=== PATIENT | female | born 1950 | race Caucasian/White ===

== ENCOUNTER 2016-04-20 20:23 | Emergency (ER) | payer MEDICARE, OTHER ==
[~2016-04-20] VITALS: Ht 167.6 cm; Wt 91.6 kg
[~2016-04-20 20:23] MED LIST: AC325T PO; AMOX500C2 PO; ASP325TEC PO; ASP81TEC PO; ATOR40TA PO; ATOR40TA70 PO; ATOR80TA PO; BSP10T PO; BUSP10TA95 PO; CLOP75TA PO; DICY20TA57 PO; EXEN2VIA SQ; FLUO20CA25; FLUO40CA PO; GABA-488 PO; GBPN300C PO; HYDR-2890 PO; INSU100V16 SQ; ISM30TCR PO; ISM60TCR PO; LEVE1U SQ; LIRA0.6P SQ; LURA60TA2 PO; METF-380 PO; METF500T4 PO; METO25TA2 PO; METO50TA2 PO; MTF500T PO; MTP50T PO; NTR.4SL SL; OMEG-12 PO; OMEG300C3 PO; ONDA-42 SL; OXYB5TAB9 PO; PANT40SU PO; PANT40TA PO; PNT40TEC PO; PROP40TA5 PO; QUIN20TA15 PO; QUIN20TA27 PO; TERB250T10 PO; TRAM50TA2 PO; VENL150C PO; VIT E PO; VIT PO
[2016-04-20] MEDS ORDERED: LACTATED RINGERS 1,000 ML IV ONE (20:55)
[2016-04-20] MEDS ORDERED: ONDANSETRON 4 MG/2 ML (SDV) Z0FRAN IVP ONE (21:00)
[2016-04-20] MEDS ORDERED: NS IV 1000 ML 1,000 ML IV ONE (21:11)
--- NOTE | 2016-04-20 21:21 | ED General ---
General Chief Complaint: Abdominal/GI Problems Stated Complaint: HEADACHE,NAUSEA,VOMITING Nursing Triage Note: PT STATES NVD SINCE LAST NIGHT. RESP ISSUES FOR OVER A WEEK. Nursing Sepsis Screen: No Definite Risk Source of Information: Patient History of Present Illness Time Seen by Provider: 20:55 Initial Comments PT ARRIVES VIA POV FROM HOME PT WITH MULTIPLE COMPLAINTS STATES SHE HAS HAD NAUSEA AND VOMITING AND HEADACHE AND ABDOMINAL PAIN SINCE LAST PM PT HAS HISTORY OF MIGRAINES AND THIS IS THE SAME HAS BEEN DX WITH DIABETIC GASTROPARESIS AND IS TO HAVE A CT OF ABDOMEN TOMORROW FOR ONGOING ABDOMINAL PAIN AND NAUSEA AND VOMITING SEEN SENIOR TECHNICAL RECRUITER [facility] EMERY YESTERDAY FOR ROUTINE EXAM AND CT WAS ORDERED AND INSULIN AND BP MEDICATION DOSES WERE INCREASED PT HAS NOT CHECKED HER BLOOD SUGAR IN A COUPLE OF DAYS--STATES "I DIDN'T FEEL LIKE IT" PT HAS NOT TAKEN ANY OF HER MEDICATIONS YESTERDAY OR TODAY FOR THE SAME REASON HAS NOT TAKEN ANYTHING FOR PAIN PT ALSO STATES SHE HAS HAD NON-PRODUCTIVE OUGH AND CONGESTION X 2 WEEKS NO FEVER NO CHEST PAIN NO SHORTNESS OF BREATH NO SWELLING IN FEET/ANKLES OR PAIN IN CALVES PT STATES SHE HAS COPD BUT DOES NOT TAKE ANY MEDICATIONS, INHALERS/NEBULIZERS, ETC. PCP: CECY-GALEN, SAE EMERY Allergies and Home Medications Allergies Coded Allergies: NSAIDS (Non-Steroidal Anti-Inflamma (Verified Allergy, Unknown, 02/12/11) codeine (Verified Allergy, Unknown, 08/01/13) Home Medications 500 MG PO BID (Reported) Atorvastatin Calcium 40 Mg Tablet 40 MG PO HS (Reported) Buspirone Hcl 10 Mg Tab #360 10 MG PO TID (Reported) Cefdinir 300 Mg Capsule #20 300 MG PO BID Prescribed by: KATHY LAST on 04/21/16 0002 Exenatide Microspheres 2 Mg Vial 2 MG SQ UD (Reported) Fluoxetine Hcl 20 Mg Capsule #270 (Reported) Gabapentin 300 Mg Capsule #810 900 MG PO TID (Reported) Insulin Aspart 100 Unit/1 Ml Susp 20 UNIT SQ PRN (Reported) Insulin Determir 100 U/Ml Insuln.pen 42 UNITS SQ BID (Reported) Lurasidone HCl 60 Mg Tablet 60 MG PO DAILY (Reported) Metformin Hcl 500 Mg Tablet #180 500 MG PO BID (Reported) Methylprednisolone 4 Mg Tab.ds.pk #1 4 MG PO UD Prescribed by: KATHY LAST on 04/21/16 0002 Metoprolol Tartrate 50 Mg Tablet #180 50 MG PO BID (Reported) [place]-3 Fatty Acids 300 Mg Capsule 300 MG PO TID (Reported) Ondansetron 4 Mg Tab.rapdis #10 4 MG PO Q4H Prescribed by: KATHY LAST on 04/21/16 0002 Oxybutynin Chloride Unknown Strength Tablet 5 MG PO BID (Reported) Pantoprazole Sodium 40 Mg Tablet.dr #270 40 MG PO BID (Reported) Quinapril Hcl 20 Mg Tablet #90 20 MG PO DAILY (Reported) Venlafaxine HCl 150 Mg Cap.er.24h 150 MG PO DAILY (Reported) Constitutional: no symptoms reportedNo chills, No diaphoresis, No dizziness, No fever EENTM: nose congestion see HPI Respiratory: see HPI coughNo dyspnea on exertion, No orthopnea, No phlegm, No short of breath, No wheezing Cardiovascular: no symptoms reportedNo chest pain, No edema, No palpitations, No syncope Gastrointestinal: see HPI abdominal pain (LUQ)No diarrhea, loss of appetite nausea vomiting Genitourinary: no symptoms reported Musculoskeletal: no symptoms reportedNo back pain, No neck pain Skin: no symptoms reported Psychiatric/Neurological: See HPI HeadacheDenies Numbness, Denies Paresthesia , Denies Seizure, Denies Tingling, Denies Tremors, Denies Weakness Hematologic/Lymphatic: No Symptoms Reported Immunological/Allergic: no symptoms reported Past Tnwnctb-Gxyitw-Oeujwn Hx Patient Social History Alcohol Use: Denies Use Recreational Drug Use: No Smoking Status: Never a Smoker Recent Foreign Travel: No Contact w/Someone Who Travel: No Recent Infectious Disease Expo: No Recent Hopitalizations: No Immunizations Up To Date Date of Pneumonia Vaccine: Jan 27, 2012 Date of Influenza Vaccine: Dec 17, 2015 Seasonal Allergies Seasonal Allergies: No Surgeries HX Surgeries: Yes (BILATERAL KNEE SCOPES, R SHOULDER; HYST/BSO; TEETH REMOVED; CARDIAC CATHS--STENTS X 4) Surgeries: Appendectomy, Cardiac, Coronary Stent, Gallbladder, Hysterectomy, Oophorectomy, Orthopedic Respiratory Hx Respiratory Disorders: Yes (SLEEP APNEA-USES CPAP) Respiratory Disorders: Sleep Apnea, COPD Cardiovascular Hx Cardiac Disorders: Yes (STENT PLACEMENT X4) Cardiac Disorders: Coronary Artery Disease, Heart Attack, High Cholesterol, Hypertension Neurological Hx Neurological Disorders: Yes Neurological Disorders: Headaches /Migraines, Neuropathy Reproductive System Hx Reproductive Disorders: No [employer] History: Hysterectomy, Menopausal Genitourinary Hx Genitourinary Disorders: No Gastrointestinal Hx Gastrointestinal Disorders: Yes Gastrointestinal Disorders: Gastroesophageal Reflux, Diverticulosis Musculoskeletal Hx Musculoskeletal Disorders: Yes ("COMPRESSED DISCS IN BACK" PER PT) Musculoskeletal Disorders: Degenerate Disk Disease, Chronic Back Pain Endocrine Hx Endocrine Disorders: Yes Endocrine Disorders: Diabetes, Insulin dep HEENT HX ENT Disorders: No Cancer Hx Cancer: No Psychosocial Hx Psychiatric Problems: Yes Behavioral Health Disorders: Anxiety, Depression Integumentary HX Skin/Integumentary Disorder: No Blood Transfusions Hx Blood Disorders: No Family Medical History Family Medial History: Cancer 19 MOTHER Cancer of colon 19 MOTHER Cataract 19 MOTHER Chest pain G8 SISTER Family history: Arthritis 19 FATHER 19 MOTHER G8 SISTER Family history: Cardiovascular disease 19 FATHER 19 MOTHER Family history: Gastrointestinal disease 19 MOTHER Family history: Hypertension 19 MOTHER Family history: Osteoporosis 19 MOTHER Family history: Thyroid disorder G8 SISTER Headache 19 FATHER 19 MOTHER G8 SISTER Hearing loss 19 MOTHER Heart disease 19 FATHER History of - respiratory disease G8 SISTER Hypercholesterolemia 19 FATHER 19 MOTHER Visual impairment 19 MOTHER No Family History of: Abdominal aortic aneurysm Dare's disease Alcoholism Aphasia Congenital heart disease Congestive heart failure Cystic fibrosis Dementia Dysphagia Family history: Allergy Family history: Alzheimer's disease Family history: Asthma Family history: Breast disease Family history: Coronary thrombosis Family history: Glaucoma Hereditary disease History of - anemia History of - disorder History of drug abuse Human immunodeficiency virus (HIV) seropositivity Infertile Kidney disease Malignant neoplasm of lung Myocardial infarction Parkinson's disease Prostate cancer Psychotic disorder Seizure disorder Stroke Tuberculosis Physical Exam Vital Signs Vital Sign - Last 12Hours 04/20/16 04/20/16 20:58 21:05 Temp 97.2 Pulse 114 Resp 22 B/P 164/89 Pulse Ox 94 O2 Delivery Room Air O2 Flow Rate 2 Capillary Refill : Less Than 3 Seconds General Appearance: Obese Other (EXTREMELY DRAMATIC--WAILING AND MOANING VERY LOUDLY CONTINUOUSLY-STOPS WHEN DISTRACTED. DOES NOT MAKE EYE CONTACT--KEEPS A STUFFED ANIMAL OVER HER EYES. BUT NOT ACTUALLY PHOTOPHOBIC WHEN THIS IS REMOVED. ) HEENT: PERRL/EOMINo Photophobia, Other (EDENTULOUS. ORAL MUCOSA MOIST) Neck: Full Range of Motion Normal Inspection Non Tender Supple Respiratory: Normal Breath Sounds No Accessory Muscle Use No Respiratory Distress Cardiovascular: No Edema No JVD No Murmur Normal Peripheral Pulses Tachycardia Gastrointestinal: Normal Bowel Sounds No Organomegaly No Pulsatile Mass Soft Tenderness (LUQ) Back: Normal Inspection No CVA Tenderness No Vertebral Tenderness Extremity: Normal Capillary Refill Normal Inspection Normal Range of Motion Non Tender No Calf Tenderness No Pedal Edema Neurologic/Psychiatric: Alert Oriented x3 No Motor/Sensory Deficits staff trainer II- XII Norm as Tested Skin: Normal ColorNo Rash Progress/Results/Core Measures Results/Orders Lab Results Laboratory Tests Test 04/20/16 21:15 04/20/16 21:25 Range/Units Activated Partial Thromboplast Time 29 24-35 SEC Alanine Aminotransferase (ALT/SGPT) 55 0-55 U/L Albumin 4.2 3.2-4.5 G/DL Alkaline Phosphatase 51 40-136 U/L Amylase Level 25 25-125 U/L Anion Gap 17 H 5-14 MMOL/L Aspartate Amino Transf (AST/SGOT) 40 H 5-34 U/L BUN/Creatinine Ratio 10 Basophils # (Auto) 0.0 0.0-0.1 10^3/uL Basophils (%) (Auto) 0 0-10 % Blood Urea Nitrogen 9 7-18 MG/DL Calcium Level 9.2 8.5-10.1 MG/DL Carbon Dioxide Level 17 L 21-32 MMOL/L Chloride Level 102 98-107 MMOL/L Creatinine 0.87 0.60-1.30 MG/DL Eosinophils # (Auto) 0.0 0.0-0.3 10^3/uL Eosinophils (%) (Auto) 0 0-10 % Estimat Glomerular Filtration Rate > 60 Glucometer 328 H 70-110 MG/DL Glucose Level 346 H 70-105 MG/DL Hematocrit 39 35-52 % Hemoglobin 12.7 11.5-16.0 G/DL INR Comment 1.0 0.8-1.4 Lactic Acid Level 1.4 0.5-2.0 MMOL/L Lipase 14 8-78 U/L Lymphocytes # (Auto) 0.5 L 1.0-4.0 X 10^3 Lymphocytes (%) (Auto) 9 L 12-44 % Magnesium Level 1.7 L 1.8-2.4 MG/DL Mean Corpuscular Hemoglobin 30 25-34 PG Mean Corpuscular Hemoglobin Concent 33 32-36 G/DL Mean Corpuscular Volume 92 80-99 FL Mean Platelet Volume 10.0 7.4-10.4 FL Monocytes # (Auto) 0.6 0.0-1.0 X 10^3 Monocytes (%) (Auto) 10 0-12 % Neutrophils # (Auto) 4.6 1.8-7.8 X 10^3 Neutrophils (%) (Auto) 80 H 42-75 % Platelet Count 196 130-400 10^3/uL Potassium Level 3.6 3.6-5.0 MMOL/L Prothrombin Time 12.7 12.2-14.7 SEC Red Blood Count 4.18 L 4.35-5.85 10^6/uL Red Cell Distribution Width 12.7 10.0-14.5 % Sodium Level 136 135-145 MMOL/L Total Bilirubin 0.5 0.1-1.0 MG/DL Total Protein 7.6 6.4-8.2 G/DL White Blood Count 5.7 4.3-11.0 10^3/uL Urine Bacteria TRACE /HPF Urine Bilirubin NEGATIVE NEGATIVE Urine Casts PRESENT /LPF Urine Clarity CLEAR Urine Color YELLOW Urine Crystals NONE /LPF Urine Culture Indicated NO Urine Glucose (UA) 4+ H NEGATIVE Urine Granular Casts RARE /LPF Urine Hyaline Casts 2-5 H /LPF Urine Ketones 4+ H NEGATIVE Urine Leukocyte Esterase NEGATIVE NEGATIVE Urine Mucus NEGATIVE /LPF Urine Nitrite NEGATIVE NEGATIVE Urine Protein 2+ H NEGATIVE Urine RBC NONE /HPF Urine RBC (Auto) 2+ H NEGATIVE Urine Specific [place] 1.020 1.016-1.022 Urine Squamous Epithelial Cells RARE /HPF Urine Urobilinogen NORMAL NORMAL MG/DL Urine WBC NONE /HPF Urine pH 5 5-9 Micro Results Microbiology 04/20/16 Influenza Types A,B Antigen (TREVER) - Final, Complete My Orders Orders-KATHY LAST DO Saline Lock/Iv-Start (04/20/16 20:55) Monitor-Rhythm Ecg Trace Only (04/20/16 20:55) Amylase (04/20/16 20:55) Cbc With Automated Diff (04/20/16 20:55) Comprehensive Metabolic Panel (04/20/16 20:55) Lactic Acid Analyzer (04/20/16 20:55) Lipase (04/20/16 20:55) Magnesium (04/20/16 20:55) Ua Culture If Indicated (04/20/16 20:55) Blood Culture (04/20/16 20:55) Influenza A And B Antigens (04/20/16 20:55) Ondansetron Injection (Zofran Injectio (04/20/16 21:00) Saline Lock/Iv-Start (04/20/16 20:55) Lactated Ringers (Lr 1000 Ml Iv Solution (04/20/16 20:55) Accucheck Stat ONCE (04/20/16 21:08) Ekg Tracing (04/20/16 21:08) O2 (04/20/16 21:08) Protime With Inr (04/20/16 21:08) Partial Thromboplastin Time (04/20/16 21:08) Saline Lock/Iv-Start (04/20/16 21:11) Ns Iv 1000 Ml (Sodium Chloride 0.9%) (04/20/16 21:11) Ct Abdomen/Pelvis W (04/20/16 21:52) Ct Head Wo (04/20/16 21:52) Chest Pa/Lat (2 View) (04/20/16 21:52) Iohexol Injection (Omnipaque 350 Mg/Ml 1 (04/20/16 22:00) Ns (Ivpb) (Sodium Chloride 0.9% Ivpb Bag (04/20/16 22:00) Insulin (Regular) Human (Humulin R (Per (04/20/16 22:45) Insulin (Regular) Human (Humulin R (Per (04/20/16 22:45) Morphine Injection (Morphine Injection (04/20/16 22:56) Ceftriaxone Injection (Rocephin Injectio (04/20/16 23:45) Methylprednisolone Sod Succ (Solu-Medrol (04/20/16 23:33) Rx-Tramadol Hcl (Rx-Ultram) (04/20/16 23:57) Rx-Ondansetron Po (Rx-Zofran Po) (04/20/16 23:57) Accucheck Stat ONCE (04/20/16 23:57) Medications Given in ED Current Medications Medications Dose Ordered Sig/Hilda Route Start Time Stop Time Status Last Admin Dose Admin Ceftriaxone Sodium/Sodium Chloride 50 ml @ 100 mls/hr ONCE ONCE IV 04/20/16 23:45 04/21/16 00:14 DC 04/20/16 23:43 100 MLS/HR Insulin Human Regular 15 unit 15 unit ONCE ONCE IV 04/20/16 22:45 04/20/16 22:46 DC 04/20/16 23:12 15 UNIT Iohexol 100 ml ONCE ONCE IV 04/20/16 22:00 04/21/16 00:54 DC 04/20/16 22:16 100 ML Ondansetron HCl 4 mg 4 mg ONCE ONCE IVP 04/20/16 21:00 04/20/16 21:01 DC 04/20/16 21:32 4 MG Sodium Chloride 100 ml ONCE ONCE IV 04/20/16 22:00 04/21/16 00:54 DC 04/20/16 22:16 100 ML Sodium Chloride 1,000 ml @ 0 mls/hr Q0M ONCE IV 04/20/16 21:11 04/20/16 21:12 DC 04/20/16 21:32 1,000 MLS/HR Vital Signs/I&O Vital Sign - Last 12Hours 04/20/16 04/20/16 04/21/16 20:58 21:05 00:20 Temp 97.2 Pulse 114 108 Resp 22 16 B/P 164/89 Pulse Ox 94 93 97 O2 Delivery Room Air Nasal Cannula O2 Flow Rate 2 Blood Pressure Mean: 114 Point of Care Testing Finger Stick Blood Glucose: 328 Blood Glucose Action Taken: INFORMED Progress Note : Progress Note ACCUCHECK 348 ON ARRIVAL 2244--WAILING AND MOANING AGAIN--C/O "MIGRAINE" AND LEFT SIDE PAIN--MIGRAINES ARE CHRONIC AND ABDOMINAL PAIN IS ONGOING ISSUE AND NEITHER ARE ACUTE PAIN EASED AT DISMISSAL NO VOMITING DURING ENTIRE ER STAY Diagnostic Imaging Comments CT HEAD--NO ACUTE PROCESS, MILD ETHMOID SINUS DISEASE--PER [facility] VIA FAX @ 9199 CT ABDOMEN/ PELVIS--NO ACUTE PROCESS, DIVERTICULAR DISEASE, FATTY LIVER, SMALL HIATAL HERNIA--PER [facility] VIA FAX @ [id number] Reviewed: Reviewed by Me Departure Impression Impression: Primary Impression: Bronchitis Additional Impressions: Nausea & vomiting H/O diabetic gastroparesis Headache Disposition: HOME, SELF-CARE (ERASED) Condition: Improved Departure-Patient Inst. Referrals: THERON CHAMPION MD (PCP/Family) Primary Care Physician Patient Instructions: Acute Bronchitis, Adult (DC), Diabetes and Infections, Gastroparesis (Delayed Gastric Emptying) (DC), Nausea and Vomiting, Adult (DC), Sick Day Management for Diabetics Add. Discharge Instructions: LOTS OF CLEAR LIQUIDS--WATER, BROTH, JELLO, GATORADE TOMORROW IF YOU ARE BETTER, ADD BRATS DIET TO CLEAR LIQUIDS TAKE YOUR MEDICATIONS PRESCRIBED--DO NOT MISS DOSES OF MEDICATIONS CHECK YOUR BLOOD SUGAR 4 TIMES A DAY--BEFORE EACH MEAL AND AT BEDTIME--KEEP DIARY TYLENOL NEEDED FOR PAIN FOLLOW UP WITH [facility] IN 2-3 DAYS FOR FURTHER CARE All discharge instructions reviewed with patient and/or family. Voiced understanding. Scripts Ondansetron (Zofran Odt)4 Mg Tab.rapdis4 Mg PO Q4H Nausea/Vomiting #10 TAB Prov:KATHY LAST DO 04/21/16 Methylprednisolone (Medrol)4 Mg Tab.ds.pk4 Mg PO UD #1 PKG Prov:KATHY LAST DO 04/21/16 Cefdinir 300 Mg [id number] Mg PO BID FOR INFECTION #20 CAP Prov:KATHY LAST DO 04/21/16 KATHY LAST DO Apr 20, 2016 21:21
[2016-04-20 21:24] LABS: BASOPHILS % (AUTO) 0 % (0-10); EOSINOPHILS % (AUTO) 0 % (0-10); LYMPHOCYTES # (AUTO) 0.5 X 10^3 (1.0-4.0); LYMPHOCYTES % (AUTO) 9 % (12-44); MEAN CORPUSCULAR HEMOGLOBIN 30 PG (25-34); MEAN CORPUSCULAR HGB CONC 33 G/DL (32-36); MEAN CORPUSCULAR VOLUME 92 FL (80-99); MONOCYTES # (AUTO) 0.6 X 10^3 (0.0-1.0); MONOCYTES % (AUTO) 10 % (0-12); NEUTROPHILS # (AUTO) 4.6 X 10^3 (1.8-7.8); NEUTROPHILS % (AUTO) 80 % (42-75); PLATELET COUNT 196 10^3/uL (130-400); RED BLOOD COUNT 4.18 10^6/uL (4.35-5.85); RED CELL DISTRIBUTION WIDTH 12.7 % (10.0-14.5); WHITE BLOOD COUNT 5.7 10^3/uL (4.3-11.0)
[2016-04-20 21:37] LABS: PROTHROMBIN TIME PATIENT 12.7 SEC (12.2-14.7)
[2016-04-20 21:45] LABS: BILIRUBIN,URINE NEGATIVE (NEGATIVE); KETONES,URINE 4+ (NEGATIVE); LEUKOCYTE ESTERASE ,URINE NEGATIVE (NEGATIVE); NITRITE,URINE NEGATIVE (NEGATIVE); PH,URINE 5 (5-9); PROTEIN,URINE 2+ (NEGATIVE); UROBILINOGEN,URINE NORMAL (NORMAL)
[2016-04-20 21:46] LABS: ALANINE AMINOTRANSFERASE 55 U/L (0-55); ALBUMIN 4.2 G/DL (3.2-4.5); AMYLASE 25 U/L (25-125); ANION GAP 17 MMOL/L (5-14); ASPARTATE AMINO TRANSFERASE 40 U/L (5-34); BILIRUBIN,TOTAL 0.5 MG/DL (0.1-1.0); BLOOD UREA NITROGEN 9 MG/DL (7-18); BUN/CREATININE RATIO 10; CALCIUM 9.2 MG/DL (8.5-10.1); CARBON DIOXIDE 17 MMOL/L (21-32); CHLORIDE 102 MMOL/L (98-107); CREATININE SERUM 0.87 MG/DL (0.60-1.30); GFR ESTIMATED > 60; GLUCOSE 346 MG/DL (70-105); LIPASE 14 U/L (8-78); MAGNESIUM 1.7 MG/DL (1.8-2.4); POTASSIUM 3.6 MMOL/L (3.6-5.0); SODIUM 136 MMOL/L (135-145); TOTAL PROTEIN 7.6 G/DL (6.4-8.2)
[2016-04-20 21:53] LABS: GRANULAR CASTS,URINE RARE /LPF; SQUAMOUS EPITHELIAL CELL,UR RARE /HPF
[2016-04-20] MEDS ORDERED: IOHEXOL 350 MG/ML 100 ML (OMNIPAQUE 350) VIAL IV ONE (22:00)
[2016-04-20] MEDS ORDERED: NS 100 ML (IVPB) BAG IV ONE (22:00)
[2016-04-20] MEDS ORDERED: inSUlin (REGULAR) HUMAN 1 UNIT/0.01 ML (CHARGE PER UNIT) IV ONE ×2 (22:45)
[2016-04-20] MEDS ORDERED: morphine INJ 10 MG/ML 1ML (SYR OR VIAL) IVP STA (22:56)
[2016-04-20] MEDS ORDERED: methylPREDNISolone 125 MG (Solu-MEDROL) VIAL IV STA (23:33)
[2016-04-20] MEDS ORDERED: cefTRIAXone INJECTION 1,000 MG in NS (IVPB) 50 ML IV ONE (23:45)
[2016-04-20] MEDS ORDERED: RX-TRAMADOL 50 MG (ULTRAM) TAB PPK#4 PO STA (23:57)
[2016-04-20] MEDS ORDERED: RX-ONDANSETRON 4 MG ODT (ZOFRAN) PPK #4 PO STA (23:57)
[2016-04-21] MEDS ORDERED: CEFD300C3 PO (00:02)
[2016-04-21] MEDS ORDERED: METH4TAB PO (00:02)
[2016-04-21] MEDS ORDERED: ONDA4TAB8 PO (00:02)
[2016-04-21 00:20] VITALS: BP 140/75
--- NOTE | 2016-04-21 07:46 | Diagnostic Imaging Report ---
PROCEDURE: CT abdomen and pelvis with contrast. TECHNIQUE: Multiple contiguous axial images were obtained through the abdomen and pelvis after administration of intravenous contrast. INDICATION: Abdominal pain with nausea and emesis There is minimal dependent atelectasis in the lung bases. Low density seen throughout the liver without focal hepatic or splenic abnormality. Gallbladder surgically absent. There is no evidence of pancreatic, adrenal or renal lesion. There is moderate aortoiliac atherosclerotic calcification. No evidence of free fluid or abscess in the abdomen or pelvis. There are occasional sigmoid diverticula. No pericolonic inflammation is seen. IMPRESSION: Fatty infiltration of the liver without CT evidence of acute abdominal or pelvic abnormality. Dictated by: Dictated on workstation # [id number]
--- NOTE | 2016-04-21 07:47 | Diagnostic Imaging Report ---
PROCEDURE: CT head without contrast. TECHNIQUE: Multiple contiguous axial images were obtained through the brain without the use of intravenous contrast. INDICATION: Headaches. FINDINGS: Ventricles and sulci are prominent. There is low-density in the white matter of both hemispheres. No hemorrhage is identified. There is no territorial infarct. Calvarium is intact. There is no paranasal sinus air-fluid level. IMPRESSION: No CT evidence of acute intracranial abnormality. Dictated by: Dictated on workstation # [id number]
--- NOTE | 2016-04-21 08:10 | Diagnostic Imaging Report ---
INDICATION: Cough and shortness of breath PA and lateral chest obtained at 1018 PM. Heart and mediastinal silhouette are normal in appearance. The lungs are clear. There is no pneumothorax or pleural fluid. IMPRESSION: Negative chest. Dictated by: Dictated on workstation # [id number]
== END 2016-04-21 00:20 | disposition home or self-care (01) ==
LOC: EDUNIT# 20:23 → ER 20:24
DX: J40 Bronchitis, not specified as acute or chronic (principal); R11.2 Nausea with vomiting, unspecified; R51 Headache; K57.30 Diverticulosis of large intestine without perforation or abscess without bleeding; K76.0 Fatty (change of) liver, not elsewhere classified; E11.9 Type 2 diabetes mellitus without complications; I10 Essential (primary) hypertension; J44.9 Chronic obstructive pulmonary disease, unspecified; K44.9 Diaphragmatic hernia without obstruction or gangrene; Z79.4 Long term (current) use of insulin; Z79.84 Long term (current) use of oral hypoglycemic drugs; Z79.899 Other long term (current) drug therapy; Z95.5 Presence of coronary angioplasty implant and graft
CPT/HCPCS: 36415; 70450; 71020; 74177; 80053; 81000; 82150; 82962; 83605; 83690; 83735; 85025; 85610; 85730; 87040; 87804; 93005; 93041; 96365; 96375

== ENCOUNTER 2016-05-07 16:49 | Emergency (ER) | payer MEDICARE, OTHER ==
[~2016-05-07] VITALS: Ht 170.2 cm; Wt 91.6 kg
[~2016-05-07 16:49] MED LIST changes: +CEFD300C3 PO; +METH4TAB PO; +ONDA4TAB8 PO
--- NOTE | 2016-05-07 17:21 | ED GU-Female ---
General Chief Complaint: Abdominal/GI Problems Stated Complaint: LOWER R QUAD PAIN Nursing Triage Note: PT CO OF CONSTIPATION FOR 1 WEEK, PT STATES HAS HAD ENEMA,MAG CITRATE W NO RELIEF, PT CO OF ABD PAIN, STATES BARELY PASSING GAS Nursing Sepsis Screen: No Definite Risk Source: patient Exam Limitations: no limitations History of Present Illness Time seen by provider: 17:21 Initial Comments 65-year-old female patient presents to the emergency department with complaints of constipation for approximately one week. Patient reports trying over-the- counter enemas and magnesium citrate without improvement in symptoms. Now complains of abdominal pain and bloating. Timing/Duration: week, getting worse Severity/Quality: aching, cramping Location: other (generalized abdomen.) Radiation: none Activities at Onset: none Prior Genitourinary Problems: similar symptoms Modifying Factors: Worsens With Movement, Worsens With Palpation Allergies and Home Medications Allergies Coded Allergies: NSAIDS (Non-Steroidal Anti-Inflamma (Verified Allergy, Unknown, 02/12/11) codeine (Verified Allergy, Unknown, 08/01/13) Home Medications 500 MG PO BID (Reported) Atorvastatin Calcium 40 Mg Tablet 40 MG PO HS (Reported) Buspirone Hcl 10 Mg Tab #360 10 MG PO TID (Reported) Exenatide Microspheres 2 Mg Vial 2 MG SQ UD (Reported) Fluoxetine Hcl 20 Mg Capsule #270 (Reported) Gabapentin 300 Mg Capsule #810 900 MG PO TID (Reported) Insulin Aspart 100 Unit/1 Ml Susp 20 UNIT SQ PRN (Reported) Insulin Determir 100 U/Ml Insuln.pen 42 UNITS SQ BID (Reported) Lidocaine 15 Gm Cream..g. #1 15 GM TP UD PRN PRN PAIN Apply to the anus every 6 hours when necessary pain Prescribed by: NAMITA ALANIZ on 05/07/162037 Lurasidone HCl 60 Mg Tablet 60 MG PO DAILY (Reported) Metformin Hcl 500 Mg Tablet #180 500 MG PO BID (Reported) Metoprolol Tartrate 50 Mg Tablet #180 50 MG PO BID (Reported) [place]-3 Fatty Acids 300 Mg Capsule 300 MG PO TID (Reported) Ondansetron 8 Mg Tab.rapdis #10 8 MG PO Q6H PRN PRN NAUSEA Prescribed by: NAMITA ALANIZ on 05/07/162037 Oxybutynin Chloride Unknown Strength Tablet 5 MG PO BID (Reported) Pantoprazole Sodium 40 Mg Tablet. #270 40 MG PO BID (Reported) Polyethylene Glycol 3350 119 Gm Powder #1 17 GM PO HS PRN PRN CONSTIPATION Prescribed by: NAMITA ALANIZ on 05/07/162037 Quinapril Hcl 20 Mg Tablet #90 20 MG PO DAILY (Reported) Venlafaxine HCl 150 Mg Cap.er.24h 150 MG PO DAILY (Reported) Constitutional: No diaphoresis, No fever, No malaise, No weakness Respiratory: No cough, No short of breath Cardiovascular: No chest pain, No palpitations, No syncope Gastrointestinal: see HPI abdominal pain constipationNo diarrhea, No hematemesis, No melena, No nausea, No vomiting Genitourinary: denies burning, denies dysuria, denies frequency, denies flank pain, denies hematuria Musculoskeletal: no symptoms reported Skin: no symptoms reported Psychiatric/Neurological: No Symptoms Reported All Other Systemes Reviewed Negative Unless Noted: Yes (Negative excepted noted.) Past Dctzqqs-Zhhvrf-Pllxfj Hx Patient Social History Alcohol Use: Denies Use Recreational Drug Use: No Smoking Status: Never a Smoker Recent Foreign Travel: No Contact w/Someone Who Travel: No Recent Infectious Disease Expo: No Recent Hopitalizations: No Immunizations Up To Date Date of Pneumonia Vaccine: Jan 27, 2012 Date of Influenza Vaccine: Dec 17, 2015 Seasonal Allergies Seasonal Allergies: No Surgeries HX Surgeries: Yes Surgeries: Appendectomy, Cardiac, Coronary Stent, Gallbladder, Hysterectomy, Oophorectomy, Orthopedic Respiratory Hx Respiratory Disorders: Yes (SLEEP APNEA-USES CPAP) Respiratory Disorders: Sleep Apnea, COPD Cardiovascular Hx Cardiac Disorders: Yes (STENT PLACEMENT X4) Cardiac Disorders: Coronary Artery Disease, Heart Attack, High Cholesterol, Hypertension Neurological Hx Neurological Disorders: Yes Neurological Disorders: Headaches /Migraines, Neuropathy Reproductive System Hx Reproductive Disorders: 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, 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 Genitourinary Hx Genitourinary Disorders: No Gastrointestinal Hx Gastrointestinal Disorders: Yes Gastrointestinal Disorders: Gastroesophageal Reflux, Diverticulosis Musculoskeletal Hx Musculoskeletal Disorders: Yes ("COMPRESSED DISCS IN BACK" PER PT) Musculoskeletal Disorders: Degenerate Disk Disease, Chronic Back Pain Endocrine Hx Endocrine Disorders: Yes Endocrine Disorders: Diabetes, Insulin dep HEENT HX ENT Disorders: No Cancer Hx Cancer: No Psychosocial Hx Psychiatric Problems: Yes Behavioral Health Disorders: Anxiety, Depression Integumentary HX Skin/Integumentary Disorder: No Blood Transfusions Hx Blood Disorders: No Reviewed Nursing Assessment Reviewed/Agree w Nursing PMH: Yes Family Medical History Significant Family History: No Pertinent Family Hx Family Medial History: Cancer 19 MOTHER Cancer of colon 19 MOTHER Cataract 19 MOTHER Chest pain G8 SISTER Family history: Arthritis 19 FATHER 19 MOTHER G8 SISTER Family history: Cardiovascular disease 19 FATHER 19 MOTHER Family history: Gastrointestinal disease 19 MOTHER Family history: Hypertension 19 MOTHER Family history: Osteoporosis 19 MOTHER Family history: Thyroid disorder G8 SISTER Headache 19 FATHER 19 MOTHER G8 SISTER Hearing loss 19 MOTHER Heart disease 19 FATHER History of - respiratory disease G8 SISTER Hypercholesterolemia 19 FATHER 19 MOTHER Visual impairment 19 MOTHER No Family History of: Abdominal aortic aneurysm Mandan's disease Alcoholism Aphasia Congenital heart disease Congestive heart failure Cystic fibrosis Dementia Dysphagia Family history: Allergy Family history: Alzheimer's disease Family history: Asthma Family history: Breast disease Family history: Coronary thrombosis Family history: Glaucoma Hereditary disease History of - anemia History of - disorder History of drug abuse Human immunodeficiency virus (HIV) seropositivity Infertile Kidney disease Malignant neoplasm of lung Myocardial infarction Parkinson's disease Prostate cancer Psychotic disorder Seizure disorder Stroke Tuberculosis Physical Exam Vital Signs Vital Sign - Last 12Hours 05/07/16 17:00 Temp 97.1 Pulse 106 Resp 20 B/P 122/72 Pulse Ox 98 Capillary Refill : Less Than 3 Seconds General Appearance: WD/WN no apparent distress HEENT: PERRL/EOMI pharynx normal Neck: supple normal inspection Cardiovascular: regular rate, rhythm no edema no murmur Respiratory: lungs clear normal breath sounds no respiratory distress Gastrointestinal: distended guarding (generalized)No rebound, tenderness ( generalized) Back: normal inspection Extremities: no pedal edema normal capillary refill Neurologic/Psychiatric: alert normal mood/affect oriented x 3 Skin: normal color warm/dry Progress/Results/Core Measures Results/Orders Lab Results Laboratory Tests Test 05/07/16 18:08 05/07/16 19:59 Range/Units Alanine Aminotransferase (ALT/SGPT) 108 H 0-55 U/L Albumin 4.0 3.2-4.5 G/DL Alkaline Phosphatase 63 40-136 U/L Anion Gap 14 5-14 MMOL/L Aspartate Amino Transf (AST/SGOT) 48 H 5-34 U/L BUN/Creatinine Ratio 11 Basophils # (Auto) 0.0 0.0-0.1 10^3/uL Basophils (%) (Auto) 0 0-10 % Blood Urea Nitrogen 10 7-18 MG/DL Calcium Level 9.7 8.5-10.1 MG/DL Carbon Dioxide Level 20 L 21-32 MMOL/L Chloride Level 102 98-107 MMOL/L Creatinine 0.87 0.60-1.30 MG/DL Eosinophils # (Auto) 0.2 0.0-0.3 10^3/uL Eosinophils (%) (Auto) 2 0-10 % Estimat Glomerular Filtration Rate > 60 Glucose Level 258 H 70-105 MG/DL Hematocrit 39 35-52 % Hemoglobin 12.9 11.5-16.0 G/DL Lipase 17 8-78 U/L Lymphocytes # (Auto) 1.8 1.0-4.0 X 10^3 Lymphocytes (%) (Auto) 15 12-44 % Mean Corpuscular Hemoglobin 31 25-34 PG Mean Corpuscular Hemoglobin Concent 33 32-36 G/DL Mean Corpuscular Volume 94 80-99 FL Mean Platelet Volume 9.9 7.4-10.4 FL Monocytes # (Auto) 0.8 0.0-1.0 X 10^3 Monocytes (%) (Auto) 7 0-12 % Neutrophils # (Auto) 9.4 H 1.8-7.8 X 10^3 Neutrophils (%) (Auto) 77 H 42-75 % Platelet Count 287 130-400 10^3/uL Potassium Level 4.6 3.6-5.0 MMOL/L Red Blood Count 4.21 L 4.35-5.85 10^6/uL Red Cell Distribution Width 12.4 10.0-14.5 % Sodium Level 136 135-145 MMOL/L Total Bilirubin 0.4 0.1-1.0 MG/DL Total Protein 7.3 6.4-8.2 G/DL White Blood Count 12.3 H 4.3-11.0 10^3/uL Urine Bacteria NONE /HPF Urine Bilirubin NEGATIVE NEGATIVE Urine Casts NONE /LPF Urine Clarity CLEAR Urine Color YELLOW Urine Crystals NONE /LPF Urine Culture Indicated NO Urine Glucose (UA) 3+ H NEGATIVE Urine Ketones NEGATIVE NEGATIVE Urine Leukocyte Esterase 1+ H NEGATIVE Urine Mucus NEGATIVE /LPF Urine Nitrite NEGATIVE NEGATIVE Urine Protein 2+ H NEGATIVE Urine RBC NONE /HPF Urine RBC (Auto) NEGATIVE NEGATIVE Urine Specific [place] 1.015 L 1.016-1.022 Urine Squamous Epithelial Cells 0-2 /HPF Urine Urobilinogen NORMAL NORMAL MG/DL Urine WBC 0-2 /HPF Urine pH 5 5-9 My Orders Orders-NAMITA ALANIZ Acute Abd Series (05/07/16 17:21) Cbc With Automated Diff (05/07/16 18:08) Comprehensive Metabolic Panel (05/07/16 18:08) Lipase (05/07/16 18:08) Saline Lock/Iv-Start (05/07/16 18:08) Ct Abdomen/Pelvis W (05/07/16 18:08) Fentanyl Injection (Sublimaze Injection (05/07/16 18:08) Saline Lock/Iv-Start (05/07/16 18:08) Iohexol Injection (Omnipaque 350 Mg/Ml 1 (05/07/16 18:45) Ns (Ivpb) (Sodium Chloride 0.9% Ivpb Bag (05/07/16 18:45) Bisacodyl Suppository (Dulcolax Supposit (05/07/16 20:30) Lactulose Oral Solution (Enulose Oral So (05/07/16 20:30) Medications Given in ED Current Medications Medications Dose Ordered Sig/Hilda Route Start Time Stop Time Status Last Admin Dose Admin Bisacodyl 20 mg ONCE ONCE RI 05/07/16 20:30 05/07/16 20:31 DC 05/07/16 20:45 20 MG Iohexol 100 ml ONCE ONCE IV 05/07/16 18:45 05/07/16 18:46 DC 05/07/16 19:10 100 ML Lactulose 10 gm ONCE ONCE PO 05/07/16 20:30 05/07/16 20:31 DC 05/07/16 20:45 10 GM Sodium Chloride 100 ml ONCE ONCE IV 05/07/16 18:45 05/07/16 18:46 DC 05/07/16 19:10 80 ML Vital Signs/I&O Vital Sign - Last 12Hours 05/07/16 17:00 Temp 97.1 Pulse 106 Resp 20 B/P 122/72 Pulse Ox 98 Blood Pressure Mean: 89 Diagnostic Imaging Diagonstic Imaging: Xray Plain Films/CT/US/NM/MRI: abdomen Comments FINDINGS: Frontal chest with upright and supine imaging of the abdomen. The chest is stable from previous imaging with no infiltrates or effusions. There is no free air beneath the diaphragm. There is evidence of previous cholecystectomy. There are multiple air-fluid levels within the right midabdomen. There is a large amount of stool throughout the colon, especially on the left in the rectosigmoid. Mild scoliotic deformity of the spine is noted. IMPRESSION: 1. Negative chest. 2. Nonspecific, nonobstructive bowel gas pattern with findings of constipation as well as nonspecific air-fluid levels in the right midabdomen, which could be due to a mild focal ileus or gastroenteritis, correlate with symptoms. Dictated by: Dictated on workstation # [id number] Reviewed: Reviewed by Me (radiology report reviewed by me.) Diagonstic Imaging: CT Plain Films/CT/US/NM/MRI: abdomen, c-spine Comments FINDINGS: Included views of the lung bases are clear. Note is made of calcified coronary and aortic atherosclerosis. CT abdomen: Large amount of air and stool is seen scattered throughout the colon. There are a few scattered colonic diverticula. There is, however, no CT evidence of acute diverticulitis. Normal appendix cannot be adequately identified, but there is no pericecal inflammation. Small bowel loops are nondistended. Liver is diffusely hypodense on this postcontrast exam. No focal hepatic mass-type lesions are seen. The kidneys, adrenal glands, spleen, and pancreas have a normal CT appearance. There is no loculated fluid collection, free fluid, or free air within the abdomen. No abnormal mesenteric or retroperitoneal adenopathy is seen. There is moderate scattered calcified aortic and arterial atherosclerosis. Bony structures show no acute abnormalities. CT pelvis: Urinary bladder is unopacified. There is no loculated fluid collection, free fluid, or free air within the pelvis. No abnormal adenopathy is seen. Note is made of large amount of stool within the rectum. Rectum measures approximately 6.7 x 7.2 cm in axial dimension. IMPRESSION: 1. Large amount of stool within the rectum and colon suspicious for underlying impaction/constipation. 2. No evidence of small bowel obstruction. 3. Hepatic steatosis. 4. Moderate calcified aortic, coronary, and arterial atherosclerosis. Correlation for underlying risk factors is recommended. 5. Colonic diverticulosis, but no CT evidence of acute diverticulitis. Dictated on workstation # [id number] Reviewed: Reviewed by Me (radiology report reviewed by me.) Departure Communication Progress Notes Laboratory and diagnostic findings discussed with the patient. Patient given two Dulcolax suppositories and 1 dose of lactulose in the emergency department. Proceed with discharge to home with follow-up as an outpatient with her primary care physician for recheck. All return precautions were discussed with the patient as described in the discharge instructions of this report. Patient voices understanding and agrees with the treatment plan. Impression Impression: Primary Impression: Fecal impaction Additional Impression: Abdominal pain Qualified Code: R10.84 - Generalized abdominal pain Disposition: HOME, SELF-CARE Condition: Improved Departure-Patient Inst. Decision time for Depature: 19:58 Referrals: THERON CHAMPION MD (PCP) Primary Care Physician JYOTSNA EMERY (Family) Primary Care Physician Patient Instructions: Acute Abdomen (Belly Pain), Adult (DC), Fecal Impaction ( DC) Add. Discharge Instructions: All discharge instructions reviewed with patient and/or family. Voiced understanding. Medications as directed. Colace 100 mg by mouth twice daily as needed for constipation. Drink plenty of fluids. Dulcolax [id number] daily as directed for severe constipation. Follow-up with your family practitioner for recheck as an outpatient and possible need for outpatient colonoscopy. Call for appointment time. Return to the emergency department for worsened pain, vomiting, fever, abdominal swelling, rectal bleeding, or any other concerns. Scripts Lidocaine (Recticare)15 Gm Cream..g.15 Gm TP UD PRN PAIN #1 TUBE Ref 0 Apply to the anus every 6 hours when necessary pain Prov:NAMITA ALANIZ 05/07/16 Ondansetron (Ondansetron Odt)8 Mg Tab.rapdis8 Mg PO Q6H PRN NAUSEA #10 TAB Ref 0 Prov:NAMITA ALANIZ 05/07/16 Polyethylene Glycol 3350 (Miralax)119 Gm Hgjeqk86 Gm PO HS PRN CONSTIPATION #1 EA Ref 0 Prov:NAMITA ALANIZ 05/07/16 NAMITA ALANIZ May 07, 2016 17:21
[2016-05-07] MEDS ORDERED: fentaNYL INJECTION 100 MCG/2 ML AMP IVP STA (18:08)
--- NOTE | 2016-05-07 18:09 | Diagnostic Imaging Report ---
INDICATION: Unable to have a bowel movement for a week. Low abdominal pain. History of appendectomy and cholecystectomy as well as hysterectomy. EXAMINATION: Abdominal series, 05/07/2016. COMPARISON: 04/20/2016. FINDINGS: Frontal chest with upright and supine imaging of the abdomen. The chest is stable from previous imaging with no infiltrates or effusions. There is no free air beneath the diaphragm. There is evidence of previous cholecystectomy. There are multiple air-fluid levels within the right midabdomen. There is a large amount of stool throughout the colon, especially on the left in the rectosigmoid. Mild scoliotic deformity of the spine is noted. IMPRESSION: 1. Negative chest. 2. Nonspecific, nonobstructive bowel gas pattern with findings of constipation as well as nonspecific air-fluid levels in the right midabdomen, which could be due to a mild focal ileus or gastroenteritis, correlate with symptoms. Dictated by: Dictated on workstation # [id number]
[2016-05-07 18:18] LABS: BASOPHILS % (AUTO) 0 % (0-10); EOSINOPHILS # (AUTO) 0.2 10^3/uL (0.0-0.3); EOSINOPHILS % (AUTO) 2 % (0-10); LYMPHOCYTES # (AUTO) 1.8 X 10^3 (1.0-4.0); LYMPHOCYTES % (AUTO) 15 % (12-44); MEAN CORPUSCULAR HEMOGLOBIN 31 PG (25-34); MEAN CORPUSCULAR HGB CONC 33 G/DL (32-36); MEAN CORPUSCULAR VOLUME 94 FL (80-99); MEAN PLATELET VOLUME 9.9 FL (7.4-10.4); MONOCYTES # (AUTO) 0.8 X 10^3 (0.0-1.0); MONOCYTES % (AUTO) 7 % (0-12); NEUTROPHILS # (AUTO) 9.4 X 10^3 (1.8-7.8); NEUTROPHILS % (AUTO) 77 % (42-75); PLATELET COUNT 287 10^3/uL (130-400); RED BLOOD COUNT 4.21 10^6/uL (4.35-5.85); RED CELL DISTRIBUTION WIDTH 12.4 % (10.0-14.5); WHITE BLOOD COUNT 12.3 10^3/uL (4.3-11.0)
[2016-05-07 18:39] LABS: ALANINE AMINOTRANSFERASE 108 U/L (0-55); ANION GAP 14 MMOL/L (5-14); ASPARTATE AMINO TRANSFERASE 48 U/L (5-34); BILIRUBIN,TOTAL 0.4 MG/DL (0.1-1.0); BLOOD UREA NITROGEN 10 MG/DL (7-18); BUN/CREATININE RATIO 11; CALCIUM 9.7 MG/DL (8.5-10.1); CARBON DIOXIDE 20 MMOL/L (21-32); CHLORIDE 102 MMOL/L (98-107); CREATININE SERUM 0.87 MG/DL (0.60-1.30); GFR ESTIMATED > 60; GLUCOSE 258 MG/DL (70-105); LIPASE 17 U/L (8-78); POTASSIUM 4.6 MMOL/L (3.6-5.0); SODIUM 136 MMOL/L (135-145); TOTAL PROTEIN 7.3 G/DL (6.4-8.2)
[2016-05-07] MEDS ORDERED: NS 100 ML (IVPB) BAG IV ONE (18:45)
[2016-05-07] MEDS ORDERED: IOHEXOL 350 MG/ML 100 ML (OMNIPAQUE 350) VIAL IV ONE (18:45)
--- NOTE | 2016-05-07 19:36 | Diagnostic Imaging Report ---
PROCEDURE: CT abdomen and pelvis with contrast. TECHNIQUE: Multiple contiguous axial images were obtained through the abdomen and pelvis after administration of intravenous contrast. INDICATION: Lower abdominal pain. Constipation. COMPARISON: 04/20/2016. FINDINGS: Included views of the lung bases are clear. Note is made of calcified coronary and aortic atherosclerosis. CT abdomen: Large amount of air and stool is seen scattered throughout the colon. There are a few scattered colonic diverticula. There is, however, no CT evidence of acute diverticulitis. Normal appendix cannot be adequately identified, but there is no pericecal inflammation. Small bowel loops are nondistended. Liver is diffusely hypodense on this postcontrast exam. No focal hepatic mass-type lesions are seen. The kidneys, adrenal glands, spleen, and pancreas have a normal CT appearance. There is no loculated fluid collection, free fluid, or free air within the abdomen. No abnormal mesenteric or retroperitoneal adenopathy is seen. There is moderate scattered calcified aortic and arterial atherosclerosis. Bony structures show no acute abnormalities. CT pelvis: Urinary bladder is unopacified. There is no loculated fluid collection, free fluid, or free air within the pelvis. No abnormal adenopathy is seen. Note is made of large amount of stool within the rectum. Rectum measures approximately 6.7 x 7.2 cm in axial dimension. IMPRESSION: 1. Large amount of stool within the rectum and colon suspicious for underlying impaction/constipation. 2. No evidence of small bowel obstruction. 3. Hepatic steatosis. 4. Moderate calcified aortic, coronary, and arterial atherosclerosis. Correlation for underlying risk factors is recommended. 5. Colonic diverticulosis, but no CT evidence of acute diverticulitis. Dictated by: Dictated on workstation # [id number]
[2016-05-07] MEDS ORDERED: POLY119P5 PO ×2 (19:59→20:38)
[2016-05-07 20:08] LABS: BILIRUBIN,URINE NEGATIVE (NEGATIVE); KETONES,URINE NEGATIVE (NEGATIVE); LEUKOCYTE ESTERASE ,URINE 1+ (NEGATIVE); NITRITE,URINE NEGATIVE (NEGATIVE); PH,URINE 5 (5-9); PROTEIN,URINE 2+ (NEGATIVE); UROBILINOGEN,URINE NORMAL (NORMAL)
[2016-05-07 20:16] LABS: SQUAMOUS EPITHELIAL CELL,UR 0-2 /HPF; WBC,URINE 0-2 /HPF
[2016-05-07] MEDS ORDERED: BISACODYL 10 MG SUPP (DULCOLAX) PR ONE (20:30)
[2016-05-07] MEDS ORDERED: LACTULOSE SYRUP 10GM/15ML (ENULOSE) 30ML UDC PO ONE (20:30)
[2016-05-07] MEDS ORDERED: ONDA8TAB13 PO (20:38)
[2016-05-07] MEDS ORDERED: LIDO15CR6 TP (20:38)
[2016-05-07 20:45] VITALS: BP 128/70
== END 2016-05-07 20:47 | disposition home or self-care (01) ==
LOC: EDUNIT# 16:49 → ER 16:50
DX: K56.41 Fecal impaction (principal); K76.0 Fatty (change of) liver, not elsewhere classified; I25.10 Atherosclerotic heart disease of native coronary artery without angina pectoris; I10 Essential (primary) hypertension; E11.9 Type 2 diabetes mellitus without complications; I70.0 Atherosclerosis of aorta; Z79.84 Long term (current) use of oral hypoglycemic drugs; Z79.4 Long term (current) use of insulin; Z79.899 Other long term (current) drug therapy; Z95.5 Presence of coronary angioplasty implant and graft
CPT/HCPCS: 36415; 74022; 74177; 80053; 81000; 83690; 85025; 96374

== ENCOUNTER 2016-05-08 13:30 | Emergency (ER) | payer MEDICARE, OTHER ==
[~2016-05-08] VITALS: Ht 170.2 cm; Wt 91.6 kg
[~2016-05-08 13:30] MED LIST changes: +LIDO15CR6 TP; +ONDA8TAB13 PO; +POLY119P5 PO
[2016-05-08] MEDS ORDERED: MINERAL OIL ENEMA 133 ML BTL PR ONE (14:45)
--- NOTE | 2016-05-08 15:42 | ED GI ---
General Chief Complaint: Rect Problems Stated Complaint: BOWEL IMPACTION Nursing Triage Note: pt reports was seen in ED LAST NIGHT FOR RECTAL/ABDOMINAL PAIN AND DIAGNOSED BY Mello ALANIZ WITH FECAL IMPACTION. PT REPORTS SHE WAS INSTRUCTED TO COME BACK IF THE SUPOSITORIES DID NOT WORK. PT REPORTS SHE IS HAS PAINFUL SPASMS NEAR HER RECTUM. Sepsis Screen: No Definite Risk Source of Information: Patient Exam Limitations: No Limitations History of Present Illness Time Seen By Provider: 15:41 Initial Comments To ER with reports of rectal pain. This is been ongoing for the past few days. She has a history of constipation and states that she's not had a bowel movement in about 2 weeks. She was seen here last night and diagnosed with fecal impaction and given suppositories. She went home and had very small bowel movement but returns today due to the rectal pain. No vomiting. Timing/Duration: 1-2 Days Severity/Quality: Severe Location: Other (rectal) Associated Symptoms: Denies Symptoms Allergies and Home Medications Allergies Coded Allergies: NSAIDS (Non-Steroidal Anti-Inflamma (Verified Allergy, Unknown, 02/12/11) codeine (Verified Allergy, Unknown, 08/01/13) Home Medications 500 MG PO BID (Reported) Atorvastatin Calcium 40 Mg Tablet 40 MG PO HS (Reported) Buspirone Hcl 10 Mg Tab #360 10 MG PO TID (Reported) Exenatide Microspheres 2 Mg Vial 2 MG SQ UD (Reported) Fluoxetine Hcl 20 Mg Capsule #270 (Reported) Gabapentin 300 Mg Capsule #810 900 MG PO TID (Reported) Insulin Aspart 100 Unit/1 Ml Susp 20 UNIT SQ PRN (Reported) Insulin Determir 100 U/Ml Insuln.pen 42 UNITS SQ BID (Reported) Lidocaine 15 Gm Cream..g. #1 15 GM TP UD PRN PRN PAIN Apply to the anus every 6 hours when necessary pain Prescribed by: NAMITA ALANIZ on 05/07/162037 Lurasidone HCl 60 Mg Tablet 60 MG PO DAILY (Reported) Metformin Hcl 500 Mg Tablet #180 500 MG PO BID (Reported) Metoprolol Tartrate 50 Mg Tablet #180 50 MG PO BID (Reported) Carmel-3 Fatty Acids 300 Mg Capsule 300 MG PO TID (Reported) Ondansetron 8 Mg Tab.rapdis #10 8 MG PO Q6H PRN PRN NAUSEA Prescribed by: NAMITA ALANIZ on 05/07/162037 Oxybutynin Chloride Unknown Strength Tablet 5 MG PO BID (Reported) Pantoprazole Sodium 40 Mg Tablet. #270 40 MG PO BID (Reported) Polyethylene Glycol 3350 119 Gm Powder #1 17 GM PO HS PRN PRN CONSTIPATION Prescribed by: NAMITA ALANIZ on 05/07/162037 Quinapril Hcl 20 Mg Tablet #90 20 MG PO DAILY (Reported) Venlafaxine HCl 150 Mg Cap.er.24h 150 MG PO DAILY (Reported) Review of Systems Constitutional: see HPI EENTM: No Symptoms Reported Respiratory: No Symptoms Reported Cardiovascular: No Symptoms Reported Gastrointestinal: See HPI Abdominal Pain ConstipatedDenies Diarrhea, Denies Nausea Genitourinary: No Symptoms Reported Musculoskeletal: no symptoms reported Skin: no symptoms reported Psychiatric/Neurological: No Symptoms Reported Endocrine: No Symptoms Reported Hematologic/Lymphatic: No Symptoms Reported Past Sgkbvql-Pgyncu-Eovqet Hx Patient Social History Alcohol Use: Denies Use Recreational Drug Use: No Smoking Status: Never a Smoker Recent Foreign Travel: No Contact w/Someone Who Travel: No Recent Infectious Disease Expo: No Recent Hopitalizations: No Immunizations Up To Date Date of Pneumonia Vaccine: Jan 27, 2012 Date of Influenza Vaccine: Dec 17, 2015 Seasonal Allergies Seasonal Allergies: No Surgeries HX Surgeries: Yes Surgeries: Appendectomy, Cardiac, Coronary Stent, Gallbladder, Hysterectomy, Oophorectomy, Orthopedic Respiratory Hx Respiratory Disorders: Yes (SLEEP APNEA-USES CPAP) Respiratory Disorders: Sleep Apnea, COPD Cardiovascular Hx Cardiac Disorders: Yes (STENT PLACEMENT X4) Cardiac Disorders: Coronary Artery Disease, Heart Attack, High Cholesterol, Hypertension Neurological Hx Neurological Disorders: Yes Neurological Disorders: Headaches /Migraines, Neuropathy Reproductive System Hx Reproductive Disorders: No 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, 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 Genitourinary Hx Genitourinary Disorders: No Gastrointestinal Hx Gastrointestinal Disorders: Yes Gastrointestinal Disorders: Gastroesophageal Reflux, Diverticulosis Musculoskeletal Hx Musculoskeletal Disorders: Yes ("COMPRESSED DISCS IN BACK" PER PT) Musculoskeletal Disorders: Degenerate Disk Disease, Chronic Back Pain Endocrine Hx Endocrine Disorders: Yes Endocrine Disorders: Diabetes, Insulin dep HEENT HX ENT Disorders: No Cancer Hx Cancer: No Psychosocial Hx Psychiatric Problems: Yes Behavioral Health Disorders: Anxiety, Depression Integumentary HX Skin/Integumentary Disorder: No Blood Transfusions Hx Blood Disorders: No Family Medical History Significant Family History: No Pertinent Family Hx Family Medial History: Cancer 19 MOTHER Cancer of colon 19 MOTHER Cataract 19 MOTHER Chest pain G8 SISTER Family history: Arthritis 19 FATHER 19 MOTHER G8 SISTER Family history: Cardiovascular disease 19 FATHER 19 MOTHER Family history: Gastrointestinal disease 19 MOTHER Family history: Hypertension 19 MOTHER Family history: Osteoporosis 19 MOTHER Family history: Thyroid disorder G8 SISTER Headache 19 FATHER 19 MOTHER G8 SISTER Hearing loss 19 MOTHER Heart disease 19 FATHER History of - respiratory disease G8 SISTER Hypercholesterolemia 19 FATHER 19 MOTHER Visual impairment 19 MOTHER No Family History of: Abdominal aortic aneurysm Brooks's disease Alcoholism Aphasia Congenital heart disease Congestive heart failure Cystic fibrosis Dementia Dysphagia Family history: Allergy Family history: Alzheimer's disease Family history: Asthma Family history: Breast disease Family history: Coronary thrombosis Family history: Glaucoma Hereditary disease History of - anemia History of - disorder History of drug abuse Human immunodeficiency virus (HIV) seropositivity Infertile Kidney disease Malignant neoplasm of lung Myocardial infarction Parkinson's disease Prostate cancer Psychotic disorder Seizure disorder Stroke Tuberculosis Physical Exam Vital Signs VS - Last 72 Hours, by Label 05/08/16 14:05 Temp 96.6 Pulse 97 Resp 20 B/P 128/53 Pulse Ox 93 Capillary Refill : Less Than 3 Seconds General Appearance: WD/WN no apparent distress HEENT: PERRL/EOMI normal ENT inspection Respiratory: no respiratory distress no accessory muscle use Gastrointestinal: normal bowel sounds non tender soft Genital/Rectal: other (I have digitally disimpacted her) Extremities: normal range of motion non-tender Neurologic/Psychiatric: alert normal mood/affect oriented x 3 Skin: normal color warm/dry Progress/Results/Core Measures Results/Orders My Orders Orders-BRIGITTE WOLF APRN Mineral Oil Enema (Fleet Oil Enema) (05/08/16 14:45) Medications Given in ED Current Medications Medications Dose Ordered Sig/Hilda Route Start Time Stop Time Status Last Admin Dose Admin Mineral Oil 1 ea ONCE ONCE MN 05/08/16 14:45 05/08/16 14:46 DC 05/08/16 15:02 1 EA Vital Signs/I&O Vital Sign - Last 12Hours 05/08/16 14:05 Temp 96.6 Pulse 97 Resp 20 B/P 128/53 Pulse Ox 93 Blood Pressure Mean: 78 Departure Communication Progress Notes 1549- patient had a large bowel movement, feels much better and is ready to go home Impression Impression: Primary Impression: Fecal impaction Additional Impression: H/O diabetic gastroparesis Disposition: HOME, SELF-CARE Condition: Stable Departure-Patient Inst. Decision time for Depature: 15:44 Referrals: THERON CHAMPION MD (PCP) Primary Care Physician JYOTSNA EMERY (Family) Primary Care Physician Patient Instructions: Fecal Impaction Add. Discharge Instructions: 1. Use the laxative as directed 2. Return to ER for any concerns 3. All discharge instructions reviewed with patient and/or family. Voiced understanding. BRIGITTE WOLF APRN May 08, 2016 15:42
[2016-05-08 15:56] VITALS: BP 123/65
== END 2016-05-08 15:56 | disposition home or self-care (01) ==
LOC: EDUNIT# 13:30 → ER 13:31
DX: K56.41 Fecal impaction (principal); E11.9 Type 2 diabetes mellitus without complications; I10 Essential (primary) hypertension; I25.10 Atherosclerotic heart disease of native coronary artery without angina pectoris; Z79.4 Long term (current) use of insulin; Z79.899 Other long term (current) drug therapy
CPT/HCPCS: 99283

== ENCOUNTER → 2016-10-15 | Outpatient (CLI) | payer MEDICARE, OTHER ==
[2016-10-15 12:42] LABS: ALANINE AMINOTRANSFERASE 32 U/L (0-55); ALBUMIN 4.2 GM/DL (3.2-4.5); ANION GAP 12 MMOL/L (5-14); ASPARTATE AMINO TRANSFERASE 26 U/L (5-34); BILIRUBIN,TOTAL 0.4 MG/DL (0.1-1.0); BLOOD UREA NITROGEN 19 MG/DL (7-18); BUN/CREATININE RATIO 25; CALCIUM 9.9 MG/DL (8.5-10.1); CARBON DIOXIDE 22 MMOL/L (21-32); CHLORIDE 104 MMOL/L (98-107); CHOLESTEROL 212 MG/DL (< 200); CREATININE SERUM 0.76 MG/DL (0.60-1.30); DIRECT LDL 116 MG/DL (1-129); GFR ESTIMATED > 60; GLUCOSE 133 MG/DL (70-105); POTASSIUM 4.7 MMOL/L (3.6-5.0); SODIUM 138 MMOL/L (135-145); TOTAL PROTEIN 7.4 GM/DL (6.4-8.2); TRIGLYCERIDES 362 MG/DL (<150); VLDL CHOLESTEROL 72 MG/DL (5-40)
== END ==
LOC: LAB 11:55
PROVIDERS: ATTEND Physician Assistant
DX: I25.10 Atherosclerotic heart disease of native coronary artery without angina pectoris (principal); E78.2 Mixed hyperlipidemia
CPT/HCPCS: 36415; 80053; 80061

== ENCOUNTER → 2016-11-12 | Outpatient (CLI) | payer MEDICARE, OTHER ==
--- NOTE | 2016-11-12 12:13 | Diagnostic Imaging Report ---
EXAMINATION: Magnetic resonance imaging of the right shoulder without contrast. DATE: 11/12/2016. COMPARISON: [<None.>] HISTORY: Chronic right shoulder pain. History of previous color bone surgery 1998. Increasing pain last six months. TECHNIQUE: Magnetic Resonance Imaging sequences were performed of the shoulder without contrast. [< >] FINDINGS: ROTATOR CUFF, LIGAMENTS, TENDONS, AND MUSCLES: There is a small tear noted in the distal supraspinatus tendon. This is at least partial and may represent a small full-thickness tear. There is no retraction of the muscle or tendon. The infraspinatus and subscapularis tendon appear intact. There is normal rotator cuff muscle bulk and signal. LONG HEAD OF BICEPS: The biceps labral attachment and long head of the biceps tendon is intact. The long head of the biceps tendon is normally positioned within the bicipital groove. There is fluid noted within the tendon sheath. GLENOHUMERAL JOINT: The humeral head is well positioned relative to the glenoid. The anterior and posterior labrum are intact. There is mild thinning of the articulating cartilage along the glenoid and the humeral head. There is moderate joint effusion in the glenohumeral synovial space. There is also some effusion in the subacromial bursa. ACROMIOCLAVICULAR JOINT: There is marked degenerative disease of the AC joint. Large osteophytes present especially along the superior surface. There is fluid in the synovial joint space as well as subcortical cystic changes along the distal clavicle. BONE: The bones all have normal configuration. The bone marrow signal is within normal limits. Specifically, negative for fracture, osteomyelitis, osteonecrosis, or marrow replacing process. There is hypertrophic bony change along the inferior aspect of the humeral head consistent with chronic degenerative changes. BURSAE AND SOFT TISSUES: There is small amount of fluid in the subacromial bursa. There is normal bulk of the deltoid. IMPRESSION: 1. Small partial versus full-thickness tear of the distal supraspinatus tendon without retraction. 2. Moderate joint effusion. 3. There is some fluid in the long head of the biceps tendon sheath, which may be secondary to chronic tenosynovitis. 4. Some thinning of the articular cartilage along the glenohumeral joint consistent with chronic osteoarthritis. 5. Marked hypertrophy of the AC joint with large osteophyte superiorly and fluid within the synovial joint space with subcortical cystic changes. Dictated by: Dictated on workstation # [id number]
== END ==
LOC: RAD 10:50
PROVIDERS: ATTEND Nurse Practitioner
DX: S46.811A Strain of other muscles, fascia and tendons at shoulder and upper arm level, right arm, initial encounter (principal); M19.011 Primary osteoarthritis, right shoulder; M25.411 Effusion, right shoulder; X58.XXXA Exposure to other specified factors, initial encounter; Y99.8 Other external cause status
CPT/HCPCS: 73221

== ENCOUNTER → 2017-05-03 | Outpatient (CLI) | payer MEDICARE ==
[2017-05-03 12:09] LABS: ALBUMIN 4.1 GM/DL (3.2-4.5); BILIRUBIN,DIRECT 0.1 MG/DL (0.0-0.3); BILIRUBIN,INDIRECT 0.2 MG/DL; BILIRUBIN,TOTAL 0.3 MG/DL (0.1-1.0); TOTAL PROTEIN 7.2 GM/DL (6.4-8.2)
== END ==
LOC: LAB 11:14
PROVIDERS: ATTEND Physician Assistant
DX: I10 Essential (primary) hypertension (principal); I25.10 Atherosclerotic heart disease of native coronary artery without angina pectoris; I65.23 Occlusion and stenosis of bilateral carotid arteries; E11.9 Type 2 diabetes mellitus without complications
CPT/HCPCS: 36415; 80061; 80076

== ENCOUNTER → 2017-06-02 | Outpatient (CLI) | payer MEDICARE, OTHER ==
[~2017-06-02] MED LIST changes: +LIDOCAINE JELLY 2% (XYLOCAINE) 5 ML TUBE ONE
--- NOTE | 2017-06-02 10:36 | Diagnostic Imaging Report ---
PROCEDURE: MR imaging cervical spine without contrast. TECHNIQUE: Multiplanar, multisequence MR imaging of the cervical spine was performed without contrast. INDICATION: Neck pain and right shoulder pain. No prior MRI cervical spine studies are available for comparison. Curvature of the cervical spine is normal. There is very minimal retrolisthesis of C5 on C6. The vertebral body marrow signal is normal. No geographic marrow lesion is seen. No fractures identified. There is mild generalized disc desiccation. Disc space narrowing C5-C6 levels also noted consistent with degenerative disc disease. The cervical cord demonstrates normal homogeneous signal intensity and normal morphology. C2-C3: Unremarkable. C3-4: Unremarkable. C4-C5: Minimal endplate osteophyte formation is seen but no central canal stenosis is identified. No significant neural foraminal stenosis is seen. C5-C6: Disc/osteophyte complex does produce slight indentation up on the ventral thecal sac. Uncovertebral joint degenerative changes result in significant bilateral neural foraminal stenosis. C6-C7: Minimal midline disc bulge is seen but no resultant central canal or neural foraminal stenosis is identified. C7-T1: Unremarkable. The paraspinous tissues are unremarkable. IMPRESSION: Cervical spondylosis, greatest at the C5-C6 level where there is significant bilateral neural foraminal stenosis. No central canal stenosis is identified. Dictated by: Dictated on workstation # [id number]
== END ==
LOC: RAD 09:18
PROVIDERS: ATTEND Orthopaedic Surgery
DX: M48.02 Spinal stenosis, cervical region (principal); M47.22 Other spondylosis with radiculopathy, cervical region; M50.10 Cervical disc disorder with radiculopathy, unspecified cervical region
CPT/HCPCS: 72141

== ENCOUNTER → 2017-06-07 | Outpatient (CLI) | payer MEDICARE, OTHER ==
[~2017-06-07] MED LIST changes: -LIDOCAINE JELLY 2% (XYLOCAINE) 5 ML TUBE ONE
== END ==
LOC: CARD 13:38
PROVIDERS: ATTEND Physician Assistant
DX: I25.10 Atherosclerotic heart disease of native coronary artery without angina pectoris (principal); I65.29 Occlusion and stenosis of unspecified carotid artery; E11.9 Type 2 diabetes mellitus without complications; I10 Essential (primary) hypertension; G47.33 Obstructive sleep apnea (adult) (pediatric); I34.0 Nonrheumatic mitral (valve) insufficiency; I31.3 Pericardial effusion (noninflammatory)
CPT/HCPCS: 93306

== ENCOUNTER → 2017-06-13 | Outpatient (CLI) | payer MEDICARE, OTHER ==
[~2017-06-13] MED LIST changes: +REGADENOSON 0.4 MG/5 ML SYR (LEXISCAN) IV ONE
[2017-06-13] MEDS: CATHETER FLUSH 10 ML SYR IV PRN ×2 (08:09→09:14)
[2017-06-13 09:12] VITALS: BP 135/79
--- NOTE | 2017-06-13 19:23 | STRESS TEST ---
DATE OF SERVICE: 06/13/2017 LEXISCAN MYOVIEW STRESS TEST REPORT REFERRING PHYSICIAN: Dr. Hoover. Baseline heart rate is 80, baseline blood pressure 152/72. Baseline EKG is sinus rhythm with occasional PVCs. SUMMARY: The patient was injected with 10.62 mCi of technetium-99 Myoview and the resting images were obtained. Then, the patient received 0.4 mg of Lexiscan followed by 29.9 mCi of technetium-99 Myoview. During the test, there was some ST depression downsloping in II, III, aVF, V4 and V5, which is nondiagnostic. The images were acquired and reviewed in the parasternal long axis, parasternal short axis, apical four chamber and apical two chamber views. Review of the images showed breast attenuation. There was mild decreased uptake at the basal to mid anterior wall and anterior septum, which is fixed. No significant reversibility was noted. SSS is 4, SDS 0. TID value 1.03. On the gated images, the left ventricle appeared to be in normal size with normal contractility. Calculated ejection fraction 54%. CONCLUSION: 1. The patient tolerated Lexiscan well. 2. Nondiagnostic EKG changes with Lexiscan injection. 3. Breast attenuation with typical female pattern. No significant ischemia or infarction was noted on SPECT images. 4. Normal left ventricular size with normal contractility. Calculated ejection fraction 54%. Job ID: [id number] DocumentID: [id number] Dictated Date: 06/13/2017 12:47:03 Garage [employer]orer Date: 06/13/2017 19:22:47 Dictated By: KACIE MCCAULEY MD
== END ==
LOC: CARD 07:53
PROVIDERS: ATTEND Physician Assistant
DX: I25.10 Atherosclerotic heart disease of native coronary artery without angina pectoris (principal); I10 Essential (primary) hypertension; E11.9 Type 2 diabetes mellitus without complications; G47.33 Obstructive sleep apnea (adult) (pediatric)
CPT/HCPCS: 78452; 93017

== ENCOUNTER 2017-12-04 09:41 | Emergency (ER) | payer MEDICARE, OTHER ==
[~2017-12-04] VITALS: Ht 165.1 cm; Wt 79.8 kg
[~2017-12-04 09:41] MED LIST changes: -REGADENOSON 0.4 MG/5 ML SYR (LEXISCAN) IV ONE
--- OUTSIDE RECORDS SUMMARY | 2017-12-04 09:47 | XMS REPORT ---
Author Author JYOTSNA EMERY Organization [facility] Address [address] [place] [address] Care Team Providers Care Sales And Marketing Executive Name Role Phone JYOTSNA EMERY Unavailable PROBLEMS Type Condition ICD9-CM Code [id number] Code Onset Dates Condition Status SNOMED Code Problem Diabetes E11.9 Active 665384063 Problem alf current use of insulin Z79.4 Active 577353660 Problem Type 2 diabetes mellitus with hyperglycemia E11.65 Active 53303803 Problem Neuropathy G62.9 Active 854743879 Problem Herniation of intervertebral disc at C5-C6 level M50.222 Active 727669727 Problem Diabetic polyneuropathy associated with diabetes mellitus due to underlying condition E08.42 Active 66011368 Problem Irritable bowel syndrome, unspecified type K58.9 Active 59671980 Problem Slow transit constipation K59.01 Active 46824799 Problem Rotator cuff syndrome of right shoulder M75.101 Active [id number] Problem Constipation, unspecified constipation type K59.00 Active 03067392 Problem Barretts esophagus without dysplasia K22.70 Active 126228908 Problem BRITTANI (generalized anxiety disorder) F41.1 Active 66018672 Problem Gastroparesis K31.84 Active 490441277 Problem 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 Nov, Active 9678411 Problem Gastro-esophageal reflux disease without esophagitis K21.9 Active 798128909 Problem Type 2 diabetes mellitus with diabetic autonomic (poly)neuropathy E11.43 Active 133981785 Problem Panic disorder with agoraphobia F40.01 Active 37526620 Problem Obstructive sleep apnea syndrome G47.33 Active 67545455 Problem Bipolar disorder, current episode depressed, moderate F31.32 Active 767606946 Problem Essential hypertension I10 Active 88420563 ALLERGIES No Information ENCOUNTERS Encounter Location Date Diagnosis [facility] [address] [facility] [id number] [address] Oct, Type 2 diabetes mellitus with hyperglycemia E11.65 ; Neuropathy G62.9 ; History of fusion of cervical spine Z98.1 and Obstructive sleep apnea syndrome G47.33 [place] [address] [address]- [address] Oct, [place] [address] 99174- 1225 Sep, Type 2 diabetes mellitus with hyperglycemia E11.65 [place] [address] 82919- 6790 July, [place] [address] 80389- 1138 Jun, Type 2 diabetes mellitus with diabetic autonomic (poly) neuropathy E11.43 and Type 2 diabetes mellitus with hyperglycemia E11.65 [place] [address] 01973- 2391 May, [place] [address] 30787- 4419 May, Bipolar disorder, current episode depressed, moderate F31.32 [facility] [address] [address] May, [place] [address] 15159- 3307 May, Diabetic polyneuropathy associated with diabetes mellitus due to underlying condition E08.42 [place] [address] 26177- 5765 Apr, [place] [address] 43693- 6872 Feb, Ganglion cyst of dorsum of right wrist M67.431 [place] [address] 16001- 4263 Jan, Other cyst of bone, right forearm M85.631 [place] [address] 02111- 0873 Jan, [facility] [address] [place] [address] 84860- 5475 Jan, Diabetes E11.9 and Right forearm pain M79.631 [facility] [address] [place] [id number] [place] [address] 40789- 4434 Dec, Encounter for immunization Z23 [facility] [address] [place] [id number] [place] [address] 60863- 4343 Nov, [facility] [address] [place] [id number] [place] [address] 89839- 7066 Nov, Type 2 diabetes mellitus with hyperglycemia E11.65 [facility] [address] [place] [id number] [place] [address] 68001- 6833 Nov, Severe pain of right shoulder M25.511 [facility] [address] [place] [id number] [place] [address] 62853- 7344 Oct, Diabetes E11.9 [facility] [address] [place] [id number] [place] [address] 04721- 0291 Oct, Diabetes E11.9 [facility] [address] [place] [id number] [place] [address] 41695- 8571 Oct, [facility] [address] [place] [id number] [place] [address] 20149- 1449 Oct, [facility] [address] [place] [id number] [place] [address] 73258- 7816 Oct, Rotator cuff syndrome of right shoulder M75.101 [facility] [address] [place] [id number] [place] [address] 60002- 2050 Oct, Diabetes E11.9 [facility] [address] [place] [id number] [place] [address] 83868- 9045 Sep, Type 2 diabetes mellitus with hyperglycemia E11.65 ; Obstructive sleep apnea syndrome G47.33 and Constipation, unspecified constipation type K59.00 [facility] [address] [place] [id number] [place] [address] 60063- 2803 Aug, [facility] [address] [place] [id number] [place] [address] 26361- 2871 Aug, [facility] [address] 08226- 0152 Aug, Type 2 diabetes mellitus with diabetic autonomic (poly) neuropathy E11.43 [place] [address] 23890- 5140 July, Type 2 diabetes mellitus with hyperglycemia E11.65 [place] [address] 68522- 1976 Jun, Slow transit constipation K59.01 [place] [address] 60763- 7363 May, [place] [address] 12980- 2565 May, Diabetes E11.9 [place] [address] 78455- 0447 May, [facility] [address] 01644 -5332 Apr, [facility] [address] [place] [id number] [place] [address] 58348- 4560 Apr, Gastroenteritis K52.9 [facility] [address] 31123 -8891 Apr, Abdominal pain, unspecified location R10.9 ; Gastroenteritis K52.9 ; Type 2 diabetes mellitus with hyperglycemia E11.65 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 [facility] [address] 62792- 1191 Apr, [facility] [address] [place] [id number] [place] [address] 25603- 7132 Apr, [facility] [address] 63030- 4065 Apr, Diabetes E11.9 ; Gastroparesis K31.84 ; Generalized abdominal pain R10.84 ; Essential hypertension I10 ; Bronchitis J40 and Other fatigue R53.83 [facility] [address] [place] [id number] [place] [address] 76386 -8555 Mar, [facility] [address] 45650 -8801 Mar, [facility] [place] [address] 65058 -7446 Mar, Laceration of scalp without foreign body, initial encounter S01.01XA ; Laceration of face, initial encounter S01.81XA and Encounter for immunization Z23 [address] 13524- 8225 Mar, Type 2 diabetes mellitus with diabetic autonomic (poly) neuropathy E11.[address] 49230- 4018 Feb, [address] 62017- 5344 Feb, Internal hemorrhoids K64.8 and Obstructive sleep apnea syndrome G47.33 [place] [id number] [place] [address] 69193- 9732 Feb, SI (sacroiliac) joint dysfunction M53.[address] 60357- 5743 Jan, [address] 63295- 0992 Dec, Gastroparesis K31.84 [place] [address] 24198- 1516 Dec, [place] [address] 42535- 2835 Dec, Right hip pain M25.551 ; Nose congested R09.81 and Encounter for immunization Z23 [place] [address] [place] [id number] [place] [address] 61990- 5792 13 Nov, 2015 Diabetes E11.9 ; Gastroparesis K31.84 ; Type 2 diabetes mellitus with diabetic autonomic (poly)neuropathy E11.43 and Obstructive sleep apnea syndrome G47.33 [place] [address] [place] [id number] [place] [address] 39357- 1132 Oct, [place] [address] 12041- 0493 Aug, [place] [address] 27700- 7494 July, Gastro-esophageal reflux disease without esophagitis K21.9 [place] [address] 04904- 5497 July, [place] [address] 41310- 5913 July, Diabetes E11.9 [place] [address] 96134- 2262 July, Diabetes E11.9 ; Obstructive sleep apnea syndrome G47.33 and Neuropathy G62.9 [place] [address] [place] [id number] [place] [address] 47484- 9901 July, Bipolar disorder, current episode depressed, moderate F31.32 ; BRITTANI (generalized anxiety disorder) F41.1 and Panic disorder with agoraphobia F40.01 [place] [address] [place] [id number] [place] [address] 27660- 8310 Jun, [address] 21985- 0807 Jun, [facility] [address] [place] [id number] [place] [address] 88865- 7192 Jun, [place] [address] [place] [id number] [place] [address] 64222- 9291 Jun, [place] [address] [place] [address] [id number] May, Encounter for dental examination and cleaning without abnormal findings Z01.20 [place] [address] [place] [id number] [place] [address] 361893- 3376 Apr, [place] [address] [place] [id number] [place] [address] 44751- 8667 Apr, [place] [address] [place] [id number] [place] [address] 529208- 2002 Apr, Bipolar disorder, current episode depressed, moderate F31.32 ; BRITTANI (generalized anxiety disorder) F41.1 and Panic disorder with agoraphobia F40.01 [place] [address] [place] [id number] [place] [address] 49600- 6257 04 Apr, 2015 Hyperlipidemia, unspecified E78.5 [facility] [address] [place] [id number] [place] [address] [id number] Apr, Dental caries K02.9 [facility] [address] [place] [id number] [place] [address] [id number] Feb, Dental caries K02.9 and Encounter for dental examination Z01.20 [place] [address] [place] [address] 23908- 3426 Feb, [address] [place] [address] 22605- 9561 15 Feb, 2015 Diabetes E11.9 ; Insulin long-term use Z79.4 ; Diabetic polyneuropathy associated with diabetes mellitus due to underlying condition E08.42 and Barretts esophagus with high grade dysplasia K22.711 [place] [id number] [place] [address] 47934- 4809 14 Feb, 2015 [place] [id number] [place] [address] 51326- 4366 17 Jan, 2015 Pain in right hip M25.551 and Other chronic pain G89.[address] [place] [address]- 5480 Jan, Impingement syndrome, shoulder, left M75.42 [facility] [address] [place] [id number] [place] [address] 60894- 0289 Jan, Bipolar disorder, current episode depressed, moderate F31.32 ; Generalized anxiety disorder F41.1 and Agoraphobia with panic disorder F40.01 [facility] [address] 47574- 6769 Jan, [facility] [address] [place] [id number] [place] [address] 29918- 8771 Dec, [facility] [address] [place] [id number] [place] [address] 46513- 9089 Dec, [facility] [address] [place] [id number] [place] [address] 71658- 2160 Dec, Right hip pain M25.551 and Left shoulder pain M25.512 [facility] [address] [place] [id number] [place] [address] 29698- 9690 Dec, Bipolar 1 disorder, depressed, moderate F31.32 ; BRITTANI ( generalized anxiety disorder) F41.1 and Panic disorder with agoraphobia F40.01 [facility] [address] [place] [id number] [place] [address] 81092- 7231 Dec, [facility] [address] [place] [id number] [place] [address] 31290- 8348 Dec, [facility] [address] [place] [id number] [place] [address] 34985- 6446 28 Nov, 2014 [facility] [address] [place] [id number] [place] [address] 11797- 3340 18 Nov, 2014 [facility] [address] [place] [id number] [place] [address] 19282- 4601 14 Nov, 2014 [facility] [address] [place] [id number] [place] [address] 13477- 2854 14 Nov, 2014 Diabetes 250.00 [facility] [address] [facility] [id number] [place] [address]- 2422 Oct, [facility] [address] [place] [address]- 7022 Oct, [facility] [address] [address]- 1730 Oct, [facility] [address] [place] [id number] [place] [address] 75667- 9912 Oct, [facility] [address] [address]- 9534 Oct, [facility] [address] [address]- 0529 Oct, [facility] [address] [address]- 3169 Oct, Diabetes 250.00 ; Insomnia 780.52 and Forgetfulness 780.99 [facility] [address] [address]- 3916 Oct, Depressive disorder, not elsewhere classified 311 [facility] [address], [place] [address]- 9831 Sep, [facility] [address] [address]- 5321 Sep, [facility] [address], [place] [address]- 5113 Sep, [facility] [address], [place] [address]- 0496 Sep, [facility] [address], [place] [address]- 7381 Sep, [facility] [address] [address]- 2734 Sep, [facility] [address] [address]- 0469 Sep, [facility] [address] [id number] [place] [address]- 6191 Aug, [facility] [place] [facility] [address] [id number] [id number] Aug, Dental examination V72.2 [facility] [place] [facility] [address] [id number] [place] [address]- 0389 Aug, [facility] [place] [facility] [address] [id number], [place] [address]- 8003 Aug, [facility] [place] [facility] [address] [id number] [place] [address]- 6765 July, [facility] [place] [facility] [address] [id number], [place] [address]- 9392 July, [facility] [place] [facility] [address] [id number] [place] [address]- 1035 July, [facility] [place] [facility] [address] [id number], [place] [address]- 7876 July, [facility] [place] [facility] [address] [id number], [place] [address]- 9339 Jun, [facility] [place] [facility] [address] [id number], [place] [address]- 9527 Jun, [facility] [place] [facility] [address] [id number], [place] [address]- 7762 May, [facility] [place] [facility] [address] [id number], [place] [address]- 1554 May, [facility] [place] [facility] [address] [id number], [place] [address]- 0012 May, [facility] [place] [facility] [address] [id number], [place] [address]- 8170 May, [facility] [place] [facility] [address] [id number], [place] [address]- 1821 May, [facility] [place] [facility] [address] [id number] [place] [address]- 3869 17 May, 2014 [facility] [place] [facility] [address] [id number] [place] [address]- 0366 May, [facility] [place] [facility] [address] [id number] [place] [address]- 9826 May, [facility] [place] [facility] [address] [id number] [place] [address]- 6886 Apr, 2014 [facility] [place] [facility] [address] [id number] [place] [address] 2545 Apr, [facility] [place] [facility] [address] [id number] [place] [address]- 5696 Apr, [facility] [place] [facility] [address] [id number] [place] [address]- 8366 Apr, [facility] [place] [facility] [address] [id number] [place] [address]- 7476 Apr, [facility] [place] [facility] [address] [id number] [place] [address]- 2651 Apr, [facility] [place] [facility] [address] [id number] [place] [address]- 3565 Mar, [facility] [place] [facility] [address] [id number] [place] [address]- 1573 Mar, [facility] [place] [facility] [address] [id number] [place] [address] 2547 Mar, [facility] [place] [facility] [address] [id number] [place] [address] 2549 Mar, [facility] [place] [facility] [address] [id number] [place] [address]- 6694 Mar, [facility] [place] [facility] [address] [id number] [place] [address]- 5906 Mar, [facility] [place] [facility] [address] [id number] [place] [address]- 9220 Mar, [facility] [place] [facility] [address] [id number] [place] [address]- 0250 Mar, [facility] [place] [facility] [address] [id number] [place] [address]- 8944 Mar, [facility] [place] [facility] [address] [id number] [place] [address]- 6876 Mar, [facility] [place] [facility] [address] [id number] [place] [address]- 5621 Mar, [facility] [place] [facility] [address] [id number] [place] [address]- 5918 Mar, [facility] [place] [facility] [address] [id number] [place] [address]- 9173 Mar, [facility] [place] [facility] [address] [id number] [place] [address]- 5406 Mar, [facility] [place] [facility] [address] [id number] [place] [address]- 0482 Feb, [facility] [place] [facility] [address] [id number] [place] [address]- 2448 Feb, [facility] [place] [facility] [address] [id number] [place] [address]- 2346 Feb, [facility] [place] [facility] [address] [id number] [place] [address]- 1044 Feb, [facility] [place] [facility] [address] [id number] [place] [address]- 2173 Feb, [facility] [place] [facility] [address] [id number] [place] [address]- 7599 Feb, [facility] [place] [facility] [address] [id number] [place] [address]- 7534 16 Feb, 2014 [facility] [place] [facility] [address] [id number] [place] [address]- 1649 16 Feb, 2014 [facility] [place] [facility] [address] [id number] [place] 2475 16 Feb, 2014 [facility] [place] [facility] [address] [id number] [place] 2701 16 Feb, 2014 [facility] [place] [facility] [address] [id number] [place] [address]- 2841 Feb, [facility] [place] [facility] [address] [id number] [place] [address]- 8364 Feb, [facility] [place] [facility] [address] [id number] [place] [address]- 0053 Feb, [facility] [place] [facility] [address] [id number] [place] [address]- 8680 Feb, [facility] [place] [facility] [address] [id number] [place] [address]- 2314 Jan, [facility] [place] [facility] [address] [id number] [place] [address]- 3988 Jan, [facility] [place] [facility] [address] [id number] [place] [address]- 8355 Jan, [facility] [place] [facility] [address] [id number] [place] [address]- 7039 Jan, [facility] [place] [facility] [address] [id number] [place] [address]- 1112 Dec, [facility] [place] [facility] [address] [id number] [place] [address]- 1684 Dec, [facility] [place] [facility] [address] [id number], [place] [address]- 0324 Dec, [facility] [place] [facility] [address] [id number] [place] 2701 Dec, [facility] [place] [facility] [address] [id number] [place] [address]- 3842 Dec, [facility] [place] [facility] [address] [id number] 0363 Dec, [facility] [place] [facility] [address] [id number] [place] [address]- 2577 Dec, [facility] [place] [facility] [address] [id number] [place] [address]- 3536 Dec, [facility] [place] [facility] [address] [id number] [place] [address]- 3546 Nov, [facility] [place] [facility] [address] [id number] [place] [address]- 2926 Nov, [facility] [place] [facility] [address] [id number] [place] [address]- 4283 Nov, [facility] [place] [facility] [address] [id number] [place] [address]- 1876 Nov, [facility] [place] [facility] [address] [id number] [place] [address]- 3278 Nov, [facility] [place] [facility] [address] [id number] [place] [address]- 9297 Oct, [facility] [place] [facility] [address] [id number] [place] [address]- 0904 Oct, [facility] [place] [facility] [address] [id number] [place] [address]- 2578 Sep, [facility] [place] [facility] [address] [id number] [place] [address]- 2227 Sep, [facility] [place] [facility] [address] [id number] [place] [address]- 0297 Sep, [facility] [place] [facility] [address] [id number] [place] [address]- 8969 Sep, [facility] [place] [facility] [address] [id number] [place] 0833 Sep, [facility] [place] [facility] [address] [id number] [place] [address]- 5419 Sep, [facility] [place] [facility] [address] [id number] [place] [address]- 0089 Sep, [facility] [place] [facility] [address] [id number] [place] [address]- 9078 Sep, [facility] [place] [facility] [address] [id number] [place] [address]- 2077 Sep, [facility] [place] [facility] [address] [id number] [place] [address] Sep, [facility] [place] [facility] [address] [id number] [place] [address] Sep, [facility] [place] [facility] [address] [id number] [place] [address] Sep, [facility] [place] [facility] [address] [id number] [place] [address] Sep, [facility] [place] [facility] [address] [id number] [place] [address] Sep, [facility] [place] [facility] [address] [id number] [place] [address] July, [facility] [place] [facility] [address] [id number] [place] [address] July, [facility] [place] [facility] [address] [id number] [place] [address] July, [facility] [place] [facility] [address] [id number] [place] [address] July, [facility] [place] [facility] [address] [id number] [place] [address] July, [facility] [place] [facility] [address] [id number] [place] [address] July, [facility] [place] [facility] [address] [id number] [place] [address] July, [facility] [place] [facility] [address] [id number] [place] [address] July, [facility] [place] [facility] [address] [id number] [place] [address]- [address] 17 Jun, 2013 [facility] [place] [facility] [address] [id number] [place] [address] 17 Jun, 2013 [facility] [place] [facility] [address] [id number] [place] [address]- [address] 15 Jun, 2013 [facility] [place] [facility] [address] [id number] [place] [address] 15 Jun, 2013 [facility] [place] [facility] [address] [id number] [place] [address]- [address] Jun, [facility] [place] [facility] [address] [id number] [place] [address] Jun, [facility] [place] [facility] [address] [id number] [place] [address]- [address] Jun, [facility] [place] [facility] [address] [id number] [place] [address]- [address] Jun, [facility] [place] [facility] [address] [id number] [place] [address]- [address] May, [facility] [place] [facility] [address] [id number] [place] [address] 27 May, 2013 [facility] [place] [facility] [address] [id number] [place] [address]- [address] May, [facility] [place] [facility] [address] [id number] [place] [address]- [address] May, [facility] [place] [facility] [address] [id number] [place] [address] May, [facility] [place] [facility] [address] [id number] [place] [address] May, [facility] [place] [facility] [address] [id number] [place] [address]- [address]67 May, [facility] [place] [facility] [address] [id number] [place] [address]- [address] May, [facility] [place] [facility] [address] [id number] [place] [address]- [address] May, [facility] [place] [facility] [address] [id number] [place] [address]- [address] May, [facility] [place] [facility] [address] [id number] [place] [address]- [address] May, [facility] [place] [facility] [address] [id number] [place] [address]- [address] May, [facility] [place] [facility] [address] [id number] [place] [address]- [address] May, [facility] [place] [facility] [address] [id number] [place] [address]- [address] May, [facility] [place] [facility] [address] [id number] [place] [address]- [address] May, [facility] [place] [facility] [address] [id number] [place] [address]- [address] May, [facility] [place] [facility] [address] [id number] [place] [address] Apr, [facility] [place] [facility] [address] [id number] [place] [address] Apr, [facility] [place] [facility] [address] [id number] [place] [address] Mar, [facility] [place] [facility] [address] [id number] [place] [address] 49[address] Mar, [facility] [place] [facility] [address] [id number] [place] [address] Mar, [facility] [place] [facility] [address] [id number] [place] [address] 29[address] Mar, [facility] [place] [facility] [address] [id number] [place] [address] 8[address] Mar, [facility] [place] [facility] [address] [id number], [place] [address] Mar, [facility] [address] [id number] [place] [address] 43[address] Feb, [facility] [place] [facility] [address] [id number] [place] [address] Feb, [facility] [place] [facility] [address] [facility] [id number] [place] [address] Feb, [facility] [place] [facility] [address] [id number] [place] [address] 2497 Feb, [facility] [address] [facility] [id number] [place] [address] 9[address] Feb, [facility] [place] [facility] [address] [facility] [id number] [place] [address] 7162 Feb, [facility] [address] [id number], [place] [address] Jan, [facility] [place] [facility] [address] [facility] [id number], [place] [address] 1317 Jan, [facility] [place] [facility] [address] [facility] [id number], [place] [address] Jan, [facility] [place] [facility] [address] [facility] [id number], [place] [address] Jan, [facility] [place] [facility] [address] [facility] [id number], [place] [address] 27[address] Jan, [facility] [place] [facility] [address] [facility] [id number], [place] [address] Jan, [facility] [place] [facility] [address] [facility] [id number], [place] [address] 6[address] Jan, [facility] [place] [facility] [address] [facility] [id number], [place] [address] 4317 Dec, [facility] [place] [facility] [address] [facility] [id number], [place] [address] Dec, [facility] [place] [facility] [address] [id number] [place] [address] 2546 Dec, [facility] [address] [id number] [place] [address] Nov, [facility] [place] [facility] [address] [id number] [place] [address]46 Oct, [facility] [place] [facility] [address] [id number] [place] [address]106 Sep, [facility] [place] [facility] [address] [id number] [place] [address]671 Sep, [facility] [place] [facility] [address] [id number] [place] [address] Sep, [facility] [place] [facility] [address] [id number] [place] [address] 8044 Sep, [facility] [place] [facility] [address] [id number] [place] [address]15 Sep, [facility] [place] [facility] [address] [id number] [place] [address] 4325 Sep, [facility] [place] [facility] [address] [id number] [place] [address]576 Aug, [facility] [place] [facility] [address] [id number] [place] [address] 2546 Aug, [facility] [place] [facility] [address] [id number] [place] [address] 2546 July, [facility] [place] [facility] [address] [id number] [place] [address] 2546 July, [facility] [place] [facility] [address] [id number] [place] [address] 2546 July, [facility] [place] [facility] [address] [id number] [place] [address] 2546 July, [facility] [place] [facility] [address] [id number] [place] [address] 3400 Jun, [facility] [address] [id number] [place] [address] 6482 May, [facility] [place] [facility] [address] [id number] [place] [address] 7312 May, [facility] [place] [facility] [address] [id number] [place] [address] 8603 May, [facility] [place] [facility] [address] [id number] [place] [address] 9133 Mar, [facility] [place] [facility] [address] [id number] [place] [address] 6100 Mar, [facility] [place] [facility] [address] [id number] [place] [address] 8456 Mar, [facility] [place] [facility] [address] [id number] [place] [address] 7415 Feb, [facility] [place] [facility] [address] [id number] [place] [address] 2759 Feb, [facility] [place] [facility] [address] [id number] [place] [address]- 2617 Feb, [facility] [place] [facility] [address] [id number] [place] [address]- 1631 Feb, [facility] [place] [facility] [address] [id number], [place] [address] 3794 Feb, [facility] [place] [facility] [address] [id number], [place] [address] 6[address] Feb, [facility] [place] [facility] [address] [id number] [place] [address]- 6177 Feb, [facility] [place] [facility] [address] [id number] [place] [address]- 7905 Feb, [facility] [place] [facility] [address] [id number] [place] [address]- 2622 Feb, [facility] [place] [facility] [address] [id number] [place] [address] 9910 Feb, [facility] [place] [facility] [address] [id number] [place] [address] 4240 Jan, [facility] [place] [facility] [address] [id number] [place] [address] 1239 Jan, [facility] [place] [facility] [address] [id number] [place] [address]- 1050 Jan, [facility] [place] [facility] [address] [id number] [place] [address] 8140 Jan, [facility] [place] [facility] [address] [id number] [place] [address] 2057 Jan, [facility] [place] [facility] [address] [id number] [place] [address] 8806 Jan, [facility] [place] [facility] [address] [id number] [place] [address]- 6088 Jan, [facility] [place] [facility] [address] [id number] [place] [address]- 0694 Jan, [facility] [place] [facility] [address] [id number] [place] [address]- 5534 Jan, [facility] [place] [facility] [address] [id number] [place] [address]- 9940 Jan, [facility] [place] [facility] [address] [id number] [place] [address]- 8504 Dec, [facility] [place] [facility] [address] [id number], [place] [address]- [address]115 Dec, [facility] [place] [facility] [address] [id number] [place] [address]- 5983 26 Nov, 2011 [facility] [place] [facility] [address] [id number] [place] [address]- 5029 24 Nov, 2011 [facility] [place] [facility] [address] [id number], [place] [address]- 5950 05 Nov, 2011 [facility] [place] [facility] [address] [id number] [place] [address]- 8561 Oct, [facility] [place] [facility] [address] [id number] [place] [address]- 2246 Oct, [facility] [place] [facility] [address] [id number] [place] [address]- 7113 Oct, [facility] [place] [facility] [address] [id number] [place] [address]- 7205 Oct, [facility] [place] [facility] [address] [id number] [place] [address]- 0304 18 Aug, 2011 [facility] [place] [facility] [address] [id number] [place] [address]- 0260 15 Aug, 2011 [facility] [place] [facility] [address] [facility] [id number] [place] [address]- 6246 14 Aug, 2011 [facility] [place] [facility] [address] [id number] [place] [address]- 0882 07 Aug, 2011 [facility] [place] [facility] [address] [id number] [place] [address]- 4493 08 Jun, 2011 [facility] [place] [facility] [address] [facility] [id number] [place] [address]- 8429 May, [facility] [place] [facility] [address] [facility] [id number] [place] [address]- 2786 May, [facility] [place] [facility] [address] [id number] [place] [address]- 5929 Apr, [facility] [place] [facility] [address] [id number] [place] [address]- 5571 Apr, [facility] [place] [facility] [address] [id number] [place] [address]- 2966 15 Apr, 2011 [facility] [place] [facility] [address] [id number] [place] [address]- 0493 14 Apr, 2011 [facility] [place] [facility] [address] [facility] [id number], [place] [address]- 2089 24 Mar, 2011 [facility] [address] [id number] [place] [address]- 6228 Mar, [facility] [place] [facility] [address] [id number] [place] [address]- 1475 19 Mar, 2011 [facility] [place] [facility] [address] [id number] [place] [address]- 0976 18 Mar, 2011 [facility] [place] [facility] [address] [id number] [place] [address]- 5735 13 Mar, 2011 [facility] [place] [facility] [address] [id number] [place] [address]- 7685 13 Mar, 2011 [facility] [place] [facility] [address] [id number] [place] [address]- 7441 Feb, [facility] [place] [facility] [address] [facility] [id number] [place] [address]- 8924 Jan, [facility] [place] [facility] [address] [id number] [place] [address]- 5090 Jan, [facility] [place] [facility] [address] [facility] [id number] [place] [address]- 5289 Jan, [facility] [place] [facility] [address] [facility] [id number] [place] [address]- 6586 Jan, [facility] [place] [facility] [address] [facility] [id number], [place] [address]- 9720 Jan, [facility] [place] [facility] [address] [id number], [place] [address]- 9787 Dec, [facility] [place] [facility] [address] [id number] [place] [address]- 2520 May, [facility] [place] [facility] [address] [id number] [place] [address]- 4990 14 Apr, 2010 [facility] [place] [facility] [address] [facility] [id number], [place] [address]- 2435 10 Mar, 2010 [facility] [place] [facility] [address] [facility] [id number] [place] [address]- 8829 Feb, [facility] [address] [facility] [id number], [place] [address]- 0960 Feb, [facility] [address] [facility] [id number], [place] [address]- 6791 Feb, [facility] [address] [facility] [id number], [place] [address]- 5214 Feb, [facility] [address] [facility] [id number], [place] [address]- 6835 Dec, [facility] [address] [facility] [id number], [place] [address]- 4542 Dec, IMMUNIZATIONS No Known Immunizations SOCIAL HISTORY Never Assessed REASON FOR VISIT Refill request PLAN OF CARE VITAL SIGNS MEDICATIONS Medication Instructions Dosage Frequency Start Date End Date Duration Status ReliOn Pen [place] 32G X 4 MM as directed for injecting insulin Sep 90 days Active [employer] Ultra Test - test blood sugar 12h Nov, 90 days Active RESULTS No Results PROCEDURES No Known procedures INSTRUCTIONS MEDICATIONS ADMINISTERED No Known Medications MEDICAL (GENERAL) HISTORY Type Description Date Medical History diabetes mellitus Medical History hypertension Medical History hypercholesterolemia Medical History sleep apnea Medical History Eye exam 11/2014 Medical History bi-polar 1 Medical History Angina Medical History Gastroparesis Medical History torn rotater cuff Surgical History Hystorectomy 1995 Surgical History bilateral knee scopes Surgical History cholecystectomy Surgical History appendectomy Surgical History RT shoulder coller bone shaved Surgical History Heart attack and stents placed 2010 Surgical History Teeth removed Surgical History right shoulder and spur removal 2016 Surgical History fused C-spine 4-6 09/2017 Hospitalization History surgeries
--- OUTSIDE RECORDS SUMMARY | 2017-12-04 09:47 | XMS REPORT ---
Author Author JYOTSNA EMERY Organization [facility] Address [address] [place] [address] Care Team Providers Care Senior Actuarial Analyst Name Role Phone JYOTSNA EMERY Unavailable PROBLEMS Type Condition ICD9-CM Code QCL87-UU Code Onset Dates Condition Status SNOMED Code Problem Diabetes E11.9 Active 626293206 Problem shelter current use of insulin Z79.4 Active 430044883 Problem Type 2 diabetes mellitus with hyperglycemia E11.65 Active 32435603 Problem Neuropathy G62.9 Active 321730458 Problem Herniation of intervertebral disc at C5-C6 level M50.222 Active 554196293 Problem Diabetic polyneuropathy associated with diabetes mellitus due to underlying condition E08.42 Active 22555720 Problem Irritable bowel syndrome, unspecified type K58.9 Active 34982911 Problem Slow transit constipation K59.01 Active 37737465 Problem Rotator cuff syndrome of right shoulder M75.101 Active [id number] Problem Constipation, unspecified constipation type K59.00 Active 62076314 Problem Barretts esophagus without dysplasia K22.70 Active 592358716 Problem BRITTANI (generalized anxiety disorder) F41.1 Active 05298235 Problem Gastroparesis K31.84 Active 764592674 Problem 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 Nov, Active 4508995 Problem Gastro-esophageal reflux disease without esophagitis K21.9 Active 968537732 Problem Type 2 diabetes mellitus with diabetic autonomic (poly)neuropathy E11.43 Active 323725920 Problem Panic disorder with agoraphobia F40.01 Active 76207804 Problem Obstructive sleep apnea syndrome G47.33 Active 82791959 Problem Bipolar disorder, current episode depressed, moderate F31.32 Active 355804552 Problem Essential hypertension I10 Active 12083071 ALLERGIES No Information ENCOUNTERS Encounter Location Date Diagnosis [facility] [address] [facility] [id number] [address] Oct, Type 2 diabetes mellitus with hyperglycemia E11.65 ; Neuropathy G62.9 ; History of fusion of cervical spine Z98.1 and Obstructive sleep apnea syndrome G47.33 [place] [address] [address]- [address]33 Oct, [place] [address] [address]- 1308 Sep, Type 2 diabetes mellitus with hyperglycemia E11.65 [place] [address] [address]241- 6812 July, [place] [address] [address]450[address]- 5903 Jun, Type 2 diabetes mellitus with diabetic autonomic (poly) neuropathy E11.43 and Type 2 diabetes mellitus with hyperglycemia E11.65 [place] [address] [address]- 8[address] May, [place] [address] 91892- 9639 May, Bipolar disorder, current episode depressed, moderate F31.32 [facility] WALK IN [facility] [address] [address] May, [place] [address] 75381- 2582 May, Diabetic polyneuropathy associated with diabetes mellitus due to underlying condition E08.42 [place] [address] 84875- 8630 Apr, [place] [address] 85752- 7463 Feb, Ganglion cyst of dorsum of right wrist M67.431 [place] [address] 34012- 4497 Jan, Other cyst of bone, right forearm M85.631 [place] [address] 25347- 9671 Jan, [facility] [id number] [place] [address] 35643- 1591 Jan, Diabetes E11.9 and Right forearm pain M79.631 [facility] [address] [place] [id number] [place] [address] 63715- 4223 Dec, Encounter for immunization Z23 [facility] [address] [place] [id number] [place] [address] 06966- 8395 Nov, [facility] [address] [place] [id number] [place] [address] 12923- 0453 Nov, Type 2 diabetes mellitus with hyperglycemia E11.65 [facility] [address] [place] [id number] [place] [address] 13771- 1019 Nov, Severe pain of right shoulder M25.511 [facility] [address] [place] [id number] [place] [address] 52637- 1530 Oct, Diabetes E11.9 [facility] [address] [place] [id number] [place] [address] 60881- 6379 Oct, Diabetes E11.9 [facility] [address] [place] [id number] [place] [address] 33013- 2207 Oct, [facility] [address] [place] [id number] [place] [address] 41357- 5199 Oct, [facility] [address] [place] [id number] [place] [address] 38570- 9514 Oct, Rotator cuff syndrome of right shoulder M75.101 [facility] [address] [place] [id number] [place] [address] 22376- 8618 Oct, Diabetes E11.9 [facility] [address] [place] [id number] [place] [address] 91060- 3122 Sep, Type 2 diabetes mellitus with hyperglycemia E11.65 ; Obstructive sleep apnea syndrome G47.33 and Constipation, unspecified constipation type K59.00 [facility] [address] [place] [id number] [place] [address] 57785- 2178 Aug, [facility] [address] [place] [id number] [place] [address] 92766- 3289 Aug, [facility] [address] 15720- 9694 Aug, Type 2 diabetes mellitus with diabetic autonomic (poly) neuropathy E11.43 [place] [address] 22105- 4130 July, Type 2 diabetes mellitus with hyperglycemia E11.65 [place] [address] 87643- 1744 Jun, Slow transit constipation K59.01 [place] [address] 98392- 0338 May, [place] [address] 70841- 3909 May, Diabetes E11.9 [place] [address] 13848- 5156 May, [facility] [address] 93834 -2642 Apr, [facility] [address] [place] [id number] [place] [address] 98833- 5993 Apr, Gastroenteritis K52.9 [facility] [address] 63147 -2664 Apr, Abdominal pain, unspecified location R10.9 ; Gastroenteritis K52.9 ; Type 2 diabetes mellitus with hyperglycemia E11.65 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 [facility] [address] 03398- 2065 Apr, [facility] [address] [place] [id number] [place] [address] 89825- 3793 Apr, [facility] [address] 13682- 0923 Apr, Diabetes E11.9 ; Gastroparesis K31.84 ; Generalized abdominal pain R10.84 ; Essential hypertension I10 ; Bronchitis J40 and Other fatigue R53.83 [facility] [address] [place] [id number] [place] [address] 73921 -6300 Mar, [facility] WALK IN [facility] [address] 73886 -0928 Mar, [facility] WALK IN [place] [address] 63882 -5410 Mar, Laceration of scalp without foreign body, initial encounter S01.01XA ; Laceration of face, initial encounter S01.81XA and Encounter for immunization Z23 [address] [address] Mar, Type 2 diabetes mellitus with diabetic autonomic (poly) neuropathy E11.[address] 66272- 5778 Feb, [address] 15203- 3215 Feb, Internal hemorrhoids K64.8 and Obstructive sleep apnea syndrome G47.33 [place] [id number] [place] [address] 01243- 3992 Feb, SI (sacroiliac) joint dysfunction M53.[address] 68091- 9023 Jan, [address] 87814- 6218 Dec, Gastroparesis K31.84 [place] [address] 65114- 2306 Dec, [place] [address] 52650- 6917 Dec, Right hip pain M25.551 ; Nose congested R09.81 and Encounter for immunization Z23 [place] [address] [place] [id number] [place] [address] 25219- 6489 13 Nov, 2015 Diabetes E11.9 ; Gastroparesis K31.84 ; Type 2 diabetes mellitus with diabetic autonomic (poly)neuropathy E11.43 and Obstructive sleep apnea syndrome G47.33 [place] [address] [place] [id number] [place] [address] 00392- 2845 Oct, [place] [address] 05724- 0639 Aug, [place] [address] 43387- 5645 July, Gastro-esophageal reflux disease without esophagitis K21.9 [place] [address] 56237- 8824 July, [place] [address] 98309- 0858 July, Diabetes E11.9 [place] [address] 72744- 6490 July, Diabetes E11.9 ; Obstructive sleep apnea syndrome G47.33 and Neuropathy G62.9 [place] [address] [place] [id number] [place] [address] 88542- 0187 July, Bipolar disorder, current episode depressed, moderate F31.32 ; BRITTANI (generalized anxiety disorder) F41.1 and Panic disorder with agoraphobia F40.01 [place] [address] [place] [id number] [place] [address] 53408- 3271 Jun, [address] 78607- 8702 Jun, [facility] [address] [place] [id number] [place] [address] 27612- 4099 Jun, [place] [address] [place] [id number] [place] [address] 05964- 0333 Jun, [place] [address] [place] [address] [id number] May, Encounter for dental examination and cleaning without abnormal findings Z01.20 [place] [address] [place] [id number] [place] [address] 379255- 7436 Apr, [place] [address] [place] [id number] [place] [address] 94086- 1287 Apr, [place] [address] [place] [id number] [place] [address] 285485- 3154 Apr, Bipolar disorder, current episode depressed, moderate F31.32 ; BRITTANI (generalized anxiety disorder) F41.1 and Panic disorder with agoraphobia F40.01 [place] [address] [place] [id number] [place] [address] 55570- 0299 04 Apr, 2015 Hyperlipidemia, unspecified E78.5 [facility] [address] [place] [id number] [place] [address] [phone] Apr, Dental caries K02.9 [facility] [address] [place] [id number] [place] [address] [id number] Feb, Dental caries K02.9 and Encounter for dental examination Z01.20 [place] [address] [place] [address] 49244- 4961 Feb, [address] [place] [address] 94425- 2252 15 Feb, 2015 Diabetes E11.9 ; Insulin long-term use Z79.4 ; Diabetic polyneuropathy associated with diabetes mellitus due to underlying condition E08.42 and Barretts esophagus with high grade dysplasia K22.711 [place] [id number] [place] [address] 03710- 5087 14 Feb, 2015 [place] [id number] [place] [address] 60182- 0904 17 Jan, 2015 Pain in right hip M25.551 and Other chronic pain G89.[address] [place] [address]- 3126 Jan, Impingement syndrome, shoulder, left M75.42 [facility] [address] [place] [id number] [place] [address] 46851- 4198 Jan, Bipolar disorder, current episode depressed, moderate F31.32 ; Generalized anxiety disorder F41.1 and Agoraphobia with panic disorder F40.01 [facility] [address] 73829- 3685 Jan, [facility] [address] [place] [id number] [place] [address] 94110- 7679 Dec, [facility] [address] [place] [id number] [place] [address] 52750- 2128 Dec, [facility] [address] [place] [id number] [place] [address] 63212- 4453 Dec, Right hip pain M25.551 and Left shoulder pain M25.512 [facility] [address] [place] [id number] [place] [address] 71570- 4252 Dec, Bipolar 1 disorder, depressed, moderate F31.32 ; BRITTANI ( generalized anxiety disorder) F41.1 and Panic disorder with agoraphobia F40.01 [facility] [address] [place] [id number] [place] [address] 02984- 0083 Dec, [facility] [address] [place] [id number] [place] [address] 32113- 0368 Dec, [facility] [address] [place] [id number] [place] [address] 94151- 2005 28 Nov, 2014 [facility] [address] [place] [id number] [place] [address] 30041- 9570 18 Nov, 2014 [facility] [address] [place] [id number] [place] [address] 34791- 2997 14 Nov, 2014 [facility] [address] [place] [id number] [place] [address] 93172- 6757 14 Nov, 2014 Diabetes 250.00 [facility] [address] [facility] [id number] [place] [address]- 2681 Oct, [facility] [address] [place] [address]- 3863 Oct, [facility] [address] [address]- 7235 Oct, [facility] [address] [place] [id number] [place] [address] 27811- 3724 Oct, [facility] [address] [address]- 3136 Oct, [facility] [address] [address]- 7468 Oct, [facility] [address] [address]- 4117 Oct, Diabetes 250.00 ; Insomnia 780.52 and Forgetfulness 780.99 [facility] [address] [address]- 3268 Oct, Depressive disorder, not elsewhere classified 311 [facility] [address] [address]- 1448 Sep, [facility] [address] [address]- 1150 Sep, [facility] [address] [address]- 9697 Sep, [facility] [address] [address]- 0692 Sep, [facility] [address], [place] [address]- 8363 Sep, [facility] [address] [address]- 2531 Sep, [facility] [address] [address]- 9969 Sep, [facility] [address] [id number] [place] [address]- 0715 Aug, [facility] [place] [facility] [address] [id number] Aug, Dental examination V72.2 [facility] [place] [facility] [address] [id number] [place] [address]- 9797 Aug, [facility] [place] [facility] [address] [id number], [place] [address]- 4987 Aug, [facility] [place] [facility] [address] [id number] [place] [address]- 6852 July, [facility] [place] [facility] [address] [id number], [place] [address]- 6258 July, [facility] [place] [facility] [address] [id number] [place] [address]- 1379 July, [facility] [place] [facility] [address] [id number], [place] [address]- 9238 July, [facility] [place] [facility] [address] [id number], [place] [address]- 6589 Jun, [facility] [place] [facility] [address] [id number], [place] [address]- 4941 Jun, [facility] [place] [facility] [address] [id number], [place] [address]- 4479 May, [facility] [place] [facility] [address] [id number], [place] [address]- 4646 May, [facility] [place] [facility] [address] [id number], [place] [address]- 9228 May, [facility] [place] [facility] [address] [id number], [place] [address]- 4523 May, [facility] [place] [facility] [address] [id number], [place] [address]- 9430 May, [facility] [place] [facility] [address] [id number] [place] [address]- 8520 17 May, 2014 [facility] [place] [facility] [address] [id number] [place] [address]- 8026 May, [facility] [place] [facility] [address] [id number] [place] [address]- 5326 May, [facility] [place] [facility] [address] [id number] [place] [address]- 2366 Apr, 2014 [facility] [place] [facility] [address] [id number] [place] [address] 2549 Apr, [facility] [place] [facility] [address] [id number] [place] [address]- 3836 Apr, [facility] [place] [facility] [address] [id number] [place] [address]- 6126 Apr, [facility] [place] [facility] [address] [id number] [place] [address]- 8626 Apr, [facility] [place] [facility] [address] [id number] [place] [address]- 3607 Apr, [facility] [place] [facility] [address] [id number] [place] [address]- 9600 Mar, [facility] [place] [facility] [address] [id number] [place] [address]- 4990 Mar, [facility] [place] [facility] [address] [id number] [place] [address] 2549 Mar, [facility] [place] [facility] [address] [id number] [place] [address] 2544 Mar, [facility] [place] [facility] [address] [id number] [place] [address]- 6159 Mar, [facility] [place] [facility] [address] [id number] [place] [address]- 9856 Mar, [facility] [place] [facility] [address] [id number] [place] [address]- 3524 Mar, [facility] [place] [facility] [address] [id number] [place] [address]- 7815 Mar, [facility] [place] [facility] [address] [id number] [place] [address]- 4691 Mar, [facility] [place] [facility] [address] [id number] [place] [address]- 4302 Mar, [facility] [place] [facility] [address] [id number] [place] [address]- 6433 Mar, [facility] [place] [facility] [address] [id number] [place] [address]- 7938 Mar, [facility] [place] [facility] [address] [id number] [place] [address]- 2646 Mar, [facility] [place] [facility] [address] [id number] [place] [address]- 7791 Mar, [facility] [place] [facility] [address] [id number] [place] [address]- 7208 Feb, [facility] [place] [facility] [address] [id number] [place] [address]- 3388 Feb, [facility] [place] [facility] [address] [id number] [place] [address]- 4197 Feb, [facility] [place] [facility] [address] [id number] [place] [address]- 2301 Feb, [facility] [place] [facility] [address] [id number] [place] [address]- 5812 Feb, [facility] [place] [facility] [address] [id number] [place] [address]- 3493 Feb, [facility] [place] [facility] [address] [id number] [place] [address]- 9413 16 Feb, 2014 [facility] [place] [facility] [address] [id number] [place] [address]- 7249 16 Feb, 2014 [facility] [place] [facility] [address] [id number] [place]- 6858 16 Feb, 2014 [facility] [place] [facility] [address] [id number] [place] 6394 16 Feb, 2014 [facility] [place] [facility] [address] [id number] [place] [address]- 4214 Feb, [facility] [place] [facility] [address] [id number] [place] [address]- 5670 Feb, [facility] [place] [facility] [address] [id number] [place] [address]- 0610 Feb, [facility] [place] [facility] [address] [id number] [place] [address]- 2510 Feb, [facility] [place] [facility] [address] [id number] [place] [address]- 8044 Jan, [facility] [place] [facility] [address] [id number] [place] [address]- 9977 Jan, [facility] [place] [facility] [address] [id number] [place] [address]- 5791 Jan, [facility] [place] [facility] [address] [id number] [place] [address]- 0880 Jan, [facility] [place] [facility] [address] [id number] [place] [address]- 4136 Dec, [facility] [place] [facility] [address] [id number] [place] [address]- 5779 Dec, [facility] [place] [facility] [address] [id number], [place] [address]- 5501 Dec, [facility] [place] [facility] [address] [id number] [place] 1678 Dec, [facility] [place] [facility] [address] [id number] [place] [address]- 5763 Dec, [facility] [place] [facility] [address] [id number] 4862 Dec, [facility] [place] [facility] [address] [id number] [place] [address]- 2511 Dec, [facility] [place] [facility] [address] [id number] [place] [address]- 0756 Dec, [facility] [place] [facility] [address] [id number] [place] [address]- 9776 Nov, [facility] [place] [facility] [address] [id number] [place] [address]- 2326 Nov, [facility] [place] [facility] [address] [id number] [place] [address]- 0168 Nov, [facility] [place] [facility] [address] [id number] [place] [address]- 9046 Nov, [facility] [place] [facility] [address] [id number] [place] [address]- 6968 Nov, [facility] [place] [facility] [address] [id number] [place] [address]- 1767 Oct, [facility] [place] [facility] [address] [id number] [place] [address]- 4686 Oct, [facility] [place] [facility] [address] [id number] [place] [address] Sep, [facility] [place] [facility] [address] [id number] [place] [address] Sep, [facility] [place] [facility] [address] [id number] [place] [address] Sep, [facility] [place] [facility] [address] [id number] [place] [address] Sep, [facility] [place] [facility] [address] [id number] [place] [address] Sep, [facility] [place] [facility] [address] [id number] [place] [address] Sep, [facility] [place] [facility] [address] [id number] [place] [address] Sep, [facility] [place] [facility] [address] [id number] [place] [address] Sep, [facility] [place] [facility] [address] [id number] [place] [address] Sep, [facility] [place] [facility] [address] [id number] [place] [address] Sep, [facility] [place] [facility] [address] [id number] [place] [address] Sep, [facility] [place] [facility] [address] [id number] [place] [address] Sep, [facility] [place] [facility] [address] [id number] [place] [address] Sep, [facility] [place] [facility] [address] [id number] [place] [address] Sep, [facility] [place] [facility] [address] [id number] [place] [address] July, [facility] [place] [facility] [address] [id number] [place] [address] July, [facility] [place] [facility] [address] [id number] [place] [address] July, [facility] [place] [facility] [address] [id number] [place] [address] July, [facility] [place] [facility] [address] [id number] [place] [address] July, [facility] [place] [facility] [address] [id number] [place] [address] July, [facility] [place] [facility] [address] [id number] [place] [address] July, [facility] [place] [facility] [address] [id number] [place] [address] July, [facility] [place] [facility] [address] [id number] [place] [address] 17 Jun, 2013 [facility] [place] [facility] [address] [id number] [place] [address] 17 Jun, 2013 [facility] [place] [facility] [address] [id number] [place] [address] 15 Jun, 2013 [facility] [place] [facility] [address] [id number] [place] [address]- [address] 15 Jun, 2013 [facility] [place] [facility] [address] [id number] [place] [address] Jun, [facility] [place] [facility] [address] [id number] [place] [address] Jun, [facility] [place] [facility] [address] [id number] [place] [address] Jun, [facility] [place] [facility] [address] [id number] [place] [address] Jun, [facility] [place] [facility] [address] [id number] [place] [address] May, [facility] [place] [facility] [address] [id number] [place] [address] 27 May, 2013 [facility] [place] [facility] [address] [id number] [place] [address] May, [facility] [place] [facility] [address] [id number] [place] [address] May, [facility] [place] [facility] [address] [id number] [place] [address] May, [facility] [place] [facility] [address] [id number] [place] [address] May, [facility] [place] [facility] [address] [id number] [place] [address] May, [facility] [place] [facility] [address] [id number] [place] [address] May, [facility] [place] [facility] [address] [id number] [place] [address]- [address] May, [facility] [place] [facility] [address] [address] [id number] [place] [address] May, [facility] [place] [facility] [address] [id number] [place] [address] 39[address] May, [facility] [place] [facility] [address] [id number] [place] [address] May, [facility] [place] [facility] [address] [id number] [place] [address] May, [facility] [place] [facility] [address] [id number] [place] [address] May, [facility] [place] [facility] [address] [id number] [place] [address] 28[address] May, [facility] [place] [facility] [address] [id number] [place] [address] May, [facility] [place] [facility] [address] [id number] [place] [address] 74[address] Apr, [facility] [place] [facility] [address] [id number] [place] [address] 29[address] Apr, [facility] [place] [facility] [address] [id number] [place] [address] 4269 Mar, [facility] [place] [facility] [address] [id number] [place] [address] 234[address] Mar, [facility] [place] [facility] [address] [id number] [place] [address] 6[address] Mar, [facility] [place] [facility] [address] [id number] [place] [address] 7758 Mar, [facility] [place] [facility] [address] [id number] [place] [address] 9985 Mar, [facility] [place] [facility] [address] [id number], [place] [address] Mar, [facility] [address] [id number] [place] [address] 3[address] Feb, [facility] [place] [facility] [address] [id number] [place] [address] Feb, [facility] [place] [facility] [address] [facility] [id number] [place] [address] Feb, [facility] [place] [facility] [address] [id number] [place] [address] 8029 Feb, [facility] [address] [facility] [id number] [place] [address] 56[address] Feb, [facility] [place] [facility] [address] [facility] [id number] [place] [address] 8801 Feb, [facility] [address] [id number], [place] [address] Jan, [facility] [place] [facility] [address] [facility] [id number], [place] [address]- 7814 Jan, [facility] [place] [facility] [address] [facility] [id number], [place] [address]- 9[address] Jan, [facility] [place] [facility] [address] [facility] [id number], [place] [address]- 0946 Jan, [facility] [place] [facility] [address] [facility] [id number], [place] [address] 49[address] Jan, [facility] [place] [facility] [address] [facility] [id number], [place] [address] Jan, [facility] [place] [facility] [address] [facility] [id number], [place] [address] Jan, [facility] [place] [facility] [address] [facility] [id number], [place] [address] Dec, [facility] [place] [facility] [address] [facility] [id number], [place] [address] Dec, [facility] [place] [facility] [address] [id number] [place] [address] 2546 Dec, [facility] [address] [id number] [place] [address] 5246 Nov, [facility] [place] [facility] [address] [id number] [place] [address] 2546 Oct, [facility] [place] [facility] [address] [id number] [place] [address] 3656 Sep, [facility] [place] [facility] [address] [id number] [place] [address] 4794 Sep, [facility] [place] [facility] [address] [id number] [place] [address]- 5672 Sep, [facility] [place] [facility] [address] [id number] [place] [address] 7447 Sep, [facility] [place] [facility] [address] [id number] [place] [address] 7964 Sep, [facility] [place] [facility] [address] [id number] [place] [address] 4[address] Sep, [facility] [place] [facility] [address] [id number] [place] [address] 6[address] Aug, [facility] [place] [facility] [address] [id number] [place] [address]- 2546 Aug, [facility] [place] [facility] [address] [id number] [place] [address] 2546 July, [facility] [place] [facility] [address] [id number] [place] [address]- 2546 July, [facility] [place] [facility] [address] [id number] [place] [address]- 2546 July, [facility] [place] [facility] [address] [id number] [place] [address]- 2546 July, [facility] [place] [facility] [address] [id number] [place] [address]- 6794 Jun, [facility] [address] [id number] [place] [address]- 8635 May, [facility] [place] [facility] [address] [id number] [place] [address]- 0317 May, [facility] [place] [facility] [address] [id number] [place] [address]- 6423 May, [facility] [place] [facility] [address] [id number] [place] [address]- 4865 Mar, [facility] [place] [facility] [address] [id number] [place] [address]- 8241 Mar, [facility] [place] [facility] [address] [id number] [place] [address]- 0321 Mar, [facility] [place] [facility] [address] [id number] [place] [address]- 5514 Feb, [facility] [place] [facility] [address] [id number] [place] [address]- 5145 Feb, [facility] [place] [facility] [address] [id number] [place] [address]- 8832 Feb, [facility] [place] [facility] [address] [id number] [place] [address]- 0804 Feb, [facility] [place] [facility] [address] [id number], [place] [address] 7008 Feb, [facility] [place] [facility] [address] [id number], [place] [address]- 7608 Feb, [facility] [place] [facility] [address] [id number] [place] [address]- 4526 Feb, [facility] [place] [facility] [address] [id number] [place] [address]- 5283 Feb, [facility] [place] [facility] [address] [id number] [place] [address]- 9008 Feb, [facility] [place] [facility] [address] [id number] [place] [address]- 4565 Feb, [facility] [place] [facility] [address] [id number] [place] [address]- 3365 Jan, [facility] [place] [facility] [address] [id number] [place] [address]- 2996 Jan, [facility] [place] [facility] [address] [id number] [place] [address]- 7598 Jan, [facility] [place] [facility] [address] [id number] [place] [address]- 8453 Jan, [facility] [place] [facility] [address] [id number] [place] [address]- 1801 Jan, [facility] [place] [facility] [address] [id number] [place] [address]- 4127 Jan, [facility] [place] [facility] [address] [id number] [place] [address]- 4548 Jan, [facility] [place] [facility] [address] [id number] [place] [address]- 1150 Jan, [facility] [place] [facility] [address] [id number] [place] [address]- 9229 Jan, [facility] [place] [facility] [address] [id number] [place] [address]- 8433 Jan, [facility] [place] [facility] [address] [id number] [place] [address]- 8849 Dec, [facility] [place] [facility] [address] [id number], [place] [address]- 0114 Dec, [facility] [place] [facility] [address] [id number] [place] [address]- 3313 26 Nov, 2011 [facility] [place] [facility] [address] [id number] [place] [address]- 7006 24 Nov, 2011 [facility] [place] [facility] [address] [id number], [place] [address]- 0992 05 Nov, 2011 [facility] [place] [facility] [address] [id number] [place] [address]- 0267 Oct, [facility] [place] [facility] [address] [id number] [place] [address]- 0260 Oct, [facility] [place] [facility] [address] [id number] [place] [address]- 0762 Oct, [facility] [place] [facility] [address] [id number] [place] [address]- 0092 Oct, [facility] [place] [facility] [address] [id number] [place] [address]- 0615 18 Aug, 2011 [facility] [place] [facility] [address] [id number] [place] [address]- 9382 15 Aug, 2011 [facility] [place] [facility] [address] [facility] [id number] [place] [address]- 7443 14 Aug, 2011 [facility] [place] [facility] [address] [id number] [place] [address]- 1346 07 Aug, 2011 [facility] [place] [facility] [address] [id number] [place] [address]- 7500 08 Jun, 2011 [facility] [place] [facility] [address] [facility] [id number] [place] [address]- 4269 May, [facility] [place] [facility] [address] [facility] [id number] [place] [address]- 8244 May, [facility] [place] [facility] [address] [id number] [place] [address]- 8411 Apr, [facility] [place] [facility] [address] [id number] [place] [address]- 4748 Apr, [facility] [place] [facility] [address] [id number] [place] [address]- 7823 15 Apr, 2011 [facility] [place] [facility] [address] [id number] [place] [address]- 4909 14 Apr, 2011 [facility] [place] [facility] [address] [facility] [id number], [place] [address]- 3171 24 Mar, 2011 [facility] [address] [id number] [place] [address]- 7814 Mar, [facility] [place] [facility] [address] [id number] [place] [address]- 1916 19 Mar, 2011 [facility] [place] [facility] [address] [id number] [place] [address]- 7789 18 Mar, 2011 [facility] [place] [facility] [address] [id number] [place] [address]- 9542 13 Mar, 2011 [facility] [place] [facility] [address] [id number] [place] [address]- 3172 13 Mar, 2011 [facility] [place] [facility] [address] [id number] [place] [address]- 5944 Feb, [facility] [place] [facility] [address] [facility] [id number] [place] [address]- 8568 Jan, [facility] [place] [facility] [address] [id number] [place] [address]- 5650 Jan, [facility] [place] [facility] [address] [facility] [id number] [place] [address]- 4262 Jan, [facility] [place] [facility] [address] [facility] [id number] [place] [address]- 7078 Jan, [facility] [place] [facility] [address] [facility] [id number], [place] [address]- 8020 Jan, [facility] [place] [facility] [address] [id number], [place] [address]- 4763 Dec, [facility] [place] [facility] [address] [id number] [place] [address]- 1632 May, [facility] [place] [facility] [address] [id number] [place] [address]- 6829 14 Apr, 2010 [facility] [place] [facility] [address] [facility] [id number], [place] [address]- 8337 10 Mar, 2010 [facility] [place] [facility] [address] [facility] [id number] [place] [address]- 7081 Feb, [facility] [address] [facility] [id number], [place] [address]- 6216 Feb, [facility] [address] [facility] [id number], [place] [address]- 5830 14 Feb, 2010 [facility] [address] [facility] [id number], [place] [address]- 4620 Feb, [facility] [address] [facility] [id number], [place] [address]- 2296 Dec, [facility] [address] [facility] [id number], [place] [address]- 3574 Dec, IMMUNIZATIONS No Known Immunizations SOCIAL HISTORY Never Assessed REASON FOR VISIT Refill request PLAN OF CARE VITAL SIGNS MEDICATIONS Medication Instructions Dosage Frequency Start Date End Date Duration Status Zenpep [id number] UNIT Orally 4 times a day 1 capsule before meals and snacks 6h 30 days Active RESULTS No Results PROCEDURES No [...]
--- OUTSIDE RECORDS SUMMARY | 2017-12-04 09:48 | XMS REPORT ---
Author Author JYOTSNA EMERY Organization [facility] Address [address] [place] [address] Care Team Providers Care Pullman Clerk Name Role Phone JYOTSNA EMERY Unavailable PROBLEMS Type Condition ICD9-CM Code [id number] Code Onset Dates Condition Status SNOMED Code Problem Diabetes E11.9 Active 645576213 Problem Type 2 diabetes mellitus with hyperglycemia E11.65 Active 01622613 Problem Essential hypertension I10 Active 18640765 Problem Diabetic polyneuropathy associated with diabetes mellitus due to underlying condition E08.42 Active 23270050 Problem Rotator cuff syndrome of right shoulder M75.101 Active 021128399636794 Problem Slow transit constipation K59.01 Active 45967622 Problem nursing home current use of insulin Z79.4 Active 579975794 Problem Constipation, unspecified constipation type K59.00 Active 07651611 Problem Irritable bowel syndrome, unspecified type K58.9 Active 29953999 Problem Barretts esophagus without dysplasia K22.70 Active 250317997 Problem 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 01 Nov, 2014 Active 7117055 Problem Herniation of intervertebral disc at C5-C6 level M50.222 Active 736643540 Problem Gastroparesis K31.84 Active 508600918 Problem Bipolar disorder, current episode depressed, moderate F31.32 Active 332667261 Problem Gastro-esophageal reflux disease without esophagitis K21.9 Active 827574475 Problem Panic disorder with agoraphobia F40.01 Active 87594606 Problem Type 2 diabetes mellitus with diabetic autonomic (poly)neuropathy E11.43 Active 573867315 Problem BRITTANI (generalized anxiety disorder) F41.1 Active 53662284 Problem Obstructive sleep apnea syndrome G47.33 Active 32813346 ALLERGIES Substance Reaction Event Type Date Status Codeine Sulfate hives Drug Allergy Jun, Active Advil rash Drug Allergy Jun, Active All nsaids Unknown Non Drug Allergy Jun, Active ENCOUNTERS Encounter Location Date Diagnosis [facility] [id number] [place] [address] 04592- 7200 Oct, [facility] [id number] [place] [address] 27905- 7751 Oct, [facility] [id number] [place] [address] 66335- 3402 Sep, Type 2 diabetes mellitus with hyperglycemia E11.65 [facility] [address] 15845- 1183 July, [facility] [id number] [place] [address] 65229- 8352 Jun, Type 2 diabetes mellitus with diabetic autonomic (poly) neuropathy E11.43 and Type 2 diabetes mellitus with hyperglycemia E11.65 [facility] [id number] [place] [address] 37739- 0780 May, [facility] [id number] [place] [address] 71122- 0949 May, Bipolar disorder, current episode depressed, moderate F31.32 [facility] [id number] [place] [address] 10544 -6172 May, [facility] [id number] [place] [address] 97793- 7677 May, Diabetic polyneuropathy associated with diabetes mellitus due to underlying condition E08.42 [place] [id number] [place] [address] 49014- 3777 Apr, [place] [id number] [place] [address] 55815- 9676 Feb, Ganglion cyst of dorsum of right wrist M67.431 [place] [id number] [place] [address] 66144- 8919 Jan, Other cyst of bone, right forearm M85.631 [place] [id number] [place] [address] 78123- 3333 Jan, [facility] [id number] [place] [address] 20423- 0004 Jan, Diabetes E11.9 and Right forearm pain M79.631 [facility] [id number] [place] [address] 74700- 4621 Dec, Encounter for immunization Z23 [facility] [id number] [place] [address] 95404- 1395 Nov, [facility] [id number] [place] [address] 19957- 2972 Nov, Type 2 diabetes mellitus with hyperglycemia E11.65 [facility] [id number] [place] [address] 74624- 6597 Nov, Severe pain of right shoulder M25.511 [facility] [id number] [place] [address] 59831- 6082 Oct, Diabetes E11.9 [facility] [id number] [place] [address] 47737- 8376 Oct, Diabetes E11.9 [facility] [id number] [place] [address] 34611- 9536 Oct, [facility] [id number] [place] [address] 21695- 8078 Oct, [facility] [id number] [place] [address] 98131- 9727 Oct, Rotator cuff syndrome of right shoulder M75.101 [facility] [id number] [place] [address] 91963- 0452 Oct, Diabetes E11.9 [facility] [id number] [place] [address] 15108- 0290 Sep, Type 2 diabetes mellitus with hyperglycemia E11.65 ; Obstructive sleep apnea syndrome G47.33 and Constipation, unspecified constipation type K59.00 [facility] [id number] [place] [address] 04100- 0126 Aug, [facility] [id number] [place] [address] 58635- 0557 Aug, [facility] [address] 22958- 7137 Aug, Type 2 diabetes mellitus with diabetic autonomic (poly) neuropathy E11.43 [facility] [address] 96849- 5966 July, Type 2 diabetes mellitus with hyperglycemia E11.65 [facility] [address] 38053- 4628 Jun, Slow transit constipation K59.01 [facility] [address] 09282- 3846 May, [facility] [address] 84485- 2319 May, Diabetes E11.9 [place] [address] 86748- 7353 May, [facility] [id number] [place] [address] 75277 -9146 Apr, [facility] [id number] [place] [address] 51222- 9901 Apr, Gastroenteritis K52.9 [facility] [id number] [place] [address] 88994 -9565 Apr, Abdominal pain, unspecified location R10.9 ; Gastroenteritis K52.9 ; Type 2 diabetes mellitus with hyperglycemia E11.65 and nursing home current use of insulin Z79.4 [facility] [id number] [place] [address] 07845- 9081 Apr, [facility] [id number] [place] [address] 69850- 5951 Apr, [facility] [id number] [place] [address] 23694- 2254 Apr, Diabetes E11.9 ; Gastroparesis K31.84 ; Generalized abdominal pain R10.84 ; Essential hypertension I10 ; Bronchitis J40 and Other fatigue R53.83 [facility] [place] [address] 76456 -5085 Mar, [facility] [place] [address] 96165 -8136 Mar, [facility] [place] [address] 40419 -6774 Mar, Laceration of scalp without foreign body, initial encounter S01.01XA ; Laceration of face, initial encounter S01.81XA and Encounter for immunization Z23 [address] 97072- 6473 Mar, Type 2 diabetes mellitus with diabetic autonomic (poly) neuropathy E11.[address] 33186- 3203 Feb, [address] 12590- 9607 Feb, Internal hemorrhoids K64.8 and Obstructive sleep apnea syndrome G47.[address] 58623- 8503 Feb, SI (sacroiliac) joint dysfunction M53.[address] 07508- 2199 Jan, [address] 99097- 3802 Dec, Gastroparesis K31.[address] 89102- 2270 Dec, [address] 45388- 8332 Dec, Right hip pain M25.551 ; Nose congested R09.81 and Encounter for immunization Z23 [facility] [id number] [place] [address] 19175- 0592 13 Nov, 2015 Diabetes E11.9 ; Gastroparesis K31.84 ; Type 2 diabetes mellitus with diabetic autonomic (poly)neuropathy E11.43 and Obstructive sleep apnea syndrome G47.33 [facility] [id number] [place] [address] 67798- 3092 Oct, [facility] [id number] [place] [address] 91621- 3397 Aug, [place] [id number] [place] [address] 17796- 7468 July, Gastro-esophageal reflux disease without esophagitis K21.9 [place] [id number] [place] [address] 13963- 4806 July, [place] [id number] [place] [address] 34046- 4941 July, Diabetes E11.9 [facility] [id number] [place] [address] 83234- 6832 July, Diabetes E11.9 ; Obstructive sleep apnea syndrome G47.33 and Neuropathy G62.9 [place] [id number] [place] [address] 31172- 5842 July, Bipolar disorder, current episode depressed, moderate F31.32 ; BRITTANI (generalized anxiety disorder) F41.1 and Panic disorder with agoraphobia F40.01 [facility] [id number] [place] [address] 87423- 2991 Jun, [facility] [id number] [place] [address] 71556- 9393 Jun, [facility] [id number] [place] [address] 71604- 6795 Jun, [facility] [id number] [place] [address] 44587- 8283 Jun, [facility] [id number] [place] [address] [id number] May, Encounter for dental examination and cleaning without abnormal findings Z01.20 [place] [address] 24632- 8037 Apr, [place] [id number] [place] [address] 41016- 2736 Apr, [place] [address] 66131- 9657 Apr, Bipolar disorder, current episode depressed, moderate F31.32 ; BRITTANI (generalized anxiety disorder) F41.1 and Panic disorder with agoraphobia F40.01 [place] [address] 52716- 8524 04 Apr, 2015 Hyperlipidemia, unspecified E78.5 [facility] [id number] [place] [address] [id number] Apr, Dental caries K02.9 [facility] [id number] [place] [address] [id number] Feb, Dental caries K02.9 and Encounter for dental examination Z01.20 [place] [id number] [place] [address] 42441- 6611 Feb, [place] [id number] [place] [address] 21577- 1780 15 Feb, 2015 Diabetes E11.9 ; Insulin long-term use Z79.4 ; Diabetic polyneuropathy associated with diabetes mellitus due to underlying condition E08.42 and Barretts esophagus with high grade dysplasia K22.711 [place] [id number] [place] [address] 77150- 8907 14 Feb, [address] 21766- 5891 17 Jan, 2015 Pain in right hip M25.551 and Other chronic pain G89.[address] 79985- 1469 Jan, Impingement syndrome, shoulder, left M75.42 [facility] [id number] [place] [address] 61608- 7109 Jan, Bipolar disorder, current episode depressed, moderate F31.32 ; Generalized anxiety disorder F41.1 and Agoraphobia with panic disorder F40.01 [facility] [id number] [place] [address] 36399- 5529 Jan, [facility] [address] 74576- 8827 Dec, [facility] [address] 52757- 8963 Dec, [facility] [address] 48236- 1698 Dec, Right hip pain M25.551 and Left shoulder pain M25.512 [facility] [id number] [place] [address] 97516- 7860 Dec, Bipolar 1 disorder, depressed, moderate F31.32 ; BRITTANI ( generalized anxiety disorder) F41.1 and Panic disorder with agoraphobia F40.01 [facility] [id number] [place] [address] 27460- 5644 Dec, [facility] [id number] [place] [address] 00872- 7397 Dec, [facility] [id number] [place] [address] 60845- 0057 Nov, [facility] [id number] [place] [address] 10780- 0995 18 Nov, 2014 [facility] [id number] [place] [address] 74162- 0670 14 Nov, 2014 [facility] [id number] [place] [address] 60873- 6934 14 Nov, 2014 Diabetes 250.00 [facility] [address] [place] [address]- 9917 Oct, [facility] [id number] [place] [address]- 7587 Oct, [facility] [address] [place] [address]- 8656 Oct, [facility] [id number] [place] [address] 11329- 6204 Oct, [facility] [address] [place] [address]- 3763 Oct, [facility] [id number] [place] [address], [place] [address]- 9382 Oct, [facility] [address] [address]- 9719 Oct, Diabetes 250.00 ; Insomnia 780.52 and Forgetfulness 780.99 [facility] [id number] [address]- 3620 Oct, Depressive disorder, not elsewhere classified 311 [facility] [id number] [address]- 7844 Sep, [facility] [id number] [address]- 2573 Sep, [facility] [id number] [address]- 7237 Sep, [facility] [id number] [address]- 5494 Sep, [facility] [id number] [address]- 2391 Sep, [facility] [id number] [address]- 1460 Sep, [facility] [id number] [place] [address]- 5925 Sep, [facility] [address] [facility] [id number] [place] [address]- 7654 30 Aug, 2014 [facility] [address] [id number] [place] [id number] 10 Aug, 2014 Dental examination V72.2 [facility] [address] [id number] [place] [address]- 5882 Aug, [facility] [address] [id number] [place] [address]- 4127 Aug, [facility] [address] [id number] [place] [address]- 8945 July, [facility] [address] [id number] [place] [address]- 5237 July, [facility] [address] [id number] [place] [address]- 0235 July, [facility] [address] [id number] [place] [address]- 1676 July, [facility] [address] [id number] [place] [address]- 0127 Jun, [facility] [address] [id number] [place] [address]- 4252 Jun, [facility] [address] [id number] [place] [address]- 2782 May, [facility] [address] [id number] [place] [address]- 8512 May, [facility] [address] [id number] [place] [address]- 4434 May, [facility] [place] [facility] [address] [id number] [place] [address]- 6453 May, [facility] [address] [id number] [place] [address]- 1019 17 May, 2014 [facility] [place] [facility] [address] [id number] [place] [address]- 3678 May, [facility] [place] [facility] [address] [id number] [place] [address]- 2085 May, [facility] [place] [facility] [address] [id number] [place] [address]- 9576 May, [facility] [place] [facility] [address] [facility] [id number] [place] [address]- 6871 Apr, [facility] [place] [facility] [address] [id number] [place] [address]- 4345 Apr, [facility] [place] [facility] [address] [id number] [place] [address]- 0590 Apr, [facility] [place] [facility] [address] [facility] [id number] [place] [address]- 2762 Apr, [facility] [place] [facility] [address] [facility] [id number] [place] [address]- 8079 Apr, [facility] [place] [facility] [address] [facility] [id number] [place] [address]- 8834 Apr, [facility] [place] [facility] [address] [facility] [id number] [place] [address]- 2503 Mar, [facility] [place] [facility] [address] [facility] [id number] [place] [address]- 1703 Mar, [facility] [place] [facility] [address] [id number] [place] [address]- 2456 Mar, [facility] [place] [facility] [address] [id number] [place] [address]- 2897 Mar, [facility] [place] [facility] [address] [id number] [place] [address]- 5430 Mar, [facility] [place] [facility] [address] [facility] [id number] [place] [address]- 5478 Mar, [facility] [place] [facility] [address] [facility] [id number] [place] [address]- 4387 Mar, [facility] [place] [facility] [address] [id number] [place] [address]- 1550 Mar, [facility] [place] [facility] [address] [id number] [place] [address]- 6621 Mar, [facility] [place] [facility] [address] [id number] [place] [address]- 1235 Mar, [facility] [place] [facility] [address] [id number] [place] [address]- 5514 Mar, [facility] [place] [facility] [address] [id number] [place] [address]- 0722 Mar, [facility] [place] [facility] [address] [id number] [place] [address]- 9249 Mar, [facility] [place] [facility] [address] [id number] [place] [address]- 1176 Mar, [facility] [place] [facility] [address] [id number] [place] [address]- 3006 Feb, [facility] [place] [facility] [address] [id number] [place] [address]- 7874 30 Feb, 2014 [facility] [place] [facility] [address] [id number] [place] [address]- 2995 Feb, [facility] [place] [facility] [address] [id number] [place] [address]- 1121 Feb, [facility] [place] [facility] [address] [id number] [place] [address]- 1428 Feb, [facility] [place] [facility] [address] [id number] [place] [address]- 1210 Feb, [facility] [place] [facility] [address] [id number] [place] [address]- 2366 16 Feb, 2014 [facility] [place] [facility] [address] [id number] [place] [address]- 7076 16 Feb, 2014 [facility] [place] [facility] [address] [id number] [place] [address]- 7148 Feb, [facility] [place] [facility] [address] [id number] [place] 7427 Feb, [facility] [place] [facility] [address] [id number] [place] [address]- 3305 Feb, [facility] [place] [facility] [address] [id number] [place] [address]- 4754 Feb, [facility] [place] [facility] [address] [id number] [place] 3406 Feb, [facility] [place] [facility] [address] [id number] [place] [address]- 9463 Feb, [facility] [place] [facility] [address] [id number] [place] [address]- 5352 Jan, [facility] [place] [facility] [address] [id number] [place] [address]- 4828 Jan, [facility] [place] [facility] [address] [id number] [place] [address]- 3525 Jan, [facility] [place] [facility] [address] [id number] [place] [address]- 7001 Jan, [facility] [place] [facility] [address] [id number] [place] [address]- 1476 Dec, [facility] [place] [facility] [address] [id number] [address]- 9808 Dec, [facility] [place] [facility] [address] [id number] [address]- 7809 Dec, [facility] [place] [facility] [address] [id number] [place] 7875 Dec, [facility] [place] [facility] [address] [id number] [address]- 7893 Dec, [facility] [place] [facility] [address] [id number] [address]- 2309 Dec, [facility] [place] [facility] [address] [id number] [place] [address]- 3212 Dec, [facility] [place] [facility] [address] [id number] [place] [address]- 3071 Dec, [facility] [place] [facility] [address] [id number] [place] [address]- 1166 Nov, [facility] [place] [facility] [address] [id number] [place] [address]- 1206 Nov, [facility] [place] [facility] [address] [id number] [place] [address]- 4526 Nov, [facility] [place] [facility] [address] [id number] [place] [address] Nov, [facility] [place] [facility] [address] [id number] [place] [address] Nov, [facility] [place] [facility] [address] [id number] [place] [address] Oct, [facility] [place] [facility] [address] [id number] [place] [address] Oct, [facility] [place] [facility] [address] [id number] [place] [address] Sep, [facility] [place] [facility] [address] [id number] [place] [address] Sep, [facility] [place] [facility] [address] [id number] [place] [address] Sep, [facility] [place] [facility] [address] [id number] [place] [address] Sep, [facility] [place] [facility] [address] [id number] [place] [address] Sep, [facility] [place] [facility] [address] [id number] [place] [address] Sep, [facility] [place] [facility] [address] [id number] [place] [address] Sep, [facility] [place] [facility] [address] [id number] [place] [address] Sep, [facility] [place] [facility] [address] [id number] [place] [address] Sep, [facility] [place] [facility] [address] [id number] [place] [address] Sep, [facility] [place] [facility] [address] [id number] [place] [address] Sep, [facility] [place] [facility] [address] [id number] [place] [address] Sep, [facility] [place] [facility] [address] [id number] [place] [address] Sep, [facility] [place] [facility] [address] [id number] [place] [address] Sep, [facility] [place] [facility] [address] [id number] [place] [address] July, [facility] [place] [facility] [address] [id number] [place] [address] July, [facility] [place] [facility] [address] [id number] [place] [address] July, [facility] [place] [facility] [address] [id number] [place] [address] July, [facility] [place] [facility] [address] [id number] [place] [address] July, [facility] [place] [facility] [address] [id number] [place] [address] July, [facility] [place] [facility] [address] [id number] [place] [address] July, [facility] [place] [facility] [address] [id number] [place] [address] July, [facility] [place] [facility] [address] [id number] [place] [address] Jun, [facility] [place] [facility] [address] [id number] [place] [address] Jun, [facility] [place] [facility] [address] [id number] [place] [address] Jun, [facility] [place] [facility] [address] [id number] [place] [address] Jun, [facility] [place] [facility] [address] [id number] [place] [address] Jun, [facility] [place] [facility] [address] [id number] [place] [address] Jun, [facility] [place] [facility] [address] [id number] [place] [address] Jun, [facility] [place] [facility] [address] [id number] [place] [address] Jun, [facility] [place] [facility] [address] [id number] [place] [address] May, [facility] [facility] [address] [id number] [place] [address] May, [facility] [place] [facility] [address] [id number] [place] [address] May, [facility] [place] [facility] [address] [id number] [place] [address] 1944 May, [facility] [place] [facility] [address] [id number] [place] [address] May, [facility] [place] [facility] [address] [id number] [place] [address] May, [facility] [place] [facility] [address] [id number] [place] [address] May, [facility] [place] [facility] [address] [id number] [place] [address] 47[address] May, [facility] [place] [facility] [address] [id number] [place] [address] 2546 17 May, 2013 [facility] [place] [facility] [address] [id number] [place] [address]106 May, [facility] [place] [facility] [address] [id number] [place] [address] 2546 May, [facility] [place] [facility] [address] [id number] [place] [address]146 May, [facility] [place] [facility] [address] [id number] [place] [address] May, [facility] [place] [facility] [address] [id number] [place] [address] 68[address] May, [facility] [place] [facility] [address] [id number] [place] [address] 39[address] May, [facility] [facility] [address] [id number] [place] [address] May, [facility] [address] [id number] [place] [address] Apr, [facility] [address] [id number] [place] [address] Apr, [facility] [address] [id number] [place] [address] 8521 Mar, [facility] [address] [id number] [place] [address] 6683 Mar, [facility] [address] [id number] [place] [address] 9627 Mar, [facility] [address] [id number] [place] [address] Mar, [facility] [address] [id number] [place] [address] 2546 Mar, [facility] [facility] [address] [id number] [place] [address]- [address] Mar, [facility] [address] [id number] [place] [address] 3478 Feb, [facility] [facility] [address] [id number] [place] [address] 7514 Feb, [facility] [address] [id number] [place] [address] Feb, [facility] [address] [id number] [place] [address]- [address] Feb, [facility] [address] [id number] [place] [address]- 9683 Feb, [facility] [address] [id number] [place] [address] 1383 Feb, [facility] [facility] [address] [id number] [place] [address]- 3546 Jan, [facility] [address] [id number] [address]- 65[address] Jan, [facility] [address] [id number] [address]- 1074 Jan, [facility] [address] [id number] [address]- 1096 Jan, [facility] [address] [id number] [address]- 1417 Jan, [facility] [address] [id number] [address]- 3[address] Jan, [facility] [address] [id number] [place] [address] 9617 Jan, [facility] [address] [id number] [address] 8577 Dec, [facility] [address] [id number] [address]- [address] Dec, [facility] [address] [id number] [place] [address] 2546 Dec, [facility] [address] [id number] [place] [address]6 Nov, [facility] [address] [id number] [place] [address] 2546 Oct, [facility] [address] [id number] [place] [address]- [address]286 Sep, [facility] [address] [id number] [place] [address] 8328 Sep, [facility] [address] [id number] [place] [address]- 6144 Sep, [facility] [address] [id number] [place] [address]- 2905 Sep, [facility] [address] [id number] [place] [address]- 7077 Sep, [facility] [address] [id number] [place] [address] 8423 Sep, [facility] [address] [id number] [place] [address] 1538 Aug, [facility] [address] [id number] [place] [address]- 7151 Aug, [facility] [address] [id number] [place] [address]225 July, [facility] [address] [id number] [place] [address]- 2548 July, [facility] [address] [id number] [place] [address] 4045 July, [facility] [address] [id number] [place] [address]- 2546 July, [facility] [address] [id number] [place] [address] 9147 Jun, [facility] [address] [id number] [place] [address]- 3911 May, [facility] [address] [id number] [place] [address]- 8846 May, [facility] [address] [id number] [place] [address]- 6296 May, [facility] [address] [id number] [place] [address] 0931 Mar, [facility] [address] [id number] [place] [address] 2121 Mar, [facility] [address] [id number] [place] [address] Mar, [facility] [address] [id number] [place] [address]657 Feb, [facility] [address] [id number] [place] [address] Feb, [facility] [address] [id number] [place] [address]- 0695 Feb, [facility] [address] [id number] [place] [address] 7753 Feb, [facility] [address] [id number] [place] [address]- 1178 Feb, [facility] [address] [id number] [place] [address]- 9170 Feb, [facility] [address] [id number] [place] [address]- 4341 Feb, [facility] [address] [id number] [place] [address]- [address]231 Feb, [facility] [address] [id number] [place] [address]- 3871 Feb, [facility] [address] [id number] [place] [address] 67[address] Feb, [facility] [address] [id number] [place] [address]- 8814 Jan, [facility] [address] [id number] [place] [address]- 8621 Jan, [facility] [address] [facility] [id number] [place] [address]- 0060 Jan, [facility] [address] [id number] [place] [address]- 0983 Jan, [facility] [address] [id number] [place] [address]- 5630 Jan, [facility] [address] [id number] [place] [address]- 5833 Jan, [facility] [address] [id number] [place] [address]- 7430 Jan, [facility] [address] [id number] [place] [address]- 8117 Jan, [facility] [address] [id number] [place] [address]- 7052 Jan, [facility] [address] [id number] [place] [address]- 1370 Jan, [facility] [address] [id number] [address]- 4915 Dec, [facility] [address] [id number] [address]- 9456 18 Dec, 2011 [facility] [address] [id number] [place] [address]- 6098 26 Nov, 2011 [facility] [address] [id number] [address]- 7482 24 Nov, 2011 [facility] [address] [facility] [id number] [address]- 9432 05 Nov, 2011 [facility] [address] [id number] [place] [address]- 2740 27 Oct, 2011 [facility] [address] [id number] [place] [address]- 8664 Oct, [facility] [address] [id number] [place] [address]- 9286 Oct, [facility] [address] [id number] [place] [address]- 8606 Oct, [facility] [address] [id number] [place] [address]- 2393 18 Aug, 2011 [facility] [address] [id number] [place] [address]- 6972 15 Aug, 2011 [facility] [address] [id number] [place] [address]- 8994 14 Aug, 2011 [facility] [address] [id number] [place] [address]- 1823 07 Aug, 2011 [facility] [address] [id number] [place] [address]- 1792 08 Jun, 2011 [facility] [address] [id number] [place] [address]- 8836 07 May, 2011 [facility] [address] [id number] [place] [address]- 3084 06 May, 2011 [facility] [address] [id number] [place] [address]- 0900 Apr, [facility] [address] [id number] [place] [address]- 3995 20 Apr, 2011 [facility] [address] [id number] [place] [address]- 9771 15 Apr, 2011 [facility] [address] [id number] [place] [address]- 7866 14 Apr, 2011 [facility] [address] [id number] [place] [address]- 0140 Mar, [facility] [address] [id number] [place] [address]- 3893 Mar, [facility] [address] [id number] [place] [address]- 4115 Mar, [facility] [address] [id number] [place] [address]- 0009 18 Mar, 2011 [facility] [address] [id number] [place] [address]- 7107 Mar, [facility] [address] [id number] [place] [address]- 8187 Mar, [facility] [address] [id number] [place] [address]- 1740 Feb, [facility] [address] [id number] [place] [address]- 5109 Jan, [facility] [address] [id number] [place] [address]- 8008 Jan, [facility] [address] [id number] [place] [address]- 9072 Jan, [facility] [address] [id number] [address]- 1683 Jan, [facility] [facility] [address] [id number] [place] [address]- 6111 Jan, [facility] [facility] [address] [id number] [address]- 6427 Dec, [facility] [address] [id number] [place] [address]- 8768 May, [facility] [facility] [address] [id number] [address]- 9778 14 Apr, 2010 [facility] [address] [id number] [place] [address]- 4113 Mar, [facility] [address] [facility] [id number] [place] [address]- 4045 Feb, [facility] [address] [id number] [address]- 7329 Feb, [facility] [address] [id number] [address]- 5198 Feb, [facility] [id number] [address]- 0610 Feb, [facility] [address] [id number] [address]- [address] Dec, [place] [address] [id number] [address]- [address] Dec, IMMUNIZATIONS No Known Immunizations SOCIAL HISTORY Never Assessed REASON FOR VISIT DM-Imelda BUSTOS PLAN OF CARE Activity Details Follow Up 3 Months Reason:DM VITAL SIGNS Height 67 in 2017-06-15 Weight 204.2 lbs 2017-06-15 Temperature 97.7 degrees Fahrenheit 2017-06-15 Heart Rate 76 bpm 2017-06-15 Respiratory Rate 18 2017-06-15 BMI 31.98 kg/m2 2017-06-15 Blood pressure systolic 144 mmHg 2017-06-15 Blood pressure diastolic 86 mmHg 2017-06-15 MEDICATIONS Medication Instructions Dosage Frequency Start Date End Date Duration Status Metoprolol Tartrate 50 mg TAKE 1 TABLET TWICE DAILY 90 Active Prozac 20 MG Orally Once a day 1 capsule in the morning 24h May, 30 days Active BusPIRone HCl 10 MG TAKE ONE TABLET BY MOUTH IN THE MORNING, ONE TABLET AT NOON AND TWO TABLETS AT BEDTIME 30 Active Amlodipine Besylate 5 MG Orally Once a day 1 tablet 24h Active Metformin HCl 500 mg Orally Twice a day 2 tablet 12h 90 Active Atorvastatin Calcium 40 MG Orally Once a day 1 tablet 24h 90 Active Ondansetron 8 MG Orally every 6 hrs 1 tablet on the tongue and allow to dissolve 6h May, Not-Taking NovoLog Flexpen 100 UNIT/ML Subcutaneous 3 times a day. 30 UNITS Active Victoza 18 MG/3ML Subcutaneous Once a day Inject 1.8mg 24h 90 Active Levemir FlexTouch 100 units/ml Subcutaneous 2 times a day 65 units 12h Active C-PAP Machine N/A as directed Oct, Not-Taking Oxybutynin Chloride 5 MG Orally Twice a day 1 tablet 12h 90 Active Pantoprazole Sodium 40 MG TAKE ONE TABLET BY MOUTH ONCE DAILY 90 Active Zenpep 05947 UNIT Orally before meals and snacks 1 tablet Active Pen Nanjemoy 31G X 6 MM Inject July, 30 days Active Fish Oil 1000 MG Orally Three times a day 1 capsule 8h Active Vitamin E 100 UNIT Orally Once a day 1 capsule 24h Not-Taking Effexor XR 150 MG Orally Once a day 1 capsule with food 24h 90 Active OneTouch Ultra Test - test blood sugar 12h Nov, Active Aspir-81 81 MG Orally Once a day 1 tablet 24h Active Dapagliflozin Propanediol 5 mg Orally Once a day 1 tablet 24h Jun, Aug, 30 day(s) Active Adult Mask N/A as directed July, Not-Taking Quinapril HCl 20 MG TAKE 1 TABLET EVERY DAY 24h 90 Active Gabapentin 400 MG Orally 3 times a day 2 tablets 8h 30 days Active Nitrostat 0.4 MG Active RectiCare 5 % Externally Four times a day 1 application to anus as needed for pain 6h May, Not-Taking RESULTS Name Result Date Reference Range A1C (IN HOUSE) 2017-06-15 A1C IN HOUSE 12.0 4.3 - 5.6 % Previous A1c 8.1 Lot [id number] Exp date 01/2019 MICROALBUMIN, URINE (IN HOUSE) 2017-06-15 MICROALBUMIN abnormal Lot # [id number] Exp date 02/2018 Clarity cloudy Color yellow ALB 80 CRE 100 A:C (IN HOUSE) 30-300 Control normal Control Lot # Exp date PROCEDURES Procedure Date Ordered Result Body Site GLYCATED HEMOGLOBIN TEST June 15, 2017 MICROALBUMIN, SEMIQUANT June 15, 2017 INSTRUCTIONS MEDICATIONS ADMINISTERED No Known Medications MEDICAL [...] History right shoulder and spur removal 2016 Hospitalization History surgeries
--- OUTSIDE RECORDS SUMMARY | 2017-12-04 09:49 | XMS REPORT ---
Author Author JYOTSNA EMERY [facility] Address [address] [place] [address] Care Team Providers Care Receiving Inspector Name Role Phone JYOTSNA EMERY Unavailable PROBLEMS Type Condition ICD9-CM Code [id number] Code Onset Dates Condition Status SNOMED Code Problem Diabetes E11.9 Active 230811172 Problem Type 2 diabetes mellitus with hyperglycemia E11.65 Active 84801911 Problem Essential hypertension I10 Active 25078979 Problem Diabetic polyneuropathy associated with diabetes mellitus due to underlying condition E08.42 Active 00605975 Problem Rotator cuff syndrome of right shoulder M75.101 Active [id number] Problem Slow transit constipation K59.01 Active 18179983 Problem skilled nursing current use of insulin Z79.4 Active 359045168 Problem Constipation, unspecified constipation type K59.00 Active 87094564 Problem Irritable bowel syndrome, unspecified type K58.9 Active 66155691 Problem Barretts esophagus without dysplasia K22.70 Active 208053404 Problem 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 Nov, Active 4449587 Problem Herniation of intervertebral disc at C5-C6 level M50.222 Active 559659503 Problem Gastroparesis K31.84 Active 454917969 Problem Bipolar disorder, current episode depressed, moderate F31.32 Active 981443885 Problem Gastro-esophageal reflux disease without esophagitis K21.9 Active 039536323 Problem Panic disorder with agoraphobia F40.01 Active 00723631 Problem Type 2 diabetes mellitus with diabetic autonomic (poly)neuropathy E11.43 Active 704298576 Problem BRITTANI (generalized anxiety disorder) F41.1 Active 69991338 Problem Obstructive sleep apnea syndrome G47.33 Active 85828057 ALLERGIES No Information ENCOUNTERS Encounter Location Date Diagnosis [facility] [id number] [address] Oct, [facility] [id number] [place] [address] 60585- 0636 Oct, [facility] [id number] [place] [address] 81333- 8428 Sep, Type 2 diabetes mellitus with hyperglycemia E11.65 [facility] [id number] [place] [address] 50580- 2402 July, [place] [address] 63552- 0933 Jun, Type 2 diabetes mellitus with diabetic autonomic (poly) neuropathy E11.43 and Type 2 diabetes mellitus with hyperglycemia E11.65 [place] [address] 87094- 9502 May, [place] [id number] [place] [address] 59218- 6036 May, Bipolar disorder, current episode depressed, moderate F31.32 [facility] [id number] [place] [address] 97679 -4500 May, [place] [id number] [place] [address] 16377- 1149 May, Diabetic polyneuropathy associated with diabetes mellitus due to underlying condition E08.42 [place] [id number] [place] [address] 09483- 8626 Apr, [place] [id number] [place] [address] 50594- 4769 Feb, Ganglion cyst of dorsum of right wrist M67.431 [place] [id number] [place] [address] 96407- 2380 Jan, Other cyst of bone, right forearm M85.631 [place] [id number] [place] [address] 23587- 0488 Jan, [place] [id number] [place] [address] 83841- 5945 Jan, Diabetes E11.9 and Right forearm pain M79.631 [facility] [id number] [place] [address] 94611- 1474 Dec, Encounter for immunization Z23 [facility] [id number] [place] [address] 46794- 4507 Nov, [facility] [id number] [place] [address] 87479- 4604 Nov, Type 2 diabetes mellitus with hyperglycemia E11.65 [facility] [id number] [place] [address] 29359- 7400 15 Nov, 2016 Severe pain of right shoulder M25.511 [facility] [address] 83384- 4680 Oct, Diabetes E11.9 [facility] [id number] [place] [address] 19981- 7367 Oct, Diabetes E11.9 [facility] [id number] [place] [address] 83440- 3675 Oct, [facility] [id number] [place] [address] 96611- 7348 Oct, [facility] [id number] [place] [address] 63451- 4042 Oct, Rotator cuff syndrome of right shoulder M75.101 [facility] [id number] [place] [address] 76456- 0436 Oct, Diabetes E11.9 [facility] [id number] [place] [address] 61517- 7525 Sep, Type 2 diabetes mellitus with hyperglycemia E11.65 ; Obstructive sleep apnea syndrome G47.33 and Constipation, unspecified constipation type K59.00 [facility] [id number] [place] [address] 32571- 6110 Aug, [facility] [id number] [place] [address] 53852- 0527 Aug, [place] [id number] [place] [address] 58712- 7543 Aug, Type 2 diabetes mellitus with diabetic autonomic (poly) neuropathy E11.43 [place] [id number] [place] [address] 98852- 6836 July, Type 2 diabetes mellitus with hyperglycemia E11.65 [place] [id number] [place] [address] 27559- 6888 Jun, Slow transit constipation K59.01 [place] [id number] [place] [address] 85225- 6475 May, [place] [address] 24175- 3866 May, Diabetes E11.9 [place] [id number] [place] [address] 02907- 6294 May, [facility] [id number] [place] [address] 19927 -7948 Apr, [place] [id number] [place] [address] 89926- 5932 Apr, Gastroenteritis K52.9 [facility] [place] [id number] [place] [address] 14681 -0092 Apr, Abdominal pain, unspecified location R10.9 ; Gastroenteritis K52.9 ; Type 2 diabetes mellitus with hyperglycemia E11.65 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 [place] [id number] [place] [address] 40997- 9862 Apr, [place] [id number] [place] [address] 26209- 3502 Apr, [place] [id number] [place] [address] 64198- 0025 Apr, Diabetes E11.9 ; Gastroparesis K31.84 ; Generalized abdominal pain R10.84 ; Essential hypertension I10 ; Bronchitis J40 and Other fatigue R53.83 [facility] [id number] [place] [address] 58476 -9722 Mar, [facility] [address] 76501 -1059 Mar, [facility] [id number] [place] [address] 72501 -8957 Mar, Laceration of scalp without foreign body, initial encounter S01.01XA ; Laceration of face, initial encounter S01.81XA and Encounter for immunization Z23 [place] [address] 73449- 9325 Mar, Type 2 diabetes mellitus with diabetic autonomic (poly) neuropathy E11.43 [place] [address] 48526- 5192 Feb, [place] [address] 84261- 3353 Feb, Internal hemorrhoids K64.8 and Obstructive sleep apnea syndrome G47.33 [place] [address] 63541- 2247 Feb, SI (sacroiliac) joint dysfunction M53.3 [place] [address] 93616- 5195 Jan, [place] [address] 81376- 8739 Dec, Gastroparesis K31.84 [place] [id number] [place] [address] 44895- 5914 Dec, [place] [address] 48285- 7243 Dec, Right hip pain M25.551 ; Nose congested R09.81 and Encounter for immunization Z23 [place] [address] 77991- 8653 Nov, Diabetes E11.9 ; Gastroparesis K31.84 ; Type 2 diabetes mellitus with diabetic autonomic (poly)neuropathy E11.43 and Obstructive sleep apnea syndrome G47.33 [place] [id number] [place] [address] 88667- 0374 Oct, [place] [id number] [place] [address] 55911- 5432 Aug, [place] [address] 62375- 5093 July, Gastro-esophageal reflux disease without esophagitis K21.9 [place] [id number] [place] [address] 55397- 5289 July, [place] [id number] [place] [address] 34688- 3804 July, Diabetes E11.9 [place] [address] 94104- 4612 July, Diabetes E11.9 ; Obstructive sleep apnea syndrome G47.33 and Neuropathy G62.9 [place] [id number] [place] [address] 32597- 9646 July, Bipolar disorder, current episode depressed, moderate F31.32 ; BRITTANI (generalized anxiety disorder) F41.1 and Panic disorder with agoraphobia F40.01 [place] [id number] [place] [address] 66350- 1953 Jun, [facility] [id number] [place] [address] 50814- 9618 Jun, [place] [id number] [place] [address] 01627- 8405 Jun, [place] [address] 56757- 1866 Jun, [facility] [address] [place] [address] [id number] May, Encounter for dental examination and cleaning without abnormal findings Z01.20 [place] [id number] [place] [address] 19669- 6770 Apr, [place] [id number] [place] [address] 05756- 3630 Apr, [place] [id number] [place] [address] 80578- 6371 Apr, Bipolar disorder, current episode depressed, moderate F31.32 ; BRITTANI (generalized anxiety disorder) F41.1 and Panic disorder with agoraphobia F40.01 [place] [id number] [place] [address] 61664- 7227 Apr, Hyperlipidemia, unspecified E78.5 [facility] [id number] [place] [address] [id number] Apr, Dental caries K02.9 [facility] [address] [id number] Feb, Dental caries K02.9 and Encounter for dental examination Z01.20 [place] [id number] [place] [address] 63288- 9121 Feb, [place] [id number] [place] [address] 68597- 3269 Feb, Diabetes E11.9 ; Insulin long-term use Z79.4 ; Diabetic polyneuropathy associated with diabetes mellitus due to underlying condition E08.42 and Barretts esophagus with high grade dysplasia K22.711 [place] [id number] [place] [address] 76458- 6003 14 Feb, 2015 [place] [id number] [place] [address] 80225- 7708 17 Jan, 2015 Pain in right hip M25.551 and Other chronic pain G89.29 [place] [id number] [place] [address] 49941- 8176 05 Jan, 2015 Impingement syndrome, shoulder, left M75.42 [place] [address] [place] [address]- 9750 Jan, Bipolar disorder, current episode depressed, moderate F31.32 ; Generalized anxiety disorder F41.1 and Agoraphobia with panic disorder F40.01 [facility] [id number] [place] [address] 64168- 6191 Jan, [facility] [id number] [place] [address] 07972- 9929 Dec, [facility] [id number] [place] [address] 46516- 6095 Dec, [facility] [id number] [place] [address] 92581- 7671 Dec, Right hip pain M25.551 and Left shoulder pain M25.512 [facility] [id number] [place] [address] 03205- 1307 Dec, Bipolar 1 disorder, depressed, moderate F31.32 ; BRITTANI ( generalized anxiety disorder) F41.1 and Panic disorder with agoraphobia F40.01 [facility] [id number] [place] [address] 25536- 9714 Dec, [facility] [id number] [place] [address] 29775- 3091 Dec, [facility] [address] [address]- 4252 Nov, [facility] [id number] [place] [address] 24563- 6619 18 Nov, 2014 [facility] [id number] [place] [address] 06500- 4347 14 Nov, 2014 [facility] [id number] [place] [address] 34667- 7453 14 Nov, 2014 Diabetes 250.00 [facility] [id number] [place] [address] 30438- 3005 Oct, [facility] [address] [place] [address]- 9659 Oct, [facility] [address] [address]- 5452 Oct, [facility] [address] [address]- 5565 Oct, [facility] [address] 5835 Oct, [facility] [address] [address]- 3759 Oct, [facility] [address] [place] [address] 87020- 0912 Oct, Diabetes 250.00 ; Insomnia 780.52 and Forgetfulness 780.99 [facility] [address] [address]- 6507 Oct, Depressive disorder, not elsewhere classified 311 [facility] [address] [address]- 9135 Sep, [facility] [address] [address]- 3819 Sep, [facility] [address] [address]- 5316 Sep, [facility] [address] [address]- 2792 Sep, [facility] [address] [address]- 9983 Sep, [facility] [address] [address]- 7094 Sep, [facility] [address] 8327 Sep, [facility] [id number] [address]- 2882 Aug, [facility] [address] [id number] 10 Aug, 2014 Dental examination V72.2 [facility] [address] [id number] [place] [address]- 4124 Aug, [facility] [place] [facility] [address] [id number] [place] [address]- 9216 Aug, [facility] [address] [id number] [place] [address]- 5403 July, [facility] [place] [facility] [address] [id number] [place] [address]- 8923 July, [facility] [place] [facility] [address] [id number] [place] [address]- 5944 July, [facility] [place] [facility] [address] [facility] [id number] [place] [address]- 4436 July, [facility] [place] [facility] [address] [facility] [id number] [place] [address]- 4514 Jun, [facility] [address] [id number] [place] [address]- 4873 Jun, [facility] [place] [facility] [address] [id number] [place] [address]- 8291 23 May, 2014 [facility] [place] [facility] [address] [id number] [place] 2801 23 May, 2014 [facility] [place] [facility] [address] [id number] [place] [address]- 8647 19 May, 2014 [facility] [place] [facility] [address] [id number] [place] [address]- 8387 19 May, 2014 [facility] [place] [facility] [address] [id number] [place] [address]- 4527 17 May, 2014 [facility] [place] [facility] [address] [id number] [place] [address]- 2546 17 May, 2014 [facility] [place] [facility] [address] [facility] [id number] [place] [address]- 6517 May, [facility] [place] [facility] [address] [id number] [place] [address]- 7961 May, [facility] [place] [facility] [address] [id number] [place] [address]- 3802 Apr, [facility] [place] [facility] [address] [id number] [place] [address]- 7712 Apr, [facility] [place] [facility] [address] [id number] [place] [address]- 8413 Apr, [facility] [place] [facility] [address] [id number] [place] [address]- 9408 Apr, [facility] [place] [facility] [address] [id number] [place] [address]- 4348 Apr, [facility] [place] [facility] [address] [id number] [place] [address]- 7721 Apr, [facility] [place] [facility] [address] [id number] [place] [address]- 9829 Mar, [facility] [place] [facility] [address] [id number] [place] [address]- 2000 Mar, [facility] [place] [facility] [address] [id number] [place] [address]- 7338 Mar, [facility] [place] [facility] [address] [id number] [place] [address]- 2801 Mar, [facility] [place] [facility] [address] [id number] [place] [address]- 6018 Mar, [facility] [place] [facility] [address] [id number] [place] [address]- 8818 Mar, [facility] [place] [facility] [address] [id number] [place] [address]- 2418 Mar, [facility] [place] [facility] [address] [id number] [place] [address]- 2727 Mar, [facility] [place] [facility] [address] [id number] [place] [address]- 7585 Mar, [facility] [address] [id number] [place] [address]- 3144 Mar, [facility] [address] [id number] [place] [address]- 0211 Mar, [facility] [address] [id number] [place] [address]- 4618 Mar, [facility] [address] [id number] [place] [address]- 4910 Mar, [facility] [address] [id number] [place] [address]- 4527 Mar, [facility] [address] [id number] [place] [address]- 7107 Feb, [facility] [address] [id number] [place] [address]- 1309 30 Feb, 2014 [facility] [address] [id number] [place] [address]- 5995 Feb, [facility] [address] [id number] [place] [address]- 2857 Feb, [facility] [address] [id number] [place] [address]- 2460 Feb, [facility] [place] [facility] [address] [id number] [place] [address]- 9135 19 Feb, 2014 [facility] [address] [id number] [place] [address]- 5115 16 Feb, 2014 [facility] [place] [facility] [address] [id number] [place] 3821 16 Feb, 2014 [facility] [place] [facility] [address] [id number] [place] 3131 16 Feb, 2014 [facility] [place] [facility] [address] [id number] [place] [address]- 3273 Feb, [facility] [place] [facility] [address] [id number] [place] [address]- 0877 Feb, [facility] [place] [facility] [address] [id number] [place] [address]- 4573 Feb, [facility] [place] [facility] [address] [id number] [place] [address]- 0016 Feb, [facility] [place] [facility] [address] [id number] [place] [address]- 5871 Feb, [facility] [place] [facility] [address] [id number] [place] [address]- 5487 Jan, [facility] [place] [facility] [address] [id number] [place] [address]- 6248 Jan, [facility] [place] [facility] [address] [id number] [place] [address]- 6500 Jan, [facility] [place] [facility] [address] [id number] [place] [address]- 9500 Jan, [facility] [place] [facility] [address] [id number] [place] [address]- 9850 Dec, [facility] [place] [facility] [address] [id number] [place] [address]- 2047 Dec, [facility] [place] [facility] [address] [facility] [id number] [address]- 9446 Dec, [facility] [place] [facility] [address] [id number] [address]- 0221 Dec, [facility] [place] [facility] [address] [id number] [address]- 5298 Dec, [facility] [place] [facility] [address] [id number] [place] [address] Dec, [facility] [place] [facility] [address] [facility] [id number] [place] [address] Dec, [facility] [place] [facility] [address] [id number] [place] [address] Dec, [facility] [place] [facility] [address] [id number] [place] [address] Nov, [facility] [place] [facility] [address] [id number] [place] [address] Nov, [facility] [place] [facility] [address] [id number] [place] [address] Nov, [facility] [place] [facility] [address] [id number] [place] [address] Nov, [facility] [place] [facility] [address] [id number] [place] [address] Nov, [facility] [place] [facility] [address] [id number] [place] [address] Oct, [facility] [place] [facility] [address] [id number] [place] [address] Oct, [facility] [place] [facility] [address] [id number] [place] [address] Sep, [facility] [place] [facility] [address] [id number] [place] [address] Sep, [facility] [place] [facility] [address] [id number] [place] [address] Sep, [facility] [place] [facility] [address] [id number] [place] [address]- [address] Sep, [facility] [place] [facility] [address] [id number] [place] [address]- [address] Sep, [facility] [place] [facility] [address] [id number] [place] [address]- [address] Sep, [facility] [place] [facility] [address] [id number] [place] [address] Sep, [facility] [place] [facility] [address] [id number] [place] [address] Sep, [facility] [place] [facility] [address] [id number] [place] [address] Sep, [facility] [place] [facility] [address] [id number] [place] [address] Sep, [facility] [place] [facility] [address] [id number] [place] [address]- [address] Sep, [facility] [place] [facility] [address] [id number] [place] [address] Sep, [facility] [place] [facility] [address] [id number] [place] [address]- [address] Sep, [facility] [place] [facility] [address] [id number] [place] [address]- [address] Sep, [facility] [place] [facility] [address] [id number] [place] [address] July, [facility] [place] [facility] [address] [id number] [place] [address] July, [facility] [place] [facility] [address] [id number] [place] [address] July, [facility] [place] [facility] [address] [id number] [place] [address] July, [facility] [place] [facility] [address] [id number] [place] [address] July, [facility] [place] [facility] [address] [id number] [place] [address] July, [facility] [place] [facility] [address] [id number] [place] [address] July, [facility] [place] [facility] [address] [id number] [place] [address]- [id number] July, [facility] [place] [facility] [address] [id number] [place] [address] Jun, [facility] [place] [facility] [address] [id number] [place] [address] 8635 17 Jun, 2013 [facility] [place] [facility] [address] [id number] [place] [address] 15 Jun, 2013 [facility] [place] [facility] [address] [id number] [place] [address] 15 Jun, 2013 [facility] [place] [facility] [address] [id number] [place] [address] Jun, [facility] [place] [facility] [address] [id number] [place] [address]- 4[address] Jun, [facility] [place] [facility] [address] [id number] [place] [address] Jun, [facility] [place] [facility] [address] [id number] [place] [address]- 8525 Jun, [facility] [place] [facility] [address] [id number] [place] [address] 9219 May, [facility] [place] [facility] [address] [id number] [place] [address]- 6[address] 27 May, 2013 [facility] [place] [facility] [address] [id number] [place] [address]- 1286 May, [facility] [place] [facility] [address] [id number] [place] [address]- 7686 May, [facility] [place] [facility] [address] [id number] [place] [address]- 5939 May, [facility] [place] [facility] [address] [id number] [place] [address]- 6955 20 May, 2013 [facility] [place] [facility] [address] [id number] [place] [address]- 6315 19 May, 2013 [facility] [place] [facility] [address] [id number] [place] [address]- 6364 19 May, 2013 [facility] [place] [facility] [address] [id number] [place] [address]- 2784 17 May, 2013 [facility] [place] [facility] [address] [id number] [place] [address]- 4331 17 May, 2013 [facility] [place] [facility] [address] [id number] [place] [address]- 4938 May, [facility] [place] [facility] [address] [id number] [place] [address]- 3099 May, [facility] [place] [facility] [address] [id number] [place] [address]- 7693 May, [facility] [place] [facility] [address] [id number] [place] [address]- 9688 May, [facility] [place] [facility] [address] [id number] [place] [address]- 0036 May, [facility] [place] [facility] [address] [id number] [place] [address]- 9666 May, [facility] [place] [facility] [address] [id number] [place] [address]- 1294 Apr, [facility] [place] [facility] [address] [id number] [place] [address] 1888 Apr, [facility] [place] [facility] [address] [id number] [place] [address]- 2525 Mar, [facility] [place] [facility] [address] [id number] [place] [address]- 6720 Mar, [facility] [place] [facility] [address] [id number] [place] [address]- 2732 Mar, [facility] [place] [facility] [address] [id number] [place] [address]- 3687 Mar, [facility] [place] [facility] [address] [id number] [place] [address]- 8100 Mar, [facility] [place] [facility] [address] [id number] [place] [address]- 6591 Mar, [facility] [place] [facility] [address] [id number] [place] [address]- 8453 Feb, [facility] [place] [facility] [address] [id number] [place] [address] Feb, [facility] [place] [facility] [address] [id number] [place] [address]- 1344 Feb, [facility] [address] [id number] [place] [address]- 9229 Feb, [facility] [place] [facility] [address] [id number] [place] [address]- 7179 Feb, [facility] [address] [id number] [place] [address] Feb, [facility] [place] [facility] [address] [id number] [place] [address]- 4879 Jan, [facility] [address] [id number] [place] [address]- 3675 Jan, [facility] [address] [id number] [place] [address]- 9156 Jan, [facility] [address] [id number] [place] [address]- 8271 Jan, [facility] [address] [id number] [place] [address]- 7480 Jan, [facility] [address] [id number] [place] [address]- 1734 Jan, [facility] [place] [facility] [address] [id number] [address] 3791 Jan, [facility] [place] [facility] [address] [id number] [place] [address] 8505 Dec, [facility] [place] [facility] [address] [id number] [place] [address]- 4489 Dec, [facility] [place] [facility] [address] [id number] [place] [address] 9550 Dec, [facility] [place] [facility] [address] [id number] [place] [address]- 0787 Nov, [facility] [address] [id number] [place] [address]- 0680 Oct, [facility] [place] [facility] [address] [id number] [place] [address]- 3356 Sep, [facility] [place] [facility] [address] [id number] [place] [address]- 1281 Sep, [facility] [place] [facility] [address] [id number] [place] [address]- 0317 Sep, [facility] [place] [facility] [address] [id number] [place] [address]- 5547 Sep, [facility] [place] [facility] [address] [id number] [place] [address]- 7857 Sep, [facility] [address] [id number] [place] [address]- 6556 Sep, [facility] [place] [facility] [address] [id number] [place] [address]- 2166 Aug, [facility] [place] [facility] [address] [id number] [place] [address]- 1474 Aug, [facility] [place] [facility] [address] [id number] [place] [address]- 7363 July, [facility] [place] [facility] [address] [id number] [place] [address] 1906 July, [facility] [place] [facility] [address] [id number] [place] [address]- 5817 July, [facility] [place] [facility] [address] [id number] [place] [address]- 1695 July, [facility] [place] [facility] [address] [id number] [place] [address]- 9888 Jun, [facility] [place] [facility] [address] [id number] [place] [address]- 6443 May, [facility] [place] [facility] [address] [id number] [place] [address] 2546 May, [facility] [address] [id number] [place] [address]- 9017 May, [facility] [address] [id number] [place] [address]- 9716 Mar, [facility] [address] [id number] [place] [address]- 0360 Mar, [facility] [address] [id number] [place] [address]- 6785 Mar, [facility] [address] [id number] [place] [address]- 4401 Feb, [facility] [address] [id number] [place] [address]- 4151 Feb, [facility] [address] [id number] [place] [address]- 2090 Feb, [facility] [address] [id number] [place] [address]- 3995 Feb, [facility] [address] [id number] [place] [address]- 7205 Feb, [facility] [address] [id number] [place] [address]- 3221 Feb, [facility] [address] [id number] [place] [address]- 0596 Feb, [facility] [address] [id number] [place] [address]- 6312 Feb, [facility] [place] [facility] [address] [id number] [place] [address]- 0743 Feb, [facility] [address] [id number] [place] [address]- 6976 Feb, [facility] [address] [id number] [place] [address] Jan, [facility] [place] [facility] [address] [id number] [place] [address]- 9490 Jan, [facility] [place] [facility] [address] [id number] [place] [address]- 2306 Jan, [facility] [place] [facility] [address] [id number] [place] [address]- 9417 Jan, [facility] [place] [facility] [address] [id number] [place] [address]- 9889 Jan, [facility] [place] [facility] [address] [id number] [place] [address]- 9967 Jan, [facility] [place] [facility] [address] [id number] [place] [address]- 7119 Jan, [facility] [place] [facility] [address] [id number] [place] [address]- 2796 Jan, [facility] [place] [facility] [address] [id number] [place] [address]- 4719 Jan, [facility] [place] [facility] [address] [id number] [place] [address]- 9901 Jan, [facility] [place] [facility] [address] [id number] [place] [address]- 0643 Dec, [facility] [place] [facility] [address] [id number] [place] [address]- 0100 Dec, [facility] [place] [facility] [address] [id number] [place] [address]- 5608 Nov, [facility] [place] [facility] [address] [id number] [place] [address]- 8865 24 Nov, 2011 [facility] [place] [facility] [address] [id number] [place] [address]- 6977 05 Nov, 2011 [facility] [place] [facility] [address] [id number] [place] [address]- 2398 Oct, [facility] [place] [facility] [address] [id number] [place] [address]- 4975 Oct, [facility] [place] [facility] [address] [id number] [place] [address]- 5446 Oct, [facility] [place] [facility] [address] [id number] [place] [address]- 5806 Oct, [facility] [place] [facility] [address] [id number] [place] [address]- 2130 18 Aug, 2011 [facility] [place] [facility] [address] [id number] [place] [address]- 4689 15 Aug, 2011 [facility] [place] [facility] [address] [id number] [place] [address]- 1672 14 Aug, 2011 [facility] [place] [facility] [address] [id number] [place] [address]- 9979 07 Aug, 2011 [facility] [place] [facility] [address] [id number] [place] [address]- 3208 08 Jun, 2011 [facility] [place] [facility] [address] [id number] [place] [address]- 2857 07 May, 2011 [facility] [place] [facility] [address] [id number] [place] [address]- 6003 06 May, 2011 [facility] [place] [facility] [address] [id number] [place] [address]- 7627 20 Apr, 2011 [facility] [place] [facility] [address] [id number] [place] [address]- 3299 20 Apr, 2011 [facility] [place] [facility] [address] [id number] [place] [address]- 8627 15 Apr, 2011 [facility] [place] [facility] [address] [id number] [place] [address]- 3031 14 Apr, 2011 [facility] [place] [facility] [address] [id number] [place] [address]- 9856 Mar, [facility] [place] [facility] [address] [id number] [place] [address]- 3962 Mar, [facility] [place] [facility] [address] [id number] [place] [address]- 5489 19 Mar, 2011 [facility] [address] [id number] [place] [address]- 0995 18 Mar, 2011 [facility] [place] [facility] [address] [id number] [place] [address]- 1981 13 Mar, 2011 [facility] [address] [id number] [place] [address]- 2416 Mar, [facility] [address] [id number] [place] [address]- 1616 Feb, [facility] [place] [facility] [address] [id number] [place] [address]- 6808 Jan, [facility] [address] [id number] [place] [address]- 4406 Jan, [facility] [address] [id number] [place] [address]- 9412 Jan, [facility] [place] [facility] [address] [id number] [place] [address]- 0171 Jan, [facility] [address] [id number] [place] [address]- 1179 Jan, [facility] [place] [facility] [address] [id number] [place] [address]- 9024 Dec, [facility] [address] [id number] [place] [address]- 9362 May, [facility] [place] [facility] [address] [id number] [place] [address]- 6398 14 Apr, 2010 [facility] [place] [facility] [address] [id number] [place] [address]- 1086 Mar, [facility] [place] [facility] [address] [id number] [place] [address]- 7556 Feb, [facility] [place] [facility] [address] [id number] [place] [address] Feb, [facility] [address] [facility] [id number] [place] [address]- 8865 Feb, [facility] [address] [facility] [id number] [place] [address]- 3672 13 Feb, 2010 [facility] [address] [facility] [id number] [place] [address]- 7803 11 Dec, 2009 [facility] [address] [facility] [id number] [place] [address]- 0783 11 Dec, 2009 IMMUNIZATIONS No Known Immunizations SOCIAL HISTORY Never Assessed REASON FOR VISIT Requests return call PLAN OF CARE VITAL SIGNS MEDICATIONS Unknown Medications RESULTS No Results PROCEDURES No Known procedures [...]
--- OUTSIDE RECORDS SUMMARY | 2017-12-04 09:50 | XMS REPORT ---
Author Author JYOTSNA EMERY [facility] Address [address] [place] [address] Care Team Providers Care Research Laboratory Specialist Name Role Phone JYOTSNA EMERY Unavailable PROBLEMS Type Condition ICD9-CM Code YLT37-AE Code Onset Dates Condition Status SNOMED Code Problem Diabetes E11.9 Active 849641376 Problem Type 2 diabetes mellitus with hyperglycemia E11.65 Active 77756195 Problem Essential hypertension I10 Active 74275575 Problem Diabetic polyneuropathy associated with diabetes mellitus due to underlying condition E08.42 Active 38568823 Problem Rotator cuff syndrome of right shoulder M75.101 Active [id number] Problem Slow transit constipation K59.01 Active 05051810 Problem half-way current use of insulin Z79.4 Active 375335993 Problem Constipation, unspecified constipation type K59.00 Active 53232218 Problem Irritable bowel syndrome, unspecified type K58.9 Active 66788565 Problem Barretts esophagus without dysplasia K22.70 Active 589581746 Problem 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 Nov, Active 4102884 Problem Herniation of intervertebral disc at C5-C6 level M50.222 Active 443053352 Problem Gastroparesis K31.84 Active 178119127 Problem Bipolar disorder, current episode depressed, moderate F31.32 Active 632846486 Problem Gastro-esophageal reflux disease without esophagitis K21.9 Active 908702531 Problem Panic disorder with agoraphobia F40.01 Active 09881673 Problem Type 2 diabetes mellitus with diabetic autonomic (poly)neuropathy E11.43 Active 140482842 Problem BRITTANI (generalized anxiety disorder) F41.1 Active 42113345 Problem Obstructive sleep apnea syndrome G47.33 Active 45040119 ALLERGIES No Information ENCOUNTERS Encounter Location Date Diagnosis [facility] [id number] [address] Oct, [facility] [address] [address] July, [place] [address] [address]- 8566 Jun, Type 2 diabetes mellitus with diabetic autonomic (poly) neuropathy E11.43 and Type 2 diabetes mellitus with hyperglycemia E11.65 [place] [address] [address]- 5572 May, [place] [address] 37695- 3268 May, Bipolar disorder, current episode depressed, moderate F31.32 [facility] [address] [address] May, [place] [address] 28676- 9676 May, Diabetic polyneuropathy associated with diabetes mellitus due to underlying condition E08.42 [place] [address] 14137- 8216 Apr, [place] [address] 37699- 1680 Feb, Ganglion cyst of dorsum of right wrist M67.431 [place] [address] 39598- 8034 Jan, Other cyst of bone, right forearm M85.631 [place] [address] 71057- 4667 Jan, [place] [address] 56618- 8812 Jan, Diabetes E11.9 and Right forearm pain M79.631 [place] [address] 06108- 3266 Dec, Encounter for immunization Z23 [place] [address] 18295- 3058 Nov, [facility] [address] [address] 12[address] Nov, Type 2 diabetes mellitus with hyperglycemia E11.65 [facility] [id number] [place] [address] 89663- 5566 Nov, Severe pain of right shoulder M25.511 [facility] [id number] [place] [address] 51990- 0708 Oct, Diabetes E11.9 [facility] [id number] [place] [address] 92584- 2392 Oct, Diabetes E11.9 [facility] [id number] [place] [address] 46762- 3036 Oct, [facility] [id number] [place] [address] 52320- 9301 Oct, [facility] [id number] [place] [address] 48336- 4582 Oct, Rotator cuff syndrome of right shoulder M75.101 [facility] [id number] [place] [address] 72056- 2260 Oct, Diabetes E11.9 [facility] [id number] [place] [address] 90044- 5937 Sep, Type 2 diabetes mellitus with hyperglycemia E11.65 ; Obstructive sleep apnea syndrome G47.33 and Constipation, unspecified constipation type K59.00 [facility] [id number] [place] [address] 03310- 5240 Aug, [facility] [id number] [place] [address] 01114- 0585 Aug, [facility] [id number] [place] [address] 16973- 4993 Aug, Type 2 diabetes mellitus with diabetic autonomic (poly) neuropathy E11.43 [facility] [id number] [place] [address] 14116- 8555 July, Type 2 diabetes mellitus with hyperglycemia E11.65 [place] [id number] [place] [address] 61938- 6904 Jun, Slow transit constipation K59.01 [place] [id number] [place] [address] 26561- 5833 May, [place] [address] 05998- 9894 May, Diabetes E11.9 [place] [address] 12622- 9773 May, [facility] [place] [address] 73462 -0786 Apr, [place] [address] 87287- 4117 Apr, Gastroenteritis K52.9 [facility] [place] [address] 24268 -8559 Apr, Abdominal pain, unspecified location R10.9 ; Gastroenteritis K52.9 ; Type 2 diabetes mellitus with hyperglycemia E11.65 and half-way current use of insulin Z79.4 [place] [id number] [place] [address] 27596- 7064 Apr, [place] [id number] [place] [address] 64764- 4958 Apr, [place] [id number] [place] [address] 38715- 6359 Apr, Diabetes E11.9 ; Gastroparesis K31.84 ; Generalized abdominal pain R10.84 ; Essential hypertension I10 ; Bronchitis J40 and Other fatigue R53.83 [facility]note 3] [id number] [place] [address] 45262 -1388 Mar, [facility] [place] [id number] [place] [address] 11037 -1701 Mar, [facility] [address] [address] 11 Mar, 2016 Laceration of scalp without foreign body, initial encounter S01.01XA ; Laceration of face, initial encounter S01.81XA and Encounter for immunization Z23 [facility] [id number] [place] [address] 35267- 7863 09 Mar, 2016 Type 2 diabetes mellitus with diabetic autonomic (poly) neuropathy E11.43 [place] [id number] [place] [address] 03075- 7243 Feb, [facility] [id number] [place] [address] 93135- 0740 Feb, Internal hemorrhoids K64.8 and Obstructive sleep apnea syndrome G47.33 [place] [id number] [place] [address] 48262- 2170 Feb, SI (sacroiliac) joint dysfunction M53.3 [place] [address] 16735- 9852 Jan, [facility] [id number] [place] [address] 54535- 5732 Dec, Gastroparesis K31.84 [facility] [id number] [place] [address] 06711- 6844 Dec, [place] [id number] [place] [address] 47071- 5381 Dec, Right hip pain M25.551 ; Nose congested R09.81 and Encounter for immunization Z23 [facility] [id number] [place] [address] 29929- 1982 Nov, Diabetes E11.9 ; Gastroparesis K31.84 ; Type 2 diabetes mellitus with diabetic autonomic (poly)neuropathy E11.43 and Obstructive sleep apnea syndrome G47.33 [facility] [id number] [place] [address] 46992- 7917 Oct, [place] [id number] [place] [address] 07562- 3232 Aug, [facility] [id number] [place] [address] 99225- 7887 July, Gastro-esophageal reflux disease without esophagitis K21.9 [facility] [id number] [place] [address] 23685- 9249 July, [facility] [address] 99004- 3595 July, Diabetes E11.9 [facility] [address] 17626- 9356 July, Diabetes E11.9 ; Obstructive sleep apnea syndrome G47.33 and Neuropathy G62.9 [facility] [id number] [place] [address] 20832- 8409 July, Bipolar disorder, current episode depressed, moderate F31.32 ; BRITTANI (generalized anxiety disorder) F41.1 and Panic disorder with agoraphobia F40.01 [facility] [id number] [place] [address] 30800- 1493 Jun, [facility] [id number] [place] [address] 07737- 5677 Jun, [facility] [id number] [place] [address] 52710- 0584 Jun, [facility] [id number] [place] [address] 19016- 5928 Jun, [facility] [id number] [place] [address] [id number] May, Encounter for dental examination and cleaning without abnormal findings Z01.20 [facility] [id number] [place] [address] 02239- 1687 Apr, [facility] [id number] [place] [address] 05592- 1612 Apr, [facility] [id number] [place] [address]- 9052 04 Apr, 2015 Bipolar disorder, current episode depressed, moderate F31.32 ; BRITTANI (generalized anxiety disorder) F41.1 and Panic disorder with agoraphobia F40.01 [place] [id number] [place] [address] 79454- 1789 04 Apr, 2015 Hyperlipidemia, unspecified E78.5 [facility] [address] [id number] Apr, Dental caries K02.9 [facility] [address] [id number] Feb, Dental caries K02.9 and Encounter for dental examination Z01.[address] 51675- 4174 Feb, [address] 94434- 2305 Feb, Diabetes E11.9 ; Insulin long-term use Z79.4 ; Diabetic polyneuropathy associated with diabetes mellitus due to underlying condition E08.42 and Barretts esophagus with high grade dysplasia K22.[address] 75628- 6287 14 Feb, [address] 33198- 4852 17 Jan, 2015 Pain in right hip M25.551 and Other chronic pain G89.29 [place] [id number] [place] [address] 79685- 5843 05 Jan, 2015 Impingement syndrome, shoulder, left M75.[address] 77999- 4409 05 Jan, 2015 Bipolar disorder, current episode depressed, moderate F31.32 ; Generalized anxiety disorder F41.1 and Agoraphobia with panic disorder F40.[address] 56504- 0400 Jan, [facility] [address] [place] [address] 63391- 8933 Dec, [facility] [id number] [place] [address] 054093- 0464 Dec, [facility] [id number] [place] [address] 350391- 0096 Dec, Right hip pain M25.551 and Left shoulder pain M25.512 [facility] [id number] [place] [address] 975273- 7160 Dec, Bipolar 1 disorder, depressed, moderate F31.32 ; BRITTANI ( generalized anxiety disorder) F41.1 and Panic disorder with agoraphobia F40.01 [facility] [id number] [place] [address] 95705- 9414 Dec, [facility] [id number] [place] [address] 63423- 1570 Dec, [facility] [id number] [place] [address] 73632- 1019 28 Nov, 2014 [facility] [id number] [place] [address] 94903- 3041 18 Nov, 2014 [facility] [id number] [place] [address] 81684- 0679 14 Nov, 2014 [facility] [id number] [place] [address] 11573- 6738 14 Nov, 2014 Diabetes 250.00 [facility] [id number] [place] [address] 02952- 6349 Oct, [facility] [id number] [place] [address] 78024594- 8849 Oct, [facility] [id number] [place] [address] 133305- 3501 Oct, [facility] [id number] [place] [address] 82739- 3950 Oct, [facility] [address] [address]- 1019 Oct, [facility] [id number] [place] [address] 99869- 1950 Oct, [facility] [id number] [address]- 7437 Oct, Diabetes 250.00 ; Insomnia 780.52 and Forgetfulness 780.99 [facility] [id number] [address]- 0358 Oct, Depressive disorder, not elsewhere classified 311 [facility] [id number] [place] [address] 57918- 9652 Sep, [facility] [id number] [place] [address] 00560- 5990 Sep, [facility] [id number] [place] [address] 78845- 4084 Sep, [facility] [address] [address]- 5393 Sep, [facility] [id number] [place] [address] 35929- 2764 Sep, [facility] [address] [address]- 0431 Sep, [facility] [address] [place] [address] 68911- 6635 Sep, [facility] [address] [address]- 1912 Aug, [facility] [address] [place] [address] [id number] Aug, Dental examination V72.2 [facility] [address] [address]- 0845 Aug, [facility] [id number] [place] [address] 00275- 7530 Aug, [facility] [address] [id number] [place] [address]- 3399 July, [facility] [place] [facility] [address] [id number] [place] [address]- 2668 July, [facility] [place] [facility] [address] [facility] [id number] [place] [address]- 2136 July, [facility] [place] [facility] [address] [id number] [place] [address]- 2037 July, [facility] [place] [facility] [address] [id number] [place] [address]- 0728 Jun, [facility] [place] [facility] [address] [id number] [place] [address]- 2539 Jun, [facility] [place] [facility] [address] [facility] [id number] [place] [address]- 8636 May, [facility] [place] [facility] [address] [id number] [place] [address]- 5053 May, [facility] [place] [facility] [address] [id number] [place] [address]- 7664 May, [facility] [place] [facility] [address] [facility] [id number] [place] [address]- 5054 May, [facility] [place] [facility] [address] [id number] [place] [address]- 4463 May, [facility] [place] [facility] [address] [id number] [address]- 1042 17 May, 2014 [facility] [place] [facility] [address] [id number] [place] [address]- 7347 16 May, 2014 [facility] [place] [facility] [address] [facility] [id number] [place] [address]- 5546 May, [facility] [place] [facility] [address] [facility] [id number] [place] [address]- 2843 Apr, [facility] [place] [facility] [address] [id number] [place] [address]- 1541 Apr, [facility] [place] [facility] [address] [id number] [place] [address]- 9976 Apr, [facility] [place] [facility] [address] [id number] [place] [address]- 6616 Apr, [facility] [place] [facility] [address] [id number] [place] [address]- 2391 Apr, [facility] [place] [facility] [address] [id number] [place] [address]- 7366 Apr, [facility] [place] [facility] [address] [id number] [place] [address]- 2699 Mar, [facility] [place] [facility] [address] [id number] [place] [address]- 5718 Mar, [facility] [place] [facility] [address] [id number] [place] [address]- 4132 Mar, [facility] [place] [facility] [address] [id number] [place] [address]- 1071 Mar, [facility] [place] [facility] [address] [id number] [place] [address]- 0427 Mar, [facility] [place] [facility] [address] [id number] [place] [address]- 8234 Mar, [facility] [place] [facility] [address] [id number] [place] [address]- 9912 Mar, [facility] [place] [facility] [address] [id number] [place] [address]- 3099 Mar, [facility] [place] [facility] [address] [id number] [place] [address]- 7323 Mar, [facility] [place] [facility] [address] [id number] [place] [address]- 3348 Mar, [facility] [place] [facility] [address] [id number] [place] [address]- 7361 Mar, [facility] [place] [facility] [address] [id number] [place] [address]- 3230 Mar, [facility] [place] [facility] [address] [id number] [place] 7876 Mar, [facility] [place] [facility] [address] [id number] [place] [address]- 9395 Mar, [facility] [place] [facility] [address] [id number] [place] [address]- 8353 Feb, [facility] [place] [facility] [address] [id number] [place] [address]- 7511 30 Feb, 2014 [facility] [place] [facility] [address] [id number] [place] [address]- 6788 Feb, [facility] [place] [facility] [address] [id number] [place] [address]- 5685 Feb, [facility] [place] [facility] [address] [id number] [place] [address]- 3081 Feb, [facility] [place] [facility] [address] [id number] [place] [address]- 9137 Feb, [facility] [place] [facility] [address] [id number] [place] [address]- 9755 16 Feb, 2014 [facility] [place] [facility] [address] [id number] [place] [address]- 4383 16 Feb, 2014 [facility] [place] [facility] [address] [id number] [place] [address]- 8799 16 Feb, 2014 [facility] [place] [facility] [address] [id number] [place] [address]- 6341 16 Feb, 2014 [facility] [place] [facility] [address] [id number] [place] [address]- 1654 10 Feb, 2014 [facility] [place] [facility] [address] [id number] [place] [address]- 3692 10 Feb, 2014 [facility] [place] [facility] [address] [id number] [place] [address]- 6291 Feb, [facility] [place] [facility] [address] [id number] [place] [address]- 3719 Feb, [facility] [place] [facility] [address] [id number] [place] [address]- 9121 Jan, [facility] [place] [facility] [address] [id number] [place] [address]- 7240 Jan, [facility] [place] [facility] [address] [id number] [place] [address]- 8508 Jan, [facility] [place] [facility] [address] [id number] [place] [address]- 6914 Jan, [facility] [place] [facility] [address] [id number] [place] 8999 Dec, [facility] [place] [facility] [address] [id number] [place] [address]- 9309 Dec, [facility] [place] [facility] [address] [id number] [place] 3486 Dec, [facility] [place] [facility] [address] [id number] [place] [address]- 7187 Dec, [facility] [place] [facility] [address] [facility] [id number] [place] [address]- 4594 Dec, [facility] [place] [facility] [address] [id number] [place] [address]- 3024 Dec, [facility] [place] [facility] [address] [id number] [place] [address]- 2619 Dec, [facility] [place] [facility] [address] [id number] [place] [address]- 7172 Dec, [facility] [place] [facility] [address] [id number] [place] [address]- 2546 30 Nov, 2013 [facility] [place] [facility] [address] [id number] [place] [address]- 2472 Nov, [facility] [place] [facility] [address] [id number] [place] [address]- 7413 Nov, [facility] [place] [facility] [address] [id number] [place] [address] Nov, [facility] [place] [facility] [address] [id number] [place] [address] Nov, [facility] [place] [facility] [address] [id number] [place] [address] Oct, [facility] [place] [facility] [address] [id number] [place] [address] Oct, [facility] [place] [facility] [address] [id number] [place] [address] Sep, [facility] [place] [facility] [address] [id number] [place] [address] Sep, [facility] [place] [facility] [address] [id number] [place] [address] Sep, [facility] [place] [facility] [address] [id number] [place] [address] Sep, [facility] [place] [facility] [address] [id number] [place] [address] Sep, [facility] [place] [facility] [address] [id number] [place] [address] Sep, [facility] [place] [facility] [address] [id number] [place] [address] Sep, [facility] [place] [facility] [address] [id number] [place] [address] Sep, [facility] [place] [facility] [address] [id number] [place] [address] Sep, [facility] [place] [facility] [address] [id number] [place] [address] Sep, [facility] [place] [facility] [address] [id number] [place] [address] Sep, [facility] [place] [facility] [address] [id number] [place] [address] Sep, [facility] [place] [facility] [address] [id number] [place] [address] Sep, [facility] [place] [facility] [address] [id number] [place] [address] Sep, [facility] [place] [facility] [address] [id number] [place] [address] July, [facility] [place] [facility] [address] [id number] [place] [address] July, [facility] [place] [facility] [address] [id number] [place] [address] July, [facility] [place] [facility] [address] [id number] [place] [address] July, [facility] [place] [facility] [address] [id number] [place] [address] July, [facility] [place] [facility] [address] [id number] [place] [address] July, [facility] [place] [facility] [address] [id number] [place] [address] July, [facility] [place] [facility] [address] [id number] [place] [address] July, [facility] [place] [facility] [address] [id number] [place] [address] Jun, [facility] [place] [facility] [address] [id number] [place] [address] Jun, [facility] [place] [facility] [address] [id number] [place] [address] Jun, [facility] [place] [facility] [address] [id number] [place] [address] Jun, [facility] [place] [facility] [address] [id number] [place] [address] 07 Jun, 2013 [facility] [place] [facility] [address] [id number] [place] [address] 07 Jun, 2013 [facility] [place] [facility] [address] [id number] [place] [address] Jun, [facility] [place] [facility] [address] [id number] [place] [address] Jun, [facility] [place] [facility] [address] [id number] [place] [address] 27 May, 2013 [facility] [place] [facility] [address] [id number] [place] [address] 27 May, 2013 [facility] [place] [facility] [address] [id number] [place] [address] 1126 May, [facility] [place] [facility] [address] [id number] [place] [address] May, [facility] [place] [facility] [address] [id number] [place] [address] 20 May, 2013 [facility] [place] [facility] [address] [id number] [place] [address] 20 May, 2013 [facility] [place] [facility] [address] [id number] [place] [address] 295[address] 19 May, 2013 [facility] [place] [facility] [address] [id number] [place] [address] 5645 19 May, 2013 [facility] [place] [facility] [address] [id number] [place] [address] 9[address] 17 May, 2013 [facility] [place] [facility] [address] [id number] [place] [address] 6[address] 17 May, 2013 [facility] [place] [facility] [address] [id number] [place] [address] 9980 17 May, 2013 [facility] [place] [facility] [address] [id number] [place] [address] 2897 May, [facility] [place] [facility] [address] [id number] [place] [address] 4096 May, [facility] [place] [facility] [address] [id number] [place] [address] 1399 May, [facility] [place] [facility] [address] [id number] [place] [address] 2634 May, [facility] [place] [facility] [address] [id number] [place] [address] 8530 May, [facility] [place] [facility] [address] [id number] [place] [address] 9754 Apr, [facility] [place] [facility] [address] [id number] [place] [address] 7046 Apr, [facility] [place] [facility] [address] [id number] [place] [address]- 9467 Mar, [facility] [place] [facility] [address] [id number] [place] [address] 8538 Mar, [facility] [place] [facility] [address] [id number] [place] [address] 459[address] Mar, [facility] [place] [facility] [address] [id number] [place] [address] 9435 Mar, [facility] [place] [facility] [address] [id number] [place] [address] 1018 Mar, [facility] [place] [facility] [address] [id number] [place] [address]- 2671 Mar, [facility] [place] [facility] [address] [id number] [place] [address] 9088 Feb, [facility] [place] [facility] [address] [id number] [place] [address] 2332 Feb, [facility] [place] [facility] [address] [id number] [place] [address] 3194 Feb, [facility] [place] [facility] [address] [id number] [place] [address] 5595 Feb, [facility] [address] [id number] [place] [address] 3268 Feb, [facility] [place] [facility] [address] [id number] [place] [address] 4019 Feb, [facility] [address] [id number] [place] [address] 4662 Jan, [facility] [place] [facility] [address] [id number] [place] [address]- 6953 Jan, [facility] [address] [id number] [place] [address]- 8959 Jan, [facility] [address] [id number] [place] [address] Jan, [facility] [place] [facility] [address] [id number] [place] [address] 3824 Jan, [facility] [address] [id number] [place] [address] 8193 Jan, [facility] [place] [facility] [address] [id number] [place] [address]- 4115 Jan, [facility] [address] [facility] [id number] [place] [address] Dec, [facility] [place] [facility] [address] [id number] [place] [address] 6904 Dec, [facility] [place] [facility] [address] [id number] [place] [address] 0196 Dec, [facility] [place] [facility] [address] [id number] [place] [address]- 8568 Nov, [facility] [place] [facility] [address] [id number] [place] [address] 2546 Oct, [facility] [place] [facility] [address] [id number] [place] [address] 7622 Sep, [facility] [address] [id number] [place] [address]- 8712 Sep, [facility] [place] [facility] [address] [id number] [place] [address]- 0174 Sep, [facility] [place] [facility] [address] [id number] [place] [address]- 9898 Sep, [facility] [place] [facility] [address] [id number] [place] [address]- 8846 Sep, [facility] [address] [id number] [place] [address] 0345 Sep, [facility] [place] [facility] [address] [id number] [place] [address]- 7004 Aug, [facility] [place] [facility] [address] [id number] [place] [address] 1757 Aug, [facility] [place] [facility] [address] [id number] [place] [address] 0489 July, [facility] [place] [facility] [address] [id number] [place] [address] 4304 July, [facility] [place] [facility] [address] [id number] [place] [address] 8627 July, [facility] [place] [facility] [address] [id number] [place] [address] 3380 July, [facility] [place] [facility] [address] [id number] [place] [address] 3816 Jun, [facility] [place] [facility] [address] [id number] [place] [address] 4113 May, [facility] [place] [facility] [address] [id number] [place] [address]- 5312 May, [facility] [place] [facility] [address] [id number] [place] [address] 3932 May, [facility] [place] [facility] [address] [id number] [place] [address]- 8823 Mar, [facility] [address] [id number] [place] [address]- 7728 Mar, [facility] [place] [facility] [address] [id number] [place] [address]- 1277 Mar, [facility] [address] [id number] [place] [address]- 0736 Feb, [facility] [place] [facility] [address] [id number] [place] [address]- 4318 Feb, [facility] [address] [id number] [place] [address]- 0319 Feb, [facility] [place] [facility] [address] [id number] [place] [address]- 8400 Feb, [facility] [address] [id number] [place] [address]- 3313 Feb, [facility] [place] [facility] [address] [id number] [place] [address]- 1560 Feb, [facility] [place] [facility] [address] [id number] [place] [address]- 6357 Feb, [facility] [place] [facility] [address] [id number] [place] [address]- 7809 Feb, [facility] [place] [facility] [address] [id number] [place] [address]- 1976 Feb, [facility] [place] [facility] [address] [id number] [place] [address]- 4822 Feb, [facility] [place] [facility] [address] [id number] [place] [address]- 0765 Jan, [facility] [place] [facility] [address] [id number] [place] [address]- 0709 Jan, [facility] [place] [facility] [address] [id number] [place] [address]- 9904 Jan, [facility] [place] [facility] [address] [id number] [place] [address]- 1917 Jan, [facility] [place] [facility] [address] [id number] [place] [address]- 4280 Jan, [facility] [place] [facility] [address] [id number] [place] [address]- 5970 Jan, [facility] [place] [facility] [address] [id number] [place] [address]- 3811 Jan, [facility] [place] [facility] [address] [id number] [place] [address]- 7990 Jan, [facility] [place] [facility] [address] [id number] [place] [address]- 1423 Jan, [facility] [place] [facility] [address] [id number] [place] [address]- 3612 Jan, [facility] [place] [facility] [address] [id number] [place] [address]- 5342 Dec, [facility] [place] [facility] [address] [id number] [place] [address]- 6326 Dec, [facility] [place] [facility] [address] [id number] [place] [address]- 5997 Nov, [facility] [place] [facility] [address] [id number] [place] [address]- 0062 24 Nov, 2011 [facility] [place] [facility] [address] [id number] [place] [address]- 7386 05 Nov, 2011 [facility] [place] [facility] [address] [id number] [place] [address]- 5366 Oct, [facility] [place] [facility] [address] [id number] [place] [address]- 0420 Oct, [facility] [place] [facility] [address] [id number] [place] [address] Oct, [facility] [place] [facility] [address] [id number] [place] [address]- 2159 Oct, [facility] [place] [facility] [address] [id number] [place] [address]- 3155 18 Aug, 2011 [facility] [place] [facility] [address] [id number] [place] [address]- 1995 15 Aug, 2011 [facility] [place] [facility] [address] [id number] [place] [address]- 8934 14 Aug, 2011 [facility] [place] [facility] [address] [id number] [place] [address]- 7283 07 Aug, 2011 [facility] [place] [facility] [address] [id number] [place] [address]- 1031 08 Jun, 2011 [facility] [place] [facility] [address] [id number] [place] [address]- 0926 May, [facility] [place] [facility] [address] [id number] [place] [address]- 2846 May, [facility] [place] [facility] [address] [id number] [place] [address]- 4648 20 Apr, 2011 [facility] [place] [facility] [address] [id number] [place] [address]- 8419 Apr, [facility] [place] [facility] [address] [id number] [place] [address]- 2154 15 Apr, 2011 [facility] [place] [facility] [address] [id number] [place] [address]- 0698 14 Apr, 2011 [facility] [place] [facility] [address] [id number] [place] [address]- 2261 Mar, [facility] [place] [facility] [address] [id number] [place] [address]- 4846 Mar, [facility] [place] [facility] [address] [id number] [place] [address]- 7420 Mar, [facility] [place] [facility] [address] [id number] [place] [address]- 9756 Mar, [facility] [place] [facility] [address] [id number] [place] [address]- 3589 13 Mar, 2011 [facility] [address] [id number] [place] [address]- 7379 13 Mar, 2011 [facility] [address] [id number] [place] [address]- 8116 27 Feb, 2011 [facility] [address] [id number] [place] [address]- 2061 Jan, [facility] [address] [id number] [place] [address]- 3576 15 Jan, 2011 [facility] [address] [id number] [place] [address]- 9586 Jan, [facility] [address] [id number] [place] [address]- 9774 Jan, [facility] [address] [id number] [place] [address]- 4337 Jan, [facility] [address] [id number] [place] [address]- 9227 Dec, [facility] [address] [id number] [place] [address]- 4357 May, [facility] [address] [id number] [place] [address]- 1318 14 Apr, 2010 [facility] [address] [id number] [place] [address]- 0129 Mar, [facility] [address] [id number] [place] [address]- 5335 Feb, [facility] [place] [facility] [address] [id number] [place] [address]- 8539 Feb, [facility] [place] [facility] [address] [id number] [place] [address]- 1804 14 Feb, 2010 [facility] [place] [facility] [address] [id number] [place] [address]- 0841 Feb, [facility] [address] [facility] [id number] [place] [address]- 83[address] Dec, [facility] [address] [facility] [id number] [place] [address] Dec, IMMUNIZATIONS No Known Immunizations SOCIAL HISTORY Never Assessed REASON FOR VISIT referral PLAN OF CARE VITAL SIGNS MEDICATIONS Unknown [...]
--- OUTSIDE RECORDS SUMMARY | 2017-12-04 09:50 | XMS REPORT ---
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 Name Role Phone JYOTSNA EMERY Unavailable PROBLEMS Type Condition ICD9-CM Code XXM96-PM Code Onset Dates Condition Status SNOMED Code Problem Diabetes E11.9 Active 448190139 Problem Type 2 diabetes mellitus with hyperglycemia E11.65 Active 94503524 Problem Essential hypertension I10 Active 49196490 Problem Diabetic polyneuropathy associated with diabetes mellitus due to underlying condition E08.42 Active 41858410 Problem Rotator cuff syndrome of right shoulder M75.101 Active 088812033977794 Problem Slow transit constipation K59.01 Active 42799543 Problem FCI current use of insulin Z79.4 Active 690362915 Problem Constipation, unspecified constipation type K59.00 Active 40320799 Problem Irritable bowel syndrome, unspecified type K58.9 Active 59487217 Problem Barretts esophagus without dysplasia K22.70 Active 335989004 Problem 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 Nov, Active 2379353 Problem Herniation of intervertebral disc at C5-C6 level M50.222 Active 087887642 Problem Gastroparesis K31.84 Active 317984905 Problem Bipolar disorder, current episode depressed, moderate F31.32 Active 946522619 Problem Gastro-esophageal reflux disease without esophagitis K21.9 Active 713018557 Problem Panic disorder with agoraphobia F40.01 Active 31313206 Problem Type 2 diabetes mellitus with diabetic autonomic (poly)neuropathy E11.43 Active 070835728 Problem BRITTANI (generalized anxiety disorder) F41.1 Active 41370937 Problem Obstructive sleep apnea syndrome G47.33 Active 24494162 ALLERGIES No Information ENCOUNTERS Encounter Location Date Diagnosis [facility] [id number] [address] Oct, [facility] [address] [address]67- 8662 July, [place] [address] 70477- 0827 Jun, Type 2 diabetes mellitus with diabetic autonomic (poly) neuropathy E11.43 and Type 2 diabetes mellitus with hyperglycemia E11.65 [place] [address] 25697- 9291 May, [place] [address] 25483- 7676 May, Bipolar disorder, current episode depressed, moderate F31.32 [facility] [address] [address] -[address]31 May, [place] [address] 26021- 4769 May, Diabetic polyneuropathy associated with diabetes mellitus due to underlying condition E08.42 [place] [address] 34046- 9734 Apr, [place] [address] 48177- 5594 Feb, Ganglion cyst of dorsum of right wrist M67.431 [place] [address] 56482- 1165 Jan, Other cyst of bone, right forearm M85.631 [place] [address] 22311- 1274 Jan, [place] [address] 86407- 7578 Jan, Diabetes E11.9 and Right forearm pain M79.631 [place] [address] 59528- 9737 Dec, Encounter for immunization Z23 [place] [address] 85238- 3725 Nov, [facility] [address], [place] [address] Nov, Type 2 diabetes mellitus with hyperglycemia E11.65 [facility] [id number] [place] [address] 11472- 2232 Nov, Severe pain of right shoulder M25.511 [facility] [id number] [place] [address] 59685- 5627 Oct, Diabetes E11.9 [facility] [id number] [place] [address] 10687- 9202 Oct, Diabetes E11.9 [facility] [id number] [place] [address] 68997- 9087 Oct, [facility] [id number] [place] [address] 16771- 0568 Oct, [facility] [id number] [place] [address] 98484- 5395 Oct, Rotator cuff syndrome of right shoulder M75.101 [facility] [id number] [place] [address] 87998- 1283 Oct, Diabetes E11.9 [facility] [id number] [place] [address] 54119- 3396 Sep, Type 2 diabetes mellitus with hyperglycemia E11.65 ; Obstructive sleep apnea syndrome G47.33 and Constipation, unspecified constipation type K59.00 [facility] [address] [place] [address] 14497- 4019 Aug, [facility] [id number] [place] [address] 70444- 3264 Aug, [facility] [id number] [place] [address] 06702- 5760 Aug, Type 2 diabetes mellitus with diabetic autonomic (poly) neuropathy E11.43 [facility] [id number] [place] [address] 25078- 7756 July, Type 2 diabetes mellitus with hyperglycemia E11.65 [place] [id number] [place] [address] 98690- 2882 Jun, Slow transit constipation K59.01 [place] [id number] [place] [address] 00454- 0135 May, [place] [address] 94657- 6801 May, Diabetes E11.9 [place] [address] 36437- 7270 May, [facility] [place] [address] 64776 -0584 Apr, [place] [address] 85926- 5870 Apr, Gastroenteritis K52.9 [facility] [place] [address] 38768 -4787 Apr, Abdominal pain, unspecified location R10.9 ; Gastroenteritis K52.9 ; Type 2 diabetes mellitus with hyperglycemia E11.65 and FCI current use of insulin Z79.4 [place] [id number] [place] [address] 99680- 5449 Apr, [place] [id number] [place] [address] 13202- 0147 Apr, [place] [id number] [place] [address] 03904- 9495 Apr, Diabetes E11.9 ; Gastroparesis K31.84 ; Generalized abdominal pain R10.84 ; Essential hypertension I10 ; Bronchitis J40 and Other fatigue R53.83 [facility] [place] [place] [id number] [place] [address] 22625 -2793 Mar, [facility] [place] [id number] [place] [address] 45091 -8132 Mar, [facility] [address], [place] [address] 11 Mar, 2016 Laceration of scalp without foreign body, initial encounter S01.01XA ; Laceration of face, initial encounter S01.81XA and Encounter for immunization Z23 [facility] [address] [place] [address] 44804- 8528 09 Mar, 2016 Type 2 diabetes mellitus with diabetic autonomic (poly) neuropathy E11.43 [place] [id number] [place] [address] 19212- 8854 Feb, [facility] [address] [place] [address] 30158- 9847 Feb, Internal hemorrhoids K64.8 and Obstructive sleep apnea syndrome G47.33 [place] [address] [place] [address] 59234- 0131 Feb, SI (sacroiliac) joint dysfunction M53.3 [place] [address] 18455- 4570 Jan, [facility] [id number] [place] [address] 87160- 6861 Dec, Gastroparesis K31.84 [facility] [address] [place] [address] 99055- 1700 Dec, [place] [address] [place] [address] 26810- 7202 Dec, Right hip pain M25.551 ; Nose congested R09.81 and Encounter for immunization Z23 [facility] [id number] [place] [address] 99839- 4537 Nov, Diabetes E11.9 ; Gastroparesis K31.84 ; Type 2 diabetes mellitus with diabetic autonomic (poly)neuropathy E11.43 and Obstructive sleep apnea syndrome G47.33 [facility] [id number] [place] [address] 82576- 6254 Oct, [place] [address] [place] [address] 14128- 6534 Aug, [facility] [id number] [place] [address] 03196- 8146 July, Gastro-esophageal reflux disease without esophagitis K21.9 [facility] [address] [place] [address] 41494- 5297 July, [facility] [address] 85356- 5201 July, Diabetes E11.9 [facility] [address] 15966- 8776 July, Diabetes E11.9 ; Obstructive sleep apnea syndrome G47.33 and Neuropathy G62.9 [facility] [id number] [place] [address] 22248- 7064 July, Bipolar disorder, current episode depressed, moderate F31.32 ; BRITTANI (generalized anxiety disorder) F41.1 and Panic disorder with agoraphobia F40.01 [facility] [id number] [place] [address] 47792- 6814 Jun, [facility] [id number] [place] [address] 44830- 3195 Jun, [facility] [address] [place] [address] 47695- 5936 Jun, [facility] [address] [place] [address] 29087- 5953 Jun, [facility] [id number] [place] [address] [id number] May, Encounter for dental examination and cleaning without abnormal findings Z01.20 [facility] [address] [place] [address] 77831- 2531 Apr, [facility] [id number] [place] [address] 76193- 2746 Apr, [facility] [id number] [place] [address]- 1848 04 Apr, 2015 Bipolar disorder, current episode depressed, moderate F31.32 ; BRITTANI (generalized anxiety disorder) F41.1 and Panic disorder with agoraphobia F40.01 [place] [id number] [place] [address] 03097- 7893 04 Apr, 2015 Hyperlipidemia, unspecified E78.5 [facility] [address] [id number] Apr, Dental caries K02.9 [facility] [address] [id number] Feb, Dental caries K02.9 and Encounter for dental examination Z01.[address] 85383- 0582 Feb, [address] 79025- 2564 Feb, Diabetes E11.9 ; Insulin long-term use Z79.4 ; Diabetic polyneuropathy associated with diabetes mellitus due to underlying condition E08.42 and Barretts esophagus with high grade dysplasia K22.[address] 59053- 2537 14 Feb, [address] 10783- 3611 17 Jan, 2015 Pain in right hip M25.551 and Other chronic pain G89.29 [place] [id number] [place] [address] 73272- 3090 05 Jan, 2015 Impingement syndrome, shoulder, left M75.[address] 98955- 1288 05 Jan, 2015 Bipolar disorder, current episode depressed, moderate F31.32 ; Generalized anxiety disorder F41.1 and Agoraphobia with panic disorder F40.[address] 31389- 5160 Jan, [facility] [address] [place] [address] 25546- 0537 Dec, [facility] [id number] [place] [address] 039701- 2713 Dec, [facility] [address] [place] [address] 059926- 9107 Dec, Right hip pain M25.551 and Left shoulder pain M25.512 [facility] [id number] [place] [address] 776657- 1025 Dec, Bipolar 1 disorder, depressed, moderate F31.32 ; BRITTANI ( generalized anxiety disorder) F41.1 and Panic disorder with agoraphobia F40.01 [facility] [address] [place] [address] 30492- 5308 Dec, [facility] [id number] [place] [address] 56927- 0169 Dec, [facility] [id number] [place] [address] 49766- 9023 28 Nov, 2014 [facility] [id number] [place] [address] 22358- 8545 18 Nov, 2014 [facility] [address] [place] [address] 67309- 1105 14 Nov, 2014 [facility] [id number] [place] [address] 84731- 7609 14 Nov, 2014 Diabetes 250.00 [facility] [address] [place] [address] 72933- 4261 Oct, [facility] [id number] [place] [address] 39470901- 0293 Oct, [facility] [id number] [place] [address] 777400- 1748 Oct, [facility] [address] [place] [address] 53010- 4297 Oct, [facility] [address], [place] [address]- 2225 Oct, [facility] [id number] [place] [address] 29153- 7810 Oct, [facility] [address] [address]- 7849 Oct, Diabetes 250.00 ; Insomnia 780.52 and Forgetfulness 780.99 [facility] [address] [address]- 2124 Oct, Depressive disorder, not elsewhere classified 311 [facility] [address] [place] [address] 04491- 6179 Sep, [facility] [address] [place] [address] 11602- 4161 Sep, [facility] [address] [place] [address] 16699- 5574 Sep, [facility] [address], [place] [address]- 9190 Sep, [facility] [id number] [place] [address] 14176- 7817 Sep, [facility] [address], [place] [address]- 7517 Sep, [facility] [address] [place] [address] 98182- 5869 Sep, [facility] [address], [place] [address]- 9409 Aug, [facility] [address] [place] [address] [id number] Aug, Dental examination V72.2 [facility] [address], [place] [address]- 0317 Aug, [facility] [id number] [place] [address] 14890- 2054 Aug, [facility] [address] [id number] [place] [address]- 8510 July, [facility] [place] [facility] [address] [id number] [place] [address]- 9879 July, [facility] [place] [facility] [address] [facility] [id number] [place] [address]- 4936 July, [facility] [place] [facility] [address] [id number] [place] [address]- 5192 July, [facility] [place] [facility] [address] [id number] [place] [address]- 7301 Jun, [facility] [place] [facility] [address] [id number] [place] [address]- 3277 Jun, [facility] [place] [facility] [address] [facility] [id number] [place] [address]- 9097 May, [facility] [place] [facility] [address] [id number] [place] [address]- 2416 May, [facility] [place] [facility] [address] [id number] [place] [address]- 0627 May, [facility] [place] [facility] [address] [facility] [id number] [place] [address]- 3391 May, [facility] [place] [facility] [address] [id number] [place] [address]- 3470 May, [facility] [place] [facility] [address] [id number] [address]- 7659 17 May, 2014 [facility] [place] [facility] [address] [id number] [place] [address]- 6798 16 May, 2014 [facility] [place] [facility] [address] [facility] [id number] [place] [address]- 9786 May, [facility] [place] [facility] [address] [facility] [id number] [place] [address]- 9750 Apr, [facility] [place] [facility] [address] [id number] [place] [address]- 0105 Apr, [facility] [place] [facility] [address] [id number] [place] [address]- 6236 Apr, [facility] [place] [facility] [address] [id number] [place] [address]- 1256 Apr, [facility] [place] [facility] [address] [id number] [place] [address]- 9147 Apr, [facility] [place] [facility] [address] [id number] [place] [address]- 8549 Apr, [facility] [place] [facility] [address] [id number] [place] [address]- 2005 Mar, [facility] [place] [facility] [address] [id number] [place] [address]- 7334 Mar, [facility] [place] [facility] [address] [id number] [place] [address]- 9402 Mar, [facility] [place] [facility] [address] [id number] [place] [address]- 0094 Mar, [facility] [place] [facility] [address] [id number] [place] [address]- 2104 Mar, [facility] [place] [facility] [address] [id number] [place] [address]- 9045 Mar, [facility] [place] [facility] [address] [id number] [place] [address]- 5442 Mar, [facility] [place] [facility] [address] [id number] [place] [address]- 7724 Mar, [facility] [place] [facility] [address] [id number] [place] [address]- 2963 Mar, [facility] [place] [facility] [address] [id number] [place] [address]- 0400 Mar, [facility] [place] [facility] [address] [id number] [place] [address]- 5993 Mar, [facility] [place] [facility] [address] [id number] [place] [address]- 5975 Mar, [facility] [place] [facility] [address] [id number] [place] 0239 Mar, [facility] [place] [facility] [address] [id number] [place] [address]- 6071 Mar, [facility] [place] [facility] [address] [id number] [place] [address]- 9921 Feb, [facility] [place] [facility] [address] [id number] [place] [address]- 5048 30 Feb, 2014 [facility] [place] [facility] [address] [id number] [place] [address]- 2590 Feb, [facility] [place] [facility] [address] [id number] [place] [address]- 0877 Feb, [facility] [place] [facility] [address] [id number] [place] [address]- 8553 Feb, [facility] [place] [facility] [address] [id number] [place] [address]- 3069 Feb, [facility] [place] [facility] [address] [id number] [place] [address]- 2546 16 Feb, 2014 [facility] [place] [facility] [address] [id number] [place] [address]- 8195 16 Feb, 2014 [facility] [place] [facility] [address] [id number] [place] [address]- 6068 16 Feb, 2014 [facility] [place] [facility] [address] [id number] [place] [address]- 2209 16 Feb, 2014 [facility] [place] [facility] [address] [id number] [place] [address]- 4880 10 Feb, 2014 [facility] [place] [facility] [address] [id number] [place] [address]- 1223 10 Feb, 2014 [facility] [place] [facility] [address] [id number] [place] [address]- 5397 Feb, [facility] [place] [facility] [address] [id number] [place] [address]- 8652 Feb, [facility] [place] [facility] [address] [id number] [place] [address]- 4893 Jan, [facility] [place] [facility] [address] [id number] [place] [address]- 9986 Jan, [facility] [place] [facility] [address] [id number] [place] [address]- 3646 Jan, [facility] [place] [facility] [address] [id number] [place] [address]- 3156 Jan, [facility] [place] [facility] [address] [id number] [place] 3479 Dec, [facility] [place] [facility] [address] [id number] [place] [address]- 9712 Dec, [facility] [place] [facility] [address] [id number] [place] 8306 Dec, [facility] [place] [facility] [address] [id number] [place] [address]- 7696 Dec, [facility] [place] [facility] [address] [facility] [id number] [place] [address]- 4397 Dec, [facility] [place] [facility] [address] [id number] [place] [address]- 5945 Dec, [facility] [place] [facility] [address] [id number] [place] [address]- 9992 Dec, [facility] [place] [facility] [address] [id number] [place] [address]- 0255 Dec, [facility] [place] [facility] [address] [id number] [place] [address]- 2546 30 Nov, 2013 [facility] [place] [facility] [address] [id number] [place] [address]- 9347 Nov, [facility] [place] [facility] [address] [id number] [place] [address]- 8079 Nov, [facility] [place] [facility] [address] [id number] [place] [address]- 8880 Nov, [facility] [place] [facility] [address] [id number] [place] [address]- 2874 Nov, [facility] [place] [facility] [address] [id number] [place] [address]- 1620 Oct, [facility] [place] [facility] [address] [id number] [place] [address]- 3589 Oct, [facility] [place] [facility] [address] [id number] [place] [address]- 1381 Sep, [facility] [place] [facility] [address] [id number] [place] [address]- 1280 Sep, [facility] [place] [facility] [address] [id number] [place] [address]- 2725 Sep, [facility] [place] [facility] [address] [id number] [place] [address]- 5141 Sep, [facility] [place] [facility] [address] [id number] [place] [address]- 1984 Sep, [facility] [place] [facility] [address] [id number] [place] [address]- 9392 Sep, [facility] [place] [facility] [address] [id number] [place] [address]- 0545 Sep, [facility] [place] [facility] [address] [id number] [place] [address]- 2783 Sep, [facility] [place] [facility] [address] [id number] [place] [address] Sep, [facility] [place] [facility] [address] [id number] [place] [address] Sep, [facility] [place] [facility] [address] [id number] [place] [address] Sep, [facility] [place] [facility] [address] [id number] [place] [address] Sep, [facility] [place] [facility] [address] [id number] [place] [address] Sep, [facility] [place] [facility] [address] [id number] [place] [address] Sep, [facility] [place] [facility] [address] [id number] [place] [address] July, [facility] [place] [facility] [address] [id number] [place] [address] July, [facility] [place] [facility] [address] [id number] [place] [address] July, [facility] [place] [facility] [address] [id number] [place] [address] July, [facility] [place] [facility] [address] [id number] [place] [address] July, [facility] [place] [facility] [address] [id number] [place] [address] July, [facility] [place] [facility] [address] [id number] [place] [address] July, [facility] [place] [facility] [address] [id number] [place] [address] July, [facility] [place] [facility] [address] [id number] [place] [address] Jun, [facility] [place] [facility] [address] [id number] [place] [address] Jun, [facility] [place] [facility] [address] [id number] [place] [address]- [address] Jun, [facility] [place] [facility] [address] [id number] [place] [address]- [address] Jun, [facility] [place] [facility] [address] [id number] [place] [address] 07 Jun, 2013 [facility] [place] [facility] [address] [id number] [place] [address] 07 Jun, 2013 [facility] [place] [facility] [address] [id number] [place] [address] Jun, [facility] [place] [facility] [address] [id number] [place] [address] Jun, [facility] [place] [facility] [address] [id number] [place] [address] 27 May, 2013 [facility] [place] [facility] [address] [id number] [place] [address] 27 May, 2013 [facility] [place] [facility] [address] [id number] [place] [address] May, [facility] [place] [facility] [address] [id number] [place] [address] May, [facility] [place] [facility] [address] [id number] [place] [address] 20 May, 2013 [facility] [place] [facility] [address] [id number] [place] [address] 20 May, 2013 [facility] [place] [facility] [address] [id number] [place] [address] 19 May, 2013 [facility] [place] [facility] [address] [id number] [place] [address] 19 May, 2013 [facility] [place] [facility] [address] [id number] [place] [address] 17 May, 2013 [facility] [place] [facility] [address] [id number] [place] [address] 17 May, 2013 [facility] [place] [facility] [address] [address] [id number] [place] [address] 17 May, 2013 [facility] [place] [facility] [address] [id number] [place] [address] May, [facility] [place] [facility] [address] [id number] [place] [address] May, [facility] [place] [facility] [address] [id number] [place] [address] May, [facility] [place] [facility] [address] [id number] [place] [address] 1145 May, [facility] [place] [facility] [address] [id number] [place] [address] 164[address] May, [facility] [place] [facility] [address] [id number] [place] [address] Apr, [facility] [place] [facility] [address] [id number] [place] [address] 56[address] Apr, [facility] [place] [facility] [address] [id number] [place] [address] 288[address] Mar, [facility] [place] [facility] [address] [id number] [place] [address] 28[address] Mar, [facility] [place] [facility] [address] [id number] [place] [address] 69[address] Mar, [facility] [place] [facility] [address] [id number] [place] [address] Mar, [facility] [place] [facility] [address] [id number] [place] [address] 87[address] Mar, [facility] [place] [facility] [address] [id number] [place] [address] 5268 Mar, [facility] [place] [facility] [address] [id number] [place] [address] 77[address] Feb, [facility] [place] [facility] [address] [id number] [place] [address] 9[address] Feb, [facility] [place] [facility] [address] [id number] [place] [address] Feb, [facility] [place] [facility] [address] [id number] [place] [address] 3[address] Feb, [facility] [address] [id number] [place] [address]- 6768 Feb, [facility] [place] [facility] [address] [id number] [place] [address] 44[address] Feb, [facility] [address] [id number] [place] [address] 0379 Jan, [facility] [place] [facility] [address] [id number] [place] [address]- 7611 Jan, [facility] [address] [id number] [place] [address] 8520 Jan, [facility] [address] [id number] [place] [address] Jan, [facility] [place] [facility] [address] [id number] [place] [address] 9794 Jan, [facility] [address] [id number] [place] [address] 3401 Jan, [facility] [place] [facility] [address] [id number] [place] [address] 4[address] Jan, [facility] [address] [facility] [id number] [place] [address] Dec, [facility] [place] [facility] [address] [id number] [place] [address] Dec, [facility] [place] [facility] [address] [id number] [place] [address] Dec, [facility] [place] [facility] [address] [id number] [place] [address] 0[address] Nov, [facility] [place] [facility] [address] [id number] [place] [address] 2546 Oct, [facility] [place] [facility] [address] [id number] [place] [address] 1006 Sep, [facility] [address] [id number] [place] [address] 5861 Sep, [facility] [place] [facility] [address] [id number] [place] [address] 3771 Sep, [facility] [place] [facility] [address] [id number] [place] [address]- 8791 Sep, [facility] [place] [facility] [address] [id number] [place] [address] 2778 Sep, [facility] [address] [id number] [place] [address] 8908 Sep, [facility] [place] [facility] [address] [id number] [place] [address] 1544 Aug, [facility] [place] [facility] [address] [id number] [place] [address]- 7668 Aug, [facility] [place] [facility] [address] [id number] [place] [address] 5082 July, [facility] [place] [facility] [address] [id number] [place] [address] 8687 July, [facility] [place] [facility] [address] [id number] [place] [address] 6146 July, [facility] [place] [facility] [address] [id number] [place] [address] 3138 July, [facility] [place] [facility] [address] [id number] [place] [address]- 9478 Jun, [facility] [place] [facility] [address] [id number] [place] [address]- 2294 May, [facility] [place] [facility] [address] [id number] [place] [address]- 1326 May, [facility] [place] [facility] [address] [id number] [place] [address]- 1031 May, [facility] [place] [facility] [address] [id number] [place] [address]239 Mar, [facility] [address] [id number] [place] [address] 1839 Mar, [facility] [place] [facility] [address] [id number] [place] [address]- 5142 Mar, [facility] [address] [id number] [place] [address]- 5966 Feb, [facility] [place] [facility] [address] [id number] [place] [address]- 3673 Feb, [facility] [address] [id number] [place] [address] 9740 Feb, [facility] [place] [facility] [address] [id number] [place] [address]- 2895 Feb, [facility] [address] [id number] [place] [address]- 8538 Feb, [facility] [place] [facility] [address] [id number] [place] [address]- 2402 Feb, [facility] [place] [facility] [address] [id number] [place] [address]- 6469 Feb, [facility] [place] [facility] [address] [id number] [place] [address]- 8358 Feb, [facility] [place] [facility] [address] [id number] [place] [address]- 8123 Feb, [facility] [place] [facility] [address] [id number] [place] [address]- 1581 Feb, [facility] [place] [facility] [address] [id number] [place] [address]- 4901 Jan, [facility] [place] [facility] [address] [id number] [place] [address]- 1387 Jan, [facility] [place] [facility] [address] [id number] [place] [address] 1978 Jan, [facility] [place] [facility] [address] [id number] [place] [address]- 3598 Jan, [facility] [place] [facility] [address] [id number] [place] [address]- 8689 Jan, [facility] [place] [facility] [address] [id number] [place] [address]- 7693 Jan, [facility] [place] [facility] [address] [id number] [place] [address]- 7690 Jan, [facility] [place] [facility] [address] [id number] [place] [address]- 7763 Jan, [facility] [place] [facility] [address] [id number] [place] [address]- 4588 Jan, [facility] [place] [facility] [address] [id number] [place] [address]- 0690 Jan, [facility] [place] [facility] [address] [id number] [place] [address]- 3764 Dec, [facility] [place] [facility] [address] [id number] [place] [address]- 9961 Dec, [facility] [place] [facility] [address] [id number] [place] [address]- 8753 Nov, [facility] [place] [facility] [address] [id number] [place] [address]- 3600 24 Nov, 2011 [facility] [place] [facility] [address] [id number] [place] [address]- 6301 05 Nov, 2011 [facility] [place] [facility] [address] [id number] [place] [address]- 3549 Oct, [facility] [place] [facility] [address] [id number] [place] [address]- 2261 Oct, [facility] [place] [facility] [address] [id number] [place] [address] Oct, [facility] [place] [facility] [address] [id number] [place] [address]- 2034 Oct, [facility] [place] [facility] [address] [id number] [place] [address]- 6181 18 Aug, 2011 [facility] [place] [facility] [address] [id number] [place] [address]- 7425 15 Aug, 2011 [facility] [place] [facility] [address] [id number] [place] [address]- 1258 14 Aug, 2011 [facility] [place] [facility] [address] [id number] [place] [address]- 4974 07 Aug, 2011 [facility] [place] [facility] [address] [id number] [place] [address]- 9141 08 Jun, 2011 [facility] [place] [facility] [address] [id number] [place] [address]- 4176 May, [facility] [place] [facility] [address] [id number] [place] [address]- 7616 May, [facility] [place] [facility] [address] [id number] [place] [address]- 9610 20 Apr, 2011 [facility] [place] [facility] [address] [id number] [place] [address]- 3226 Apr, [facility] [place] [facility] [address] [id number] [place] [address]- 9253 15 Apr, 2011 [facility] [place] [facility] [address] [id number] [place] [address]- 8147 14 Apr, 2011 [facility] [place] [facility] [address] [id number] [place] [address]- 5339 Mar, [facility] [place] [facility] [address] [id number] [place] [address]- 5286 Mar, [facility] [place] [facility] [address] [id number] [place] [address]- 5765 Mar, [facility] [place] [facility] [address] [id number] [place] [address]- 6296 Mar, [facility] [place] [facility] [address] [id number] [place] [address]- 2077 13 Mar, 2011 [facility] [address] [id number] [place] [address]- 0905 13 Mar, 2011 [facility] [address] [id number] [place] [address]- 8953 27 Feb, 2011 [facility] [address] [id number] [place] [address]- 3597 Jan, [facility] [address] [id number] [place] [address]- 8011 15 Jan, 2011 [facility] [address] [id number] [place] [address]- 6256 Jan, [facility] [address] [id number] [place] [address]- 5177 Jan, [facility] [address] [id number] [place] [address]- 5083 Jan, [facility] [address] [id number] [place] [address]- 7970 Dec, [facility] [address] [id number] [place] [address]- 9365 May, [facility] [address] [id number] [place] [address]- 3891 14 Apr, 2010 [facility] [address] [id number] [place] [address]- 6490 Mar, [facility] [address] [id number] [place] [address]- 5953 Feb, [facility] [place] [facility] [address] [id number] [place] [address]- 8537 Feb, [facility] [place] [facility] [address] [id number] [place] [address]- 6340 14 Feb, 2010 [facility] [place] [facility] [address] [id number] [place] [address]- 9006 Feb, [facility] [address] [facility] [id number] [place] [address]- 1833 Dec, [facility] [address] [facility] [id number] [place] [address]- 1758 Dec, IMMUNIZATIONS No Known Immunizations SOCIAL HISTORY Never Assessed REASON FOR VISIT Medication question PLAN OF CARE VITAL SIGNS MEDICATIONS Medication Instructions Dosage Frequency Start Date End Date Duration Status Prozac 20 MG Orally Once a day 1 capsule in the morning 24h May, 30 days Active RESULTS No Results PROCEDURES [...]
--- OUTSIDE RECORDS SUMMARY | 2017-12-04 09:51 | XMS REPORT ---
Author Author JYOTSNA EMERY [facility] Address [address] [place] [address] Care Team Providers Care Medical Doctor Nuclear Medicine Name Role Phone JYOTSNA EMERY Unavailable PROBLEMS Type Condition ICD9-CM Code WGR10-IH Code Onset Dates Condition Status SNOMED Code Problem Diabetes E11.9 Active 493162657 Problem Type 2 diabetes mellitus with hyperglycemia E11.65 Active 88677865 Problem Essential hypertension I10 Active 68669987 Problem Diabetic polyneuropathy associated with diabetes mellitus due to underlying condition E08.42 Active 77291593 Problem Rotator cuff syndrome of right shoulder M75.101 Active [id number] Problem Slow transit constipation K59.01 Active 48749708 Problem nursing home current use of insulin Z79.4 Active 091649099 Problem Constipation, unspecified constipation type K59.00 Active 46090347 Problem Irritable bowel syndrome, unspecified type K58.9 Active 86912655 Problem Barretts esophagus without dysplasia K22.70 Active 734383522 Problem 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 Nov, Active 2578968 Problem Herniation of intervertebral disc at C5-C6 level M50.222 Active 382623395 Problem Gastroparesis K31.84 Active 785591034 Problem Bipolar disorder, current episode depressed, moderate F31.32 Active 388061620 Problem Gastro-esophageal reflux disease without esophagitis K21.9 Active 456381527 Problem Panic disorder with agoraphobia F40.01 Active 85282914 Problem Type 2 diabetes mellitus with diabetic autonomic (poly)neuropathy E11.43 Active 336523304 Problem BRITTANI (generalized anxiety disorder) F41.1 Active 82600266 Problem Obstructive sleep apnea syndrome G47.33 Active 91549873 ALLERGIES No Information ENCOUNTERS Encounter Location Date Diagnosis [facility] [id number] [address] Oct, [facility] [address] [address]- [address] July, [place] [address] 67271- 2541 Jun, Type 2 diabetes mellitus with diabetic autonomic (poly) neuropathy E11.43 and Type 2 diabetes mellitus with hyperglycemia E11.65 [place] [address] [address]74- 4822 May, [place] [address] 38807- 2708 May, Bipolar disorder, current episode depressed, moderate F31.32 [facility] [address] [address] May, [place] [address] 28660- 5131 May, Diabetic polyneuropathy associated with diabetes mellitus due to underlying condition E08.42 [place] [address] 96233- 0290 Apr, [place] [address] 62609- 6879 Feb, Ganglion cyst of dorsum of right wrist M67.431 [place] [address] 57907- 8730 Jan, Other cyst of bone, right forearm M85.631 [place] [address] 22232- 3089 Jan, [place] [address] 90454- 8827 Jan, Diabetes E11.9 and Right forearm pain M79.631 [place] [address] 81042- 4857 Dec, Encounter for immunization Z23 [place] [address] 03634- 4360 Nov, [facility] [address], [place] [address] Nov, Type 2 diabetes mellitus with hyperglycemia E11.65 [facility] [id number] [place] [address] 72700- 1358 Nov, Severe pain of right shoulder M25.511 [facility] [id number] [place] [address] 93908- 4893 Oct, Diabetes E11.9 [facility] [id number] [place] [address] 88968- 8462 Oct, Diabetes E11.9 [facility] [id number] [place] [address] 72084- 2957 Oct, [facility] [id number] [place] [address] 45304- 8517 Oct, [facility] [id number] [place] [address] 80847- 3353 Oct, Rotator cuff syndrome of right shoulder M75.101 [facility] [id number] [place] [address] 46527- 9671 Oct, Diabetes E11.9 [facility] [id number] [place] [address] 14660- 3068 Sep, Type 2 diabetes mellitus with hyperglycemia E11.65 ; Obstructive sleep apnea syndrome G47.33 and Constipation, unspecified constipation type K59.00 [facility] [address] [place] [address] 98974- 2208 Aug, [facility] [id number] [place] [address] 37854- 0238 Aug, [facility] [id number] [place] [address] 10796- 7003 Aug, Type 2 diabetes mellitus with diabetic autonomic (poly) neuropathy E11.43 [facility] [id number] [place] [address] 84476- 6615 July, Type 2 diabetes mellitus with hyperglycemia E11.65 [place] [id number] [place] [address] 45710- 0005 Jun, Slow transit constipation K59.01 [place] [id number] [place] [address] 30111- 8784 May, [place] [address] 30021- 4146 May, Diabetes E11.9 [place] [address] 81216- 9313 May, [facility] [place] [address] 21487 -8564 Apr, [place] [address] 99534- 8960 Apr, Gastroenteritis K52.9 [facility] [place] [address] 52352 -0536 Apr, Abdominal pain, unspecified location R10.9 ; Gastroenteritis K52.9 ; Type 2 diabetes mellitus with hyperglycemia E11.65 and nursing home current use of insulin Z79.4 [place] [id number] [place] [address] 00698- 4609 Apr, [place] [id number] [place] [address] 89760- 4207 Apr, [place] [id number] [place] [address] 76924- 4089 Apr, Diabetes E11.9 ; Gastroparesis K31.84 ; Generalized abdominal pain R10.84 ; Essential hypertension I10 ; Bronchitis J40 and Other fatigue R53.83 [facility] [id number] [place] [address] 11172 -0131 Mar, [facility] [place] [id number] [place] [address] 92190 -0427 Mar, [facility] [address], [place] [address] 11 Mar, 2016 Laceration of scalp without foreign body, initial encounter S01.01XA ; Laceration of face, initial encounter S01.81XA and Encounter for immunization Z23 [facility] [id number] [place] [address] 13249- 2143 09 Mar, 2016 Type 2 diabetes mellitus with diabetic autonomic (poly) neuropathy E11.43 [place] [id number] [place] [address] 08908- 0289 Feb, [facility] [id number] [place] [address] 01988- 6124 Feb, Internal hemorrhoids K64.8 and Obstructive sleep apnea syndrome G47.33 [place] [id number] [place] [address] 90383- 4712 Feb, SI (sacroiliac) joint dysfunction M53.3 [place] [address] 66589- 0484 Jan, [facility] [id number] [place] [address] 73872- 5954 Dec, Gastroparesis K31.84 [facility] [id number] [place] [address] 86328- 1187 Dec, [place] [id number] [place] [address] 83983- 4070 Dec, Right hip pain M25.551 ; Nose congested R09.81 and Encounter for immunization Z23 [facility] [id number] [place] [address] 00103- 0385 Nov, Diabetes E11.9 ; Gastroparesis K31.84 ; Type 2 diabetes mellitus with diabetic autonomic (poly)neuropathy E11.43 and Obstructive sleep apnea syndrome G47.33 [facility] [id number] [place] [address] 46336- 5452 Oct, [place] [address] [id number] [place] [address] 40627- 8625 Aug, [facility] [id number] [place] [address] 88306- 1967 July, Gastro-esophageal reflux disease without esophagitis K21.9 [facility] [id number] [place] [address] 73224- 6704 July, [facility] [address] 56695- 7301 July, Diabetes E11.9 [facility] [address] 12798- 8293 July, Diabetes E11.9 ; Obstructive sleep apnea syndrome G47.33 and Neuropathy G62.9 [facility] [id number] [place] [address] 10619- 0302 July, Bipolar disorder, current episode depressed, moderate F31.32 ; BRITTANI (generalized anxiety disorder) F41.1 and Panic disorder with agoraphobia F40.01 [facility] [id number] [place] [address] 48528- 1143 Jun, [facility] [id number] [place] [address] 85502- 0965 Jun, [facility] [id number] [place] [address] 59000- 5615 Jun, [facility] [id number] [place] [address] 20620- 7736 Jun, [facility] [id number] [place] [address] [id number] May, Encounter for dental examination and cleaning without abnormal findings Z01.20 [facility] [id number] [place] [address] 13610- 1938 Apr, [facility] [id number] [place] [address] 38002- 0487 Apr, [facility] [id number] [place] [address]- 3578 04 Apr, 2015 Bipolar disorder, current episode depressed, moderate F31.32 ; BRITTANI (generalized anxiety disorder) F41.1 and Panic disorder with agoraphobia F40.01 [place] [id number] [place] [address] 43076- 6695 04 Apr, 2015 Hyperlipidemia, unspecified E78.5 [facility] [address] [id number] Apr, Dental caries K02.9 [facility] [address] [id number] Feb, Dental caries K02.9 and Encounter for dental examination Z01.[address] 29179- 1671 Feb, [address] 57891- 6190 Feb, Diabetes E11.9 ; Insulin long-term use Z79.4 ; Diabetic polyneuropathy associated with diabetes mellitus due to underlying condition E08.42 and Barretts esophagus with high grade dysplasia K22.[address] 05316- 1714 14 Feb, [address] 99405- 2744 17 Jan, 2015 Pain in right hip M25.551 and Other chronic pain G89.29 [place] [id number] [place] [address] 60018- 9058 05 Jan, 2015 Impingement syndrome, shoulder, left M75.[address] 63156- 2961 05 Jan, 2015 Bipolar disorder, current episode depressed, moderate F31.32 ; Generalized anxiety disorder F41.1 and Agoraphobia with panic disorder F40.[address] 92358- 4908 Jan, [facility] [address] [place] [address] 09784- 4575 Dec, [facility] [id number] [place] [address] 108102- 9733 Dec, [facility] [id number] [place] [address] 967381- 1451 Dec, Right hip pain M25.551 and Left shoulder pain M25.512 [facility] [id number] [place] [address] 863657- 9370 Dec, Bipolar 1 disorder, depressed, moderate F31.32 ; BRITTANI ( generalized anxiety disorder) F41.1 and Panic disorder with agoraphobia F40.01 [facility] [id number] [place] [address] 74111- 7037 Dec, [facility] [id number] [place] [address] 48556- 6249 Dec, [facility] [id number] [place] [address] 88225- 9792 28 Nov, 2014 [facility] [id number] [place] [address] 71630- 4296 18 Nov, 2014 [facility] [id number] [place] [address] 06203- 1001 14 Nov, 2014 [facility] [id number] [place] [address] 51073- 5317 14 Nov, 2014 Diabetes 250.00 [facility] [id number] [place] [address] 91770- 1616 Oct, [facility] [id number] [place] [address] 22957215- 6836 Oct, [facility] [id number] [place] [address] 016048- 1972 Oct, [facility] [id number] [place] [address] 02351- 3973 Oct, [facility] [address], [place] [address]- 4631 Oct, [facility] [id number] [place] [address] 57395- 2577 Oct, [facility] [id number] [address]- 0139 Oct, Diabetes 250.00 ; Insomnia 780.52 and Forgetfulness 780.99 [facility] [id number] [address]- 0157 Oct, Depressive disorder, not elsewhere classified 311 [facility] [id number] [place] [address] 84959- 1345 Sep, [facility] [id number] [place] [address] 64722- 5196 Sep, [facility] [id number] [place] [address] 50971- 9598 Sep, [facility] [address], [place] [address]- 1214 Sep, [facility] [id number] [place] [address] 49682- 4771 Sep, [facility] [address], [place] [address]- 7449 Sep, [facility] [address] [place] [address] 13473- 1911 Sep, [facility] [address], [place] [address]- 8201 Aug, [facility] [address] [place] [address] [id number] Aug, Dental examination V72.2 [facility] [address], [place] [address]- 7156 Aug, [facility] [id number] [place] [address] 12093- 2417 Aug, [facility] [address] [id number] [place] [address]- 6958 July, [facility] [place] [facility] [address] [id number] [place] [address]- 3402 July, [facility] [place] [facility] [address] [facility] [id number] [place] [address]- 9056 July, [facility] [place] [facility] [address] [id number] [place] [address]- 2813 July, [facility] [place] [facility] [address] [id number] [place] [address]- 0786 Jun, [facility] [place] [facility] [address] [id number] [place] [address]- 7787 Jun, [facility] [place] [facility] [address] [facility] [id number] [place] [address]- 3820 May, [facility] [place] [facility] [address] [id number] [place] [address]- 5713 May, [facility] [place] [facility] [address] [id number] [place] [address]- 5569 May, [facility] [place] [facility] [address] [facility] [id number] [place] [address]- 9483 May, [facility] [place] [facility] [address] [id number] [place] [address]- 5287 May, [facility] [place] [facility] [address] [id number], [place] [address]- 1458 17 May, 2014 [facility] [place] [facility] [address] [id number] [place] [address]- 3971 16 May, 2014 [facility] [place] [facility] [address] [facility] [id number] [place] [address]- 8526 May, [facility] [place] [facility] [address] [facility] [id number] [place] [address]- 8016 Apr, [facility] [place] [facility] [address] [id number] [place] [address]- 9942 Apr, [facility] [place] [facility] [address] [id number] [place] [address]- 3686 Apr, [facility] [place] [facility] [address] [id number] [place] [address]- 6636 Apr, [facility] [place] [facility] [address] [id number] [place] [address]- 1213 Apr, [facility] [place] [facility] [address] [id number] [place] [address]- 6602 Apr, [facility] [place] [facility] [address] [id number] [place] [address]- 8195 Mar, [facility] [place] [facility] [address] [id number] [place] [address]- 7980 Mar, [facility] [place] [facility] [address] [id number] [place] [address]- 1784 Mar, [facility] [place] [facility] [address] [id number] [place] [address]- 1084 Mar, [facility] [place] [facility] [address] [id number] [place] [address]- 4861 Mar, [facility] [place] [facility] [address] [id number] [place] [address]- 1648 Mar, [facility] [place] [facility] [address] [id number] [place] [address]- 7266 Mar, [facility] [place] [facility] [address] [id number] [place] [address]- 8363 Mar, [facility] [place] [facility] [address] [id number] [place] [address]- 2726 Mar, [facility] [place] [facility] [address] [id number] [place] [address]- 7694 Mar, [facility] [place] [facility] [address] [id number] [place] [address]- 4177 Mar, [facility] [place] [facility] [address] [id number] [place] [address]- 6941 Mar, [facility] [place] [facility] [address] [id number] [place] 5827 Mar, [facility] [place] [facility] [address] [id number] [place] [address]- 7529 Mar, [facility] [place] [facility] [address] [id number] [place] [address]- 0658 Feb, [facility] [place] [facility] [address] [id number] [place] [address]- 8910 30 Feb, 2014 [facility] [place] [facility] [address] [id number] [place] [address]- 3481 Feb, [facility] [place] [facility] [address] [id number] [place] [address]- 3582 Feb, [facility] [place] [facility] [address] [id number] [place] [address]- 6942 Feb, [facility] [place] [facility] [address] [id number] [place] [address]- 5647 Feb, [facility] [place] [facility] [address] [id number] [place] [address]- 4965 16 Feb, 2014 [facility] [place] [facility] [address] [id number] [place] [address]- 3749 16 Feb, 2014 [facility] [place] [facility] [address] [id number] [place] [address]- 0586 16 Feb, 2014 [facility] [place] [facility] [address] [id number] [place] [address]- 3924 16 Feb, 2014 [facility] [place] [facility] [address] [id number] [place] [address]- 3419 10 Feb, 2014 [facility] [place] [facility] [address] [id number] [place] [address]- 3629 10 Feb, 2014 [facility] [place] [facility] [address] [id number] [place] [address]- 4659 Feb, [facility] [place] [facility] [address] [id number] [place] [address]- 2321 Feb, [facility] [place] [facility] [address] [id number] [place] [address]- 1881 Jan, [facility] [place] [facility] [address] [id number] [place] [address]- 1485 Jan, [facility] [place] [facility] [address] [id number] [place] [address]- 4954 Jan, [facility] [place] [facility] [address] [id number] [place] [address]- 1708 Jan, [facility] [place] [facility] [address] [id number] [place] 3308 Dec, [facility] [place] [facility] [address] [id number] [place] [address]- 0329 Dec, [facility] [place] [facility] [address] [id number] [place] 8742 Dec, [facility] [place] [facility] [address] [id number] [place] [address]- 4585 Dec, [facility] [place] [facility] [address] [facility] [id number] [place] [address]- 6426 Dec, [facility] [place] [facility] [address] [id number] [place] [address]- 7514 Dec, [facility] [place] [facility] [address] [id number] [place] [address]- 9526 Dec, [facility] [place] [facility] [address] [id number] [place] [address]- 0559 Dec, [facility] [place] [facility] [address] [id number] [place] [address]- 2546 30 Nov, 2013 [facility] [place] [facility] [address] [id number] [place] [address]- 1708 Nov, [facility] [place] [facility] [address] [id number] [place] [address]- 3953 Nov, [facility] [place] [facility] [address] [id number] [place] [address]- 4786 Nov, [facility] [place] [facility] [address] [id number] [place] [address] Nov, [facility] [place] [facility] [address] [id number] [place] [address] Oct, [facility] [place] [facility] [address] [id number] [place] [address] Oct, [facility] [place] [facility] [address] [id number] [place] [address] Sep, [facility] [place] [facility] [address] [id number] [place] [address] Sep, [facility] [place] [facility] [address] [id number] [place] [address] Sep, [facility] [place] [facility] [address] [id number] [place] [address] Sep, [facility] [place] [facility] [address] [id number] [place] [address] Sep, [facility] [place] [facility] [address] [id number] [place] [address] Sep, [facility] [place] [facility] [address] [id number] [place] [address] Sep, [facility] [place] [facility] [address] [id number] [place] [address] Sep, [facility] [place] [facility] [address] [id number] [place] [address] Sep, [facility] [place] [facility] [address] [id number] [place] [address] Sep, [facility] [place] [facility] [address] [id number] [place] [address] Sep, [facility] [place] [facility] [address] [id number] [place] [address] Sep, [facility] [place] [facility] [address] [id number] [place] [address] Sep, [facility] [place] [facility] [address] [id number] [place] [address] Sep, [facility] [place] [facility] [address] [id number] [place] [address] July, [facility] [place] [facility] [address] [id number] [place] [address] July, [facility] [place] [facility] [address] [id number] [place] [address] July, [facility] [place] [facility] [address] [id number] [place] [address] July, [facility] [place] [facility] [address] [id number] [place] [address] July, [facility] [place] [facility] [address] [id number] [place] [address] July, [facility] [place] [facility] [address] [id number] [place] [address]- [address] July, [facility] [place] [facility] [address] [id number] [place] [address] July, [facility] [place] [facility] [address] [id number] [place] [address] Jun, [facility] [place] [facility] [address] [id number] [place] [address] Jun, [facility] [place] [facility] [address] [id number] [place] [address] Jun, [facility] [place] [facility] [address] [id number] [place] [address] Jun, [facility] [place] [facility] [address] [id number] [place] [address] 07 Jun, 2013 [facility] [place] [facility] [address] [id number] [place] [address] 07 Jun, 2013 [facility] [place] [facility] [address] [id number] [place] [address] Jun, [facility] [place] [facility] [address] [id number] [place] [address] Jun, [facility] [place] [facility] [address] [id number] [place] [address] 27 May, 2013 [facility] [place] [facility] [address] [id number] [place] [address] 27 May, 2013 [facility] [place] [facility] [address] [id number] [place] [address] May, [facility] [place] [facility] [address] [id number] [place] [address] May, [facility] [place] [facility] [address] [id number] [place] [address] 20 May, 2013 [facility] [place] [facility] [address] [id number] [place] [address] 20 May, 2013 [facility] [place] [facility] [address] [id number] [place] [address] 19 May, 2013 [facility] [place] [facility] [address] [id number] [place] [address] 19 May, 2013 [facility] [place] [facility] [address] [id number] [place] [address] 17 May, 2013 [facility] [place] [facility] [address] [id number] [place] [address] 17 May, 2013 [facility] [place] [facility] [address] [id number] [place] [address] 68[address] 17 May, 2013 [facility] [place] [facility] [address] [id number] [place] [address] 17[address] May, [facility] [place] [facility] [address] [id number] [place] [address] 2012 May, [facility] [place] [facility] [address] [id number] [place] [address] 48[address] May, [facility] [place] [facility] [address] [id number] [place] [address] May, [facility] [place] [facility] [address] [id number] [place] [address] May, [facility] [place] [facility] [address] [id number] [place] [address] Apr, [facility] [place] [facility] [address] [id number] [place] [address] 8[address] Apr, [facility] [place] [facility] [address] [id number] [place] [address] 0585 Mar, [facility] [place] [facility] [address] [id number] [place] [address] 4[address] Mar, [facility] [place] [facility] [address] [id number] [place] [address] 45[address] Mar, [facility] [place] [facility] [address] [id number] [place] [address] 4[address] Mar, [facility] [place] [facility] [address] [id number] [place] [address] 6294 Mar, [facility] [place] [facility] [address] [id number] [place] [address] 7456 Mar, [facility] [place] [facility] [address] [id number] [place] [address] 7090 Feb, [facility] [place] [facility] [address] [id number] [place] [address] 3500 Feb, [facility] [place] [facility] [address] [id number] [place] [address] 2864 Feb, [facility] [place] [facility] [address] [id number] [place] [address] 5296 Feb, [facility] [address] [id number] [place] [address] 74[address] Feb, [facility] [place] [facility] [address] [id number] [place] [address] 5168 Feb, [facility] [address] [id number] [place] [address] 0334 Jan, [facility] [place] [facility] [address] [id number] [place] [address] 5293 Jan, [facility] [address] [id number] [place] [address] 2874 Jan, [facility] [address] [id number] [place] [address] Jan, [facility] [place] [facility] [address] [id number] [place] [address]- 2525 Jan, [facility] [address] [id number] [place] [address] 5076 Jan, [facility] [place] [facility] [address] [id number] [place] [address] 9350 Jan, [facility] [address] [facility] [id number] [place] [address] Dec, [facility] [place] [facility] [address] [id number] [place] [address] 7879 Dec, [facility] [place] [facility] [address] [id number] [place] [address] 7235 Dec, [facility] [place] [facility] [address] [id number] [place] [address] 36[address] Nov, [facility] [place] [facility] [address] [id number] [place] [address] 2546 Oct, [facility] [place] [facility] [address] [id number] [place] [address]- 3367 Sep, [facility] [address] [id number] [place] [address] 9516 Sep, [facility] [place] [facility] [address] [id number] [place] [address] 5084 Sep, [facility] [place] [facility] [address] [id number] [place] [address] 5434 Sep, [facility] [place] [facility] [address] [id number] [place] [address]- 4307 Sep, [facility] [address] [id number] [place] [address] 5116 Sep, [facility] [place] [facility] [address] [id number] [place] [address] 0400 Aug, [facility] [place] [facility] [address] [id number] [place] [address] 2194 Aug, [facility] [place] [facility] [address] [id number] [place] [address] 5428 July, [facility] [place] [facility] [address] [id number] [place] [address]- 9425 July, [facility] [place] [facility] [address] [id number] [place] [address] 2474 July, [facility] [place] [facility] [address] [id number] [place] [address] 1012 July, [facility] [place] [facility] [address] [id number] [place] [address] 1609 Jun, [facility] [place] [facility] [address] [id number] [place] [address] 8356 May, [facility] [place] [facility] [address] [id number] [place] [address] 5481 May, [facility] [place] [facility] [address] [id number] [place] [address]- 7811 May, [facility] [place] [facility] [address] [id number] [place] [address] 3837 Mar, [facility] [address] [id number] [place] [address] 1385 Mar, [facility] [place] [facility] [address] [id number] [place] [address]- 5289 Mar, [facility] [address] [id number] [place] [address] 2726 Feb, [facility] [place] [facility] [address] [id number] [place] [address]- 0871 Feb, [facility] [address] [id number] [place] [address]- 5386 Feb, [facility] [place] [facility] [address] [id number] [place] [address]- 4936 Feb, [facility] [address] [id number] [place] [address] 4869 Feb, [facility] [place] [facility] [address] [id number] [place] [address]- 7786 Feb, [facility] [place] [facility] [address] [id number] [place] [address]- 8843 Feb, [facility] [place] [facility] [address] [id number] [place] [address]- 2014 Feb, [facility] [place] [facility] [address] [id number] [place] [address]- 1647 Feb, [facility] [place] [facility] [address] [id number] [place] [address]- 0592 Feb, [facility] [place] [facility] [address] [id number] [place] [address]- 0814 Jan, [facility] [place] [facility] [address] [id number] [place] [address]- 6843 Jan, [facility] [place] [facility] [address] [id number] [place] [address]- 2167 Jan, [facility] [place] [facility] [address] [id number] [place] [address]- 9654 Jan, [facility] [place] [facility] [address] [id number] [place] [address]- 5190 Jan, [facility] [place] [facility] [address] [id number] [place] [address]- 8793 Jan, [facility] [place] [facility] [address] [id number] [place] [address]- 5965 Jan, [facility] [place] [facility] [address] [id number] [place] [address]- 5055 Jan, [facility] [place] [facility] [address] [id number] [place] [address]- 4828 Jan, [facility] [place] [facility] [address] [id number] [place] [address]- 9468 Jan, [facility] [place] [facility] [address] [id number] [place] [address]- 6396 Dec, [facility] [place] [facility] [address] [id number] [place] [address]- 9734 Dec, [facility] [place] [facility] [address] [id number] [place] [address]- 0750 Nov, [facility] [place] [facility] [address] [id number] [place] [address]- 1622 24 Nov, 2011 [facility] [place] [facility] [address] [id number] [place] [address]- 1258 05 Nov, 2011 [facility] [place] [facility] [address] [id number] [place] [address]- 5333 Oct, [facility] [place] [facility] [address] [id number] [place] [address]- 9539 Oct, [facility] [place] [facility] [address] [id number] [place] [address] Oct, [facility] [place] [facility] [address] [id number] [place] [address]- 7801 Oct, [facility] [place] [facility] [address] [id number] [place] [address]- 1610 18 Aug, 2011 [facility] [place] [facility] [address] [id number] [place] [address]- 6594 15 Aug, 2011 [facility] [place] [facility] [address] [id number] [place] [address]- 0008 14 Aug, 2011 [facility] [place] [facility] [address] [id number] [place] [address]- 7215 07 Aug, 2011 [facility] [place] [facility] [address] [id number] [place] [address]- 2379 08 Jun, 2011 [facility] [place] [facility] [address] [id number] [place] [address]- 9156 May, [facility] [place] [facility] [address] [id number] [place] [address]- 1306 May, [facility] [place] [facility] [address] [id number] [place] [address]- 2859 20 Apr, 2011 [facility] [place] [facility] [address] [id number] [place] [address]- 8547 Apr, [facility] [place] [facility] [address] [id number] [place] [address]- 3912 15 Apr, 2011 [facility] [place] [facility] [address] [id number] [place] [address]- 6549 14 Apr, 2011 [facility] [place] [facility] [address] [id number] [place] [address]- 9874 Mar, [facility] [place] [facility] [address] [id number] [place] [address]- 0736 Mar, [facility] [place] [facility] [address] [id number] [place] [address]- 6484 Mar, [facility] [place] [facility] [address] [id number] [place] [address]- 5436 Mar, [facility] [place] [facility] [address] [id number] [place] [address]- 4557 13 Mar, 2011 [facility] [address] [id number] [place] [address]- 3360 13 Mar, 2011 [facility] [address] [id number] [place] [address]- 4130 27 Feb, 2011 [facility] [address] [id number] [place] [address]- 9121 Jan, [facility] [address] [id number] [place] [address]- 4352 15 Jan, 2011 [facility] [address] [id number] [place] [address]- 1963 Jan, [facility] [address] [id number] [place] [address]- 2537 Jan, [facility] [address] [id number] [place] [address]- 2228 Jan, [facility] [address] [id number] [place] [address]- 8127 Dec, [facility] [address] [id number] [place] [address]- 3781 May, [facility] [address] [id number] [place] [address]- 6744 14 Apr, 2010 [facility] [address] [id number] [place] [address]- 8327 Mar, [facility] [address] [id number] [place] [address]- 3205 Feb, [facility] [place] [facility] [address] [id number] [place] [address]- 8741 Feb, [facility] [place] [facility] [address] [id number] [place] [address]- 5428 14 Feb, 2010 [facility] [place] [facility] [address] [id number] [place] [address]- 0314 Feb, [facility] [address] [facility] [id number] [place] [address] 2167 Dec, [facility] [address] [facility] [id number] [place] [address] Dec, IMMUNIZATIONS No Known Immunizations SOCIAL HISTORY Never Assessed REASON FOR VISIT Prior Authorization Request PLAN OF CARE VITAL SIGNS MEDICATIONS Medication Instructions Dosage Frequency Start Date End Date Duration Status Gabapentin 400 MG Orally 3 times a day 2 tablets 8h 30 days Active RESULTS No Results PROCEDURES [...]
--- OUTSIDE RECORDS SUMMARY | 2017-12-04 09:51 | XMS REPORT ---
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 Problem Pain in joint, pelvic region and thigh 719.45 Active Problem Acute bronchitis 466.0 Active Problem Heartburn 787.1 Active Problem Painful respiration 786.52 Active Problem Abdominal pain, epigastric 789.06 Active Problem Esophageal reflux 530.81 Active Problem Flatulence, eructation, and gas pain 787.3 Active Problem Ingrowing nail 703.0 Active Problem Cough 786.2 Active Problem PPV23 (PNEUMOVAX) DX V03.82 Active Problem Other and unspecified hyperlipidemia 272.4 Active Problem Other symptoms involving cardiovascular system 785.9 Active Problem Irritable bowel syndrome 564.1 Active Problem Diarrhea 787.91 Active Problem Special screening for malignant neoplasms, colon V76.51 Active Problem Family history of malignant neoplasm of gastrointestinal tract V16.0 Active Problem Depressive disorder, not elsewhere classified 311 Active Problem Special screening for osteoporosis V82.81 Active Problem Primary localized osteoarthrosis, 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 Active Problem Unspecified essential hypertension 401.9 Active Problem Herpes zoster without mention of complication 053.9 Active Problem Other abnormal blood chemistry 790.6 Active Problem Chest pain, unspecified 786.50 Active Problem Unspecified peripheral vertigo 386.10 Active Problem Routine gynecological examination V72.31 Active Problem Unspecified breast screening V76.10 Active Problem Unspecified backache 724.5 Active Problem Acute upper respiratory infections of unspecified site 465.9 Active Problem Coronary atherosclerosis of unspecified type of vessel, diomede or graft 414.00 Active Problem Dermatophytosis of nail 110.1 Active Medications No Known Medications Results No Known Results Summary Purpose eClinicalWorks Submission
--- OUTSIDE RECORDS SUMMARY | 2017-12-04 09:52 | XMS REPORT ---
Author Author JYOTSNA EMERY Organization [facility] Address [address] [place] [address] Care Team Providers Care Peoplesoft Administrator Name Role Phone JYOTSNA EMERY Unavailable PROBLEMS Type Condition ICD9-CM Code KKI50-NA Code Onset Dates Condition Status SNOMED Code Problem Diabetes E11.9 Active 887432248 Problem Type 2 diabetes mellitus with hyperglycemia E11.65 Active 73134470 Problem Essential hypertension I10 Active 10134275 Problem Diabetic polyneuropathy associated with diabetes mellitus due to underlying condition E08.42 Active 27762487 Problem Rotator cuff syndrome of right shoulder M75.101 Active [id number] Problem Slow transit constipation K59.01 Active 45265832 Problem retirement current use of insulin Z79.4 Active 140346142 Problem Constipation, unspecified constipation type K59.00 Active 16348623 Problem Irritable bowel syndrome, unspecified type K58.9 Active 51474118 Problem Barretts esophagus without dysplasia K22.70 Active 252651544 Problem 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 01 Nov, 2014 Active 9771753 Problem Herniation of intervertebral disc at C5-C6 level M50.222 Active 328277563 Problem Gastroparesis K31.84 Active 433595039 Problem Bipolar disorder, current episode depressed, moderate F31.32 Active 712687111 Problem Gastro-esophageal reflux disease without esophagitis K21.9 Active 205287596 Problem Panic disorder with agoraphobia F40.01 Active 17688928 Problem Type 2 diabetes mellitus with diabetic autonomic (poly)neuropathy E11.43 Active 324771296 Problem BRITTANI (generalized anxiety disorder) F41.1 Active 12030154 Problem Obstructive sleep apnea syndrome G47.33 Active 70695404 ALLERGIES Substance Reaction Event Type Date Status Codeine Sulfate hives Drug Allergy May, Active Advil rash Drug Allergy May, Active All nsaids Unknown Non Drug Allergy May, Active ENCOUNTERS Encounter Location Date Diagnosis [facility] [id number] [place] [address] 86270- 2477 Oct, [facility] [address] 81180- 1450 July, [place] [id number] [place] [address] 37651- 2790 Jun, Type 2 diabetes mellitus with diabetic autonomic (poly) neuropathy E11.43 and Type 2 diabetes mellitus with hyperglycemia E11.65 [facility] [id number] [place] [address] 38364- 9753 May, [place] [address] 90705- 8613 May, Bipolar disorder, current episode depressed, moderate F31.32 [facility] [id number] [place] [address] 27536 -8810 May, [place] [address] 41965- 6774 May, Diabetic polyneuropathy associated with diabetes mellitus due to underlying condition E08.42 [place] [id number] [place] [address] 32858- 2288 Apr, [place] [id number] [place] [address] 61138- 1820 Feb, Ganglion cyst of dorsum of right wrist M67.431 [place] [id number] [place] [address] 74233- 6815 Jan, Other cyst of bone, right forearm M85.631 [place] [id number] [place] [address] 93364- 0835 Jan, [place] [id number] [place] [address] 29173- 1001 Jan, Diabetes E11.9 and Right forearm pain M79.631 [place] [address] 65855- 8588 Dec, Encounter for immunization Z23 [facility] [id number] [place] [address] 61891- 9202 Nov, [facility] [id number] [place] [address] 77016- 1830 Nov, Type 2 diabetes mellitus with hyperglycemia E11.65 [facility] [id number] [place] [address] 32500- 2951 Nov, Severe pain of right shoulder M25.511 [facility] [id number] [place] [address] 21032- 4076 Oct, Diabetes E11.9 [facility] [id number] [place] [address] 16165- 5971 Oct, Diabetes E11.9 [facility] [id number] [place] [address] 19818- 4574 Oct, [facility] [id number] [place] [address] 28286- 8906 Oct, [facility] [id number] [place] [address] 03118- 4240 Oct, Rotator cuff syndrome of right shoulder M75.101 [facility] [id number] [place] [address] 79455- 4875 Oct, Diabetes E11.9 [facility] [id number] [place] [address] 02770- 3018 Sep, Type 2 diabetes mellitus with hyperglycemia E11.65 ; Obstructive sleep apnea syndrome G47.33 and Constipation, unspecified constipation type K59.00 [facility] [id number] [place] [address] 74558- 9031 Aug, [facility] [id number] [place] [address] 97497- 1252 Aug, [facility] [id number] [place] [address] 12968- 1390 Aug, Type 2 diabetes mellitus with diabetic autonomic (poly) neuropathy E11.43 [place] [id number] [place] [address] 71773- 3016 July, Type 2 diabetes mellitus with hyperglycemia E11.65 [place] [id number] [place] [address] 27275- 3027 Jun, Slow transit constipation K59.01 [place] [address] 67374- 1119 May, [place] [address] 33484- 1558 May, Diabetes E11.9 [place] [address] 95861- 7974 May, [facility] [id number] [place] [address] 01808 -0005 Apr, [place] [address] 04994- 6479 Apr, Gastroenteritis K52.9 [facility] [place] [id number] [place] [address] 15518 -6500 Apr, Abdominal pain, unspecified location R10.9 ; Gastroenteritis K52.9 ; Type 2 diabetes mellitus with hyperglycemia E11.65 and retirement current use of insulin Z79.4 [place] [id number] [place] [address] 74606- 1962 Apr, [place] [id number] [place] [address] 91180- 8025 Apr, [place] [id number] [place] [address] 28167- 6516 Apr, Diabetes E11.9 ; Gastroparesis K31.84 ; Generalized abdominal pain R10.84 ; Essential hypertension I10 ; Bronchitis J40 and Other fatigue R53.83 [facility] [id number] [place] [address] 66845 -0784 Mar, [facility] [id number] [place] [address] 60621 -4839 Mar, [facility] [address] 92684 -5685 Mar, Laceration of scalp without foreign body, initial encounter S01.01XA ; Laceration of face, initial encounter S01.81XA and Encounter for immunization Z23 [place] [address] 80737- 3379 Mar, Type 2 diabetes mellitus with diabetic autonomic (poly) neuropathy E11.[address] 40895- 0982 Feb, [place] [address] 37104- 3822 Feb, Internal hemorrhoids K64.8 and Obstructive sleep apnea syndrome G47.[address] 37654- 5502 Feb, SI (sacroiliac) joint dysfunction M53.[address] 78545- 9672 Jan, [place] [address] 27600- 8829 Dec, Gastroparesis K31.84 [place] [address] 59017- 9063 Dec, [place] [address] 53857- 6716 Dec, Right hip pain M25.551 ; Nose congested R09.81 and Encounter for immunization Z23 [place] [id number] [place] [address] 56265- 1002 Nov, Diabetes E11.9 ; Gastroparesis K31.84 ; Type 2 diabetes mellitus with diabetic autonomic (poly)neuropathy E11.43 and Obstructive sleep apnea syndrome G47.33 [place] [id number] [place] [address] 50597- 2297 Oct, [facility] [id number] [place] [address] 02948- 3090 Aug, [facility] [id number] [place] [address] 69048- 3263 July, Gastro-esophageal reflux disease without esophagitis K21.9 [facility] [address] 81203- 2477 July, [facility] [address] 20311- 8390 July, Diabetes E11.9 [place] [id number] [place] [address] 66561- 2911 July, Diabetes E11.9 ; Obstructive sleep apnea syndrome G47.33 and Neuropathy G62.9 [place] [id number] [place] [address] 31066- 2688 July, Bipolar disorder, current episode depressed, moderate F31.32 ; BRITTANI (generalized anxiety disorder) F41.1 and Panic disorder with agoraphobia F40.01 [place] [id number] [place] [address] 50943- 3537 Jun, [facility] [id number] [place] [address] 25137- 5559 Jun, [facility] [id number] [place] [address] 59613- 8720 Jun, [facility] [id number] [place] [address] 73651- 7903 Jun, [facility] [id number] [place] [address] [id number] May, Encounter for dental examination and cleaning without abnormal findings Z01.20 [facility] [id number] [place] [address] 42149- 5762 Apr, [facility] [id number] [place] [address] 46017- 3690 Apr, [address] 00762- 4728 Apr, Bipolar disorder, current episode depressed, moderate F31.32 ; BRITTANI (generalized anxiety disorder) F41.1 and Panic disorder with agoraphobia F40.[address] 32245- 2986 Apr, Hyperlipidemia, unspecified E78.5 [facility] [address] [id number] Apr, Dental caries K02.9 [facility] [address] [id number] Feb, Dental caries K02.9 and Encounter for dental examination Z01.[address] 38287- 9910 Feb, [address] 33179- 6164 Feb, Diabetes E11.9 ; Insulin long-term use Z79.4 ; Diabetic polyneuropathy associated with diabetes mellitus due to underlying condition E08.42 and Barretts esophagus with high grade dysplasia K22.711 [place] [id number] [place] [address] 74736- 2448 Feb, [address] 60161- 2444 Jan, Pain in right hip M25.551 and Other chronic pain G89.[address] 96658- 0102 Jan, Impingement syndrome, shoulder, left M75.42 [place] [id number] [place] [address] 86263- 9831 Jan, Bipolar disorder, current episode depressed, moderate F31.32 ; Generalized anxiety disorder F41.1 and Agoraphobia with panic disorder F40.01 [facility] [address] [address]- 8143 Jan, [facility] [id number] [place] [address] 396454- 3074 Dec, [facility] [id number] [place] [address] 20162- 6633 Dec, [facility] [id number] [place] [address] 48424- 1188 Dec, Right hip pain M25.551 and Left shoulder pain M25.512 [facility] [id number] [place] [address] 32184- 9956 Dec, Bipolar 1 disorder, depressed, moderate F31.32 ; BRITTANI ( generalized anxiety disorder) F41.1 and Panic disorder with agoraphobia F40.01 [facility] [id number] [place] [address] 57663- 4397 Dec, [facility] [id number] [place] [address] 70011- 6523 Dec, [facility] [id number] [place] [address] 74838- 3754 Nov, [facility] [id number] [place] [address] 39175- 3417 18 Nov, 2014 [facility] [id number] [place] [address] 19789- 0457 14 Nov, 2014 [facility] [id number] [place] [address] 90626- 8161 14 Nov, 2014 Diabetes 250.00 [facility] [id number] [place] [address] 98855- 2026 Oct, [facility] [id number] [place] [address] 15849- 5628 Oct, [facility] [id number] [place] [address] 40416- 8559 Oct, [facility] [address] [address]- 3481 Oct, [facility] [address] [address]- 7329 Oct, [facility] [id number] [place] [address] 68139- 2960 Oct, [facility] [id number] [place] [address] 73096- 2689 Oct, Diabetes 250.00 ; Insomnia 780.52 and Forgetfulness 780.99 [facility] [id number] [place] [address] 63909- 0911 Oct, Depressive disorder, not elsewhere classified 311 [facility] [id number] [place] [address] 91862- 0163 Sep, [facility] [id number] [place] [address] 85707- 3878 Sep, [facility] [address] [place] [address] 54056- 1602 Sep, [facility] [address] [place] [address] 49033- 0892 Sep, [facility] [address] [address]- 3955 Sep, [facility] [address] [place] [address]- 9728 Sep, [facility] [address] [place] [address]- 4761 Sep, [facility] [address] [address]- 0727 Aug, [facility] [address] [id number] [address] 10 Aug, 2014 Dental examination V72.2 [facility] [id number] [place] [address]- 9038 Aug, [facility] [place] [facility] [address] [id number] [place] [address]- 1093 Aug, [facility] [place] [facility] [address] [id number] [place] [address]- 2746 July, [facility] [place] [facility] [address] [id number] [place] [address]- 9325 July, [facility] [place] [facility] [address] [id number] [place] [address]- 9824 July, [facility] [place] [facility] [address] [id number] [place] [address]- 7663 July, [facility] [place] [facility] [address] [id number] [place] [address]- 0247 Jun, [facility] [place] [facility] [address] [id number] [place] [address]- 5151 Jun, [facility] [place] [facility] [address] [id number] [place] [address]- 6266 May, [facility] [place] [facility] [address] [id number] [place] [address]- 3795 23 May, 2014 [facility] [place] [facility] [address] [id number] [place] [address]- 3786 19 May, 2014 [facility] [place] [facility] [address] [id number] [place] [address]- 0883 19 May, 2014 [facility] [place] [facility] [address] [id number] [place] [address]- 5671 17 May, 2014 [facility] [place] [facility] [address] [id number] [place] [address]- 9906 17 May, 2014 [facility] [place] [facility] [address] [id number] [place] [address]- 2546 16 May, 2014 [facility] [place] [facility] [address] [id number] [place] [address]- 8967 May, [facility] [place] [facility] [address] [id number] [place] [address]- 6955 Apr, [facility] [place] [facility] [address] [id number] [place] [address]- 7136 Apr, [facility] [place] [facility] [address] [id number] [place] [address]- 8245 Apr, [facility] [place] [facility] [address] [id number] [place] [address]- 6968 Apr, [facility] [place] [facility] [address] [id number] [place] [address]- 3148 Apr, [facility] [place] [facility] [address] [id number] [place] [address]- 3150 Apr, [facility] [place] [facility] [address] [id number] [place] [address]- 1607 Mar, [facility] [place] [facility] [address] [id number] [place] [address]- 7410 Mar, [facility] [place] [facility] [address] [id number] [place] [address]- 6466 Mar, [facility] [place] [facility] [address] [id number] [place] [address]- 2320 Mar, [facility] [place] [facility] [address] [id number], [place] [address]- 2700 Mar, [facility] [place] [facility] [address] [id number], [place] [address]- 1077 Mar, [facility] [place] [facility] [address] [id number] [place] [address]- 4292 Mar, [facility] [place] [facility] [address] [id number] [place] [address]- 3998 Mar, [facility] [place] [facility] [address] [id number] [place] [address]- 4357 Mar, [facility] [place] [facility] [address] [id number] [place] [address]- 7175 Mar, [facility] [address] [id number] [place] [address]- 1853 Mar, [facility] [place] [facility] [address] [id number] [place] [address]- 5677 Mar, [facility] [place] [facility] [address] [id number] [place] [address]- 9353 Mar, [facility] [place] [facility] [address] [id number] [place] [address]- 9861 Mar, [facility] [place] [facility] [address] [id number] [place] [address]- 0989 Feb, [facility] [place] [facility] [address] [id number] [place] [address]- 0069 30 Feb, 2014 [facility] [place] [facility] [address] [id number] [place] [address]- 4671 Feb, [facility] [place] [facility] [address] [id number] [place] [address]- 7532 Feb, [facility] [place] [facility] [address] [id number] [place] [address]- 5104 Feb, [facility] [place] [facility] [address] [id number] [place] [address]- 5858 Feb, [facility] [place] [facility] [address] [id number] [place] [address]- 5771 16 Feb, 2014 [facility] [place] [facility] [address] [id number] [place] [address]- 6729 16 Feb, 2014 [facility] [place] [facility] [address] [id number] [place] [address]- 2219 16 Feb, 2014 [facility] [place] [facility] [address] [id number] [place] [address]- 7410 16 Feb, 2014 [facility] [place] [facility] [address] [id number] [place] 9503 10 Feb, 2014 [facility] [place] [facility] [address] [id number] [place] [address]- 9829 Feb, [facility] [place] [facility] [address] [id number] [place] 2664 Feb, [facility] [place] [facility] [address] [id number] [place] [address]- 2843 Feb, [facility] [place] [facility] [address] [id number] [place] [address]- 6543 Jan, [facility] [place] [facility] [address] [id number] [place] [address]- 1617 Jan, [facility] [place] [facility] [address] [id number] [place] [address]- 6805 Jan, [facility] [place] [facility] [address] [id number] [place] [address]- 3934 Jan, [facility] [place] [facility] [address] [id number] [place] [address]- 6117 Dec, [facility] [place] [facility] [address] [id number] [place] [address]- 3701 Dec, [facility] [place] [facility] [address] [id number] [place] [address]- 1858 Dec, [facility] [place] [facility] [address] [id number] [place] [address]- 0682 Dec, [facility] [place] [facility] [address] [id number] [place] [address]- 0317 Dec, [facility] [place] [facility] [address] [id number] [place] [address]- 2501 Dec, [facility] [place] [facility] [address] [id number] [place] [address]- 8280 Dec, [facility] [place] [facility] [address] [id number] [place] 6342 Dec, [facility] [place] [facility] [address] [id number] [place] [address]- 8026 Nov, [facility] [place] [facility] [address] [id number] [place] [address]- 7921 Nov, [facility] [place] [facility] [address] [id number] [place] [address]- 0330 Nov, [facility] [place] [facility] [address] [id number] [place] [address]- 2538 Nov, [facility] [place] [facility] [address] [id number] [place] [address]- 0014 Nov, [facility] [place] [facility] [address] [id number] [place] [address]- 4480 Oct, [facility] [place] [facility] [address] [id number] [place] [address]- 7918 Oct, [facility] [place] [facility] [address] [id number] [place] [address]- 3685 Sep, [facility] [place] [facility] [address] [id number] [place] [address]- 6785 Sep, [facility] [place] [facility] [address] [id number] [place] [address]- 9518 Sep, [facility] [place] [facility] [address] [id number] [place] [address]- 9267 Sep, [facility] [place] [facility] [address] [id number] [place] [address]- 5597 Sep, [facility] [place] [facility] [address] [id number] [place] [address] Sep, [facility] [place] [facility] [address] [id number] [place] [address] Sep, [facility] [place] [facility] [address] [id number] [place] [address] Sep, [facility] [place] [facility] [address] [id number] [place] [address] Sep, [facility] [place] [facility] [address] [id number] [place] [address] Sep, [facility] [address] [id number] [place] [address] Sep, [facility] [address] [id number] [place] [address] Sep, [facility] [address] [id number] [place] [address] Sep, [facility] [address] [id number] [place] [address] Sep, [facility] [address] [id number] [place] [address] July, [facility] [address] [id number] [place] [address] July, [facility] [address] [id number] [place] [address] July, [facility] [address] [id number] [place] [address] July, [facility] [address] [id number] [place] [address] July, [facility] [address] [id number] [place] [address] [address] July, [facility] [place] [facility] [address] [id number] [place] [address] July, [facility] [address] [id number] [place] [address] July, [facility] [place] [facility] [address] [id number] [place] [address] Jun, [facility] [place] [facility] [address] [id number] [place] [address] Jun, [facility] [place] [facility] [address] [id number] [place] [address] Jun, [facility] [place] [facility] [address] [id number] [place] [address] 15 Jun, 2013 [facility] [place] [facility] [address] [id number] [place] [address] Jun, [facility] [place] [facility] [address] [id number] [place] [address] Jun, [facility] [place] [facility] [address] [id number] [place] [address] Jun, [facility] [place] [facility] [address] [id number] [place] [address] Jun, [facility] [place] [facility] [address] [id number] [place] [address] May, [facility] [place] [facility] [address] [id number] [place] [address] May, [facility] [place] [facility] [address] [id number] [place] [address] May, [facility] [place] [facility] [address] [id number] [place] [address] May, [facility] [place] [facility] [address] [id number] [place] [address] May, [facility] [place] [facility] [address] [id number] [place] [address] May, [facility] [place] [facility] [address] [id number] [place] [address] 19 May, 2013 [facility] [place] [facility] [address] [id number] [place] [address] 19 May, 2013 [facility] [place] [facility] [address] [id number] [place] [address]- [id number] 17 May, 2013 [facility] [place] [facility] [address] [id number] [place] [address] 17 May, 2013 [facility] [place] [facility] [address] [id number] [place] [address] May, [facility] [place] [facility] [address] [id number] [place] [address] May, [facility] [place] [facility] [address] [id number] [place] [address] May, [facility] [place] [facility] [address] [id number] [place] [address] May, [facility] [place] [facility] [address] [id number] [place] [address] 59[address] May, [facility] [place] [facility] [address] [id number] [place] [address] 6[address] May, [facility] [place] [facility] [address] [id number] [place] [address] 2267 Apr, [facility] [place] [facility] [address] [id number] [place] [address] 7747 Apr, [facility] [place] [facility] [address] [id number] [place] [address] 1666 Mar, [facility] [place] [facility] [address] [id number] [place] [address] 37[address] Mar, [facility] [place] [facility] [address] [id number] [place] [address] 2696 Mar, [facility] [place] [facility] [address] [id number] [place] [address] 1273 Mar, [facility] [place] [facility] [address] [id number] [place] [address] 0[address] Mar, [facility] [place] [facility] [address] [id number] [place] [address] 1853 Mar, [facility] [place] [facility] [address] [id number] [place] [address] 6757 Feb, [facility] [place] [facility] [address] [id number] [place] [address] 0126 Feb, [facility] [place] [facility] [address] [id number] [place] [address] 3409 Feb, [facility] [place] [facility] [address] [id number] [place] [address] 4598 Feb, [facility] [place] [facility] [address] [id number] [place] [address] 4252 Feb, [facility] [place] [facility] [address] [id number] [place] [address] 6580 Feb, [facility] [place] [facility] [address] [id number] [place] [address]30 Jan, [facility] [place] [facility] [address] [id number] [place] [address] 7245 Jan, [facility] [place] [facility] [address] [id number] [place] [address]- 3620 Jan, [facility] [place] [facility] [address] [id number] [place] [address] 3499 Jan, [facility] [place] [facility] [address] [id number] [place] [address]- 6377 Jan, [facility] [place] [facility] [address] [id number] [place] [address]- 2077 Jan, [facility] [place] [facility] [address] [id number] [place] [address]- 7049 Jan, [facility] [place] [facility] [address] [id number] [place] [address]- 4392 Dec, [facility] [place] [facility] [address] [id number] [place] [address] Dec, [facility] [place] [facility] [address] [id number] [place] [address]- 5407 Dec, [facility] [place] [facility] [address] [id number] [place] [address] 9162 Nov, [facility] [place] [facility] [address] [id number] [place] [address]30 Oct, [facility] [address] [id number] [place] [address]00 Sep, [facility] [place] [facility] [address] [id number] [place] [address] 7961 Sep, [facility] [place] [facility] [address] [id number] [place] [address]- 7077 Sep, [facility] [place] [facility] [address] [id number] [place] [address]- 1014 Sep, [facility] [address] [id number] [place] [address]- 7222 Sep, [facility] [place] [facility] [address] [id number] [place] [address] 0638 Sep, [facility] [place] [facility] [address] [id number] [place] [address] 5696 Aug, [facility] [place] [facility] [address] [id number] [place] [address] 3896 Aug, [facility] [place] [facility] [address] [id number] [place] [address] July, [facility] [place] [facility] [address] [id number] [place] [address] 6916 July, [facility] [place] [facility] [address] [id number] [place] [address] 0646 July, [facility] [place] [facility] [address] [id number], [place] [address] July, [facility] [place] [facility] [address] [id number] [place] [address] 0071 Jun, [facility] [place] [facility] [address] [id number] [place] [address] 9576 May, [facility] [place] [facility] [address] [id number] [place] [address]- 2546 May, [facility] [place] [facility] [address] [id number] [place] [address] 6675 May, [facility] [address] [id number] [place] [address] 2350 Mar, [facility] [place] [facility] [address] [id number] [place] [address]- 4296 Mar, [facility] [address] [id number] [place] [address]- 7426 Mar, [facility] [address] [id number] [place] [address] 6023 Feb, [facility] [address] [id number] [place] [address] 1104 Feb, [facility] [address] [id number] [place] [address]- 8186 Feb, [facility] [address] [id number] [place] [address] 0909 Feb, [facility] [address] [id number] [place] [address]- 1780 Feb, [facility] [place] [facility] [address] [id number] [place] [address]- 2229 Feb, [facility] [address] [id number] [place] [address]- 7845 Feb, [facility] [place] [facility] [address] [id number] [place] [address] 0156 Feb, [facility] [place] [facility] [address] [id number] [place] [address]- 3435 Feb, [facility] [place] [facility] [address] [id number] [place] [address] 3894 Feb, [facility] [place] [facility] [address] [id number] [place] [address] 8093 Jan, [facility] [place] [facility] [address] [id number] [place] [address] 8908 Jan, [facility] [place] [facility] [address] [id number] [place] [address] 5609 Jan, [facility] [place] [facility] [address] [id number] [place] [address]- 7758 Jan, [facility] [place] [facility] [address] [id number] [place] [address]- 8305 Jan, [facility] [place] [facility] [address] [id number] [place] [address], [place] [address]- 9144 Jan, [facility] [place] [facility] [address] [id number] [place] [address]- 7911 Jan, [facility] [place] [facility] [address] [id number] [place] [address]- 4144 Jan, [facility] [place] [facility] [address] [id number] [place] [address]- 7864 Jan, [facility] [place] [facility] [address] [id number] [place] [address]- 3183 Jan, [facility] [place] [facility] [address] [id number] [place] [address] 8000 Dec, [facility] [place] [facility] [address] [id number] [place] [address]- 4812 Dec, [facility] [place] [facility] [address] [id number] [place] [address]- 5288 Nov, [facility] [place] [facility] [address] [id number] [place] [address]- 0724 24 Nov, 2011 [facility] [place] [facility] [address] [id number] [place] [address]- 3135 05 Nov, 2011 [facility] [place] [facility] [address] [id number] [place] [address]- 7373 Oct, [facility] [place] [facility] [address] [id number] [place] [address]- 1686 Oct, [facility] [place] [facility] [address] [id number], [place] [address] 9266 Oct, [facility] [address] [id number] [place] [address]- 9746 Oct, [facility] [place] [facility] [address] [id number] [place] [address]- 1678 18 Aug, 2011 [facility] [place] [facility] [address] [id number] [place] [address]- 7664 15 Aug, 2011 [facility] [place] [facility] [address] [id number] [place] [address]- 5601 14 Aug, 2011 [facility] [place] [facility] [address] [id number] [place] [address]- 9223 07 Aug, 2011 [facility] [place] [facility] [address] [id number] [place] [address]- 8704 08 Jun, 2011 [facility] [address] [facility] [id number] [place] [address]- 6440 May, [facility] [place] [facility] [address] [id number] [place] [address]- 6697 May, [facility] [place] [facility] [address] [id number] [place] [address]- 9067 Apr, [facility] [place] [facility] [address] [id number] [place] [address]- 8777 20 Apr, 2011 [facility] [place] [facility] [address] [id number] [place] [address]- 4532 15 Apr, 2011 [facility] [place] [facility] [address] [id number], [place] [address]- 7068 14 Apr, 2011 [facility] [place] [facility] [address] [id number] [place] [address]- 0912 Mar, [facility] [place] [facility] [address] [id number] [place] [address]- 9883 Mar, [facility] [place] [facility] [address] [id number] [place] [address]- 1771 Mar, [facility] [place] [facility] [address] [id number] [place] [address]- 3158 18 Mar, 2011 [facility] [place] [facility] [address] [id number] [place] [address]- 4104 13 Mar, 2011 [facility] [place] [facility] [address] [id number] [place] [address]- 5088 13 Mar, 2011 [facility] [place] [facility] [address] [id number] [place] [address]- 2598 Feb, [facility] [place] [facility] [address] [id number] [place] [address]- 8423 Jan, [facility] [place] [facility] [address] [id number] [place] [address]- 1894 Jan, [facility] [place] [facility] [address] [id number] [place] [address]- 7616 Jan, [facility] [place] [facility] [address] [id number] [place] [address]- 0421 Jan, [facility] [place] [facility] [address] [id number] [place] [address]- 2037 Jan, [facility] [place] [facility] [address] [id number] [place] [address]- 1397 Dec, [facility] [place] [facility] [address] [id number] [place] [address]- 9856 May, [facility] [place] [facility] [address] [id number] [place] [address]- 6934 14 Apr, 2010 [facility] [place] [facility] [address] [id number] [place] [address]- 5049 Mar, [facility] [place] [facility] [address] [id number] [place] [address]- 3326 Feb, [facility] [place] [facility] [address] [id number] [place] [address]- 6637 Feb, [facility] [place] [facility] [address] [id number] [place] [address]- 6914 14 Feb, 2010 [facility] [address] [facility] [id number] [place] [address]- 3146 Feb, [facility] [address] [facility] [id number] [place] [address]- 1186 Dec, [facility] [address] [facility] [id number] [place] [address]- 8446 Dec, IMMUNIZATIONS No Known Immunizations SOCIAL HISTORY Never Assessed REASON FOR VISIT Woke up this morning with headache blood sugar 435 titrated to get it down. Still dizzy so checked BP 182/112 on left 168/101 on right JStrasserRN PLAN OF CARE VITAL SIGNS Height 67 in 2017-05-18 Weight 203 lbs 2017-05-18 Temperature 98.2 degrees Fahrenheit 2017-05-18 Heart Rate 88 bpm 2017-05-18 Respiratory Rate 18 2017-05-18 BMI 31.79 kg/m2 2017-05-18 Blood pressure systolic 130 mmHg 2017-05-18 Blood pressure diastolic 82 mmHg 2017-05-18 MEDICATIONS Medication Instructions Dosage Frequency Start Date End Date Duration Status Oxybutynin Chloride 5 MG Orally Twice a day 1 tablet 12h 90 Active Diclofenac Epolamine 1.3 % Transdermal Twice a day 1 patch to skin 12h Active Victoza 18 MG/3ML Subcutaneous Once a day Inject 1.8mg 24h 90 Active Effexor XR 150 MG Orally Once a day 1 capsule with food 24h 90 Active Pen [facility] 31G X 6 MM Inject July, 30 days Active Atorvastatin Calcium 40 MG Orally Once a day 1 tablet 24h 90 Active C-PAP Machine N/A as directed Oct, Not-Taking Fish Oil 1000 MG Orally Three times a day 1 capsule 8h Active Metformin HCl 500 mg Orally Twice a day 2 tablet 12h 90 Active Nitrostat 0.4 MG Not-Taking Pantoprazole Sodium 40 MG TAKE ONE TABLET BY MOUTH ONCE DAILY 90 Active NovoLog Flexpen 100 UNIT/ML Subcutaneous 3 times a day. Correct at noon and at supper Base Blood Sugar is 150, increase by 1 unit for every 10 over 150 20 UNITS Active Zenpep 49770 UNIT Orally before meals and snacks 1 tablet 30 Active Aspirin Adult Low Dose 81 MG Orally Once a day 1 tablet 24h Active RectiCare 5 % Externally Four times a day 1 application to anus as needed for pain 6h May, Not-Taking Levemir FlexTouch 100 units/ml Subcutaneous 2 times a day Inject 50 units 12h 90 days Active Quinapril HCl 20 MG TAKE 1 TABLET EVERY DAY 24h 90 Active BusPIRone HCl 10 MG TAKE ONE TABLET BY MOUTH IN THE MORNING, ONE TABLET AT NOON AND TWO TABLETS AT BEDTIME 30 Active Metoprolol Tartrate 50 mg TAKE 1 TABLET TWICE DAILY 90 Active Ondansetron 8 MG Orally every 6 hrs 1 tablet on the tongue and allow to dissolve 6h May, Not-Taking Gabapentin 400 MG Orally 3 times a day 2 tablets 8h 30 days Active OneTouch Ultra Test - test blood sugar 12h Nov, Active Vitamin E 100 UNIT Orally Once a day 1 capsule 24h Not-Taking MiraLax - Orally at bedtime 17 grams mixed with 8 ounces of water or juice as needed May, Active Adult Mask N/A as directed July, Not-Taking RESULTS No Results PROCEDURES No Known procedures [...]
--- OUTSIDE RECORDS SUMMARY | 2017-12-04 09:53 | XMS REPORT ---
Author Author JYOTSNA EMERY [facility] Address [address] [place] [address] Care Team Providers Care Warehouse Receiving Supervisor Name Role Phone JYOTSNA EMERY Unavailable PROBLEMS Type Condition ICD9-CM Code DEL88-BW Code Onset Dates Condition Status SNOMED Code Problem Diabetes E11.9 Active 873326908 Problem Type 2 diabetes mellitus with hyperglycemia E11.65 Active 54635499 Problem Essential hypertension I10 Active 48118501 Problem Diabetic polyneuropathy associated with diabetes mellitus due to underlying condition E08.42 Active 54024585 Problem Rotator cuff syndrome of right shoulder M75.101 Active [id number] Problem Slow transit constipation K59.01 Active 85368244 Problem FDC current use of insulin Z79.4 Active 214486461 Problem Constipation, unspecified constipation type K59.00 Active 87455758 Problem Irritable bowel syndrome, unspecified type K58.9 Active 26363470 Problem Barretts esophagus without dysplasia K22.70 Active 739160936 Problem 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 Nov, Active 0349016 Problem Herniation of intervertebral disc at C5-C6 level M50.222 Active 961978480 Problem Gastroparesis K31.84 Active 104403230 Problem Bipolar disorder, current episode depressed, moderate F31.32 Active 580581048 Problem Gastro-esophageal reflux disease without esophagitis K21.9 Active 588756446 Problem Panic disorder with agoraphobia F40.01 Active 34578677 Problem Type 2 diabetes mellitus with diabetic autonomic (poly)neuropathy E11.43 Active 419168135 Problem BRITTANI (generalized anxiety disorder) F41.1 Active 90762763 Problem Obstructive sleep apnea syndrome G47.33 Active 59999655 ALLERGIES No Information ENCOUNTERS Encounter Location Date Diagnosis [facility] [address] [address] July, [facility] [address] [address]- 1606 Jun, Type 2 diabetes mellitus with diabetic autonomic (poly) neuropathy E11.43 and Type 2 diabetes mellitus with hyperglycemia E11.65 [place] [address] 60157- 1628 May, [place] [address] 06216- 3128 May, Bipolar disorder, current episode depressed, moderate F31.[address] [facility] [address] [address]141 May, [place] [address] 03974- 0144 May, Diabetic polyneuropathy associated with diabetes mellitus due to underlying condition E08.42 [place] [address] 14384- 6128 Apr, [place] [address] 57912- 4288 Feb, Ganglion cyst of dorsum of right wrist M67.431 [place] [address] 57652- 9289 Jan, Other cyst of bone, right forearm M85.631 [place] [address] 29956- 1404 Jan, [place] [address] 05309- 1044 Jan, Diabetes E11.9 and Right forearm pain M79.631 [place] [address] 11730- 9433 Dec, Encounter for immunization Z23 [place] [address] 23868- 5738 Nov, [place] [address] 42933- 8434 Nov, Type 2 diabetes mellitus with hyperglycemia E11.65 [facility] [id number] [place] [address] 17690- 6180 Nov, Severe pain of right shoulder M25.511 [facility] [address] [place] [id number] [place] [address] 64171- 3806 Oct, Diabetes E11.9 [facility] [address] [place] [id number] [place] [address] 92304- 4878 Oct, Diabetes E11.9 [facility] [address] [place] [id number] [place] [address] 78566- 8451 Oct, [facility] [address] [place] [id number] [place] [address] 85542- 4823 Oct, [facility] [address] [place] [id number] [place] [address] 73684- 5660 Oct, Rotator cuff syndrome of right shoulder M75.101 [facility] [address] [place] [id number] [place] [address] 93116- 9418 Oct, Diabetes E11.9 [facility] [address] [place] [id number] [place] [address] 53515- 1590 Sep, Type 2 diabetes mellitus with hyperglycemia E11.65 ; Obstructive sleep apnea syndrome G47.33 and Constipation, unspecified constipation type K59.00 [facility] [address] [place] [id number] [place] [address] 22778- 1953 Aug, [facility] [address] [place] [id number] [place] [address] 72329- 1265 Aug, [facility] [address] [place] [id number] [place] [address] 33656- 6320 Aug, Type 2 diabetes mellitus with diabetic autonomic (poly) neuropathy E11.43 [facility] [address] [place] [id number] [place] [address] 74623- 7296 July, Type 2 diabetes mellitus with hyperglycemia E11.65 [facility] [address] [place] [id number] [place] [address] 35037- 4996 Jun, Slow transit constipation K59.01 [facility] [address] [place] [id number] [place] [address] 03823- 2413 May, [facility] [address] 10481- 6898 May, Diabetes E11.9 [place] [address] 49961- 1153 May, [facility] 53871 -5903 Apr, [place] [address] 92208- 5827 Apr, Gastroenteritis K52.9 [facility] [place] [address] 45267 -3029 Apr, Abdominal pain, unspecified location R10.9 ; Gastroenteritis K52.9 ; Type 2 diabetes mellitus with hyperglycemia E11.65 and FDC current use of insulin Z79.4 [place] [address] [place] [id number] [place] [address] 39095- 0306 Apr, [place] [address] 68878- 2341 Apr, [place] [address] [place] [id number] [place] [address] 63068- 7205 Apr, Diabetes E11.9 ; Gastroparesis K31.84 ; Generalized abdominal pain R10.84 ; Essential hypertension I10 ; Bronchitis J40 and Other fatigue R53.83 [facility] [address] [place] [id number] [place] [address] 86224 -4641 Mar, [facility] [address] 94082 -1585 Mar, [facility] [place] [address] [place] [id number] [place] [address] 02203 -9534 Mar, Laceration of scalp without foreign body, initial encounter S01.01XA ; Laceration of face, initial encounter S01.81XA and Encounter for immunization Z23 [place] [address] [place] [id number] [place] [address] 62540- 5511 Mar, Type 2 diabetes mellitus with diabetic autonomic (poly) neuropathy E11.43 [place] [address] [place] [id number] [place] [address] 88010- 0849 Feb, [place] [address] 75067- 5242 Feb, Internal hemorrhoids K64.8 and Obstructive sleep apnea syndrome G47.[address] 43743- 6475 Feb, SI (sacroiliac) joint dysfunction M53.3 [place] [id number] [place] [address] 16690- 2560 Jan, [place] [address] 91429- 4326 Dec, Gastroparesis K31.[address] 68090- 5038 Dec, [place] [address] [place] [id number] [place] [address] 72652- 1728 Dec, Right hip pain M25.551 ; Nose congested R09.81 and Encounter for immunization Z23 [place] [address] [place] [id number] [place] [address] 06227- 6017 Nov, Diabetes E11.9 ; Gastroparesis K31.84 ; Type 2 diabetes mellitus with diabetic autonomic (poly)neuropathy E11.43 and Obstructive sleep apnea syndrome G47.33 [place] [address] 24501- 1373 Oct, [place] [address] [place] [id number] [place] [address] 28333- 1887 Aug, [place] [id number] [place] [address] 03540- 3729 July, Gastro-esophageal reflux disease without esophagitis K21.9 [facility] [address] 21853- 4218 July, [facility] [address] 81004- 0473 July, Diabetes E11.9 [facility] [address] 85629- 9287 July, Diabetes E11.9 ; Obstructive sleep apnea syndrome G47.33 and Neuropathy G62.9 [place] [address] 52513- 6136 July, Bipolar disorder, current episode depressed, moderate F31.32 ; BRITTANI (generalized anxiety disorder) F41.1 and Panic disorder with agoraphobia F40.01 [place] [address] 94105- 9628 Jun, [facility] [address] 92105- 2794 Jun, [place] [address] 15444- 3136 Jun, [facility] [address] [place] [id number] [place] [address] 96814- 3811 Jun, [facility] [address] [place] [id number] [place] [address] [id number] May, Encounter for dental examination and cleaning without abnormal findings Z01.20 [facility] [address] [place] [id number] [place] [address] 14573- 3473 Apr, [facility] [address] 74604- 3181 Apr, [facility] [address] [place] [id number] [place] [address] 65359- 5918 Apr, Bipolar disorder, current episode depressed, moderate F31.32 ; RBITTANI (generalized anxiety disorder) F41.1 and Panic disorder with agoraphobia F40.01 [facility] [address] [place] [id number] [place] [address] 41115- 7692 04 Apr, 2015 Hyperlipidemia, unspecified E78.5 [facility] [address] [place] [address] [id number] Apr, Dental caries K02.9 [facility] [address] [id number] Feb, Dental caries K02.9 and Encounter for dental examination Z01.20 [place] [address] 88325- 6741 Feb, [place] [address] 26328- 0038 Feb, Diabetes E11.9 ; Insulin long-term use Z79.4 ; Diabetic polyneuropathy associated with diabetes mellitus due to underlying condition E08.42 and Barretts esophagus with high grade dysplasia K22.711 [place] [address] [place] [id number] [place] [address] 65620- 1713 Feb, [place] [address] 87699- 0654 Jan, Pain in right hip M25.551 and Other chronic pain G89.29 [place] [address] [place] [id number] [place] [address] 92359- 2820 Jan, Impingement syndrome, shoulder, left M75.42 [place] [address] [place] [id number] [place] [address] 30807- 4484 Jan, Bipolar disorder, current episode depressed, moderate F31.32 ; Generalized anxiety disorder F41.1 and Agoraphobia with panic disorder F40.01 [place] [address] [place] [id number] [place] [address] 13468- 5858 Jan, [place] [address] 30444- 1752 Dec, [facility] [address] [place] [address] 33368- 0572 Dec, [facility] [address] [place] [id number] [place] [address] 58330- 4471 Dec, Right hip pain M25.551 and Left shoulder pain M25.512 [facility] [address] [place] [id number] [place] [address] 883939- 8084 Dec, Bipolar 1 disorder, depressed, moderate F31.32 ; BRITTANI ( generalized anxiety disorder) F41.1 and Panic disorder with agoraphobia F40.01 [facility] [address] [place] [id number] [place] [address] 480522- 4619 Dec, [facility] [address] [place] [id number] [place] [address] 75841- 2257 Dec, [facility] [address] [place] [id number] [place] [address] 39507- 1031 Nov, [facility] [address] [place] [id number] [place] [address] 93801- 3620 18 Nov, 2014 [facility] [address] [place] [id number] [place] [address] 63118- 7154 Nov, [facility] [address] [place] [id number] [place] [address] 04944- 1490 Nov, Diabetes 250.00 [facility] [address] [place] [id number] [place] [address] 99976- 1964 Oct, [facility] [address] [place] [id number] [place] [address] 21440- 4062 Oct, [facility] [address] [place] [id number] [place] [address] 34101231- 6412 Oct, [facility] [address] [place] [address] 42866- 6866 Oct, [facility] [address] [place] [id number] [place] [address] 67652- 1755 Oct, [facility] [address], [place] [address]- 1070 Oct, [facility] [address] [place] [id number] [place] [address] 308237- 3757 Oct, Diabetes 250.00 ; Insomnia 780.52 and Forgetfulness 780.99 [facility] [address] [place] [id number] [place] [address] 87315- 1065 Oct, Depressive disorder, not elsewhere classified 311 [facility] [address] [place] [id number] [place] [address] 40096- 6033 Sep, [facility] [address] [place] [id number] [place] [address] 64171- 3497 Sep, [facility] [address] [place] [id number] [place] [address] 69186- 3905 Sep, [facility] [address] [place] [id number] [place] [address] 89686- 1133 Sep, [facility] [address] [place] [address] 13731- 3610 Sep, [facility] [address] [place] [id number] [place] [address] 21309- 7323 Sep, [facility] [address], [place] [address]- 0814 Sep, [facility] [address] [place] [address] 71455- 5929 Aug, [facility] [address] [id number] Aug, Dental examination V72.2 [facility] [address] [place] [id number] [place] [address] 90217- 2894 Aug, [facility] [address], [place] [address]- 6430 Aug, [facility] [address] [place] [id number] [place] [address] 28819- 6888 July, [facility] [address] [id number] [place] [address]- 3358 July, [facility] [place] [facility] [address] [id number] [place] [address]- 3653 July, [facility] [place] [facility] [address] [facility] [id number] [place] [address]- 1912 July, [facility] [place] [facility] [address] [id number] [place] [address]- 0531 Jun, [facility] [place] [facility] [address] [id number] [place] [address]- 6378 Jun, [facility] [place] [facility] [address] [id number] [place] [address]- 2969 May, [facility] [place] [facility] [address] [facility] [id number] [place] [address]- 3832 May, [facility] [place] [facility] [address] [facility] [id number] [place] [address]- 5654 May, [facility] [place] [facility] [address] [id number] [place] [address]- 3124 May, [facility] [place] [facility] [address] [facility] [id number] [place] [address]- 1700 May, [facility] [place] [facility] [address] [id number] [place] [address]- 0373 May, [facility] [place] [facility] [address] [facility] [id number] [address]- 8209 16 May, 2014 [facility] [place] [facility] [address] [id number] [place] [address]- 1790 May, [facility] [place] [facility] [address] [facility] [id number] [place] [address]- 3864 Apr, [facility] [place] [facility] [address] [facility] [id number] [place] [address]- 4661 Apr, [facility] [place] [facility] [address] [id number] [place] [address]- 7963 Apr, [facility] [place] [facility] [address] [id number] [place] [address]- 6656 Apr, [facility] [place] [facility] [address] [id number] [place] [address]- 1286 Apr, [facility] [place] [facility] [address] [id number] [place] [address]- 2057 Apr, [facility] [place] [facility] [address] [id number] [place] [address]- 5946 Mar, [facility] [place] [facility] [address] [id number] [place] [address]- 0240 Mar, [facility] [place] [facility] [address] [id number] [place] [address]- 6849 Mar, [facility] [place] [facility] [address] [id number] [place] [address]- 3227 Mar, [facility] [place] [facility] [address] [id number] [place] [address]- 0928 Mar, [facility] [place] [facility] [address] [id number] [place] [address]- 0009 Mar, [facility] [place] [facility] [address] [id number] [place] [address]- 4548 Mar, [facility] [place] [facility] [address] [id number] [place] [address]- 1662 Mar, [facility] [place] [facility] [address] [id number] [place] [address]- 1214 Mar, [facility] [place] [facility] [address] [id number] [place] [address]- 7033 Mar, [facility] [place] [facility] [address] [id number] [place] [address]- 5057 Mar, [facility] [place] [facility] [address] [id number] [place] [address]- 5349 Mar, [facility] [place] [facility] [address] [id number] [place] [address]- 9362 Mar, [facility] [place] [facility] [address] [id number] [place] 1619 Mar, [facility] [place] [facility] [address] [id number] [place] [address]- 5986 Feb, [facility] [place] [facility] [address] [id number] [place] [address]- 1318 30 Feb, 2014 [facility] [place] [facility] [address] [id number] [place] [address]- 0569 Feb, [facility] [place] [facility] [address] [id number] [place] [address]- 0279 Feb, [facility] [place] [facility] [address] [id number] [place] [address]- 4950 Feb, [facility] [place] [facility] [address] [id number] [place] [address]- 2130 Feb, [facility] [place] [facility] [address] [id number] [place] [address]- 6166 16 Feb, 2014 [facility] [place] [facility] [address] [id number] [place] [address]- 8865 16 Feb, 2014 [facility] [place] [facility] [address] [id number] [place] [address]- 5568 16 Feb, 2014 [facility] [place] [facility] [address] [id number] [place] [address]- 3608 16 Feb, 2014 [facility] [place] [facility] [address] [id number] [place] [address]- 7092 10 Feb, 2014 [facility] [place] [facility] [address] [id number] [place] [address]- 4442 10 Feb, 2014 [facility] [place] [facility] [address] [id number] [place] [address]- 0159 04 Feb, 2014 [facility] [place] [facility] [address] [id number] [place] [address] 2548 Feb, [facility] [place] [facility] [address] [id number] [place] [address]- 6481 Jan, [facility] [place] [facility] [address] [id number] [place] [address] 2546 Jan, [facility] [place] [facility] [address] [id number] [place] [address] 2549 Jan, [facility] [place] [facility] [address] [id number] [place] [address] 2541 Jan, [facility] [place] [facility] [address] [id number] [place] [address]- 5443 Dec, [facility] [place] [facility] [address] [id number] [place] [address]- 6220 Dec, [facility] [place] [facility] [address] [id number] [place] [address]- 5201 Dec, [facility] [place] [facility] [address] [id number] [place] [address]- 7128 Dec, [facility] [place] [facility] [address] [id number] [place] [address]- 6215 Dec, [facility] [place] [facility] [address] [id number] [place] [address]- 9468 Dec, [facility] [place] [facility] [address] [id number] [place] [address]- 8156 Dec, [facility] [place] [facility] [address] [id number] [place] [address]- 5614 Dec, [facility] [place] [facility] [address] [id number] [place] [address] 2540 Nov, [facility] [place] [facility] [address] [id number] [place] [address]- 2546 Nov, [facility] [place] [facility] [address] [id number] [place] [address]- 3630 Nov, [facility] [place] [facility] [address] [id number] [place] [address]- 7489 Nov, [facility] [place] [facility] [address] [id number] [place] [address]- 9376 Nov, [facility] [place] [facility] [address] [id number] [place] 5117 Oct, [facility] [place] [facility] [address] [id number] [place] [address]- 9186 Oct, [facility] [place] [facility] [address] [id number] [place] [address]- 8032 Sep, [facility] [place] [facility] [address] [id number] [place] [address]- 6268 Sep, [facility] [place] [facility] [address] [id number] [place] [address]- 9533 Sep, [facility] [place] [facility] [address] [id number] [place] [address]- 4487 Sep, [facility] [place] [facility] [address] [id number] [place] [address] Sep, [facility] [place] [facility] [address] [id number] [place] [address] Sep, [facility] [place] [facility] [address] [id number] [place] [address] Sep, [facility] [place] [facility] [address] [id number] [place] [address] Sep, [facility] [place] [facility] [address] [id number] [place] [address] Sep, [facility] [place] [facility] [address] [id number] [place] [address] Sep, [facility] [place] [facility] [address] [id number] [place] [address] Sep, [facility] [place] [facility] [address] [id number] [place] [address] Sep, [facility] [place] [facility] [address] [id number] [place] [address] Sep, [facility] [place] [facility] [address] [id number] [place] [address] Sep, [facility] [place] [facility] [address] [id number] [place] [address] July, [facility] [place] [facility] [address] [id number] [place] [address] July, [facility] [place] [facility] [address] [id number] [place] [address] July, [facility] [place] [facility] [address] [id number] [place] [address] July, [facility] [place] [facility] [address] [id number] [place] [address] July, [facility] [place] [facility] [address] [id number] [place] [address]- [address] July, [facility] [place] [facility] [address] [id number] [place] [address]- [address] July, [facility] [place] [facility] [address] [id number] [place] [address] July, [facility] [place] [facility] [address] [id number] [place] [address] Jun, [facility] [place] [facility] [address] [id number] [place] [address]- [address] Jun, [facility] [place] [facility] [address] [id number] [place] [address]- [address] Jun, [facility] [place] [facility] [address] [id number] [place] [address]- [address] Jun, [facility] [place] [facility] [address] [id number] [place] [address]- [address] Jun, [facility] [place] [facility] [address] [id number] [place] [address]- [address] Jun, [facility] [place] [facility] [address] [id number] [place] [address]- [address] Jun, [facility] [place] [facility] [address] [id number] [place] [address]- [address] Jun, [facility] [place] [facility] [address] [id number] [place] [address] 27 May, 2013 [facility] [place] [facility] [address] [id number] [place] [address] 27 May, 2013 [facility] [place] [facility] [address] [id number] [place] [address]- [address] May, [facility] [place] [facility] [address] [id number] [place] [address]- [address] May, [facility] [place] [facility] [address] [id number] [place] [address]- [address] 20 May, 2013 [facility] [place] [facility] [address] [id number] [place] [address] 20 May, 2013 [facility] [place] [facility] [address] [id number] [place] [address]- [address] 19 May, 2013 [facility] [place] [facility] [address] [id number] [place] [address] 19 May, 2013 [facility] [place] [facility] [address] [id number] [place] [address] 17 May, 2013 [facility] [place] [facility] [address] [id number] [place] [address] 17 May, 2013 [facility] [place] [facility] [address] [id number] [place] [address] 17 May, 2013 [facility] [place] [facility] [address] [id number] [place] [address] 17 May, 2013 [facility] [place] [facility] [address] [id number] [place] [address] May, [facility] [place] [facility] [address] [id number] [place] [address] 2589 May, [facility] [place] [facility] [address] [id number] [place] [address]707 May, [facility] [place] [facility] [address] [id number] [place] [address] 39[address] May, [facility] [place] [facility] [address] [id number] [place] [address] 5847 Apr, [facility] [place] [facility] [address] [id number] [place] [address] 9268 Apr, [facility] [place] [facility] [address] [id number] [place] [address] 4283 Mar, [facility] [place] [facility] [address] [id number] [place] [address] 2966 Mar, [facility] [place] [facility] [address] [id number] [place] [address] 3[address] Mar, [facility] [place] [facility] [address] [id number] [place] [address] 6062 Mar, [facility] [place] [facility] [address] [id number] [place] [address] 9996 Mar, [facility] [place] [facility] [address] [id number] [place] [address] 5323 Mar, [facility] [place] [facility] [address] [id number] [place] [address] 7355 Feb, [facility] [place] [facility] [address] [id number] [place] [address] 7118 Feb, [facility] [place] [facility] [address] [id number] [place] [address] Feb, [facility] [place] [facility] [address] [id number] [place] [address] Feb, [facility] [place] [facility] [address] [id number] [place] [address] 2543 Feb, [facility] [address] [id number] [place] [address] Feb, [facility] [place] [facility] [address] [id number] [place] [address]- 4673 Jan, [facility] [address] [id number] [place] [address] 8861 Jan, [facility] [place] [facility] [address] [id number] [place] [address]- 2832 Jan, [facility] [address] [id number] [place] [address] 0657 Jan, [facility] [place] [facility] [address] [id number] [place] [address] 5[address] Jan, [facility] [place] [facility] [address] [id number] [place] [address] 0065 Jan, [facility] [address] [id number] [place] [address] 5819 Jan, [facility] [place] [facility] [address] [id number] [place] [address] 7265 Dec, [facility] [address] [id number] [place] [address] 3104 Dec, [facility] [place] [facility] [address] [id number] [place] [address] 3941 Dec, [facility] [place] [facility] [address] [id number] [place] [address] 2543 Nov, [facility] [place] [facility] [address] [id number] [place] [address] 254 Oct, [facility] [place] [facility] [address] [id number] [place] [address] 2546 Sep, [facility] [place] [facility] [address] [id number] [place] [address]- 1755 Sep, [facility] [address] [id number] [place] [address] 6583 Sep, [facility] [place] [facility] [address] [id number] [place] [address] 8973 Sep, [facility] [place] [facility] [address] [id number] [place] [address] 8540 Sep, [facility] [place] [facility] [address] [id number] [place] [address] 8811 Sep, [facility] [address] [id number] [place] [address] 5734 Aug, [facility] [place] [facility] [address] [id number] [place] [address] 5875 Aug, [facility] [place] [facility] [address] [id number] [place] [address] 0978 July, [facility] [place] [facility] [address] [id number] [place] [address] 8126 July, [facility] [place] [facility] [address] [id number] [place] [address] 5412 July, [facility] [place] [facility] [address] [id number] [place] [address] 5536 July, [facility] [place] [facility] [address] [id number] [place] [address] 1342 Jun, [facility] [place] [facility] [address] [id number], [place] [address] May, [facility] [place] [facility] [address] [id number] [place] [address] 9970 May, [facility] [place] [facility] [address] [id number] [place] [address] 0758 May, [facility] [place] [facility] [address] [id number] [place] [address] 3660 Mar, [facility] [place] [facility] [address] [id number], [place] [address] 67[address] Mar, [facility] [address] [id number] [place] [address] 9006 Mar, [facility] [place] [facility] [address] [id number] [place] [address]- 1521 Feb, [facility] [place] [facility] [address] [id number] [place] [address]- 7086 Feb, [facility] [place] [facility] [address] [id number] [place] [address]- 1056 Feb, [facility] [place] [facility] [address] [id number] [place] [address]- 6825 Feb, [facility] [place] [facility] [address] [id number] [place] [address]- 1478 Feb, [facility] [address] [id number] [place] [address]- 4259 Feb, [facility] [place] [facility] [address] [id number] [place] [address]- 5690 Feb, [facility] [place] [facility] [address] [id number] [place] [address]- 6934 Feb, [facility] [place] [facility] [address] [id number] [place] [address]- 7036 Feb, [facility] [place] [facility] [address] [id number] [place] [address]- 2358 Feb, [facility] [place] [facility] [address] [id number] [place] [address]- 6088 Jan, [facility] [place] [facility] [address] [id number] [place] [address]- 9577 Jan, [facility] [place] [facility] [address] [id number] [place] [address]- 5637 Jan, [facility] [place] [facility] [address] [id number] [place] [address]- 3774 Jan, [facility] [place] [facility] [address] [id number] [place] [address]- 7972 Jan, [facility] [place] [facility] [address] [id number] [place] [address]- 6962 Jan, [facility] [place] [facility] [address] [id number] [place] [address]- 6266 Jan, [facility] [place] [facility] [address] [id number] [place] [address]- 2432 Jan, [facility] [place] [facility] [address] [id number] [place] [address]- 7050 Jan, [facility] [place] [facility] [address] [id number] [place] [address]- 2799 Jan, [facility] [place] [facility] [address] [id number] [place] [address]- 3551 Dec, [facility] [place] [facility] [address] [id number] [place] [address]- 5147 Dec, [facility] [place] [facility] [address] [id number] [place] [address]- 0024 Nov, [facility] [place] [facility] [address] [id number] [place] [address]- 0677 24 Nov, 2011 [facility] [place] [facility] [address] [id number] [place] [address]- 6713 05 Nov, 2011 [facility] [place] [facility] [address] [id number] [place] [address]- 4220 Oct, [facility] [place] [facility] [address] [id number] [place] [address]- 6745 Oct, [facility] [place] [facility] [address] [id number] [place] [address]- 5966 Oct, [facility] [place] [facility] [address] [id number] [place] [address]- 0906 Oct, [facility] [place] [facility] [address] [id number] [place] [address]- 2687 18 Aug, 2011 [facility] [place] [facility] [address] [id number] [place] [address]- 8221 15 Aug, 2011 [facility] [place] [facility] [address] [id number] [place] [address]- 5555 14 Aug, 2011 [facility] [place] [facility] [address] [id number] [place] [address]- 9063 07 Aug, 2011 [facility] [place] [facility] [address] [id number] [place] [address]- 3045 08 Jun, 2011 [facility] [place] [facility] [address] [id number] [place] [address]- 0450 May, [facility] [place] [facility] [address] [id number] [place] [address]- 2296 06 May, 2011 [facility] [place] [facility] [address] [id number] [place] [address]- 3917 20 Apr, 2011 [facility] [place] [facility] [address] [id number] [place] [address]- 3882 20 Apr, 2011 [facility] [place] [facility] [address] [id number] [place] [address]- 4636 15 Apr, 2011 [facility] [place] [facility] [address] [id number] [place] [address]- 6363 14 Apr, 2011 [facility] [place] [facility] [address] [id number] [place] [address]- 0895 Mar, [facility] [place] [facility] [address] [id number] [place] [address]- 2686 Mar, [facility] [place] [facility] [address] [id number] [place] [address]- 9189 Mar, [facility] [place] [facility] [address] [id number] [place] [address]- 1950 18 Mar, 2011 [facility] [place] [facility] [address] [id number] [place] [address]- 1806 Mar, [facility] [place] [facility] [address] [id number] [place] [address]- 0859 13 Mar, 2011 [facility] [address] [id number] [place] [address]- 6417 27 Feb, 2011 [facility] [place] [facility] [address] [id number] [place] [address]- 0881 23 Jan, 2011 [facility] [address] [id number] [place] [address]- 2940 15 Jan, 2011 [facility] [place] [facility] [address] [id number] [place] [address]- 7179 Jan, [facility] [address] [id number] [place] [address]- 6272 Jan, [facility] [place] [facility] [address] [id number] [place] [address]- 9683 Jan, [facility] [address] [id number] [place] [address]- 4461 Dec, [facility] [address] [id number] [place] [address]- 3036 May, [facility] [place] [facility] [address] [id number] [place] [address]- 5683 14 Apr, 2010 [facility] [address] [id number] [place] [address]- 8078 10 Mar, 2010 [facility] [address] [id number] [place] [address]- 1200 Feb, [facility] [place] [facility] [address] [id number] [place] [address]- 5815 23 Feb, 2010 [facility] [place] [facility] [address] [id number] [place] [address]- 6458 14 Feb, 2010 [facility] [place] [facility] [address] [id number] [place] [address]- 6983 13 Feb, 2010 [facility] [place] [facility] [address] [id number] [id number] [address] Dec, [facility] [address] [facility] [id number] [place] [address]- 2273 Dec, IMMUNIZATIONS No Known Immunizations SOCIAL HISTORY Never Assessed REASON FOR VISIT Right wrist mass PLAN OF CARE VITAL SIGNS MEDICATIONS Unknown [...]
--- OUTSIDE RECORDS SUMMARY | 2017-12-04 09:54 | XMS REPORT ---
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 Problem Coronary atherosclerosis of unspecified type of vessel, [place] or graft 414.00 Active Problem Family history of malignant neoplasm of gastrointestinal tract V16.0 Active Assessment Encounter for dental examination Z01.20 Active Assessment Dental caries K02.9 Active Problem 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 Nov 12, 2014 Active Problem Irritable bowel syndrome 564.1 Active Problem Depressive disorder, not elsewhere classified 311 Active Problem Esophageal reflux 530.81 Active Problem Unspecified backache 724.5 Active Problem Unspecified essential hypertension 401.9 Active Problem Other and unspecified hyperlipidemia 272.4 Active Medications No Known Medications Procedures Procedure Coding System Code Date EXTRAC ERUPTED TOOTH/EXPOSED ROOT CPT-4 D7140 Mar 05, 2015 EXTRAC ERUPTED TOOTH/EXPOSED ROOT CPT-4 D7140 Mar 05, 2015 EXTRAC ERUPTED TOOTH/EXPOSED ROOT CPT-4 D7140 Mar 05, 2015 EXTRAC ERUPTED TOOTH/EXPOSED ROOT CPT-4 D7140 Mar 05, 2015 EXTRAC ERUPTED TOOTH/EXPOSED ROOT CPT-4 D7140 Mar 05, 2015 EXTRAC ERUPTED TOOTH/EXPOSED ROOT CPT-4 D7140 Mar 05, 2015 EXTRAC ERUPTED TOOTH/EXPOSED ROOT CPT-4 D7140 Mar 05, 2015 EXTRAC ERUPTED TOOTH/EXPOSED ROOT CPT-4 D7140 Mar 05, 2015 Vital Signs Date/Time: Mar 05, 2015 Blood Pressure Diastolic 78 mmHg Blood Pressure Systolic 92 mmHg Height 67 in Results No Known Results Summary Purpose eClinicalWorks Submission
--- OUTSIDE RECORDS SUMMARY | 2017-12-04 09:54 | XMS REPORT ---
Author Author JYOTSNA EMERY [facility] Address [address] [place] [address] Care Team Providers Care Photo Graphics Librarian Name Role Phone JYOTSNA EMERY Unavailable PROBLEMS Type Condition ICD9-CM Code BCE50-EO Code Onset Dates Condition Status SNOMED Code Problem Diabetes E11.9 Active 950772897 Problem Type 2 diabetes mellitus with hyperglycemia E11.65 Active 46533280 Problem Essential hypertension I10 Active 12259212 Problem Diabetic polyneuropathy associated with diabetes mellitus due to underlying condition E08.42 Active 28176591 Problem Rotator cuff syndrome of right shoulder M75.101 Active [id number] Problem Slow transit constipation K59.01 Active 84191884 Problem care home current use of insulin Z79.4 Active 019473835 Problem Constipation, unspecified constipation type K59.00 Active 39451941 Problem Irritable bowel syndrome, unspecified type K58.9 Active 24052991 Problem Barretts esophagus without dysplasia K22.70 Active 287676734 Problem 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 Nov, Active 1189879 Problem Herniation of intervertebral disc at C5-C6 level M50.222 Active 030653347 Problem Gastroparesis K31.84 Active 735745395 Problem Bipolar disorder, current episode depressed, moderate F31.32 Active 053998625 Problem Gastro-esophageal reflux disease without esophagitis K21.9 Active 752637499 Problem Panic disorder with agoraphobia F40.01 Active 57533237 Problem Type 2 diabetes mellitus with diabetic autonomic (poly)neuropathy E11.43 Active 297498389 Problem BRITTANI (generalized anxiety disorder) F41.1 Active 15500891 Problem Obstructive sleep apnea syndrome G47.33 Active 63951105 ALLERGIES No Information ENCOUNTERS Encounter Location Date Diagnosis [facility] [address] [address] July, [facility] [address] [address]- 3905 Jun, Type 2 diabetes mellitus with diabetic autonomic (poly) neuropathy E11.43 and Type 2 diabetes mellitus with hyperglycemia E11.65 [place] [address] 67[address]- 2910 May, [place] [address] 36361- 7857 May, Bipolar disorder, current episode depressed, moderate F31.32 [facility] [address] [address] May, [place] [address] 92267- 4716 May, Diabetic polyneuropathy associated with diabetes mellitus due to underlying condition E08.42 [place] [address] 53958- 6076 Apr, [place] [address] 70400- 7923 Feb, Ganglion cyst of dorsum of right wrist M67.431 [place] [address] 96058- 4228 Jan, Other cyst of bone, right forearm M85.631 [place] [address] 93136- 3037 Jan, [place] [address] 78740- 0745 Jan, Diabetes E11.9 and Right forearm pain M79.631 [place] [address] 95364- 1388 Dec, Encounter for immunization Z23 [place] [address] 36822- 7614 Nov, [place] [address] 01061- 0004 Nov, Type 2 diabetes mellitus with hyperglycemia E11.65 [facility] [address] [place] [address] 41078- 8868 Nov, Severe pain of right shoulder M25.511 [facility] [address] [place] [id number] [place] [address] 95040- 3476 Oct, Diabetes E11.9 [facility] [address] [place] [id number] [place] [address] 32644- 3071 Oct, Diabetes E11.9 [facility] [address] [place] [id number] [place] [address] 53855- 9220 Oct, [facility] [address] [place] [id number] [place] [address] 13426- 2030 Oct, [facility] [address] [place] [id number] [place] [address] 54688- 6289 Oct, Rotator cuff syndrome of right shoulder M75.101 [facility] [address] [place] [id number] [place] [address] 55408- 3093 Oct, Diabetes E11.9 [facility] [address] [place] [id number] [place] [address] 98065- 2085 Sep, Type 2 diabetes mellitus with hyperglycemia E11.65 ; Obstructive sleep apnea syndrome G47.33 and Constipation, unspecified constipation type K59.00 [facility] [address] [place] [id number] [place] [address] 90449- 6852 Aug, [facility] [address] [place] [id number] [place] [address] 88686- 3864 Aug, [facility] [address] [place] [address] [id number] [place] [address] 58310- 8653 Aug, Type 2 diabetes mellitus with diabetic autonomic (poly) neuropathy E11.43 [facility] [address] [place] [id number] [place] [address] 50903- 8601 July, Type 2 diabetes mellitus with hyperglycemia E11.65 [facility] [address] [place] [id number] [place] [address] 58483- 3682 Jun, Slow transit constipation K59.01 [facility] [address] [place] [id number] [place] [address] 29893- 2682 May, [facility] [address] 68364- 1143 May, Diabetes E11.9 [place] [address] 56822- 7725 May, [facility] 18015 -0210 Apr, [place] [address] 92677- 1590 Apr, Gastroenteritis K52.9 [facility] [place] [address] 06145 -3713 Apr, Abdominal pain, unspecified location R10.9 ; Gastroenteritis K52.9 ; Type 2 diabetes mellitus with hyperglycemia E11.65 and care home current use of insulin Z79.4 [place] [address] [place] [id number] [place] [address] 97670- 4547 Apr, [place] [address] 01076- 7225 Apr, [place] [address] [place] [id number] [place] [address] 69405- 6320 Apr, Diabetes E11.9 ; Gastroparesis K31.84 ; Generalized abdominal pain R10.84 ; Essential hypertension I10 ; Bronchitis J40 and Other fatigue R53.83 [facility] [address] [place] [id number] [place] [address] 91995 -6568 Mar, [facility] [address] 71624 -9846 Mar, [facility] [place] [address] [place] [id number] [place] [address] 68585 -7310 Mar, Laceration of scalp without foreign body, initial encounter S01.01XA ; Laceration of face, initial encounter S01.81XA and Encounter for immunization Z23 [place] [address] [place] [id number] [place] [address] 43888- 2185 Mar, Type 2 diabetes mellitus with diabetic autonomic (poly) neuropathy E11.43 [place] [address] [place] [id number] [place] [address] 27068- 0632 Feb, [place] [address] 99972- 9000 Feb, Internal hemorrhoids K64.8 and Obstructive sleep apnea syndrome G47.[address] 07478- 7145 Feb, SI (sacroiliac) joint dysfunction M53.3 [place] [id number] [place] [address] 05490- 4723 Jan, [place] [address] 40813- 0865 Dec, Gastroparesis K31.[address] 69661- 8742 Dec, [place] [address] [place] [id number] [place] [address] 83323- 1547 Dec, Right hip pain M25.551 ; Nose congested R09.81 and Encounter for immunization Z23 [place] [address] [place] [id number] [place] [address] 44659- 9082 Nov, Diabetes E11.9 ; Gastroparesis K31.84 ; Type 2 diabetes mellitus with diabetic autonomic (poly)neuropathy E11.43 and Obstructive sleep apnea syndrome G47.33 [place] [address] 74961- 4814 Oct, [place] [address] [place] [id number] [place] [address] 95790- 9553 Aug, [place] [id number] [place] [address] 32855- 5435 July, Gastro-esophageal reflux disease without esophagitis K21.9 [facility] [address] 07473- 8605 July, [facility] [address] 95023- 3086 July, Diabetes E11.9 [facility] [address] 49000- 7406 July, Diabetes E11.9 ; Obstructive sleep apnea syndrome G47.33 and Neuropathy G62.9 [place] [address] 61675- 0499 July, Bipolar disorder, current episode depressed, moderate F31.32 ; BRITTANI (generalized anxiety disorder) F41.1 and Panic disorder with agoraphobia F40.01 [place] [address] 77191- 9404 Jun, [facility] [address] 58961- 2310 Jun, [place] [address] 36963- 5818 Jun, [facility] [address] [place] [id number] [place] [address] 38161- 6194 Jun, [facility] [address] [place] [id number] [place] [address] [id number] May, Encounter for dental examination and cleaning without abnormal findings Z01.20 [facility] [address] [place] [id number] [place] [address] 60610- 8533 Apr, [facility] [address] 90750- 4310 Apr, [facility] [address] [place] [id number] [place] [address] 24765- 1769 Apr, Bipolar disorder, current episode depressed, moderate F31.32 ; BRITTANI (generalized anxiety disorder) F41.1 and Panic disorder with agoraphobia F40.01 [facility] [address] [place] [id number] [place] [address] 90229- 3111 04 Apr, 2015 Hyperlipidemia, unspecified E78.5 [facility] [address] [place] [address] [id number] Apr, Dental caries K02.9 [facility] [address] [id number] Feb, Dental caries K02.9 and Encounter for dental examination Z01.20 [place] [address] 04389- 0002 Feb, [place] [address] 42418- 0491 Feb, Diabetes E11.9 ; Insulin long-term use Z79.4 ; Diabetic polyneuropathy associated with diabetes mellitus due to underlying condition E08.42 and Barretts esophagus with high grade dysplasia K22.711 [place] [address] [place] [id number] [place] [address] 28944- 6403 Feb, [place] [address] 40182- 8861 Jan, Pain in right hip M25.551 and Other chronic pain G89.29 [place] [address] [place] [id number] [place] [address] 15166- 0615 Jan, Impingement syndrome, shoulder, left M75.42 [place] [address] [place] [id number] [place] [address] 94187- 0860 Jan, Bipolar disorder, current episode depressed, moderate F31.32 ; Generalized anxiety disorder F41.1 and Agoraphobia with panic disorder F40.01 [place] [address] [place] [id number] [place] [address] 84564- 9637 Jan, [place] [address] 91262- 2712 Dec, [facility] [address] [place] [address] 62832- 2294 Dec, [facility] [address] [place] [id number] [place] [address] 49495- 2129 Dec, Right hip pain M25.551 and Left shoulder pain M25.512 [facility] [address] [place] [id number] [place] [address] 322730- 7510 Dec, Bipolar 1 disorder, depressed, moderate F31.32 ; BRITTANI ( generalized anxiety disorder) F41.1 and Panic disorder with agoraphobia F40.01 [facility] [address] [place] [id number] [place] [address] 159965- 5561 Dec, [facility] [address] [place] [id number] [place] [address] 69208- 9975 Dec, [facility] [address] [place] [id number] [place] [address] 04289- 9098 Nov, [facility] [address] [place] [id number] [place] [address] 52223- 4134 18 Nov, 2014 [facility] [address] [place] [id number] [place] [address] 61514- 0842 Nov, [facility] [address] [place] [id number] [place] [address] 96523- 8443 Nov, Diabetes 250.00 [facility] [address] [place] [id number] [place] [address] 74660- 3008 Oct, [facility] [address] [place] [id number] [place] [address] 30021- 3421 Oct, [facility] [address] [place] [id number] [place] [address] [id number]- 8061 Oct, [facility] [address] [place] [address] 96473- 1574 Oct, [facility] [address] [place] [id number] [place] [address] 30286- 8571 Oct, [facility] [address], [place] [address]- 0380 Oct, [facility] [address] [place] [id number] [place] [address] 303982- 8852 Oct, Diabetes 250.00 ; Insomnia 780.52 and Forgetfulness 780.99 [facility] [address] [place] [id number] [place] [address] 09475- 0970 Oct, Depressive disorder, not elsewhere classified 311 [facility] [address] [place] [id number] [place] [address] 72961- 0339 Sep, [facility] [address] [place] [id number] [place] [address] 52720- 9771 Sep, [facility] [address] [place] [id number] [place] [address] 18237- 8367 Sep, [facility] [address] [place] [id number] [place] [address] 26822- 1507 Sep, [facility] [address] [place] [address] 78479- 4990 Sep, [facility] [address] [place] [id number] [place] [address] 70674- 2940 Sep, [facility] [address], [place] [address]- 4420 Sep, [facility] [address] [place] [address] 84430- 1861 Aug, [facility] [address] [id number] Aug, Dental examination V72.2 [facility] [address] [place] [id number] [place] [address] 88773- 5418 Aug, [facility] [address], [place] [address]- 6568 Aug, [facility] [address] [place] [id number] [place] [address] 87452- 3835 July, [facility] [address] [id number] [place] [address]- 9411 July, [facility] [place] [facility] [address] [id number] [place] [address]- 3728 July, [facility] [place] [facility] [address] [facility] [id number] [place] [address]- 9526 July, [facility] [place] [facility] [address] [id number] [place] [address]- 0649 Jun, [facility] [place] [facility] [address] [id number] [place] [address]- 5935 Jun, [facility] [place] [facility] [address] [id number] [place] [address]- 3996 May, [facility] [place] [facility] [address] [facility] [id number] [place] [address]- 4179 May, [facility] [place] [facility] [address] [facility] [id number] [place] [address]- 6914 May, [facility] [place] [facility] [address] [id number] [place] [address]- 2766 May, [facility] [place] [facility] [address] [facility] [id number] [place] [address]- 4012 May, [facility] [place] [facility] [address] [id number] [place] [address]- 1531 May, [facility] [place] [facility] [address] [facility] [id number] [address]- 7795 16 May, 2014 [facility] [place] [facility] [address] [id number] [place] [address]- 3344 May, [facility] [place] [facility] [address] [facility] [id number] [place] [address]- 1416 Apr, [facility] [place] [facility] [address] [facility] [id number] [place] [address]- 6369 Apr, [facility] [place] [facility] [address] [id number] [place] [address]- 7337 Apr, [facility] [place] [facility] [address] [id number] [place] [address]- 2746 Apr, [facility] [place] [facility] [address] [id number] [place] [address]- 8486 Apr, [facility] [place] [facility] [address] [id number] [place] [address]- 9433 Apr, [facility] [place] [facility] [address] [id number] [place] [address]- 4485 Mar, [facility] [place] [facility] [address] [id number] [place] [address]- 1160 Mar, [facility] [place] [facility] [address] [id number] [place] [address]- 2601 Mar, [facility] [place] [facility] [address] [id number] [place] [address]- 9894 Mar, [facility] [place] [facility] [address] [id number] [place] [address]- 1983 Mar, [facility] [place] [facility] [address] [id number] [place] [address]- 6148 Mar, [facility] [place] [facility] [address] [id number] [place] [address]- 0835 Mar, [facility] [place] [facility] [address] [id number] [place] [address]- 5621 Mar, [facility] [place] [facility] [address] [id number] [place] [address]- 6667 Mar, [facility] [place] [facility] [address] [id number] [place] [address]- 6362 Mar, [facility] [place] [facility] [address] [id number] [place] [address]- 2655 Mar, [facility] [place] [facility] [address] [id number] [place] [address]- 8056 Mar, [facility] [place] [facility] [address] [id number] [place] [address]- 2576 Mar, [facility] [place] [facility] [address] [id number] [place] 4246 Mar, [facility] [place] [facility] [address] [id number] [place] [address]- 7068 Feb, [facility] [place] [facility] [address] [id number] [place] [address]- 3395 30 Feb, 2014 [facility] [place] [facility] [address] [id number] [place] [address]- 3844 Feb, [facility] [place] [facility] [address] [id number] [place] [address]- 1633 Feb, [facility] [place] [facility] [address] [id number] [place] [address]- 7991 Feb, [facility] [place] [facility] [address] [id number] [place] [address]- 2343 Feb, [facility] [place] [facility] [address] [id number] [place] [address]- 3648 16 Feb, 2014 [facility] [place] [facility] [address] [id number] [place] [address]- 6379 16 Feb, 2014 [facility] [place] [facility] [address] [id number] [place] [address]- 8280 16 Feb, 2014 [facility] [place] [facility] [address] [id number] [place] [address]- 8216 16 Feb, 2014 [facility] [place] [facility] [address] [id number] [place] [address]- 5550 10 Feb, 2014 [facility] [place] [facility] [address] [id number] [place] [address]- 7551 10 Feb, 2014 [facility] [place] [facility] [address] [id number] [place] [address]- 7704 04 Feb, 2014 [facility] [place] [facility] [address] [id number] [place] [address] 2544 Feb, [facility] [place] [facility] [address] [id number] [place] [address]- 2159 Jan, [facility] [place] [facility] [address] [id number] [place] [address] 2546 Jan, [facility] [place] [facility] [address] [id number] [place] [address] 2548 Jan, [facility] [place] [facility] [address] [id number] [place] [address] 2541 Jan, [facility] [place] [facility] [address] [id number] [place] [address]- 3192 Dec, [facility] [place] [facility] [address] [id number] [place] [address]- 8526 Dec, [facility] [place] [facility] [address] [id number] [place] [address]- 5672 Dec, [facility] [place] [facility] [address] [id number] [place] [address]- 9626 Dec, [facility] [place] [facility] [address] [id number] [place] [address]- 2966 Dec, [facility] [place] [facility] [address] [id number] [place] [address]- 1815 Dec, [facility] [place] [facility] [address] [id number] [place] [address]- 7503 Dec, [facility] [place] [facility] [address] [id number] [place] [address]- 9667 Dec, [facility] [place] [facility] [address] [id number] [place] [address] 2542 Nov, [facility] [place] [facility] [address] [id number] [place] [address]- 2546 Nov, [facility] [place] [facility] [address] [id number] [place] [address]- 5064 Nov, [facility] [place] [facility] [address] [id number] [place] [address]- 7753 Nov, [facility] [place] [facility] [address] [id number] [place] [address]- 8342 Nov, [facility] [place] [facility] [address] [id number] [place] 2229 Oct, [facility] [place] [facility] [address] [id number] [place] [address]- 2215 Oct, [facility] [place] [facility] [address] [id number] [place] [address]- 4640 Sep, [facility] [place] [facility] [address] [id number] [place] [address]- 7801 Sep, [facility] [place] [facility] [address] [id number] [place] [address]- 6045 Sep, [facility] [place] [facility] [address] [id number] [place] [address] Sep, [facility] [place] [facility] [address] [id number] [place] [address] Sep, [facility] [place] [facility] [address] [id number] [place] [address] Sep, [facility] [place] [facility] [address] [id number] [place] [address] Sep, [facility] [place] [facility] [address] [id number] [place] [address] Sep, [facility] [place] [facility] [address] [id number] [place] [address] Sep, [facility] [place] [facility] [address] [id number] [place] [address] Sep, [facility] [place] [facility] [address] [id number] [place] [address] Sep, [facility] [place] [facility] [address] [id number] [place] [address] Sep, [facility] [place] [facility] [address] [id number] [place] [address] Sep, [facility] [place] [facility] [address] [id number] [place] Sep, [facility] [place] [facility] [address] [id number] [place] [address] July, [facility] [place] [facility] [address] [id number] [place] [address] July, [facility] [place] [facility] [address] [id number] [place] [address] July, [facility] [place] [facility] [address] [id number] [place] [address] July, [facility] [place] [facility] [address] [id number] [place] [address] July, [facility] [place] [facility] [address] [id number] [place] [address] July, [facility] [place] [facility] [address] [id number] [place] [address] July, [facility] [place] [facility] [address] [id number] [place] [address] July, [facility] [place] [facility] [address] [id number] [place] [address] Jun, [facility] [place] [facility] [address] [id number] [place] [address] Jun, [facility] [place] [facility] [address] [id number] [place] [address] Jun, [facility] [place] [facility] [address] [id number] [place] [address] Jun, [facility] [place] [facility] [address] [id number] [place] [address] Jun, [facility] [place] [facility] [address] [id number] [place] [address] Jun, [facility] [place] [facility] [address] [id number] [place] [address] Jun, [facility] [place] [facility] [address] [id number] [place] [address] Jun, [facility] [place] [facility] [address] [id number] [place] [address] 27 May, 2013 [facility] [place] [facility] [address] [id number] [place] [address] 27 May, 2013 [facility] [place] [facility] [address] [id number] [place] [address] May, [facility] [place] [facility] [address] [id number] [place] [address] 6[address] May, [facility] [place] [facility] [address] [id number] [place] [address] 3583 20 May, 2013 [facility] [place] [facility] [address] [id number] [place] [address] 38[address] 20 May, 2013 [facility] [place] [facility] [address] [id number] [place] [address] 46[address] 19 May, 2013 [facility] [place] [facility] [address] [id number] [place] [address] 19 May, 2013 [facility] [place] [facility] [address] [id number] [place] [address] 1337 17 May, 2013 [facility] [place] [facility] [address] [id number] [place] [address] 8834 17 May, 2013 [facility] [place] [facility] [address] [id number] [place] [address] 5[address] 17 May, 2013 [facility] [place] [facility] [address] [id number] [place] [address] 6983 17 May, 2013 [facility] [place] [facility] [address] [id number] [place] [address] 9386 May, [facility] [place] [facility] [address] [id number] [place] [address] 8734 May, [facility] [place] [facility] [address] [id number] [place] [address] 1032 May, [facility] [place] [facility] [address] [id number] [place] [address] 0198 May, [facility] [place] [facility] [address] [id number] [place] [address] 3250 Apr, [facility] [place] [facility] [address] [id number] [place] [address] 2949 Apr, [facility] [place] [facility] [address] [id number] [place] [address] 3738 Mar, [facility] [place] [facility] [address] [id number] [place] [address] 4486 Mar, [facility] [place] [facility] [address] [id number] [place] [address] 0522 Mar, [facility] [place] [facility] [address] [id number] [place] [address] 3809 Mar, [facility] [place] [facility] [address] [id number] [place] [address] 7044 Mar, [facility] [place] [facility] [address] [id number] [place] [address] 0345 Mar, [facility] [place] [facility] [address] [id number] [place] [address] 6352 Feb, [facility] [place] [facility] [address] [id number] [place] [address] 5164 Feb, [facility] [place] [facility] [address] [id number] [place] [address] Feb, [facility] [place] [facility] [address] [id number] [place] [address] Feb, [facility] [place] [facility] [address] [id number] [place] [address]- 2545 Feb, [facility] [address] [id number] [place] [address] 6281 Feb, [facility] [place] [facility] [address] [id number] [place] [address] 7339 Jan, [facility] [address] [id number] [place] [address] 6891 Jan, [facility] [place] [facility] [address] [id number] [place] [address] 7543 Jan, [facility] [address] [id number] [place] [address] 9427 Jan, [facility] [place] [facility] [address] [id number] [place] [address] 5368 Jan, [facility] [place] [facility] [address] [id number] [place] [address] 8163 Jan, [facility] [address] [id number] [place] [address] 8920 Jan, [facility] [place] [facility] [address] [id number] [place] [address] 4170 Dec, [facility] [address] [id number] [place] [address] 4365 Dec, [facility] [place] [facility] [address] [id number] [place] [address] 0784 Dec, [facility] [place] [facility] [address] [id number] [place] [address] 2542 Nov, [facility] [place] [facility] [address] [id number] [place] [address] 2549 Oct, [facility] [place] [facility] [address] [id number] [place] [address] 2546 Sep, [facility] [place] [facility] [address] [id number] [place] [address]- 7468 Sep, [facility] [address] [id number] [place] [address] 9456 Sep, [facility] [place] [facility] [address] [id number] [place] [address] 4002 Sep, [facility] [place] [facility] [address] [id number] [place] [address]- 1526 Sep, [facility] [place] [facility] [address] [id number] [place] [address]- 5759 Sep, [facility] [address] [id number] [place] [address] 6053 Aug, [facility] [place] [facility] [address] [id number] [place] [address] 1188 Aug, [facility] [place] [facility] [address] [id number] [place] [address] 3066 July, [facility] [place] [facility] [address] [id number] [place] [address] 1803 July, [facility] [place] [facility] [address] [id number] [place] [address] 9814 July, [facility] [place] [facility] [address] [id number] [place] [address] 9613 July, [facility] [place] [facility] [address] [id number] [place] [address] 5243 Jun, [facility] [place] [facility] [address] [id number] [address]116 May, [facility] [place] [facility] [address] [id number] [place] [address] 3704 May, [facility] [place] [facility] [address] [id number] [place] [address] 5203 May, [facility] [place] [facility] [address] [id number] [place] [address] 1379 Mar, [facility] [place] [facility] [address] [id number], [place] [address] 9312 Mar, [facility] [address] [id number] [place] [address] 9322 Mar, [facility] [place] [facility] [address] [id number] [place] [address] 3121 Feb, [facility] [place] [facility] [address] [id number] [place] [address] 6136 Feb, [facility] [place] [facility] [address] [id number] [place] [address] 4645 Feb, [facility] [place] [facility] [address] [id number] [place] [address] 6243 Feb, [facility] [place] [facility] [address] [id number] [place] [address] 7301 Feb, [facility] [address] [id number] [place] [address] 3879 Feb, [facility] [place] [facility] [address] [id number] [place] [address]- 2954 Feb, [facility] [place] [facility] [address] [id number] [place] [address]- 3556 Feb, [facility] [place] [facility] [address] [id number] [place] [address] 3478 Feb, [facility] [place] [facility] [address] [id number] [place] [address]- 7769 Feb, [facility] [place] [facility] [address] [id number] [place] [address]- 8778 Jan, [facility] [place] [facility] [address] [id number] [place] [address]- 0632 Jan, [facility] [place] [facility] [address] [id number] [place] [address]- 3022 Jan, [facility] [place] [facility] [address] [id number] [place] [address]- 1402 Jan, [facility] [place] [facility] [address] [id number] [place] [address]- 6073 Jan, [facility] [place] [facility] [address] [id number] [place] [address]- 6888 Jan, [facility] [place] [facility] [address] [id number] [place] [address]- 7796 Jan, [facility] [place] [facility] [address] [id number] [place] [address]- 3885 Jan, [facility] [place] [facility] [address] [id number] [place] [address]- 9649 Jan, [facility] [place] [facility] [address] [id number] [place] [address]- 5007 Jan, [facility] [place] [facility] [address] [id number] [place] [address]- 0371 Dec, [facility] [place] [facility] [address] [id number] [place] [address]- 1361 Dec, [facility] [place] [facility] [address] [id number] [place] [address]- 1647 Nov, [facility] [place] [facility] [address] [id number] [place] [address]- 2895 24 Nov, 2011 [facility] [place] [facility] [address] [id number] [place] [address]- 1544 05 Nov, 2011 [facility] [place] [facility] [address] [id number] [place] [address]- 1643 Oct, [facility] [place] [facility] [address] [id number] [place] [address]- 1748 Oct, [facility] [place] [facility] [address] [id number] [place] [address]- 3846 Oct, [facility] [place] [facility] [address] [id number] [place] [address]- 0476 Oct, [facility] [place] [facility] [address] [id number] [place] [address]- 9832 18 Aug, 2011 [facility] [place] [facility] [address] [id number] [place] [address]- 7212 15 Aug, 2011 [facility] [place] [facility] [address] [id number] [place] [address]- 3022 14 Aug, 2011 [facility] [place] [facility] [address] [id number] [place] [address]- 8181 07 Aug, 2011 [facility] [place] [facility] [address] [id number] [place] [address]- 1550 08 Jun, 2011 [facility] [place] [facility] [address] [id number] [place] [address]- 8375 May, [facility] [place] [facility] [address] [id number] [place] [address]- 2326 06 May, 2011 [facility] [place] [facility] [address] [id number] [place] [address]- 3075 20 Apr, 2011 [facility] [place] [facility] [address] [id number] [place] [address]- 9095 20 Apr, 2011 [facility] [place] [facility] [address] [id number] [place] [address]- 1371 15 Apr, 2011 [facility] [place] [facility] [address] [id number] [place] [address]- 7732 14 Apr, 2011 [facility] [place] [facility] [address] [id number] [place] [address]- 1448 Mar, [facility] [place] [facility] [address] [id number] [place] [address]- 0254 Mar, [facility] [place] [facility] [address] [id number] [place] [address]- 7225 Mar, [facility] [place] [facility] [address] [id number] [place] [address]- 9121 18 Mar, 2011 [facility] [place] [facility] [address] [id number] [place] [address]- 4176 Mar, [facility] [place] [facility] [address] [id number] [place] [address]- 0561 13 Mar, 2011 [facility] [address] [id number] [place] [address]- 4097 27 Feb, 2011 [facility] [place] [facility] [address] [id number] [place] [address]- 5655 23 Jan, 2011 [facility] [address] [id number] [place] [address]- 8025 15 Jan, 2011 [facility] [place] [facility] [address] [id number] [place] [address]- 4983 Jan, [facility] [address] [id number] [place] [address]- 4438 Jan, [facility] [place] [facility] [address] [id number] [place] [address]- 9370 Jan, [facility] [address] [id number] [place] [address]- 9489 Dec, [facility] [address] [id number] [place] [address]- 2836 May, [facility] [place] [facility] [address] [id number] [place] [address]- 2245 14 Apr, 2010 [facility] [address] [id number] [place] [address]- 9431 10 Mar, 2010 [facility] [address] [id number] [place] [address]- 9868 Feb, [facility] [place] [facility] [address] [id number] [place] [address]- 4774 23 Feb, 2010 [facility] [place] [facility] [address] [id number] [place] [address]- 5891 14 Feb, 2010 [facility] [place] [facility] [address] [id number] [place] [address]- 1878 13 Feb, 2010 [facility] [place] [facility] [address] [id number] [place] [address]- 3787 11 Dec, 2009 [facility] [address] [facility] [place] [id number] [place] [address]- 6729 11 Dec, 2009 IMMUNIZATIONS Vaccine Route Administration Date Status FLUARIX QUAD (3 AND UP) 2016 IM Intramuscular Jan 05, 2017 Administered PPSV23 (PNEUMOVAX) IM Intramuscular Jan 05, 2017 Administered SOCIAL HISTORY Never Assessed REASON FOR VISIT Immunization(s) PLAN OF CARE VITAL SIGNS MEDICATIONS Unknown Medications RESULTS No Results PROCEDURES Procedure Date Ordered Result Body Site PPSV23 (PNEUMOVAX) Jan 05, 2017 FLUARIX QUAD (3 AND UP) 2016Jan 05, 2017 IMMUNIZATION ADMIN, EACH ADD (please include units) Jan 05, 2017 SINGLE IMMUNIZATION ADMIN Jan 05, 2017 INSTRUCTIONS MEDICATIONS ADMINISTERED No Known Medications [...]
--- OUTSIDE RECORDS SUMMARY | 2017-12-04 09:54 | XMS REPORT ---
Author Author JYOTSNA EMERY Organization [facility] Address [address] [place] [address] Care Team Providers Care Electric Organ Assembler Name Role Phone JYOTSNA EMERY Unavailable PROBLEMS Type Condition ICD9-CM Code RDW85-HP Code Onset Dates Condition Status SNOMED Code Problem Diabetes E11.9 Active 615971100 Problem Type 2 diabetes mellitus with hyperglycemia E11.65 Active 52706397 Problem Essential hypertension I10 Active 86300063 Problem Diabetic polyneuropathy associated with diabetes mellitus due to underlying condition E08.42 Active 93664376 Problem Rotator cuff syndrome of right shoulder M75.101 Active 811427485898169 Problem Slow transit constipation K59.01 Active 78176607 Problem correction current use of insulin Z79.4 Active 828613560 Problem Constipation, unspecified constipation type K59.00 Active 62726697 Problem Irritable bowel syndrome, unspecified type K58.9 Active 99296097 Problem Barretts esophagus without dysplasia K22.70 Active 825711004 Problem 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 01 Nov, 2014 Active 5444921 Problem Herniation of intervertebral disc at C5-C6 level M50.222 Active 757340426 Problem Gastroparesis K31.84 Active 834123683 Problem Bipolar disorder, current episode depressed, moderate F31.32 Active 551694654 Problem Gastro-esophageal reflux disease without esophagitis K21.9 Active 441302425 Problem Panic disorder with agoraphobia F40.01 Active 25563231 Problem Type 2 diabetes mellitus with diabetic autonomic (poly)neuropathy E11.43 Active 791299744 Problem BRITTANI (generalized anxiety disorder) F41.1 Active 56180971 Problem Obstructive sleep apnea syndrome G47.33 Active 33495417 ALLERGIES Substance Reaction Event Type Date Status Codeine Sulfate hives Drug Allergy Jan, Active Advil rash Drug Allergy Jan, Active All nsaids Unknown Non Drug Allergy Jan, Active ENCOUNTERS Encounter Location Date Diagnosis [place] [id number] [place] [address] 40631- 6878 July, [place] [address] 39391- 4073 Jun, Type 2 diabetes mellitus with diabetic autonomic (poly) neuropathy E11.43 and Type 2 diabetes mellitus with hyperglycemia E11.65 [place] [address] 25105- 1917 May, [place] [address] 26369- 1799 May, Bipolar disorder, current episode depressed, moderate F31.32 [facility] [address] 56233 -3464 May, [place] [address] 61411- 1601 May, Diabetic polyneuropathy associated with diabetes mellitus due to underlying condition E08.42 [place] [id number] [place] [address] 36197- 3641 Apr, [place] [address] 40822- 8838 Feb, Ganglion cyst of dorsum of right wrist M67.431 [place] [address] 58429- 6049 Jan, Other cyst of bone, right forearm M85.631 [place] [id number] [place] [address] 79439- 3174 Jan, [place] [address] 11622- 3163 Jan, Diabetes E11.9 and Right forearm pain M79.631 [place] [id number] [place] [address] 75338- 8349 Dec, Encounter for immunization Z23 [place] [address] 80466- 8742 Nov, [facility] [id number] [place] [address] 32173- 7735 Nov, Type 2 diabetes mellitus with hyperglycemia E11.65 [facility] [id number] [place] [address] 82626- 7093 Nov, Severe pain of right shoulder M25.511 [facility] [id number] [place] [address] 72964- 1702 Oct, Diabetes E11.9 [facility] [id number] [place] [address] 85431- 9518 Oct, Diabetes E11.9 [facility] [id number] [place] [address] 70931- 2974 Oct, [facility] [id number] [place] [address] 02544- 4906 Oct, [facility] [id number] [place] [address] 12230- 7558 Oct, Rotator cuff syndrome of right shoulder M75.101 [facility] [id number] [place] [address] 16965- 2461 Oct, Diabetes E11.9 [facility] [id number] [place] [address] 70965- 6190 Sep, Type 2 diabetes mellitus with hyperglycemia E11.65 ; Obstructive sleep apnea syndrome G47.33 and Constipation, unspecified constipation type K59.00 [facility] [id number] [place] [address] 02346- 1445 Aug, [facility] [id number] [place] [address] 37435- 9863 Aug, [facility] [id number] [place] [address] 47941- 7893 Aug, Type 2 diabetes mellitus with diabetic autonomic (poly) neuropathy E11.43 [facility] [id number] [place] [address] 48492- 1810 July, Type 2 diabetes mellitus with hyperglycemia E11.65 [place] [id number] [place] [address] 05940- 4538 Jun, Slow transit constipation K59.01 [place] [id number] [place] [address] 77752- 2173 May, [place] [address] 33140- 0196 May, Diabetes E11.9 [place] [id number] [place] [address] 50694- 2856 May, [facility] [place] [address] 09127 -9028 Apr, [place] [id number] [place] [address] 90926- 6335 Apr, Gastroenteritis K52.[address] [facility] [place] [address] 83120 -4132 Apr, Abdominal pain, unspecified location R10.9 ; Gastroenteritis K52.9 ; Type 2 diabetes mellitus with hyperglycemia E11.65 and correction current use of insulin Z79.4 [place] [id number] [place] [address] 81362- 1540 Apr, [place] [id number] [place] [address] 90561- 3727 Apr, [place] [id number] [place] [address] 87449- 4012 Apr, Diabetes E11.9 ; Gastroparesis K31.84 ; Generalized abdominal pain R10.84 ; Essential hypertension I10 ; Bronchitis J40 and Other fatigue R53.83 [facility] [place] [id number] [place] [address] 22157 -4737 Mar, [facility] [place] [id number] [place] [address] 35046 -6574 Mar, [facility] [id number] [place] [address] 56755 -9575 Mar, Laceration of scalp without foreign body, initial encounter S01.01XA ; Laceration of face, initial encounter S01.81XA and Encounter for immunization Z23 [place] [id number] [place] [address] 16224- 5917 Mar, Type 2 diabetes mellitus with diabetic autonomic (poly) neuropathy E11.43 [place] [address] 21581- 4858 Feb, [place] [address] 97332- 9290 Feb, Internal hemorrhoids K64.8 and Obstructive sleep apnea syndrome G47.33 [place] [address] 88269- 8558 Feb, SI (sacroiliac) joint dysfunction M53.3 [place] [address] 38481- 0914 Jan, [place] [address] 28831- 5910 Dec, Gastroparesis K31.84 [place] [id number] [place] [address] 83919- 9708 Dec, [place] [address] 15087- 0330 Dec, Right hip pain M25.551 ; Nose congested R09.81 and Encounter for immunization Z23 [place] [id number] [place] [address] 54274- 1937 Nov, Diabetes E11.9 ; Gastroparesis K31.84 ; Type 2 diabetes mellitus with diabetic autonomic (poly)neuropathy E11.43 and Obstructive sleep apnea syndrome G47.33 [facility] [id number] [place] [address] 72099- 2855 Oct, [place] [id number] [place] [address] 35217- 8020 Aug, [facility] [address] 21089- 5004 July, Gastro-esophageal reflux disease without esophagitis K21.9 [facility] [id number] [place] [address] 82099- 6060 July, [facility] [address] 10822- 0728 July, Diabetes E11.9 [facility] [address] 54416- 3101 July, Diabetes E11.9 ; Obstructive sleep apnea syndrome G47.33 and Neuropathy G62.9 [place] [id number] [place] [address] 39031- 9123 July, Bipolar disorder, current episode depressed, moderate F31.32 ; BRITTANI (generalized anxiety disorder) F41.1 and Panic disorder with agoraphobia F40.01 [facility] [id number] [place] [address] 49141- 6764 Jun, [facility] [address] [id number] [place] [address] 08073- 3889 Jun, [facility] [id number] [place] [address] 51864- 3896 Jun, [facility] [id number] [place] [address] 50350- 3577 Jun, [facility] [address] [place] [id number] [place] [address] [id number] May, Encounter for dental examination and cleaning without abnormal findings Z01.20 [facility] [id number] [place] [address] 86691- 6990 Apr, [facility] [id number] [place] [address] 41346- 0185 Apr, [facility] [id number] [place] [address] 91321- 4097 04 Apr, 2015 Bipolar disorder, current episode depressed, moderate F31.32 ; BRITTANI (generalized anxiety disorder) F41.1 and Panic disorder with agoraphobia F40.01 [place] [id number] [place] [address] 86985- 5174 04 Apr, 2015 Hyperlipidemia, unspecified E78.5 [facility] [address] [id number] Apr, Dental caries K02.9 [facility] [address] [id number] Feb, Dental caries K02.9 and Encounter for dental examination Z01.20 [place] [id number] [place] [address] 00535- 5817 Feb, [address] 42389- 2079 Feb, Diabetes E11.9 ; Insulin long-term use Z79.4 ; Diabetic polyneuropathy associated with diabetes mellitus due to underlying condition E08.42 and Barretts esophagus with high grade dysplasia K22.711 [place] [id number] [place] [address] 69315- 1185 14 Feb, 2015 [place] [id number] [place] [address] 82595- 6988 Jan, Pain in right hip M25.551 and Other chronic pain G89.29 [place] [id number] [place] [address] 14334- 1316 05 Jan, 2015 Impingement syndrome, shoulder, left M75.[address] 30262- 5953 05 Jan, 2015 Bipolar disorder, current episode depressed, moderate F31.32 ; Generalized anxiety disorder F41.1 and Agoraphobia with panic disorder F40.[address] 03722- 7157 Jan, [facility] [address] [place] [address]- 0562 Dec, [facility] [id number] [place] [address] 59984- 2324 Dec, [facility] [id number] [place] [address] 085736- 1172 Dec, Right hip pain M25.551 and Left shoulder pain M25.512 [facility] [id number] [place] [address] 862190- 3571 Dec, Bipolar 1 disorder, depressed, moderate F31.32 ; BRITTANI ( generalized anxiety disorder) F41.1 and Panic disorder with agoraphobia F40.01 [facility] [id number] [address]- 2734 Dec, [facility] [id number] [place] [address] 38633- 6000 Dec, [facility] [id number] [place] [address] 65608- 1258 28 Nov, 2014 [facility] [id number] [place] [address] 56028- 2257 18 Nov, 2014 [facility] [address], [place] [address]- 8152 14 Nov, 2014 [facility] [id number] [place] [address] 06486- 2272 14 Nov, 2014 Diabetes 250.00 [facility] [address], [place] [address]- 8043 Oct, [facility] [id number] [place] [address] 207527- 7956 Oct, [facility] [address], [place] [address]- 8652 Oct, [facility] [id number] [place] [address] 83176- 6867 Oct, [facility] [address] [place] [id number] [address]- 2662 Oct, [facility] [address], [place] [address]- 8623 Oct, [facility] [address], [place] [address]- 5205 Oct, Diabetes 250.00 ; Insomnia 780.52 and Forgetfulness 780.99 [facility] [address], [place] [address]- 2756 Oct, Depressive disorder, not elsewhere classified 311 [facility] [address] [place] [address] 42159- 8329 Sep, [facility] [address], [place] [address]- 0810 Sep, [facility] [address], [place] [address]- 5163 Sep, [facility] [address], [place] [address]- 6241 Sep, [facility] [address], [place] [address]- 8336 Sep, [facility] [address], [place] [address]- 5053 Sep, [facility] [address], [place] [address]- 8546 Sep, [facility] [address] [place] [id number] [address]- 6429 Aug, [facility] [address] [id number] [id number] Aug, Dental examination V72.2 [facility] [address] [place] [id number] 3600 Aug, [facility] [address] [place] [address]- 2703 Aug, [facility] [place] [facility] [address] [id number] [place] [address]- 7911 July, [facility] [place] [facility] [address] [id number] [place] [address]- 4166 July, [facility] [place] [facility] [address] [id number] [place] [address]- 8026 July, [facility] [place] [facility] [address] [id number] [place] [address]- 3713 July, [facility] [place] [facility] [address] [id number] [place] [address]- 9038 Jun, [facility] [place] [facility] [address] [id number] [place] [address]- 9597 Jun, [facility] [place] [facility] [address] [id number] [place] [address]- 6962 May, [facility] [place] [facility] [address] [id number] [place] [address]- 1057 May, [facility] [place] [facility] [address] [id number] [place] [address]- 8821 May, [facility] [place] [facility] [address] [id number] [place] [address]- 2700 May, [facility] [place] [facility] [address] [id number] [place] [address]- 6181 May, [facility] [place] [facility] [address] [id number] [place] [address]- 8759 17 May, 2014 [facility] [place] [facility] [address] [id number] [place] [address]- 3307 16 May, 2014 [facility] [place] [facility] [address] [id number] [place] [address]- 2546 May, [facility] [place] [facility] [address] [id number] [place] [address]- 3842 Apr, [facility] [place] [facility] [address] [id number] [place] [address]- 7661 Apr, [facility] [place] [facility] [address] [id number] [place] [address]- 2974 Apr, [facility] [place] [facility] [address] [id number] [place] [address]- 1202 Apr, [facility] [place] [facility] [address] [id number] [place] [address]- 4369 Apr, [facility] [place] [facility] [address] [id number] [place] [address]- 8273 Apr, [facility] [place] [facility] [address] [id number] [place] [address]- 1914 Mar, [facility] [place] [facility] [address] [id number] [place] [address]- 8920 Mar, [facility] [place] [facility] [address] [id number] [place] [address]- 2475 Mar, [facility] [place] [facility] [address] [id number] [place] [address]- 6946 Mar, [facility] [place] [facility] [address] [id number] [place] [address]- 6840 Mar, [facility] [place] [facility] [address] [id number], [place] [address]- 3279 Mar, [facility] [place] [facility] [address] [id number], [place] [address]- 2225 Mar, [facility] [place] [facility] [address] [id number] [place] [address]- 4179 Mar, [facility] [place] [facility] [address] [id number], [place] [address]- 4220 Mar, [facility] [place] [facility] [address] [id number] [place] [address]- 9355 Mar, [facility] [place] [facility] [address] [id number] [place] [address]- 3451 08 Mar, 2014 [facility] [address] [id number] [place] [address]- 5354 Mar, [facility] [place] [facility] [address] [id number] [place] [address]- 5535 Mar, [facility] [place] [facility] [address] [id number] [place] [address]- 8748 Mar, [facility] [place] [facility] [address] [id number] [place] [address]- 8350 30 Feb, 2014 [facility] [place] [facility] [address] [id number] [place] [address]- 1607 30 Feb, 2014 [facility] [place] [facility] [address] [id number] [place] [address]- 9082 Feb, [facility] [place] [facility] [address] [id number] [place] [address]- 1674 Feb, [facility] [place] [facility] [address] [id number] [place] [address]- 9572 Feb, [facility] [place] [facility] [address] [id number] [place] [address]- 7857 19 Feb, 2014 [facility] [place] [facility] [address] [id number] [place] [address]- 6894 16 Feb, 2014 [facility] [place] [facility] [address] [id number] [place] [address]- 5867 16 Feb, 2014 [facility] [place] [facility] [address] [id number] [place] [address]- 2540 16 Feb, 2014 [facility] [place] [facility] [address] [id number] [place] [address]- 7539 16 Feb, 2014 [facility] [place] [facility] [address] [id number] [place] [address]- 4716 10 Feb, 2014 [facility] [place] [facility] [address] [id number] [place] [address]- 0236 10 Feb, 2014 [facility] [place] [facility] [address] [id number] [place] [address]- 7187 Feb, [facility] [place] [facility] [address] [id number] [place] [address]- 3269 Feb, [facility] [place] [facility] [address] [id number] [place] [address]- 5591 Jan, [facility] [place] [facility] [address] [id number] [place] [address]- 9489 Jan, [facility] [place] [facility] [address] [id number] [place] [address]- 2867 Jan, [facility] [place] [facility] [address] [id number] [place] [address]- 3915 Jan, [facility] [place] [facility] [address] [id number] [place] [address]- 5176 Dec, [facility] [place] [facility] [address] [id number] [place] [address]- 5689 Dec, [facility] [place] [facility] [address] [id number] [place] [address]- 9468 Dec, [facility] [place] [facility] [address] [id number] [place] [address]- 5126 Dec, [facility] [place] [facility] [address] [id number] [place] [address]- 2123 Dec, [facility] [place] [facility] [address] [id number] [place] [address]- 6197 Dec, [facility] [place] [facility] [address] [id number] [place] [address]- 5918 Dec, [facility] [place] [facility] [address] [id number] [place] [address]- 8274 Dec, [facility] [place] [facility] [address] [id number] [place] [address]- 3600 30 Nov, 2013 [facility] [place] [facility] [address] [id number] [place] [address]- 9406 Nov, [facility] [place] [facility] [address] [id number] [place] [address]- 1099 Nov, [facility] [place] [facility] [address] [id number] [place] [address]- 3134 Nov, [facility] [place] [facility] [address] [id number] [place] [address]- 7805 Nov, [facility] [place] [facility] [address] [id number] [place] [address]- 4476 Oct, [facility] [place] [facility] [address] [id number] [place] [address]- 9065 Oct, [facility] [place] [facility] [address] [id number] [place] [address]- 8971 Sep, [facility] [place] [facility] [address] [id number] [place] [address]- 0595 Sep, [facility] [place] [facility] [address] [id number] [place] [address]- 1082 Sep, [facility] [place] [facility] [address] [id number] [place] [address]- 0345 Sep, [facility] [place] [facility] [address] [id number] [place] [address]- 8593 Sep, [facility] [place] [facility] [address] [id number] [place] [address]- 9606 Sep, [facility] [place] [facility] [address] [id number] [place] [address]- 8049 Sep, [facility] [place] [facility] [address] [id number] [place] [address]- 3588 Sep, [facility] [place] [facility] [address] [id number] [place] [address] Sep, [facility] [place] [facility] [address] [id number] [place] [address] Sep, [facility] [place] [facility] [address] [id number] [place] [address] Sep, [facility] [address] [id number] [place] [address] Sep, [facility] [address] [id number] [place] [address] Sep, [facility] [address] [id number] [place] [address] Sep, [facility] [address] [id number] [place] [address] July, [facility] [address] [id number] [place] [address] July, [facility] [address] [id number] [place] [address] July, [facility] [address] [id number] [place] [address] July, [facility] [address] [id number] [place] [address] July, [facility] [address] [id number] [place] [address] July, [facility] [address] [id number] [place] [address] July, [facility] [address] [id number] [place] [address] July, [facility] [address] [id number] [place] [address] Jun, [facility] [place] [facility] [address] [id number] [place] [address] Jun, [facility] [place] [facility] [address] [id number] [place] [address] Jun, [facility] [place] [facility] [address] [id number] [place] [address] Jun, [facility] [place] [facility] [address] [id number] [place] [address] 07 Jun, 2013 [facility] [place] [facility] [address] [id number] [place] [address] 07 Jun, 2013 [facility] [place] [facility] [address] [id number] [place] [address] Jun, [facility] [place] [facility] [address] [id number] [place] [address] Jun, [facility] [place] [facility] [address] [id number] [place] [address] 27 May, 2013 [facility] [place] [facility] [address] [id number] [place] [address] 27 May, 2013 [facility] [place] [facility] [address] [id number] [place] [address] May, [facility] [place] [facility] [address] [id number] [place] [address] May, [facility] [place] [facility] [address] [id number] [place] [address] 20 May, 2013 [facility] [place] [facility] [address] [id number] [place] [address] 20 May, 2013 [facility] [place] [facility] [address] [id number] [place] [address] 19 May, 2013 [facility] [place] [facility] [address] [id number] [place] [address] 19 May, 2013 [facility] [place] [facility] [address] [id number] [place] [address] 17 May, 2013 [facility] [place] [facility] [address] [id number] [place] [address] 17 May, 2013 [facility] [place] [facility] [address] [id number] [place] [address] 17 May, 2013 [facility] [place] [facility] [address] [id number] [address] May, [facility] [place] [facility] [address] [id number] [place] [address] May, [facility] [place] [facility] [address] [id number] [place] [address] May, [facility] [place] [facility] [address] [id number] [place] [address] May, [facility] [place] [facility] [address] [id number] [place] [address] May, [facility] [place] [facility] [address] [id number] [place] [address] Apr, [facility] [place] [facility] [address] [id number] [place] [address] Apr, [facility] [place] [facility] [address] [id number] [place] [address] Mar, [facility] [place] [facility] [address] [id number] [place] [address] Mar, [facility] [place] [facility] [address] [id number] [place] [address] 39[address] Mar, [facility] [place] [facility] [address] [facility] [id number] [place] [address] Mar, [facility] [place] [facility] [address] [id number] [place] [address] 69[address] Mar, [facility] [place] [facility] [address] [id number] [place] [address] 18[address] Mar, [facility] [place] [facility] [address] [id number] [place] [address] Feb, [facility] [place] [facility] [address] [id number] [place] [address] Feb, [facility] [place] [facility] [address] [facility] [id number] [place] [address] Feb, [facility] [place] [facility] [address] [id number] [place] [address] Feb, [facility] [place] [facility] [address] [id number] [place] [address] 357[address] Feb, [facility] [place] [facility] [address] [id number] [place] [address] 49[address] Feb, [facility] [place] [facility] [address] [id number] [place] [address] 29[address] Jan, [facility] [place] [facility] [address] [id number] [place] [address] Jan, [facility] [place] [facility] [address] [id number] [place] [address] 0[address] Jan, [facility] [place] [facility] [address] [id number] [place] [address] Jan, [facility] [place] [facility] [address] [id number] [place] [address] 2428 Jan, [facility] [place] [facility] [address] [id number] [place] [address] 24[address] Jan, [facility] [place] [facility] [address] [id number] [place] [address] 17[address] Jan, [facility] [place] [facility] [address] [id number] [place] [address] 69[address] Dec, [facility] [place] [facility] [address] [id number] [place] [address] 1815 Dec, [facility] [place] [facility] [address] [id number] [place] [address] 6165 Dec, [facility] [place] [facility] [address] [id number] [place] [address] Nov, [facility] [place] [facility] [address] [id number] [place] [address] 5[address] Oct, [facility] [place] [facility] [address] [id number] [place] [address] Sep, [facility] [address] [id number] [place] [address] Sep, [facility] [place] [facility] [address] [id number] [place] [address]- 5[address] Sep, [facility] [address] [id number] [place] [address] 36[address] Sep, [facility] [place] [facility] [address] [id number] [place] [address] 8[address] Sep, [facility] [address] [id number] [place] [address] 34[address] Sep, [facility] [address] [id number] [place] [address] 77[address] Aug, [facility] [place] [facility] [address] [id number] [place] [address] 8[address] Aug, [facility] [place] [facility] [address] [id number] [place] [address] July, [facility] [place] [facility] [address] [id number] [place] [address] 9[address] July, [facility] [place] [facility] [address] [id number] [place] [address] 37[address] July, [facility] [place] [facility] [address] [id number] [place] [address] 1284 July, [facility] [place] [facility] [address] [id number], [place] [address] Jun, [facility] [place] [facility] [address] [id number] [place] [address] 40[address] May, [facility] [place] [facility] [address] [id number] [place] [address] 1114 May, [facility] [place] [facility] [address] [id number] [place] [address] 2802 May, [facility] [place] [facility] [address] [id number] [place] [address] 7053 Mar, [facility] [address] [id number] [place] [address] 7816 Mar, [facility] [place] [facility] [address] [id number] [place] [address] 0646 Mar, [facility] [address] [id number] [place] [address]- 7296 Feb, [facility] [place] [facility] [address] [id number] [place] [address]- 7966 Feb, [facility] [address] [id number] [place] [address] 9809 Feb, [facility] [place] [facility] [address] [id number] [place] [address]- 2288 Feb, [facility] [address] [id number] [place] [address] 9529 Feb, [facility] [address] [id number] [place] [address]- 2629 Feb, [facility] [place] [facility] [address] [id number] [place] [address] 6351 Feb, [facility] [address] [id number] [place] [address] 4[address] Feb, [facility] [place] [facility] [address] [id number] [place] [address]- 2646 Feb, [facility] [place] [facility] [address] [id number] [place] [address] 0282 Feb, [facility] [place] [facility] [address] [id number] [place] [address] 4178 Jan, [facility] [place] [facility] [address] [id number] [place] [address]- 7546 Jan, [facility] [place] [facility] [address] [id number] [place] [address]- 5743 Jan, [facility] [place] [facility] [address] [id number] [place] [address]- 3912 Jan, [facility] [place] [facility] [address] [id number] [place] [address]- 7434 Jan, [facility] [place] [facility] [address] [id number] [place] [address]- 1115 Jan, [facility] [place] [facility] [address] [id number] [place] [address]- 2637 Jan, [facility] [place] [facility] [address] [id number] [place] [address]- 4406 Jan, [facility] [place] [facility] [address] [id number] [place] [address]- 9074 Jan, [facility] [place] [facility] [address] [id number] [place] [address]- 3976 Jan, [facility] [place] [facility] [address] [id number] [place] [address]- 3415 Dec, [facility] [place] [facility] [address] [id number] [place] [address]- 4506 Dec, [facility] [place] [facility] [address] [id number] [place] [address]- 0039 Nov, [facility] [place] [facility] [address] [id number] [place] [address]- 7717 24 Nov, 2011 [facility] [place] [facility] [address] [id number] [place] [address]- 0219 05 Nov, 2011 [facility] [place] [facility] [address] [id number] [place] [address]- 0691 Oct, [facility] [place] [facility] [address] [id number] [place] [address] 3453 Oct, [facility] [place] [facility] [address] [id number] [place] [address] Oct, [facility] [place] [facility] [address] [id number], [place] [address] 4478 Oct, [facility] [address] [id number] [place] [address]- 6946 18 Aug, 2011 [facility] [place] [facility] [address] [id number], [place] [address] 15 Aug, 2011 [facility] [place] [facility] [address] [facility] [id number] [place] [address]- 2674 14 Aug, 2011 [facility] [place] [facility] [address] [id number], [place] [address]- 64[address] 07 Aug, 2011 [facility] [place] [facility] [address] [id number] [place] [address]- 8474 08 Jun, 2011 [facility] [place] [facility] [address] [facility] [id number] [place] [address]- 4650 May, [facility] [address] [facility] [id number] [place] [address]- 4031 May, [facility] [place] [facility] [address] [id number] [place] [address]- 2089 20 Apr, 2011 [facility] [address] [facility] [id number] [place] [address]- 9589 20 Apr, 2011 [facility] [place] [facility] [address] [facility] [id number] [place] [address]- 4422 15 Apr, 2011 [facility] [place] [facility] [address] [facility] [id number] [place] [address]- 5651 14 Apr, 2011 [facility] [place] [facility] [address] [id number], [place] [address] 3238 Mar, [facility] [place] [facility] [address] [id number] [place] [address]- 1762 Mar, [facility] [place] [facility] [address] [id number], [place] [address]- 2781 Mar, [facility] [place] [facility] [address] [facility] [id number], [place] [address]- 1018 Mar, [facility] [place] [facility] [address] [id number] [place] [address]- 5767 13 Mar, 2011 [facility] [place] [facility] [address] [id number] [place] [address]- 7907 13 Mar, 2011 [facility] [place] [facility] [address] [id number] [place] [address]- 9996 Feb, [facility] [place] [facility] [address] [id number] [place] [address]- 1453 Jan, [facility] [place] [facility] [address] [id number] [place] [address]- 2420 Jan, [facility] [place] [facility] [address] [id number] [place] [address]- 7797 Jan, [facility] [place] [facility] [address] [id number] [place] [address]- 2965 Jan, [facility] [place] [facility] [address] [id number] [place] [address]- 3773 Jan, [facility] [place] [facility] [address] [id number] [place] [address]- 0731 Dec, [facility] [place] [facility] [address] [id number] [place] [address]- 4778 May, [facility] [place] [facility] [address] [id number] [place] [address]- 7038 14 Apr, 2010 [facility] [place] [facility] [address] [id number] [place] [address]- 5379 Mar, [facility] [place] [facility] [address] [id number] [place] [address]- 5328 Feb, [facility] [place] [facility] [address] [id number] [place] [address]- 0787 Feb, [facility] [place] [facility] [address] [id number] [place] [address]- 4395 14 Feb, 2010 [facility] [place] [facility] [address] [id number] [place] [address]- 4662 Feb, [facility] [address] [facility] [id number] [place] [address] Dec, [facility] [address] [facility] [id number] [place] [address]- 3812 Dec, IMMUNIZATIONS No Known Immunizations SOCIAL HISTORY Never Assessed REASON FOR VISIT Diabetes--Edwin Simons MA PLAN OF CARE Activity Details Follow Up 3 Months Reason:DM VITAL SIGNS Height 67 in 2017-01-31 Weight 209.1 lbs 2017-01-31 Temperature 98.2 degrees Fahrenheit 2017-01-31 Heart Rate 88 bpm 2017-01-31 Respiratory Rate 18 2017-01-31 BMI 32.75 kg/m2 2017-01-31 Blood pressure systolic 132 mmHg 2017-01-31 Blood pressure diastolic 92 mmHg 2017-01-31 MEDICATIONS Medication Instructions Dosage Frequency Start Date End Date Duration Status Metformin HCl 500 mg Orally Twice a day 2 tablet 12h 90 Active RectiCare 5 % Externally Four times a day 1 application to anus as needed for pain 6h May, Not-Taking Metoprolol Tartrate 50 MG TAKE 1 TABLET TWICE DAILY 30 Active MiraLax - Orally at bedtime 17 grams mixed with 8 ounces of water or juice as needed May, Active Nitrostat 0.4 MG Not-Taking BusPIRone HCl 10 MG TAKE ONE TABLET BY MOUTH IN THE MORNING, ONE TABLET AT NOON AND TWO TABLETS AT BEDTIME 67 Active NovoLog Flexpen 100 UNIT/ML Subcutaneous 3 times a day. Correct at noon and at supper Base Blood Sugar is 150, increase by 1 unit for every 10 over 150 20 UNITS Active C-PAP Machine N/A as directed Oct, Not-Taking Aspirin Adult Low Dose 81 MG Orally Once a day 1 tablet 24h Active OneTouch Ultra Test - test blood sugar 12h Nov, Active Vitamin E 100 UNIT Orally Once a day 1 capsule 24h Not-Taking Victoza 18 MG/3ML Subcutaneous Once a day Inject 1.8mg 24h 90 Active Pantoprazole Sodium 40 MG TAKE ONE TABLET BY MOUTH ONCE DAILY 30 Active Oxybutynin Chloride 5 MG Orally Twice a day 1 tablet 12h 30 Active Zenpep 37385 UNIT Orally before meals and snacks 1 tablet 30 Active Ondansetron 8 MG Orally every 6 hrs 1 tablet on the tongue and allow to dissolve 6h May, Not-Taking Levemir FlexTouch 100 units/ml Subcutaneous 2 times a day Inject 50 units 12h 90 days Active Pen [place] 31G X 6 MM Inject July, 30 days Active Quinapril HCl 20 MG TAKE 1 TABLET EVERY DAY 24h 90 Active Effexor XR 150 MG Orally Once a day 1 capsule with food 24h Oct, 90 days Active Adult Mask N/A as directed July, Not-Taking Atorvastatin Calcium 40 MG Orally Once a day 1 tablet 24h 90 Active Fish Oil 1000 MG Orally Three times a day 1 capsule 8h Not-Taking Gabapentin 300 MG TAKE THREE CAPSULES BY MOUTH THREE TIMES DAILY 30 Active RESULTS Name Result Date Reference Range A1C (IN HOUSE) 2017-01-31 A1C IN HOUSE 8.1 4.3 - 5.6 % Previous A1c 11.9 Lot [id number] Exp date 10/30 MICROALBUMIN, URINE (IN HOUSE) 2017-01-31 MICROALBUMIN abnormal Lot # [id number] Exp date 09/28 Clarity clear Color yellow ALB 10mg/L CRE 50mg/dL A:C (IN HOUSE) 30-300mg/g* Control + Control abnormal Lot # [id number] Exp date 11/29 Xray : Forearm, Right 2 views (IN HOUSE) 2017-01-31 PROCEDURES Procedure Date Ordered Result Body Site MICROALBUMIN, SEMIQUANT Jan 31, 2017 GLYCATED HEMOGLOBIN TEST Jan 31, 2017 X-RAY EXAM OF FOREARM Jan 31, 2017 INSTRUCTIONS MEDICATIONS ADMINISTERED No Known Medications [...]
--- OUTSIDE RECORDS SUMMARY | 2017-12-04 09:54 | XMS REPORT ---
Author Author SUJEY MORELAND [employer] Address Unknown Phone Unavailable Care Team Providers Care Salesperson [employer] Name Role Phone SUJEY MORELAND CP Unavailable Allergies No Known Allergies Problems Problem Type Condition Code Onset Dates Condition Status Problem Esophageal reflux 530.81 Active Problem Unspecified essential hypertension 401.9 Active Problem Other and unspecified hyperlipidemia 272.4 Active Problem BRITTANI (generalized anxiety disorder) F41.1 Active Problem Panic disorder with agoraphobia F40.01 Active Problem Bipolar disorder, current episode depressed, moderate F31.32 Active Problem Barretts esophagus without dysplasia K22.70 Active Problem Irritable bowel syndrome 564.1 Active Problem Depressive disorder, not elsewhere classified 311 Active Problem 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
--- OUTSIDE RECORDS SUMMARY | 2017-12-04 09:55 | XMS REPORT ---
Author Author JYOTSNA EMERY Organization [facility] Address [address] [place] [address] Care Team Providers Care Branch Or Department Chief Librarian Name Role Phone JYOTSNA EMERY Unavailable PROBLEMS Type Condition ICD9-CM Code TAC54-QY Code Onset Dates Condition Status SNOMED Code Problem Diabetes E11.9 Active 075055365 Problem Type 2 diabetes mellitus with hyperglycemia E11.65 Active 16434373 Problem Essential hypertension I10 Active 93145327 Problem Diabetic polyneuropathy associated with diabetes mellitus due to underlying condition E08.42 Active 75599748 Problem Rotator cuff syndrome of right shoulder M75.101 Active [id number] Problem Slow transit constipation K59.01 Active 11593196 Problem custodial current use of insulin Z79.4 Active 513283477 Problem Constipation, unspecified constipation type K59.00 Active 60032361 Problem Irritable bowel syndrome, unspecified type K58.9 Active 13104752 Problem Barretts esophagus without dysplasia K22.70 Active 100724229 Problem 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 Nov, Active 7415381 Problem Herniation of intervertebral disc at C5-C6 level M50.222 Active 359513054 Problem Gastroparesis K31.84 Active 735129312 Problem Bipolar disorder, current episode depressed, moderate F31.32 Active 591415455 Problem Gastro-esophageal reflux disease without esophagitis K21.9 Active 356106298 Problem Panic disorder with agoraphobia F40.01 Active 73934976 Problem Type 2 diabetes mellitus with diabetic autonomic (poly)neuropathy E11.43 Active 350804095 Problem BRITTANI (generalized anxiety disorder) F41.1 Active 52209619 Problem Obstructive sleep apnea syndrome G47.33 Active 33745592 ALLERGIES No Information ENCOUNTERS Encounter Location Date Diagnosis [facility] [address] [facility] [id number] [address] Jun, Type 2 diabetes mellitus with diabetic autonomic (poly) neuropathy E11.43 and Type 2 diabetes mellitus with hyperglycemia E11.65 [facility] [address] [address] May, [facility] [address] [address]- [address] May, Bipolar disorder, current episode depressed, moderate F31.32 [facility] WALK IN [facility] [address] [address] May, [facility] [address] [address]- [address]861 May, Diabetic polyneuropathy associated with diabetes mellitus due to underlying condition E08.42 [place] [address] [address]- [address]273 Apr, [place] [address] [address]76- 0200 Feb, Ganglion cyst of dorsum of right wrist M67.431 [place] [address] 75509- 5042 Jan, Other cyst of bone, right forearm M85.631 [place] [address] [address]31- 6821 Jan, [place] [address] 91403- 8214 Jan, Diabetes E11.9 and Right forearm pain M79.631 [place] [address] 76052- 0441 Dec, Encounter for immunization Z23 [place] [address] 76043- 6697 Nov, [place] [address] 61955- 0333 Nov, Type 2 diabetes mellitus with hyperglycemia E11.65 [place] [address] 45196- 4052 Nov, Severe pain of right shoulder M25.511 [facility] [address] [place] [id number] [place] [address] 94908- 2356 Oct, Diabetes E11.9 [facility] [address] [place] [id number] [place] [address] 63754- 8608 Oct, Diabetes E11.9 [facility] [address] [place] [id number] [place] [address] 33391- 0661 Oct, [facility] [address] [place] [id number] [place] [address] 33786- 3547 Oct, [facility] [address] [place] [id number] [place] [address] 20863- 2817 Oct, Rotator cuff syndrome of right shoulder M75.101 [place] [address] [place] [id number] [place] [address] 86054- 5757 Oct, Diabetes E11.9 [facility] [address] [place] [id number] [place] [address] 18525- 5459 Sep, Type 2 diabetes mellitus with hyperglycemia E11.65 ; Obstructive sleep apnea syndrome G47.33 and Constipation, unspecified constipation type K59.00 [facility] [address] [place] [id number] [place] [address] 83144- 9788 Aug, [facility] [address] [place] [id number] [place] [address] 26749- 6909 Aug, [facility] [address] [place] [id number] [place] [address] 88724- 7257 Aug, Type 2 diabetes mellitus with diabetic autonomic (poly) neuropathy E11.43 [facility] [address] [place] [id number] [place] [address] 74526- 6464 July, Type 2 diabetes mellitus with hyperglycemia E11.65 [facility] [address] [place] [id number] [place] [address] 78445- 2651 Jun, Slow transit constipation K59.01 [facility] [address] [place] [address] 4881 May, [place] [address] [place] [id number] [place] [address] 06567- 0344 May, Diabetes E11.9 [place] [address] 72093- 4664 May, [facility] WALK IN [place] [address] 70320 -6515 Apr, [place] [address] 88075- 0608 Apr, Gastroenteritis K52.9 [facility] WALK IN [place] [address] 19274 -6401 Apr, Abdominal pain, unspecified location R10.9 ; Gastroenteritis K52.9 ; Type 2 diabetes mellitus with hyperglycemia E11.65 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 [place] [address] [place] [id number] [place] [address] 39570- 8850 Apr, [place] [address] 61939- 7915 Apr, [place] [address] [place] [id number] [place] [address] 30459- 4474 Apr, Diabetes E11.9 ; Gastroparesis K31.84 ; Generalized abdominal pain R10.84 ; Essential hypertension I10 ; Bronchitis J40 and Other fatigue R53.83 [facility] [address] [place] [id number] [place] [address] 03774 -2201 Mar, [facility] WALK IN [place] [address] 08025 -8972 Mar, [facility] WALK IN [place] [address] 79281 -2497 Mar, Laceration of scalp without foreign body, initial encounter S01.01XA ; Laceration of face, initial encounter S01.81XA and Encounter for immunization Z23 [place] [address] [place] [id number] [place] [address] 80106- 2087 Mar, Type 2 diabetes mellitus with diabetic autonomic (poly) neuropathy E11.43 [place] [address] [place] [id number] [place] [address] 79301- 8275 Feb, [place] [address] [place] [id number] [place] [address] 33894- 4397 Feb, Internal hemorrhoids K64.8 and Obstructive sleep apnea syndrome G47.33 [place] [address] [place] [id number] [place] [address] 97782- 0408 Feb, SI (sacroiliac) joint dysfunction M53.[address] 84307- 7653 Jan, [place] [address] 27542- 9522 Dec, Gastroparesis K31.84 [place] [address] 31422- 1679 Dec, [address] 8[address]13- 2000 Dec, Right hip pain M25.551 ; Nose congested R09.81 and Encounter for immunization Z23 [place] [address] [place] [id number] [place] [address] 70252- 4618 Nov, Diabetes E11.9 ; Gastroparesis K31.84 ; Type 2 diabetes mellitus with diabetic autonomic (poly)neuropathy E11.43 and Obstructive sleep apnea syndrome G47.33 [place] [address] [place] [id number] [place] [address] 46629- 0392 Oct, [place] [address] 63125- 7150 Aug, [place] [address] [place] [id number] [place] [address] 89720- 0422 July, Gastro-esophageal reflux disease without esophagitis K21.9 [facility] [address] [place] [id number] [place] [address] 75237- 1540 July, [facility] [address] [place] [id number] [place] [address] 04028- 0475 July, Diabetes E11.9 [facility] [address] [place] [id number] [place] [address] 26034- 7550 July, Diabetes E11.9 ; Obstructive sleep apnea syndrome G47.33 and Neuropathy G62.9 [facility] [address] [place] [id number] [place] [address] 08143- 7399 July, Bipolar disorder, current episode depressed, moderate F31.32 ; BRITTANI (generalized anxiety disorder) F41.1 and Panic disorder with agoraphobia F40.01 [place] [address] [place] [id number] [place] [address] 55846- 9178 Jun, [facility] [address] [place] [id number] [place] [address] 05718- 4457 Jun, [facility] [address] [place] [id number] [place] [address] 07519- 8529 Jun, [facility] [address] [place] [id number] [place] [address] 84685- 5854 Jun, [facility] [address] [place] [id number] [place] [address] [id number] May, Encounter for dental examination and cleaning without abnormal findings Z01.20 [facility] [address] [place] [id number] [place] [address] 13518- 1875 Apr, [facility] [address] [place] [id number] [place] [address] 09046- 0624 Apr, [facility] [address] [place] [id number] [place] [address] 51020- 7251 Apr, Bipolar disorder, current episode depressed, moderate F31.32 ; BRITTANI (generalized anxiety disorder) F41.1 and Panic disorder with agoraphobia F40.01 [facility] [address] [place] [id number] [place] [address] 96209- 1119 04 Apr, 2015 Hyperlipidemia, unspecified E78.5 [facility] [address] [place] [id number] [place] [address] [id number] Apr, Dental caries K02.9 [facility] [address] [place] [id number] [place] [address] [id number] Feb, Dental caries K02.9 and Encounter for dental examination Z01.20 [place] [address] [place] [id number] [place] [address] 17452- 2322 Feb, [place] [address] 94829- 4096 15 Feb, 2015 Diabetes E11.9 ; Insulin long-term use Z79.4 ; Diabetic polyneuropathy associated with diabetes mellitus due to underlying condition E08.42 and Barretts esophagus with high grade dysplasia K22.711 [place] [id number] [place] [address] 75895- 8697 Feb, [place] [id number] [place] [address] 55725- 0177 Jan, Pain in right hip M25.551 and Other chronic pain G89.29 [place] [id number] [place] [address] 77607- 9265 Jan, Impingement syndrome, shoulder, left M75.42 [place] [id number] [place] [address] 98863- 6883 Jan, Bipolar disorder, current episode depressed, moderate F31.32 ; Generalized anxiety disorder F41.1 and Agoraphobia with panic disorder F40.[address] 31972- 3214 Jan, [place] [address] [place] [id number] [place] [address] 14463- 2794 Dec, [place] [address] 29212- 7920 Dec, [facility] [address] [address]- 1524 Dec, Right hip pain M25.551 and Left shoulder pain M25.512 [facility] [address] [id number] [address]- 6197 Dec, Bipolar 1 disorder, depressed, moderate F31.32 ; BRITTANI ( generalized anxiety disorder) F41.1 and Panic disorder with agoraphobia F40.01 [facility] [address] [place] [id number] [place] [address] 81361- 1273 Dec, [facility] [address] [place] [id number] [place] [address] 65193- 7557 Dec, [facility] [address] [place] [id number] [place] [address] 72208- 6011 Nov, [facility] [address] [place] [id number] [place] [address] 39465- 6477 18 Nov, 2014 [facility] [address] [place] [id number] [place] [address] 90267- 5358 Nov, [facility] [address] [place] [id number] [place] [address] 22176- 8358 14 Nov, 2014 Diabetes 250.00 [facility] [address] [place] [id number] [place] [address] 03810- 2888 Oct, [facility] [id number] [place] [address] 70479- 6303 Oct, [facility] [address] [place] [id number] [place] [address] 10431- 5781 Oct, [facility] [address] [place] [id number] [place] [address] 44559- 3944 Oct, [facility] [address], [place] [address]- 6488 Oct, [facility] [address] [place] [id number] [place] [address] 57115- 5190 Oct, [facility] [address] [address]- 5970 Oct, Diabetes 250.00 ; Insomnia 780.52 and Forgetfulness 780.99 [facility] [address] [address]- 1823 Oct, Depressive disorder, not elsewhere classified 311 [facility] [address] [place] [id number] [place] [address] 23776- 3874 Sep, [facility] [address] [id number] [address]- 0407 Sep, [facility] [address] [place] [id number] [place] [address] 21522- 8674 Sep, [facility] [address] [place] [address]- 5869 Sep, [facility] [address] [place] [id number] [place] [address] 97632- 2568 Sep, [facility] [address], [place] [address]- 4933 Sep, [facility] [address] [place] [id number] [place] [address] 837528- 4650 Sep, [facility] [address], [place] [address]- 8080 Aug, [facility] [address] [id number] Aug, Dental examination V72.2 [facility] [address], [place] [address]- 8857 Aug, [facility] [address] [id number] [address]- 6906 Aug, [facility] [address], [place] [address]- 4067 July, [facility] [address] [place] [id number] [place] [address] 05573- 5136 July, [facility] [address] [id number] [place] [address]- 1246 July, [facility] [place] [facility] [address] [id number] [place] [address]- 4957 July, [facility] [place] [facility] [address] [facility] [id number] [place] [address]- 9360 Jun, [facility] [place] [facility] [address] [id number] [place] [address]- 3089 Jun, [facility] [place] [facility] [address] [id number] [place] [address]- 5074 May, [facility] [place] [facility] [address] [id number] [place] [address]- 1078 May, [facility] [place] [facility] [address] [facility] [id number] [place] [address]- 0546 May, [facility] [place] [facility] [address] [facility] [id number] [place] [address]- 7237 May, [facility] [place] [facility] [address] [facility] [id number] [place] [address]- 7300 May, [facility] [place] [facility] [address] [facility] [id number] [place] [address]- 6400 May, [facility] [place] [facility] [address] [id number] [place] [address]- 3657 16 May, 2014 [facility] [place] [facility] [address] [facility] [id number], [place] [address]- 0486 May, [facility] [place] [facility] [address] [id number] [place] [address]- 5185 Apr, [facility] [place] [facility] [address] [id number] [place] [address]- 7451 Apr, [facility] [place] [facility] [address] [facility] [id number], [place] [address]- 1203 Apr, [facility] [place] [facility] [address] [id number] [place] [address]- 6700 Apr, [facility] [place] [facility] [address] [id number] [place] [address]- 1046 Apr, [facility] [place] [facility] [address] [id number] [place] [address]- 4706 Apr, [facility] [place] [facility] [address] [id number] [place] [address]- 2947 Mar, [facility] [place] [facility] [address] [id number] [place] [address]- 8911 Mar, [facility] [place] [facility] [address] [id number] [place] [address]- 0834 Mar, [facility] [place] [facility] [address] [id number] [place] [address]- 6642 Mar, [facility] [place] [facility] [address] [id number] [place] [address]- 4953 Mar, [facility] [place] [facility] [address] [id number] [place] [address]- 6761 Mar, [facility] [place] [facility] [address] [id number] [place] [address]- 1691 Mar, [facility] [place] [facility] [address] [id number] [place] [address]- 8192 Mar, [facility] [place] [facility] [address] [id number] [place] [address]- 3940 Mar, [facility] [place] [facility] [address] [id number] [place] [address]- 1585 Mar, [facility] [place] [facility] [address] [id number] [place] [address]- 6457 Mar, [facility] [place] [facility] [address] [id number] [place] [address]- 4972 Mar, [facility] [place] [facility] [address] [id number] [place] [address]- 3730 Mar, [facility] [place] [facility] [address] [id number] [place] [address]- 4084 Mar, [facility] [place] [facility] [address] [id number] [place] 4704 Feb, [facility] [place] [facility] [address] [id number] [place] [address]- 5696 Feb, [facility] [place] [facility] [address] [id number] [place] [address]- 3670 Feb, [facility] [place] [facility] [address] [id number] [place] [address]- 3277 Feb, [facility] [place] [facility] [address] [id number] [place] [address]- 5963 Feb, [facility] [place] [facility] [address] [id number] [place] [address]- 4984 Feb, [facility] [place] [facility] [address] [id number] [place] [address]- 7288 16 Feb, 2014 [facility] [place] [facility] [address] [id number] [place] [address]- 2431 Feb, [facility] [place] [facility] [address] [id number] [place] [address]- 6057 16 Feb, 2014 [facility] [place] [facility] [address] [id number] [place] [address]- 0834 16 Feb, 2014 [facility] [place] [facility] [address] [id number] [place] [address]- 3955 10 Feb, 2014 [facility] [place] [facility] [address] [id number] [place] [address]- 7834 Feb, [facility] [place] [facility] [address] [id number] [place] 8216 Feb, [facility] [place] [facility] [address] [id number] [place] 6783 Feb, [facility] [place] [facility] [address] [id number] [place] [address]- 4765 Jan, [facility] [place] [facility] [address] [id number] [place] [address]- 5223 Jan, [facility] [place] [facility] [address] [id number] [place] [address] 2545 Jan, [facility] [place] [facility] [address] [id number] [place] [address]- 0951 Jan, [facility] [place] [facility] [address] [id number] [place] [address]- 2800 Dec, [facility] [place] [facility] [address] [id number] [place] [address]- 3919 Dec, [facility] [place] [facility] [address] [id number] [place] 6327 Dec, [facility] [place] [facility] [address] [id number] [place] [address]- 2291 Dec, [facility] [place] [facility] [address] [id number] [place] [address]- 4002 Dec, [facility] [place] [facility] [address] [id number] [place] [address]- 6929 Dec, [facility] [place] [facility] [address] [id number] [place] [address]- 6361 Dec, [facility] [place] [facility] [address] [id number] [place] [address]- 3097 Dec, [facility] [place] [facility] [address] [id number] [place] [address]- 9153 30 Nov, 2013 [facility] [place] [facility] [address] [id number] [place] [address]- 8876 17 Nov, 2013 [facility] [place] [facility] [address] [id number] [place] [address] 2545 17 Nov, 2013 [facility] [place] [facility] [address] [id number] [place] [address]- 6680 Nov, [facility] [place] [facility] [address] [id number] [place] [address]- 5552 Nov, [facility] [place] [facility] [address] [id number] [place] [address]- 9066 Oct, [facility] [place] [facility] [address] [id number] [place] [address]- 8865 Oct, [facility] [place] [facility] [address] [id number] [place] [address]- 2001 Sep, [facility] [place] [facility] [address] [id number] [place] [address]- 9597 Sep, [facility] [place] [facility] [address] [id number] [place] [address]- 5814 Sep, [facility] [place] [facility] [address] [id number] [place] [address]- 9480 Sep, [facility] [place] [facility] [address] [id number] [place] [address]- 8092 Sep, [facility] [place] [facility] [address] [id number] [place] [address]- 0588 Sep, [facility] [place] [facility] [address] [id number] [place] [address]- 0930 Sep, [facility] [place] [facility] [address] [id number] [place] [address]- 7927 Sep, [facility] [place] [facility] [address] [id number] [place] [address] Sep, [facility] [place] [facility] [address] [id number] [place] [address] Sep, [facility] [place] [facility] [address] [id number] [place] [address] Sep, [facility] [place] [facility] [address] [id number] [place] [address] Sep, [facility] [place] [facility] [address] [id number] [place] [address] Sep, [facility] [place] [facility] [address] [id number] [place] [address] Sep, [facility] [place] [facility] [address] [id number] [place] [address] July, [facility] [place] [facility] [address] [id number] [place] [address] July, [facility] [place] [facility] [address] [id number] [place] [address] July, [facility] [place] [facility] [address] [id number] [place] [address] July, [facility] [place] [facility] [address] [id number] [place] [address] July, [facility] [place] [facility] [address] [id number] [place] [address] July, [facility] [place] [facility] [address] [id number] [place] [address] July, [facility] [place] [facility] [address] [id number] [place] [address] July, [facility] [place] [facility] [address] [id number] [place] [address] Jun, [facility] [place] [facility] [address] [id number] [place] [address] Jun, [facility] [place] [facility] [address] [id number] [place] [address]- 2017 Jun, [facility] [place] [facility] [address] [id number] [place] [address] Jun, [facility] [place] [facility] [address] [id number] [place] [address] Jun, [facility] [place] [facility] [address] [id number] [place] [address] Jun, [facility] [place] [facility] [address] [id number] [place] [address] Jun, [facility] [place] [facility] [address] [id number] [place] [address] Jun, [facility] [place] [facility] [address] [id number] [place] [address] 27 May, 2013 [facility] [place] [facility] [address] [id number] [place] [address] 27 May, 2013 [facility] [place] [facility] [address] [id number] [place] [address] 21 May, 2013 [facility] [place] [facility] [address] [id number] [place] [address] 21 May, 2013 [facility] [place] [facility] [address] [id number] [place] [address] 20 May, 2013 [facility] [place] [facility] [address] [id number] [place] [address] 20 May, 2013 [facility] [place] [facility] [address] [id number] [place] [address] 19 May, 2013 [facility] [place] [facility] [address] [id number] [place] [address] 19 May, 2013 [facility] [place] [facility] [address] [id number] [place] [address] 17 May, 2013 [facility] [place] [facility] [address] [id number] [place] [address] 17 May, 2013 [facility] [place] [facility] [address] [id number] [place] [address] 17 May, 2013 [facility] [place] [facility] [address] [id number] [place] [address] 17 May, 2013 [facility] [place] [facility] [address] [id number] [place] [address] 12 May, 2013 [facility] [place] [facility] [address] [id number] [place] [address] May, [facility] [place] [facility] [address] [id number] [place] [address] May, [facility] [place] [facility] [address] [id number] [place] [address] May, [facility] [place] [facility] [address] [id number] [place] [address] Apr, [facility] [place] [facility] [address] [id number] [place] [address] Apr, [facility] [place] [facility] [address] [id number] [place] [address] Mar, [facility] [place] [facility] [address] [id number] [place] [address] Mar, [facility] [place] [facility] [address] [id number] [place] [address] Mar, [facility] [place] [facility] [address] [id number] [place] [address] Mar, [facility] [place] [facility] [address] [id number] [place] [address]689 Mar, [facility] [place] [facility] [address] [id number] [place] [address] 5724 Mar, [facility] [place] [facility] [address] [id number], [place] [address] Feb, [facility] [place] [facility] [address] [id number] [place] [address] 3014 Feb, [facility] [place] [facility] [address] [id number] [place] [address] Feb, [facility] [place] [facility] [address] [id number] [place] [address] Feb, [facility] [place] [facility] [address] [id number] [place] [address] Feb, [facility] [place] [facility] [address] [id number] [place] [address] 254 Feb, [facility] [address] [id number] [place] [address] Jan, [facility] [place] [facility] [address] [id number] [place] [address] Jan, [facility] [address] [id number] [place] [address] Jan, [facility] [place] [facility] [address] [id number] [place] [address] 8[address] Jan, [facility] [address] [id number] [place] [address] 97[address] Jan, [facility] [place] [facility] [address] [id number] [place] [address] 9480 Jan, [facility] [place] [facility] [address] [id number] [place] [address] Jan, [facility] [address] [id number] [place] [address] 63[address] Dec, [facility] [place] [facility] [address] [id number] [place] [address]859 Dec, [facility] [address] [id number] [place] [address] Dec, [facility] [place] [facility] [address] [id number] [place] [address] 1238 Nov, [facility] [place] [facility] [address] [id number] [place] [address]66 Oct, [facility] [place] [facility] [address] [id number] [place] [address] Sep, [facility] [place] [facility] [address] [id number] [place] [address] 2541 Sep, [facility] [place] [facility] [address] [id number] [place] [address] 6961 Sep, [facility] [address] [id number] [place] [address] 3969 Sep, [facility] [place] [facility] [address] [id number] [place] [address] 1595 Sep, [facility] [place] [facility] [address] [id number] [place] [address] 6[address] Sep, [facility] [place] [facility] [address] [id number] [place] [address] 59[address] Aug, [facility] [address] [id number] [place] [address] 3076 Aug, [facility] [place] [facility] [address] [id number] [place] [address] July, [facility] [place] [facility] [address] [id number] [place] [address] 5[address] July, [facility] [place] [facility] [address] [id number] [place] [address] July, [facility] [place] [facility] [address] [id number] [place] [address] 8365 July, [facility] [place] [facility] [address] [id number] [place] [address] 1488 Jun, [facility] [place] [facility] [address] [id number] [place] [address]43 May, [facility] [place] [facility] [address] [id number], [place] [address] May, [facility] [place] [facility] [address] [id number] [place] [address] 68[address] May, [facility] [place] [facility] [address] [id number] [place] [address] 7476 Mar, [facility] [place] [facility] [address] [id number], [place] [address] Mar, [facility] [place] [facility] [address] [id number], [place] [address] Mar, [facility] [place] [facility] [address] [id number] [place] [address] 5941 Feb, [facility] [place] [facility] [address] [id number] [place] [address]- 5866 Feb, [facility] [place] [facility] [address] [id number] [place] [address] 4[address] Feb, [facility] [place] [facility] [address] [id number] [place] [address] 7130 Feb, [facility] [place] [facility] [address] [id number] [place] [address] 9649 Feb, [facility] [place] [facility] [address] [id number] [place] [address]- 5186 Feb, [facility] [id number] [place] [address] Feb, [facility] [place] [facility] [address] [id number] [place] [address]- 0720 Feb, [facility] [place] [facility] [address] [id number] [place] [address] 4918 Feb, [facility] [place] [facility] [address] [facility] [id number] [place] [address] 7045 Feb, [facility] [place] [facility] [address] [id number] [place] [address] 1407 Jan, [facility] [place] [facility] [address] [id number] [place] [address] 7566 Jan, [facility] [place] [facility] [address] [id number] [place] [address]- 3873 Jan, [facility] [place] [facility] [address] [id number] [place] [address]- 1103 Jan, [facility] [place] [facility] [address] [id number] [place] [address] Jan, [facility] [place] [facility] [address] [id number] [place] [address] 9660 Jan, [facility] [place] [facility] [address] [id number] [place] [address] 3994 Jan, [facility] [place] [facility] [address] [id number] [place] [address]- 9706 Jan, [facility] [place] [facility] [address] [id number] [place] [address]- 9643 Jan, [facility] [place] [facility] [address] [id number] [place] [address] 1612 Jan, [facility] [place] [facility] [address] [id number] [place] [address]- 9336 Dec, [facility] [place] [facility] [address] [id number] [place] [address]- 2658 Dec, [facility] [place] [facility] [address] [id number] [place] [address]- 7853 Nov, [facility] [place] [facility] [address] [id number] [place] [address]- 3699 24 Nov, 2011 [facility] [place] [facility] [address] [id number] [place] [address]- 2782 05 Nov, 2011 [facility] [place] [facility] [address] [id number] [place] [address]- 1052 Oct, [facility] [place] [facility] [address] [id number] [place] [address]- 8071 Oct, [facility] [place] [facility] [address] [id number] [place] [address]- 9071 Oct, [facility] [place] [facility] [address] [id number] [place] [address] Oct, [facility] [place] [facility] [address] [id number] [place] [address]- 8706 Aug, [facility] [place] [facility] [address] [id number] [place] [address]- 0700 15 Aug, 2011 [facility] [place] [facility] [address] [id number] [place] [address]- 2844 14 Aug, 2011 [facility] [place] [facility] [address] [id number] [place] [address]- 3861 07 Aug, 2011 [facility] [place] [facility] [address] [id number] [place] [address]- 3284 08 Jun, 2011 [facility] [place] [facility] [address] [id number] [place] [address]- 5123 May, [facility] [place] [facility] [address] [id number] [place] [address]- 6562 May, [facility] [place] [facility] [address] [id number] [place] [address]- 1720 20 Apr, 2011 [facility] [place] [facility] [address] [id number] [place] [address]- 7447 20 Apr, 2011 [facility] [place] [facility] [address] [id number] [place] [address]- 8927 15 Apr, 2011 [facility] [place] [facility] [address] [id number] [place] [address]- 5463 14 Apr, 2011 [facility] [place] [facility] [address] [id number] [place] [address]- 6786 24 Mar, 2011 [facility] [place] [facility] [address] [id number] [place] [address]- 7242 Mar, [facility] [place] [facility] [address] [id number] [place] [address]- 7887 19 Mar, 2011 [facility] [place] [facility] [address] [id number] [place] [address]- 0750 18 Mar, 2011 [facility] [place] [facility] [address] [id number] [place] [address]- 7688 13 Mar, 2011 [facility] [place] [facility] [address] [id number] [place] [address]- 1291 13 Mar, 2011 [facility] [place] [facility] [address] [id number] [place] [address]- 4118 Feb, [facility] [address] [id number] [place] [address]- 9628 Jan, [facility] [place] [facility] [address] [id number] [place] [address]- 1956 Jan, [facility] [address] [id number] [place] [address]- 4196 Jan, [facility] [place] [facility] [address] [id number] [place] [address]- 7246 Jan, [facility] [address] [id number] [place] [address]- 3489 Jan, [facility] [place] [facility] [address] [id number] [place] [address]- 2686 Dec, [facility] [address] [id number] [place] [address]- 7626 May, [facility] [address] [id number] [place] [address]- 0520 14 Apr, 2010 [facility] [place] [facility] [address] [id number] [place] [address]- 0543 Mar, [facility] [address] [id number] [place] [address]- 5294 Feb, [facility] [place] [facility] [address] [id number] [place] [address]- 2545 Feb, [facility] [place] [facility] [address] [id number] [place] [address]- 2546 14 Feb, 2010 [facility] [place] [facility] [address] [id number] [place] [address]- 8526 13 Feb, 2010 [facility] [place] [facility] [address] [id number] [place] [address]- 2546 11 Dec, 2009 [facility] [place] [facility] [address] [id number] [place] [address]- 0200 11 Dec, 2009 IMMUNIZATIONS No Known Immunizations SOCIAL HISTORY Never Assessed REASON FOR VISIT PLAN OF CARE VITAL SIGNS MEDICATIONS Medication Instructions Dosage Frequency Start Date End Date Duration Status OneTouch Ultra Test - test blood sugar 12h 19 Nov, 2016 Active RESULTS No Results PROCEDURES No Known [...]
--- OUTSIDE RECORDS SUMMARY | 2017-12-04 09:55 | XMS REPORT ---
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 Active Problem Coronary atherosclerosis of unspecified type of vessel, [place] or graft 414.00 Active Problem Family history of malignant neoplasm of gastrointestinal tract V16.0 Active Assessment Left shoulder pain M25.512 Active Assessment Right hip pain M25.551 Active Problem 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 Nov 12, 2014 Active Problem Irritable bowel syndrome 564.1 Active Problem Depressive disorder, not elsewhere classified 311 Active Problem Esophageal reflux 530.81 Active Problem Unspecified backache 724.5 Active Problem Unspecified essential hypertension 401.9 Active Problem Other and unspecified hyperlipidemia 272.4 Active Medications Medication Code System Code Instructions Start Date End Date Status Dosage Oxybutynin Chloride [facility] [address]-97 5 MG Orally Twice a day May 28, 2014 1 tablet Bentyl [facility] [address]-38 20 mg Dec 14, 2013 1 tablet by Oral route 4 times per day PRN 90 day supply NovoLog Flexpen [facility] [address]-48 100 UNIT/ML Subcutaneous 3 times a day 20 unit with meals buspirone ND 0 10 mg Mar 04, 2014 take 1-2 tablet by Oral route 3 times per day (1 in am, 1 at noon, 2 at hs) Quinapril HCl [facility] [address]-98 20 MG Once a day TAKE 1 TABLET [place] [address]-62 40 MG Orally Once a day 1 tablet Levemir FlexTouch [facility] 58446469410 100 UNIT/ML INJECT 42 UNITS [place] [address]-51 1000 MG Orally Three times a day 1 capsule C-PAP Machine NDC 0 N/A Once a day at night Nov 06, 2014 as directed Metoprolol Tartrate [facility] [address]-47 50 MG TAKE 1 TABLET TWICE DAILY tramadol NDC 0 50 mg May 30, 2014 take 1 tablet to 2 tabs by Oral route every 8 hours as needed PRN pain Gabapentin [facility] [address]-68 300 MG Orally Three times a day August 14, 2014 3 capsule Latuda [facility] [address]-92 40 MG Orally Once with evening meal Dec 19, 2014 1 tablet with food Nitrostat [facility] [address]-21 0.4 MG Sublingual not defined Vitamin E [facility] [address]-17 100 UNIT Orally Once a day 1 capsule Bydureon [facility] [address]-37 2 MG Subcutaneous once weekly August 06, 2014 2mg Metformin HCl [facility] [address]-24 500 MG Orally Twice a day July 16, 2014 1 tablet with meals Effexor XR [facility] [address]-14 150 MG Orally Once a day Oct 21, 2014 1 capsule with food Pantoprazole Sodium [facility] [address]-30 40 MG Orally August 14, 2014 1 tablet in the AM 2 tabs in PM Procedures Procedure Coding System Code Date Office Visit, Est Pt., Level 3 CPT-4 80505 Dec 19, 2014 Vital Signs Date/Time: Dec 19, 2014 Temperature 97.7 F Weight 209.5 lbs Height 67 in BMI 32.81 Index Blood Pressure Diastolic 86 mmHg Blood Pressure Systolic 132 mmHg Cardiac Monitoring Heart Rate 88 bpm Results No Known Results Summary Purpose eClinicalWorks Submission
--- OUTSIDE RECORDS SUMMARY | 2017-12-04 09:55 | XMS REPORT ---
Author Author JYOTSNA EMERY [facility] eClinicalWorks Address Unknown Phone Unavailable Care Team Providers Care Bodybuilder Name Role Phone JYOTSNA EMERY CP Unavailable [...] Coronary atherosclerosis of unspecified type of vessel, [place] or graft 414.00 Active Problem Dermatophytosis of nail 110.1 Active Medications Medication Code System Code Instructions Start Date End Date Status Dosage Metformin HCl [facility] [address]-03 500 MG Orally Twice a day July 16, 2014 1 tablet with meals Results No Known Results Summary Purpose eClinicalWorks Submission
--- OUTSIDE RECORDS SUMMARY | 2017-12-04 09:56 | XMS REPORT ---
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 Name Role Phone JYOTSNA EMERY Unavailable PROBLEMS Type Condition ICD9-CM Code ICC42-TX Code Onset Dates Condition Status SNOMED Code Problem Obstructive sleep apnea syndrome G47.33 Active 74069584 Problem Essential hypertension I10 Active 11400579 Problem Diabetes E11.9 Active 099341349 Problem Rotator cuff syndrome of right shoulder M75.101 Active 583680840588557 Problem Constipation, unspecified constipation type K59.00 Active 18888827 Problem [facility] current use of insulin Z79.4 Active 837777485 Problem Type 2 diabetes mellitus with hyperglycemia E11.65 Active 46347369 Problem Irritable bowel syndrome, unspecified type K58.9 Active 80985544 Problem Slow transit constipation K59.01 Active 32152118 Problem Gastroparesis K31.84 Active 889231192 Problem Barretts esophagus without dysplasia K22.70 Active 254634186 Problem BRITTANI (generalized anxiety disorder) F41.1 Active 91424015 Problem Bipolar disorder, current episode depressed, moderate F31.32 Active 121013689 Problem 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 Nov, Active 2437417 Problem Gastro-esophageal reflux disease without esophagitis K21.9 Active 156200313 Problem Panic disorder with agoraphobia F40.01 Active 51101243 Problem Type 2 diabetes mellitus with diabetic autonomic (poly)neuropathy E11.43 Active 559153705 ALLERGIES No Information SOCIAL HISTORY Never Assessed PLAN OF CARE VITAL SIGNS MEDICATIONS Medication Instructions Dosage Frequency Start Date End Date Duration Status Levemir FlexTouch 100 UNIT/ML Subcutaneous 2 times a day Inject 47units in AM and 42 in PM 12h 90 days Active RESULTS No Results PROCEDURES No Known procedures IMMUNIZATIONS No Known Immunizations MEDICAL (GENERAL) HISTORY Type Description Date Medical History diabetes mellitus Medical History hypertension Medical History hypercholesterolemia Medical History sleep apnea Medical History Eye exam 11/2014 Medical History bi-polar 1 Medical History Angina Medical History Gastroparesis Surgical History Hystorectomy 1995 Surgical History bilateral knee scopes Surgical History cholecystectomy Surgical History appendectomy Surgical History RT shoulder coller bone shaved Surgical History Heart attack and stents placed 2010 Surgical History Teeth removed Hospitalization History surgeries
--- OUTSIDE RECORDS SUMMARY | 2017-12-04 09:56 | XMS REPORT ---
Author Author JYOTSNA EMERY Organization [facility] Address [address] [place] [address] Care Team Providers Care Manager Work Name Role Phone JYOTSNA EMERY Unavailable PROBLEMS Type Condition ICD9-CM Code VUN57-ZF Code Onset Dates Condition Status SNOMED Code Problem Diabetes E11.9 Active 477658160 Problem Type 2 diabetes mellitus with hyperglycemia E11.65 Active 56382062 Problem Essential hypertension I10 Active 62229734 Problem Diabetic polyneuropathy associated with diabetes mellitus due to underlying condition E08.42 Active 32424698 Problem Rotator cuff syndrome of right shoulder M75.101 Active [id number] Problem Slow transit constipation K59.01 Active 59192784 Problem senior care current use of insulin Z79.4 Active 201366179 Problem Constipation, unspecified constipation type K59.00 Active 94231063 Problem Irritable bowel syndrome, unspecified type K58.9 Active 42557732 Problem Barretts esophagus without dysplasia K22.70 Active 619837205 Problem 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 Nov, Active 2590591 Problem Herniation of intervertebral disc at C5-C6 level M50.222 Active 162926973 Problem Gastroparesis K31.84 Active 233553872 Problem Bipolar disorder, current episode depressed, moderate F31.32 Active 791651010 Problem Gastro-esophageal reflux disease without esophagitis K21.9 Active 582175886 Problem Panic disorder with agoraphobia F40.01 Active 69026572 Problem Type 2 diabetes mellitus with diabetic autonomic (poly)neuropathy E11.43 Active 926928118 Problem BRITTANI (generalized anxiety disorder) F41.1 Active 57569809 Problem Obstructive sleep apnea syndrome G47.33 Active 26884674 ALLERGIES No Information ENCOUNTERS Encounter Location Date Diagnosis [facility] [address] [facility] [id number] [address] Jun, Type 2 diabetes mellitus with diabetic autonomic (poly) neuropathy E11.43 and Type 2 diabetes mellitus with hyperglycemia E11.65 [facility] [address] [address]- [address] May, [facility] [address] [address]- [address] May, Bipolar disorder, current episode depressed, moderate F31.32 [facility] [address] [address] May, [facility] [address] 15162- 3489 May, Diabetic polyneuropathy associated with diabetes mellitus due to underlying condition E08.42 [place] [address] 83125- 0166 Apr, [place] [address] 66480- 0907 Feb, Ganglion cyst of dorsum of right wrist M67.431 [place] [address] 16953- 1935 Jan, Other cyst of bone, right forearm M85.631 [place] [address] 36545- 4241 Jan, [place] [address] 34567- 7242 Jan, Diabetes E11.9 and Right forearm pain M79.631 [place] [address] 58176- 4722 Dec, Encounter for immunization Z23 [place] [address] 24572- 7300 Nov, [place] [address] 14098- 1642 Nov, Type 2 diabetes mellitus with hyperglycemia E11.65 [place] [address] 83101- 6416 Nov, Severe pain of right shoulder M25.511 [facility] [address] [place] [id number] [place] [address] 54691- 0430 Oct, Diabetes E11.9 [facility] [address] [place] [id number] [place] [address] 68970- 7682 Oct, Diabetes E11.9 [facility] [address] [place] [id number] [place] [address] 68152- 8487 Oct, [facility] [address] [place] [id number] [place] [address] 76394- 3732 Oct, [facility] [address] [place] [id number] [place] [address] 56106- 9278 Oct, Rotator cuff syndrome of right shoulder M75.101 [place] [address] [id number] [place] [address] 03545- 1816 Oct, Diabetes E11.9 [facility] [address] [place] [id number] [place] [address] 76963- 8763 Sep, Type 2 diabetes mellitus with hyperglycemia E11.65 ; Obstructive sleep apnea syndrome G47.33 and Constipation, unspecified constipation type K59.00 [facility] [address] [place] [id number] [place] [address] 85983- 3058 Aug, [facility] [address] [place] [id number] [place] [address] 68121- 7614 Aug, [facility] [address] [place] [id number] [place] [address] 93673- 0239 Aug, Type 2 diabetes mellitus with diabetic autonomic (poly) neuropathy E11.43 [facility] [address] [place] [id number] [place] [address] 28443- 4841 July, Type 2 diabetes mellitus with hyperglycemia E11.65 [facility] [address] [place] [id number] [place] [address] 73445- 3099 Jun, Slow transit constipation K59.01 [facility] [address] [place] [address]- 9[address] May, [place] [address] [place] [id number] [place] [address] 65722- 3416 May, Diabetes E11.9 [place] [address] 97158- 8450 May, [facility] [place] [address] 86046 -1532 Apr, [place] [address] 12012- 4464 Apr, Gastroenteritis K52.9 [facility] [place] [address] 17868 -2951 Apr, Abdominal pain, unspecified location R10.9 ; Gastroenteritis K52.9 ; Type 2 diabetes mellitus with hyperglycemia E11.65 and intermediate designer current use of insulin Z79.4 [place] [address] [place] [id number] [place] [address] 46875- 7300 Apr, [place] [address] 20999- 3435 Apr, [place] [address] [place] [id number] [place] [address] 90419- 4504 Apr, Diabetes E11.9 ; Gastroparesis K31.84 ; Generalized abdominal pain R10.84 ; Essential hypertension I10 ; Bronchitis J40 and Other fatigue R53.83 [facility] [address] [place] [id number] [place] [address] 43796 -4400 Mar, [facility] [place] [address] 96700 -9497 Mar, [facility] [place] [address] 87842 -1525 Mar, Laceration of scalp without foreign body, initial encounter S01.01XA ; Laceration of face, initial encounter S01.81XA and Encounter for immunization Z23 [place] [address] [place] [id number] [place] [address] 31116- 1649 Mar, Type 2 diabetes mellitus with diabetic autonomic (poly) neuropathy E11.43 [place] [address] [place] [id number] [place] [address] 98727- 5210 Feb, [place] [address] [place] [id number] [place] [address] 81489- 2676 Feb, Internal hemorrhoids K64.8 and Obstructive sleep apnea syndrome G47.33 [place] [address] [place] [id number] [place] [address] 33134- 3111 Feb, SI (sacroiliac) joint dysfunction M53.[address] 97367- 8519 Jan, [place] [address] 60573- 3630 Dec, Gastroparesis K31.84 [place] [address] 31941- 8298 Dec, [address] 00727- 7054 Dec, Right hip pain M25.551 ; Nose congested R09.81 and Encounter for immunization Z23 [place] [address] [place] [id number] [place] [address] 46682- 9627 Nov, Diabetes E11.9 ; Gastroparesis K31.84 ; Type 2 diabetes mellitus with diabetic autonomic (poly)neuropathy E11.43 and Obstructive sleep apnea syndrome G47.33 [place] [address] [place] [id number] [place] [address] 91024- 4391 Oct, [place] [address] 56614- 5071 Aug, [place] [address] [place] [id number] [place] [address] 21359- 9566 July, Gastro-esophageal reflux disease without esophagitis K21.9 [facility] [address] [place] [id number] [place] [address] 03333- 6639 July, [facility] [address] [place] [id number] [place] [address] 05622- 8332 July, Diabetes E11.9 [facility] [address] [place] [id number] [place] [address] 96395- 5636 July, Diabetes E11.9 ; Obstructive sleep apnea syndrome G47.33 and Neuropathy G62.9 [facility] [address] [place] [id number] [place] [address] 36155- 0311 July, Bipolar disorder, current episode depressed, moderate F31.32 ; BRITTANI (generalized anxiety disorder) F41.1 and Panic disorder with agoraphobia F40.01 [place] [address] [place] [id number] [place] [address] 99918- 2731 Jun, [facility] [address] [place] [id number] [place] [address] 22504- 0443 Jun, [facility] [address] [place] [id number] [place] [address] 63591- 8241 Jun, [facility] [address] [place] [id number] [place] [address] 11017- 4623 Jun, [facility] [address] [place] [id number] [place] [address] [id number] May, Encounter for dental examination and cleaning without abnormal findings Z01.20 [facility] [address] [place] [id number] [place] [address] 81709- 6897 Apr, [facility] [address] [place] [id number] [place] [address] 16277- 8232 Apr, [facility] [address] [place] [id number] [place] [address] 61570- 9758 Apr, Bipolar disorder, current episode depressed, moderate F31.32 ; BRITTANI (generalized anxiety disorder) F41.1 and Panic disorder with agoraphobia F40.01 [facility] [address] [place] [id number] [place] [address] 04041- 4476 04 Apr, 2015 Hyperlipidemia, unspecified E78.5 [facility] [address] [place] [id number] [place] [address] [id number] Apr, Dental caries K02.9 [facility] [address] [place] [id number] [place] [address] [id number] Feb, Dental caries K02.9 and Encounter for dental examination Z01.20 [place] [address] [place] [id number] [place] [address] 26813- 2054 Feb, [place] [address] 76209- 1109 15 Feb, 2015 Diabetes E11.9 ; Insulin long-term use Z79.4 ; Diabetic polyneuropathy associated with diabetes mellitus due to underlying condition E08.42 and Barretts esophagus with high grade dysplasia K22.711 [place] [id number] [place] [address] 31098- 5749 Feb, [place] [id number] [place] [address] 28770- 7635 Jan, Pain in right hip M25.551 and Other chronic pain G89.29 [place] [id number] [place] [address] 16199- 1469 Jan, Impingement syndrome, shoulder, left M75.42 [place] [id number] [place] [address] 54326- 0602 Jan, Bipolar disorder, current episode depressed, moderate F31.32 ; Generalized anxiety disorder F41.1 and Agoraphobia with panic disorder F40.[address] 31772- 0162 Jan, [place] [address] [place] [id number] [place] [address] 79845- 1886 Dec, [place] [address] 39656- 0894 Dec, [facility] [address] [address]- 3884 Dec, Right hip pain M25.551 and Left shoulder pain M25.512 [facility] [address] [place] [id number] [address]- 9132 Dec, Bipolar 1 disorder, depressed, moderate F31.32 ; BRITTANI ( generalized anxiety disorder) F41.1 and Panic disorder with agoraphobia F40.01 [facility] [address] [place] [id number] [place] [address] 01775- 7520 Dec, [facility] [address] [place] [id number] [place] [address] 03482- 7971 Dec, [facility] [address] [id number] [place] [address] 54243- 4117 Nov, [facility] [address] [place] [id number] [place] [address] 58022- 6353 18 Nov, 2014 [facility] [address] [place] [id number] [place] [address] 38995- 1575 Nov, [facility] [address] [place] [id number] [place] [address] 96499- 8454 14 Nov, 2014 Diabetes 250.00 [facility] [address] [place] [id number] [place] [address] 60439- 3521 Oct, [facility] [id number] [place] [address] 53609- 7118 Oct, [facility] [address] [place] [id number] [place] [address] 95684- 9489 Oct, [facility] [address] [place] [id number] [place] [address] 60811- 6408 Oct, [facility] [address], [place] [address]- 5724 Oct, [facility] [address] [place] [id number] [place] [address] 58830- 6852 Oct, [facility] [address], [place] [address]- 4068 Oct, Diabetes 250.00 ; Insomnia 780.52 and Forgetfulness 780.99 [facility] [address], [place] [address]- 2965 Oct, Depressive disorder, not elsewhere classified 311 [facility] [address] [place] [id number] [place] [address] 39595- 4661 Sep, [facility] [address] [id number] [address]- 0481 Sep, [facility] [address] [place] [id number] [place] [address] 94179- 8224 Sep, [facility] [address] [id number] [address]- 3301 Sep, [facility] [address] [place] [id number] [place] [address] 68432- 4562 Sep, [facility] [address], [place] [address]- 9461 Sep, [facility] [address] [place] [id number] [place] [address] 097939- 5388 Sep, [facility] [address], [place] [address]- 1053 Aug, [facility] [address] [id number] Aug, Dental examination V72.2 [facility] [address], [place] [address]- 8632 Aug, [facility] [address] [id number] [address]- 8436 Aug, [facility] [address], [place] [address]- 9120 July, [facility] [address] [place] [id number] [place] [address] 32135- 6155 July, [facility] [address] [id number] [place] [address]- 5034 July, [facility] [place] [facility] [address] [id number] [place] [address]- 4729 July, [facility] [place] [facility] [address] [facility] [id number] [place] [address]- 4050 Jun, [facility] [place] [facility] [address] [id number] [place] [address]- 0564 Jun, [facility] [place] [facility] [address] [id number] [place] [address]- 1740 May, [facility] [place] [facility] [address] [id number] [place] [address]- 8336 May, [facility] [place] [facility] [address] [facility] [id number] [place] [address]- 0708 May, [facility] [place] [facility] [address] [facility] [id number] [place] [address]- 2369 May, [facility] [place] [facility] [address] [facility] [id number] [place] [address]- 1809 May, [facility] [place] [facility] [address] [facility] [id number] [place] [address]- 4755 May, [facility] [place] [facility] [address] [id number] [place] [address]- 6220 16 May, 2014 [facility] [place] [facility] [address] [facility] [id number], [place] [address]- 4671 May, [facility] [place] [facility] [address] [id number] [place] [address]- 9248 Apr, [facility] [place] [facility] [address] [id number] [place] [address]- 0611 Apr, [facility] [place] [facility] [address] [facility] [id number], [place] [address]- 5814 Apr, [facility] [place] [facility] [address] [id number] [place] [address]- 9172 Apr, [facility] [place] [facility] [address] [id number] [place] [address]- 9366 Apr, [facility] [place] [facility] [address] [id number] [place] [address]- 0804 Apr, [facility] [place] [facility] [address] [id number] [place] [address]- 3602 Mar, [facility] [place] [facility] [address] [id number] [place] [address]- 6477 Mar, [facility] [place] [facility] [address] [id number] [place] [address]- 8315 Mar, [facility] [place] [facility] [address] [id number] [place] [address]- 5117 Mar, [facility] [place] [facility] [address] [id number] [place] [address]- 1233 Mar, [facility] [place] [facility] [address] [id number] [place] [address]- 1903 Mar, [facility] [place] [facility] [address] [id number] [place] [address]- 6385 Mar, [facility] [place] [facility] [address] [id number] [place] [address]- 2839 Mar, [facility] [place] [facility] [address] [id number] [place] [address]- 5926 Mar, [facility] [place] [facility] [address] [id number] [place] [address]- 0177 Mar, [facility] [place] [facility] [address] [id number] [place] [address]- 5765 Mar, [facility] [place] [facility] [address] [id number] [place] [address]- 6726 Mar, [facility] [place] [facility] [address] [id number] [place] [address]- 8902 Mar, [facility] [place] [facility] [address] [id number] [place] [address]- 1654 Mar, [facility] [place] [facility] [address] [id number] [place] 7198 Feb, [facility] [place] [facility] [address] [id number] [place] [address]- 1036 Feb, [facility] [place] [facility] [address] [id number] [place] [address]- 3249 Feb, [facility] [place] [facility] [address] [id number] [place] [address]- 6789 Feb, [facility] [place] [facility] [address] [id number] [place] [address]- 3429 Feb, [facility] [place] [facility] [address] [id number] [place] [address]- 8928 Feb, [facility] [place] [facility] [address] [id number] [place] [address]- 2026 16 Feb, 2014 [facility] [place] [facility] [address] [id number] [place] [address]- 3143 Feb, [facility] [place] [facility] [address] [id number] [place] [address]- 2743 16 Feb, 2014 [facility] [place] [facility] [address] [id number] [place] [address]- 2278 16 Feb, 2014 [facility] [place] [facility] [address] [id number] [place] [address]- 1432 10 Feb, 2014 [facility] [place] [facility] [address] [id number] [place] [address]- 3126 Feb, [facility] [place] [facility] [address] [id number] [place] 7533 Feb, [facility] [place] [facility] [address] [id number] [place] 3878 Feb, [facility] [place] [facility] [address] [id number] [place] [address]- 2959 Jan, [facility] [place] [facility] [address] [id number] [place] [address]- 7902 Jan, [facility] [place] [facility] [address] [id number] [place] [address] 254 Jan, [facility] [place] [facility] [address] [id number] [place] [address]- 5406 Jan, [facility] [place] [facility] [address] [id number] [place] [address]- 7064 Dec, [facility] [place] [facility] [address] [id number] [place] [address]- 5572 Dec, [facility] [place] [facility] [address] [id number] [place] 1382 Dec, [facility] [place] [facility] [address] [id number] [place] [address]- 3796 Dec, [facility] [place] [facility] [address] [id number] [place] [address]- 3691 Dec, [facility] [place] [facility] [address] [id number] [place] [address]- 1122 Dec, [facility] [place] [facility] [address] [id number] [place] [address]- 9037 Dec, [facility] [place] [facility] [address] [id number] [place] [address]- 9395 Dec, [facility] [place] [facility] [address] [id number] [place] [address]- 6738 30 Nov, 2013 [facility] [place] [facility] [address] [id number] [place] [address]- 1553 17 Nov, 2013 [facility] [place] [facility] [address] [id number] [place] [address] 2548 17 Nov, 2013 [facility] [place] [facility] [address] [id number] [place] [address]- 5732 Nov, [facility] [place] [facility] [address] [id number] [place] [address]- 3328 Nov, [facility] [place] [facility] [address] [id number] [place] [address]- 9541 Oct, [facility] [place] [facility] [address] [id number] [place] [address]- 0503 Oct, [facility] [place] [facility] [address] [id number] [place] [address] Sep, [facility] [place] [facility] [address] [id number] [place] [address] Sep, [facility] [place] [facility] [address] [id number] [place] [address] Sep, [facility] [place] [facility] [address] [id number] [place] [address] Sep, [facility] [place] [facility] [address] [id number] [place] [address] Sep, [facility] [place] [facility] [address] [id number] [place] [address] Sep, [facility] [place] [facility] [address] [id number] [place] [address] Sep, [facility] [place] [facility] [address] [id number] [place] [address] Sep, [facility] [place] [facility] [address] [id number] [place] [address] Sep, [facility] [place] [facility] [address] [id number] [place] [address] Sep, [facility] [place] [facility] [address] [id number] [place] [address] Sep, [facility] [place] [facility] [address] [id number] [place] [address] Sep, [facility] [place] [facility] [address] [id number] [place] [address] Sep, [facility] [place] [facility] [address] [id number] [place] [address] Sep, [facility] [place] [facility] [address] [id number] [place] [address] July, [facility] [place] [facility] [address] [id number] [place] [address] July, [facility] [place] [facility] [address] [id number] [place] [address] July, [facility] [place] [facility] [address] [id number] [place] [address] July, [facility] [place] [facility] [address] [id number] [place] [address] July, [facility] [place] [facility] [address] [id number] [place] [address] July, [facility] [place] [facility] [address] [id number] [place] [address] July, [facility] [place] [facility] [address] [id number] [place] [address] July, [facility] [place] [facility] [address] [id number] [place] [address] Jun, [facility] [place] [facility] [address] [id number] [place] [address] Jun, [facility] [place] [facility] [address] [id number] [place] [address] Jun, [facility] [place] [facility] [address] [id number] [place] [address] Jun, [facility] [place] [facility] [address] [id number] [place] [address] Jun, [facility] [place] [facility] [address] [id number] [place] [address] Jun, [facility] [place] [facility] [address] [id number] [place] [address] Jun, [facility] [place] [facility] [address] [id number] [place] [address] Jun, [facility] [place] [facility] [address] [id number] [place] [address] 27 May, 2013 [facility] [place] [facility] [address] [id number] [place] [address] 27 May, 2013 [facility] [place] [facility] [address] [id number] [place] [address] 21 May, 2013 [facility] [place] [facility] [address] [id number] [place] [address] 21 May, 2013 [facility] [place] [facility] [address] [id number] [place] [address] 20 May, 2013 [facility] [place] [facility] [address] [id number] [place] [address] 20 May, 2013 [facility] [place] [facility] [address] [id number] [place] [address] 19 May, 2013 [facility] [place] [facility] [address] [id number] [place] [address] 19 May, 2013 [facility] [place] [facility] [address] [id number] [place] [address] 17 May, 2013 [facility] [place] [facility] [address] [id number] [place] [address] 17 May, 2013 [facility] [place] [facility] [address] [id number] [place] [address] 17 May, 2013 [facility] [place] [facility] [address] [id number] [place] [address] 17 May, 2013 [facility] [place] [facility] [address] [id number] [place] [address] 12 May, 2013 [facility] [place] [facility] [address] [id number] [place] [address] 1984 May, [facility] [place] [facility] [address] [id number] [place] [address] May, [facility] [place] [facility] [address] [id number] [place] [address] 74[address] May, [facility] [place] [facility] [address] [id number] [place] [address] Apr, [facility] [place] [facility] [address] [id number] [place] [address] Apr, [facility] [place] [facility] [address] [id number] [place] [address] Mar, [facility] [place] [facility] [address] [id number] [place] [address] 9746 Mar, [facility] [place] [facility] [address] [id number] [place] [address]- 78[address] Mar, [facility] [place] [facility] [address] [id number] [place] [address] 9703 Mar, [facility] [place] [facility] [address] [id number] [place] [address]- 5286 Mar, [facility] [place] [facility] [address] [id number] [place] [address]- 6894 Mar, [facility] [place] [facility] [address] [id number], [place] [address]- [address] Feb, [facility] [place] [facility] [address] [id number] [place] [address]- 8611 Feb, [facility] [place] [facility] [address] [id number] [place] [address] Feb, [facility] [place] [facility] [address] [id number] [place] [address] Feb, [facility] [place] [facility] [address] [id number] [place] [address] Feb, [facility] [place] [facility] [address] [id number] [place] [address] 2549 Feb, [facility] [address] [id number] [place] [address]- 8715 Jan, [facility] [place] [facility] [address] [id number] [place] [address]- 2329 Jan, [facility] [address] [id number] [place] [address]- 0245 Jan, [facility] [place] [facility] [address] [id number] [place] [address]- 1759 Jan, [facility] [address] [id number] [place] [address]- 8252 Jan, [facility] [place] [facility] [address] [id number] [place] [address]- 7250 Jan, [facility] [place] [facility] [address] [id number] [place] [address]- 7919 Jan, [facility] [address] [id number] [place] [address]- [address]781 Dec, [facility] [place] [facility] [address] [id number] [place] [address]- 9384 Dec, [facility] [address] [id number] [place] [address]01 Dec, [facility] [place] [facility] [address] [id number] [place] [address]- 2218 Nov, [facility] [place] [facility] [address] [id number] [place] [address] 4308 Oct, [facility] [place] [facility] [address] [id number] [place] [address] 1457 Sep, [facility] [place] [facility] [address] [id number] [place] [address]- 2547 Sep, [facility] [place] [facility] [address] [id number] [place] [address]- [address]99 Sep, [facility] [address] [id number] [place] [address]- 6572 Sep, [facility] [place] [facility] [address] [id number] [place] [address]113 Sep, [facility] [place] [facility] [address] [id number] [place] [address]- 7890 Sep, [facility] [place] [facility] [address] [id number] [place] [address]- 1747 Aug, [facility] [address] [id number] [place] [address]- 3637 Aug, [facility] [place] [facility] [address] [id number] [place] [address]259 July, [facility] [place] [facility] [address] [id number] [place] [address]- 8551 July, [facility] [place] [facility] [address] [id number] [place] [address]- 1095 July, [facility] [place] [facility] [address] [id number] [place] [address] 286[address] July, [facility] [place] [facility] [address] [id number] [place] [address]- [address] Jun, [facility] [place] [facility] [address] [id number] [place] [address]- 5017 May, [facility] [place] [facility] [address] [id number], [place] [address] 6[address] May, [facility] [place] [facility] [address] [id number] [place] [address]- 2017 May, [facility] [place] [facility] [address] [id number] [place] [address] 1316 Mar, [facility] [place] [facility] [address] [id number], [place] [address]609 Mar, [facility] [place] [facility] [address] [id number], [place] [address] 39[address] Mar, [facility] [place] [facility] [address] [id number] [place] [address]- 6254 Feb, [facility] [place] [facility] [address] [id number] [place] [address]- 5716 Feb, [facility] [place] [facility] [address] [id number] [place] [address]- 6446 Feb, [facility] [place] [facility] [address] [id number] [place] [address] 4077 Feb, [facility] [place] [facility] [address] [id number] [place] [address]- 6883 Feb, [facility] [place] [facility] [address] [id number] [place] [address]- 4935 Feb, [facility] [id number] [place] [address]- [address] Feb, [facility] [place] [facility] [address] [id number] [place] [address]- 4787 Feb, [facility] [place] [facility] [address] [id number] [place] [address]- 4208 Feb, [facility] [place] [facility] [address] [facility] [id number] [place] [address]- 7021 Feb, [facility] [place] [facility] [address] [id number] [place] [address]- 1152 Jan, [facility] [place] [facility] [address] [id number] [place] [address]- 3065 Jan, [facility] [place] [facility] [address] [id number] [place] [address]- 0900 Jan, [facility] [place] [facility] [address] [id number] [place] [address]- 2131 Jan, [facility] [place] [facility] [address] [id number] [place] [address]- [address]24 Jan, [facility] [place] [facility] [address] [id number] [place] [address]- 4129 Jan, [facility] [place] [facility] [address] [id number] [place] [address]- 2753 Jan, [facility] [place] [facility] [address] [id number] [place] [address]- 7276 Jan, [facility] [place] [facility] [address] [id number] [place] [address]- 1763 Jan, [facility] [place] [facility] [address] [id number] [place] [address]- 5036 Jan, [facility] [place] [facility] [address] [id number] [place] [address]- 5743 Dec, [facility] [place] [facility] [address] [id number] [place] [address]- 5001 Dec, [facility] [place] [facility] [address] [id number] [place] [address]- 2541 Nov, [facility] [place] [facility] [address] [id number] [place] [address]- 7621 24 Nov, 2011 [facility] [place] [facility] [address] [id number] [place] [address]- 6691 05 Nov, 2011 [facility] [place] [facility] [address] [id number] [place] [address]- 3659 Oct, [facility] [place] [facility] [address] [id number] [place] [address]- 8313 Oct, [facility] [place] [facility] [address] [id number] [place] [address]- 9268 Oct, [facility] [place] [facility] [address] [id number] [place] [address] Oct, [facility] [place] [facility] [address] [id number] [place] [address]- 2576 Aug, [facility] [place] [facility] [address] [id number] [place] [address]- 8282 15 Aug, 2011 [facility] [place] [facility] [address] [id number] [place] [address]- 8702 14 Aug, 2011 [facility] [place] [facility] [address] [id number] [place] [address]- 4525 07 Aug, 2011 [facility] [place] [facility] [address] [id number] [place] [address]- 2832 08 Jun, 2011 [facility] [place] [facility] [address] [id number] [place] [address]- 4928 May, [facility] [place] [facility] [address] [id number] [place] [address]- 6745 May, [facility] [place] [facility] [address] [id number] [place] [address]- 2355 20 Apr, 2011 [facility] [place] [facility] [address] [id number] [place] [address]- 8960 20 Apr, 2011 [facility] [place] [facility] [address] [id number] [place] [address]- 4079 15 Apr, 2011 [facility] [place] [facility] [address] [id number] [place] [address]- 7366 14 Apr, 2011 [facility] [place] [facility] [address] [id number] [place] [address]- 3866 24 Mar, 2011 [facility] [place] [facility] [address] [id number] [place] [address]- 3405 Mar, [facility] [place] [facility] [address] [id number] [place] [address]- 0406 19 Mar, 2011 [facility] [place] [facility] [address] [id number] [place] [address]- 1102 18 Mar, 2011 [facility] [place] [facility] [address] [id number] [place] [address]- 8843 13 Mar, 2011 [facility] [place] [facility] [address] [id number] [place] [address]- 7246 13 Mar, 2011 [facility] [place] [facility] [address] [id number] [place] [address]- 8438 Feb, [facility] [address] [id number] [place] [address]- 1651 Jan, [facility] [place] [facility] [address] [id number] [place] [address]- 1126 Jan, [facility] [address] [id number] [place] [address]- 3356 Jan, [facility] [place] [facility] [address] [id number] [place] [address]- 7058 Jan, [facility] [address] [id number] [place] [address]- 0284 Jan, [facility] [place] [facility] [address] [id number] [place] [address]- 1347 Dec, [facility] [address] [id number] [place] [address]- 4092 May, [facility] [address] [id number] [place] [address]- 1675 14 Apr, 2010 [facility] [place] [facility] [address] [id number] [place] [address]- 9548 Mar[facility] [address] [id number] [place] [address]- 5256 Feb, [facility] [place] [facility] [address] [id number] [place] [address]- 254 Feb, [facility] [place] [facility] [address] [id number] [place] [address]- 2546 14 Feb, 2010 [facility] [place] [facility] [address] [id number] [place] [address]- 6246 13 Feb, 2010 [facility] [place] [facility] [address] [id number] [place] [address]- 2546 11 Dec, 2009 [facility] [place] [facility] [address] [id number] [place] [address]- 5992 Dec, IMMUNIZATIONS No Known Immunizations SOCIAL HISTORY Never Assessed REASON FOR VISIT Eye Exam PLAN OF CARE VITAL SIGNS MEDICATIONS Unknown [...]
--- OUTSIDE RECORDS SUMMARY | 2017-12-04 09:57 | XMS REPORT ---
Author Author JYOTSNA EMERY Organization [facility] Address [address] [place] [address] Care Team Providers Care Last Scourer Name Role Phone JYOTSNA EMERY Unavailable PROBLEMS Type Condition ICD9-CM Code [id number] Code Onset Dates Condition Status SNOMED Code Problem Diabetes E11.9 Active 606161045 Problem Type 2 diabetes mellitus with hyperglycemia E11.65 Active 95129003 Problem Essential hypertension I10 Active 97349806 Problem Diabetic polyneuropathy associated with diabetes mellitus due to underlying condition E08.42 Active 21036339 Problem Rotator cuff syndrome of right shoulder M75.101 Active [id number] Problem Slow transit constipation K59.01 Active 67362344 Problem FCI current use of insulin Z79.4 Active 518222564 Problem Constipation, unspecified constipation type K59.00 Active 83261274 Problem Irritable bowel syndrome, unspecified type K58.9 Active 09051735 Problem Barretts esophagus without dysplasia K22.70 Active 914454223 Problem 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 Nov, Active 2065673 Problem Herniation of intervertebral disc at C5-C6 level M50.222 Active 964327769 Problem Gastroparesis K31.84 Active 940730457 Problem Bipolar disorder, current episode depressed, moderate F31.32 Active 104968469 Problem Gastro-esophageal reflux disease without esophagitis K21.9 Active 791450709 Problem Panic disorder with agoraphobia F40.01 Active 26917436 Problem Type 2 diabetes mellitus with diabetic autonomic (poly)neuropathy E11.43 Active 716464487 Problem BRITTANI (generalized anxiety disorder) F41.1 Active 44299424 Problem Obstructive sleep apnea syndrome G47.33 Active 86923187 ALLERGIES No Information ENCOUNTERS Encounter Location Date Diagnosis [facility] [address] [facility] [id number] [address] Jun, Type 2 diabetes mellitus with diabetic autonomic (poly) neuropathy E11.43 and Type 2 diabetes mellitus with hyperglycemia E11.65 [facility] [address] [address] May, [facility] [address] [address] May, Bipolar disorder, current episode depressed, moderate F31.32 [facility] WALK IN [facility] [address] [address] May, [facility] [address] [address]- [address] May, Diabetic polyneuropathy associated with diabetes mellitus due to underlying condition E08.42 [place] [address] [address]- 59[address] Apr, [place] [address] 47903- 8822 Feb, Ganglion cyst of dorsum of right wrist M67.431 [place] [address] 89779- 3570 Jan, Other cyst of bone, right forearm M85.631 [place] [address] 76694- 4046 Jan, [place] [address] [address]- 7633 Jan, Diabetes E11.9 and Right forearm pain M79.631 [place] [address] [address]35- 9765 Dec, Encounter for immunization Z23 [place] [address] 24276- 2509 Nov, [place] [address] 44268- 5731 Nov, Type 2 diabetes mellitus with hyperglycemia E11.65 [place] [address] [address]22- 8838 Nov, Severe pain of right shoulder M25.511 [facility] [address] [place] [id number] [place] [address] 47059- 7291 Oct, Diabetes E11.9 [facility] [address] [place] [id number] [place] [address] 86841- 3980 Oct, Diabetes E11.9 [facility] [address] [place] [id number] [place] [address] 82407- 2405 Oct, [facility] [address] [place] [id number] [place] [address] 20774- 1015 Oct, [facility] [address] [place] [id number] [place] [address] 73595- 2379 Oct, Rotator cuff syndrome of right shoulder M75.101 [place] [address] [place] [id number] [place] [address] 55374- 6887 Oct, Diabetes E11.9 [facility] [address] [place] [id number] [place] [address] 83870- 9267 Sep, Type 2 diabetes mellitus with hyperglycemia E11.65 ; Obstructive sleep apnea syndrome G47.33 and Constipation, unspecified constipation type K59.00 [facility] [address] [place] [id number] [place] [address] 74579- 2999 Aug, [facility] [address] [place] [id number] [place] [address] 52595- 3661 Aug, [facility] [address] [place] [id number] [place] [address] 51202- 2568 Aug, Type 2 diabetes mellitus with diabetic autonomic (poly) neuropathy E11.43 [facility] [address] [place] [id number] [place] [address] 89615- 0620 July, Type 2 diabetes mellitus with hyperglycemia E11.65 [facility] [address] [place] [id number] [place] [address] 23043- 8601 Jun, Slow transit constipation K59.01 [facility] [address] [place] [address] May, [place] [address] [place] [id number] [place] [address] 37702- 2237 May, Diabetes E11.9 [place] [address] 85156- 0231 May, [facility] WALK IN [place] [address] 81818 -4835 Apr, [place] [address] 62268- 4229 Apr, Gastroenteritis K52.9 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 WALK IN [place] [address] 64852 -6361 Mar, [facility] WALK IN [place] [address] 02844 -0572 Mar, Laceration of scalp without foreign body, initial encounter S01.01XA ; Laceration of face, initial encounter S01.81XA and Encounter for immunization Z23 [place] [address] [place] [id number] [place] [address] 05172- 9727 Mar, Type 2 diabetes mellitus with diabetic autonomic (poly) neuropathy E11.43 [place] [address] [place] [id number] [place] [address] 70350- 3796 Feb, [place] [address] [place] [id number] [place] [address] 44521- 0154 Feb, Internal hemorrhoids K64.8 and Obstructive sleep apnea syndrome G47.33 [place] [address] [place] [id number] [place] [address] 84824- 7577 Feb, SI (sacroiliac) joint dysfunction M53.[address] 70192- 0725 Jan, [place] [address] 50324- 4386 Dec, Gastroparesis K31.84 [place] [address] 39875- 4833 Dec, [address] [address]13- 7087 Dec, Right hip pain M25.551 ; Nose congested R09.81 and Encounter for immunization Z23 [place] [address] [place] [id number] [place] [address] 17762- 8698 Nov, Diabetes E11.9 ; Gastroparesis K31.84 ; Type 2 diabetes mellitus with diabetic autonomic (poly)neuropathy E11.43 and Obstructive sleep apnea syndrome G47.33 [place] [address] [place] [id number] [place] [address] 64715- 0980 Oct, [place] [address] 84747- 8664 Aug, [place] [address] [place] [id number] [place] [address] 63744- 2296 July, Gastro-esophageal reflux disease without esophagitis K21.9 [facility] [address] [place] [id number] [place] [address] 71840- 5522 July, [facility] [address] [place] [id number] [place] [address] 31072- 6873 July, Diabetes E11.9 [facility] [address] [place] [id number] [place] [address] 75130- 2356 July, Diabetes E11.9 ; Obstructive sleep apnea syndrome G47.33 and Neuropathy G62.9 [facility] [address] [place] [id number] [place] [address] 07671- 2264 July, Bipolar disorder, current episode depressed, moderate F31.32 ; BRITTANI (generalized anxiety disorder) F41.1 and Panic disorder with agoraphobia F40.01 [place] [address] [place] [id number] [place] [address] 84179- 7262 Jun, [facility] [address] [place] [id number] [place] [address] 23601- 4675 Jun, [facility] [address] [place] [id number] [place] [address] 45897- 4515 Jun, [facility] [address] [place] [id number] [place] [address] 66356- 7060 Jun, [facility] [address] [place] [id number] [place] [address] [id number] May, Encounter for dental examination and cleaning without abnormal findings Z01.20 [facility] [address] [place] [id number] [place] [address] 85859- 6615 Apr, [facility] [address] [place] [id number] [place] [address] 10735- 1491 Apr, [facility] [address] [place] [id number] [place] [address] 64860- 5548 Apr, Bipolar disorder, current episode depressed, moderate F31.32 ; BRITTANI (generalized anxiety disorder) F41.1 and Panic disorder with agoraphobia F40.01 [facility] [address] [place] [id number] [place] [address] 29730- 5662 04 Apr, 2015 Hyperlipidemia, unspecified E78.5 [facility] [address] [place] [id number] [place] [address] [id number] Apr, Dental caries K02.9 [facility] [address] [place] [id number] [place] [address] [id number] Feb, Dental caries K02.9 and Encounter for dental examination Z01.20 [place] [address] [place] [id number] [place] [address] 38134- 8149 Feb, [place] [address] 54152- 6982 15 Feb, 2015 Diabetes E11.9 ; Insulin long-term use Z79.4 ; Diabetic polyneuropathy associated with diabetes mellitus due to underlying condition E08.42 and Barretts esophagus with high grade dysplasia K22.711 [place] [id number] [place] [address] 27705- 3001 Feb, [place] [id number] [place] [address] 12529- 6246 Jan, Pain in right hip M25.551 and Other chronic pain G89.29 [place] [id number] [place] [address] 23792- 0967 Jan, Impingement syndrome, shoulder, left M75.42 [place] [id number] [place] [address] 38069- 0321 Jan, Bipolar disorder, current episode depressed, moderate F31.32 ; Generalized anxiety disorder F41.1 and Agoraphobia with panic disorder F40.[address] 76739- 2292 Jan, [place] [address] [place] [id number] [place] [address] 19241- 9639 Dec, [place] [address] 97959- 7685 Dec, [facility] [address] [address]- 6260 Dec, Right hip pain M25.551 and Left shoulder pain M25.512 [facility] [address] [place] [id number] [address]- 1272 Dec, Bipolar 1 disorder, depressed, moderate F31.32 ; BRITTANI ( generalized anxiety disorder) F41.1 and Panic disorder with agoraphobia F40.01 [facility] [address] [place] [id number] [place] [address] 35680- 8200 Dec, [facility] [address] [place] [id number] [place] [address] 94995- 7497 Dec, [facility] [address] [place] [id number] [place] [address] 42651- 2268 Nov, [facility] [address] [place] [id number] [place] [address] 15640- 6759 18 Nov, 2014 [facility] [address] [place] [id number] [place] [address] 90025- 8921 Nov, [facility] [address] [place] [id number] [place] [address] 69919- 3802 14 Nov, 2014 Diabetes 250.00 [facility] [address] [place] [id number] [place] [address] 17805- 5912 Oct, [facility] [address] [place] [address] 88084- 6392 Oct, [facility] [address] [place] [id number] [place] [address] 43553- 2791 Oct, [facility] [address] [place] [id number] [place] [address] 98438- 6388 Oct, [facility] [address] [address]- 3360 Oct, [facility] [address] [place] [id number] [place] [address] 50229- 7916 Oct, [facility] [address] [address]- 9034 Oct, Diabetes 250.00 ; Insomnia 780.52 and Forgetfulness 780.99 [facility] [address] [address]- 0203 Oct, Depressive disorder, not elsewhere classified 311 [facility] [address] [place] [id number] [place] [address] 20930- 6395 Sep, [facility] [address] [place] [id number] [address]- 7374 Sep, [facility] [address] [place] [id number] [place] [address] 54284- 0246 Sep, [facility] [address] [place] [id number] [address]- 9497 Sep, [facility] [address] [place] [id number] [place] [address] 32878- 8451 Sep, [facility] [address] [address]- 9238 Sep, [facility] [address] [place] [id number] [place] [address] 334274- 1713 Sep, [facility] [address] [address]- 2412 Aug, [facility] [address] [id number] Aug, Dental examination V72.2 [facility] [address] [address]- 5131 Aug, [facility] [address] [place] [id number] [address]- 3856 Aug, [facility] [address] [address]- 0007 July, [facility] [address] [place] [id number] [place] [address] 34304- 6662 July, [facility] [address] [id number] [place] [address]- 3224 July, [facility] [place] [facility] [address] [id number] [place] [address]- 5239 July, [facility] [place] [facility] [address] [facility] [id number] [place] [address]- 9549 Jun, [facility] [place] [facility] [address] [id number] [place] [address]- 9251 Jun, [facility] [place] [facility] [address] [id number] [place] [address]- 5434 May, [facility] [place] [facility] [address] [id number] [place] [address]- 4094 May, [facility] [place] [facility] [address] [facility] [id number] [place] [address]- 7723 May, [facility] [place] [facility] [address] [facility] [id number] [place] [address]- 0787 May, [facility] [place] [facility] [address] [facility] [id number] [place] [address]- 7569 May, [facility] [place] [facility] [address] [facility] [id number] [place] [address]- 4121 May, [facility] [place] [facility] [address] [id number] [place] [address]- 5550 16 May, 2014 [facility] [place] [facility] [address] [facility] [id number] [address]- 9010 May, [facility] [place] [facility] [address] [id number] [place] [address]- 6872 Apr, [facility] [place] [facility] [address] [id number] [place] [address]- 3861 Apr, [facility] [place] [facility] [address] [facility] [id number] [address]- 3651 Apr, [facility] [place] [facility] [address] [id number] [place] [address]- 1303 Apr, [facility] [place] [facility] [address] [id number] [place] [address]- 5276 Apr, [facility] [place] [facility] [address] [id number] [place] [address]- 0605 Apr, [facility] [place] [facility] [address] [id number] [place] [address]- 1968 Mar, [facility] [place] [facility] [address] [id number] [place] [address]- 5789 Mar, [facility] [place] [facility] [address] [id number] [place] [address]- 7746 Mar, [facility] [place] [facility] [address] [id number] [place] [address]- 5547 Mar, [facility] [place] [facility] [address] [id number] [place] [address]- 7219 Mar, [facility] [place] [facility] [address] [id number] [place] [address]- 4831 Mar, [facility] [place] [facility] [address] [id number] [place] [address]- 0054 Mar, [facility] [place] [facility] [address] [id number] [place] [address]- 3977 Mar, [facility] [place] [facility] [address] [id number] [place] [address]- 7513 Mar, [facility] [place] [facility] [address] [id number] [place] [address]- 3750 Mar, [facility] [place] [facility] [address] [id number] [place] [address]- 9279 Mar, [facility] [place] [facility] [address] [id number] [place] [address]- 7390 Mar, [facility] [place] [facility] [address] [id number] [place] [address]- 4459 Mar, [facility] [place] [facility] [address] [id number] [place] [address]- 7953 Mar, [facility] [place] [facility] [address] [id number] [place] 2364 Feb, [facility] [place] [facility] [address] [id number] [place] [address]- 3216 Feb, [facility] [place] [facility] [address] [id number] [place] [address]- 6305 Feb, [facility] [place] [facility] [address] [id number] [place] [address]- 2531 Feb, [facility] [place] [facility] [address] [id number] [place] [address]- 4042 Feb, [facility] [place] [facility] [address] [id number] [place] [address]- 0481 Feb, [facility] [place] [facility] [address] [id number] [place] [address]- 0529 16 Feb, 2014 [facility] [place] [facility] [address] [id number] [place] [address]- 1400 Feb, [facility] [place] [facility] [address] [id number] [place] [address]- 1852 16 Feb, 2014 [facility] [place] [facility] [address] [id number] [place] [address]- 3179 16 Feb, 2014 [facility] [place] [facility] [address] [id number] [place] [address]- 4578 10 Feb, 2014 [facility] [place] [facility] [address] [id number] [place] [address]- 7680 Feb, [facility] [place] [facility] [address] [id number] [place] 1011 Feb, [facility] [place] [facility] [address] [id number] [place]75 Feb, [facility] [place] [facility] [address] [id number] [place] [address]- 8490 Jan, [facility] [place] [facility] [address] [id number] [place] [address]- 0167 Jan, [facility] [place] [facility] [address] [id number] [place] [address] 2544 Jan, [facility] [place] [facility] [address] [id number] [place] [address]- 5515 Jan, [facility] [place] [facility] [address] [id number] [place] [address]- 5509 Dec, [facility] [place] [facility] [address] [id number] [place] [address]- 4694 Dec, [facility] [place] [facility] [address] [id number] [place] 3313 Dec, [facility] [place] [facility] [address] [id number] [place] [address]- 7939 Dec, [facility] [place] [facility] [address] [id number] [place] [address]- 9532 Dec, [facility] [place] [facility] [address] [id number] [place] [address]- 0163 Dec, [facility] [place] [facility] [address] [id number] [place] [address]- 8564 Dec, [facility] [place] [facility] [address] [id number] [place] [address]- 7560 Dec, [facility] [place] [facility] [address] [id number] [place] [address]- 2641 30 Nov, 2013 [facility] [place] [facility] [address] [id number] [place] [address]- 4504 17 Nov, 2013 [facility] [place] [facility] [address] [id number] [place] [address] 2548 17 Nov, 2013 [facility] [place] [facility] [address] [id number] [place] [address]- 1764 Nov, [facility] [place] [facility] [address] [id number] [place] [address]- 6135 Nov, [facility] [place] [facility] [address] [id number] [place] [address]- 2501 Oct, [facility] [place] [facility] [address] [id number] [place] [address]- 1187 Oct, [facility] [place] [facility] [address] [id number] [place] [address]- 4252 Sep, [facility] [place] [facility] [address] [id number] [place] [address]- 8624 Sep, [facility] [place] [facility] [address] [id number] [place] [address]- 4975 Sep, [facility] [place] [facility] [address] [id number] [place] [address]- 4747 Sep, [facility] [place] [facility] [address] [id number] [place] [address]- 5230 Sep, [facility] [place] [facility] [address] [id number] [place] [address]- 6740 Sep, [facility] [place] [facility] [address] [id number] [place] [address]- 7783 Sep, [facility] [place] [facility] [address] [id number] [place] [address]- [address] Sep, [facility] [place] [facility] [address] [id number] [place] [address] Sep, [facility] [place] [facility] [address] [id number] [place] [address] Sep, [facility] [place] [facility] [address] [id number] [place] [address] Sep, [facility] [place] [facility] [address] [id number] [place] [address] Sep, [facility] [place] [facility] [address] [id number] [place] [address] Sep, [facility] [place] [facility] [address] [id number] [place] [address] Sep, [facility] [place] [facility] [address] [id number] [place] [address] July, [facility] [place] [facility] [address] [id number] [place] [address] July, [facility] [place] [facility] [address] [id number] [place] [address] July, [facility] [place] [facility] [address] [id number] [place] [address] July, [facility] [place] [facility] [address] [id number] [place] [address] July, [facility] [place] [facility] [address] [id number] [place] [address]- [address] July, [facility] [place] [facility] [address] [id number] [place] [address] July, [facility] [place] [facility] [address] [id number] [place] [address] July, [facility] [place] [facility] [address] [id number] [place] [address] Jun, [facility] [place] [facility] [address] [id number] [place] [address] Jun, [facility] [place] [facility] [address] [id number] [place] [address] Jun, [facility] [place] [facility] [address] [id number] [place] [address]- [address] Jun, [facility] [place] [facility] [address] [id number] [place] [address]- [address] Jun, [facility] [place] [facility] [address] [id number] [place] [address]- [address] Jun, [facility] [place] [facility] [address] [id number] [place] [address] Jun, [facility] [place] [facility] [address] [id number] [place] [address] Jun, [facility] [place] [facility] [address] [id number] [place] [address] 27 May, 2013 [facility] [place] [facility] [address] [id number] [place] [address] 27 May, 2013 [facility] [place] [facility] [address] [id number] [place] [address] 21 May, 2013 [facility] [place] [facility] [address] [id number] [place] [address] 21 May, 2013 [facility] [place] [facility] [address] [id number] [place] [address] 20 May, 2013 [facility] [place] [facility] [address] [id number] [place] [address] 20 May, 2013 [facility] [place] [facility] [address] [id number] [place] [address] 19 May, 2013 [facility] [place] [facility] [address] [id number] [place] [address]- [address] 19 May, 2013 [facility] [place] [facility] [address] [id number] [place] [address] 17 May, 2013 [facility] [place] [facility] [address] [id number] [place] [address]- [address] 17 May, 2013 [facility] [place] [facility] [address] [id number] [place] [address] 17 May, 2013 [facility] [facility] [address] [id number] [place] [address] 17 May, 2013 [facility] [place] [facility] [address] [id number] [place] [address] 12 May, 2013 [facility] [place] [facility] [address] [id number] [place] [address] May, [facility] [place] [facility] [address] [id number] [place] [address] May, [facility] [place] [facility] [address] [id number] [place] [address] May, [facility] [place] [facility] [address] [id number] [place] [address] Apr, [facility] [place] [facility] [address] [id number] [place] [address] 87[address] Apr, [facility] [place] [facility] [address] [id number] [place] [address] Mar, [facility] [place] [facility] [address] [id number] [place] [address] 6[address] Mar, [facility] [place] [facility] [address] [id number] [place] [address] 48[address] Mar, [facility] [place] [facility] [address] [id number] [place] [address] 0662 Mar, [facility] [place] [facility] [address] [id number] [place] [address] Mar, [facility] [place] [facility] [address] [id number] [place] [address] 3857 Mar, [facility] [place] [facility] [address] [id number] [address] Feb, [facility] [place] [facility] [address] [id number] [place] [address] 1987 Feb, [facility] [place] [facility] [address] [id number] [place] [address] Feb, [facility] [place] [facility] [address] [id number] [place] [address] Feb, [facility] [place] [facility] [address] [id number] [place] [address] Feb, [facility] [place] [facility] [address] [id number] [place] [address] 2540 Feb, [facility] [address] [id number] [place] [address] Jan, [facility] [address] [id number] [place] [address] 58[address] Jan, [facility] [address] [id number] [place] [address] 24[address] Jan, [facility] [address] [id number] [place] [address] 5261 Jan, [facility] [address] [id number] [place] [address] 8193 Jan, [facility] [address] [id number] [place] [address] 6[address] Jan, [facility] [address] [id number] [place] [address] 9838 Jan, [facility] [address] [id number] [place] [address] 5080 Dec, [facility] [address] [id number] [place] [address] 9614 Dec, [facility] [address] [id number] [place] [address] 8530 Dec, [facility] [address] [id number] [place] [address] 55[address] Nov, [facility] [place] [address] [id number] [place] [address] 9[address] Oct, [facility] [address] [id number] [place] [address] 3210 Sep, [facility] [address] [id number] [place] [address] 2542 Sep, [facility] [address] [id number] [place] [address] 3614 Sep, [facility] [address] [id number] [place] [address] 1018 Sep, [facility] [address] [id number] [place] [address] 9904 Sep, [facility] [address] [id number] [place] [address] 9[address] Sep, [facility] [address] [id number] [place] [address] 2764 Aug, [facility] [address] [id number] [place] [address] 52[address] Aug, [facility] [address] [id number] [place] [address] 98[address] July, [facility] [address] [id number] [place] [address] 0696 July, [facility] [address] [id number] [place] [address] 0383 July, [facility] [address] [id number] [place] [address] 7[address] July, [facility] [address] [id number] [place] [address] 0131 Jun, [facility] [address] [id number] [place] [address] 3829 May, [facility] [address] [id number] [place] [address] May, [facility] [address] [id number] [place] [address] 8388 May, [facility] [address] [id number] [place] [address] 3716 Mar, [facility] [address] [id number] [place] [address] Mar, [facility] [address] [id number] [place] [address] 3[address] Mar, [facility] [address] [id number] [place] [address] 9649 Feb, [facility] [address] [id number] [place] [address] 4396 Feb, [facility] [address] [id number] [place] [address]- 1806 Feb, [facility] [address] [id number] [place] [address] Feb, [facility] [address] [id number] [place] [address]- 9557 Feb, [facility] [address] [id number] [place] [address]- 3724 Feb, [facility] [id number] [place] [address] Feb, [facility] [address] [id number] [place] [address] 9606 Feb, [facility] [address] [id number] [place] [address]- 4091 Feb, [facility] [address] [facility] [id number] [place] [address] 9991 Feb, [facility] [address] [id number] [place] [address]- 7696 Jan, [facility] [address] [id number] [place] [address]- 3505 Jan, [facility] [address] [id number] [place] [address]- 6029 Jan, [facility] [address] [id number] [place] [address]- 1517 Jan, [facility] [address] [id number] [place] [address]- [address] Jan, [facility] [address] [id number] [place] [address]- 9038 Jan, [facility] [address] [id number] [place] [address] 1978 Jan, [facility] [address] [id number] [place] [address]- 5166 Jan, [facility] [address] [id number] [place] [address]- 1408 Jan, [facility] [address] [id number] [place] [address]- 6605 Jan, [facility] [address] [id number] [place] [address]- 9080 Dec, [facility] [address] [id number] [place] [address]- 5012 Dec, [facility] [address] [id number] [place] [address]- 2986 Nov, [facility] [address] [id number] [place] [address]- 8648 24 Nov, 2011 [facility] [address] [id number] [place] [address]- 1752 05 Nov, 2011 [facility] [address] [id number] [place] [address]- 0706 Oct, [facility] [address] [id number] [place] [address]- 6913 Oct, [facility] [address] [id number] [place] [address]- 6851 Oct, [facility] [address] [id number] [place] [address] Oct, [facility] [address] [id number] [place] [address]- 0466 Aug, [facility] [address] [id number] [place] [address]- 4268 15 Aug, 2011 [facility] [address] [id number] [place] [address]- 4794 14 Aug, 2011 [facility] [address] [id number] [place] [address]- 0447 07 Aug, 2011 [facility] [address] [id number] [place] [address]- 8471 08 Jun, 2011 [facility] [address] [id number] [place] [address]- 5031 May, [facility] [address] [id number] [place] [address]- 7754 May, [facility] [address] [id number] [place] [address]- 9131 20 Apr, 2011 [facility] [address] [id number] [place] [address]- 2813 20 Apr, 2011 [facility] [address] [id number] [place] [address]- 2487 15 Apr, 2011 [facility] [address] [id number] [place] [address]- 4507 14 Apr, 2011 [facility] [address] [id number] [place] [address]- 0052 24 Mar, 2011 [facility] [address] [id number] [place] [address]- 5504 Mar, [facility] [address] [id number] [place] [address]- 7749 19 Mar, 2011 [facility] [address] [id number] [place] [address]- 7100 18 Mar, 2011 [facility] [address] [id number] [place] [address]- 0630 13 Mar, 2011 [facility] [address] [id number] [place] [address]- 7665 13 Mar, 2011 [facility] [address] [id number] [place] [address]- 4128 Feb, [facility] [address] [id number] [place] [address]- 6208 Jan, [facility] [address] [id number] [place] [address]- 1876 Jan, [facility] [address] [id number] [place] [address]- 0986 Jan, [facility] [address] [id number] [place] [address]- 4130 Jan, [facility] [address] [id number] [place] [address]- 7977 Jan, [facility] [address] [id number] [place] [address]- 9050 Dec, [facility] [address] [id number] [place] [address]- 7284 May, [facility] [address] [id number] [place] [address]- 6396 14 Apr, 2010 [facility] [address] [id number] [place] [address]- 9760 Mar, [facility] [address] [id number] [place] [address]- 4141 Feb, [facility] [address] [id number] [place] [address]- 2542 Feb, [facility] [address] [id number] [place] [address]- 2546 14 Feb, 2010 [facility] [address] [id number] [place] [address]- 7386 13 Feb, 2010 [facility] [address] [id number] [place] [address]- 2546 11 Dec, 2009 [facility] [address] [id number] [place] [address]- 3198 Dec, IMMUNIZATIONS No Known Immunizations SOCIAL HISTORY Never Assessed REASON FOR VISIT Other PLAN OF CARE VITAL SIGNS MEDICATIONS Unknown [...]
--- OUTSIDE RECORDS SUMMARY | 2017-12-04 09:58 | XMS REPORT ---
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 Active Problem Coronary atherosclerosis of unspecified type of vessel, [place] or graft 414.00 Active Problem Family history of malignant neoplasm of gastrointestinal tract V16.0 Active Assessment Other chronic pain G89.29 Active Assessment Pain in right hip M25.551 Active Problem Type 2 diabetes mellitus [...] Instructions Start Date End Date Status Dosage Levemir FlexTouch [facility] 24740462108 100 UNIT/ML INJECT 42 UNITS SUBCUTANEOUSLY TWICE DAILY Vitamin E [facility] [address]-82 100 UNIT Orally Once a day 1 capsule BusPIRone HCl [facility] [address]-39 10 MG Orally 1 tab in AM and 12 Noon and take 2 tabs at HS Jan 06, 2015 1 tablet Latuda [facility] [address]-13 60 MG Orally Once with evening meal Dec 19, 2014 1 tablet with food Test strips NDC 0 one touch ultra 2 times a day DX code: E11.329 Jan 03, 2015 test blood sugar Nitrostat [facility] [address]-78 0.4 MG Sublingual not defined Pantoprazole Sodium [facility] [address]-04 40 MG Orally August 14, 2014 1 tablet in the AM 2 [place] [address]-71 100 UNIT/ML Subcutaneous 3 times a day 20 unit with meals C-PAP Machine NDC 0 N/A Once a day at night Nov 06, 2014 as directed Quinapril HCl [facility] [address]-36 20 MG Once a day TAKE 1 TABLET EVERY DAY Metformin HCl [facility] [address]-36 500 MG Orally Twice a day July 16, 2014 1 tablet with meals Bydureon [facility] [address]-52 2 MG Subcutaneous once weekly August 06, 2014 2mg Bentyl [facility] [address]-18 20 mg Dec 14, 2013 1 tablet by Oral route 4 times per day PRN 90 day supply Oxybutynin Chloride [facility] [address]-39 5 MG Orally Twice a day May 28, 2014 1 tablet Atorvastatin Calcium [facility] [address]-23 40 MG Orally Once a day 1 tablet Metoprolol Tartrate [facility] [address]-78 50 MG TAKE 1 TABLET TWICE DAILY Effexor XR [facility] [address]-01 150 MG Orally Once a day Oct 21, 2014 1 capsule with food Fish Oil [facility] [address]-42 1000 MG Orally Three times a day 1 capsule Gabapentin [facility] [address]-83 300 MG Orally Three times a day August 14, 2014 3 capsule Procedures Procedure Coding System Code Date DRAIN/INJECT, JOINT/BURSA CPT-4 30424 Jan 28, 2015 Vital Signs Date/Time: Jan 28, 2015 Temperature 97.3 F Weight 205 lbs Height 67 in BMI 32.10 Index Blood Pressure Diastolic 68 mmHg Blood Pressure Systolic 122 mmHg Cardiac Monitoring Heart Rate 92 bpm Results No Known Results Summary Purpose eClinicalWorks Submission
--- OUTSIDE RECORDS SUMMARY | 2017-12-04 09:58 | XMS REPORT ---
Author Author JYOTSNA EMERY [facility] [place] eClinicalWorks Address Unknown Phone Unavailable Care Team Providers Care Channeling Machine Operator Name Role Phone JYOTSNA EMERY CP Unavailable Allergies, Adverse Reactions, Alerts Substance Reaction Event Type Codeine Sulfate hives Drug Allergy Advil rash Drug Allergy All nsaids Info Not Available Non Drug Allergy Problems Problem Type Condition Code Onset Dates Condition Status Problem Irritable bowel syndrome 564.1 Active Problem Barretts esophagus without dysplasia K22.70 Active Problem Gastroparesis K31.84 Active Problem Gastro-esophageal reflux disease without esophagitis K21.9 Active Assessment Obstructive sleep apnea syndrome G47.33 Active Problem Bipolar disorder, current episode depressed, moderate F31.32 Active Problem Type 2 diabetes mellitus with diabetic autonomic (poly)neuropathy E11.43 Active Problem Depressive disorder, not elsewhere classified 311 Active Problem 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 Nov 12, 2014 Active Problem BRITTANI (generalized anxiety disorder) F41.1 Active Problem Panic disorder with agoraphobia F40.01 Active Assessment Diabetes E11.9 Active Problem 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 Active Assessment Type 2 diabetes mellitus with diabetic autonomic (poly)neuropathy E11.43 Active Assessment Gastroparesis K31.84 Active Problem Unspecified backache 724.5 Active Problem Esophageal reflux 530.81 Active Problem Family history of malignant neoplasm of gastrointestinal tract V16.0 Active Problem Other and unspecified hyperlipidemia 272.4 Active Problem Coronary atherosclerosis of unspecified type of vessel, [place] or graft 414.00 Active Problem Unspecified essential hypertension 401.9 Active Medications Medication Code System Code Instructions Start Date End Date Status Dosage Effexor XR [facility] [address]-49 150 MG Orally Once a day Oct 21, 2014 1 capsule with food Pantoprazole Sodium [facility] [address]-91 40 mg Orally Once a day 1 tablet Metformin HCl [facility] 92794618842 500 MG Orally Twice a day 1 tablet with meals Quinapril HCl [facility] 62982575037 20 MG Once a day TAKE 1 TABLET EVERY DAY BusPIRone HCl [facility] [address]-35 10 MG TAKE ONE TABLET BY MOUTH IN THE MORNING, ONE TABLET AT NOON AND TWO TABLETS AT BEDTIME Oxybutynin Chloride [facility] 03950589771 5 MG Orally Twice a day 1 tablet Vitamin E [facility] [address]-11 100 UNIT Orally Once a day 1 capsule Levemir FlexTouch [facility] [address]-25 100 UNIT/ML INJECT 42 UNITS SUBCUTANEOUSLY TWICE DAILY. Adult Mask ND 0 N/A July 21, 2015 as directed C-PAP Machine ND 0 N/A Once a day at night Nov 06, 2014 as directed Atorvastatin Calcium [facility] 52701373558 40 MG Orally Once a day 1 tablet Nitrostat [facility] [address]-35 0.4 MG Sublingual not defined Fish Oil [facility] [address]-50 1000 MG Orally Three times a day 1 capsule Zenpep [facility] [address]-30 94045 UNIT Orally before meals and snacks Nov 1 tablet Metoprolol Tartrate [facility] 61533451483 50 MG TAKE 1 TABLET TWICE DAILY Gabapentin [facility] 75490245775 300 MG Orally Three times a day 3 capsule Aspirin Adult Low Dose [facility] [address]-32 81 MG Orally Once a day 1 tablet Test strips [facility] 0 one touch ultra 2 times a day DX code: E11.329 Jan 03, 2015 test blood sugar NovoLog Flexpen [facility] 56121389366 100 UNIT/ML INJECT 20 UNITS SUBCUTANEOUSLY THREE TIMES DAILY BEFORE MEALS Victoza [facility] [address]-95 18 MG/3ML Subcutaneous Once a day July 29, 2015 Inject 1.8mg Procedures Procedure Coding System Code Date Office Visit, Est Pt., Level 3 CPT-4 29338 Nov 25, 2015 Vital Signs Date/Time: Nov 25, 2015 Cardiac Monitoring Heart Rate 84 bpm Weight 208.7 lbs Height 67 in BMI 32.68 Index Blood Pressure Diastolic 80 mmHg Blood Pressure Systolic 120 mmHg Results Name Result Date Reference Range Unit Abnormality Flag A1C (IN HOUSE) ----A1C IN HOUSE 7.9 [id number] 4.3 - 5.6 % ----Previous A1c 8.5 [id number] ----Lot [id number] ----Exp date [id number] Summary Purpose eClinicalWorks Submission
--- OUTSIDE RECORDS SUMMARY | 2017-12-04 09:58 | XMS REPORT ---
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 Name Role Phone JYOTSNA EMERY Unavailable PROBLEMS Type Condition ICD9-CM Code OVU34-IV Code Onset Dates Condition Status SNOMED Code Problem Diabetes E11.9 Active 102155321 Problem Type 2 diabetes mellitus with hyperglycemia E11.65 Active 10942315 Problem Essential hypertension I10 Active 47582354 Problem Diabetic polyneuropathy associated with diabetes mellitus due to underlying condition E08.42 Active 73732656 Problem Rotator cuff syndrome of right shoulder M75.101 Active [id number] Problem Slow transit constipation K59.01 Active 32691504 Problem senior living current use of insulin Z79.4 Active 776020127 Problem Constipation, unspecified constipation type K59.00 Active 50477083 Problem Irritable bowel syndrome, unspecified type K58.9 Active 55231606 Problem Barretts esophagus without dysplasia K22.70 Active 935671295 Problem 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 Nov, Active 0191633 Problem Herniation of intervertebral disc at C5-C6 level M50.222 Active 121490335 Problem Gastroparesis K31.84 Active 222183253 Problem Bipolar disorder, current episode depressed, moderate F31.32 Active 747427092 Problem Gastro-esophageal reflux disease without esophagitis K21.9 Active 558361069 Problem Panic disorder with agoraphobia F40.01 Active 05926499 Problem Type 2 diabetes mellitus with diabetic autonomic (poly)neuropathy E11.43 Active 076509008 Problem BRITTANI (generalized anxiety disorder) F41.1 Active 44578180 Problem Obstructive sleep apnea syndrome G47.33 Active 73194740 ALLERGIES No Information ENCOUNTERS Encounter Location Date Diagnosis [facility] [address] [address] July, [facility] [address] [address] Jun, Type 2 diabetes mellitus with diabetic autonomic (poly) neuropathy E11.43 and Type 2 diabetes mellitus with hyperglycemia E11.65 [place] [address] [address]- 7093 May, [place] [address] [address]- 7396 May, Bipolar disorder, current episode depressed, moderate F31.32 [facility] [address] [address] May, [place] [address] 83185- 6836 May, Diabetic polyneuropathy associated with diabetes mellitus due to underlying condition E08.42 [place] [address] 82842- 3870 Apr, [place] [address] 71639- 1867 Feb, Ganglion cyst of dorsum of right wrist M67.431 [place] [address] 24443- 6031 Jan, Other cyst of bone, right forearm M85.631 [place] [address] 82889- 2106 Jan, [place] [address] 56515- 8717 Jan, Diabetes E11.9 and Right forearm pain M79.631 [place] [address] 63950- 7625 Dec, Encounter for immunization Z23 [place] [address] 65896- 0302 Nov, [place] [address] 37127- 0357 Nov, Type 2 diabetes mellitus with hyperglycemia E11.65 [facility] [id number] [place] [address] 85081- 6291 Nov, Severe pain of right shoulder M25.511 [facility] [address] [place] [id number] [place] [address] 05149- 1783 Oct, Diabetes E11.9 [facility] [address] [place] [id number] [place] [address] 42555- 0053 Oct, Diabetes E11.9 [facility] [address] [place] [id number] [place] [address] 15372- 7667 Oct, [facility] [address] [place] [id number] [place] [address] 36389- 0625 Oct, [facility] [address] [place] [id number] [place] [address] 94791- 2333 Oct, Rotator cuff syndrome of right shoulder M75.101 [facility] [address] [place] [id number] [place] [address] 00532- 5643 Oct, [address]9 [facility] [address] [place] [id number] [place] [address] 93223- 3236 Sep, Type 2 diabetes mellitus with hyperglycemia E11.65 ; Obstructive sleep apnea syndrome G47.33 and Constipation, unspecified constipation type K59.00 [facility] [address] [place] [id number] [place] [address] 52695- 1632 Aug, [facility] [address] [place] [id number] [place] [address] 50317- 2291 Aug, [facility] [address] [place] [id number] [place] [address] 49448- 8910 Aug, Type 2 diabetes mellitus with diabetic autonomic (poly) neuropathy E11.43 [facility] [address] [place] [id number] [place] [address] 91079- 9939 July, Type 2 diabetes mellitus with hyperglycemia E11.65 [facility] [address] [place] [id number] [place] [address] 66428- 4858 Jun, Slow transit constipation K59.01 [facility] [address] [place] [id number] [place] [address] 14968- 1255 May, [facility] [address] 11301- 0680 May, Diabetes E11.9 [place] [address] 35480- 9570 May, [facility] 77646 -2843 Apr, [place] [address] 21727- 7101 Apr, Gastroenteritis K52.9 [facility] [place] [address] 9[address]96 -3270 Apr, Abdominal pain, unspecified location R10.9 ; Gastroenteritis K52.9 ; Type 2 diabetes mellitus with hyperglycemia E11.65 and senior living current use of insulin Z79.4 [place] [address] [place] [id number] [place] [address] 09372- 3470 Apr, [place] [address] 30471- 8982 Apr, [place] [address] [place] [id number] [place] [address] 42905- 6034 Apr, Diabetes E11.9 ; Gastroparesis K31.84 ; Generalized abdominal pain R10.84 ; Essential hypertension I10 ; Bronchitis J40 and Other fatigue R53.83 [facility] [address] [place] [id number] [place] [address] 19799 -3964 Mar, [facility] [address] 15381 -0832 Mar, [facility] [place] [address] [place] [id number] [place] [address] 70322 -4306 Mar, Laceration of scalp without foreign body, initial encounter S01.01XA ; Laceration of face, initial encounter S01.81XA and Encounter for immunization Z23 [place] [address] [place] [id number] [place] [address] 34563- 4228 Mar, Type 2 diabetes mellitus with diabetic autonomic (poly) neuropathy E11.43 [place] [address] [place] [id number] [place] [address] 97165- 1044 Feb, [place] [address] 19083- 6952 Feb, Internal hemorrhoids K64.8 and Obstructive sleep apnea syndrome G47.[address] 26978- 8310 Feb, SI (sacroiliac) joint dysfunction M53.3 [place] [id number] [place] [address] 84143- 8535 Jan, [place] [address] 33549- 4535 Dec, Gastroparesis K31.[address] 0[address]56- 1977 Dec, [place] [address] [place] [id number] [place] [address] 64399- 0137 Dec, Right hip pain M25.551 ; Nose congested R09.81 and Encounter for immunization Z23 [place] [address] [place] [id number] [place] [address] 62626- 7147 Nov, Diabetes E11.9 ; Gastroparesis K31.84 ; Type 2 diabetes mellitus with diabetic autonomic (poly)neuropathy E11.43 and Obstructive sleep apnea syndrome G47.33 [place] [address] 07312- 3372 Oct, [place] [address] [place] [id number] [place] [address] 82671- 1510 Aug, [place] [id number] [place] [address] 96872- 1419 July, Gastro-esophageal reflux disease without esophagitis K21.9 [facility] [address] 88337- 9418 July, [facility] [address] 54195- 4972 July, [address]9 [facility] [address] 25033- 8203 July, Diabetes E11.9 ; Obstructive sleep apnea syndrome G47.33 and Neuropathy G62.9 [place] [address] 26098- 2369 July, Bipolar disorder, current episode depressed, moderate F31.32 ; BRITTANI (generalized anxiety disorder) F41.1 and Panic disorder with agoraphobia F40.01 [place] [address] 67364- 5906 Jun, [facility] [address] 04932- 4308 Jun, [place] [address] 35037- 1322 Jun, [facility] [address] [place] [id number] [place] [address] 57935- 4080 Jun, [facility] [address] [place] [id number] [place] [address] [id number] May, Encounter for dental examination and cleaning without abnormal findings Z01.20 [facility] [address] [place] [id number] [place] [address] 37386- 5315 Apr, [facility] [address] 89347- 5846 Apr, [facility] [address] [place] [id number] [place] [address] 13868- 5200 Apr, Bipolar disorder, current episode depressed, moderate F31.32 ; BRITTANI (generalized anxiety disorder) F41.1 and Panic disorder with agoraphobia F40.01 [facility] [address] [place] [id number] [place] [address] 82410- 7497 04 Apr, 2015 Hyperlipidemia, unspecified E78.5 [facility] [address] [place] [address] [id number] Apr, Dental caries K02.9 [facility] [address] [id number] Feb, Dental caries K02.9 and Encounter for dental examination Z01.20 [place] [address] 67777- 9371 Feb, [place] [address] 79898- 2603 Feb, Diabetes E11.9 ; Insulin long-term use Z79.4 ; Diabetic polyneuropathy associated with diabetes mellitus due to underlying condition E08.42 and Barretts esophagus with high grade dysplasia K22.711 [place] [address] [place] [id number] [place] [address] 34615- 3924 Feb, [place] [address] 65683- 5135 Jan, Pain in right hip M25.551 and Other chronic pain G89.29 [place] [address] [place] [id number] [place] [address] 46478- 3378 Jan, Impingement syndrome, shoulder, left M75.42 [place] [address] [place] [id number] [place] [address] 79720- 9142 Jan, Bipolar disorder, current episode depressed, moderate F31.32 ; Generalized anxiety disorder F41.1 and Agoraphobia with panic disorder F40.01 [place] [address] [place] [id number] [place] [address] 38378- 0126 Jan, [place] [address] 53894- 3212 Dec, [facility] [address] [place] [address] 09673- 0679 Dec, [facility] [address] [place] [id number] [place] [address] 18221- 2433 Dec, Right hip pain M25.551 and Left shoulder pain M25.512 [facility] [address] [place] [id number] [place] [address] 072500- 4875 Dec, Bipolar 1 disorder, depressed, moderate F31.32 ; BRITTANI ( generalized anxiety disorder) F41.1 and Panic disorder with agoraphobia F40.01 [facility] [address] [place] [id number] [place] [address] 979038- 0447 Dec, [facility] [address] [place] [id number] [place] [address] 86689- 0805 Dec, [facility] [address] [place] [id number] [place] [address] 40553- 6550 Nov, [facility] [address] [place] [id number] [place] [address] 09044- 0581 18 [address], 2014 [facility] [address] [place] [id number] [place] [address] 01622- 7020 Nov, [facility] [address] [place] [id number] [place] [address] 88736- 7373 Nov, Diabetes 250.00 [facility] [address] [place] [id number] [place] [address] 64036- 6551 Oct, [facility] [address] [place] [id number] [place] [address] 87116- [address] Oct, [facility] [address] [place] [id number] [place] [address] 95880694- 3353 Oct, [facility] [address] [place] [address] 66283- [address]008 Oct, [facility] [address] [place] [id number] [place] [address] 09474- 8678 Oct, [facility] [address], [place] [address]- 0300 Oct, [facility] [address] [place] [id number] [place] [address] 022744- 4759 Oct, Diabetes 250.00 ; Insomnia 780.[address] [facility] [address] [place] [id number] [place] [address] 31332- 8524 Oct, Depressive disorder, not elsewhere classified 311 [facility] [address] [place] [id number] [place] [address] 63655- 4545 Sep, [facility] [address] [place] [id number] [place] [address] 40835- 1723 Sep, [facility] [address] [place] [id number] [place] [address] 89488- 8137 Sep, [facility] [address] [place] [id number] [place] [address] 39448- 9730 Sep, [facility] [address] [place] [address] 19006- 0596 Sep, [facility] [address] [place] [id number] [place] [address] 31059- 9250 Sep, [facility] [address] [address]- 3610 Sep, [facility] [address] [place] [address] 33259- 3701 Aug, [facility] [address] [id number] Aug, Dental examination V72.2 [facility] [address] [place] [id number] [place] [address] 87124- 8406 Aug, [facility] [address] [address]- 6023 Aug, [facility] [address] [place] [id number] [place] [address] 19470- 3243 July, [facility] [address] [id number] [place] [address]- 9411 July, [facility] [place] [facility] [address] [id number] [place] [address]- 4845 July, [facility] [place] [facility] [address] [facility] [id number] [place] [address]- 3777 July, [facility] [place] [facility] [address] [id number] [place] [address]- 3357 Jun, [facility] [place] [facility] [address] [id number] [place] [address]- 1291 Jun, [facility] [place] [facility] [address] [id number] [place] [address]- 6224 May, [facility] [place] [facility] [address] [facility] [id number] [place] [address]- 2909 May, [facility] [place] [facility] [address] [facility] [id number] [place] [address]- 7623 May, [facility] [place] [facility] [address] [id number] [place] [address]- 3579 May, [facility] [place] [facility] [address] [facility] [id number] [place] [address]- 4457 May, [facility] [place] [facility] [address] [id number] [place] [address]- 0032 May, [facility] [place] [facility] [address] [facility] [id number] [address]- 0885 16 May, 2014 [facility] [place] [facility] [address] [id number] [place] [address]- 7338 May, [facility] [place] [facility] [address] [facility] [id number] [place] [address]- 9938 Apr, [facility] [place] [facility] [address] [facility] [id number] [place] [address]- 3978 Apr, [facility] [place] [facility] [address] [id number] [place] [address]- 5287 Apr, [facility] [place] [facility] [address] [id number] [place] [address]- 6676 Apr, [facility] [place] [facility] [address] [id number] [place] [address]- 6986 Apr, [facility] [place] [facility] [address] [id number] [place] [address]- 4491 Apr, [facility] [place] [facility] [address] [id number] [place] [address]- 6863 Mar, [facility] [place] [facility] [address] [id number] [place] [address]- 7726 Mar, [facility] [place] [facility] [address] [id number] [place] [address]- 0786 Mar, [facility] [place] [facility] [address] [id number] [place] [address]- 0055 Mar, [facility] [place] [facility] [address] [id number] [place] [address]- 0410 Mar, [facility] [place] [facility] [address] [id number] [place] [address]- 8462 Mar, [facility] [place] [facility] [address] [id number] [place] [address]- 7025 Mar, [facility] [place] [facility] [address] [id number] [place] [address]- 5047 Mar, [facility] [place] [facility] [address] [id number] [place] [address]- 7397 Mar, [facility] [place] [facility] [address] [id number] [place] [address]- 9724 Mar, [facility] [place] [facility] [address] [id number] [place] [address]- 0166 Mar, [facility] [place] [facility] [address] [id number] [place] [address]- 7740 Mar, [facility] [place] [facility] [address] [id number] [place] [address]- 1665 Mar, [facility] [place] [facility] [address] [id number] [place] 3356 Mar, [facility] [place] [facility] [address] [id number] [place] [address]- 4993 Feb, [facility] [place] [facility] [address] [id number] [place] [address]- 4162 30 Feb, 2014 [facility] [place] [facility] [address] [id number] [place] [address]- 1889 Feb, [facility] [place] [facility] [address] [id number] [place] [address]- 4042 Feb, [facility] [place] [facility] [address] [id number] [place] [address]- 4745 Feb, [facility] [place] [facility] [address] [id number] [place] [address]- 2918 Feb, [facility] [place] [facility] [address] [id number] [place] [address]- 2858 16 Feb, 2014 [facility] [place] [facility] [address] [id number] [place] [address]- 1551 16 Feb, 2014 [facility] [place] [facility] [address] [id number] [place] [address]- 6052 16 Feb, 2014 [facility] [place] [facility] [address] [id number] [place] [address]- 0308 16 Feb, 2014 [facility] [place] [facility] [address] [id number] [place] [address]- 6213 10 Feb, 2014 [facility] [place] [facility] [address] [id number] [place] [address]- 8298 10 Feb, 2014 [facility] [place] [facility] [address] [id number] [place] [address]- 1954 04 Feb, 2014 [facility] [place] [facility] [address] [id number] [place] [address] 254 Feb, [facility] [place] [facility] [address] [id number] [place] [address]- 4448 Jan, [facility] [place] [facility] [address] [id number] [place] [address] 2546 Jan, [facility] [place] [facility] [address] [id number] [place] [address] 2549 Jan, [facility] [place] [facility] [address] [id number] [place] [address] 2549 Jan, [facility] [place] [facility] [address] [id number] [place] [address]- 7987 Dec, [facility] [place] [facility] [address] [id number] [place] [address]- 1261 Dec, [facility] [place] [facility] [address] [id number] [place] [address]- 9088 Dec, [facility] [place] [facility] [address] [id number] [place] [address]- 2824 Dec, [facility] [place] [facility] [address] [id number] [place] [address]- 2703 Dec, [facility] [place] [facility] [address] [id number] [place] [address]- 4523 Dec, [facility] [place] [facility] [address] [id number] [place] [address]- 9819 Dec, [facility] [place] [facility] [address] [id number] [place] [address]- 6195 Dec, [facility] [place] [facility] [address] [id number] [place] [address] 2543 Nov, [facility] [place] [facility] [address] [id number] [place] [address]- 2546 Nov, [facility] [place] [facility] [address] [id number] [place] [address]- 0759 Nov, [facility] [place] [facility] [address] [id number] [place] [address]- 9492 Nov, [facility] [place] [facility] [address] [id number] [place] [address]- 9711 Nov, [facility] [place] [facility] [address] [id number] [place] 4998 Oct, [facility] [place] [facility] [address] [id number] [place] [address]- 0833 Oct, [facility] [place] [facility] [address] [id number] [place] [address]- 9179 Sep, [facility] [place] [facility] [address] [id number] [place] [address] Sep, [facility] [place] [facility] [address] [id number] [place] [address] Sep, [facility] [place] [facility] [address] [id number] [place] [address] Sep, [facility] [place] [facility] [address] [id number] [place] [address] Sep, [facility] [place] [facility] [address] [id number] [place] [address] Sep, [facility] [place] [facility] [address] [id number] [place] [address] Sep, [facility] [place] [facility] [address] [id number] [place] [address] Sep, [facility] [place] [facility] [address] [id number] [place] [address] Sep, [facility] [place] [facility] [address] [id number] [place] [address] Sep, [facility] [place] [facility] [address] [id number] [place] [address] Sep, [facility] [place] [facility] [address] [id number] [place] [address] Sep, [facility] [place] [facility] [address] [id number] [place] [address] Sep, [facility] [place] [facility] [address] [id number] [place] [address] Sep, [facility] [place] [facility] [address] [id number] [place] [address] July, [facility] [place] [facility] [address] [id number] [place] [address] July, [facility] [place] [facility] [address] [id number] [place] [address] July, [facility] [place] [facility] [address] [id number] [place] [address] July, [facility] [place] [facility] [address] [id number] [place] [address] July, [facility] [place] [facility] [address] [id number] [place] [address]- [address] July, [facility] [place] [facility] [address] [id number] [place] [address] July, [facility] [place] [facility] [address] [id number] [place] [address] July, [facility] [place] [facility] [address] [id number] [place] [address] Jun, [facility] [place] [facility] [address] [id number] [place] [address]- [address] Jun, [facility] [place] [facility] [address] [id number] [place] [address] Jun, [facility] [place] [facility] [address] [id number] [place] [address]- [address] Jun, [facility] [place] [facility] [address] [id number] [place] [address] Jun, [facility] [place] [facility] [address] [id number] [place] [address] Jun, [facility] [place] [facility] [address] [id number] [place] [address] Jun, [facility] [place] [facility] [address] [id number] [place] [address]- [address] Jun, [facility] [place] [facility] [address] [id number] [place] [address] 27 May, 2013 [facility] [place] [facility] [address] [id number] [place] [address] 27 May, 2013 [facility] [place] [facility] [address] [id number] [place] [address]- [address] May, [facility] [place] [facility] [address] [id number] [place] [address]- [address] May, [facility] [place] [facility] [address] [id number] [place] [address] 20 May, 2013 [facility] [place] [facility] [address] [id number] [place] [address] 20 May, 2013 [facility] [place] [facility] [address] [id number] [place] [address]- [address] 19 May, 2013 [facility] [place] [facility] [address] [id number] [place] [address]- [address] 19 May, 2013 [facility] [place] [facility] [address] [id number] [place] [address] 17 May, 2013 [facility] [place] [facility] [address] [id number] [place] [address] 17 May, 2013 [facility] [place] [facility] [address] [id number] [place] [address] 17 May, 2013 [facility] [place] [facility] [address] [id number] [place] [address]- [address] 17 May, 2013 [facility] [place] [facility] [address] [id number] [place] [address] May, [facility] [place] [facility] [address] [address] [id number] [place] [address] May, [facility] [place] [facility] [address] [id number] [place] [address] May, [facility] [place] [facility] [address] [id number] [place] [address] May, [facility] [place] [facility] [address] [id number] [place] [address] Apr, [facility] [place] [facility] [address] [id number] [place] [address] Apr, [facility] [place] [facility] [address] [id number] [place] [address] Mar, [facility] [place] [facility] [address] [id number] [place] [address] Mar, [facility] [place] [facility] [address] [id number] [place] [address]70 Mar, [facility] [place] [facility] [address] [id number] [place] [address] Mar, [facility] [place] [facility] [address] [id number] [place] [address] Mar, [facility] [place] [facility] [address] [id number] [place] [address]671 Mar, [facility] [place] [facility] [address] [id number] [place] [address] Feb, [facility] [place] [facility] [address] [id number] [place] [address] Feb, [facility] [place] [facility] [address] [id number] [place] [address] Feb, [facility] [place] [facility] [address] [id number] [place] [address] Feb, [facility] [place] [facility] [address] [id number] [place] [address] Feb, [facility] [address] [id number] [place] [address] Feb, [facility] [place] [facility] [address] [id number] [place] [address] 7707 Jan, [facility] [address] [id number] [place] [address] 8499 Jan, [facility] [place] [facility] [address] [id number] [place] [address] Jan, [facility] [address] [id number] [place] [address] 7[address] Jan, [facility] [place] [facility] [address] [id number] [place] [address] 9474 Jan, [facility] [place] [facility] [address] [id number] [place] [address] 4[address] Jan, [facility] [address] [id number] [place] [address] Jan, [facility] [place] [facility] [address] [id number] [place] [address] 4167 Dec, [facility] [address] [id number] [place] [address] 8689 Dec, [facility] [place] [facility] [address] [id number] [place] [address] 7029 Dec, [facility] [place] [facility] [address] [id number] [place] [address] Nov, [facility] [place] [facility] [address] [id number] [place] [address]44 Oct, [facility] [place] [facility] [address] [id number] [place] [address] Sep, [facility] [place] [facility] [address] [id number] [place] [address] 5666 Sep, [facility] [address] [id number] [place] [address]175 Sep, [facility] [place] [facility] [address] [id number] [place] [address] 5461 Sep, [facility] [place] [facility] [address] [id number] [place] [address] Sep, [facility] [place] [facility] [address] [id number] [place] [address] 62[address] Sep, [facility] [address] [id number] [place] [address] 1512 Aug, [facility] [place] [facility] [address] [id number] [place] [address] Aug, [facility] [place] [facility] [address] [id number] [place] [address] July, [facility] [place] [facility] [address] [id number] [place] [address] July, [facility] [place] [facility] [address] [id number] [place] [address] 1470 July, [facility] [place] [facility] [address] [id number] [place] [address] 8633 July, [facility] [place] [facility] [address] [id number] [place] [address]17 Jun, [facility] [place] [facility] [address] [id number] [address] May, [facility] [place] [facility] [address] [id number] [place] [address]90 May, [facility] [place] [facility] [address] [id number] [place] [address] 6310 May, [facility] [place] [facility] [address] [id number] [place] [address] 3542 Mar, [facility] [place] [facility] [address] [id number], [place] [address] Mar, [facility] [address] [id number] [place] [address] Mar, [facility] [place] [facility] [address] [id number] [place] [address] 6996 Feb, [facility] [place] [facility] [address] [id number] [place] [address] 9036 Feb, [facility] [place] [facility] [address] [id number] [place] [address] 1707 Feb, [facility] [place] [facility] [address] [id number] [place] [address] 7564 Feb, [facility] [place] [facility] [address] [id number] [place] [address] 8429 Feb, [facility] [address] [id number] [place] [address] 3984 Feb, [facility] [place] [facility] [address] [id number] [place] [address] 4453 Feb, [facility] [place] [facility] [address] [id number] [place] [address] 9189 Feb, [facility] [place] [facility] [address] [id number] [place] [address] 9610 Feb, [facility] [place] [facility] [address] [id number] [place] [address] 1529 Feb, [facility] [place] [facility] [address] [id number] [place] [address] 4446 Jan, [facility] [place] [facility] [address] [id number] [place] [address] 8824 Jan, [facility] [place] [facility] [address] [id number] [place] [address] 6682 Jan, [facility] [place] [facility] [address] [id number] [place] [address] 9271 Jan, [facility] [place] [facility] [address] [id number] [place] [address] 9586 Jan, [facility] [place] [facility] [address] [id number] [place] [address] 6902 Jan, [facility] [place] [facility] [address] [id number] [place] [address] 9253 Jan, [facility] [place] [facility] [address] [id number] [place] [address]- 6195 Jan, [facility] [place] [facility] [address] [id number] [place] [address] 5257 Jan, [facility] [place] [facility] [address] [id number] [place] [address] 4702 Jan, [facility] [place] [facility] [address] [id number] [place] [address]- 8787 Dec, [facility] [place] [facility] [address] [id number] [place] [address]- 0257 Dec, [facility] [place] [facility] [address] [id number] [place] [address] 8015 Nov, [facility] [place] [facility] [address] [id number] [place] [address]- 3403 24 Nov, 2011 [facility] [place] [facility] [address] [id number] [place] [address]- 5486 05 Nov, 2011 [facility] [place] [facility] [address] [id number] [place] [address]- 1505 Oct, [facility] [place] [facility] [address] [id number] [place] [address]- 0101 Oct, [facility] [place] [facility] [address] [id number] [place] [address]- 6066 Oct, [facility] [place] [facility] [address] [id number] [place] [address]- 7466 Oct, [facility] [place] [facility] [address] [id number] [place] [address]- 8114 18 Aug, 2011 [facility] [place] [facility] [address] [id number] [place] [address]- 8762 15 Aug, 2011 [facility] [place] [facility] [address] [id number] [place] [address]- 6819 14 Aug, 2011 [facility] [place] [facility] [address] [id number] [place] [address]- 2416 07 Aug, 2011 [facility] [place] [facility] [address] [id number] [place] [address]- 3576 08 Jun, 2011 [facility] [place] [facility] [address] [id number] [place] [address]- 2923 May, [facility] [place] [facility] [address] [id number] [place] [address]- 0316 06 May, 2011 [facility] [place] [facility] [address] [id number] [place] [address]- 2080 20 Apr, 2011 [facility] [place] [facility] [address] [id number] [place] [address]- 4425 20 Apr, 2011 [facility] [place] [facility] [address] [id number] [place] [address]- 2218 15 Apr, 2011 [facility] [place] [facility] [address] [id number] [place] [address]- 5416 14 Apr, 2011 [facility] [place] [facility] [address] [id number] [place] [address]- 5942 Mar, [facility] [place] [facility] [address] [id number] [place] [address]- 7644 Mar, [facility] [place] [facility] [address] [id number] [place] [address]- 2081 Mar, [facility] [place] [facility] [address] [id number] [place] [address]- 6102 18 Mar, 2011 [facility] [place] [facility] [address] [id number] [place] [address]- 2786 Mar, [facility] [place] [facility] [address] [id number] [place] [address]- 0534 13 Mar, 2011 [facility] [address] [id number] [place] [address]- 6450 27 Feb, 2011 [facility] [place] [facility] [address] [id number] [place] [address]- 7410 23 Jan, 2011 [facility] [address] [id number] [place] [address]- 7790 15 Jan, 2011 [facility] [place] [facility] [address] [id number] [place] [address]- 3495 Jan, [facility] [address] [id number] [place] [address]- 0727 Jan, [facility] [place] [facility] [address] [id number] [place] [address]- 6481 Jan, [facility] [address] [id number] [place] [address]- 6116 Dec, [facility] [address] [id number] [place] [address]- 5690 May, [facility] [place] [facility] [address] [id number] [place] [address]- 1426 14 Apr, 2010 [facility] [address] [id number] [place] [address]- 3654 10 Mar, 2010 [facility] [address] [id number] [place] [address]- 3214 Feb, [facility] [place] [facility] [address] [id number] [place] [address]- 5419 23 Feb, 2010 [facility] [place] [facility] [address] [id number] [place] [address]- 4125 14 Feb, 2010 [facility] [place] [facility] [address] [id number] [place] [address]- 6448 13 Feb, 2010 [facility] [place] [facility] [address] [id number] [place] Dec, [facility] [address] [facility] [id number] [place] [address] Dec, IMMUNIZATIONS No Known Immunizations SOCIAL HISTORY Never Assessed REASON FOR VISIT clarification PLAN OF CARE VITAL SIGNS MEDICATIONS Medication Instructions Dosage Frequency Start Date End Date Duration Status Metoprolol Tartrate 50 mg TAKE 1 TABLET TWICE DAILY 90 Active RESULTS No Results PROCEDURES No Known [...]
--- OUTSIDE RECORDS SUMMARY | 2017-12-04 09:58 | XMS REPORT ---
Author Author SHASHA HAN [facility] Address [address] [place] [address] Care Team Providers Care Impression Printer Name Role Phone SHASHA HAN Unavailable PROBLEMS Type Condition ICD9-CM Code [id number] Code Onset Dates Condition Status SNOMED Code Problem Obstructive sleep apnea syndrome G47.33 Active 09321406 Problem Essential hypertension I10 Active 67834428 Problem Diabetes E11.9 Active 206742956 Problem Rotator cuff syndrome of right shoulder M75.101 Active 949601636615198 Problem Constipation, unspecified constipation type K59.00 Active 46871280 Problem senior care current use of insulin Z79.4 Active 678420857 Problem Type 2 diabetes mellitus with hyperglycemia E11.65 Active 24728418 Problem Irritable bowel syndrome, unspecified type K58.9 Active 10441859 Problem Slow transit constipation K59.01 Active 68194343 Problem Gastroparesis K31.84 Active 385877997 Problem Barretts esophagus without dysplasia K22.70 Active 483452903 Problem BRITTANI (generalized anxiety disorder) F41.1 Active 43513753 Problem Bipolar disorder, current episode depressed, moderate F31.32 Active 805957166 Problem 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 VITAL SIGNS Height 67 in 2016-03-24 Weight 200.8 lbs 2016-03-24 Temperature 97.5 degrees Fahrenheit 2016-03-24 Heart Rate 88 bpm 2016-03-24 Respiratory Rate 20 2016-03-24 BMI 31.45 kg/m2 2016-03-24 Blood pressure systolic 144 mmHg 2016-03-24 Blood pressure diastolic 92 mmHg 2016-03-24 MEDICATIONS Medication Instructions Dosage Frequency Start Date End Date Duration Status Quinapril HCl 20 MG TAKE 1 TABLET EVERY DAY 24h 30 Active NovoLog Flexpen 100 UNIT/ML INJECT 20 UNITS SUBCUTANEOUSLY THREE TIMES DAILY BEFORE MEALS 50 Active C-PAP Machine N/A as directed Oct, Active Metformin HCl 500 MG Orally Twice a day 1 tablet with meals 12h 30 Active Metoprolol Tartrate 50 MG TAKE 1 TABLET TWICE DAILY 90 Active Oxybutynin Chloride 5 MG Orally Twice a day 1 tablet 12h 30 Active Nitrostat 0.4 MG Active Zenpep 46647 UNIT Orally 6 times per day 1 Capsule before meals and snacks Nov, 120 days Active Effexor XR 150 MG Orally Once a day 1 capsule with food 24h 10 Oct, 2014 Active Fish Oil 1000 MG Orally Three times a day 1 capsule 8h Active Doxycycline Hyclate 100 MG Orally every 12 hrs 1 capsule 12h Mar, Mar, 10 days Active Adult Mask N/A as directed July, Active Levemir FlexTouch 100 UNIT/ML Subcutaneous 2 times a day Inject 42units 12h 90 days Active BusPIRone HCl 10 MG TAKE ONE TABLET BY MOUTH IN THE MORNING, ONE TABLET AT NOON AND TWO TABLETS AT BEDTIME 67 Active Test strips one touch ultra test blood sugar Dec, Active Gabapentin 300 MG Orally Three times a day 3 capsule 8h 30 Active Victoza 18 MG/3ML Subcutaneous Once a day Inject 1.8mg 24h July, 30 day(s) Active Pantoprazole Sodium 40 mg Orally Once a day 1 tablet 24h 90 days Active Aspirin Adult Low Dose 81 MG Orally Once a day 1 tablet 24h Active Atorvastatin Calcium 40 MG Orally Once a day 1 tablet 24h 90 Active Vitamin E 100 UNIT Orally Once a day 1 capsule 24h Active RESULTS No Results PROCEDURES Procedure Date Ordered Related Diagnosis Body Site LACERATION REPAIR 2016-03-24 N/A Office Visit, Est Pt., Level 3 Mar 24, 2016 TDAP (BOOSTRIX) Mar 24, 2016 LACERATION >2CM Mar 24, 2016 SINGLE IMMUNIZATION ADMIN Mar 24, 2016 IMMUNIZATIONS Vaccine Route Administration Date Status TDAP (BOOSTRIX) IM Intramuscular Mar 24, 2016 Administered
--- OUTSIDE RECORDS SUMMARY | 2017-12-04 09:58 | XMS REPORT ---
Author Author JYOTSNA EMERY [facility] Address [address] [place] [address] Care Team Providers Care Weed Science Research Technician Name Role Phone JYOTSNA EMERY Unavailable PROBLEMS Type Condition ICD9-CM Code [id number] Code Onset Dates Condition Status SNOMED Code Problem Obstructive sleep apnea syndrome G47.33 Active 61718583 Problem Essential hypertension I10 Active 16005294 Problem Diabetes E11.9 Active 597685039 Problem Rotator cuff syndrome of right shoulder M75.101 Active 032546958924588 Problem Constipation, unspecified constipation type K59.00 Active 59860120 Problem correction current use of insulin Z79.4 Active 211183228 Problem Type 2 diabetes mellitus with hyperglycemia E11.65 Active 65870767 Problem Irritable bowel syndrome, unspecified type K58.9 Active 29568873 Problem Slow transit constipation K59.01 Active 30199458 Problem Gastroparesis K31.84 Active 726108088 Problem Barretts esophagus without dysplasia K22.70 Active 184423184 Problem BRITTANI (generalized anxiety disorder) F41.1 Active 40475511 Problem Bipolar disorder, current episode depressed, moderate F31.32 Active 141814734 Problem 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 01 Nov, 2014 Active 5492329 Problem Gastro-esophageal reflux disease without esophagitis K21.9 Active 001801141 Problem Panic disorder with agoraphobia F40.01 Active 82588502 Problem Type 2 diabetes mellitus with diabetic autonomic (poly)neuropathy E11.43 Active 783490513 ALLERGIES Substance Reaction Event Type Date Status Codeine Sulfate hives Drug Allergy Jun, Active Advil rash Drug Allergy Jun, Active All nsaids Unknown Non Drug Allergy Jun, Active SOCIAL HISTORY Never Assessed PLAN OF CARE Activity Details Follow Up prn Reason: VITAL SIGNS Height 67 in 2016-06-30 Weight 199 lbs 2016-06-30 Temperature 97.8 degrees Fahrenheit 2016-06-30 Heart Rate 72 bpm 2016-06-30 Respiratory Rate 20 2016-06-30 BMI 31.16 kg/m2 2016-06-30 Blood pressure systolic 146 mmHg 2016-06-30 Blood pressure diastolic 90 mmHg 2016-06-30 MEDICATIONS Medication Instructions Dosage Frequency Start Date End Date Duration Status Zenpep 10108 UNIT Orally 6 times per day 1 Capsule before meals and snacks Nov, 120 days Active Metoprolol Tartrate 50 MG TAKE 1 TABLET TWICE DAILY 90 Active Ondansetron 8 MG Orally every 6 hrs 1 tablet on the tongue and allow to dissolve 6h May, Active Adult Mask N/A as directed July, Active Nitrostat 0.4 MG Active Victoza 18 MG/3ML Subcutaneous Once a day Inject 1.8mg 24h 30 Active Pantoprazole Sodium 40 MG TAKE ONE TABLET BY MOUTH ONCE DAILY 90 Active Fish Oil 1000 MG Orally Three times a day 1 capsule 8h Active Metformin HCl 500 MG Orally Twice a day 1 tablet with meals 12h 30 Active Test strips one touch ultra test blood sugar Dec, Active Oxybutynin Chloride 5 MG Orally Twice a day 1 tablet 12h 30 Active BusPIRone HCl 10 MG TAKE ONE TABLET BY MOUTH IN THE MORNING, ONE TABLET AT NOON AND TWO TABLETS AT BEDTIME 67 Active Levemir FlexTouch 100 UNIT/ML Subcutaneous 2 times a day Inject 47units in AM and 42 in PM 12h 90 days Active RectiCare 5 % Externally Four times a day 1 application to anus as needed for pain 6h May, Active Atorvastatin Calcium 40 MG Orally Once a day 1 tablet 24h 90 Active Gabapentin 300 MG Orally Three times a day 3 capsule 8h 30 Active Aspirin Adult Low Dose 81 MG Orally Once a day 1 tablet 24h Active C-PAP Machine N/A as directed Oct, Active MiraLax - Orally at bedtime 17 grams mixed with 8 ounces of water or juice as needed May, Active Effexor XR 150 MG Orally Once a day 1 capsule with food 24h Oct, Active NovoLog Flexpen 100 UNIT/ML INJECT 20 UNITS SUBCUTANEOUSLY THREE TIMES DAILY BEFORE MEALS 50 Active Vitamin E 100 UNIT Orally Once a day 1 capsule 24h Active Quinapril HCl 20 MG TAKE 1 TABLET EVERY DAY 24h 30 Active RESULTS No Results PROCEDURES No Known [...]
--- OUTSIDE RECORDS SUMMARY | 2017-12-04 09:58 | XMS REPORT ---
Author Author JYOTSNA EMERY [facility] [employer] Address Unknown Phone Unavailable Care Team Providers Care Librarian Special Collections Name Role Phone JYOTSNA EMERY CP Unavailable Allergies No Known Allergies Problems Problem Type Condition Code Onset Dates Condition Status Problem Irritable bowel syndrome 564.1 Active Problem Barretts esophagus without dysplasia K22.70 Active Problem Gastroparesis K31.84 Active Problem Gastro-esophageal reflux disease without esophagitis K21.9 Active Problem Bipolar disorder, current episode depressed, moderate F31.32 Active Problem Type 2 diabetes mellitus with diabetic autonomic (poly)neuropathy E11.43 Active Problem Depressive disorder, not elsewhere classified 311 Active Problem 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 Nov 12, 2014 Active Problem BRITTANI (generalized anxiety disorder) F41.1 Active Problem Panic disorder with agoraphobia F40.01 Active Problem 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
--- OUTSIDE RECORDS SUMMARY | 2017-12-04 09:58 | XMS REPORT ---
Author Author JYOTSNA EMERY [facility] e[employer] Address Unknown Phone Unavailable Care Team Providers Care Machine Joint Cutter Name Role Phone JYOTSNA EMERY CP Unavailable [...] Coronary atherosclerosis of unspecified type of vessel, [place] or graft 414.00 Active Problem Unspecified backache 724.5 Active Medications No Known Medications Results No Known Results Summary Purpose eClinicalWorks Submission
--- OUTSIDE RECORDS SUMMARY | 2017-12-04 09:59 | XMS REPORT ---
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 Nov 12, 2014 Active Problem Irritable bowel syndrome 564.1 Active Problem Depressive disorder, not elsewhere classified 311 Active Problem Esophageal reflux 530.81 Active Problem Unspecified backache 724.5 Active Problem Unspecified essential hypertension 401.9 Active Problem Other and unspecified hyperlipidemia 272.4 Active Assessment Agoraphobia with panic disorder F40.01 Active Assessment Generalized anxiety disorder F41.1 Active Assessment Bipolar disorder, current episode depressed, moderate F31.32 Active Medications Medication Code System Code Instructions Start Date End Date Status Dosage BusPIRone HCl [facility] [address]-09 10 MG Orally 1 tab in AM and 12 Noon and take 2 tabs at HS Jan 06, 2015 1 tablet Pantoprazole Sodium [facility] [address]-12 40 MG Orally August 14, 2014 1 tablet in the AM 2 tabs in PM Atorvastatin Calcium [facility] [address]-65 40 MG Orally Once a day 1 tablet Quinapril HCl [facility] [address]-40 20 MG Once a day TAKE 1 TABLET EVERY DAY tramadol [place] 0 50 mg May 30, 2014 take 1 tablet to 2 tabs by Oral route every 8 hours as needed PRN pain Bentyl [facility] [address]-04 20 mg Dec 14, 2013 1 tablet by Oral route 4 times per day PRN 90 day supply Effexor XR [facility] [address]-92 150 MG Orally Once a day Oct 21, 2014 1 capsule with food Bydureon [facility] [address]-62 2 MG Subcutaneous once weekly August 06, 2014 2mg Metoprolol Tartrate [facility] [address]-28 50 MG TAKE 1 TABLET TWICE DAILY Fish Oil [facility] [address]-06 1000 MG Orally Three times a day 1 capsule NovoLog Flexpen [facility] [address]-72 100 UNIT/ML Subcutaneous 3 times a day 20 unit with meals Vitamin E [facility] [address]-33 100 UNIT Orally Once a day 1 capsule Metformin HCl [facility] [address]-63 500 MG Orally Twice a day July 16, 2014 1 tablet with meals Gabapentin [facility] [address]-20 300 MG Orally Three times a day August 14, 2014 3 capsule Oxybutynin Chloride [facility] [address]-92 5 MG Orally Twice a day May 28, 2014 1 tablet Latuda [facility] [address]-49 60 MG Orally Once with evening meal Dec 19, 2014 1 tablet with food C-PAP Machine [facility] 0 N/A Once a day at night Nov 06, 2014 as directed Test strips [facility] 0 one touch ultra 2 times a day DX code: E11.329 Jan 03, 2015 test blood sugar Levemir FlexTouch [facility] 97226353927 100 UNIT/ML INJECT 42 UNITS SUBCUTANEOUSLY TWICE DAILY Nitrostat [facility] [address]-47 0.4 MG Sublingual not defined Procedures Procedure Coding System Code Date Office Visit, Est Pt., Level 4 CPT-4 32982 Jan 16, 2015 Vital Signs Date/Time: Jan 16, 2015 Cardiac Monitoring Heart Rate 92 bpm Weight 204.5 lbs Height 67 in BMI 32.03 Index Blood Pressure Diastolic 78 mmHg Blood Pressure Systolic 135 mmHg Results No Known Results Summary Purpose eClinicalWorks Submission
--- OUTSIDE RECORDS SUMMARY | 2017-12-04 09:59 | XMS REPORT ---
Author RABIA Hernandez [employer] Address Unknown Phone Unavailable Care Team Providers Care Division Sales Manager Name Role Phone RABIA VALENTE CP Unavailable Allergies, Adverse Reactions, Alerts Substance [...] Coronary atherosclerosis of unspecified type of vessel, [place] or graft 414.00 Active Assessment Encounter for dental examination and cleaning without abnormal findings Z01.20 Active Problem Unspecified backache 724.5 Active Medications Medication Code System Code Instructions Start Date End Date Status Dosage BusPIRone HCl [facility] [address]-39 10 MG Orally Three times a day 1 tab in AM, 1 Tab at noon 2 tabs at HS 1 tablet Levemir FlexTouch [facility] [address]-60 100 UNIT/ML INJECT 42 UNITS SUBCUTANEOUSLY TWICE DAILY C-PAP Machine [facility] 0 N/A Once a day at night Nov 06, 2014 as directed Latuda [facility] [address]-87 60 MG Orally Once with evening meal Dec 19, 2014 1 tablet with food Gabapentin [facility] 09938941129 300 MG Orally Three times a day 3 capsule Vitamin E [facility] [address]-63 100 UNIT Orally Once a day 1 capsule Effexor XR [facility] [address]-66 150 MG Orally Once a day Oct 21, 2014 1 capsule with food Pantoprazole Sodium [facility] 09016957396 40 MG Orally 1 tablet in the AM 2 tabs in PM Bydureon [facility] 27524196907 2 MG Subcutaneous once weekly 2mg Oxybutynin Chloride [facility] 05751968355 5 MG Orally Twice a day 1 tablet Metformin HCl [facility] 79728281377 500 MG Orally Twice a day 1 tablet with meals tramadol ND 0 50 mg May 30, 2014 take 1 tablet to 2 tabs by Oral route every 8 hours as needed PRN pain Fish Oil [facility] [address]-49 1000 MG Orally Three times a day 1 capsule Atorvastatin Calcium [facility] 09335964398 40 MG Orally Once a day 1 tablet Metoprolol Tartrate [facility] 07092168418 50 MG TAKE 1 TABLET TWICE DAILY NovoLog Flexpen [facility] [address]-21 100 UNIT/ML Subcutaneous 3 times a day 20 unit with meals Quinapril HCl [facility] 80886403803 20 MG Once a day TAKE 1 TABLET EVERY DAY Nitrostat [facility] [address]-37 0.4 MG Sublingual not defined Test strips [facility] 0 one touch ultra 2 times a day DX code: E11.329 Jan 03, 2015 test blood sugar Bentyl [facility] [address]-02 20 mg Dec 14, 2013 1 tablet by Oral route 4 times per day PRN 90 day supply Procedures Procedure Coding System Code Date Billing Notes on claim CPT-4 EC109 June 05, 2015 LTD ORAL EVALUATION - PROBLEM FOCUS CPT-4 D0140 June 05, 2015 Results No Known Results Summary Purpose eClinicalWorks Submission
--- OUTSIDE RECORDS SUMMARY | 2017-12-04 09:59 | XMS REPORT ---
Author Author JYOTSNA EMERY Organization [facility] Address [address] [place] [address] Care Team Providers Care Bmw Service Technician Name Role Phone JYOTSNA EMERY Unavailable PROBLEMS Type Condition ICD9-CM Code [id number] Code Onset Dates Condition Status SNOMED Code Problem Obstructive sleep apnea syndrome G47.33 Active 49762005 Problem Essential hypertension I10 Active 23371530 Problem Diabetes E11.9 Active 947008333 Problem Rotator cuff syndrome of right shoulder M75.101 Active 598696745813688 Problem Constipation, unspecified constipation type K59.00 Active 33382801 Problem detention current use of insulin Z79.4 Active 603652751 Problem Type 2 diabetes mellitus with hyperglycemia E11.65 Active 33168298 Problem Irritable bowel syndrome, unspecified type K58.9 Active 06429398 Problem Slow transit constipation K59.01 Active 06505361 Problem Gastroparesis K31.84 Active 750123067 Problem Barretts esophagus without dysplasia K22.70 Active 038985518 Problem BRITTANI (generalized anxiety disorder) F41.1 Active 77573117 Problem Bipolar disorder, current episode depressed, moderate F31.32 Active 570359693 Problem 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
--- OUTSIDE RECORDS SUMMARY | 2017-12-04 09:59 | XMS REPORT ---
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 01 Nov, 2014 Active 5279506 Problem Obstructive sleep apnea syndrome G47.33 Active 54228070 Problem Type 2 diabetes mellitus with diabetic autonomic (poly)neuropathy E11.43 Active 087066754 Problem BRITTANI (generalized anxiety disorder) F41.1 Active 85059201 Problem Panic disorder with agoraphobia F40.01 Active 53191530 Problem Gastro-esophageal reflux disease without esophagitis K21.9 Active 743797691 Problem Bipolar disorder, current episode depressed, moderate F31.32 Active 309574025 Problem Family history of malignant neoplasm of gastrointestinal tract V16.0 Active 588652726 Problem Coronary atherosclerosis of unspecified type of vessel, [place] or graft 414.00 Active 88383993 Problem 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
--- OUTSIDE RECORDS SUMMARY | 2017-12-04 10:00 | XMS REPORT ---
Author Author JYOTSNA EMERY Organization [facility] Address [address] [place] [address] Care Team Providers Care Commercial Title Examiner Name Role Phone JYOTSNA EMERY Unavailable PROBLEMS Type Condition ICD9-CM Code YTV43-XG Code Onset Dates Condition Status SNOMED Code Problem Diabetes E11.9 Active 089493808 Problem Type 2 diabetes mellitus with hyperglycemia E11.65 Active 39632287 Problem Essential hypertension I10 Active 26675293 Problem Diabetic polyneuropathy associated with diabetes mellitus due to underlying condition E08.42 Active 01077783 Problem Rotator cuff syndrome of right shoulder M75.101 Active [id number] Problem Slow transit constipation K59.01 Active 10721445 Problem retirement current use of insulin Z79.4 Active 056557765 Problem Constipation, unspecified constipation type K59.00 Active 96325067 Problem Irritable bowel syndrome, unspecified type K58.9 Active 72776330 Problem Barretts esophagus without dysplasia K22.70 Active 464013379 Problem 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 Nov, Active 3721288 Problem Herniation of intervertebral disc at C5-C6 level M50.222 Active 418774010 Problem Gastroparesis K31.84 Active 985766135 Problem Bipolar disorder, current episode depressed, moderate F31.32 Active 504143625 Problem Gastro-esophageal reflux disease without esophagitis K21.9 Active 139625819 Problem Panic disorder with agoraphobia F40.01 Active 59801990 Problem Type 2 diabetes mellitus with diabetic autonomic (poly)neuropathy E11.43 Active 423107586 Problem BRITTANI (generalized anxiety disorder) F41.1 Active 58965884 Problem Obstructive sleep apnea syndrome G47.33 Active 30690218 ALLERGIES No Information ENCOUNTERS Encounter Location Date Diagnosis [facility] [address] [facility] [id number] [address] Jun, Type 2 diabetes mellitus with diabetic autonomic (poly) neuropathy E11.43 and Type 2 diabetes mellitus with hyperglycemia E11.65 [facility] [address] [address] May, [facility] [address] [address]- [address] May, Bipolar disorder, current episode depressed, moderate F31.32 [facility] [address] [address] May, [facility] [address] [address]- [address] May, Diabetic polyneuropathy associated with diabetes mellitus due to underlying condition E08.42 [place] [address] [address]- [address] Apr, [place] [address] [address]231- 8371 Feb, Ganglion cyst of dorsum of right wrist M67.431 [place] [address] 99304- 3395 Jan, Other cyst of bone, right forearm M85.631 [place] [address] 83184- 2717 Jan, [place] [address] [address]42- 1640 Jan, Diabetes E11.9 and Right forearm pain M79.631 [place] [address] [address]- [address]234 Dec, Encounter for immunization Z23 [place] [address] 24[address]- 4100 Nov, [place] [address] [address]751- 7632 Nov, Type 2 diabetes mellitus with hyperglycemia E11.65 [place] [address] 91386- 0180 Nov, Severe pain of right shoulder M25.511 [facility] [address] [place] [id number] [place] [address] 81402- 5617 Oct, Diabetes E11.9 [facility] [address] [place] [id number] [place] [address] 20320- 4817 Oct, Diabetes E11.9 [facility] [address] [place] [id number] [place] [address] 66588- 8987 Oct, [facility] [address] [place] [id number] [place] [address] 15924- 5564 Oct, [facility] [address] [place] [id number] [place] [address] 55939- 8122 Oct, Rotator cuff syndrome of right shoulder M75.101 [place] [address] [place] [id number] [place] [address] 65863- 3481 Oct, Diabetes E11.9 [facility] [address] [place] [id number] [place] [address] 37650- 7910 Sep, Type 2 diabetes mellitus with hyperglycemia E11.65 ; Obstructive sleep apnea syndrome G47.33 and Constipation, unspecified constipation type K59.00 [facility] [address] [place] [id number] [place] [address] 84884- 3130 Aug, [facility] [address] [place] [id number] [place] [address] 43451- 9285 Aug, [facility] [address] [place] [id number] [place] [address] 04726- 9633 Aug, Type 2 diabetes mellitus with diabetic autonomic (poly) neuropathy E11.43 [facility] [address] [place] [id number] [place] [address] 88242- 4769 July, Type 2 diabetes mellitus with hyperglycemia E11.65 [facility] [address] [place] [id number] [place] [address] 70926- 4551 Jun, Slow transit constipation K59.01 [facility] [address] [place] [address]- 0753 May, [place] [address] [place] [id number] [place] [address] 94284- 6222 May, Diabetes E11.9 [place] [address] 58623- 5097 May, [facility] [place] [address] 30829 -1472 Apr, [place] [address] 37016- 7700 Apr, Gastroenteritis K52.9 [facility] [place] [address] 46496 -9470 Apr, Abdominal pain, unspecified location R10.9 ; Gastroenteritis K52.9 ; Type 2 diabetes mellitus with hyperglycemia E11.65 and 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 [place] [address] [place] [id number] [place] [address] 98653- 2846 Apr, [place] [address] 03936- 4748 Apr, [place] [address] [place] [id number] [place] [address] 93243- 5369 Apr, Diabetes E11.9 ; Gastroparesis K31.84 ; Generalized abdominal pain R10.84 ; Essential hypertension I10 ; Bronchitis J40 and Other fatigue R53.83 [facility] [address] [place] [id number] [place] [address] 71356 -0137 Mar, [facility] [place] [address] 31880 -9340 Mar, [facility] [place] [address] 68154 -4633 Mar, Laceration of scalp without foreign body, initial encounter S01.01XA ; Laceration of face, initial encounter S01.81XA and Encounter for immunization Z23 [place] [address] [place] [id number] [place] [address] 50485- 8181 Mar, Type 2 diabetes mellitus with diabetic autonomic (poly) neuropathy E11.43 [place] [address] [place] [id number] [place] [address] 36106- 3110 Feb, [place] [address] [place] [id number] [place] [address] 58927- 0186 Feb, Internal hemorrhoids K64.8 and Obstructive sleep apnea syndrome G47.33 [place] [address] [place] [id number] [place] [address] 38218- 3878 Feb, SI (sacroiliac) joint dysfunction M53.[address] 91814- 6556 Jan, [place] [address] 58735- 1529 Dec, Gastroparesis K31.84 [place] [address] 61901- 7880 Dec, [address] 18077- 9437 Dec, Right hip pain M25.551 ; Nose congested R09.81 and Encounter for immunization Z23 [place] [address] [place] [id number] [place] [address] 92053- 3517 Nov, Diabetes E11.9 ; Gastroparesis K31.84 ; Type 2 diabetes mellitus with diabetic autonomic (poly)neuropathy E11.43 and Obstructive sleep apnea syndrome G47.33 [place] [address] [place] [id number] [place] [address] 22665- 9065 Oct, [place] [address] 85361- 0562 Aug, [place] [address] [place] [id number] [place] [address] 28840- 8464 July, Gastro-esophageal reflux disease without esophagitis K21.9 [facility] [address] [place] [id number] [place] [address] 32299- 2323 July, [facility] [address] [place] [id number] [place] [address] 98423- 1999 July, Diabetes E11.9 [facility] [address] [place] [id number] [place] [address] 19720- 9748 July, Diabetes E11.9 ; Obstructive sleep apnea syndrome G47.33 and Neuropathy G62.9 [facility] [address] [place] [id number] [place] [address] 34443- 3817 July, Bipolar disorder, current episode depressed, moderate F31.32 ; BRITTANI (generalized anxiety disorder) F41.1 and Panic disorder with agoraphobia F40.01 [place] [address] [place] [id number] [place] [address] 09723- 9176 Jun, [facility] [address] [place] [id number] [place] [address] 51834- 9388 Jun, [facility] [address] [place] [id number] [place] [address] 29196- 4780 Jun, [facility] [address] [place] [id number] [place] [address] 31187- 6481 Jun, [facility] [address] [place] [id number] [place] [address] [id number] May, Encounter for dental examination and cleaning without abnormal findings Z01.20 [facility] [address] [place] [id number] [place] [address] 62166- 3178 Apr, [facility] [address] [place] [id number] [place] [address] 29644- 0037 Apr, [facility] [address] [place] [id number] [place] [address] 98691- 4511 Apr, Bipolar disorder, current episode depressed, moderate F31.32 ; BRITTANI (generalized anxiety disorder) F41.1 and Panic disorder with agoraphobia F40.01 [facility] [address] [place] [id number] [place] [address] 09310- 1359 04 Apr, 2015 Hyperlipidemia, unspecified E78.5 [facility] [address] [place] [id number] [place] [address] [id number] Apr, Dental caries K02.9 [facility] [address] [place] [id number] [place] [address] [id number] Feb, Dental caries K02.9 and Encounter for dental examination Z01.20 [place] [address] [place] [id number] [place] [address] 05508- 2832 Feb, [place] [address] 14005- 2268 15 Feb, 2015 Diabetes E11.9 ; Insulin long-term use Z79.4 ; Diabetic polyneuropathy associated with diabetes mellitus due to underlying condition E08.42 and Barretts esophagus with high grade dysplasia K22.711 [place] [id number] [place] [address] 52562- 3912 Feb, [place] [id number] [place] [address] 51669- 8824 Jan, Pain in right hip M25.551 and Other chronic pain G89.29 [place] [id number] [place] [address] 22947- 0951 Jan, Impingement syndrome, shoulder, left M75.42 [place] [id number] [place] [address] 62899- 1644 Jan, Bipolar disorder, current episode depressed, moderate F31.32 ; Generalized anxiety disorder F41.1 and Agoraphobia with panic disorder F40.[address] 83189- 9746 Jan, [place] [address] [place] [id number] [place] [address] 11904- 9220 Dec, [place] [address] 46142- 1408 Dec, [facility] [address] [address]- 3192 Dec, Right hip pain M25.551 and Left shoulder pain M25.512 [facility] [address] [id number] [address]- 6362 Dec, Bipolar 1 disorder, depressed, moderate F31.32 ; BRITTANI ( generalized anxiety disorder) F41.1 and Panic disorder with agoraphobia F40.01 [facility] [address] [id number] [place] [address] 96157- 4552 Dec, [facility] [address] [place] [id number] [place] [address] 83854- 0277 Dec, [facility] [address] [place] [id number] [place] [address] 92263- 3922 Nov, [facility] [address] [place] [id number] [place] [address] 99052- 9783 18 Nov, 2014 [facility] [address] [place] [id number] [place] [address] 70051- 7413 Nov, [facility] [address] [place] [id number] [place] [address] 34913- 5313 14 Nov, 2014 Diabetes 250.00 [facility] [address] [place] [id number] [place] [address] 83717- 2287 Oct, [facility] [address] [place] [address] 64858- 9604 Oct, [facility] [address] [place] [id number] [place] [address] 75628- 0901 Oct, [facility] [address] [place] [id number] [place] [address] 63868- 3956 Oct, [facility] [address] [address]- 9635 Oct, [facility] [address] [place] [id number] [place] [address] 76802- 9417 Oct, [facility] [address], [place] [address]- 7007 Oct, Diabetes 250.00 ; Insomnia 780.52 and Forgetfulness 780.99 [facility] [address] [address]- 1867 Oct, Depressive disorder, not elsewhere classified 311 [facility] [address] [place] [id number] [place] [address] 66313- 3666 Sep, [facility] [address] [id number] [address]- 0238 Sep, [facility] [address] [place] [id number] [place] [address] 88637- 0328 Sep, [facility] [address] [id number] [address]- 1434 Sep, [facility] [address] [place] [id number] [place] [address] 71126- 6275 Sep, [facility] [address], [place] [address]- 1651 Sep, [facility] [address] [place] [id number] [place] [address] 161129- 8173 Sep, [facility] [address] [address]- 5896 Aug, [facility] [address] [id number] Aug, Dental examination V72.2 [facility] [address] [address]- 9866 Aug, [facility] [address] [place] [id number] [address]- 7276 Aug, [facility] [address], [place] [address]- 7812 July, [facility] [address] [id number] [place] [address] 07631- 3129 July, [facility] [address] [id number] [place] [address]- 8354 July, [facility] [place] [facility] [address] [id number] [place] [address]- 7597 July, [facility] [place] [facility] [address] [facility] [id number] [place] [address]- 0179 Jun, [facility] [place] [facility] [address] [id number] [place] [address]- 6571 Jun, [facility] [place] [facility] [address] [id number] [place] [address]- 4857 May, [facility] [place] [facility] [address] [id number] [place] [address]- 5934 May, [facility] [place] [facility] [address] [facility] [id number] [place] [address]- 8694 May, [facility] [place] [facility] [address] [facility] [id number] [place] [address]- 8151 May, [facility] [place] [facility] [address] [facility] [id number] [place] [address]- 1931 May, [facility] [place] [facility] [address] [facility] [id number] [place] [address]- 3816 May, [facility] [place] [facility] [address] [id number] [place] [address]- 3712 16 May, 2014 [facility] [place] [facility] [address] [facility] [id number], [place] [address]- 5467 May, [facility] [place] [facility] [address] [id number] [place] [address]- 7564 Apr, [facility] [place] [facility] [address] [id number] [place] [address]- 3218 Apr, [facility] [place] [facility] [address] [facility] [id number] [address]- 4621 Apr, [facility] [place] [facility] [address] [id number] [place] [address]- 7123 Apr, [facility] [place] [facility] [address] [id number] [place] [address]- 1336 Apr, [facility] [place] [facility] [address] [id number] [place] [address]- 1645 Apr, [facility] [place] [facility] [address] [id number] [place] [address]- 9820 Mar, [facility] [place] [facility] [address] [id number] [place] [address]- 6644 Mar, [facility] [place] [facility] [address] [id number] [place] [address]- 7308 Mar, [facility] [place] [facility] [address] [id number] [place] [address]- 3977 Mar, [facility] [place] [facility] [address] [id number] [place] [address]- 3433 Mar, [facility] [place] [facility] [address] [id number] [place] [address]- 6703 Mar, [facility] [place] [facility] [address] [id number] [place] [address]- 6759 Mar, [facility] [place] [facility] [address] [id number] [place] [address]- 4654 Mar, [facility] [place] [facility] [address] [id number] [place] [address]- 5113 Mar, [facility] [place] [facility] [address] [id number] [place] [address]- 3845 Mar, [facility] [place] [facility] [address] [id number] [place] [address]- 1207 Mar, [facility] [place] [facility] [address] [id number] [place] [address]- 0423 Mar, [facility] [place] [facility] [address] [id number] [place] [address]- 6719 Mar, [facility] [place] [facility] [address] [id number] [place] [address]- 8472 Mar, [facility] [place] [facility] [address] [id number] [place] 4462 Feb, [facility] [place] [facility] [address] [id number] [place] [address]- 9606 Feb, [facility] [place] [facility] [address] [id number] [place] [address]- 2661 Feb, [facility] [place] [facility] [address] [id number] [place] [address]- 1872 Feb, [facility] [place] [facility] [address] [id number] [place] [address]- 2269 Feb, [facility] [place] [facility] [address] [id number] [place] [address]- 4925 Feb, [facility] [place] [facility] [address] [id number] [place] [address]- 3150 16 Feb, 2014 [facility] [place] [facility] [address] [id number] [place] [address]- 0671 Feb, [facility] [place] [facility] [address] [id number] [place] [address]- 2965 16 Feb, 2014 [facility] [place] [facility] [address] [id number] [place] [address]- 4654 16 Feb, 2014 [facility] [place] [facility] [address] [id number] [place] [address]- 8733 10 Feb, 2014 [facility] [place] [facility] [address] [id number] [place] [address]- 5380 Feb, [facility] [place] [facility] [address] [id number] [place] 6526 Feb, [facility] [place] [facility] [address] [id number] [place] 5128 Feb, [facility] [place] [facility] [address] [id number] [place] [address]- 5162 Jan, [facility] [place] [facility] [address] [id number] [place] [address]- 0945 Jan, [facility] [place] [facility] [address] [id number] [place] [address] 2544 Jan, [facility] [place] [facility] [address] [id number] [place] [address]- 2490 Jan, [facility] [place] [facility] [address] [id number] [place] [address]- 6761 Dec, [facility] [place] [facility] [address] [id number] [place] [address]- 8877 Dec, [facility] [place] [facility] [address] [id number] [place] 6185 Dec, [facility] [place] [facility] [address] [id number] [place] [address]- 1909 Dec, [facility] [place] [facility] [address] [id number] [place] [address]- 9362 Dec, [facility] [place] [facility] [address] [id number] [place] [address]- 9577 Dec, [facility] [place] [facility] [address] [id number] [place] [address]- 5531 Dec, [facility] [place] [facility] [address] [id number] [place] [address]- 7918 Dec, [facility] [place] [facility] [address] [id number] [place] [address]- 4939 30 Nov, 2013 [facility] [place] [facility] [address] [id number] [place] [address]- 5091 17 Nov, 2013 [facility] [place] [facility] [address] [id number] [place] [address] 2542 17 Nov, 2013 [facility] [place] [facility] [address] [id number] [place] [address]- 3352 Nov, [facility] [place] [facility] [address] [id number] [place] [address]- 9120 Nov, [facility] [place] [facility] [address] [id number] [place] [address]- 6769 Oct, [facility] [place] [facility] [address] [id number] [place] [address]- 6203 Oct, [facility] [place] [facility] [address] [id number] [place] [address]- 4555 Sep, [facility] [place] [facility] [address] [id number] [place] [address]- 4532 Sep, [facility] [place] [facility] [address] [id number] [place] [address]- 6404 Sep, [facility] [place] [facility] [address] [id number] [place] [address]- 1058 Sep, [facility] [place] [facility] [address] [id number] [place] [address]- 0917 Sep, [facility] [place] [facility] [address] [id number] [place] [address]- 3226 Sep, [facility] [place] [facility] [address] [id number] [place] [address]- 3537 Sep, [facility] [place] [facility] [address] [id number] [place] [address]- 5275 Sep, [facility] [place] [facility] [address] [id number] [place] [address]- 4022 Sep, [facility] [place] [facility] [address] [id number] [place] [address]- 1232 Sep, [facility] [place] [facility] [address] [id number] [place] [address]- 2479 Sep, [facility] [place] [facility] [address] [id number] [place] [address]- 3010 Sep, [facility] [place] [facility] [address] [id number] [place] [address] Sep, [facility] [place] [facility] [address] [id number] [place] [address] Sep, [facility] [place] [facility] [address] [id number] [place] [address] July, [facility] [place] [facility] [address] [id number] [place] [address] July, [facility] [place] [facility] [address] [id number] [place] [address] July, [facility] [place] [facility] [address] [id number] [id number] [address] July, [facility] [place] [facility] [address] [id number] [place] [address] July, [facility] [place] [facility] [address] [id number] [place] [address] July, [facility] [place] [facility] [address] [id number] [place] [address] July, [facility] [place] [facility] [address] [id number] [place] [address] July, [facility] [place] [facility] [address] [id number] [place] [address] Jun, [facility] [place] [facility] [address] [id number] [place] [address] Jun, [facility] [place] [facility] [address] [id number] [place] [address] Jun, [facility] [place] [facility] [address] [id number] [place] [address] Jun, [facility] [place] [facility] [address] [id number] [place] [address] Jun, [facility] [place] [facility] [address] [id number] [place] [address] Jun, [facility] [place] [facility] [address] [id number] [place] [address] Jun, [facility] [place] [facility] [address] [id number] [place] [address] Jun, [facility] [place] [facility] [address] [id number] [place] [address] 27 May, 2013 [facility] [place] [facility] [address] [id number] [place] [address] 27 May, 2013 [facility] [place] [facility] [address] [id number] [place] [address] 21 May, 2013 [facility] [place] [facility] [address] [id number] [place] [address] 21 May, 2013 [facility] [place] [facility] [address] [id number] [place] [address] 20 May, 2013 [facility] [place] [facility] [address] [id number] [place] [address] 20 May, 2013 [facility] [place] [facility] [address] [id number] [place] [address] 19 May, 2013 [facility] [place] [facility] [address] [id number] [place] [address] 19 May, 2013 [facility] [place] [facility] [address] [id number] [place] [address] 17 May, 2013 [facility] [place] [facility] [address] [id number] [place] [address] 17 May, 2013 [facility] [place] [facility] [address] [id number] [place] [address] 17 May, 2013 [facility] [place] [facility] [address] [id number] [place] [address] 17 May, 2013 [facility] [place] [facility] [address] [id number] [place] [address] 12 May, 2013 [facility] [place] [facility] [address] [id number] [place] [address] May, [facility] [place] [facility] [address] [id number] [place] [address] May, [facility] [place] [facility] [address] [id number] [place] [address]84 May, [facility] [place] [facility] [address] [id number] [place] [address] Apr, [facility] [place] [facility] [address] [id number] [place] [address] 1774 Apr, [facility] [place] [facility] [address] [id number] [place] [address] Mar, [facility] [place] [facility] [address] [id number] [place] [address] Mar, [facility] [place] [facility] [address] [id number] [place] [address] Mar, [facility] [place] [facility] [address] [id number] [place] [address] Mar, [facility] [place] [facility] [address] [id number] [place] [address] Mar, [facility] [place] [facility] [address] [id number] [place] [address] 8[address] Mar, [facility] [place] [facility] [address] [id number] [address] Feb, [facility] [place] [facility] [address] [id number] [place] [address] 4[address] Feb, [facility] [place] [facility] [address] [id number] [id number] [address] Feb, [facility] [place] [facility] [address] [id number] [place] [address] Feb, [facility] [place] [facility] [address] [id number] [place] [address] Feb, [facility] [place] [facility] [address] [id number] [place] [address]48 Feb, [facility] [address] [id number] [place] [address] Jan, [facility] [place] [facility] [address] [id number] [place] [address] Jan, [facility] [address] [id number] [place] [address] 4164 Jan, [facility] [place] [facility] [address] [id number] [place] [address] Jan, [facility] [address] [id number] [place] [address] 5227 Jan, [facility] [place] [facility] [address] [id number] [place] [address] 0449 Jan, [facility] [place] [facility] [address] [id number] [place] [address] 49[address] Jan, [facility] [address] [id number] [place] [address]127 Dec, [facility] [place] [facility] [address] [id number] [place] [address] 5682 Dec, [facility] [address] [id number] [place] [address]- 1091 Dec, [facility] [place] [facility] [address] [id number] [place] [address] 65[address] Nov, [facility] [place] [facility] [address] [id number] [place] [address]65 Oct, [facility] [place] [facility] [address] [id number] [place] [address] 3512 Sep, [facility] [place] [facility] [address] [id number] [place] [address] 2540 Sep, [facility] [place] [facility] [address] [id number] [place] [address] 8596 Sep, [facility] [address] [id number] [place] [address] 7199 Sep, [facility] [place] [facility] [address] [id number] [place] [address]- 9049 Sep, [facility] [place] [facility] [address] [id number] [place] [address] 1267 Sep, [facility] [place] [facility] [address] [id number] [place] [address] 4382 Aug, [facility] [address] [id number] [place] [address]102 Aug, [facility] [place] [facility] [address] [id number] [place] [address] 6361 July, [facility] [place] [facility] [address] [id number] [place] [address] 8810 July, [facility] [place] [facility] [address] [id number] [place] [address] 9998 July, [facility] [place] [facility] [address] [id number] [place] [address] 6225 July, [facility] [place] [facility] [address] [id number] [place] [address] 275[address] Jun, [facility] [place] [facility] [address] [id number] [place] [address] 9[address] May, [facility] [place] [facility] [address] [id number], [place] [address] May, [facility] [place] [facility] [address] [id number] [place] [address] May, [facility] [place] [facility] [address] [id number] [place] [address]706 Mar, [facility] [place] [facility] [address] [id number], [place] [address] 15[address] Mar, [facility] [place] [facility] [address] [id number], [place] [address] Mar, [facility] [place] [facility] [address] [id number] [place] [address] 9747 Feb, [facility] [place] [facility] [address] [id number] [place] [address] 7476 Feb, [facility] [place] [facility] [address] [id number] [place] [address] Feb, [facility] [place] [facility] [address] [id number] [place] [address] 0164 Feb, [facility] [place] [facility] [address] [id number] [place] [address] 4121 Feb, [facility] [place] [facility] [address] [id number] [place] [address]- 2501 Feb, [facility] [id number] [place] [address] Feb, [facility] [place] [facility] [address] [id number] [place] [address]- 9553 Feb, [facility] [place] [facility] [address] [id number] [place] [address]- 1152 Feb, [facility] [place] [facility] [address] [facility] [id number] [place] [address] 1587 Feb, [facility] [place] [facility] [address] [id number] [place] [address]- 9763 Jan, [facility] [place] [facility] [address] [id number] [place] [address]- 4777 Jan, [facility] [place] [facility] [address] [id number] [place] [address]- 0491 Jan, [facility] [place] [facility] [address] [id number] [place] [address] 1302 Jan, [facility] [place] [facility] [id number] [place] [address] Jan, [facility] [place] [facility] [address] [id number] [place] [address] 5207 Jan, [facility] [place] [facility] [address] [id number] [place] [address]- 8546 Jan, [facility] [place] [facility] [address] [id number] [place] [address]- 0106 Jan, [facility] [place] [facility] [address] [id number] [place] [address]- 8514 Jan, [facility] [place] [facility] [address] [id number] [place] [address] 4195 Jan, [facility] [place] [facility] [address] [id number] [place] [address]- 3411 Dec, [facility] [place] [facility] [address] [id number] [place] [address]- 6714 Dec, [facility] [place] [facility] [address] [id number] [place] [address]- 7112 Nov, [facility] [place] [facility] [address] [id number] [place] [address]- 4130 24 Nov, 2011 [facility] [place] [facility] [address] [id number] [place] [address]- 6436 05 Nov, 2011 [facility] [place] [facility] [address] [id number] [place] [address]- 8397 Oct, [facility] [place] [facility] [address] [id number] [place] [address]- 2661 Oct, [facility] [place] [facility] [address] [id number] [place] [address]- 5189 Oct, [facility] [place] [facility] [address] [id number] [place] [address] Oct, [facility] [place] [facility] [address] [id number] [place] [address]- 6656 Aug, [facility] [place] [facility] [address] [id number] [place] [address]- 1290 15 Aug, 2011 [facility] [place] [facility] [address] [id number] [place] [address]- 7541 14 Aug, 2011 [facility] [place] [facility] [address] [id number] [place] [address]- 9382 07 Aug, 2011 [facility] [place] [facility] [address] [id number] [place] [address]- 6650 08 Jun, 2011 [facility] [place] [facility] [address] [id number] [place] [address]- 4435 May, [facility] [place] [facility] [address] [id number] [place] [address]- 0630 May, [facility] [place] [facility] [address] [id number] [place] [address]- 9405 20 Apr, 2011 [facility] [place] [facility] [address] [id number] [place] [address]- 0688 20 Apr, 2011 [facility] [place] [facility] [address] [id number] [place] [address]- 7332 15 Apr, 2011 [facility] [place] [facility] [address] [id number] [place] [address]- 5432 14 Apr, 2011 [facility] [place] [facility] [address] [id number] [place] [address]- 0822 24 Mar, 2011 [facility] [place] [facility] [address] [id number] [place] [address]- 8192 Mar, [facility] [place] [facility] [address] [id number] [place] [address]- 8941 19 Mar, 2011 [facility] [place] [facility] [address] [id number] [place] [address]- 6817 18 Mar, 2011 [facility] [place] [facility] [address] [id number] [place] [address]- 4883 13 Mar, 2011 [facility] [place] [facility] [address] [id number] [place] [address]- 8324 13 Mar, 2011 [facility] [place] [facility] [address] [id number] [place] [address]- 7231 Feb, [facility] [address] [id number] [place] [address]- 3544 Jan, [facility] [place] [facility] [address] [id number] [place] [address]- 5066 Jan, [facility] [address] [id number] [place] [address]- 9726 Jan, [facility] [place] [facility] [address] [id number] [place] [address]- 9248 Jan, [facility] [address] [id number] [place] [address]- 4346 Jan, [facility] [place] [facility] [address] [id number] [place] [address]- 9909 Dec, [facility] [address] [id number] [place] [address]- 6796 May, [facility] [address] [id number] [place] [address]- 1062 14 Apr, 2010 [facility] [place] [facility] [address] [id number] [place] [address]- 7547 Mar, [facility] [address] [id number] [place] [address]- 3888 Feb, [facility] [place] [facility] [address] [id number] [place] [address]- 2545 Feb, [facility] [place] [facility] [address] [id number] [place] [address]- 2546 14 Feb, 2010 [facility] [place] [facility] [address] [id number] [place] [address]- 1036 13 Feb, 2010 [facility] [place] [facility] [address] [id number] [place] [address]- 2546 11 Dec, 2009 [facility] [place] [facility] [address] [id number] [place] [address]- 9094 Dec, IMMUNIZATIONS No Known Immunizations SOCIAL HISTORY Never Assessed REASON FOR VISIT Rx correction PLAN OF CARE VITAL SIGNS MEDICATIONS Medication Instructions Dosage Frequency Start Date End Date Duration Status NovoLog Flexpen 100 UNIT/ML Subcutaneous 3 times a day. Correct at noon and at supper Base Blood Sugar is 150, increase by 1 unit for every 10 over 150 20 UNITS Active RESULTS No Results PROCEDURES No Known [...]
--- OUTSIDE RECORDS SUMMARY | 2017-12-04 10:00 | XMS REPORT ---
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
--- OUTSIDE RECORDS SUMMARY | 2017-12-04 10:00 | XMS REPORT ---
Author Author JYOTSNA EMERY Organization [facility] Address [address] [place] [address] Care Team Providers Care Certified Veterinary Technician Name Role Phone JYOTSNA EMERY Unavailable PROBLEMS Type Condition ICD9-CM Code KBR09-DN Code Onset Dates Condition Status SNOMED Code Problem Diabetes E11.9 Active 003734518 Problem Type 2 diabetes mellitus with hyperglycemia E11.65 Active 81246102 Problem Essential hypertension I10 Active 60666916 Problem Diabetic polyneuropathy associated with diabetes mellitus due to underlying condition E08.42 Active 48325670 Problem Rotator cuff syndrome of right shoulder M75.101 Active [id number] Problem Slow transit constipation K59.01 Active 37977098 Problem half-way current use of insulin Z79.4 Active 807706274 Problem Constipation, unspecified constipation type K59.00 Active 04509295 Problem Irritable bowel syndrome, unspecified type K58.9 Active 08408186 Problem Barretts esophagus without dysplasia K22.70 Active 710008609 Problem 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 Nov, Active 3610479 Problem Herniation of intervertebral disc at C5-C6 level M50.222 Active 676470363 Problem Gastroparesis K31.84 Active 920312446 Problem Bipolar disorder, current episode depressed, moderate F31.32 Active 038050086 Problem Gastro-esophageal reflux disease without esophagitis K21.9 Active 882820562 Problem Panic disorder with agoraphobia F40.01 Active 71886639 Problem Type 2 diabetes mellitus with diabetic autonomic (poly)neuropathy E11.43 Active 836635089 Problem BRITTANI (generalized anxiety disorder) F41.1 Active 35977717 Problem Obstructive sleep apnea syndrome G47.33 Active 36796025 ALLERGIES No Information ENCOUNTERS Encounter Location Date Diagnosis [facility] [address] [facility] [id number] [address] Jun, Type 2 diabetes mellitus with diabetic autonomic (poly) neuropathy E11.43 and Type 2 diabetes mellitus with hyperglycemia E11.65 [facility] [address] [address] May, [facility] [address] [address] May, Bipolar disorder, current episode depressed, moderate F31.32 [facility] [address] [address] May, [facility] [address] [address] May, Diabetic polyneuropathy associated with diabetes mellitus due to underlying condition E08.42 [place] [address] [address]- [address]70 Apr, [place] [address] [address] 58[address] Feb, Ganglion cyst of dorsum of right wrist M67.431 [place] [address] [address]479- 2416 Jan, Other cyst of bone, right forearm M85.631 [place] [address] [address]- 6877 Jan, [place] [address] [address]86- 7887 Jan, Diabetes E11.9 and Right forearm pain M79.631 [place] [address] [address]78- 5740 Dec, Encounter for immunization Z23 [place] [address] [address]- [address]379 Nov, [place] [address] [address]285- 7993 Nov, Type 2 diabetes mellitus with hyperglycemia E11.65 [place] [address] 17653- 1117 Nov, Severe pain of right shoulder M25.511 [facility] [address] [place] [id number] [place] [address] 94321- 7230 Oct, Diabetes E11.9 [facility] [address] [place] [id number] [place] [address] 23653- 8117 Oct, Diabetes E11.9 [facility] [address] [place] [id number] [place] [address] 18268- 8396 Oct, [facility] [address] [place] [id number] [place] [address] 84833- 2229 Oct, [facility] [address] [place] [id number] [place] [address] 18048- 9452 Oct, Rotator cuff syndrome of right shoulder M75.101 [place] [address] [place] [id number] [place] [address] 06414- 7270 Oct, Diabetes E11.9 [facility] [address] [place] [id number] [place] [address] 07039- 9831 Sep, Type 2 diabetes mellitus with hyperglycemia E11.65 ; Obstructive sleep apnea syndrome G47.33 and Constipation, unspecified constipation type K59.00 [facility] [address] [place] [id number] [place] [address] 32000- 4385 Aug, [facility] [address] [place] [id number] [place] [address] 02327- 9910 Aug, [facility] [address] [place] [id number] [place] [address] 85278- 5401 Aug, Type 2 diabetes mellitus with diabetic autonomic (poly) neuropathy E11.43 [facility] [address] [place] [id number] [place] [address] 91305- 5499 July, Type 2 diabetes mellitus with hyperglycemia E11.65 [facility] [address] [place] [id number] [place] [address] 17388- 3851 Jun, Slow transit constipation K59.01 [facility] [address] [place] [address] 1060 May, [place] [address] [place] [id number] [place] [address] 16657- 8791 May, Diabetes E11.9 [place] [address] 59709- 1511 May, [facility] [place] [address] 65950 [address]5946 Apr, [place] [address] 63674- 0247 Apr, Gastroenteritis K52.9 [facility] [place] [address] 68803 -8029 Apr, Abdominal pain, unspecified location R10.9 ; Gastroenteritis K52.9 ; Type 2 diabetes mellitus with hyperglycemia E11.65 and 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 [place] [address] [place] [id number] [place] [address] 16909- 3347 Apr, [place] [address] 99617- 8446 Apr, [place] [address] [place] [id number] [place] [address] 41150- 1653 Apr, Diabetes E11.9 ; Gastroparesis K31.84 ; Generalized abdominal pain R10.84 ; Essential hypertension I10 ; Bronchitis J40 and Other fatigue R53.83 [facility] [address] [place] [id number] [place] [address] 34435 -2707 Mar, [facility] [place] [address] 71296 -2237 Mar, [facility] [place] [address] 21028 -4617 Mar, Laceration of scalp without foreign body, initial encounter S01.01XA ; Laceration of face, initial encounter S01.81XA and Encounter for immunization Z23 [place] [address] [place] [id number] [place] [address] 66085- 8868 Mar, Type 2 diabetes mellitus with diabetic autonomic (poly) neuropathy E11.43 [place] [address] [place] [id number] [place] [address] 59893- 4227 Feb, [place] [address] [place] [id number] [place] [address] 36428- 5958 Feb, Internal hemorrhoids K64.8 and Obstructive sleep apnea syndrome G47.33 [place] [address] [place] [id number] [place] [address] 38296- 5956 Feb, SI (sacroiliac) joint dysfunction M53.[address] 81672- 3441 Jan, [place] [address] 85889- 3514 Dec, Gastroparesis K31.84 [place] [address] 41187- 2737 Dec, [address] 47396- 3518 Dec, Right hip pain M25.551 ; Nose congested R09.81 and Encounter for immunization Z23 [place] [address] [place] [id number] [place] [address] 16497- 0901 Nov, Diabetes E11.9 ; Gastroparesis K31.84 ; Type 2 diabetes mellitus with diabetic autonomic (poly)neuropathy E11.43 and Obstructive sleep apnea syndrome G47.33 [place] [address] [place] [id number] [place] [address] 08437- 7967 Oct, [place] [address] 43231- 8993 Aug, [place] [address] [place] [id number] [place] [address] 92841- 2953 July, Gastro-esophageal reflux disease without esophagitis K21.9 [facility] [address] [place] [id number] [place] [address] 02231- 9670 July, [facility] [address] [place] [id number] [place] [address] 46058- 7290 July, Diabetes E11.9 [facility] [address] [place] [id number] [place] [address] 57678- 2493 July, Diabetes E11.9 ; Obstructive sleep apnea syndrome G47.33 and Neuropathy G62.9 [facility] [address] [place] [id number] [place] [address] 78936- 5243 July, Bipolar disorder, current episode depressed, moderate F31.32 ; BRITTANI (generalized anxiety disorder) F41.1 and Panic disorder with agoraphobia F40.01 [place] [address] [place] [id number] [place] [address] 47461- 6412 Jun, [facility] [address] [place] [id number] [place] [address] 27993- 2073 Jun, [facility] [address] [place] [id number] [place] [address] 42757- 7680 Jun, [facility] [address] [place] [id number] [place] [address] 00889- 4034 Jun, [facility] [place] [facility] [address] [place] [id number] [place] [address] [id number] May, Encounter for dental examination and cleaning without abnormal findings Z01.20 [facility] [address] [place] [id number] [place] [address] 20693- 5462 Apr, [facility] [address] [place] [id number] [place] [address] 71113- 1857 Apr, [facility] [address] [place] [id number] [place] [address] 04629- 6431 Apr, Bipolar disorder, current episode depressed, moderate F31.32 ; BRITTANI (generalized anxiety disorder) F41.1 and Panic disorder with agoraphobia F40.01 [facility] [address] [place] [id number] [place] [address] 06749- 8197 04 Apr, 2015 Hyperlipidemia, unspecified E78.5 [facility] [address] [place] [id number] [place] [address] [id number] Apr, Dental caries K02.9 [facility] [address] [place] [id number] [place] [address] [id number] Feb, Dental caries K02.9 and Encounter for dental examination Z01.20 [place] [address] [place] [id number] [place] [address] 15918- 9178 Feb, [place] [address] 64118- 5083 15 Feb, 2015 Diabetes E11.9 ; Insulin long-term use Z79.4 ; Diabetic polyneuropathy associated with diabetes mellitus due to underlying condition E08.42 and Barretts esophagus with high grade dysplasia K22.711 [place] [id number] [place] [address] 23957- 9807 Feb, [place] [id number] [place] [address] 96988- 6965 Jan, Pain in right hip M25.551 and Other chronic pain G89.29 [place] [id number] [place] [address] 90936- 3304 Jan, Impingement syndrome, shoulder, left M75.42 [place] [id number] [place] [address] 14724- 1079 Jan, Bipolar disorder, current episode depressed, moderate F31.32 ; Generalized anxiety disorder F41.1 and Agoraphobia with panic disorder F40.[address] 88654- 1012 Jan, [place] [address] [place] [id number] [place] [address] 62263- 4693 Dec, [place] [address] 63712- 0032 Dec, [facility] [address] [address]- 4553 Dec, Right hip pain M25.551 and Left shoulder pain M25.512 [facility] [address] [place] [id number] [address]- 2612 Dec, Bipolar 1 disorder, depressed, moderate F31.32 ; BRITTANI ( generalized anxiety disorder) F41.1 and Panic disorder with agoraphobia F40.01 [facility] [address] [place] [id number] [place] [address] 99192- 9103 Dec, [facility] [address] [place] [id number] [place] [address] 47227- 8182 Dec, [facility] [address] [place] [id number] [place] [address] 44140- 3434 Nov, [facility] [address] [place] [id number] [place] [address] 81991- 6694 18 Nov, 2014 [facility] [address] [place] [id number] [place] [address] 09121- 8511 Nov, [facility] [address] [place] [id number] [place] [address] 60745- 4212 14 Nov, 2014 Diabetes 250.00 [facility] [address] [place] [id number] [place] [address] 38992- 3002 Oct, [facility] [address] [place] [address] 25644- 0287 Oct, [facility] [address] [place] [id number] [place] [address] 26792- 1533 Oct, [facility] [address] [place] [id number] [place] [address] 20458- 0662 Oct, [facility] [address] [address]- 1499 Oct, [facility] [address] [place] [id number] [place] [address] 17573- 6257 Oct, [facility] [address] [address]- 7576 Oct, Diabetes 250.00 ; Insomnia 780.52 and Forgetfulness 780.99 [facility] [address] [address]- 3978 Oct, Depressive disorder, not elsewhere classified 311 [facility] [address] [place] [id number] [place] [address] 24802- 0133 Sep, [facility] [address] [place] [id number] [address]- 9968 Sep, [facility] [address] [place] [id number] [place] [address] 12286- 6645 Sep, [facility] [address] [place] [id number] [address]- 6347 Sep, [facility] [address] [place] [id number] [place] [address] 82755- 4008 Sep, [facility] [address], [place] [address]- 2056 Sep, [facility] [address] [place] [id number] [place] [address] 394217- 6237 Sep, [facility] [address], [place] [address]- 4329 Aug, [facility] [place] [address] [id number] Aug, Dental examination V72.2 [facility] [address], [place] [address]- 6949 Aug, [facility] [address] [place] [id number] [address]- 5796 Aug, [facility] [address], [place] [address]- 8593 July, [facility] [address] [place] [id number] [place] [address] 78245- 7751 July, [facility] [address] [id number] [place] [address]- 5046 July, [facility] [place] [facility] [address] [id number] [place] [address]- 6211 July, [facility] [place] [facility] [address] [facility] [id number] [place] [address]- 7949 Jun, [facility] [place] [facility] [address] [id number] [place] [address]- 2122 Jun, [facility] [place] [facility] [address] [id number] [place] [address]- 8416 May, [facility] [place] [facility] [address] [id number] [place] [address]- 2441 May, [facility] [place] [facility] [address] [facility] [id number] [place] [address]- 9335 May, [facility] [place] [facility] [address] [facility] [id number] [place] [address]- 3016 May, [facility] [place] [facility] [address] [facility] [id number] [place] [address]- 8984 May, [facility] [place] [facility] [address] [facility] [id number] [place] [address]- 0123 May, [facility] [place] [facility] [address] [id number] [place] [address]- 2625 16 May, 2014 [facility] [place] [facility] [address] [facility] [id number] [address]- 2988 May, [facility] [place] [facility] [address] [id number] [place] [address]- 8233 Apr, [facility] [place] [facility] [address] [id number] [place] [address]- 4202 Apr, [facility] [place] [facility] [address] [facility] [id number], [place] [address]- 8347 Apr, [facility] [place] [facility] [address] [id number] [place] [address]- 5493 Apr, [facility] [place] [facility] [address] [id number] [place] [address]- 6206 Apr, [facility] [place] [facility] [address] [id number] [place] [address]- 3954 Apr, [facility] [place] [facility] [address] [id number] [place] [address]- 0428 Mar, [facility] [place] [facility] [address] [id number] [place] [address]- 7192 Mar, [facility] [place] [facility] [address] [id number] [place] [address]- 1167 Mar, [facility] [place] [facility] [address] [id number] [place] [address]- 4841 Mar, [facility] [place] [facility] [address] [id number] [place] [address]- 1848 Mar, [facility] [place] [facility] [address] [id number] [place] [address]- 7688 Mar, [facility] [place] [facility] [address] [id number] [place] [address]- 7350 Mar, [facility] [place] [facility] [address] [id number] [place] [address]- 6091 Mar, [facility] [place] [facility] [address] [id number] [place] [address]- 7937 Mar, [facility] [place] [facility] [address] [id number] [place] [address]- 1515 Mar, [facility] [place] [facility] [address] [id number] [place] [address]- 5470 Mar, [facility] [place] [facility] [address] [id number] [place] [address]- 5211 Mar, [facility] [place] [facility] [address] [id number] [place] [address]- 3738 Mar, [facility] [place] [facility] [address] [id number] [place] [address]- 1689 Mar, [facility] [place] [facility] [address] [id number] [place] 8234 Feb, [facility] [place] [facility] [address] [id number] [place] [address]- 4406 Feb, [facility] [place] [facility] [address] [id number] [place] [address]- 5745 Feb, [facility] [place] [facility] [address] [id number] [place] [address]- 0149 Feb, [facility] [place] [facility] [address] [id number] [place] [address]- 4256 Feb, [facility] [place] [facility] [address] [id number] [place] [address]- 3777 Feb, [facility] [place] [facility] [address] [id number] [place] [address]- 3450 16 Feb, 2014 [facility] [place] [facility] [address] [id number] [place] [address]- 0383 Feb, [facility] [place] [facility] [address] [id number] [place] [address]- 3159 16 Feb, 2014 [facility] [place] [facility] [address] [id number] [place] [address]- 7970 16 Feb, 2014 [facility] [place] [facility] [address] [id number] [place] [address]- 7859 10 Feb, 2014 [facility] [place] [facility] [address] [id number] [place] [address]- 3165 Feb, [facility] [place] [facility] [address] [id number] [place] 4054 Feb, [facility] [place] [facility] [address] [id number] [place] 5649 Feb, [facility] [place] [facility] [address] [id number] [place] [address]- 9499 Jan, [facility] [place] [facility] [address] [id number] [place] [address]- 8342 Jan, [facility] [place] [facility] [address] [id number] [place] [address] 2541 Jan, [facility] [place] [facility] [address] [id number] [place] [address]- 1759 Jan, [facility] [place] [facility] [address] [id number] [place] [address]- 5858 Dec, [facility] [place] [facility] [address] [id number] [place] [address]- 4289 Dec, [facility] [place] [facility] [address] [id number] [place] 4782 Dec, [facility] [place] [facility] [address] [id number] [place] [address]- 0317 Dec, [facility] [place] [facility] [address] [id number] [place] [address]- 5802 Dec, [facility] [place] [facility] [address] [id number] [place] [address]- 2282 Dec, [facility] [place] [facility] [address] [id number] [place] [address]- 2490 Dec, [facility] [place] [facility] [address] [id number] [place] [address]- 7593 Dec, [facility] [place] [facility] [address] [id number] [place] [address]- 5536 30 Nov, 2013 [facility] [place] [facility] [address] [id number] [place] [address]- 5271 17 Nov, 2013 [facility] [place] [facility] [address] [id number] [place] [address] 2542 17 Nov, 2013 [facility] [place] [facility] [address] [id number] [place] [address]- 0905 Nov, [facility] [place] [facility] [address] [id number] [place] [address]- 0468 Nov, [facility] [place] [facility] [address] [id number] [place] [address]- 0710 Oct, [facility] [place] [facility] [address] [id number] [place] [address]- 2928 Oct, [facility] [place] [facility] [address] [id number] [place] [address]- 5160 Sep, [facility] [place] [facility] [address] [id number] [place] [address]- 5598 Sep, [facility] [place] [facility] [address] [id number] [place] [address]- 8002 Sep, [facility] [place] [facility] [address] [id number] [place] [address]- 8256 Sep, [facility] [place] [facility] [address] [id number] [place] [address] Sep, [facility] [place] [facility] [address] [id number] [place] [address] Sep, [facility] [place] [facility] [address] [id number] [place] [address] Sep, [facility] [place] [facility] [address] [id number] [place] [address] Sep, [facility] [place] [facility] [address] [id number] [place] [address] Sep, [facility] [place] [facility] [address] [id number] [place] [address] Sep, [facility] [place] [facility] [address] [id number] [place] [address] Sep, [facility] [place] [facility] [address] [id number] [place] [address] Sep, [facility] [place] [facility] [address] [id number] [place] [address] Sep, [facility] [place] [facility] [address] [id number] [place] [address]- [address] Sep, [facility] [place] [facility] [address] [id number] [place] [address] July, [facility] [place] [facility] [address] [id number] [place] [address] July, [facility] [place] [facility] [address] [id number] [place] [address] July, [facility] [place] [facility] [address] [id number] [place] [address] July, [facility] [place] [facility] [address] [id number] [place] [address] July, [facility] [place] [facility] [address] [id number] [place] [address] July, [facility] [place] [facility] [address] [id number] [place] [address]- [address] July, [facility] [place] [facility] [address] [id number] [place] [address]- [address] July, [facility] [place] [facility] [address] [id number] [place] [address]- [address] Jun, [facility] [place] [facility] [address] [id number] [place] [address]- [address] Jun, [facility] [place] [facility] [address] [id number] [place] [address]- [address] Jun, [facility] [place] [facility] [address] [id number] [place] [address]- [address] Jun, [facility] [place] [facility] [address] [id number] [place] [address]- [address] Jun, [facility] [place] [facility] [address] [id number] [place] [address] Jun, [facility] [place] [facility] [address] [id number] [place] [address] Jun, [facility] [place] [facility] [address] [id number] [place] [address]- [address] Jun, [facility] [place] [facility] [address] [id number] [place] [address] 27 May, 2013 [facility] [place] [facility] [address] [id number] [place] [address] 27 May, 2013 [facility] [place] [facility] [address] [id number] [place] [address] 21 May, 2013 [facility] [place] [facility] [address] [id number] [place] [address] 21 May, 2013 [facility] [place] [facility] [address] [id number] [place] [address] 20 May, 2013 [facility] [place] [facility] [address] [id number] [place] [address] 20 May, 2013 [facility] [place] [facility] [address] [id number] [place] [address] 19 May, 2013 [facility] [place] [facility] [address] [id number] [place] [address] 19 May, 2013 [facility] [place] [facility] [address] [id number] [place] [address] 17 May, 2013 [facility] [place] [facility] [address] [address] [id number] [place] [address] 17 May, 2013 [facility] [place] [facility] [address] [id number] [place] [address] 17 May, 2013 [facility] [place] [facility] [address] [id number] [place] [address] 17 May, 2013 [facility] [place] [facility] [address] [id number] [place] [address] 12 May, 2013 [facility] [place] [facility] [address] [id number] [place] [address] May, [facility] [place] [facility] [address] [id number] [place] [address] May, [facility] [place] [facility] [address] [id number] [place] [address] May, [facility] [place] [facility] [address] [id number] [place] [address] Apr, [facility] [place] [facility] [address] [id number] [place] [address] Apr, [facility] [place] [facility] [address] [id number] [place] [address] Mar, [facility] [place] [facility] [address] [id number] [place] [address] 0438 Mar, [facility] [place] [facility] [address] [id number] [place] [address]- 98[address] Mar, [facility] [place] [facility] [address] [id number] [place] [address] 8463 Mar, [facility] [place] [facility] [address] [id number] [place] [address]- 3[address] Mar, [facility] [place] [facility] [address] [id number] [place] [address]- 9135 Mar, [facility] [place] [facility] [address] [id number], [place] [address] 14[address] Feb, [facility] [place] [facility] [address] [id number] [place] [address]- 7726 Feb, [facility] [place] [facility] [address] [id number] [place] [address] Feb, [facility] [place] [facility] [address] [id number] [place] [address] Feb, [facility] [place] [facility] [address] [id number] [place] [address] Feb, [facility] [place] [facility] [address] [id number] [place] [address] 2545 Feb, [facility] [address] [id number] [place] [address]- 4795 Jan, [facility] [place] [facility] [address] [id number] [place] [address]- 9610 Jan, [facility] [address] [id number] [place] [address]- [address]166 Jan, [facility] [place] [facility] [address] [id number] [place] [address]- 5745 Jan, [facility] [address] [id number] [place] [address]- 1475 Jan, [facility] [place] [facility] [address] [id number] [place] [address]- 9832 Jan, [facility] [place] [facility] [address] [id number] [place] [address]- 7992 Jan, [facility] [address] [id number] [place] [address]227 Dec, [facility] [place] [facility] [address] [id number] [place] [address]- 7819 Dec, [facility] [address] [id number] [place] [address] 5624 Dec, [facility] [place] [facility] [address] [id number] [place] [address]- 3367 Nov, [facility] [place] [facility] [address] [id number] [place] [address]- 7526 Oct, [facility] [place] [facility] [address] [id number] [place] [address] 3564 Sep, [facility] [place] [facility] [address] [id number] [place] [address]- 254 Sep, [facility] [place] [facility] [address] [id number] [place] [address]- 5048 Sep, [facility] [address] [id number] [place] [address]- 6708 Sep, [facility] [place] [facility] [address] [id number] [place] [address]- 3168 Sep, [facility] [place] [facility] [address] [id number] [place] [address]- [address]10 Sep, [facility] [place] [facility] [address] [id number] [place] [address]- 6747 Aug, [facility] [address] [id number] [place] [address]- [address]276 Aug, [facility] [place] [facility] [address] [id number] [place] [address] 4160 July, [facility] [place] [facility] [address] [id number] [place] [address]- 0956 July, [facility] [place] [facility] [address] [id number] [place] [address]- [address]17 July, [facility] [place] [facility] [address] [id number] [place] [address]- [address] July, [facility] [place] [facility] [address] [id number] [place] [address]- 9068 Jun, [facility] [place] [facility] [address] [id number] [place] [address]- 3227 May, [facility] [place] [facility] [address] [id number], [place] [address] May, [facility] [place] [facility] [address] [id number] [place] [address]- 6861 May, [facility] [place] [facility] [address] [id number] [place] [address]- 0516 Mar, [facility] [place] [facility] [address] [id number], [place] [address]- 0[address] Mar, [facility] [place] [facility] [address] [id number], [place] [address]13 Mar, [facility] [place] [facility] [address] [id number] [place] [address]- 0032 Feb, [facility] [place] [facility] [address] [id number] [place] [address]- 8166 Feb, [facility] [place] [facility] [address] [id number] [place] [address]- 0976 Feb, [facility] [place] [facility] [address] [id number] [place] [address]- 0998 Feb, [facility] [place] [facility] [address] [id number] [place] [address]- 3675 Feb, [facility] [place] [facility] [address] [id number] [place] [address]- 3994 Feb, [facility] [id number] [place] [address] Feb, [facility] [place] [facility] [address] [id number] [place] [address]- 6682 Feb, [facility] [place] [facility] [address] [id number] [place] [address]- 4988 Feb, [facility] [place] [facility] [address] [facility] [id number] [place] [address]- 1153 Feb, [facility] [place] [facility] [address] [id number] [place] [address]- 4115 Jan, [facility] [place] [facility] [address] [id number] [place] [address]- 2811 Jan, [facility] [place] [facility] [address] [id number] [place] [address]- 7089 Jan, [facility] [place] [facility] [address] [id number] [place] [address]- 9011 Jan, [facility] [place] [facility] [address] [id number] [place] [address]- 9465 Jan, [facility] [place] [facility] [address] [id number] [place] [address]- 3663 Jan, [facility] [place] [facility] [address] [id number] [place] [address]- 0814 Jan, [facility] [place] [facility] [address] [id number] [place] [address]- 6976 Jan, [facility] [place] [facility] [address] [id number] [place] [address]- 5018 Jan, [facility] [place] [facility] [address] [id number] [place] [address]- 8632 Jan, [facility] [place] [facility] [address] [id number] [place] [address]- 7677 Dec, [facility] [place] [facility] [address] [id number] [place] [address]- 4710 Dec, [facility] [place] [facility] [address] [id number] [place] [address]- 6686 Nov, [facility] [place] [facility] [address] [id number] [place] [address]- 9460 24 Nov, 2011 [facility] [place] [facility] [address] [id number] [place] [address]- 5307 05 Nov, 2011 [facility] [place] [facility] [address] [id number] [place] [address]- 0445 Oct, [facility] [place] [facility] [address] [id number] [place] [address]- 1714 Oct, [facility] [place] [facility] [address] [id number] [place] [address]- 0675 Oct, [facility] [place] [facility] [address] [id number] [place] [address] Oct, [facility] [place] [facility] [address] [id number] [place] [address]- 5866 Aug, [facility] [place] [facility] [address] [id number] [place] [address]- 7848 15 Aug, 2011 [facility] [place] [facility] [address] [id number] [place] [address]- 2477 14 Aug, 2011 [facility] [place] [facility] [address] [id number] [place] [address]- 1957 07 Aug, 2011 [facility] [place] [facility] [address] [id number] [place] [address]- 2550 08 Jun, 2011 [facility] [place] [facility] [address] [id number] [place] [address]- 4554 May, [facility] [place] [facility] [address] [id number] [place] [address]- 4956 May, [facility] [place] [facility] [address] [id number] [place] [address]- 6044 20 Apr, 2011 [facility] [place] [facility] [address] [id number] [place] [address]- 4246 20 Apr, 2011 [facility] [place] [facility] [address] [id number] [place] [address]- 4406 15 Apr, 2011 [facility] [place] [facility] [address] [id number] [place] [address]- 9382 14 Apr, 2011 [facility] [place] [facility] [address] [id number] [place] [address]- 9585 24 Mar, 2011 [facility] [place] [facility] [address] [id number] [place] [address]- 7799 Mar, [facility] [place] [facility] [address] [id number] [place] [address]- 8780 19 Mar, 2011 [facility] [place] [facility] [address] [id number] [place] [address]- 9589 18 Mar, 2011 [facility] [place] [facility] [address] [id number] [place] [address]- 0677 13 Mar, 2011 [facility] [place] [facility] [address] [id number] [place] [address]- 1441 13 Mar, 2011 [facility] [place] [facility] [address] [id number] [place] [address]- 9121 Feb, [facility] [address] [id number] [place] [address]- 5309 Jan, [facility] [place] [facility] [address] [id number] [place] [address]- 0226 Jan, [facility] [address] [id number] [place] [address]- 8126 Jan, [facility] [place] [facility] [address] [id number] [place] [address]- 6257 Jan, [facility] [address] [id number] [place] [address]- 7445 Jan, [facility] [place] [facility] [address] [id number] [place] [address]- 3364 Dec, [facility] [address] [id number] [place] [address]- 4286 May, [facility] [address] [id number] [place] [address]- 9279 14 Apr, 2010 [facility] [place] [facility] [address] [id number] [place] [address]- 9375 Mar, [facility] [address] [id number] [place] [address]- 8720 Feb, [facility] [place] [facility] [address] [id number] [place] [address]- 2542 Feb, [facility] [place] [facility] [address] [id number] [place] [address]- 2546 14 Feb, 2010 [facility] [place] [facility] [address] [id number] [place] [address]- 5236 13 Feb, 2010 [facility] [place] [facility] [address] [id number] [place] [address]- 2546 11 Dec, 2009 [facility] [place] [facility] [address] [id number] [place] [address]- 1872 11 Dec, 2009 IMMUNIZATIONS No Known Immunizations SOCIAL HISTORY Never Assessed REASON FOR VISIT Refill request PLAN OF CARE VITAL SIGNS MEDICATIONS Medication Instructions Dosage Frequency Start Date End Date Duration Status Effexor XR 150 MG Orally Once a day 1 capsule with food 24h Oct, 90 days Active RESULTS No Results PROCEDURES [...]
--- OUTSIDE RECORDS SUMMARY | 2017-12-04 10:00 | XMS REPORT ---
Author Author JYOTSNA EMERY [facility] eClinical[employer] Address Unknown Phone Unavailable Care Team Providers Care Mid Level Developer Name Role Phone YJOTSNA EMERY CP Unavailable Allergies No Known Allergies [...] Coronary atherosclerosis of unspecified type of vessel, blackfeet or graft 414.00 Active Problem Unspecified backache 724.5 Active Medications No Known Medications Results No Known Results Summary Purpose eClinicalWorks Submission
--- OUTSIDE RECORDS SUMMARY | 2017-12-04 10:01 | XMS REPORT ---
Author Author SHASHA HAN Organization [facility] Address [address] [place] [address] Care Team Providers Care Technical Agronomist Name Role Phone SHASHA HAN Unavailable PROBLEMS Type Condition ICD9-CM Code [id number] Code Onset Dates Condition Status SNOMED Code Problem Diabetes E11.9 Active 075313268 Problem Type 2 diabetes mellitus with hyperglycemia E11.65 Active 97941043 Problem Essential hypertension I10 Active 19644161 Problem Diabetic polyneuropathy associated with diabetes mellitus due to underlying condition E08.42 Active 25146570 Problem Rotator cuff syndrome of right shoulder M75.101 Active 292259844310956 Problem Slow transit constipation K59.01 Active 03776553 Problem 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 Active 141453611 Problem Constipation, unspecified constipation type K59.00 Active 36251919 Problem Irritable bowel syndrome, unspecified type K58.9 Active 26844215 Problem Barretts esophagus without dysplasia K22.70 Active 157835838 Problem 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 01 Nov, 2014 Active 8929375 Problem Herniation of intervertebral disc at C5-C6 level M50.222 Active 560862278 Problem Gastroparesis K31.84 Active 153742885 Problem Bipolar disorder, current episode depressed, moderate F31.32 Active 648716146 Problem Gastro-esophageal reflux disease without esophagitis K21.9 Active 404063847 Problem Panic disorder with agoraphobia F40.01 Active 90295615 Problem Type 2 diabetes mellitus with diabetic autonomic (poly)neuropathy E11.43 Active 304449805 Problem BRITTANI (generalized anxiety disorder) F41.1 Active 50593769 Problem Obstructive sleep apnea syndrome G47.33 Active 03922797 ALLERGIES Substance Reaction Event Type Date Status Codeine Sulfate hives Drug Allergy Feb, Active Advil rash Drug Allergy Feb, Active All nsaids Unknown Non Drug Allergy Feb, Active ENCOUNTERS Encounter Location Date Diagnosis [facility] [id number] [place] [address] 00258- 4168 July, [place] [address] 36763- 0108 Jun, Type 2 diabetes mellitus with diabetic autonomic (poly) neuropathy E11.43 and Type 2 diabetes mellitus with hyperglycemia E11.65 [facility] [address] 79100- 4226 May, [place] [address] 88290- 8164 May, Bipolar disorder, current episode depressed, moderate F31.32 [facility] [address] 0[address] -56[address] May, [place] [address] 88173- 6418 May, Diabetic polyneuropathy associated with diabetes mellitus due to underlying condition E08.42 [place] [address] 05176- 5886 Apr, [place] [address] 52347- 4316 Feb, Ganglion cyst of dorsum of right wrist M67.431 [place] [address] 90114- 7286 Jan, Other cyst of bone, right forearm M85.631 [place] [address] 33970- 6399 Jan, [place] [address] 20575- 8263 Jan, Diabetes E11.9 and Right forearm pain M79.631 [place] [address] 05497- 7742 Dec, Encounter for immunization Z23 [place] [address] 31843- 2317 Nov, [facility] [id number] [place] [address] 54770- 1195 Nov, Type 2 diabetes mellitus with hyperglycemia E11.65 [facility] [id number] [place] [address] 04724- 9138 Nov, Severe pain of right shoulder M25.511 [facility] [id number] [place] [address] 39890- 4186 Oct, Diabetes E11.9 [facility] [id number] [place] [address] 58771- 3091 Oct, Diabetes E11.9 [facility] [id number] [place] [address] 06312- 8105 Oct, [facility] [id number] [place] [address] 89230- 2486 Oct, [facility] [id number] [place] [address] 14661- 3495 Oct, Rotator cuff syndrome of right shoulder M75.101 [facility] [id number] [place] [address] 99384- 4414 Oct, Diabetes E11.9 [facility] [id number] [place] [address] 39107- 4313 Sep, Type 2 diabetes mellitus with hyperglycemia E11.65 ; Obstructive sleep apnea syndrome G47.33 and Constipation, unspecified constipation type K59.00 [facility] [address] [address] 1341 Aug, [facility] [id number] [place] [address] 04647- 5655 Aug, [facility] [id number] [place] [address] 80034- 2344 Aug, Type 2 diabetes mellitus with diabetic autonomic (poly) neuropathy E11.43 [facility] [id number] [place] [address] 80694- 0668 July, Type 2 diabetes mellitus with hyperglycemia E11.65 [place] [id number] [place] [address] 34418- 4384 Jun, Slow transit constipation K59.01 [place] [id number] [place] [address] 72032- 3805 May, [place] [id number] [place] [address] 97824- 7011 May, Diabetes E11.9 [place] [id number] [place] [address] 80619- 4190 May, [facility] [place] [address] 16291 -5978 Apr, [place] [id number] [place] [address] 94248- 2499 Apr, Gastroenteritis K52.9 [facility] [place] [id number] [place] [address] 98618 -9923 Apr, Abdominal pain, unspecified location R10.9 ; Gastroenteritis K52.9 ; Type 2 diabetes mellitus with hyperglycemia E11.65 and 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 [place] [id number] [place] [address] 85091 -3972 Mar, [facility] [id number] [place] [address] 69925 -3149 11 Mar, 2016 Laceration of scalp without foreign body, initial encounter S01.01XA ; Laceration of face, initial encounter S01.81XA and Encounter for immunization Z23 [facility] [id number] [place] [address] 77478- 6571 09 Mar, 2016 Type 2 diabetes mellitus with diabetic autonomic (poly) neuropathy E11.43 [place] [address] 18369- 6248 Feb, [place] [address] 77295- 4006 Feb, Internal hemorrhoids K64.8 and Obstructive sleep apnea syndrome G47.33 [place] [id number] [place] [address] 63762- 1542 Feb, SI (sacroiliac) joint dysfunction M53.3 [place] [address] 55124- 2694 Jan, [place] [address] 13692- 2691 Dec, Gastroparesis K31.84 [place] [id number] [place] [address] 76397- 2495 Dec, [place] [id number] [place] [address] 60809- 9493 Dec, Right hip pain M25.551 ; Nose congested R09.81 and Encounter for immunization Z23 [facility] [id number] [place] [address] 12165- 4407 Nov, Diabetes E11.9 ; Gastroparesis K31.84 ; Type 2 diabetes mellitus with diabetic autonomic (poly)neuropathy E11.43 and Obstructive sleep apnea syndrome G47.33 [facility] [id number] [place] [address] 87056- 5097 Oct, [place] [address] [place] [address]- 4927 Aug, [facility] [address] 53339- 2634 July, Gastro-esophageal reflux disease without esophagitis K21.9 [facility] [address] 80778- 2423 July, [facility] [address] 80107- 0127 July, Diabetes E11.9 [facility] [address] 10727- 6520 July, Diabetes E11.9 ; Obstructive sleep apnea syndrome G47.33 and Neuropathy G62.9 [facility] [address] 57885- 7244 July, Bipolar disorder, current episode depressed, moderate F31.32 ; BRITTANI (generalized anxiety disorder) F41.1 and Panic disorder with agoraphobia F40.01 [facility] [id number] [place] [address] 45690- 1536 Jun, [facility] [address] 02869- 4538 Jun, [facility] [address] 65110- 7064 Jun, [facility] [address] 01583- 3881 Jun, [facility] [id number] [place] [address] [id number] May, Encounter for dental examination and cleaning without abnormal findings Z01.20 [facility] [address] 93925- 0638 Apr, [facility] [address] 39951- 8197 Apr, [facility] [address] [place] [address]- 7807 04 Apr, 2015 Bipolar disorder, current episode depressed, moderate F31.32 ; BRITTANI (generalized anxiety disorder) F41.1 and Panic disorder with agoraphobia F40.01 [place] [id number] [place] [address] 12640- 1811 04 Apr, 2015 Hyperlipidemia, unspecified E78.5 [facility] [address] [id number] Apr, Dental caries K02.9 [facility] [address] [id number] Feb, Dental caries K02.9 and Encounter for dental examination Z01.[address] 15576- 6928 Feb, [address] 70110- 1242 Feb, Diabetes E11.9 ; Insulin long-term use Z79.4 ; Diabetic polyneuropathy associated with diabetes mellitus due to underlying condition E08.42 and Barretts esophagus with high grade dysplasia K22.[address] 67200- 9863 14 Feb, [address] 61376- 1328 Jan, Pain in right hip M25.551 and Other chronic pain G89.29 [place] [id number] [place] [address] 03693- 2586 05 Jan, 2015 Impingement syndrome, shoulder, left M75.[address] 86299- 8758 05 Jan, 2015 Bipolar disorder, current episode depressed, moderate F31.32 ; Generalized anxiety disorder F41.1 and Agoraphobia with panic disorder F40.[address] 44308- 1980 Jan, [facility] [address] [address]- 8299 Dec, [facility] [id number] [place] [address] 78910- 6226 Dec, [facility] [id number] [place] [address] 32386- 4827 Dec, Right hip pain M25.551 and Left shoulder pain M25.512 [facility] [id number] [place] [address] 73081- 6856 Dec, Bipolar 1 disorder, depressed, moderate F31.32 ; BRITTANI ( generalized anxiety disorder) F41.1 and Panic disorder with agoraphobia F40.01 [facility] [id number] [place] [address] 34464- 7596 Dec, [facility] [id number] [place] [address] 12425- 7646 Dec, [facility] [id number] [place] [address] 01766- 8191 Nov, [facility] [id number] [place] [address] 582187- 5405 18 Nov, 2014 [facility] [address] 3758 14 Nov, 2014 [facility] [id number] [place] [address] 15659- 0745 14 Nov, 2014 Diabetes 250.00 [facility] [address] [address]- 5480 Oct, [facility] [id number] [place] [address] 58517- 8576 Oct, [facility] [address] [address]- 6566 Oct, [facility] [id number] [place] [address] 98821- 0361 Oct, [facility] [address] [address]- 2914 Oct, [facility] [id number] [place] [address] 40773- 6907 Oct, [facility] [id number] [place] [address] 04559- 5388 Oct, Diabetes 250.00 ; Insomnia 780.52 and Forgetfulness 780.99 [facility] [address] [address]- 5868 Oct, Depressive disorder, not elsewhere classified 311 [facility] [id number] [place] [address] 32384- 2516 Sep, [facility] [id number] [place] [address] 29862- 9565 Sep, [facility] [id number] [place] [address] 13079- 1654 Sep, [facility] [address] [place] [address] 09330- 7250 Sep, [facility] [id number] [place] [address] 66984- 3743 Sep, [facility] [address] [address]- 9543 Sep, [facility] [address] [place] [address] 61452- 1429 Sep, [facility] [address] [address]- 6328 Aug, [facility] [address] [place] [address] [id number] Aug, Dental examination V72.2 [facility] [address] 3661 Aug, [facility] [id number] [place] [address] 59774- 0149 Aug, [facility] [place] [facility] [address] [id number] [place] [address]- 4085 July, [facility] [place] [facility] [address] [id number] [place] [address]- 4361 July, [facility] [place] [facility] [address] [id number] [place] [address]- 2011 July, [facility] [place] [facility] [address] [id number] [place] [address]- 7496 July, [facility] [place] [facility] [address] [id number] [place] [address]- 4585 Jun, [facility] [place] [facility] [address] [id number] [place] [address]- 5018 Jun, [facility] [place] [facility] [address] [id number] [place] [address]- 8488 May, [facility] [place] [facility] [address] [id number] [place] [address]- 4264 May, [facility] [place] [facility] [address] [id number] [place] [address]- 1314 May, [facility] [place] [facility] [address] [id number] [place] [address]- 3120 May, [facility] [place] [facility] [address] [id number] [place] [address]- 9555 May, [facility] [place] [facility] [address] [id number] [place] [address]- 8997 17 May, 2014 [facility] [place] [facility] [address] [id number] [place] [address]- 5396 16 May, 2014 [facility] [place] [facility] [address] [id number] [place] [address]- 6934 May, [facility] [place] [facility] [address] [id number] [place] [address]- 8972 Apr, [facility] [place] [facility] [address] [id number] [place] [address]- 2187 Apr, [facility] [place] [facility] [address] [id number] [place] [address]- 3325 Apr, [facility] [place] [facility] [address] [id number] [place] [address]- 9416 Apr, 2014 [facility] [place] [facility] [address] [id number] [place] [address]- 5978 Apr, [facility] [place] [facility] [address] [id number] [place] [address]- 8896 Apr, [facility] [place] [facility] [address] [id number] [place] [address]- 3613 Mar, [facility] [place] [facility] [address] [id number] [place] [address]- 1892 Mar, [facility] [place] [facility] [address] [id number] [place] [address]- 8732 Mar, [facility] [place] [facility] [address] [id number] [place] [address]- 0299 Mar, [facility] [place] [facility] [address] [id number] [place] [address]- 8336 Mar, [facility] [place] [facility] [address] [id number] [place] [address]- 7320 Mar, [facility] [place] [facility] [address] [id number] [place] [address]- 6039 Mar, [facility] [place] [facility] [address] [id number] [place] [address]- 5850 Mar, [facility] [place] [facility] [address] [id number] [place] [address]- 3556 Mar, [facility] [place] [facility] [address] [id number] [place] [address]- 3850 Mar, [facility] [place] [facility] [address] [id number] [place] [address]- 2646 Mar, [facility] [place] [facility] [address] [id number] [place] [address]- 5878 Mar, [facility] [place] [facility] [address] [id number] [place] [address]- 5240 Mar, [facility] [place] [facility] [address] [id number] [place] [address]- 9974 Mar, [facility] [place] [facility] [address] [id number] [place] [address]- 5833 Feb, [facility] [place] [facility] [address] [id number] [place] [address]- 1256 30 Feb, 2014 [facility] [place] [facility] [address] [id number] [place] [address]- 2839 Feb, [facility] [place] [facility] [address] [id number] [place] [address]- 9080 Feb, [facility] [place] [facility] [address] [id number] [place] [address]- 4137 Feb, [facility] [place] [facility] [address] [id number] [place] [address]- 2384 Feb, [facility] [place] [facility] [address] [id number] [place] [address]- 3944 16 Feb, 2014 [facility] [place] [facility] [address] [id number] [place] [address]- 1976 16 Feb, 2014 [facility] [place] [facility] [address] [id number] [place] [address]- 4642 16 Feb, 2014 [facility] [place] [facility] [address] [id number] [place] [address]- 4846 16 Feb, 2014 [facility] [place] [facility] [address] [id number] [place] [address]- 6959 10 Feb, 2014 [facility] [place] [facility] [address] [id number] [place] [address]- 8540 10 Feb, 2014 [facility] [place] [facility] [address] [id number] [place] [address]- 3997 Feb, [facility] [place] [facility] [address] [id number] [place] [address]- 2429 Feb, [facility] [place] [facility] [address] [id number] [place] [address]- 8064 Jan, [facility] [place] [facility] [address] [id number] [place] [address]- 0952 Jan, [facility] [place] [facility] [address] [id number] [place] [address]- 9455 Jan, [facility] [place] [facility] [address] [id number] [place] [address]- 3702 Jan, [facility] [place] [facility] [address] [id number] [place] [address]- 1844 Dec, [facility] [place] [facility] [address] [id number] [place] [address]- 2386 Dec, [facility] [place] [facility] [address] [id number] [place]604 Dec, [facility] [place] [facility] [address] [id number] [place] [address]- 3827 Dec, [facility] [place] [facility] [address] [facility] [id number] [place] [address]- 8939 Dec, [facility] [place] [facility] [address] [id number] [place] [address]- 0136 Dec, [facility] [place] [facility] [address] [id number] [place] [address]- 2770 Dec, [facility] [place] [facility] [address] [id number] [place] [address]- 4623 Dec, [facility] [place] [facility] [address] [id number] [place] [address]- 8068 30 Nov, 2013 [facility] [place] [facility] [address] [id number] [place] [address]- 0186 Nov, [facility] [place] [facility] [address] [id number] [place] [address]- 8484 Nov, [facility] [place] [facility] [address] [id number] [place] [address]- 2969 Nov, [facility] [place] [facility] [address] [id number] [place] [address]- 3900 Nov, [facility] [place] [facility] [address] [id number] [place] [address]- 2094 Oct, [facility] [place] [facility] [address] [id number] [place] [address] Oct, [facility] [place] [facility] [address] [id number] [place] [address] Sep, [facility] [place] [facility] [address] [id number] [place] [address] Sep, [facility] [place] [facility] [address] [id number] [place] [address] Sep, [facility] [place] [facility] [address] [id number] [place] [address] Sep, [facility] [place] [facility] [address] [id number] [place] [address] Sep, [facility] [place] [facility] [address] [id number] [place] [address] Sep, [facility] [place] [facility] [address] [id number] [place] [address] Sep, [facility] [place] [facility] [address] [id number] [place] [address] Sep, [facility] [place] [facility] [address] [id number] [place] [address] Sep, [facility] [place] [facility] [address] [id number] [place] [address] Sep, [facility] [place] [facility] [address] [id number] [place] [address] Sep, [facility] [address] [id number] [place] [address] Sep, [facility] [place] [facility] [address] [id number] [place] [address] Sep, [facility] [place] [facility] [address] [id number] [place] [address] Sep, [facility] [place] [facility] [address] [id number] [place] [address] July, [facility] [place] [facility] [address] [id number] [place] [address] July, [facility] [place] [facility] [address] [id number] [place] [address] July, [facility] [place] [facility] [address] [id number] [place] [address] July, [facility] [place] [facility] [address] [id number] [place] [address] July, [facility] [place] [facility] [address] [id number] [place] [address] July, [facility] [place] [facility] [address] [id number] [place] [address] July, [facility] [place] [facility] [address] [id number] [place] [address] July, [facility] [place] [facility] [address] [id number] [place] [address] Jun, [facility] [place] [facility] [address] [id number] [place] [address] Jun, [facility] [place] [facility] [address] [id number] [place] [address] Jun, [facility] [place] [facility] [address] [id number] [place] [address]- [address] Jun, [facility] [place] [facility] [address] [id number] [place] [address]- [address] 07 Jun, 2013 [facility] [place] [facility] [address] [id number] [place] [address] 07 Jun, 2013 [facility] [place] [facility] [address] [id number] [place] [address] Jun, [facility] [place] [facility] [address] [id number] [place] [address] Jun, [facility] [place] [facility] [address] [id number] [place] [address] 27 May, 2013 [facility] [place] [facility] [address] [id number] [place] [address] 27 May, 2013 [facility] [place] [facility] [address] [id number] [place] [address] May, [facility] [place] [facility] [address] [id number] [place] [address] 21 May, 2013 [facility] [place] [facility] [address] [id number] [place] [address] 20 May, 2013 [facility] [place] [facility] [address] [id number] [place] [address] 20 May, 2013 [facility] [place] [facility] [address] [id number] [place] [address] 19 May, 2013 [facility] [place] [facility] [address] [id number] [place] [address] 19 May, 2013 [facility] [place] [facility] [address] [id number] [place] [address] 17 May, 2013 [facility] [place] [facility] [address] [id number] [place] [address]- [address] 17 May, 2013 [facility] [place] [facility] [address] [id number] [place] [address] 17 May, 2013 [facility] [place] [facility] [address] [id number] [place] [address] May, [facility] [place] [facility] [address] [id number] [place] [address] 1473 May, [facility] [place] [facility] [address] [id number] [place] [address] May, [facility] [place] [facility] [address] [id number] [place] [address] May, [facility] [place] [facility] [address] [id number] [place] [address] May, [facility] [place] [facility] [address] [id number] [place] [address] Apr, [facility] [place] [facility] [address] [id number] [place] [address] 4[address] Apr, [facility] [place] [facility] [address] [id number] [place] [address] Mar, [facility] [place] [facility] [address] [id number] [place] [address] 90[address] Mar, [facility] [place] [facility] [address] [id number] [place] [address] 224[address] Mar, [facility] [place] [facility] [address] [id number] [place] [address] Mar, [facility] [place] [facility] [address] [id number] [place] [address] Mar, [facility] [place] [facility] [address] [id number] [place] [address] 4470 Mar, [facility] [place] [facility] [address] [id number] [place] [address] Feb, [facility] [place] [facility] [address] [id number] [place] [address] 5[address] Feb, [facility] [place] [facility] [address] [id number] [place] [address] 47[address] Feb, [facility] [place] [facility] [address] [id number] [place] [address] 0[address] Feb, [facility] [place] [facility] [address] [id number] [place] [address] 8470 Feb, [facility] [place] [facility] [address] [id number] [place] [address] 30[address] Feb, [facility] [place] [facility] [address] [id number] [place] [address] 4[address] Jan, [facility] [place] [facility] [address] [id number] [place] [address] 57[address] Jan, [facility] [place] [facility] [address] [id number] [place] [address] Jan, [facility] [place] [facility] [address] [id number] [place] [address]255 Jan, [facility] [place] [facility] [address] [id number] [place] [address] 1252 Jan, [facility] [place] [facility] [address] [id number] [place] [address] 7073 Jan, [facility] [place] [facility] [address] [id number] [place] [address] 4332 Jan, [facility] [place] [facility] [address] [facility] [id number] [place] [address] 5[address] Dec, [facility] [place] [facility] [address] [id number] [place] [address] Dec, [facility] [place] [facility] [address] [id number] [place] [address] 9[address] Dec, [facility] [place] [facility] [address] [id number] [place] [address] Nov, [facility] [place] [facility] [address] [id number] [place] [address] 9[address] Oct, [facility] [place] [facility] [address] [id number] [place] [address] 7[address] Sep, [facility] [place] [facility] [address] [id number] [place] [address] Sep, [facility] [address] [id number] [place] [address] Sep, [facility] [address] [id number] [place] [address] 5[address] Sep, [facility] [address] [id number] [place] [address] 4[address] Sep, [facility] [address] [id number] [place] [address] 90[address] Sep, [facility] [address] [id number] [place] [address] 09[address] Aug, [facility] [address] [id number] [place] [address] 30[address] Aug, [facility] [address] [id number] [place] [address] July, [facility] [address] [id number] [place] [address] 6[address] July, [facility] [address] [id number] [place] [address] 8979 July, [facility] [address] [id number] [place] [address] 5[address] July, [facility] [address] [id number] [place] [address] 0164 Jun, [facility] [place] [facility] [address] [id number] [place] [address] 3070 May, [facility] [place] [facility] [address] [id number] [place] [address] 5226 May, [facility] [address] [id number] [place] [address] 2542 May, [facility] [place] [facility] [address] [id number] [place] [address] 9[address] Mar, [facility] [place] [facility] [address] [id number] [place] [address] 7417 Mar, [facility] [place] [facility] [address] [id number] [place] [address] 2790 Mar, [facility] [place] [facility] [address] [id number] [place] [address] 0787 Feb, [facility] [place] [facility] [address] [id number] [place] [address] 7236 Feb, [facility] [place] [facility] [address] [id number] [place] [address] 0624 Feb, [facility] [place] [facility] [address] [id number] [place] [address] 0264 Feb, [facility] [place] [facility] [address] [id number] [place] [address] 8079 Feb, [facility] [place] [facility] [address] [id number] [place] [address]- 9626 Feb, [facility] [place] [facility] [address] [id number] [place] [address]- 7564 Feb, [facility] [place] [facility] [address] [id number] [place] [address]- 0528 Feb, [facility] [place] [facility] [address] [id number] [place] [address] 7645 Feb, [facility] [place] [facility] [address] [id number] [place] [address] 3309 Feb, [facility] [place] [facility] [address] [id number] [place] [address] 0180 Jan, [facility] [place] [facility] [address] [id number] [place] [address] 3294 Jan, [facility] [place] [facility] [address] [id number] [place] [address] 3971 Jan, [facility] [place] [facility] [address] [id number] [place] [address]- 5976 Jan, [facility] [place] [facility] [address] [id number] [place] [address]- 8363 Jan, [facility] [place] [facility] [address] [id number] [place] [address]- 0632 Jan, [facility] [place] [facility] [address] [id number] [place] [address] 1892 Jan, [facility] [place] [facility] [address] [id number] [place] [address]- 4238 Jan, [facility] [place] [facility] [address] [id number] [place] [address]- 9868 Jan, [facility] [place] [facility] [address] [id number] [place] [address]- 6673 Jan, [facility] [place] [facility] [address] [id number] [place] [address]- 8549 Dec, [facility] [place] [facility] [address] [id number] [place] [address]- 4383 Dec, [facility] [place] [facility] [address] [id number] [place] [address]- 1326 Nov, [facility] [place] [facility] [address] [id number] [place] [address]- 9608 24 Nov, 2011 [facility] [place] [facility] [address] [id number] [place] [address]- 2156 05 Nov, 2011 [facility] [place] [facility] [address] [id number] [place] [address]- 7372 Oct, [facility] [place] [facility] [address] [id number] [place] [address]- 5530 Oct, [facility] [place] [facility] [address] [id number] [place] [address]- 2305 Oct, [facility] [place] [facility] [address] [id number] [place] [address]- 9643 Oct, [facility] [address] [id number] [place] [address]- 5696 18 Aug, 2011 [facility] [place] [facility] [address] [id number] [place] [address]- 8422 15 Aug, 2011 [facility] [place] [facility] [address] [id number] [place] [address]- 8586 14 Aug, 2011 [facility] [place] [facility] [address] [id number] [place] [address]- 4617 07 Aug, 2011 [facility] [place] [facility] [address] [id number] [place] [address]- 6451 08 Jun, 2011 [facility] [place] [facility] [address] [id number] [place] [address]- 1186 May, [facility] [place] [facility] [address] [id number] [place] [address]- 6856 May, [facility] [place] [facility] [address] [id number] [place] [address]- 5373 20 Apr, 2011 [facility] [place] [facility] [address] [id number] [place] [address]- 2146 Apr, [facility] [place] [facility] [address] [id number] [place] [address]- 2833 15 Apr, 2011 [facility] [place] [facility] [address] [id number] [place] [address]- 5641 14 Apr, 2011 [facility] [place] [facility] [address] [id number] [address] 98[address] Mar, [facility] [place] [facility] [address] [id number] [place] [address]- 2457 Mar, [facility] [place] [facility] [address] [id number] [place] [address]- 3126 Mar, [facility] [place] [facility] [address] [id number] [place] [address]- 5826 Mar, [facility] [place] [facility] [address] [id number] [place] [address]- 8989 13 Mar, 2011 [facility] [address] [id number] [place] [address]- 9548 13 Mar, 2011 [facility] [address] [id number] [place] [address]- 4275 27 Feb, 2011 [facility] [address] [id number] [place] [address]- 4290 Jan, [facility] [place] [facility] [address] [id number] [place] [address]- 5585 15 Jan, 2011 [facility] [address] [id number] [place] [address]- 0902 Jan, [facility] [address] [id number] [place] [address]- 9114 Jan, [facility] [address] [id number] [place] [address]- 8126 Jan, [facility] [address] [id number] [place] [address]- 0336 Dec, [facility] [address] [id number] [place] [address]- 5762 May, [facility] [address] [id number] [place] [address]- 9207 14 Apr, 2010 [facility] [address] [id number] [place] [address]- 5982 Mar, [facility] [address] [id number] [place] [address]- 3781 Feb, [facility] [place] [facility] [address] [id number] [place] [address]- 8208 Feb, [facility] [place] [facility] [address] [id number] [place] [address]- 8478 14 Feb, 2010 [facility] [place] [facility] [address] [id number] [place] [address]- 0910 Feb, [facility] [address] [facility] [id number] [place] [address]- 2756 Dec, [facility] [address] [facility] [id number] [address] [address] Dec, IMMUNIZATIONS No Known Immunizations SOCIAL HISTORY Never Assessed REASON FOR VISIT Cyst removal from the right wristTasneem BUSTOS PLAN OF CARE VITAL SIGNS Height 67 in 2017-03-08 Weight 204.4 lbs 2017-03-08 Temperature 98.7 degrees Fahrenheit 2017-03-08 Heart Rate 80 bpm 2017-03-08 Respiratory Rate 18 2017-03-08 BMI 32.01 kg/m2 2017-03-08 Blood pressure systolic 128 mmHg 2017-03-08 Blood pressure diastolic 78 mmHg 2017-03-08 MEDICATIONS Medication Instructions Dosage Frequency Start Date End Date Duration Status Pen [place] 31G X 6 MM Inject July, 30 days Active Aspirin Adult Low Dose 81 MG Orally Once a day 1 tablet 24h Active Zenpep 66078 UNIT Orally before meals and snacks 1 tablet 30 Active Metformin HCl 500 mg Orally Twice a day 2 tablet 12h 90 Active C-PAP Machine N/A as directed Oct, Not-Taking MiraLax - Orally at bedtime 17 grams mixed with 8 ounces of water or juice as needed May, Active Gabapentin 300 MG TAKE THREE CAPSULES BY MOUTH THREE TIMES DAILY 30 Active Nitrostat 0.4 MG Not-Taking Adult Mask N/A as directed July, Not-Taking Metoprolol Tartrate 50 MG TAKE 1 TABLET TWICE DAILY 30 Active Vitamin E 100 UNIT Orally Once a day 1 capsule 24h Not-Taking Effexor XR 150 MG Orally Once a day 1 capsule with food 24h 30 Active Victoza 18 MG/3ML Subcutaneous Once a day Inject 1.8mg 24h 90 Active NovoLog Flexpen 100 UNIT/ML Subcutaneous 3 times a day. Correct at noon and at supper Base Blood Sugar is 150, increase by 1 unit for every 10 over 150 20 UNITS Active OneTouch Ultra Test - test blood sugar 12h Nov, Active RectiCare 5 % Externally Four times a day 1 application to anus as needed for pain 6h May, Not-Taking Levemir FlexTouch 100 units/ml Subcutaneous 2 times a day Inject 50 units 12h 90 days Active BusPIRone HCl 10 MG TAKE ONE TABLET BY MOUTH IN THE MORNING, ONE TABLET AT NOON AND TWO TABLETS AT BEDTIME 67 Active Quinapril HCl 20 MG TAKE 1 TABLET EVERY DAY 24h 90 Active Pantoprazole Sodium 40 MG TAKE ONE TABLET BY MOUTH ONCE DAILY 30 Active Atorvastatin Calcium 40 MG Orally Once a day 1 tablet 24h 90 Active Ondansetron 8 MG Orally every 6 hrs 1 tablet on the tongue and allow to dissolve 6h May, Not-Taking Fish Oil 1000 MG Orally Three times a day 1 capsule 8h Active Oxybutynin Chloride 5 MG Orally Twice a day 1 tablet 12h 30 Active RESULTS No Results PROCEDURES Procedure Date Ordered Result Body Site ASPIRATE/INJ GANGLION CYST 2017-03-08 N/A ASPIRATE/INJ GANGLION CYST Mar 08, 2017 INSTRUCTIONS MEDICATIONS ADMINISTERED No Known Medications [...]
--- OUTSIDE RECORDS SUMMARY | 2017-12-04 10:01 | XMS REPORT ---
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
--- OUTSIDE RECORDS SUMMARY | 2017-12-04 10:02 | XMS REPORT ---
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 Active Problem Coronary atherosclerosis of unspecified type of vessel, [place] or graft 414.00 Active Problem Family history [...] Other and unspecified hyperlipidemia 272.4 Active Assessment Panic disorder with agoraphobia F40.01 Active Assessment BRITTANI (generalized anxiety disorder) F41.1 Active Assessment Bipolar 1 disorder, depressed, moderate F31.32 Active Medications Medication Code System Code Instructions Start Date End Date Status Dosage Gabapentin [facility] [address]-96 300 MG Orally Three times a day August 14, 2014 3 capsule Bydureon [facility] [address]-23 2 MG Subcutaneous once weekly August 06, 2014 2mg Quinapril HCl [facility] [address]-90 20 MG Once a day TAKE 1 TABLET EVERY DAY Effexor XR [facility] [address]-99 150 MG Orally Once a day Oct 21, 2014 1 capsule with food C-PAP Machine [facility] 0 N/A Once a day at night Nov 06, 2014 as directed Bentyl [facility] [address]-57 20 mg Dec 14, 2013 1 tablet by Oral route 4 times per day PRN 90 day supply Atorvastatin Calcium [facility] [address]-93 40 MG Orally Once a day 1 tablet Pantoprazole Sodium [facility] [address]-06 40 MG Orally August 14, 2014 1 tablet in the AM 2 tabs in PM NovoLog Flexpen [facility] [address]-56 100 UNIT/ML Subcutaneous 3 times a day 20 unit with meals Metformin HCl [facility] [address]-99 500 MG Orally Twice a day July 16, 2014 1 tablet with meals Nitrostat [facility] [address]-80 0.4 MG Sublingual not defined Vitamin E [facility] [address]-15 100 UNIT Orally Once a day 1 capsule tramadol NDC 0 50 mg May 30, 2014 take 1 tablet to 2 tabs by Oral route every 8 hours as needed PRN pain Latuda [facility] [address]-15 40 MG Orally Once with evening meal Dec 19, 2014 1 tablet with food Levemir FlexTouch [facility] 57125733859 100 UNIT/ML INJECT 42 UNITS SUBCUTANEOUSLY TWICE DAILY buspirone NDC 0 10 mg Mar 04, 2014 take 1-2 tablet by Oral route 3 times per day (1 in am, 1 at noon, 2 at hs) Metoprolol Tartrate [facility] [address]-07 50 MG TAKE 1 TABLET TWICE DAILY Oxybutynin Chloride [facility] [address]-30 5 MG Orally Twice a day May 28, 2014 1 tablet Procedures Procedure Coding System Code Date Office Visit, Cecille Pt., Level 5 CPT-4 43724 Dec 19, 2014 Vital Signs Date/Time: Dec 19, 2014 Cardiac Monitoring Heart Rate 88 bpm Weight 209.0 lbs Height 67 in BMI 32.73 Index Blood Pressure Diastolic 70 mmHg Blood Pressure Systolic 130 mmHg Results No Known Results Summary Purpose eClinicalWorks Submission
--- OUTSIDE RECORDS SUMMARY | 2017-12-04 10:02 | XMS REPORT ---
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 Active Assessment Encounter for immunization Z23 Active Assessment Nose congested R09.81 Active Problem Unspecified backache 724.5 Active Problem Esophageal reflux 530.81 Active Problem Family history of malignant neoplasm of gastrointestinal tract V16.0 Active Problem Other and unspecified hyperlipidemia 272.4 Active Problem Coronary atherosclerosis of unspecified type of vessel, [place] or graft 414.00 Active Problem Unspecified essential hypertension 401.9 Active Medications Medication Code System Code Instructions Start Date End Date Status Dosage Nitrostat [facility] [address]-73 0.4 MG Sublingual not defined Effexor XR [facility] [address]-95 150 MG Orally Once a day Oct 21, 2014 1 capsule with food Fish Oil [facility] [address]-90 1000 MG Orally Three times a day 1 capsule Atorvastatin Calcium [facility] 17871705504 40 MG Orally Once a day 1 tablet Metoprolol Tartrate [facility] 92034483717 50 MG TAKE 1 TABLET TWICE DAILY Quinapril HCl [facility] 02955323803 20 MG Once a day TAKE 1 TABLET EVERY DAY Victoza [facility] [address]-57 18 MG/3ML Subcutaneous Once a day July 29, 2015 Inject 1.8mg Test strips [facility] 0 one touch ultra 2 times a day DX code: E11.329 Jan 03, 2015 test blood sugar Oxybutynin Chloride [facility] 14367244011 5 MG Orally Twice a day 1 tablet Adult Mask [facility] 0 N/A July 21, 2015 as directed Gabapentin [facility] 10837762942 300 MG Orally Three times a day 3 capsule Aspirin Adult Low Dose [facility] [address]-59 81 MG Orally Once a day 1 tablet Levemir FlexTouch [facility] [address]-81 100 UNIT/ML INJECT 42 UNITS SUBCUTANEOUSLY TWICE DAILY. Vitamin E [facility] [address]-56 100 UNIT Orally Once a day 1 capsule C-PAP Machine [facility] 0 N/A Once a day at night Nov 06, 2014 as directed NovoLog Flexpen [facility] 52718893350 100 UNIT/ML INJECT 20 UNITS SUBCUTANEOUSLY THREE TIMES DAILY BEFORE MEALS Metformin HCl [facility] 69099502696 500 MG Orally Twice a day 1 tablet with meals BusPIRone HCl [facility] [address]-93 10 MG TAKE ONE TABLET BY MOUTH IN THE MORNING, ONE TABLET AT NOON AND TWO TABLETS AT BEDTIME Pantoprazole Sodium [facility] [address]-99 40 mg Orally Once a day 1 tablet Zenpep [facility] [address]-98 33839 UNIT Orally before meals and snacks Nov 1 tablet Procedures Procedure Coding System Code Date Office Visit, Est Pt., Level 3 CPT-4 66147 Dec 30, 2015 FLUARIX QUAD P-FREE 3 AND UP .50 2015 CPT-4 46990 Dec 30, 2015 X-RAY EXAM HIP UNI 2-3 VIEWS CPT-4 12178 Dec 30, 2015 SINGLE IMMUNIZATION ADMIN CPT-4 96572 Dec 30, 2015 PCV 13 CPT-4 67202 Dec 30, 2015 IMMUNIZATION ADMIN, EACH ADD (please include units) CPT-4 45529 Dec 30, 2015 Vital Signs Date/Time: Dec 30, 2015 Cardiac Monitoring Heart Rate 96 bpm Weight 202.4 lbs Height 67 in BMI 31.70 Index Blood Pressure Diastolic 70 mmHg Blood Pressure Systolic 119 mmHg Results Name Result Date Reference Range Unit Abnormality Flag Xray : Hip, Right 2 views (IN HOUSE) Immunizations Vaccine Administration Date FLUARIX QUAD P-FREE 3 AND UP .50 2015Dec 30, 2015 PCV 13 Dec 30, 2015 Summary Purpose eClinicalWorks Submission
--- OUTSIDE RECORDS SUMMARY | 2017-12-04 10:02 | XMS REPORT ---
Author Author JYOTSNA EMERY [facility] eClinicalWorks Address Unknown Phone Unavailable Care Team Providers Care Lab Scientist Name Role Phone JYOTSNA EMERY CP Unavailable [...] Coronary atherosclerosis of unspecified type of vessel, [place] or graft 414.00 Active Problem Dermatophytosis of nail 110.1 Active Medications No Known Medications Results No Known Results Summary Purpose eClinicalWorks Submission
--- OUTSIDE RECORDS SUMMARY | 2017-12-04 10:02 | XMS REPORT ---
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 Nov, Active 2108172 Problem Obstructive sleep apnea syndrome G47.33 Active 33268053 Problem Type 2 diabetes mellitus with diabetic autonomic (poly)neuropathy E11.43 Active 817066368 Problem BRITTANI (generalized anxiety disorder) F41.1 Active 27815148 Problem Panic disorder with agoraphobia F40.01 Active 53453426 Problem Gastro-esophageal reflux disease without esophagitis K21.9 Active 524788823 Problem Bipolar disorder, current episode depressed, moderate F31.32 Active 945153580 Problem Family history of malignant neoplasm of gastrointestinal tract V16.0 Active 782759735 Problem Coronary atherosclerosis of unspecified type of vessel, [place] or graft 414.00 Active 86728829 Assessment Internal hemorrhoids K64.8 Feb, Active 63783682 Problem 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 Active 832851611 Problem Other and unspecified hyperlipidemia 272.4 Active 85034261 Problem Unspecified essential hypertension 401.9 Active 21165525 Problem Unspecified backache 724.5 Active 640864567 Problem Irritable bowel syndrome 564.1 Active 70471986 Problem Esophageal reflux 530.81 Active 817266961 Problem Gastroparesis K31.84 Active 921148746 ALLERGIES Substance Reaction Event Type Date Status Codeine Sulfate hives Drug Allergy Feb, Active Advil rash Drug Allergy Feb, Active All nsaids Unknown Non Drug Allergy Feb, Active SOCIAL HISTORY No smoking Hx information available PLAN OF CARE VITAL SIGNS Height 67 in 2016-02-19 Weight 207.8 lbs 2016-02-19 Heart Rate 84 bpm 2016-02-19 Respiratory Rate 20 2016-02-19 BMI 32.54 kg/m2 2016-02-19 Blood pressure systolic 132 mmHg 2016-02-19 Blood pressure diastolic 80 mmHg 2016-02-19 MEDICATIONS Medication Instructions Dosage Frequency Start Date End Date Duration Status Test strips one touch ultra test blood sugar Dec, Active Gabapentin 300 MG Orally Three times a day 3 capsule 8h 30 Active Metoprolol Tartrate 50 MG TAKE 1 TABLET TWICE DAILY 90 Active Atorvastatin Calcium 40 MG Orally Once a day 1 tablet 24h 90 Active NovoLog Flexpen 100 UNIT/ML INJECT 20 UNITS SUBCUTANEOUSLY THREE TIMES DAILY BEFORE MEALS 50 Active Nitrostat 0.4 MG Active Quinapril HCl 20 MG TAKE 1 TABLET EVERY DAY 24h 30 Active Zenpep 86227 UNIT Orally 6 times per day 1 Capsule before meals and snacks Nov, 120 days Active Pantoprazole Sodium 40 mg Orally Once a day 1 tablet 24h 90 days Active Levemir FlexTouch 100 UNIT/ML INJECT 42 UNITS SUBCUTANEOUSLY TWICE DAILY. 90 Active Aspirin Adult Low Dose 81 MG Orally Once a day 1 tablet 24h Active Effexor XR 150 MG Orally Once a day 1 capsule with food 24h Oct, Active Victoza 18 MG/3ML Subcutaneous Once a day Inject 1.8mg 24h July, 30 day(s) Active BusPIRone HCl 10 MG TAKE ONE TABLET BY MOUTH IN THE MORNING, ONE TABLET AT NOON AND TWO TABLETS AT BEDTIME 67 Active Vitamin E 100 UNIT Orally Once a day 1 capsule 24h Active Metformin HCl 500 MG Orally Twice a day 1 tablet with meals 12h 30 Active Fish Oil 1000 MG Orally Three times a day 1 capsule 8h Active Oxybutynin Chloride 5 MG Orally Twice a day 1 tablet 12h 30 Active RESULTS No Results PROCEDURES Procedure Date Ordered Related Diagnosis Body Site Office Visit, Est Pt., Level 3 Feb 19, 2016 IMMUNIZATIONS No Known Immunizations
--- OUTSIDE RECORDS SUMMARY | 2017-12-04 10:02 | XMS REPORT ---
Author Author JYOTSNA EMERY [facility] e[employer] Address Unknown Phone Unavailable Care Team Providers Care Food Service Attendant Name Role Phone JYOTSNA EMERY CP Unavailable Allergies No Known Allergies Problems Problem Type Condition Code Onset Dates Condition Status Problem Other and unspecified hyperlipidemia 272.4 Active Problem Irritable bowel syndrome 564.1 Active Problem Unspecified essential hypertension 401.9 Active Problem Bipolar disorder, current episode depressed, moderate F31.32 Active Problem BRITTANI (generalized anxiety disorder) F41.1 Active Problem Gastro-esophageal reflux disease without esophagitis K21.9 Active Problem 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 Nov 12, 2014 Active Problem Barretts esophagus without dysplasia K22.70 Active Problem Panic disorder with agoraphobia F40.01 Active Problem Depressive disorder, not elsewhere classified 311 Active Problem Family history of malignant neoplasm of gastrointestinal tract V16.0 Active Problem Coronary atherosclerosis of unspecified type of vessel, [place] or graft 414.00 Active Problem Unspecified backache 724.5 Active Problem 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
--- OUTSIDE RECORDS SUMMARY | 2017-12-04 10:02 | XMS REPORT ---
Author Author JYOTSNA EMERY Organization [facility] [place] Address [address] [place] [address] Care Team Providers Care Biomedical Engineering Technician Name Role Phone JYOTSNA EMERY Unavailable PROBLEMS Type Condition ICD9-CM Code [id number] Code Onset Dates Condition Status SNOMED Code Problem Obstructive sleep apnea syndrome G47.33 Active 17720035 Problem Essential hypertension I10 Active 09578409 Problem Diabetes E11.9 Active 627504935 Problem Rotator cuff syndrome of right shoulder M75.101 Active 032565472183299 Problem Constipation, unspecified constipation type K59.00 Active 23998442 Problem penitentiary current use of insulin Z79.4 Active 508388876 Problem Type 2 diabetes mellitus with hyperglycemia E11.65 Active 47257422 Problem Irritable bowel syndrome, unspecified type K58.9 Active 95223314 Problem Slow transit constipation K59.01 Active 18000745 Problem Gastroparesis K31.84 Active 358372295 Problem Barretts esophagus without dysplasia K22.70 Active 550272048 Problem BRITTANI (generalized anxiety disorder) F41.1 Active 51711087 Problem Bipolar disorder, current episode depressed, moderate F31.32 Active 877437096 Problem 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 Nov, Active 8145963 Problem Gastro-esophageal reflux disease without esophagitis K21.9 Active 361666595 Problem Panic disorder with agoraphobia F40.01 Active 78637934 Problem Type 2 diabetes mellitus with diabetic autonomic (poly)neuropathy E11.43 Active 109736704 ALLERGIES No Information SOCIAL HISTORY Never Assessed PLAN OF CARE VITAL SIGNS MEDICATIONS Medication Instructions Dosage Frequency Start Date End Date Duration Status RectiCare 5 % Externally Four times a day 1 application to anus as needed for pain 6h May, Active MiraLax - Orally at bedtime 17 grams mixed with 8 ounces of water or juice as needed May, Active Ondansetron 8 MG Orally every 6 hrs 1 tablet on the tongue and allow to dissolve 6h May, Active RESULTS No Results PROCEDURES No Known [...]
--- OUTSIDE RECORDS SUMMARY | 2017-12-04 10:02 | XMS REPORT ---
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 [address]-58 500 MG Orally Twice a day July 16, 2014 1 tablet with meals Results No Known Results Summary Purpose eClinicalWorks Submission
--- OUTSIDE RECORDS SUMMARY | 2017-12-04 10:03 | XMS REPORT ---
Author Author JUSTINO YOO [facility] Address [address] [place] [address] Care Team Providers Care Powder Compounder Name Role Phone JUSTINO YOO Unavailable PROBLEMS Type Condition ICD9-CM Code [id number] Code Onset Dates Condition Status SNOMED Code Problem Obstructive sleep apnea syndrome G47.33 Active 31131912 Problem Essential hypertension I10 Active 10233383 Problem Diabetes E11.9 Active 182095661 Problem Rotator cuff syndrome of right shoulder M75.101 Active 858378245575427 Problem Constipation, unspecified constipation type K59.00 Active 88989391 Problem 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 Active 605299458 Problem Type 2 diabetes mellitus with hyperglycemia E11.65 Active 18207149 Problem Irritable bowel syndrome, unspecified type K58.9 Active 97869575 Problem Slow transit constipation K59.01 Active 68245186 Problem Gastroparesis K31.84 Active 703619104 Problem Barretts esophagus without dysplasia K22.70 Active 859714106 Problem BRITTANI (generalized anxiety disorder) F41.1 Active 45820694 Problem Bipolar disorder, current episode depressed, moderate F31.32 Active 395471755 Problem 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 01 Nov, 2014 Active 3663100 Problem Gastro-esophageal reflux disease without esophagitis K21.9 Active 762457686 Problem Panic disorder with agoraphobia F40.01 Active 24955666 Problem Type 2 diabetes mellitus with diabetic autonomic (poly)neuropathy E11.43 Active 855953403 ALLERGIES No Information SOCIAL HISTORY Never Assessed PLAN OF CARE VITAL SIGNS MEDICATIONS Unknown Medications RESULTS Name Result Date Reference Range CULTURE, STOOL 2016-04-26 Salmonella/Shigella Screen Campylobacter Culture E coli Shiga Toxin EIA STOOL (C-DIFF) 2016-04-26 C difficile Toxin Gene BUDDY Negative Negative CULTURE, STOOL 2016-04-26 Salmonella/Shigella Screen Final report Campylobacter Culture Final report E coli Shiga Toxin EIA Negative Negative Result 1 Result 1 STOOL (O & P) 2016-04-26 Ova + Parasite Exam Final report Result 1 STOOL (WBC) 2016-04-26 White Blood Cells (WBC), Stool Final report None Seen Result 1 STOOL (C-DIFF) 2016-04-26 C difficile Toxin Gene BUDDY Negative Negative PROCEDURES Procedure Date Ordered Result Body Site FECES CULTURE, BACTERIA Apr 26, 2016 OVA AND PARASITES SMEARS Apr 26, 2016 LEUKOCYTE COUNT, FECAL Apr 26, 2016 SMEAR, COMPLEX STAIN Apr 26, 2016 C DIFF AMPLIFIED PROBE Apr 26, 2016 IMMUNIZATIONS No Known Immunizations MEDICAL (GENERAL) HISTORY [...]
--- OUTSIDE RECORDS SUMMARY | 2017-12-04 10:03 | XMS REPORT ---
Author Author JYOTSNA EMERY Organization [facility] [place] Address [address] [place] [address] Care Team Providers Care Heeler Machine Name Role Phone JYOTSNA EMERY Unavailable PROBLEMS Type Condition ICD9-CM Code JNP60-AE Code Onset Dates Condition Status SNOMED Code Problem Diabetes E11.9 Active 407724462 Problem Type 2 diabetes mellitus with hyperglycemia E11.65 Active 46476260 Problem Essential hypertension I10 Active 11077145 Problem Diabetic polyneuropathy associated with diabetes mellitus due to underlying condition E08.42 Active 87961116 Problem Rotator cuff syndrome of right shoulder M75.101 Active 062202531782296 Problem Slow transit constipation K59.01 Active 56623945 Problem correction current use of insulin Z79.4 Active 939507774 Problem Constipation, unspecified constipation type K59.00 Active 54261880 Problem Irritable bowel syndrome, unspecified type K58.9 Active 25140419 Problem Barretts esophagus without dysplasia K22.70 Active 495165731 Problem 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 Nov, Active 9978557 Problem Herniation of intervertebral disc at C5-C6 level M50.222 Active 120581049 Problem Gastroparesis K31.84 Active 495506580 Problem Bipolar disorder, current episode depressed, moderate F31.32 Active 519197731 Problem Gastro-esophageal reflux disease without esophagitis K21.9 Active 033661348 Problem Panic disorder with agoraphobia F40.01 Active 14093090 Problem Type 2 diabetes mellitus with diabetic autonomic (poly)neuropathy E11.43 Active 473109747 Problem BRITTANI (generalized anxiety disorder) F41.1 Active 53014640 Problem Obstructive sleep apnea syndrome G47.33 Active 76238303 ALLERGIES No Information ENCOUNTERS Encounter Location Date Diagnosis [facility] [place] [address] [facility] [id number] [address] Jun, Type 2 diabetes mellitus with diabetic autonomic (poly) neuropathy E11.43 and Type 2 diabetes mellitus with hyperglycemia E11.65 [facility] [place] [address] [address] May, [facility] [place] [address] [address]- [address] May, Bipolar disorder, current episode depressed, moderate F31.32 [facility] [address] [address] May, [facility] [place] [address] [address]- [address]17 May, Diabetic polyneuropathy associated with diabetes mellitus due to underlying condition E08.42 [place] [address] [address]245- [address]957 Apr, [place] [address] 75684- 9633 Feb, Ganglion cyst of dorsum of right wrist M67.431 [place] [address] 6[address]31- 3194 Jan, Other cyst of bone, right forearm M85.631 [place] [address] 260[address]- 2400 Jan, [place] [address] [address]- 5803 Jan, Diabetes E11.9 and Right forearm pain M79.631 [place] [address] 04908- 1322 Dec, Encounter for immunization Z23 [place] [address] 52705- 2332 Nov, [place] [address] 88186- 3597 Nov, Type 2 diabetes mellitus with hyperglycemia E11.65 [place] [address] 07421- 7535 Nov, Severe pain of right shoulder M25.511 [facility] [place] [address] [place] [id number] [place] [address] 19644- 6503 Oct, Diabetes E11.9 [facility] [place] [address] [place] [id number] [place] [address] 39819- 2373 Oct, Diabetes E11.9 [facility] [place] [address] [place] [id number] [place] [address] 06413- 2661 Oct, [facility] [place] [address] [place] [id number] [place] [address] 10745- 3235 Oct, [facility] [place] [address] [place] [id number] [place] [address] 90439- 0948 Oct, Rotator cuff syndrome of right shoulder M75.101 [place] [address] [place] [id number] [place] [address] 32505- 8904 Oct, Diabetes E11.9 [facility] [place] [address] [place] [id number] [place] [address] 89862- 4682 Sep, Type 2 diabetes mellitus with hyperglycemia E11.65 ; Obstructive sleep apnea syndrome G47.33 and Constipation, unspecified constipation type K59.00 [facility] [place] [address] [place] [id number] [place] [address] 40188- 8082 Aug, [facility] [place] [address] [place] [id number] [place] [address] 53115- 4167 Aug, [facility] [place] [address] [place] [id number] [place] [address] 45069- 8244 Aug, Type 2 diabetes mellitus with diabetic autonomic (poly) neuropathy E11.43 [facility] [place] [address] [place] [id number] [place] [address] 21729- 6871 July, Type 2 diabetes mellitus with hyperglycemia E11.65 [facility] [place] [address] [place] [id number] [place] [address] 51277- 1455 Jun, Slow transit constipation K59.01 [facility] [place] [address] [place] [address]- 7514 May, [place] [address] [place] [id number] [place] [address] 69567- 6380 May, Diabetes E11.9 [place] [address] 10982- 0186 May, [facility] [place] [address] 29130 -5482 Apr, [place] [address] 94221- 7803 Apr, Gastroenteritis K52.9 [facility] [place] [address] 12930 -4091 Apr, Abdominal pain, unspecified location R10.9 ; Gastroenteritis K52.9 ; Type 2 diabetes mellitus with hyperglycemia E11.65 and 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 [place] [address] [place] [id number] [place] [address] 29282- 9090 Apr, [place] [address] 23846- 1591 Apr, [place] [address] [place] [id number] [place] [address] 73225- 2796 Apr, Diabetes E11.9 ; Gastroparesis K31.84 ; Generalized abdominal pain R10.84 ; Essential hypertension I10 ; Bronchitis J40 and Other fatigue R53.83 [facility] [address] [place] [id number] [place] [address] 74756 -8292 Mar, [facility] [place] [address] 27245 -7207 Mar, [facility] [place] [address] 22539 -4484 Mar, Laceration of scalp without foreign body, initial encounter S01.01XA ; Laceration of face, initial encounter S01.81XA and Encounter for immunization Z23 [place] [address] [place] [id number] [place] [address] 22090- 0004 Mar, Type 2 diabetes mellitus with diabetic autonomic (poly) neuropathy E11.43 [place] [address] [place] [id number] [place] [address] 01694- 5823 Feb, [place] [address] [place] [id number] [place] [address] 28497- 5703 Feb, Internal hemorrhoids K64.8 and Obstructive sleep apnea syndrome G47.33 [place] [address] [place] [id number] [place] [address] 20952- 9508 Feb, SI (sacroiliac) joint dysfunction M53.[address] 49123- 5885 Jan, [place] [address] 20963- 0732 Dec, Gastroparesis K31.84 [place] [address] 03511- 5565 Dec, [address] 20819- 1703 Dec, Right hip pain M25.551 ; Nose congested R09.81 and Encounter for immunization Z23 [place] [address] [place] [id number] [place] [address] 48651- 9596 Nov, Diabetes E11.9 ; Gastroparesis K31.84 ; Type 2 diabetes mellitus with diabetic autonomic (poly)neuropathy E11.43 and Obstructive sleep apnea syndrome G47.33 [place] [address] [place] [id number] [place] [address] 84186- 5658 Oct, [place] [address] 78710- 0670 Aug, [place] [address] [place] [id number] [place] [address] 41037- 6048 July, Gastro-esophageal reflux disease without esophagitis K21.9 [facility] [place] [address] [place] [id number] [place] [address] 06187- 2313 July, [facility] [place] [address] [place] [id number] [place] [address] 40167- 9268 July, Diabetes E11.9 [facility] [place] [address] [place] [id number] [place] [address] 89233- 4848 July, Diabetes E11.9 ; Obstructive sleep apnea syndrome G47.33 and Neuropathy G62.9 [facility] [place] [address] [place] [id number] [place] [address] 60306- 5459 July, Bipolar disorder, current episode depressed, moderate F31.32 ; BRITTANI (generalized anxiety disorder) F41.1 and Panic disorder with agoraphobia F40.01 [place] [address] [place] [id number] [place] [address] 11945- 4405 Jun, [facility] [place] [address] [place] [id number] [place] [address] 16266- 0907 Jun, [facility] [place] [address] [place] [id number] [place] [address] 06178- 2362 Jun, [facility] [place] [address] [place] [id number] [place] [address] 87771- 8523 Jun, [facility] [address] [place] [id number] [place] [address] [id number] May, Encounter for dental examination and cleaning without abnormal findings Z01.20 [facility] [place] [address] [place] [id number] [place] [address] 16750- 8004 Apr, [facility] [place] [address] [place] [id number] [place] [address] 74586- 1207 Apr, [facility] [place] [address] [place] [id number] [place] [address] 28965- 2671 Apr, Bipolar disorder, current episode depressed, moderate F31.32 ; BRITTANI (generalized anxiety disorder) F41.1 and Panic disorder with agoraphobia F40.01 [facility] [place] [address] [place] [id number] [place] [address] 04371- 2957 04 Apr, 2015 Hyperlipidemia, unspecified E78.5 [facility] [address] [place] [id number] [place] [address] [id number] Apr, Dental caries K02.9 [facility] [address] [place] [id number] [place] [address] [id number] Feb, Dental caries K02.9 and Encounter for dental examination Z01.20 [place] [address] [place] [id number] [place] [address] 88383- 4157 Feb, [place] [address] 50490- 3845 15 Feb, 2015 Diabetes E11.9 ; Insulin long-term use Z79.4 ; Diabetic polyneuropathy associated with diabetes mellitus due to underlying condition E08.42 and Barretts esophagus with high grade dysplasia K22.711 [place] [id number] [place] [address] 02717- 5231 Feb, [place] [id number] [place] [address] 06578- 9406 Jan, Pain in right hip M25.551 and Other chronic pain G89.29 [place] [id number] [place] [address] 21647- 6465 Jan, Impingement syndrome, shoulder, left M75.42 [place] [id number] [place] [address] 04439- 3570 Jan, Bipolar disorder, current episode depressed, moderate F31.32 ; Generalized anxiety disorder F41.1 and Agoraphobia with panic disorder F40.[address] 89271- 0814 Jan, [place] [address] [place] [id number] [place] [address] 85171- 4364 Dec, [place] [address] 20626- 8741 Dec, [facility] [address] [address]- 5476 Dec, Right hip pain M25.551 and Left shoulder pain M25.512 [facility] [place] [address] [place] [address]- 2164 Dec, Bipolar 1 disorder, depressed, moderate F31.32 ; BRITTANI ( generalized anxiety disorder) F41.1 and Panic disorder with agoraphobia F40.01 [facility] [place] [address] [place] [id number] [place] [address] 57472- 8220 Dec, [facility] [place] [address] [place] [id number] [place] [address] 53570- 7947 Dec, [facility] [place] [address] [place] [id number] [place] [address] 08007- 0964 Nov, [facility] [place] [address] [place] [id number] [place] [address] 33982- 5702 18 Nov, 2014 [facility] [place] [address] [place] [id number] [place] [address] 97631- 8190 Nov, [facility] [place] [address] [place] [id number] [place] [address] 56134- 5940 14 Nov, 2014 Diabetes 250.00 [facility] [place] [address] [place] [id number] [place] [address] 63051- 2857 Oct, [facility] [place] [id number] [place] [address] 13464- 5287 Oct, [facility] [place] [address] [place] [id number] [place] [address] 04531- 5961 Oct, [facility] [place] [address] [place] [id number] [place] [address] 96934- 8002 Oct, [facility] [address] [address]- 1164 Oct, [facility] [address] [place] [id number] [place] [address] 83024- 0238 Oct, [facility] [address] [address]- 8735 Oct, Diabetes 250.00 ; Insomnia 780.52 and Forgetfulness 780.99 [facility] [address] [address]- 0999 Oct, Depressive disorder, not elsewhere classified 311 [facility] [place] [address] [place] [id number] [place] [address] 45169- 9365 Sep, [facility] [place] [address] [address]- 7760 Sep, [facility] [place] [address] [place] [id number] [place] [address] 84915- 6134 Sep, [facility] [place] [address] [address]- 3509 Sep, [facility] [place] [address] [place] [id number] [place] [address] 99685- 8455 Sep, [facility] [address] [address]- 0624 Sep, [facility] [address] [place] [id number] [place] [address] 171164- 7294 Sep, [facility] [address] [address]- 9972 Aug, [facility] [address] [id number] Aug, Dental examination V72.2 [facility] [address] [address]- 7839 Aug, [facility] [address] [address] [address]- 3876 Aug, [facility] [address] [address]- 0776 July, [facility] [place] [address] [place] [id number] [place] [address] 97443- 3842 July, [facility] [address] [id number] [place] [address]- 6836 July, [facility] [place] [facility] [address] [id number] [place] [address]- 9154 July, [facility] [place] [facility] [address] [facility] [id number] [place] [address]- 9755 Jun, [facility] [place] [facility] [address] [id number] [place] [address]- 4155 Jun, [facility] [place] [facility] [address] [id number] [place] [address]- 4385 May, [facility] [place] [facility] [address] [id number] [place] [address]- 0372 May, [facility] [place] [facility] [address] [facility] [id number] [place] [address]- 4467 May, [facility] [place] [facility] [address] [facility] [id number] [place] [address]- 6409 May, [facility] [place] [facility] [address] [facility] [id number] [place] [address]- 9989 May, [facility] [place] [facility] [address] [facility] [id number] [place] [address]- 3919 May, [facility] [place] [facility] [address] [id number] [place] [address]- 7766 16 May, 2014 [facility] [place] [facility] [address] [facility] [id number] [address]- 2814 May, [facility] [place] [facility] [address] [id number] [place] [address]- 5696 Apr, [facility] [place] [facility] [address] [id number] [place] [address]- 7694 Apr, [facility] [place] [facility] [address] [facility] [id number] [address]- 4262 Apr, [facility] [place] [facility] [address] [id number] [place] [address]- 3131 Apr, [facility] [place] [facility] [address] [id number] [place] [address]- 5706 Apr, [facility] [place] [facility] [address] [id number] [place] [address]- 8163 Apr, [facility] [place] [facility] [address] [id number] [place] [address]- 4212 Mar, [facility] [place] [facility] [address] [id number] [place] [address]- 1222 Mar, [facility] [place] [facility] [address] [id number] [place] [address]- 3949 Mar, [facility] [place] [facility] [address] [id number] [place] [address]- 8665 Mar, [facility] [place] [facility] [address] [id number] [place] [address]- 4063 Mar, [facility] [place] [facility] [address] [id number] [place] [address]- 5678 Mar, [facility] [place] [facility] [address] [id number] [place] [address]- 7603 Mar, [facility] [place] [facility] [address] [id number] [place] [address]- 1255 Mar, [facility] [place] [facility] [address] [id number] [place] [address]- 7048 Mar, [facility] [place] [facility] [address] [id number] [place] [address]- 0784 Mar, [facility] [place] [facility] [address] [id number] [place] [address]- 9682 Mar, [facility] [place] [facility] [address] [id number] [place] [address]- 9638 Mar, [facility] [place] [facility] [address] [id number] [place] [address]- 5872 Mar, [facility] [place] [facility] [address] [id number] [place] [address]- 9567 Mar, [facility] [place] [facility] [address] [id number] [place] 6631 Feb, [facility] [place] [facility] [address] [id number] [place] [address]- 1516 Feb, [facility] [place] [facility] [address] [id number] [place] [address]- 9408 Feb, [facility] [place] [facility] [address] [id number] [place] [address]- 0423 Feb, [facility] [place] [facility] [address] [id number] [place] [address]- 5625 Feb, [facility] [place] [facility] [address] [id number] [place] [address]- 6013 Feb, [facility] [place] [facility] [address] [id number] [place] [address]- 6424 16 Feb, 2014 [facility] [place] [facility] [address] [id number] [place] [address]- 9039 Feb, [facility] [place] [facility] [address] [id number] [place] [address]- 8484 16 Feb, 2014 [facility] [place] [facility] [address] [id number] [place] [address]- 6932 16 Feb, 2014 [facility] [place] [facility] [address] [id number] [place] [address]- 7585 10 Feb, 2014 [facility] [place] [facility] [address] [id number] [place] [address]- 7787 Feb, [facility] [place] [facility] [address] [id number] [place] 7295 Feb, [facility] [place] [facility] [address] [id number] [place] 2161 Feb, [facility] [place] [facility] [address] [id number] [place] [address]- 1591 Jan, [facility] [place] [facility] [address] [id number] [place] [address]- 9424 Jan, [facility] [place] [facility] [address] [id number] [place] [address] 2544 Jan, [facility] [place] [facility] [address] [id number] [place] [address]- 4258 Jan, [facility] [place] [facility] [address] [id number] [place] [address]- 6428 Dec, [facility] [place] [facility] [address] [id number] [place] [address]- 1217 Dec, [facility] [place] [facility] [address] [id number] [place] [address] Dec, [facility] [place] [facility] [address] [id number] [place] [address] Dec, [facility] [place] [facility] [address] [id number] [place] [address] Dec, [facility] [place] [facility] [address] [id number] [place] [address] Dec, [facility] [place] [facility] [address] [id number] [place] [address] Dec, [facility] [place] [facility] [address] [id number] [place] [address] Dec, [facility] [place] [facility] [address] [id number] [place] [address] 30 Nov, 2013 [facility] [place] [facility] [address] [id number] [place] [address] 17 Nov, 2013 [facility] [place] [facility] [address] [id number] [place] [address] 254 17 Nov, 2013 [facility] [place] [facility] [address] [id number] [place] [address] Nov, [facility] [place] [facility] [address] [id number] [place] [address] Nov, [facility] [place] [facility] [address] [id number] [place] [address] Oct, [facility] [place] [facility] [address] [id number] [place] [address] Oct, [facility] [place] [facility] [address] [id number] [place] [address] Sep, [facility] [place] [facility] [address] [id number] [place] [address] Sep, [facility] [place] [facility] [address] [id number] [place] [address] Sep, [facility] [place] [facility] [address] [id number] [place] [address] Sep, [facility] [place] [facility] [address] [id number] [place] [address] Sep, [facility] [place] [facility] [address] [id number] [place] [address]- [address] Sep, [facility] [place] [facility] [address] [id number] [place] [address] Sep, [facility] [place] [facility] [address] [id number] [place] [address]- [address] Sep, [facility] [place] [facility] [address] [id number] [place] [address] Sep, [facility] [place] [facility] [address] [id number] [place] [address] Sep, [facility] [place] [facility] [address] [id number] [place] [address] Sep, [facility] [place] [facility] [address] [id number] [place] [address] Sep, [facility] [place] [facility] [address] [id number] [place] [address] Sep, [facility] [place] [facility] [address] [id number] [place] [address] Sep, [facility] [place] [facility] [address] [id number] [place] [address] July, [facility] [place] [facility] [address] [id number] [place] [address] July, [facility] [place] [facility] [address] [id number] [place] [address] July, [facility] [place] [facility] [address] [id number] [place] [address] July, [facility] [place] [facility] [address] [id number] [place] [address] July, [facility] [place] [facility] [address] [id number] [place] [address] July, [facility] [place] [facility] [address] [id number] [place] [address] July, [facility] [place] [facility] [address] [id number] [place] [address] July, [facility] [place] [facility] [address] [id number] [place] [address] Jun, [facility] [place] [facility] [address] [id number] [place] [address] 79[address] Jun, [facility] [place] [facility] [address] [id number] [place] [address] Jun, [facility] [place] [facility] [address] [id number] [place] [address] Jun, [facility] [place] [facility] [address] [id number] [place] [address] Jun, [facility] [place] [facility] [address] [id number] [place] [address] Jun, [facility] [place] [facility] [address] [id number] [place] [address] Jun, [facility] [place] [facility] [address] [id number] [place] [address] Jun, [facility] [place] [facility] [address] [id number] [place] [address] 27 May, 2013 [facility] [place] [facility] [address] [id number] [place] [address] 27 May, 2013 [facility] [place] [facility] [address] [id number] [place] [address] 9094 21 May, 2013 [facility] [place] [facility] [address] [id number] [place] [address] 7865 21 May, 2013 [facility] [place] [facility] [address] [id number] [place] [address] 3982 20 May, 2013 [facility] [place] [facility] [address] [id number] [place] [address]36 20 May, 2013 [facility] [place] [facility] [address] [id number] [place] [address] 8131 19 May, 2013 [facility] [place] [facility] [address] [id number] [place] [address] 0815 19 May, 2013 [facility] [place] [facility] [address] [id number] [place] [address]18 17 May, 2013 [facility] [place] [facility] [address] [id number] [place] [address]376 17 May, 2013 [facility] [place] [facility] [address] [id number] [place] [address] 7938 17 May, 2013 [facility] [place] [facility] [address] [id number] [place] [address] 3626 17 May, 2013 [facility] [place] [facility] [address] [id number] [place] [address] 1552 12 May, 2013 [facility] [place] [facility] [address] [id number] [place] [address] May, [facility] [place] [facility] [address] [id number] [place] [address] 40[address] May, [facility] [place] [facility] [address] [id number] [place] [address] 3671 May, [facility] [place] [facility] [address] [id number] [place] [address] 7930 Apr, [facility] [place] [facility] [address] [id number] [place] [address] 8851 Apr, [facility] [place] [facility] [address] [id number] [place] [address] 2779 Mar, [facility] [place] [facility] [address] [id number] [place] [address] 9930 Mar, [facility] [place] [facility] [address] [id number] [place] [address] 7726 Mar, [facility] [place] [facility] [address] [id number] [place] [address] 9469 Mar, [facility] [place] [facility] [address] [id number] [place] [address] 3423 Mar, [facility] [place] [facility] [address] [id number] [place] [address] 5465 Mar, [facility] [place] [facility] [address] [id number] [address] 17[address] Feb, [facility] [place] [facility] [address] [id number] [place] [address] 9787 Feb, [facility] [place] [facility] [address] [id number] [place] [address] Feb, [facility] [place] [facility] [address] [id number] [place] [address] Feb, [facility] [place] [facility] [address] [id number] [place] [address] Feb, [facility] [place] [facility] [address] [id number] [place] [address] 2548 Feb, [facility] [address] [id number] [place] [address] 1358 Jan, [facility] [place] [facility] [address] [id number] [place] [address] 1470 Jan, [facility] [address] [id number] [place] [address] Jan, [facility] [place] [facility] [address] [id number] [place] [address] 0357 Jan, [facility] [address] [id number] [place] [address] 0105 Jan, [facility] [place] [facility] [address] [id number] [place] [address]- 7529 Jan, [facility] [place] [facility] [address] [id number] [place] [address]- 8968 Jan, [facility] [address] [id number] [place] [address] 3396 Dec, [facility] [place] [facility] [address] [id number] [place] [address] 0976 Dec, [facility] [address] [id number] [place] [address] 2034 Dec, [facility] [place] [facility] [address] [id number] [place] [address] 5661 Nov, [facility] [place] [facility] [address] [id number] [place] [address] 4814 Oct, [facility] [place] [facility] [address] [id number] [place] [address] 7009 Sep, [facility] [place] [facility] [address] [id number] [place] [address]- 2541 Sep, [facility] [place] [facility] [address] [id number] [place] [address]- 2417 Sep, [facility] [address] [id number] [place] [address]- 0058 Sep, [facility] [place] [facility] [address] [id number] [place] [address]- 7727 Sep, [facility] [place] [facility] [address] [id number] [place] [address]- 9667 Sep, [facility] [place] [facility] [address] [id number] [place] [address] 4411 Aug, [facility] [address] [id number] [place] [address] 7039 Aug, [facility] [place] [facility] [address] [id number] [place] [address] 6041 July, [facility] [place] [facility] [address] [id number] [place] [address] 7446 July, [facility] [place] [facility] [address] [id number] [place] [address] 5817 July, [facility] [place] [facility] [address] [id number] [place] [address]- 8937 July, [facility] [place] [facility] [address] [id number] [place] [address] 0185 Jun, [facility] [place] [facility] [address] [id number] [place] [address] 8907 May, [facility] [place] [facility] [address] [id number] [address] 0183 May, [facility] [place] [facility] [address] [id number] [place] [address]- 0893 May, [facility] [place] [facility] [address] [id number] [place] [address] 8506 Mar, [facility] [place] [facility] [address] [id number] [place] [address] 6149 Mar, [facility] [place] [facility] [address] [id number] [place] [address] 68[address] Mar, [facility] [place] [facility] [address] [id number] [place] [address]- 7879 Feb, [facility] [place] [facility] [address] [id number] [place] [address]- 4686 Feb, [facility] [place] [facility] [address] [id number] [place] [address]- 2336 Feb, [facility] [place] [facility] [address] [id number] [place] [address]- 7657 Feb, [facility] [place] [facility] [address] [id number] [place] [address]- 4693 Feb, [facility] [place] [facility] [address] [id number] [place] [address]- 7958 Feb, [facility] [id number] [place] [address] 1579 Feb, [facility] [place] [facility] [address] [id number] [place] [address]- 8470 Feb, [facility] [place] [facility] [address] [id number] [place] [address]- 4498 Feb, [facility] [place] [facility] [address] [facility] [id number] [place] [address]- 1980 Feb, [facility] [place] [facility] [address] [id number] [place] [address]- 9964 Jan, [facility] [place] [facility] [address] [id number] [place] [address]- 6452 Jan, [facility] [place] [facility] [address] [id number] [place] [address]- 0750 Jan, [facility] [place] [facility] [address] [id number] [place] [address]- 8376 Jan, [facility] [place] [facility] [address] [id number] [place] [address] 4541 Jan, [facility] [place] [facility] [address] [id number] [place] [address]- 6532 Jan, [facility] [place] [facility] [address] [id number] [place] [address]- 4818 Jan, [facility] [place] [facility] [address] [id number] [place] [address]- 1566 Jan, [facility] [place] [facility] [address] [id number] [place] [address]- 3251 Jan, [facility] [place] [facility] [address] [id number] [place] [address]- 3091 Jan, [facility] [place] [facility] [address] [id number] [place] [address]- 2301 Dec, [facility] [place] [facility] [address] [id number] [place] [address]- 6135 Dec, [facility] [place] [facility] [address] [id number] [place] [address]- 9100 Nov, [facility] [place] [facility] [address] [id number] [place] [address]- 4533 24 Nov, 2011 [facility] [place] [facility] [address] [id number] [place] [address]- 1986 05 Nov, 2011 [facility] [place] [facility] [address] [id number] [place] [address]- 4915 Oct, [facility] [place] [facility] [address] [id number] [place] [address]- 4824 Oct, [facility] [place] [facility] [address] [id number] [place] [address]- 0692 Oct, [facility] [place] [facility] [address] [id number] [place] [address] Oct, [facility] [place] [facility] [address] [id number] [place] [address]- 5056 Aug, [facility] [place] [facility] [address] [id number] [place] [address]- 3825 15 Aug, 2011 [facility] [place] [facility] [address] [id number] [place] [address]- 6884 14 Aug, 2011 [facility] [place] [facility] [address] [id number] [place] [address]- 7115 07 Aug, 2011 [facility] [place] [facility] [address] [id number] [place] [address]- 9265 08 Jun, 2011 [facility] [place] [facility] [address] [id number] [place] [address]- 1632 May, [facility] [place] [facility] [address] [id number] [place] [address]- 3606 May, [facility] [place] [facility] [address] [id number] [place] [address]- 7080 20 Apr, 2011 [facility] [place] [facility] [address] [id number] [place] [address]- 0167 20 Apr, 2011 [facility] [place] [facility] [address] [id number] [place] [address]- 5733 15 Apr, 2011 [facility] [place] [facility] [address] [id number] [place] [address]- 8030 14 Apr, 2011 [facility] [place] [facility] [address] [id number] [place] [address]- 2649 24 Mar, 2011 [facility] [place] [facility] [address] [id number] [place] [address]- 4952 Mar, [facility] [place] [facility] [address] [id number] [place] [address]- 7549 19 Mar, 2011 [facility] [place] [facility] [address] [id number] [place] [address]- 4854 18 Mar, 2011 [facility] [place] [facility] [address] [id number] [place] [address]- 1181 13 Mar, 2011 [facility] [place] [facility] [address] [id number] [place] [address]- 7548 13 Mar, 2011 [facility] [place] [facility] [address] [id number] [place] [address]- 4018 Feb, [facility] [address] [id number] [place] [address]- 3539 Jan, [facility] [place] [facility] [address] [id number] [place] [address]- 5956 Jan, [facility] [address] [id number] [place] [address]- 7326 Jan, [facility] [place] [facility] [address] [id number] [place] [address]- 1481 Jan, [facility] [address] [id number] [place] [address]- 1777 Jan, [facility] [place] [facility] [address] [id number] [place] [address]- 3800 Dec, [facility] [address] [id number] [place] [address]- 5749 May, [facility] [address] [id number] [place] [address]- 5877 14 Apr, 2010 [facility] [place] [facility] [address] [id number] [place] [address]- 9728 Mar, [facility] [address] [id number] [place] [address]- 7886 Feb, [facility] [place] [facility] [address] [id number] [place] [address]- 2542 Feb, [facility] [place] [facility] [address] [id number] [place] [address]- 2546 14 Feb, 2010 [facility] [place] [facility] [address] [id number] [place] [address]- 9806 13 Feb, 2010 [facility] [place] [facility] [address] [id number] [place] [address]- 2546 11 Dec, 2009 [facility] [place] [facility] [address] [id number] [place] [address]- 9418 Dec, IMMUNIZATIONS No Known Immunizations SOCIAL HISTORY Never Assessed REASON FOR VISIT Rx correction PLAN OF CARE VITAL SIGNS MEDICATIONS Medication Instructions Dosage Frequency Start Date End Date Duration Status NovoLog Flexpen 100 UNIT/ML Subcutaneous 3 times a day 20 UNITS 8h Active RESULTS No Results PROCEDURES No Known [...]
--- OUTSIDE RECORDS SUMMARY | 2017-12-04 10:04 | XMS REPORT ---
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 [address]-94 20 MG Once a day TAKE 1 TABLET EVERY DAY Results No Known Results Summary Purpose eClinicalWorks Submission
--- OUTSIDE RECORDS SUMMARY | 2017-12-04 10:04 | XMS REPORT ---
Author Author [facility] Address [address] [place] [address] Care Team Providers Care Mechanical Systems Designer Name Role Phone JUSTINO YOO Unavailable PROBLEMS Type Condition ICD9-CM Code [id number] Code Onset Dates Condition Status SNOMED Code Problem Obstructive sleep apnea syndrome G47.33 Active 88758075 Problem Essential hypertension I10 Active 62589350 Problem Diabetes E11.9 Active 550743351 Problem Rotator cuff syndrome of right shoulder M75.101 Active 642933993231030 Problem Constipation, unspecified constipation type K59.00 Active 49104197 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 Active 117044491 Problem Type 2 diabetes mellitus with hyperglycemia E11.65 Active 14925052 Problem Irritable bowel syndrome, unspecified type K58.9 Active 84530464 Problem Slow transit constipation K59.01 Active 69731720 Problem Gastroparesis K31.84 Active 970791065 Problem Barretts esophagus without dysplasia K22.70 Active 671423162 Problem BRITTANI (generalized anxiety disorder) F41.1 Active 14042662 Problem Bipolar disorder, current episode depressed, moderate F31.32 Active 780408277 Problem 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 Nov, Active 3082478 Problem Gastro-esophageal reflux disease without esophagitis K21.9 Active 242943454 Problem Panic disorder with agoraphobia F40.01 Active 68629577 Problem Type 2 diabetes mellitus with diabetic autonomic (poly)neuropathy E11.43 Active 197881134 ALLERGIES Substance Reaction Event Type Date Status Codeine Sulfate hives Drug Allergy Apr, Active Advil rash Drug Allergy Apr, Active All nsaids Unknown Non Drug Allergy Apr, Active SOCIAL HISTORY Never Assessed PLAN OF CARE Activity Details Follow Up prn Reason: VITAL SIGNS Height 67 in 2016-04-22 Weight 201.8 lbs 2016-04-22 Temperature 98.3 degrees Fahrenheit 2016-04-22 Heart Rate 84 bpm 2016-04-22 Respiratory Rate 22 2016-04-22 Oximetry on room air:96 % 2016-04-22 BMI 31.60 kg/m2 2016-04-22 Blood pressure systolic 146 mmHg 2016-04-22 Blood pressure diastolic 84 mmHg 2016-04-22 MEDICATIONS Medication Instructions Dosage Frequency Start Date End Date Duration Status Atorvastatin Calcium 40 MG Orally Once a day 1 tablet 24h 90 Active Pantoprazole Sodium 40 mg Orally Once a day 1 tablet 24h 90 days Active Oxybutynin Chloride 5 MG Orally Twice a day 1 tablet 12h 30 Active Aspirin Adult Low Dose 81 MG Orally Once a day 1 tablet 24h Active Nitrostat 0.4 MG Active NovoLog Flexpen 100 UNIT/ML INJECT 20 UNITS SUBCUTANEOUSLY THREE TIMES DAILY BEFORE MEALS 50 Active Adult Mask N/A as directed July, Active Fish Oil 1000 MG Orally Three times a day 1 capsule 8h Active Victoza 18 MG/3ML Subcutaneous Once a day Inject 1.8mg 24h 30 Active Zithromax Z-Karl 250 MG Orally Once a day 2 tablets on the first day, then 1 tablet daily for 4 days 24h Apr, Apr, 5 day(s) Active Gabapentin 300 MG Orally Three times a day 3 capsule 8h 30 Active Metformin HCl 500 MG Orally Twice a day 1 tablet with meals 12h 30 Active C-PAP Machine N/A as directed Oct, Active Vitamin E 100 UNIT Orally Once a day 1 capsule 24h Active Levemir FlexTouch 100 UNIT/ML Subcutaneous 2 times a day Inject 47units in AM and 42 in PM 12h Active Zenpep 98561 UNIT Orally 6 times per day 1 Capsule before meals and snacks Nov, 120 days Active Metoprolol Tartrate 50 MG TAKE 1 TABLET TWICE DAILY 90 Active BusPIRone HCl 10 MG TAKE ONE TABLET BY MOUTH IN THE MORNING, ONE TABLET AT NOON AND TWO TABLETS AT BEDTIME 67 Active Effexor XR 150 MG Orally Once a day 1 capsule with food 24h Oct, Active Test strips one touch ultra test blood sugar Dec, Active Quinapril HCl 20 mg TAKE 1 TABLET EVERY DAY 12h Active RESULTS Name Result Date Reference Range GLUCOSE FINGERSTICK (IN HOUSE) 2016-04-22 GLU FINGERSTICK 347 PC Lot # Exp date UA LONG DIP (IN HOUSE) 2016-04-22 Lot # [id number] Exp date 2017 Clarity clear Color yellow Odor none GLU 2+ FABIÁN 1+ KET 3+ SG 1.020 BLO 1+ pH 5.0 Protein 2+ URO 0.2 NIT negative SAMUEL negative Lot # [id number] Exp date 2017 04 PROCEDURES Procedure Date Ordered Result Body Site MEASURE BLOOD OXYGEN LEVEL Apr 22, 2016 URINALYSIS, AUTO, W/O SCOPE Apr 22, 2016 GLUCOSE BLOOD TEST Apr 22, 2016 IMMUNIZATIONS No Known Immunizations MEDICAL (GENERAL) [...]
--- OUTSIDE RECORDS SUMMARY | 2017-12-04 10:04 | XMS REPORT ---
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 Active Problem Family history of malignant neoplasm of gastrointestinal tract V16.0 Active Assessment BRITTANI (generalized anxiety disorder) F41.1 Active Problem Coronary atherosclerosis of unspecified type of vessel, [place] or graft 414.00 Active Assessment Bipolar disorder, current episode depressed, moderate F31.32 Active Problem Unspecified backache 724.5 Active Medications Medication Code System Code Instructions Start Date End Date Status Dosage Metformin HCl [facility] 80603591384 500 MG Orally Twice a day 1 tablet with meals Quinapril HCl [facility] 95268017440 20 MG Once a day TAKE 1 TABLET EVERY DAY BusPIRone HCl [facility] [address]-39 10 mg Orally Three times a day 1 tab in AM, 1 Tab at noon 2 tabs at HS 1 tablet Metoprolol Tartrate [facility] 49386935801 50 MG TAKE 1 TABLET TWICE DAILY tramadol ND 0 50 mg May 30, 2014 take 1 tablet to 2 tabs by Oral route every 8 hours as needed PRN pain Nitrostat [facility] [address]-01 0.4 MG Sublingual not defined Gabapentin [facility] 99478219398 300 MG Orally Three times a day 3 capsule Bentyl [facility] [address]-88 20 mg Dec 14, 2013 1 tablet by Oral route 4 times per day PRN 90 day supply Loxapine Succinate [facility] [address]-47 10 mg Orally Once a day at bedtime July 07, 2015 1 capsule NovoLog Flexpen [facility] [address]-73 100 UNIT/ML Subcutaneous 3 times a day 20 unit with meals Fish Oil [facility] [address]-06 1000 MG Orally Three times a day 1 capsule Bydureon [facility] 44843259859 2 MG Subcutaneous once weekly 2mg Effexor XR [facility] [address]-24 150 MG Orally Once a day Oct 21, 2014 1 capsule with food Pantoprazole Sodium [facility] [address]-78 40 mg Orally Once a day 1 tablet Oxybutynin Chloride [facility] 70461035436 5 MG Orally Twice a day 1 tablet C-PAP Machine ND 0 N/A Once a day at night Nov 06, 2014 as directed Vitamin E [facility] [address]-24 100 UNIT Orally Once a day 1 capsule Levemir FlexTouch [facility] [address]-18 100 UNIT/ML INJECT 42 UNITS SUBCUTANEOUSLY TWICE DAILY Atorvastatin Calcium [facility] 41711760864 40 MG Orally Once a day 1 tablet Test strips ND 0 one touch ultra 2 times a day DX code: E11.329 Jan 03, 2015 test blood sugar Procedures Procedure Coding System Code Date MH Office Visit, Est Pt., Level 4 CPT-4 95555 July 15, 2015 Vital Signs Date/Time: July 15, 2015 Cardiac Monitoring Heart Rate 88 bpm Weight 208.9 lbs Height 67 in BMI 32.71 Index Blood Pressure Diastolic 86 mmHg Blood Pressure Systolic 148 mmHg Results No Known Results Summary Purpose eClinicalWorks Submission
--- OUTSIDE RECORDS SUMMARY | 2017-12-04 10:04 | XMS REPORT ---
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 Name Role Phone JYOTSNA EMERY Unavailable PROBLEMS Type Condition ICD9-CM Code AVB92-OT Code Onset Dates Condition Status SNOMED Code Problem Diabetes E11.9 Active 989544632 Problem Type 2 diabetes mellitus with hyperglycemia E11.65 Active 66421433 Problem Essential hypertension I10 Active 82961532 Problem Diabetic polyneuropathy associated with diabetes mellitus due to underlying condition E08.42 Active 02970339 Problem Rotator cuff syndrome of right shoulder M75.101 Active 638003991967921 Problem Slow transit constipation K59.01 Active 32104287 Problem FCI current use of insulin Z79.4 Active 444614678 Problem Constipation, unspecified constipation type K59.00 Active 62757725 Problem Irritable bowel syndrome, unspecified type K58.9 Active 39506978 Problem Barretts esophagus without dysplasia K22.70 Active 054987121 Problem 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 Nov, Active 3180393 Problem Herniation of intervertebral disc at C5-C6 level M50.222 Active 860006953 Problem Gastroparesis K31.84 Active 367946185 Problem Bipolar disorder, current episode depressed, moderate F31.32 Active 841335023 Problem Gastro-esophageal reflux disease without esophagitis K21.9 Active 106039865 Problem Panic disorder with agoraphobia F40.01 Active 99165223 Problem Type 2 diabetes mellitus with diabetic autonomic (poly)neuropathy E11.43 Active 903108910 Problem BRITTANI (generalized anxiety disorder) F41.1 Active 34271988 Problem Obstructive sleep apnea syndrome G47.33 Active [id number] ALLERGIES No Information ENCOUNTERS Encounter Location Date Diagnosis [facility] [address] [facility] [id number] [address] Jun, Type 2 diabetes mellitus with diabetic autonomic (poly) neuropathy E11.43 and Type 2 diabetes mellitus with hyperglycemia E11.65 [facility] [address] [address] May, [facility] [address] [address]- [address] May, Bipolar disorder, current episode depressed, moderate F31.32 [facility] [address] [address] May, [facility] [address] [address]- [address] May, Diabetic polyneuropathy associated with diabetes mellitus due to underlying condition E08.42 [place] [address] [address]- [address]23 Apr, [place] [address] [address]- 2876 Feb, Ganglion cyst of dorsum of right wrist M67.431 [place] [address] 57012- 1781 Jan, Other cyst of bone, right forearm M85.631 [place] [address] 73745- 8190 Jan, [place] [address] 93180- 8733 Jan, Diabetes E11.9 and Right forearm pain M79.631 [place] [address] 7[address]40- 9059 Dec, Encounter for immunization Z23 [place] [address] 9[address]00- 6983 Nov, [place] [address] 94692- 9687 Nov, Type 2 diabetes mellitus with hyperglycemia E11.65 [place] [address] 49057- 1752 Nov, Severe pain of right shoulder M25.511 [facility] [address] [place] [id number] [place] [address] 82244- 6353 Oct, Diabetes E11.9 [facility] [address] [place] [id number] [place] [address] 54583- 1201 Oct, Diabetes E11.9 [facility] [address] [place] [id number] [place] [address] 73872- 0400 Oct, [facility] [address] [place] [id number] [place] [address] 05552- 2377 Oct, [facility] [address] [place] [id number] [place] [address] 56058- 2923 Oct, Rotator cuff syndrome of right shoulder M75.101 [place] [address] [place] [id number] [place] [address] 18379- 4711 Oct, Diabetes E11.9 [facility] [address] [place] [id number] [place] [address] 45820- 6175 Sep, Type 2 diabetes mellitus with hyperglycemia E11.65 ; Obstructive sleep apnea syndrome G47.33 and Constipation, unspecified constipation type K59.00 [facility] [address] [place] [id number] [place] [address] 48543- 9606 Aug, [facility] [address] [place] [id number] [place] [address] 51256- 9245 Aug, [facility] [address] [place] [id number] [place] [address] 49589- 0140 Aug, Type 2 diabetes mellitus with diabetic autonomic (poly) neuropathy E11.43 [facility] [address] [place] [id number] [place] [address] 02795- 0174 July, Type 2 diabetes mellitus with hyperglycemia E11.65 [facility] [address] [place] [id number] [place] [address] 99985- 7531 Jun, Slow transit constipation K59.01 [facility] [address] [place] [address] 30[address] May, [place] [address] [place] [id number] [place] [address] 25698- 6680 May, Diabetes E11.9 [place] [address] 99164- 1675 May, [facility] [place] [address] 24678 -9225 Apr, [place] [address] 02836- 1351 Apr, Gastroenteritis K52.9 [facility] [place] [address] 32018 -5724 Apr, Abdominal pain, unspecified location R10.9 ; Gastroenteritis K52.9 ; Type 2 diabetes mellitus with hyperglycemia E11.65 and appeals referee current use of insulin Z79.4 [place] [address] [place] [id number] [place] [address] 93769- 9590 Apr, [place] [address] 65181- 0254 Apr, [place] [address] [place] [id number] [place] [address] 92220- 7985 Apr, Diabetes E11.9 ; Gastroparesis K31.84 ; Generalized abdominal pain R10.84 ; Essential hypertension I10 ; Bronchitis J40 and Other fatigue R53.83 [facility] [address] [place] [id number] [place] [address] 86526 -0968 Mar, [facility] [place] [address] 08412 -6191 Mar, [facility] [place] [address] 51638 -7630 Mar, Laceration of scalp without foreign body, initial encounter S01.01XA ; Laceration of face, initial encounter S01.81XA and Encounter for immunization Z23 [place] [address] [place] [id number] [place] [address] 44344- 6880 Mar, Type 2 diabetes mellitus with diabetic autonomic (poly) neuropathy E11.43 [place] [address] [place] [id number] [place] [address] 96993- 3676 Feb, [place] [address] [place] [id number] [place] [address] 16493- 8774 Feb, Internal hemorrhoids K64.8 and Obstructive sleep apnea syndrome G47.33 [place] [address] [place] [id number] [place] [address] 65137- 9865 Feb, SI (sacroiliac) joint dysfunction M53.[address] 66017- 7357 Jan, [place] [address] 07004- 4057 Dec, Gastroparesis K31.84 [place] [address] 96356- 0103 Dec, [address] 47629- 0979 Dec, Right hip pain M25.551 ; Nose congested R09.81 and Encounter for immunization Z23 [place] [address] [place] [id number] [place] [address] 05420- 6449 Nov, Diabetes E11.9 ; Gastroparesis K31.84 ; Type 2 diabetes mellitus with diabetic autonomic (poly)neuropathy E11.43 and Obstructive sleep apnea syndrome G47.33 [place] [address] [place] [id number] [place] [address] 10439- 0216 Oct, [place] [address] 44290- 2887 Aug, [place] [address] [place] [id number] [place] [address] 15687- 1875 July, Gastro-esophageal reflux disease without esophagitis K21.9 [facility] [address] [place] [id number] [place] [address] 77004- 9018 July, [facility] [address] [place] [id number] [place] [address] 28792- 2810 July, Diabetes E11.9 [facility] [address] [place] [id number] [place] [address] 88484- 6571 July, Diabetes E11.9 ; Obstructive sleep apnea syndrome G47.33 and Neuropathy G62.9 [facility] [address] [place] [id number] [place] [address] 55813- 0347 July, Bipolar disorder, current episode depressed, moderate F31.32 ; BRITTANI (generalized anxiety disorder) F41.1 and Panic disorder with agoraphobia F40.01 [place] [address] [place] [id number] [place] [address] 15246- 1814 Jun, [facility] [address] [place] [id number] [place] [address] 21348- 6765 Jun, [facility] [address] [place] [id number] [place] [address] 67363- 4242 Jun, [facility] [address] [place] [id number] [place] [address] 74498- 0763 Jun, [facility] [address] [place] [id number] [place] [address] [id number] May, Encounter for dental examination and cleaning without abnormal findings Z01.20 [facility] [address] [place] [id number] [place] [address] 85214- 5922 Apr, [facility] [address] [place] [id number] [place] [address] 46698- 5132 Apr, [facility] [address] [place] [id number] [place] [address] 71454- 0676 Apr, Bipolar disorder, current episode depressed, moderate F31.32 ; BRITTANI (generalized anxiety disorder) F41.1 and Panic disorder with agoraphobia F40.01 [facility] [address] [place] [id number] [place] [address] 73241- 9007 04 Apr, 2015 Hyperlipidemia, unspecified E78.5 [facility] [address] [place] [id number] [place] [address] [id number] Apr, Dental caries K02.9 [facility] [address] [place] [id number] [place] [address] [id number] Feb, Dental caries K02.9 and Encounter for dental examination Z01.20 [place] [address] [place] [id number] [place] [address] 09997- 8126 Feb, [place] [address] 38037- 8880 15 Feb, 2015 Diabetes E11.9 ; Insulin long-term use Z79.4 ; Diabetic polyneuropathy associated with diabetes mellitus due to underlying condition E08.42 and Barretts esophagus with high grade dysplasia K22.711 [place] [id number] [place] [address] 02030- 9948 Feb, [place] [id number] [place] [address] 48299- 2975 Jan, Pain in right hip M25.551 and Other chronic pain G89.29 [place] [id number] [place] [address] 83571- 6311 Jan, Impingement syndrome, shoulder, left M75.42 [place] [id number] [place] [address] 81967- 1044 Jan, Bipolar disorder, current episode depressed, moderate F31.32 ; Generalized anxiety disorder F41.1 and Agoraphobia with panic disorder F40.[address] 65771- 9737 Jan, [place] [address] [place] [id number] [place] [address] 11385- 2727 Dec, [place] [address] 02252- 8681 Dec, [facility] [address] [address]- 3581 Dec, Right hip pain M25.551 and Left shoulder pain M25.512 [facility] [address] [place] [id number] [address]- 8199 Dec, Bipolar 1 disorder, depressed, moderate F31.32 ; BRITTANI ( generalized anxiety disorder) F41.1 and Panic disorder with agoraphobia F40.01 [facility] [address] [place] [id number] [place] [address] 64280- 0792 Dec, [facility] [address] [place] [id number] [place] [address] 42482- 3003 Dec, [facility] [address] [place] [id number] [place] [address] 23744- 2388 Nov, [facility] [address] [place] [id number] [place] [address] 37127- 2289 18 Nov, 2014 [facility] [address] [place] [id number] [place] [address] 46854- 0063 Nov, [facility] [address] [place] [id number] [place] [address] 25546- 5335 14 Nov, 2014 Diabetes 250.00 [facility] [address] [place] [id number] [place] [address] 24720- 1628 Oct, [facility] [address] [place] [address] 97137- 0540 Oct, [facility] [address] [place] [id number] [place] [address] 31080- 7929 Oct, [facility] [address] [place] [id number] [place] [address] 01700- 4432 Oct, [facility] [address] [address]- 7173 Oct, [facility] [address] [place] [id number] [place] [address] 14060- 6031 Oct, [facility] [address] [address]- 7334 Oct, Diabetes 250.00 ; Insomnia 780.52 and Forgetfulness 780.99 [facility] [address] [address] Oct, Depressive disorder, not elsewhere classified 311 [facility] [address] [place] [id number] [place] [address] 25635- 3606 Sep, [facility] [address] [place] [id number] [address]- 1769 Sep, [facility] [address] [place] [id number] [place] [address] 04466- 8038 Sep, [facility] [address] [place] [id number] [address]- 7365 Sep, [facility] [address] [place] [id number] [place] [address] 73577- 7507 Sep, [facility] [address] [address]- 5955 Sep, [facility] [address] [place] [id number] [place] [address] 859528- 8100 Sep, [facility] [address] [address]- 7050 Aug, [facility] [address] [id number] Aug, Dental examination V72.2 [facility] [address] [address]- 8293 Aug, [facility] [address] [place] [id number] [address]- 5966 Aug, [facility] [address] [address]- 3508 July, [facility] [address] [place] [id number] [place] [address] 88670- 2256 July, [facility] [address] [id number] [place] [address]- 5453 July, [facility] [place] [facility] [address] [id number] [place] [address]- 8578 July, [facility] [place] [facility] [address] [facility] [id number] [place] [address]- 0647 Jun, [facility] [place] [facility] [address] [id number] [place] [address]- 1985 Jun, [facility] [place] [facility] [address] [id number] [place] [address]- 6163 May, [facility] [place] [facility] [address] [id number] [place] [address]- 9541 May, [facility] [place] [facility] [address] [facility] [id number] [place] [address]- 3415 May, [facility] [place] [facility] [address] [facility] [id number] [place] [address]- 9895 May, [facility] [place] [facility] [address] [facility] [id number] [place] [address]- 4782 May, [facility] [place] [facility] [address] [facility] [id number] [place] [address]- 3318 May, [facility] [place] [facility] [address] [id number] [place] [address]- 1871 16 May, 2014 [facility] [place] [facility] [address] [facility] [id number] [address]- 6251 May, [facility] [place] [facility] [address] [id number] [place] [address]- 9682 Apr, [facility] [place] [facility] [address] [id number] [place] [address]- 1292 Apr, [facility] [place] [facility] [address] [facility] [id number] [address]- 7704 Apr, [facility] [place] [facility] [address] [id number] [place] [address]- 2871 Apr, [facility] [place] [facility] [address] [id number] [place] [address]- 3126 Apr, [facility] [place] [facility] [address] [id number] [place] [address]- 6526 Apr, [facility] [place] [facility] [address] [id number] [place] [address]- 7405 Mar, [facility] [place] [facility] [address] [id number] [place] [address]- 8156 Mar, [facility] [place] [facility] [address] [id number] [place] [address]- 7167 Mar, [facility] [place] [facility] [address] [id number] [place] [address]- 4692 Mar, [facility] [place] [facility] [address] [id number] [place] [address]- 0135 Mar, [facility] [place] [facility] [address] [id number] [place] [address]- 5286 Mar, [facility] [place] [facility] [address] [id number] [place] [address]- 9370 Mar, [facility] [place] [facility] [address] [id number] [place] [address]- 6333 Mar, [facility] [place] [facility] [address] [id number] [place] [address]- 0895 Mar, [facility] [place] [facility] [address] [id number] [place] [address]- 5302 Mar, [facility] [place] [facility] [address] [id number] [place] [address]- 1637 Mar, [facility] [place] [facility] [address] [id number] [place] [address]- 2030 Mar, [facility] [place] [facility] [address] [id number] [place] [address]- 8649 Mar, [facility] [place] [facility] [address] [id number] [place] [address]- 3183 Mar, [facility] [place] [facility] [address] [id number] [place] 4420 Feb, [facility] [place] [facility] [address] [id number] [place] [address]- 6666 Feb, [facility] [place] [facility] [address] [id number] [place] [address]- 6335 Feb, [facility] [place] [facility] [address] [id number] [place] [address]- 4895 Feb, [facility] [place] [facility] [address] [id number] [place] [address]- 2977 Feb, [facility] [place] [facility] [address] [id number] [place] [address]- 0608 Feb, [facility] [place] [facility] [address] [id number] [place] [address]- 7726 16 Feb, 2014 [facility] [place] [facility] [address] [id number] [place] [address]- 6930 Feb, [facility] [place] [facility] [address] [id number] [place] [address]- 8137 16 Feb, 2014 [facility] [place] [facility] [address] [id number] [place] [address]- 1084 16 Feb, 2014 [facility] [place] [facility] [address] [id number] [place] [address]- 0158 10 Feb, 2014 [facility] [place] [facility] [address] [id number] [place] [address]- 3312 Feb, [facility] [place] [facility] [address] [id number] [place] 4559 Feb, [facility] [place] [facility] [address] [id number] [place] 4823 Feb, [facility] [place] [facility] [address] [id number] [place] [address]- 5454 Jan, [facility] [place] [facility] [address] [id number] [place] [address]- 6341 Jan, [facility] [place] [facility] [address] [id number] [place] [address] 2549 Jan, [facility] [place] [facility] [address] [id number] [place] [address]- 3810 Jan, [facility] [place] [facility] [address] [id number] [place] [address]- 5280 Dec, [facility] [place] [facility] [address] [id number] [place] [address]- 9932 Dec, [facility] [place] [facility] [address] [id number] [place] 5575 Dec, [facility] [place] [facility] [address] [id number] [place] [address]- 7191 Dec, [facility] [place] [facility] [address] [id number] [place] [address]- 9525 Dec, [facility] [place] [facility] [address] [id number] [place] [address]- 9336 Dec, [facility] [place] [facility] [address] [id number] [place] [address]- 3618 Dec, [facility] [place] [facility] [address] [id number] [place] [address]- 1568 Dec, [facility] [place] [facility] [address] [id number] [place] [address]- 6044 30 Nov, 2013 [facility] [place] [facility] [address] [id number] [place] [address]- 5750 17 Nov, 2013 [facility] [place] [facility] [address] [id number] [place] [address] 2545 17 Nov, 2013 [facility] [place] [facility] [address] [id number] [place] [address]- 2742 Nov, [facility] [place] [facility] [address] [id number] [place] [address]- 7482 Nov, [facility] [place] [facility] [address] [id number] [place] [address]- 4452 Oct, [facility] [place] [facility] [address] [id number] [place] [address]- 3759 Oct, [facility] [place] [facility] [address] [id number] [place] [address]- 6498 Sep, [facility] [place] [facility] [address] [id number] [place] [address]- 5863 Sep, [facility] [place] [facility] [address] [id number] [place] [address]- 0971 Sep, [facility] [place] [facility] [address] [id number] [place] [address]- 8841 Sep, [facility] [place] [facility] [address] [id number] [place] [address]- 9137 Sep, [facility] [place] [facility] [address] [id number] [place] [address]- 0377 Sep, [facility] [place] [facility] [address] [id number] [place] [address]- 3779 Sep, [facility] [place] [facility] [address] [id number] [place] [address]- 1431 Sep, [facility] [place] [facility] [address] [id number] [place] [address]- 1955 Sep, [facility] [place] [facility] [address] [id number] [place] [address]- 3294 Sep, [facility] [place] [facility] [address] [id number] [place] [address]- 2628 Sep, [facility] [place] [facility] [address] [id number] [place] [address]- 0587 Sep, [facility] [place] [facility] [address] [id number] [place] [address] Sep, [facility] [place] [facility] [address] [id number] [place] [address] Sep, [facility] [place] [facility] [address] [id number] [place] [address] July, [facility] [place] [facility] [address] [id number] [place] [address] July, [facility] [place] [facility] [address] [id number] [place] [address] July, [facility] [place] [facility] [address] [id number] [place] [address] July, [facility] [place] [facility] [address] [id number] [place] [address] July, [facility] [place] [facility] [address] [id number] [place] [address] July, [facility] [facility] [address] [id number] [place] [address] July, [facility] [place] [facility] [address] [id number] [place] [address] July, [facility] [place] [facility] [address] [id number] [place] [address] Jun, [facility] [place] [facility] [address] [id number] [place] [address] Jun, [facility] [place] [facility] [address] [id number] [place] [address] Jun, [facility] [place] [facility] [address] [id number] [place] [address] Jun, [facility] [place] [facility] [address] [id number] [place] [address] Jun, [facility] [place] [facility] [address] [id number] [place] [address] Jun, [facility] [place] [facility] [address] [id number] [place] [address] Jun, [facility] [place] [facility] [address] [id number] [place] [address] Jun, [facility] [place] [facility] [address] [id number] [place] [address] 27 May, 2013 [facility] [place] [facility] [address] [id number] [place] [address] 27 May, 2013 [facility] [place] [facility] [address] [id number] [place] [address] 21 May, 2013 [facility] [place] [facility] [address] [id number] [place] [address] 21 May, 2013 [facility] [place] [facility] [address] [id number] [place] [address] 20 May, 2013 [facility] [place] [facility] [address] [id number] [place] [address] 20 May, 2013 [facility] [place] [facility] [address] [id number] [place] [address] 19 May, 2013 [facility] [place] [facility] [address] [id number] [place] [address] 19 May, 2013 [facility] [place] [facility] [address] [id number] [place] [address] 17 May, 2013 [facility] [place] [facility] [address] [id number] [place] [address] 17 May, 2013 [facility] [place] [facility] [address] [id number] [place] [address] 17 May, 2013 [facility] [place] [facility] [address] [id number] [place] [address] 17 May, 2013 [facility] [place] [facility] [address] [id number] [place] [address] 12 May, 2013 [facility] [place] [facility] [address] [id number] [place] [address] May, [facility] [place] [facility] [address] [id number] [place] [address] May, [facility] [place] [facility] [address] [id number] [place] [address] May, [facility] [place] [facility] [address] [id number] [place] [address] Apr, [facility] [place] [facility] [address] [id number] [place] [address] Apr, [facility] [place] [facility] [address] [id number] [place] [address] Mar, [facility] [place] [facility] [address] [id number] [place] [address] Mar, [facility] [place] [facility] [address] [id number] [place] [address] Mar, [facility] [place] [facility] [address] [id number] [place] [address] Mar, [facility] [place] [facility] [address] [id number] [place] [address] Mar, [facility] [place] [facility] [address] [id number] [place] [address] 477[address] Mar, [facility] [place] [facility] [address] [id number] [address] Feb, [facility] [place] [facility] [address] [id number] [place] [address] Feb, [facility] [place] [facility] [address] [id number] [place] [address] Feb, [facility] [place] [facility] [address] [id number] [place] [address] Feb, [facility] [place] [facility] [address] [id number] [place] [address] Feb, [facility] [place] [facility] [address] [id number] [place] [address] 2549 Feb, [facility] [address] [id number] [place] [address] Jan, [facility] [place] [facility] [address] [id number] [place] [address] Jan, [facility] [address] [id number] [place] [address] Jan, [facility] [place] [facility] [address] [id number] [place] [address] 6[address] Jan, [facility] [address] [id number] [place] [address] Jan, [facility] [place] [facility] [address] [id number] [place] [address] Jan, [facility] [place] [facility] [address] [id number] [place] [address] Jan, [facility] [address] [id number] [place] [address] Dec, [facility] [place] [facility] [address] [id number] [place] [address] Dec, [facility] [address] [id number] [place] [address] Dec, [facility] [place] [facility] [address] [id number] [place] [address] Nov, [facility] [place] [facility] [address] [id number] [place] [address] Oct, [facility] [place] [facility] [address] [id number] [place] [address] Sep, [facility] [place] [facility] [address] [id number] [place] [address] Sep, [facility] [place] [facility] [address] [id number] [place] [address] Sep, [facility] [address] [id number] [place] [address] 39[address] Sep, [facility] [place] [facility] [address] [id number] [place] [address]666 Sep, [facility] [place] [facility] [address] [id number] [place] [address] Sep, [facility] [place] [facility] [address] [id number] [place] [address] Aug, [facility] [address] [id number] [place] [address] Aug, [facility] [place] [facility] [address] [id number] [place] [address] July, [facility] [place] [facility] [address] [id number] [place] [address] July, [facility] [place] [facility] [address] [id number] [place] [address] 7[address] July, [facility] [place] [facility] [address] [id number] [place] [address] July, [facility] [place] [facility] [address] [id number] [place] [address] 93[address] Jun, [facility] [place] [facility] [address] [id number] [place] [address] 79[address] May, [facility] [place] [facility] [address] [id number] [address] May, [facility] [place] [facility] [address] [id number] [place] [address] May, [facility] [place] [facility] [address] [id number] [place] [address] Mar, [facility] [place] [facility] [address] [id number] [address] Mar, [facility] [place] [facility] [address] [id number] [address] Mar, [facility] [place] [facility] [address] [id number] [place] [address] Feb, [facility] [place] [facility] [address] [id number] [place] [address] Feb, [facility] [place] [facility] [address] [id number] [place] [address] 6[address] Feb, [facility] [place] [facility] [address] [id number] [place] [address] 2795 Feb, [facility] [place] [facility] [address] [id number] [place] [address] 6471 Feb, [facility] [place] [facility] [address] [id number] [place] [address] 2427 Feb, [facility] [id number] [place] [address] Feb, [facility] [place] [facility] [address] [id number] [place] [address] 388[address] Feb, [facility] [place] [facility] [address] [id number] [place] [address] Feb, [facility] [place] [facility] [address] [facility] [id number] [place] [address] 6707 Feb, [facility] [place] [facility] [address] [id number] [place] [address] 97[address] Jan, [facility] [place] [facility] [address] [id number] [place] [address] 2862 Jan, [facility] [place] [facility] [address] [id number] [place] [address] 2274 Jan, [facility] [place] [facility] [address] [id number] [place] [address] 0760 Jan, [facility] [place] [facility] [address] [id number] [place] [address] 79[address] Jan, [facility] [place] [facility] [address] [id number] [place] [address] 73[address] Jan, [facility] [place] [facility] [address] [id number] [place] [address]- 3084 Jan, [facility] [place] [facility] [address] [id number] [place] [address] 9836 Jan, [facility] [place] [facility] [address] [id number] [place] [address] 1737 Jan, [facility] [place] [facility] [address] [id number] [place] [address] 8143 Jan, [facility] [place] [facility] [address] [id number] [place] [address] 5959 Dec, [facility] [place] [facility] [address] [id number] [place] [address] 0553 Dec, [facility] [place] [facility] [address] [id number] [place] [address] 4[address] Nov, [facility] [place] [facility] [address] [id number] [place] [address] 6761 24 Nov, 2011 [facility] [place] [facility] [address] [id number] [place] [address]- 4216 05 Nov, 2011 [facility] [place] [facility] [address] [id number] [place] [address] 4776 Oct, [facility] [place] [facility] [address] [id number] [place] [address]- 8537 Oct, [facility] [place] [facility] [address] [id number] [place] [address] 5022 Oct, [facility] [place] [facility] [address] [id number] [place] [address] Oct, [facility] [place] [facility] [address] [id number] [place] [address]- 5566 Aug, [facility] [place] [facility] [address] [id number] [place] [address]- 4538 15 Aug, 2011 [facility] [place] [facility] [address] [id number] [place] [address]- 4994 14 Aug, 2011 [facility] [place] [facility] [address] [id number] [place] [address]- 7420 07 Aug, 2011 [facility] [place] [facility] [address] [id number] [place] [address]- 5604 08 Jun, 2011 [facility] [place] [facility] [address] [id number] [place] [address]- 9622 May, [facility] [place] [facility] [address] [id number] [place] [address]- 3160 May, [facility] [place] [facility] [address] [id number] [place] [address]- 9959 20 Apr, 2011 [facility] [place] [facility] [address] [id number] [place] [address]- 9057 20 Apr, 2011 [facility] [place] [facility] [address] [id number] [place] [address]- 6681 15 Apr, 2011 [facility] [place] [facility] [address] [id number] [place] [address]- 1212 14 Apr, 2011 [facility] [place] [facility] [address] [id number] [place] [address]- 1837 24 Mar, 2011 [facility] [place] [facility] [address] [id number] [place] [address]- 1174 Mar, [facility] [place] [facility] [address] [id number] [place] [address]- 0711 19 Mar, 2011 [facility] [place] [facility] [address] [id number] [place] [address]- 6791 18 Mar, 2011 [facility] [place] [facility] [address] [id number] [place] [address]- 7612 13 Mar, 2011 [facility] [place] [facility] [address] [id number] [place] [address]- 6475 13 Mar, 2011 [facility] [place] [facility] [address] [id number] [place] [address]- 3325 Feb, [facility] [address] [id number] [place] [address]- 2269 Jan, [facility] [place] [facility] [address] [id number] [place] [address]- 4916 Jan, [facility] [address] [id number] [place] [address]- 4176 Jan, [facility] [place] [facility] [address] [id number] [place] [address]- 0131 Jan, [facility] [address] [id number] [place] [address]- 6285 Jan, [facility] [place] [facility] [address] [id number] [place] [address]- 7784 Dec, [facility] [address] [id number] [place] [address]- 5425 May, [facility] [address] [id number] [place] [address]- 2585 14 Apr, 2010 [facility] [place] [facility] [address] [id number] [place] [address]- 68[address] Mar, [facility] [address] [id number] [place] [address]- 0221 Feb, [facility] [place] [facility] [address] [id number] [place] [address]- 2541 Feb, [facility] [place] [facility] [address] [id number] [place] [address]- 2546 14 Feb, 2010 [facility] [place] [facility] [address] [id number] [place] [address]- 0146 13 Feb, 2010 [facility] [place] [facility] [address] [id number] [place] [address]- 2546 11 Dec, 2009 [facility] [place] [facility] [address] [id number] [place] [address]- 5395 11 Dec, 2009 IMMUNIZATIONS No Known Immunizations SOCIAL HISTORY Never Assessed REASON FOR VISIT novolog refill PLAN OF CARE VITAL SIGNS MEDICATIONS Medication [...]
--- OUTSIDE RECORDS SUMMARY | 2017-12-04 10:04 | XMS REPORT ---
Author Author SUJEY MORELAND [employer]Clinical[employer] Address Unknown Phone Unavailable Care Team Providers Care Batch Analyst Name Role Phone SUJEY MORELAND CP Unavailable [...] Coronary atherosclerosis of unspecified type of vessel, [place] or graft 414.00 Active Problem Unspecified backache 724.5 Active Medications Medication Code System Code Instructions Start Date End Date Status Dosage Loxapine Succinate [facility] [id number] 10 mg Orally Once a day at bedtime July 07, 2015 1 capsule Results No Known Results Summary Purpose eClinicalWorks Submission
--- OUTSIDE RECORDS SUMMARY | 2017-12-04 10:04 | XMS REPORT ---
Author Author JYOTSNA EMERY [facility] Address [address] [place] [address] Care Team Providers Care Fondant Puff Maker Name Role Phone JYOTSNA EMERY Unavailable PROBLEMS Type Condition ICD9-CM Code [id number] Code Onset Dates Condition Status SNOMED Code Problem Obstructive sleep apnea syndrome G47.33 Active 34436305 Problem Essential hypertension I10 Active 28086621 Problem Diabetes E11.9 Active 283736548 Problem Rotator cuff syndrome of right shoulder M75.101 Active 342087452727810 Problem Constipation, unspecified constipation type K59.00 Active 49848466 Problem assisted current use of insulin Z79.4 Active 311844511 Problem Type 2 diabetes mellitus with hyperglycemia E11.65 Active 94471192 Problem Irritable bowel syndrome, unspecified type K58.9 Active 66184409 Problem Slow transit constipation K59.01 Active 34982294 Problem Gastroparesis K31.84 Active 335534652 Problem Barretts esophagus without dysplasia K22.70 Active 029476017 Problem BRITTANI (generalized anxiety disorder) F41.1 Active 38125024 Problem Bipolar disorder, current episode depressed, moderate F31.32 Active 718427807 Problem 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 01 Nov, 2014 Active 9908443 Problem Gastro-esophageal reflux disease without esophagitis K21.9 Active 880438772 Problem Panic disorder with agoraphobia F40.01 Active 18645997 Problem Type 2 diabetes mellitus with diabetic autonomic (poly)neuropathy E11.43 Active 854862476 ALLERGIES Unknown Allergies SOCIAL HISTORY No smoking Hx information available PLAN OF CARE VITAL SIGNS MEDICATIONS Medication [...] AND TWO TABLETS AT BEDTIME 67 Active Metoprolol Tartrate 50 MG TAKE 1 TABLET TWICE DAILY 90 Active Quinapril HCl 20 MG TAKE 1 TABLET EVERY DAY 24h 30 Active Effexor XR 150 MG Orally Once a day 1 capsule with food 24h Oct, Active Metformin HCl 500 MG Orally Twice a day 1 tablet with meals 12h 30 Active Gabapentin 300 MG Orally Three times a day 3 capsule 8h 30 Active Aspirin Adult Low Dose 81 MG Orally Once a day 1 tablet 24h Active Zenpep 90054 UNIT Orally 6 times per day 1 Capsule before meals and snacks Nov, 120 days Active Levemir FlexTouch 100 UNIT/ML Subcutaneous 2 times a day Inject 42units 12h 90 days Active Test strips one touch ultra test blood sugar Dec, Active Adult Mask N/A as directed July, Active NovoLog Flexpen 100 UNIT/ML INJECT 20 UNITS SUBCUTANEOUSLY THREE TIMES DAILY BEFORE MEALS 50 Active Fish Oil 1000 MG Orally Three times a day 1 capsule 8h Active Victoza 18 MG/3ML Subcutaneous Once a day Inject 1.8mg 24h July, 30 day(s) Active Nitrostat 0.4 MG Active Vitamin E 100 UNIT Orally Once a day 1 capsule 24h Active C-PAP Machine N/A as directed Oct, Active RESULTS No Results PROCEDURES No Known procedures IMMUNIZATIONS No Known Immunizations
--- OUTSIDE RECORDS SUMMARY | 2017-12-04 10:04 | XMS REPORT ---
Author Author JYOTSNA EMERY Organization [facility] Address [address] [place] [address] Care Team Providers Care Pattern Molder Name Role Phone JYOTSNA EMERY Unavailable PROBLEMS Type Condition ICD9-CM Code [id number] Code Onset Dates Condition Status SNOMED Code Problem Obstructive sleep apnea syndrome G47.33 Active 26879346 Problem Essential hypertension I10 Active 48442426 Problem Diabetes E11.9 Active 367455110 Problem Rotator cuff syndrome of right shoulder M75.101 Active 807444897701389 Problem Constipation, unspecified constipation type K59.00 Active 75833881 Problem FPC current use of insulin Z79.4 Active 548195987 Problem Type 2 diabetes mellitus with hyperglycemia E11.65 Active 74732828 Problem Irritable bowel syndrome, unspecified type K58.9 Active 31507677 Problem Slow transit constipation K59.01 Active 96780561 Problem Gastroparesis K31.84 Active 372963702 Problem Barretts esophagus without dysplasia K22.70 Active 470635144 Problem BRITTANI (generalized anxiety disorder) F41.1 Active 31964542 Problem Bipolar disorder, current episode depressed, moderate F31.32 Active 636495449 Problem 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
--- OUTSIDE RECORDS SUMMARY | 2017-12-04 10:05 | XMS REPORT ---
Author Author JYOTSNA EMERY [facility] eClinicalWorks Address Unknown Phone Unavailable Care Team Providers Care Operational Risk Analyst Name Role Phone JYOTSNA EMERY CP Unavailable [...] Coronary atherosclerosis of unspecified type of vessel, [place] or graft 414.00 Active Problem Unspecified essential hypertension 401.9 Active Medications No Known Medications Results No Known Results Summary Purpose eClinicalWorks Submission
--- OUTSIDE RECORDS SUMMARY | 2017-12-04 10:05 | XMS REPORT ---
Author Author JYOTSNA EMERY Organization [facility] Address [address] [place] [address] Care Team Providers Care Diplomatic Courier Name Role Phone JYOTSNA EMERY Unavailable PROBLEMS Type Condition ICD9-CM Code [id number] Code Onset Dates Condition Status SNOMED Code Problem Diabetes E11.9 Active 789161750 Problem Type 2 diabetes mellitus with hyperglycemia E11.65 Active 03079242 Problem Essential hypertension I10 Active 03592908 Problem Diabetic polyneuropathy associated with diabetes mellitus due to underlying condition E08.42 Active 01700686 Problem Rotator cuff syndrome of right shoulder M75.101 Active [id number] Problem Slow transit constipation K59.01 Active 32398069 Problem half-way current use of insulin Z79.4 Active 155405616 Problem Constipation, unspecified constipation type K59.00 Active 16418691 Problem Irritable bowel syndrome, unspecified type K58.9 Active 67809425 Problem Barretts esophagus without dysplasia K22.70 Active 797363056 Problem 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 Nov, Active 6533988 Problem Herniation of intervertebral disc at C5-C6 level M50.222 Active 542160735 Problem Gastroparesis K31.84 Active 333391722 Problem Bipolar disorder, current episode depressed, moderate F31.32 Active 486956983 Problem Gastro-esophageal reflux disease without esophagitis K21.9 Active 483669008 Problem Panic disorder with agoraphobia F40.01 Active 14008218 Problem Type 2 diabetes mellitus with diabetic autonomic (poly)neuropathy E11.43 Active 827887716 Problem BRITTANI (generalized anxiety disorder) F41.1 Active 02371304 Problem Obstructive sleep apnea syndrome G47.33 Active 66356002 ALLERGIES No Information ENCOUNTERS Encounter Location Date Diagnosis [facility] [address] [facility] [id number] [address] Jun, Type 2 diabetes mellitus with diabetic autonomic (poly) neuropathy E11.43 and Type 2 diabetes mellitus with hyperglycemia E11.65 [facility] [address] [address] May, [facility] [address] [address]- [address] May, Bipolar disorder, current episode depressed, moderate F31.32 [facility] [address] [address] May, [facility] [address] [address]- [address] May, Diabetic polyneuropathy associated with diabetes mellitus due to underlying condition E08.42 [place] [address] 8[address]67- [address] Apr, [place] [address] 69195- 8979 Feb, Ganglion cyst of dorsum of right wrist M67.431 [place] [address] [address]29- 7364 Jan, Other cyst of bone, right forearm M85.631 [place] [address] 06785- 8437 Jan, [place] [address] 18503- 1270 Jan, Diabetes E11.9 and Right forearm pain M79.631 [place] [address] 84217- 4908 Dec, Encounter for immunization Z23 [place] [address] 36230- 0884 Nov, [place] [address] [address]70- 160[address] Nov, Type 2 diabetes mellitus with hyperglycemia E11.65 [place] [address] 94358- 8366 Nov, Severe pain of right shoulder M25.511 [facility] [address] [place] [id number] [place] [address] 43733- 1238 Oct, Diabetes E11.9 [facility] [address] [place] [id number] [place] [address] 15789- 0401 Oct, Diabetes E11.9 [facility] [address] [place] [id number] [place] [address] 20588- 5326 Oct, [facility] [address] [place] [id number] [place] [address] 14102- 1727 Oct, [facility] [address] [place] [id number] [place] [address] 34817- 1615 Oct, Rotator cuff syndrome of right shoulder M75.101 [place] [address] [place] [id number] [place] [address] 78689- 5108 Oct, Diabetes E11.9 [facility] [address] [place] [id number] [place] [address] 60269- 9009 Sep, Type 2 diabetes mellitus with hyperglycemia E11.65 ; Obstructive sleep apnea syndrome G47.33 and Constipation, unspecified constipation type K59.00 [facility] [address] [place] [id number] [place] [address] 53106- 4739 Aug, [facility] [address] [place] [id number] [place] [address] 09053- 7543 Aug, [facility] [address] [place] [id number] [place] [address] 84201- 9833 Aug, Type 2 diabetes mellitus with diabetic autonomic (poly) neuropathy E11.43 [facility] [address] [place] [id number] [place] [address] 05748- 6294 July, Type 2 diabetes mellitus with hyperglycemia E11.65 [facility] [address] [place] [id number] [place] [address] 39060- 2581 Jun, Slow transit constipation K59.01 [facility] [address] [place] [address] 40[address] May, [place] [address] [place] [id number] [place] [address] 42874- 0829 May, Diabetes E11.9 [place] [address] 60295- 9621 May, [facility] [place] [address] 34906 -1779 Apr, [place] [address] 88060- 2599 Apr, Gastroenteritis K52.9 [facility] [place] [address] 11325 -5004 Apr, Abdominal pain, unspecified location R10.9 ; Gastroenteritis K52.9 ; Type 2 diabetes mellitus with hyperglycemia E11.65 and technician terminal and repeater current use of insulin Z79.4 [place] [address] [place] [id number] [place] [address] 72512- 3937 Apr, [place] [address] 22117- 5812 Apr, [place] [address] [place] [id number] [place] [address] 35747- 4891 Apr, Diabetes E11.9 ; Gastroparesis K31.84 ; Generalized abdominal pain R10.84 ; Essential hypertension I10 ; Bronchitis J40 and Other fatigue R53.83 [facility] [address] [place] [id number] [place] [address] 03136 -5013 Mar, [facility] [place] [address] 47818 -1944 Mar, [facility] [place] [address] 86309 -7830 Mar, Laceration of scalp without foreign body, initial encounter S01.01XA ; Laceration of face, initial encounter S01.81XA and Encounter for immunization Z23 [place] [address] [place] [id number] [place] [address] 93043- 6358 Mar, Type 2 diabetes mellitus with diabetic autonomic (poly) neuropathy E11.43 [place] [address] [place] [id number] [place] [address] 77989- 8420 Feb, [place] [address] [place] [id number] [place] [address] 90556- 2040 Feb, Internal hemorrhoids K64.8 and Obstructive sleep apnea syndrome G47.33 [place] [address] [place] [id number] [place] [address] 24371- 4636 Feb, SI (sacroiliac) joint dysfunction M53.[address] 18738- 7378 Jan, [place] [address] 29672- 3544 Dec, Gastroparesis K31.84 [place] [address] 28502- 4110 Dec, [address] 97707- 6186 Dec, Right hip pain M25.551 ; Nose congested R09.81 and Encounter for immunization Z23 [place] [address] [place] [id number] [place] [address] 61218- 3548 Nov, Diabetes E11.9 ; Gastroparesis K31.84 ; Type 2 diabetes mellitus with diabetic autonomic (poly)neuropathy E11.43 and Obstructive sleep apnea syndrome G47.33 [place] [address] [place] [id number] [place] [address] 79185- 9196 Oct, [place] [address] 33769- 7072 Aug, [place] [address] [place] [id number] [place] [address] 74250- 8838 July, Gastro-esophageal reflux disease without esophagitis K21.9 [facility] [address] [place] [id number] [place] [address] 78308- 9531 July, [facility] [address] [place] [id number] [place] [address] 47037- 9695 July, Diabetes E11.9 [facility] [address] [place] [id number] [place] [address] 31267- 2896 July, Diabetes E11.9 ; Obstructive sleep apnea syndrome G47.33 and Neuropathy G62.9 [facility] [address] [place] [id number] [place] [address] 72571- 8547 July, Bipolar disorder, current episode depressed, moderate F31.32 ; BRITTANI (generalized anxiety disorder) F41.1 and Panic disorder with agoraphobia F40.01 [place] [address] [place] [id number] [place] [address] 33084- 8506 Jun, [facility] [address] [place] [id number] [place] [address] 52220- 0661 Jun, [facility] [address] [place] [id number] [place] [address] 40842- 7319 Jun, [facility] [address] [place] [id number] [place] [address] 31572- 1335 Jun, [facility] [address] [place] [id number] [place] [address] [id number] May, Encounter for dental examination and cleaning without abnormal findings Z01.20 [facility] [address] [place] [id number] [place] [address] 94604- 8544 Apr, [facility] [address] [place] [id number] [place] [address] 80278- 0556 Apr, [facility] [address] [place] [id number] [place] [address] 49500- 9846 Apr, Bipolar disorder, current episode depressed, moderate F31.32 ; BRITTANI (generalized anxiety disorder) F41.1 and Panic disorder with agoraphobia F40.01 [facility] [address] [place] [id number] [place] [address] 04476- 6057 04 Apr, 2015 Hyperlipidemia, unspecified E78.5 [facility] [address] [place] [id number] [place] [address] [id number] Apr, Dental caries K02.9 [facility] [address] [place] [id number] [place] [address] [id number] Feb, Dental caries K02.9 and Encounter for dental examination Z01.20 [place] [address] [place] [id number] [place] [address] 90168- 2881 Feb, [place] [address] 77064- 2064 15 Feb, 2015 Diabetes E11.9 ; Insulin long-term use Z79.4 ; Diabetic polyneuropathy associated with diabetes mellitus due to underlying condition E08.42 and Barretts esophagus with high grade dysplasia K22.711 [place] [id number] [place] [address] 77979- 5303 Feb, [place] [id number] [place] [address] 85093- 4647 Jan, Pain in right hip M25.551 and Other chronic pain G89.29 [place] [id number] [place] [address] 97143- 9268 Jan, Impingement syndrome, shoulder, left M75.42 [place] [id number] [place] [address] 30269- 8334 Jan, Bipolar disorder, current episode depressed, moderate F31.32 ; Generalized anxiety disorder F41.1 and Agoraphobia with panic disorder F40.[address] 45141- 6046 Jan, [place] [address] [place] [id number] [place] [address] 64288- 2075 Dec, [place] [address] 29014- 1104 Dec, [facility] [address] [address]- 1785 Dec, Right hip pain M25.551 and Left shoulder pain M25.512 [facility] [address] [place] [id number] [address]- 3068 Dec, Bipolar 1 disorder, depressed, moderate F31.32 ; BRITTANI ( generalized anxiety disorder) F41.1 and Panic disorder with agoraphobia F40.01 [facility] [address] [place] [id number] [place] [address] 32272- 3759 Dec, [facility] [address] [place] [id number] [place] [address] 30943- 5586 Dec, [facility] [address] [place] [id number] [place] [address] 78512- 0083 Nov, [facility] [address] [place] [id number] [place] [address] 40687- 2135 18 Nov, 2014 [facility] [address] [place] [id number] [place] [address] 00404- 4410 Nov, [facility] [address] [place] [id number] [place] [address] 02291- 9207 14 Nov, 2014 Diabetes 250.00 [facility] [address] [place] [id number] [place] [address] 63996- 5472 Oct, [facility] [address] [place] [address] 32691- 8487 Oct, [facility] [address] [place] [id number] [place] [address] 20002- 9239 Oct, [facility] [address] [place] [id number] [place] [address] 34225- 5555 Oct, [facility] [address] [address]- 4890 Oct, [facility] [address] [place] [id number] [place] [address] 99030- 7304 Oct, [facility] [address] [address]- 2374 Oct, Diabetes 250.00 ; Insomnia 780.52 and Forgetfulness 780.99 [facility] [address] [address]- 7601 Oct, Depressive disorder, not elsewhere classified 311 [facility] [address] [place] [id number] [place] [address] 33855- 7971 Sep, [facility] [address] [place] [id number] [address]- 1848 Sep, [facility] [address] [place] [id number] [place] [address] 90311- 1125 Sep, [facility] [address] [place] [id number] [address]- 8418 Sep, [facility] [address] [place] [id number] [place] [address] 45384- 5990 Sep, [facility] [address] [address]- 0496 Sep, [facility] [address] [place] [id number] [place] [address] 685785- 2722 Sep, [facility] [address] [address]- 3061 Aug, [facility] [address] [id number] Aug, Dental examination V72.2 [facility] [address] [address]- 1847 Aug, [facility] [address] [place] [id number] [address]- 4986 Aug, [facility] [address] [address]- 4955 July, [facility] [address] [place] [id number] [place] [address] 08756- 6756 July, [facility] [address] [id number] [place] [address]- 8167 July, [facility] [place] [facility] [address] [id number] [place] [address]- 7693 July, [facility] [place] [facility] [address] [facility] [id number] [place] [address]- 6634 Jun, [facility] [place] [facility] [address] [id number] [place] [address]- 2370 Jun, [facility] [place] [facility] [address] [id number] [place] [address]- 2881 May, [facility] [place] [facility] [address] [id number] [place] [address]- 1200 May, [facility] [place] [facility] [address] [facility] [id number] [place] [address]- 7933 May, [facility] [place] [facility] [address] [facility] [id number] [place] [address]- 0350 May, [facility] [place] [facility] [address] [facility] [id number] [place] [address]- 5847 May, [facility] [place] [facility] [address] [facility] [id number] [place] [address]- 5839 May, [facility] [place] [facility] [address] [id number] [place] [address]- 9511 16 May, 2014 [facility] [place] [facility] [address] [facility] [id number] [address]- 5046 May, [facility] [place] [facility] [address] [id number] [place] [address]- 8055 Apr, [facility] [place] [facility] [address] [id number] [place] [address]- 9837 Apr, [facility] [place] [facility] [address] [facility] [id number] [place] [address]- 6740 Apr, [facility] [place] [facility] [address] [id number] [place] [address]- 8364 Apr, [facility] [place] [facility] [address] [id number] [place] [address]- 5116 Apr, [facility] [place] [facility] [address] [id number] [place] [address]- 8991 Apr, [facility] [place] [facility] [address] [id number] [place] [address]- 3914 Mar, [facility] [place] [facility] [address] [id number] [place] [address]- 0280 Mar, [facility] [place] [facility] [address] [id number] [place] [address]- 8241 Mar, [facility] [place] [facility] [address] [id number] [place] [address]- 7749 Mar, [facility] [place] [facility] [address] [id number] [place] [address]- 5794 Mar, [facility] [place] [facility] [address] [id number] [place] [address]- 0386 Mar, [facility] [place] [facility] [address] [id number] [place] [address]- 1649 Mar, [facility] [place] [facility] [address] [id number] [place] [address]- 7845 Mar, [facility] [place] [facility] [address] [id number] [place] [address]- 2630 Mar, [facility] [place] [facility] [address] [id number] [place] [address]- 7827 Mar, [facility] [place] [facility] [address] [id number] [place] [address]- 6627 Mar, [facility] [place] [facility] [address] [id number] [place] [address]- 8291 Mar, [facility] [place] [facility] [address] [id number] [place] [address]- 3221 Mar, [facility] [place] [facility] [address] [id number] [place] [address]- 0682 Mar, [facility] [place] [facility] [address] [id number] [place]- 9494 Feb, [facility] [place] [facility] [address] [id number] [place] [address]- 4126 Feb, [facility] [place] [facility] [address] [id number] [place] [address]- 3594 Feb, [facility] [place] [facility] [address] [id number] [place] [address]- 5928 Feb, [facility] [place] [facility] [address] [id number] [place] [address]- 1600 Feb, [facility] [place] [facility] [address] [id number] [place] [address]- 6518 Feb, [facility] [place] [facility] [address] [id number] [place] [address]- 0860 16 Feb, 2014 [facility] [place] [facility] [address] [id number] [place] [address]- 6159 Feb, [facility] [place] [facility] [address] [id number] [place] [address]- 0453 16 Feb, 2014 [facility] [place] [facility] [address] [id number] [place] [address]- 3204 16 Feb, 2014 [facility] [place] [facility] [address] [id number] [place] [address]- 6652 10 Feb, 2014 [facility] [place] [facility] [address] [id number] [place] [address]- 0840 Feb, [facility] [place] [facility] [address] [id number] [place] 1681 Feb, [facility] [place] [facility] [address] [id number] [place] 3050 Feb, [facility] [place] [facility] [address] [id number] [place] [address]- 4127 Jan, [facility] [place] [facility] [address] [id number] [place] [address]- 8577 Jan, [facility] [place] [facility] [address] [id number] [place] [address] 2544 Jan, [facility] [place] [facility] [address] [id number] [place] [address]- 9227 Jan, [facility] [place] [facility] [address] [id number] [place] [address]- 2756 Dec, [facility] [place] [facility] [address] [id number] [place] [address]- 9212 Dec, [facility] [place] [facility] [address] [id number] [place] 3690 Dec, [facility] [place] [facility] [address] [id number] [place] [address]- 8589 Dec, [facility] [place] [facility] [address] [id number] [place] [address]- 3423 Dec, [facility] [place] [facility] [address] [id number] [place] [address]- 3396 Dec, [facility] [place] [facility] [address] [id number] [place] [address]- 1114 Dec, [facility] [place] [facility] [address] [id number] [place] [address]- 1555 Dec, [facility] [place] [facility] [address] [id number] [place] [address]- 9963 30 Nov, 2013 [facility] [place] [facility] [address] [id number] [place] [address]- 7019 17 Nov, 2013 [facility] [place] [facility] [address] [id number] [place] [address] 2547 17 Nov, 2013 [facility] [place] [facility] [address] [id number] [place] [address]- 9996 Nov, [facility] [place] [facility] [address] [id number] [place] [address]- 0763 Nov, [facility] [place] [facility] [address] [id number] [place] [address]- 4700 Oct, [facility] [place] [facility] [address] [id number] [place] [address]- 4782 Oct, [facility] [place] [facility] [address] [id number] [place] [address]- 0027 Sep, [facility] [place] [facility] [address] [id number] [place] [address]- 9751 Sep, [facility] [place] [facility] [address] [id number] [place] [address]- 5800 Sep, [facility] [place] [facility] [address] [id number] [place] [address]- 1828 Sep, [facility] [place] [facility] [address] [id number] [place] [address]- 1777 Sep, [facility] [place] [facility] [address] [id number] [place] [address] Sep, [facility] [place] [facility] [address] [id number] [place] [address] Sep, [facility] [place] [facility] [address] [id number] [place] [address] Sep, [facility] [place] [facility] [address] [id number] [place] [address] Sep, [facility] [place] [facility] [address] [id number] [place] [address] Sep, [facility] [place] [facility] [address] [id number] [place] [address] Sep, [facility] [place] [facility] [address] [id number] [place] [address] Sep, [facility] [place] [facility] [address] [id number] [place] [address] Sep, [facility] [place] [facility] [address] [id number] [place] [address] Sep, [facility] [place] [facility] [address] [id number] [place] [address] July, [facility] [place] [facility] [address] [id number] [place] [address] July, [facility] [place] [facility] [address] [id number] [place] [address] July, [facility] [place] [facility] [address] [id number] [place] [address] July, [facility] [place] [facility] [address] [id number] [place] [address] July, [facility] [place] [facility] [address] [id number] [place] [address] July, [facility] [place] [facility] [address] [id number] [place] [address] July, [facility] [place] [facility] [address] [id number] [place] [address] July, [facility] [place] [facility] [address] [id number] [place] [address] Jun, [facility] [place] [facility] [address] [id number] [place] [address] Jun, [facility] [place] [facility] [address] [id number] [place] [address] Jun, [facility] [place] [facility] [address] [id number] [place] [address] Jun, [facility] [place] [facility] [address] [id number] [place] [address] Jun, [facility] [place] [facility] [address] [id number] [place] [address] Jun, [facility] [place] [facility] [address] [id number] [place] [address] Jun, [facility] [place] [facility] [address] [id number] [place] [address] Jun, [facility] [place] [facility] [address] [id number] [place] [address] 27 May, 2013 [facility] [place] [facility] [address] [id number] [place] [address] 27 May, 2013 [facility] [place] [facility] [address] [id number] [place] [address] 21 May, 2013 [facility] [place] [facility] [address] [id number] [place] [address] 21 May, 2013 [facility] [place] [facility] [address] [id number] [place] [address] 20 May, 2013 [facility] [place] [facility] [address] [id number] [place] [address] 20 May, 2013 [facility] [place] [facility] [address] [id number] [place] [address] 19 May, 2013 [facility] [place] [facility] [address] [id number] [place] [address] 19 May, 2013 [facility] [place] [facility] [address] [id number] [place] [address] 17 May, 2013 [facility] [place] [facility] [address] [id number] [place] [address] 17 May, 2013 [facility] [place] [facility] [address] [id number] [place] [address] 17 May, 2013 [facility] [place] [facility] [address] [id number] [place] [address] 17 May, 2013 [facility] [place] [facility] [address] [id number] [place] [address] 12 May, 2013 [facility] [place] [facility] [address] [id number] [place] [address] May, [facility] [place] [facility] [address] [id number] [place] [address] 56[address] May, [facility] [place] [facility] [address] [id number] [place] [address] 1482 May, [facility] [place] [facility] [address] [id number] [place] [address] Apr, [facility] [place] [facility] [address] [id number] [place] [address] 6[address] Apr, [facility] [place] [facility] [address] [id number] [place] [address] Mar, [facility] [place] [facility] [address] [id number] [place] [address] 0904 Mar, [facility] [place] [facility] [address] [id number] [place] [address] 3217 Mar, [facility] [place] [facility] [address] [id number] [place] [address] 58[address] Mar, [facility] [place] [facility] [address] [id number] [place] [address] 7[address] Mar, [facility] [place] [facility] [address] [id number] [place] [address] 7563 Mar, [facility] [place] [facility] [address] [id number] [place] [address] Feb, [facility] [place] [facility] [address] [id number] [place] [address] 5340 Feb, [facility] [place] [facility] [address] [id number] [place] [address] Feb, [facility] [place] [facility] [address] [id number] [place] [address] Feb, [facility] [place] [facility] [address] [id number] [place] [address] Feb, [facility] [place] [facility] [address] [id number] [place] [address] 2547 Feb, [facility] [address] [id number] [place] [address] 5656 Jan, [facility] [place] [facility] [address] [id number] [place] [address] 2879 Jan, [facility] [address] [id number] [place] [address] 288[address] Jan, [facility] [place] [facility] [address] [id number] [place] [address] 7044 Jan, [facility] [address] [id number] [place] [address] 7249 Jan, [facility] [place] [facility] [address] [id number] [place] [address] 7006 Jan, [facility] [place] [facility] [address] [id number] [place] [address] 6477 Jan, [facility] [address] [id number] [place] [address] 6068 Dec, [facility] [place] [facility] [address] [id number] [place] [address] 6146 Dec, [facility] [address] [id number] [place] [address] 7[address] Dec, [facility] [place] [facility] [address] [id number] [place] [address] 3965 Nov, [facility] [place] [facility] [address] [id number] [place] [address] 9957 Oct, [facility] [place] [facility] [address] [id number] [place] [address] 3924 Sep, [facility] [place] [facility] [address] [id number] [place] [address] 2549 Sep, [facility] [place] [facility] [address] [id number] [place] [address] 0587 Sep, [facility] [address] [id number] [place] [address] 1670 Sep, [facility] [place] [facility] [address] [id number] [place] [address] 5599 Sep, [facility] [place] [facility] [address] [id number] [place] [address] 8761 Sep, [facility] [place] [facility] [address] [id number] [place] [address] 2840 Aug, [facility] [address] [id number] [place] [address] 6352 Aug, [facility] [place] [facility] [address] [id number] [place] [address] 8491 July, [facility] [place] [facility] [address] [id number] [place] [address] 4657 July, [facility] [place] [facility] [address] [id number] [place] [address] 7136 July, [facility] [place] [facility] [address] [id number] [place] [address] 7439 July, [facility] [place] [facility] [address] [id number] [place] [address] 8770 Jun, [facility] [place] [facility] [address] [id number] [place] [address]- 6590 May, [facility] [place] [facility] [address] [id number] [place] [address] 3[address] May, [facility] [place] [facility] [address] [id number] [place] [address] 9513 May, [facility] [place] [facility] [address] [id number] [place] [address] 5496 Mar, [facility] [place] [facility] [address] [id number] [place] [address] 1708 Mar, [facility] [place] [facility] [address] [id number] [place] [address] 2018 Mar, [facility] [place] [facility] [address] [id number] [place] [address] 6004 Feb, [facility] [place] [facility] [address] [id number] [place] [address]- 9296 Feb, [facility] [place] [facility] [address] [id number] [place] [address]- 9666 Feb, [facility] [place] [facility] [address] [id number] [place] [address]- 6809 Feb, [facility] [place] [facility] [address] [id number] [place] [address] 5376 Feb, [facility] [place] [facility] [address] [id number] [place] [address] 8999 Feb, [facility] [id number] [place] [address] 9692 Feb, [facility] [place] [facility] [address] [id number] [place] [address]- 4419 Feb, [facility] [place] [facility] [address] [id number] [place] [address]- 4562 Feb, [facility] [place] [facility] [address] [facility] [id number] [place] [address]- 0717 Feb, [facility] [place] [facility] [address] [id number] [place] [address]- 7991 Jan, [facility] [place] [facility] [address] [id number] [place] [address]- 9213 Jan, [facility] [place] [facility] [address] [id number] [place] [address]- 8120 Jan, [facility] [place] [facility] [address] [id number] [place] [address]- 3586 Jan, [facility] [place] [facility] [address] [id number] [place] [address]- 49[address] Jan, [facility] [place] [facility] [address] [id number] [place] [address]- 3593 Jan, [facility] [place] [facility] [address] [id number] [place] [address]- 4739 Jan, [facility] [place] [facility] [address] [id number] [place] [address]- 2466 Jan, [facility] [place] [facility] [address] [id number] [place] [address]- 0606 Jan, [facility] [place] [facility] [address] [id number] [place] [address]- 5948 Jan, [facility] [place] [facility] [address] [id number] [place] [address]- 8205 Dec, [facility] [place] [facility] [address] [id number] [place] [address]- 3886 Dec, [facility] [place] [facility] [address] [id number] [place] [address]- 3904 Nov, [facility] [place] [facility] [address] [id number] [place] [address]- 6143 24 Nov, 2011 [facility] [place] [facility] [address] [id number] [place] [address]- 6947 05 Nov, 2011 [facility] [place] [facility] [address] [id number] [place] [address]- 0874 Oct, [facility] [place] [facility] [address] [id number] [place] [address]- 3846 Oct, [facility] [place] [facility] [address] [id number] [place] [address]- 3993 Oct, [facility] [place] [facility] [address] [id number] [place] [address] Oct, [facility] [place] [facility] [address] [id number] [place] [address]- 1556 Aug, [facility] [place] [facility] [address] [id number] [place] [address]- 0235 15 Aug, 2011 [facility] [place] [facility] [address] [id number] [place] [address]- 4086 14 Aug, 2011 [facility] [place] [facility] [address] [id number] [place] [address]- 7320 07 Aug, 2011 [facility] [place] [facility] [address] [id number] [place] [address]- 4396 08 Jun, 2011 [facility] [place] [facility] [address] [id number] [place] [address]- 4997 May, [facility] [place] [facility] [address] [id number] [place] [address]- 5312 May, [facility] [place] [facility] [address] [id number] [place] [address]- 9562 20 Apr, 2011 [facility] [place] [facility] [address] [id number] [place] [address]- 5202 20 Apr, 2011 [facility] [place] [facility] [address] [id number] [place] [address]- 8087 15 Apr, 2011 [facility] [place] [facility] [address] [id number] [place] [address]- 2115 14 Apr, 2011 [facility] [place] [facility] [address] [id number] [place] [address]- 8244 24 Mar, 2011 [facility] [place] [facility] [address] [id number] [place] [address]- 8327 Mar, [facility] [place] [facility] [address] [id number] [place] [address]- 7236 19 Mar, 2011 [facility] [place] [facility] [address] [id number] [place] [address]- 3181 18 Mar, 2011 [facility] [place] [facility] [address] [id number] [place] [address]- 9597 13 Mar, 2011 [facility] [place] [facility] [address] [id number] [place] [address]- 9172 13 Mar, 2011 [facility] [place] [facility] [address] [id number] [place] [address]- 2965 Feb, [facility] [address] [id number] [place] [address]- 7315 Jan, [facility] [place] [facility] [address] [id number] [place] [address]- 9776 Jan, [facility] [address] [id number] [place] [address]- 0516 Jan, [facility] [place] [facility] [address] [id number] [place] [address]- 0669 Jan, [facility] [address] [id number] [place] [address]- 8730 Jan, [facility] [place] [facility] [address] [id number] [place] [address]- 6887 Dec, [facility] [address] [id number] [place] [address]- 5900 May, [facility] [address] [id number] [place] [address]- 3453 14 Apr, 2010 [facility] [place] [facility] [address] [id number] [place] [address]- 5126 Mar, [facility] [address] [id number] [place] [address]- 6474 Feb, [facility] [place] [facility] [address] [id number] [place] [address]- 2545 Feb, [facility] [place] [facility] [address] [id number] [place] [address]- 2546 14 Feb, 2010 [facility] [place] [facility] [address] [id number] [place] [address]- 9216 13 Feb, 2010 [facility] [place] [facility] [address] [id number] [place] [address]- 2546 11 Dec, 2009 [facility] [place] [facility] [address] [id number] [place] [address]- 9901 Dec, IMMUNIZATIONS No Known Immunizations SOCIAL HISTORY Never Assessed REASON FOR VISIT MRI results/LVM PLAN OF CARE VITAL SIGNS MEDICATIONS Unknown [...]
--- OUTSIDE RECORDS SUMMARY | 2017-12-04 10:05 | XMS REPORT ---
Author Author JYOTSNA EMERY Organization [facility] Address [address] [place] [address] Care Team Providers Care Melting Supervisor Name Role Phone JYOTSNA EMERY Unavailable PROBLEMS Type Condition ICD9-CM Code BGL07-AC Code Onset Dates Condition Status SNOMED Code Problem Obstructive sleep apnea syndrome G47.33 Active 48564120 Problem Essential hypertension I10 Active 74705313 Problem Diabetes E11.9 Active 681892920 Problem Rotator cuff syndrome of right shoulder M75.101 Active 823931225536050 Problem Constipation, unspecified constipation type K59.00 Active 74453983 Problem penitentiary current use of insulin Z79.4 Active 303970913 Problem Type 2 diabetes mellitus with hyperglycemia E11.65 Active 56425423 Problem Irritable bowel syndrome, unspecified type K58.9 Active 14950031 Problem Slow transit constipation K59.01 Active 39109062 Problem Gastroparesis K31.84 Active 165166707 Problem Barretts esophagus without dysplasia K22.70 Active 059223517 Problem BRITTANI (generalized anxiety disorder) F41.1 Active 69708961 Problem Bipolar disorder, current episode depressed, moderate F31.32 Active 300859634 Problem 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
--- OUTSIDE RECORDS SUMMARY | 2017-12-04 10:05 | XMS REPORT ---
Author Author JYOTSNA EMERY [facility] e[employer] Address Unknown Phone Unavailable Care Team Providers Care Chronic Manager Name Role Phone JYOTSNA EMERY CP Unavailable [...] Coronary atherosclerosis of unspecified type of vessel, [place] or graft 414.00 Active Assessment Hyperlipidemia, unspecified E78.5 Active Problem Unspecified backache 724.5 Active Medications No Known Medications Procedures Procedure Coding System Code Date HEPATIC FUNCTION PANEL CPT-4 20341 Apr 17, 2015 VENIPUNCT, ROUTINE* CPT-4 75737 Apr 17, 2015 LIPID PANEL CPT-4 97539 Apr 17, 2015 Results Name Result Date Reference Range Unit Abnormality Flag ROUTINE VENIPUNCTURE Summary Purpose eClinicalWorks Submission
--- OUTSIDE RECORDS SUMMARY | 2017-12-04 10:06 | XMS REPORT ---
Author Author JYOTSNA EMERY Organization [facility] [place] Address [address] [place] [address] Care Team Providers Care Electrolysis Engineer Name Role Phone JYOTSNA EMERY Unavailable PROBLEMS Type Condition ICD9-CM Code SEG03-JM Code Onset Dates Condition Status SNOMED Code Problem Diabetes E11.9 Active 869953356 Problem Type 2 diabetes mellitus with hyperglycemia E11.65 Active 22072509 Problem Essential hypertension I10 Active 60560645 Problem Diabetic polyneuropathy associated with diabetes mellitus due to underlying condition E08.42 Active 49694691 Problem Rotator cuff syndrome of right shoulder M75.101 Active 791856199910422 Problem Slow transit constipation K59.01 Active 52524694 Problem penitentiary current use of insulin Z79.4 Active 273998195 Problem Constipation, unspecified constipation type K59.00 Active 19003544 Problem Irritable bowel syndrome, unspecified type K58.9 Active 69800508 Problem Barretts esophagus without dysplasia K22.70 Active 016875262 Problem 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 01 Nov, 2014 Active 1903792 Problem Gastroparesis K31.84 Active 029643424 Problem Bipolar disorder, current episode depressed, moderate F31.32 Active 255281272 Problem Gastro-esophageal reflux disease without esophagitis K21.9 Active 944158207 Problem Panic disorder with agoraphobia F40.01 Active 95509804 Problem Type 2 diabetes mellitus with diabetic autonomic (poly)neuropathy E11.43 Active 654783468 Problem BRITTANI (generalized anxiety disorder) F41.1 Active 37470246 Problem Obstructive sleep apnea syndrome G47.33 Active 12072863 ALLERGIES No Information ENCOUNTERS Encounter Location Date Diagnosis [facility] [place] [address] [facility] [id number] [address] Jun, [facility] [place] [address] [facility] [id number] [address] May, [facility] [place] [id number] [place] [address] 85004- 9608 May, Bipolar disorder, current episode depressed, moderate F31.32 [facility] [id number] [place] [address] 12355 -2044 May, [facility] [place] [id number] [place] [address] 61101- 6485 May, Diabetic polyneuropathy associated with diabetes mellitus due to underlying condition E08.42 [place] [address] [address]100- 1630 Apr, [place] [address] 43210- 6700 Feb, Ganglion cyst of dorsum of right wrist M67.431 [place] [address] 95351- 5872 Jan, Other cyst of bone, right forearm M85.631 [place] [address] 04820- 2136 Jan, [place] [address] 83809- 5282 Jan, Diabetes E11.9 and Right forearm pain M79.631 [place] [address] 67026- 0397 Dec, Encounter for immunization Z23 [place] [address] 87867- 9488 Nov, [place] [address] 68570- 2505 19 Nov, 2016 Type 2 diabetes mellitus with hyperglycemia E11.65 [place] [id number] [place] [address] 10286- 3746 15 Nov, 2016 Severe pain of right shoulder M25.511 [place] [address] 88752- 8153 Oct, Diabetes E11.9 [facility] [place] [address] [address] 5613 Oct, Diabetes E11.9 [facility] [place] [id number] [place] [address] 93963- 3261 Oct, [facility] [place] [id number] [place] [address] 69888- 3123 Oct, [facility] [place] [id number] [place] [address] 83731- 5789 Oct, Rotator cuff syndrome of right shoulder M75.101 [facility] [place] [id number] [place] [address] 13211- 7627 Oct, Diabetes E11.9 [facility] [place] [id number] [place] [address] 52285- 2347 Sep, Type 2 diabetes mellitus with hyperglycemia E11.65 ; Obstructive sleep apnea syndrome G47.33 and Constipation, unspecified constipation type K59.00 [facility] [place] [id number] [place] [address] 35870- 5849 Aug, [facility] [place] [id number] [place] [address] 02690- 6681 Aug, [facility] [place] [id number] [place] [address] 21825- 5816 Aug, Type 2 diabetes mellitus with diabetic autonomic (poly) neuropathy E11.43 [facility] [place] [id number] [place] [address] 67232- 3198 July, Type 2 diabetes mellitus with hyperglycemia E11.65 [facility] [place] [id number] [place] [address] 34021- 9412 Jun, Slow transit constipation K59.01 [facility] [place] [id number] [place] [address] 66961- 6849 May, [facility] [place] [id number] [place] [address] 19492- 5569 May, Diabetes E11.9 [facility] [place] [address] [address] 8528 May, [facility] [place] [id number] [place] [address] 56572 -9230 Apr, [place] [id number] [place] [address] 12115- 8975 Apr, Gastroenteritis K52.9 [facility] [place] [id number] [place] [address] 74524 -6492 Apr, Abdominal pain, unspecified location R10.9 ; Gastroenteritis K52.9 ; Type 2 diabetes mellitus with hyperglycemia E11.65 and 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 [place] [id number] [place] [address] 43117- 6533 Apr, [place] [address] 46805- 4373 Apr, [place] [id number] [place] [address] 52981- 5108 Apr, Diabetes E11.9 ; Gastroparesis K31.84 ; Generalized abdominal pain R10.84 ; Essential hypertension I10 ; Bronchitis J40 and Other fatigue R53.83 [facility] [place] [id number] [place] [address] 07402 -6468 Mar, [facility] [place] [id number] [place] [address] 16622 -2206 Mar, [facility] [place] [id number] [place] [address] 32504 -9189 Mar, Laceration of scalp without foreign body, initial encounter S01.01XA ; Laceration of face, initial encounter S01.81XA and Encounter for immunization Z23 [place] [id number] [place] [address] 80326- 2470 Mar, Type 2 diabetes mellitus with diabetic autonomic (poly) neuropathy E11.43 [place] [id number] [place] [address] 44965- 0793 Feb, [place] [address] 82273- 2705 Feb, Internal hemorrhoids K64.8 and Obstructive sleep apnea syndrome G47.[address] 57981- 2795 Feb, SI (sacroiliac) joint dysfunction M53.3 [place] [address] 77604- 3626 Jan, [address] 19751- 4227 Dec, Gastroparesis K31.[address] 51221- 6618 Dec, [address] 08148- 7982 Dec, Right hip pain M25.551 ; Nose congested R09.81 and Encounter for immunization Z23 [place] [id number] [place] [address] 45882- 9400 Nov, Diabetes E11.9 ; Gastroparesis K31.84 ; Type 2 diabetes mellitus with diabetic autonomic (poly)neuropathy E11.43 and Obstructive sleep apnea syndrome G47.33 [place] [id number] [place] [address] 68298- 1684 Oct, [place] [id number] [place] [address] 41088- 1014 Aug, [address] 23236- 2811 July, Gastro-esophageal reflux disease without esophagitis K21.9 [place] [id number] [place] [address] 05526- 0861 July, [place] [id number] [place] [address] 54715- 1113 July, Diabetes E11.9 [place] [id number] [place] [address] 99892- 2904 July, Diabetes E11.9 ; Obstructive sleep apnea syndrome G47.33 and Neuropathy G62.9 [place] [id number] [place] [address] 87638- 0260 July, Bipolar disorder, current episode depressed, moderate F31.32 ; BRITTANI (generalized anxiety disorder) F41.1 and Panic disorder with agoraphobia F40.01 [place] [id number] [place] [address] 19976- 0311 Jun, [place] [id number] [place] [address] 14059- 4837 Jun, [place] [id number] [place] [address] 96113- 1187 Jun, [place] [id number] [place] [address] 96246- 0468 Jun, [facility] [id number] [place] [address] [id number] May, Encounter for dental examination and cleaning without abnormal findings Z01.20 [place] [address] [place] [address] 72770- 1965 Apr, [place] [id number] [place] [address] 14945- 3624 Apr, [place] [id number] [place] [address] 56396- 4059 Apr, Bipolar disorder, current episode depressed, moderate F31.32 ; BRITTANI (generalized anxiety disorder) F41.1 and Panic disorder with agoraphobia F40.01 [facility] [place] [address] [place] [address] 96145- 5947 Apr, Hyperlipidemia, unspecified E78.5 [facility] [address] [place] [address] [id number] Apr, Dental caries K02.9 [facility] [address] [id number] [place] [address] [id number] Feb, Dental caries K02.9 and Encounter for dental examination Z01.20 [place] [id number] [place] [address] 42777- 4977 Feb, [place] [address] 54475- 6838 Feb, Diabetes E11.9 ; Insulin long-term use Z79.4 ; Diabetic polyneuropathy associated with diabetes mellitus due to underlying condition E08.42 and Barretts esophagus with high grade dysplasia K22.711 [place] [id number] [place] [address] 93685- 5168 14 Feb, [address] 39696- 8490 Jan, Pain in right hip M25.551 and Other chronic pain G89.29 [place] [id number] [place] [address] 04785- 3022 Jan, Impingement syndrome, shoulder, left M75.42 [place] [id number] [place] [address] 53295- 4765 Jan, Bipolar disorder, current episode depressed, moderate F31.32 ; Generalized anxiety disorder F41.1 and Agoraphobia with panic disorder F40.01 [place] [id number] [place] [address] 85836- 2846 Jan, [place] [address] 10436- 7037 Dec, [place] [id number] [place] [address] 48931- 1519 Dec, [place] [id number] [place] [address] 68517- 9140 08 Oct, 2015 Right hip pain M25.551 and Left shoulder pain M25.512 [facility] [place] [id number] [address]- 5521 Dec, Bipolar 1 disorder, depressed, moderate F31.32 ; BRITTANI ( generalized anxiety disorder) F41.1 and Panic disorder with agoraphobia F40.01 [facility] [place] [id number] [address]- 5667 Dec, [facility] [place] [id number] [place] [address] 59821- 9985 Dec, [facility] [place] [id number] [place] [address] 57292- 6869 Nov, [facility] [place] [id number] [place] [address] 90549- 0348 18 Nov, 2014 [facility] [place] [id number] [place] [address] 84286- 1648 Nov, [facility] [place] [id number] [place] [address] 86110- 9476 Nov, Diabetes 250.00 [facility] [place] [id number] [place] [address] 08280- 7191 Oct, [facility] [place] [id number] [address]- 7788 Oct, [facility] [place] [id number] [place] [address] 45685- 0467 Oct, [facility] [place] [id number] [address]- 7240 Oct, [facility] [place] [id number] [place] [address] 52894- 4117 Oct, [facility] [place] [address] [address]- 8979 Oct, [facility] [place] [address] [place] [address] 54656- 3834 Oct, Diabetes 250.00 ; Insomnia 780.52 and Forgetfulness 780.99 [facility] [place] [address] [address]- 9037 Oct, Depressive disorder, not elsewhere classified 311 [facility] [place] [address] [facility] [id number] [address]- 9971 Sep, [facility] [place] [address] [place] [id number] [address]- 6335 Sep, [facility] [place] [id number] [address]- 3718 Sep, [facility] [place] [id number] [place] [address] 31895- 2484 Sep, [facility] [place] [address] [address]- 8548 Sep, [facility] [place] [id number] [address]- 2975 Sep, [facility] [place] [address] [address]- 8852 Sep, [facility] [place] [address] [address]- 2985 Aug, [facility] [address] [id number] Aug, Dental examination V72.2 [facility] [place] [address] [address]- 7049 Aug, [facility] [place] [id number] [address]- 7877 Aug, [facility] [place] [address] 3784 July, [facility] [place] [address]- 5200 July, [facility] [place] [address] 4286 July, [facility] [place] [facility] [address] [id number] [place] [address]- 0921 July, [facility] [place] [facility] [address] [id number] [place] [address]- 2236 14 Jun, 2014 [facility] [place] [facility] [address] [id number] [place] [address]- 2432 Jun, [facility] [place] [facility] [address] [id number] [place] [address]- 4856 May, [facility] [place] [facility] [address] [id number] [place] [address]- 5388 23 May, 2014 [facility] [place] [facility] [address] [id number] [place] [address]- 8447 May, [facility] [place] [facility] [address] [id number] [place] [address]- 2693 May, [facility] [place] [facility] [address] [id number] [place] [address]- 4284 May, [facility] [place] [facility] [address] [id number] [place] [address]- 3570 May, [facility] [place] [facility] [address] [id number] [place] [address]- 4862 16 May, 2014 [facility] [place] [facility] [address] [id number] [place] [address]- 8878 May, [facility] [place] [facility] [address] [id number] [place] [address]- 4289 Apr, [facility] [place] [facility] [address] [id number] [place] [address]- 8299 Apr, [facility] [place] [facility] [address] [id number] [place] [address]- 1043 Apr, [facility] [place] [facility] [address] [id number] [place] [address]- 8251 Apr, [facility] [place] [facility] [address] [id number] [place] [address]- 2984 Apr, [facility] [address] [id number] [place] [address]- 9801 Apr, [facility] [place] [facility] [address] [id number] [place] [address]- 1706 Mar, [facility] [address] [id number] [place] [address]- 3191 Mar, [facility] [place] [facility] [address] [id number] [place] [address]- 7482 Mar, [facility] [address] [id number] [place] [address]- 0860 Mar, [facility] [place] [facility] [address] [id number] [place] [address]- 3952 Mar, [facility] [place] [facility] [address] [id number] [place] [address]- 4236 Mar, [facility] [address] [id number] [place] [address]- 3026 Mar, [facility] [place] [facility] [address] [id number] [place] [address]- 6685 Mar[facility] [address] [id number] [place] [address]- 1915 Mar, [facility] [place] [facility] [address] [id number] [place] [address]- 4952 Mar, [facility] [place] [facility] [address] [id number] [place] [address]- 2477 Mar, [facility] [place] [facility] [address] [id number] [place] [address]- 1279 Mar, [facility] [place] [facility] [address] [id number] [place] [address]- 9579 Mar, [facility] [place] [facility] [address] [id number] [place] [address]- 7494 Mar, [facility] [place] [facility] [address] [id number] [place] [address]- 0404 Feb, [facility] [place] [facility] [address] [id number] [place] [address]- 7466 Feb, [facility] [place] [facility] [address] [id number] [place] 5429 Feb, [facility] [place] [facility] [address] [id number] [place] [address]- 2533 Feb, [facility] [place] [facility] [address] [id number] [place] [address]- 1839 Feb, [facility] [place] [facility] [address] [id number] [place] [address]- 8452 Feb, [facility] [place] [facility] [address] [id number] [place] [address]- 8757 Feb, [facility] [place] [facility] [address] [id number] [place] [address]- 4179 Feb, [facility] [place] [facility] [address] [id number] [place] [address]- 8518 Feb, [facility] [place] [facility] [address] [id number] [place] [address]- 7004 Feb, [facility] [place] [facility] [address] [id number] [place] [address]- 5017 Feb, [facility] [place] [facility] [address] [id number] [place] [address]- 0512 Feb, [facility] [place] [facility] [address] [id number] [place] 1203 Feb, [facility] [place] [facility] [address] [id number] [place] 5357 Feb, [facility] [place] [facility] [address] [id number] [place] [address]- 3839 Jan, [facility] [place] [facility] [address] [id number] [address]- 8300 Jan, [facility] [place] [facility] [address] [id number] [place] [address]- 9030 Jan, [facility] [place] [facility] [address] [id number] [place] 7346 Jan, [facility] [place] [facility] [address] [id number] [place] [address]- 2644 Dec, [facility] [place] [facility] [address] [id number] [place] [address]- 0030 Dec, [facility] [place] [facility] [address] [id number] [place] [address]- 9367 Dec, [facility] [place] [facility] [address] [id number] [place] [address]- 1477 Dec, [facility] [place] [facility] [address] [facility] [id number] [place] [address]- 1421 Dec, [facility] [place] [facility] [address] [facility] [id number] [place] [address]- 9990 Dec, [facility] [place] [facility] [address] [facility] [id number] [place] [address]- 8544 Dec, [facility] [place] [facility] [address] [facility] [id number] [place] [address]- 8282 Dec, [facility] [place] [facility] [address] [id number] [address]- 4326 30 Nov, 2013 [facility] [place] [facility] [address] [id number] [address]- 8964 17 Nov, 2013 [facility] [place] [facility] [address] [id number] [place] [address] 17 Nov, 2013 [facility] [place] [facility] [address] [facility] [id number] [place] [address] Nov, 2013 [facility] [place] [facility] [address] [facility] [id number] [place] [address] 09 Nov, 2013 [facility] [place] [facility] [address] [id number] [place] [address] Oct, [facility] [place] [facility] [address] [id number] [facility] [place] [address] Oct, [facility] [place] [facility] [address] [id number] [place] [address] Sep, [facility] [place] [facility] [address] [id number] [place] [address] Sep, [facility] [place] [facility] [address] [id number] [place] [address] Sep, [facility] [place] [facility] [address] [id number] [place] [address] Sep, [facility] [place] [facility] [address] [id number] [place] [address] Sep, [facility] [place] [facility] [address] [id number] [place] [address] Sep, [facility] [place] [facility] [address] [id number] [place] [address] Sep, [facility] [place] [facility] [address] [id number] [place] [address] Sep, [facility] [place] [facility] [address] [id number] [place] [address] Sep, [facility] [place] [facility] [address] [id number] [place] [address] Sep, [facility] [place] [facility] [address] [id number] [place] [address] Sep, [facility] [place] [facility] [address] [id number] [place] [address] Sep, [facility] [place] [facility] [address] [id number] [place] [address] Sep, [facility] [place] [facility] [address] [id number] [place] [address]- [address] Sep, [facility] [place] [facility] [address] [id number] [place] [address] July, [facility] [place] [facility] [address] [id number] [place] [address] July, [facility] [place] [facility] [address] [id number] [place] [address] July, [facility] [place] [facility] [address] [id number] [place] [address] July, [facility] [place] [facility] [address] [id number] [place] [address] July, [facility] [place] [facility] [address] [id number] [place] [address] July, [facility] [place] [facility] [address] [id number] [place] [address] July, [facility] [place] [facility] [address] [id number] [place] [address] July, [facility] [place] [facility] [address] [id number] [place] [address] Jun, [facility] [place] [facility] [address] [id number] [place] [address] Jun, [facility] [place] [facility] [address] [id number] [place] [address] Jun, [facility] [place] [facility] [address] [id number] [place] [address] Jun, [facility] [place] [facility] [address] [id number] [place] [address] Jun, [facility] [place] [facility] [address] [id number] [place] [address] Jun, [facility] [place] [facility] [address] [id number] [place] [address] Jun, [facility] [place] [facility] [address] [id number] [place] [address] 03 Jun, 2013 [facility] [place] [facility] [address] [id number] [place] [address] 27 May, 2013 [facility] [place] [facility] [address] [id number] [place] [address] 8716 27 May, 2013 [facility] [place] [facility] [address] [id number] [place] [address] 7966 21 May, 2013 [facility] [place] [facility] [address] [id number] [place] [address] 3437 21 May, 2013 [facility] [place] [facility] [address] [id number] [place] [address] 1409 20 May, 2013 [facility] [place] [facility] [address] [id number] [place] [address] 1631 20 May, 2013 [facility] [place] [facility] [address] [id number] [place] [address] 4088 19 May, 2013 [facility] [place] [facility] [address] [id number] [place] [address] 7558 19 May, 2013 [facility] [place] [facility] [address] [id number] [place] [address] 2546 17 May, 2013 [facility] [place] [facility] [address] [id number] [place] [address] 6844 17 May, 2013 [facility] [place] [facility] [address] [id number] [place] [address] 2854 17 May, 2013 [facility] [place] [facility] [address] [id number] [place] [address] 5540 17 May, 2013 [facility] [place] [facility] [address] [id number] [place] [address]- 4795 12 May, 2013 [facility] [place] [facility] [address] [id number] [place] [address]- 6029 12 May, 2013 [facility] [place] [facility] [address] [id number] [place] [address] 2427 05 May, 2013 [facility] [place] [facility] [address] [id number] [place] [address]- 7948 May, [facility] [place] [facility] [address] [id number] [place] [address] 8286 Apr, [facility] [place] [facility] [address] [id number] [place] [address]- 6898 Apr, [facility] [place] [facility] [address] [id number] [place] [address] 7678 Mar, [facility] [place] [facility] [address] [id number] [place] [address] 9400 Mar, [facility] [place] [facility] [address] [id number] [place] [address] 1348 Mar, [facility] [place] [facility] [address] [id number] [place] [address] 1416 Mar, [facility] [address] [id number] [place] [address] 9327 Mar, [facility] [place] [facility] [address] [id number] [place] [address] 5207 Mar, [facility] [place] [facility] [address] [id number] [place] [address] 1787 Feb, [facility] [place] [facility] [address] [id number] [place] [address]- 1414 Feb, [facility] [place] [facility] [address] [id number] [place] [address]- 4548 Feb, [facility] [place] [facility] [address] [id number] [place] [address] 4154 Feb, [facility] [place] [facility] [address] [id number] [place] [address]- 5586 Feb, [facility] [place] [facility] [address] [id number] [place] [address] 6190 Feb, [facility] [place] [facility] [address] [id number] [place] [address]- 4509 Jan, [facility] [place] [facility] [address] [id number] [place] [address]- 6969 Jan, [facility] [place] [facility] [address] [id number] [place] [address] Jan, [facility] [place] [facility] [address] [id number] [place] [address]- 2314 Jan, [facility] [place] [facility] [address] [id number] [place] [address]- 3125 Jan, [facility] [place] [facility] [address] [id number] [place] [address]- 8378 Jan, [facility] [place] [facility] [address] [id number] [place] [address] 0169 Jan, [facility] [place] [facility] [address] [id number] [place] [address] 8306 Dec, [facility] [place] [facility] [address] [id number] [place] [address]- 9392 Dec, [facility] [place] [facility] [address] [id number] [place] [address] 1204 Dec, [facility] [place] [facility] [address] [id number] [place] [address] 4835 Nov, [facility] [place] [facility] [address] [id number] [address] Oct, [facility] [place] [facility] [address] [id number] [place] [address] 3091 Sep, [facility] [place] [facility] [address] [id number] [place] [address] 5815 Sep, [facility] [place] [facility] [address] [id number] [place] [address]- 2969 Sep, [facility] [place] [facility] [address] [id number] [place] [address]- 8578 Sep, [facility] [place] [facility] [address] [id number] [place] [address]- 2546 08 Sep, 2012 [facility] [address] [id number] [place] [address] 6550 Sep, [facility] [address] [id number] [place] [address] 2546 Aug, [facility] [address] [id number] [place] [address]- 2546 Aug, [facility] [address] [id number] [place] [address] 2546 July, [facility] [address] [id number] [place] [address] 5616 July, [facility] [address] [id number] [place] [address] 7196 July, [facility] [address] [id number] [place] [address] 5136 July, [facility] [address] [id number] [place] [address] 9311 Jun, [facility] [address] [id number] [place] [address] 3424 May, [facility] [address] [id number] [place] [address]- 6396 May, [facility] [address] [id number] [place] [address] 2546 May, [facility] [address] [id number] [place] [address] 5862 Mar, [facility] [address] [id number] [place] [address]- 2546 Mar, [facility] [address] [id number] [place] [address] 2546 Mar, [facility] [address] [id number] [place] [address] 1928 Feb, [facility] [place] [facility] [address] [id number] [place] [address]- 0725 Feb, [facility] [place] [facility] [address] [id number] [place] [address] 5156 Feb, [facility] [place] [facility] [address] [id number] [place] [address]- 5904 Feb, [facility] [place] [facility] [address] [id number] [place] [address]- 4666 Feb, [facility] [place] [facility] [address] [id number] [place] [address]- 9450 Feb, [facility] [place] [facility] [address] [id number] [place] [address]- 8981 Feb, [facility] [place] [facility] [address] [id number] [place] [address]- 6014 Feb, [facility] [place] [facility] [address] [id number] [place] [address]- 8763 Feb, [facility] [place] [facility] [address] [id number] [place] [address]- 6102 Feb, [facility] [place] [facility] [address] [id number] [place] [address]- 0976 Jan, [facility] [place] [facility] [address] [id number] [place] [address]- 2764 Jan, [facility] [place] [facility] [address] [id number] [place] [address]- 8776 Jan, [facility] [place] [facility] [address] [id number] [place] [address]- 6789 Jan, [facility] [place] [facility] [address] [id number] [place] [address]- 6567 Jan, [facility] [place] [facility] [address] [id number] [place] [address]- 8443 Jan, [facility] [place] [facility] [address] [id number] [place] [address]- 4236 Jan, [facility] [place] [facility] [address] [id number] [place] [address]- 8257 Jan, [facility] [place] [facility] [address] [id number] [place] [address]- 1835 Jan, [facility] [place] [facility] [address] [id number] [place] [address]- 2313 Jan, [facility] [place] [facility] [address] [id number] [place] [address]- 1215 Dec, [facility] [place] [facility] [address] [id number] [place] [address], [place] [address]- 9760 Dec, [facility] [place] [facility] [address] [id number] [place] [address]- 2569 Nov, [facility] [place] [facility] [address] [id number] [place] [address]- 2804 24 Nov, 2011 [facility] [place] [facility] [address] [id number] [place] [address]- 7623 05 Nov, 2011 [facility] [place] [facility] [address] [id number] [place] [address]- 9496 Oct, [facility] [place] [facility] [address] [id number] [place] [address]- 3032 Oct, [facility] [place] [facility] [address] [id number] [place] [address]- 4192 Oct, [facility] [place] [facility] [address] [id number] [address]- 5541 Oct, [facility] [place] [facility] [address] [id number] [place] [address]- 3017 18 Aug, 2011 [facility] [place] [facility] [address] [id number] [place] [address]89 15 Aug, 2011 [facility] [place] [facility] [address] [id number] [place] [address]- 4122 14 Aug, 2011 [facility] [place] [facility] [address] [id number] [place] [address]- 0699 07 Aug, 2011 [facility] [place] [facility] [address] [id number] [place] [address]- 6283 08 Jun, 2011 [facility] [place] [facility] [address] [id number] [place] [address]- 7156 07 May, 2011 [facility] [place] [facility] [address] [id number] [place] [address]- 3563 06 May, 2011 [facility] [place] [facility] [address] [id number] [place] [address]- 2720 Apr, [facility] [place] [facility] [address] [id number] [place] [address]- 2521 20 Apr, 2011 [facility] [place] [facility] [address] [id number] [place] [address]- 1450 15 Apr, 2011 [facility] [place] [facility] [address] [id number] [place] [address]- 8694 14 Apr, 2011 [facility] [place] [facility] [address] [id number] [place] [address]- 6423 24 Mar, 2011 [facility] [place] [facility] [address] [id number] [place] [address]- 0611 Mar, [facility] [place] [facility] [address] [id number] [place] [address]- 0080 Mar, [facility] [place] [facility] [address] [id number] [place] [address]- 3703 18 Mar, 2011 [facility] [place] [facility] [address] [id number] [place] [address]- 2669 Mar, [facility] [place] [facility] [address] [id number] [place] [address]- 9281 Mar, [facility] [place] [facility] [address] [id number] [place] [address]- 1520 Feb, [facility] [place] [facility] [address] [id number] [address] 97[address] Jan, [facility] [place] [id number] [address]- 4740 Jan, [facility] [place] [id number] [address]- 9446 Jan, [facility] [place] [id number] [address]- 4566 Jan, [facility] [place] [id number] [address]- 3535 Jan, [facility] [place] [id number] [address]- 8658 Dec, [facility] [place] [id number] [address]- 7257 May, [facility] [place] [id number] [address]- 1610 Apr, [facility] [place] [id number] [address]- 4681 Mar, [facility] [place] [id number] [address]- 3092 Feb, [facility] [place] [id number] [address]- 2446 Feb, [facility] [place] [id number] [address]- 3501 Feb, [facility] [place] [address] [id number] [address]- 6226 Feb, [facility] [place] [id number] [address]84 Dec, [facility] [place] [id number] [address]- 0415 Dec, IMMUNIZATIONS No Known Immunizations SOCIAL HISTORY Never Assessed REASON FOR VISIT MTM (Medication Therapy Management) PLAN OF CARE VITAL SIGNS MEDICATIONS Unknown [...]
--- OUTSIDE RECORDS SUMMARY | 2017-12-04 10:08 | XMS REPORT ---
Author Author JYOTSNA EMERY [facility] eClinical[employer] Address Unknown Phone Unavailable Care Team Providers Care Domestic Travel Consultant Name Role Phone JYOTSNA EMERY CP Unavailable [...] Coronary atherosclerosis of unspecified type of vessel, [place] or graft 414.00 Active Problem Dermatophytosis of nail 110.1 Active Medications Medication Code System Code Instructions Start Date End Date Status Dosage Atorvastatin Calcium [facility] [address]-05 40 MG Orally Once a day 1 tablet Effexor XR [facility] [address]-44 75 MG Orally Once a day Oct 21, 2014 1 capsule with food Results No Known Results Summary Purpose eClinicalWorks Submission
--- OUTSIDE RECORDS SUMMARY | 2017-12-04 10:08 | XMS REPORT ---
Author Author JYOTSNA EMERY Organization [facility] Address [address] [place] [address] Care Team Providers Care Microbiological Laboratory Technician Name Role Phone JYOTSNA EMERY Unavailable PROBLEMS Type Condition ICD9-CM Code [id number] Code Onset Dates Condition Status SNOMED Code Problem Diabetes E11.9 Active 398278202 Problem Type 2 diabetes mellitus with hyperglycemia E11.65 Active 28983112 Problem Essential hypertension I10 Active 67471600 Problem Diabetic polyneuropathy associated with diabetes mellitus due to underlying condition E08.42 Active 78512130 Problem Rotator cuff syndrome of right shoulder M75.101 Active 449942009198700 Problem Slow transit constipation K59.01 Active 61409033 Problem USP current use of insulin Z79.4 Active 075278708 Problem Constipation, unspecified constipation type K59.00 Active 91364892 Problem Irritable bowel syndrome, unspecified type K58.9 Active 28100303 Problem Barretts esophagus without dysplasia K22.70 Active 122663393 Problem 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 01 Nov, 2014 Active 2411295 Problem Gastroparesis K31.84 Active 042420878 Problem Bipolar disorder, current episode depressed, moderate F31.32 Active 936014531 Problem Gastro-esophageal reflux disease without esophagitis K21.9 Active 475313998 Problem Panic disorder with agoraphobia F40.01 Active 61464694 Problem Type 2 diabetes mellitus with diabetic autonomic (poly)neuropathy E11.43 Active 598926345 Problem BRITTANI (generalized anxiety disorder) F41.1 Active 69742774 Problem Obstructive sleep apnea syndrome G47.33 Active 65674643 ALLERGIES No Information ENCOUNTERS Encounter Location Date Diagnosis [facility] [address] [facility] [id number] [address] Jun, [facility] [address] [facility] [id number] [address] 2959 May, [facility] [address] [id number] [place] [address] 80557- 9053 May, Bipolar disorder, current episode depressed, moderate F31.32 [facility] [id number] [place] [address] 28391 -6806 May, [facility] [id number] [place] [address] 26199- 1695 May, Diabetic polyneuropathy associated with diabetes mellitus due to underlying condition E08.42 [place] [address] 40966- 6311 Apr, [place] [address] 80449- 7643 Feb, Ganglion cyst of dorsum of right wrist M67.431 [place] [address] 81173- 5428 Jan, Other cyst of bone, right forearm M85.631 [place] [address] 94941- 8859 Jan, [place] [address] 68512- 2128 Jan, Diabetes E11.9 and Right forearm pain M79.631 [place] [address] 70439- 7683 Dec, Encounter for immunization Z23 [place] [address] 41789- 3431 Nov, [place] [address] 59517- 5845 19 Nov, 2016 Type 2 diabetes mellitus with hyperglycemia E11.65 [place] [address] [id number] [place] [address] 44491- 6344 15 Nov, 2016 Severe pain of right shoulder M25.511 [place] [address] 53396- 0073 Oct, Diabetes E11.9 [facility] [address] [address] 3827 Oct, Diabetes E11.9 [facility] [id number] [place] [address] 77133- 8471 Oct, [facility] [id number] [place] [address] 29259- 9865 Oct, [facility] [id number] [place] [address] 99457- 5356 Oct, Rotator cuff syndrome of right shoulder M75.101 [facility] [address] [id number] [place] [address] 98051- 4647 Oct, Diabetes E11.9 [facility] [id number] [place] [address] 11229- 3455 Sep, Type 2 diabetes mellitus with hyperglycemia E11.65 ; Obstructive sleep apnea syndrome G47.33 and Constipation, unspecified constipation type K59.00 [facility] [id number] [place] [address] 23023- 5328 Aug, [facility] [id number] [place] [address] 05229- 6615 Aug, [facility] [id number] [place] [address] 29114- 6991 Aug, Type 2 diabetes mellitus with diabetic autonomic (poly) neuropathy E11.43 [facility] [id number] [place] [address] 89923- 7647 July, Type 2 diabetes mellitus with hyperglycemia E11.65 [facility] [id number] [place] [address] 17038- 6102 Jun, Slow transit constipation K59.01 [facility] [id number] [place] [address] 66721- 3994 May, [facility] [id number] [place] [address] 74933- 8223 May, Diabetes E11.9 [facility] [address] [address] 2163 May, [facility] [place] [id number] [place] [address] 56612 -1658 Apr, [place] [address] [id number] [place] [address] 95464- 5602 Apr, Gastroenteritis K52.9 [facility] [place] [address] [id number] [place] [address] 16119 -4361 Apr, Abdominal pain, unspecified location R10.9 ; Gastroenteritis K52.9 ; Type 2 diabetes mellitus with hyperglycemia E11.65 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 [place] [address] [id number] [place] [address] 89280- 0447 Apr, [place] [address] 32652- 3795 Apr, [place] [address] [id number] [place] [address] 52210- 1415 Apr, Diabetes E11.9 ; Gastroparesis K31.84 ; Generalized abdominal pain R10.84 ; Essential hypertension I10 ; Bronchitis J40 and Other fatigue R53.83 [facility] [place] [id number] [place] [address] 06616 -4763 Mar, [facility] [place] [address] [place] [id number] [place] [address] 98849 -0524 Mar, [facility] [place] [address] [address] [id number] [place] [address] 02110 -5403 Mar, Laceration of scalp without foreign body, initial encounter S01.01XA ; Laceration of face, initial encounter S01.81XA and Encounter for immunization Z23 [place] [address] [address] [id number] [place] [address] 87303- 1916 Mar, Type 2 diabetes mellitus with diabetic autonomic (poly) neuropathy E11.43 [place] [address] [id number] [place] [address] 56745- 9455 Feb, [place] [address] 36888- 8933 Feb, Internal hemorrhoids K64.8 and Obstructive sleep apnea syndrome G47.[address] 04487- 8563 Feb, SI (sacroiliac) joint dysfunction M53.3 [place] [address] 60453- 2102 Jan, [address] 96083- 2260 Dec, Gastroparesis K31.[address] 36970- 2250 Dec, [address] 60429- 5184 Dec, Right hip pain M25.551 ; Nose congested R09.81 and Encounter for immunization Z23 [place] [id number] [place] [address] 93253- 5570 Nov, Diabetes E11.9 ; Gastroparesis K31.84 ; Type 2 diabetes mellitus with diabetic autonomic (poly)neuropathy E11.43 and Obstructive sleep apnea syndrome G47.33 [place] [address] [place] [id number] [place] [address] 35358- 7745 Oct, [place] [address] [place] [id number] [place] [address] 03909- 6326 Aug, [address] 22346- 3114 July, Gastro-esophageal reflux disease without esophagitis K21.9 [place] [address] [place] [id number] [place] [address] 46461- 9791 July, [place] [address] [place] [id number] [place] [address] 11945- 7391 July, Diabetes E11.9 [place] [address] [place] [id number] [place] [address] 82932- 7329 July, Diabetes E11.9 ; Obstructive sleep apnea syndrome G47.33 and Neuropathy G62.9 [place] [address] [place] [id number] [place] [address] 64858- 1833 July, Bipolar disorder, current episode depressed, moderate F31.32 ; BRITTANI (generalized anxiety disorder) F41.1 and Panic disorder with agoraphobia F40.01 [place] [address] [id number] [place] [address] 93984- 2849 Jun, [place] [address] [place] [id number] [place] [address] 57716- 7597 Jun, [place] [address] [place] [id number] [place] [address] 36548- 5994 Jun, [place] [address] [address] [id number] [place] [address] 72942- 5424 Jun, [facility] [id number] [place] [address] [id number] May, Encounter for dental examination and cleaning without abnormal findings Z01.20 [place] [address] [place] [address] 46411- 3630 Apr, [place] [address] [place] [id number] [place] [address] 01782- 8877 Apr, [place] [address] [place] [id number] [place] [address] 36331- 9211 Apr, Bipolar disorder, current episode depressed, moderate F31.32 ; BRITTANI (generalized anxiety disorder) F41.1 and Panic disorder with agoraphobia F40.01 [facility] [address] [place] [address] 14566- 8916 Apr, Hyperlipidemia, unspecified E78.5 [facility] [address] [place] [address] [id number] Apr, Dental caries K02.9 [facility] [address] [place] [id number] [place] [address] [id number] Feb, Dental caries K02.9 and Encounter for dental examination Z01.20 [place] [address] [place] [id number] [place] [address] 02533- 7410 Feb, [place] [address] 60225- 6814 Feb, Diabetes E11.9 ; Insulin long-term use Z79.4 ; Diabetic polyneuropathy associated with diabetes mellitus due to underlying condition E08.42 and Barretts esophagus with high grade dysplasia K22.711 [place] [id number] [place] [address] 92772- 4149 14 Feb, [address] 53837- 6321 Jan, Pain in right hip M25.551 and Other chronic pain G89.29 [place] [id number] [place] [address] 17799- 8581 Jan, Impingement syndrome, shoulder, left M75.42 [place] [address] [place] [id number] [place] [address] 15279- 4670 Jan, Bipolar disorder, current episode depressed, moderate F31.32 ; Generalized anxiety disorder F41.1 and Agoraphobia with panic disorder F40.01 [place] [address] [place] [id number] [place] [address] 42992- 1618 Jan, [place] [address] 77077- 4880 Dec, [place] [address] [place] [id number] [place] [address] 48881- 6622 Dec, [place] [address] [place] [id number] [place] [address] 46719- 6233 08 Oct, 2015 Right hip pain M25.551 and Left shoulder pain M25.512 [facility] [id number] [address]- 7293 Dec, Bipolar 1 disorder, depressed, moderate F31.32 ; BRITTANI ( generalized anxiety disorder) F41.1 and Panic disorder with agoraphobia F40.01 [facility] [id number] [address]- 9603 Dec, [facility] [address] [place] [id number] [place] [address] 99367- 7011 Dec, [facility] [address] [place] [id number] [place] [address] 56133- 2792 Nov, [facility] [address] [place] [id number] [place] [address] 53816- 4274 18 Nov, 2014 [facility] [address] [id number] [place] [address] 09267- 0002 Nov, [facility] [address] [place] [id number] [place] [address] 19282- 4941 Nov, Diabetes 250.00 [facility] [address] [place] [id number] [place] [address] 02906- 9258 Oct, [facility] [address] [id number] [address]- 5535 Oct, [facility] [address] [place] [id number] [place] [address] 40535- 0945 Oct, [facility] [id number] [address]- 9598 Oct, [facility] [address] [place] [address] 20177- 0285 Oct, [facility] [address] [address]- 4838 Oct, [facility] [address] [place] [address] 45383- 9122 Oct, Diabetes 250.00 ; Insomnia 780.52 and Forgetfulness 780.99 [facility] [address] [address]- 5540 Oct, Depressive disorder, not elsewhere classified 311 [facility] [address] [facility] [id number] [address]- 2152 Sep, [facility] [address] [place] [id number] [address]- 1194 Sep, [facility] [address] [id number] [address]- 6481 Sep, [facility] [address] [place] [address] 32743- 9783 Sep, [facility] [address] [address]- 9867 Sep, [facility] [address] [id number] [address]- 4374 Sep, [facility] [address] [address]- 0180 Sep, [facility] [address] [address]- 1150 Aug, [facility] [address] [id number] Aug, Dental examination V72.2 [facility] [address] [address]- 3005 Aug, [facility] [address] [place] [id number] [address]- 3935 Aug, [facility] [address]- 7269 July, [facility] [address] 3589 July, [facility] [address] 4354 July, [facility] [place] [facility] [address] [id number] [place] [address]- 3620 July, [facility] [place] [facility] [address] [id number] [place] [address]- 4074 14 Jun, 2014 [facility] [place] [facility] [address] [id number] [place] [address]- 1029 Jun, [facility] [place] [facility] [address] [id number] [place] [address]- 2294 May, [facility] [place] [facility] [address] [id number] [place] [address]- 4411 23 May, 2014 [facility] [place] [facility] [address] [id number] [place] [address]- 0500 May, [facility] [place] [facility] [address] [id number] [place] [address]- 7138 May, [facility] [place] [facility] [address] [id number] [place] [address]- 6719 May, [facility] [place] [facility] [address] [id number] [place] [address]- 9535 May, [facility] [place] [facility] [address] [id number] [place] [address]- 0365 16 May, 2014 [facility] [place] [facility] [address] [id number] [place] [address]- 7582 May, [facility] [place] [facility] [address] [id number] [place] [address]- 9706 Apr, [facility] [place] [facility] [address] [id number] [place] [address]- 7572 Apr, [facility] [place] [facility] [address] [id number] [place] [address]- 6478 Apr, [facility] [place] [facility] [address] [id number] [place] [address]- 1728 Apr, [facility] [place] [facility] [address] [id number] [place] [address]- 1659 Apr, [facility] [address] [id number] [place] [address]- 6202 Apr, [facility] [place] [facility] [address] [id number] [place] [address]- 9571 Mar, [facility] [address] [id number] [place] [address]- 3072 Mar, [facility] [place] [facility] [address] [id number] [place] [address]- 3016 Mar, [facility] [address] [id number] [place] [address]- 5275 Mar, [facility] [place] [facility] [address] [id number] [place] [address]- 4387 Mar, [facility] [place] [facility] [address] [id number] [place] [address]- 4256 Mar, [facility] [address] [id number] [place] [address]- 0894 Mar, [facility] [place] [facility] [address] [id number] [place] [address]- 3784 Mar, [facility] [address] [id number] [place] [address]- 7375 Mar, [facility] [place] [facility] [address] [id number] [place] [address]- 8216 Mar, [facility] [place] [facility] [address] [id number] [place] [address]- 9473 Mar, [facility] [place] [facility] [address] [id number] [place] [address]- 6953 Mar, [facility] [place] [facility] [address] [id number] [place] [address]- 2813 Mar, [facility] [place] [facility] [address] [id number] [place] [address]- 9780 Mar, [facility] [place] [facility] [address] [id number] [place] [address]- 3082 Feb, [facility] [place] [facility] [address] [id number] [place] [address]- 0436 Feb, [facility] [place] [facility] [address] [id number] [place] 1186 Feb, [facility] [place] [facility] [address] [id number] [place] [address]- 7602 Feb, [facility] [place] [facility] [address] [id number] [place] [address]- 4686 Feb, [facility] [place] [facility] [address] [id number] [place] [address]- 7484 Feb, [facility] [place] [facility] [address] [id number] [place] [address]- 7186 Feb, [facility] [place] [facility] [address] [id number] [place] [address]- 3637 Feb, [facility] [place] [facility] [address] [id number] [place] [address]- 5471 Feb, [facility] [place] [facility] [address] [id number] [place] [address]- 5444 Feb, [facility] [place] [facility] [address] [id number] [place] [address]- 2815 Feb, [facility] [place] [facility] [address] [id number] [place] [address]- 4222 Feb, [facility] [place] [facility] [address] [id number] [place] 9103 Feb, [facility] [place] [facility] [address] [id number] [place] 9958 Feb, [facility] [place] [facility] [address] [id number] [place] [address]- 5312 Jan, [facility] [place] [facility] [address] [id number] [address]- 7005 Jan, [facility] [place] [facility] [address] [id number] [place] [address]- 0565 Jan, [facility] [place] [facility] [address] [id number] [place] 3414 Jan, [facility] [place] [facility] [address] [id number] [place] [address]- 7956 Dec, [facility] [place] [facility] [address] [id number] [place] [address]- 9281 Dec, [facility] [place] [facility] [address] [id number] [place] [address]- 6437 Dec, [facility] [place] [facility] [address] [id number] [place] [address]- 1501 Dec, [facility] [place] [facility] [address] [facility] [id number] [place] [address]- 5654 Dec, [facility] [place] [facility] [address] [facility] [id number] [place] [address]- 2098 Dec, [facility] [place] [facility] [address] [facility] [id number] [place] [address]- 3237 Dec, [facility] [place] [facility] [address] [facility] [id number] [place] [address]- 7480 Dec, [facility] [place] [facility] [address] [id number] [address]- 1292 30 Nov, 2013 [facility] [place] [facility] [address] [id number], [place] [address]- 0791 17 Nov, 2013 [facility] [place] [facility] [address] [id number] [place] [address]- 1834 17 Nov, 2013 [facility] [place] [facility] [address] [facility] [id number] [place] [address]- 2129 Nov, 2013 [facility] [place] [facility] [address] [facility] [id number] [place] [address]- 5089 09 Nov, 2013 [facility] [place] [facility] [address] [id number] [place] [address]- 9271 Oct, [facility] [place] [facility] [address] [id number] [facility] [address]- 0301 Oct, [facility] [place] [facility] [address] [id number] [place] [address]- 9556 Sep, [facility] [place] [facility] [address] [id number] [place] [address]- 8454 Sep, [facility] [place] [facility] [address] [id number] [place] [address]- 4598 Sep, [facility] [place] [facility] [address] [id number] [place] [address]- 8010 Sep, [facility] [place] [facility] [address] [id number] [place] [address]- 7782 Sep, [facility] [place] [facility] [address] [id number] [place] [address]- 1077 Sep, [facility] [place] [facility] [address] [id number] [place] [address] Sep, [facility] [place] [facility] [address] [id number] [place] [address] Sep, [facility] [place] [facility] [address] [id number] [place] [address] Sep, [facility] [place] [facility] [address] [id number] [place] [address] Sep, [facility] [place] [facility] [address] [id number] [place] [address] Sep, [facility] [place] [facility] [address] [id number] [place] [address] Sep, [facility] [place] [facility] [address] [id number] [place] [address] Sep, [facility] [place] [facility] [address] [id number] [place] [address] Sep, [facility] [place] [facility] [address] [id number] [place] [address] July, [facility] [place] [facility] [address] [id number] [place] [address] July, [facility] [place] [facility] [address] [id number] [place] [address] July, [facility] [place] [facility] [address] [id number] [place] [address] July, [facility] [place] [facility] [address] [id number] [place] [address] July, [facility] [place] [facility] [address] [id number] [place] [address] July, [facility] [place] [facility] [address] [id number] [place] [address] July, [facility] [place] [facility] [address] [id number] [place] [address] July, [facility] [place] [facility] [address] [id number] [place] [address] Jun, [facility] [place] [facility] [address] [id number] [place] [address] Jun, [facility] [place] [facility] [address] [id number] [place] [address] Jun, [facility] [place] [facility] [address] [id number] [place] [address] Jun, [facility] [place] [facility] [address] [id number] [place] [address] Jun, [facility] [place] [facility] [address] [id number] [place] [address] Jun, [facility] [place] [facility] [address] [id number] [place] [address] Jun, [facility] [place] [facility] [address] [id number] [place] [address]- [address] 03 Jun, 2013 [facility] [place] [facility] [address] [id number] [place] [address] 27 May, 2013 [facility] [place] [facility] [address] [id number] [place] [address] 27 May, 2013 [facility] [place] [facility] [address] [id number] [place] [address] 21 May, 2013 [facility] [place] [facility] [address] [id number] [place] [address] 21 May, 2013 [facility] [place] [facility] [address] [id number] [place] [address] 20 May, 2013 [facility] [place] [facility] [address] [id number] [place] [address] 20 May, 2013 [facility] [place] [facility] [address] [id number] [place] [address]- [address] 19 May, 2013 [facility] [place] [facility] [address] [id number] [place] [address] 19 May, 2013 [facility] [place] [facility] [address] [id number] [place] [address] 17 May, 2013 [facility] [place] [facility] [address] [id number] [place] [address] 17 May, 2013 [facility] [place] [facility] [address] [id number] [place] [address] 17 May, 2013 [facility] [place] [facility] [address] [id number] [place] [address] 17 May, 2013 [facility] [place] [facility] [address] [id number] [place] [address]29 12 May, 2013 [facility] [place] [facility] [address] [id number] [place] [address]32 12 May, 2013 [facility] [place] [facility] [address] [id number] [place] [address] 05 May, 2013 [facility] [place] [facility] [address] [id number] [place] [address] 57[address] May, [facility] [place] [facility] [address] [id number] [place] [address] Apr, [facility] [place] [facility] [address] [id number] [place] [address] Apr, [facility] [place] [facility] [address] [id number] [place] [address] Mar, [facility] [place] [facility] [address] [id number] [place] [address] 17[address] Mar, [facility] [place] [facility] [address] [id number] [place] [address] 405[address] Mar, [facility] [place] [facility] [address] [id number] [place] [address] 79[address] Mar, [facility] [address] [id number] [place] [address] 77[address] Mar, [facility] [place] [facility] [address] [id number] [place] [address] 2740 Mar, [facility] [place] [facility] [address] [id number] [place] [address] Feb, [facility] [place] [facility] [address] [id number] [place] [address] 1091 Feb, [facility] [place] [facility] [address] [id number] [place] [address] 5357 Feb, [facility] [place] [facility] [address] [id number] [place] [address] 6443 Feb, [facility] [place] [facility] [address] [id number] [place] [address] 6693 Feb, [facility] [place] [facility] [address] [id number] [place] [address] 8470 Feb, [facility] [place] [facility] [address] [id number] [place] [address] 4376 Jan, [facility] [place] [facility] [address] [id number] [place] [address] 112[address] Jan, [facility] [place] [facility] [address] [id number] [place] [address] Jan, [facility] [place] [facility] [address] [id number] [place] [address] 8009 Jan, [facility] [place] [facility] [address] [id number] [place] [address] 1155 Jan, [facility] [place] [facility] [address] [id number] [place] [address] 8862 Jan, [facility] [place] [facility] [address] [id number] [place] [address] 1759 Jan, [facility] [place] [facility] [address] [id number] [place] [address] 2480 Dec, [facility] [place] [facility] [address] [id number] [place] [address] 4896 Dec, [facility] [place] [facility] [address] [id number] [place] [address] 9089 Dec, [facility] [place] [facility] [address] [id number] [place] [address] 6798 Nov, [facility] [place] [facility] [address] [id number] [address] Oct, [facility] [place] [facility] [address] [id number] [place] [address] 9391 Sep, [facility] [place] [facility] [address] [id number] [place] [address] 1180 Sep, [facility] [place] [facility] [address] [id number] [place] [address] 4866 Sep, [facility] [place] [facility] [address] [id number] [place] [address] 2281 Sep, [facility] [place] [facility] [address] [id number] [place] [address]46 08 Sep, 2012 [facility] [address] [id number] [place] [address] 5729 Sep, [facility] [address] [id number] [place] [address] 2546 Aug, [facility] [address] [id number] [place] [address] 2546 Aug, [facility] [address] [id number] [place] [address] 2546 July, [facility] [address] [id number] [place] [address] 8626 July, [facility] [address] [id number] [place] [address] 4616 July, [facility] [address] [id number] [place] [address] 0186 July, [facility] [address] [id number] [place] [address] 5469 Jun, [facility] [address] [id number] [place] [address] 6616 May, [facility] [address] [id number] [place] [address] 4747 May, [facility] [address] [id number] [place] [address] 2546 May, [facility] [address] [id number] [place] [address] 9128 Mar, [facility] [address] [id number] [place] [address] 2546 Mar, [facility] [address] [id number] [place] [address] 2546 Mar, [facility] [address] [id number] [place] [address] 2326 Feb, [facility] [place] [facility] [address] [id number] [place] [address] 0546 Feb, [facility] [place] [facility] [address] [id number] [place] [address] 8626 Feb, [facility] [place] [facility] [address] [id number] [place] [address] 5847 Feb, [facility] [place] [facility] [address] [id number] [place] [address] 1366 Feb, [facility] [place] [facility] [address] [id number] [place] [address] 3094 Feb, [facility] [place] [facility] [address] [id number] [place] [address] 7722 Feb, [facility] [place] [facility] [address] [id number] [place] [address]- 9354 Feb, [facility] [place] [facility] [address] [id number] [place] [address] 0859 Feb, [facility] [place] [facility] [address] [id number] [place] [address] 7990 Feb, [facility] [place] [facility] [address] [id number] [place] [address] 2835 Jan, [facility] [place] [facility] [address] [id number] [place] [address] 8018 Jan, [facility] [place] [facility] [address] [id number] [place] [address] 2738 Jan, [facility] [place] [facility] [address] [id number] [place] [address]- 8295 Jan, [facility] [place] [facility] [address] [id number] [place] [address] 0035 Jan, [facility] [place] [facility] [address] [id number] [place] [address]- 9530 Jan, [facility] [place] [facility] [address] [id number] [place] [address]- 2097 Jan, [facility] [place] [facility] [address] [id number] [place] [address]- 5873 Jan, [facility] [place] [facility] [address] [id number] [place] [address]- 8186 Jan, [facility] [place] [facility] [address] [id number] [place] [address]- 2844 Jan, [facility] [place] [facility] [address] [id number] [place] [address]- 5968 Dec, [facility] [place] [facility] [address] [id number] [place] [address], [place] [address]- 4840 Dec, [facility] [place] [facility] [address] [id number] [place] [address]- 0031 Nov, [facility] [place] [facility] [address] [id number] [place] [address]- 1275 24 Nov, 2011 [facility] [place] [facility] [address] [id number] [place] [address]- 8014 05 Nov, 2011 [facility] [place] [facility] [address] [id number] [place] [address]- 6954 Oct, [facility] [place] [facility] [address] [id number] [place] [address]- 8571 Oct, [facility] [place] [facility] [address] [id number] [place] [address]- 1164 Oct, [facility] [place] [facility] [address] [id number] [address] 4766 Oct, [facility] [place] [facility] [address] [id number] [place] [address]- 9874 18 Aug, 2011 [facility] [place] [facility] [address] [id number] [place] [address] 15 Aug, 2011 [facility] [place] [facility] [address] [id number] [place] [address]- 0050 14 Aug, 2011 [facility] [place] [facility] [address] [id number] [place] [address]- 4078 07 Aug, 2011 [facility] [place] [facility] [address] [id number] [place] [address]- 3436 08 Jun, 2011 [facility] [place] [facility] [address] [id number] [place] [address]- 1496 07 May, 2011 [facility] [place] [facility] [address] [id number] [place] [address]- 6401 06 May, 2011 [facility] [place] [facility] [address] [id number] [place] [address]- 8823 Apr, [facility] [place] [facility] [address] [id number] [place] [address]- 2021 20 Apr, 2011 [facility] [place] [facility] [address] [id number] [place] [address]- 7120 15 Apr, 2011 [facility] [place] [facility] [address] [id number] [place] [address]- 2184 14 Apr, 2011 [facility] [place] [facility] [address] [id number] [place] [address]- 3142 24 Mar, 2011 [facility] [place] [facility] [address] [id number] [place] [address]- 7251 Mar, [facility] [place] [facility] [address] [id number] [place] [address]- 2177 Mar, [facility] [place] [facility] [address] [id number] [place] [address]- 7300 18 Mar, 2011 [facility] [place] [facility] [address] [id number] [place] [address]- 8226 Mar, [facility] [place] [facility] [address] [id number] [place] [address]- 2695 Mar, [facility] [place] [facility] [address] [id number] [place] [address]- 1370 Feb, [facility] [place] [facility] [address] [id number], [place] [address] Jan, [facility] [address] [address] Jan, [facility] [address], [place] [address]- 8696 Jan, [facility] [address], [place] [address]- 6766 Jan, [facility] [address] [address] 4513 Jan, [facility] [address] [address]- 1594 Dec, [facility] [address] [address] 9170 May, [facility] [address] [address]- 1216 Apr, [facility] [address], [place] [address]- 2394 Mar, [facility] [address] [address]- 5315 Feb, [facility] [address], [place] [address]- 7251 Feb, [facility] [address] [address]- 6864 Feb, [facility] [address] [address]- 2719 Feb, [facility] [address] [address] Dec, [facility] [address] [address] 9335 Dec, IMMUNIZATIONS No Known Immunizations SOCIAL HISTORY Never Assessed REASON FOR VISIT Compliance concerns PLAN OF CARE VITAL SIGNS MEDICATIONS Unknown [...]
--- OUTSIDE RECORDS SUMMARY | 2017-12-04 10:09 | XMS REPORT ---
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
--- OUTSIDE RECORDS SUMMARY | 2017-12-04 10:09 | XMS REPORT ---
Author Author JYOTSNA EMERY [facility] Address [address] [place] [address] Care Team Providers Care Grinder And Honer Operator Automatic Name Role Phone JYOTSNA EMERY Unavailable PROBLEMS Type Condition ICD9-CM Code [id number] Code Onset Dates Condition Status SNOMED Code Problem Obstructive sleep apnea syndrome G47.33 Active 26250954 Problem Essential hypertension I10 Active 75328809 Problem Diabetes E11.9 Active 760172614 Problem Rotator cuff syndrome of right shoulder M75.101 Active 875145278028172 Problem Constipation, unspecified constipation type K59.00 Active 06637668 Problem [facility] current use of insulin Z79.4 Active 557046802 Problem Type 2 diabetes mellitus with hyperglycemia E11.65 Active 93480660 Problem Irritable bowel syndrome, unspecified type K58.9 Active 78240381 Problem Slow transit constipation K59.01 Active 62651512 Problem Gastroparesis K31.84 Active 122096672 Problem Barretts esophagus without dysplasia K22.70 Active 744701970 Problem BRITTANI (generalized anxiety disorder) F41.1 Active 09331600 Problem Bipolar disorder, current episode depressed, moderate F31.32 Active 193710686 Problem 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 01 Nov, 2014 Active 8192700 Problem Gastro-esophageal reflux disease without esophagitis K21.9 Active 401303007 Problem Panic disorder with agoraphobia F40.01 Active 69808518 Problem Type 2 diabetes mellitus with diabetic autonomic (poly)neuropathy E11.43 Active 258711379 ALLERGIES No Information SOCIAL HISTORY Never Assessed PLAN OF CARE VITAL SIGNS Height 67 in 2016-03-31 Weight 204.4 lbs 2016-03-31 Temperature 98.0 degrees Fahrenheit 2016-03-31 Heart Rate 80 bpm 2016-03-31 Respiratory Rate 18 2016-03-31 BMI 32.01 kg/m2 2016-03-31 Blood pressure systolic 140 mmHg 2016-03-31 Blood pressure diastolic 86 mmHg 2016-03-31 MEDICATIONS Medication Instructions Dosage Frequency Start Date End Date Duration Status NovoLog Flexpen 100 UNIT/ML INJECT 20 UNITS SUBCUTANEOUSLY THREE TIMES DAILY BEFORE MEALS 50 Active Fish Oil 1000 MG Orally Three times a day 1 capsule 8h Active Victoza 18 MG/3ML Subcutaneous Once a day Inject 1.8mg 24h 17 Jul, 2015 30 day(s) Active BusPIRone HCl 10 MG TAKE ONE TABLET BY MOUTH IN THE MORNING, ONE TABLET AT NOON AND TWO TABLETS AT BEDTIME 67 Active Nitrostat 0.4 MG Active Atorvastatin Calcium 40 MG Orally Once a day 1 tablet 24h 90 Active Oxybutynin Chloride 5 MG Orally Twice a day 1 tablet 12h 30 Active Vitamin E 100 UNIT Orally Once a day 1 capsule 24h Active Metformin HCl 500 MG Orally Twice a day 1 tablet with meals 12h 30 Active C-PAP Machine N/A as directed Oct, Active Zenpep 87492 UNIT Orally 6 times per day 1 Capsule before meals and snacks Nov, 120 days Active Quinapril HCl 20 MG TAKE 1 TABLET EVERY DAY 24h 30 Active Gabapentin 300 MG Orally Three times a day 3 capsule 8h 30 Active Test strips one touch ultra test blood sugar Dec, Active Levemir FlexTouch 100 UNIT/ML Subcutaneous 2 times a day Inject 42units 12h 90 days Active Metoprolol Tartrate 50 MG TAKE 1 TABLET TWICE DAILY 90 Active Aspirin Adult Low Dose 81 MG Orally Once a day 1 tablet 24h Active Doxycycline Hyclate 100 MG Orally every 12 hrs 1 capsule 12h Mar, Mar, 10 days Active Effexor XR 150 MG Orally Once a day 1 capsule with food 24h Oct, Active Pantoprazole Sodium 40 mg Orally Once a day 1 tablet 24h 90 days Active Adult Mask N/A as directed July, Active RESULTS No Results PROCEDURES No Known [...]
--- OUTSIDE RECORDS SUMMARY | 2017-12-04 10:09 | XMS REPORT ---
Author Author JYOTSNA EMERY Organization [facility] Address [address] [place] [address] Care Team Providers Care Roofing Plant Supervisor Name Role Phone JYOTSNA EMERY Unavailable PROBLEMS Type Condition ICD9-CM Code [id number] Code Onset Dates Condition Status SNOMED Code Problem Obstructive sleep apnea syndrome G47.33 Active 82842454 Problem Essential hypertension I10 Active 62402074 Problem Diabetes E11.9 Active 765654445 Problem Rotator cuff syndrome of right shoulder M75.101 Active 928827168357665 Problem Constipation, unspecified constipation type K59.00 Active 42516240 Problem [facility] use of [facility] Z79.4 Active 343473198 Problem Type 2 diabetes mellitus with hyperglycemia E11.65 Active 93924262 Problem Irritable bowel syndrome, unspecified type K58.9 Active 96975348 Problem Slow transit constipation K59.01 Active 31073926 Problem Gastroparesis K31.84 Active 636049983 Problem Barretts esophagus without dysplasia K22.70 Active 391256991 Problem BRITTANI (generalized anxiety disorder) F41.1 Active 57955091 Problem Bipolar disorder, current episode depressed, moderate F31.32 Active 899839873 Problem 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
--- OUTSIDE RECORDS SUMMARY | 2017-12-04 10:09 | XMS REPORT ---
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 Active Problem Coronary atherosclerosis of unspecified type of vessel, [place] or graft 414.00 Active Problem Family history of malignant neoplasm of gastrointestinal tract V16.0 Active Assessment Impingement syndrome, shoulder, left M75.42 Active Problem Type 2 diabetes mellitus with [...] Medications Procedures Procedure Coding System Code Date Office Visit, Est Pt., Level 3 CPT-4 29060 Jan 16, 2015 DEPO MEDROL 80 MG/ML CPT-4 J1040 Jan 16, 2015 DRAIN/INJECT, JOINT/BURSA CPT-4 87767 Jan 16, 2015 Vital Signs Date/Time: Jan 16, 2015 Blood Pressure Diastolic 70 mmHg Blood Pressure Systolic 120 mmHg Height 67 in Results Name Result Date Reference Range Unit Abnormality Flag JOINT INJECTION-INTERMEDIATE JOINT (specify site) Summary Purpose eClinicalWorks Submission
--- OUTSIDE RECORDS SUMMARY | 2017-12-04 10:10 | XMS REPORT ---
Author Author SAMAN GARCIA [facility] Address [address] [place] [address] Care Team Providers Care Corporate Services Manager Name Role Phone SAMAN GARCIA Unavailable PROBLEMS Type Condition ICD9-CM Code OLO57-FN Code Onset Dates Condition Status SNOMED Code Problem Diabetes E11.9 Active 241653239 Problem Type 2 diabetes mellitus with hyperglycemia E11.65 Active 80772034 Problem Essential hypertension I10 Active 75049977 Problem Diabetic polyneuropathy associated with diabetes mellitus due to underlying condition E08.42 Active 11769148 Problem Rotator cuff syndrome of right shoulder M75.101 Active 545850162204854 Problem Slow transit constipation K59.01 Active 17451007 Problem longterm current use of insulin Z79.4 Active 413638081 Problem Constipation, unspecified constipation type K59.00 Active 83491909 Problem Irritable bowel syndrome, unspecified type K58.9 Active 73387090 Problem Barretts esophagus without dysplasia K22.70 Active 060487000 Problem 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 Nov, Active 6666020 Problem Herniation of intervertebral disc at C5-C6 level M50.222 Active 582484988 Problem Gastroparesis K31.84 Active 376062033 Problem Bipolar disorder, current episode depressed, moderate F31.32 Active 989257074 Problem Gastro-esophageal reflux disease without esophagitis K21.9 Active 866378044 Problem Panic disorder with agoraphobia F40.01 Active 76111021 Problem Type 2 diabetes mellitus with diabetic autonomic (poly)neuropathy E11.43 Active 805894377 Problem BRITTANI (generalized anxiety disorder) F41.1 Active 76048586 Problem Obstructive sleep apnea syndrome G47.33 Active 44362836 ALLERGIES No Information ENCOUNTERS Encounter Location Date Diagnosis [facility] [address] [facility] [id number] [address] Jun, Type 2 diabetes mellitus with diabetic autonomic (poly) neuropathy E11.43 and Type 2 diabetes mellitus with hyperglycemia E11.65 [place] [id number] [place] [address] 41510- 4885 May, [place] [id number] [place] [address] 13055- 3594 May, Bipolar disorder, current episode depressed, moderate F31.32 [facility] [address] [address] May, [facility] [address] 12090- 7026 May, Diabetic polyneuropathy associated with diabetes mellitus due to underlying condition E08.42 [place] [address] 25686- 9745 Apr, [place] [address] 45534- 0828 Feb, Ganglion cyst of dorsum of right wrist M67.431 [place] [id number] [place] [address] 79821- 1832 Jan, Other cyst of bone, right forearm M85.631 [place] [id number] [place] [address] 20032- 2667 Jan, [place] [id number] [place] [address] 55197- 4053 Jan, Diabetes E11.9 and Right forearm pain M79.631 [place] [id number] [place] [address] 75151- 6098 Dec, Encounter for immunization Z23 [place] [address] 39142- 5837 Nov, [place] [id number] [place] [address] 62774- 1653 Nov, Type 2 diabetes mellitus with hyperglycemia E11.65 [place] [address] 06848- 2817 Nov, Severe pain of right shoulder M25.511 [facility] [id number] [place] [address] 63491- 5669 Oct, Diabetes E11.9 [facility] [id number] [place] [address] 68708- 0450 Oct, Diabetes E11.9 [facility] [id number] [place] [address] 94600- 9971 Oct, [facility] [id number] [place] [address] 38197- 1246 Oct, [facility] [address] 37256- 6910 Oct, Rotator cuff syndrome of right shoulder M75.101 [place] [id number] [place] [address] 27277- 1246 Oct, Diabetes E11.9 [facility] [id number] [place] [address] 26219- 4653 Sep, Type 2 diabetes mellitus with hyperglycemia E11.65 ; Obstructive sleep apnea syndrome G47.33 and Constipation, unspecified constipation type K59.00 [place] [id number] [place] [address] 78536- 8292 Aug, [facility] [id number] [place] [address] 34974- 1512 Aug, [facility] [id number] [place] [address] 15147- 0796 Aug, Type 2 diabetes mellitus with diabetic autonomic (poly) neuropathy E11.43 [facility] [id number] [place] [address] 27217- 1259 July, Type 2 diabetes mellitus with hyperglycemia E11.65 [facility] [id number] [place] [address] 34115- 6775 Jun, Slow transit constipation K59.01 [facility] [id number] [place] [address] 07637- 4531 May, [place] [id number] [place] [address] 19667- 2118 May, Diabetes E11.9 [place] [id number] [place] [address] 49214- 0760 May, [facility] [place] [id number] [place] [address] 86346 -3772 Apr, [place] [id number] [place] [address] 91541- 9939 Apr, Gastroenteritis K52.9 [facility] [place] [id number] [place] [address] 32355 -1977 Apr, Abdominal pain, unspecified location R10.9 ; Gastroenteritis K52.9 ; Type 2 diabetes mellitus with hyperglycemia E11.65 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 [place] [id number] [place] [address] 44524- 6907 Apr, [place] [id number] [place] [address] 06607- 7686 Apr, [place] [id number] [place] [address] 41862- 4674 Apr, Diabetes E11.9 ; Gastroparesis K31.84 ; Generalized abdominal pain R10.84 ; Essential hypertension I10 ; Bronchitis J40 and Other fatigue R53.83 [facility] [place] [id number] [place] [address] 67314 -2548 Mar, [facility] [place] [id number] [place] [address] 59433 -3501 Mar, [facility] [place] [id number] [place] [address] 87004 -0450 Mar, Laceration of scalp without foreign body, initial encounter S01.01XA ; Laceration of face, initial encounter S01.81XA and Encounter for immunization Z23 [place] [id number] [place] [address] 16231- 1644 Mar, Type 2 diabetes mellitus with diabetic autonomic (poly) neuropathy E11.43 [place] [address] 37802- 1790 Feb, [place] [address] 97037- 8760 Feb, Internal hemorrhoids K64.8 and Obstructive sleep apnea syndrome G47.33 [place] [address] 20344- 6029 Feb, SI (sacroiliac) joint dysfunction M53.[address] 49228- 1120 Jan, [address] 62978- 2893 Dec, Gastroparesis K31.84 [place] [address] 85192- 0377 Dec, [address] 20652- 3747 Dec, Right hip pain M25.551 ; Nose congested R09.81 and Encounter for immunization Z23 [address] 87825- 1010 Nov, Diabetes E11.9 ; Gastroparesis K31.84 ; Type 2 diabetes mellitus with diabetic autonomic (poly)neuropathy E11.43 and Obstructive sleep apnea syndrome G47.33 [place] [id number] [place] [address] 90882- 1676 Oct, [place] [address] 08216- 6307 Aug, [place] [address] 09129- 1634 July, Gastro-esophageal reflux disease without esophagitis K21.9 [place] [address] [address] 4037 July, [facility] [id number] [place] [address] 26102- 2974 July, Diabetes E11.9 [facility] [id number] [place] [address] 19084- 1238 July, Diabetes E11.9 ; Obstructive sleep apnea syndrome G47.33 and Neuropathy G62.9 [facility] [id number] [place] [address] 32294- 2755 July, Bipolar disorder, current episode depressed, moderate F31.32 ; BRITTANI (generalized anxiety disorder) F41.1 and Panic disorder with agoraphobia F40.01 [facility] [id number] [place] [address] 70743- 1895 Jun, [facility] [id number] [place] [address] 88810- 9116 Jun, [facility] [id number] [place] [address] 66102- 9320 Jun, [facility] [id number] [place] [address] 37519- 0900 Jun, [facility] [address] [place] [id number] [place] [address] [id number] May, Encounter for dental examination and cleaning without abnormal findings Z01.20 [facility] [id number] [place] [address] 71159- 9726 Apr, [facility] [id number] [place] [address] 53425- 8745 Apr, [facility] [id number] [place] [address] 30306- 2231 Apr, Bipolar disorder, current episode depressed, moderate F31.32 ; BRITTANI (generalized anxiety disorder) F41.1 and Panic disorder with agoraphobia F40.01 [facility] [address] [place] [address] [place] [address]- 4040 04 Apr, 2015 Hyperlipidemia, unspecified E78.5 [facility] [id number] [place] [address] [id number] Apr, Dental caries K02.9 [facility] [id number] [place] [address] [id number] Feb, Dental caries K02.9 and Encounter for dental examination Z01.20 [place] [address] 66556- 6017 Feb, [address] 47703- 5532 15 Feb, 2015 Diabetes E11.9 ; Insulin long-term use Z79.4 ; Diabetic polyneuropathy associated with diabetes mellitus due to underlying condition E08.42 and Barretts esophagus with high grade dysplasia K22.[address] 98907- 2636 Feb, [address] 37147- 1535 Jan, Pain in right hip M25.551 and Other chronic pain G89.29 [place] [id number] [place] [address] 07189- 4468 Jan, Impingement syndrome, shoulder, left M75.[address] 18544- 6621 Jan, Bipolar disorder, current episode depressed, moderate F31.32 ; Generalized anxiety disorder F41.1 and Agoraphobia with panic disorder F40.[address] 10416- 5730 Jan, [place] [address] 68414- 5615 Dec, [place] [address] 61393- 1924 Dec, [facility] [address] [address]- 5466 Dec, Right hip pain M25.551 and Left shoulder pain M25.512 [facility] [id number] [address]- 1386 Dec, Bipolar 1 disorder, depressed, moderate F31.32 ; BRITTANI ( generalized anxiety disorder) F41.1 and Panic disorder with agoraphobia F40.01 [facility] [id number] [place] [address] 23081- 5946 Dec, [facility] [id number] [place] [address] 97215- 3434 Dec, [facility] [id number] [place] [address] 11794- 9059 Nov, [facility] [id number] [place] [address] 96138- 8215 18 Nov, 2014 [facility] [id number] [place] [address] 46252- 9163 Nov, [facility] [id number] [place] [address] 42921- 3726 Nov, Diabetes 250.00 [facility] [id number] [place] [address] 03716- 1678 Oct, [facility] [id number] [place] [address] 50218- 0051 Oct, [facility] [address] [place] [address] 78507- 9095 Oct, [facility] [id number] [place] [address] 12023- 8257 Oct, [facility] [address] [address]- 1622 Oct, [facility] [id number] [place] [address] 60913- 5549 Oct, [facility] [address] [address]- 8902 Oct, Diabetes 250.00 ; Insomnia 780.52 and Forgetfulness 780.99 [facility] [address] [address]- 2295 Oct, Depressive disorder, not elsewhere classified 311 [facility] [address] [address]- 2603 Sep, [facility] [address] [address]- 6112 Sep, [facility] [id number] [address]- 2234 Sep, [facility] [id number] [address]- 5730 Sep, [facility] [id number] [address]- 6827 Sep, [facility] [address] [address]- 3175 Sep, [facility] [address] [address]- 8189 Sep, [facility] [id number] [address]- 9848 Aug, [facility] [id number] [id number] Aug, Dental examination V72.2 [facility] [address] 4448 Aug, [facility] [id number] 0722 Aug, [facility] [id number] 0672 July, [facility] [address] [address]- 2546 July, [facility] [place] [facility] [address] [id number] [place] [address]- 8119 July, [facility] [place] [facility] [address] [id number] [place] [address]- 4117 July, [facility] [place] [facility] [address] [id number] [place] [address]- 0897 Jun, [facility] [place] [facility] [address] [id number] [place] [address]- 1433 Jun, [facility] [place] [facility] [address] [id number] [place] [address]- 0677 May, [facility] [place] [facility] [address] [id number] [place] [address]- 8871 May, [facility] [place] [facility] [address] [id number] [place] [address]- 1103 May, [facility] [place] [facility] [address] [id number] [place] [address]- 1383 May, [facility] [place] [facility] [address] [id number] [place] [address]- 0386 May, [facility] [place] [facility] [address] [id number] [place] [address]- 6175 May, [facility] [place] [facility] [address] [id number] [place] [address]- 2143 16 May, 2014 [facility] [place] [facility] [address] [id number] [place] [address]- 5501 May, [facility] [place] [facility] [address] [id number] [place] [address]- 6278 Apr, [facility] [place] [facility] [address] [id number] [place] [address]- 8654 Apr, [facility] [place] [facility] [address] [id number] [place] [address]- 8324 Apr, [facility] [place] [facility] [address] [id number] [place] [address]- 7036 Apr, [facility] [place] [facility] [address] [id number] [place] [address]- 3143 Apr, [facility] [place] [facility] [address] [id number] [place] [address]- 3721 Apr, [facility] [place] [facility] [address] [id number] [place] [address]- 9050 Mar, [facility] [place] [facility] [address] [id number] [place] [address]- 3696 Mar, [facility] [place] [facility] [address] [id number] [place] [address]- 0180 Mar, [facility] [place] [facility] [address] [id number] [place] [address]- 7253 Mar, [facility] [place] [facility] [address] [id number] [place] [address]- 5782 Mar, [facility] [place] [facility] [address] [id number] [place] [address]- 7027 Mar, [facility] [place] [facility] [address] [id number] [place] [address]- 9564 Mar, [facility] [place] [facility] [address] [id number] [place] [address]- 6790 Mar, [facility] [place] [facility] [address] [id number] [place] [address]- 3224 Mar, [facility] [place] [facility] [address] [id number] [place] [address]- 3610 Mar, [facility] [place] [facility] [address] [id number] [place] [address]- 4922 Mar, [facility] [place] [facility] [address] [id number] [place] [address]- 6065 Mar, [facility] [place] [facility] [address] [id number] [place] [address]- 5261 Mar, [facility] [place] [facility] [address] [id number] [place] 6189 Mar, [facility] [place] [facility] [address] [id number] [place] [address]- 0176 Feb, [facility] [place] [facility] [address] [id number] [place] 5576 Feb, [facility] [place] [facility] [address] [id number] [place] [address]- 5004 Feb, [facility] [place] [facility] [address] [id number] [place] [address]- 2345 Feb, [facility] [place] [facility] [address] [id number] [place] [address]- 1168 Feb, [facility] [place] [facility] [address] [id number] [place] [address]- 8268 Feb, [facility] [place] [facility] [address] [id number] [place] [address]- 0400 16 Feb, 2014 [facility] [place] [facility] [address] [id number] [place] [address]- 5709 16 Feb, 2014 [facility] [place] [facility] [address] [id number] [place] [address]- 6439 16 Feb, 2014 [facility] [place] [facility] [address] [id number] [place] [address]- 2895 16 Feb, 2014 [facility] [place] [facility] [address] [id number] [place] [address]- 2442 10 Feb, 2014 [facility] [place] [facility] [address] [id number] [place] [address]- 4334 Feb, [facility] [place] [facility] [address] [id number] [place] [address]- 2353 Feb, [facility] [place] [facility] [address] [id number] [place] 2020 Feb, [facility] [place] [facility] [address] [id number] [place] [address]- 3947 Jan, [facility] [place] [facility] [address] [id number] [place] [address]- 2227 Jan, [facility] [place] [facility] [address] [id number] [place] [address]- 2241 Jan, [facility] [place] [facility] [address] [id number] [place] 6710 Jan, [facility] [place] [facility] [address] [id number] [place] [address]- 1325 Dec, [facility] [place] [facility] [address] [id number] [place] [address]- 2749 Dec, [facility] [place] [facility] [address] [id number] [place] [address]- 1498 Dec, [facility] [place] [facility] [address] [id number] [place] [address]- 9700 Dec, [facility] [place] [facility] [address] [id number] [place] [address]- 7320 Dec, [facility] [place] [facility] [address] [id number] [place] [address]- 7444 Dec, [facility] [place] [facility] [address] [facility] [id number] [place] [address]- 5862 Dec, [facility] [place] [facility] [address] [id number] [place] [address]- 9161 Dec, [facility] [place] [facility] [address] [id number] [place] [address]- 9200 30 Nov, 2013 [facility] [place] [facility] [address] [id number] [place] [address]- 6155 17 Nov, 2013 [facility] [place] [facility] [address] [id number] [place] [address]- 0057 17 Nov, 2013 [facility] [place] [facility] [address] [id number] [place] [address]- 6678 Nov, [facility] [place] [facility] [address] [id number] [place] [address]- 5112 Nov, [facility] [place] [facility] [address] [id number] [place] [address]- 3552 Oct, [facility] [place] [facility] [address] [id number] [place] [address]- 6191 Oct, [facility] [place] [facility] [address] [id number] [place] [address]- 5047 Sep, [facility] [place] [facility] [address] [id number] [place] [address]- 4183 Sep, [facility] [place] [facility] [address] [id number] [place] [address]- 2135 Sep, [facility] [place] [facility] [address] [id number] [place] [address]- 1031 Sep, [facility] [place] [facility] [address] [id number] [place] [address]- 8131 Sep, [facility] [place] [facility] [address] [id number] [place] [address] Sep, [facility] [place] [facility] [address] [id number] [place] [address] Sep, [facility] [place] [facility] [address] [id number] [place] [address] Sep, [facility] [place] [facility] [address] [id number] [place] [address] Sep, [facility] [place] [facility] [address] [id number] [place] [address] Sep, [facility] [place] [facility] [address] [id number] [place] [address] Sep, [facility] [place] [facility] [address] [id number] [place] [address] Sep, [facility] [place] [facility] [address] [id number] [place] [address] Sep, [facility] [address] [id number] [place] [address] Sep, [facility] [place] [facility] [address] [id number] [place] [address] July, [facility] [place] [facility] [address] [id number] [place] [address] July, [facility] [place] [facility] [address] [id number] [place] [address] July, [facility] [place] [facility] [address] [id number] [place] [address] July, [facility] [place] [facility] [address] [id number] [place] [address] July, [facility] [place] [facility] [address] [id number] [place] [address] July, [facility] [place] [facility] [address] [id number] [place] [address] July, [facility] [place] [facility] [address] [id number] [place] [address] July, [facility] [place] [facility] [address] [id number] [place] [address] Jun, [facility] [place] [facility] [address] [id number] [place] [address] Jun, [facility] [place] [facility] [address] [id number] [place] [address] Jun, [facility] [place] [facility] [address] [id number] [place] [address]- [address] Jun, [facility] [place] [facility] [address] [id number] [place] [address]- [address] Jun, [facility] [place] [facility] [address] [id number] [place] [address]- [address] Jun, [facility] [place] [facility] [address] [id number] [place] [address] 03 Jun, 2013 [facility] [place] [facility] [address] [id number] [place] [address] Jun, [facility] [place] [facility] [address] [id number] [place] [address] 27 May, 2013 [facility] [place] [facility] [address] [id number] [place] [address] 27 May, 2013 [facility] [place] [facility] [address] [id number] [place] [address] May, [facility] [place] [facility] [address] [id number] [place] [address] 21 May, 2013 [facility] [place] [facility] [address] [id number] [place] [address] 20 May, 2013 [facility] [place] [facility] [address] [id number] [place] [address]- [address] 20 May, 2013 [facility] [place] [facility] [address] [id number] [place] [address] 19 May, 2013 [facility] [place] [facility] [address] [id number] [place] [address] 19 May, 2013 [facility] [place] [facility] [address] [id number] [place] [address] 17 May, 2013 [facility] [place] [facility] [address] [id number] [place] [address] 17 May, 2013 [facility] [place] [facility] [address] [id number] [place] [address] 17 May, 2013 [facility] [place] [facility] [address] [id number] [place] [address] 12[address] 17 May, 2013 [facility] [place] [facility] [address] [id number] [place] [address] 12 May, 2013 [facility] [place] [facility] [address] [id number] [place] [address] May, [facility] [place] [facility] [address] [id number] [place] [address] 2002 May, [facility] [place] [facility] [address] [id number] [place] [address] May, [facility] [place] [facility] [address] [id number] [place] [address] 395[address] Apr, [facility] [place] [facility] [address] [id number] [place] [address] Apr, [facility] [place] [facility] [address] [id number] [place] [address] 299[address] Mar, [facility] [place] [facility] [address] [id number] [place] [address] 9[address] Mar, [facility] [place] [facility] [address] [id number] [place] [address] 0098 Mar, [facility] [place] [facility] [address] [id number] [place] [address] 65[address] Mar, [facility] [place] [facility] [address] [id number] [place] [address] 80[address] Mar, [facility] [place] [facility] [address] [id number] [place] [address] 56[address] Mar, [facility] [place] [facility] [address] [id number] [address] Feb, [facility] [place] [facility] [address] [id number] [address] 8976 Feb, [facility] [place] [facility] [address] [id number] [place] [address]- 0667 Feb, [facility] [place] [facility] [address] [id number] [place] [address] 2209 Feb, [facility] [place] [facility] [address] [id number] [place] [address] Feb, [facility] [place] [facility] [address] [id number] [place] [address] 6424 Feb, [facility] [place] [facility] [address] [id number] [place] [address] 6[address] Jan, [facility] [place] [facility] [address] [id number] [place] [address] Jan, [facility] [place] [facility] [address] [id number] [place] [address] 18[address] Jan, [facility] [place] [facility] [address] [id number] [place] [address] 5830 Jan, [facility] [place] [facility] [address] [id number] [place] [address]- 4692 Jan, [facility] [place] [facility] [address] [id number] [place] [address] 4996 Jan, [facility] [place] [facility] [address] [id number] [place] [address] Jan, [facility] [place] [facility] [address] [id number] [place] [address] 1744 Dec, [facility] [place] [facility] [address] [id number] [place] [address] Dec, [facility] [place] [facility] [address] [id number] [place] [address] Dec, [facility] [place] [facility] [address] [id number] [place] [address] Nov, [facility] [place] [facility] [address] [id number] [place] [address] Oct, [facility] [place] [facility] [address] [id number] [place] [address] Sep, [facility] [place] [facility] [address] [id number] [place] [address] 8899 Sep, [facility] [place] [facility] [address] [id number] [place] [address] 7[address] Sep, [facility] [place] [facility] [address] [id number] [place] [address]- 1267 Sep, [facility] [address] [id number] [place] [address] 2472 Sep, [facility] [address] [id number] [place] [address] 4025 Sep, [facility] [address] [id number] [place] [address] 3529 Aug, [facility] [address] [id number] [place] [address]- 0975 Aug, [facility] [address] [id number] [place] [address] 6[address] July, [facility] [address] [id number] [place] [address] 2928 July, [facility] [address] [id number] [place] [address] 4985 July, [facility] [address] [id number] [place] [address] 6016 July, [facility] [address] [id number] [place] [address]- 6071 Jun, [facility] [address] [id number] [place] [address] 9137 May, [facility] [address] [id number] [place] [address] 2545 May, [facility] [address] [id number] [place] [address]- 4[address] May, [facility] [place] [facility] [address] [id number] [place] [address] 1343 Mar, [facility] [place] [facility] [address] [id number] [place] [address] 7435 Mar, [facility] [address] [id number] [place] [address] 5638 Mar, [facility] [place] [facility] [address] [id number] [place] [address] 0576 Feb, [facility] [place] [facility] [address] [id number] [place] [address]- 3476 Feb, [facility] [place] [facility] [address] [id number] [place] Feb, [facility] [place] [facility] [address] [id number] [place] [address] 4756 Feb, [facility] [place] [facility] [address] [id number] [place] [address]- 7844 Feb, [facility] [place] [facility] [address] [id number] [place] [address]- 1565 Feb, [facility] [place] [facility] [address] [id number] [place] [address]- 4680 Feb, [facility] [place] [facility] [address] [id number] [place] [address] 1233 Feb, [facility] [place] [facility] [address] [id number] [place] [address]- 9926 Feb, [facility] [place] [facility] [address] [id number] [place] [address]- 5852 Feb, [facility] [place] [facility] [address] [id number] [place] [address] 9166 Jan, [facility] [place] [facility] [address] [id number] [place] [address]- 8911 Jan, [facility] [place] [facility] [address] [id number] [place] [address]- 7511 Jan, [facility] [place] [facility] [address] [id number] [place] [address]- 0178 Jan, [facility] [place] [facility] [address] [id number] [place] [address]- 9227 Jan, [facility] [place] [facility] [address] [id number] [place] [address]- 1712 Jan, [facility] [place] [facility] [address] [id number] [place] [address]- 8764 Jan, [facility] [place] [facility] [address] [id number] [place] [address]- 1816 Jan, [facility] [place] [facility] [address] [id number] [place] [address]- 0040 Jan, [facility] [place] [facility] [address] [id number] [place] [address]- 4011 Jan, [facility] [place] [facility] [address] [id number] [place] [address]- 7404 Dec, [facility] [place] [facility] [address] [id number] [place] [address]- 1527 Dec, [facility] [place] [facility] [address] [id number] [place] [address]- 8011 Nov, [facility] [place] [facility] [address] [id number] [place] [address]- 3872 24 Nov, 2011 [facility] [place] [facility] [address] [id number] [place] [address]- 1032 05 Nov, 2011 [facility] [place] [facility] [address] [id number] [place] [address]- 2068 Oct, [facility] [place] [facility] [address] [id number] [place] [address]- 8124 Oct, [facility] [place] [facility] [address] [id number] [place] [address]- 3090 Oct, [facility] [place] [facility] [address] [id number] [place] [address]- 4087 Oct, [facility] [place] [facility] [address] [id number] [place] [address]- 2396 Aug, [facility] [place] [facility] [address] [id number] [place] [address]- 6948 Aug, [facility] [address] [id number] [place] [address]- 3957 14 Aug, 2011 [facility] [place] [facility] [address] [id number] [place] [address]- 5290 07 Aug, 2011 [facility] [place] [facility] [address] [id number] [place] [address]- 3603 08 Jun, 2011 [facility] [place] [facility] [address] [id number] [place] [address]- 2156 07 May, 2011 [facility] [address] [id number] [place] [address]- 6500 06 May, 2011 [facility] [place] [facility] [address] [id number] [place] [address]- 8922 20 Apr, 2011 [facility] [place] [facility] [address] [id number] [place] [address]- 4507 20 Apr, 2011 [facility] [place] [facility] [address] [id number] [place] [address]- 0822 15 Apr, 2011 [facility] [place] [facility] [address] [id number] [place] [address]- 6591 14 Apr, 2011 [facility] [place] [facility] [address] [id number] [place] [address]- 2754 24 Mar, 2011 [facility] [place] [facility] [address] [id number] [place] [address]- 3349 Mar, [facility] [place] [facility] [address] [id number] [address]- 1239 19 Mar, 2011 [facility] [place] [facility] [address] [id number] [place] [address]- 0105 18 Mar, 2011 [facility] [place] [facility] [address] [id number] [place] [address]- 4423 13 Mar, 2011 [facility] [place] [facility] [address] [id number] [place] [address]- 7331 13 Mar, 2011 [facility] [place] [facility] [address] [id number] [place] [address]- 0168 27 Feb, 2011 [facility] [address] [id number] [place] [address]- 0466 Jan, [facility] [address] [id number] [place] [address] 2546 Jan, [facility] [address] [facility] [id number] [place] [address] 2546 Jan, [facility] [address] [id number] [place] [address] 2546 Jan, [facility] [address] [id number] [place] [address]- 8896 Jan, [facility] [address] [facility] [id number] [place] [address] Dec, [facility] [address] [facility] [id number] [place] [address]- 1614 May, [facility] [address] [id number] [place] [address]- 2894 14 Apr, 2010 [facility] [address] [facility] [id number] [place] [address] Mar, [facility] [address] [facility] [id number] [place] [address]- 1132 Feb, [facility] [address] [facility] [id number] [place] [address] 2546 Feb, [facility] [address] [facility] [id number] [place] [address]- 2546 14 Feb, 2010 [facility] [address] [facility] [id number] [place] [address] 2546 13 Feb, 2010 [facility] [address] [facility] [id number] [place] [address]- 2546 Dec, [facility] [address] [facility] [id number] [place] [address] 11 Dec, 2009 IMMUNIZATIONS No Known Immunizations SOCIAL HISTORY Never Assessed REASON FOR VISIT shoulder pain f/u. Consult Saman Voss RT(R) PLAN OF CARE Activity Details Follow Up AFTER MRI Reason: VITAL SIGNS MEDICATIONS Unknown Medications RESULTS No [...]
--- OUTSIDE RECORDS SUMMARY | 2017-12-04 10:11 | XMS REPORT ---
Author Author JYOTSNA EMERY [facility] Address [address] [place] [address] Care Team Providers Care House Registry Rn Name Role Phone JYOTSNA EMERY Unavailable PROBLEMS Type Condition ICD9-CM Code XPX09-GL Code Onset Dates Condition Status SNOMED Code Problem Diabetes E11.9 Active 641353735 Problem Type 2 diabetes mellitus with hyperglycemia E11.65 Active 65759382 Problem Essential hypertension I10 Active 60235781 Problem Diabetic polyneuropathy associated with diabetes mellitus due to underlying condition E08.42 Active 08211428 Problem Rotator cuff syndrome of right shoulder M75.101 Active [id number] Problem Slow transit constipation K59.01 Active 63070284 Problem FCI current use of insulin Z79.4 Active 459352606 Problem Constipation, unspecified constipation type K59.00 Active 15828244 Problem Irritable bowel syndrome, unspecified type K58.9 Active 28995925 Problem Barretts esophagus without dysplasia K22.70 Active 438609095 Problem 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 Nov, Active 5223827 Problem Herniation of intervertebral disc at C5-C6 level M50.222 Active 141680909 Problem Gastroparesis K31.84 Active 315808866 Problem Bipolar disorder, current episode depressed, moderate F31.32 Active 471260619 Problem Gastro-esophageal reflux disease without esophagitis K21.9 Active 431906490 Problem Panic disorder with agoraphobia F40.01 Active 30924640 Problem Type 2 diabetes mellitus with diabetic autonomic (poly)neuropathy E11.43 Active 142915603 Problem BRITTANI (generalized anxiety disorder) F41.1 Active 11112041 Problem Obstructive sleep apnea syndrome G47.33 Active 71050852 ALLERGIES No Information ENCOUNTERS Encounter Location Date Diagnosis [facility] [address] [address] July, [facility] [address] [address] Jun, Type 2 diabetes mellitus with diabetic autonomic (poly) neuropathy E11.43 and Type 2 diabetes mellitus with hyperglycemia E11.65 [place] [address] [address]- 18[address] May, [place] [address] 35943- 3374 May, Bipolar disorder, current episode depressed, moderate F31.32 [facility] [address] [address]199 May, [place] [address] 82484- 1115 May, Diabetic polyneuropathy associated with diabetes mellitus due to underlying condition E08.42 [place] [address] 04782- 0264 Apr, [place] [address] 02930- 5635 Feb, Ganglion cyst of dorsum of right wrist M67.431 [place] [address] 93410- 5603 Jan, Other cyst of bone, right forearm M85.631 [place] [address] 77359- 4362 Jan, [place] [address] 75076- 1356 Jan, Diabetes E11.9 and Right forearm pain M79.631 [place] [address] 54541- 4153 Dec, Encounter for immunization Z23 [place] [address] 12656- 8128 Nov, [place] [address] 63981- 4238 Nov, Type 2 diabetes mellitus with hyperglycemia E11.65 [facility] [id number] [place] [address] 15666- 4313 Nov, Severe pain of right shoulder M25.511 [facility] [address] [place] [id number] [place] [address] 96451- 9523 Oct, Diabetes E11.9 [facility] [address] [place] [id number] [place] [address] 94600- 6913 Oct, Diabetes E11.9 [facility] [address] [place] [id number] [place] [address] 96748- 2538 Oct, [facility] [address] [place] [id number] [place] [address] 63425- 8068 Oct, [facility] [address] [place] [id number] [place] [address] 82930- 8352 Oct, Rotator cuff syndrome of right shoulder M75.101 [facility] [address] [place] [id number] [place] [address] 94077- 1911 Oct, Diabetes E11.9 [facility] [address] [place] [id number] [place] [address] 41881- 3558 Sep, Type 2 diabetes mellitus with hyperglycemia E11.65 ; Obstructive sleep apnea syndrome G47.33 and Constipation, unspecified constipation type K59.00 [facility] [address] [place] [id number] [place] [address] 54215- 3832 Aug, [facility] [address] [place] [id number] [place] [address] 36149- 8658 Aug, [facility] [address] [place] [id number] [place] [address] 48665- 4572 Aug, Type 2 diabetes mellitus with diabetic autonomic (poly) neuropathy E11.43 [facility] [address] [place] [id number] [place] [address] 99009- 8439 July, Type 2 diabetes mellitus with hyperglycemia E11.65 [facility] [address] [place] [id number] [place] [address] 29952- 0440 Jun, Slow transit constipation K59.01 [facility] [address] [place] [id number] [place] [address] 55250- 1630 May, [facility] [address] 49367- 3497 May, Diabetes E11.9 [place] [address] 80503- 4254 May, [facility] 07990 -0550 Apr, [place] [address] 75097- 4253 Apr, Gastroenteritis K52.9 [facility] [place] [address] 91920 -7323 Apr, Abdominal pain, unspecified location R10.9 ; Gastroenteritis K52.9 ; Type 2 diabetes mellitus with hyperglycemia E11.65 and FCI current use of insulin Z79.4 [place] [address] [place] [id number] [place] [address] 50655- 8518 Apr, [place] [address] 21683- 9126 Apr, [place] [address] [place] [id number] [place] [address] 81878- 1424 Apr, Diabetes E11.9 ; Gastroparesis K31.84 ; Generalized abdominal pain R10.84 ; Essential hypertension I10 ; Bronchitis J40 and Other fatigue R53.83 [facility] [address] [place] [id number] [place] [address] 13504 -3468 Mar, [facility] [address] 05169 -2736 Mar, [facility] [place] [address] [place] [id number] [place] [address] 58738 -0977 Mar, Laceration of scalp without foreign body, initial encounter S01.01XA ; Laceration of face, initial encounter S01.81XA and Encounter for immunization Z23 [place] [address] [place] [id number] [place] [address] 32566- 9084 Mar, Type 2 diabetes mellitus with diabetic autonomic (poly) neuropathy E11.43 [place] [address] [place] [id number] [place] [address] 45114- 5156 Feb, [place] [address] 40435- 9061 Feb, Internal hemorrhoids K64.8 and Obstructive sleep apnea syndrome G47.[address] 6[address]13- 5401 Feb, SI (sacroiliac) joint dysfunction M53.3 [place] [id number] [place] [address] 03120- 7123 Jan, [place] [address] 43963- 7207 Dec, Gastroparesis K31.[address] 98388- 3714 Dec, [place] [address] [place] [id number] [place] [address] 68818- 0580 Dec, Right hip pain M25.551 ; Nose congested R09.81 and Encounter for immunization Z23 [place] [address] [place] [id number] [place] [address] 60573- 6035 Nov, Diabetes E11.9 ; Gastroparesis K31.84 ; Type 2 diabetes mellitus with diabetic autonomic (poly)neuropathy E11.43 and Obstructive sleep apnea syndrome G47.33 [place] [address] 33989- 9255 Oct, [place] [address] [place] [id number] [place] [address] 56578- 6664 Aug, [place] [id number] [place] [address] 94121- 2614 July, Gastro-esophageal reflux disease without esophagitis K21.9 [facility] [address] 11370- 7837 July, [facility] [address] 00501- 0060 July, Diabetes E11.9 [facility] [address] 24526- 7919 July, Diabetes E11.9 ; Obstructive sleep apnea syndrome G47.33 and Neuropathy G62.9 [place] [address] 57189- 7674 July, Bipolar disorder, current episode depressed, moderate F31.32 ; BRITTANI (generalized anxiety disorder) F41.1 and Panic disorder with agoraphobia F40.01 [place] [address] 21066- 1652 Jun, [facility] [address] 25552- 8792 Jun, [place] [address] 81972- 4466 Jun, [facility] [address] [place] [id number] [place] [address] 35166- 8701 Jun, [facility] [address] [place] [id number] [place] [address] [id number] May, Encounter for dental examination and cleaning without abnormal findings Z01.20 [facility] [address] [place] [id number] [place] [address] 61306- 3814 Apr, [facility] [address] 24983- 1391 Apr, [facility] [address] [place] [id number] [place] [address] 90064- 3425 Apr, Bipolar disorder, current episode depressed, moderate F31.32 ; BRITTANI (generalized anxiety disorder) F41.1 and Panic disorder with agoraphobia F40.01 [facility] [address] [place] [id number] [place] [address] 08411- 3315 04 Apr, 2015 Hyperlipidemia, unspecified E78.5 [facility] [address] [place] [address] [id number] Apr, Dental caries K02.9 [facility] [address] [id number] Feb, Dental caries K02.9 and Encounter for dental examination Z01.20 [place] [address] 42229- 8668 Feb, [place] [address] 06105- 4355 Feb, Diabetes E11.9 ; Insulin long-term use Z79.4 ; Diabetic polyneuropathy associated with diabetes mellitus due to underlying condition E08.42 and Barretts esophagus with high grade dysplasia K22.711 [place] [address] [place] [id number] [place] [address] 66832- 0324 Feb, [place] [address] 00381- 0038 Jan, Pain in right hip M25.551 and Other chronic pain G89.29 [place] [address] [place] [id number] [place] [address] 90321- 8386 Jan, Impingement syndrome, shoulder, left M75.42 [place] [address] [place] [id number] [place] [address] 96264- 3435 Jan, Bipolar disorder, current episode depressed, moderate F31.32 ; Generalized anxiety disorder F41.1 and Agoraphobia with panic disorder F40.01 [place] [address] [place] [id number] [place] [address] 30378- 3367 Jan, [place] [address] 39361- 8389 Dec, [facility] [address] [place] [address] 32087- 8726 Dec, [facility] [address] [place] [id number] [place] [address] 48016- 0712 Dec, Right hip pain M25.551 and Left shoulder pain M25.512 [facility] [address] [place] [id number] [place] [address] 876503- 4106 Dec, Bipolar 1 disorder, depressed, moderate F31.32 ; BRITTANI ( generalized anxiety disorder) F41.1 and Panic disorder with agoraphobia F40.01 [facility] [address] [place] [id number] [place] [address] 700801- 7542 Dec, [facility] [address] [place] [id number] [place] [address] 60978- 7082 Dec, [facility] [address] [place] [id number] [place] [address] 97813- 7203 Nov, [facility] [address] [place] [id number] [place] [address] 00497- 4857 18 Nov, 2014 [facility] [address] [place] [id number] [place] [address] 86348- 3805 Nov, [facility] [address] [place] [id number] [place] [address] 90797- 4779 Nov, Diabetes 250.00 [facility] [address] [place] [id number] [place] [address] 02397- 2242 Oct, [facility] [address] [place] [id number] [place] [address] 17679- 8035 Oct, [facility] [address] [place] [id number] [place] [address] 46721535- 5622 Oct, [facility] [address] [place] [address] 12484- 3883 Oct, [facility] [address] [place] [id number] [place] [address] 57666- 1304 Oct, [facility] [address] [address]- 1430 Oct, [facility] [address] [place] [id number] [place] [address] 233749- 0123 Oct, Diabetes 250.00 ; Insomnia 780.52 and Forgetfulness 780.99 [facility] [address] [place] [id number] [place] [address] 44164- 4334 Oct, Depressive disorder, not elsewhere classified 311 [facility] [address] [place] [id number] [place] [address] 41741- 9770 Sep, [facility] [address] [place] [id number] [place] [address] 00891- 8042 Sep, [facility] [address] [place] [id number] [place] [address] 19944- 6323 Sep, [facility] [address] [place] [id number] [place] [address] 11005- 4077 Sep, [facility] [address] [place] [address] 57702- 8467 Sep, [facility] [address] [place] [id number] [place] [address] 56003- 7851 Sep, [facility] [address] [address]- 2913 Sep, [facility] [address] [place] [address] 67352- 6147 Aug, [facility] [address] [id number] Aug, Dental examination V72.2 [facility] [address] [place] [id number] [place] [address] 56744- 8747 Aug, [facility] [address] [address]- 2248 Aug, [facility] [address] [place] [id number] [place] [address] 46106- 1700 July, [facility] [address] [id number] [place] [address]- 2716 July, [facility] [place] [facility] [address] [id number] [place] [address]- 9640 July, [facility] [place] [facility] [address] [facility] [id number] [place] [address]- 6660 July, [facility] [place] [facility] [address] [id number] [place] [address]- 8815 Jun, [facility] [place] [facility] [address] [id number] [place] [address]- 9260 Jun, [facility] [place] [facility] [address] [id number] [place] [address]- 7866 May, [facility] [place] [facility] [address] [facility] [id number] [place] [address]- 4513 May, [facility] [place] [facility] [address] [facility] [id number] [place] [address]- 1428 May, [facility] [place] [facility] [address] [id number] [place] [address]- 2565 May, [facility] [place] [facility] [address] [facility] [id number] [place] [address]- 5007 May, [facility] [place] [facility] [address] [id number] [place] [address]- 1492 May, [facility] [place] [facility] [address] [facility] [id number] [address]- 9764 16 May, 2014 [facility] [place] [facility] [address] [id number] [place] [address]- 8265 May, [facility] [place] [facility] [address] [facility] [id number] [place] [address]- 8925 Apr, [facility] [place] [facility] [address] [facility] [id number] [place] [address]- 8120 Apr, [facility] [place] [facility] [address] [id number] [place] [address]- 6417 Apr, [facility] [place] [facility] [address] [id number] [place] [address]- 0966 Apr, [facility] [place] [facility] [address] [id number] [place] [address]- 1466 Apr, [facility] [place] [facility] [address] [id number] [place] [address]- 3100 Apr, [facility] [place] [facility] [address] [id number] [place] [address]- 9634 Mar, [facility] [place] [facility] [address] [id number] [place] [address]- 5643 Mar, [facility] [place] [facility] [address] [id number] [place] [address]- 9823 Mar, [facility] [place] [facility] [address] [id number] [place] [address]- 9969 Mar, [facility] [place] [facility] [address] [id number] [place] [address]- 2098 Mar, [facility] [place] [facility] [address] [id number] [place] [address]- 4796 Mar, [facility] [place] [facility] [address] [id number] [place] [address]- 7802 Mar, [facility] [place] [facility] [address] [id number] [place] [address]- 6383 Mar, [facility] [place] [facility] [address] [id number] [place] [address]- 4466 Mar, [facility] [place] [facility] [address] [id number] [place] [address]- 4743 Mar, [facility] [place] [facility] [address] [id number] [place] [address]- 0931 Mar, [facility] [place] [facility] [address] [id number] [place] [address]- 2938 Mar, [facility] [place] [facility] [address] [id number] [place] [address]- 7740 Mar, [facility] [place] [facility] [address] [id number] [place] 9224 Mar, [facility] [place] [facility] [address] [id number] [place] [address]- 4085 Feb, [facility] [place] [facility] [address] [id number] [place] [address]- 8595 30 Feb, 2014 [facility] [place] [facility] [address] [id number] [place] [address]- 8472 Feb, [facility] [place] [facility] [address] [id number] [place] [address]- 8417 Feb, [facility] [place] [facility] [address] [id number] [place] [address]- 6439 Feb, [facility] [place] [facility] [address] [id number] [place] [address]- 2885 Feb, [facility] [place] [facility] [address] [id number] [place] [address]- 4641 16 Feb, 2014 [facility] [place] [facility] [address] [id number] [place] [address]- 4392 16 Feb, 2014 [facility] [place] [facility] [address] [id number] [place] [address]- 5895 16 Feb, 2014 [facility] [place] [facility] [address] [id number] [place] [address]- 6960 16 Feb, 2014 [facility] [place] [facility] [address] [id number] [place] [address]- 3945 10 Feb, 2014 [facility] [place] [facility] [address] [id number] [place] [address]- 0630 10 Feb, 2014 [facility] [place] [facility] [address] [id number] [place] [address]- 4551 04 Feb, 2014 [facility] [place] [facility] [address] [id number] [place] [address] 2541 Feb, [facility] [place] [facility] [address] [id number] [place] [address]- 4519 Jan, [facility] [place] [facility] [address] [id number] [place] [address] 2546 Jan, [facility] [place] [facility] [address] [id number] [place] [address] 2541 Jan, [facility] [place] [facility] [address] [id number] [place] [address] 2544 Jan, [facility] [place] [facility] [address] [id number] [place] [address]- 0146 Dec, [facility] [place] [facility] [address] [id number] [place] [address]- 2258 Dec, [facility] [place] [facility] [address] [id number] [place] [address]- 2162 Dec, [facility] [place] [facility] [address] [id number] [place] [address]- 5818 Dec, [facility] [place] [facility] [address] [id number] [place] [address]- 3055 Dec, [facility] [place] [facility] [address] [id number] [place] [address]- 8415 Dec, [facility] [place] [facility] [address] [id number] [place] [address]- 7710 Dec, [facility] [place] [facility] [address] [id number] [place] [address]- 5211 Dec, [facility] [place] [facility] [address] [id number] [place] [address] 2543 Nov, [facility] [place] [facility] [address] [id number] [place] [address]- 2546 Nov, [facility] [place] [facility] [address] [id number] [place] [address]- 4808 Nov, [facility] [place] [facility] [address] [id number] [place] [address]- 4437 Nov, [facility] [place] [facility] [address] [id number] [place] [address]- 9057 Nov, [facility] [place] [facility] [address] [id number] [place] 4000 Oct, [facility] [place] [facility] [address] [id number] [place] [address]- 9389 Oct, [facility] [place] [facility] [address] [id number] [place] [address]- 4417 Sep, [facility] [place] [facility] [address] [id number] [place] [address]- 3911 Sep, [facility] [place] [facility] [address] [id number] [place] [address]- 1474 Sep, [facility] [place] [facility] [address] [id number] [place] [address]- 5445 Sep, [facility] [place] [facility] [address] [id number] [place] [address]- 9062 Sep, [facility] [place] [facility] [address] [id number] [place] [address]- 4424 Sep, [facility] [place] [facility] [address] [id number] [place] [address]- 6662 Sep, [facility] [place] [facility] [address] [id number] [place] [address] Sep, [facility] [place] [facility] [address] [id number] [place] [address] Sep, [facility] [place] [facility] [address] [id number] [place] [address] Sep, [facility] [place] [facility] [address] [id number] [place] [address] Sep, [facility] [place] [facility] [address] [id number] [place] [address] Sep, [facility] [place] [facility] [address] [id number] [place] [address] Sep, [facility] [place] [facility] [address] [id number] [place] [address] Sep, [facility] [place] [facility] [address] [id number] [place] [address] 2005 July, [facility] [place] [facility] [address] [id number] [place] [address] July, [facility] [place] [facility] [address] [id number] [id number] [address] July, [facility] [place] [facility] [address] [id number] [place] [address] July, [facility] [place] [facility] [address] [id number] [place] [address] July, [facility] [place] [facility] [address] [id number] [place] [address] July, [facility] [place] [facility] [address] [id number] [place] [address] July, [facility] [place] [facility] [address] [id number] [place] [address] July, [facility] [place] [facility] [address] [id number] [place] [address] Jun, [facility] [place] [facility] [address] [id number] [place] [address] Jun, [facility] [place] [facility] [address] [id number] [place] [address] Jun, [facility] [place] [facility] [address] [id number] [place] [address]- [address] Jun, [facility] [place] [facility] [address] [id number] [place] [address] Jun, [facility] [place] [facility] [address] [id number] [place] [address] Jun, [facility] [place] [facility] [address] [id number] [place] [address] Jun, [facility] [place] [facility] [address] [id number] [place] [address]- [address] Jun, [facility] [place] [facility] [address] [id number] [place] [address]- [address] 27 May, 2013 [facility] [place] [facility] [address] [id number] [place] [address]- 2017 27 May, 2013 [facility] [place] [facility] [address] [id number] [place] [address] May, [facility] [place] [facility] [address] [id number] [place] [address]- [address] May, [facility] [place] [facility] [address] [id number] [place] [address]- [address] 20 May, 2013 [facility] [place] [facility] [address] [id number] [place] [address] 20 May, 2013 [facility] [place] [facility] [address] [id number] [place] [address]- [address] 19 May, 2013 [facility] [place] [facility] [address] [id number] [place] [address]- [address] 19 May, 2013 [facility] [place] [facility] [address] [id number] [place] [address]- 4760 17 May, 2013 [facility] [place] [facility] [address] [id number] [place] [address] 17 May, 2013 [facility] [place] [facility] [address] [id number] [place] [address]- [address] 17 May, 2013 [facility] [place] [facility] [address] [id number] [place] [address]- [address] 17 May, 2013 [facility] [place] [facility] [address] [id number] [place] [address]- 268[address] May, [facility] [place] [facility] [address] [id number] [place] [address]- [address] May, [facility] [place] [facility] [address] [id number] [place] [address]- [address] May, [facility] [place] [facility] [address] [id number] [place] [place] [address] May, [facility] [place] [facility] [address] [id number] [place] [address] Apr, [facility] [place] [facility] [address] [id number] [place] [address] Apr, [facility] [place] [facility] [address] [id number] [place] [address] Mar, [facility] [place] [facility] [address] [id number] [place] [address] Mar, [facility] [place] [facility] [address] [id number] [place] [address] Mar, [facility] [place] [facility] [address] [id number] [place] [address] Mar, [facility] [place] [facility] [address] [id number] [place] [address] Mar, [facility] [place] [facility] [address] [id number] [place] [address] 6918 Mar, [facility] [place] [facility] [address] [id number] [place] [address]304 Feb, [facility] [place] [facility] [address] [id number] [place] [address] Feb, [facility] [place] [facility] [address] [id number] [id number] [address] Feb, [facility] [place] [facility] [address] [id number] [place] [address] Feb, [facility] [place] [facility] [address] [id number] [place] [address] 2548 Feb, [facility] [address] [id number] [place] [address] 99[address] Feb, [facility] [place] [facility] [address] [id number] [place] [address] Jan, [facility] [address] [id number] [place] [address] 6651 Jan, [facility] [place] [facility] [address] [id number] [place] [address]- 1061 Jan, [facility] [address] [id number] [place] [address]- 4177 Jan, [facility] [place] [facility] [address] [id number] [place] [address]- 3472 Jan, [facility] [place] [facility] [address] [id number] [place] [address]- [address]35 Jan, [facility] [address] [id number] [place] [address]115 Jan, [facility] [place] [facility] [address] [id number] [place] [address]- [address]296 Dec, [facility] [address] [id number] [place] [address]323 Dec, [facility] [place] [facility] [address] [id number] [place] [address] 46[address] Dec, [facility] [place] [facility] [address] [id number] [place] [address]- [address]41 Nov, [facility] [place] [facility] [address] [id number] [place] [address]- [address]44 Oct, [facility] [place] [facility] [address] [id number] [place] [address]- 2546 Sep, [facility] [place] [facility] [address] [id number] [place] [address]- [address]282 Sep, [facility] [address] [id number] [place] [address]- 3937 Sep, [facility] [place] [facility] [address] [id number] [place] [address]- [address]141 Sep, [facility] [place] [facility] [address] [id number] [place] [address]- 9096 Sep, [facility] [place] [facility] [address] [id number] [place] [address]- 9017 Sep, [facility] [address] [id number] [place] [address]- 9850 Aug, [facility] [place] [facility] [address] [id number] [place] [address]- [address]245 Aug, [facility] [place] [facility] [address] [id number] [place] [address]- 6[address] July, [facility] [place] [facility] [address] [id number] [place] [address] 2931 July, [facility] [place] [facility] [address] [id number] [place] [address]- 2988 July, [facility] [place] [facility] [address] [id number] [place] [address] 8365 July, [facility] [place] [facility] [address] [id number] [place] [address]- 9338 Jun, [facility] [place] [facility] [address] [id number] [place] [address] May, [facility] [place] [facility] [address] [id number] [place] [address] 0437 May, [facility] [place] [facility] [address] [id number] [place] [address] 1515 May, [facility] [place] [facility] [address] [id number] [place] [address] 6649 Mar, [facility] [place] [facility] [address] [id number] [place] [address] 6842 Mar, [facility] [address] [id number] [place] [address]- 1014 Mar, [facility] [place] [facility] [address] [id number] [place] [address]- 2655 Feb, [facility] [place] [facility] [address] [id number] [place] [address]- 1066 Feb, [facility] [place] [facility] [address] [id number] [place] [address]- 9403 Feb, [facility] [place] [facility] [address] [id number] [place] [address]- 2277 Feb, [facility] [place] [facility] [address] [id number] [place] [address]- 0199 Feb, [facility] [address] [id number] [place] [address]- 8465 Feb, [facility] [place] [facility] [address] [id number] [place] [address]- 3869 Feb, [facility] [place] [facility] [address] [id number] [place] [address]- 5655 Feb, [facility] [place] [facility] [address] [id number] [place] [address]- 2935 Feb, [facility] [place] [facility] [address] [id number] [place] [address]- 3624 Feb, [facility] [place] [facility] [address] [id number] [place] [address]- 0416 Jan, [facility] [place] [facility] [address] [id number] [place] [address] 6385 Jan, [facility] [place] [facility] [address] [id number] [place] [address]- 9662 Jan, [facility] [place] [facility] [address] [id number] [place] [address]- 1672 Jan, [facility] [place] [facility] [address] [id number] [place] [address]- 6911 Jan, [facility] [place] [facility] [address] [id number] [place] [address]- 9801 Jan, [facility] [place] [facility] [address] [id number] [place] [address]- 0371 Jan, [facility] [place] [facility] [address] [id number] [place] [address]- 2810 Jan, [facility] [place] [facility] [address] [id number] [place] [address]- 5143 Jan, [facility] [place] [facility] [address] [id number] [place] [address]- 3369 Jan, [facility] [place] [facility] [address] [id number] [place] [address]- 3258 Dec, [facility] [place] [facility] [address] [id number] [place] [address]- 9207 Dec, [facility] [place] [facility] [address] [id number] [place] [address]- 1820 Nov, [facility] [place] [facility] [address] [id number] [place] [address]- 0927 24 Nov, 2011 [facility] [place] [facility] [address] [id number] [place] [address]- 4889 05 Nov, 2011 [facility] [place] [facility] [address] [id number] [place] [address]- 1611 Oct, [facility] [place] [facility] [address] [id number] [place] [address]- 8179 Oct, [facility] [place] [facility] [address] [id number] [place] [address]- 0336 Oct, [facility] [place] [facility] [address] [id number] [place] [address]- 1076 Oct, [facility] [place] [facility] [address] [id number] [place] [address]- 8768 18 Aug, 2011 [facility] [place] [facility] [address] [id number] [place] [address]- 9078 15 Aug, 2011 [facility] [place] [facility] [address] [id number] [place] [address]- 2725 14 Aug, 2011 [facility] [place] [facility] [address] [id number] [place] [address]- 0515 07 Aug, 2011 [facility] [place] [facility] [address] [id number] [place] [address]- 9706 08 Jun, 2011 [facility] [place] [facility] [address] [id number] [place] [address]- 7499 May, [facility] [place] [facility] [address] [id number] [place] [address]- 8446 06 May, 2011 [facility] [place] [facility] [address] [id number] [place] [address]- 3060 20 Apr, 2011 [facility] [place] [facility] [address] [id number] [place] [address]- 5270 20 Apr, 2011 [facility] [place] [facility] [address] [id number] [place] [address]- 6025 15 Apr, 2011 [facility] [place] [facility] [address] [id number] [place] [address]- 6470 14 Apr, 2011 [facility] [place] [facility] [address] [id number] [place] [address]- 7598 Mar, [facility] [place] [facility] [address] [id number] [place] [address]- 9084 Mar, [facility] [place] [facility] [address] [id number] [place] [address]- 1632 Mar, [facility] [place] [facility] [address] [id number] [place] [address]- 2271 18 Mar, 2011 [facility] [place] [facility] [address] [id number] [place] [address]- 4736 Mar, [facility] [place] [facility] [address] [id number] [place] [address]- 3326 13 Mar, 2011 [facility] [address] [id number] [place] [address]- 1708 27 Feb, 2011 [facility] [place] [facility] [address] [id number] [place] [address]- 5141 23 Jan, 2011 [facility] [address] [id number] [place] [address]- 1365 15 Jan, 2011 [facility] [place] [facility] [address] [id number] [place] [address]- 7773 Jan, [facility] [address] [id number] [place] [address]- 7842 Jan, [facility] [place] [facility] [address] [id number] [place] [address]- 0403 Jan, [facility] [address] [id number] [place] [address]- 2534 Dec, [facility] [address] [id number] [place] [address]- 4197 May, [facility] [place] [facility] [address] [id number] [place] [address]- 2785 14 Apr, 2010 [facility] [address] [id number] [place] [address]- 3196 10 Mar, 2010 [facility] [address] [id number] [place] [address]- 9359 Feb, [facility] [place] [facility] [address] [id number] [place] [address]- 6889 23 Feb, 2010 [facility] [place] [facility] [address] [id number] [place] [address]- 0789 14 Feb, 2010 [facility] [place] [facility] [address] [id number] [place] [address]- 9523 13 Feb, 2010 [facility] [place] [facility] [address] [id number] [place] [id number] Dec, [facility] [address] [facility] [id number] [place] [address]- [address] Dec, IMMUNIZATIONS No Known Immunizations SOCIAL HISTORY [...]
--- OUTSIDE RECORDS SUMMARY | 2017-12-04 10:12 | XMS REPORT ---
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
--- OUTSIDE RECORDS SUMMARY | 2017-12-04 10:12 | XMS REPORT ---
Author Author JYOTSNA EMERY Organization [facility] Address [facility] [place] [address] Care Team Providers Care Travel Registered Nurse Pacu Name Role Phone JYOTSNA EMERY Unavailable PROBLEMS Type Condition ICD9-CM Code TIF06-GL Code Onset Dates Condition Status SNOMED Code Problem Diabetes E11.9 Active 991111691 Problem Type 2 diabetes mellitus with hyperglycemia E11.65 Active 09937147 Problem Essential hypertension I10 Active 60864437 Problem Diabetic polyneuropathy associated with diabetes mellitus due to underlying condition E08.42 Active 83282320 Problem Rotator cuff syndrome of right shoulder M75.101 Active [id number] Problem Slow transit constipation K59.01 Active 75426137 Problem custodial current use of insulin Z79.4 Active 713696543 Problem Constipation, unspecified constipation type K59.00 Active 28751556 Problem Irritable bowel syndrome, unspecified type K58.9 Active 94958128 Problem Barretts esophagus without dysplasia K22.70 Active 468652716 Problem 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 Nov, Active 5949815 Problem Gastroparesis K31.84 Active 231586582 Problem Bipolar disorder, current episode depressed, moderate F31.32 Active 027670953 Problem Gastro-esophageal reflux disease without esophagitis K21.9 Active 810842331 Problem Panic disorder with agoraphobia F40.01 Active 69476354 Problem Type 2 diabetes mellitus with diabetic autonomic (poly)neuropathy E11.43 Active 678667572 Problem BRITTANI (generalized anxiety disorder) F41.1 Active 34388623 Problem Obstructive sleep apnea syndrome G47.33 Active 66277378 ALLERGIES Substance Reaction Event Type Date Status Codeine Sulfate hives Drug Allergy Aug, Active Advil rash Drug Allergy Aug, Active All nsaids Unknown Non Drug Allergy Aug, Active ENCOUNTERS Encounter Location Date Diagnosis [facility] [address] [facility] [id number] [address] Jun, [facility] [address] [address] May, [place] [address] [address]- [address] May, Bipolar disorder, current episode depressed, moderate F31.32 [facility] WALK IN [facility] [address] [address] May, [facility] [address] [address]- 3881 May, Diabetic polyneuropathy associated with diabetes mellitus due to underlying condition E08.42 [place] [address] [address]201- 9611 Apr, [place] [address] 09128- 3644 Feb, Ganglion cyst of dorsum of right wrist M67.431 [place] [address] 38825- 5124 Jan, Other cyst of bone, right forearm M85.631 [place] [address] 98692- 0077 Jan, [place] [address] 97986- 5812 Jan, Diabetes E11.9 and Right forearm pain M79.631 [place] [address] 51098- 1412 Dec, Encounter for immunization Z23 [place] [address] 26850- 6622 Nov, [place] [address] 47951- 9979 Nov, Type 2 diabetes mellitus with hyperglycemia E11.65 [place] [address] 90749- 6329 Nov, Severe pain of right shoulder M25.511 [facility] [address] [place] [id number] [place] [address] 65657- 1462 Oct, Diabetes E11.9 [facility] [address] [place] [id number] [place] [address] 26494- 5537 Oct, Diabetes E11.9 [facility] [address] [place] [id number] [place] [address] 63751- 9374 Oct, [facility] [address] [place] [id number] [place] [address] 65634- 6191 Oct, [facility] [address] 48045- 8391 Oct, Rotator cuff syndrome of right shoulder M75.101 [place] [address] [place] [id number] [place] [address] 94430- 6921 Oct, Diabetes E11.9 [facility] [address] [place] [id number] [place] [address] 16345- 8776 Sep, Type 2 diabetes mellitus with hyperglycemia E11.65 ; Obstructive sleep apnea syndrome G47.33 and Constipation, unspecified constipation type K59.00 [facility] [address] [place] [id number] [place] [address] 67776- 9231 Aug, [facility] [address] [place] [id number] [place] [address] 95536- 5862 Aug, [facility] [address] [place] [id number] [place] [address] 72434- 1513 Aug, Type 2 diabetes mellitus with diabetic autonomic (poly) neuropathy E11.43 [facility] [address] [place] [id number] [place] [address] 11093- 9820 July, Type 2 diabetes mellitus with hyperglycemia E11.65 [facility] [address] [place] [id number] [place] [address] 74276- 3846 Jun, Slow transit constipation K59.01 [facility] [address] 08121- 9542 May, [place] [address] [address] 5985 May, Diabetes E11.9 [place] [id number] [place] [address] 93029- 7125 May, [facility] WALK IN [place] [address] [place] [id number] [place] [address] 31350 -8512 Apr, [place] [address] [place] [id number] [place] [address] 12075- 6082 Apr, Gastroenteritis K52.9 [facility] WALK IN [place] [id number] [place] [address] 74918 -1672 Apr, Abdominal pain, unspecified location R10.9 ; Gastroenteritis K52.9 ; Type 2 diabetes mellitus with hyperglycemia E11.65 and custodial current use of insulin Z79.4 [place] [id number] [place] [address] 23386- 5768 Apr, [place] [address] [place] [id number] [place] [address] 93864- 6694 Apr, [place] [id number] [place] [address] 85200- 9694 Apr, Diabetes E11.9 ; Gastroparesis K31.84 ; Generalized abdominal pain R10.84 ; Essential hypertension I10 ; Bronchitis J40 and Other fatigue R53.83 [facility] [address] [place] [address] 97465 -8466 Mar, [facility] WALK IN [place] [id number] [place] [address] 68754 -9174 Mar, [facility] WALK IN [place] [id number] [place] [address] 56580 -5556 Mar, Laceration of scalp without foreign body, initial encounter S01.01XA ; Laceration of face, initial encounter S01.81XA and Encounter for immunization Z23 [place] [address] [place] [id number] [place] [address] 51532- 6261 Mar, Type 2 diabetes mellitus with diabetic autonomic (poly) neuropathy E11.43 [place] [address] 02800- 6474 Feb, [place] [address] 79080- 2812 Feb, Internal hemorrhoids K64.8 and Obstructive sleep apnea syndrome G47.[address] 72619- 7887 Feb, SI (sacroiliac) joint dysfunction M53.[address] 59125- 0218 Jan, [address] 11258- 7181 Dec, Gastroparesis K31.[address] 99262- 5158 Dec, [address] 60204- 3301 Dec, Right hip pain M25.551 ; Nose congested R09.81 and Encounter for immunization Z23 [address] 58764- 8892 Nov, Diabetes E11.9 ; Gastroparesis K31.84 ; Type 2 diabetes mellitus with diabetic autonomic (poly)neuropathy E11.43 and Obstructive sleep apnea syndrome G47.33 [place] [address] [place] [id number] [place] [address] 36486- 0938 Oct, [place] [address] 36594- 2138 Aug, [address] 79980- 4719 July, Gastro-esophageal reflux disease without esophagitis K21.9 [place] [address] [id number] [address] 2740 July, [facility] [address] [place] [id number] [place] [address] 09139- 6756 July, Diabetes E11.9 [facility] [address] [place] [id number] [place] [address] 42189- 4549 July, Diabetes E11.9 ; Obstructive sleep apnea syndrome G47.33 and Neuropathy G62.9 [facility] [address] [place] [id number] [place] [address] 63252- 6168 July, Bipolar disorder, current episode depressed, moderate F31.32 ; BRITTANI (generalized anxiety disorder) F41.1 and Panic disorder with agoraphobia F40.01 [facility] [address] [place] [id number] [place] [address] 70281- 7531 Jun, [place] [address] [place] [id number] [place] [address] 22044- 4313 Jun, [facility] [address] [place] [id number] [place] [address] 93396- 5784 Jun, [facility] [address] [place] [id number] [place] [address] 45764- 6211 Jun, [facility] [address] [place] [address] [id number] May, Encounter for dental examination and cleaning without abnormal findings Z01.20 [facility] [address] [place] [id number] [place] [address] 88199- 2350 Apr, [facility] [address] [place] [id number] [place] [address] 85430- 4798 Apr, [facility] [address] [place] [id number] [place] [address] 70789- 1759 Apr, Bipolar disorder, current episode depressed, moderate F31.32 ; BRITTANI (generalized anxiety disorder) F41.1 and Panic disorder with agoraphobia F40.01 [facility] [address] 32137- 7003 04 Apr, 2015 Hyperlipidemia, unspecified E78.5 [facility] [address] [id number] Apr, Dental caries K02.9 [facility] [address] [place] [id number] [place] [address] [id number] Feb, Dental caries K02.9 and Encounter for dental examination Z01.20 [place] [address] 22443- 8885 Feb, [place] [address] 87570- 1671 Feb, Diabetes E11.9 ; Insulin long-term use Z79.4 ; Diabetic polyneuropathy associated with diabetes mellitus due to underlying condition E08.42 and Barretts esophagus with high grade dysplasia K22.711 [place] [address] 35673- 7845 Feb, [place] [address] 25635- 9094 Jan, Pain in right hip M25.551 and Other chronic pain G89.29 [place] [address] 67120- 5981 Jan, Impingement syndrome, shoulder, left M75.42 [place] [address] 25197- 1557 Jan, Bipolar disorder, current episode depressed, moderate F31.32 ; Generalized anxiety disorder F41.1 and Agoraphobia with panic disorder F40.01 [place] [address] 63661- 6184 Jan, [place] [address] 04822- 4872 Dec, [place] [address] 18434- 3528 Dec, [facility] [address] [place] [address] 83020- 8423 Dec, Right hip pain M25.551 and Left shoulder pain M25.512 [facility] [address] [place] [id number] [place] [address] 25933- 2890 Dec, Bipolar 1 disorder, depressed, moderate F31.32 ; BRITTANI ( generalized anxiety disorder) F41.1 and Panic disorder with agoraphobia F40.01 [facility] [address] [place] [id number] [place] [address] 79444- 4633 Dec, [facility] [address] [place] [id number] [place] [address] 30891- 7303 Dec, [facility] [address] [place] [id number] [place] [address] 43373- 6487 Nov, [facility] [address] [place] [id number] [place] [address] 00955- 4905 18 Nov, 2014 [facility] [address] [place] [id number] [place] [address] 11027- 3525 14 Nov, 2014 [facility] [address] [place] [id number] [place] [address] 99578- 1197 Nov, Diabetes 250.00 [facility] [address] [place] [id number] [place] [address] 46484- 8277 Oct, [facility] [address] [place] [id number] [place] [address] 74670- 6088 Oct, [facility] [address] [place] [id number] [place] [address] 57729- 5898 Oct, [facility] [address] [place] [id number] [place] [address] 49478- 6373 Oct, [facility] [address] [place] [id number] [place] [address] 25961- 6134 Oct, [facility] [address] [place] [id number] [place] [address] 09176- 9126 Oct, [facility] [address] [address]- 6833 Oct, Diabetes 250.00 ; Insomnia 780.52 and Forgetfulness 780.99 [facility] [address] [address]- 2260 Oct, Depressive disorder, not elsewhere classified 311 [facility] [address] [address]- 5917 Sep, [facility] [address] [address]- 2679 Sep, [facility] [address] [place] [address] 20228- 9518 Sep, [facility] [address] [address]- 9716 Sep, [facility] [address] [place] [id number] [place] [address] 09399- 3951 Sep, [facility] [address], [place] [address]- 1474 Sep, [facility] [address] [address]- 0656 Sep, [facility] [address] [address]- 6784 Aug, [facility] [id number] Aug, Dental examination V72.2 [facility] [address] 5736 Aug, [facility] [address] 8673 Aug, [facility] [address] 2663 July, [facility] [address] [address]- 4335 July, [facility] [place] [facility] [address] [id number] [place] [address]- 3068 July, [facility] [place] [facility] [address] [id number] [place] [address]- 1595 July, [facility] [place] [facility] [address] [id number] [place] [address]- 8495 Jun, [facility] [place] [facility] [address] [id number] [place] [address]- 8140 Jun, [facility] [place] [facility] [address] [id number] [place] [address]- 1176 May, [facility] [place] [facility] [address] [id number] [place] [address]- 5361 May, [facility] [place] [facility] [address] [id number] [place] [address]- 0213 May, [facility] [place] [facility] [address] [id number] [place] [address]- 9561 May, [facility] [place] [facility] [address] [id number] [place] [address]- 4159 May, [facility] [place] [facility] [address] [id number] [place] [address]- 7201 17 May, 2014 [facility] [place] [facility] [address] [id number] [place] [address]- 4987 16 May, 2014 [facility] [place] [facility] [address] [id number] [place] [address]- 4641 May, [facility] [place] [facility] [address] [id number] [place] [address]- 0146 Apr, [facility] [place] [facility] [address] [id number] [place] [address]- 0296 Apr, [facility] [place] [facility] [address] [id number] [place] [address]- 6136 Apr, [facility] [place] [facility] [address] [id number] [place] [address]- 7265 Apr, [facility] [place] [facility] [address] [id number] [place] [address]- 0990 Apr, [facility] [place] [facility] [address] [id number] [place] [address]- 2386 Apr, [facility] [place] [facility] [address] [id number] [place] [address]- 9929 Mar, [facility] [place] [facility] [address] [id number] [place] [address]- 9411 Mar, [facility] [place] [facility] [address] [id number] [place] [address]- 5145 Mar, [facility] [place] [facility] [address] [id number] [place] [address]- 8499 Mar, [facility] [place] [facility] [address] [id number] [place] [address]- 5138 Mar, [facility] [place] [facility] [address] [id number] [place] [address]- 3868 Mar, [facility] [place] [facility] [address] [id number] [place] [address]- 0357 Mar, [facility] [place] [facility] [address] [id number] [place] [address]- 5729 Mar, [facility] [place] [facility] [address] [id number] [place] [address]- 1521 Mar, [facility] [place] [facility] [address] [id number] [place] [address]- 6148 Mar, [facility] [place] [facility] [address] [id number] [place] [address]- 0608 Mar, [facility] [place] [facility] [address] [id number] [place] [address]- 3206 Mar, [facility] [place] [facility] [address] [id number] [place] [address]- 4423 Mar, [facility] [place] [facility] [address] [id number] [place] [address]- 7786 Mar, [facility] [place] [facility] [address] [id number] [place] [address]- 2079 Feb, [facility] [place] [facility] [address] [id number] [place] 4946 Feb, [facility] [place] [facility] [address] [id number] [place] [address]- 0552 Feb, [facility] [place] [facility] [address] [id number] [place] [address]- 2572 Feb, [facility] [place] [facility] [address] [id number] [place] [address]- 6903 Feb, [facility] [place] [facility] [address] [id number] [place] [address]- 5393 Feb, [facility] [place] [facility] [address] [id number] [place] [address]- 2499 16 Feb, 2014 [facility] [place] [facility] [address] [id number] [place] [address]- 3952 16 Feb, 2014 [facility] [place] [facility] [address] [id number] [place] [address]- 7287 16 Feb, 2014 [facility] [place] [facility] [address] [id number] [place] [address]- 9112 16 Feb, 2014 [facility] [place] [facility] [address] [id number] [place] [address]- 2477 10 Feb, 2014 [facility] [place] [facility] [address] [id number] [place] [address]- 5549 Feb, [facility] [place] [facility] [address] [id number] [place] [address]- 2930 Feb, [facility] [place] [facility] [address] [id number] [place] 7235 Feb, [facility] [place] [facility] [address] [id number] [place] 2628 Jan, [facility] [place] [facility] [address] [id number] [place] 4173 Jan, [facility] [place] [facility] [address] [id number] [place] 7606 Jan, [facility] [place] [facility] [address] [id number] [place] [address]- 9954 Jan, [facility] [place] [facility] [address] [id number] [place] [address]- 8065 Dec, [facility] [place] [facility] [address] [id number] [place] [address]- 9708 Dec, [facility] [place] [facility] [address] [id number] [place] [address]- 5850 Dec, [facility] [place] [facility] [address] [facility] [id number] [place] [address]- 0247 Dec, [facility] [place] [facility] [address] [id number] [place] [address]- 4068 Dec, [facility] [place] [facility] [address] [id number] [place] [address]- 4942 Dec, [facility] [place] [facility] [address] [facility] [id number] [place] [address]- 7631 Dec, [facility] [place] [facility] [address] [id number] [place] [address]- 5841 02 Dec, 2013 [facility] [place] [facility] [address] [id number] [place] [address]- 3657 30 Nov, 2013 [facility] [place] [facility] [address] [id number] [place] [address]- 9249 17 Nov, 2013 [facility] [place] [facility] [address] [id number] [place] [address]- 1742 17 Nov, 2013 [facility] [place] [facility] [address] [id number] [place] [address]- 0508 Nov, [facility] [place] [facility] [address] [id number] [place] [address]- 6175 Nov, [facility] [place] [facility] [address] [id number] [place] [address]- 4795 Oct, [facility] [place] [facility] [address] [id number] [place] [address]- 3346 Oct, [facility] [place] [facility] [address] [id number] [place] [address]- 7092 Sep, [facility] [place] [facility] [address] [id number] [place] [address]- 1725 Sep, [facility] [place] [facility] [address] [id number] [place] [address]- 4901 Sep, [facility] [place] [facility] [address] [id number] [place] [address]- 3506 Sep, [facility] [place] [facility] [address] [id number] [place] [address]- 5763 Sep, [facility] [place] [facility] [address] [id number] [place] [address]- 7202 Sep, [facility] [place] [facility] [address] [id number] [place] [address]- 4485 Sep, [facility] [place] [facility] [address] [id number] [place] [address]- 4428 Sep, [facility] [place] [facility] [address] [id number] [place] [address]- 1580 Sep, [facility] [place] [facility] [address] [id number] [place] [address]- 0854 Sep, [facility] [place] [facility] [address] [id number] [place] [address]- 1067 Sep, [facility] [place] [facility] [address] [id number] [place] [address]- 4122 Sep, [facility] [place] [facility] [address] [id number] [place] [address] Sep, [facility] [place] [facility] [address] [id number] [place] [address] Sep, [facility] [place] [facility] [address] [id number] [place] [address] July, [facility] [place] [facility] [address] [id number] [place] [address] July, [facility] [place] [facility] [address] [id number] [place] [address] July, [facility] [place] [facility] [address] [id number] [place] [address] July, [facility] [place] [facility] [address] [id number] [place] [address] July, [facility] [place] [facility] [address] [id number] [place] [address] July, [facility] [place] [facility] [address] [id number] [place] [address] July, [facility] [place] [facility] [address] [id number] [place] [address] July, [facility] [place] [facility] [address] [id number] [place] [address] Jun, [facility] [place] [facility] [address] [id number] [place] [address] Jun, [facility] [place] [facility] [address] [id number] [place] [address] Jun, [facility] [place] [facility] [address] [id number] [place] [address] Jun, [facility] [place] [facility] [address] [id number] [place] [address] Jun, [facility] [place] [facility] [address] [id number] [place] [address] Jun, [facility] [place] [facility] [address] [id number] [place] [address] Jun, [facility] [address] [id number] [place] [address] Jun, [facility] [place] [facility] [address] [id number] [place] [address] 27 May, 2013 [facility] [address] [id number] [place] [address] 27 May, 2013 [facility] [place] [facility] [address] [id number] [place] [address] May, [facility] [address] [id number] [place] [address] 21 May, 2013 [facility] [address] [id number] [place] [address] May, [facility] [place] [facility] [address] [id number] [place] [address] 20 May, 2013 [facility] [address] [id number] [place] [address] 19 May, 2013 [facility] [place] [facility] [address] [id number] [place] [address] 19 May, 2013 [facility] [address] [id number] [place] [address] 17 May, 2013 [facility] [place] [facility] [address] [id number] [place] [address] 17 May, 2013 [facility] [place] [facility] [address] [id number] [place] [address] 17 May, 2013 [facility] [place] [facility] [address] [id number] [place] [address] 17 May, 2013 [facility] [place] [facility] [address] [id number] [place] [address]- [address] 12 May, 2013 [facility] [place] [facility] [address] [id number] [place] [address] May, [facility] [address] [id number] [place] [address] May, [facility] [place] [facility] [address] [id number] [place] [address] May, [facility] [place] [facility] [address] [id number] [place] [address] Apr, [facility] [place] [facility] [address] [id number] [place] [address] Apr, [facility] [place] [facility] [address] [id number] [place] [address] Mar, [facility] [place] [facility] [address] [id number] [place] [address] Mar, [facility] [place] [facility] [address] [id number] [place] [address] Mar, [facility] [place] [facility] [address] [id number] [place] [address] Mar, [facility] [place] [facility] [address] [id number] [place] [address] Mar, [facility] [place] [facility] [address] [id number] [place] [address] Mar, [facility] [place] [facility] [address] [id number] [place] [address] Feb, [facility] [place] [facility] [address] [id number][place] [address] Feb, [facility] [place] [facility] [address] [id number] [place] [address] Feb, [facility] [place] [facility] [address] [id number] [place] [address] Feb, [facility] [place] [facility] [address] [id number] [place] [address] Feb, [facility] [place] [facility] [address] [id number] [place] [address] Feb, [facility] [place] [facility] [address] [id number] [place] [address] Jan, [facility] [place] [facility] [address] [id number] [place] [address] Jan, [facility] [place] [facility] [address] [id number] [place] [address] Jan, [facility] [place] [facility] [address] [id number] [place] [address] 76[address] Jan, [facility] [place] [facility] [address] [id number] [place] [address] Jan, [facility] [place] [facility] [address] [id number] [place] [address] 38[address] Jan, [facility] [place] [facility] [address] [id number] [place] [address] Jan, [facility] [place] [facility] [address] [id number] [place] [address] Dec, [facility] [place] [facility] [address] [id number] [place] [address] Dec, [facility] [place] [facility] [address] [id number] [place] [address] 1027 Dec, [facility] [place] [facility] [address] [id number] [place] [address] Nov, [facility] [place] [facility] [address] [id number] [place] [address] Oct, [facility] [place] [facility] [address] [id number] [place] [address] 1069 Sep, [facility] [place] [facility] [address] [id number] [place] [address] 3943 Sep, [facility] [place] [facility] [address] [id number] [place] [address] 06[address] Sep, [facility] [place] [facility] [address] [id number] [place] [address] 83[address] Sep, [facility] [address] [id number] [place] [address] Sep, [facility] [address] [id number] [place] [address] Sep, [facility] [address] [id number] [place] [address] Aug, [facility] [address] [id number] [place] [address] Aug, [facility] [address] [id number] [place] [address] 2665 July, [facility] [address] [id number] [place] [address] July, [facility] [address] [id number] [place] [address] 8[address] July, [facility] [address] [id number] [place] [address]295 July, [facility] [address] [id number] [place] [address] 98[address] Jun, [facility] [address] [id number] [place] [address] May, [facility] [place] [facility] [address] [id number] [place] [address] May, [facility] [place] [facility] [address] [id number] [place] [address] May, [facility] [place] [facility] [address] [id number] [place] [address] Mar, [facility] [place] [facility] [address] [id number] [place] [address] Mar, [facility] [place] [facility] [address] [id number] [place] [address]81 Mar, [facility] [place] [facility] [address] [id number] [place] [address] 2084 Feb, [facility] [place] [facility] [address] [id number] [place] [address] 5416 Feb, [facility] [place] [facility] [address] [id number] [place] [address] 8[address] Feb, [facility] [place] [facility] [address] [id number] [place] [address] 1513 Feb, [facility] [place] [facility] [address] [id number] [place] [address] 1088 Feb, [facility] [place] [facility] [address] [id number] [place] [address] 7[address] Feb, [facility] [place] [facility] [address] [id number] [place] [address] 9831 Feb, [facility] [place] [facility] [address] [id number] [place] [address] 2453 Feb, [facility] [place] [facility] [address] [id number] [place] [address] 2677 Feb, [facility] [place] [facility] [address] [id number] [place] [address]- 7[address] Feb, [facility] [place] [facility] [address] [id number] [place] [address] 7942 Jan, [facility] [place] [facility] [address] [id number], [place] [address] Jan, [facility] [place] [facility] [address] [id number] [place] [address] 6710 Jan, [facility] [place] [facility] [address] [id number] [place] [address]- 8988 Jan, [facility] [place] [facility] [address] [id number] [place] [address] Jan, [facility] [place] [facility] [address] [id number] [place] [address] 4461 Jan, [facility] [place] [facility] [address] [id number] [place] [address]- 7273 Jan, [facility] [place] [facility] [address] [id number] [place] [address] 1544 Jan, [facility] [place] [facility] [address] [id number] [place] [address] 3[address] Jan, [facility] [place] [facility] [address] [id number] [place] [address]- 8226 Jan, [facility] [place] [facility] [address] [id number] [place] [address] 2679 Dec, [facility] [place] [facility] [address] [id number] [place] [address] 2162 Dec, [facility] [place] [facility] [address] [id number] [place] [address]- 3032 Nov, [facility] [place] [facility] [address] [id number] [place] [address]- 8635 24 Nov, 2011 [facility] [place] [facility] [address] [id number] [place] [address]- 1409 05 Nov, 2011 [facility] [place] [facility] [address] [id number] [place] [address]- 6129 Oct, [facility] [place] [facility] [address] [id number] [place] [address]- 3729 Oct, [facility] [place] [facility] [address] [id number] [place] [address]- 1397 Oct, [facility] [place] [facility] [address] [id number] [place] [address]- 7012 Oct, [facility] [place] [facility] [address] [id number] [place] [address]- 1400 Aug, [facility] [place] [facility] [address] [id number] [place] [address]- 6881 Aug, [facility] [place] [facility] [address] [id number] [place] [address]- 2875 14 Aug, 2011 [facility] [place] [facility] [address] [id number] [place] [address]- 4722 07 Aug, 2011 [facility] [place] [facility] [address] [id number] [place] [address]- 4472 08 Jun, 2011 [facility] [place] [facility] [address] [id number] [place] [address]- 5980 07 May, 2011 [facility] [address] [id number] [place] [address]- 4101 06 May, 2011 [facility] [place] [facility] [address] [id number] [place] [address]- 6904 20 Apr, 2011 [facility] [place] [facility] [address] [id number] [place] [address]- 0027 20 Apr, 2011 [facility] [address] [id number][place] [address]- 8299 15 Apr, 2011 [facility] [place] [facility] [address] [id number] [place] [address]- 5289 14 Apr, 2011 [facility] [place] [facility] [address] [id number] [place] [address]- 5852 24 Mar, 2011 [facility] [place] [facility] [address] [id number] [place] [address]- 6376 Mar, [facility] [place] [facility] [address] [id number], [place] [address]- 4544 19 Mar, 2011 [facility] [place] [facility] [address] [id number] [place] [address]- 4136 18 Mar, 2011 [facility] [place] [facility] [address] [id number], [place] [address]- 5[address] 13 Mar, 2011 [facility] [place] [facility] [address] [id number] [place] [address]- 3286 13 Mar, 2011 [facility] [place] [facility] [address] [id number] [place] [address]- 5176 Feb, [facility] [address] [id number] [place] [address]- 4566 Jan, [facility] [address] [facility] [id number] [place] [address]- 4416 Jan, [facility] [address] [facility] [id number] [place] [address]- 4876 Jan, [facility] [address] [id number] [place] [address]- 2406 Jan, [facility] [address] [facility] [id number] [place] [address]- 5526 Jan, [facility] [address] [facility] [id number] [place] [address]- 5534 Dec, [facility] [address] [facility] [id number] [place] [address]- 1288 May, [facility] [address] [facility] [id number] [place] [address]- [address]13 14 Apr, 2010 [facility] [address] [facility] [id number] [place] [address]- 9018 Mar, [facility] [address] [facility] [id number] [place] [address]- 3983 Feb, [facility] [address] [facility] [id number] [place] [address]- 0396 Feb, [facility] [address] [facility] [id number], [place] [address]- [address]46 14 Feb, 2010 [facility] [address] [facility] [id number] [place] [address]- 9638 13 Feb, 2010 [facility] [address] [facility] [id number] [place] [address] Dec, [facility] [address] [facility] [id number][place] [address] 11 Dec, 2009 IMMUNIZATIONS No Known Immunizations SOCIAL HISTORY Never Assessed REASON FOR VISIT Diabetes, PT is also having pain in her right shoulder and down her arm- Imelda BUSTOS PLAN OF CARE Activity Details Follow Up 4 Weeks Reason:DM VITAL SIGNS Height 67 in 2016-09-06 Weight 200.3 lbs 2016-09-06 Temperature 97.8 degrees Fahrenheit 2016-09-06 Heart Rate 78 bpm 2016-09-06 Respiratory Rate 18 2016-09-06 BMI 31.37 kg/m2 2016-09-06 Blood pressure systolic 120 mmHg 2016-09-06 Blood pressure diastolic 72 mmHg 2016-09-06 MEDICATIONS Medication Instructions Dosage Frequency Start Date End Date Duration Status Pantoprazole Sodium 40 MG TAKE ONE TABLET BY MOUTH ONCE DAILY 90 Active Metformin HCl 500 MG Orally Twice a day 1 tablet with meals 12h 30 Active Victoza 18 MG/3ML Subcutaneous Once a day Inject 1.8mg 24h 30 Active MiraLax - Orally at bedtime 17 grams mixed with 8 ounces of water or juice as needed May, Active Metoprolol Tartrate 50 MG TAKE 1 TABLET TWICE DAILY 90 Active BusPIRone HCl 10 MG TAKE ONE TABLET BY MOUTH IN THE MORNING, ONE TABLET AT NOON AND TWO TABLETS AT BEDTIME 67 Active Effexor XR 150 MG Orally Once a day 1 capsule with food 24h Oct, Active Zenpep 64200 UNIT Orally 6 times per day 1 Capsule before meals and snacks Nov, 120 days Active Oxybutynin Chloride 5 MG Orally Twice a day 1 tablet 12h 90 Active Gabapentin 300 MG Orally Three times a day 3 capsule 8h 30 Active Quinapril HCl 20 MG TAKE 1 TABLET EVERY DAY 24h 90 Active Ondansetron 8 MG Orally every 6 hrs 1 tablet on the tongue and allow to dissolve 6h May, Active Aspirin Adult Low Dose 81 MG Orally Once a day 1 tablet 24h Active Atorvastatin Calcium 40 MG Orally Once a day 1 tablet 24h 90 Active Pen Sylvester 31G X 6 MM Inject July, 30 days Active Test strips one touch ultra test blood sugar Dec, Active Levemir FlexTouch 100 UNIT/ML Subcutaneous 2 times a day Inject 47units in AM and 42 in PM 12h 90 days Active NovoLog Flexpen 100 UNIT/ML INJECT 20 UNITS SUBCUTANEOUSLY THREE TIMES DAILY BEFORE MEALS 50 Active RESULTS Name Result Date Reference Range A1C (IN HOUSE) 2016-09-06 A1C IN HOUSE 11.9 4.3 - 5.6 % Previous A1c 10.1 Lot [id number] Exp date 05/2018 PROCEDURES Procedure Date Ordered Result Body Site GLYCATED HEMOGLOBIN TEST September 06, 2016 INSTRUCTIONS MEDICATIONS ADMINISTERED No Known Medications MEDICAL [...]
--- OUTSIDE RECORDS SUMMARY | 2017-12-04 10:12 | XMS REPORT ---
Author Author JYOTSNA EMERY [facility] Address [address] [place] [address] Care Team Providers Care Lift Truck Mechanic Name Role Phone JYOTSNA EMERY Unavailable PROBLEMS Type Condition ICD9-CM Code [id number] Code Onset Dates Condition Status SNOMED Code Problem Obstructive sleep apnea syndrome G47.33 Active 19495164 Problem Essential hypertension I10 Active 55718079 Problem Diabetes E11.9 Active 324794198 Problem Rotator cuff syndrome of right shoulder M75.101 Active 058362384594920 Problem Constipation, unspecified constipation type K59.00 Active 00893069 Problem detention current use of insulin Z79.4 Active 084062736 Problem Type 2 diabetes mellitus with hyperglycemia E11.65 Active 97904892 Problem Irritable bowel syndrome, unspecified type K58.9 Active 78735639 Problem Slow transit constipation K59.01 Active 02242507 Problem Gastroparesis K31.84 Active 976300183 Problem Barretts esophagus without dysplasia K22.70 Active 395404735 Problem BRITTANI (generalized anxiety disorder) F41.1 Active 73089104 Problem Bipolar disorder, current episode depressed, moderate F31.32 Active 928790851 Problem 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 Nov, Active 2814891 Problem Gastro-esophageal reflux disease without esophagitis K21.9 Active 244693016 Problem Panic disorder with agoraphobia F40.01 Active 54963250 Problem Type 2 diabetes mellitus with diabetic autonomic (poly)neuropathy E11.43 Active 931880414 ALLERGIES Substance Reaction Event Type Date Status Codeine Sulfate hives Drug Allergy Apr, Active Advil rash Drug Allergy Apr, Active All nsaids Unknown Non Drug Allergy Apr, Active SOCIAL HISTORY Never Assessed PLAN OF CARE Activity Details Follow Up 3 Months Reason:DM VITAL SIGNS Height 67 in 2016-04-19 Weight 202 lbs 2016-04-19 Temperature 98.3 degrees Fahrenheit 2016-04-19 Heart Rate 80 bpm 2016-04-19 Respiratory Rate 16 2016-04-19 BMI 31.63 kg/m2 2016-04-19 Blood pressure systolic 150 mmHg 2016-04-19 Blood pressure diastolic 90 mmHg 2016-04-19 MEDICATIONS Medication Instructions Dosage Frequency Start Date [...] TAKE 1 TABLET TWICE DAILY 90 Active Nitrostat 0.4 MG Active Atorvastatin Calcium 40 MG Orally Once a day 1 tablet 24h 90 Active Oxybutynin Chloride 5 MG Orally Twice a day 1 tablet 12h 30 Active Effexor XR 150 MG Orally Once a day 1 capsule with food 24h 10 Oct, 2014 Active Quinapril HCl 20 mg TAKE 1 TABLET EVERY DAY 12h Active Victoza 18 MG/3ML Subcutaneous Once a day Inject 1.8mg 24h 30 Active Gabapentin 300 MG Orally Three times a day 3 capsule 8h 30 Active C-PAP Machine N/A as directed Oct, Active Zenpep 70052 UNIT Orally 6 times per day 1 Capsule before meals and snacks Nov, 120 days Active Levemir FlexTouch 100 UNIT/ML Subcutaneous 2 times a day Inject 47units in AM and 42 in PM 12h Active Zithromax Z-Karl 250 MG Orally Once a day 2 tablets on the first day, then 1 tablet daily for 4 days 24h Apr, Apr, 5 day(s) Active Pantoprazole Sodium 40 mg Orally Once a day 1 tablet 24h 90 days Active Aspirin Adult Low Dose 81 MG Orally Once a day 1 tablet 24h Active Adult Mask N/A as directed July, Active Fish Oil 1000 MG Orally Three times a day 1 capsule 8h Active Test strips one touch ultra test blood sugar Dec, Active BusPIRone HCl 10 MG TAKE ONE TABLET BY MOUTH IN THE MORNING, ONE TABLET AT NOON AND TWO TABLETS AT BEDTIME 67 Active RESULTS Name Result Date Reference Range A1C (IN HOUSE) 2016-04-19 A1C IN HOUSE 10.1 4.3 - 5.6 % Previous A1c 7.9 Lot [id number] Exp date 01/2018 MICROALBUMIN, URINE (IN HOUSE) 2016-04-19 MICROALBUMIN NORMAL Lot # [id number] Exp date 04/2017 Clarity cloudy Color yellow ALB 30mg/l CRE 100mg/dl A:C (IN HOUSE) <30mg/g Control + Control Lot # Exp date ESR/SED RATE 2016-04-19 Sedimentation Rate-Westergren 28 0-40 TSH 2016-04-19 TSH 1.610 0.450-4.500 CBC 2016-04-19 WBC 6.3 3.4-10.8 RBC 4.04 3.77-5.28 Hemoglobin 12.2 11.1-15.9 Hematocrit 36.8 34.0-46.6 MCV 91 79-97 MCH 30.2 26.6-33.0 MCHC 33.2 31.5-35.7 RDW 13.6 12.3-15.4 Platelets 237 150-379 Neutrophils 70 Lymphs 17 Monocytes 8 Eos 4 Basos 1 Neutrophils (Absolute) 4.5 1.4-7.0 Lymphs (Absolute) 1.1 0.7-3.1 Monocytes(Absolute) 0.5 0.1-0.9 Eos (Absolute) 0.2 0.0-0.4 Baso (Absolute) 0.0 0.0-0.2 Immature Granulocytes 0 Immature Grans (Abs) 0.0 0.0-0.1 CRP 2016-04-19 C-Reactive Protein, Quant 2.7 0.0-4.9 VITAMIN D, 25-H 2016-04-19 Vitamin D, 25-Hydroxy 11.0 30.0-100.0 LIPID PANEL 2016-04-19 Cholesterol, Total 170 100-199 Triglycerides 219 0-149 HDL Cholesterol 48 >39 VLDL Cholesterol Eduardo 44 5-40 LDL Cholesterol Calc 78 0-99 CMP 2016-04-19 Glucose, Serum 217 65-99 BUN 8 8-27 Creatinine, Serum 0.70 0.57-1.00 eGFR If NonAfricn Am 92 >59 eGFR If Africn Am 106 >59 BUN/Creatinine Ratio 11 11-26 Sodium, Serum 142 134-144 Potassium, Serum 4.1 3.5-5.2 Chloride, Serum 98 96-106 Carbon Dioxide, Total 25 18-29 Calcium, Serum 8.9 8.7-10.3 Protein, Total, Serum 6.8 6.0-8.5 Albumin, Serum 4.2 3.6-4.8 Globulin, Total 2.6 1.5-4.5 A/G Ratio 1.6 1.1-2.5 Bilirubin, Total 0.3 0.0-1.2 Alkaline Phosphatase, S 53 39-117 AST (SGOT) 30 0-40 ALT (SGPT) 48 0-32 PROCEDURES Procedure Date Ordered Result Body Site ASSAY THYROID STIM HORMONE Apr 19, 2016 ROUTINE VENIPUNCTURE 2016-04-19 N/A GLYCATED HEMOGLOBIN TEST Apr 19, 2016 C-REACTIVE PROTEIN Apr 19, 2016 RBC SED RATE, AUTOMATED Apr 19, 2016 COMPLETE CBC W/AUTO DIFF WBC Apr 19, 2016 LIPID PANEL Apr 19, 2016 MICROALBUMIN, SEMIQUANT Apr 19, 2016 ASSAY OF VITAMIN D Apr 19, 2016 COMPREHEN METABOLIC PANEL Apr 19, 2016 IMMUNIZATIONS No Known Immunizations MEDICAL (GENERAL) [...]
--- OUTSIDE RECORDS SUMMARY | 2017-12-04 10:12 | XMS REPORT ---
Author Author JYOTSNA EMERY Organization [facility] Address [address] [place] [address] Care Team Providers Care Automotive Technician Instructor Name Role Phone JYOTSNA EMERY Unavailable PROBLEMS Type Condition ICD9-CM Code [id number] Code Onset Dates Condition Status SNOMED Code Problem Obstructive sleep apnea syndrome G47.33 Active 42575936 Problem Essential hypertension I10 Active 83621500 Problem Diabetes E11.9 Active 484878180 Problem Rotator cuff syndrome of right shoulder M75.101 Active 395425199494308 Problem Constipation, unspecified constipation type K59.00 Active 17834091 Problem MCC current use of insulin Z79.4 Active 541236680 Problem Type 2 diabetes mellitus with hyperglycemia E11.65 Active 04239148 Problem Irritable bowel syndrome, unspecified type K58.9 Active 90079549 Problem Slow transit constipation K59.01 Active 20573309 Problem Gastroparesis K31.84 Active 604644966 Problem Barretts esophagus without dysplasia K22.70 Active 923674258 Problem BRITTANI (generalized anxiety disorder) F41.1 Active 75120843 Problem Bipolar disorder, current episode depressed, moderate F31.32 Active 918269301 Problem 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
--- OUTSIDE RECORDS SUMMARY | 2017-12-04 10:13 | XMS REPORT ---
Author Author JYOTSNA EMERY [facility] [employer] Address Unknown Phone Unavailable Care Team Providers Care Pattern Changer Name Role Phone JYOTSNA EMERY CP Unavailable Allergies, Adverse Reactions, Alerts Substance Reaction Event Type N.K.D.A. 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 Active Assessment Diabetes 250.00 Active Problem Pain in joint, pelvic region [...] Coronary atherosclerosis of unspecified type of vessel, mary's igloo or graft 414.00 Active Problem Dermatophytosis of nail 110.1 Active Medications Medication Code System Code Instructions Start Date End Date Status Dosage Bentyl [facility] [address]-21 20 mg Dec 14, 2013 1 tablet by Oral route 4 times per day PRN 90 day supply Nitrostat [facility] [address]-19 0.4 MG Sublingual not defined Vitamin E [facility] [address]-36 100 UNIT Orally Once a day 1 capsule Bydureon [facility] [address]-22 2 MG Subcutaneous once weekly For PALS August 06, 2014 Nov 20, 2015 as directed buspirone NDC 0 10 mg Mar 04, 2014 take 1-2 tablet by Oral route 3 times per day (1 in am, 1 at noon, 2 at hs) tramadol NDC 0 50 mg May 30, 2014 take 1 tablet to 2 tabs by Oral route every 8 hours as needed PRN pain Oxybutynin Chloride [facility] [address]-93 5 MG Orally Twice a day May 28, 2014 1 tablet C-PAP Machine ND 0 N/A Once a day at night Nov 06, 2014 as directed NovoLog Flexpen [facility] [address]-99 100 UNIT/ML Subcutaneous 3 times a day 20 unit with meals Quinapril HCl [facility] [address]-98 20 MG Once a day TAKE 1 TABLET EVERY DAY Gabapentin [facility] [address]-53 300 MG Orally Three times a day August 14, 2014 3 capsule Pantoprazole Sodium [facility] [address]-61 40 MG Orally August 14, 2014 1 tablet in the AM 2 tabs in PM Metoprolol Tartrate [facility] [address]-71 50 MG TAKE 1 TABLET TWICE DAILY Metformin HCl [facility] [address]-00 500 MG Orally Twice a day July 16, 2014 1 tablet with meals Levemir FlexTouch [facility] [id number] 100 UNIT/ML INJECT 42 UNITS SUBCUTANEOUSLY TWICE DAILY Effexor XR [facility] [address]-69 150 MG Orally Once a day Oct 21, 2014 1 capsule with food Atorvastatin Calcium [facility] [address]-46 40 MG Orally Once a day 1 tablet Procedures Procedure Coding System Code Date Office Visit, Est Pt., Level 3 CPT-4 78520 Nov 25, 2014 MICROALBUMIN, SEMIQUANT CPT-4 83935 Nov 25, 2014 Vital Signs Date/Time: Nov 25, 2014 Temperature 97.8 F Weight 205 lbs Height 67 in BMI 32.10 Index Blood Pressure Diastolic 70 mmHg Blood Pressure Systolic 120 mmHg Cardiac Monitoring Heart Rate 78 bpm Results Name Result Date Reference Range Unit Abnormality Flag MICROALBUMIN, URINE (IN HOUSE) Summary Purpose eClinicalWorks Submission
--- OUTSIDE RECORDS SUMMARY | 2017-12-04 10:13 | XMS REPORT ---
Author Author JYOTSNA EMERY [facility], [place] eClinicalWorks Address Unknown Phone Unavailable Care Team Providers Care Typewriter Aligner Name Role Phone JYOTSNA EMERY CP Unavailable Allergies, Adverse Reactions, Alerts Substance Reaction Event Type Codeine Sulfate hives Drug Allergy Advil rash Drug Allergy Problems Problem Type Condition Code Onset Dates Condition Status Problem 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 Active Problem Coronary atherosclerosis of unspecified type of vessel, igiugig or graft 414.00 Active Problem Family history [...] Other and unspecified hyperlipidemia 272.4 Active Assessment Barretts esophagus with high grade dysplasia K22.711 Active Assessment Diabetic polyneuropathy associated with diabetes mellitus due to underlying condition E08.42 Active Assessment Insulin long-term use Z79.4 Active Assessment Diabetes E11.9 Active Medications Medication Code System Code Instructions Start Date End Date Status Dosage Latuda [facility] [address]-24 60 MG Orally Once with evening meal Dec 19, 2014 1 tablet with food Quinapril HCl [facility] [address]-46 20 MG Once a day TAKE 1 TABLET EVERY DAY Test strips ND 0 one touch ultra 2 times a day DX code: E11.329 Jan 03, 2015 test blood [place] [address]-25 40 MG Orally Once a day 1 tablet NovoLog Flexpen [facility] [address]-95 100 UNIT/ML Subcutaneous 3 times a day 20 unit [place] [address]-21 40 MG Orally August 14, 2014 1 tablet in the AM 2 tabs in PM Metoprolol Tartrate [facility] 16509557122 50 MG TAKE 1 TABLET TWICE DAILY tramadol NDC 0 50 mg May 30, 2014 take 1 tablet to 2 tabs by Oral route every 8 hours as needed PRN pain Effexor XR [facility] [address]-57 150 MG Orally Once a day Oct 21, 2014 1 capsule with food Nitrostat [facility] [address]-88 0.4 MG Sublingual not defined Fish Oil [facility] [address]-68 1000 MG Orally Three times a day 1 capsule Bydureon [facility] [address]-54 2 MG Subcutaneous once weekly August 06, 2014 2mg Bentyl [facility] [address]-92 20 mg Dec 14, 2013 1 tablet by Oral route 4 times per day PRN 90 day supply BusPIRone HCl [facility] 89522524857 10 MG Orally Three times a day 1 tab in AM, 1 Tab at noon 2 tabs at HS 1-2 tablet Levemir FlexTouch [facility] 02290208819 100 UNIT/ML INJECT 42 UNITS SUBCUTANEOUSLY TWICE DAILY C-PAP Machine [facility] 0 N/A Once a day at night Nov 06, 2014 as directed Vitamin E [facility] [address]-90 100 UNIT Orally Once a day 1 capsule Metformin HCl [facility] [address]-41 500 MG Orally Twice a day July 16, 2014 1 tablet with meals Gabapentin [facility] [address]-92 300 MG Orally Three times a day August 14, 2014 3 capsule Oxybutynin Chloride [facility] [address]-52 5 MG Orally Twice a day May 28, 2014 1 tablet Procedures Procedure Coding System Code Date Office Visit, Est Pt., Level 3 CPT-4 15363 Feb 25, 2015 GLYCATED HEMOGLOBIN TEST CPT-4 12207 Feb 25, 2015 Vital Signs Date/Time: Feb 25, 2015 Temperature 98.6 F Weight 209.2 lbs Height 67 in BMI 32.76 Index Blood Pressure Diastolic 62 mmHg Blood Pressure Systolic 100 mmHg Cardiac Monitoring Heart Rate 104 bpm Results Name Result Date Reference Range Unit Abnormality Flag A1C (IN HOUSE) ----A1C IN HOUSE 6.4 20150225 4.30 - 5.6 % ----Previous A1c 6.6 [id number] ----Lot # [id number] ----Exp date [id number] Summary Purpose eClinicalWorks Submission
--- NOTE | 2017-12-04 10:19 | ED Head Injury ---
General Chief Complaint: Trauma-Non Activation Stated Complaint: FALL/HEAD LAC Source: patient, family Exam Limitations: no limitations History of Present Illness Date Seen by Provider: Dec 04, 2017 Time Seen by Provider: 10:14 Initial Comments This 67-year-old white female presents after falling on her porch sustaining a laceration to her scalp. The injury and fall were not observed by her . The patient has no clear recollection of what caused the fall. There was no definite loss of consciousness. The patient is subsequently been awake and alert and had no particular complaints other than a moderate headache. The patient denies similar falls in the past. The patient is concerned because she has had cervical fusion and is experiencing non-radiating moderate neck pain in addition to the headache. Fortunately she denies paresthesias or weakness in the extremities. Her right shoulder is causing her some minor discomfort here in the emergency department. Patient denies palpitations, chest pain, shortness of breath, vomiting or abdominal distress, weakness or paresthesias in the extremities, or other area of discomfort or concern. Patient is status post cardiac stents for coronary artery disease. Patient is diabetic on metformin. Allergies and Home Medications Allergies Coded Allergies: NSAIDS (Non-Steroidal Anti-Inflamma (Verified Allergy, Unknown, 02/12/11) codeine (Verified Allergy, Unknown, 08/01/13) Home Medications Atorvastatin Calcium 40 Mg Tablet, 40 MG PO HS, (Reported) Buspirone Hcl 10 Mg Tab, 10 MG PO TID, (Reported) Exenatide Microspheres 2 Mg Vial, 2 MG SQ UD, (Reported) Gabapentin 300 Mg Capsule, 900 MG PO TID, (Reported) Insulin Aspart 100 Unit/1 Ml Susp, 20 UNIT SQ PRN, (Reported) Insulin Determir 100 U/Ml Insuln.pen, 42 UNITS SQ BID, (Reported) Lidocaine 15 Gm Cream..g., 15 GM TP UD PRN for PAIN Apply to the anus every 6 hours when necessary pain Prescribed by: NAMITA ALANIZ on 05/07/162037 Lurasidone HCl 60 Mg Tablet, 60 MG PO DAILY, (Reported) Metformin Hcl 500 Mg Tablet, 500 MG PO BID, (Reported) Metoprolol Tartrate 50 Mg Tablet, 50 MG PO BID, (Reported) Hull-3 Fatty Acids 300 Mg Capsule, 300 MG PO TID, (Reported) Ondansetron 8 Mg Tab.rapdis, 8 MG PO Q6H PRN for NAUSEA Prescribed by: NAMITA ALANIZ on 05/07/162037 Oxybutynin Chloride Unknown Strength Tablet, 5 MG PO BID, (Reported) Pantoprazole Sodium 40 Mg Tablet.dr, 40 MG PO BID, (Reported) Polyethylene Glycol 3350 119 Gm Powder, 17 GM PO HS PRN for CONSTIPATION Prescribed by: NAMITA ALANIZ on 05/07/162037 Quinapril Hcl 20 Mg Tablet, 20 MG PO DAILY, (Reported) Venlafaxine HCl 150 Mg Cap.er.24h, 150 MG PO DAILY, (Reported) [Vit E] , 500 MG PO BID, (Reported) Patient Home Medication List Home Medication List Reviewed: Yes Review of Systems Review of Systems Constitutional: No chills, No fever, No weakness Eyes: Denies Blurred Vision Ears, Nose, Mouth, Throat: denies ear pain, denies epistaxis Respiratory: No dyspnea on exertion Cardiovascular: No chest pain, No palpitations, No syncope Gastrointestinal: No abdominal pain, No nausea, No vomiting Genitourinary: no symptoms reported : No Musculoskeletal: joint pain, neck pain Skin: other (scalp laceration) Psychiatric/Neurological: No Symptoms Reported Endocrine: No Symptoms Reported Hematologic/Lymphatic: No Symptoms Reported Past Ftzrhrr-Paenak-Twjyjv Hx Past Med/Social Hx: Reviewed Nursing Past Med/Soc Hx Patient Social History Alcohol Use: Denies Use Recreational Drug Use: No Smoking Status: Never a Smoker Recent Foreign Travel: No Contact w/Someone Who Travel: No Recent Hopitalizations: No Immunizations Up To Date Date of Pneumonia Vaccine: Jan 27, 2012 Date of Influenza Vaccine: Dec 17, 2015 Seasonal Allergies Seasonal Allergies: No Past Medical History Surgeries: Yes Appendectomy, Cardiac, Coronary Stent, Gallbladder, Hysterectomy, Oophorectomy, Orthopedic Respiratory: Yes (SLEEP APNEA-USES CPAP) Sleep Apnea, COPD Cardiac: Yes (STENT PLACEMENT X4) Coronary Artery Disease, Heart Attack, High Cholesterol, Hypertension Neurological: Yes Headaches /Migraines, Neuropathy Reproductive Disorders: No [employer]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[employer] History: Hysterectomy, Menopausal Gastrointestinal: Yes Gastroesophageal Reflux, Diverticulosis Musculoskeletal: Yes ("COMPRESSED DISCS IN BACK" PER PT) Degenerate Disk Disease, Chronic Back Pain Endocrine: Yes Diabetes, Insulin dep Cancer: No Psychosocial: Yes Anxiety, Depression Integumentary: No Blood Disorders: No Family Medical History Cancer 19 MOTHER Cancer of colon 19 MOTHER Cataract 19 MOTHER Chest pain G8 SISTER Family history: Arthritis 19 FATHER 19 MOTHER G8 SISTER Family history: Cardiovascular disease 19 FATHER 19 MOTHER Family history: Gastrointestinal disease 19 MOTHER Family history: Hypertension 19 MOTHER Family history: Osteoporosis 19 MOTHER Family history: Thyroid disorder G8 SISTER Headache 19 FATHER 19 MOTHER G8 SISTER Hearing loss 19 MOTHER Heart disease 19 FATHER History of - respiratory disease G8 SISTER Hypercholesterolemia 19 FATHER 19 MOTHER Visual impairment 19 MOTHER No Family History of: Abdominal aortic aneurysm Zapata's disease Alcoholism Aphasia Congenital heart disease Congestive heart failure Cystic fibrosis Dementia Dysphagia Family history: Allergy Family history: Alzheimer's disease Family history: Asthma Family history: Breast disease Family history: Coronary thrombosis Family history: Glaucoma Hereditary disease History of - anemia History of - disorder History of drug abuse Human immunodeficiency virus (HIV) seropositivity Infertile Kidney disease Malignant neoplasm of lung Myocardial infarction Parkinson's disease Prostate cancer Psychotic disorder Seizure disorder Stroke Tuberculosis No Pertinent Family Hx Physical Exam Vital Signs Vital Signs - First Documented 12/04/17 09:57 Temp 98.0 Pulse 85 Resp 18 B/P (MAP) 127/81 (96) Pulse Ox 97 O2 Delivery Room Air Capillary Refill : Height, Weight, BMI Height: 5'7" Weight: 202lbs. 0.0oz. 91.552573cz; 32.6 BMI Method:Stated General Appearance: WD/WN, mild distress HEENT: other (there is a 4 inch laceration the left parietal area.) Neck: full range of motion, supple Cardiovascular: regular rate, rhythm Respiratory: lungs clear Gastrointestinal: normal bowel sounds Back: normal inspection Extremities: other (mild tenderness to the right shoulder. There is no swelling crepitus or instability.) Psychiatric: alert, oriented x 3 Crainal Nerves: normal hearing, normal speech, PERRL Motor/Sensory: no motor deficit, no sensory deficit Progress/Results/Core Measures Results/Orders My Orders Orders - DAI BISHOP MD Ct Head/Cervical Spine Wo (12/04/17 10:26) Shoulder, Right, 3 Views (12/04/17 10:26) Vital Signs/I&O 12/04/17 09:57 Temp 98.0 Pulse 85 Resp 18 B/P (MAP) 127/81 (96) Pulse Ox 97 O2 Delivery Room Air Progress Progress Note : Time: 10:29 Progress Note The left parietal laceration was prepped and copiously cleaned with soap. The wound edges were approximated and point jose. Approximately 10 jose were used for closure. Patient tolerated the procedure well. He has been blood loss was less than 10 mL. I ordered a CT of the head and cervical spine. I've ordered x-ray of the right shoulder. 10:[address] of the head and neck failed to demonstrate evidence of acute pathology. X- ray of the right shoulder was similarly benign on my interpretation. I discussed findings with patient and her . I will ask for close follow- up with her caregiver. I invited her to return to the emergency department should any further problems or questions. Departure Impression Primary Impression: Head injury Qualified Codes: S09.90XA - Unspecified injury of head, initial encounter Additional Impression: Scalp laceration Qualified Codes: S01.01XA - Laceration without foreign body of scalp, initial encounter Disposition: HOME, SELF-CARE Condition: Improved Departure-Patient Inst. Decision time for Depature: 11:11 Referrals: THERON CHAMPION MD (PCP) Primary Care Physician JYOTSNA EMERY (Family) Primary Care Physician Patient Instructions: Minor Head Injury (DC) Add. Discharge Instructions: [place] out in 10 days. Watch for signs infection. Return to the emergency department she have any further problems or questions. Close follow-up with your doctors tomorrow for recheck. All discharge instructions reviewed with patient and/or family. Voiced understanding. DAI BISHOP MD Dec 04, 2017 10:18
--- OUTSIDE RECORDS SUMMARY | 2017-12-04 10:21 | XMS REPORT | Continuity of Care Document ---
Author Author [facility] Address Unknown Phone Unavailable Allergies Active Description Code Type Severity Reaction Onset Reported/Identified Relationship to Patient Clinical Status Yes aspirin Drug Allergy N/A N/A 12/19/2009 Yes codeine Drug Allergy N/A N/A 12/19/2009 Yes NSAIDS Drug Allergy N/A N/A 12/19/2009 Yes aspirin Drug Allergy 12/19/2009 Yes codeine Drug Allergy 12/19/2009 Yes NSAIDS Drug Allergy 12/19/2009 Yes NSAIDS (Non-Steroidal Anti-Inflamma [id number] Drug Allergy Unknown N/A 04/2010 Yes codeine [id number] Drug Allergy Unknown N/A 08/01/2013 Medications There is no data. Problems Date Dx Coded Attending Type Code Diagnosis Diagnosed By 12/19/2009 JYOTSNA EMERY APRN 250.02 Diabetes Ii Uncontrolled 12/19/2009 JYOTSNA EMERY APRN 709.9 Skin Lesions 12/19/2009 JYOTSNA EMERY APRN 250.02 Diabetes Ii Uncontrolled 12/19/2009 JYOTSNA EMERY APRN 709.9 Skin Lesions 12/19/2009 JYOTSNA EMERY APRN 250.02 Diabetes Ii Uncontrolled 12/19/2009 JYOTSNA EMERY APRN 709.9 Skin Lesions 12/19/2009 250.02 Diabetes Ii Uncontrolled 12/19/2009 709.9 Skin Lesions 12/19/2009 250.02 Diabetes Ii Uncontrolled 12/19/2009 709.9 Skin Lesions 12/19/2009 WHITE DDS, JEREMY J 250.02 Diabetes Ii Uncontrolled 12/19/2009 WHITE DDS, JEREMY J 709.9 Skin Lesions 12/19/2009 WHITE DDS, JEREMY J 250.02 Diabetes Ii Uncontrolled 12/19/2009 WHITE DDS, JEREMY J 709.9 Skin Lesions 12/19/2009 COSME RICO DO 250.02 Diabetes Ii Uncontrolled 12/19/2009 RICO DO, COSME K 709.9 Skin Lesions 12/19/2009 YULY BOOKKEEPER RECEPTIONIST, JYOTSNA S 250.02 Diabetes Ii Uncontrolled 12/19/2009 YULY BOOKKEEPER RECEPTIONIST, JYOTSNA S 709.9 Skin Lesions 12/19/2009 YULY BOOKKEEPER RECEPTIONIST, JYOTSNA S 250.02 Diabetes Ii Uncontrolled 12/19/2009 YULY BOOKKEEPER RECEPTIONIST, JYOTSNA S 709.9 Skin Lesions 12/19/2009 YULY BOOKKEEPER RECEPTIONIST, JYOTSNA S 250.02 Diabetes Ii Uncontrolled 12/19/2009 YULY BOOKKEEPER RECEPTIONIST, JYOTSNA S 709.9 Skin Lesions 12/19/2009 YULY BOOKKEEPER RECEPTIONIST, JYOTSNA S 250.02 Diabetes Ii Uncontrolled 12/19/2009 YULY BOOKKEEPER RECEPTIONIST, JYOTSNA S 709.9 Skin Lesions 12/19/2009 RADHA BOOKKEEPER RECEPTIONIST, DOMINIQUE R 250.02 Diabetes Ii Uncontrolled 12/19/2009 RADHA BOOKKEEPER RECEPTIONIST, DOMINIQUE R 709.9 Skin Lesions 12/19/2009 YULY BOOKKEEPER RECEPTIONIST, JYOTSNA S 250.02 Diabetes Ii Uncontrolled 12/19/2009 YULY BOOKKEEPER RECEPTIONIST, JYOTSNA S 709.9 Skin Lesions 12/19/2009 RICO DO, COSME K 250.02 Diabetes Ii Uncontrolled 12/19/2009 RICO DO, COSME K 709.9 Skin Lesions 12/19/2009 YULY BOOKKEEPER RECEPTIONIST, JYOTSNA S 250.02 Diabetes Ii Uncontrolled 12/19/2009 YULY BOOKKEEPER RECEPTIONIST, JYOTSNA S 709.9 Skin Lesions 12/19/2009 RISHABH BOOKKEEPER RECEPTIONIST, YARELIS A 250.02 Diabetes Ii Uncontrolled 12/19/2009 RISHABH BOOKKEEPER RECEPTIONIST, YARELIS A 709.9 Skin Lesions 12/19/2009 YULY BOOKKEEPER RECEPTIONIST, JYOTSNA S 250.02 Diabetes Ii Uncontrolled 12/19/2009 YULY BOOKKEEPER RECEPTIONIST, JYOTSNA S 709.9 Skin Lesions 12/19/2009 RICO DO, COSME K 250.02 Diabetes Ii Uncontrolled 12/19/2009 RICO DO, COSME K 709.9 Skin Lesions 12/19/2009 RISHABH BOOKKEEPER RECEPTIONIST, YARELIS A 250.02 Diabetes Ii Uncontrolled 12/19/2009 RISHABH BOOKKEEPER RECEPTIONIST, YARELIS A 709.9 Skin Lesions 12/19/2009 RICO DO, COSME K 250.02 Diabetes Ii Uncontrolled 12/19/2009 RICO DO, COSME K 709.9 Skin Lesions 12/19/2009 TAN DDS, JOVANA 250.02 Diabetes Ii Uncontrolled 12/19/2009 TAN DDS, JOVANA 709.9 Skin Lesions 12/19/2009 TAN DDS, JOVANA 250.02 Diabetes Ii Uncontrolled 12/19/2009 TAN DDS, JOVANA 709.9 Skin Lesions 12/19/2009 TAN DDS, JOVANA 250.02 Diabetes Ii Uncontrolled 12/19/2009 TAN DDS, JOVANA 709.9 Skin Lesions 12/19/2009 RADHA EMERY APRNA S 250.02 Diabetes Ii Uncontrolled 12/19/2009 TJ EMERY APRNNDA S 709.9 Skin Lesions 12/19/2009 RADHIKA GARCIA APRN D 250.02 Diabetes Ii Uncontrolled 12/19/2009 RADHIKA GARCIA APRN 709.9 Skin Lesions 12/19/2009 JUDY DDS, CLARIBEL D 250.02 Diabetes Ii Uncontrolled 12/19/2009 JUDY DDS, CLARIBEL D 709.9 Skin Lesions 12/19/2009 RADHIKA GARCIA APRN 250.02 Diabetes Ii Uncontrolled 12/19/2009 RADHIKA GARCIA APRN 709.9 Skin Lesions 12/22/2009 YULY AMOR JYOTSNA S 682.5 Cellulitis And Abscess Of Buttock 12/22/2009 YULY AMOR JYOTSNA S 682.5 Cellulitis And Abscess Of Buttock 12/22/2009 YULY AMOR JYOTSNA S 682.5 Cellulitis And Abscess Of Buttock 12/22/2009 682.5 Cellulitis And Abscess Of Buttock 12/22/2009 682.5 Cellulitis And Abscess Of Buttock 12/22/2009 VERONIKA FELTONSJEREMY J 682.5 Cellulitis And Abscess Of Buttock 12/22/2009 WHITE DDS, JEREMY J 682.5 Cellulitis And Abscess Of Buttock 12/22/2009 RICO DOENRIQUEA K 682.5 Cellulitis And Abscess Of Buttock 12/22/2009 YULY BOOKKEEPER RECEPTIONIST, JYOTSNA S 682.5 Cellulitis And Abscess Of Buttock 12/22/2009 YULY BOOKKEEPER RECEPTIONIST, JYOTSNA S 682.5 Cellulitis And Abscess Of Buttock 12/22/2009 YULY BOOKKEEPER RECEPTIONIST, JYOTSNA S 682.5 Cellulitis And Abscess Of Buttock 12/22/2009 YULY BOOKKEEPER RECEPTIONIST, JYOTSNA S 682.5 Cellulitis And Abscess Of Buttock 12/22/2009 DOMINIQUE GARCIA APRN 682.5 Cellulitis And Abscess Of Buttock 12/22/2009 YULY BOOKKEEPER RECEPTIONIST, JYOTSNA S 682.5 Cellulitis And Abscess Of Buttock 12/22/2009 RICO DOENRIQUEA K 682.5 Cellulitis And Abscess Of Buttock 12/22/2009 YULY BOOKKEEPER RECEPTIONIST, JYOTSNA S 682.5 Cellulitis And Abscess Of Buttock 12/22/2009 RISHABH FELDMANN, YARELIS A 682.5 Cellulitis And Abscess Of Buttock 12/22/2009 YULY BOOKKEEPER RECEPTIONIST, JYOTSNA S 682.5 Cellulitis And Abscess Of Buttock 12/22/2009 RICO DOENRIQUEA K 682.5 Cellulitis And Abscess Of Buttock 12/22/2009 RISHABH BOOKKEEPER RECEPTIONIST YARELIS A 682.5 Cellulitis And Abscess Of Buttock 12/22/2009 RICO DOENRIQUEA K 682.5 Cellulitis And Abscess Of Buttock 12/22/2009 BRITNEY DDS, JOVANA 682.5 Cellulitis And Abscess Of Buttock 12/22/2009 BRITNEY DDS, JOVANA 682.5 Cellulitis And Abscess Of Buttock 12/22/2009 TAN DDS, JOVANA 682.5 Cellulitis And Abscess Of Buttock 12/22/2009 YULY FELDMANN, JYOTSNA S 682.5 Cellulitis And Abscess Of Buttock 12/22/2009 RADHIKA GARCIA APRN 682.5 Cellulitis And Abscess Of Buttock 12/22/2009 CLARIBEL KIM DDS 682.5 Cellulitis And Abscess Of Buttock 12/22/2009 RADHIKA GARCIA APRN 682.5 Cellulitis And Abscess Of Buttock 03/05/2010 TJ EMERY APRNNDA S 300.4 Dysthymic Disorder 03/05/2010 YULY BOOKKEEPER RECEPTIONIST, JYOTSNA S 401.1 BENIGN ESSENTIAL HYPERTENSION 03/05/2010 YULY FELDMANN, JYOTSNA S 625.6 Stress Incontinence Female 03/05/2010 YULY BOOKKEEPER RECEPTIONIST, JYOTSNA S 300.4 Dysthymic Disorder 03/05/2010 YULY BOOKKEEPER RECEPTIONIST, JYOTSNA S 401.1 BENIGN ESSENTIAL HYPERTENSION 03/05/2010 YULY FELDMANN, JYOTSNA S 625.6 Stress Incontinence Female 03/05/2010 YULY BOOKKEEPER RECEPTIONIST, JYOTSNA S 300.4 Dysthymic Disorder 03/05/2010 YULY FELDMANN, JYOTSNA S 401.1 BENIGN ESSENTIAL HYPERTENSION 03/05/2010 YULY FELDAMNN, JYOTSNA S 625.6 Stress Incontinence Female 03/05/2010 300.4 Dysthymic Disorder 03/05/2010 401.1 BENIGN ESSENTIAL HYPERTENSION 03/05/2010 625.6 Stress Incontinence Female 03/05/2010 300.4 Dysthymic Disorder 03/05/2010 401.1 BENIGN ESSENTIAL HYPERTENSION 03/05/2010 625.6 Stress Incontinence Female 03/05/2010 WHITE DDS, JEREMY J 300.4 Dysthymic Disorder 03/05/2010 WHITE DDS, JEREMY J 401.1 BENIGN ESSENTIAL HYPERTENSION 03/05/2010 WHITE DDS, JEREMY J 625.6 Stress Incontinence Female 03/05/2010 WHITE DDS, JEREMY J 300.4 Dysthymic Disorder 03/05/2010 WHITE DDS, JEREMY J 401.1 BENIGN ESSENTIAL HYPERTENSION 03/05/2010 WHITE DDS, JEREMY J 625.6 Stress Incontinence Female 03/05/2010 RICO DO, COSME K 300.4 Dysthymic Disorder 03/05/2010 RICO DO, COSME K 401.1 BENIGN ESSENTIAL HYPERTENSION 03/05/2010 RICO DO, COSME K 625.6 Stress Incontinence Female 03/05/2010 YULY FELDMANN, JYOTSNA S 300.4 Dysthymic Disorder 03/05/2010 YULY FELDMANN, JYOTSNA S 401.1 BENIGN ESSENTIAL HYPERTENSION 03/05/2010 YULY BOOKKEEPER RECEPTIONIST, JYOTSNA S 625.6 Stress Incontinence Female 03/05/2010 YULY AMOR, JYOTSNA S 300.4 Dysthymic Disorder 03/05/2010 YULY BOOKKEEPER RECEPTIONIST, JYOTSNA S 401.1 BENIGN ESSENTIAL HYPERTENSION 03/05/2010 YULY FELDMANN, JYOTSNA S 625.6 Stress Incontinence Female 03/05/2010 YULY FELDMANN, JYOTSNA S 300.4 Dysthymic Disorder 03/05/2010 YULY BOOKKEEPER RECEPTIONIST, JYOTSNA S 401.1 BENIGN ESSENTIAL HYPERTENSION 03/05/2010 YULY BOOKKEEPER RECEPTIONIST, JYOTSNA S 625.6 Stress Incontinence Female 03/05/2010 YULY FELDMANN, JYOTSNA S 300.4 Dysthymic Disorder 03/05/2010 YULY BOOKKEEPER RECEPTIONIST, JYOTSNA S 401.1 BENIGN ESSENTIAL HYPERTENSION 03/05/2010 YULY FELDMANN, JYOTSNA S 625.6 Stress Incontinence Female 03/05/2010 RADHA FELDMANN, DOMINIQUE R 300.4 Dysthymic Disorder 03/05/2010 RADHA FELDMANN, DOMINIQUE R 401.1 BENIGN ESSENTIAL HYPERTENSION 03/05/2010 RADHA FELDMANN, DOMINIQUE R 625.6 Stress Incontinence Female 03/05/2010 YULY FELDMANN, JYOTSNA S 300.4 Dysthymic Disorder 03/05/2010 YULY FELDMANN, JYOTSNA S 401.1 BENIGN ESSENTIAL HYPERTENSION 03/05/2010 YULY FELDMANN, JYOTSNA S 625.6 Stress Incontinence Female 03/05/2010 RICO DO, COSME K 300.4 Dysthymic Disorder 03/05/2010 RICO DO, COSME K 401.1 BENIGN ESSENTIAL HYPERTENSION 03/05/2010 RICO DO, COSME K 625.6 Stress Incontinence Female 03/05/2010 YULY FELDMANN, JYOTSNA S 300.4 Dysthymic Disorder 03/05/2010 YULY FELDMANN, JYOTSNA S 401.1 BENIGN ESSENTIAL HYPERTENSION 03/05/2010 YULY FELDMANN, JYOTSNA S 625.6 Stress Incontinence Female 03/05/2010 RISHABH FELDMANN, YARELIS A 300.4 Dysthymic Disorder 03/05/2010 RISHABH BOOKKEEPER RECEPTIONIST, YARELIS A 401.1 BENIGN ESSENTIAL HYPERTENSION 03/05/2010 RISHABH BOOKKEEPER RECEPTIONIST, YARELIS A 625.6 Stress Incontinence Female 03/05/2010 YULY FELDMANN, JYOTSNA S 300.4 Dysthymic Disorder 03/05/2010 YULY FELDMANN, JYOTSNA S 401.1 BENIGN ESSENTIAL HYPERTENSION 03/05/2010 YULYRICARDO FELDMANN, JYOTSNA S 625.6 Stress Incontinence Female 03/05/2010 RICO DO, COSME K 300.4 Dysthymic Disorder 03/05/2010 RICO DO, CSOME K 401.1 BENIGN ESSENTIAL HYPERTENSION 03/05/2010 RICO DO, COSME K 625.6 Stress Incontinence Female 03/05/2010 RISHABH BOOKKEEPER RECEPTIONIST, YARELIS A 300.4 Dysthymic Disorder 03/05/2010 RISHABH BOOKKEEPER RECEPTIONIST, YARELIS A 401.1 BENIGN ESSENTIAL HYPERTENSION 03/05/2010 RISHABH BOOKKEEPER RECEPTIONIST, YARELIS A 625.6 Stress Incontinence Female 03/05/2010 RICO DO, COSME K 300.4 Dysthymic Disorder 03/05/2010 RICO DO, COSME K 401.1 BENIGN ESSENTIAL HYPERTENSION 03/05/2010 RICO DO, COSME K 625.6 Stress Incontinence Female 03/05/2010 TAN DDS, JOVANA 300.4 Dysthymic Disorder 03/05/2010 TAN DDS, JOVANA 401.1 BENIGN ESSENTIAL HYPERTENSION 03/05/2010 TAN DDS, JOVANA 625.6 Stress Incontinence Female 03/05/2010 TAN DDS, JOVANA 300.4 Dysthymic Disorder 03/05/2010 TAN DDS, JOVANA 401.1 BENIGN ESSENTIAL HYPERTENSION 03/05/2010 TAN DDS, JOVANA 625.6 Stress Incontinence Female 03/05/2010 TAN DDS, JOVANA 300.4 Dysthymic Disorder 03/05/2010 TAN DDS, JOVANA 401.1 BENIGN ESSENTIAL HYPERTENSION 03/05/2010 TAN DDS, JOVANA 625.6 Stress Incontinence Female 03/05/2010 YULY AMOR, JYOTSNA S 300.4 Dysthymic Disorder 03/05/2010 YULY AMOR, JYOTSNA S 401.1 BENIGN ESSENTIAL HYPERTENSION 03/05/2010 YULY AMOR, JYOTSNA S 625.6 Stress Incontinence Female 03/05/2010 RADHIKA GARCIA APRN 300.4 Dysthymic Disorder 03/05/2010 RADHIKA GARCIA APRN 401.1 BENIGN ESSENTIAL HYPERTENSION 03/05/2010 RADHIKA GARCIA APRN 625.6 Stress Incontinence Female 03/05/2010 JUDY FELTONSCLARIBEL 300.4 Dysthymic Disorder 03/05/2010 JUDY DDSCLARIBEL 401.1 BENIGN ESSENTIAL HYPERTENSION 03/05/2010 JUDY DDSCLARIBEL 625.6 Stress Incontinence Female 03/05/2010 GARCIARADHIKA Gambino APRN 300.4 Dysthymic Disorder 03/05/2010 RADHIKA GARCIA APRN 401.1 BENIGN ESSENTIAL HYPERTENSION 03/05/2010 RADHIKA GARCIA APRN 625.6 Stress Incontinence Female 03/23/2010 YULY BOOKKEEPER RECEPTIONIST, JYOTSNA S 729.5 Pain In Limb 03/23/2010 YULY BOOKKEEPER RECEPTIONIST, JYOTSNA S 729.5 Pain In Limb 03/23/2010 YULY BOOKKEEPER RECEPTIONIST, JYOTSNA S 729.5 Pain In Limb 03/23/2010 729.5 Pain In Limb 03/23/2010 729.5 Pain In Limb 03/23/2010 VERONIKA FELTONSJEREMY J 729.5 Pain In Limb 03/23/2010 VERONIKA FELTONSJEREMY 729.5 Pain In Limb 03/23/2010 RICO DO, COSME K 729.5 Pain In Limb 03/23/2010 YULY BOOKKEEPER RECEPTIONIST, JYOTSNA S 729.5 Pain In Limb 03/23/2010 YULY BOOKKEEPER RECEPTIONIST, JYOTSNA S 729.5 Pain In Limb 03/23/2010 YULY BOOKKEEPER RECEPTIONIST, JYOTSNA S 729.5 Pain In Limb 03/23/2010 YULY BOOKKEEPER RECEPTIONIST, JYOTSNA S 729.5 Pain In Limb 03/23/2010 DOMINIQUE GARCIA APRN R 729.5 Pain In Limb 03/23/2010 YULY BOOKKEEPER RECEPTIONIST, JYOTSNA S 729.5 Pain In Limb 03/23/2010 RICO DO, COSME K 729.5 Pain In Limb 03/23/2010 YULY BOOKKEEPER RECEPTIONIST, JYOTSNA S 729.5 Pain In Limb 03/23/2010 RISHABH BOOKKEEPER RECEPTIONIST, YARELIS A 729.5 Pain In Limb 03/23/2010 YULY BOOKKEEPER RECEPTIONIST, JYOTSNA S 729.5 Pain In Limb 03/23/2010 RICO DO, COSME K 729.5 Pain In Limb 03/23/2010 RISHABHPatricia AMOR YARELIS A 729.5 Pain In Limb 03/23/2010 RICO DO, COSME K 729.5 Pain In Limb 03/23/2010 TAN DDS, JOVANA 729.5 Pain In Limb 03/23/2010 TAN DDS, JOVANA 729.5 Pain In Limb 03/23/2010 TAN DDS, JOVANA 729.5 Pain In Limb 03/23/2010 RADHA EMERY APRNA S 729.5 Pain In Limb 03/23/2010 RADHIKA GARCIA APRN 729.5 Pain In Limb 03/23/2010 JUDY DDS, CLARIBEL Jarrett 729.5 Pain In Limb 03/23/2010 RADHIKA GARCIA APRN 729.5 Pain In Limb 04/27/2010 YULY AMOR JYOTSNA S 250.00 DIABETES MELLITUS TYPE 2 04/27/2010 YULY AMOR JYOTSNA S 307.81 Tension Headache 04/27/2010 YULY AMOR JYOTSNA S 250.00 DIABETES MELLITUS TYPE 2 04/27/2010 YULY AMOR JYOTSNA S 307.81 Tension Headache 04/27/2010 YULY AMOR JYOTSNA S 250.00 DIABETES MELLITUS TYPE 2 04/27/2010 YULY AMOR JYOTSNA S 307.81 Tension Headache 04/27/2010 250.00 DIABETES MELLITUS TYPE 2 04/27/2010 307.81 Tension Headache 04/27/2010 250.00 DIABETES MELLITUS TYPE 2 04/27/2010 307.81 Tension Headache 04/27/2010 WHITE DDS, JEREMY J 250.00 DIABETES MELLITUS TYPE 2 04/27/2010 WHITE DDS, JEREMY J 307.81 Tension Headache 04/27/2010 WHITE DDS, JEREMY J 250.00 DIABETES MELLITUS TYPE 2 04/27/2010 WHITE DDS, JEREMY J 307.81 Tension Headache 04/27/2010 RICO DO COSME K 250.00 DIABETES MELLITUS TYPE 2 04/27/2010 RICO DO COSME K 307.81 Tension Headache 04/27/2010 YULY AMOR JYOTSNA S 250.00 DIABETES MELLITUS TYPE 2 04/27/2010 YULY AMOR JYOTSNA S 307.81 Tension Headache 04/27/2010 YULY BOOKKEEPER RECEPTIONIST, JYOTSNA S 250.00 DIABETES MELLITUS TYPE 2 04/27/2010 YULY BOOKKEEPER RECEPTIONIST, JYOTSNA S 307.81 Tension Headache 04/27/2010 YULY BOOKKEEPER RECEPTIONIST, JYOTSNA S 250.00 DIABETES MELLITUS TYPE 2 04/27/2010 YULY BOOKKEEPER RECEPTIONIST, JYOTSNA S 307.81 Tension Headache 04/27/2010 YULY BOOKKEEPER RECEPTIONIST, JYOTSNA S 250.00 DIABETES MELLITUS TYPE 2 04/27/2010 YULY BOOKKEEPER RECEPTIONIST, JYOTSNA S 307.81 Tension Headache 04/27/2010 RADHA BOOKKEEPER RECEPTIONIST, DOMINIQUE R 250.00 DIABETES MELLITUS TYPE 2 04/27/2010 GARCIA BOOKKEEPER RECEPTIONIST, DOMINIQUE R 307.81 Tension Headache 04/27/2010 YULY BOOKKEEPER RECEPTIONIST, JYOTSNA S 250.00 DIABETES MELLITUS TYPE 2 04/27/2010 YULY BOOKKEEPER RECEPTIONIST, JYOTSNA S 307.81 Tension Headache 04/27/2010 RICO DO, COSME K 250.00 DIABETES MELLITUS TYPE 2 04/27/2010 RICO DO, COSME K 307.81 Tension Headache 04/27/2010 YULY BOOKKEEPER RECEPTIONIST, JYOTSNA S 250.00 DIABETES MELLITUS TYPE 2 04/27/2010 YULY BOOKKEEPER RECEPTIONIST, JYOTSNA S 307.81 Tension Headache 04/27/2010 RISHABH BOOKKEEPER RECEPTIONIST, YARELIS A 250.00 DIABETES MELLITUS TYPE 2 04/27/2010 RISHABH BOOKKEEPER RECEPTIONIST, YARELIS A 307.81 Tension Headache 04/27/2010 YULY BOOKKEEPER RECEPTIONIST, JYOTSNA S 250.00 DIABETES MELLITUS TYPE 2 04/27/2010 YULY BOOKKEEPER RECEPTIONIST, JYOTSNA S 307.81 Tension Headache 04/27/2010 RICO DO, COSME K 250.00 DIABETES MELLITUS TYPE 2 04/27/2010 R[place] DO, COSME K 307.81 Tension Headache 04/27/2010 RISHABH BOOKKEEPER RECEPTIONIST, YARELIS A 250.00 DIABETES MELLITUS TYPE 2 04/27/2010 RISHABH BOOKKEEPER RECEPTIONIST, YARELIS A 307.81 Tension Headache 04/27/2010 RICO DO, COSME K 250.00 DIABETES MELLITUS TYPE 2 04/27/2010 R[place] DO, COSME K 307.81 Tension Headache 04/27/2010 TAN DDS JOVANA 250.00 DIABETES MELLITUS TYPE 2 04/27/2010 TAN DDS JOVANA 307.81 Tension Headache 04/27/2010 TAN DDS, JOVANA 250.00 DIABETES MELLITUS TYPE 2 04/27/2010 TAN DDS, JOVANA 307.81 Tension Headache 04/27/2010 TAN DDS, JOVANA 250.00 DIABETES MELLITUS TYPE 2 04/27/2010 TAN DDS, JOVANA 307.81 Tension Headache 04/27/2010 YULY FELDMANN, JYOTSNA S 250.00 DIABETES MELLITUS TYPE 2 04/27/2010 YULY FELDMANN, JYOTSNA S 307.81 Tension Headache 04/27/2010 GARCIA BOOKKEEPER RECEPTIONIST, RADHIKA D 250.00 DIABETES MELLITUS TYPE 2 04/27/2010 GARCIA BOOKKEEPER RECEPTIONIST, RADHIKA D 307.81 Tension Headache 04/27/2010 JUDY DDS, CLARIBEL D 250.00 DIABETES MELLITUS TYPE 2 04/27/2010 JUDY DDS, CLARIBEL D 307.81 Tension Headache 04/27/2010 JOSE BOOKKEEPER RECEPTIONISTREJION D 250.00 DIABETES MELLITUS TYPE 2 04/27/2010 REJI GARCIA APRNON D 307.81 Tension Headache 05/19/2010 YULY FELDMANN, JYOTSNA S 599.0 Urinary Tract Infection 05/19/2010 YULY FELDMANN, JYOTSNA S 599.0 Urinary Tract Infection 05/19/2010 YULY FELDMANN, JYOTSNA S 599.0 Urinary Tract Infection 05/19/2010 599.0 Urinary Tract Infection 05/19/2010 599.0 Urinary Tract Infection 05/19/2010 WHITE DDS, JEREMY J 599.0 Urinary Tract Infection 05/19/2010 WHITE DDS, JEREMY J 599.0 Urinary Tract Infection 05/19/2010 COSME [place] DO K 599.0 Urinary Tract Infection 05/19/2010 YULY BOOKKEEPER RECEPTIONIST, JYOTSNA S 599.0 Urinary Tract Infection 05/19/2010 YULY FELDMANN, JYOTSNA S 599.0 Urinary Tract Infection 05/19/2010 YULY BOOKKEEPER RECEPTIONIST, JYOTSNA S 599.0 Urinary Tract Infection 05/19/2010 YULY BOOKKEEPER RECEPTIONIST, JYOTSNA S 599.0 Urinary Tract Infection 05/19/2010 DOMINIQUE GARCIA APRN 599.0 Urinary Tract Infection 05/19/2010 YULY AMOR, JYOTSNA S 599.0 Urinary Tract Infection 05/19/2010 RICO DO, COSME K 599.0 Urinary Tract Infection 05/19/2010 YULY AMOR, JYOTSNA S 599.0 Urinary Tract Infection 05/19/2010 RISHABH BOOKKEEPER RECEPTIONIST, YARELIS A 599.0 Urinary Tract Infection 05/19/2010 YULY AMOR, JYOTSNA S 599.0 Urinary Tract Infection 05/19/2010 RICO DO, COSME K 599.0 Urinary Tract Infection 05/19/2010 RISHABH BOOKKEEPER RECEPTIONIST, YARELIS A 599.0 Urinary Tract Infection 05/19/2010 RICO DO, COSME K 599.0 Urinary Tract Infection 05/19/2010 TAN DDS, JOVANA 599.0 Urinary Tract Infection 05/19/2010 TAN DDS, JOVANA 599.0 Urinary Tract Infection 05/19/2010 TAN DDS, JOVANA 599.0 Urinary Tract Infection 05/19/2010 RADHA EMERY APRNA S 599.0 Urinary Tract Infection 05/19/2010 RADHIKA GARCIA APRN 599.0 Urinary Tract Infection 05/19/2010 JUDY DDS, CLARIBEL D 599.0 Urinary Tract Infection 05/19/2010 RADHIKA GARCIA APRN 599.0 Urinary Tract Infection 08/20/2010 RADHA EMERY APRNA S 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 08/20/2010 TJ EMERY APRNNDA S 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 08/20/2010 TJ EMERY APRNNDA S 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 08/20/2010 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 08/20/2010 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 08/20/2010 WHITE DDS, JEREMY J 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 08/20/2010 WHITE DDS, JEREMY J 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 08/20/2010 R[place] DO, COSME K 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 08/20/2010 TJ EMERY APRNNDA S 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 08/20/2010 TJ EMERY APRNNDA S 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 08/20/2010 YULY BOOKKEEPER RECEPTIONIST, JYOTSNA S 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 08/20/2010 YULY BOOKKEEPER RECEPTIONIST, JYOTSNA S 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 08/20/2010 DOMINIQUE GARCIA APRN 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 08/20/2010 YULY BOOKKEEPER RECEPTIONIST, JYOTSNA S 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 08/20/2010 R[place] DO COSME K 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 08/20/2010 YULY BOOKKEEPER RECEPTIONIST, JYOTSNA S 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 08/20/2010 RISHABH BOOKKEEPER RECEPTIONIST, YARELIS A 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 08/20/2010 YULY BOOKKEEPER RECEPTIONIST, JYOTSNA S 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 08/20/2010 R[place] DO COSME K 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 08/20/2010 RISHABH BOOKKEEPER RECEPTIONIST, YARELIS A 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 08/20/2010 R[place] DO COSME K 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 08/20/2010 BRITNEY DDS, JOVANA 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 08/20/2010 TAN DDS, JOVANA 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 08/20/2010 BRITNEY FELTONS, JOVANA 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 08/20/2010 YULY FELDMANN, JYOTSNA S 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 08/20/2010 RADHIKA GARCIA APRN 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 08/20/2010 JUDY FELTONSCLARIBEL 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 08/20/2010 RADHIKA GARCIA APRN D 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 11/17/2010 YULY FELDMANN, JYOTSNA 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 11/17/2010 YULY BOOKKEEPER RECEPTIONIST, JYOTSNA S 354.0 Carpal Tunnel Syndrome 11/17/2010 YULY BOOKKEEPER RECEPTIONIST, JYOTSNA 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 11/17/2010 YULY BOOKKEEPER RECEPTIONIST, JYOTSNA S 354.0 Carpal Tunnel Syndrome 11/17/2010 YULY FELDMANN, JYOTSNA 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 11/17/2010 YULY BOOKKEEPER RECEPTIONIST, JYOTSNA S 354.0 Carpal Tunnel Syndrome 11/17/2010 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 11/17/2010 354.0 Carpal Tunnel Syndrome 11/17/2010 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 11/17/2010 354.0 Carpal Tunnel Syndrome 11/17/2010 WHITE DDS, JEREMY J 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 11/17/2010 WHITE DDS, JEREMY J 354.0 Carpal Tunnel Syndrome 11/17/2010 WHITE DDS, JEREMY J 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 11/17/2010 WHITE DDS, JEREMY J 354.0 Carpal Tunnel Syndrome 11/17/2010 RICO DO, COSME K 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 11/17/2010 RICO DO, COSME K 354.0 Carpal Tunnel Syndrome 11/17/2010 YULY BOOKKEEPER RECEPTIONIST, JYOTSNA 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 11/17/2010 YULY BOOKKEEPER RECEPTIONIST, JYOTSNA S 354.0 Carpal Tunnel Syndrome 11/17/2010 YULY BOOKKEEPER RECEPTIONIST, JYOTSNA 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 11/17/2010 YULY BOOKKEEPER RECEPTIONIST, JYOTSNA S 354.0 Carpal Tunnel Syndrome 11/17/2010 YULY BOOKKEEPER RECEPTIONIST, JYOTSNA 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 11/17/2010 YULY BOOKKEEPER RECEPTIONIST, JYOTSNA S 354.0 Carpal Tunnel Syndrome 11/17/2010 YULY BOOKKEEPER RECEPTIONIST, JYOTSNA 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 11/17/2010 YULY BOOKKEEPER RECEPTIONIST, JYOTSNA S 354.0 Carpal Tunnel Syndrome 11/17/2010 GARCIA BOOKKEEPER RECEPTIONIST, DOMINIQUE R 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 11/17/2010 GARCIA BOOKKEEPER RECEPTIONIST, DOMINIQUE R 354.0 Carpal Tunnel Syndrome 11/17/2010 YULY BOOKKEEPER RECEPTIONIST, JYOTSNA 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 11/17/2010 YULY BOOKKEEPER RECEPTIONIST, JYOTSNA S 354.0 Carpal Tunnel Syndrome 11/17/2010 RICO DO, COSME K 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 11/17/2010 RICO DO, COSME K 354.0 Carpal Tunnel Syndrome 11/17/2010 YULY BOOKKEEPER RECEPTIONIST, JYOTSNA 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 11/17/2010 YULY BOOKKEEPER RECEPTIONIST, JYOTSNA S 354.0 Carpal Tunnel Syndrome 11/17/2010 RISHABH BOOKKEEPER RECEPTIONIST, YARELIS A 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 11/17/2010 RISHABH BOOKKEEPER RECEPTIONIST, YARELIS A 354.0 Carpal Tunnel Syndrome 11/17/2010 YULY BOOKKEEPER RECEPTIONIST, JYOTSNA 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 11/17/2010 YULY BOOKKEEPER RECEPTIONIST, JYOTSNA S 354.0 Carpal Tunnel Syndrome 11/17/2010 RICO DO, COSME K 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 11/17/2010 RICO DO, COSME K 354.0 Carpal Tunnel Syndrome 11/17/2010 RISHABH BOOKKEEPER RECEPTIONIST, YARELIS A 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 11/17/2010 RISHABH BOOKKEEPER RECEPTIONIST, YARELIS A 354.0 Carpal Tunnel Syndrome 11/17/2010 RICO DO, COSME K 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 11/17/2010 RICO DO, COSME K 354.0 Carpal Tunnel Syndrome 11/17/2010 TAN DDS, JOVANA 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0 Carpal Tunnel Syndrome 11/17/2010 CLARIBEL KIM DD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 11/17/2010 CLARIBEL KIM DDS 354.0 Carpal Tunnel Syndrome 11/17/2010 RADHIKA GARCIA APRN 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 11/17/2010 RADHIKA GARCIA APRN 354.0 Carpal Tunnel Syndrome 12/15/2010 YULY BOOKKEEPER RECEPTIONIST, JYOTSNA S 300.00 ANXIETY STATE UNSPECIFIED 12/15/2010 YULY BOOKKEEPER RECEPTIONIST JYOTSNA S 780.57 SLEEP APNEA 12/15/2010 YULY BOOKKEEPER RECEPTIONIST, JYOTSNA S 780.79 fatigue 12/15/2010 YULY BOOKKEEPER RECEPTIONIST, JYOTSNA S V04.81 Flu Dx (3 Yrs And Above, Im) 12/15/2010 YULY BOOKKEEPER RECEPTIONIST, JYOTSNA S 300.00 ANXIETY STATE UNSPECIFIED 12/15/2010 YULY BOOKKEEPER RECEPTIONIST, JYOTSNA S 780.57 SLEEP APNEA 12/15/2010 YULY BOOKKEEPER RECEPTIONIST, JYOTSNA S 780.79 fatigue 12/15/2010 YULY BOOKKEEPER RECEPTIONIST, JYOTSNA S V04.81 Flu Dx (3 Yrs And Above, Im) 12/15/2010 YULY BOOKKEEPER RECEPTIONIST, JYOTSNA S 300.00 ANXIETY STATE UNSPECIFIED 12/15/2010 YULY BOOKKEEPER RECEPTIONIST, JYOTSNA S 780.57 SLEEP APNEA 12/15/2010 YULY BOOKKEEPER RECEPTIONIST, JYOTSNA S 780.79 fatigue 12/15/2010 YULY BOOKKEEPER RECEPTIONIST, JYOTSNA S V04.81 Flu Dx (3 Yrs And Above, Im) 12/15/2010 300.00 ANXIETY STATE UNSPECIFIED 12/15/2010 780.57 SLEEP APNEA 12/15/2010 780.79 fatigue 12/15/2010 V04.81 Flu Dx (3 Yrs And Above, Im) 12/15/2010 300.00 ANXIETY STATE UNSPECIFIED 12/15/2010 780.57 SLEEP APNEA 12/15/2010 780.79 fatigue 12/15/2010 V04.81 Flu Dx (3 Yrs And Above, Im) 12/15/2010 WHITE DDS, JEREMY J 300.00 ANXIETY STATE UNSPECIFIED 12/15/2010 WHITE DDS, JEREMY J 780.57 SLEEP APNEA 12/15/2010 WHITE DDS, JEREMY J 780.79 fatigue 12/15/2010 WHITE DDS, JEREMY J V04.81 Flu Dx (3 Yrs And Above, Im) 12/15/2010 WHITE DDS, JEREMY J 300.00 ANXIETY STATE UNSPECIFIED 12/15/2010 WHITE DDS, JEREMY J 780.57 SLEEP APNEA 12/15/2010 WHITE DDS, JEREMY J 780.79 fatigue 12/15/2010 WHITE DDS, JEREMY J V04.81 Flu Dx (3 Yrs And Above, Im) 12/15/2010 RICO DO, COSME K 300.00 ANXIETY STATE UNSPECIFIED 12/15/2010 RICO DO, COSME K 780.57 SLEEP APNEA 12/15/2010 RICO DO, COSME K 780.79 fatigue 12/15/2010 RICO DO, COSME K V04.81 Flu Dx (3 Yrs And Above, Im) 12/15/2010 YULY BOOKKEEPER RECEPTIONIST, JYOTSNA S 300.00 ANXIETY STATE UNSPECIFIED 12/15/2010 YULY BOOKKEEPER RECEPTIONIST, JYOTSNA S 780.57 SLEEP APNEA 12/15/2010 YULY BOOKKEEPER RECEPTIONIST, JYOTSNA S 780.79 fatigue 12/15/2010 YULY BOOKKEEPER RECEPTIONIST, JYOTSNA S V04.81 Flu Dx (3 Yrs And Above, Im) 12/15/2010 YULY BOOKKEEPER RECEPTIONIST, JYOTSNA S 300.00 ANXIETY STATE UNSPECIFIED 12/15/2010 YULY BOOKKEEPER RECEPTIONIST, JYOTSNA S 780.57 SLEEP APNEA 12/15/2010 YULY BOOKKEEPER RECEPTIONIST, JYOTSNA S 780.79 fatigue 12/15/2010 YULY BOOKKEEPER RECEPTIONIST, JYOTSNA S V04.81 Flu Dx (3 Yrs And Above, Im) 12/15/2010 YULY BOOKKEEPER RECEPTIONIST, JYOTSNA S 300.00 ANXIETY STATE UNSPECIFIED 12/15/2010 YULY BOOKKEEPER RECEPTIONIST, JYOTSNA S 780.57 SLEEP APNEA 12/15/2010 YULY BOOKKEEPER RECEPTIONIST, JYOTSNA S 780.79 fatigue 12/15/2010 YULY BOOKKEEPER RECEPTIONIST, JYOTSNA S V04.81 Flu Dx (3 Yrs And Above, Im) 12/15/2010 YULY BOOKKEEPER RECEPTIONIST, JYOTSNA S 300.00 ANXIETY STATE UNSPECIFIED 12/15/2010 YULY BOOKKEEPER RECEPTIONIST, JYOTSNA S 780.57 SLEEP APNEA 12/15/2010 YULY BOOKKEEPER RECEPTIONIST, JYOTSNA S 780.79 fatigue 12/15/2010 YULY BOOKKEEPER RECEPTIONIST, JYOTSNA S V04.81 Flu Dx (3 Yrs And Above, Im) 12/15/2010 GARCIA BOOKKEEPER RECEPTIONIST, DOMINIQUE R 300.00 ANXIETY STATE UNSPECIFIED 12/15/2010 GARCIA BOOKKEEPER RECEPTIONIST, DOMINIQUE R 780.57 SLEEP APNEA 12/15/2010 GARCIA BOOKKEEPER RECEPTIONIST, DOMINIQUE R 780.79 fatigue 12/15/2010 GARCIA BOOKKEEPER RECEPTIONIST, DOMINIQUE R V04.81 Flu Dx (3 Yrs And Above, Im) 12/15/2010 YULY BOOKKEEPER RECEPTIONIST, JYOTSNA S 300.00 ANXIETY STATE UNSPECIFIED 12/15/2010 YULY BOOKKEEPER RECEPTIONIST, JYOTSNA S 780.57 SLEEP APNEA 12/15/2010 YULY BOOKKEEPER RECEPTIONIST, JYOTSNA S 780.79 fatigue 12/15/2010 YULY BOOKKEEPER RECEPTIONIST, JYOTSNA S V04.81 Flu Dx (3 Yrs And Above, Im) 12/15/2010 RICO DO, COSME K 300.00 ANXIETY STATE UNSPECIFIED 12/15/2010 RICO DO, COSME K 780.57 SLEEP APNEA 12/15/2010 RICO DO, COSME K 780.79 fatigue 12/15/2010 RICO DO, COSME K V04.81 Flu Dx (3 Yrs And Above, Im) 12/15/2010 YULY BOOKKEEPER RECEPTIONIST, JYOTSNA S 300.00 ANXIETY STATE UNSPECIFIED 12/15/2010 YULY BOOKKEEPER RECEPTIONIST, JYOTSNA S 780.57 SLEEP APNEA 12/15/2010 YULY BOOKKEEPER RECEPTIONIST, JYOTSNA S 780.79 FATIGUE 12/15/2010 YULY BOOKKEEPER RECEPTIONIST, JYOTSNA S V04.81 Flu Dx (3 Yrs And Above, Im) 12/15/2010 RISHABH BOOKKEEPER RECEPTIONIST, YARELIS A 300.00 ANXIETY STATE UNSPECIFIED 12/15/2010 RISHABH BOOKKEEPER RECEPTIONIST, YARELIS A 780.57 SLEEP APNEA 12/15/2010 RISHABH BOOKKEEPER RECEPTIONIST, YARELIS A 780.79 FATIGUE 12/15/2010 RISHABH BOOKKEEPER RECEPTIONIST, YARELIS A V04.81 Flu Dx (3 Yrs And Above, Im) 12/15/2010 YULY BOOKKEEPER RECEPTIONIST, JYOTSNA S 300.00 ANXIETY STATE UNSPECIFIED 12/15/2010 YULY BOOKKEEPER RECEPTIONIST, JYOTSNA S 780.57 SLEEP APNEA 12/15/2010 YULY BOOKKEEPER RECEPTIONIST, JYOTSNA S 780.79 FATIGUE 12/15/2010 YULY BOOKKEEPER RECEPTIONIST, JYOTSNA S V04.81 Flu Dx (3 Yrs And Above, Im) 12/15/2010 RICO DO, COSME K 300.00 ANXIETY STATE UNSPECIFIED 12/15/2010 RICO DO, COSME K 780.57 SLEEP APNEA 12/15/2010 RICO DO, COSME K 780.79 FATIGUE 12/15/2010 RICO DO, COSME K V04.81 Flu Dx (3 Yrs And Above, Im) 12/15/2010 RISHABH BOOKKEEPER RECEPTIONIST, YARELIS A 300.00 ANXIETY STATE UNSPECIFIED 12/15/2010 RISHABH BOOKKEEPER RECEPTIONIST, YARELIS A 780.57 SLEEP APNEA 12/15/2010 RISHABH BOOKKEEPER RECEPTIONIST, YARELIS A 780.79 FATIGUE 12/15/2010 RISHABH BOOKKEEPER RECEPTIONIST, YARELIS A V04.81 Flu Dx (3 Yrs And Above, Im) 12/15/2010 RICO DO, COSME K 300.00 ANXIETY STATE UNSPECIFIED 12/15/2010 RICO DO, COSME K 780.57 SLEEP APNEA 12/15/2010 RICO DO, COSME K 780.79 FATIGUE 12/15/2010 RICO DO, COSME K V04.81 Flu Dx (3 Yrs And Above, Im) 12/15/2010 TAN DDS, JOVANA 300.00 ANXIETY STATE UNSPECIFIED 12/15/2010 TAN DDS, JOVANA 780.57 SLEEP APNEA 12/15/2010 TAN DDS, JOVANA 780.79 FATIGUE 12/15/2010 TAN DDS, JOVANA V04.81 Flu Dx (3 Yrs And Above, Im) 12/15/2010 TAN DDS, JOVANA 300.00 ANXIETY STATE UNSPECIFIED 12/15/2010 TAN DDS, JOVANA 780.57 SLEEP APNEA 12/15/2010 TAN DDS, JOVANA 780.79 FATIGUE 12/15/2010 TAN DDS, JOVANA V04.81 Flu Dx (3 Yrs And Above, Im) 12/15/2010 TAN DDS, JOVANA 300.00 ANXIETY STATE UNSPECIFIED 12/15/2010 TAN DDS, JOVANA 780.57 SLEEP APNEA 12/15/2010 TAN DDS, JOVANA 780.79 FATIGUE 12/15/2010 TAN DDSJOVANA V04.81 Flu Dx (3 Yrs And Above, Im) 12/15/2010 RADHA EMERY APRNA S 300.00 ANXIETY STATE UNSPECIFIED 12/15/2010 TJ EMERY APRNNDA S 780.57 SLEEP APNEA 12/15/2010 TJ EMERY APRNNDA S 780.79 FATIGUE 12/15/2010 JYOTSNA EMERY APRN S V04.81 Flu Dx (3 Yrs And Above, Im) 12/15/2010 RADHIKA GARCIA APRN D 300.00 ANXIETY STATE UNSPECIFIED 12/15/2010 RADHIKA GARCIA APRN D 780.57 SLEEP APNEA 12/15/2010 RADHIKA GARCIA APRN D 780.79 FATIGUE 12/15/2010 RADHIKA GARCIA APRN D V04.81 Flu Dx (3 Yrs And Above, Im) 12/15/2010 JUDY FELTONSSABASIE D 300.00 ANXIETY STATE UNSPECIFIED 12/15/2010 JUDY FELTONSCLARIBEL D 780.57 SLEEP APNEA 12/15/2010 JUDY DDSCLARIBEL D 780.79 FATIGUE 12/15/2010 JUDY DDSCLARIBEL D V04.81 Flu Dx (3 Yrs And Above, Im) 12/15/2010 RADHIKA GARCIA APRN D 300.00 ANXIETY STATE UNSPECIFIED 12/15/2010 RADHIKA GARCIA APRN D 780.57 SLEEP APNEA 12/15/2010 RADHIKA GARCIA APRN D 780.79 FATIGUE 12/15/2010 RADHIKA GARCIA APRN D V04.81 Flu Dx (3 Yrs And Above, Im) 12/25/2010 Ot 250.60 DIAB W NEURO MANIFEST, TYPE II OR UNSPEC 12/25/2010 Ot 272.4 HYPERLIPIDEMIA NEC/NOS 12/25/2010 Ot 276.8 HYPOPOTASSEMIA 12/25/2010 Ot 311 DEPRESSIVE DISORDER NEC 12/25/2010 Ot 357.2 NEUROPATHY IN DIABETES 12/25/2010 Ot 401.9 HYPERTENSION NOS 12/25/2010 Ot 411.1 INTERMED CORONARY SYND 12/25/2010 Ot 414.01 CORONARY ATHEROSCLEROSIS OF [place] CORON 12/25/2010 Ot 530.81 ESOPHAGEAL REFLUX 12/25/2010 Ot 715.90 OSTEOARTHROS NOS-UNSPEC 12/25/2010 Ot V17.3 FAM HX- ISCHEM HEART DIS 12/25/2010 Ot V45.82 PERCUTANEOUS TRANSLUM CORON ANGIOPLASTY 12/25/2010 Ot V58.67 LONG-TERM ( CURRENT) USE OF INSULIN 01/01/2011 Ot 250.60 DIAB W NEURO MANIFEST, TYPE II OR UNSPEC 01/01/2011 Ot 272.4 HYPERLIPIDEMIA NEC/NOS 01/01/2011 Ot 275.2 DIS MAGNESIUM METABOLISM 01/01/2011 Ot 311 DEPRESSIVE DISORDER NEC 01/01/2011 Ot 357.2 NEUROPATHY IN DIABETES 01/01/2011 Ot 401.9 HYPERTENSION NOS 01/01/2011 Ot 411.1 INTERMED CORONARY SYND 01/01/2011 Ot 414.01 CORONARY ATHEROSCLEROSIS OF [place] CORON 01/01/2011 Ot V45.82 PERCUTANEOUS TRANSLUM CORON ANGIOPLASTY 01/12/2011 JYOTSNA EMERY APRN S 414.01 CORONARY ARTERY STENOSIS MULTI-VESSEL 3-VESSEL PROXIMAL 01/12/2011 JYOTSNA EMERY APRN S 414.01 CORONARY ARTERY STENOSIS MULTI-VESSEL 3-VESSEL PROXIMAL 01/12/2011 JYOTSNA EMERY APRN S 414.01 CORONARY ARTERY STENOSIS MULTI-VESSEL 3-VESSEL PROXIMAL 01/12/2011 414.01 CORONARY ARTERY STENOSIS MULTI-VESSEL 3-VESSEL PROXIMAL 01/12/2011 414.01 CORONARY ARTERY STENOSIS MULTI-VESSEL 3-VESSEL PROXIMAL 01/12/2011 WHITE DDS, JEREMY J 414.01 CORONARY ARTERY STENOSIS MULTI-VESSEL 3-VESSEL PROXIMAL 01/12/2011 WHITE DDS, JEREMY J 414.01 CORONARY ARTERY STENOSIS MULTI-VESSEL 3-VESSEL PROXIMAL 01/12/2011 COSME [place] DO K 414.01 CORONARY ARTERY STENOSIS MULTI-VESSEL 3-VESSEL PROXIMAL 01/12/2011 JYOTSNA EMERY APRN S 414.01 CORONARY ARTERY STENOSIS MULTI-VESSEL 3-VESSEL PROXIMAL 01/12/2011 JYOTSNA EMERY APRN S 414.01 CORONARY ARTERY STENOSIS MULTI-VESSEL 3-VESSEL PROXIMAL 01/12/2011 JYOTSNA EMERY APRN S 414.01 CORONARY ARTERY STENOSIS MULTI-VESSEL 3-VESSEL PROXIMAL 01/12/2011 JYOTSNA EMERY APRN S 414.01 CORONARY ARTERY STENOSIS MULTI-VESSEL 3-VESSEL PROXIMAL 01/12/2011 DOMINIQUE GARCIA APRN 414.01 CORONARY ARTERY STENOSIS MULTI-VESSEL 3-VESSEL PROXIMAL 01/12/2011 RADHA EMERY APRNA S 414.01 CORONARY ARTERY STENOSIS MULTI-VESSEL 3-VESSEL PROXIMAL 01/12/2011 RICO DO, COSME K 414.01 CORONARY ARTERY STENOSIS MULTI-VESSEL 3-VESSEL PROXIMAL 01/12/2011 TJ EMERY APRNNDA S 414.01 CORONARY ARTERY STENOSIS MULTI-VESSEL 3-VESSEL PROXIMAL 01/12/2011 RISHABH AMOR, YARELIS A 414.01 CORONARY ARTERY STENOSIS MULTI-VESSEL 3-VESSEL PROXIMAL 01/12/2011 RADHA EMERY APRNA S 414.01 CORONARY ARTERY STENOSIS MULTI-VESSEL 3-VESSEL PROXIMAL 01/12/2011 RICO DO, COSME K 414.01 CORONARY ARTERY STENOSIS MULTI-VESSEL 3-VESSEL PROXIMAL 01/12/2011 RISHABH AMOR, YARELIS A 414.01 CORONARY ARTERY STENOSIS MULTI-VESSEL 3-VESSEL PROXIMAL 01/12/2011 RICO DO, COSME K 414.01 CORONARY ARTERY STENOSIS MULTI-VESSEL 3-VESSEL PROXIMAL 01/12/2011 TAN DDS, JOVANA 414.01 CORONARY ARTERY STENOSIS MULTI-VESSEL 3-VESSEL PROXIMAL 01/12/2011 TAN DDS, JOVANA 414.01 CORONARY ARTERY STENOSIS MULTI-VESSEL 3-VESSEL PROXIMAL 01/12/2011 TAN DDS, JOVANA 414.01 CORONARY ARTERY STENOSIS MULTI-VESSEL 3-VESSEL PROXIMAL 01/12/2011 JYOTSNA EMERY APRN S 414.01 CORONARY ARTERY STENOSIS MULTI-VESSEL 3-VESSEL PROXIMAL 01/12/2011 RADHIKA GARCIA APRN 414.01 CORONARY ARTERY STENOSIS MULTI-VESSEL 3-VESSEL PROXIMAL 01/12/2011 CLARIBEL KIM DDS 414.01 CORONARY ARTERY STENOSIS MULTI-VESSEL 3-VESSEL PROXIMAL 01/12/2011 RADHIKA GARCIA APRN 414.01 CORONARY ARTERY STENOSIS MULTI-VESSEL 3-VESSEL PROXIMAL 01/17/2011 Ot 924.00 CONTUSION OF THIGH 01/17/2011 Ot 924.11 CONTUSION OF KNEE 01/17/2011 Ot 924.21 CONTUSION OF ANKLE 01/17/2011 Ot 959.6 HIP THIGH INJURY NOS 01/17/2011 Ot E000.8 OTHER EXTERNAL CAUSE STATUS 01/17/2011 Ot E849.0 ACCIDENT IN HOME 01/17/2011 Ot E880.9 FALL ON STAIR/STEP NEC 03/23/2011 Ot 250.60 DIAB W NEURO MANIFEST, TYPE II OR UNSPEC 03/23/2011 Ot 272.4 HYPERLIPIDEMIA NEC/NOS 03/23/2011 Ot 296.90 UNSPECIFIED EPISODIC MOOD DISORDER 03/23/2011 Ot 357.2 NEUROPATHY IN DIABETES 03/23/2011 Ot 414.01 CORONARY ATHEROSCLEROSIS OF [place] CORON 03/23/2011 Ot 794.30 ABN CARDIOVASC STUDY NOS 03/23/2011 Ot V45.82 PERCUTANEOUS TRANSLUM CORON ANGIOPLASTY 03/23/2011 Ot V58.63 LONG-TERM( CURRENT)USE OF ANTIPLATELET/AN 03/23/2011 Ot V58.69 OTH MED,LT, CURRENT USE 03/31/2011 YULY BOOKKEEPER RECEPTIONIST, JYOTSNA S 786.2 Cough 03/31/2011 YULY BOOKKEEPER RECEPTIONIST, JYOTSNA S 786.2 Cough 03/31/2011 YULY BOOKKEEPER RECEPTIONIST, JYOTSNA S 786.2 Cough 03/31/2011 786.2 Cough 03/31/2011 786.2 Cough 03/31/2011 JEREMY BANDA DDS 786.2 Cough 03/31/2011 VERONIKA FELTONSJEREMY 786.2 Cough 03/31/2011 ENRIQUE [place] DOA K 786.2 Cough 03/31/2011 YULY BOOKKEEPER RECEPTIONIST, JYOTSNA S 786.2 Cough 03/31/2011 YULY BOOKKEEPER RECEPTIONIST, JYOTSNA S 786.2 Cough 03/31/2011 YULY BOOKKEEPER RECEPTIONIST, JYOTSNA S 786.2 Cough 03/31/2011 YULY BOOKKEEPER RECEPTIONIST, JYOTSNA S 786.2 Cough 03/31/2011 STEVEN GARCIA APRNIA R 786.2 Cough 03/31/2011 YULY FELDMANN, JYOTSNA S 786.2 Cough 03/31/2011 ENRIQUE [place] DOA K 786.2 Cough 03/31/2011 YULY BOOKKEEPER RECEPTIONIST, JYOTSNA S 786.2 Cough 03/31/2011 RISHABH BOOKKEEPER RECEPTIONIST, YARELIS A 786.2 Cough 03/31/2011 YULY BOOKKEEPER RECEPTIONIST, JYOTSNA S 786.2 Cough 03/31/2011 RICO DO COSME K 786.2 Cough 03/31/2011 RISHABH BOOKKEEPER RECEPTIONIST, YARELIS A 786.2 Cough 03/31/2011 R[place] DO COSME K 786.2 Cough 03/31/2011 JOVANA TAN DDS 786.2 Cough 03/31/2011 TAN DDS, JOVANA 786.2 Cough 03/31/2011 TAN DDS, JOVANA 786.2 Cough 03/31/2011 JYOTSNA EMERY APRN 786.2 Cough 03/31/2011 RADHIKA GARCIA APRN 786.2 Cough 03/31/2011 JUDY DDS, CLARIBEL D 786.2 Cough 03/31/2011 RADHIKA GARCIA APRN 786.2 Cough 05/11/2011 Ot 250.00 DIAB RANDALL WO COMPL, TYPE II OR UNSPEC TY 05/11/2011 Ot 272.4 HYPERLIPIDEMIA NEC/NOS 05/11/2011 Ot 311 DEPRESSIVE DISORDER NEC 05/11/2011 Ot 356.9 IDIO PERIPH NEURPTHY NOS 05/11/2011 Ot 401.9 HYPERTENSION NOS 05/11/2011 Ot 411.1 INTERMED CORONARY SYND 05/11/2011 Ot 412 OLD MYOCARDIAL INFARCT 05/11/2011 Ot 414.01 CORONARY ATHEROSCLEROSIS OF [place] CORON 05/11/2011 Ot 458.9 HYPOTENSION NOS 05/18/2011 JYOTSNA EMERY APRN S 790.6 Abnormal Blood Chemistry 05/18/2011 JYOTSNA EMERY APRN S 790.6 Abnormal Blood Chemistry 05/18/2011 JYOTSNA EMERY APRN S 790.6 Abnormal Blood Chemistry 05/18/2011 790.6 Abnormal Blood Chemistry 05/18/2011 790.6 Abnormal Blood Chemistry 05/18/2011 WHITE DDS, JEREMY J 790.6 Abnormal Blood Chemistry 05/18/2011 WHITE DDS, JEREMY J 790.6 Abnormal Blood Chemistry 05/18/2011 COSME [place] DO 790.6 Abnormal Blood Chemistry 05/18/2011 JYOTSNA EMERY APRN S 790.6 Abnormal Blood Chemistry 05/18/2011 RADHA EMERY APRNA S 790.6 Abnormal Blood Chemistry 05/18/2011 JYOTSNA EMERY APRN S 790.6 Abnormal Blood Chemistry 05/18/2011 RADHA EMERY APRNA S 790.6 Abnormal Blood Chemistry 05/18/2011 DOMINIQUE GARCIA APRN 790.6 Abnormal Blood Chemistry 05/18/2011 YULY BOOKKEEPER RECEPTIONIST, JYOTSNA S 790.6 Abnormal Blood Chemistry 05/18/2011 R[place] DO, COSME K 790.6 Abnormal Blood Chemistry 05/18/2011 RADHA EMERY APRNA S 790.6 Abnormal Blood Chemistry 05/18/2011 RISHABHYARELIS BAUTISTA APRN A 790.6 Abnormal Blood Chemistry 05/18/2011 JYOTSNA EMERY APRN S 790.6 Abnormal Blood Chemistry 05/18/2011 R[place] DO COSME K 790.6 Abnormal Blood Chemistry 05/18/2011 YARELIS KEATING APRN A 790.6 Abnormal Blood Chemistry 05/18/2011 [place] DO, COSME K 790.6 Abnormal Blood Chemistry 05/18/2011 TAN DDS, JOVANA 790.6 Abnormal Blood Chemistry 05/18/2011 TAN DDSJOVANA 790.6 Abnormal Blood Chemistry 05/18/2011 TAN DDS, JOVANA 790.6 Abnormal Blood Chemistry 05/18/2011 JYOTSNA EMERY APRN S 790.6 Abnormal Blood Chemistry 05/18/2011 RADHIKA GARCIA APRN 790.6 Abnormal Blood Chemistry 05/18/2011 JUDY MCMAHAN, CLARIBEL Jarrett 790.6 Abnormal Blood Chemistry 05/18/2011 RADHIKA GARCIA APRN 790.6 Abnormal Blood Chemistry 08/18/2011 Ot 250.00 DIAB RANDALL WO COMPL, TYPE II OR UNSPEC TY 08/18/2011 Ot 272.4 HYPERLIPIDEMIA NEC/NOS 08/18/2011 Ot 311 DEPRESSIVE DISORDER NEC 08/18/2011 Ot 356.9 IDIO PERIPH NEURPTHY NOS 08/18/2011 Ot 401.9 HYPERTENSION NOS 08/18/2011 Ot 414.01 CORONARY ATHEROSCLEROSIS OF [place] CORON 08/18/2011 Ot 786.50 CHEST PAIN NOS 08/18/2011 Ot 787.1 HEARTBURN 08/18/2011 Ot 789.06 ABDOMINAL PAIN, EPIGASTRIC 08/18/2011 Ot V45.82 PERCUTANEOUS TRANSLUM CORON ANGIOPLASTY 08/26/2011 JYOTSNA EMERY APRN S 386.10 Peripheral Vertigo Unspecified 08/26/2011 JYOTSNA EMERY APRN S 786.50 UNSPECIFIED CHEST PAIN 08/26/2011 JYOTSNA EMERY APRN S 386.10 Peripheral Vertigo Unspecified 08/26/2011 YULY BOOKKEEPER RECEPTIONIST, JYOTSNA S 786.50 UNSPECIFIED CHEST PAIN 08/26/2011 YULY FELDMANN, JYOTSNA S 386.10 Peripheral Vertigo Unspecified 08/26/2011 YULY BOOKKEEPER RECEPTIONIST, JYOTSNA S 786.50 UNSPECIFIED CHEST PAIN 08/26/2011 386.10 Peripheral Vertigo Unspecified 08/26/2011 786.50 UNSPECIFIED CHEST PAIN 08/26/2011 386.10 Peripheral Vertigo Unspecified 08/26/2011 786.50 UNSPECIFIED CHEST PAIN 08/26/2011 WHITE DDS, JEREMY J 386.10 Peripheral Vertigo Unspecified 08/26/2011 WHITE DDS, JEREMY J 786.50 UNSPECIFIED CHEST PAIN 08/26/2011 WHITE DDS, JEREMY J 386.10 Peripheral Vertigo Unspecified 08/26/2011 WHITE DDS, JEREMY J 786.50 UNSPECIFIED CHEST PAIN 08/26/2011 RICO DO, COSME K 386.10 Peripheral Vertigo Unspecified 08/26/2011 [place] DO, COSME K 786.50 UNSPECIFIED CHEST PAIN 08/26/2011 YULY FELDMANN, JYOTSNA S 386.10 Peripheral Vertigo Unspecified 08/26/2011 YULY BOOKKEEPER RECEPTIONIST, JYOTSNA S 786.50 UNSPECIFIED CHEST PAIN 08/26/2011 YULY BOOKKEEPER RECEPTIONIST, JYOTSNA S 386.10 Peripheral Vertigo Unspecified 08/26/2011 YULY BOOKKEEPER RECEPTIONIST, JYOTSNA S 786.50 UNSPECIFIED CHEST PAIN 08/26/2011 YULY BOOKKEEPER RECEPTIONIST, JYOTSNA S 386.10 Peripheral Vertigo Unspecified 08/26/2011 YULY BOOKKEEPER RECEPTIONIST, JYOTSNA S 786.50 UNSPECIFIED CHEST PAIN 08/26/2011 YULY BOOKKEEPER RECEPTIONIST, JYOTSNA S 386.10 Peripheral Vertigo Unspecified 08/26/2011 YULY BOOKKEEPER RECEPTIONIST, JYOTSNA S 786.50 UNSPECIFIED CHEST PAIN 08/26/2011 GARCIA BOOKKEEPER RECEPTIONIST, DOMINIQUE R 386.10 Peripheral Vertigo Unspecified 08/26/2011 GARCIA BOOKKEEPER RECEPTIONIST, DOMINIQUE R 786.50 UNSPECIFIED CHEST PAIN 08/26/2011 YULY BOOKKEEPER RECEPTIONIST, JYOTSNA S 386.10 Peripheral Vertigo Unspecified 08/26/2011 YULY BOOKKEEPER RECEPTIONIST, JYOTSNA S 786.50 UNSPECIFIED CHEST PAIN 08/26/2011 RICO DO, COSME K 386.10 Peripheral Vertigo Unspecified 08/26/2011 [place] DO, COSME K 786.50 UNSPECIFIED CHEST PAIN 08/26/2011 YULY BOOKKEEPER RECEPTIONIST, JYOTSNA S 386.10 Peripheral Vertigo Unspecified 08/26/2011 YULY BOOKKEEPER RECEPTIONIST, JYOTSNA S 786.50 UNSPECIFIED CHEST PAIN 08/26/2011 RISHABH BOOKKEEPER RECEPTIONIST, YARELIS A 386.10 Peripheral Vertigo Unspecified 08/26/2011 RISHABH BOOKKEEPER RECEPTIONIST, YARELIS A 786.50 UNSPECIFIED CHEST PAIN 08/26/2011 YULY BOOKKEEPER RECEPTIONIST, JYOTSNA S 386.10 Peripheral Vertigo Unspecified 08/26/2011 YULY BOOKKEEPER RECEPTIONIST, JYOTSNA S 786.50 UNSPECIFIED CHEST PAIN 08/26/2011 RICO DO, COSME K 386.10 Peripheral Vertigo Unspecified 08/26/2011 RICO DO, COSME K 786.50 UNSPECIFIED CHEST PAIN 08/26/2011 RISHABH BOOKKEEPER RECEPTIONIST, YARELIS A 386.10 Peripheral Vertigo Unspecified 08/26/2011 RISHABH BOOKKEEPER RECEPTIONIST, YARELIS A 786.50 UNSPECIFIED CHEST PAIN 08/26/2011 RICO DO, COSME K 386.10 Peripheral Vertigo Unspecified 08/26/2011 RICO DO, COSME K 786.50 UNSPECIFIED CHEST PAIN 08/26/2011 TAN DDS, JOVANA 386.10 Peripheral Vertigo Unspecified 08/26/2011 TAN DDS, JOVANA 786.50 UNSPECIFIED CHEST PAIN 08/26/2011 TAN DDS, JOVANA 386.10 Peripheral Vertigo Unspecified 08/26/2011 TAN DDS, JOVANA 786.50 UNSPECIFIED CHEST PAIN 08/26/2011 TAN DDS, JOVANA 386.10 Peripheral Vertigo Unspecified 08/26/2011 TAN DDS, JOVANA 786.50 UNSPECIFIED CHEST PAIN 08/26/2011 YULY BOOKKEEPER RECEPTIONIST, JYOTSNA S 386.10 Peripheral Vertigo Unspecified 08/26/2011 YULY BOOKKEEPER RECEPTIONIST, JYOTSNA S 786.50 UNSPECIFIED CHEST PAIN 08/26/2011 JOSE AMOR, RADHIKA Jarrett 386.10 Peripheral Vertigo Unspecified 08/26/2011 RADHIKA GARCIA APRN 786.50 UNSPECIFIED CHEST PAIN 08/26/2011 JUDY DDS, CLARIBEL D 386.10 Peripheral Vertigo Unspecified 08/26/2011 JUDY DDSCLARIBEL 786.50 UNSPECIFIED CHEST PAIN 08/26/2011 GARCIA RADHIKA AMOR 386.10 Peripheral Vertigo Unspecified 08/26/2011 RADHIKA GARCIA APRN 786.50 UNSPECIFIED CHEST PAIN 11/01/2011 YULY BOOKKEEPER RECEPTIONIST, JYOTSNA S 786.52 Chest Wall Pain 11/01/2011 YULY FELDMANN, JYOTSNA S 787.1 Heartburn 11/01/2011 YULY BOOKKEEPER RECEPTIONIST, JYOTSNA S 787.3 Gas/bloating Pain 11/01/2011 YULY BOOKKEEPER RECEPTIONIST, JYOTSNA S 789.06 Abdominal Pain Epigastric 11/01/2011 YULY BOOKKEEPER RECEPTIONIST, JYOTSNA S 786.52 Chest Wall Pain 11/01/2011 YULY BOOKKEEPER RECEPTIONIST, JYOTSNA S 787.1 Heartburn 11/01/2011 YULY BOOKKEEPER RECEPTIONIST, JYOTSNA S 787.3 Gas/bloating Pain 11/01/2011 YULY BOOKKEEPER RECEPTIONIST, JYOTSNA S 789.06 Abdominal Pain Epigastric 11/01/2011 YULY BOOKKEEPER RECEPTIONIST, JYOTSNA S 786.52 Chest Wall Pain 11/01/2011 YULY BOOKKEEPER RECEPTIONIST, JYOTSNA S 787.1 Heartburn 11/01/2011 YULY BOOKKEEPER RECEPTIONIST, JYOTSNA S 787.3 Gas/bloating Pain 11/01/2011 YULY BOOKKEEPER RECEPTIONIST, JYOTSNA S 789.06 Abdominal Pain Epigastric 11/01/2011 786.52 Chest Wall Pain 11/01/2011 787.1 Heartburn 11/01/2011 787.3 Gas/bloating Pain 11/01/2011 789.06 Abdominal Pain Epigastric 11/01/2011 786.52 Chest Wall Pain 11/01/2011 787.1 Heartburn 11/01/2011 787.3 Gas/bloating Pain 11/01/2011 789.06 Abdominal Pain Epigastric 11/01/2011 WHITE DDS, JEREMY J 786.52 Chest Wall Pain 11/01/2011 WHITE DDS, JEREMY J 787.1 Heartburn 11/01/2011 WHITE DDS, JEREMY J 787.3 Gas/bloating Pain 11/01/2011 WHITE DDS, JEREMY J 789.06 Abdominal Pain Epigastric 11/01/2011 WHITE DDS, JEREMY J 786.52 Chest Wall Pain 11/01/2011 WHITE DDS, JEREMY J 787.1 Heartburn 11/01/2011 WHITE DDS, JEREMY J 787.3 Gas/bloating Pain 11/01/2011 WHITE DDS, JEREMY J 789.06 Abdominal Pain Epigastric 11/01/2011 RICO DO, COSME K 786.52 Chest Wall Pain 11/01/2011 RICO DO, OCSME K 787.1 Heartburn 11/01/2011 RICO DO, COSME K 787.3 Gas/bloating Pain 11/01/2011 RICO DO, COSME K 789.06 Abdominal Pain Epigastric 11/01/2011 YULY BOOKKEEPER RECEPTIONIST, JYOTSNA S 786.52 Chest Wall Pain 11/01/2011 YULY BOOKKEEPER RECEPTIONIST, JYOTSNA S 787.1 Heartburn 11/01/2011 YULY BOOKKEEPER RECEPTIONIST, JYOTSNA S 787.3 Gas/bloating Pain 11/01/2011 YULY BOOKKEEPER RECEPTIONIST, JYOTSNA S 789.06 Abdominal Pain Epigastric 11/01/2011 YULY BOOKKEEPER RECEPTIONIST, JYOTSNA S 786.52 Chest Wall Pain 11/01/2011 YULY BOOKKEEPER RECEPTIONIST, JYOTSNA S 787.1 Heartburn 11/01/2011 YULY BOOKKEEPER RECEPTIONIST, JYOTSNA S 787.3 Gas/bloating Pain 11/01/2011 YULY BOOKKEEPER RECEPTIONIST, JYOTSNA S 789.06 Abdominal Pain Epigastric 11/01/2011 YULY BOOKKEEPER RECEPTIONIST, JYOTSNA S 786.52 Chest Wall Pain 11/01/2011 YULY BOOKKEEPER RECEPTIONIST, JYOTSNA S 787.1 Heartburn 11/01/2011 YULY BOOKKEEPER RECEPTIONIST, JYOTSNA S 787.3 Gas/bloating Pain 11/01/2011 YULY BOOKKEEPER RECEPTIONIST, JYOTSNA S 789.06 Abdominal Pain Epigastric 11/01/2011 YULY BOOKKEEPER RECEPTIONIST, JYOTSNA S 786.52 Chest Wall Pain 11/01/2011 YULY BOOKKEEPER RECEPTIONIST, JYOTSNA S 787.1 Heartburn 11/01/2011 YULY BOOKKEEPER RECEPTIONIST, JYOTSNA S 787.3 Gas/bloating Pain 11/01/2011 YULY BOOKKEEPER RECEPTIONIST, JYOTSNA S 789.06 Abdominal Pain Epigastric 11/01/2011 GARCIA BOOKKEEPER RECEPTIONIST, DOMINIQUE R 786.52 Chest Wall Pain 11/01/2011 GARCIA BOOKKEEPER RECEPTIONIST, DOMINIQUE R 787.1 Heartburn 11/01/2011 GARCIA BOOKKEEPER RECEPTIONIST, DOMINIQUE R 787.3 Gas/bloating Pain 11/01/2011 GARCIA BOOKKEEPER RECEPTIONIST, DOMINIQUE R 789.06 Abdominal Pain Epigastric 11/01/2011 YULY BOOKKEEPER RECEPTIONIST, JYOTSNA S 786.52 Chest Wall Pain 11/01/2011 YULY BOOKKEEPER RECEPTIONIST, JYOTSNA S 787.1 Heartburn 11/01/2011 YULY BOOKKEEPER RECEPTIONIST, JYOTSNA S 787.3 Gas/bloating Pain 11/01/2011 YULY BOOKKEEPER RECEPTIONIST, JYOTSNA S 789.06 Abdominal Pain Epigastric 11/01/2011 RICO DO, COSME K 786.52 Chest Wall Pain 11/01/2011 RICO DO, COSME K 787.1 Heartburn 11/01/2011 RICO DO, COSME K 787.3 Gas/bloating Pain 11/01/2011 RICO DO, COSME K 789.06 Abdominal Pain Epigastric 11/01/2011 YULY BOOKKEEPER RECEPTIONIST, JYOTSNA S 786.52 Chest Wall Pain 11/01/2011 YULY BOOKKEEPER RECEPTIONIST, JYOTSNA S 787.1 Heartburn 11/01/2011 YULY BOOKKEEPER RECEPTIONIST, JYOTSNA S 787.3 Gas/bloating Pain 11/01/2011 YULY BOOKKEEPER RECEPTIONIST, JYOTSNA S 789.06 Abdominal Pain Epigastric 11/01/2011 RISHABH BOOKKEEPER RECEPTIONIST, YARELIS A 786.52 Chest Wall Pain 11/01/2011 RISHABH BOOKKEEPER RECEPTIONIST, YARELIS A 787.1 Heartburn 11/01/2011 RISHABH BOOKKEEPER RECEPTIONIST, YARELIS A 787.3 Gas/bloating Pain 11/01/2011 RISHABH BOOKKEEPER RECEPTIONIST, YARELIS A 789.06 Abdominal Pain Epigastric 11/01/2011 YULY BOOKKEEPER RECEPTIONIST, JYOTSNA S 786.52 Chest Wall Pain 11/01/2011 YULY BOOKKEEPER RECEPTIONIST, JYOTSNA S 787.1 Heartburn 11/01/2011 YULY BOOKKEEPER RECEPTIONIST, JYOTSNA S 787.3 Gas/bloating Pain 11/01/2011 YULY AMOR, JYOTSNA S 789.06 Abdominal Pain Epigastric 11/01/2011 RICO DO, COSME K 786.52 Chest Wall Pain 11/01/2011 RICO DO, COSME K 787.1 Heartburn 11/01/2011 RICO DO, COSME K 787.3 Gas/bloating Pain 11/01/2011 RICO DO, COSME K 789.06 Abdominal Pain Epigastric 11/01/2011 RISHABH BOOKKEEPER RECEPTIONIST, YARELIS A 786.52 Chest Wall Pain 11/01/2011 RISHABH BOOKKEEPER RECEPTIONIST, YARELSI A 787.1 Heartburn 11/01/2011 RISHABH BOOKKEEPER RECEPTIONIST, YARELIS A 787.3 Gas/bloating Pain 11/01/2011 RISHABH BOOKKEEPER RECEPTIONIST, YARELIS A 789.06 Abdominal Pain Epigastric 11/01/2011 RICO DO, COSME K 786.52 Chest Wall Pain 11/01/2011 RICO DO, COSME K 787.1 Heartburn 11/01/2011 RICO DO, COSME K 787.3 Gas/bloating Pain 11/01/2011 RICO DO, COSME K 789.06 Abdominal Pain Epigastric 11/01/2011 TAN DDS, JOVANA 786.52 Chest Wall Pain 11/01/2011 TAN DDS, JOVANA 787.1 Heartburn 11/01/2011 TAN DDS, JOVANA 787.3 Gas/bloating Pain 11/01/2011 TAN DDS, JOVANA 789.06 Abdominal Pain Epigastric 11/01/2011 TAN DDS, JOVANA 786.52 Chest Wall Pain 11/01/2011 ATN DDS, JOVNAA 787.1 Heartburn 11/01/2011 TAN DDS, JOVANA 787.3 Gas/bloating Pain 11/01/2011 TAN DDS, JOVANA 789.06 Abdominal Pain Epigastric 11/01/2011 TAN DDS, JOVANA 786.52 Chest Wall Pain 11/01/2011 TAN DDS, JOVANA 787.1 Heartburn 11/01/2011 TAN DDS, JOVANA 787.3 Gas/bloating Pain 11/01/2011 TAN DDS, JOVANA 789.06 Abdominal Pain Epigastric 11/01/2011 TJ EMERY APRNNDA S 786.52 Chest Wall Pain 11/01/2011 TJ EMERY APRNNDA S 787.1 Heartburn 11/01/2011 YULY AMOR, JYOTSNA S 787.3 Gas/bloating Pain 11/01/2011 RADHA EMERY APRNA S 789.06 Abdominal Pain Epigastric 11/01/2011 RADHIKA GARCIA APRN D 786.52 Chest Wall Pain 11/01/2011 RADHIKA GARCIA APRN D 787.1 Heartburn 11/01/2011 RADHIKA GARCIA APRN D 787.3 Gas/bloating Pain 11/01/2011 RADHIKA GARCIA APRN D 789.06 Abdominal Pain Epigastric 11/01/2011 JUDY DDS, CLARIBEL D 786.52 Chest Wall Pain 11/01/2011 JUDY DDS, CLARIBEL D 787.1 Heartburn 11/01/2011 JUDY DDS, CLARIBEL D 787.3 Gas/bloating Pain 11/01/2011 JUDY DDS, CLARIBEL D 789.06 Abdominal Pain Epigastric 11/01/2011 RADHIKA GARCIA APRN D 786.52 Chest Wall Pain 11/01/2011 RADHIKA GARCIA APRN D 787.1 Heartburn 11/01/2011 RADHIKA GARCIA APRN D 787.3 Gas/bloating Pain 11/01/2011 RADHIKA GARCIA APRN D 789.06 Abdominal Pain Epigastric 11/23/2011 Ot 530.81 ESOPHAGEAL REFLUX 11/23/2011 Ot 553.3 DIAPHRAGMATIC HERNIA 11/23/2011 Ot V76.51 SCREEN MAL NEOP-COLON 12/08/2011 RADHA EMERY APRNA S 530.85 CHEEK'S ESOPHAGUS 12/08/2011 RADHA EMERY APRNA S 530.85 CHEEK'S ESOPHAGUS 12/08/2011 RADHA EMERY APRNA S 530.85 CHEEK'S ESOPHAGUS 12/08/2011 530.85 CHEEK'S ESOPHAGUS 12/08/2011 530.85 CHEEK'S ESOPHAGUS 12/08/2011 JEREMY BANDA DDS 530.85 CHEEK'S ESOPHAGUS 12/08/2011 VERONIKA MCMAHAN, JEREMY Do 530.85 CHEEK'S ESOPHAGUS 12/08/2011 ENRIQUE [place] DOA K 530.85 CHEEK'S ESOPHAGUS 12/08/2011 YULY AMOR, JYOTSNA S 530.85 CHEEK'S ESOPHAGUS 12/08/2011 YULY FELDMANN, JYOTSNA S 530.85 CHEEK'S ESOPHAGUS 12/08/2011 YULY FELDMANN, JYOTSNA S 530.85 CHEEK'S ESOPHAGUS 12/08/2011 YULY FELDMANN, JYOTSNA S 530.85 CHEEK'S ESOPHAGUS 12/08/2011 DOMINIQUE GARCIA APRN R 530.85 CHEEK'S ESOPHAGUS 12/08/2011 YULY AMOR, JYOTSNA S 530.85 CHEEK'S ESOPHAGUS 12/08/2011 ENRIQUE [place] DOA K 530.85 CHEEK'S ESOPHAGUS 12/08/2011 YULY AMOR, JYOTSNA S 530.85 CHEEK'S ESOPHAGUS 12/08/2011 SHERON KEATING APRNIDI A 530.85 CHEEK'S ESOPHAGUS 12/08/2011 YULY AMOR, JYOTSNA S 530.85 CHEEK'S ESOPHAGUS 12/08/2011 ENRIQUE [place] DOA K 530.85 CHEEK'S ESOPHAGUS 12/08/2011 SHERON KEATING APRNIDI A 530.85 CHEEK'S ESOPHAGUS 12/08/2011 ENRIQUE [place] DOA K 530.85 CHEEK'S ESOPHAGUS 12/08/2011 TAN DDS, JOVANA 530.85 CHEEK'S ESOPHAGUS 12/08/2011 TAN PURNIMAS, JOVANA 530.85 CHEEK'S ESOPHAGUS 12/08/2011 TAN PURNIMAS, JOVANA 530.85 CHEEK'S ESOPHAGUS 12/08/2011 TJ EMERY APRNNDA S 530.85 CHEEK'S ESOPHAGUS 12/08/2011 RADHIKA GARCIA APRN 530.85 CHEEK'S ESOPHAGUS 12/08/2011 CLARIBEL KIM DDS 530.85 CHEEK'S ESOPHAGUS 12/08/2011 RADHIKA GARCIA APRN 530.85 CHEEK'S ESOPHAGUS 12/24/2011 Ot 327.23 OBSTRUCTIVE SLEEP APNEA (ADULT) (PEDIATR 12/24/2011 Ot 327.51 PERIODIC LIMB MOVEMENT DISORDER 01/24/2012 Ot 250.50 DIAB W OPHTHAL MANIFEST, TYPE II OR UNSP 01/24/2012 Ot 272.4 HYPERLIPIDEMIA NEC/NOS 01/24/2012 Ot 362.01 DIABETIC RETINOPATHY NOS 01/24/2012 Ot 412 OLD MYOCARDIAL INFARCT 01/24/2012 Ot 414.01 CORONARY ATHEROSCLEROSIS OF [place] CORON 01/24/2012 Ot 786.50 CHEST PAIN NOS 01/24/2012 Ot V45.82 PERCUTANEOUS TRANSLUM CORON ANGIOPLASTY 01/24/2012 Ot V58.63 LONG-TERM( CURRENT)USE OF ANTIPLATELET/AN 01/24/2012 Ot V58.66 LONG-TERM ( CURRENT) USE OF ASPIRIN 01/24/2012 Ot V58.69 OTH MED,LT, CURRENT USE 02/17/2012 Ot 327.23 OBSTRUCTIVE SLEEP APNEA (ADULT) (PEDIATR 02/17/2012 Ot 327.51 PERIODIC LIMB MOVEMENT DISORDER 05/23/2012 JYOTSNA EMERY APRN S 110.1 ONYCHOMYCOSIS 05/23/2012 JYOTSNA EMERY APRN S 724.5 BACKACHE UNSPECIFIED 05/23/2012 JYOTSNA EMERY APRN S 110.1 ONYCHOMYCOSIS 05/23/2012 RADHA EMERY APRNA S 724.5 BACKACHE UNSPECIFIED 05/23/2012 110.1 ONYCHOMYCOSIS 05/23/2012 724.5 BACKACHE UNSPECIFIED 05/23/2012 110.1 ONYCHOMYCOSIS 05/23/2012 724.5 BACKACHE UNSPECIFIED 05/23/2012 WHITE DDS, JEREMY J 110.1 ONYCHOMYCOSIS 05/23/2012 WHITE DDS, JEREMY J 724.5 BACKACHE UNSPECIFIED 05/23/2012 WHITE DDS, JEREMY J 110.1 ONYCHOMYCOSIS 05/23/2012 WHITE DDS, JEREMY J 724.5 BACKACHE UNSPECIFIED 05/23/2012 RICO DO, COSME K 110.1 ONYCHOMYCOSIS 05/23/2012 RICO DO, COSME K 724.5 BACKACHE UNSPECIFIED 05/23/2012 RADHA EMERY APRNA S 110.1 ONYCHOMYCOSIS 05/23/2012 RADHA EMERY APRNA S 724.5 BACKACHE UNSPECIFIED 05/23/2012 RADHA EMERY APRNA S 110.1 ONYCHOMYCOSIS 05/23/2012 YULY BOOKKEEPER RECEPTIONIST, JYOTSNA S 724.5 BACKACHE UNSPECIFIED 05/23/2012 YULY BOOKKEEPER RECEPTIONIST, JYOTSNA S 110.1 ONYCHOMYCOSIS 05/23/2012 YULY BOOKKEEPER RECEPTIONIST, JYOTSNA S 724.5 BACKACHE UNSPECIFIED 05/23/2012 GARCIA BOOKKEEPER RECEPTIONIST, DOMINIQUE R 110.1 ONYCHOMYCOSIS 05/23/2012 GARCIA BOOKKEEPER RECEPTIONIST, DOMINIQUE R 724.5 BACKACHE UNSPECIFIED 05/23/2012 YULY BOOKKEEPER RECEPTIONIST, JYOTSNA S 110.1 ONYCHOMYCOSIS 05/23/2012 YULY BOOKKEEPER RECEPTIONIST, JYOTSNA S 724.5 BACKACHE UNSPECIFIED 05/23/2012 RICO DO, COSME K 110.1 ONYCHOMYCOSIS 05/23/2012 RICO DO, COSME K 724.5 BACKACHE UNSPECIFIED 05/23/2012 YULY BOOKKEEPER RECEPTIONIST, JYOTSNA S 110.1 ONYCHOMYCOSIS 05/23/2012 YULY BOOKKEEPER RECEPTIONIST, JYOTSNA S 724.5 BACKACHE UNSPECIFIED 05/23/2012 RISHABH BOOKKEEPER RECEPTIONIST, YARELIS A 110.1 ONYCHOMYCOSIS 05/23/2012 RISHABH BOOKKEEPER RECEPTIONIST, YARELIS A 724.5 BACKACHE UNSPECIFIED 05/23/2012 YULY BOOKKEEPER RECEPTIONIST, JYOTSNA S 110.1 ONYCHOMYCOSIS 05/23/2012 YULY BOOKKEEPER RECEPTIONIST, JYOTSNA S 724.5 BACKACHE UNSPECIFIED 05/23/2012 RICO DO, COSME K 110.1 ONYCHOMYCOSIS 05/23/2012 RICO DO, COSME K 724.5 BACKACHE UNSPECIFIED 05/23/2012 RISHABH BOOKKEEPER RECEPTIONIST, YARELIS A 110.1 ONYCHOMYCOSIS 05/23/2012 RISHABH BOOKKEEPER RECEPTIONIST, YARELIS A 724.5 BACKACHE UNSPECIFIED 05/23/2012 RICO DO, COSME K 110.1 ONYCHOMYCOSIS 05/23/2012 R[place] DO, COSME K 724.5 BACKACHE UNSPECIFIED 05/23/2012 TAN DDS, JOVANA 110.1 ONYCHOMYCOSIS 05/23/2012 TAN DDS, JOVANA 724.5 BACKACHE UNSPECIFIED 05/23/2012 TAN DDS, JOVANA 110.1 ONYCHOMYCOSIS 05/23/2012 TAN DDS, JOVANA 724.5 BACKACHE UNSPECIFIED 05/23/2012 TAN DDS, JOVANA 110.1 ONYCHOMYCOSIS 05/23/2012 TAN DDS, JOVANA 724.5 BACKACHE UNSPECIFIED 05/23/2012 YULY BOOKKEEPER RECEPTIONIST, JYOTSNA S 110.1 ONYCHOMYCOSIS 05/23/2012 YULY BOOKKEEPER RECEPTIONIST, JYOTSNA S 724.5 BACKACHE UNSPECIFIED 05/23/2012 GARCIA BOOKKEEPER RECEPTIONIST, RADHIKA D 110.1 ONYCHOMYCOSIS 05/23/2012 GARCIA BOOKKEEPER RECEPTIONIST, RADHIKA D 724.5 BACKACHE UNSPECIFIED 05/23/2012 JUDY DDS, CLARIBEL D 110.1 ONYCHOMYCOSIS 05/23/2012 JUDY DDS, CLARIBEL D 724.5 BACKACHE UNSPECIFIED 05/23/2012 JOSE BOOKKEEPER RECEPTIONIST, RADHIKA D 110.1 ONYCHOMYCOSIS 05/23/2012 JOSE BOOKKEEPER RECEPTIONIST, RADHIKA D 724.5 BACKACHE UNSPECIFIED 09/15/2012 DAMARIS LUTHER FACC, JED FACP CCDS Ot 250.00 DIAB RANDALL WO COMPL, TYPE II OR UNSPEC TY 09/15/2012 JED OCAMPO MD, FACC FACP CCDS Ot 272.4 HYPERLIPIDEMIA NEC/NOS 09/15/2012 JED OCAMPO MD, FACC FACP CCDS Ot 414.01 CORONARY ATHEROSCLEROSIS OF [place] CORON 09/15/2012 JED OCAMPO MD, FACC FACP CCDS Ot 414.4 CORONARY ATHEROSCLEROSIS DUE TO [place] 09/15/2012 JED OCAMPO MD, FACC FACP CCDS Ot 780.57 UNSPECIFIED SLEEP APNEA 09/15/2012 JED OCAMPO MD, FACC FACP CCDS Ot 780.79 OTH MALAISE FATIGUE 09/15/2012 JED OCAMPO MD, FACCP CCDS Ot 794.30 ABN CARDIOVASC STUDY NOS 09/15/2012 JED OCAMPO MD, FACCP CCDS Ot V15.81 HX OF PAST NONCOMPLIANCE 09/15/2012 JED OCAMPO MD, FACC FACP CCDS Ot V45.82 PERCUTANEOUS TRANSLUM CORON ANGIOPLASTY 09/15/2012 JED OCAMPO MD, FACCP CCDS Ot V58.63 LONG-TERM(CURRENT)USE OF ANTIPLATELET/AN 09/15/2012 JED OCAMPO MD, FACC FACP CCDS Ot V58.66 LONG-TERM (CURRENT) USE OF ASPIRIN 09/15/2012 DAMARIS LUTHER FACC, JED ODONNELL CCDS Ot V58.69 OT MED,LT,CURRENT USE 01/22/2013 RICO DO, COSME K 530.81 GERD 01/22/2013 R[place] DO, COSME K 703.0 INGROWING NAIL 01/22/2013 [place] DO, COSME K V03.82 PPV23 (PNEUMOVAX) DX 01/22/2013 YULY BOOKKEEPER RECEPTIONIST, JYOTSNA S 530.81 GERD 01/22/2013 YULY BOOKKEEPER RECEPTIONIST, JYOTSNA S 703.0 INGROWING NAIL 01/22/2013 YULY BOOKKEEPER RECEPTIONIST, JYOTSNA S V03.82 PPV23 (PNEUMOVAX) DX 01/22/2013 YULY BOOKKEEPER RECEPTIONIST, JYOTSNA S 530.81 GERD 01/22/2013 YULY BOOKKEEPER RECEPTIONIST, JYOTSNA S 703.0 INGROWING NAIL 01/22/2013 YULY BOOKKEEPER RECEPTIONIST, JYOTSNA S V03.82 PPV23 (PNEUMOVAX) DX 01/22/2013 YULY BOOKKEEPER RECEPTIONIST, JYOTSNA S 530.81 GERD 01/22/2013 YULY BOOKKEEPER RECEPTIONIST, JYOTSNA S 703.0 INGROWING NAIL 01/22/2013 YULY BOOKKEEPER RECEPTIONIST, JYOTSNA S V03.82 PPV23 (PNEUMOVAX) DX 01/22/2013 GARCIA BOOKKEEPER RECEPTIONIST, DOMINIQUE R 530.81 GERD 01/22/2013 GARCIA BOOKKEEPER RECEPTIONIST, DOMINIQUE R 703.0 INGROWING NAIL 01/22/2013 GARCIA BOOKKEEPER RECEPTIONIST, DOMINIQUE R V03.82 PPV23 (PNEUMOVAX) DX 01/22/2013 YULY BOOKKEEPER RECEPTIONIST, JYOTSNA S 530.81 GERD 01/22/2013 YULY BOOKKEEPER RECEPTIONIST, JYOTSNA S 703.0 INGROWING NAIL 01/22/2013 YULY BOOKKEEPER RECEPTIONIST, JYOTSNA S V03.82 PPV23 (PNEUMOVAX) DX 01/22/2013 RICO DO, COSME K 530.81 GERD 01/22/2013 RICO DO, COSME K 703.0 INGROWING NAIL 01/22/2013 RICO DO, COSME K V03.82 PPV23 (PNEUMOVAX) DX 01/22/2013 YULY BOOKKEEPER RECEPTIONIST, JYOTSNA S 530.81 GERD 01/22/2013 YULY BOOKKEEPER RECEPTIONIST, JYOTSNA S 703.0 INGROWING NAIL 01/22/2013 YULY BOOKKEEPER RECEPTIONIST, JYOTSNA S V03.82 PPV23 (PNEUMOVAX) DX 01/22/2013 RISHABH BOOKKEEPER RECEPTIONIST, YARELIS A 530.81 GERD 01/22/2013 RISHABH BOOKKEEPER RECEPTIONIST, YARELIS A 703.0 INGROWING NAIL 01/22/2013 RISHABH BOOKKEEPER RECEPTIONIST, YARELIS A V03.82 PPV23 (PNEUMOVAX) DX 01/22/2013 YULY BOOKKEEPER RECEPTIONIST, JYOTSNA S 530.81 GERD 01/22/2013 YLUY BOOKKEEPER RECEPTIONIST, JYOTSNA S 703.0 INGROWING NAIL 01/22/2013 YULY BOOKKEEPER RECEPTIONIST, JYOTSNA S V03.82 PPV23 (PNEUMOVAX) DX 01/22/2013 RICO DO, COSME K 530.81 GERD 01/22/2013 RICO DO, COSME K 703.0 INGROWING NAIL 01/22/2013 RICO DO, COSME K V03.82 PPV23 (PNEUMOVAX) DX 01/22/2013 RISHABH BOOKKEEPER RECEPTIONIST, YARELIS A 530.81 GERD 01/22/2013 RISHABH BOOKKEEPER RECEPTIONIST, YARELIS A 703.0 INGROWING NAIL 01/22/2013 RISHABH BOOKKEEPER RECEPTIONIST, YARELIS A V03.82 PPV23 (PNEUMOVAX) DX 01/22/2013 RICO DO, COSME K 530.81 GERD 01/22/2013 RICO DO, COSME K 703.0 INGROWING NAIL 01/22/2013 R[place] DO, COSME K V03.82 PPV23 (PNEUMOVAX) DX 01/22/2013 TAN DDS, JOVANA 530.81 GERD 01/22/2013 TAN DDS, JOVANA 703.0 INGROWING NAIL 01/22/2013 TAN DDS, JOVANA V03.82 PPV23 (PNEUMOVAX) DX 01/22/2013 TAN DDS, JOVANA 530.81 GERD 01/22/2013 TAN DDS, JOVANA 703.0 INGROWING NAIL 01/22/2013 TAN DDS, JOVANA V03.82 PPV23 (PNEUMOVAX) DX 01/22/2013 TAN DDS, JOVANA 530.81 GERD 01/22/2013 TAN DDS, JOVANA 703.0 INGROWING NAIL 01/22/2013 TAN DDS, JOVANA V03.82 PPV23 (PNEUMOVAX) DX 01/22/2013 YULY AMOR JYOTSNA S 530.81 GERD 01/22/2013 YULY BOOKKEEPER RECEPTIONIST, JYOTSNA S 703.0 INGROWING NAIL 01/22/2013 YULY BOOKKEEPER RECEPTIONIST, JYOTSNA S V03.82 PPV23 (PNEUMOVAX) DX 01/22/2013 RADHIKA GARICA APRN 530.81 GERD 01/22/2013 RADHIKA GARCIA APRN 703.0 INGROWING NAIL 01/22/2013 RADHIKA GARCIA APRN V03.82 PPV23 (PNEUMOVAX) DX 01/22/2013 JUDY DDS, CLARIBEL Jarrett 530.81 GERD 01/22/2013 JUDY DDS, CLARIBEL Jarrett 703.0 INGROWING NAIL 01/22/2013 JUDY DDS, CLARIBEL Jarrett V03.82 PPV23 (PNEUMOVAX) DX 01/22/2013 RADHIKA GARCIA APRN 530.81 GERD 01/22/2013 RADHIKA GARCIA APRN 703.0 INGROWING NAIL 01/22/2013 RADHIKA GARCIA APRN V03.82 PPV23 (PNEUMOVAX) DX 04/19/2013 FABY PULIDO MD Ot 465.9 ACUTE URI NOS 04/19/2013 FABY PULIDO MD Ot 786.2 COUGH 04/25/2013 YULY AMOR, JYOTSNA S 465.9 UPPER RESPIRATORY INFECTION 04/25/2013 YULY AMOR JYOTSNA S 465.9 UPPER RESPIRATORY INFECTION 04/25/2013 YULY AMOR, JYOTSNA S 465.9 UPPER RESPIRATORY INFECTION 04/25/2013 DOMINIQUE GARCIA APRN 465.9 UPPER RESPIRATORY INFECTION 04/25/2013 YULY AMOR, JYOTSNA S 465.9 UPPER RESPIRATORY INFECTION 04/25/2013 COSME [place] DO 465.9 UPPER RESPIRATORY INFECTION 04/25/2013 YULY BOOKKEEPER RECEPTIONIST, JYOTSNA S 465.9 UPPER RESPIRATORY INFECTION 04/25/2013 RISHABH BOOKKEEPER RECEPTIONIST, YARELIS A 465.9 UPPER RESPIRATORY INFECTION 04/25/2013 YULY BOOKKEEPER RECEPTIONIST, JYOTSNA S 465.9 UPPER RESPIRATORY INFECTION 04/25/2013 R[place] DO, COSME K 465.9 UPPER RESPIRATORY INFECTION 04/25/2013 RISHABH BOOKKEEPER RECEPTIONIST, YARELIS A 465.9 UPPER RESPIRATORY INFECTION 04/25/2013 R[place] DO, COSME K 465.9 UPPER RESPIRATORY INFECTION 04/25/2013 TAN DDS, JOVANA 465.9 UPPER RESPIRATORY INFECTION 04/25/2013 TAN DDS, JOVANA 465.9 UPPER RESPIRATORY INFECTION 04/25/2013 TAN DDS, JOVANA 465.9 UPPER RESPIRATORY INFECTION 04/25/2013 YULY BOOKKEEPER RECEPTIONIST, JYOTSNA S 465.9 UPPER RESPIRATORY INFECTION 04/25/2013 RADHIKA GARCIA APRN D 465.9 UPPER RESPIRATORY INFECTION 04/25/2013 JUDY DDS, CLARIBEL D 465.9 UPPER RESPIRATORY INFECTION 04/25/2013 JOSE BOOKKEEPER RECEPTIONISTRADHIKA D 465.9 UPPER RESPIRATORY INFECTION 05/23/2013 YULY FELDMANN, JYOTSNA S 414.00 CAD 05/23/2013 YULY FELDMANN, JYOTSNA S 564.1 IRRITABLE BOWEL SYNDROME 05/23/2013 YULY BOOKKEEPER RECEPTIONIST, JYOTSNA S 414.00 CAD 05/23/2013 YULY BOOKKEEPER RECEPTIONIST, JYOTSNA S 564.1 IRRITABLE BOWEL SYNDROME 05/23/2013 RADHA FELDMANN DOMINIQUE R 414.00 CAD 05/23/2013 RADHA BOOKKEEPER RECEPTIONIST, DOMINIQUE R 564.1 IRRITABLE BOWEL SYNDROME 05/23/2013 YULY BOOKKEEPER RECEPTIONIST, JYOTSNA S 414.00 CAD 05/23/2013 YULY BOOKKEEPER RECEPTIONIST, JYOTSNA S 564.1 IRRITABLE BOWEL SYNDROME 05/23/2013 RICO DO COSME K 414.00 CAD 05/23/2013 RICO DO, COSME K 564.1 IRRITABLE BOWEL SYNDROME 05/23/2013 YULY BOOKKEEPER RECEPTIONIST, JYOTSNA S 414.00 CAD 05/23/2013 YULY FELDMANN, JYOTSNA S 564.1 IRRITABLE BOWEL SYNDROME 05/23/2013 RISHABH BOOKKEEPER RECEPTIONIST, YARELIS A 414.00 CAD 05/23/2013 RISHABH BOOKKEEPER RECEPTIONIST, YARELIS A 564.1 IRRITABLE BOWEL SYNDROME 05/23/2013 YULY AMOR, JYOTSNA S 414.00 CAD 05/23/2013 YULY AMOR, JYOTSNA S 564.1 IRRITABLE BOWEL SYNDROME 05/23/2013 RICO DO, COSME K 414.00 CAD 05/23/2013 RICO DO, COSME K 564.1 IRRITABLE BOWEL SYNDROME 05/23/2013 RISHABH BOOKKEEPER RECEPTIONIST, YARELIS A 414.00 CAD 05/23/2013 RISHABH BOOKKEEPER RECEPTIONIST, YARELIS A 564.1 IRRITABLE BOWEL SYNDROME 05/23/2013 RICO DO, COSME K 414.00 CAD 05/23/2013 R[place] DO, COSME K 564.1 IRRITABLE BOWEL SYNDROME 05/23/2013 TAN DDS, JOVANA 414.00 CAD 05/23/2013 TAN DDS, JOVANA 564.1 IRRITABLE BOWEL SYNDROME 05/23/2013 TAN DDS, JOVANA 414.00 CAD 05/23/2013 TAN DDS, JOVANA 564.1 IRRITABLE BOWEL SYNDROME 05/23/2013 TAN DDS, JOVANA 414.00 CAD 05/23/2013 TAN DDS, JOVANA 564.1 IRRITABLE BOWEL SYNDROME 05/23/2013 RADHA EMERY APRNA S 414.00 CAD 05/23/2013 RADHA EMERY APRNA S 564.1 IRRITABLE BOWEL SYNDROME 05/23/2013 RADHIKA GARCIA APRN 414.00 CAD 05/23/2013 RADHIKA GARCIA APRN 564.1 IRRITABLE BOWEL SYNDROME 05/23/2013 JUDY DDS, CLARIBEL D 414.00 CAD 05/23/2013 JUDY DDS, CLARIBEL Jarrett 564.1 IRRITABLE BOWEL SYNDROME 05/23/2013 RADHIKA GARCIA APRN 414.00 CAD 05/23/2013 RADHIKA GARCIA APRN 564.1 IRRITABLE BOWEL SYNDROME 06/01/2013 DOMINIQUE GARCIA APRN R 466.0 BRONCHITIS, ACUTE 06/01/2013 JYOTSNA EMERY APRN S 466.0 BRONCHITIS, ACUTE 06/01/2013 RICO DO, COSME K 466.0 BRONCHITIS, ACUTE 06/01/2013 YULY BOOKKEEPER RECEPTIONIST, JYOTSNA S 466.0 BRONCHITIS, ACUTE 06/01/2013 RISHABH BOOKKEEPER RECEPTIONIST, YARELIS A 466.0 BRONCHITIS, ACUTE 06/01/2013 YULY BOOKKEEPER RECEPTIONIST, JYOTSNA S 466.0 BRONCHITIS, ACUTE 06/01/2013 RICO DO, COSME K 466.0 BRONCHITIS, ACUTE 06/01/2013 RISHABH BOOKKEEPER RECEPTIONIST, YARELIS A 466.0 BRONCHITIS, ACUTE 06/01/2013 RICO DO, COSME K 466.0 BRONCHITIS, ACUTE 06/01/2013 TAN DDS, JOVANA 466.0 BRONCHITIS, ACUTE 06/01/2013 TAN DDS, JOVANA 466.0 BRONCHITIS, ACUTE 06/01/2013 TAN DDS, JOVANA 466.0 BRONCHITIS, ACUTE 06/01/2013 YULY BOOKKEEPER RECEPTIONIST, JYOTSNA S 466.0 BRONCHITIS, ACUTE 06/01/2013 RADHIKA GARCIA APRN 466.0 BRONCHITIS, ACUTE 06/01/2013 JUDY DDS, CLARIBEL D 466.0 BRONCHITIS, ACUTE 06/01/2013 RADHIKA GARCIA APRN 466.0 BRONCHITIS, ACUTE 06/07/2013 YULY BOOKKEEPER RECEPTIONIST, JYOTSNA S 786.2 COUGH 06/07/2013 RICO DO, COSME K 786.2 COUGH 06/07/2013 YULY BOOKKEEPER RECEPTIONIST, JYOTSNA S 786.2 COUGH 06/07/2013 RISHABH BOOKKEEPER RECEPTIONIST, YARELIS A 786.2 COUGH 06/07/2013 YULY BOOKKEEPER RECEPTIONIST, JYOTSNA S 786.2 COUGH 06/07/2013 RICO DO, COSME K 786.2 COUGH 06/07/2013 RISHABH BOOKKEEPER RECEPTIONIST, YARELIS A 786.2 COUGH 06/07/2013 RICO DO, COSME K 786.2 COUGH 06/07/2013 TAN DDS, JOVANA 786.2 COUGH 06/07/2013 TAN DDS, JOVANA 786.2 COUGH 06/07/2013 TAN DDS, JOVANA 786.2 COUGH 06/07/2013 YULY BOOKKEEPER RECEPTIONIST, JYOTSNA S 786.2 COUGH 06/07/2013 RADHIKA GARCIA APRN 786.2 COUGH 06/07/2013 JUDY DDS, CLARIBEL D 786.2 COUGH 06/07/2013 GARCIA BOOKKEEPER RECEPTIONIST, RADHIKA D 786.2 COUGH 07/20/2013 RICO DO, COSME K 272.4 HYPERLIPIDEMIA 07/20/2013 RICO DO, COSME K 401.9 HYPERTENSION, UNSPECIFIED ESSENTIAL 07/20/2013 RICO DO, COSME K 785.9 CAROTID BRUIT 07/20/2013 YULY BOOKKEEPER RECEPTIONIST, JYOTSNA S 272.4 HYPERLIPIDEMIA 07/20/2013 YULY BOOKKEEPER RECEPTIONIST, JYOTSNA S 401.9 HYPERTENSION, UNSPECIFIED ESSENTIAL 07/20/2013 YULY BOOKKEEPER RECEPTIONIST, JYOTSNA S 785.9 CAROTID BRUIT 07/20/2013 RISHABH BOOKKEEPER RECEPTIONIST, YARELIS A 272.4 HYPERLIPIDEMIA 07/20/2013 RISHABH BOOKKEEPER RECEPTIONIST, YARELIS A 401.9 HYPERTENSION, UNSPECIFIED ESSENTIAL 07/20/2013 RISHABH BOOKKEEPER RECEPTIONIST, YARELIS A 785.9 CAROTID BRUIT 07/20/2013 YULY BOOKKEEPER RECEPTIONIST, JYOTSNA S 272.4 HYPERLIPIDEMIA 07/20/2013 YULY BOOKKEEPER RECEPTIONIST, JYOTSNA S 401.9 HYPERTENSION, UNSPECIFIED ESSENTIAL 07/20/2013 YULY BOOKKEEPER RECEPTIONIST, JYOTSNA S 785.9 CAROTID BRUIT 07/20/2013 RICO DO, COSME K 272.4 HYPERLIPIDEMIA 07/20/2013 RICO DO, COSME K 401.9 HYPERTENSION, UNSPECIFIED ESSENTIAL 07/20/2013 RICO DO, COSME K 785.9 CAROTID BRUIT 07/20/2013 RISHABH BOOKKEEPER RECEPTIONIST, YARELIS A 272.4 HYPERLIPIDEMIA 07/20/2013 RISHABH BOOKKEEPER RECEPTIONIST, YARELIS A 401.9 HYPERTENSION, UNSPECIFIED ESSENTIAL 07/20/2013 RISHABH BOOKKEEPER RECEPTIONIST, YARELIS A 785.9 CAROTID BRUIT 07/20/2013 RICO DO, COSME K 272.4 HYPERLIPIDEMIA 07/20/2013 RICO DO, COSME K 401.9 HYPERTENSION, UNSPECIFIED ESSENTIAL 07/20/2013 RICO DO, COSME K 785.9 CAROTID BRUIT 07/20/2013 TAN DDS, JOVANA 272.4 HYPERLIPIDEMIA 07/20/2013 TAN DDS, JOVANA 401.9 HYPERTENSION, UNSPECIFIED ESSENTIAL 07/20/2013 TAN DDS, JOVANA 785.9 CAROTID BRUIT 07/20/2013 TAN DDS, JOVANA 272.4 HYPERLIPIDEMIA 07/20/2013 TAN DDS, JOVANA 401.9 HYPERTENSION, UNSPECIFIED ESSENTIAL 07/20/2013 TAN DDS, JOVANA 785.9 CAROTID BRUIT 07/20/2013 TAN DDS, JOVANA 272.4 HYPERLIPIDEMIA 07/20/2013 TAN DDS, JOVANA 401.9 HYPERTENSION, UNSPECIFIED ESSENTIAL 07/20/2013 TAN DDS, JOVANA 785.9 CAROTID BRUIT 07/20/2013 JYOTSNA EMERY APRN S 272.4 HYPERLIPIDEMIA 07/20/2013 JYOTSNA EMERY APRN S 401.9 HYPERTENSION, UNSPECIFIED ESSENTIAL 07/20/2013 JYOTSNA EMERY APRN S 785.9 CAROTID BRUIT 07/20/2013 RADHIKA GARCIA APRN D 272.4 HYPERLIPIDEMIA 07/20/2013 RADHIKA GARCIA APRN D 401.9 HYPERTENSION, UNSPECIFIED ESSENTIAL 07/20/2013 REJI GARCIA APRNON D 785.9 CAROTID BRUIT 07/20/2013 JUDY DDS, CLARIBEL D 272.4 HYPERLIPIDEMIA 07/20/2013 JUDY DDS, CLARIBEL D 401.9 HYPERTENSION, UNSPECIFIED ESSENTIAL 07/20/2013 JUDY DDS, CLARIBEL D 785.9 CAROTID BRUIT 07/20/2013 REJI GARCIA APRNON D 272.4 HYPERLIPIDEMIA 07/20/2013 REJI GARCIA APRNON D 401.9 HYPERTENSION, UNSPECIFIED ESSENTIAL 07/20/2013 REJI GARCIA APRNON D 785.9 CAROTID BRUIT 09/26/2013 YARELIS KEATING APRN V16.0 FAMILY HX COLON CANCER 09/26/2013 YARELIS KEATING APRN V72.31 CONTINUOUS PROCESS MACHINE OPERATOR EXAM, ROUTINE 09/26/2013 YARELIS KEATING APRN V76.10 BREAST CANCER SCREENING 09/26/2013 YARELIS KEATING APRN V76.51 COLON CANCER SCREENING 09/26/2013 YARELIS KEATING APRN V82.81 SPECIAL SCREENING FOR OSTEOPOROSIS 09/26/2013 JYOTSNA EMERY APRN S V16.0 FAMILY HX COLON CANCER 09/26/2013 YULY BOOKKEEPER RECEPTIONIST, JYOTSNA S V72.31 CONTINUOUS PROCESS MACHINE OPERATOR EXAM, ROUTINE 09/26/2013 YULY TJ AMORNDA S V76.10 BREAST CANCER SCREENING 09/26/2013 YULY TJ AMORNDA S V76.51 COLON CANCER SCREENING 09/26/2013 YULY TJ AMORNDA S V82.81 SPECIAL SCREENING FOR OSTEOPOROSIS 09/26/2013 ENRIQUE [place] DOA K V16.0 FAMILY HX COLON CANCER 09/26/2013 ENRIQUE [place] DOA K V72.31 CONTINUOUS PROCESS MACHINE OPERATOR EXAM, ROUTINE 09/26/2013 NERIQUE [place] DOA K V76.10 BREAST CANCER SCREENING 09/26/2013 [place] ENRIQUE SPENCERA K V76.51 COLON CANCER SCREENING 09/26/2013 [place] ENRIQUE SPENCERA K V82.81 SPECIAL SCREENING FOR OSTEOPOROSIS 09/26/2013 RISHABHYARELIS Gomez APRN A V16.0 FAMILY HX COLON CANCER 09/26/2013 RISHABHYARELIS BAUTISTA APRN A V72.31 CONTINUOUS PROCESS MACHINE OPERATOR EXAM, ROUTINE 09/26/2013 RISHABHYARELIS BAUTISTA APRN A V76.10 BREAST CANCER SCREENING 09/26/2013 RISHABHYARELIS Gomez APRN A V76.51 COLON CANCER SCREENING 09/26/2013 RISHABHYARELIS Gomez APRN A V82.81 SPECIAL SCREENING FOR OSTEOPOROSIS 09/26/2013 ENRIQUE [place] DOA K V16.0 FAMILY HX COLON CANCER 09/26/2013 ENRIQUE [place] DOA K V72.31 CONTINUOUS PROCESS MACHINE OPERATOR EXAM, ROUTINE 09/26/2013 ENRIQUE [place] DOA K V76.10 BREAST CANCER SCREENING 09/26/2013 ENRIQUE [place] DOA K V76.51 COLON CANCER SCREENING 09/26/2013 [place] ENRIQUE SPENCERA K V82.81 SPECIAL SCREENING FOR OSTEOPOROSIS 09/26/2013 TAN DDSJOVANA V16.0 FAMILY HX COLON CANCER 09/26/2013 TAN DDSJOVANA V72.31 CONTINUOUS PROCESS MACHINE OPERATOR EXAM, ROUTINE 09/26/2013 TAN DDSJOVANA V76.10 BREAST CANCER SCREENING 09/26/2013 TAN DDS, JOVANA V76.51 COLON CANCER SCREENING 09/26/2013 TAN DDS, JOVANA V82.81 SPECIAL SCREENING FOR OSTEOPOROSIS 09/26/2013 TAN DDS, JOVANA V16.0 FAMILY HX COLON CANCER 09/26/2013 ATN DDS, JOVANA V72.31 CONTINUOUS PROCESS MACHINE OPERATOR EXAM, ROUTINE 09/26/2013 TAN DDS, JOVANA V76.10 BREAST CANCER SCREENING 09/26/2013 TAN DDS, JOVANA V76.51 COLON CANCER SCREENING 09/26/2013 TAN DDS, JOVANA V82.81 SPECIAL SCREENING FOR OSTEOPOROSIS 09/26/2013 TAN DDS, JOVANA V16.0 FAMILY HX COLON CANCER 09/26/2013 TAN DDS, JOVANA V72.31 CONTINUOUS PROCESS MACHINE OPERATOR EXAM, ROUTINE 09/26/2013 TAN DDS, JOVANA V76.10 BREAST CANCER SCREENING 09/26/2013 TAN DDS, JOVANA V76.51 COLON CANCER SCREENING 09/26/2013 TAN DDS, JOVANA V82.81 SPECIAL SCREENING FOR OSTEOPOROSIS 09/26/2013 RADHA EMERY APRNA S V16.0 FAMILY HX COLON CANCER 09/26/2013 RADHA EMERY APRNA S V72.31 CONTINUOUS PROCESS MACHINE OPERATOR EXAM, ROUTINE 09/26/2013 TJ EMERY APRNNDA S V76.10 BREAST CANCER SCREENING 09/26/2013 TJ EMERY APRNNDA S V76.51 COLON CANCER SCREENING 09/26/2013 RADHA EMERY APRNA S V82.81 SPECIAL SCREENING FOR OSTEOPOROSIS 09/26/2013 RADHIKA GARCIA APRN V16.0 FAMILY HX COLON CANCER 09/26/2013 RADHIKA GARCIA APRN V72.31 CONTINUOUS PROCESS MACHINE OPERATOR EXAM, ROUTINE 09/26/2013 RADHIKA GARCIA APRN V76.10 BREAST CANCER SCREENING 09/26/2013 RADHIKA GARCIA APRN V76.51 COLON CANCER SCREENING 09/26/2013 RADHIKA GARCIA APRN V82.81 SPECIAL SCREENING FOR OSTEOPOROSIS 09/26/2013 JUDY DDCLARIBEL Sinclair V16.0 FAMILY HX COLON CANCER 09/26/2013 JUDY DDS, CLARIBEL Jarrett V72.31 CONTINUOUS PROCESS MACHINE OPERATOR EXAM, ROUTINE 09/26/2013 JUDY FELTONSCLARIBEL V76.10 BREAST CANCER SCREENING 09/26/2013 JUDY DDS, CLARIBEL Jarrett V76.51 COLON CANCER SCREENING 09/26/2013 CLARIBEL KIM DDS V82.81 SPECIAL SCREENING FOR OSTEOPOROSIS 09/26/2013 RADHIKA GARCIA APRN V16.0 FAMILY HX COLON CANCER 09/26/2013 RADHIKA GARCIA APRN V72.31 CONTINUOUS PROCESS MACHINE OPERATOR EXAM, ROUTINE 09/26/2013 RADHIKA GARCIA APRN V76.10 BREAST CANCER SCREENING 09/26/2013 RADHIKA GARCIA APRN V76.51 COLON CANCER SCREENING 09/26/2013 RADHIKA GARCIA APRN V82.81 SPECIAL SCREENING FOR OSTEOPOROSIS 10/11/2013 KACIE HARRINGTON MD Ot 250.00 DIAB RANDALL WO COMPL, TYPE II OR UNSPEC TY 10/11/2013 KACIE HARRINGTON MD Ot 414.01 CORONARY ATHEROSCLEROSIS OF [place] CORON 10/11/2013 KACIE HARRINGTON MD Ot 786.50 CHEST PAIN NOS 10/11/2013 KACIE HARRINGTON MD Ot V45.82 PERCUTANEOUS TRANSLUM CORON ANGIOPLASTY 10/11/2013 KACIE HARRINGTON MD Ot V58.67 LONG-TERM (CURRENT) USE OF INSULIN 10/11/2013 KACIE HARRINGTON MD Ot V58.69 OT MED,LT,CURRENT USE 12/13/2013 COSME RICO DO 564.1 IRRITABLE BOWEL SYNDROME 12/13/2013 COSME RICO DO 787.91 DIARRHEA 12/13/2013 TAN DDS, JOVANA 564.1 IRRITABLE BOWEL SYNDROME 12/13/2013 TAN PURNIMAS, JOVANA 787.91 DIARRHEA 12/13/2013 TAN DDS, JOVANA 564.1 IRRITABLE BOWEL SYNDROME 12/13/2013 TAN DDS, JOVANA 787.91 DIARRHEA 12/13/2013 TAN DDS, JOVANA 564.1 IRRITABLE BOWEL SYNDROME 12/13/2013 TAN DDS, JOVANA 787.91 DIARRHEA 12/13/2013 JYOTSNA EMERY APRN 564.1 IRRITABLE BOWEL SYNDROME 12/13/2013 JYOTSNA EMERY APRN S 787.91 DIARRHEA 12/13/2013 RADHIKA GARCIA APRN 564.1 IRRITABLE BOWEL SYNDROME 12/13/2013 RADHIKA GARCIA APRN 787.91 DIARRHEA 12/13/2013 CLARIBEL KIM DDS 564.1 IRRITABLE BOWEL SYNDROME 12/13/2013 CLARIBEL KIM DDS 787.91 DIARRHEA 12/13/2013 RADHIKA GARCIA APRN 564.1 IRRITABLE BOWEL SYNDROME 12/13/2013 RADHIKA GARCIA APRN 787.91 DIARRHEA 02/05/2014 JYOTSNA EMERY APRN 719.45 PAIN- HIP 02/05/2014 RADHIKA GARCIA APRN 719.45 PAIN- HIP 02/05/2014 CLARIBEL KIM DDS 719.45 PAIN- HIP 02/05/2014 RADHIKA GARCIA APRN 719.45 PAIN- HIP 03/19/2014 RADHIKA GARCIA APRN 053.9 HERPES ZOSTER WITHOUT COMPLICATION 03/19/2014 CLARIBEL KIM DDS 053.9 HERPES ZOSTER WITHOUT COMPLICATION 03/19/2014 RADHIKA GARCIA APRN 053.9 HERPES ZOSTER WITHOUT COMPLICATION 03/21/2014 RADHIKA GARCIA APRN 715.15 OSTEOARTHROSIS LOCALIZED PRIMARY INVOLVING PELVIC REGION AND THIGH 03/21/2014 CLARIBEL KIM DDS 715.15 OSTEOARTHROSIS LOCALIZED PRIMARY INVOLVING PELVIC REGION AND THIGH 03/21/2014 RADHIKA GARCIA APRN 715.15 OSTEOARTHROSIS LOCALIZED PRIMARY INVOLVING PELVIC REGION AND THIGH 09/22/2014 KATHY LAST DO Ot 558.9 NONINF GASTROENTERIT NEC 09/22/2014 KATHY LAST DO Ot 787.01 NAUSEA WITH VOMITING 09/22/2014 Ot 414.00 09/22/2014 Ot 786.50 09/22/2014 Ot 414.01 09/22/2014 Ot 427.9 09/22/2014 Ot 786.50 09/22/2014 Ot 593.9 09/22/2014 Ot 414.01 09/22/2014 Ot V58.69 09/22/2014 Ot V72.84 09/22/[address] DAR[address] TRAYLOR RAILROAD SUPERVISOR OF ENGINES Ot 786.05 09/22/[address] RAILROAD SUPERVISOR OF ENGINES Ot 786.05 09/22/2014 DAMARIS LUTHER FACGino, JED FACP CCDS Ot 414.00 09/22/2014 DAMARIS LUTHER FACC, JED FACP CCDS Ot 786.50 09/22/2014 DAMARIS LUTHER FACC, JED FACP CCDS Ot 272.4 09/22/2014 DAMARIS LUTHER FAC, ALI FACP CCDS Ot 414.00 09/22/2014 DAMARIS LUTHER FAC, JED FACP CCDS Ot V58.69 09/22/2014 DMITRY PA, AQUILINO K Ot 250.00 09/22/2014 NIEVES-ROBB PA, AQUILINO K Ot 401.9 09/22/2014 NIEVES-ROBB PA, AQUILINO K Ot 414.00 09/22/2014 NIEVES-ROBB PA, AQUILINO K Ot 250.00 09/22/2014 NIEVES-ROBB PA, AQUILINO K Ot 272.4 09/22/2014 NIEVES-ROBB PA, AQUILINO K Ot 401.9 09/22/2014 NIEVES-ROBB PA, AQUILINO K Ot 414.00 09/22/2014 NIEVES-ROBB PA, AQUILINO K Ot 785.9 09/22/2014 YARELIS KEATING BOOKKEEPER RECEPTIONIST Ot V16.0 09/22/2014 YARELIS KEATING BOOKKEEPER RECEPTIONIST Ot V72.31 09/22/2014 SHERON KEATINGIDI Laila BOOKKEEPER RECEPTIONIST Ot V76.12 09/22/2014 YARELIS KEATING BOOKKEEPER RECEPTIONIST Ot V76.51 09/22/2014 YARELIS KEATING BOOKKEEPER RECEPTIONIST Ot V82.81 11/05/2014 Ot 414.00 11/05/2014 Ot 786.50 11/05/2014 Ot 414.01 11/05/2014 Ot 427.9 11/05/2014 Ot 786.50 11/05/2014 Ot 593.9 11/05/2014 Ot 414.01 11/05/2014 Ot V58.69 11/05/2014 Ot V72.84 11/05/2014 DARLINE TRAYLOR RAILROAD SUPERVISOR OF ENGINES Ot 786.05 11/05/[address] DARLINE TRAYLOR RAILROAD SUPERVISOR OF ENGINES Ot 786.05 11/05/2014 DAMARIS LUTHER FACC, JED FACP CCDS Ot 414.00 11/05/2014 DAMARIS LUTHER FACC, ALI FACP CCDS Ot 786.50 11/05/2014 DAMARIS LUTHER FACC, JED FACP CCDS Ot 272.4 11/05/2014 DAMARIS LUTHER FAC, ALI FACP CCDS Ot 414.00 11/05/2014 DAMARIS LUTHER FACC, ALI FACP CCDS Ot V58.69 11/05/2014 DMITRY PA, AQUILINO K Ot 250.00 11/05/2014 DMITRY PA, AQUILINO K Ot 401.9 11/05/2014 DMITRY PA, AQUILINO K Ot 414.00 11/05/2014 DMITRY PA, AQUILINO K Ot 250.00 11/05/2014 DMITRY PA, AQUILINO K Ot 272.4 11/05/2014 DMITRY PA, AQUILINO K Ot 401.9 11/05/2014 DMITRY PA, AQUILINO K Ot 414.00 11/05/2014 DMITRY PA, AQUILINO K Ot 785.9 11/05/2014 RISHABH YARELIS A BOOKKEEPER RECEPTIONIST Ot V16.0 11/05/2014 RISHABH, YARELIS A BOOKKEEPER RECEPTIONIST Ot V72.31 11/05/2014 RISHABH YARELIS A BOOKKEEPER RECEPTIONIST Ot V76.12 11/05/2014 RISHABH, YARELIS A BOOKKEEPER RECEPTIONIST Ot V76.51 11/05/2014 RIHSABH, YARELIS A BOOKKEEPER RECEPTIONIST Ot V82.81 11/05/2014 Ot 414.00 11/05/2014 Ot 786.50 11/05/2014 Ot 414.01 11/05/2014 Ot 427.9 11/05/2014 Ot 786.50 11/05/2014 Ot 593.9 11/05/2014 Ot 414.01 11/05/2014 Ot V58.69 11/05/2014 Ot V72.84 11/05/2014 DARLINE TRAYLOR RAILROAD SUPERVISOR OF ENGINES Ot 786.05 11/05/[address] D[address]RAYLOR RAILROAD SUPERVISOR OF ENGINES Ot 786.05 11/05/2014 DAMARIS LUTHER FACC, ALI FACP CCDS Ot 414.00 11/05/2014 DAMARIS LUTHER FACC, JED FACP CCDS Ot 786.50 11/05/2014 DAMARIS LUTHER FACC, JED FACP CCDS Ot 272.4 11/05/2014 DAMARIS LUTHER FACC, ALI FACP CCDS Ot 414.00 11/05/2014 DAMARIS LUTHER FACC, JED FACP CCDS Ot V58.69 11/05/2014 DMITRY PA, AQUILINO K Ot 250.00 11/05/2014 DMITRY PA, AQUILINO K Ot 401.9 11/05/2014 DMITRY PA, AQUILINO K Ot 414.00 11/05/2014 DMITRY PA, AQUILINO K Ot 250.00 11/05/2014 DMITRY PA, AQUILINO K Ot 272.4 11/05/2014 DMITRY PA, AQUILINO K Ot 401.9 11/05/2014 DMITRY PA, AQUILINO K Ot 414.00 11/05/2014 DMITRY PA, AQUILINO K Ot 785.9 11/05/2014 RISHABHYARELIS BOOKKEEPER RECEPTIONIST Ot V16.0 11/05/2014 RISHABHSHERONYARELIS A BOOKKEEPER RECEPTIONIST Ot V72.31 11/05/2014 RISHABHSHERONYARELIS A BOOKKEEPER RECEPTIONIST Ot V76.12 11/05/2014 RISHABH YARELIS Laila BOOKKEEPER RECEPTIONIST Ot V76.51 11/05/2014 RISHABH YARELIS Laila BOOKKEEPER RECEPTIONIST Ot V82.81 11/06/2014 Ot 414.00 11/06/2014 Ot 786.50 11/06/2014 Ot 414.01 11/06/2014 Ot 427.9 11/06/2014 Ot 786.50 11/06/2014 Ot 593.9 11/06/2014 Ot 414.01 11/06/2014 Ot V58.69 11/06/2014 Ot V72.84 11/06/2014 DARLINE TRAYLOR RAILROAD SUPERVISOR OF ENGINES Ot 786.05 11/06/2014 DARLINE TRAYLOR RAILROAD SUPERVISOR OF ENGINES Ot 786.05 11/06/2014 DAMARIS LUTHER FAC, ALI FACP CCDS Ot 414.00 11/06/2014 DAMARIS LUTHER FACC, ALI FACP CCDS Ot 786.50 11/06/2014 DAMARIS LUTHER FACC, ALI FACP CCDS Ot 272.4 11/06/2014 DAMARIS LUTHER FACC, ALI FACP CCDS Ot 414.00 11/06/2014 DAMARIS LUTHER FACC, ALI FACP CCDS Ot V58.69 11/06/2014 DMITRY PA, AQUILINO K Ot 250.00 11/06/2014 DMITRY PA, AQUILINO K Ot 401.9 11/06/2014 NIEVES-ROBB PA, AQUILINO K Ot 414.00 11/06/2014 NIEVES-ROBB PA, AQUILINO K Ot 250.00 11/06/2014 NIEVES-ROBB PA, AUQILINO K Ot 272.4 11/06/2014 NIEVES-ROBB PA, AQUILINO K Ot 401.9 11/06/2014 NIEVES-ROBB PA, AQUILINO K Ot 414.00 11/06/2014 NIEVES-ROBB PA, AQUILINO K Ot 785.9 11/06/2014 RISHABH, YARELIS A BOOKKEEPER RECEPTIONIST Ot V16.0 11/06/2014 RISHABH, YARELIS A BOOKKEEPER RECEPTIONIST Ot V72.31 11/06/2014 RISHABH, YARELIS A BOOKKEEPER RECEPTIONIST Ot V76.12 11/06/2014 RISHABH, YARELIS A BOOKKEEPER RECEPTIONIST Ot V76.51 11/06/2014 RISHABH, YARELIS A BOOKKEEPER RECEPTIONIST Ot V82.81 11/06/2014 NIEVES-ROBB PA, AQUILINO K Ot 272.4 11/06/2014 NIEVES-ROBB PA, AQUILINO K Ot 401.1 11/06/2014 NIEVES-ROBB PA, AQUILINO K Ot 414.9 11/06/2014 NIEVES-ROBB PA, AQUILINO K Ot 433.10 11/06/2014 NIEVES-ROBB PA, AQUILINO K Ot 272.4 11/06/2014 NIEVES-ROBB PA, AQUILINO K Ot 401.1 11/06/2014 NIEVES-ROBB PA, AQUILINO K Ot 414.9 11/06/2014 NIEVES-ROBB PA, AQUILINO K Ot 433.10 11/07/2014 NIEVES-ROBB PA, AQUILINO K Ot 272.4 11/07/2014 NIEVES-ROBB PA, AQUILINO K Ot 401.1 11/07/2014 NIEVES-ROBB PA, AQUILINO K Ot 414.9 11/07/2014 NIEVES-ROBB PA, AQUILINO K Ot 433.10 11/22/2014 NIEVES-ROBB PA, AQUILINO K Ot 272.4 11/22/2014 NIEVES-ROBB PA, AQUILINO K Ot 401.1 11/22/2014 NIEVES-ROBB PA, AQUILINO K Ot 414.9 11/22/2014 NIEVES-ROBB PA, AQUILINO K Ot 433.10 03/10/2015 LESLYE LUTHER, IVELISSE Zuniga Ot E11.9 TYPE 2 DIABETES MELLITUS WITHOUT COMPLIC 03/10/2015 LESLYE LUTHER, IVELISSE Zuniga Ot K20.9 ESOPHAGITIS, UNSPECIFIED 03/10/2015 LESLYE LUTHER, IVELISSE Zuniga Ot Z01.818 03/17/2015 Ot 414.00 03/17/2015 Ot 786.50 03/17/2015 Ot 414.01 03/17/2015 Ot 427.9 03/17/2015 Ot 786.50 03/17/2015 Ot 593.9 03/17/2015 Ot 414.01 03/17/2015 Ot V58.69 03/17/2015 Ot V72.84 03/17/2015 KYMBERLY DARLINE Nadia RAILROAD SUPERVISOR OF ENGINES Ot 786.05 03/17/2015 DARLINE TRAYLOR RAILROAD SUPERVISOR OF ENGINES Ot 786.05 03/17/2015 DAMARIS LUTHER FACC, ALI FACP CCDS Ot 414.00 03/17/2015 DAMARIS LUTHER FACC, ALI FACP CCDS Ot 786.50 03/17/2015 DAMARIS LUTHER FACC, ALI FACP CCDS Ot 272.4 03/17/2015 DAMARIS LUTHER FACC, ALI FACP CCDS Ot 414.00 03/17/2015 DAMARIS LUTHER FACC, ALI FACP CCDS Ot V58.69 03/17/2015 DMITRY PA, AQUILINO K Ot 250.00 03/17/2015 DMITRY PA, AQUILINO K Ot 401.9 03/17/2015 DMITRY PA, AQUILINO K Ot 414.00 03/17/2015 DMITRY PA, AQUILINO K Ot 250.00 03/17/2015 DMITRY PA, AQUILINO K Ot 272.4 03/17/2015 DMITRY PA, AQUILINO K Ot 401.9 03/17/2015 DMITRY PA, AQUILINO K Ot 414.00 03/17/2015 DMITRY PA, AQUILINO K Ot 785.9 03/17/2015 YARELIS KEATING BOOKKEEPER RECEPTIONIST Ot V16.0 03/17/2015 YARELIS KEATING BOOKKEEPER RECEPTIONIST Ot V72.31 03/17/2015 YARELIS KEATING BOOKKEEPER RECEPTIONIST Ot V76.12 03/17/2015 YARELIS KEATING BOOKKEEPER RECEPTIONIST Ot V76.51 03/17/2015 YARELIS KEATING BOOKKEEPER RECEPTIONIST Ot V82.81 03/17/2015 DMITRY PA, AQUILINO K Ot 272.4 03/17/2015 DMITRY PA, AQUILINO K Ot 401.1 03/17/2015 DMITRY PA, AQUILINO K Ot 414.9 03/17/2015 DMITRY PA, AQUILINO K Ot 433.10 03/17/2015 LESLYE LUTHER, IVELISSE Zuniga Ot Z01.818 03/17/2015 LESLYE LUTHER, IVELISSE M Ot Z01.818 03/17/2015 LESLYE LUTHER, IVELISSE M Ot Z12.11 03/17/2015 LESLYE LUTHER, IVELISSE Zuniga Ot Z80.0 03/17/2015 LESLYE LUTHER, IVELISSE Zuniga Ot E11.9 TYPE 2 DIABETES MELLITUS WITHOUT COMPLIC 03/17/2015 LESLYE LUTHER, IVELISSE Zuniga Ot K64.8 OTHER HEMORRHOIDS 03/17/2015 LESLYE LUTHER, IVELISSE Zuniga Ot Z12.11 ENCOUNTER FOR SCREENING FOR MALIGNANT NE 03/17/2015 LESLYE LUTHER, IVELISSE Zuniga Ot Z80.0 FAMILY HISTORY OF MALIGNANT NEOPLASM OF 04/04/2015 LESLYE LUTHER, IVELISSE Zuniga Ot K31.84 06/18/2015 LESLYE LUTHER, IVELISSE M Ot K31.84 06/18/2015 Ot 414.00 06/18/2015 Ot 786.50 06/18/2015 Ot 414.01 06/18/2015 Ot 427.9 06/18/2015 Ot 786.50 06/18/2015 Ot 593.9 06/18/2015 Ot 414.01 06/18/2015 Ot V58.69 06/18/2015 Ot V72.84 06/18/2015 DARLINE TRAYLOR RAILROAD SUPERVISOR OF ENGINES Ot 786.05 06/18/2015 DARLINE TRAYLOR RAILROAD SUPERVISOR OF ENGINES Ot 786.05 06/18/2015 DAMARIS LUTHER FAC, ALI FACP CCDS Ot 414.00 06/18/2015 DAMARIS LUTHER FACC, ALI FACP CCDS Ot 786.50 06/18/2015 DAMARIS LUTHER FACC, ALI FACP CCDS Ot 272.4 06/18/2015 DAMARIS LUTHER FACC, ALI FACP CCDS Ot 414.00 06/18/2015 DAMARIS LUTHER FACC, ALI FACP CCDS Ot V58.69 06/18/2015 DMITRY PA, AQUILINO K Ot 250.00 06/18/2015 DMITRY PA, AQUILINO K Ot 401.9 06/18/2015 DMITRY PA, AQUILINO K Ot 414.00 06/18/2015 DMITRY PA, AQUILINO K Ot 250.00 06/18/2015 DMITRY PA, AQUILINO K Ot 272.4 06/18/2015 DMITRY PA, AQUILINO K Ot 401.9 06/18/2015 DMITRY PA, AQUILINO K Ot 414.00 06/18/2015 DMITRY PA, AQUILINO K Ot 785.9 06/18/2015 YARELIS KEATING A BOOKKEEPER RECEPTIONIST Ot V16.0 06/18/2015 RISHABH YARELIS A BOOKKEEPER RECEPTIONIST Ot V72.31 06/18/2015 RISHABH YARELIS A BOOKKEEPER RECEPTIONIST Ot V76.12 06/18/2015 RISHABH YARELIS A BOOKKEEPER RECEPTIONIST Ot V76.51 06/18/2015 RISHABH YARELIS A BOOKKEEPER RECEPTIONIST Ot V82.81 06/18/2015 DMITRY PA, AQUILINO K Ot 272.4 06/18/2015 DMITRY PA, AQUILINO K Ot 401.1 06/18/2015 DMITRY PA, AQUILINO K Ot 414.9 06/18/2015 DMITRY PA, AQUILINO K Ot 433.10 06/18/2015 LESLYE LUTHER, IVELISSE M Ot Z01.818 06/18/2015 LESLYE LUTHER, IVELISSE Zuniga Ot K31.84 06/18/2015 LESLYE LUTHER, IVELISSE Zuniga Ot Z01.818 06/18/2015 LESLYE LUTHER, IVELISSE M Ot Z12.11 06/18/2015 LESLYE LUTHER, IVELISSE M Ot Z80.0 06/24/2015 LESLYE LUTHER, IVELISSE Zuniga Ot K31.84 07/08/2015 LESLYE LUTHER, IVELISSE Zuniga Ot K31.84 GASTROPARESIS 08/27/2015 DMITRY FUNK, AQUILINO K Ot I25.10 ATHSCL HEART DISEASE OF [place] CORONARY 08/27/2015 NIEVES-AQUILINO LAWTON Ot I25.10 ATHSCL HEART DISEASE OF [place] CORONARY 08/29/2015 AQUILINO MUKHERJEE Ot I25.10 ATHSCL HEART DISEASE OF [place] CORONARY 08/29/2015 AQUILINO MUKHERJEE Ot E78.2 MIXED HYPERLIPIDEMIA 08/29/2015 AQUILINO MUKHERJEE Ot I25.10 ATHSCL HEART DISEASE OF [place] CORONARY 08/29/2015 AQUILINO MUKHERJEE Ot I34.0 NONRHEUMATIC MITRAL (VALVE) INSUFFICIENC 08/29/2015 AQUILINO MUKHERJEE Ot I65.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 09/05/2015 AQUILINO MUKHERJEE Ot I25.10 ATHSCL HEART DISEASE OF [place] CORONARY 09/10/2015 AQUILINO MUKHERJEE Ot E78.2 MIXED HYPERLIPIDEMIA 09/10/2015 AQUILINO MUKHERJEE Ot I25.10 ATHSCL HEART DISEASE OF [place] CORONARY 09/10/2015 AQUILINO MUKHERJEE Ot I34.0 NONRHEUMATIC MITRAL (VALVE) INSUFFICIENC 09/10/2015 AQUILINO MUKHERJEE Ot I65.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 01/13/2016 JYOTSNA EMERY Ot G47.33 OBSTRUCTIVE SLEEP APNEA (ADULT) (PEDIATR 01/13/2016 JYOTSNA EMERY Ot G47.33 OBSTRUCTIVE SLEEP APNEA (ADULT) (PEDIATR 02/09/2016 AQUILINO MUKHERJEE Ot I25.10 ATHSCL HEART DISEASE OF [place] CORONARY 02/12/2016 Ot 414.00 CORON ATHEROSCLER NOS TYPE VESSEL, NATIV 02/12/2016 Ot 786.50 CHEST PAIN NOS 02/12/2016 Ot 414.01 CORONARY ATHEROSCLEROSIS OF [place] CORON 02/12/2016 Ot 427.9 CARDIAC DYSRHYTHMIA NOS 02/12/2016 Ot 786.50 CHEST PAIN NOS 02/12/2016 Ot 593.9 RENAL URETERAL DIS NOS 02/12/2016 Ot 414.01 CORONARY ATHEROSCLEROSIS OF [place] CORON 02/12/2016 Ot V58.69 OT MED,LT, CURRENT USE 02/12/2016 Ot V72.84 EXAM PRE- OPERATIVE NOS 02/12/2016 DARLINE TRAYLOR RAILROAD SUPERVISOR OF ENGINES Ot 786.05 SHORTNESS OF BREATH 02/12/2016 DARLINE TRAYLOR RAILROAD SUPERVISOR OF ENGINES Ot 786.05 SHORTNESS OF BREATH 02/12/2016 DAMARIS LUTHER FACC, ALI FACP CCDS Ot 414.00 CORON ATHEROSCLER NOS TYPE VESSEL, NATIV 02/12/2016 DAMARIS LUTHER FACC, ALI FACP CCDS Ot 786.50 CHEST PAIN NOS 02/12/2016 DAMARIS LUTHER FACC, ALI FACP CCDS Ot 272.4 HYPERLIPIDEMIA NEC/NOS 02/12/2016 DAMARIS LUTHER FACGino, ALI FACP CCDS Ot 414.00 CORON ATHEROSCLER NOS TYPE VESSEL, NATIV 02/12/2016 DAMARIS LUTHER FACC, ALI FACP CCDS Ot V58.69 OT MED,LT,CURRENT USE 02/12/2016 AQUILINO MUKHERJEE Ot 250.00 DIAB RANDALL WO COMPL, TYPE II OR UNSPEC TY 02/12/2016 AQUILINO MUKHERJEE Ot 401.9 HYPERTENSION NOS 02/12/2016 AQUILINO MUKHERJEE Ot 414.00 CORON ATHEROSCLER NOS TYPE VESSEL, NATIV 02/12/2016 AQUILINO MUKHERJEE Ot 250.00 DIAB RANDALL WO COMPL, TYPE II OR UNSPEC TY 02/12/2016 AQUILINO MUKHERJEE Ot 272.4 HYPERLIPIDEMIA NEC/NOS 02/12/2016 AQULIINO MUKHERJEE Ot 401.9 HYPERTENSION NOS 02/12/2016 AQUILINO MUKHERJEE Ot 414.00 CORON ATHEROSCLER NOS TYPE VESSEL, NATIV 02/12/2016 AUQILINO MUKHERJEE Ot 785.9 CARDIOVAS SYS SYMP NEC 02/12/2016 YARELIS KEATING APRN Ot V16.0 FAMILY HX-GI MALIGNANCY 02/12/2016 YARELIS KEATING APRN Ot V72.31 ROUTINE GYNECOLOGICAL EXAMINATION 02/12/2016 YARELIS KEATING APRN Ot V76.12 OTH SCREEN MAMMO-MALIGN NEOPLASM OF [place] 02/12/2016 YARELIS KEATING BOOKKEEPER RECEPTIONIST Ot V76.51 SCREEN MAL NEOP-COLON 02/12/2016 YARELIS KEATING BOOKKEEPER RECEPTIONIST Ot V82.81 SCREENING FOR OSTEOPOROSIS 02/12/2016 AQUILINO MUKHERJEE Ot 272.4 HYPERLIPIDEMIA NEC/NOS 02/12/2016 AQUILINO MUKHERJEE Ot 401.1 BENIGN HYPERTENSION 02/12/2016 AQUILINO MUKHERJEE Ot 414.9 CHR ISCHEMIC HRT DIS NOS 02/12/2016 AQUILINO MUKHERJEE Ot 433.10 CAROTID ARTERY OCCLUSION W O CEREBRAL IN 02/12/2016 LESLYE LUTHER, IVELISSE Zuniga Ot Z01.818 ENCOUNTER FOR OTHER PREPROCEDURAL EXAMIN 02/12/2016 LESLYE LUTHER, IVELISSE Zuniga Ot K31.84 GASTROPARESIS 02/12/2016 LESLYE LUTHER, IVELISSE Zuniga Ot Z01.818 ENCOUNTER FOR OTHER PREPROCEDURAL EXAMIN 02/12/2016 LESLYE LUTHER, IVELISSE Zuniga Ot Z12.11 ENCOUNTER FOR SCREENING FOR MALIGNANT NE 02/12/2016 LESLYE LUTHER, IVELISSE Zuniga Ot Z80.0 FAMILY HISTORY OF MALIGNANT NEOPLASM OF 02/12/2016 AQUILINO MUKHERJEE Ot I25.10 ATHSCL HEART DISEASE OF [place] CORONARY 02/12/2016 AQUILINO MUKHERJEE Ot E78.2 MIXED HYPERLIPIDEMIA 02/12/2016 AQUILINO MUKHERJEE Ot I25.10 ATHSCL HEART DISEASE OF [place] CORONARY 02/12/2016 AQUILINO MUKHERJEE Ot I34.0 NONRHEUMATIC MITRAL (VALVE) INSUFFICIENC 02/12/2016 AQUILINO MUKHERJEE Ot I65.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 02/12/2016 AQUILINO MUKHERJEE Ot E78.2 MIXED HYPERLIPIDEMIA 02/12/2016 AQUILINO MUKHERJEE Ot I25.10 ATHSCL HEART DISEASE OF [place] CORONARY 02/12/2016 AQUILINO MUKHERJEE Ot I34.0 NONRHEUMATIC MITRAL (VALVE) INSUFFICIENC 02/12/2016 AQUILINO MUKHERJEE Ot I65.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 02/26/2016 AQUILINO MUKHERJEE Ot E78.2 MIXED HYPERLIPIDEMIA 02/26/2016 AQUILINO MUKHERJEE Ot I25.10 ATHSCL HEART DISEASE OF [place] CORONARY 02/26/2016 AQUILINO MUKHERJEE Ot I34.0 NONRHEUMATIC MITRAL (VALVE) INSUFFICIENC 02/26/2016 AQUILINO MUKHERJEE Ot I65.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 03/05/2016 Ot 414.00 CORON ATHEROSCLER NOS TYPE VESSEL, NATIV 03/05/2016 Ot 786.50 CHEST PAIN NOS 03/05/2016 Ot 414.01 CORONARY ATHEROSCLEROSIS OF [place] CORON 03/05/2016 Ot 427.9 CARDIAC DYSRHYTHMIA NOS 03/05/2016 Ot 786.50 CHEST PAIN NOS 03/05/2016 Ot 593.9 RENAL URETERAL DIS NOS 03/05/2016 Ot 414.01 CORONARY ATHEROSCLEROSIS OF [place] CORON 03/05/2016 Ot V58.69 OT MED,LT, CURRENT USE 03/05/2016 Ot V72.84 EXAM PRE- OPERATIVE NOS 03/05/[address] DARLINE TRAYLOR RAILROAD SUPERVISOR OF ENGINES Ot 786.05 SHORTNESS OF BREATH 03/05/[address] RAILROAD SUPERVISOR OF ENGINES Ot 786.05 SHORTNESS OF BREATH 03/05/2016 DAMARIS LUTHER FACC, ALI FACP CCDS Ot 414.00 CORON ATHEROSCLER NOS TYPE VESSEL, NATIV 03/05/2016 DAMARIS LUTHER FACGino, ALI FACP CCDS Ot 786.50 CHEST PAIN NOS 03/05/2016 DAMARIS LUTHER FACC, ALI FACP CCDS Ot 272.4 HYPERLIPIDEMIA NEC/NOS 03/05/2016 DAMARIS LUTHER FACC, ALI FACP CCDS Ot 414.00 CORON ATHEROSCLER NOS TYPE VESSEL, NATIV 03/05/2016 DAMARIS LUTHER FACC, ALI FACP CCDS Ot V58.69 OT MED,LT,CURRENT USE 03/05/2016 AQUILINO MUKHERJEE Ot 250.00 DIAB RANDALL WO COMPL, TYPE II OR UNSPEC TY 03/05/2016 AQUILINO MUKHERJEE Ot 401.9 HYPERTENSION NOS 03/05/2016 AQUILINO MUKHERJEE Ot 414.00 CORON ATHEROSCLER NOS TYPE VESSEL, NATIV 03/05/2016 AQUILINO MUKHERJEE Ot 250.00 DIAB RANDALL WO COMPL, TYPE II OR UNSPEC TY 03/05/2016 AQUILINO MUKHERJEE Ot 272.4 HYPERLIPIDEMIA NEC/NOS 03/05/2016 AQUILINO MUKHERJEE Ot 401.9 HYPERTENSION NOS 03/05/2016 AQUILINO MUKHERJEE Ot 414.00 CORON ATHEROSCLER NOS TYPE VESSEL, NATIV 03/05/2016 AQUILINO MUKHERJEE Ot 785.9 CARDIOVAS SYS SYMP NEC 03/05/2016 YARELIS KEATING APRN Ot V16.0 FAMILY HX-GI MALIGNANCY 03/05/2016 YARELIS KEATING BOOKKEEPER RECEPTIONIST Ot V72.31 ROUTINE GYNECOLOGICAL EXAMINATION 03/05/2016 YARELIS KEATING BOOKKEEPER RECEPTIONIST Ot V76.12 OTH SCREEN MAMMO-MALIGN NEOPLASM OF [place] 03/05/2016 YARELIS KEATING BOOKKEEPER RECEPTIONIST Ot V76.51 SCREEN MAL NEOP-COLON 03/05/2016 YARELIS KEATING APRN Ot V82.81 SCREENING FOR OSTEOPOROSIS 03/05/2016 AQUILINO MUKHERJEE Ot 272.4 HYPERLIPIDEMIA NEC/NOS 03/05/2016 AQUILINO MUKHERJEE Ot 401.1 BENIGN HYPERTENSION 03/05/2016 AQUILINO MUKHERJEE Ot 414.9 CHR ISCHEMIC HRT DIS NOS 03/05/2016 AQUILINO MUKHERJEE Ot 433.10 CAROTID ARTERY OCCLUSION W O CEREBRAL IN 03/05/2016 LESLYE LUTHER, IVELISSE Zuniga Ot Z01.818 ENCOUNTER FOR OTHER PREPROCEDURAL EXAMIN 03/05/2016 LESLYE LUTHER, IVELISSE Zuniga Ot K31.84 GASTROPARESIS 03/05/2016 LESLYE LUTHER, IVELISSE Zuniga Ot Z01.818 ENCOUNTER FOR OTHER PREPROCEDURAL EXAMIN 03/05/2016 LESLYE LUTHER, IVELISSE Zuniga Ot Z12.11 ENCOUNTER FOR SCREENING FOR MALIGNANT NE 03/05/2016 LESLYE LUTHER, IVELISSE Zuniga Ot Z80.0 FAMILY HISTORY OF MALIGNANT NEOPLASM OF 03/05/2016 AQUILINO MUKHERJEE Ot I25.10 ATHSCL HEART DISEASE OF [place] CORONARY 03/05/2016 AQUILINO MUKHERJEE Ot E78.2 MIXED HYPERLIPIDEMIA 03/05/2016 AQUILINO MUKHERJEE Ot I25.10 ATHSCL HEART DISEASE OF [place] CORONARY 03/05/2016 AQUILINO MUKHERJEE Ot I34.0 NONRHEUMATIC MITRAL (VALVE) INSUFFICIENC 03/05/2016 AQUILINO MUKHERJEE Ot I65.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 03/05/2016 JOVANA BANDA MD Ot E11.9 TYPE 2 DIABETES MELLITUS WITHOUT COMPLIC 03/05/2016 JOVANA BANDA MD, Ot M53.3 SACROCOCCYGEAL DISORDERS, NOT ELSEWHERE 03/05/2016 JOVANA BANDA MD Ot Z79.4 DRAPERY INSPECTOR (CURRENT) USE OF INSULIN 03/17/2016 JOVANA BANDA MD, Ot E11.9 TYPE 2 DIABETES MELLITUS WITHOUT COMPLIC 03/17/2016 JOVANA BANDA MD, Ot M53.3 SACROCOCCYGEAL DISORDERS, NOT ELSEWHERE 03/17/2016 JOVANA BANDA MD, Ot Z79.4 SNF (CURRENT) USE OF INSULIN 04/21/2016 SHALA SPENCER KATHY K Ot E11.9 TYPE 2 DIABETES MELLITUS WITHOUT COMPLIC 04/21/2016 SHALA DO KATHY K Ot I10 ESSENTIAL (PRIMARY) HYPERTENSION 04/21/2016 SHALAAnup SPENCER KATHY K Ot J40 BRONCHITIS, NOT SPECIFIED ACUTE OR CH 04/21/2016 SHALA DO KATHY K Ot J44.9 CHRONIC OBSTRUCTIVE PULMONARY DISEASE, U 04/21/2016 SHALA DO KATHY K Ot K44.9 DIAPHRAGMATIC HERNIA WITHOUT OBSTRUCTION 04/21/2016 SHALA DO KATHY K Ot K57.30 DVRTCLOS OF LG INT W/O PERFORATION OR AB 04/21/2016 SHALA DO KATHY K Ot K76.0 FATTY (CHANGE OF) LIVER, NOT ELSEWHERE C 04/21/2016 SHALA DO KATHY K Ot R11.2 NAUSEA WITH VOMITING, UNSPECIFIED 04/21/2016 SHALA DO KATHY K Ot R51 HEADACHE 04/21/2016 SHALA DO KATHY K Ot Z79.4 SNF (CURRENT) USE OF INSULIN 04/21/2016 SHALA DO KATHY K Ot Z79.84 SNF (CURRENT) USE OF ORAL HYPOGLYC 04/21/2016 SHALA DO KATHY K Ot Z79.899 OTHER SNF (CURRENT) DRUG THERAPY 04/21/2016 SHALAAnup SPENCER KATHY K Ot Z95.5 PRESENCE OF CORONARY ANGIOPLASTY IMPLANT 05/07/2016 NAMITA ANDRADE Ot E11.9 TYPE 2 DIABETES MELLITUS WITHOUT COMPLIC 05/07/2016 NAMITA ANDRADE Ot I10 ESSENTIAL (PRIMARY) HYPERTENSION 05/07/2016 NAMITA ANDRADE Ot I25.10 ATHSCL HEART DISEASE OF [place] CORONARY 05/07/2016 NAMITA ANDRADE Ot I70.0 ATHEROSCLEROSIS OF [place] 05/07/2016 NAMITA ANDRADE Ot K56.41 FECAL IMPACTION 05/07/2016 NAMITA ANDRADE Ot K59.00 CONSTIPATION, UNSPECIFIED 05/07/2016 NAMITA ANDRADE Ot K76.0 FATTY (CHANGE OF) LIVER, NOT ELSEWHERE C 05/07/2016 NAMITA ANDRADE Ot Z79.4 SNF (CURRENT) USE OF INSULIN 05/07/2016 NAMITA ANDRADE Ot Z79.84 DRAPERY INSPECTOR (CURRENT) USE OF ORAL HYPOGLYC 05/07/2016 NAMITA ANDRADE Ot Z79.899 OTHER SNF (CURRENT) DRUG THERAPY 05/07/2016 NAMITA ANDRADE Ot Z95.5 PRESENCE OF CORONARY ANGIOPLASTY IMPLANT 05/08/2016 BRIGITTE WOLF APRN Ot E11.9 TYPE 2 DIABETES MELLITUS WITHOUT COMPLIC 05/08/2016 BRIGITTE WOLF APRN Ot I10 ESSENTIAL (PRIMARY) HYPERTENSION 05/08/2016 BRIGITTE WOLF APRN Ot I25.10 ATHSCL HEART DISEASE OF [place] CORONARY 05/08/2016 BRIGITTE WOLF APRN Ot K56.41 FECAL IMPACTION 05/08/2016 BRIGITTE WOLF APRN Ot Z79.4 DRAPERY INSPECTOR (CURRENT) USE OF INSULIN 05/08/2016 BRIGITTE WOLF APRN Ot Z79.899 OTHER SNF (CURRENT) DRUG THERAPY 05/10/2016 BRIGITTE WOLF APRN Ot E11.9 TYPE 2 DIABETES MELLITUS WITHOUT COMPLIC 05/10/2016 BRIGITTE WOLF APRN Ot I10 ESSENTIAL (PRIMARY) HYPERTENSION 05/10/2016 BRIGITTE WOLF APRN Ot I25.10 ATHSCL HEART DISEASE OF [place] CORONARY 05/10/2016 BRIGITTE WOLF APRN Ot K56.41 FECAL IMPACTION 05/10/2016 BRIGITTE WOLF APRN Ot Z79.4 DRAPERY INSPECTOR (CURRENT) USE OF INSULIN 05/10/2016 BRIGITTE WOLF APRN Ot Z79.899 OTHER SNF (CURRENT) DRUG THERAPY 08/31/2016 Ot 593.9 RENAL URETERAL DIS NOS 08/31/2016 Ot 414.01 CORONARY ATHEROSCLEROSIS OF [place] CORON 08/31/2016 Ot V58.69 OTH MED,LT, CURRENT USE 08/31/2016 Ot V72.84 EXAM PRE- OPERATIVE NOS 08/31/2016 DARLINE TRAYLOR RAILROAD SUPERVISOR OF ENGINES Ot 786.05 SHORTNESS OF BREATH 08/31/2016 DARLINE TRAYLOR RAILROAD SUPERVISOR OF ENGINES Ot 786.05 SHORTNESS OF BREATH 08/31/2016 DAMARIS LUTHER FACC, ALI FACP CCDS Ot 414.00 CORON ATHEROSCLER NOS TYPE VESSEL, NATIV 08/31/2016 DAMARIS LUTHER FACC, ALI FACP CCDS Ot 786.50 CHEST PAIN NOS 08/31/2016 DAMARIS LUTHER FACC, ALI FACP CCDS Ot 272.4 HYPERLIPIDEMIA NEC/NOS 08/31/2016 DAMARIS LUTHER FACC, ALI FACP CCDS Ot 414.00 CORON ATHEROSCLER NOS TYPE VESSEL, NATIV 08/31/2016 DAMARIS LUTHER FACC, ALI FACP CCDS Ot V58.69 OTH MED,LT,CURRENT USE 08/31/2016 AQUILINO MUKHERJEE Ot 250.00 DIAB RANDALL WO COMPL, TYPE II OR UNSPEC TY 08/31/2016 AQUILINO MUKHERJEE Ot 401.9 HYPERTENSION NOS 08/31/2016 AQUILINO MUKHERJEE Ot 414.00 CORON ATHEROSCLER NOS TYPE VESSEL, NATIV 08/31/2016 AQUILINO MUKHERJEE Ot 250.00 DIAB RANDALL WO COMPL, TYPE II OR UNSPEC TY 08/31/2016 AQUILINO MUKHERJEE Ot 272.4 HYPERLIPIDEMIA NEC/NOS 08/31/2016 AQUILINO MUKHERJEE Ot 401.9 HYPERTENSION NOS 08/31/2016 AQUILINO MUKHERJEE Ot 414.00 CORON ATHEROSCLER NOS TYPE VESSEL, NATIV 08/31/2016 AQUILINO MUKHERJEE Ot 785.9 CARDIOVAS SYS SYMP NEC 08/31/2016 YARELIS KEATING APRN Ot V16.0 FAMILY HX-GI MALIGNANCY 08/31/2016 YARELIS KEATING APRN Ot V72.31 ROUTINE GYNECOLOGICAL EXAMINATION 08/31/2016 YARELIS KEATING BOOKKEEPER RECEPTIONIST Ot V76.12 OTH SCREEN MAMMO-MALIGN NEOPLASM OF [place] 08/31/2016 YARELIS KEATING BOOKKEEPER RECEPTIONIST Ot V76.51 SCREEN MAL NEOP-COLON 08/31/2016 RISHABHSHERONYARELIS Laila BOOKKEEPER RECEPTIONIST Ot V82.81 SCREENING FOR OSTEOPOROSIS 08/31/2016 AQUILINO MUKHERJEE Ot 272.4 HYPERLIPIDEMIA NEC/NOS 08/31/2016 AQUILINO MUKHERJEE Ot 401.1 BENIGN HYPERTENSION 08/31/2016 AQUILINO MUKHERJEE Ot 414.9 CHR ISCHEMIC HRT DIS NOS 08/31/2016 AQUILINO MUKHERJEE Ot 433.10 CAROTID ARTERY OCCLUSION W O CEREBRAL IN 08/31/2016 LESLYE LUTHER, IVELISSE Zuniga Ot Z01.818 ENCOUNTER FOR OTHER PREPROCEDURAL EXAMIN 08/31/2016 LESLYE LUTHER, IVELISSE Zuniga Ot K31.84 GASTROPARESIS 08/31/2016 LESLYE LUTHER, IVELISSE Zuniga Ot Z01.818 ENCOUNTER FOR OTHER PREPROCEDURAL EXAMIN 08/31/2016 LESLYE LUTHER, IVELISSE Zuniga Ot Z12.11 ENCOUNTER FOR SCREENING FOR MALIGNANT NE 08/31/2016 LESLYE LUTHER, IVELISSE Zuniga Ot Z80.0 FAMILY HISTORY OF MALIGNANT NEOPLASM OF 08/31/2016 AQUILINO MUKHERJEE Ot I25.10 ATHSCL HEART DISEASE OF [place] CORONARY 08/31/2016 AQUILINO MUKHERJEE Ot E78.2 MIXED HYPERLIPIDEMIA 08/31/2016 AQUILINO MUKHERJEE Ot I25.10 ATHSCL HEART DISEASE OF [place] CORONARY 08/31/2016 AQUILINO MUKHERJEE Ot I34.0 NONRHEUMATIC MITRAL (VALVE) INSUFFICIENC 08/31/2016 AQUILINO MUKHERJEE Ot I65.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 10/19/2016 AQUILINO MUKHERJEE Ot E78.2 MIXED HYPERLIPIDEMIA 10/19/2016 AQUILINO MUKHERJEE Ot I25.10 ATHSCL HEART DISEASE OF [place] CORONARY 10/19/2016 Ot 414.01 CORONARY ATHEROSCLEROSIS OF [place] CORON 10/19/2016 Ot V58.69 OTH MED,LT, CURRENT USE 10/19/2016 Ot V72.84 EXAM PRE- OPERATIVE NOS 10/19/2016 DARLINE TRAYLOR RAILROAD SUPERVISOR OF ENGINES Ot 786.05 SHORTNESS OF BREATH 10/19/[address]LOR RAILROAD SUPERVISOR OF ENGINES Ot 786.05 SHORTNESS OF BREATH 10/19/2016 DAMARIS HART, ALI FACP CCDS Ot 414.00 CORON ATHEROSCLER NOS TYPE VESSEL, NATIV 10/19/2016 DAMARIS LUTHER FACC, ALI FACP CCDS Ot 786.50 CHEST PAIN NOS 10/19/2016 DAMARIS LUTHER FACC, ALI FACP CCDS Ot 272.4 HYPERLIPIDEMIA NEC/NOS 10/19/2016 DAMARIS LUTHER FAC, ALI FACP CCDS Ot 414.00 CORON ATHEROSCLER NOS TYPE VESSEL, NATIV 10/19/2016 DAMARIS LUTHER FAC, ALI FACP CCDS Ot V58.69 OTH MED,LT,CURRENT USE 10/19/2016 AQUILINO MUKHERJEE Ot 250.00 DIAB RANDALL WO COMPL, TYPE II OR UNSPEC TY 10/19/2016 AQUILINO MUKHERJEE Ot 401.9 HYPERTENSION NOS 10/19/2016 AQUILINO MUKHERJEE Ot 414.00 CORON ATHEROSCLER NOS TYPE VESSEL, NATIV 10/19/2016 AQUILINO MUKHERJEE Ot 250.00 DIAB RANDALL WO COMPL, TYPE II OR UNSPEC TY 10/19/2016 AQUILINO MUKHERJEE Ot 272.4 HYPERLIPIDEMIA NEC/NOS 10/19/2016 AQUILINO MUKHERJEE Ot 401.9 HYPERTENSION NOS 10/19/2016 AQUILINO MUKHERJEE Ot 414.00 CORON ATHEROSCLER NOS TYPE VESSEL, NATIV 10/19/2016 AQUILINO MUKHERJEE Ot 785.9 CARDIOVAS SYS SYMP NEC 10/19/2016 YARELIS KEATING APRN Ot V16.0 FAMILY HX-GI MALIGNANCY 10/19/2016 YARELIS KEATING APRN Ot V72.31 ROUTINE GYNECOLOGICAL EXAMINATION 10/19/2016 YARELIS KEATING APRN Ot V76.12 OTH SCREEN MAMMO-MALIGN NEOPLASM OF [place] 10/19/2016 YARELIS KEATING APRN Ot V76.51 SCREEN MAL NEOP-COLON 10/19/2016 YARELIS KEATING BOOKKEEPER RECEPTIONIST Ot V82.81 SCREENING FOR OSTEOPOROSIS 10/19/2016 AQUILINO MUKHERJEE Ot 272.4 HYPERLIPIDEMIA NEC/NOS 10/19/2016 AQUILINO MUKHERJEE Ot 401.1 BENIGN HYPERTENSION 10/19/2016 AQUILINO MUKHERJEE Ot 414.9 CHR ISCHEMIC HRT DIS NOS 10/19/2016 AQUILINO MUKHERJEE Ot 433.10 CAROTID ARTERY OCCLUSION W O CEREBRAL IN 10/19/2016 LESLYE LUTHER, IVELISSE Zuniga Ot Z01.818 ENCOUNTER FOR OTHER PREPROCEDURAL EXAMIN 10/19/2016 LESLYE LUTHER, IVELISSE Zuniga Ot K31.84 GASTROPARESIS 10/19/2016 LESLYE LUTHER, IVELISSE Zuniga Ot Z01.818 ENCOUNTER FOR OTHER PREPROCEDURAL EXAMIN 10/19/2016 LESLYE LUTHER, IVELISSE Zuniga Ot Z12.11 ENCOUNTER FOR SCREENING FOR MALIGNANT NE 10/19/2016 LESLYE LUTHER, IVELISSE Zuniga Ot Z80.0 FAMILY HISTORY OF MALIGNANT NEOPLASM OF 10/19/2016 AQUILINO MUKHERJEE Ot I25.10 ATHSCL HEART DISEASE OF [place] CORONARY 10/19/2016 AQUILINO MUKHERJEE Ot E78.2 MIXED HYPERLIPIDEMIA 10/19/2016 AQUILINO MUKHERJEE Ot I25.10 ATHSCL HEART DISEASE OF [place] CORONARY 10/19/2016 AQUILINO MUKHERJEE Ot I34.0 NONRHEUMATIC MITRAL (VALVE) INSUFFICIENC 10/19/2016 AQUILINO MUKHERJEE Ot I65.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 10/19/2016 AQUILINO MUKHERJEE Ot E78.2 MIXED HYPERLIPIDEMIA 10/19/2016 AQUILINO MUKHERJEE Ot I25.10 ATHSCL HEART DISEASE OF [place] CORONARY 10/29/2016 Ot 414.01 CORONARY ATHEROSCLEROSIS OF [place] CORON 10/29/2016 Ot V58.69 OTH MED,LT, CURRENT USE 10/29/2016 Ot V72.84 EXAM PRE- OPERATIVE NOS 10/29/2016 DARLINE TRAYLOR Ot 786.05 SHORTNESS OF BREATH 10/29/2016 DARLINE TRAYLOR Ot 786.05 SHORTNESS OF BREATH 10/29/2016 DAMARIS LUTHER FACC, JED FACP CCDS Ot 414.00 CORON ATHEROSCLER NOS TYPE VESSEL, NATIV 10/29/2016 DAMARIS LUTHER FACC, ALI FACP CCDS Ot 786.50 CHEST PAIN NOS 10/29/2016 DAMARIS LUTHER FACC, ALI FACP CCDS Ot 272.4 HYPERLIPIDEMIA NEC/NOS 10/29/2016 DAMARIS LUTHER FACC, ALI FACP CCDS Ot 414.00 CORON ATHEROSCLER NOS TYPE VESSEL, NATIV 10/29/2016 DAMARIS HART, JED FACP CCDS Ot V58.69 OT MED,LT,CURRENT USE 10/29/2016 AQUILINO MUKHERJEE Ot 250.00 DIAB RANDALL WO COMPL, TYPE II OR UNSPEC TY 10/29/2016 AQUILINO MUKHERJEE Ot 401.9 HYPERTENSION NOS 10/29/2016 AQUILINO MUKHERJEE Ot 414.00 CORON ATHEROSCLER NOS TYPE VESSEL, NATIV 10/29/2016 AQUILINO MUKHERJEE Ot 250.00 DIAB RANDALL WO COMPL, TYPE II OR UNSPEC TY 10/29/2016 AQUILINO MUKHERJEE Ot 272.4 HYPERLIPIDEMIA NEC/NOS 10/29/2016 AQUILINO MUKHERJEE Ot 401.9 HYPERTENSION NOS 10/29/2016 AQUILINO MUKHERJEE Ot 414.00 CORON ATHEROSCLER NOS TYPE VESSEL, NATIV 10/29/2016 AQUILINO MUKHERJEE Ot 785.9 CARDIOVAS SYS SYMP NEC 10/29/2016 YARELIS KEATING APRN Ot V16.0 FAMILY HX-GI MALIGNANCY 10/29/2016 YARELIS KEATING BOOKKEEPER RECEPTIONIST Ot V72.31 ROUTINE GYNECOLOGICAL EXAMINATION 10/29/2016 YARELIS KEATING APRN Ot V76.12 OTH SCREEN MAMMO-MALIGN NEOPLASM OF [place] 10/29/2016 YARELIS KEATING BOOKKEEPER RECEPTIONIST Ot V76.51 SCREEN MAL NEOP-COLON 10/29/2016 YARELIS KEATING BOOKKEEPER RECEPTIONIST Ot V82.81 SCREENING FOR OSTEOPOROSIS 10/29/2016 AQUILINO MUKHERJEE Ot 272.4 HYPERLIPIDEMIA NEC/NOS 10/29/2016 AQUILINO MUKHERJEE Ot 401.1 BENIGN HYPERTENSION 10/29/2016 AQUILINO MUKHERJEE Ot 414.9 CHR ISCHEMIC HRT DIS NOS 10/29/2016 AQUILINO MUKHERJEE Ot 433.10 CAROTID ARTERY OCCLUSION W O CEREBRAL IN 10/29/2016 LESLYE LUTHER, IVELISSE Zuniga Ot Z01.818 ENCOUNTER FOR OTHER PREPROCEDURAL EXAMIN 10/29/2016 LESLYE LUTHER, IVELISSE Zuniga Ot K31.84 GASTROPARESIS 10/29/2016 LESLYE LUTHER, IVELISSE Zuniga Ot Z01.818 ENCOUNTER FOR OTHER PREPROCEDURAL EXAMIN 10/29/2016 LESLYE LUTHER, IVELISSE Zuniga Ot Z12.11 ENCOUNTER FOR SCREENING FOR MALIGNANT NE 10/29/2016 LESLYE LUTHER, IVELISSE Zuniga Ot Z80.0 FAMILY HISTORY OF MALIGNANT NEOPLASM OF 10/29/2016 AQUILINO MUKHERJEE Ot I25.10 ATHSCL HEART DISEASE OF [place] CORONARY 10/29/2016 AQUILINO MUKHERJEE Ot E78.2 MIXED HYPERLIPIDEMIA 10/29/2016 AQUILINO MUKHERJEE Ot I25.10 ATHSCL HEART DISEASE OF [place] CORONARY 10/29/2016 AQUILINO MUKHERJEE Ot I34.0 NONRHEUMATIC MITRAL (VALVE) INSUFFICIENC 10/29/2016 AQUILINO MUKHERJEE Ot I65.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 10/29/2016 AQUILINO MUKHERJEE Ot E78.2 MIXED HYPERLIPIDEMIA 10/29/2016 AQUILINO MUKHERJEE Ot I25.10 ATHSCL HEART DISEASE OF [place] CORONARY 11/02/2016 AQUILINO MUKHERJEE Ot E78.2 MIXED HYPERLIPIDEMIA 11/02/2016 AQUILINO MUKHERJEE Ot I25.10 ATHSCL HEART DISEASE OF [place] CORONARY 11/12/2016 Ot 414.01 CORONARY ATHEROSCLEROSIS OF [place] CORON 11/12/2016 Ot V58.69 OTH MED,LT, CURRENT USE 11/12/2016 Ot V72.84 EXAM PRE- OPERATIVE NOS 11/12/2016 DARLINE TRAYLOR Ot 786.05 SHORTNESS OF BREATH 11/12/2016 DARLINE TRAYLOR Ot 786.05 SHORTNESS OF BREATH 11/12/2016 DAMARIS LUTHER FACC, ALI FACP CCDS Ot 414.00 CORON ATHEROSCLER NOS TYPE VESSEL, NATIV 11/12/2016 DAMARIS LUTHER FACC, JED FACP CCDS Ot 786.50 CHEST PAIN NOS 11/12/2016 DAMARIS LUTHER FACC, JED FACP CCDS Ot 272.4 HYPERLIPIDEMIA NEC/NOS 11/12/2016 DAMARIS LUTHER FACC, JED FACP CCDS Ot 414.00 CORON ATHEROSCLER NOS TYPE VESSEL, NATIV 11/12/2016 DAMARIS LUTHER FACC, [facility] Ot V58.69 OT MED,LT,CURRENT USE 11/12/2016 AQUILINO MUKHERJEE Ot 250.00 DIAB RANDALL WO COMPL, TYPE II OR UNSPEC TY 11/12/2016 AQUILINO MUKHERJEE Ot 401.9 HYPERTENSION NOS 11/12/2016 AQUILINO MUKHERJEE Ot 414.00 CORON ATHEROSCLER NOS TYPE VESSEL, NATIV 11/12/2016 AQUILINO MUKHERJEE Ot 250.00 DIAB RANDALL WO COMPL, TYPE II OR UNSPEC TY 11/12/2016 AQUILINO MUKHERJEE Ot 272.4 HYPERLIPIDEMIA NEC/NOS 11/12/2016 AQUILINO MUKHERJEE Ot 401.9 HYPERTENSION NOS 11/12/2016 AQUILINO MUKHERJEE Ot 414.00 CORON ATHEROSCLER NOS TYPE VESSEL, NATIV 11/12/2016 AQUILINO MUKHERJEE Ot 785.9 CARDIOVAS SYS SYMP NEC 11/12/2016 YARELIS KEATING APRN Ot V16.0 FAMILY HX-GI MALIGNANCY 11/12/2016 YARELIS KEATING APRN Ot V72.31 ROUTINE GYNECOLOGICAL EXAMINATION 11/12/2016 YARELIS KEATING APRN Ot V76.12 OTH SCREEN MAMMO-MALIGN NEOPLASM OF [place] 11/12/2016 YARELIS KEAITNG APRN Ot V76.51 SCREEN MAL NEOP-COLON 11/12/2016 YARELIS KEATING APRN Ot V82.81 SCREENING FOR OSTEOPOROSIS 11/12/2016 AQUILINO MUKHERJEE Ot 272.4 HYPERLIPIDEMIA NEC/NOS 11/12/2016 AQUILINO MUKHERJEE Ot 401.1 BENIGN HYPERTENSION 11/12/2016 AQUILINO MUKHERJEE Ot 414.9 CHR ISCHEMIC HRT DIS NOS 11/12/2016 AQUILINO MUKHERJEE Ot 433.10 CAROTID ARTERY OCCLUSION W O CEREBRAL IN 11/12/2016 LESLYE LUTHER, IVELISSE Zuniga Ot Z01.818 ENCOUNTER FOR OTHER PREPROCEDURAL EXAMIN 11/12/2016 LESLYE LUTHER, IVELISSE Zuniga Ot K31.84 GASTROPARESIS 11/12/2016 LESLYE LUTHER, IVELISSE Zuniga Ot Z01.818 ENCOUNTER FOR OTHER PREPROCEDURAL EXAMIN 11/12/2016 LESLYE LUTHER, IVELISSE Zuniga Ot Z12.11 ENCOUNTER FOR SCREENING FOR MALIGNANT NE 11/12/2016 LESLYE LUTHER, IVELISSE Zuniga Ot Z80.0 FAMILY HISTORY OF MALIGNANT NEOPLASM OF 11/12/2016 AQUILINO MUKHERJEE Ot I25.10 ATHSCL HEART DISEASE OF [place] CORONARY 11/12/2016 AQUILINO MUKHERJEE Ot E78.2 MIXED HYPERLIPIDEMIA 11/12/2016 AQUILINO MUKHERJEE Ot I25.10 ATHSCL HEART DISEASE OF [place] CORONARY 11/12/2016 AQUILINO MUKHERJEE Ot I34.0 NONRHEUMATIC MITRAL (VALVE) INSUFFICIENC 11/12/2016 AQUILINO MUKHERJEE Ot I65.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 11/12/2016 AQUILINO MUKHERJEE Ot E78.2 MIXED HYPERLIPIDEMIA 11/12/2016 AQUILINO MUKHERJEE Ot I25.10 ATHSCL HEART DISEASE OF [place] CORONARY 11/16/2016 RADHIKA GARCIA Ot M19.011 PRIMARY OSTEOARTHRITIS, RIGHT SHOULDER 11/16/2016 RADHIKA GARCIA Ot M25.411 EFFUSION, RIGHT SHOULDER 11/16/2016 RADHIKA GARCIA Ot S46.811A STRAIN OF MUSC/FASC/TEND AT SHLDR/UP ARM 11/16/2016 RADHIKA GARCIA Ot X58.XXXA EXPOSURE TO OTHER SPECIFIED FACTORS, INI 11/16/2016 RADHIKA GARCIA Ot Y99.8 OTHER EXTERNAL CAUSE STATUS 11/16/2016 RADHIKA GARCIA Ot M19.011 PRIMARY OSTEOARTHRITIS, RIGHT SHOULDER 11/16/2016 RADHIKA GARCIA RAILROAD SUPERVISOR OF ENGINES Ot M25.411 EFFUSION, RIGHT SHOULDER 11/16/2016 RADHIKA GARCIA RAILROAD SUPERVISOR OF ENGINES Ot S46.811A STRAIN OF MUSC/FASC/TEND AT LDR/UP ARM 11/16/2016 RADHIKA GARCIA RAILROAD SUPERVISOR OF ENGINES Ot X58.XXXA EXPOSURE TO OTHER SPECIFIED FACTORS, INI 11/16/2016 RADHIKA GARCIA RAILROAD SUPERVISOR OF ENGINES Ot Y99.8 OTHER EXTERNAL CAUSE STATUS 12/06/2016 RADHIKA GARCIA RAILROAD SUPERVISOR OF ENGINES Ot M19.011 PRIMARY OSTEOARTHRITIS, RIGHT SHOULDER 12/06/2016 RADHIKA GARCIA RAILROAD SUPERVISOR OF ENGINES Ot M25.411 EFFUSION, RIGHT SHOULDER 12/06/2016 RADHIKA GARCIA RAILROAD SUPERVISOR OF ENGINES Ot S46.811A STRAIN OF MUSC/FASC/TEND AT LDR/ ARM 12/06/2016 RADHIKA GARCIA RAILROAD SUPERVISOR OF ENGINES Ot X58.XXXA EXPOSURE TO OTHER SPECIFIED FACTORS, INI 12/06/2016 RADHIKA GARCIA RAILROAD SUPERVISOR OF ENGINES Ot Y99.8 OTHER EXTERNAL CAUSE STATUS 12/07/2016 RADHIKA GARCIA RAILROAD SUPERVISOR OF ENGINES Ot M19.011 PRIMARY OSTEOARTHRITIS, RIGHT SHOULDER 12/07/2016 RADHIKA GARCIA RAILROAD SUPERVISOR OF ENGINES Ot M25.411 EFFUSION, RIGHT SHOULDER 12/07/2016 RADHIKA GARCIA RAILROAD SUPERVISOR OF ENGINES Ot S46.811A STRAIN OF MUSC/FASC/TEND AT LDR/ ARM 12/07/2016 RADHIKA GARCIA RAILROAD SUPERVISOR OF ENGINES Ot X58.XXXA EXPOSURE TO OTHER SPECIFIED FACTORS, INI 12/07/2016 RADHIKA GARCIA RAILROAD SUPERVISOR OF ENGINES Ot Y99.8 OTHER EXTERNAL CAUSE STATUS 01/05/2017 RADHIKA GARCIA RAILROAD SUPERVISOR OF ENGINES Ot M19.011 PRIMARY OSTEOARTHRITIS, RIGHT SHOULDER 01/05/2017 RADHIKA GARCIA RAILROAD SUPERVISOR OF ENGINES Ot M25.411 EFFUSION, RIGHT SHOULDER 01/05/2017 RADHIKA GARCIA RAILROAD SUPERVISOR OF ENGINES Ot S46.811A STRAIN OF MUSC/FASC/TEND AT LDR/ ARM 01/05/2017 RADHIKA GARCIA RAILROAD SUPERVISOR OF ENGINES Ot X58.XXXA EXPOSURE TO OTHER SPECIFIED FACTORS, INI 01/05/2017 RADHIKA GARCIA RAILROAD SUPERVISOR OF ENGINES Ot Y99.8 OTHER EXTERNAL CAUSE STATUS 01/17/2017 RADHIKA GARCIA RAILROAD SUPERVISOR OF ENGINES Ot M19.011 PRIMARY OSTEOARTHRITIS, RIGHT SHOULDER 01/17/2017 RADHIKA GARCIA Ot M25.411 EFFUSION, RIGHT SHOULDER 01/17/2017 RADHIKA GARCIA Ot S46.811A STRAIN OF MUSC/FASC/TEND AT SHLDR/UP ARM 01/17/2017 RADHIKA GARCIA Ot X58.XXXA EXPOSURE TO OTHER SPECIFIED FACTORS, INI 01/17/2017 RADHIKA GARCIA Ot Y99.8 OTHER EXTERNAL CAUSE STATUS 05/04/2017 AQUILINO MUKHERJEE Ot E11.9 TYPE 2 DIABETES MELLITUS WITHOUT COMPLIC 05/04/2017 AQUILINO MUKHERJEE Ot I10 ESSENTIAL (PRIMARY) HYPERTENSION 05/04/2017 AQUILINO MUKHERJEE Ot I25.10 ATHSCL HEART DISEASE OF [place] CORONARY 05/04/2017 AQUILINO MUKHERJEE Ot I65.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 05/16/2017 AQUILINO MUKHERJEE Ot E11.9 TYPE 2 DIABETES MELLITUS WITHOUT COMPLIC 05/16/2017 AQUILINO MUKHERJEE Ot I10 ESSENTIAL (PRIMARY) HYPERTENSION 05/16/2017 AQUILINO MUKHERJEE Ot I25.10 ATHSCL HEART DISEASE OF [place] CORONARY 05/16/2017 AQUILINO MUKHERJEE Ot I65.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 06/03/2017 RABIA SINGLETON DO Ot M47.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, CE 06/03/2017 RABIA SINGLETON DO Ot M48.02 SPINAL STENOSIS, CERVICAL REGION 06/03/2017 RABIA SINGLETON DO Ot M50.10 CERVICAL DISC DISORDER W RADICULOPATHY, 06/08/2017 AQUILINO MUKHERJEE Ot E11.9 TYPE 2 DIABETES MELLITUS WITHOUT COMPLIC 06/08/2017 AQUILINO MUKHERJEE Ot G47.33 OBSTRUCTIVE SLEEP APNEA (ADULT) (PEDIATR 06/08/2017 AQUILINO MUKHERJEE Ot I10 ESSENTIAL (PRIMARY) HYPERTENSION 06/08/2017 AQUILINO MUKHERJEE Ot I25.10 ATHSCL HEART DISEASE OF [place] CORONARY 06/08/2017 AQUILINO MUKHERJEE Ot I31.3 PERICARDIAL EFFUSION (NONINFLAMMATORY) 06/08/2017 AQUILINO MUKHERJEE Ot I34.0 NONRHEUMATIC MITRAL (VALVE) INSUFFICIENC 06/08/2017 AQUILINO MUKHERJEE Ot I65.29 OCCLUSION AND STENOSIS OF UNSPECIFIED CA 06/14/2017 AQUILINO MUKHERJEE Ot E11.9 TYPE 2 DIABETES MELLITUS WITHOUT COMPLIC 06/14/2017 AQUILINO MUKHERJEE Ot G47.33 OBSTRUCTIVE SLEEP APNEA (ADULT) (PEDIATR 06/14/2017 AQUILINO MUKHERJEE Ot I10 ESSENTIAL (PRIMARY) HYPERTENSION 06/14/2017 AQUILINO MUKHERJEE Ot I25.10 ATHSCL HEART DISEASE OF [place] CORONARY 06/15/2017 ARELI DO RABIA F Ot M47.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, CE 06/15/2017 ARELI DO RABIA F Ot M48.02 SPINAL STENOSIS, CERVICAL REGION 06/15/2017 ARELI DO, RABIA F Ot M50.10 CERVICAL DISC DISORDER W RADICULOPATHY, 06/15/2017 ARELI DO, RABIA F Ot M47.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, CE 06/15/2017 ARELI DO RABIA F Ot M48.02 SPINAL STENOSIS, CERVICAL REGION 06/15/2017 ARELI DO RABIA F Ot M50.10 CERVICAL DISC DISORDER W RADICULOPATHY, 06/17/2017 AQUILINO MUKHERJEE Ot E11.9 TYPE 2 DIABETES MELLITUS WITHOUT COMPLIC 06/17/2017 AQUILINO MUKHERJEE Ot G47.33 OBSTRUCTIVE SLEEP APNEA (ADULT) (PEDIATR 06/17/2017 AQUILINO MUKHERJEE Ot I10 ESSENTIAL (PRIMARY) HYPERTENSION 06/17/2017 AQUILINO MUKHERJEE Ot I25.10 ATHSCL HEART DISEASE OF [place] CORONARY 06/17/2017 AQUILINO MUKHERJEE Ot I31.3 PERICARDIAL EFFUSION (NONINFLAMMATORY) 06/17/2017 AQUILINO MUKHERJEE Ot I34.0 NONRHEUMATIC MITRAL (VALVE) INSUFFICIENC 06/17/2017 AQUILINO MUKHERJEE Ot I65.29 OCCLUSION AND STENOSIS OF UNSPECIFIED [place] 08/01/2017 AQUILINO MUKHERJEE Ot E11.9 TYPE 2 DIABETES MELLITUS WITHOUT COMPLIC 08/01/2017 AQUILINO MUKHERJEE Ot G47.33 OBSTRUCTIVE SLEEP APNEA (ADULT) (PEDIATR 08/01/2017 AQUILINO MUKHERJEE Ot I10 ESSENTIAL (PRIMARY) HYPERTENSION 08/01/2017 AQUILINO MUKHERJEE Ot I25.10 ATHSCL HEART DISEASE OF [place] CORONARY 08/01/2017 RABIA SINGLETON DO, Ot M47.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, CE 08/01/2017 RABIA SINGLETON DO, Ot M48.02 SPINAL STENOSIS, CERVICAL REGION 08/01/2017 RABIA SINGLETON DO, Ot M50.10 CERVICAL DISC DISORDER W RADICULOPATHY, Procedures Code Description Performed By Performed On 00.40 PROCEDURE ON SINGLE VESSEL 12/23/2010 00.45 INSERTION OF ONE VASCULAR STENT 12/23/2010 00.66 PERCUTANEOUS TRANSLUMINAL CORONARY ANGIO 12/23/2010 36.07 INSRT OF DRUG-ELUTING CORON ARTERY STENT 12/23/2010 37.22 LEFT HEART CARDIAC CATH 12/23/2010 88.53 LT HEART ANGIOCARDIOGRAM 12/23/2010 88.56 CORONAR ARTERIOGR-2 CATH 12/23/2010 37.22 LEFT HEART CARDIAC CATH 12/30/2010 88.53 LT HEART ANGIOCARDIOGRAM 12/30/2010 88.56 CORONAR ARTERIOGR-2 CATH 12/30/2010 38.91 ARTERIAL CATHETERIZATION 05/10/2011 88.56 CORONAR ARTERIOGR-2 CATH 05/10/2011 47541 A1C (IN-HOUSE) 02/01/2012 37764 ROUTINE VENIPUNCTURE 02/09/2012 88563 CMP 02/09/2012 58554 LIPID PANEL 02/09/2012 [id number] GFR CALC (RESULT ONLY) 02/09/2012 14488 MICRO ALBUMIN-IN HOUSE 05/23/2012 23475 A1C (IN-HOUSE) 05/23/2012 85178 MICROALBUMIN 05/23/2012 34553 XRAY CERVICAL SPINE, 2 OR 3 VIEWS 05/30/2012 53815 XRAY LUMBAR SPINE 2 OR 3 VIEWS 05/30/2012 96278 NAIL REMOVAL PERMANENT ( PARTIAL OR COMPLETE) 06/09/2012 09970 ROUTINE VENIPUNCTURE 07/19/2012 39031 CMP 07/19/2012 15950 LIPID PANEL 07/19/2012 [id number] GFR CALC (RESULT ONLY) 07/19/2012 13159 MICRO ALBUMIN-IN HOUSE 01/22/2013 87742 A1C (IN-HOUSE) 01/22/2013 70139 MICROALBUMIN 01/23/2013 81194 A1C (IN-HOUSE) 05/23/2013 63538 ROUTINE VENIPUNCTURE 05/28/2013 21331 TSH 05/28/2013 05746 CBC 05/28/2013 36216 CULTURE STOOL 05/28/2013 11546 STOOL FOR O & P 05/28/2013 19790 STOOL FOR POLYS & LEUKOCYTES 05/28/2013 Cardiolog Kacie Harrington 05/28/2013 81512 CBC 05/28/2013 82493 CMP 05/28/2013 15999 LIPID PANEL 05/28/2013 [id number] GFR CALC (RESULT ONLY) 05/28/2013 31746 OXIMETRY 06/01/2013 82749 OXIMETRY 06/07/2013 95768 NUCLEAR STRESS TESTING 07/20/2013 61134 LIPID PANEL 07/20/2013 53058 LIVER PANEL (LFT) 07/20/2013 49864 US CAROTID DOPPLER 07/20/2013 62084 MAMMOGRAM, SCREENING 09/19/2013 94219 A1C (IN-HOUSE) 09/19/2013 26977 MICRO ALBUMIN-IN HOUSE 09/19/2013 90791 HEMOCCULT 10/03/2013 48566 HEMOCCULT 10/03/2013 78516 BONE MINERAL DENSITY, HEEL US (IN HOUSE) 10/10/2013 94419 ROUTINE VENIPUNCTURE 02/05/2014 86382 XRAY HIP RIGHT UNILATERAL MIN 2 VIEWS 02/05/2014 65385 MICRO ALBUMIN-IN HOUSE 02/05/2014 19791 A1C (IN-HOUSE) 02/05/2014 [id number] GFR CALC (RESULT ONLY) 02/05/2014 70789 CMP 02/05/2014 38300 LIPID PANEL 02/05/2014 Radhika Do 02/18/2014 34147 A1C (IN-HOUSE) 06/20/2014 Results Test Result Range Capillary blood glucose measurement by glucometer (mass/volume) - 03/05/16 10: 21 Capillary blood glucose measurement by glucometer (mass/volume) 167 mg/dL 70-110 Sedimentation Rate-Westergren - 04/19/16 11:20 Sedimentation Rate-Westergren 28 mm/hr 0-40 CBC With Differential/Platelet - 04/19/16 11:20 WBC 6.3 x10E3/uL 3.4-10.8 RBC 4.04 x10E6/uL 3.77-5.28 Hemoglobin 12.2 g/dL 11.1-15.9 Hematocrit 36.8 % 34.0-46.6 MCV 91 fL 79-97 MCH 30.2 pg 26.6-33.0 MCHC 33.2 g/dL 31.5-35.7 RDW 13.6 % 12.3-15.4 Platelets 237 x10E3/uL 150-379 Neutrophils 70 % Lymphs 17 % Monocytes 8 % Eos 4 % Basos 1 % Neutrophils (Absolute) 4.5 x10E3/uL 1.4-7.0 Lymphs (Absolute) 1.1 x10E3/uL 0.7-3.1 Monocytes(Absolute) 0.5 x10E3/uL 0.1-0.9 Eos (Absolute) 0.2 x10E3/uL 0.0-0.4 Baso (Absolute) 0.0 x10E3/uL 0.0-0.2 Immature Granulocytes 0 % Immature Grans (Abs) 0.0 x10E3/uL 0.0-0.1 Comp. Metabolic Panel (14) - 04/19/16 11:20 Glucose, Serum 217 mg/dL 65-99 BUN 8 mg/dL 8-27 Creatinine, Serum 0.70 mg/dL 0.57-1.00 eGFR If NonAfricn Am 92 mL/min/1.73 >59 eGFR If Africn Am 106 mL/min/1.73 >59 BUN/Creatinine Ratio 11 11-26 Sodium, Serum 142 mmol/L 134-144 Potassium, Serum 4.1 mmol/L 3.5-5.2 Chloride, Serum 98 mmol/L 96-106 Carbon Dioxide, Total 25 mmol/L 18-29 Calcium, Serum 8.9 mg/dL 8.7-10.3 Protein, Total, Serum 6.8 g/dL 6.0-8.5 Albumin, Serum 4.2 g/dL 3.6-4.8 Globulin, Total 2.6 g/dL 1.5-4.5 A/G Ratio 1.6 1.1-2.5 Bilirubin, Total 0.3 mg/dL 0.0-1.2 Alkaline Phosphatase, S 53 IU/L 39-117 AST (SGOT) 30 IU/L 0-40 ALT (SGPT) 48 IU/L 0-32 Lipid Panel - 04/19/16 11:20 Cholesterol, Total 170 mg/dL 100-199 Triglycerides 219 mg/dL 0-149 HDL Cholesterol 48 mg/dL >39 VLDL Cholesterol Eduardo 44 mg/dL 5-40 LDL Cholesterol Calc 78 mg/dL 0-99 TSH - 04/19/16 11:20 TSH 1.610 uIU/mL 0.450-4.500 Vitamin D, 25-Hydroxy - 04/19/16 11:20 Vitamin D, 25-Hydroxy 11.0 ng/mL 30.0-100.0 C-Reactive Protein, Quant - 04/19/16 11:20 C-Reactive Protein, Quant 2.7 mg/L 0.0-4.9 Capillary blood glucose measurement by glucometer (mass/volume) - 04/20/16 21: 15 Capillary blood glucose measurement by glucometer (mass/volume) 328 mg/dL 70-110 Complete blood count (CBC) with automated white blood cell (WBC) differential - 04/20/16 21:15 Blood leukocytes automated count (number/volume) 5.7 10*3/uL 4.3-11.0 Blood erythrocytes automated count (number/volume) 4.18 10*6/uL 4.35-5.85 Venous blood hemoglobin measurement (mass/volume) 12.7 g/dL 11.5-16.0 Blood hematocrit (volume fraction) 39 % 35-52 Automated erythrocyte mean corpuscular volume 92 [foz_us] 80-99 Automated erythrocyte mean corpuscular hemoglobin (mass per erythrocyte) 30 pg 25-34 Automated erythrocyte mean corpuscular hemoglobin concentration measurement ( mass/volume) 33 g/dL 32-36 Automated erythrocyte distribution width ratio 12.7 % 10.0-14.5 Automated blood platelet count (count/volume) 196 10*3/uL 130-400 Automated blood platelet mean volume measurement 10.0 [foz_us] 7.4-10.4 Automated blood neutrophils/100 leukocytes 80 % 42-75 Automated blood lymphocytes/100 leukocytes 9 % 12-44 Blood monocytes/100 leukocytes 10 % 0-12 Automated blood eosinophils/100 leukocytes 0 % 0-10 Automated blood basophils/100 leukocytes 0 % 0-10 Blood neutrophils automated count (number/volume) 4.6 10*3 1.8-7.8 Blood lymphocytes automated count (number/volume) 0.5 10*3 1.0-4.0 Blood monocytes automated count (number/volume) 0.6 10*3 0.0-1.0 Automated eosinophil count 0.0 10*3/uL 0.0-0.3 Automated blood basophil count (count/volume) 0.0 10*3/uL 0.0-0.1 Influenza virus A and B antigen detection - 04/20/16 21:15 FLU RESULT NEGATIVE FOR INFLUENZA A AND B ANTIGENS BY IA NR PT panel in platelet poor plasma by coagulation assay - 04/20/16 21:15 Prothrombin time (PT) in platelet poor plasma by coagulation assay 12.7 s 12.2-14.7 INR in platelet poor plasma or blood by coagulation assay 1.0 0.8-1.4 Activated partial thromboplastin time (aPTT) in platelet poor plasma bycoagulation assay - 04/20/16 21:15 Activated partial thromboplastin time (aPTT) in platelet poor plasma bycoagulation assay 29 s 24-35 Blood lactic acid measurement (moles/volume) - 04/20/16 21:15 Blood lactic acid measurement (moles/volume) 1.4 mmol/L 0.5-2.0 Comprehensive metabolic panel - 04/20/16 21:15 Serum or plasma sodium measurement (moles/volume) 136 mmol/L 135-145 Serum or plasma potassium measurement (moles/volume) 3.6 mmol/L 3.6-5.0 Serum or plasma chloride measurement (moles/volume) 102 mmol/L 98-107 Carbon dioxide 17 mmol/L 21-32 Serum or plasma anion gap determination (moles/volume) 17 mmol/L 5-14 Serum or plasma urea nitrogen measurement (mass/volume) 9 mg/dL 7-18 Serum or plasma creatinine measurement (mass/volume) 0.87 mg/dL 0.60-1.30 Serum or plasma urea nitrogen/creatinine mass ratio 10 NRG Serum or plasma creatinine measurement with calculation of estimated glomerular filtration rate > NRG Serum or plasma glucose measurement (mass/volume) 346 mg/dL 70-105 Serum or plasma calcium measurement (mass/volume) 9.2 mg/dL 8.5-10.1 Serum or plasma total bilirubin measurement (mass/volume) 0.5 mg/dL 0.1-1.0 Serum or plasma alkaline phosphatase measurement (enzymatic activity/volume) 51 U/L 40-136 Serum or plasma aspartate aminotransferase measurement (enzymatic activity/ volume) 40 U/L 5-34 Serum or plasma alanine aminotransferase measurement (enzymatic activity/volume ) 55 U/L 0-55 Serum or plasma protein measurement (mass/volume) 7.6 g/dL 6.4-8.2 Serum or plasma albumin measurement (mass/volume) 4.2 g/dL 3.2-4.5 Magnesium - 04/20/16 21:15 Magnesium 1.7 mg/dL 1.8-2.4 Serum or plasma amylase measurement (enzymatic activity/volume) - 04/20/16 21: 15 Serum or plasma amylase measurement (enzymatic activity/volume) 25 U /L 25-125 Lipase - 04/20/16 21:15 Lipase 14 U/L 8-78 Bacterial blood culture - 04/20/16 21:15 Bacterial blood culture NG NRG Complete urinalysis with reflex to culture - 04/20/16 21:25 Urine color determination YELLOW NRG Urine clarity determination CLEAR NRG Urine pH measurement by test strip 5 5-9 Specific gravity of urine by test strip 1.020 1.016- 1.022 Urine protein assay by test strip, semi-quantitative 2+ NEGATIVE Urine glucose detection by automated test strip 4+ NEGATIVE Erythrocytes detection in urine sediment by light microscopy 2+ NEGATIVE Urine ketones detection by automated test strip 4+ NEGATIVE Urine nitrite detection by test strip NEGATIVE NEGATIVE Urine total bilirubin detection by test strip NEGATIVE NEGATIVE Urine urobilinogen measurement by automated test strip (mass/volume) NORMAL NORMAL Urine leukocyte esterase detection by dipstick NEGATIVE NEGATIVE Automated urine sediment erythrocyte count by microscopy (number/high power field) NONE NRG Automated urine sediment leukocyte count by microscopy (number/high power field ) NONE NRG Bacteria detection in urine sediment by light microscopy TRACE NRG Squamous epithelial cells detection in urine sediment by light microscopy RARE NRG Crystals detection in urine sediment by light microscopy NONE NRG Casts detection in urine sediment by light microscopy PRESENT NRG Mucus detection in urine sediment by light microscopy NEGATIVE NRG Complete urinalysis with reflex to culture NO NRG Hyaline casts detection in urine sediment by light microscopy 2-5 NRG Granular casts detection in urine sediment by light microscopy RARE NRG Bacterial blood culture - 04/20/16 22:27 Bacterial blood culture NG NRG Stool Culture - 04/26/16 14:41 Stool Culture Note C difficile Toxin Gene BUDDY - 04/26/16 14:41 C difficile Toxin Gene BUDDY Negative Negative Ova + Parasite Exam - 04/26/16 14:41 Ova + Parasite Exam Note White Blood Cells (WBC), Stool - 04/26/16 14:41 White Blood Cells (WBC), Stool Note Complete blood count (CBC) with automated white blood cell (WBC) differential - 05/07/16 18:08 Blood leukocytes automated count (number/volume) 12.3 10*3/uL 4.3-11.0 Blood erythrocytes automated count (number/volume) 4.21 10*6/uL 4.35-5.85 Venous blood hemoglobin measurement (mass/volume) 12.9 g/dL 11.5-16.0 Blood hematocrit (volume fraction) 39 % 35-52 Automated erythrocyte mean corpuscular volume 94 [foz_us] 80-99 Automated erythrocyte mean corpuscular hemoglobin (mass per erythrocyte) 31 pg 25-34 Automated erythrocyte mean corpuscular hemoglobin concentration measurement ( mass/volume) 33 g/dL 32-36 Automated erythrocyte distribution width ratio 12.4 % 10.0-14.5 Automated blood platelet count (count/volume) 287 10*3/uL 130-400 Automated blood platelet mean volume measurement 9.9 [foz_us] 7.4-10.4 Automated blood neutrophils/100 leukocytes 77 % 42-75 Automated blood lymphocytes/100 leukocytes 15 % 12-44 Blood monocytes/100 leukocytes 7 % 0-12 Automated blood eosinophils/100 leukocytes 2 % 0-10 Automated blood basophils/100 leukocytes 0 % 0-10 Blood neutrophils automated count (number/volume) 9.4 10*3 1.8-7.8 Blood lymphocytes automated count (number/volume) 1.8 10*3 1.0-4.0 Blood monocytes automated count (number/volume) 0.8 10*3 0.0-1.0 Automated eosinophil count 0.2 10*3/uL 0.0-0.3 Automated blood basophil count (count/volume) 0.0 10*3/uL 0.0-0.1 Comprehensive metabolic panel - 05/07/16 18:08 Serum or plasma sodium measurement (moles/volume) 136 mmol/L 135-145 Serum or plasma potassium measurement (moles/volume) 4.6 mmol/L 3.6-5.0 Serum or plasma chloride measurement (moles/volume) 102 mmol/L 98-107 Carbon dioxide 20 mmol/L 21-32 Serum or plasma anion gap determination (moles/volume) 14 mmol/L 5-14 Serum or plasma urea nitrogen measurement (mass/volume) 10 mg/dL 7-18 Serum or plasma creatinine measurement (mass/volume) 0.87 mg/dL 0.60-1.30 Serum or plasma urea nitrogen/creatinine mass ratio 11 NRG Serum or plasma creatinine measurement with calculation of estimated glomerular filtration rate > NRG Serum or plasma glucose measurement (mass/volume) 258 mg/dL 70-105 Serum or plasma calcium measurement (mass/volume) 9.7 mg/dL 8.5-10.1 Serum or plasma total bilirubin measurement (mass/volume) 0.4 mg/dL 0.1-1.0 Serum or plasma alkaline phosphatase measurement (enzymatic activity/volume) 63 U/L 40-136 Serum or plasma aspartate aminotransferase measurement (enzymatic activity/ volume) 48 U/L 5-34 Serum or plasma alanine aminotransferase measurement (enzymatic activity/volume ) 108 U/L 0-55 Serum or plasma protein measurement (mass/volume) 7.3 g/dL 6.4-8.2 Serum or plasma albumin measurement (mass/volume) 4.0 g/dL 3.2-4.5 Lipase - 05/07/16 18:08 Lipase 17 U/L 8-78 Complete urinalysis with reflex to culture - 05/07/16 19:59 Urine color determination YELLOW NRG Urine clarity determination CLEAR NRG Urine pH measurement by test strip 5 5-9 Specific gravity of urine by test strip 1.015 1.016- 1.022 Urine protein assay by test strip, semi-quantitative 2+ NEGATIVE Urine glucose detection by automated test strip 3+ NEGATIVE Erythrocytes detection in urine sediment by light microscopy NEGATIVE NEGATIVE Urine ketones detection by automated test strip NEGATIVE NEGATIVE Urine nitrite detection by test strip NEGATIVE NEGATIVE Urine total bilirubin detection by test strip NEGATIVE NEGATIVE Urine urobilinogen measurement by automated test strip (mass/volume) NORMAL NORMAL Urine leukocyte esterase detection by dipstick 1+ NEGATIVE Automated urine sediment erythrocyte count by microscopy (number/high power field) NONE NRG Automated urine sediment leukocyte count by microscopy (number/high power field ) [HPF] NRG Bacteria detection in urine sediment by light microscopy NONE NRG Squamous epithelial cells detection in urine sediment by light microscopy 0-2 NRG Crystals detection in urine sediment by light microscopy NONE NRG Casts detection in urine sediment by light microscopy NONE NRG Mucus detection in urine sediment by light microscopy NEGATIVE NRG Complete urinalysis with reflex to culture NO NRG Liver function panel (serum or plasma alk phos, alb, total and direct bili, total protein, ALT, AST) - 05/03/17 11:31 Serum or plasma total bilirubin measurement (mass/volume) 0.3 mg/dL 0.1-1.0 Serum or plasma alkaline phosphatase measurement (enzymatic activity/volume) 65 U/L 40-136 Serum or plasma aspartate aminotransferase measurement (enzymatic activity/ volume) 24 U/L 5-34 Serum or plasma alanine aminotransferase measurement (enzymatic activity/volume ) 39 U/L 0-55 Serum or plasma protein measurement (mass/volume) 7.2 g/dL 6.4-8.2 Serum or plasma albumin measurement (mass/volume) 4.1 g/dL 3.2-4.5 Bilirubin direct 0.1 mg/dL 0.0-0.3 Serum or plasma indirect bilirubin measurement (mass/volume) 0.2 mg/ dL [facility] Lipid 1996 panel - 05/03/17 11:31 Serum or plasma triglyceride measurement (mass/volume) 368 mg/dL <150 Serum or plasma cholesterol measurement (mass/volume) 231 mg/dL < 200 Serum or plasma cholesterol in HDL measurement (mass/volume) 41 mg/ dL 40-60 Cholesterol in LDL [mass/volume] in serum or plasma by direct assay 119 mg/dL 1-129 Serum or plasma cholesterol in VLDL measurement (mass/volume) 74 mg/ dL 5-40 Encounters ACCT No. Visit Date/Time Discharge Status Pt. Type Provider Facility Loc./Unit Complaint [id number] 06/20/2014 14:05:00 06/20/2014 23:59:59 CLS Outpatient RADHIKA GARCIA APRN [id number] 04/12/2014 14:06:00 04/12/2014 23:59:59 CLS Outpatient SABAS KIM DDSIE Luiza [id number] 03/21/2014 13:33:00 03/21/2014 23:59:59 CLS Outpatient RADHIKA GARCIA APRN Luiza [id number] 02/05/2014 08:35:00 02/05/2014 23:59:59 CLS Outpatient YULY AMOR JYOTSNA Sinclair [id number] 01/14/2014 13:47:00 01/14/2014 23:59:59 CLS Outpatient TAN DDSJOVANA [id number] 12/27/2013 09:53:00 12/27/2013 23:59:59 CLS Outpatient TAN DDSJOVANA [id number] 12/18/2013 12:03:00 12/18/2013 23:59:59 CLS Outpatient TAN DDS, JOVANA [id number] 12/13/2013 18:33:00 12/13/2013 23:59:59 CLS Outpatient COSME RICO DO [id number] 10/10/2013 12:20:00 10/10/2013 23:59:59 CLS Outpatient SHERON KEATING APRNYOVANI Ulloa [id number] 10/03/2013 12:19:00 10/03/2013 23:59:59 CLS Outpatient COSME RICO DO Brit [id number] 09/26/2013 13:24:00 09/26/2013 23:59:59 CLS Outpatient SHERON KEATING APRNYOVANI Ulloa [id number] 09/19/2013 09:02:00 09/19/2013 23:59:59 CLS Outpatient JYOTSNA EMERY APRN [id number] 09/19/2013 09:02:00 09/19/2013 23:59:59 CLS Outpatient JYOTSNA EMERY APRN [id number] 07/20/2013 09:59:00 07/20/2013 23:59:59 CLS Outpatient RICO DOCOSME [id number] 06/07/2013 12:22:00 06/07/2013 23:59:59 CLS Outpatient JYOTSNA EMERY APRN [id number] 06/01/2013 13:30:00 06/01/2013 23:59:59 CLS Outpatient RADHA AMOR DOMINIQUE Tanner [id number] 05/28/2013 12:00:00 05/28/2013 23:59:59 CLS Outpatient JYOTSNA EMERY APRN [id number] 05/23/2013 13:14:00 05/23/2013 23:59:59 CLS Outpatient JYOTSNA EMERY APRN S [id number] 04/25/2013 14:12:00 04/25/2013 23:59:59 CLS Outpatient JYOTSNA EMERY APRN S [id number] 01/22/2013 11:01:00 01/22/2013 23:59:59 CLS Outpatient COSME RICO DO [id number] 12/27/2012 11:54:00 12/27/2012 23:59:59 CLS Outpatient WHITE DDJEREMY Sinclair [id number] 12/04/2012 11:58:00 12/04/2012 23:59:59 CLS Outpatient WHITE DDSJEREMY [id number] 06/07/2012 15:12:00 06/07/2012 23:59:59 CLS Outpatient JYOTSNA EMERY APRN [id number] 05/23/2012 13:45:00 05/23/2012 23:59:59 CLS Outpatient JYOTSNA EMERY APRN [id number] 02/09/2012 08:05:00 02/09/2012 23:59:59 CLS Outpatient JYOTSNA EMERY APRN [id number] 02/01/2012 13:00:00 02/01/2012 23:59:59 CLS Outpatient JYOTSNA EMERY APRN S [id number] 11/08/2012 13:58:00 Document Registration [id number] 07/19/2012 15:00:00 Document Registration [id number] 06/13/2017 07:53:00 06/13/2017 23:59:59 CLS Outpatient EZEQUIELAQUILINO LAWTON [facility] CARD I25.10 CAD [id number] 06/07/2017 13:38:00 06/07/2017 23:59:59 CLS Outpatient AQUILINO MUKHERJEE [facility] CARD I25.10 CAD [id number] 06/02/2017 09:18:00 06/02/2017 23:59:59 CLS Outpatient RABIA SINGLETON DO [facility] RAD RIGHT SIDE RADICULOPATHY [id number] 05/03/2017 11:14:00 05/03/2017 23:59:59 CLS Outpatient AQUILINO MUKHERJEE [facility] LAB I25.10, I65.23, E11.9, I10 [id number] 11/12/2016 10:50:00 11/12/2016 23:59:59 CLS Outpatient RADHIKA GARCIA [facility] RAD ROTATOR CUFF SYNDROME M75.101 [id number] 10/15/2016 11:55:00 10/15/2016 23:59:59 CLS Outpatient AQUILINO MUKHERJEE [facility] LAB I25.10 E78.2 [id number] 05/08/2016 13:31:00 05/08/2016 15:56:00 DIS Emergency BRIGITTE WOLF APRN [facility] ER BOWEL IMPACTION [id number] 05/07/2016 16:50:00 05/07/2016 20:47:00 DIS Emergency NAMITA ANDRADE [facility] ER LOWER R QUAD PAIN [id number] 04/21/2016 08:45:00 04/21/2016 23:59:59 CLS Preadmit GERARD BORJAS DO [facility] RAD ABD PAIN [id number] 04/20/2016 20:24:00 04/21/2016 00:20:00 DIS Emergency KATHY LAST DO [facility] ER HEADACHE,NAUSEA,VOMITING [id number] 03/05/2016 09:44:00 03/05/2016 11:12:00 DIS Outpatient JOVANA BANDA MD [facility] CARD SACROCOCCYGEAL DISORDER [id number] 01/12/2016 19:55:00 01/13/2016 06:20:00 DIS Outpatient JYOTSNA EMERY [facility] SLEEP SNORING, OBSTRUCTIVE SLEEP APNEA [id number] 08/27/2015 11:24:00 08/27/2015 23:59:59 CLS Outpatient AQUILINO MUKHERJEE [facility] CARD CAD,DANIEL,HLP, MR [id number] 08/26/2015 10:31:00 08/26/2015 23:59:59 CLS Outpatient AQUILINO MUKHERJEE [facility] CARD CAD,DANIEL,HLP, MR [id number] 03/18/2015 09:03:00 03/18/2015 23:59:59 CLS Outpatient IVELISSE GAVIN MD [facility] CARD GASTROPARESIS [id number] 03/17/2015 14:11:00 03/17/2015 17:25:00 DIS [facility] [id number] 03/12/2015 05:34:00 03/12/2015 23:59:59 CLS Outpatient IVELISSE GAVIN MD [facility] PREOP SCREENING; FAMILY HX [id number] 03/10/2015 08:41:00 03/10/2015 11:40:00 DIS Out[facility] D[facility];BENJIE [id number] 03/05/2015 05:57:00 03/05/2015 23:59:59 CLS Outpatient IVELISSE GAVIN MD [facility] PREOP DYSPHAGIA;BENJIE [id number] 11/05/2014 11:20:00 11/05/2014 23:59:59 CLS Outpatient AQUILINO MUKHERJEE [facility] LAB CAD,CAROTID ARTERY TENOSIS,HTN [id number] 09/22/2014 02:18:00 09/22/2014 04:14:00 DIS Emergency KATHY LAST DO [facility] ER VOMITING,DIARRHEA [id number] 10/11/2013 01:15:00 10/11/2013 20:15:00 DIS Outpatient KACIE HARRINGTON MD [facility] CATH CHEST PAIN [id number] 10/03/2013 11:37:00 10/03/2013 23:59:59 CLS Outpatient YARELIS KEATING APRN [facility] RAD SCREENING [id number] 08/01/2013 08:12:00 08/01/2013 23:59:59 CLS Outpatient AQUILINO MUKHERJEE [facility] CARD CAD,HTN,HLP, CAROTID BRUIT [id number] 07/26/2013 09:37:00 07/26/2013 23:59:59 CLS Outpatient AQUILINO MUKHERJEE [facility] RAD CAROTID BRUIT [id number] 04/19/2013 17:07:00 04/19/2013 18:35:00 DIS Emergency FABY PULIDO MD [facility] ER MULTIPLE COMPLAINTS [id number] 12/13/2012 09:39:00 12/13/2012 23:59:59 CLS Outpatient DAMARIS LUTHER FACC, ALI FACP CCDS [facility] LAB HYPERLIPADEMIA [id number] 12/04/2012 15:59:00 12/04/2012 23:59:59 CLS Outpatient DAMARIS LUTHER FACGino, ALI FACP CCDS [facility] CARD CAD [id number] 09/15/2012 08:32:00 09/15/2012 21:20:00 DIS Outpatient DAMARIS LUTHER FACGino, ALI FACP CCDS [facility] CATH CAD, HYPERLIPIDEMIA,SOB,FATIGUE,ABN STRESS TEST [id number] 09/08/2012 07:09:00 09/08/2012 23:59:59 CLS Outpatient DARLINE TRAYLOR [facility] RAD SOB [id number] 09/06/2012 08:12:00 09/06/2012 23:59:59 CLS Outpatient DARLINE TRAYLOR [facility] RT SOB [id number] 12/04/2017 09:42:00 ACT Emergency DAI BISHOP MD [facility] ER FALL/HEAD LAC [id number] 09/22/2014 04:21:00 Document Registration [id number] 09/22/2014 04:21:00 Document Registration [id number] 09/22/2014 04:21:00 Document Registration [id number] 09/22/2014 04:21:00 Document Registration [id number] 09/22/2014 04:21:00 Document Registration [id number] 09/22/2014 04:21:00 Document Registration [id number] 01/24/2012 12:24:00 Document Registration [id number] 12/23/2011 20:11:00 Document Registration [id number] 11/22/2011 07:36:00 Document Registration [id number] 08/17/2011 00:45:00 Document Registration [id number] 05/25/2011 12:27:00 Document Registration [id number] 03/22/2011 06:53:00 Document Registration [id number] 02/12/2011 12:00:00 Document Registration [id number] 01/17/2011 12:05:00 Document Registration [id number] 12/29/2010 15:40:00 Document Registration [id number] 12/23/2010 00:35:00 Document Registration [id number] 11/06/2014 05:02:05 ACT Document Registration [id number] 04/20/2016 10:09:00 Document Registration [id number] 04/30/2016 11:08:00 Document Registration [id number] 06/15/2017 09:00:00 06/15/2017 23:59:59 [facility] Outpatient JYOTSNA EMERY APRN [facility] [id number] 04/20/2016 11:07:00 Document Registration
--- NOTE | 2017-12-04 10:46 | Diagnostic Imaging Report ---
PROCEDURE: CT head and CT cervical spine without contrast. TECHNIQUE: Multiple contiguous axial images were obtained through the brain and cervical spine without the use of intravenous contrast. Sagittal and coronal reformations through the cervical spine were then performed. INDICATION: Fall. Scalp laceration The ventricles are normal in size, shape and position. There is no acute parenchymal hemorrhage, edema or mass. There is no extra-axial mass or hemorrhage. There is scalp laceration in the left parietal region over the convexity. No skull fracture or other acute bony abnormality is seen. There is normal height and alignment of the cervical vertebral bodies. There are changes of prior ACDF at the C4-5 and C5-6 levels. No fracture or other acute abnormality is seen. IMPRESSION: CT the head shows no acute intracranial abnormality. CT of the cervical spine shows no acute abnormality. Dictated by: Dictated on workstation # [id number]
--- NOTE | 2017-12-04 10:51 | Diagnostic Imaging Report ---
INDICATION: Fall, right shoulder pain. Three views of the right shoulder shows no fracture, dislocation or other acute bony abnormality. There are mild degenerative changes at the glenohumeral joint. There is some soft tissue calcification which may be secondary to calcific tendinosis. IMPRESSION: No acute abnormality is seen. Dictated by: Dictated on workstation # [id number]
[2017-12-04 11:20] VITALS: BP 126/79
== END 2017-12-04 11:20 | disposition home or self-care (01) ==
LOC: EDUNIT# 09:41 → ER 09:42
DX: S09.90XA Unspecified injury of head, initial encounter (principal); S01.01XA Laceration without foreign body of scalp, initial encounter; M25.511 Pain in right shoulder; G47.30 Sleep apnea, unspecified; J44.9 Chronic obstructive pulmonary disease, unspecified; I25.2 Old myocardial infarction; E78.00 Pure hypercholesterolemia, unspecified; I10 Essential (primary) hypertension; G43.909 Migraine, unspecified, not intractable, without status migrainosus; E11.42 Type 2 diabetes mellitus with diabetic polyneuropathy; K21.9 Gastro-esophageal reflux disease without esophagitis; I25.10 Atherosclerotic heart disease of native coronary artery without angina pectoris; F41.9 Anxiety disorder, unspecified; F32.9 Major depressive disorder, single episode, unspecified; Z79.4 Long term (current) use of insulin; Z87.19 Personal history of other diseases of the digestive system; Z80.0 Family history of malignant neoplasm of digestive organs; Z82.49 Family history of ischemic heart disease and other diseases of the circulatory system; Z90.710 Acquired absence of both cervix and uterus; Z90.89 Acquired absence of other organs; Z95.5 Presence of coronary angioplasty implant and graft; Z88.6 Allergy status to analgesic agent; Z88.5 Allergy status to narcotic agent; W18.30XA Fall on same level, unspecified, initial encounter
CPT/HCPCS: 70450; 72125; 73030

== ENCOUNTER 2017-12-14 12:24 | Emergency (ER) | payer MEDICARE ==
[~2017-12-14] VITALS: Ht 170.2 cm; Wt 79.4 kg
--- OUTSIDE RECORDS SUMMARY | 2017-12-14 12:37 | XMS REPORT ---
Author Author JYOTSNA EMERY [facility] Address [address] [place] [address] Care Team Providers Care State Epidemiologist Name Role Phone JYOTSNA EMERY Unavailable PROBLEMS Type Condition ICD9-CM Code KWD98-PQ Code Onset Dates Condition Status SNOMED Code Problem Diabetes E11.9 Active 992043835 Problem retirement current use of insulin Z79.4 Active 314604815 Problem Type 2 diabetes mellitus with hyperglycemia E11.65 Active 50700280 Problem Neuropathy G62.9 Active 403214314 Problem Herniation of intervertebral disc at C5-C6 level M50.222 Active 010998010 Problem Diabetic polyneuropathy associated with diabetes mellitus due to underlying condition E08.42 Active 85588693 Problem Irritable bowel syndrome, unspecified type K58.9 Active 08064015 Problem Slow transit constipation K59.01 Active 70713144 Problem Rotator cuff syndrome of right shoulder M75.101 Active [id number] Problem Constipation, unspecified constipation type K59.00 Active 79748273 Problem Barretts esophagus without dysplasia K22.70 Active 695554597 Problem BRITTANI (generalized anxiety disorder) F41.1 Active 78154116 Problem Gastroparesis K31.84 Active 135987718 Problem 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 Nov, Active 8693338 Problem Gastro-esophageal reflux disease without esophagitis K21.9 Active 143793098 Problem Type 2 diabetes mellitus with diabetic autonomic (poly)neuropathy E11.43 Active 630306833 Problem Panic disorder with agoraphobia F40.01 Active 68418711 Problem Obstructive sleep apnea syndrome G47.33 Active 15277070 Problem Bipolar disorder, current episode depressed, moderate F31.32 Active 891221856 Problem Essential hypertension I10 Active 93998782 ALLERGIES Substance Reaction Event Type Date Status Codeine Sulfate hives Drug Allergy Oct, Active Advil rash Drug Allergy Oct, Active All nsaids Unknown Non Drug Allergy Oct, Active ENCOUNTERS Encounter Location Date Diagnosis [facility] [id number] [place] [address] 54988- 0861 Oct, Type 2 diabetes mellitus with hyperglycemia E11.65 ; Neuropathy G62.9 ; History of fusion of cervical spine Z98.1 and Obstructive sleep apnea syndrome G47.33 [facility] [id number] [place] [address] 31153- 2883 Oct, [facility] [id number] [place] [address] 99237- 8263 Sep, Type 2 diabetes mellitus with hyperglycemia E11.65 [facility] [address] 78711- 2815 July, [facility] [id number] [place] [address] 50860- 9390 Jun, Type 2 diabetes mellitus with diabetic autonomic (poly) neuropathy E11.43 and Type 2 diabetes mellitus with hyperglycemia E11.65 [facility] [id number] [place] [address] 96336- 4502 May, [facility] [id number] [place] [address] 61070- 8988 May, Bipolar disorder, current episode depressed, moderate F31.32 [facility] [id number] [place] [address] 73296 -7449 May, [facility] [id number] [place] [address] 84795- 4380 May, Diabetic polyneuropathy associated with diabetes mellitus due to underlying condition E08.42 [facility] [id number] [place] [address] 27122- 0990 Apr, [facility] [id number] [place] [address] 16869- 2910 Feb, Ganglion cyst of dorsum of right wrist M67.431 [facility] [id number] [place] [address] 37385- 3542 Jan, Other cyst of bone, right forearm M85.631 [facility] [id number] [place] [address] 78293- 6816 Jan, [facility] [id number] [place] [address] 55193- 5896 Jan, Diabetes E11.9 and Right forearm pain M79.631 [facility] [id number] [place] [address] 57584- 4340 Dec, Encounter for immunization Z23 [facility] [id number] [place] [address] 93348- 8023 Nov, [facility] [id number] [place] [address] 84581- 2588 Nov, Type 2 diabetes mellitus with hyperglycemia E11.65 [facility] [id number] [place] [address] 02298- 6630 Nov, Severe pain of right shoulder M25.511 [facility] [id number] [place] [address] 23042- 8346 Oct, Diabetes E11.9 [facility] [id number] [place] [address] 85871 2540 Oct, Diabetes E11.9 [facility] [id number] [place] [address] 20799- 2230 Oct, [facility] [id number] [place] [address] 49119- 2149 Oct, [facility] [id number] [place] [address] 73088- 3804 Oct, Rotator cuff syndrome of right shoulder M75.101 [facility] [id number] [place] [address] 13664- 2542 Oct, Diabetes E11.9 [facility] [id number] [place] [address] 51426- 5667 Sep, Type 2 diabetes mellitus with hyperglycemia E11.65 ; Obstructive sleep apnea syndrome G47.33 and Constipation, unspecified constipation type K59.00 [facility] [id number] [place] [address] 16401- 3190 Aug, [facility] [address] 74818- 7819 Aug, [facility] [id number] [place] [address] 05391- 4458 Aug, Type 2 diabetes mellitus with diabetic autonomic (poly) neuropathy E11.43 [facility] [address] 72820- 4802 July, Type 2 diabetes mellitus with hyperglycemia E11.65 [facility] [address] 16869- 3635 Jun, Slow transit constipation K59.01 [facility] [address] 68150- 1807 May, [facility] [address] 96571- 8084 May, Diabetes E11.9 [facility] [address] 95705- 0845 May, [facility] [id number] [place] [address] 61470 -4003 Apr, [facility] [id number] [place] [address] 31940- 4410 Apr, Gastroenteritis K52.9 [facility] [id number] [place] [address] 82034 -6493 Apr, Abdominal pain, unspecified location R10.9 ; Gastroenteritis K52.9 ; Type 2 diabetes mellitus with hyperglycemia E11.65 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 [facility] [id number] [place] [address] 08360- 9071 Apr, [facility] [address] 22632- 7845 Apr, [facility] [address] 33218- 4146 Apr, Diabetes E11.9 ; Gastroparesis K31.84 ; Generalized abdominal pain R10.84 ; Essential hypertension I10 ; Bronchitis J40 and Other fatigue R53.83 [facility] [address] [place] [address] 50411 -9656 Mar, [facility] [address] 55777 -0575 Mar, [facility] [address] 37101 -6070 Mar, Laceration of scalp without foreign body, initial encounter S01.01XA ; Laceration of face, initial encounter S01.81XA and Encounter for immunization Z23 [address] 31522- 2954 Mar, Type 2 diabetes mellitus with diabetic autonomic (poly) neuropathy E11.[address] 60976- 0773 Feb, [address] 58841- 5988 Feb, Internal hemorrhoids K64.8 and Obstructive sleep apnea syndrome G47.[address] 66549- 9665 Feb, SI (sacroiliac) joint dysfunction M53.3 [facility] [address] 19337- 5859 Jan, [address] 17413- 3843 Dec, Gastroparesis K31.84 [facility] [place] [id number] [place] [address] 79634- 0416 Dec, [address] [place] [address] 01624- 0375 Dec, Right hip pain M25.551 ; Nose congested R09.81 and Encounter for immunization Z23 [facility] [facility] [address] 88279- 3991 Nov, Diabetes E11.9 ; Gastroparesis K31.84 ; Type 2 diabetes mellitus with diabetic autonomic (poly)neuropathy E11.43 and Obstructive sleep apnea syndrome G47.33 [facility] [place] [address] 48924- 8108 Oct, [facility] [address] 49613- 7265 Aug, [facility] [address] 55839- 3726 July, Gastro-esophageal reflux disease without esophagitis K21.[address] 31615- 0107 July, [facility] [address] 72524- 4660 July, Diabetes E11.9 [facility] [address] 34444- 1243 July, Diabetes E11.9 ; Obstructive sleep apnea syndrome G47.33 and Neuropathy G62.9 [place] [id number] [place] [address] 77649- 0207 July, Bipolar disorder, current episode depressed, moderate F31.32 ; BRITTANI (generalized anxiety disorder) F41.1 and Panic disorder with agoraphobia F40.01 [facility] [address] 47047- 1264 Jun, [address] 77462- 7720 Jun, [facility] [address] 13727- 1302 Jun, [facility] [address] [place] [address] 56569- 6483 Jun, [facility] [id number] [place] [address] [id number] May, Encounter for dental examination and cleaning without abnormal findings Z01.20 [facility] [id number] [place] [address] 46250- 0542 26 Apr, 2015 [facility] [address] 538686- 8206 Apr, [place] [id number] [place] [address] 347026- 6216 Apr, Bipolar disorder, current episode depressed, moderate F31.32 ; BRITTANI (generalized anxiety disorder) F41.1 and Panic disorder with agoraphobia F40.01 [place] [id number] [place] [address] 50709- 2889 04 Apr, 2015 Hyperlipidemia, unspecified E78.5 [facility] [id number] [place] [address] [id number] Apr, Dental caries K02.9 [facility] [id number] [place] [address] [id number] Feb, Dental caries K02.9 and Encounter for dental examination Z01.20 [facility] [place] [address] [place] [address] 29852- 0785 Feb, [facility] [id number] [place] [address] [id number]- 0769 15 Feb, 2015 Diabetes E11.9 ; Insulin long-term use Z79.4 ; Diabetic polyneuropathy associated with diabetes mellitus due to underlying condition E08.42 and Barretts esophagus with high grade dysplasia K22.711 [facility] [id number] [place] [address] 41834- 5077 14 Feb, 2015 [place] [id number] [place] [address] 60939- 5705 Jan, Pain in right hip M25.551 and Other chronic pain G89.29 [facility] [id number] [place] [address] 26448- 5165 Jan, Impingement syndrome, shoulder, left M75.42 [facility] [id number] [place] [address] 35078- 6250 Jan, Bipolar disorder, current episode depressed, moderate F31.32 ; Generalized anxiety disorder F41.1 and Agoraphobia with panic disorder F40.01 [facility] [id number] [place] [address] 15403- 2115 Jan, [facility] [id number] [place] [address] 45893- 3244 Dec, [facility] [id number] [place] [address] 22181- 2154 Dec, [facility] [id number] [place] [address] 57528- 5798 Dec, Right hip pain M25.551 and Left shoulder pain M25.512 [facility] [id number] [place] [address] 30336- 6223 Dec, Bipolar 1 disorder, depressed, moderate F31.32 ; BRITTANI ( generalized anxiety disorder) F41.1 and Panic disorder with agoraphobia F40.01 [facility] [id number] [place] [address] 71034- 5826 Dec, [facility] [id number] [place] [address] 14432- 0921 Dec, [facility] [id number] [place] [address] 75353- 1577 28 Nov, 2014 [facility] [id number] [place] [address] 70383- 3192 18 Nov, 2014 [facility] [id number] [place] [address] 84663- 5741 Nov, [facility] [address] [address]- 3886 Nov, Diabetes 250.00 [facility] [address] [address]- 7329 Oct, [facility] [address] [address]- 2753 Oct, [facility] [id number] [place] [address] 46136- 5557 Oct, [facility] [address] [address]- 2190 Oct, [facility] [address] [place] [address] 89854- 6888 Oct, [facility] [address] [address]- 4593 Oct, [facility] [address] [address]- 8597 Oct, Diabetes 250.00 ; Insomnia 780.52 and Forgetfulness 780.99 [facility] [address] [address]- 3756 Oct, Depressive disorder, not elsewhere classified 311 [facility] [address], [place] [address]- 1634 Sep, [facility] [address], [place] [address]- 2264 Sep, [facility] [address] [place] [address]- 9335 Sep, [facility] [address] [address]- 6471 Sep, [facility] [address] [address]- 1565 Sep, [facility] [address] [address]- 3290 Sep, [facility] [place] [facility] [address] [id number] [place] [address]- 9273 Sep, [facility] [place] [facility] [address] [id number] [place] [address]- 0279 Aug, [facility] [address] [id number] [place] [id number] Aug, Dental examination V72.2 [facility] [place] [facility] [address] [id number] [place] [address]- 4521 Aug, [facility] [place] [facility] [address] [id number] [place] [address]- 3789 Aug, [facility] [place] [facility] [address] [id number] [place] [address]- 7925 July, [facility] [place] [facility] [address] [id number] [place] [address]- 0340 July, [facility] [place] [facility] [address] [id number] [place] [address]- 2113 July, [facility] [place] [facility] [address] [id number] [place] [address]- 7532 July, [facility] [place] [facility] [address] [id number] [place] [address]- 9871 Jun, [facility] [place] [facility] [address] [id number] [place] [address]- 4422 Jun, [facility] [place] [facility] [address] [id number], [place] [address]- 4040 May, [facility] [place] [facility] [address] [id number] [place] 4984 May, [facility] [place] [facility] [address] [id number] [place] 6477 May, [facility] [place] [facility] [address] [id number] [place] 1477 May, [facility] [place] [facility] [address] [id number] [place] [address]- 9251 17 May, 2014 [facility] [place] [facility] [address] [id number] [place] [address]- 5710 May, [facility] [place] [facility] [address] [id number] [place] [address]- 7800 May, [facility] [place] [facility] [address] [id number] [place] [address]- 6265 May, [facility] [place] [facility] [address] [id number] [place] [address]- 7449 Apr, [facility] [place] [facility] [address] [id number] [place] [address]- 4468 Apr, [facility] [place] [facility] [address] [id number] [place] [address]- 5940 Apr, [facility] [place] [facility] [address] [id number] [place] [address]- 7375 Apr, [facility] [place] [facility] [address] [id number] [place] [address]- 4974 Apr, [facility] [place] [facility] [address] [id number] [place] [address]- 0695 Apr, [facility] [place] [facility] [address] [id number] [place] [address]- 6410 Mar, [facility] [place] [facility] [address] [id number] [place] [address]- 7462 Mar, [facility] [place] [facility] [address] [id number] [place] [address]- 8918 Mar, [facility] [place] [facility] [address] [id number] [place] [address]- 0059 Mar, [facility] [place] [facility] [address] [id number] [place] [address]- 0606 Mar, [facility] [place] [facility] [address] [id number] [place] [address]- 8168 Mar, [facility] [place] [facility] [address] [id number] [place] [address]- 7038 Mar, [facility] [place] [facility] [address] [id number] [place] [address]- 4865 Mar, [facility] [place] [facility] [address] [id number] [place] [address]- 5472 Mar, [facility] [place] [facility] [address] [id number] [place] [address]- 7299 Mar, [facility] [place] [facility] [address] [id number] [place] [address]- 7171 Mar, [facility] [place] [facility] [address] [id number] [place] [address]- 7576 Mar, [facility] [place] [facility] [address] [id number] [place] [address]- 6136 Mar, [facility] [place] [facility] [address] [id number] [place] [address]- 9811 Mar, [facility] [place] [facility] [address] [id number] [place] [address]- 7339 Feb, [facility] [place] [facility] [address] [id number] [place] [address]- 7224 Feb, [facility] [place] [facility] [address] [id number] [place] [address]- 8304 Feb, [facility] [place] [facility] [address] [id number] [place] [address]- 5348 Feb, [facility] [place] [facility] [address] [id number] [place] [address]- 7437 Feb, [facility] [place] [facility] [address] [id number] [place] [address]- 4506 Feb, [facility] [place] [facility] [address] [id number] [place] [address]- 0175 16 Feb, 2014 [facility] [place] [facility] [address] [id number] [place] [address]- 3702 16 Feb, 2014 [facility] [place] [facility] [address] [id number] [place] 9383 Feb, [facility] [place] [facility] [address] [id number] [place] 7381 Feb, [facility] [place] [facility] [address] [id number] [place] 0420 Feb, [facility] [place] [facility] [address] [id number] [place] [address]- 3810 Feb, [facility] [place] [facility] [address] [id number] [place] 1783 Feb, [facility] [place] [facility] [address] [id number] [place] [address]- 7621 Feb, [facility] [place] [facility] [address] [id number] [place] [address]- 1999 Jan, [facility] [place] [facility] [address] [id number] [place] [address]- 0066 Jan, [facility] [place] [facility] [address] [id number] [place] [address]- 6854 Jan, [facility] [place] [facility] [address] [id number] [place] [address]- 3886 Jan, [facility] [place] [facility] [address] [id number] [place] [address]- 1516 Dec, [facility] [place] [facility] [address] [id number] [place] [address]- 2232 Dec, [facility] [place] [facility] [address] [id number] [place] 0885 Dec, [facility] [place] [facility] [address] [id number] [place] [address]- 4644 Dec, [facility] [place] [facility] [address] [id number] [place] [address]- 5811 Dec, [facility] [place] [facility] [address] [id number] [place] [address]- 9506 Dec, [facility] [place] [facility] [address] [id number] [place] [address]- 5900 Dec, [facility] [place] [facility] [address] [id number] [place] [address]- 8173 Dec, [facility] [place] [facility] [address] [id number] [place] [address]- 2646 Nov, [facility] [place] [facility] [address] [id number] [place] [address]- 7351 Nov, [facility] [place] [facility] [address] [id number] [place] [address]- 6326 Nov, [facility] [place] [facility] [address] [id number] [place] [address]- 0279 Nov, [facility] [place] [facility] [address] [id number] [place] [address]- 6109 Nov, [facility] [place] [facility] [address] [id number] [place] [address]- 5915 Oct, [facility] [place] [facility] [address] [id number] [place] [address]- 2233 Oct, [facility] [place] [facility] [address] [id number] [place] [address]- 6788 Sep, [facility] [place] [facility] [address] [id number] [place] [address]- 4778 Sep, [facility] [place] [facility] [address] [id number] [place] [address]- 8914 Sep, [facility] [place] [facility] [address] [id number] [place] [address]- 8117 Sep, [facility] [place] [facility] [address] [id number] [place] [address]- 4497 Sep, [facility] [place] [facility] [address] [id number] [place] [address]- 6569 Sep, [facility] [place] [facility] [address] [id number] [place] [address] Sep, [facility] [place] [facility] [address] [id number] [place] [address] Sep, [facility] [place] [facility] [address] [id number] [place] [address] Sep, [facility] [place] [facility] [address] [id number] [place] [address] Sep, [facility] [place] [facility] [address] [id number] [place] [address] Sep, [facility] [place] [facility] [address] [id number] [place] [address] Sep, [facility] [place] [facility] [address] [id number] [place] [address] Sep, [facility] [place] [facility] [address] [id number] [place] [address] Sep, [facility] [place] [facility] [address] [id number] [place] [address] 2008 July, [facility] [place] [facility] [address] [id number] [place] [address] July, [facility] [place] [facility] [address] [id number] [place] [address] July, [facility] [place] [facility] [address] [id number] [place] [address] July, [facility] [place] [facility] [address] [id number] [place] [address] July, [facility] [place] [facility] [address] [id number] [place] [address] July, [facility] [place] [facility] [address] [id number] [place] [address] [address] July, [facility] [place] [facility] [address] [id number] [place] [address] July, [facility] [place] [facility] [address] [id number] [place] [address] Jun, [facility] [place] [facility] [address] [id number] [place] [address] Jun, [facility] [place] [facility] [address] [id number] [place] [address] Jun, [facility] [place] [facility] [address] [id number] [place] [address] Jun, [facility] [place] [facility] [address] [id number] [place] [address] Jun, [facility] [place] [facility] [address] [id number] [place] [address] Jun, [facility] [place] [facility] [address] [id number] [place] [address] Jun, [facility] [place] [facility] [address] [id number] [place] [address] Jun, [facility] [place] [facility] [address] [id number] [place] [address] May, [facility] [place] [facility] [address] [id number] [place] [address] May, [facility] [place] [facility] [address] [id number] [place] [address]- [address] May, [facility] [place] [facility] [address] [id number] [place] [address] May, [facility] [place] [facility] [address] [id number] [place] [address]- [address] May, [facility] [place] [facility] [address] [id number] [place] [address] May, [facility] [place] [facility] [address] [id number] [place] [address]- [address] May, [facility] [place] [facility] [address] [id number] [place] [address] May, [facility] [place] [facility] [address] [id number] [place] [address] May, [facility] [place] [facility] [address] [id number] [place] [address] May, [facility] [place] [facility] [address] [address] [id number] [place] [address] May, [facility] [place] [facility] [address] [id number] [place] [address] May, [facility] [place] [facility] [address] [id number] [place] [address] May, [facility] [place] [facility] [address] [id number] [place] [address] May, [facility] [place] [facility] [address] [id number] [place] [address] May, [facility] [place] [facility] [address] [id number] [place] [address] May, [facility] [place] [facility] [address] [id number] [place] [address] Apr, [facility] [place] [facility] [address] [id number] [place] [address] Apr, [facility] [place] [facility] [address] [id number] [place] [address] Mar, [facility] [place] [facility] [address] [id number] [place] [address] Mar, [facility] [place] [facility] [address] [id number] [place] [address] Mar, [facility] [place] [facility] [address] [id number] [place] [address]24 Mar, [facility] [place] [facility] [address] [id number] [place] [address] Mar, [facility] [address] [id number] [place] [address] 90[address] Mar, [facility] [place] [facility] [address] [id number] [place] [address] Feb, [facility] [address] [id number] [place] [address] 4870 Feb, [facility] [place] [facility] [address] [id number] [place] [address] Feb, [facility] [address] [id number] [place] [address] Feb, [facility] [place] [facility] [address] [id number] [place] [address] 3467 Feb, [facility] [address] [id number] [place] [address] 8399 Feb, [facility] [place] [facility] [address] [id number] [place] [address] Jan, [facility] [place] [facility] [address] [id number] [place] [address] 1437 Jan, [facility] [place] [facility] [address] [facility] [id number] [place] [address]26 Jan, [facility] [place] [facility] [address] [id number] [place] [address] Jan, [facility] [place] [facility] [address] [id number], [place] [address] Jan, [facility] [place] [facility] [address] [id number] [place] [address] 2557 Jan, [facility] [place] [facility] [address] [facility] [id number], [place] [address] Jan, [facility] [place] [facility] [address] [id number][place] [address] Dec, [facility] [place] [facility] [address] [id number] [place] [address]607 Dec, [facility] [address] [id number] [place] [address] Dec, [facility] [address] [id number] [place] [address]46 Nov, [facility] [address] [id number] [place] [address] 2547 Oct, [facility] [address] [id number] [place] [address] Sep, [facility] [address] [id number] [place] [address] Sep, [facility] [address] [id number] [place] [address] 6085 Sep, [facility] [address] [id number] [place] [address] 1499 Sep, [facility] [address] [id number] [place] [address] 118[address] Sep, [facility] [address] [id number] [place] [address] 1874 Sep, [facility] [address] [id number] [place] [address] 1419 Aug, [facility] [place] [facility] [address] [id number] [place] [address] 7368 Aug, [facility] [place] [facility] [address] [id number] [place] [address] 9130 July, [facility] [place] [facility] [address] [id number] [place] [address]396 July, [facility] [place] [facility] [address] [id number] [place] [address] 3047 July, [facility] [place] [facility] [address] [id number] [place] [address] 2924 July, [facility] [address] [id number] [place] [address] 0218 Jun, [facility] [place] [facility] [address] [id number] [place] [address]376 May, [facility] [place] [facility] [address] [id number] [place] [address] May, [facility] [place] [facility] [address] [id number] [place] [address] 5014 May, [facility] [place] [facility] [address] [id number] [place] [address]- 1634 Mar, [facility] [place] [facility] [address] [id number] [place] [address] 3277 Mar, [facility] [place] [facility] [address] [id number] [place] [address] 1516 Mar, [facility] [place] [facility] [address] [id number] [place] [address] 8322 Feb, [facility] [place] [facility] [address] [id number] [place] [address]- 5589 Feb, [facility] [place] [facility] [address] [id number] [place] [address]- 7884 Feb, [facility] [place] [facility] [address] [id number] [place] [address]- 7353 Feb, [facility] [place] [facility] [address] [id number] [place] [address] 2505 Feb, [facility] [place] [facility] [address] [id number] [place] [address] 2383 Feb, [facility] [place] [facility] [address] [id number] [place] [address] 7756 Feb, [facility] [place] [facility] [address] [id number] [place] [address] 2216 Feb, [facility] [place] [facility] [address] [id number] [place] [address] 7357 Feb, [facility] [place] [facility] [address] [id number] [place] [address] 8672 Feb, [facility] [place] [facility] [address] [id number] [place] [address] 4131 Jan, [facility] [place] [facility] [address] [id number] [place] [address] 0141 Jan, [facility] [place] [facility] [address] [id number] [place] [address]- 8627 Jan, [facility] [place] [facility] [address] [id number] [place] [address], [place] [address]- 2027 Jan, [facility] [place] [facility] [address] [id number] [place] [address]- 9432 Jan, [facility] [place] [facility] [address] [id number] [place] [address]- 2407 Jan, [facility] [place] [facility] [address] [id number] [place] [address]- 7147 Jan, [facility] [place] [facility] [address] [id number] [place] [address]- 6276 Jan, [facility] [place] [facility] [address] [id number] [place] [address]- 3818 Jan, [facility] [place] [facility] [address] [id number] [place] [address]- 3422 Jan, [facility] [place] [facility] [address] [id number] [place] [address]- 9206 Dec, [facility] [place] [facility] [address] [id number] [place] [address]- 8522 Dec, [facility] [place] [facility] [address] [id number] [place] [address]- 1019 26 Nov, 2011 [facility] [place] [facility] [address] [id number] [place] [address]- 4567 24 Nov, 2011 [facility] [place] [facility] [address] [id number] [place] [address]- 4542 05 Nov, 2011 [facility] [place] [facility] [address] [id number] [place] [address]- 4106 Oct, [facility] [place] [facility] [address] [id number] [place] [address]- 6278 Oct, [facility] [place] [facility] [address] [id number] [place] [address]- 8419 Oct, [facility] [place] [facility] [address] [id number] [place] [address]- 6404 Oct, [facility] [place] [facility] [address] [id number] [place] [address]- 3375 18 Aug, 2011 [facility] [place] [facility] [address] [id number] [place] [address]- 6164 15 Aug, 2011 [facility] [place] [facility] [address] [id number] [place] [address]- 6552 14 Aug, 2011 [facility] [place] [facility] [address] [id number] [place] [address]- 9525 07 Aug, 2011 [facility] [place] [facility] [address] [id number] [place] [address]- 1770 08 Jun, 2011 [facility] [place] [facility] [address] [id number] [place] [address]- 7368 May, [facility] [place] [facility] [address] [id number], [place] [address] May, [facility] [place] [facility] [address] [id number] [place] [address]- 3000 Apr, [facility] [place] [facility] [address] [id number] [place] [address]- 5740 Apr, [facility] [place] [facility] [address] [id number] [place] [address]- 4000 15 Apr, 2011 [facility] [place] [facility] [address] [id number] [place] [address]- 0159 14 Apr, 2011 [facility] [address] [id number] [place] [address]- 0062 24 Mar, 2011 [facility] [place] [facility] [address] [id number] [place] [address]- 5596 19 Mar, 2011 [facility] [place] [facility] [address] [id number] [place] [address]- 6686 19 Mar, 2011 [facility] [place] [facility] [address] [id number] [place] [address]- 4724 18 Mar, 2011 [facility] [place] [facility] [address] [id number] [place] [address]- 9091 Mar, [facility] [place] [facility] [address] [id number] [place] [address]- 6856 Mar, [facility] [place] [facility] [address] [id number] [place] [address]- 4528 Feb, [facility] [place] [facility] [address] [id number] [place] [address]- 2648 Jan, [facility] [place] [facility] [address] [id number] [place] [address]- 1336 Jan, [facility] [place] [facility] [address] [facility] [id number] [place] [address]- 5756 Jan, [facility] [place] [facility] [address] [id number] [place] [address] 2546 Jan, [facility] [place] [facility] [address] [id number] [place] [address]- 2546 Jan, [facility] [place] [facility] [address] [id number] [place] [address]- 7866 Dec, [facility] [place] [facility] [address] [id number] [place] [address]- 2546 May, [facility] [place] [facility] [address] [id number] [place] [address]- 1116 14 Apr, 2010 [facility] [address] [facility] [id number], [place] [address] Mar, [facility] [address] [id number], [place] [address]40 Feb, [facility] [address] [id number], [place] [address]- 9676 Feb, [facility] [id number], [place] [address]40 Feb, [facility] [address] [id number], [place] [address]- 0807 Feb, [facility] [id number], [place] [address]- 6[address] Dec, [facility] [id number], [place] [address]- 4765 Dec, IMMUNIZATIONS No Known Immunizations SOCIAL HISTORY Never Assessed REASON FOR VISIT Diabetes JULI Smith PLAN OF CARE Activity Details Follow Up 3 Months Reason:DM VITAL SIGNS Height 67 in 2017-10-31 Weight 188.4 lbs 2017-10-31 Temperature 98.5 degrees Fahrenheit 2017-10-31 Heart Rate 78 bpm 2017-10-31 Respiratory Rate 18 2017-10-31 BMI 29.50 kg/m2 2017-10-31 Blood pressure systolic 128 mmHg 2017-10-31 Blood pressure diastolic 82 mmHg 2017-10-31 MEDICATIONS Medication Instructions Dosage Frequency Start Date End Date Duration Status Atorvastatin Calcium 40 MG Orally Once a day 1 tablet 24h 90 Active Ondansetron 8 MG Orally every 6 hrs 1 tablet on the tongue and allow to dissolve 6h May, Not-Taking Amlodipine Besylate 5 MG Orally Once a day 1 tablet 24h Active Adult Mask N/A as directed July, Active Aspir-81 81 MG Orally Once a day 1 tablet 24h Active Zenpep [id number] UNIT Orally 4 times a day 1 capsule before meals and snacks 6h 30 days Active Pantoprazole Sodium 40 MG TAKE ONE TABLET BY MOUTH ONCE DAILY 90 Active Levemir FlexTouch 100 units/ml Subcutaneous 2 times a day 65 units 12h 90 Active ReliOn Pen Decatur 32G X 4 MM as directed for injecting insulin 24 Dante , 2018 90 days Active Oxybutynin Chloride 5 MG Orally Twice a day 1 tablet 12h 90 Active OneTouch Ultra Test - test blood sugar 12h Nov, 90 days Active Prozac 20 MG Orally Once a day 1 capsule in the morning 24h May, 30 days Active Victoza 18 MG/3ML Subcutaneous Once a day Inject 1.8mg 24h 90 Active NovoLog Flexpen 100 UNIT/ML Subcutaneous 3 times a day. 20-30 UNITS Active RectiCare 5 % Externally Four times a day 1 application to anus as needed for pain 6h May, Active Quinapril HCl 20 MG TAKE 1 TABLET EVERY DAY 24h 90 Active Effexor XR 150 MG Orally Once a day 1 capsule with food 24h 90 Active Diclofenac Sodium & Capsaicin 1.5 & 0.025 % Active Metoprolol Tartrate 50 mg TAKE 1 TABLET TWICE DAILY 90 Active C-PAP Machine N/A as directed Oct, Active Nitrostat 0.4 MG Not-Taking Gabapentin 400 MG Orally 3 times a day 2 tablets 8h 30 days Active BusPIRone HCl 10 MG TAKE ONE TABLET BY MOUTH IN THE MORNING, ONE TABLET AT NOON AND TWO TABLETS AT BEDTIME 30 Active Vitamin E 100 UNIT Orally Once a day 1 capsule 24h Not-Taking Dapagliflozin Propanediol 5 mg Orally Once a day 1 tablet 24h Jun, 30 day(s) Active Fish Oil 1000 MG Orally Three times a day 1 capsule 8h Active Metformin HCl 500 mg Orally Twice a day 2 tablet 12h 90 Active RESULTS Name Result Date Reference Range A1C (IN HOUSE) 2017-10-31 A1C IN HOUSE 8.3 4.3 - 5.6 % Previous A1c 12.0 Lot [id number] Exp date 05/2019 PROCEDURES Procedure Date Ordered Result Body Site GLYCATED HEMOGLOBIN TEST Oct 31, 2017 INSTRUCTIONS MEDICATIONS ADMINISTERED No Known [...]
--- OUTSIDE RECORDS SUMMARY | 2017-12-14 13:08 | XMS REPORT | Continuity of Care Document ---
Author Author [facility] Address Unknown Phone Unavailable Allergies Active Description Code Type Severity Reaction Onset Reported/Identified Relationship to Patient Clinical Status Yes aspirin Drug Allergy N/A N/A 12/19/2009 Yes codeine Drug Allergy N/A N/A 12/19/2009 Yes NSAIDS Drug Allergy N/A N/A 12/19/2009 Yes aspirin Drug Allergy 12/19/2009 Yes codeine Drug Allergy 12/19/2009 Yes NSAIDS Drug Allergy 12/19/2009 Yes NSAIDS (Non-Steroidal Anti-Inflamma [id number] Drug Allergy Unknown N/A 04/2010 Yes codeine [id number] Drug Allergy Unknown N/A 08/01/2013 Medications There [...] COSME K 709.9 Skin Lesions 12/19/2009 YULY SCIENTIST IMMUNOLOGY, JYOTSNA S 250.02 Diabetes Ii Uncontrolled 12/19/2009 YULY SCIENTIST IMMUNOLOGY, JYOTSNA S 709.9 Skin Lesions 12/19/2009 YULY SCIENTIST IMMUNOLOGY, JYOTSNA S 250.02 Diabetes Ii Uncontrolled 12/19/2009 YULY SCIENTIST IMMUNOLOGY, JYOTSNA S 709.9 Skin Lesions 12/19/2009 YULY SCIENTIST IMMUNOLOGY, JYOTSNA S 250.02 Diabetes Ii Uncontrolled 12/19/2009 YULY SCIENTIST IMMUNOLOGY, JYOTSNA S 709.9 Skin Lesions 12/19/2009 YULY SCIENTIST IMMUNOLOGY, JYOTSNA S 250.02 Diabetes Ii Uncontrolled 12/19/2009 YULY SCIENTIST IMMUNOLOGY, JYOTSNA S 709.9 Skin Lesions 12/19/2009 RADHA SCIENTIST IMMUNOLOGY, DOMINIQUE R 250.02 Diabetes Ii Uncontrolled 12/19/2009 RADHA SCIENTIST IMMUNOLOGY, DOMINIQUE R 709.9 Skin Lesions 12/19/2009 YULY SCIENTIST IMMUNOLOGY, JYOTSNA S 250.02 Diabetes Ii Uncontrolled 12/19/2009 YULY SCIENTIST IMMUNOLOGY, JYOTSNA S 709.9 Skin Lesions 12/19/2009 RICO DO, COSME K 250.02 Diabetes Ii Uncontrolled 12/19/2009 RICO DO, COSME K 709.9 Skin Lesions 12/19/2009 YULY SCIENTIST IMMUNOLOGY, JYOTSNA S 250.02 Diabetes Ii Uncontrolled 12/19/2009 YULY SCIENTIST IMMUNOLOGY, JYOTSNA S 709.9 Skin Lesions 12/19/2009 RISHABH SCIENTIST IMMUNOLOGY, YARELIS A 250.02 Diabetes Ii Uncontrolled 12/19/2009 RISHABH SCIENTIST IMMUNOLOGY, YARELIS A 709.9 Skin Lesions 12/19/2009 YULY SCIENTIST IMMUNOLOGY, JYOTSNA S 250.02 Diabetes Ii Uncontrolled 12/19/2009 YULY SCIENTIST IMMUNOLOGY, JYOTSNA S 709.9 Skin Lesions 12/19/2009 RICO DO, COSME K 250.02 Diabetes Ii Uncontrolled 12/19/2009 RICO DO, COSME K 709.9 Skin Lesions 12/19/2009 RISHABH SCIENTIST IMMUNOLOGY, YARELIS A 250.02 Diabetes Ii Uncontrolled 12/19/2009 RISHABH SCIENTIST IMMUNOLOGY, YARELIS A 709.9 Skin Lesions 12/19/2009 RICO [...] CLARIBEL D 709.9 Skin Lesions 12/19/2009 RADHIKA GRACIA APRN 250.02 Diabetes Ii Uncontrolled 12/19/2009 RADHIKA [...] Cellulitis And Abscess Of Buttock 12/22/2009 YULY SCIENTIST IMMUNOLOGY, JYOTSNA S 682.5 Cellulitis And Abscess Of Buttock 12/22/2009 YULY SCIENTIST IMMUNOLOGY, JYOTSNA S 682.5 Cellulitis And Abscess Of Buttock 12/22/2009 YULY SCIENTIST IMMUNOLOGY, JYOTSNA S 682.5 Cellulitis And Abscess Of Buttock 12/22/2009 YULY SCIENTIST IMMUNOLOGY, JYOTSNA S 682.5 Cellulitis And Abscess Of Buttock 12/22/2009 DOMINIQUE GARCIA APRN 682.5 Cellulitis And Abscess Of Buttock 12/22/2009 YULY SCIENTIST IMMUNOLOGY, JYOTSNA S 682.5 Cellulitis And Abscess Of Buttock 12/22/2009 RICO DOENRIQUEA K 682.5 Cellulitis And Abscess Of Buttock 12/22/2009 YULY SCIENTIST IMMUNOLOGY, JYOTSNA S 682.5 Cellulitis And Abscess Of Buttock 12/22/2009 RISHABH FELDMANN, YARELIS A 682.5 Cellulitis And Abscess Of Buttock 12/22/2009 YULY SCIENTIST IMMUNOLOGY, JYOTSNA S 682.5 Cellulitis And Abscess Of Buttock 12/22/2009 RICO DOENRIQUEA K 682.5 Cellulitis And Abscess Of Buttock 12/22/2009 RISHABH SCIENTIST IMMUNOLOGY YARELIS A 682.5 Cellulitis And Abscess Of [...] APRNNDA S 300.4 Dysthymic Disorder 03/05/2010 YULY SCIENTIST IMMUNOLOGY, JYOTSNA S 401.1 BENIGN ESSENTIAL HYPERTENSION 03/05/2010 YULY FELDMANN, JYOTSNA S 625.6 Stress Incontinence Female 03/05/2010 YULY SCIENTIST IMMUNOLOGY, JYOTSNA S 300.4 Dysthymic Disorder 03/05/2010 YULY SCIENTIST IMMUNOLOGY, JYOTSNA S 401.1 BENIGN ESSENTIAL HYPERTENSION 03/05/2010 YULY FELDMANN, JYOTSNA S 625.6 Stress Incontinence Female 03/05/2010 YULY SCIENTIST IMMUNOLOGY, JYOTSNA S 300.4 Dysthymic Disorder 03/05/2010 YULY [...] S 401.1 BENIGN ESSENTIAL HYPERTENSION 03/05/2010 YULY SCIENTIST IMMUNOLOGY, JYOTSNA S 625.6 Stress Incontinence Female 03/05/2010 YULY AMOR, JYOTSNA S 300.4 Dysthymic Disorder 03/05/2010 YULY SCIENTIST IMMUNOLOGY, JYOTSNA S 401.1 BENIGN ESSENTIAL HYPERTENSION 03/05/2010 YULY FELDMANN, JYOTSNA S 625.6 Stress Incontinence Female 03/05/2010 YULY FELDMANN, JYOTSNA S 300.4 Dysthymic Disorder 03/05/2010 YULY SCIENTIST IMMUNOLOGY, JYOTSNA S 401.1 BENIGN ESSENTIAL HYPERTENSION 03/05/2010 YULY SCIENTIST IMMUNOLOGY, JYOTSNA S 625.6 Stress Incontinence Female 03/05/2010 YULY FELDMANN, JYOTSNA S 300.4 Dysthymic Disorder 03/05/2010 YULY SCIENTIST IMMUNOLOGY, JYOTSNA S 401.1 BENIGN ESSENTIAL HYPERTENSION 03/05/2010 [...] YARELIS A 300.4 Dysthymic Disorder 03/05/2010 RISHABH SCIENTIST IMMUNOLOGY, YARELIS A 401.1 BENIGN ESSENTIAL HYPERTENSION 03/05/2010 RISHABH SCIENTIST IMMUNOLOGY, YARELIS A 625.6 Stress Incontinence Female 03/05/2010 YULY FELDMANN, JYOTSNA S 300.4 Dysthymic Disorder 03/05/2010 YULY FELDMANN, JYOTSNA S 401.1 BENIGN ESSENTIAL HYPERTENSION 03/05/2010 YULYRICARDO FELDMANN, JYOTSNA S 625.6 Stress Incontinence Female 03/05/2010 RICO DO, COSME K 300.4 Dysthymic Disorder 03/05/2010 RICO DO, COSME K 401.1 BENIGN ESSENTIAL HYPERTENSION 03/05/2010 RICO DO, COSME K 625.6 Stress Incontinence Female 03/05/2010 RISHABH SCIENTIST IMMUNOLOGY, YARELIS A 300.4 Dysthymic Disorder 03/05/2010 RISHABH SCIENTIST IMMUNOLOGY, YARELIS A 401.1 BENIGN ESSENTIAL HYPERTENSION 03/05/2010 RISHABH SCIENTIST IMMUNOLOGY, YARELIS A 625.6 Stress Incontinence Female 03/05/2010 [...] APRN 625.6 Stress Incontinence Female 03/23/2010 YULY SCIENTIST IMMUNOLOGY, JYOTSNA S 729.5 Pain In Limb 03/23/2010 YULY SCIENTIST IMMUNOLOGY, JYOTSNA S 729.5 Pain In Limb 03/23/2010 YULY SCIENTIST IMMUNOLOGY, JYOTSNA S 729.5 Pain In Limb 03/23/2010 729.5 Pain In Limb 03/23/2010 729.5 Pain In Limb 03/23/2010 VERONIKA FELTONSJEREMY J 729.5 Pain In Limb 03/23/2010 VERONIKA FELTONSJEREMY 729.5 Pain In Limb 03/23/2010 RICO DO, COSME K 729.5 Pain In Limb 03/23/2010 YULY SCIENTIST IMMUNOLOGY, JYOTSNA S 729.5 Pain In Limb 03/23/2010 YULY SCIENTIST IMMUNOLOGY, JYOTSNA S 729.5 Pain In Limb 03/23/2010 YULY SCIENTIST IMMUNOLOGY, JYOTSNA S 729.5 Pain In Limb 03/23/2010 YULY SCIENTIST IMMUNOLOGY, JYOTSNA S 729.5 Pain In Limb 03/23/2010 DOMINIQUE GARCIA APRN R 729.5 Pain In Limb 03/23/2010 YULY SCIENTIST IMMUNOLOGY, JYOTSNA S 729.5 Pain In Limb 03/23/2010 RICO DO, COSME K 729.5 Pain In Limb 03/23/2010 YULY SCIENTIST IMMUNOLOGY, JYOTSNA S 729.5 Pain In Limb 03/23/2010 RISHABH SCIENTIST IMMUNOLOGY, YARELIS A 729.5 Pain In Limb 03/23/2010 YULY SCIENTIST IMMUNOLOGY, JYOTSNA S 729.5 Pain In Limb 03/23/2010 [...] JYOTSNA S 307.81 Tension Headache 04/27/2010 YULY SCIENTIST IMMUNOLOGY, JYOTSNA S 250.00 DIABETES MELLITUS TYPE 2 04/27/2010 YULY SCIENTIST IMMUNOLOGY, JYOTSNA S 307.81 Tension Headache 04/27/2010 YULY SCIENTIST IMMUNOLOGY, JYOTSNA S 250.00 DIABETES MELLITUS TYPE 2 04/27/2010 YULY SCIENTIST IMMUNOLOGY, JYOTSNA S 307.81 Tension Headache 04/27/2010 YULY SCIENTIST IMMUNOLOGY, JYOTSNA S 250.00 DIABETES MELLITUS TYPE 2 04/27/2010 UYLY SCIENTIST IMMUNOLOGY, JYOTSNA S 307.81 Tension Headache 04/27/2010 RADHA SCIENTIST IMMUNOLOGY, DOMINIQUE R 250.00 DIABETES MELLITUS TYPE 2 04/27/2010 GARCIA SCIENTIST IMMUNOLOGY, DOMINIQUE R 307.81 Tension Headache 04/27/2010 YULY SCIENTIST IMMUNOLOGY, JYOTSNA S 250.00 DIABETES MELLITUS TYPE 2 04/27/2010 YULY SCIENTIST IMMUNOLOGY, JYOTSNA S 307.81 Tension Headache 04/27/2010 RICO DO, COSME K 250.00 DIABETES MELLITUS TYPE 2 04/27/2010 RICO DO, COSME K 307.81 Tension Headache 04/27/2010 YULY SCIENTIST IMMUNOLOGY, JYOTSNA S 250.00 DIABETES MELLITUS TYPE 2 04/27/2010 YULY SCIENTIST IMMUNOLOGY, JYOTSNA S 307.81 Tension Headache 04/27/2010 RISHABH SCIENTIST IMMUNOLOGY, YARELIS A 250.00 DIABETES MELLITUS TYPE 2 04/27/2010 RISHABH SCIENTIST IMMUNOLOGY, YARELIS A 307.81 Tension Headache 04/27/2010 YULY SCIENTIST IMMUNOLOGY, JYOTSNA S 250.00 DIABETES MELLITUS TYPE 2 04/27/2010 YULY SCIENTIST IMMUNOLOGY, JYOTSNA S 307.81 Tension Headache 04/27/2010 RICO DO, COSME K 250.00 DIABETES MELLITUS TYPE 2 04/27/2010 RICO DO, COSME K 307.81 Tension Headache 04/27/2010 RISHABH SCIENTIST IMMUNOLOGY, YARELIS A 250.00 DIABETES MELLITUS TYPE 2 04/27/2010 RISHABH SCIENTIST IMMUNOLOGY, YARELIS A 307.81 Tension Headache 04/27/2010 RICO [...] JYOTSNA S 307.81 Tension Headache 04/27/2010 GARCIA SCIENTIST IMMUNOLOGY, RADHIKA D 250.00 DIABETES MELLITUS TYPE 2 04/27/2010 GARCIA SCIENTIST IMMUNOLOGY, RADHIKA D 307.81 Tension Headache 04/27/2010 JUDY DDS, CLARIBEL D 250.00 DIABETES MELLITUS TYPE 2 04/27/2010 JUDY DDS, CLARIBEL D 307.81 Tension Headache 04/27/2010 JOSE SCIENTIST IMMUNOLOGYREJION D 250.00 DIABETES MELLITUS TYPE 2 04/27/2010 [...] K 599.0 Urinary Tract Infection 05/19/2010 YULY SCIENTIST IMMUNOLOGY, JYOTSNA S 599.0 Urinary Tract Infection 05/19/2010 YULY FELDMANN, JYOTSNA S 599.0 Urinary Tract Infection 05/19/2010 YULY SCIENTIST IMMUNOLOGY, JYOTSNA S 599.0 Urinary Tract Infection 05/19/2010 YULY SCIENTIST IMMUNOLOGY, JYOTSNA S 599.0 Urinary Tract Infection 05/19/2010 DOMINIQUE GARCIA APRN 599.0 Urinary Tract Infection 05/19/2010 YULY AMOR, JYOTSNA S 599.0 Urinary Tract Infection 05/19/2010 RICO DO, COSME K 599.0 Urinary Tract Infection 05/19/2010 YULY AMOR, JYOTSNA S 599.0 Urinary Tract Infection 05/19/2010 RISHABH SCIENTIST IMMUNOLOGY, YARELIS A 599.0 Urinary Tract Infection 05/19/2010 YULY AMOR, JYOTSNA S 599.0 Urinary Tract Infection 05/19/2010 RICO DO, COSME K 599.0 Urinary Tract Infection 05/19/2010 RISHABH SCIENTIST IMMUNOLOGY, YARELIS A 599.0 Urinary Tract Infection 05/19/2010 [...] 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 08/20/2010 YULY SCIENTIST IMMUNOLOGY, JYOTSNA S 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 08/20/2010 YULY SCIENTIST IMMUNOLOGY, JYOTSNA S 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 08/20/2010 DOMINIQUE GARCIA APRN 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 08/20/2010 YULY SCIENTIST IMMUNOLOGY, JYOTSNA S 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 08/20/2010 RICO DO COSME K 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 08/20/2010 YULY SCIENTIST IMMUNOLOGY, JYOTSNA S 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 08/20/2010 RISHABH SCIENTIST IMMUNOLOGY, YARELIS A 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 08/20/2010 YULY SCIENTIST IMMUNOLOGY, JYOTSNA S 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 08/20/2010 RICO DO COSME K 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 08/20/2010 RISHABH SCIENTIST IMMUNOLOGY, YARELIS A 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 [...] Of Uncertain Behavior Of Skin 11/17/2010 YULY SCIENTIST IMMUNOLOGY, JYOTSNA S 354.0 Carpal Tunnel Syndrome 11/17/2010 YULY SCIENTIST IMMUNOLOGY, JYOTSNA 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 11/17/2010 YULY SCIENTIST IMMUNOLOGY, JYOTSNA S 354.0 Carpal Tunnel Syndrome 11/17/2010 YULY FELDMANN, JYOTSNA 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 11/17/2010 YULY SCIENTIST IMMUNOLOGY, JYOTSNA S 354.0 Carpal Tunnel Syndrome 11/17/2010 [...] K 354.0 Carpal Tunnel Syndrome 11/17/2010 YULY SCIENTIST IMMUNOLOGY, JYOTSNA 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 11/17/2010 YULY SCIENTIST IMMUNOLOGY, JYOTSNA S 354.0 Carpal Tunnel Syndrome 11/17/2010 YULY SCIENTIST IMMUNOLOGY, JYOTSNA 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 11/17/2010 YULY SCIENTIST IMMUNOLOGY, JYOTSNA S 354.0 Carpal Tunnel Syndrome 11/17/2010 YULY SCIENTIST IMMUNOLOGY, JYOTSNA 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 11/17/2010 YULY SCIENTIST IMMUNOLOGY, JYOTSNA S 354.0 Carpal Tunnel Syndrome 11/17/2010 YULY SCIENTIST IMMUNOLOGY, JYOTSNA 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 11/17/2010 YULY SCIENTIST IMMUNOLOGY, JYOTSNA S 354.0 Carpal Tunnel Syndrome 11/17/2010 GARCIA SCIENTIST IMMUNOLOGY, DOMINIQUE R 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 11/17/2010 GARCIA SCIENTIST IMMUNOLOGY, DOMINIQUE R 354.0 Carpal Tunnel Syndrome 11/17/2010 YULY SCIENTIST IMMUNOLOGY, JYOTSNA 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 11/17/2010 YULY SCIENTIST IMMUNOLOGY, JYOTSNA S 354.0 Carpal Tunnel Syndrome 11/17/2010 RICO DO, COSME K 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 11/17/2010 RICO DO, COSME K 354.0 Carpal Tunnel Syndrome 11/17/2010 YULY SCIENTIST IMMUNOLOGY, JYOTSNA 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 11/17/2010 YULY SCIENTIST IMMUNOLOGY, JYOTSNA S 354.0 Carpal Tunnel Syndrome 11/17/2010 RISHABH SCIENTIST IMMUNOLOGY, YARELIS A 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 11/17/2010 RISHABH SCIENTIST IMMUNOLOGY, YARELIS A 354.0 Carpal Tunnel Syndrome 11/17/2010 YULY SCIENTIST IMMUNOLOGY, JYOTSNA 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 11/17/2010 YULY SCIENTIST IMMUNOLOGY, JYOTSNA S 354.0 Carpal Tunnel Syndrome 11/17/2010 RICO DO, COSME K 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 11/17/2010 RICO DO, COSME K 354.0 Carpal Tunnel Syndrome 11/17/2010 RISHABH SCIENTIST IMMUNOLOGY, YARELIS A 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 11/17/2010 RISHABH SCIENTIST IMMUNOLOGY, YARELIS A 354.0 Carpal Tunnel Syndrome 11/17/2010 [...] JOVANA 354.0 Carpal Tunnel Syndrome 11/17/2010 YULY SCIENTIST IMMUNOLOGY, JYOTSNA 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 11/17/2010 YULY SCIENTIST IMMUNOLOGY, JYOTSNA S 354.0 Carpal Tunnel Syndrome 11/17/2010 [...] APRN 354.0 Carpal Tunnel Syndrome 12/15/2010 YULY SCIENTIST IMMUNOLOGY, JYOTSNA S 300.00 ANXIETY STATE UNSPECIFIED 12/15/2010 YULY SCIENTIST IMMUNOLOGY JYOTSNA S 780.57 SLEEP APNEA 12/15/2010 YULY SCIENTIST IMMUNOLOGY, JYOTSNA S 780.79 fatigue 12/15/2010 YULY SCIENTIST IMMUNOLOGY, JYOTSNA S V04.81 Flu Dx (3 Yrs And Above, Im) 12/15/2010 YULY SCIENTIST IMMUNOLOGY, JYOTSNA S 300.00 ANXIETY STATE UNSPECIFIED 12/15/2010 YULY SCIENTIST IMMUNOLOGY, JYOTSNA S 780.57 SLEEP APNEA 12/15/2010 YULY SCIENTIST IMMUNOLOGY, JYOTSNA S 780.79 fatigue 12/15/2010 UYLY SCIENTIST IMMUNOLOGY, JYOTSNA S V04.81 Flu Dx (3 Yrs And Above, Im) 12/15/2010 YULY SCIENTIST IMMUNOLOGY, JYOTSNA S 300.00 ANXIETY STATE UNSPECIFIED 12/15/2010 YULY SCIENTIST IMMUNOLOGY, JYOTSNA S 780.57 SLEEP APNEA 12/15/2010 YULY SCIENTIST IMMUNOLOGY, JYOTSNA S 780.79 fatigue 12/15/2010 YULY SCIENTIST IMMUNOLOGY, JYOTSNA S V04.81 Flu Dx (3 Yrs [...] (3 Yrs And Above, Im) 12/15/2010 YULY SCIENTIST IMMUNOLOGY, JYOTSNA S 300.00 ANXIETY STATE UNSPECIFIED 12/15/2010 YULY SCIENTIST IMMUNOLOGY, JYOTSNA S 780.57 SLEEP APNEA 12/15/2010 YULY SCIENTIST IMMUNOLOGY, JYOTSNA S 780.79 fatigue 12/15/2010 UYLY SCIENTIST IMMUNOLOGY, JYOTSNA S V04.81 Flu Dx (3 Yrs And Above, Im) 12/15/2010 YULY SCIENTIST IMMUNOLOGY, JYOTSNA S 300.00 ANXIETY STATE UNSPECIFIED 12/15/2010 YULY SCIENTIST IMMUNOLOGY, JYOTSNA S 780.57 SLEEP APNEA 12/15/2010 YULY SCIENTIST IMMUNOLOGY, JYOTSNA S 780.79 fatigue 12/15/2010 YULY SCIENTIST IMMUNOLOGY, JYOTSNA S V04.81 Flu Dx (3 Yrs And Above, Im) 12/15/2010 YULY SCIENTIST IMMUNOLOGY, JYOTSNA S 300.00 ANXIETY STATE UNSPECIFIED 12/15/2010 YULY SCIENTIST IMMUNOLOGY, JYOTSNA S 780.57 SLEEP APNEA 12/15/2010 YULY SCIENTIST IMMUNOLOGY, JYOTSNA S 780.79 fatigue 12/15/2010 YULY SCIENTIST IMMUNOLOGY, JYOTSNA S V04.81 Flu Dx (3 Yrs And Above, Im) 12/15/2010 YULY SCIENTIST IMMUNOLOGY, JYOTSNA S 300.00 ANXIETY STATE UNSPECIFIED 12/15/2010 YULY SCIENTIST IMMUNOLOGY, JYOTSNA S 780.57 SLEEP APNEA 12/15/2010 YULY SCIENTIST IMMUNOLOGY, JYOTSNA S 780.79 fatigue 12/15/2010 YULY SCIENTIST IMMUNOLOGY, JYOTSNA S V04.81 Flu Dx (3 Yrs And Above, Im) 12/15/2010 GARCIA SCIENTIST IMMUNOLOGY, DOMINIQUE R 300.00 ANXIETY STATE UNSPECIFIED 12/15/2010 GARCIA SCIENTIST IMMUNOLOGY, DOMINIQUE R 780.57 SLEEP APNEA 12/15/2010 GARCIA SCIENTIST IMMUNOLOGY, DOMINIQUE R 780.79 fatigue 12/15/2010 GARCIA SCIENTIST IMMUNOLOGY, DOMINIQUE R V04.81 Flu Dx (3 Yrs And Above, Im) 12/15/2010 YULY SCIENTIST IMMUNOLOGY, JYOTSNA S 300.00 ANXIETY STATE UNSPECIFIED 12/15/2010 YULY SCIENTIST IMMUNOLOGY, JYOTSNA S 780.57 SLEEP APNEA 12/15/2010 YULY SCIENTIST IMMUNOLOGY, JYOTSNA S 780.79 fatigue 12/15/2010 YULY SCIENTIST IMMUNOLOGY, JYOTSNA S V04.81 Flu Dx (3 Yrs And Above, Im) 12/15/2010 RICO DO, COSME K 300.00 ANXIETY STATE UNSPECIFIED 12/15/2010 RICO DO, COSME K 780.57 SLEEP APNEA 12/15/2010 RICO DO, COSME K 780.79 fatigue 12/15/2010 RICO DO, COSME K V04.81 Flu Dx (3 Yrs And Above, Im) 12/15/2010 YULY SCIENTIST IMMUNOLOGY, JYOTSNA S 300.00 ANXIETY STATE UNSPECIFIED 12/15/2010 YULY SCIENTIST IMMUNOLOGY, JYOTSNA S 780.57 SLEEP APNEA 12/15/2010 YULY SCIENTIST IMMUNOLOGY, JYOTSNA S 780.79 FATIGUE 12/15/2010 YULY SCIENTIST IMMUNOLOGY, JYOTSNA S V04.81 Flu Dx (3 Yrs And Above, Im) 12/15/2010 RISHABH SCIENTIST IMMUNOLOGY, YARELIS A 300.00 ANXIETY STATE UNSPECIFIED 12/15/2010 RISHABH SCIENTIST IMMUNOLOGY, YARELIS A 780.57 SLEEP APNEA 12/15/2010 RISHABH SCIENTIST IMMUNOLOGY, YARELIS A 780.79 FATIGUE 12/15/2010 RISHABH SCIENTIST IMMUNOLOGY, YARELIS A V04.81 Flu Dx (3 Yrs And Above, Im) 12/15/2010 YULY SCIENTIST IMMUNOLOGY, JYOTSNA S 300.00 ANXIETY STATE UNSPECIFIED 12/15/2010 YULY SCIENTIST IMMUNOLOGY, JYOTSNA S 780.57 SLEEP APNEA 12/15/2010 YULY SCIENTIST IMMUNOLOGY, JYOTSNA S 780.79 FATIGUE 12/15/2010 YULY SCIENTIST IMMUNOLOGY, JYOTSNA S V04.81 Flu Dx (3 Yrs And Above, Im) 12/15/2010 RICO DO, COSME K 300.00 ANXIETY STATE UNSPECIFIED 12/15/2010 RICO DO, COSME K 780.57 SLEEP APNEA 12/15/2010 RICO DO, COSME K 780.79 FATIGUE 12/15/2010 RICO DO, COSME K V04.81 Flu Dx (3 Yrs And Above, Im) 12/15/2010 RISHABH SCIENTIST IMMUNOLOGY, YARELIS A 300.00 ANXIETY STATE UNSPECIFIED 12/15/2010 RISHABH SCIENTIST IMMUNOLOGY, YARELIS A 780.57 SLEEP APNEA 12/15/2010 RISHABH SCIENTIST IMMUNOLOGY, YARELIS A 780.79 FATIGUE 12/15/2010 RISHABH SCIENTIST IMMUNOLOGY, YARELIS A V04.81 Flu Dx (3 Yrs [...] TAN DDS, JOVANA 780.79 FATIGUE 12/15/2010 TAN DDSJOVAAN V04.81 Flu Dx (3 Yrs And Above, [...] SYND 12/25/2010 Ot 414.01 CORONARY ATHEROSCLEROSIS OF [place] CORON 12/25/2010 Ot 530.81 ESOPHAGEAL REFLUX 12/25/2010 [...] SYND 01/01/2011 Ot 414.01 CORONARY ATHEROSCLEROSIS OF [place] CORON 01/01/2011 Ot V45.82 PERCUTANEOUS TRANSLUM CORON [...] DIABETES 03/23/2011 Ot 414.01 CORONARY ATHEROSCLEROSIS OF [place] CORON 03/23/2011 Ot 794.30 ABN CARDIOVASC STUDY NOS 03/23/2011 Ot V45.82 PERCUTANEOUS TRANSLUM CORON ANGIOPLASTY 03/23/2011 Ot V58.63 LONG-TERM( CURRENT)USE OF ANTIPLATELET/AN 03/23/2011 Ot V58.69 OTH MED,LT, CURRENT USE 03/31/2011 YULY SCIENTIST IMMUNOLOGY, JYOTSNA S 786.2 Cough 03/31/2011 YULY SCIENTIST IMMUNOLOGY, JYOTSNA S 786.2 Cough 03/31/2011 YULY SCIENTIST IMMUNOLOGY, JYOTSNA S 786.2 Cough 03/31/2011 786.2 Cough 03/31/2011 786.2 Cough 03/31/2011 JEREMY BANDA DDS 786.2 Cough 03/31/2011 VERONIKA FELTONSJEREMY 786.2 Cough 03/31/2011 ENRIQUE [place] DOA K 786.2 Cough 03/31/2011 YULY SCIENTIST IMMUNOLOGY, JYOTSNA S 786.2 Cough 03/31/2011 YULY SCIENTIST IMMUNOLOGY, JYOTSNA S 786.2 Cough 03/31/2011 YULY SCIENTIST IMMUNOLOGY, JYOTSNA S 786.2 Cough 03/31/2011 YULY SCIENTIST IMMUNOLOGY, JYOTSNA S 786.2 Cough 03/31/2011 STEVEN GARCIA APRNIA R 786.2 Cough 03/31/2011 YULY FELDMANN, JYOTSNA S 786.2 Cough 03/31/2011 ENRIQUE [place] DOA K 786.2 Cough 03/31/2011 YULY SCIENTIST IMMUNOLOGY, JYOTSNA S 786.2 Cough 03/31/2011 RISHABH SCIENTIST IMMUNOLOGY, YARELIS A 786.2 Cough 03/31/2011 YULY SCIENTIST IMMUNOLOGY, JYOTSNA S 786.2 Cough 03/31/2011 RICO DO COSME K 786.2 Cough 03/31/2011 RISHABH SCIENTIST IMMUNOLOGY, YARELIS A 786.2 Cough 03/31/2011 RICO DO [...] INFARCT 05/11/2011 Ot 414.01 CORONARY ATHEROSCLEROSIS OF [place] CORON 05/11/2011 Ot 458.9 HYPOTENSION NOS 05/18/2011 [...] APRN 790.6 Abnormal Blood Chemistry 05/18/2011 YULY SCIENTIST IMMUNOLOGY, JYOTSNA S 790.6 Abnormal Blood Chemistry 05/18/2011 [...] NOS 08/18/2011 Ot 414.01 CORONARY ATHEROSCLEROSIS OF [place] CORON 08/18/2011 Ot 786.50 CHEST PAIN NOS 08/18/2011 Ot 787.1 HEARTBURN 08/18/2011 Ot 789.06 ABDOMINAL PAIN, EPIGASTRIC 08/18/2011 Ot V45.82 PERCUTANEOUS TRANSLUM CORON ANGIOPLASTY 08/26/2011 JYOTSNA EMERY APRN S 386.10 Peripheral Vertigo Unspecified 08/26/2011 JYOTSNA EMERY APRN S 786.50 UNSPECIFIED CHEST PAIN 08/26/2011 JYOTSNA EMERY APRN S 386.10 Peripheral Vertigo Unspecified 08/26/2011 YULY SCIENTIST IMMUNOLOGY, JYOTSNA S 786.50 UNSPECIFIED CHEST PAIN 08/26/2011 YULY FELDMANN, JYOTSNA S 386.10 Peripheral Vertigo Unspecified 08/26/2011 YULY SCIENTIST IMMUNOLOGY, JYOTSNA S 786.50 UNSPECIFIED CHEST PAIN 08/26/2011 [...] S 386.10 Peripheral Vertigo Unspecified 08/26/2011 YULY SCIENTIST IMMUNOLOGY, JYOTSNA S 786.50 UNSPECIFIED CHEST PAIN 08/26/2011 YULY SCIENTIST IMMUNOLOGY, JYOTSNA S 386.10 Peripheral Vertigo Unspecified 08/26/2011 YULY SCIENTIST IMMUNOLOGY, JYOTSNA S 786.50 UNSPECIFIED CHEST PAIN 08/26/2011 YULY SCIENTIST IMMUNOLOGY, JYOTSNA S 386.10 Peripheral Vertigo Unspecified 08/26/2011 YULY SCIENTIST IMMUNOLOGY, JYOTSNA S 786.50 UNSPECIFIED CHEST PAIN 08/26/2011 YULY SCIENTIST IMMUNOLOGY, JYOTSNA S 386.10 Peripheral Vertigo Unspecified 08/26/2011 YULY SCIENTIST IMMUNOLOGY, JYOTSNA S 786.50 UNSPECIFIED CHEST PAIN 08/26/2011 GARCIA SCIENTIST IMMUNOLOGY, DOMINIQUE R 386.10 Peripheral Vertigo Unspecified 08/26/2011 GARCIA SCIENTIST IMMUNOLOGY, DOMINIQUE R 786.50 UNSPECIFIED CHEST PAIN 08/26/2011 YULY SCIENTIST IMMUNOLOGY, JYOTSNA S 386.10 Peripheral Vertigo Unspecified 08/26/2011 YULY SCIENTIST IMMUNOLOGY, JYOTSNA S 786.50 UNSPECIFIED CHEST PAIN 08/26/2011 [place] DO, COSME K 386.10 Peripheral Vertigo Unspecified 08/26/2011 [place] DO, COSME K 786.50 UNSPECIFIED CHEST PAIN 08/26/2011 YULY SCIENTIST IMMUNOLOGY, JYOTSNA S 386.10 Peripheral Vertigo Unspecified 08/26/2011 YULY SCIENTIST IMMUNOLOGY, JYOTSNA S 786.50 UNSPECIFIED CHEST PAIN 08/26/2011 RISHABH SCIENTIST IMMUNOLOGY, YARELIS A 386.10 Peripheral Vertigo Unspecified 08/26/2011 RISHABH SCIENTIST IMMUNOLOGY, YARELIS A 786.50 UNSPECIFIED CHEST PAIN 08/26/2011 YULY SCIENTIST IMMUNOLOGY, JYOTSNA S 386.10 Peripheral Vertigo Unspecified 08/26/2011 YULY SCIENTIST IMMUNOLOGY, JYOTSNA S 786.50 UNSPECIFIED CHEST PAIN 08/26/2011 [place] DO, COSME K 386.10 Peripheral Vertigo Unspecified 08/26/2011 RICO DO, COSME K 786.50 UNSPECIFIED CHEST PAIN 08/26/2011 RISHABH SCIENTIST IMMUNOLOGY, YARELIS A 386.10 Peripheral Vertigo Unspecified 08/26/2011 RISHABH SCIENTIST IMMUNOLOGY, YARELIS A 786.50 UNSPECIFIED CHEST PAIN 08/26/2011 [...] JOVANA 786.50 UNSPECIFIED CHEST PAIN 08/26/2011 YULY SCIENTIST IMMUNOLOGY, JYOTSNA S 386.10 Peripheral Vertigo Unspecified 08/26/2011 YULY SCIENTIST IMMUNOLOGY, JYOTSNA S 786.50 UNSPECIFIED CHEST PAIN 08/26/2011 JOSE AMOR, RADHIKA Jarrett 386.10 Peripheral Vertigo Unspecified 08/26/2011 RADHIKA GARCIA APRN 786.50 UNSPECIFIED CHEST PAIN 08/26/2011 JUDY DDS, CLARIBEL D 386.10 Peripheral Vertigo Unspecified 08/26/2011 JUDY DDSCLARIBEL 786.50 UNSPECIFIED CHEST PAIN 08/26/2011 GARCIA RADHIKA AMOR 386.10 Peripheral Vertigo Unspecified 08/26/2011 RADHIKA GARCIA APRN 786.50 UNSPECIFIED CHEST PAIN 11/01/2011 YULY SCIENTIST IMMUNOLOGY, JYOTSNA S 786.52 Chest Wall Pain 11/01/2011 YULY FELDMANN, JYOTSNA S 787.1 Heartburn 11/01/2011 YULY SCIENTIST IMMUNOLOGY, JYOTSNA S 787.3 Gas/bloating Pain 11/01/2011 YULY SCIENTIST IMMUNOLOGY, JYOTSNA S 789.06 Abdominal Pain Epigastric 11/01/2011 YULY SCIENTIST IMMUNOLOGY, JYOTSNA S 786.52 Chest Wall Pain 11/01/2011 YULY SCIENTIST IMMUNOLOGY, JYOTSNA S 787.1 Heartburn 11/01/2011 YULY SCIENTIST IMMUNOLOGY, JYOTSNA S 787.3 Gas/bloating Pain 11/01/2011 YULY SCIENTIST IMMUNOLOGY, JYOTSNA S 789.06 Abdominal Pain Epigastric 11/01/2011 YULY SCIENTIST IMMUNOLOGY, JYOTSNA S 786.52 Chest Wall Pain 11/01/2011 YULY SCIENTIST IMMUNOLOGY, JYOTSNA S 787.1 Heartburn 11/01/2011 YULY SCIENTIST IMMUNOLOGY, JYOTSNA S 787.3 Gas/bloating Pain 11/01/2011 YULY SCIENTIST IMMUNOLOGY, JYOTSNA S 789.06 Abdominal Pain Epigastric 11/01/2011 [...] K 789.06 Abdominal Pain Epigastric 11/01/2011 YULY SCIENTIST IMMUNOLOGY, JYOTSNA S 786.52 Chest Wall Pain 11/01/2011 YULY SCIENTIST IMMUNOLOGY, JYOTSNA S 787.1 Heartburn 11/01/2011 YULY SCIENTIST IMMUNOLOGY, JYOTSNA S 787.3 Gas/bloating Pain 11/01/2011 YULY SCIENTIST IMMUNOLOGY, JYOTSNA S 789.06 Abdominal Pain Epigastric 11/01/2011 YULY SCIENTIST IMMUNOLOGY, JYOTSNA S 786.52 Chest Wall Pain 11/01/2011 YULY SCIENTIST IMMUNOLOGY, JYOTSNA S 787.1 Heartburn 11/01/2011 YULY SCIENTIST IMMUNOLOGY, JYOTSNA S 787.3 Gas/bloating Pain 11/01/2011 YULY SCIENTIST IMMUNOLOGY, JYOTSNA S 789.06 Abdominal Pain Epigastric 11/01/2011 YULY SCIENTIST IMMUNOLOGY, JYOTSNA S 786.52 Chest Wall Pain 11/01/2011 YULY SCIENTIST IMMUNOLOGY, JYOTSNA S 787.1 Heartburn 11/01/2011 YULY SCIENTIST IMMUNOLOGY, JYOTSNA S 787.3 Gas/bloating Pain 11/01/2011 YULY SCIENTIST IMMUNOLOGY, JYOTSNA S 789.06 Abdominal Pain Epigastric 11/01/2011 YULY SCIENTIST IMMUNOLOGY, JYOTSNA S 786.52 Chest Wall Pain 11/01/2011 YULY SCIENTIST IMMUNOLOGY, JYOTSNA S 787.1 Heartburn 11/01/2011 YULY SCIENTIST IMMUNOLOGY, JYOTSNA S 787.3 Gas/bloating Pain 11/01/2011 YULY SCIENTIST IMMUNOLOGY, JYOTSNA S 789.06 Abdominal Pain Epigastric 11/01/2011 GARCIA SCIENTIST IMMUNOLOGY, DOMINIQUE R 786.52 Chest Wall Pain 11/01/2011 GARCIA SCIENTIST IMMUNOLOGY, DOMINIQUE R 787.1 Heartburn 11/01/2011 GARCIA SCIENTIST IMMUNOLOGY, DOMINIQUE R 787.3 Gas/bloating Pain 11/01/2011 GARCIA SCIENTIST IMMUNOLOGY, DOMINIQUE R 789.06 Abdominal Pain Epigastric 11/01/2011 YULY SCIENTIST IMMUNOLOGY, JYOTSNA S 786.52 Chest Wall Pain 11/01/2011 YULY SCIENTIST IMMUNOLOGY, JYOTSNA S 787.1 Heartburn 11/01/2011 YULY SCIENTIST IMMUNOLOGY, JYOTSNA S 787.3 Gas/bloating Pain 11/01/2011 YULY SCIENTIST IMMUNOLOGY, JYOTSNA S 789.06 Abdominal Pain Epigastric 11/01/2011 RICO DO, COSME K 786.52 Chest Wall Pain 11/01/2011 RICO DO, COSME K 787.1 Heartburn 11/01/2011 RICO DO, COSME K 787.3 Gas/bloating Pain 11/01/2011 RICO DO, COSME K 789.06 Abdominal Pain Epigastric 11/01/2011 YULY SCIENTIST IMMUNOLOGY, JYOTSNA S 786.52 Chest Wall Pain 11/01/2011 YULY SCIENTIST IMMUNOLOGY, JYOTSNA S 787.1 Heartburn 11/01/2011 YULY SCIENTIST IMMUNOLOGY, JYOTSNA S 787.3 Gas/bloating Pain 11/01/2011 YULY SCIENTIST IMMUNOLOGY, JYOTSNA S 789.06 Abdominal Pain Epigastric 11/01/2011 RISHABH SCIENTIST IMMUNOLOGY, YARELIS A 786.52 Chest Wall Pain 11/01/2011 RISHABH SCIENTIST IMMUNOLOGY, YARELIS A 787.1 Heartburn 11/01/2011 RISHABH SCIENTIST IMMUNOLOGY, YARELIS A 787.3 Gas/bloating Pain 11/01/2011 RISHABH SCIENTIST IMMUNOLOGY, YARELIS A 789.06 Abdominal Pain Epigastric 11/01/2011 YULY SCIENTIST IMMUNOLOGY, JYOTSNA S 786.52 Chest Wall Pain 11/01/2011 YULY SCIENTIST IMMUNOLOGY, JYOTSNA S 787.1 Heartburn 11/01/2011 YULY SCIENTIST IMMUNOLOGY, JYOTSNA S 787.3 Gas/bloating Pain 11/01/2011 YULY AMOR, JYOTSNA S 789.06 Abdominal Pain Epigastric 11/01/2011 RICO DO, COSME K 786.52 Chest Wall Pain 11/01/2011 RICO DO, COSME K 787.1 Heartburn 11/01/2011 RICO DO, COSME K 787.3 Gas/bloating Pain 11/01/2011 RICO DO, COSME K 789.06 Abdominal Pain Epigastric 11/01/2011 RISHABH SCIENTIST IMMUNOLOGY, YARELIS A 786.52 Chest Wall Pain 11/01/2011 RISHABH SCIENTIST IMMUNOLOGY, YARELIS A 787.1 Heartburn 11/01/2011 RISHABH SCIENTIST IMMUNOLOGY, YARELIS A 787.3 Gas/bloating Pain 11/01/2011 RISHABH SCIENTIST IMMUNOLOGY, YARELIS A 789.06 Abdominal Pain Epigastric 11/01/2011 RICO DO, COSME K 786.52 Chest Wall Pain 11/01/2011 RICO DO, COSME K 787.1 Heartburn 11/01/2011 RICO DO, COSME K 787.3 Gas/bloating Pain 11/01/2011 RICO DO, COSME K 789.06 Abdominal Pain Epigastric 11/01/2011 TAN DDS, JOVANA 786.52 Chest Wall Pain 11/01/2011 TAN DDS, JOVANA 787.1 Heartburn 11/01/2011 TAN DDS, JOVANA 787.3 Gas/bloating Pain 11/01/2011 TAN DDS, JOAVNA 789.06 Abdominal Pain Epigastric 11/01/2011 TAN DDS, JOVANA 786.52 Chest Wall Pain 11/01/2011 TAN DDS, JOVANA 787.1 Heartburn 11/01/2011 TAN DDS, JOVANA 787.3 Gas/bloating Pain 11/01/2011 TAN DDS, JOVANA 789.06 Abdominal Pain Epigastric 11/01/2011 TAN DDS, JOVANA 786.52 Chest Wall Pain 11/01/2011 TAN DDS, JOVANA 787.1 Heartburn 11/01/2011 TAN DDS, JVOANA 787.3 Gas/bloating Pain 11/01/2011 TAN DDS, JOVANA [...] INFARCT 01/24/2012 Ot 414.01 CORONARY ATHEROSCLEROSIS OF [place] CORON 01/24/2012 Ot 786.50 CHEST PAIN NOS [...] EMERY APRNA S 110.1 ONYCHOMYCOSIS 05/23/2012 YULY SCIENTIST IMMUNOLOGY, JYOTSNA S 724.5 BACKACHE UNSPECIFIED 05/23/2012 YULY SCIENTIST IMMUNOLOGY, JYOTSNA S 110.1 ONYCHOMYCOSIS 05/23/2012 YULY SCIENTIST IMMUNOLOGY, JYOTSNA S 724.5 BACKACHE UNSPECIFIED 05/23/2012 GARCIA SCIENTIST IMMUNOLOGY, DOMINIQUE R 110.1 ONYCHOMYCOSIS 05/23/2012 GARCIA SCIENTIST IMMUNOLOGY, DOMINIQUE R 724.5 BACKACHE UNSPECIFIED 05/23/2012 YULY SCIENTIST IMMUNOLOGY, JYOTSNA S 110.1 ONYCHOMYCOSIS 05/23/2012 YULY SCIENTIST IMMUNOLOGY, JYOTSNA S 724.5 BACKACHE UNSPECIFIED 05/23/2012 RICO DO, COSME K 110.1 ONYCHOMYCOSIS 05/23/2012 RICO DO, COSME K 724.5 BACKACHE UNSPECIFIED 05/23/2012 YULY SCIENTIST IMMUNOLOGY, JYOTSNA S 110.1 ONYCHOMYCOSIS 05/23/2012 YULY SCIENTIST IMMUNOLOGY, JYOTSNA S 724.5 BACKACHE UNSPECIFIED 05/23/2012 RISHABH SCIENTIST IMMUNOLOGY, YARELIS A 110.1 ONYCHOMYCOSIS 05/23/2012 RISHABH SCIENTIST IMMUNOLOGY, YARELIS A 724.5 BACKACHE UNSPECIFIED 05/23/2012 YULY SCIENTIST IMMUNOLOGY, JYOTSNA S 110.1 ONYCHOMYCOSIS 05/23/2012 YULY SCIENTIST IMMUNOLOGY, JYOTSNA S 724.5 BACKACHE UNSPECIFIED 05/23/2012 RICO DO, COSME K 110.1 ONYCHOMYCOSIS 05/23/2012 RICO DO, COSME K 724.5 BACKACHE UNSPECIFIED 05/23/2012 RISHABH SCIENTIST IMMUNOLOGY, YARELIS A 110.1 ONYCHOMYCOSIS 05/23/2012 RISHABH SCIENTIST IMMUNOLOGY, YARELIS A 724.5 BACKACHE UNSPECIFIED 05/23/2012 RICO DO, COSME K 110.1 ONYCHOMYCOSIS 05/23/2012 RICO DO, COSME K 724.5 BACKACHE UNSPECIFIED 05/23/2012 TAN DDS, JOVANA 110.1 ONYCHOMYCOSIS 05/23/2012 TAN DDS, JOVANA 724.5 BACKACHE UNSPECIFIED 05/23/2012 TAN DDS, JOVANA 110.1 ONYCHOMYCOSIS 05/23/2012 TAN DDS, JOVANA 724.5 BACKACHE UNSPECIFIED 05/23/2012 TAN DDS, JOVANA 110.1 ONYCHOMYCOSIS 05/23/2012 TAN DDS, JOVANA 724.5 BACKACHE UNSPECIFIED 05/23/2012 YULY SCIENTIST IMMUNOLOGY, JYOTSNA S 110.1 ONYCHOMYCOSIS 05/23/2012 YULY SCIENTIST IMMUNOLOGY, JYOTSNA S 724.5 BACKACHE UNSPECIFIED 05/23/2012 GARCIA SCIENTIST IMMUNOLOGY, RADHIKA D 110.1 ONYCHOMYCOSIS 05/23/2012 GARCIA SCIENTIST IMMUNOLOGY, RADHIKA D 724.5 BACKACHE UNSPECIFIED 05/23/2012 JUDY DDS, CLARIBEL D 110.1 ONYCHOMYCOSIS 05/23/2012 JUDY DDS, CLARIBEL D 724.5 BACKACHE UNSPECIFIED 05/23/2012 JOSE SCIENTIST IMMUNOLOGY, RADHIKA D 110.1 ONYCHOMYCOSIS 05/23/2012 JOSE SCIENTIST IMMUNOLOGY, RADHIKA D 724.5 BACKACHE UNSPECIFIED 09/15/2012 DAMARIS LUTHER FACC, JED FACP CCDS Ot 250.00 DIAB RANDALL WO COMPL, TYPE II OR UNSPEC TY 09/15/2012 JED OCAMPO MD, FACC FACP CCDS Ot 272.4 HYPERLIPIDEMIA NEC/NOS 09/15/2012 JED OCAMPO MD, FACC FACP CCDS Ot 414.01 CORONARY ATHEROSCLEROSIS OF [place] CORON 09/15/2012 JED OCAMPO MD, FACC FACP [...] K V03.82 PPV23 (PNEUMOVAX) DX 01/22/2013 YULY SCIENTIST IMMUNOLOGY, JYOTSNA S 530.81 GERD 01/22/2013 YULY SCIENTIST IMMUNOLOGY, JYOTSNA S 703.0 INGROWING NAIL 01/22/2013 YULY SCIENTIST IMMUNOLOGY, JYOTSNA S V03.82 PPV23 (PNEUMOVAX) DX 01/22/2013 YULY SCIENTIST IMMUNOLOGY, JYOTSNA S 530.81 GERD 01/22/2013 YULY SCIENTIST IMMUNOLOGY, JYOTSNA S 703.0 INGROWING NAIL 01/22/2013 YULY SCIENTIST IMMUNOLOGY, JYOTSNA S V03.82 PPV23 (PNEUMOVAX) DX 01/22/2013 YULY SCIENTIST IMMUNOLOGY, JYOTSNA S 530.81 GERD 01/22/2013 YULY SCIENTIST IMMUNOLOGY, JYOTSNA S 703.0 INGROWING NAIL 01/22/2013 YULY SCIENTIST IMMUNOLOGY, JYOTSNA S V03.82 PPV23 (PNEUMOVAX) DX 01/22/2013 GARCIA SCIENTIST IMMUNOLOGY, DOMINIQUE R 530.81 GERD 01/22/2013 GARCIA SCIENTIST IMMUNOLOGY, DOMINIQUE R 703.0 INGROWING NAIL 01/22/2013 GARCIA SCIENTIST IMMUNOLOGY, DOMINIQUE R V03.82 PPV23 (PNEUMOVAX) DX 01/22/2013 YULY SCIENTIST IMMUNOLOGY, JYOTSNA S 530.81 GERD 01/22/2013 YULY SCIENTIST IMMUNOLOGY, JYOTSNA S 703.0 INGROWING NAIL 01/22/2013 YULY SCIENTIST IMMUNOLOGY, JYOTSNA S V03.82 PPV23 (PNEUMOVAX) DX 01/22/2013 RICO DO, COSME K 530.81 GERD 01/22/2013 RICO DO, COSME K 703.0 INGROWING NAIL 01/22/2013 RICO DO, COSME K V03.82 PPV23 (PNEUMOVAX) DX 01/22/2013 YULY SCIENTIST IMMUNOLOGY, JYOTSNA S 530.81 GERD 01/22/2013 YULY SCIENTIST IMMUNOLOGY, JYOTSNA S 703.0 INGROWING NAIL 01/22/2013 YULY SCIENTIST IMMUNOLOGY, JYOTSNA S V03.82 PPV23 (PNEUMOVAX) DX 01/22/2013 RISHABH SCIENTIST IMMUNOLOGY, YARELIS A 530.81 GERD 01/22/2013 RISHABH SCIENTIST IMMUNOLOGY, YARELIS A 703.0 INGROWING NAIL 01/22/2013 RISHABH SCIENTIST IMMUNOLOGY, YARELIS A V03.82 PPV23 (PNEUMOVAX) DX 01/22/2013 YULY SCIENTIST IMMUNOLOGY, JYOTSNA S 530.81 GERD 01/22/2013 YULY SCIENTIST IMMUNOLOGY, JYOTSNA S 703.0 INGROWING NAIL 01/22/2013 YULY SCIENTIST IMMUNOLOGY, JYOTSNA S V03.82 PPV23 (PNEUMOVAX) DX 01/22/2013 RICO DO, COSME K 530.81 GERD 01/22/2013 RICO DO, COSME K 703.0 INGROWING NAIL 01/22/2013 RICO DO, COSME K V03.82 PPV23 (PNEUMOVAX) DX 01/22/2013 RISHABH SCIENTIST IMMUNOLOGY, YARELIS A 530.81 GERD 01/22/2013 RISHABH SCIENTIST IMMUNOLOGY, YARELIS A 703.0 INGROWING NAIL 01/22/2013 RISHABH SCIENTIST IMMUNOLOGY, YARELIS A V03.82 PPV23 (PNEUMOVAX) DX 01/22/2013 [...] AMOR JYOTSNA S 530.81 GERD 01/22/2013 YULY SCIENTIST IMMUNOLOGY, JYOTSNA S 703.0 INGROWING NAIL 01/22/2013 YULY SCIENTIST IMMUNOLOGY, JYOTSNA S V03.82 PPV23 (PNEUMOVAX) DX 01/22/2013 RADHIKA GARCIA [...] DO 465.9 UPPER RESPIRATORY INFECTION 04/25/2013 YULY SCIENTIST IMMUNOLOGY, JYOTSNA S 465.9 UPPER RESPIRATORY INFECTION 04/25/2013 RISHABH SCIENTIST IMMUNOLOGY, YARELIS A 465.9 UPPER RESPIRATORY INFECTION 04/25/2013 YULY SCIENTIST IMMUNOLOGY, JYOTSNA S 465.9 UPPER RESPIRATORY INFECTION 04/25/2013 RICO DO, COSME K 465.9 UPPER RESPIRATORY INFECTION 04/25/2013 RISHABH SCIENTIST IMMUNOLOGY, YARELIS A 465.9 UPPER RESPIRATORY INFECTION 04/25/2013 R[place] DO, COSME K 465.9 UPPER RESPIRATORY INFECTION 04/25/2013 TAN DDS, JOVANA 465.9 UPPER RESPIRATORY INFECTION 04/25/2013 TAN DDS, JOVANA 465.9 UPPER RESPIRATORY INFECTION 04/25/2013 TAN DDS, JOVANA 465.9 UPPER RESPIRATORY INFECTION 04/25/2013 YULY SCIENTIST IMMUNOLOGY, JYOTSNA S 465.9 UPPER RESPIRATORY INFECTION 04/25/2013 RADHIKA GARCIA APRN D 465.9 UPPER RESPIRATORY INFECTION 04/25/2013 JUDY DDS, CLARIBEL D 465.9 UPPER RESPIRATORY INFECTION 04/25/2013 JOSE SCIENTIST IMMUNOLOGYRADHIKA D 465.9 UPPER RESPIRATORY INFECTION 05/23/2013 YULY FELDMANN, JYOTSNA S 414.00 CAD 05/23/2013 YULY FELDMANN, JYOTSNA S 564.1 IRRITABLE BOWEL SYNDROME 05/23/2013 YULY SCIENTIST IMMUNOLOGY, JYOTSNA S 414.00 CAD 05/23/2013 YULY SCIENTIST IMMUNOLOGY, JYOTSNA S 564.1 IRRITABLE BOWEL SYNDROME 05/23/2013 RADHA FELDMANN DOMINIQUE R 414.00 CAD 05/23/2013 RADHA SCIENTIST IMMUNOLOGY, DOMINIQUE R 564.1 IRRITABLE BOWEL SYNDROME 05/23/2013 YULY SCIENTIST IMMUNOLOGY, JYOTSNA S 414.00 CAD 05/23/2013 YULY SCIENTIST IMMUNOLOGY, JYOTSNA S 564.1 IRRITABLE BOWEL SYNDROME 05/23/2013 RICO DO COSME K 414.00 CAD 05/23/2013 RICO DO, COSME K 564.1 IRRITABLE BOWEL SYNDROME 05/23/2013 YULY SCIENTIST IMMUNOLOGY, JYOTSNA S 414.00 CAD 05/23/2013 YULY FELDMANN, JYOTSNA S 564.1 IRRITABLE BOWEL SYNDROME 05/23/2013 RISHABH SCIENTIST IMMUNOLOGY, YARELIS A 414.00 CAD 05/23/2013 RISHABH SCIENTIST IMMUNOLOGY, YARELIS A 564.1 IRRITABLE BOWEL SYNDROME 05/23/2013 YULY AMOR, JYOTSNA S 414.00 CAD 05/23/2013 YULY AMOR, JYOTSNA S 564.1 IRRITABLE BOWEL SYNDROME 05/23/2013 RICO DO, COSME K 414.00 CAD 05/23/2013 RICO DO, COSME K 564.1 IRRITABLE BOWEL SYNDROME 05/23/2013 RISHABH SCIENTIST IMMUNOLOGY, YARELIS A 414.00 CAD 05/23/2013 RISHABH SCIENTIST IMMUNOLOGY, YARELIS A 564.1 IRRITABLE BOWEL SYNDROME 05/23/2013 [...] COSME K 466.0 BRONCHITIS, ACUTE 06/01/2013 YULY SCIENTIST IMMUNOLOGY, JYOTSNA S 466.0 BRONCHITIS, ACUTE 06/01/2013 RISHABH SCIENTIST IMMUNOLOGY, YARELIS A 466.0 BRONCHITIS, ACUTE 06/01/2013 YULY SCIENTIST IMMUNOLOGY, JYOTSNA S 466.0 BRONCHITIS, ACUTE 06/01/2013 RICO DO, COSME K 466.0 BRONCHITIS, ACUTE 06/01/2013 RISHABH SCIENTIST IMMUNOLOGY, YARELIS A 466.0 BRONCHITIS, ACUTE 06/01/2013 RICO DO, COSME K 466.0 BRONCHITIS, ACUTE 06/01/2013 TAN DDS, JOVANA 466.0 BRONCHITIS, ACUTE 06/01/2013 TAN DDS, JOVANA 466.0 BRONCHITIS, ACUTE 06/01/2013 TAN DDS, JOVANA 466.0 BRONCHITIS, ACUTE 06/01/2013 YULY SCIENTIST IMMUNOLOGY, JYOTSNA S 466.0 BRONCHITIS, ACUTE 06/01/2013 RADHIKA GARCIA APRN 466.0 BRONCHITIS, ACUTE 06/01/2013 JUDY DDS, CLARIBEL D 466.0 BRONCHITIS, ACUTE 06/01/2013 RADHIKA GARCIA APRN 466.0 BRONCHITIS, ACUTE 06/07/2013 YULY SCIENTIST IMMUNOLOGY, JYOTSNA S 786.2 COUGH 06/07/2013 RICO DO, COSME K 786.2 COUGH 06/07/2013 YULY SCIENTIST IMMUNOLOGY, JYOTSNA S 786.2 COUGH 06/07/2013 RISHABH SCIENTIST IMMUNOLOGY, YARELIS A 786.2 COUGH 06/07/2013 YULY SCIENTIST IMMUNOLOGY, JYOTSNA S 786.2 COUGH 06/07/2013 RICO DO, COSME K 786.2 COUGH 06/07/2013 RISHABH SCIENTIST IMMUNOLOGY, YARELIS A 786.2 COUGH 06/07/2013 RICO DO, COSME K 786.2 COUGH 06/07/2013 TAN DDS, JOVANA 786.2 COUGH 06/07/2013 TAN DDS, JOVANA 786.2 COUGH 06/07/2013 TAN DDS, JOVANA 786.2 COUGH 06/07/2013 YULY SCIENTIST IMMUNOLOGY, JYOTSNA S 786.2 COUGH 06/07/2013 RADHIKA GARCIA APRN 786.2 COUGH 06/07/2013 JUDY DDS, CLARIBEL D 786.2 COUGH 06/07/2013 GARCIA SCIENTIST IMMUNOLOGY, RADHIKA D 786.2 COUGH 07/20/2013 RICO DO, COSME K 272.4 HYPERLIPIDEMIA 07/20/2013 RICO DO, COSME K 401.9 HYPERTENSION, UNSPECIFIED ESSENTIAL 07/20/2013 RICO DO, COSME K 785.9 CAROTID BRUIT 07/20/2013 YULY SCIENTIST IMMUNOLOGY, JYOTSNA S 272.4 HYPERLIPIDEMIA 07/20/2013 YULY SCIENTIST IMMUNOLOGY, JYOTSNA S 401.9 HYPERTENSION, UNSPECIFIED ESSENTIAL 07/20/2013 YULY SCIENTIST IMMUNOLOGY, JYOTSNA S 785.9 CAROTID BRUIT 07/20/2013 RISHABH SCIENTIST IMMUNOLOGY, YARELIS A 272.4 HYPERLIPIDEMIA 07/20/2013 RISHABH SCIENTIST IMMUNOLOGY, YARELIS A 401.9 HYPERTENSION, UNSPECIFIED ESSENTIAL 07/20/2013 RISHABH SCIENTIST IMMUNOLOGY, YARELIS A 785.9 CAROTID BRUIT 07/20/2013 YULY SCIENTIST IMMUNOLOGY, JYOTSNA S 272.4 HYPERLIPIDEMIA 07/20/2013 YULY SCIENTIST IMMUNOLOGY, JYOTSNA S 401.9 HYPERTENSION, UNSPECIFIED ESSENTIAL 07/20/2013 YULY SCIENTIST IMMUNOLOGY, JYOTSNA S 785.9 CAROTID BRUIT 07/20/2013 RICO DO, COSME K 272.4 HYPERLIPIDEMIA 07/20/2013 RICO DO, COSME K 401.9 HYPERTENSION, UNSPECIFIED ESSENTIAL 07/20/2013 RICO DO, COSME K 785.9 CAROTID BRUIT 07/20/2013 RISHABH SCIENTIST IMMUNOLOGY, YARELIS A 272.4 HYPERLIPIDEMIA 07/20/2013 RISHABH SCIENTIST IMMUNOLOGY, YARELIS A 401.9 HYPERTENSION, UNSPECIFIED ESSENTIAL 07/20/2013 RISHABH SCIENTIST IMMUNOLOGY, YARELIS A 785.9 CAROTID BRUIT 07/20/2013 RICO [...] COLON CANCER 09/26/2013 YARELIS KEATING APRN V72.31 OPERATIONS SUPPORT PROFESSIONALS EXAM, ROUTINE 09/26/2013 YARELIS KEATING APRN V76.10 BREAST CANCER SCREENING 09/26/2013 YARELIS KEATING APRN V76.51 COLON CANCER SCREENING 09/26/2013 YARELIS KEATING APRN V82.81 SPECIAL SCREENING FOR OSTEOPOROSIS 09/26/2013 JYOTSNA EMERY APRN S V16.0 FAMILY HX COLON CANCER 09/26/2013 YULY SCIENTIST IMMUNOLOGY, JYOTSNA S V72.31 OPERATIONS SUPPORT PROFESSIONALS EXAM, ROUTINE 09/26/2013 YULY TJ AMORNDA S V76.10 BREAST CANCER SCREENING 09/26/2013 YULY TJ AMORNDA S V76.51 COLON CANCER SCREENING 09/26/2013 YULY TJ AMORNDA S V82.81 SPECIAL SCREENING FOR OSTEOPOROSIS 09/26/2013 ENRIQUE [place] DOA K V16.0 FAMILY HX COLON CANCER 09/26/2013 ENRIQUE [place] DOA K V72.31 OPERATIONS SUPPORT PROFESSIONALS EXAM, ROUTINE 09/26/2013 ENRIQUE [place] DOA K V76.10 BREAST CANCER SCREENING 09/26/2013 RICO ENRIQUE SPENCERA K V76.51 COLON CANCER SCREENING 09/26/2013 RICO ENRIQUE SPENCERA K V82.81 SPECIAL SCREENING FOR OSTEOPOROSIS 09/26/2013 RISHABHYARELIS Gomez APRN A V16.0 FAMILY HX COLON CANCER 09/26/2013 RISHABHYARELIS BAUTISTA APRN A V72.31 OPERATIONS SUPPORT PROFESSIONALS EXAM, ROUTINE 09/26/2013 RISHABHYARELIS BAUTISTA APRN A V76.10 BREAST CANCER SCREENING 09/26/2013 RISHABHYARELIS Gomez APRN A V76.51 COLON CANCER SCREENING 09/26/2013 RISHABHYARELIS Gomez APRN A V82.81 SPECIAL SCREENING FOR OSTEOPOROSIS 09/26/2013 ENRIQUE [place] DOA K V16.0 FAMILY HX COLON CANCER 09/26/2013 ENRIQUE [place] DOA K V72.31 OPERATIONS SUPPORT PROFESSIONALS EXAM, ROUTINE 09/26/2013 ENRIQUE [place] DOA K V76.10 BREAST CANCER SCREENING 09/26/2013 ENRIQUE [place] DOA K V76.51 COLON CANCER SCREENING 09/26/2013 RICO ENRIQUE SPENCERA K V82.81 SPECIAL SCREENING FOR OSTEOPOROSIS 09/26/2013 TAN DDSJOVANA V16.0 FAMILY HX COLON CANCER 09/26/2013 TAN DDSJOVANA V72.31 OPERATIONS SUPPORT PROFESSIONALS EXAM, ROUTINE 09/26/2013 TAN DDSJOVANA V76.10 BREAST CANCER SCREENING 09/26/2013 TAN DDS, JOVANA V76.51 COLON CANCER SCREENING 09/26/2013 TAN DDS, JOVANA V82.81 SPECIAL SCREENING FOR OSTEOPOROSIS 09/26/2013 TAN DDS, JOVANA V16.0 FAMILY HX COLON CANCER 09/26/2013 TAN DDS, JOVANA V72.31 OPERATIONS SUPPORT PROFESSIONALS EXAM, ROUTINE 09/26/2013 TAN DDS, JOVANA V76.10 BREAST CANCER SCREENING 09/26/2013 TAN DDS, JOVANA V76.51 COLON CANCER SCREENING 09/26/2013 TAN DDS, JOVANA V82.81 SPECIAL SCREENING FOR OSTEOPOROSIS 09/26/2013 TAN DDS, JOVANA V16.0 FAMILY HX COLON CANCER 09/26/2013 TAN DDS, JOVANA V72.31 OPERATIONS SUPPORT PROFESSIONALS EXAM, ROUTINE 09/26/2013 TAN DDS, JOVANA V76.10 BREAST CANCER SCREENING 09/26/2013 TAN DDS, JOVANA V76.51 COLON CANCER SCREENING 09/26/2013 TAN DDS, JOVANA V82.81 SPECIAL SCREENING FOR OSTEOPOROSIS 09/26/2013 RADHA EMERY APRNA S V16.0 FAMILY HX COLON CANCER 09/26/2013 RADHA EMERY APRNA S V72.31 OPERATIONS SUPPORT PROFESSIONALS EXAM, ROUTINE 09/26/2013 TJ EEMRY APRNNDA S V76.10 BREAST CANCER SCREENING 09/26/2013 TJ EMERY APRNNDA S V76.51 COLON CANCER SCREENING 09/26/2013 RADHA EMERY APRNA S V82.81 SPECIAL SCREENING FOR OSTEOPOROSIS 09/26/2013 RADHIKA GARCIA APRN V16.0 FAMILY HX COLON CANCER 09/26/2013 RADHIKA GARCIA APRN V72.31 OPERATIONS SUPPORT PROFESSIONALS EXAM, ROUTINE 09/26/2013 RADHIKA GARCIA APRN V76.10 BREAST CANCER SCREENING 09/26/2013 RADHIKA GARCIA APRN V76.51 COLON CANCER SCREENING 09/26/2013 RADHIKA GARCIA APRN V82.81 SPECIAL SCREENING FOR OSTEOPOROSIS 09/26/2013 JUDY DDCLARIBEL Sinclair V16.0 FAMILY HX COLON CANCER 09/26/2013 JUDY DDS, CLARIBEL Jarrett V72.31 OPERATIONS SUPPORT PROFESSIONALS EXAM, ROUTINE 09/26/2013 JUDY FELTONSCLARIBEL V76.10 BREAST CANCER SCREENING 09/26/2013 JUDY DDS, CLARIBEL Jarrett V76.51 COLON CANCER SCREENING 09/26/2013 CLARIBEL KIM DDS V82.81 SPECIAL SCREENING FOR OSTEOPOROSIS 09/26/2013 RADHIKA GARCIA APRN V16.0 FAMILY HX COLON CANCER 09/26/2013 RADHIKA GARCIA APRN V72.31 OPERATIONS SUPPORT PROFESSIONALS EXAM, ROUTINE 09/26/2013 RADHIKA GARCIA APRN V76.10 BREAST CANCER SCREENING 09/26/2013 RADHIKA GARCIA APRN V76.51 COLON CANCER SCREENING 09/26/2013 RADHIKA GARCIA APRN V82.81 SPECIAL SCREENING FOR OSTEOPOROSIS 10/11/2013 KACIE HARRINGTON MD Ot 250.00 DIAB RANDALL WO COMPL, TYPE II OR UNSPEC TY 10/11/2013 KACIE HARRINGTON MD Ot 414.01 CORONARY ATHEROSCLEROSIS OF [place] CORON 10/11/2013 KACIE HARRINGTON MD Ot 786.50 CHEST PAIN NOS 10/11/2013 KACIE HARRINGTON MD Ot V45.82 PERCUTANEOUS TRANSLUM CORON ANGIOPLASTY 10/11/2013 KACIE HARRINGTON MD Ot V58.67 LONG-TERM (CURRENT) USE OF INSULIN 10/11/2013 KACIE HARRINGTON MD Ot V58.69 OT MED,LT,CURRENT USE 12/13/2013 COSME RICO DO 564.1 IRRITABLE BOWEL SYNDROME 12/13/2013 CSOME RICO DO 787.91 DIARRHEA 12/13/2013 TAN DDS, [...] V58.69 09/22/2014 Ot V72.84 09/22/2014 DARLINE TRAYLOR SECURED ENTRANCE MONITOR Ot 786.05 09/22/2014 DARLINE TRAYLOR SECURED ENTRANCE MONITOR Ot 786.05 09/22/2014 DAMARIS LUTHER FACGino, JED [...] AQUILINO K Ot 785.9 09/22/2014 YARELIS KEATING SCIENTIST IMMUNOLOGY Ot V16.0 09/22/2014 YARELIS KEATING SCIENTIST IMMUNOLOGY Ot V72.31 09/22/2014 SHERON KEATINGIDI Laila SCIENTIST IMMUNOLOGY Ot V76.12 09/22/2014 YARELIS KEATING SCIENTIST IMMUNOLOGY Ot V76.51 09/22/2014 YARELIS KEATING SCIENTIST IMMUNOLOGY Ot V82.81 11/05/2014 Ot 414.00 11/05/2014 Ot 786.50 11/05/2014 Ot 414.01 11/05/2014 Ot 427.9 11/05/2014 Ot 786.50 11/05/2014 Ot 593.9 11/05/2014 Ot 414.01 11/05/2014 Ot V58.69 11/05/2014 Ot V72.84 11/05/2014 DARLINE TRAYLOR SECURED ENTRANCE MONITOR Ot 786.05 11/05/2014 DARLINE TRAYLOR SECURED ENTRANCE MONITOR Ot 786.05 11/05/2014 DAMARIS LUTHER FACC, JED [...] K Ot 785.9 11/05/2014 RISHABH YARELIS A SCIENTIST IMMUNOLOGY Ot V16.0 11/05/2014 RISHABH, YARELIS A SCIENTIST IMMUNOLOGY Ot V72.31 11/05/2014 RISHABH YARELIS A SCIENTIST IMMUNOLOGY Ot V76.12 11/05/2014 RISHABH, YARELIS A SCIENTIST IMMUNOLOGY Ot V76.51 11/05/2014 RISHABH, YARELIS A SCIENTIST IMMUNOLOGY Ot V82.81 11/05/2014 Ot 414.00 11/05/2014 Ot 786.50 11/05/2014 Ot 414.01 11/05/2014 Ot 427.9 11/05/2014 Ot 786.50 11/05/2014 Ot 593.9 11/05/2014 Ot 414.01 11/05/2014 Ot V58.69 11/05/2014 Ot V72.84 11/05/2014 DARLINE TRAYLOR SECURED ENTRANCE MONITOR Ot 786.05 11/05/2014 DARLINE TRAYLOR SECURED ENTRANCE MONITOR Ot 786.05 11/05/2014 DAMARIS LUTHER FACC, ALI [...] PA, AQUILINO K Ot 785.9 11/05/2014 RISHABHYARELIS SCIENTIST IMMUNOLOGY Ot V16.0 11/05/2014 RISHABHSHERONYARELIS A SCIENTIST IMMUNOLOGY Ot V72.31 11/05/2014 RISHABHSHERONYARELIS A SCIENTIST IMMUNOLOGY Ot V76.12 11/05/2014 RISHABH YARELIS Laila SCIENTIST IMMUNOLOGY Ot V76.51 11/05/2014 RISHABH YARELIS Laila SCIENTIST IMMUNOLOGY Ot V82.81 11/06/2014 Ot 414.00 11/06/2014 Ot 786.50 11/06/2014 Ot 414.01 11/06/2014 Ot 427.9 11/06/2014 Ot 786.50 11/06/2014 Ot 593.9 11/06/2014 Ot 414.01 11/06/2014 Ot V58.69 11/06/2014 Ot V72.84 11/06/2014 DARLINE TRAYLOR SECURED ENTRANCE MONITOR Ot 786.05 11/06/2014 DARLINE TRAYLOR SECURED ENTRANCE MONITOR Ot 786.05 11/06/2014 DAMARIS LUTHER FAC, ALI [...] AQUILINO K Ot 250.00 11/06/2014 NIEVES-ROBB PA, AQUILINO K Ot 272.4 11/06/2014 NIEVES-ROBB PA, AQUILINO K Ot 401.9 11/06/2014 NIEVES-ROBB PA, AQUILINO K Ot 414.00 11/06/2014 NIEVES-ROBB PA, AQUILINO K Ot 785.9 11/06/2014 RISHABH, YARELIS A SCIENTIST IMMUNOLOGY Ot V16.0 11/06/2014 RISHABH, YARELIS A SCIENTIST IMMUNOLOGY Ot V72.31 11/06/2014 RISHABH, YARELIS A SCIENTIST IMMUNOLOGY Ot V76.12 11/06/2014 RISHABH, YARELIS A SCIENTIST IMMUNOLOGY Ot V76.51 11/06/2014 RISHABH, YARELIS A SCIENTIST IMMUNOLOGY Ot V82.81 11/06/2014 NIEVES-ROBB PA, AQUILINO K Ot 272.4 11/06/2014 NIEVES-ROBB PA, AQUILINO K Ot 401.1 11/06/2014 NIEVES-RBOB PA, AQUILINO K Ot 414.9 11/06/2014 NIEVES-ROBB [...] 03/17/2015 Ot V72.84 03/17/2015 KYMBERLY DARLINE Nadia SECURED ENTRANCE MONITOR Ot 786.05 03/17/2015 DARLINE TRAYLOR SECURED ENTRANCE MONITOR Ot 786.05 03/17/2015 DAMARIS LUTHER FACC, ALI [...] AQUILINO K Ot 785.9 03/17/2015 YARELIS KEATING SCIENTIST IMMUNOLOGY Ot V16.0 03/17/2015 YARELIS KEATING SCIENTIST IMMUNOLOGY Ot V72.31 03/17/2015 YARELIS KEATING SCIENTIST IMMUNOLOGY Ot V76.12 03/17/2015 YARELIS KEATING SCIENTIST IMMUNOLOGY Ot V76.51 03/17/2015 YARELIS KEATING SCIENTIST IMMUNOLOGY Ot V82.81 03/17/2015 DMITRY PA, AQUILINO K [...] V58.69 06/18/2015 Ot V72.84 06/18/2015 DARLINE TRAYLOR SECURED ENTRANCE MONITOR Ot 786.05 06/18/2015 DARLINE TRAYLOR SECURED ENTRANCE MONITOR Ot 786.05 06/18/2015 DAMARIS LUTHER FAC, ALI [...] K Ot 785.9 06/18/2015 YARELIS KEATING A SCIENTIST IMMUNOLOGY Ot V16.0 06/18/2015 RISHABH YARELIS A SCIENTIST IMMUNOLOGY Ot V72.31 06/18/2015 RISHABH YARELIS A SCIENTIST IMMUNOLOGY Ot V76.12 06/18/2015 RISHABH YARELIS A SCIENTIST IMMUNOLOGY Ot V76.51 06/18/2015 RISHABH YARELIS A SCIENTIST IMMUNOLOGY Ot V82.81 06/18/2015 DMITRY PA, AQUILINO K [...] K Ot I25.10 ATHSCL HEART DISEASE OF [place] CORONARY 08/27/2015 NIEVES-AQUILINO LAWTON Ot I25.10 ATHSCL HEART DISEASE OF [place] CORONARY 08/29/2015 AQUILINO MUKHERJEE Ot I25.10 ATHSCL HEART DISEASE OF [place] CORONARY 08/29/2015 AQUILINO MUKHERJEE Ot E78.2 MIXED HYPERLIPIDEMIA 08/29/2015 AQUILINO MUKHERJEE Ot I25.10 ATHSCL HEART DISEASE OF [place] CORONARY 08/29/2015 AQUILINO MUKHERJEE Ot I34.0 NONRHEUMATIC MITRAL (VALVE) INSUFFICIENC 08/29/2015 AQUILINO MUKHERJEE Ot I65.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 09/05/2015 AQUILINO MUKHERJEE Ot I25.10 ATHSCL HEART DISEASE OF [place] CORONARY 09/10/2015 AQUILINO MUKHERJEE Ot E78.2 MIXED HYPERLIPIDEMIA 09/10/2015 AQUILINO MUKHERJEE Ot I25.10 ATHSCL HEART DISEASE OF [place] CORONARY 09/10/2015 AQUILINO MUKHERJEE Ot I34.0 NONRHEUMATIC MITRAL (VALVE) INSUFFICIENC 09/10/2015 AQUILINO MUKHERJEE Ot I65.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 01/13/2016 JYOTSNA EMERY Ot G47.33 OBSTRUCTIVE SLEEP APNEA (ADULT) (PEDIATR 01/13/2016 JYOTSNA EMERY Ot G47.33 OBSTRUCTIVE SLEEP APNEA (ADULT) (PEDIATR 02/09/2016 AQUILINO MUKHERJEE Ot I25.10 ATHSCL HEART DISEASE OF [place] CORONARY 02/12/2016 Ot 414.00 CORON ATHEROSCLER NOS TYPE VESSEL, NATIV 02/12/2016 Ot 786.50 CHEST PAIN NOS 02/12/2016 Ot 414.01 CORONARY ATHEROSCLEROSIS OF [place] CORON 02/12/2016 Ot 427.9 CARDIAC DYSRHYTHMIA NOS 02/12/2016 Ot 786.50 CHEST PAIN NOS 02/12/2016 Ot 593.9 RENAL URETERAL DIS NOS 02/12/2016 Ot 414.01 CORONARY ATHEROSCLEROSIS OF [place] CORON 02/12/2016 Ot V58.69 OT MED,LT, CURRENT USE 02/12/2016 Ot V72.84 EXAM PRE- OPERATIVE NOS 02/12/2016 DARLINE TRAYLOR SECURED ENTRANCE MONITOR Ot 786.05 SHORTNESS OF BREATH 02/12/2016 DARLINE TRAYLOR SECURED ENTRANCE MONITOR Ot 786.05 SHORTNESS OF BREATH 02/12/2016 DAMARIS [...] 272.4 HYPERLIPIDEMIA NEC/NOS 02/12/2016 AQUILINO MUKHERJEE Ot 401.9 HYPERTENSION NOS 02/12/2016 AQUILINO MUKHERJEE Ot 414.00 CORON ATHEROSCLER NOS TYPE VESSEL, NATIV 02/12/2016 AQUILINO MUKHERJEE Ot 785.9 CARDIOVAS SYS SYMP NEC 02/12/2016 YARELIS KEATING APRN Ot V16.0 FAMILY HX-GI MALIGNANCY 02/12/2016 YARELIS KEATING APRN Ot V72.31 ROUTINE GYNECOLOGICAL EXAMINATION 02/12/2016 YARELIS KEATING APRN Ot V76.12 OTH SCREEN MAMMO-MALIGN NEOPLASM OF [place] 02/12/2016 YARELIS KEATING SCIENTIST IMMUNOLOGY Ot V76.51 SCREEN MAL NEOP-COLON 02/12/2016 YARELIS KEATING SCIENTIST IMMUNOLOGY Ot V82.81 SCREENING FOR OSTEOPOROSIS 02/12/2016 AQUILINO [...] MUKHERJEE Ot I25.10 ATHSCL HEART DISEASE OF [place] CORONARY 02/12/2016 AQUILINO MUKHERJEE Ot E78.2 MIXED HYPERLIPIDEMIA 02/12/2016 AQUILINO MUKHERJEE Ot I25.10 ATHSCL HEART DISEASE OF [place] CORONARY 02/12/2016 AQUILINO MUKHERJEE Ot I34.0 NONRHEUMATIC MITRAL (VALVE) INSUFFICIENC 02/12/2016 AQUILINO MUKHERJEE Ot I65.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 02/12/2016 AQUILINO MUKHERJEE Ot E78.2 MIXED HYPERLIPIDEMIA 02/12/2016 AQUILINO MUKHERJEE Ot I25.10 ATHSCL HEART DISEASE OF [place] CORONARY 02/12/2016 AQUILINO MUKHERJEE Ot I34.0 NONRHEUMATIC MITRAL (VALVE) INSUFFICIENC 02/12/2016 AQUILINO MUKHERJEE Ot I65.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 02/26/2016 AQUILINO MUKHERJEE Ot E78.2 MIXED HYPERLIPIDEMIA 02/26/2016 AQUILINO MUKHERJEE Ot I25.10 ATHSCL HEART DISEASE OF [place] CORONARY 02/26/2016 AQUILINO MUKHERJEE Ot I34.0 NONRHEUMATIC MITRAL (VALVE) INSUFFICIENC 02/26/2016 AQUILINO MUKHERJEE Ot I65.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 03/05/2016 Ot 414.00 CORON ATHEROSCLER NOS TYPE VESSEL, NATIV 03/05/2016 Ot 786.50 CHEST PAIN NOS 03/05/2016 Ot 414.01 CORONARY ATHEROSCLEROSIS OF [place] CORON 03/05/2016 Ot 427.9 CARDIAC DYSRHYTHMIA NOS 03/05/2016 Ot 786.50 CHEST PAIN NOS 03/05/2016 Ot 593.9 RENAL URETERAL DIS NOS 03/05/2016 Ot 414.01 CORONARY ATHEROSCLEROSIS OF [place] CORON 03/05/2016 Ot V58.69 OT MED,LT, CURRENT USE 03/05/2016 Ot V72.84 EXAM PRE- OPERATIVE NOS 03/05/2016 DARLINE TRAYLOR SECURED ENTRANCE MONITOR Ot 786.05 SHORTNESS OF BREATH 03/05/2016 DARLINE TRAYLOR SECURED ENTRANCE MONITOR Ot 786.05 SHORTNESS OF BREATH 03/05/2016 DAMARIS [...] V16.0 FAMILY HX-GI MALIGNANCY 03/05/2016 YARELIS KEATING SCIENTIST IMMUNOLOGY Ot V72.31 ROUTINE GYNECOLOGICAL EXAMINATION 03/05/2016 YARELIS KEATING SCIENTIST IMMUNOLOGY Ot V76.12 OTH SCREEN MAMMO-MALIGN NEOPLASM OF [place] 03/05/2016 YARELIS KEATING SCIENTIST IMMUNOLOGY Ot V76.51 SCREEN MAL NEOP-COLON 03/05/2016 YARELIS [...] MUKHERJEE Ot I25.10 ATHSCL HEART DISEASE OF [place] CORONARY 03/05/2016 AQUILINO MUKHERJEE Ot E78.2 MIXED HYPERLIPIDEMIA 03/05/2016 AQUILINO MUKHERJEE Ot I25.10 ATHSCL HEART DISEASE OF [place] CORONARY 03/05/2016 AQUILINO MUKHERJEE Ot I34.0 NONRHEUMATIC MITRAL (VALVE) INSUFFICIENC 03/05/2016 AQUILINO MUKHERJEE Ot I65.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 03/05/2016 JOVANA BANDA MD Ot E11.9 TYPE 2 DIABETES MELLITUS WITHOUT COMPLIC 03/05/2016 JOVANA BANDA MD, Ot M53.3 SACROCOCCYGEAL DISORDERS, NOT ELSEWHERE 03/05/2016 JOVANA BANDA MD Ot Z79.4 BASE ENGINEER (CURRENT) USE OF INSULIN 03/17/2016 JOVANA BANDA MD, Ot E11.9 TYPE 2 DIABETES MELLITUS WITHOUT COMPLIC 03/17/2016 JOVANA BANDA MD, Ot M53.3 SACROCOCCYGEAL DISORDERS, NOT ELSEWHERE 03/17/2016 JOVANA BANDA MD, Ot Z79.4 RESIDENTIAL (CURRENT) USE OF INSULIN 04/21/2016 SHALA SPENCER [...] 04/21/2016 SHALA DO KATHY K Ot Z79.4 RESIDENTIAL (CURRENT) USE OF INSULIN 04/21/2016 SHALA DO KATHY K Ot Z79.84 RESIDENTIAL (CURRENT) USE OF ORAL HYPOGLYC 04/21/2016 SHALA DO KATHY K Ot Z79.899 OTHER RESIDENTIAL (CURRENT) DRUG THERAPY 04/21/2016 SHALAAnup SPENCER KATHY K Ot Z95.5 PRESENCE OF CORONARY ANGIOPLASTY IMPLANT 05/07/2016 NAMITA ANDRADE Ot E11.9 TYPE 2 DIABETES MELLITUS WITHOUT COMPLIC 05/07/2016 NAMITA ANDRADE Ot I10 ESSENTIAL (PRIMARY) HYPERTENSION 05/07/2016 NAMITA ANDRADE Ot I25.10 ATHSCL HEART DISEASE OF [place] CORONARY 05/07/2016 NAMITA ANDRADE Ot I70.0 ATHEROSCLEROSIS OF [place] 05/07/2016 NAMITA ANDRADE Ot K56.41 FECAL IMPACTION 05/07/2016 NAMITA ANDRADE Ot K59.00 CONSTIPATION, UNSPECIFIED 05/07/2016 NAMITA ANDRADE Ot K76.0 FATTY (CHANGE OF) LIVER, NOT ELSEWHERE C 05/07/2016 NAMITA ANDRADE Ot Z79.4 RESIDENTIAL (CURRENT) USE OF INSULIN 05/07/2016 NAMITA ANDRADE Ot Z79.84 BASE ENGINEER (CURRENT) USE OF ORAL HYPOGLYC 05/07/2016 NAMITA ANDRADE Ot Z79.899 OTHER RESIDENTIAL (CURRENT) DRUG THERAPY 05/07/2016 NAMITA ANDRADE Ot Z95.5 PRESENCE OF CORONARY ANGIOPLASTY IMPLANT 05/08/2016 BRIGITTE WOLF APRN Ot E11.9 TYPE 2 DIABETES MELLITUS WITHOUT COMPLIC 05/08/2016 BRIGITTE WOLF APRN Ot I10 ESSENTIAL (PRIMARY) HYPERTENSION 05/08/2016 BRIGITTE WOLF APRN Ot I25.10 ATHSCL HEART DISEASE OF [place] CORONARY 05/08/2016 BRIGITTE WOLF APRN Ot K56.41 FECAL IMPACTION 05/08/2016 BRIGITTE WOLF APRN Ot Z79.4 BASE ENGINEER (CURRENT) USE OF INSULIN 05/08/2016 BRIGITTE WOLF APRN Ot Z79.899 OTHER RESIDENTIAL (CURRENT) DRUG THERAPY 05/10/2016 BRIGITTE WOLF APRN Ot E11.9 TYPE 2 DIABETES MELLITUS WITHOUT COMPLIC 05/10/2016 BRIGITTE WOLF APRN Ot I10 ESSENTIAL (PRIMARY) HYPERTENSION 05/10/2016 BRIGITTE WOLF APRN Ot I25.10 ATHSCL HEART DISEASE OF [place] CORONARY 05/10/2016 BRIGITTE WOLF APRN Ot K56.41 FECAL IMPACTION 05/10/2016 BRIGITTE WOLF APRN Ot Z79.4 BASE ENGINEER (CURRENT) USE OF INSULIN 05/10/2016 BRIGITTE WOLF APRN Ot Z79.899 OTHER RESIDENTIAL (CURRENT) DRUG THERAPY 08/31/2016 Ot 593.9 RENAL URETERAL DIS NOS 08/31/2016 Ot 414.01 CORONARY ATHEROSCLEROSIS OF [place] CORON 08/31/2016 Ot V58.69 OTH MED,LT, CURRENT USE 08/31/2016 Ot V72.84 EXAM PRE- OPERATIVE NOS 08/31/2016 DARLINE TRAYLOR SECURED ENTRANCE MONITOR Ot 786.05 SHORTNESS OF BREATH 08/31/2016 DARLINE TRAYLOR SECURED ENTRANCE MONITOR Ot 786.05 SHORTNESS OF BREATH 08/31/2016 DAMARIS [...] V72.31 ROUTINE GYNECOLOGICAL EXAMINATION 08/31/2016 YARELIS KEATING SCIENTIST IMMUNOLOGY Ot V76.12 OTH SCREEN MAMMO-MALIGN NEOPLASM OF [place] 08/31/2016 YARELIS KEATING SCIENTIST IMMUNOLOGY Ot V76.51 SCREEN MAL NEOP-COLON 08/31/2016 RISHABHSHERONYARELIS Laila SCIENTIST IMMUNOLOGY Ot V82.81 SCREENING FOR OSTEOPOROSIS 08/31/2016 AQUILINO MUKHERJEE Ot 272.4 HYPERLIPIDEMIA NEC/NOS 08/31/2016 AQUILINO MUKHERJEE Ot 401.1 BENIGN HYPERTENSION 08/31/2016 AQUILINO MUKHERJEE Ot 414.9 CHR ISCHEMIC HRT DIS NOS 08/31/2016 AQUILINO MUKHERJEE Ot 433.10 CAROTID ARTERY OCCLUSION W O CEREBRAL IN 08/31/2016 LESLYE LUTHER, IVELISSE Zuniga Ot Z01.818 ENCOUNTER FOR OTHER PREPROCEDURAL EXAMIN 08/31/2016 LSELYE LUTHER, IVELISSE Zuniga Ot K31.84 GASTROPARESIS 08/31/2016 LESLYE LUTHER, IVELISSE Zuniga Ot Z01.818 ENCOUNTER FOR OTHER PREPROCEDURAL EXAMIN 08/31/2016 LESLYE LUTHER, IVELISSE Zuniga Ot Z12.11 ENCOUNTER FOR SCREENING FOR MALIGNANT NE 08/31/2016 LESLYE LUTHER, IVELISSE Zuniga Ot Z80.0 FAMILY HISTORY OF MALIGNANT NEOPLASM OF 08/31/2016 AQUILINO MUKHERJEE Ot I25.10 ATHSCL HEART DISEASE OF [place] CORONARY 08/31/2016 AQUILINO MUKHERJEE Ot E78.2 MIXED HYPERLIPIDEMIA 08/31/2016 AQUILINO MUKHERJEE Ot I25.10 ATHSCL HEART DISEASE OF [place] CORONARY 08/31/2016 AQUILINO MUKHERJEE Ot I34.0 NONRHEUMATIC MITRAL (VALVE) INSUFFICIENC 08/31/2016 AQUILINO MUKHERJEE Ot I65.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 10/19/2016 AQUILINO MUKHERJEE Ot E78.2 MIXED HYPERLIPIDEMIA 10/19/2016 AQUILINO MUKHERJEE Ot I25.10 ATHSCL HEART DISEASE OF [place] CORONARY 10/19/2016 Ot 414.01 CORONARY ATHEROSCLEROSIS OF [place] CORON 10/19/2016 Ot V58.69 OTH MED,LT, CURRENT USE 10/19/2016 Ot V72.84 EXAM PRE- OPERATIVE NOS 10/19/2016 DARLINE TRAYLOR SECURED ENTRANCE MONITOR Ot 786.05 SHORTNESS OF BREATH 10/19/2016 DARLINE TRAYLOR SECURED ENTRANCE MONITOR Ot 786.05 SHORTNESS OF BREATH 10/19/2016 DAMARIS [...] V76.51 SCREEN MAL NEOP-COLON 10/19/2016 YARELIS KEATING SCIENTIST IMMUNOLOGY Ot V82.81 SCREENING FOR OSTEOPOROSIS 10/19/2016 AQUILINO [...] MUKHERJEE Ot I25.10 ATHSCL HEART DISEASE OF [place] CORONARY 10/19/2016 AQUILINO MUKHERJEE Ot E78.2 MIXED HYPERLIPIDEMIA 10/19/2016 AQUILINO MUKHERJEE Ot I25.10 ATHSCL HEART DISEASE OF [place] CORONARY 10/19/2016 AQUILINO MUKHERJEE Ot I34.0 NONRHEUMATIC MITRAL (VALVE) INSUFFICIENC 10/19/2016 AQUILINO MUKHERJEE Ot I65.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 10/19/2016 AQUILINO MUKHERJEE Ot E78.2 MIXED HYPERLIPIDEMIA 10/19/2016 AQUILINO MUKHERJEE Ot I25.10 ATHSCL HEART DISEASE OF [place] CORONARY 10/29/2016 Ot 414.01 CORONARY ATHEROSCLEROSIS OF [place] CORON 10/29/2016 Ot V58.69 OTH MED,LT, CURRENT [...] V16.0 FAMILY HX-GI MALIGNANCY 10/29/2016 YARELIS KEATING SCIENTIST IMMUNOLOGY Ot V72.31 ROUTINE GYNECOLOGICAL EXAMINATION 10/29/2016 YARELIS KEATING APRN Ot V76.12 OTH SCREEN MAMMO-MALIGN NEOPLASM OF [place] 10/29/2016 YARELIS KAETING SCIENTIST IMMUNOLOGY Ot V76.51 SCREEN MAL NEOP-COLON 10/29/2016 YARELIS KEATING SCIENTIST IMMUNOLOGY Ot V82.81 SCREENING FOR OSTEOPOROSIS 10/29/2016 AQUILINO [...] MUKHERJEE Ot I25.10 ATHSCL HEART DISEASE OF [place] CORONARY 10/29/2016 AQUILINO MUKHERJEE Ot E78.2 MIXED HYPERLIPIDEMIA 10/29/2016 AQUILINO MUKHERJEE Ot I25.10 ATHSCL HEART DISEASE OF [place] CORONARY 10/29/2016 AQUILINO MUKHERJEE Ot I34.0 NONRHEUMATIC MITRAL (VALVE) INSUFFICIENC 10/29/2016 AQUILINO MUKHERJEE Ot I65.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 10/29/2016 AQUILINO MUKHERJEE Ot E78.2 MIXED HYPERLIPIDEMIA 10/29/2016 AQUILINO MUKHERJEE Ot I25.10 ATHSCL HEART DISEASE OF [place] CORONARY 11/02/2016 AQUILINO MUKHERJEE Ot E78.2 MIXED HYPERLIPIDEMIA 11/02/2016 AQUILINO MUKHERJEE Ot I25.10 ATHSCL HEART DISEASE OF [place] CORONARY 11/12/2016 Ot 414.01 CORONARY ATHEROSCLEROSIS OF [place] CORON 11/12/2016 Ot V58.69 OTH MED,LT, CURRENT [...] VESSEL, NATIV 11/12/2016 DAMARIS LUTHER [facility] Ot V58.69 OT MED,LT,CURRENT USE [...] SCREEN MAMMO-MALIGN NEOPLASM OF [place] 11/12/2016 YARELIS KEATING APRN Ot V76.51 SCREEN MAL NEOP-COLON 11/12/2016 [...] MUKHERJEE Ot I25.10 ATHSCL HEART DISEASE OF [place] CORONARY 11/12/2016 AQUILINO MUKHERJEE Ot E78.2 MIXED HYPERLIPIDEMIA 11/12/2016 AQUILINO MUKHERJEE Ot I25.10 ATHSCL HEART DISEASE OF [place] CORONARY 11/12/2016 AQUILINO MUKHERJEE Ot I34.0 NONRHEUMATIC MITRAL (VALVE) INSUFFICIENC 11/12/2016 AQUILINO MUKHERJEE Ot I65.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 11/12/2016 AQUILINO MUKHERJEE Ot E78.2 MIXED HYPERLIPIDEMIA 11/12/2016 AQUILINO MUKHERJEE Ot I25.10 ATHSCL HEART DISEASE OF [place] CORONARY 11/16/2016 RADHIKA GARCIA Ot M19.011 PRIMARY OSTEOARTHRITIS, RIGHT SHOULDER 11/16/2016 RADHIKA GARCIA Ot M25.411 EFFUSION, RIGHT SHOULDER 11/16/2016 RADHIKA GARCIA Ot S46.811A STRAIN OF MUSC/FASC/TEND AT SHLDR/UP ARM 11/16/2016 RADHIKA GARCIA Ot X58.XXXA EXPOSURE TO OTHER SPECIFIED FACTORS, INI 11/16/2016 RADHIKA GARCIA Ot Y99.8 OTHER EXTERNAL CAUSE STATUS 11/16/2016 RADHIKA GARCIA Ot M19.011 PRIMARY OSTEOARTHRITIS, RIGHT SHOULDER 11/16/2016 RADHIKA GARCIA SECURED ENTRANCE MONITOR Ot M25.411 EFFUSION, RIGHT SHOULDER 11/16/2016 RADHIKA GARCIA SECURED ENTRANCE MONITOR Ot S46.811A STRAIN OF MUSC/FASC/TEND AT LDR/UP ARM 11/16/2016 RADHIKA GARCIA SECURED ENTRANCE MONITOR Ot X58.XXXA EXPOSURE TO OTHER SPECIFIED FACTORS, INI 11/16/2016 RADHIKA GARCIA SECURED ENTRANCE MONITOR Ot Y99.8 OTHER EXTERNAL CAUSE STATUS 12/06/2016 RADHIKA GARCIA SECURED ENTRANCE MONITOR Ot M19.011 PRIMARY OSTEOARTHRITIS, RIGHT SHOULDER 12/06/2016 RADHIKA GARCIA SECURED ENTRANCE MONITOR Ot M25.411 EFFUSION, RIGHT SHOULDER 12/06/2016 RADHIKA GARCIA SECURED ENTRANCE MONITOR Ot S46.811A STRAIN OF MUSC/FASC/TEND AT LDR/ ARM 12/06/2016 RADHIKA GARCIA SECURED ENTRANCE MONITOR Ot X58.XXXA EXPOSURE TO OTHER SPECIFIED FACTORS, INI 12/06/2016 RADHIKA GARCIA SECURED ENTRANCE MONITOR Ot Y99.8 OTHER EXTERNAL CAUSE STATUS 12/07/2016 RADHIKA GARCIA SECURED ENTRANCE MONITOR Ot M19.011 PRIMARY OSTEOARTHRITIS, RIGHT SHOULDER 12/07/2016 RADHIKA GARCIA SECURED ENTRANCE MONITOR Ot M25.411 EFFUSION, RIGHT SHOULDER 12/07/2016 RADHIKA GARCIA SECURED ENTRANCE MONITOR Ot S46.811A STRAIN OF MUSC/FASC/TEND AT LDR/ ARM 12/07/2016 RADHIKA GARCIA SECURED ENTRANCE MONITOR Ot X58.XXXA EXPOSURE TO OTHER SPECIFIED FACTORS, INI 12/07/2016 RADHIKA GARCIA SECURED ENTRANCE MONITOR Ot Y99.8 OTHER EXTERNAL CAUSE STATUS 01/05/2017 RADHIKA GARCIA SECURED ENTRANCE MONITOR Ot M19.011 PRIMARY OSTEOARTHRITIS, RIGHT SHOULDER 01/05/2017 RADHIKA GARCIA SECURED ENTRANCE MONITOR Ot M25.411 EFFUSION, RIGHT SHOULDER 01/05/2017 RADHIKA GARCIA SECURED ENTRANCE MONITOR Ot S46.811A STRAIN OF MUSC/FASC/TEND AT LDR/ ARM 01/05/2017 RADHIKA GARCIA SECURED ENTRANCE MONITOR Ot X58.XXXA EXPOSURE TO OTHER SPECIFIED FACTORS, INI 01/05/2017 RADHIKA GARCIA SECURED ENTRANCE MONITOR Ot Y99.8 OTHER EXTERNAL CAUSE STATUS 01/17/2017 RADHIKA GARCIA SECURED ENTRANCE MONITOR Ot M19.011 PRIMARY OSTEOARTHRITIS, RIGHT SHOULDER 01/17/2017 [...] MUKHERJEE Ot I25.10 ATHSCL HEART DISEASE OF [place] CORONARY 05/04/2017 AQUILINO MUKHERJEE Ot I65.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 05/16/2017 QAUILINO MUKHERJEE Ot E11.9 TYPE 2 DIABETES MELLITUS WITHOUT COMPLIC 05/16/2017 AQUILINO MUKHERJEE Ot I10 ESSENTIAL (PRIMARY) HYPERTENSION 05/16/2017 AQUILINO MUKHERJEE Ot I25.10 ATHSCL HEART DISEASE OF [place] CORONARY 05/16/2017 AQUILINO MUKHERJEE Ot I65.23 OCCLUSION [...] MUKHERJEE Ot I25.10 ATHSCL HEART DISEASE OF [place] CORONARY 06/08/2017 AQUILINO MUKHERJEE Ot I31.3 PERICARDIAL [...] MUKHERJEE Ot I25.10 ATHSCL HEART DISEASE OF [place] CORONARY 06/15/2017 ARELI DO RABIA F Ot M47.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, CE 06/15/2017 ARELI DO RABIA F Ot M48.02 SPINAL STENOSIS, CERVICAL REGION 06/15/2017 AREIL DO, RABIA F Ot M50.10 CERVICAL DISC [...] MUKHERJEE Ot I25.10 ATHSCL HEART DISEASE OF [place] CORONARY 06/17/2017 AQUILINO MUKHERJEE Ot I31.3 PERICARDIAL [...] MUKHERJEE Ot I25.10 ATHSCL HEART DISEASE OF [place] CORONARY 08/01/2017 ARELI DORABIA Ot M47.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, CE 08/01/2017 RABIA SINGLETON DO Ot M48.02 SPINAL STENOSIS, CERVICAL REGION 08/01/2017 RABIA SINGLETON DO Ot M50.10 CERVICAL DISC DISORDER W RADICULOPATHY, 12/06/2017 EDNA LUTHER, DAI Sinclair Ot E11.42 TYPE 2 DIABETES MELLITUS WITH DIABETIC P 12/06/2017 EDNA LUTHER, DAI Sinclair Ot E78.00 PURE HYPERCHOLESTEROLEMIA, UNSPECIFIED 12/06/2017 EDNA LUTHER, DAI Sinclair Ot F32.9 MAJOR DEPRESSIVE DISORDER, SINGLE EPISOD 12/06/2017 EDNA LUTHER, DAI Sinclair Ot F41.9 ANXIETY DISORDER, UNSPECIFIED 12/06/2017 EDNA LUTHER, DAI Sinclair Ot G43.909 MIGRAINE, UNSP, NOT INTRACTABLE, WITHOUT 12/06/2017 EDNA LUTHER, DAI Sinclair Ot G47.30 SLEEP APNEA, UNSPECIFIED 12/06/2017 EDNA LUTHER, DAI Sinclair Ot I10 ESSENTIAL (PRIMARY) HYPERTENSION 12/06/2017 EDNA LUTHER, DAI Sinclair Ot I25.10 ATHSCL HEART DISEASE OF [place] CORONARY 12/06/2017 EDNA LUTHER, DAI Sinclair Ot I25.2 OLD MYOCARDIAL INFARCTION 12/06/2017 EDNA LUTHER, DAI Sinclair Ot J44.9 CHRONIC OBSTRUCTIVE PULMONARY DISEASE, U 12/06/2017 EDNA LUTHER, DAI Sinclair Ot K21.9 GASTRO-ESOPHAGEAL REFLUX DISEASE WITHOUT 12/06/2017 EDNA LUTHER, DAI Sinclair Ot M25.511 PAIN IN RIGHT SHOULDER 12/06/2017 EDNA LUTHER, DAI Sinclair Ot S01.01XA LACERATION WITHOUT FOREIGN BODY OF SCALP 12/06/2017 DAI BISHOP MD Ot S09.90XA UNSPECIFIED INJURY OF HEAD, INITIAL ENCO 12/06/2017 DAI BISHOP MD Ot W18.30XA FALL ON SAME LEVEL, UNSPECIFIED, INITIAL 12/06/2017 DAI BISHOP MD Ot Z79.4 RESIDENTIAL (CURRENT) USE OF INSULIN 12/06/2017 DAI BISHOP MD Ot Z80.0 FAMILY HISTORY OF MALIGNANT NEOPLASM OF 12/06/2017 DAI BISHOP MD Ot Z82.49 FAMILY HX OF ISCHEM HEART DIS AND OTH DI 12/06/2017 DAI BISHOP MD Ot Z87.19 PERSONAL HISTORY OF OTHER DISEASES OF TH 12/06/2017 DAI BISHOP MD Ot Z88.5 ALLERGY STATUS TO NARCOTIC AGENT STATUS 12/06/2017 DAI BISHOP MD Ot Z88.6 ALLERGY STATUS TO ANALGESIC AGENT STATUS 12/06/2017 DAI BISHOP MD Ot Z90.710 ACQUIRED ABSENCE OF BOTH CERVIX AND UTER 12/06/2017 DAI BISHOP MD Ot Z90.89 ACQUIRED ABSENCE OF OTHER ORGANS 12/06/2017 DAI BSIHOP MD Ot Z95.5 PRESENCE OF CORONARY ANGIOPLASTY IMPLANT Procedures Code Description Performed By Performed On [...] CATHETERIZATION 05/10/2011 88.56 CORONAR ARTERIOGR-2 CATH 05/10/2011 47225 A1C (IN-HOUSE) 02/01/2012 53270 ROUTINE VENIPUNCTURE 02/09/2012 36708 CMP 02/09/2012 51750 LIPID PANEL 02/09/2012 [id number] GFR CALC (RESULT ONLY) 02/09/2012 53092 MICRO ALBUMIN-IN HOUSE 05/23/2012 54208 A1C (IN-HOUSE) 05/23/2012 89594 MICROALBUMIN 05/23/2012 76271 XRAY CERVICAL SPINE, 2 OR 3 VIEWS 05/30/2012 49017 XRAY LUMBAR SPINE 2 OR 3 VIEWS 05/30/2012 32955 NAIL REMOVAL PERMANENT ( PARTIAL OR COMPLETE) 06/09/2012 79562 ROUTINE VENIPUNCTURE 07/19/2012 25189 CMP 07/19/2012 64099 LIPID PANEL 07/19/2012 [id number] GFR CALC (RESULT ONLY) 07/19/2012 53231 MICRO ALBUMIN-IN HOUSE 01/22/2013 47093 A1C (IN-HOUSE) 01/22/2013 15158 MICROALBUMIN 01/23/2013 04044 A1C (IN-HOUSE) 05/23/2013 89974 ROUTINE VENIPUNCTURE 05/28/2013 19405 TSH 05/28/2013 53858 CBC 05/28/2013 35022 CULTURE STOOL 05/28/2013 10600 STOOL FOR O & P 05/28/2013 27274 STOOL FOR POLYS & LEUKOCYTES 05/28/2013 Cardiolog Kacie Harrington 05/28/2013 68373 CBC 05/28/2013 39329 CMP 05/28/2013 19797 LIPID PANEL 05/28/2013 5735494 GFR CALC (RESULT ONLY) 05/28/2013 35017 OXIMETRY 06/01/2013 44463 OXIMETRY 06/07/2013 49301 NUCLEAR STRESS TESTING 07/20/2013 23971 LIPID PANEL 07/20/2013 77587 LIVER PANEL (LFT) 07/20/2013 43797 US CAROTID DOPPLER 07/20/2013 10723 MAMMOGRAM, SCREENING 09/19/2013 69474 A1C (IN-HOUSE) 09/19/2013 14647 MICRO ALBUMIN-IN HOUSE 09/19/2013 51212 HEMOCCULT 10/03/2013 79034 HEMOCCULT 10/03/2013 78900 BONE MINERAL DENSITY, HEEL US (IN HOUSE) 10/10/2013 71297 ROUTINE VENIPUNCTURE 02/05/2014 99419 XRAY HIP RIGHT UNILATERAL MIN 2 VIEWS 02/05/2014 78759 MICRO ALBUMIN-IN HOUSE 02/05/2014 19487 A1C (IN-HOUSE) 02/05/2014 9608576 GFR CALC (RESULT ONLY) 02/05/2014 51148 CMP 02/05/2014 98380 LIPID PANEL 02/05/2014 Radhika Do 02/18/2014 79391 A1C (IN-HOUSE) 06/20/2014 Results Test Result Range [...] FOR INFLUENZA A AND B ANTIGENS BY [facility] PT panel in platelet poor plasma by [...] indirect bilirubin measurement (mass/volume) 0.2 mg/ dL [facility] Lipid 1996 panel - 05/03/17 [...] Status Pt. Type Provider Facility Loc./Unit Complaint [id number] 06/20/2014 14:05:00 06/20/2014 23:59:59 CLS Outpatient GARCIA MTRADHIKA Luiza [id number] 04/12/2014 14:06:00 04/12/2014 23:59:59 CLS Outpatient JUDY DDYahirCLARIBEL Luiza [id number] 03/21/2014 13:33:00 03/21/2014 23:59:59 CLS Outpatient GARCIA MTRADHIKA Luiza [id number] 02/05/2014 08:35:00 02/05/2014 23:59:59 CLS Outpatient JYOTSNA EMERY APRN [id number] 01/14/2014 13:47:00 01/14/2014 23:59:59 CLS Outpatient TAN DDS JOVANA [id number] 12/27/2013 09:53:00 12/27/2013 23:59:59 CLS Outpatient TAN DDSJOVANA [id number] 12/18/2013 12:03:00 12/18/2013 23:59:59 CLS Outpatient TAN DDSJOVANA [id number] 12/13/2013 18:33:00 12/13/2013 23:59:59 CLS Outpatient COSME RICO DO [id number] 10/10/2013 12:20:00 10/10/2013 23:59:59 CLS Outpatient YARELIS KEATING APRN [id number] 10/03/2013 12:19:00 10/03/2013 23:59:59 CLS Outpatient COSME RICO DO [id number] 09/26/2013 13:24:00 09/26/2013 23:59:59 CLS Outpatient YARELIS KEATING APRN [id number] 09/19/2013 09:02:00 09/19/2013 23:59:59 CLS Outpatient JYOTSNA EMERY APRN [id number] 09/19/2013 09:02:00 09/19/2013 23:59:59 CLS Outpatient JYOTSNA EMERY APRN [id number] 07/20/2013 09:59:00 07/20/2013 23:59:59 CLS Outpatient COSME RICO DO [id number] 06/07/2013 12:22:00 06/07/2013 23:59:59 CLS Outpatient JYOTSNA EMERY APRN S [id number] 06/01/2013 13:30:00 06/01/2013 23:59:59 CLS Outpatient DOMINIQUE GARCIA APRN [id number] 05/28/2013 12:00:00 05/28/2013 23:59:59 CLS Outpatient JYOTSNA EMERY APRN S [id number] 05/23/2013 13:14:00 05/23/2013 23:59:59 CLS Outpatient JYOTSNA EMERY APRN S [id number] 04/25/2013 14:12:00 04/25/2013 23:59:59 CLS Outpatient JYOTSNA EMERY APRN S [id number] 01/22/2013 11:01:00 01/22/2013 23:59:59 CLS Outpatient COSME RICO DO [id number] 12/27/2012 11:54:00 12/27/2012 23:59:59 CLS Outpatient JEREMY BANDA DDS [id number] 12/04/2012 11:58:00 12/04/2012 23:59:59 CLS Outpatient JEERMY BANDA DDS [id number] 06/07/2012 15:12:00 06/07/2012 23:59:59 CLS Outpatient JYOTSNA EMERY APRN S [id number] 05/23/2012 13:45:00 05/23/2012 23:59:59 CLS Outpatient JYOTSNA EMERY APRN S [id number] 02/09/2012 08:05:00 02/09/2012 23:59:59 CLS Outpatient JYOTSNA EMERY APRN S [id number] 02/01/2012 13:00:00 02/01/2012 23:59:59 CLS Outpatient JYOTSNA EMERY APRN S [id number] 11/08/2012 13:58:00 Document Registration [id number] 07/19/2012 15:00:00 Document Registration [id number] 12/04/2017 09:42:00 12/04/2017 11:20:00 DIS Outpatient EDNA LUTHER, DAI Sinclair [facility] ER FALL/HEAD LAC [id number] 06/13/2017 07:53:00 06/13/2017 23:59:59 CLS Outpatient AQUILINO MUKHERJEE [facility] CARD I25.10 CAD [id number] 06/07/2017 13:38:00 06/07/2017 23:59:59 CLS Outpatient AQUILINO MUKHERJEE [facility] CARD I25.10 CAD [id number] 06/02/2017 09:18:00 06/02/2017 23:59:59 CLS Outpatient RABIA SINGLETON DO [facility] RAD RIGHT SIDE RADICULOPATHY [id number] 05/03/2017 11:14:00 05/03/2017 23:59:59 CLS Outpatient AQUILINO MUKHERJEE [facility] LAB I25.10, I65.23, E11.9, I10 [id number] 11/12/2016 10:50:00 11/12/2016 23:59:59 CLS Outpatient RADHIKA GARCIA [facility] RAD ROTATOR CUFF SYNDROME M75.101 [id number] 10/15/2016 11:55:00 10/15/2016 23:59:59 CLS Outpatient AQUILINO MUKHERJEE [facility] LAB I25.10 E78.2 [id number] 05/08/2016 13:31:00 05/08/2016 15:56:00 DIS Emergency BRIGITTE WOLF APRN [facility] ER BOWEL IMPACTION [id number] 05/07/2016 16:50:00 05/07/2016 20:47:00 DIS Emergency NAMITA ANDRADE [facility] ER LOWER R QUAD PAIN [id number] 04/21/2016 08:45:00 04/21/2016 23:59:59 CLS Preadmit DEFFENBAGERARD OLMEDO DO [facility] RAD ABD PAIN [id number] 04/20/2016 20:24:00 04/21/2016 00:20:00 DIS Emergency KATHY LAST DO [facility] ER HEADACHE,NAUSEA,VOMITING [id number] 03/05/2016 09:44:00 03/05/2016 11:12:00 DIS Outpatient JOVANA BANDA MD [facility] CARD SACROCOCCYGEAL DISORDER [id number] 01/12/2016 19:55:00 01/13/2016 06:20:00 DIS Outpatient YULYTJ SILVANDA ROBBY [facility] SLEEP SNORING, OBSTRUCTIVE SLEEP APNEA [id number] 08/27/2015 11:24:00 08/27/2015 23:59:59 CLS Outpatient AQUILINO MUKHERJEE [facility] CARD CAD,DANIEL,HLP, MR [id number] 08/26/2015 10:31:00 08/26/2015 23:59:59 CLS Outpatient AQUILINO MUKHERJEE [facility] CARD CAD,DANIEL,HLP, MR [id number] 03/18/2015 09:03:00 03/18/2015 23:59:59 CLS Outpatient IVELISSE GAVIN MD [facility] CARD GASTROPARESIS [id number] 03/17/2015 14:11:00 03/17/2015 17:25:00 DIS Outpatient IVELISSE GAVIN MD [facility] SDC SCREENING; HX [id number] 03/12/2015 05:34:00 03/12/2015 23:59:59 CLS Outpatient IVELISSE GAVIN MD [facility] PREOP SCREENING; FAMILY HX [id number] 03/10/2015 08:41:00 03/10/2015 11:40:00 DIS Outpatient IVELISSE GAVIN MD [facility] SDC DYSPHAGIA;BENJIE [id number] 03/05/2015 05:57:00 03/05/2015 23:59:59 CLS Outpatient IVELISSE GVAIN MD [facility] PREOP DYSPHAGIA;BENJIE [id number] 11/05/2014 11:20:00 11/05/2014 23:59:59 CLS Outpatient AQUILINO MUKHERJEE [facility] LAB CAD,CAROTID ARTERY TENOSIS,HTN [id number] 09/22/2014 02:18:00 09/22/2014 04:14:00 DIS Emergency KATHY LAST DO [facility] ER VOMITING,DIARRHEA [id number] 10/11/2013 01:15:00 10/11/2013 20:15:00 DIS Outpatient KACIE HARRINGTON MD [facility] CHEST PAIN [id number] 10/03/2013 11:37:00 10/03/2013 23:59:59 CLS Outpatient YARELIS KEATING APRN [facility] RAD SCREENING [id number] 08/01/2013 08:12:00 08/01/2013 23:59:59 CLS Outpatient AQUILINO MUKHERJEE [facility] CARD CAD,HTN,HLP, CAROTID BRUIT [id number] 07/26/2013 09:37:00 07/26/2013 23:59:59 CLS Outpatient AQUILINO MUKHERJEE [facility] RAD CAROTID BRUIT [id number] 04/19/2013 17:07:00 04/19/2013 18:35:00 DIS Emergency FABY PULIDO MD [facility] ER MULTIPLE COMPLAINTS [id number] 12/13/2012 09:39:00 12/13/2012 23:59:59 CLS Outpatient DAMARIS LUTHER FACC, ALI FACP CCDS [facility] LAB HYPERLIPADEMIA [id number] 12/04/2012 15:59:00 12/04/2012 23:59:59 CLS Outpatient DAMARIS LUTHER FACC, ALI FACP CCDS [facility] CARD CAD [id number] 09/15/2012 08:32:00 09/15/2012 21:20:00 DIS Outpatient DAMARIS LUTHER FACC, ALI FACP CCDS [facility] CAD, HYPERLIPIDEMIA,SOB,FATIGUE,ABN STRESS TEST [id number] 09/08/2012 07:09:00 09/08/2012 23:59:59 CLS Outpatient DARLINE TRAYLOR [facility] RAD SOB [id number] 09/06/2012 08:12:00 09/06/2012 23:59:59 CLS Outpatient DARLINE TRAYLOR [facility] RT SOB [id number] 09/22/2014 04:21:00 Document Registration [id number] 09/22/2014 04:21:00 Document Registration [id number] 09/22/2014 04:21:00 Document Registration [id number] 09/22/2014 04:21:00 Document Registration [id number] 09/22/2014 04:21:00 Document Registration [id number] 09/22/2014 04:21:00 Document Registration [id number] 01/24/2012 12:24:00 Document Registration [id number] 12/23/2011 20:11:00 Document Registration [id number] 11/22/2011 07:36:00 Document Registration [id number] 08/17/2011 00:45:00 Document Registration [id number] 05/25/2011 12:27:00 Document Registration [id number] 03/22/2011 06:53:00 Document Registration [id number] 02/12/2011 12:00:00 Document Registration [id number] 01/17/2011 12:05:00 Document Registration [id number] 12/29/2010 15:40:00 Document Registration [id number] 12/23/2010 00:35:00 Document Registration [id number] 11/06/2014 05:02:05 [place] Document Registration [id number] 04/20/2016 10:09:00 Document Registration [id number] 04/30/2016 11:08:00 Document Registration [id number] 06/15/2017 09:00:00 06/15/2017 23:59:59 [facility] Outpatient JYOTSNA EMERY APRN [facility] [id number] 04/20/2016 11:07:00 Document Registration
[2017-12-14 13:35] VITALS: BP 119/65
== END 2017-12-14 13:35 | disposition home or self-care (01) ==
LOC: EDUNIT# 12:24 → ER 12:24
DX: S01.81XD Laceration without foreign body of other part of head, subsequent encounter (principal); X58.XXXD Exposure to other specified factors, subsequent encounter

== ENCOUNTER → 2017-12-14 | Outpatient (CLI) | payer MEDICARE, OTHER ==
[2017-12-14 14:08] LABS: ALANINE AMINOTRANSFERASE 27 U/L (0-55); ALBUMIN 4.6 GM/DL (3.2-4.5); ALKALINE PHOSPHATASE 65 U/L (40-136); BILIRUBIN,TOTAL 0.6 MG/DL (0.1-1.0); BUN/CREATININE RATIO 18; CALCIUM 9.7 MG/DL (8.5-10.1); CARBON DIOXIDE 24 MMOL/L (21-32); CHLORIDE 104 MMOL/L (98-107); CHOLESTEROL 124 MG/DL (< 200); CREATININE SERUM 1.07 MG/DL (0.60-1.30); GFR ESTIMATED 51; GLUCOSE 130 MG/DL (70-105); HDL CHOLESTEROL 33 MG/DL (40-60); POTASSIUM 4.3 MMOL/L (3.6-5.0); SODIUM 141 MMOL/L (135-145); TRIGLYCERIDES 265 MG/DL (<150); VLDL CHOLESTEROL 53 MG/DL (5-40)
== END ==
LOC: LAB 13:37
PROVIDERS: ATTEND Physician Assistant
DX: E78.2 Mixed hyperlipidemia (principal)
CPT/HCPCS: 36415; 80053; 80061

== ENCOUNTER 2018-03-30 14:25 | Outpatient (CLI) | payer MEDICARE ==
[~2018-03-30] VITALS: Ht 170.2 cm; Wt 86.2 kg
[2018-03-30] MEDS ORDERED: BUSP5TAB59 PO ×2 (14:39)
[2018-03-30] MEDS ORDERED: DICL100G31 TP (14:39)
[2018-03-30] MEDS ORDERED: METF-397 PO (14:39)
[2018-03-30] MEDS ORDERED: LIPA1CAP27 PO (14:39)
[2018-03-30] MEDS ORDERED: INSU100V5 SQ (14:39)
[2018-03-30] MEDS ORDERED: METO50TA15 PO (14:39)
[2018-03-30] MEDS ORDERED: PANT40TA3 PO (14:39)
[2018-03-30] MEDS ORDERED: GABA-490 PO (14:39)
[2018-03-30] MEDS ORDERED: DAPA5TAB PO (14:39)
[2018-03-30] MEDS ORDERED: QUIN20TA16 PO (14:39)
[2018-03-30] MEDS ORDERED: FLUO20CA42 PO (14:39)
[2018-03-30] MEDS ORDERED: OXYB5TAB PO (14:39)
[2018-03-30] MEDS ORDERED: INSU100I14 SQ (14:39)
[2018-03-30] MEDS ORDERED: ASPI-999 PO (14:39)
[2018-03-30] MEDS ORDERED: LIRA0.6P SQ (14:39)
[2018-03-31] MEDS ORDERED: TRAM50TA2 PO (11:54)
== END 2018-03-30 15:02 | disposition home or self-care (01) ==
LOC: PREOP 14:25
PROVIDERS: ATTEND Surgery
DX: Z01.818 Encounter for other preprocedural examination (principal)

== ENCOUNTER 2018-03-31 10:31 | Day surgery (SDC) | payer MEDICARE, OTHER ==
[~2018-03-31] VITALS: Ht 170.2 cm; Wt 86.2 kg
[~2018-03-31 10:31] MED LIST changes: +ASPI-999 PO; +BUSP5TAB59 PO; +DAPA5TAB PO; +DICL100G31 TP; +FLUO20CA42 PO; +GABA-490 PO; +INSU100I14 SQ; +INSU100V5 SQ; +LIPA1CAP27 PO; +METF-397 PO; +METO50TA15 PO; +OXYB5TAB PO; +PANT40TA3 PO; +QUIN20TA16 PO
--- OUTSIDE RECORDS SUMMARY | 2018-03-31 10:37 | XMS REPORT ---
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 Nov, Active 8407555 Problem Hypertriglyceridemia E78.1 Active 971366766 Problem Gastroparesis K31.84 Active 808492799 Problem Herniation of intervertebral disc at C5-C6 level M50.222 Active 688182437 Problem Rotator cuff syndrome of right shoulder M75.101 Active 645403482332004 Problem Constipation, unspecified constipation type K59.00 Active 65461551 Problem Neuropathy G62.9 Active 204731344 Problem Diabetic polyneuropathy associated with diabetes mellitus due to underlying condition E08.42 Active 62292920 Problem Panic disorder with agoraphobia F40.01 Active 88303765 Problem Bipolar disorder, current episode depressed, moderate F31.32 Active 174319786 Problem Barretts esophagus without dysplasia K22.70 Active 057182830 Problem BRITTANI (generalized anxiety disorder) F41.1 Active 40218055 Problem Obstructive sleep apnea syndrome G47.33 Active 73720889 Problem Essential hypertension I10 Active 93109149 Problem Gastro-esophageal reflux disease without esophagitis K21.9 Active 216488143 Problem Diabetes E11.9 Active 777412716 Problem Type 2 diabetes mellitus with diabetic autonomic (poly)neuropathy E11.43 Active 463185026 Problem Type 2 diabetes mellitus with hyperglycemia E11.65 Active 79015706 ALLERGIES Substance Reaction Event Type Date Status Codeine Sulfate hives Drug Allergy Jan, Active Advil rash Drug Allergy Jan, Active All nsaids Unknown Non Drug Allergy Jan, Active ENCOUNTERS Encounter Location Date Diagnosis [place] [address] [address] Jan, [place] [address] 48719- 4665 Jan, Right wrist pain M25.531 ; Type 2 diabetes mellitus with diabetic autonomic (poly)neuropathy E11.43 and Abscess L02.91 [place] [address] 54779- 5783 Jan, [place] [address] 19846- 3175 Jan, Tenosynovitis, de Quervain M65.4 [place] [address] 40256- 0616 08 Dec, 2017 Syncope, unspecified syncope type R55 ; Laceration of skin of scalp, sequela S01.01XS ; Hypertriglyceridemia E78.1 and Encounter for immunization Z23 [place] [address] 01524- 9710 Dec, Type 2 diabetes mellitus with hyperglycemia E11.65 [place] [address] [place] [id number] [place] [address] 92920- 5789 Oct, Type 2 diabetes mellitus with hyperglycemia E11.65 ; Neuropathy G62.9 ; History of fusion of cervical spine Z98.1 and Obstructive sleep apnea syndrome G47.33 [place] [address] [place] [id number] [place] [address] 77743- 7874 Oct, [place] [address] 20878- 8426 Sep, Type 2 diabetes mellitus with hyperglycemia E11.65 [place] [address] 96752- 1235 July, [place] [address] 11664- 5694 Jun, Type 2 diabetes mellitus with diabetic autonomic (poly) neuropathy E11.43 and Type 2 diabetes mellitus with hyperglycemia E11.65 [place] [address] [place] [id number] [place] [address] 79662- 2964 May, [facility] [address] 33582- 2020 May, Bipolar disorder, current episode depressed, moderate F31.32 [facility] [address] [address]252 May, [place] [address] 71487- 2086 May, Diabetic polyneuropathy associated with diabetes mellitus due to underlying condition E08.42 [place] [address] 94118- 0743 Apr, [place] [address] 20027- 0267 Feb, Ganglion cyst of dorsum of right wrist M67.431 [place] [address] 78501- 1433 Jan, Other cyst of bone, right forearm M85.631 [place] [address] [place] [id number] [place] [address] 80909- 5921 Jan, [place] [address] 53322- 2438 Jan, Diabetes E11.9 and Right forearm pain M79.631 [place] [address] [place] [id number] [place] [address] 31786- 7975 Dec, Encounter for immunization Z23 [place] [address] 04712- 5762 Nov, [place] [address] [place] [id number] [place] [address] 91407- 3385 Nov, Type 2 diabetes mellitus with hyperglycemia E11.65 [facility] [address] [address] 7455 Nov, Severe pain of right shoulder M25.511 [facility] [address] [place] [id number] [place] [address] 04591- 2727 Oct, Diabetes E11.9 [facility] [address] [place] [id number] [place] [address] 30453- 9740 Oct, Diabetes E11.9 [facility] [address] [place] [id number] [place] [address] 83933- 9323 Oct, [facility] [address] [place] [id number] [place] [address] 15304- 3439 Oct, [facility] [address] [place] [id number] [place] [address] 10971- 2784 Oct, Rotator cuff syndrome of right shoulder M75.101 [facility] [address] [place] [id number] [place] [address] 30723- 1971 Oct, Diabetes E11.9 [facility] [address] [place] [id number] [place] [address] 02616- 4403 Sep, Type 2 diabetes mellitus with hyperglycemia E11.65 ; Obstructive sleep apnea syndrome G47.33 and Constipation, unspecified constipation type K59.00 [facility] [address] [address] 7462 Aug, [facility] [address] [place] [id number] [place] [address] 04532- 3725 Aug, [facility] [address] [place] [id number] [place] [address] 27515- 2057 Aug, Type 2 diabetes mellitus with diabetic autonomic (poly) neuropathy E11.43 [facility] [address] [place] [id number] [place] [address] 15028- 0594 July, Type 2 diabetes mellitus with hyperglycemia E11.65 [facility] [address] [place] [id number] [place] [address] 24182- 2235 Jun, Slow transit constipation K59.01 [facility] [address] [address]- 9860 May, [facility] [address] [place] [id number] [place] [address] 91197- 0705 May, Diabetes E11.9 [place] [address] [place] [id number] [place] [address] 78157- 0335 May, [facility] [address] [place] [id number] [place] [address] 83853 -7521 Apr, [place] [address] [place] [id number] [place] [address] 32559- 5634 Apr, Gastroenteritis K52.9 [facility] [place] [address] [place] [id number] [place] [address] 16631 -6549 Apr, Abdominal pain, unspecified location R10.9 ; Gastroenteritis K52.9 ; Type 2 diabetes mellitus with hyperglycemia E11.65 and 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 [place] [address] [place] [id number] [place] [address] 46794- 4549 Apr, [place] [address] [place] [id number] [place] [address] 33179- 8365 Apr, [place] [address] [place] [address] 46056- 5862 Apr, Diabetes E11.9 ; Gastroparesis K31.84 ; Generalized abdominal pain R10.84 ; Essential hypertension I10 ; Bronchitis J40 and Other fatigue R53.83 [facility] [address] [address] Mar, [facility] [address] [place] [id number] [place] [address] 29281 -4128 Mar, [facility] N [address] [place] [address] 51865 -6853 Mar, Laceration of scalp without foreign body, initial encounter S01.01XA ; Laceration of face, initial encounter S01.81XA and Encounter for immunization Z23 [place] [address] 88050- 5416 Mar, Type 2 diabetes mellitus with diabetic autonomic (poly) neuropathy E11.43 [place] [address] 27116- 4297 Feb, [place] [address] 21113- 3552 Feb, Internal hemorrhoids K64.8 and Obstructive sleep apnea syndrome G47.33 [place] [address] 09848- 8622 Feb, SI (sacroiliac) joint dysfunction M53.3 [place] [address] 04830- 3900 Jan, [place] [address] 82888- 1588 Dec, Gastroparesis K31.84 [place] [address] 20614- 4403 Dec, [place] [address] 80588- 9245 Dec, Right hip pain M25.551 ; Nose congested R09.81 and Encounter for immunization Z23 [place] [address] 98795- 9483 Nov, Diabetes E11.9 ; Gastroparesis K31.84 ; Type 2 diabetes mellitus with diabetic autonomic (poly)neuropathy E11.43 and Obstructive sleep apnea syndrome G47.33 [place] [address] 33926- 1533 Oct, [place] [address] 79629- 8571 Aug, [place] [address] 93997- 8494 July, Gastro-esophageal reflux disease without esophagitis K21.9 [facility] [address] [place] [id number] [place] [address] 39327- 2997 July, [facility] [address] [place] [id number] [place] [address] 50289- 4678 July, Diabetes E11.9 [facility] [address] 64468- 4345 July, Diabetes E11.9 ; Obstructive sleep apnea syndrome G47.33 and Neuropathy G62.9 [place] [address] 77995- 2330 July, Bipolar disorder, current episode depressed, moderate F31.32 ; BRITTANI (generalized anxiety disorder) F41.1 and Panic disorder with agoraphobia F40.01 [place] [address] 24541- 9353 Jun, [facility] [address] [place] [id number] [place] [address] 78532- 5785 Jun, [place] [address] 92181- 7594 Jun, [facility] [address] [place] [id number] [place] [address] 30420- 7449 Jun, [facility] [address] [place] [id number] [place] [address] [id number] May, Encounter for dental examination and cleaning without abnormal findings Z01.20 [facility] [address] [place] [id number] [place] [address] 14721- 2516 Apr, [facility] [address] 11733- 4737 Apr, [facility] [address] [place] [id number] [place] [address] 81452- 0531 Apr, Bipolar disorder, current episode depressed, moderate F31.32 ; BRITTANI (generalized anxiety disorder) F41.1 and Panic disorder with agoraphobia F40.01 [facility] [address] [place] [address] 79972- 6594 04 Apr, 2015 Hyperlipidemia, unspecified E78.5 [facility] [address] [place] [address] [id number] Apr, Dental caries K02.9 [facility] [address] [place] [id number] [place] [address] [id number] Feb, Dental caries K02.9 and Encounter for dental examination Z01.20 [place] [address] 25219- 1500 Feb, [place] [address] [place] [id number] [place] [address] 37425- 3886 Feb, Diabetes E11.9 ; Insulin long-term use Z79.4 ; Diabetic polyneuropathy associated with diabetes mellitus due to underlying condition E08.42 and Barretts esophagus with high grade dysplasia K22.711 [place] [address] [place] [id number] [place] [address] 93495- 2696 14 Feb, [address] 54160- 0858 Jan, Pain in right hip M25.551 and Other chronic pain G89.29 [place] [id number] [place] [address] 09869- 8915 Jan, Impingement syndrome, shoulder, left M75.42 [place] [address] [place] [id number] [place] [address] 77207- 9637 05 Jan, 2015 Bipolar disorder, current episode depressed, moderate F31.32 ; Generalized anxiety disorder F41.1 and Agoraphobia with panic disorder F40.01 [place] [address] [place] [id number] [place] [address] 35121- 3482 Jan, [place] [address] [place] [id number] [place] [address] 90400- 6420 Dec, [place] [address] [address]- 9553 Dec, [facility] [address] [place] [id number] [place] [address] 42098- 9552 Dec, Right hip pain M25.551 and Left shoulder pain M25.512 [facility] [address] [place] [id number] [place] [address] 65442- 8292 Dec, Bipolar 1 disorder, depressed, moderate F31.32 ; BRITTANI ( generalized anxiety disorder) F41.1 and Panic disorder with agoraphobia F40.01 [facility] [address] [place] [id number] [place] [address] 14190- 6978 Dec, [facility] [address] [place] [id number] [place] [address] 91150- 9769 Dec, [facility] [address] [place] [id number] [place] [address] 55236- 5527 Nov, [facility] [address] [place] [id number] [place] [address] 12094- 7782 18 Nov, 2014 [facility] [address] [place] [id number] [place] [address] 92359- 9008 Nov, [facility] [address] [place] [id number] [place] [address] 05494- 0721 Nov, Diabetes 250.00 [facility] [address] [place] [id number] [place] [address] 93340- 2128 Oct, [facility] [address] [place] [id number] [place] [address] 17641- 1959 Oct, [facility] [address] [place] [id number] [place] [address] 15830- 2400 Oct, [facility] [address] [place] [id number] [address]- 6847 Oct, [facility] [address] [place] [address] 84167- 1809 Oct, [facility] [address] [facility] [id number] [address]- 3196 Oct, [facility] [address] [address]- 5704 Oct, Diabetes 250.00 ; Insomnia 780.52 and Forgetfulness 780.99 [facility] [address] [place] [address]- 5212 Oct, Depressive disorder, not elsewhere classified 311 [facility] [address] [facility] [id number] [place] [address]- 6434 Sep, [facility] [address] [place] [id number] [place] [address]- 7845 Sep, [facility] [address] [address]- 1686 Sep, [facility] [address] [place] [id number] [address]- 5016 Sep, [facility] [address] [address]- 4960 Sep, [facility] [address] [address]- 1261 Sep, [facility] [address] [address]- 1854 Sep, [facility] [address] [address]- 1146 Aug, [facility] [address] [place] [id number] [id number] Aug, Dental examination V72.2 [facility] [address] [address]- 8581 Aug, [facility] [address] [address]- 8248 Aug, [facility] [address] [address]125 July, [facility] [place] [facility] [address] [id number] [place] [address]- 9926 July, [facility] [place] [facility] [address] [id number] [place] [address]- 9426 July, [facility] [place] [facility] [address] [id number] [place] [address]- 9899 July, [facility] [place] [facility] [address] [id number] [place] [address]- 9355 Jun, [facility] [place] [facility] [address] [id number] [place] [address]- 4616 Jun, [facility] [place] [facility] [address] [id number] [place] [address]- 1770 May, [facility] [place] [facility] [address] [id number] [place] [address]- 3181 May, [facility] [place] [facility] [address] [id number] [place] [address]- 2041 May, [facility] [place] [facility] [address] [id number] [place] [address]- 0528 May, [facility] [place] [facility] [address] [id number] [place] [address]- 2257 May, [facility] [place] [facility] [address] [id number] [place] [address]- 8894 May, [facility] [place] [facility] [address] [id number] [place] [address]- 3455 16 May, 2014 [facility] [place] [facility] [address] [id number] [place] [address]- 0315 May, [facility] [place] [facility] [address] [id number] [place] [address]- 9572 Apr, [facility] [place] [facility] [address] [id number] [place] [address]- 4220 Apr, [facility] [place] [facility] [address] [id number] [place] [address]- 4164 Apr, [facility] [place] [facility] [address] [id number] [place] [address]- 5346 Apr, [facility] [place] [facility] [address] [id number] [place] [address]- 2826 Apr, [facility] [place] [facility] [address] [id number] [place] [address]- 7236 Apr, [facility] [place] [facility] [address] [id number] [place] [address]- 6676 Mar, [facility] [place] [facility] [address] [id number] [place] [address]- 3844 Mar, [facility] [place] [facility] [address] [id number] [place] [address]- 0355 Mar, [facility] [place] [facility] [address] [id number] [place] [address]- 2686 Mar, [facility] [place] [facility] [address] [id number] [place] [address]- 6434 Mar, [facility] [place] [facility] [address] [id number] [place] [address]- 5496 Mar, [facility] [place] [facility] [address] [id number] [place] [address]- 4911 Mar, [facility] [place] [facility] [address] [id number] [place] [address]- 1557 Mar, [facility] [place] [facility] [address] [id number] [place] [address]- 4447 Mar, [facility] [place] [facility] [address] [id number] [place] [address]- 0207 Mar, [facility] [place] [facility] [address] [id number] [place] [address]- 9797 Mar, [facility] [place] [facility] [address] [id number] [place] [address]- 3248 Mar, [facility] [place] [facility] [address] [id number] [place] [address]- 3764 Mar, [facility] [place] [facility] [address] [id number] [place] [address]- 0347 Mar, [facility] [place] [facility] [address] [id number] [place] [address]- 7327 Feb, [facility] [place] [facility] [address] [id number] [place] [address]- 2388 Feb, [facility] [place] [facility] [address] [id number] [place] [address]- 4027 Feb, [facility] [place] [facility] [address] [id number] [place] [address]- 3257 Feb, [facility] [place] [facility] [address] [id number] [place] [address]- 6870 Feb, [facility] [place] [facility] [address] [id number] [place] [address]- 6175 Feb, [facility] [place] [facility] [address] [id number] [place] [address]- 8995 16 Feb, 2014 [facility] [place] [facility] [address] [id number] [place] [address]- 9203 Feb, [facility] [place] [facility] [address] [id number] [place] [address]- 7950 16 Feb, 2014 [facility] [place] [facility] [address] [id number] [place] [address]- 9396 16 Feb, 2014 [facility] [place] [facility] [address] [id number] [place] [address]- 6381 10 Feb, 2014 [facility] [place] [facility] [address] [id number] [place] [address]- 5067 Feb, [facility] [place] [facility] [address] [id number] [place] [address]- 7529 04 Feb, 2014 [facility] [place] [facility] [address] [id number] [address]- 6588 Feb, [facility] [place] [facility] [address] [id number] [place] [address]- 8577 Jan, [facility] [place] [facility] [address] [id number] [place] [address]- 7823 Jan, [facility] [place] [facility] [address] [facility] [id number] [place] [address]- 6752 Jan, [facility] [place] [facility] [address] [id number] [place] 8790 Jan, [facility] [place] [facility] [address] [id number] [place] 8406 Dec, [facility] [place] [facility] [address] [id number] [place] [address]- 3537 Dec, [facility] [place] [facility] [address] [facility] [id number] [place] [address] Dec, [facility] [place] [facility] [address] [facility] [id number] [place] [address] Dec, [facility] [place] [facility] [address] [facility] [id number] [place] [address] Dec, [facility] [place] [facility] [address] [facility] [id number] [place] [address] Dec, [facility] [place] [facility] [address] [facility] [id number] [address] Dec, [facility] [place] [facility] [address] [facility] [id number] [place] [address] Dec, [facility] [place] [facility] [address] [id number] [place] [address] 30 Nov, 2013 [facility] [place] [facility] [address] [id number] [place] [address] Nov, [facility] [place] [facility] [address] [facility] [id number] [place] [address] 17 Nov, 2013 [facility] [place] [facility] [address] [id number] [place] [address] Nov, [facility] [place] [facility] [address] [id number] [place] [address] Nov, [facility] [place] [facility] [address] [id number] [place] [address] Oct, [facility] [place] [facility] [address] [id number] [place] [address] Oct, [facility] [place] [facility] [address] [id number] [place] [address] Sep, [facility] [place] [facility] [address] [id number] [place] [address] Sep, [facility] [place] [facility] [address] [id number] [place] [address] Sep, [facility] [place] [facility] [address] [id number] [place] [address] Sep, [facility] [place] [facility] [address] [id number] [place] [address] Sep, [facility] [place] [facility] [address] [id number] [place] [address] Sep, [facility] [place] [facility] [address] [id number] [place] [address] Sep, [facility] [place] [facility] [address] [id number] [place] [address] Sep, [facility] [place] [facility] [address] [id number] [place] [address] Sep, [facility] [place] [facility] [address] [id number] [place] [address] Sep, [facility] [place] [facility] [address] [id number] [place] [address]- [address] Sep, [facility] [place] [facility] [address] [id number] [place] [address] Sep, [facility] [place] [facility] [address] [id number] [place] [address]- [address] Sep, [facility] [place] [facility] [address] [id number] [place] [address]- [address] Sep, [facility] [place] [facility] [address] [id number] [place] [address] July, [facility] [place] [facility] [address] [id number] [place] [address] July, [facility] [place] [facility] [address] [id number] [place] [address] July, [facility] [place] [facility] [address] [id number] [place] [address] July, [facility] [place] [facility] [address] [id number] [place] [address] July, [facility] [place] [facility] [address] [id number] [place] [address] July, [facility] [place] [facility] [address] [id number] [place] [address] July, [facility] [place] [facility] [address] [id number] [place] [address] July, [facility] [place] [facility] [address] [id number] [place] [address] Jun, [facility] [place] [facility] [address] [id number] [place] [address] Jun, [facility] [place] [facility] [address] [id number] [place] [address] 2080 Jun, [facility] [place] [facility] [address] [id number] [place] [address] 99[address] Jun, [facility] [place] [facility] [address] [id number] [place] [address] 9417 Jun, [facility] [place] [facility] [address] [id number] [place] [address] 07 Jun, 2013 [facility] [place] [facility] [address] [id number] [place] [address] 03 Jun, 2013 [facility] [place] [facility] [address] [id number] [place] [address] Jun, [facility] [place] [facility] [address] [id number] [place] [address] 8616 27 May, 2013 [facility] [place] [facility] [address] [id number] [place] [address] 6279 27 May, 2013 [facility] [place] [facility] [address] [id number] [place] [address] 7477 May, [facility] [place] [facility] [address] [id number] [place] [address]- 1656 May, [facility] [place] [facility] [address] [id number] [place] [address]- 9613 20 May, 2013 [facility] [place] [facility] [address] [id number] [place] [address] 20 May, 2013 [facility] [place] [facility] [address] [id number] [place] [address] 4[address] 19 May, 2013 [facility] [place] [facility] [address] [id number] [place] [address]- 2433 19 May, 2013 [facility] [place] [facility] [address] [id number] [place] [address] 9708 17 May, 2013 [facility] [place] [facility] [address] [id number] [place] [address]- 0764 17 May, 2013 [facility] [place] [facility] [address] [id number] [place] [address]- 8531 17 May, 2013 [facility] [place] [facility] [address] [id number] [place] [address]- 2576 17 May, 2013 [facility] [place] [facility] [address] [id number] [place] [address]- 0271 12 May, 2013 [facility] [place] [facility] [address] [id number] [place] [address] 1760 May, [facility] [place] [facility] [address] [id number] [place] [address] 8154 May, [facility] [place] [facility] [address] [id number] [place] [address] 2010 May, [facility] [place] [facility] [address] [id number] [place] [address]- 1995 Apr, [facility] [place] [facility] [address] [id number] [place] [address]- 5697 Apr, [facility] [place] [facility] [address] [id number] [place] [address] 24[address] Mar, [facility] [place] [facility] [address] [id number] [place] [address]- 4936 Mar, [facility] [place] [facility] [address] [id number] [place] [address] 3797 Mar, [facility] [place] [facility] [address] [id number] [place] [address] 5077 Mar, [facility] [place] [facility] [address] [id number] [place] [address]- 6188 Mar, [facility] [place] [facility] [address] [id number] [place] [address] 7314 Mar, [facility] [place] [facility] [address] [id number] [place] [address] 1216 Feb, [facility] [place] [facility] [address] [id number] [place] [address]- 5[address] Feb, [facility] [place] [facility] [address] [id number] [place] [address] 2876 Feb, [facility] [place] [facility] [address] [id number] [place] [address]- 9089 Feb, [facility] [place] [facility] [address] [id number] [address] Feb, [facility] [place] [facility] [address] [id number] [place] [address] Feb, [facility] [place] [facility] [address] [id number] [place] [address] Jan, [facility] [place] [facility] [address] [id number] [place] [address] 2048 Jan, [facility] [place] [facility] [address] [id number] [place] [address]- 6741 Jan, [facility] [place] [facility] [address] [id number] [place] [address]- 0525 Jan, [facility] [place] [facility] [address] [id number] [place] [address] 9938 Jan, [facility] [place] [facility] [address] [id number] [place] [address] 1303 Jan, [facility] [place] [facility] [address] [id number] [place] [address]- 9169 Jan, [facility] [place] [facility] [address] [id number] [place] [address]- 9553 Dec, [facility] [place] [facility] [address] [id number] [place] [address]- 9273 Dec, [facility] [place] [facility] [address] [id number] [place] [address] Dec, [facility] [place] [facility] [address] [id number] [place] [address] 1719 Nov, [facility] [place] [facility] [address] [id number] [place] [address] 3881 Oct, [facility] [place] [facility] [address] [id number] [place] [address] 67[address] Sep, [facility] [place] [facility] [address] [id number] [place] [address] Sep, [facility] [place] [facility] [address] [id number] [place] [address] 2546 Sep, [facility] [address] [id number] [place] [address] 6120 Sep, [facility] [address] [id number] [place] [address]- 2546 Sep, [facility] [address] [id number] [place] [address] 3240 Sep, [facility] [address] [id number] [place] [address]- 0727 Aug, [facility] [address] [id number] [place] [address]- 4006 Aug, [facility] [address] [id number] [place] [address]- 8266 July, [facility] [address] [id number] [place] [address]- 7406 July, [facility] [address] [id number] [place] [address] 3001 July, [facility] [address] [id number] [place] [address] 4876 July, [facility] [address] [id number] [place] [address]- 0526 Jun, [facility] [address] [id number] [place] [address]- 2549 May, [facility] [address] [id number] [place] [address]- 2540 May, [facility] [address] [id number] [place] [address]- 1489 May, [facility] [address] [id number] [place] [address]- 2546 Mar, [facility] [address] [id number] [place] [address]- 2051 Mar, [facility] [place] [facility] [address] [id number] [place] [address]- 5084 Mar, [facility] [place] [facility] [address] [id number] [place] [address]- 3646 Feb, [facility] [place] [facility] [address] [id number] [place] [address]- 8677 Feb, [facility] [place] [facility] [address] [id number] [place] [address]- 8699 Feb, [facility] [place] [facility] [address] [id number] [place] [address]- 5927 Feb, [facility] [place] [facility] [address] [id number] [place] [address]- 1015 Feb, [facility] [place] [facility] [address] [id number] [place] [address]- 7097 Feb, [facility] [place] [facility] [address] [id number] [place] [address]- 3239 Feb, [facility] [place] [facility] [address] [id number] [place] [address]- 8860 Feb, [facility] [place] [facility] [address] [id number] [place] [address]- 9618 Feb, [facility] [place] [facility] [address] [id number] [place] [address]- 1869 Feb, [facility] [place] [facility] [address] [id number] [place] [address]- 6251 Jan, [facility] [place] [facility] [address] [id number] [place] [address]- 3628 Jan, [facility] [place] [facility] [address] [id number] [place] [address]- 7638 Jan, [facility] [place] [facility] [address] [id number] [place] [address]- 5128 Jan, [facility] [place] [facility] [address] [id number] [place] [address]- 6860 Jan, [facility] [place] [facility] [address] [id number] [place] [address]- 9047 Jan, [facility] [place] [facility] [address] [id number] [place] [address]- 7018 Jan, [facility] [place] [facility] [address] [id number] [place] [address]- 2934 Jan, [facility] [place] [facility] [address] [id number] [place] [address]- 8822 Jan, [facility] [place] [facility] [address] [id number] [place] [address], [place] [address]- 5495 Jan, [facility] [place] [facility] [address] [id number] [place] [address]- 4035 Dec, [facility] [place] [facility] [address] [id number] [place] [address]- 7745 Dec, [facility] [place] [facility] [address] [id number] [place] [address]- 2504 Nov, [facility] [place] [facility] [address] [id number] [place] [address]- 6630 24 Nov, 2011 [facility] [place] [facility] [address] [facility] [id number] [place] [address]- 6758 Nov, [facility] [place] [facility] [address] [id number] [place] [address]- 0265 Oct, [facility] [place] [facility] [address] [id number] [place] [address]- 8495 Oct, [facility] [place] [facility] [address] [id number] [place] [address]- 5291 Oct, [facility] [place] [facility] [address] [id number] [place] [address]- 3030 Oct, [facility] [place] [facility] [address] [facility] [id number] [place] [address]- 9664 Aug, [facility] [place] [facility] [address] [id number] [place] [address]- 8780 15 Aug, 2011 [facility] [place] [facility] [address] [id number] [place] [address]- 1909 14 Aug, 2011 [facility] [place] [facility] [address] [id number] [place] [address] 2546 07 Aug, 2011 [facility] [place] [facility] [address] [id number] [place] [address]- 6059 08 Jun, 2011 [facility] [place] [facility] [address] [id number] [place] [address]- 7731 07 May, 2011 [facility] [place] [facility] [address] [id number] [place] [address]- 4349 06 May, 2011 [facility] [place] [facility] [address] [id number] [place] [address]- 4289 20 Apr, 2011 [facility] [place] [facility] [address] [id number] [place] [address]- 8907 20 Apr, 2011 [facility] [place] [facility] [address] [id number] [place] [address]- 9076 15 Apr, 2011 [facility] [place] [facility] [address] [id number] [place] [address]- 4425 14 Apr, 2011 [facility] [place] [facility] [address] [id number] [place] [address]- 3135 24 Mar, 2011 [facility] [place] [facility] [address] [id number] [place] [address]- 2607 Mar, [facility] [place] [facility] [address] [id number] [place] [address]- 1463 Mar, [facility] [place] [facility] [address] [id number] [place] [address]- 2138 18 Mar, 2011 [facility] [place] [facility] [address] [id number] [place] [address]- 5477 13 Mar, 2011 [facility] [place] [facility] [address] [id number] [place] [address]- 4995 13 Mar, 2011 [facility] [place] [facility] [address] [id number] [place] [address]- 7395 Feb, [facility] [place] [facility] [address] [id number] [place] [address]- 2047 Jan, [facility] [place] [facility] [address] [id number] [place] [address]- 9629 15 Jan, 2011 [facility] [place] [facility] [address] [id number] [place] [address]- 8305 Jan, [facility] [place] [facility] [address] [id number] [place] [address]- 4865 Jan, [facility] [place] [facility] [address] [id number] [place] [address]- 4434 Jan, [facility] [place] [facility] [address] [id number] [place] [address]- 1865 Dec, [facility] [place] [facility] [address] [id number] [place] [address]- 1835 May, [facility] [place] [facility] [address] [id number] [place] [address]- 1700 14 Apr, 2010 [facility] [place] [facility] [address] [id number] [place] [address]- 9403 Mar, [facility] [place] [facility] [address] [id number] [place] [address]- 7853 Feb, [facility] [place] [facility] [address] [id number] [place] [address]- 6177 23 Feb, 2010 [facility] [place] [facility] [address] [id number] [place] [address]- 5547 14 Feb, 2010 [facility] [place] [facility] [address] [id number] [place] [address]- 1343 13 Feb, 2010 [facility] [place] [facility] [address] [id number] [place] [address]- 6228 11 Dec, 2009 [facility] [place] [facility] [address] [id number] [place] [address]- 2949 Dec, IMMUNIZATIONS No Known Immunizations SOCIAL HISTORY Never Assessed REASON FOR VISIT wrist pain Pt states wrist pain is about the same, nothing seems to help it. Pt also has a knot on back of her head which is painful and getting bigger. JULI Smith PLAN OF CARE Activity Details Follow Up prn Reason: Future/Pending Procedure I & D SIMPLE ABSCESS VITAL SIGNS Height 67 in 2018-02-01 Weight 192.3 lbs 2018-02-01 Temperature 98.2 degrees Fahrenheit 2018-02-01 Heart Rate 88 bpm 2018-02-01 Respiratory Rate 18 2018-02-01 BMI 30.12 kg/m2 2018-02-01 Blood pressure systolic 118 mmHg 2018-02-01 Blood pressure diastolic 68 mmHg 2018-02-01 MEDICATIONS Medication Instructions Dosage Frequency Start Date End Date Duration Status Quinapril HCl 20 MG TAKE 1 TABLET EVERY DAY 24h 90 Active Aspir-81 81 MG Orally Once a day 1 tablet 24h Active Rlasi-3-munc Ethyl Esters 1 GM Orally Twice a day 2 capsules 12h 08 Dec, 2017 5 Apr, 2018 30 day(s) Active Diclofenac Sodium & Capsaicin 1.5 & 0.025 % Active NovoLog Flexpen 100 UNIT/ML Subcutaneous 3 times a day. 20-30 UNITS Active Levemir FlexTouch 100 units/ml Subcutaneous 2 times a day 65 units 12h 90 Active C-PAP Machine N/A as directed Oct, Active Metformin HCl 500 mg Orally Twice a day 2 tablet 12h 90 Active Metoprolol Tartrate 50 mg TAKE 1 TABLET TWICE DAILY 90 Active RectiCare 5 % Externally Four times a day 1 application to anus as needed for pain 6h May, Active Prozac 20 MG Orally Once a day 1 capsule in the morning 24h May, 30 days Active Nitrostat 0.4 MG Active Gabapentin 400 MG Orally 3 times a day 2 tablets 8h 30 days Active Zenpep 10795-33095 UNIT Orally 4 times a day 1 capsule before meals and snacks 6h 30 Active Atorvastatin Calcium 40 MG Orally Once a day 1 tablet 24h 90 Active Dapagliflozin Propanediol 5 mg Orally Once a day 1 tablet 24h Jun, 30 day(s) Active Pantoprazole Sodium 40 MG TAKE ONE TABLET BY MOUTH ONCE DAILY 90 Active BusPIRone HCl 10 MG TAKE ONE TABLET BY MOUTH IN THE MORNING, ONE TABLET AT NOON AND TWO TABLETS AT BEDTIME 30 Active Effexor XR 150 MG Orally Once a day 1 capsule with food 24h 90 Active Victoza 18 MG/3ML Subcutaneous Once a day Inject 1.8mg 24h 90 Active ReliOn Pen Independence 32G X 4 MM as directed for injecting insulin Sep 90 days Active Amlodipine Besylate 5 MG Orally Once a day 1 tablet 24h Active Oxybutynin Chloride 5 MG Orally Twice a day 1 tablet 12h 90 Active OneTouch Ultra Test - test blood sugar 12h Nov, 90 days Active PredniSONE 20 MG Orally Once a day 2 tablet 24h Jan, 5 days Active Adult Mask N/A as directed July, Active RESULTS No Results PROCEDURES Procedure Date Ordered Result Body Site X-RAY EXAM OF WRIST Feb 01, 2018 GLYCATED HEMOGLOBIN TEST Feb 01, 2018 CULTURE, BACTERIA, OTHER Feb 01, 2018 CULTURE BACTERIA ANAEROBIC Feb 01, 2018 DRAINAGE OF SKIN ABSCESS Feb 01, 2018 INSTRUCTIONS MEDICATIONS ADMINISTERED No Known Medications MEDICAL [...]
--- OUTSIDE RECORDS SUMMARY | 2018-03-31 10:38 | XMS REPORT ---
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 Nov, Active 2361263 Problem Hypertriglyceridemia E78.1 Active 835974118 Problem Gastroparesis K31.84 Active 997130689 Problem Herniation of intervertebral disc at C5-C6 level M50.222 Active 933891711 Problem Rotator cuff syndrome of right shoulder M75.101 Active [id number] Problem Constipation, unspecified constipation type K59.00 Active 65554620 Problem Neuropathy G62.9 Active 791965529 Problem Diabetic polyneuropathy associated with diabetes mellitus due to underlying condition E08.42 Active 20492431 Problem Panic disorder with agoraphobia F40.01 Active 93128741 Problem Bipolar disorder, current episode depressed, moderate F31.32 Active 094551835 Problem Barretts esophagus without dysplasia K22.70 Active 932710209 Problem BRITTANI (generalized anxiety disorder) F41.1 Active 66134333 Problem Obstructive sleep apnea syndrome G47.33 Active 18206398 Problem Essential hypertension I10 Active 74890495 Problem Gastro-esophageal reflux disease without esophagitis K21.9 Active 961933052 Problem Diabetes E11.9 Active 938481242 Problem Type 2 diabetes mellitus with diabetic autonomic (poly)neuropathy E11.43 Active 828458016 Problem Type 2 diabetes mellitus with hyperglycemia E11.65 Active 61585550 ALLERGIES No Information ENCOUNTERS Encounter Location Date Diagnosis [facility] [address] [address] Jan, [place] [address] [address]- 2806 Jan, Right wrist pain M25.531 ; Type 2 diabetes mellitus with diabetic autonomic (poly)neuropathy E11.43 and Abscess L02.[address] [address]- [address] Jan, [place] [address] 7[address]- 0709 Jan, Tenosynovitis, de Quervain M65.[address] [address]- 4405 Dec, Syncope, unspecified syncope type R55 ; Laceration of skin of scalp, sequela S01.01XS ; Hypertriglyceridemia E78.1 and Encounter for immunization Z23 [place] [address] [address]- 8113 Dec, Type 2 diabetes mellitus with hyperglycemia E11.65 [place] [address] 41038- 6600 Oct, Type 2 diabetes mellitus with hyperglycemia E11.65 ; Neuropathy G62.9 ; History of fusion of cervical spine Z98.1 and Obstructive sleep apnea syndrome G47.[address] 24832- 1883 Oct, [place] [address] 92213- 8594 Sep, Type 2 diabetes mellitus with hyperglycemia E11.65 [place] [address] 40027- 1099 July, [place] [address] 45429- 1420 Jun, Type 2 diabetes mellitus with diabetic autonomic (poly) neuropathy E11.43 and Type 2 diabetes mellitus with hyperglycemia E11.65 [place] [address] [place] [id number] [place] [address] 38319- 4373 May, [place] [address] 36393- 7886 May, Bipolar disorder, current episode depressed, moderate F31.32 [facility] [address] [address] May, [facility] [address] 68247- 5795 May, Diabetic polyneuropathy associated with diabetes mellitus due to underlying condition E08.42 [place] [address] 86448- 2182 Apr, [place] [address] 52426- 0815 Feb, Ganglion cyst of dorsum of right wrist M67.431 [place] [address] 91994- 6347 Jan, Other cyst of bone, right forearm M85.631 [place] [address] [address]65- 1980 Jan, [place] [address] 31322- 2515 Jan, Diabetes E11.9 and Right forearm pain M79.631 [place] [address] 00187- 6358 Dec, Encounter for immunization Z23 [place] [address] 16970- 6906 Nov, [place] [address] 91037- 0589 Nov, Type 2 diabetes mellitus with hyperglycemia E11.65 [place] [address] 95331- 0769 15 Nov, 2016 Severe pain of right shoulder M25.511 [facility] [address] [place] [id number] [place] [address] 60508- 6555 Oct, Diabetes E11.9 [facility] [address] [place] [id number] [place] [address] 55951- 2756 Oct, Diabetes E11.9 [facility] [address] [place] [id number] [place] [address] 24563- 0276 Oct, [facility] [address] [place] [id number] [place] [address] 27102- 0331 Oct, [facility] [address] [place] [id number] [place] [address] 90854- 2951 Oct, Rotator cuff syndrome of right shoulder M75.101 [facility] [address] [place] [id number] [place] [address] 70719- 2719 Oct, Diabetes E11.9 [facility] [address] [place] [id number] [place] [address] 50418- 5775 Sep, Type 2 diabetes mellitus with hyperglycemia E11.65 ; Obstructive sleep apnea syndrome G47.33 and Constipation, unspecified constipation type K59.00 [place] [address] [place] [id number] [place] [address] 12969- 1260 Aug, [facility] [address] [place] [id number] [place] [address] 56381- 7200 Aug, [facility] [address] [place] [id number] [place] [address] 42714- 9969 Aug, Type 2 diabetes mellitus with diabetic autonomic (poly) neuropathy E11.43 [facility] [address] [place] [id number] [place] [address] 02601- 0626 July, Type 2 diabetes mellitus with hyperglycemia E11.65 [facility] [address] [place] [id number] [place] [address] 06204- 9098 Jun, Slow transit constipation K59.01 [facility] [address] [place] [id number] [place] [address] 90996- 2601 May, [place] [id number] [place] [address] 21702- 7401 May, Diabetes E11.9 [place] [address] [place] [id number] [place] [address] 60363- 3287 May, [facility] [place] [address] [place] [id number] [place] [address] 65011 -9931 Apr, [place] [address] 72779- 5113 Apr, Gastroenteritis K52.9 [facility] [address] [address]51 Apr, Abdominal pain, unspecified location R10.9 ; Gastroenteritis K52.9 ; Type 2 diabetes mellitus with hyperglycemia E11.65 and group home current use of insulin Z79.[address] 60218- 5914 Apr, [place] [address] [place] [id number] [place] [address] 10537- 8028 Apr, [place] [id number] [place] [address] 12452- 0079 Apr, Diabetes E11.9 ; Gastroparesis K31.84 ; Generalized abdominal pain R10.84 ; Essential hypertension I10 ; Bronchitis J40 and Other fatigue R53.83 [facility] [place] [id number] [place] [address] 85908 -7252 Mar, [facility] [address] [place] [id number] [place] [address] 26202 -8606 Mar, [facility] [place] [id number] [place] [address] 55117 -0260 Mar, Laceration of scalp without foreign body, initial encounter S01.01XA ; Laceration of face, initial encounter S01.81XA and Encounter for immunization Z23 [place] [id number] [place] [address] 52437- 9468 Mar, Type 2 diabetes mellitus with diabetic autonomic (poly) neuropathy E11.43 [place] [address] 62004- 8643 Feb, [place] [id number] [place] [address] 16719- 8505 Feb, Internal hemorrhoids K64.8 and Obstructive sleep apnea syndrome G47.[address] 22360- 0122 Feb, SI (sacroiliac) joint dysfunction M53.[address] 43574- 0171 Jan, [address] 95389- 7524 Dec, Gastroparesis K31.[address] 96505- 6299 Dec, [address] 79662- 1509 Dec, Right hip pain M25.551 ; Nose congested R09.81 and Encounter for immunization Z23 [place] [id number] [place] [address] 08474- 2750 Nov, Diabetes E11.9 ; Gastroparesis K31.84 ; Type 2 diabetes mellitus with diabetic autonomic (poly)neuropathy E11.43 and Obstructive sleep apnea syndrome G47.33 [place] [address] [place] [id number] [place] [address] 56597- 6152 Oct, [address] 83852- 2937 Aug, [place] [id number] [place] [address] 22832- 7716 July, Gastro-esophageal reflux disease without esophagitis K21.[address] [place] [address]- 2822 July, [facility] [address] [place] [id number] [place] [address] 24904- 0313 July, Diabetes E11.9 [facility] [address] [place] [id number] [place] [address] 01084- 5950 July, Diabetes E11.9 ; Obstructive sleep apnea syndrome G47.33 and Neuropathy G62.9 [facility] [address] [place] [id number] [place] [address] 46206- 8682 July, Bipolar disorder, current episode depressed, moderate F31.32 ; BRITTANI (generalized anxiety disorder) F41.1 and Panic disorder with agoraphobia F40.01 [facility] [address] [place] [id number] [place] [address] 57305- 0475 Jun, [facility] [address] [place] [id number] [place] [address] 68594- 6890 Jun, [facility] [address] [place] [id number] [place] [address] 33592- 2646 Jun, [facility] [address] [place] [id number] [place] [address] 63408- 3253 Jun, [facility] [address] [place] [id number] [place] [address] [id number] May, Encounter for dental examination and cleaning without abnormal findings Z01.20 [facility] [address] [place] [id number] [place] [address] 38417- 1483 Apr, [facility] [address] [place] [id number] [place] [address] 29234- 6340 Apr, [facility] [address] [place] [id number] [place] [address] 78056- 6331 Apr, Bipolar disorder, current episode depressed, moderate F31.32 ; BRITTANI (generalized anxiety disorder) F41.1 and Panic disorder with agoraphobia F40.01 [facility] [address] [place] [id number] [place] [address] 90326- 7681 Apr, Hyperlipidemia, unspecified E78.5 [facility] [address] [id number] Apr, Dental caries K02.9 [facility] [address] [place] [id number] [place] [address] [id number] Feb, Dental caries K02.9 and Encounter for dental examination Z01.20 [place] [address] 52730- 2086 Feb, [place] [address] [place] [id number] [place] [address] 33035- 3670 Feb, Diabetes E11.9 ; Insulin long-term use Z79.4 ; Diabetic polyneuropathy associated with diabetes mellitus due to underlying condition E08.42 and Barretts esophagus with high grade dysplasia K22.711 [place] [id number] [place] [address] 30448- 3065 Feb, [place] [id number] [place] [address] 36773- 3080 Jan, Pain in right hip M25.551 and Other chronic pain G89.29 [place] [id number] [place] [address] 17271- 6009 Jan, Impingement syndrome, shoulder, left M75.42 [place] [id number] [place] [address] 68299- 6065 Jan, Bipolar disorder, current episode depressed, moderate F31.32 ; Generalized anxiety disorder F41.1 and Agoraphobia with panic disorder F40.01 [place] [id number] [place] [address] 63814- 9345 Jan, [place] [id number] [place] [address] 97630- 5804 Dec, [place] [address] [place] [id number] [place] [address] 58637- 7836 Dec, [address] [address]- 4144 Dec, Right hip pain M25.551 and Left shoulder pain M25.512 [facility] [address] [place] [id number] [place] [address] 65270- 3014 Dec, Bipolar 1 disorder, depressed, moderate F31.32 ; BRITTANI ( generalized anxiety disorder) F41.1 and Panic disorder with agoraphobia F40.01 [facility] [address] [place] [id number] [place] [address] 62458- 8368 Dec, [facility] [address] [place] [id number] [place] [address] 19406- 3846 Dec, [facility] [address] [place] [id number] [place] [address] 81830- 9565 Nov, [facility] [address] [place] [id number] [place] [address] 20644- 7570 18 Nov, 2014 [facility] [address] [place] [id number] [place] [address] 37601- 4264 14 Nov, 2014 [facility] [address] [place] [id number] [place] [address] 13327- 7897 14 Nov, 2014 Diabetes 250.00 [facility] [address] [place] [id number] [place] [address] 68576- 8803 Oct, [facility] [id number] [place] [address] 71111- 3897 Oct, [facility] [address] [place] [id number] [address]- 4305 Oct, [facility] [address] [place] [id number] [place] [address] 41562- 6848 Oct, [facility] [address] [place] [id number] [address]- 8169 Oct, [facility] [address] [address]- 7871 Oct, [facility] [address] [address]- 7162 Oct, Diabetes 250.00 ; Insomnia 780.52 and Forgetfulness 780.99 [facility] [id number] [address]- 8566 Oct, Depressive disorder, not elsewhere classified 311 [facility] [id number] [address]- 8986 Sep, [facility] [address] [place] [id number] [address]- 6757 Sep, [facility] [address] [place] [id number] [address]- 4623 Sep, [facility] [address] [place] [id number] [address]- 3177 Sep, [facility] [address] [place] [id number] [address]- 0656 Sep, [facility] [id number] [address]- 0400 Sep, [facility] [id number] [address]- 3940 Sep, [facility] [id number] [address]- 0859 Aug, [facility] [id number] [id number] Aug, Dental examination V72.2 [facility] [address] [address]- 2542 Aug, [facility] [id number]- 9908 Aug, [facility] [id number] [address] 6303 July, [facility] [id number] 9299 July, [facility] [place] [facility] [address] [id number] [place] [address]- 7818 July, [facility] [place] [facility] [address] [id number] [place] [address]- 5588 July, [facility] [place] [facility] [address] [id number] [place] [address]- 1885 Jun, [facility] [place] [facility] [address] [id number] [place] [address]- 0474 Jun, [facility] [place] [facility] [address] [id number] [place] [address]- 5395 May, [facility] [place] [facility] [address] [id number] [place] [address]- 4845 May, [facility] [place] [facility] [address] [id number] [place] [address]- 4293 May, [facility] [place] [facility] [address] [id number] [place] [address]- 0404 May, [facility] [place] [facility] [address] [id number] [place] [address]- 6137 May, [facility] [place] [facility] [address] [id number] [place] [address]- 4625 May, [facility] [place] [facility] [address] [id number] [place] [address]- 1097 16 May, 2014 [facility] [place] [facility] [address] [id number] [place] [address]- 6320 May, [facility] [place] [facility] [address] [id number] [place] [address]- 9803 Apr, [facility] [place] [facility] [address] [id number] [place] [address]- 6926 Apr, [facility] [place] [facility] [address] [id number] [place] [address]- 7476 Apr, [facility] [place] [facility] [address] [id number] [place] [address]- 1630 Apr, [facility] [place] [facility] [address] [id number] [place] [address]- 4035 Apr, [facility] [place] [facility] [address] [id number] [place] [address]- 4186 Apr, [facility] [place] [facility] [address] [id number] [place] [address]- 5842 Mar, [facility] [place] [facility] [address] [id number] [place] [address]- 9784 Mar, [facility] [place] [facility] [address] [id number] [place] [address]- 8736 Mar, [facility] [place] [facility] [address] [id number] [place] [address]- 4696 Mar, [facility] [place] [facility] [address] [id number] [place] [address]- 6123 Mar, [facility] [place] [facility] [address] [id number] [place] [address]- 8952 Mar, [facility] [place] [facility] [address] [id number] [place] [address]- 4799 Mar, [facility] [place] [facility] [address] [id number] [place] [address]- 3051 Mar, [facility] [place] [facility] [address] [id number] [place] [address]- 8732 Mar, [facility] [place] [facility] [address] [id number] [place] [address]- 0938 Mar, [facility] [place] [facility] [address] [id number] [place] [address]- 5682 Mar, [facility] [place] [facility] [address] [id number] [place] [address]- 8512 Mar, [facility] [place] [facility] [address] [id number] [place] [address]- 9543 Mar, [facility] [place] [facility] [address] [id number] [place] [address]- 4677 Mar, [facility] [place] [facility] [address] [id number] [place] [address]- 3896 Feb, [facility] [place] [facility] [address] [id number] [place] 2456 Feb, [facility] [place] [facility] [address] [id number] [place] [address]- 7321 Feb, [facility] [place] [facility] [address] [id number] [place] [address]- 8347 Feb, [facility] [place] [facility] [address] [id number] [place] [address]- 0126 Feb, [facility] [place] [facility] [address] [id number] [place] [address]- 7802 Feb, [facility] [place] [facility] [address] [id number] [place] [address]- 8517 Feb, [facility] [place] [facility] [address] [id number] [place] [address]- 3172 Feb, [facility] [place] [facility] [address] [id number] [place] [address]- 2376 Feb, [facility] [place] [facility] [address] [id number] [place] [address]- 6536 16 Feb, 2014 [facility] [place] [facility] [address] [id number] [place] [address]- 4915 Feb, [facility] [place] [facility] [address] [id number] [place] [address]- 6718 Feb, [facility] [place] [facility] [address] [id number] [place] [address]- 1238 Feb, [facility] [place] [facility] [address] [id number] [place] 2939 Feb, [facility] [place] [facility] [address] [id number] [place] [address]- 6786 Jan, [facility] [place] [facility] [address] [id number] [place] [address]- 4600 Jan, [facility] [place] [facility] [address] [id number] [place] [address]- 5577 Jan, [facility] [place] [facility] [address] [id number] [place] [address]- 2870 Jan, [facility] [place] [facility] [address] [id number] [place] [address]- 8485 Dec, [facility] [place] [facility] [address] [id number] [place] 8040 Dec, [facility] [place] [facility] [address] [id number] [place] [address]- 3647 Dec, [facility] [place] [facility] [address] [id number] [place] [address]- 6848 Dec, [facility] [place] [facility] [address] [id number] [place] [address]- 3231 Dec, [facility] [place] [facility] [address] [id number] [place] [address]- 2172 Dec, [facility] [place] [facility] [address] [id number] [place] [address]- 0511 Dec, [facility] [place] [facility] [address] [id number] [address]- 5651 Dec, [facility] [place] [facility] [address] [id number] [address]- 1426 30 Nov, 2013 [facility] [place] [facility] [address] [id number] [place] [address]- 7133 17 Nov, 2013 [facility] [place] [facility] [address] [id number] [place] [address]- 4235 Nov, [facility] [place] [facility] [address] [id number] [place] [address]- 4044 09 Nov, 2013 [facility] [place] [facility] [address] [id number] [place] [address]- 7673 Nov, [facility] [place] [facility] [address] [id number] [place] [address]- 6383 Oct, [facility] [place] [facility] [address] [id number] [place] [address] Oct, [facility] [place] [facility] [address] [id number] [place] [address] Sep, [facility] [place] [facility] [address] [id number] [place] [address] Sep, [facility] [place] [facility] [address] [id number] [place] [address] Sep, [facility] [place] [facility] [address] [id number] [place] [address] Sep, [facility] [place] [facility] [address] [id number] [place] [address] Sep, [facility] [place] [facility] [address] [id number] [place] [address] Sep, [facility] [place] [facility] [address] [id number] [place] [address] Sep, [facility] [place] [facility] [address] [id number] [place] [address] Sep, [facility] [place] [facility] [address] [id number] [place] [address] Sep, [facility] [place] [facility] [address] [id number] [place] [address] Sep, [facility] [place] [facility] [address] [id number] [place] [address] Sep, [facility] [place] [facility] [address] [id number] [place] [address] Sep, [facility] [place] [facility] [address] [id number] [place] [address] Sep, [facility] [place] [facility] [address] [id number] [place] [address] Sep, [facility] [place] [facility] [address] [id number] [place] [address] July, [facility] [place] [facility] [address] [id number] [place] [address] July, [facility] [place] [facility] [address] [id number] [place] [address] July, [facility] [place] [facility] [address] [id number] [place] [address] July, [facility] [place] [facility] [address] [id number] [place] [address] July, [facility] [place] [facility] [address] [id number] [place] [address] July, [facility] [place] [facility] [address] [id number] [place] [address] July, [facility] [place] [facility] [address] [id number] [place] [address] July, [facility] [place] [facility] [address] [id number] [place] [address] Jun, [facility] [place] [facility] [address] [id number] [place] [address] Jun, [facility] [place] [facility] [address] [id number] [place] [address] Jun, [facility] [place] [facility] [address] [id number] [place] [address] Jun, [facility] [place] [facility] [address] [id number] [place] [address] Jun, [facility] [place] [facility] [address] [id number] [place] [address] Jun, [facility] [place] [facility] [address] [id number] [place] [address] Jun, [facility] [place] [facility] [address] [id number] [place] [address] Jun, [facility] [place] [facility] [address] [id number] [place] [address] 27 May, 2013 [facility] [place] [facility] [address] [id number] [place] [address] May, [facility] [place] [facility] [address] [id number] [place] [address] May, [facility] [place] [facility] [address] [address] [id number] [place] [address] May, [facility] [place] [facility] [address] [id number] [place] [address] May, [facility] [place] [facility] [address] [id number] [place] [address] May, [facility] [place] [facility] [address] [id number] [place] [address] 19 May, 2013 [facility] [place] [facility] [address] [id number] [place] [address] 5634 19 May, 2013 [facility] [place] [facility] [address] [id number] [place] [address] 17 May, 2013 [facility] [place] [facility] [address] [id number] [place] [address] 67[address] 17 May, 2013 [facility] [place] [facility] [address] [id number] [place] [address] 6774 17 May, 2013 [facility] [place] [facility] [address] [id number] [place] [address] 9065 17 May, 2013 [facility] [place] [facility] [address] [id number] [place] [address] May, [facility] [place] [facility] [address] [id number] [place] [address] 68[address] May, [facility] [place] [facility] [address] [id number] [place] [address] 4915 May, [facility] [place] [facility] [address] [id number] [place] [address] May, [facility] [place] [facility] [address] [id number] [place] [address] 3255 Apr, [facility] [place] [facility] [address] [id number] [place] [address] 0436 Apr, [facility] [place] [facility] [address] [id number] [place] [address] 30[address] Mar, [facility] [place] [facility] [address] [id number] [place] [address] 1883 Mar, [facility] [place] [facility] [address] [id number] [place] [address] 4[address] Mar, [facility] [place] [facility] [address] [id number] [place] [address] 3571 Mar, [facility] [place] [facility] [address] [id number] [place] [address] 1746 Mar, [facility] [place] [facility] [address] [id number] [place] [address] 3196 Mar, [facility] [place] [facility] [address] [id number] [place] [address]- 3902 Feb, [facility] [place] [facility] [address] [id number] [place] [address] 9968 Feb, [facility] [place] [facility] [address] [id number] [place] [address]235 Feb, [facility] [place] [facility] [address] [id number] [place] [address] 8977 Feb, [facility] [place] [facility] [address] [id number] [place] [address] 3203 Feb, [facility] [place] [facility] [address] [id number] [place] [address] 95[address] Feb, [facility] [place] [facility] [address] [id number] [place] [address]- 2307 Jan, [facility] [place] [facility] [address] [id number] [place] [address] 5140 Jan, [facility] [place] [facility] [address] [id number] [place] [address]- 0476 Jan, [facility] [place] [facility] [address] [id number] [place] [address]- 9313 Jan, [facility] [place] [facility] [address] [id number] [place] [address] 4433 Jan, [facility] [place] [facility] [address] [id number] [place] [address] Jan, [facility] [place] [facility] [address] [id number] [place] [address] 7714 Jan, [facility] [place] [facility] [address] [id number] [address] Dec, [facility] [place] [facility] [address] [id number], [place] [address] Dec, [facility] [place] [facility] [address] [id number], [place] [address] Dec, [facility] [place] [facility] [address] [id number][place] [address] 65[address] Nov, [facility] [place] [facility] [address] [id number], [place] [address] 8435 Oct, [facility] [place] [facility] [address] [id number], [place] [address] Sep, [facility] [place] [facility] [address] [id number], [place] [address] Sep, [facility] [place] [facility] [address] [id number], [place] [address] Sep, [facility] [place] [facility] [address] [id number] [place] [address] 2543 Sep, [facility] [address] [id number] [place] [address] 4875 Sep, [facility] [address] [id number] [place] [address] 7466 Sep, [facility] [address] [id number] [place] [address] 4[address] Aug, [facility] [place] [facility] [address] [id number] [place] [address] 254 Aug, [facility] [address] [id number] [place] [address]32 July, [facility] [address] [id number] [place] [address]- 4836 July, [facility] [address] [id number] [place] [address] 8152 July, [facility] [address] [id number] [place] [address]- 4385 July, [facility] [address] [id number] [place] [address]559 Jun, [facility] [address] [id number] [place] [address] 6917 May, [facility] [address] [id number] [place] [address] 2540 May, [facility] [place] [facility] [address] [id number] [place] [address] 2547 May, [facility] [place] [facility] [address] [id number] [place] [address] 9775 Mar, [facility] [place] [facility] [address] [id number] [place] [address]- 2546 Mar, [facility] [address] [id number] [place] [address]- 6716 Mar, [facility] [place] [facility] [address] [id number] [place] [address]- 7484 Feb, [facility] [place] [facility] [address] [id number] [place] [address]- 8586 Feb, [facility] [place] [facility] [address] [id number] [place] [address] Feb, [facility] [place] [facility] [address] [id number] [place] [address]- 6836 Feb, [facility] [address] [id number] [place] [address]- 2457 Feb, [facility] [place] [facility] [address] [id number] [place] [address]- 7308 Feb, [facility] [address] [id number] [place] [address]- 8973 Feb, [facility] [place] [facility] [address] [id number] [place] [address]- 0267 Feb, [facility] [place] [facility] [address] [id number] [place] [address]- 7737 Feb, [facility] [place] [facility] [address] [id number] [place] [address]- 6114 Feb, [facility] [place] [facility] [address] [id number] [place] [address]- 9288 Jan, [facility] [place] [facility] [address] [id number] [place] [address]- 0011 Jan, [facility] [place] [facility] [address] [id number] [place] [address]- 2296 Jan, [facility] [place] [facility] [address] [id number] [place] [address]- 1877 Jan, [facility] [place] [facility] [address] [id number] [place] [address]- 8294 Jan, [facility] [place] [facility] [address] [id number] [place] [address] 1948 Jan, [facility] [place] [facility] [address] [id number] [place] [address]- 7456 Jan, [facility] [place] [facility] [address] [id number] [place] [address] Jan, [facility] [place] [facility] [address] [id number] [place] [address]- 0688 Jan, [facility] [place] [facility] [address] [id number] [place] [address]- 7635 Jan, [facility] [place] [facility] [address] [id number] [place] [address]- 6512 Dec, [facility] [place] [facility] [address] [id number] [place] [address]- 3076 Dec, [facility] [place] [facility] [address] [id number] [place] [address]- 3659 Nov, [facility] [place] [facility] [address] [id number] [place] [address]- 9400 24 Nov, 2011 [facility] [place] [facility] [address] [id number] [place] [address]- 7826 Nov, [facility] [place] [facility] [address] [id number] [place] [address]- 5619 Oct, [facility] [place] [facility] [address] [id number] [place] [address]- 0239 Oct, [facility] [place] [facility] [address] [id number] [place] [address]- 6604 Oct, [facility] [place] [facility] [address] [id number] [place] [address]- 2406 Oct, [facility] [place] [facility] [address] [id number] [place] [address]- 9729 Aug, [facility] [place] [facility] [address] [id number] [place] [address]- 3347 Aug, [facility] [place] [facility] [address] [id number] [place] [address]- 3105 14 Aug, 2011 [facility] [address] [id number] [place] [address]- 5304 07 Aug, 2011 [facility] [place] [facility] [address] [id number] [place] [address]- 0806 08 Jun, 2011 [facility] [address] [id number] [place] [address]- 6596 07 May, 2011 [facility] [place] [facility] [address] [id number] [place] [address]- 5396 06 May, 2011 [facility] [place] [facility] [address] [id number] [place] [address]- 4724 20 Apr, 2011 [facility] [place] [facility] [address] [id number] [place] [address]- 3096 20 Apr, 2011 [facility] [place] [facility] [address] [id number] [place] [address]- 7239 15 Apr, 2011 [facility] [address] [id number] [place] [address]- 6909 14 Apr, 2011 [facility] [place] [facility] [address] [id number] [place] [address]- 2546 24 Mar, 2011 [facility] [place] [facility] [address] [id number] [place] [address]- 1568 Mar, [facility] [place] [facility] [address] [id number] [place] [address]- 6748 19 Mar, 2011 [facility] [place] [facility] [address] [id number] [place] [address]- 1203 18 Mar, 2011 [facility] [place] [facility] [address] [id number] [place] [address]- 5826 13 Mar, 2011 [facility] [place] [facility] [address] [id number] [place] [address]- 2806 13 Mar, 2011 [facility] [place] [facility] [address] [id number] [place] [address] 2891 Feb, [facility] [address] [id number] [address] Jan, [facility] [address] [id number] [address] Jan, [facility] [address] [id number] [address] Jan, [facility] [address] [id number], [place] [address]- 0431 Jan, [facility] [address] [id number] [place] [address]- 6242 Jan, [facility] [address] [id number], [place] [address]- 3515 Dec, [facility] [address] [id number], [place] [address]- 7194 May, [facility] [address] [id number][place] [address]- 1661 14 Apr, 2010 [facility] [address] [id number][place] [address]- 1251 Mar, [facility] [address] [id number], [place] [address]- 2449 Feb, [facility] [address] [id number], [place] [address]- 5132 Feb, [facility] [address] [id number][place] [address]- 0946 14 Feb, 2010 [facility] [address] [id number][place] [address]555 Feb, [facility] [address] [id number][place] [address]- 5452 Dec, [facility] [address] [id number][place] [address]- 4589 Dec, IMMUNIZATIONS No Known Immunizations SOCIAL HISTORY Never Assessed REASON FOR VISIT Orders from Results PLAN OF CARE VITAL SIGNS MEDICATIONS Medication Instructions Dosage Frequency Start Date End Date Duration Status Cipro 500 MG Orally 2 times a day 1 tablet 12h 26 Jan, 2018 Feb, 7 days Active RESULTS No Results PROCEDURES No [...]
--- OUTSIDE RECORDS SUMMARY | 2018-03-31 10:39 | XMS REPORT ---
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 Active 001160009 Problem Hypertriglyceridemia E78.1 Active 599089479 Problem Gastroparesis K31.84 Active 374775190 Problem Neuropathy G62.9 Active 352633626 Problem Herniation of intervertebral disc at C5-C6 level M50.222 Active 075853405 Problem Constipation, unspecified constipation type K59.00 Active 80573690 Problem Irritable bowel syndrome, unspecified type K58.9 Active 86978121 Problem Diabetic polyneuropathy associated with diabetes mellitus due to underlying condition E08.42 Active 56828906 Problem Rotator cuff syndrome of right shoulder M75.101 Active [id number] Problem BRITTANI (generalized anxiety disorder) F41.1 Active 77227139 Problem Panic disorder with agoraphobia F40.01 Active 11795166 Problem 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 Nov, Active 8483868 Problem Barretts esophagus without dysplasia K22.70 Active 888879992 Problem Type 2 diabetes mellitus with diabetic autonomic (poly)neuropathy E11.43 Active 933315231 Problem Obstructive sleep apnea syndrome G47.33 Active 29708312 Problem Bipolar disorder, current episode depressed, moderate F31.32 Active 469120380 Problem Essential hypertension I10 Active 87644475 Problem Gastro-esophageal reflux disease without esophagitis K21.9 Active 939689497 Problem Diabetes E11.9 Active 310205311 ALLERGIES Substance Reaction Event Type Date Status Codeine Sulfate hives Drug Allergy Jan, Active Advil rash Drug Allergy Jan, Active All nsaids Unknown Non Drug Allergy Jan, Active ENCOUNTERS Encounter Location Date Diagnosis [place] [address] [address] Jan, [place] [address] 35784- 3876 Jan, [place] [address] 19754- 2594 Jan, Tenosynovitis, de Quervain M65.4 [place] [address] 71135- 9163 08 Dec, 2017 Syncope, unspecified syncope type R55 ; Laceration of skin of scalp, sequela S01.01XS ; Hypertriglyceridemia E78.1 and Encounter for immunization Z23 [place] [address] 88958- 3099 Dec, Type 2 diabetes mellitus with hyperglycemia E11.65 [place] [address] 68905- 0201 Oct, Type 2 diabetes mellitus with hyperglycemia E11.65 ; Neuropathy G62.9 ; History of fusion of cervical spine Z98.1 and Obstructive sleep apnea syndrome G47.33 [place] [address] [place] [id number] [place] [address] 23276- 4440 Oct, [place] [address] 87889- 3851 Sep, Type 2 diabetes mellitus with hyperglycemia E11.65 [place] [address] 09367- 6808 July, [place] [address] 82576- 1852 Jun, Type 2 diabetes mellitus with diabetic autonomic (poly) neuropathy E11.43 and Type 2 diabetes mellitus with hyperglycemia E11.65 [place] [address] 72335- 1448 May, [place] [address] [place] [id number] [place] [address] 89526- 2859 May, Bipolar disorder, current episode depressed, moderate F31.32 [facility] [address] [address] -[address] May, [facility] [address] 6[address]- 7919 May, Diabetic polyneuropathy associated with diabetes mellitus due to underlying condition E08.42 [place] [address] 85604- 0329 Apr, [place] [address] 84992- 0986 Feb, Ganglion cyst of dorsum of right wrist M67.431 [place] [address] 61950- 9118 Jan, Other cyst of bone, right forearm M85.631 [place] [address] 89482- 5597 Jan, [place] [address] 40621- 1380 Jan, Diabetes E11.9 and Right forearm pain M79.631 [place] [address] 99146- 5459 Dec, Encounter for immunization Z23 [place] [address] 63894- 2588 Nov, [place] [address] [place] [id number] [place] [address] 63690- 6430 Nov, Type 2 diabetes mellitus with hyperglycemia E11.65 [place] [address] [place] [id number] [place] [address] 74228- 4981 15 Nov, 2016 Severe pain of right shoulder M25.511 [place] [address] 82688- 8805 Oct, Diabetes E11.9 [facility] [address] [address] 4843 Oct, Diabetes E11.9 [facility] [address] [place] [id number] [place] [address] 30278- 5762 Oct, [facility] [address] [place] [id number] [place] [address] 75833- 4997 Oct, [facility] [address] [place] [id number] [place] [address] 94565- 2523 Oct, Rotator cuff syndrome of right shoulder M75.101 [facility] [address] [place] [id number] [place] [address] 26412- 6133 Oct, Diabetes E11.9 [facility] [address] [place] [id number] [place] [address] 04199- 1259 Sep, Type 2 diabetes mellitus with hyperglycemia E11.65 ; Obstructive sleep apnea syndrome G47.33 and Constipation, unspecified constipation type K59.00 [facility] [address] [place] [id number] [place] [address] 69264- 6809 Aug, [facility] [address] [place] [id number] [place] [address] 42185- 8456 Aug, [facility] [address] [place] [address] 64864- 8957 Aug, Type 2 diabetes mellitus with diabetic autonomic (poly) neuropathy E11.43 [facility] [address] [place] [id number] [place] [address] 83085- 8874 July, Type 2 diabetes mellitus with hyperglycemia E11.65 [facility] [address] [place] [address] 85532- 9927 Jun, Slow transit constipation K59.01 [facility] [address] [place] [id number] [place] [address] 05016- 2334 May, [facility] [address] [place] [id number] [place] [address] 59339- 2460 16 Mar, 2017 Diabetes E11.9 [place] [address] [place] [address] 77800- 0220 May, [facility] [place] [address] [place] [id number] [place] [address] 62738 -8144 Apr, [place] [address] [place] [id number] [place] [address] 25291- 8889 Apr, Gastroenteritis K52.9 [facility] [place] [address] 46788 -5588 Apr, Abdominal pain, unspecified location R10.9 ; Gastroenteritis K52.9 ; Type 2 diabetes mellitus with hyperglycemia E11.65 and 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 [place] [address] [place] [id number] [place] [address] 09990- 5874 Apr, [place] [address] [place] [id number] [place] [address] 73277- 6194 Apr, [place] [address] [place] [id number] [place] [address] 63030- 9306 Apr, Diabetes E11.9 ; Gastroparesis K31.84 ; Generalized abdominal pain R10.84 ; Essential hypertension I10 ; Bronchitis J40 and Other fatigue R53.83 [facility] [place] [id number] [place] [address] 62453 -7375 Mar, [facility] [place] [id number] [place] [address] 69984 -7273 Mar, [facility] [place] [id number] [place] [address] 13427 -2090 Mar, Laceration of scalp without foreign body, initial encounter S01.01XA ; Laceration of face, initial encounter S01.81XA and Encounter for immunization Z23 [place] [address] [place] [address] 22009- 5633 Mar, Type 2 diabetes mellitus with diabetic autonomic (poly) neuropathy E11.43 [place] [address] [place] [id number] [place] [address] 10088- 0036 Feb, [place] [address] 42238- 6766 Feb, Internal hemorrhoids K64.8 and Obstructive sleep apnea syndrome G47.33 [place] [address] 37594- 9084 Feb, SI (sacroiliac) joint dysfunction M53.3 [place] [address] 04538- 3421 Jan, [place] [address] 89697- 4614 Dec, Gastroparesis K31.84 [place] [address] 04806- 6462 Dec, [place] [address] 50183- 6667 Dec, Right hip pain M25.551 ; Nose congested R09.81 and Encounter for immunization Z23 [address] 19613- 4109 Nov, Diabetes E11.9 ; Gastroparesis K31.84 ; Type 2 diabetes mellitus with diabetic autonomic (poly)neuropathy E11.43 and Obstructive sleep apnea syndrome G47.33 [place] [address] [place] [id number] [place] [address] 99488- 6429 Oct, [place] [address] 75322- 8305 Aug, [place] [address] 85061- 9854 July, Gastro-esophageal reflux disease without esophagitis K21.9 [place] [address] 01454- 2272 July, [place] [address] 83086- 3728 July, Diabetes E11.9 [place] [address] [place] [id number] [place] [address] 99637- 1189 July, Diabetes E11.9 ; Obstructive sleep apnea syndrome G47.33 and Neuropathy G62.9 [place] [address] [place] [id number] [place] [address] 66923- 1547 July, Bipolar disorder, current episode depressed, moderate F31.32 ; BRITTANI (generalized anxiety disorder) F41.1 and Panic disorder with agoraphobia F40.01 [place] [address] [place] [id number] [place] [address] 34905- 3189 Jun, [place] [address] 13590- 7995 Jun, [place] [address] [place] [id number] [place] [address] 79203- 6148 Jun, [place] [address] [place] [id number] [place] [address] 63905- 4549 Jun, [facility] [address] [place] [id number] [place] [address] [id number] May, Encounter for dental examination and cleaning without abnormal findings Z01.20 [place] [address] [place] [id number] [place] [address] 59187- 8619 Apr, [place] [address] [place] [id number] [place] [address] 09109- 2483 Apr, [facility] [address] [place] [id number] [place] [address] 76294- 5973 Apr, Bipolar disorder, current episode depressed, moderate F31.32 ; BRITTANI (generalized anxiety disorder) F41.1 and Panic disorder with agoraphobia F40.01 [facility] [address] [place] [id number] [place] [address] 22103- 6514 Apr, Hyperlipidemia, unspecified E78.5 [facility] [address] [place] [id number] [place] [address] [id number] Apr, Dental caries K02.9 [facility] [address] [place] [address] [id number] Feb, Dental caries K02.9 and Encounter for dental examination Z01.20 [facility] [address] [place] [id number] [place] [address] 93451- 7200 Feb, [place] [address] 20338- 9857 Feb, Diabetes E11.9 ; Insulin long-term use Z79.4 ; Diabetic polyneuropathy associated with diabetes mellitus due to underlying condition E08.42 and Barretts esophagus with high grade dysplasia K22.711 [place] [address] [place] [id number] [place] [address] 75538- 7215 Feb, [place] [address] [place] [id number] [place] [address] 77885- 5936 Jan, Pain in right hip M25.551 and Other chronic pain G89.29 [place] [address] [place] [id number] [place] [address] 17337- 4886 Jan, Impingement syndrome, shoulder, left M75.42 [place] [address] [place] [id number] [place] [address] 80741- 8219 Jan, Bipolar disorder, current episode depressed, moderate F31.32 ; Generalized anxiety disorder F41.1 and Agoraphobia with panic disorder F40.01 [place] [address] [place] [id number] [place] [address] 55993- 8138 Jan, [facility] [address] [place] [id number] [place] [address] 01876- 9452 Dec, [place] [address] [place] [id number] [place] [address] 39352- 9208 Dec, [facility] [address] [place] [id number] [place] [address] 27432- 6761 Dec, Right hip pain M25.551 and Left shoulder pain M25.512 [facility] [address], [place] [address]- 2514 08 Dec, 2014 Bipolar 1 disorder, depressed, moderate F31.32 ; BRITTANI ( generalized anxiety disorder) F41.1 and Panic disorder with agoraphobia F40.01 [facility] [address] [place] [address] [address]- 3888 Dec, [facility] [address] [place] [id number] [place] [address] 73667- 6107 Dec, [facility] [address] [place] [id number] [place] [address] 25932- 4113 28 Nov, 2014 [facility] [address] [place] [id number] [place] [address] 53046- 3750 18 Nov, 2014 [facility] [address] [place] [id number] [place] [address] 91508- 7899 Nov, [facility] [address] [place] [id number] [place] [address] 09856- 0045 Nov, Diabetes 250.00 [facility] [address] [place] [id number] [place] [address] 82997- 7212 Oct, [facility] [address] [place] [id number] [place] [address] 82974- 6469 Oct, [facility] [address] [place] [address] 89328- 2541 Oct, [facility] [address] [place] [id number] [place] [address] 19198- 9248 Oct, [facility] [address] [place] [id number] [address]- 4725 Oct, [facility] [address] [place] [id number] [place] [address] 71300- 6297 Oct, [facility] [address] [place] [id number] [address]- 2035 Oct, Diabetes 250.00 ; Insomnia 780.52 and Forgetfulness 780.99 [facility] [address] [facility] [id number] [address]- 0802 Oct, Depressive disorder, not elsewhere classified 311 [facility] [address] [id number] [place] [address]- 6726 Sep, [facility] [address] [place] [id number] [address]- 9503 Sep, [facility] [address] [facility] [id number] [address]- 9701 Sep, [facility] [address] [place] [id number] [address]- 3744 Sep, [facility] [address] [place] [id number] [address]- 3405 Sep, [facility] [address] [address]- 9950 Sep, [facility] [address] [place] [id number], [place] [address]- 5972 Sep, [facility] [address], [place] [address]- 3334 Aug, [facility] [address] [place] [id number] [id number] Aug, Dental examination V72.2 [facility] [address] [place] [id number] [address]- 5555 Aug, [facility] [address] [place] [id number] [address]- 3931 Aug, [facility] [address] 8278 July, [facility] [address] [place] [id number] 2656 July, [facility] [address] [place] [id number] 5327 July, [facility] [place] [facility] [address] [id number] [place] [address]- 1310 July, [facility] [place] [facility] [address] [id number] [place] [address]- 2962 14 Jun, 2014 [facility] [place] [facility] [address] [id number] [place] [address]- 4633 Jun, [facility] [place] [facility] [address] [id number] [place] [address]- 8800 May, [facility] [place] [facility] [address] [id number] [place] [address]- 3076 23 May, 2014 [facility] [place] [facility] [address] [id number] [place] [address]- 8789 May, [facility] [place] [facility] [address] [id number] [place] [address]- 7436 19 May, 2014 [facility] [place] [facility] [address] [id number] [place] [address]- 0026 17 May, 2014 [facility] [place] [facility] [address] [id number] [place] [address]- 6807 17 May, 2014 [facility] [place] [facility] [address] [id number] [place] [address]- 4159 16 May, 2014 [facility] [place] [facility] [address] [id number] [place] [address]- 6058 May, [facility] [place] [facility] [address] [id number] [place] [address]- 7988 25 Apr, 2014 [facility] [place] [facility] [address] [id number] [place] [address]- 2011 Apr, [facility] [place] [facility] [address] [id number] [place] [address]- 1963 Apr, [facility] [place] [facility] [address] [id number] [place] [address]- 6383 Apr, [facility] [place] [facility] [address] [id number] [place] [address]- 8104 Apr, [facility] [place] [facility] [address] [id number] [place] [address]- 3630 Apr, [facility] [place] [facility] [address] [id number] [place] [address]- 2300 Mar, [facility] [place] [facility] [address] [id number] [place] [address]- 3773 Mar, [facility] [place] [facility] [address] [id number] [place] [address]- 9703 Mar, [facility] [place] [facility] [address] [id number] [place] [address]- 8430 Mar, [facility] [place] [facility] [address] [id number] [place] [address]- 6627 Mar, [facility] [place] [facility] [address] [id number] [place] [address]- 4550 Mar, [facility] [place] [facility] [address] [id number] [place] [address]- 4580 Mar, [facility] [place] [facility] [address] [id number] [place] [address]- 7177 Mar, [facility] [place] [facility] [address] [id number] [place] [address]- 5877 Mar, [facility] [place] [facility] [address] [id number] [place] [address]- 2566 Mar, [facility] [place] [facility] [address] [id number] [place] [address]- 6487 Mar, [facility] [place] [facility] [address] [id number] [place] [address]- 6062 Mar, [facility] [place] [facility] [address] [id number] [place] [address]- 1939 Mar, [facility] [place] [facility] [address] [id number] [place] [address]- 6395 Mar, [facility] [place] [facility] [address] [id number] [place] [address]- 0678 30 Feb, 2014 [facility] [address] [id number] [place] [address]- 5356 30 Feb, 2014 [facility] [place] [facility] [address] [id number] [place] [address]- 3686 Feb, [facility] [address] [id number] [place] [address]- 6966 Feb, [facility] [place] [facility] [address] [id number] [place] [address]- 6228 Feb, [facility] [place] [facility] [address] [id number] [place] [address]- 6746 Feb, [facility] [place] [facility] [address] [id number] [place] [address]- 4541 16 Feb, 2014 [facility] [place] [facility] [address] [id number] [place] [address]- 1960 16 Feb, 2014 [facility] [address] [id number] [place] [address]- 3382 16 Feb, 2014 [facility] [place] [facility] [address] [id number] [place] [address]- 7432 16 Feb, 2014 [facility] [address] [id number] [place] [address]- 7382 Feb, [facility] [place] [facility] [address] [id number] [place] [address]- 6560 Feb, [facility] [place] [facility] [address] [id number] [place] 3746 Feb, [facility] [place] [facility] [address] [id number] [place] [address]- 9719 Feb, [facility] [place] [facility] [address] [id number] [place] 5069 Jan, [facility] [place] [facility] [address] [id number] [place] [address]- 5333 Jan, [facility] [place] [facility] [address] [id number] [place] [address]- 3608 Jan, [facility] [place] [facility] [address] [id number] [place] [address]- 0751 Jan, [facility] [place] [facility] [address] [id number] [place] [address]- 5461 Dec, [facility] [place] [facility] [address] [id number] [place] [address]- 2863 Dec, [facility] [place] [facility] [address] [id number] [place] 5614 Dec, [facility] [place] [facility] [address] [id number] [place] [address]- 4684 Dec, [facility] [place] [facility] [address] [id number] [place] [address]- 8211 Dec, [facility] [place] [facility] [address] [id number] [place] [address]- 8933 Dec, [facility] [place] [facility] [address] [id number] [place] [address] Dec, [facility] [place] [facility] [address] [id number], [place] [address] Dec, [facility] [place] [facility] [address] [id number], [place] [address] 30 Nov, 2013 [facility] [place] [facility] [address] [id number], [place] [address] 17 Nov, 2013 [facility] [place] [facility] [address] [id number] [place] [address] 17 Nov, 2013 [facility] [place] [facility] [address] [id number], [place] [address] Nov, 2013 [facility] [place] [facility] [address] [id number], [place] [address] Nov, 2013 [facility] [place] [facility] [address] [id number], [place] [address] Oct, [facility] [place] [facility] [address] [id number] [place] [address] Oct, [facility] [place] [facility] [address] [id number] [place] [address] Sep, [facility] [place] [facility] [address] [id number] [place] [address]- [address] Sep, [facility] [place] [facility] [address] [id number] [place] [address]- [address] Sep, [facility] [place] [facility] [address] [id number] [place] [address] Sep, [facility] [place] [facility] [address] [id number] [place] [address]- [address] Sep, [facility] [place] [facility] [address] [id number] [place] [address]- [address] Sep, [facility] [place] [facility] [address] [id number] [place] [address] 39[address] Sep, [facility] [place] [facility] [address] [id number] [place] [address] Sep, [facility] [place] [facility] [address] [id number] [place] [address] Sep, [facility] [place] [facility] [address] [id number] [place] [address]- [address] Sep, [facility] [place] [facility] [address] [id number] [place] [address]- [address] Sep, [facility] [place] [facility] [address] [id number] [place] [address]- [address] Sep, [facility] [place] [facility] [address] [id number] [place] [address] Sep, [facility] [place] [facility] [address] [id number] [place] [address]- [address] Sep, [facility] [place] [facility] [address] [id number] [place] [address] July, [facility] [place] [facility] [address] [id number] [place] [address] July, [facility] [place] [facility] [address] [id number] [place] [address] July, [facility] [place] [facility] [address] [id number] [place] [address] July, [facility] [place] [facility] [address] [id number] [place] [address]- [address]27 July, [facility] [place] [facility] [address] [id number] [place] [address] July, [facility] [place] [facility] [address] [id number] [place] [address] July, [facility] [place] [facility] [address] [id number] [place] [address] July, [facility] [place] [facility] [address] [id number] [place] [address] Jun, [facility] [place] [facility] [address] [id number] [place] [address] Jun, [facility] [place] [facility] [address] [id number] [place] [address] Jun, [facility] [place] [facility] [address] [id number] [place] [address] 9566 Jun, [facility] [place] [facility] [address] [id number] [place] [address] 139[address] Jun, [facility] [place] [facility] [address] [id number] [place] [address] Jun, [facility] [place] [facility] [address] [id number] [place] [address] Jun, [facility] [place] [facility] [address] [id number] [place] [address]- [address] 03 Jun, 2013 [facility] [place] [facility] [address] [id number] [place] [address]- 8823 27 May, 2013 [facility] [place] [facility] [address] [id number] [place] [address]- 2099 27 May, 2013 [facility] [place] [facility] [address] [id number] [place] [address] 97[address] 21 May, 2013 [facility] [place] [facility] [address] [id number] [place] [address]- 1621 21 May, 2013 [facility] [place] [facility] [address] [id number] [place] [address]- 2[address] 20 May, 2013 [facility] [place] [facility] [address] [id number] [place] [address]- 7142 20 May, 2013 [facility] [place] [facility] [address] [id number] [place] [address]- 8792 19 May, 2013 [facility] [place] [facility] [address] [id number] [place] [address]- 4893 19 May, 2013 [facility] [place] [facility] [address] [id number] [place] [address]- 7996 17 May, 2013 [facility] [place] [facility] [address] [id number] [place] [address]- 4864 17 May, 2013 [facility] [place] [facility] [address] [id number] [place] [address]- 2461 17 May, 2013 [facility] [place] [facility] [address] [id number] [place] [address]- 5419 17 May, 2013 [facility] [place] [facility] [address] [id number] [place] [address]- 9995 12 May, 2013 [facility] [place] [facility] [address] [id number] [place] [address]- 2280 12 May, 2013 [facility] [place] [facility] [address] [id number] [place] [address]- 4805 05 May, 2013 [facility] [place] [facility] [address] [id number] [place] [address]- 7517 May, [facility] [address] [id number] [place] [address]- 6872 Apr, [facility] [address] [id number] [place] [address]- 1743 Apr, [facility] [address] [id number] [place] [address]- 6073 Mar, [facility] [address] [id number] [place] [address]- 0808 Mar, [facility] [address] [id number] [place] [address]- 3588 Mar, [facility] [address] [id number] [place] [address]- 1335 Mar, [facility] [address] [id number] [place] [address]- 7079 Mar, [facility] [address] [id number] [place] [address]- 1463 Mar, [facility] [address] [id number] [place] [address]- 3747 Feb, [facility] [address] [id number] [place] [address]- 6765 Feb, [facility] [address] [id number] [place] [address]- 5236 Feb, [facility] [address] [id number] [place] [address]- 7216 Feb, [facility] [place] [facility] [address] [id number] [place] [address]- 1337 Feb, [facility] [place] [facility] [address] [id number] [place] [address]- 0492 Feb, [facility] [address] [id number] [place] [address]- 1048 Jan, [facility] [place] [facility] [address] [id number] [place] [address]- 8168 Jan, [facility] [place] [facility] [address] [id number] [place] [address]- 8069 Jan, [facility] [place] [facility] [address] [id number] [place] [address]- 9327 Jan, [facility] [place] [facility] [address] [id number] [place] [address]- 0080 Jan, [facility] [place] [facility] [address] [id number] [place] [address]- 5334 Jan, [facility] [place] [facility] [address] [id number] [place] [address]- 2800 Jan, [facility] [place] [facility] [address] [id number] [place] [address]- 3642 Dec, [facility] [place] [facility] [address] [id number] [place] [address]- 6127 Dec, [facility] [place] [facility] [address] [id number] [place] [address]- 3075 Dec, [facility] [place] [facility] [address] [id number] [place] [address]- 0117 Nov, [facility] [place] [facility] [address] [id number] [place] [address]- 2732 Oct, [facility] [place] [facility] [address] [id number], [place] [address] Sep, [facility] [place] [facility] [address] [id number] [place] [address]- 6710 Sep, [facility] [place] [facility] [address] [id number] [place] [address]- 7289 Sep, [facility] [place] [facility] [address] [id number] [place] [address]- 3664 Sep, [facility] [place] [facility] [address] [id number] [address] Sep, [facility] [address] [id number] [place] [address]- 6988 Sep, [facility] [address] [id number] [place] [address]- 6340 Aug, [facility] [address] [id number] [place] [address]- 3613 Aug, [facility] [address] [id number] [place] [address]- 7083 July, [facility] [address] [id number] [place] [address]- 7184 July, [facility] [address] [id number] [place] [address]- 8103 July, [facility] [address] [id number] [place] [address]- 7203 July, [facility] [address] [id number] [place] [address]- 0518 Jun, [facility] [address] [id number] [place] [address]- 2014 May, [facility] [place] [facility] [address] [id number] [place] [address]- 4398 May, [facility] [address] [id number] [place] [address]- 8334 May, [facility] [place] [facility] [address] [id number] [place] [address]- 4944 Mar, [facility] [place] [facility] [address] [id number] [place] [address]- 0104 Mar, [facility] [place] [facility] [address] [id number] [place] [address]- 3682 Mar, [facility] [place] [facility] [address] [id number] [place] [address]- 0925 Feb, [facility] [place] [facility] [address] [id number] [place] [address]- 4740 Feb, [facility] [place] [facility] [address] [id number] [place] [address]- 9416 Feb, [facility] [place] [facility] [address] [id number] [place] [address]- 9956 Feb, [facility] [place] [facility] [address] [id number] [place] [address]- 2046 Feb, [facility] [place] [facility] [address] [id number] [place] [address]- 7796 Feb, [facility] [place] [facility] [address] [id number] [place] [address]- 6366 Feb, [facility] [place] [facility] [address] [id number] [place] [address]- 7111 Feb, [facility] [place] [facility] [address] [id number] [place] [address]- 8813 Feb, [facility] [place] [facility] [address] [id number] [place] [address]- 9294 Feb, [facility] [place] [facility] [address] [id number] [place] [address]- 3015 Jan, [facility] [place] [facility] [address] [id number] [place] [address]- 1308 Jan, [facility] [place] [facility] [address] [id number] [place] [address]- 3557 Jan, [facility] [place] [facility] [address] [id number] [place] [address] 2542 Jan, [facility] [place] [facility] [address] [id number] [place] [address]- 3786 Jan, [facility] [place] [facility] [address] [id number] [place] [address]- 9796 Jan, [facility] [place] [facility] [address] [id number] [place] [address]- 9756 Jan, [facility] [place] [facility] [address] [id number] [place] [address]- 4524 Jan, [facility] [place] [facility] [address] [id number] [place] [address]- 1605 Jan, [facility] [place] [facility] [address] [id number] [place] [address]- 0223 Jan, [facility] [place] [facility] [address] [id number] [place] [address]- 1249 Dec, [facility] [place] [facility] [address] [id number] [place] [address]- 4394 Dec, [facility] [place] [facility] [address] [id number] [place] [address]- 3431 26 Nov, 2011 [facility] [place] [facility] [address] [id number] [place] [address]- 0767 24 Nov, 2011 [facility] [place] [facility] [address] [id number] [place] [address]- 5381 05 Nov, 2011 [facility] [place] [facility] [address] [id number] [place] [address]- 3244 Oct, [facility] [place] [facility] [address] [id number], [place] [address]- 9590 Oct, [facility] [place] [facility] [address] [id number], [place] [address]- 5921 Oct, [facility] [place] [facility] [address] [id number], [place] [address]- 4628 Oct, [facility] [place] [facility] [address] [id number] [place] [address]- 5157 Aug, [facility] [place] [facility] [address] [id number], [place] [address]- 0776 15 Aug, 2011 [facility] [place] [facility] [address] [id number] [place] [address]- 2836 14 Aug, 2011 [facility] [place] [facility] [address] [id number] [place] [address]- 8837 07 Aug, 2011 [facility] [address] [id number] [place] [address]- 0361 08 Jun, 2011 [facility] [place] [facility] [address] [id number] [place] [address]- 9996 07 May, 2011 [facility] [address] [id number] [place] [address]- 8406 06 May, 2011 [facility] [place] [facility] [address] [id number] [place] [address]- 4623 20 Apr, 2011 [facility] [place] [facility] [address] [id number] [place] [address]- 4846 20 Apr, 2011 [facility] [place] [facility] [address] [id number] [place] [address]- 5746 15 Apr, 2011 [facility] [address] [id number] [place] [address]- 8324 14 Apr, 2011 [facility] [address] [id number] [place] [address]- 2073 24 Mar, 2011 [facility] [place] [facility] [address] [id number] [place] [address]- 6112 Mar, [facility] [address] [id number] [place] [address]- 9393 19 Mar, 2011 [facility] [place] [facility] [address] [id number] [place] [address]- 5414 18 Mar, 2011 [facility] [place] [facility] [address] [id number] [place] [address]- 1194 13 Mar, 2011 [facility] [place] [facility] [address] [id number] [place] [address]- 0552 Mar, [facility] [place] [facility] [address] [id number] [place] [address]- 3166 Feb, [facility] [place] [facility] [address] [id number] [place] [address]- 6192 Jan, [facility] [address] [facility] [id number], [place] [address]- 1610 Jan, [facility] [address] [facility] [place] [id number] [address]69 Jan, [facility] [address] [facility] [place] [id number], [place] [address]- 4589 Jan, [facility] [address] [facility] [place] [id number], [place] [address]- 5696 Jan, [facility] [address] [facility] [place] [id number] [address]393 Dec, [facility] [address] [facility] [place] [id number], [place] [address]- 9096 May, [facility] [id number] [place] [address]283- 2717 14 Apr, 2010 [facility] [id number] [place] [address]- 3404 Mar, [facility] [address] [address]- 4237 Feb, [facility] [address], [place] [address]- 6982 Feb, [facility] [address], [place] [address]- 7881 14 Feb, 2010 [facility] [address] [address]- 6402 13 Feb, 2010 [facility] [address] [id number] [address]- 2050 Dec, [facility] [address] [address]- 3050 Dec, IMMUNIZATIONS No Known Immunizations SOCIAL HISTORY Never Assessed REASON FOR VISIT Cyst eval - rt wrist kPage [place] , been wearing soft brace but the seam is rubbing it [place] BUSTOS , makes hand go numb and tingling- thumb in pain from it KPage JULI PLAN OF CARE Activity Details Follow Up Routine appt Reason: VITAL SIGNS Height 67 in 2018-01-16 Weight 186.7 lbs 2018-01-16 Temperature 97 degrees Fahrenheit 2018-01-16 Heart Rate 96 bpm 2018-01-16 Respiratory Rate 18 2018-01-16 BMI 29.24 kg/m2 2018-01-16 Blood pressure systolic 118 mmHg 2018-01-16 Blood pressure diastolic 70 mmHg 2018-01-16 MEDICATIONS Medication Instructions Dosage Frequency Start Date End Date Duration Status C-PAP Machine N/A as directed Oct, Active BusPIRone HCl 10 MG TAKE ONE TABLET BY MOUTH IN THE MORNING, ONE TABLET AT NOON AND TWO TABLETS AT BEDTIME 30 Active OneTouch Ultra Test - test blood sugar 12h Nov, 90 days Active Zenpep 78015-31870 UNIT Orally 4 times a day 1 capsule before meals and snacks 6h 30 Active ReliOn Pen [place] 32G X 4 MM as directed for injecting insulin Sep 90 days Active Amlodipine Besylate 5 MG Orally Once a day 1 tablet 24h Active Oxybutynin Chloride 5 MG Orally Twice a day 1 tablet 12h 90 Active Victoza 18 MG/3ML Subcutaneous Once a day Inject 1.8mg 24h 90 Active Prozac 20 MG Orally Once a day 1 capsule in the morning 24h May, 30 days Active Diclofenac Sodium & Capsaicin 1.5 & 0.025 % Active Gabapentin 400 MG Orally 3 times a day 2 tablets 8h 30 days Active Metoprolol Tartrate 50 mg TAKE 1 TABLET TWICE DAILY 90 Active NovoLog Flexpen 100 UNIT/ML Subcutaneous 3 times a day. 20-30 UNITS Active Dapagliflozin Propanediol 5 mg Orally Once a day 1 tablet 24h Jun, 30 day(s) Active Aspir-81 81 MG Orally Once a day 1 tablet 24h Active Pantoprazole Sodium 40 MG TAKE ONE TABLET BY MOUTH ONCE DAILY 90 Active Levemir FlexTouch 100 units/ml Subcutaneous 2 times a day 65 units 12h 90 Active Atorvastatin Calcium 40 MG Orally Once a day 1 tablet 24h 90 Active Adult Mask N/A as directed July, Active Qofpa-2-vork Ethyl Esters 1 GM Orally Twice a day 2 capsules 12h 08 Dec, 2017 Apr, 30 day(s) Active Nitrostat 0.4 MG Active Quinapril HCl 20 MG TAKE 1 TABLET EVERY DAY 24h 90 Active RectiCare 5 % Externally Four times a day 1 application to anus as needed for pain 6h May, Active PredniSONE 50 mg Orally Once a day 1 tablet 24h Jan, Jan, 5 days Active Metformin HCl 500 mg Orally Twice a day 2 tablet 12h 90 Active Effexor XR 150 MG Orally Once a day 1 capsule with food 24h 90 Active RESULTS No Results PROCEDURES No [...]
--- OUTSIDE RECORDS SUMMARY | 2018-03-31 10:39 | XMS REPORT ---
Author Author JYOTSNA EMERY Organization [facility] Address [address] [place] [address] Care Team Providers Care Greenskeeper Supervisor Name Role Phone JYOTSNA EMERY Unavailable PROBLEMS Type Condition ICD9-CM Code [id number] Code Onset Dates Condition Status SNOMED Code Problem Type 2 diabetes mellitus with hyperglycemia E11.65 Active 10574228 Problem Slow transit constipation K59.01 Active 27014780 Problem FDC current use of insulin Z79.4 Active 375670482 Problem Hypertriglyceridemia E78.1 Active 022061630 Problem Gastroparesis K31.84 Active 396389587 Problem Neuropathy G62.9 Active 743200444 Problem Herniation of intervertebral disc at C5-C6 level M50.222 Active 580625207 Problem Constipation, unspecified constipation type K59.00 Active 73953760 Problem Irritable bowel syndrome, unspecified type K58.9 Active 44907812 Problem Diabetic polyneuropathy associated with diabetes mellitus due to underlying condition E08.42 Active 21825265 Problem Rotator cuff syndrome of right shoulder M75.101 Active [id number] Problem BRITTANI (generalized anxiety disorder) F41.1 Active 83304119 Problem Panic disorder with agoraphobia F40.01 Active 80310319 Problem 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 Nov, Active 6124601 Problem Barretts esophagus without dysplasia K22.70 Active 512300593 Problem Type 2 diabetes mellitus with diabetic autonomic (poly)neuropathy E11.43 Active 418158059 Problem Obstructive sleep apnea syndrome G47.33 Active 21781517 Problem Bipolar disorder, current episode depressed, moderate F31.32 Active 091350870 Problem Essential hypertension I10 Active 85448739 Problem Gastro-esophageal reflux disease without esophagitis K21.9 Active 129240967 Problem Diabetes E11.9 Active 499225382 ALLERGIES No Information ENCOUNTERS Encounter Location Date Diagnosis [facility] [id number] [place] [address] 39012- 0018 Jan, [place] [address] [id number] [place] [address] 87411- 0572 Jan, [place] [id number] [place] [address] 85509- 2808 Jan, Tenosynovitis, de Quervain M65.4 [place] [address] 26113- 7235 Dec, Syncope, unspecified syncope type R55 ; Laceration of skin of scalp, sequela S01.01XS ; Hypertriglyceridemia E78.1 and Encounter for immunization Z23 [place] [address] 62424- 9911 Dec, Type 2 diabetes mellitus with hyperglycemia E11.65 [place] [id number] [place] [address] 56025- 4085 Oct, Type 2 diabetes mellitus with hyperglycemia E11.65 ; Neuropathy G62.9 ; History of fusion of cervical spine Z98.1 and Obstructive sleep apnea syndrome G47.33 [place] [id number] [place] [address] 99761- 3022 Oct, [place] [id number] [place] [address] 24466- 2972 Sep, Type 2 diabetes mellitus with hyperglycemia E11.65 [place] [address] [id number] [place] [address] 47982- 5004 July, [place] [id number] [place] [address] 06286- 1045 Jun, Type 2 diabetes mellitus with diabetic autonomic (poly) neuropathy E11.43 and Type 2 diabetes mellitus with hyperglycemia E11.65 [place] [id number] [place] [address] 93031- 8426 May, [place] [address] [id number] [place] [address] 72585- 7017 May, Bipolar disorder, current episode depressed, moderate F31.32 [facility] [id number] [place] [address] 70894 -6366 May, [facility] [address] 47109- 0517 May, Diabetic polyneuropathy associated with diabetes mellitus due to underlying condition E08.42 [place] [address] 75158- 4965 Apr, [place] [address] 72377- 0034 Feb, Ganglion cyst of dorsum of right wrist M67.431 [place] [address] 74483- 3548 Jan, Other cyst of bone, right forearm M85.631 [place] [address] 82802- 4580 Jan, [place] [address] 90185- 4895 Jan, Diabetes E11.9 and Right forearm pain M79.631 [place] [address] 68930- 9147 Dec, Encounter for immunization Z23 [place] [address] 98634- 4053 Nov, [place] [address] 44305- 4325 Nov, Type 2 diabetes mellitus with hyperglycemia E11.65 [place] [address] 88272- 7652 15 Nov, 2016 Severe pain of right shoulder M25.511 [place] [address] 89294- 1580 Oct, Diabetes E11.9 [place] [address] 44826- 9921 Oct, Diabetes E11.9 [facility] [id number] [place] [address] 19747- 9716 Oct, [facility] [id number] [place] [address] 86045- 3110 Oct, [facility] [id number] [place] [address] 26836- 5325 Oct, Rotator cuff syndrome of right shoulder M75.101 [facility] [address] [id number] [place] [address] 72531- 0581 Oct, Diabetes E11.9 [facility] [id number] [place] [address] 62000- 9030 Sep, Type 2 diabetes mellitus with hyperglycemia E11.65 ; Obstructive sleep apnea syndrome G47.33 and Constipation, unspecified constipation type K59.00 [facility] [address] [id number] [place] [address] 03698- 0563 Aug, [facility] [id number] [place] [address] 20643- 1755 Aug, [facility] [id number] [place] [address] 12496- 8024 Aug, Type 2 diabetes mellitus with diabetic autonomic (poly) neuropathy E11.43 [facility] [address] [id number] [place] [address] 06406- 8480 July, Type 2 diabetes mellitus with hyperglycemia E11.65 [facility] [id number] [place] [address] 37844- 1651 Jun, Slow transit constipation K59.01 [facility] [address] [id number] [place] [address] 80256- 0875 May, [facility] [id number] [place] [address] 25765- 0218 May, Diabetes E11.9 [facility] [id number] [place] [address] 21512- 3139 May, [facility] [id number] [place] [address] 02580 -8881 Apr, [place] [address] 09561- 6107 Apr, Gastroenteritis K52.9 [facility] [place] [address] 83918 -0423 Apr, Abdominal pain, unspecified location R10.9 ; Gastroenteritis K52.9 ; Type 2 diabetes mellitus with hyperglycemia E11.65 and emt intermediate current use of insulin Z79.4 [place] [address] 82255- 2367 Apr, [place] [address] 96480- 9229 Apr, [place] [address] 95196- 8958 Apr, Diabetes E11.9 ; Gastroparesis K31.84 ; Generalized abdominal pain R10.84 ; Essential hypertension I10 ; Bronchitis J40 and Other fatigue R53.83 [facility] [place] [address] 31634 -0051 Mar, [facility] [place] [address] [id number] [place] [address] 45755 -6939 Mar, [facility] [place] [address] 38566 -0103 Mar, Laceration of scalp without foreign body, initial encounter S01.01XA ; Laceration of face, initial encounter S01.81XA and Encounter for immunization Z23 [place] [address] 86959- 9712 Mar, Type 2 diabetes mellitus with diabetic autonomic (poly) neuropathy E11.43 [place] [address] 20253- 1112 Feb, [place] [address] [place] [id number] [place] [address]- 2019 Feb, Internal hemorrhoids K64.8 and Obstructive sleep apnea syndrome G47.33 [place] [address] 97857- 0379 Feb, SI (sacroiliac) joint dysfunction M53.[address] 36318- 7684 Jan, [place] [address] 33232- 5002 Dec, Gastroparesis K31.[address] 59721- 2613 Dec, [address] 97888- 0430 Dec, Right hip pain M25.551 ; Nose congested R09.81 and Encounter for immunization Z23 [address] 81397- 3423 Nov, Diabetes E11.9 ; Gastroparesis K31.84 ; Type 2 diabetes mellitus with diabetic autonomic (poly)neuropathy E11.43 and Obstructive sleep apnea syndrome G47.33 [place] [id number] [place] [address] 50825- 9379 Oct, [address] 50040- 5898 Aug, [address] 49332- 1979 July, Gastro-esophageal reflux disease without esophagitis K21.[address] 76721- 9285 July, [place] [address] 08344- 6804 July, Diabetes E11.9 [place] [address] 53265- 7482 July, Diabetes E11.9 ; Obstructive sleep apnea syndrome G47.33 and Neuropathy G62.9 [place] [address] 91614- 0977 July, Bipolar disorder, current episode depressed, moderate F31.32 ; BRITTANI (generalized anxiety disorder) F41.1 and Panic disorder with agoraphobia F40.01 [place] [address] 33591- 7491 Jun, [place] [address] 41978- 6787 Jun, [place] [address] 49931- 6823 Jun, [place] [address] 78674- 5745 Jun, [facility] [address] [id number] May, Encounter for dental examination and cleaning without abnormal findings Z01.20 [place] [address] 27102- 2426 Apr, [facility] [address] 80777- 9614 Apr, [place] [address] 48703- 9328 Apr, Bipolar disorder, current episode depressed, moderate F31.32 ; BRITTANI (generalized anxiety disorder) F41.1 and Panic disorder with agoraphobia F40.01 [facility] [address] 81867- 7374 Apr, Hyperlipidemia, unspecified E78.5 [facility] [address] [id number] Apr, Dental caries K02.9 [facility] [address] [id number] Feb, Dental caries K02.9 and Encounter for dental examination Z01.20 [place] [address] [address] [id number] [place] [address] 55185- 3144 Feb, [place] [address] [id number] [place] [address] 50612- 8901 15 Feb, 2015 Diabetes E11.9 ; Insulin long-term use Z79.4 ; Diabetic polyneuropathy associated with diabetes mellitus due to underlying condition E08.42 and Barretts esophagus with high grade dysplasia K22.711 [place] [address] [address] [id number] [place] [address] 85555- 0215 Feb, [place] [address] [id number] [place] [address] 52562- 1375 Jan, Pain in right hip M25.551 and Other chronic pain G89.29 [place] [id number] [place] [address] 51619- 9589 Jan, Impingement syndrome, shoulder, left M75.42 [place] [address] [address] [id number] [place] [address] 58374- 1505 Jan, Bipolar disorder, current episode depressed, moderate F31.32 ; Generalized anxiety disorder F41.1 and Agoraphobia with panic disorder F40.01 [place] [address] [address] [id number] [place] [address] 95248- 6725 Jan, [place] [address] [place] [address] [id number] [place] [address] 43674- 8056 Dec, [place] [address] [address] [id number] [place] [address] 82019- 9765 Dec, [place] [id number] [place] [address] 16802- 7186 Dec, Right hip pain M25.551 and Left shoulder pain M25.512 [place] [address] [id number] [place] [address] 06990- 8934 Dec, Bipolar 1 disorder, depressed, moderate F31.32 ; BRITTANI ( generalized anxiety disorder) F41.1 and Panic disorder with agoraphobia F40.01 [facility] [id number] [place] [address] 61254- 4244 Dec, [facility] [address] [id number] [place] [address] 66451- 3331 Dec, [facility] [address] [id number] [place] [address] 94731- 8040 Nov, [facility] [address] [id number] [place] [address] 80938- 4649 18 Nov, 2014 [facility] [address] [id number] [place] [address] 70099- 6129 Nov, [facility] [address] [id number] [place] [address] 47409- 3391 Nov, Diabetes 250.00 [facility] [address] [id number] [place] [address] 52654- 3109 Oct, [facility] [address] [id number] [place] [address] 55219- 8611 Oct, [facility] [address] [id number] [place] [address] 26473- 2377 Oct, [facility] [address] [id number] [place] [address] 88404- 2405 Oct, [facility] [address] [id number] [place] [address] 21881- 3457 Oct, [facility] [address] [id number] [place] [address] 41061- 8045 Oct, [facility] [address] [place] [id number] [place] [address] 60009- 2746 Oct, Diabetes 250.00 ; Insomnia 780.52 and Forgetfulness 780.99 [facility] [address] [id number] [place] [address] 33677- 9858 Oct, Depressive disorder, not elsewhere classified 311 [facility] [address] [id number] [place] [address]- 8555 Sep, [facility] [address] [id number] [place]- 2276 Sep, [facility] [address] [id number] [place] [address]- 7900 Sep, [facility] [address] [id number] [place] 3539 Sep, [facility] [address] [id number] [place] [address]- 1576 Sep, [facility] [address] [id number] [place] 1874 Sep, [facility] [address] [id number] [place] 5316 Sep, [facility] [address] [id number], [place] [address]- 3524 Aug, [facility] [address] [id number] [id number] Aug, Dental examination V72.2 [facility] [address] [id number], [place] [address]- 9783 Aug, [facility] [address] [id number], [place] [address]- 9123 Aug, [facility] [address] [id number], [place] [address]- 8108 July, [facility] [address] [id number]- 1370 July, [facility] [address] [id number], [place] [address]- 6381 July, [facility] [address] [id number] [place] [address]- 9932 July, [facility] [place] [facility] [address] [id number] [place] [address]- 7851 14 Jun, 2014 [facility] [place] [facility] [address] [id number] [place] [address]- 4365 13 Jun, 2014 [facility] [place] [facility] [address] [id number] [place] [address]- 7600 23 May, 2014 [facility] [place] [facility] [address] [id number] [place] [address]- 2062 23 May, 2014 [facility] [place] [facility] [address] [id number] [place] [address]- 8940 19 May, 2014 [facility] [place] [facility] [address] [id number] [place] [address]- 8291 19 May, 2014 [facility] [place] [facility] [address] [id number] [place] [address]- 5979 17 May, 2014 [facility] [place] [facility] [address] [id number] [place] [address]- 6464 17 May, 2014 [facility] [place] [facility] [address] [id number] [place] [address]- 1276 16 May, 2014 [facility] [place] [facility] [address] [id number] [place] [address]- 6931 May, [facility] [place] [facility] [address] [id number] [place] [address]- 7330 25 Apr, 2014 [facility] [place] [facility] [address] [id number] [place] [address]- 3461 Apr, [facility] [place] [facility] [address] [id number] [place] [address]- 1618 Apr, [facility] [place] [facility] [address] [id number] [place] [address]- 0822 Apr, [facility] [place] [facility] [address] [id number] [place] [address]- 8599 05 Apr, 2014 [facility] [place] [facility] [address] [id number] [place] [address]- 1932 Apr, [facility] [place] [facility] [address] [id number] [place] [address]- 9985 Mar, [facility] [place] [facility] [address] [id number] [place] [address]- 6469 Mar, [facility] [place] [facility] [address] [id number] [place] [address]- 2501 Mar, [facility] [place] [facility] [address] [id number] [place] [address]- 1755 Mar, [facility] [place] [facility] [address] [id number] [place] [address]- 3896 Mar, [facility] [place] [facility] [address] [id number] [place] [address]- 3343 Mar, [facility] [place] [facility] [address] [id number] [place] [address]- 4184 Mar, [facility] [place] [facility] [address] [id number] [place] [address]- 0489 Mar, [facility] [place] [facility] [address] [id number] [place] [address]- 0757 Mar, [facility] [place] [facility] [address] [id number] [place] [address]- 0516 Mar, [facility] [place] [facility] [address] [id number], [place] [address]- 7879 Mar, [facility] [place] [facility] [address] [id number], [place] [address]- 6618 Mar, [facility] [place] [facility] [address] [id number] [place] [address]- 5749 Mar, [facility] [place] [facility] [address] [id number] [place] [address]- 7414 Mar, [facility] [place] [facility] [address] [id number] [place] [address]- 3478 Feb, [facility] [place] [facility] [address] [id number] [place] [address]- 0925 30 Feb, 2014 [facility] [address] [id number] [place] 7896 Feb, [facility] [place] [facility] [address] [id number] [place] 9946 Feb, [facility] [address] [id number] [place] [address]- 0566 Feb, [facility] [place] [facility] [address] [id number] [place] [address]- 4894 Feb, [facility] [address] [id number] [place] 9118 16 Feb, 2014 [facility] [place] [facility] [address] [id number] [place] [address]- 5317 16 Feb, 2014 [facility] [place] [facility] [address] [id number] [place] [address]- 7795 16 Feb, 2014 [facility] [place] [facility] [address] [id number] [place] [address]- 5353 16 Feb, 2014 [facility] [place] [facility] [address] [id number] [place] [address]- 6075 Feb, [facility] [address] [id number] [place] [address]- 5057 Feb, [facility] [place] [facility] [address] [id number] [place] [address]- 0626 Feb, [facility] [place] [facility] [address] [id number] [place] [address]- 6718 Feb, [facility] [place] [facility] [address] [id number] [place] [address]- 4332 Jan, [facility] [place] [facility] [address] [id number] [place] [address]- 3762 Jan, [facility] [place] [facility] [address] [id number] [place] [address]- 3433 Jan, [facility] [place] [facility] [address] [id number] [place] [address]- 0461 Jan, [facility] [place] [facility] [address] [id number] [place] [address]- 9546 Dec, [facility] [place] [facility] [address] [id number] [place] [address]- 4574 Dec, [facility] [place] [facility] [address] [id number] [place] [address]- 2372 Dec, [facility] [place] [facility] [address] [id number] [place] [address]- 0592 Dec, [facility] [place] [facility] [address] [id number] [place] [address]- 5111 Dec, [facility] [place] [facility] [address] [id number] [place] [address]- 1119 Dec, [facility] [place] [facility] [address] [id number] [place] [address]- 9191 Dec, [facility] [place] [facility] [address] [id number] [place] [address]- 3291 Dec, [facility] [place] [facility] [address] [id number], [place] [address]- 5294 Nov, [facility] [place] [facility] [address] [id number], [place] [address]- 6516 Nov, [facility] [place] [facility] [address] [id number], [place] [address]- 4115 Nov, [facility] [place] [facility] [address] [id number] [place] [address]- 4749 Nov, [facility] [place] [facility] [address] [id number] [place] [address]- 6413 Nov, [facility] [place] [facility] [address] [facility] [id number], [place] [address]- 4982 Oct, [facility] [place] [facility] [address] [id number], [place] [address]- 9772 Oct, [facility] [place] [facility] [address] [id number] [place] [address]- 7214 Sep, [facility] [place] [facility] [address] [id number] [place] [address]- 2912 Sep, [facility] [place] [facility] [address] [id number] [place] [address]- 6307 Sep, [facility] [place] [facility] [address] [id number] [place] [address]- 5757 Sep, [facility] [place] [facility] [address] [id number] [place] [address]- 8618 Sep, [facility] [place] [facility] [address] [id number] [place] [address] Sep, [facility] [place] [facility] [address] [id number] [place] [address] Sep, [facility] [place] [facility] [address] [id number] [place] [address] Sep, [facility] [place] [facility] [address] [id number] [place] [address] Sep, [facility] [place] [facility] [address] [id number] [place] [address] Sep, [facility] [place] [facility] [address] [id number] [place] [address] Sep, [facility] [place] [facility] [address] [id number] [place] [address] Sep, [facility] [place] [facility] [address] [id number] [place] [address] Sep, [facility] [place] [facility] [address] [id number] [place] [address] Sep, [facility] [place] [facility] [address] [id number] [place] [address] July, [facility] [place] [facility] [address] [id number] [place] [address] July, [facility] [place] [facility] [address] [id number] [place] [address] July, [facility] [place] [facility] [address] [id number] [place] [address] July, [facility] [place] [facility] [address] [id number] [place] [address] July, [facility] [place] [facility] [address] [id number] [place] [address] July, [facility] [place] [facility] [address] [id number] [place] [address] July, [facility] [place] [facility] [address] [id number] [place] [address] July, [facility] [place] [facility] [address] [id number] [place] [address] Jun, [facility] [place] [facility] [address] [id number] [place] [address] Jun, [facility] [place] [facility] [address] [id number] [place] [address]10 Jun, [facility] [place] [facility] [address] [id number] [place] [address] Jun, [facility] [place] [facility] [address] [id number] [place] [address] Jun, [facility] [place] [facility] [address] [id number] [place] [address] Jun, [facility] [place] [facility] [address] [id number] [place] [address] Jun, [facility] [place] [facility] [address] [id number] [place] [address] Jun, [facility] [place] [facility] [address] [id number] [place] [address] 27 May, 2013 [facility] [place] [facility] [address] [id number] [place] [address] 27 May, 2013 [facility] [place] [facility] [address] [id number] [place] [address] 21 May, 2013 [facility] [place] [facility] [address] [id number] [place] [address] 21 May, 2013 [facility] [place] [facility] [address] [id number] [place] [address]- [address] 20 May, 2013 [facility] [place] [facility] [address] [id number] [place] [address] 20 May, 2013 [facility] [place] [facility] [address] [id number] [place] [address] 19 May, 2013 [facility] [place] [facility] [address] [id number] [place] [address] 19 May, 2013 [facility] [place] [facility] [address] [id number] [place] [address] 17 May, 2013 [facility] [place] [facility] [address] [id number] [place] [address] 17 May, 2013 [facility] [place] [facility] [address] [id number] [place] [address] 17 May, 2013 [facility] [place] [facility] [address] [id number] [place] [address] 17 May, 2013 [facility] [place] [facility] [address] [id number] [place] [address] 12 May, 2013 [facility] [place] [facility] [address] [id number] [place] [address] 12 May, 2013 [facility] [place] [facility] [address] [id number] [place] [address] 05 May, 2013 [facility] [place] [facility] [address] [id number] [place] [address] 05 May, 2013 [facility] [place] [facility] [address] [id number] [place] [address] Apr, [facility] [address] [id number] [place] [address] Apr, [facility] [place] [facility] [address] [id number] [place] [address] 12[address] Mar, [facility] [address] [id number] [place] [address] 37[address] Mar, [facility] [place] [facility] [address] [id number] [place] [address] 8970 Mar, [facility] [place] [facility] [address] [id number] [place] [address] Mar, [facility] [place] [facility] [address] [id number] [place] [address] 35[address] Mar, [facility] [address] [id number] [place] [address] Mar, [facility] [address] [id number] [place] [address] Feb, [facility] [place] [facility] [address] [id number] [place] [address] 6526 Feb, [facility] [place] [facility] [address] [facility] [id number] [place] [address] Feb, [facility] [place] [facility] [address] [id number] [place] [address]- 6428 Feb, [facility] [place] [facility] [address] [id number] [place] [address] 6[address] Feb, [facility] [place] [facility] [address] [id number] [place] [address] Feb, [facility] [place] [facility] [address] [id number] [place] [address] Jan, [facility] [place] [facility] [address] [id number] [place] [address]- [address]10 Jan, [facility] [place] [facility] [address] [id number] [place] [address] 6[address] Jan, [facility] [place] [facility] [address] [id number] [place] [address] 72[address] Jan, [facility] [place] [facility] [address] [id number] [place] [address]- 4716 Jan, [facility] [place] [facility] [address] [id number] [place] [address] 3610 Jan, [facility] [place] [facility] [address] [id number] [place] [address] 480[address] Jan, [facility] [place] [facility] [address] [id number] [place] [address] 365[address] Dec, [facility] [place] [facility] [address] [id number] [place] [address] 3870 Dec, [facility] [place] [facility] [address] [id number] [place] [address] 8461 Dec, [facility] [place] [facility] [address] [id number] [place] [address] 6141 Nov, [facility] [place] [facility] [address] [id number] [place] [address] 4837 Oct, [facility] [place] [facility] [address] [id number] [place] [address]- 22[address] Sep, [facility] [place] [facility] [address] [id number] [place] [address] 5714 Sep, [facility] [place] [facility] [address] [id number] [place] [address]201 Sep, [facility] [place] [facility] [address] [id number] [place] [address] 6[address] Sep, [facility] [place] [facility] [address] [id number] [place] [address]- 0746 Sep, [facility] [place] [facility] [address] [id number] [place] [address] Sep, [facility] [address] [id number] [place] [address] 8434 Aug, [facility] [address] [id number] [place] [address] Aug, [facility] [address] [id number] [place] [address] 9977 July, [facility] [address] [id number] [place] [address]233 July, [facility] [address] [id number] [place] [address] 4268 July, [facility] [address] [id number] [place] [address]687 July, [facility] [address] [id number] [place] [address] 9819 Jun, [facility] [address] [id number] [place] [address] 1337 May, [facility] [address] [id number] [place] [address]- 8581 May, [facility] [address] [id number] [place] [address] 9822 May, [facility] [address] [id number] [place] [address] 4420 Mar, [facility] [place] [facility] [address] [id number] [place] [address] 5365 Mar, [facility] [place] [facility] [address] [id number] [place] [address] 9828 Mar, [facility] [place] [facility] [address] [id number] [place] [address]- 5513 Feb, [facility] [place] [facility] [address] [id number] [place] [address]- 3180 Feb, [facility] [place] [facility] [address] [id number] [place] [address]- 0141 10 Feb, 2012 [facility] [place] [facility] [address] [id number] [place] [address]- 6286 Feb, [facility] [place] [facility] [address] [id number] [place] [address]- 3206 Feb, [facility] [place] [facility] [address] [id number] [place] [address]- 7526 Feb, [facility] [place] [facility] [address] [id number] [place] [address]- 4962 Feb, [facility] [place] [facility] [address] [id number] [place] [address]- 0673 Feb, [facility] [place] [facility] [address] [id number] [place] [address]- 0428 Feb, [facility] [place] [facility] [address] [id number] [place] [address] 4246 Feb, [facility] [address] [id number] [place] [address] 7204 Jan, [facility] [place] [facility] [address] [id number] [place] [address]- 395[address] Jan, [facility] [place] [facility] [address] [id number] [place] [address]- 5690 Jan, [facility] [place] [facility] [address] [id number] [place] [address]- 5477 Jan, [facility] [place] [facility] [address] [id number] [place] [address]- 2542 Jan, [facility] [place] [facility] [address] [id number] [place] [address]- 1119 Jan, [facility] [place] [facility] [address] [id number] [place] [address]- 0818 Jan, [facility] [place] [facility] [address] [id number] [place] [address]- 3942 Jan, [facility] [place] [facility] [address] [id number] [place] [address]- 5603 Jan, [facility] [place] [facility] [address] [id number] [place] [address]- 1041 Jan, [facility] [place] [facility] [address] [id number] [place] [address]- 7298 Dec, [facility] [place] [facility] [address] [id number] [place] [address]- 8107 Dec, [facility] [place] [facility] [address] [id number] [place] [address]- 4093 Nov, [facility] [place] [facility] [address] [id number] [place] [address]- 0594 24 Nov, 2011 [facility] [place] [facility] [address] [id number] [place] [address]- 9861 Nov, [facility] [place] [facility] [address] [id number] [place] [address]- 3768 Oct, [facility] [place] [facility] [address] [id number] [place] [address]- 0038 Oct, [facility] [place] [facility] [address] [id number] [place] [address]- 1829 Oct, [facility] [place] [facility] [address] [id number] [place] [address]- 0096 Oct, [facility] [place] [facility] [address] [id number], [place] [address]- [address]67 Aug, [facility] [place] [facility] [address] [id number] [place] [address]- 6890 15 Aug, 2011 [facility] [place] [facility] [address] [id number] [place] [address]- 0314 14 Aug, 2011 [facility] [place] [facility] [address] [id number] [place] [address]- 1034 Aug, [facility] [place] [facility] [address] [id number] [place] [address]- 1227 08 Jun, 2011 [facility] [address] [id number] [place] [address]- 8232 07 May, 2011 [facility] [place] [facility] [address] [id number] [place] [address]- 0196 06 May, 2011 [facility] [place] [facility] [address] [id number] [place] [address]- 5636 20 Apr, 2011 [facility] [place] [facility] [address] [id number] [place] [address]- 6509 20 Apr, 2011 [facility] [place] [facility] [address] [id number] [place] [address]- 5497 15 Apr, 2011 [facility] [place] [facility] [address] [id number] [place] [address]- 8836 14 Apr, 2011 [facility] [address] [id number] [place] [address]- 7589 24 Mar, 2011 [facility] [address] [id number] [place] [address]- 5714 Mar, [facility] [place] [facility] [address] [id number] [place] [address]- 3191 Mar, [facility] [address] [id number] [place] [address]- 2845 18 Mar, 2011 [facility] [place] [facility] [address] [id number] [place] [address]- 6436 Mar, [facility] [place] [facility] [address] [id number] [place] [address]- 6296 Mar, [facility] [place] [facility] [address] [id number] [place] [address]- 8890 Feb, [facility] [place] [facility] [address] [id number] [place] [address] 2546 Jan, [facility] [place] [facility] [address] [id number] [place] [address]- 8866 Jan, [facility] [address] [facility] [id number], [place] [address] Jan, [facility] [address] [facility] [id number], [place] [address]- 5906 Jan, [facility] [address] [facility] [id number], [place] [address]- 4429 Jan, [facility] [address] [facility] [id number], [place] [address]- 1799 Dec, [facility] [address] [facility] [id number], [place] [address]- 3725 May, [facility] [address] [facility] [id number], [place] [address] 7417 Apr, [facility] [id number], [place] [address] 5839 Mar, [facility] [id number], [place] [address]- 1037 Feb, [facility] [id number], [place] [address]- 1007 Feb, [facility] [address] [id number], [place] [address]- 9067 Feb, [facility] [address] [id number], [place] [address]- [address]75 Feb, [facility] [address] [id number], [place] [address]- [address] Dec, [facility] [address] [id number], [place] [address]- [address] Dec, IMMUNIZATIONS No Known Immunizations SOCIAL HISTORY Never Assessed REASON FOR VISIT medication refill request PLAN OF CARE VITAL SIGNS MEDICATIONS Unknown [...] History torn rotater cuff Surgical History Hystorectomy 1996 Surgical History bilateral knee scopes Surgical History cholecystectomy Surgical History appendectomy Surgical History RT shoulder coller bone shaved Surgical History Heart attack and stents placed 2010 Surgical History Teeth removed Surgical History right shoulder and spur removal 2016 Surgical History fused C-spine 4-6 09/2017 Hospitalization History surgeries
[2018-03-31] MEDS ORDERED: BUP/EPI 0.5% 1:200,000 (SENSORCAINE) 30 ML VIAL ONE (10:43)
[2018-03-31] MEDS ORDERED: ceFAZolin 2 GM IV Premixed 50 ML ONE (10:55)
--- NOTE | 2018-03-31 10:57 | Progress Note-Pre Operative ---
Pre-Operative Progress Note H&P Reviewed The H&P was reviewed, patient examined and no changes noted. Date Seen by Provider: Mar 30, 2018 Time Seen by Provider: 11:00 Date H&P Reviewed: Mar 31, 2018 Time H&P Reviewed: 10:57 Pre-Operative Diagnosis: Infected sebaceous cyst-left neck IVELISSE GAVIN MD Mar 31, 2018 10:57
[2018-03-31] MEDS: LACTATED RINGERS 1,000 ML IV PRN ×2 (11:00→12:17)
[2018-03-31] MEDS ORDERED: ONDANSETRON 4 MG/2 ML (SDV) Z0FRAN ONE (11:01)
[2018-03-31] MEDS ORDERED: LIDOCAINE PF 2% 5 ML (XYLOCAINE) VIAL ONE (11:01)
[2018-03-31] MEDS ORDERED: SEVOFLURANE (ULTANE) 15 ML INHAL SOLN ONE ×2 (11:01→11:39)
[2018-03-31] MEDS ORDERED: proPOfol 200 MG/20 ML (DIPRIVAN) VIAL IV ONE (11:01)
[2018-03-31] MEDS ORDERED: fentaNYL INJECTION 100 MCG/2 ML AMP ONE (11:03)
[2018-03-31] MEDS ORDERED: MIDAZOLAM 2 MG/2 ML (VERSED) VIAL ONE (11:06)
--- OUTSIDE RECORDS SUMMARY | 2018-03-31 11:06 | XMS REPORT | Continuity of Care Document ---
Author Author [facility] Address Unknown Phone Unavailable Allergies Active Description Code Type Severity Reaction Onset Reported/Identified Relationship to Patient Clinical Status Yes aspirin Drug Allergy N/A N/A 12/19/2009 Yes codeine Drug Allergy N/A N/A 12/19/2009 Yes NSAIDS Drug Allergy N/A N/A 12/19/2009 Yes aspirin Drug Allergy 12/19/2009 Yes codeine Drug Allergy 12/19/2009 Yes NSAIDS Drug Allergy 12/19/2009 Yes NSAIDS (Non-Steroidal Anti-Inflamma [id number] Drug Allergy Unknown N/A 04/2010 Yes codeine [id number] Drug Allergy Unknown N/A 08/01/2013 Medications There [...] COSME K 709.9 Skin Lesions 12/19/2009 YULY TOUCH UP EDGER, JYOTSNA S 250.02 Diabetes Ii Uncontrolled 12/19/2009 YULY TOUCH UP EDGER, JYOTSNA S 709.9 Skin Lesions 12/19/2009 YULY TOUCH UP EDGER, JYOTSNA S 250.02 Diabetes Ii Uncontrolled 12/19/2009 YULY TOUCH UP EDGER, JYOTSNA S 709.9 Skin Lesions 12/19/2009 YULY TOUCH UP EDGER, JYOTSNA S 250.02 Diabetes Ii Uncontrolled 12/19/2009 YULY TOUCH UP EDGER, JYOTSNA S 709.9 Skin Lesions 12/19/2009 YULY TOUCH UP EDGER, JYOTSNA S 250.02 Diabetes Ii Uncontrolled 12/19/2009 YULY TOUCH UP EDGER, JYOTSNA S 709.9 Skin Lesions 12/19/2009 RADHA TOUCH UP EDGER, DOMINIQUE R 250.02 Diabetes Ii Uncontrolled 12/19/2009 RADHA TOUCH UP EDGER, DOMINIQUE R 709.9 Skin Lesions 12/19/2009 YULY TOUCH UP EDGER, JYOTSNA S 250.02 Diabetes Ii Uncontrolled 12/19/2009 YULY TOUCH UP EDGER, JYOTSNA S 709.9 Skin Lesions 12/19/2009 RICO DO, COSME K 250.02 Diabetes Ii Uncontrolled 12/19/2009 RICO DO, COSME K 709.9 Skin Lesions 12/19/2009 YULY TOUCH UP EDGER, JYOTSNA S 250.02 Diabetes Ii Uncontrolled 12/19/2009 YULY TOUCH UP EDGER, JYOTSNA S 709.9 Skin Lesions 12/19/2009 RISHABH TOUCH UP EDGER, YARELIS A 250.02 Diabetes Ii Uncontrolled 12/19/2009 RISHABH TOUCH UP EDGER, YARELIS A 709.9 Skin Lesions 12/19/2009 YULY TOUCH UP EDGER, JYOTSNA S 250.02 Diabetes Ii Uncontrolled 12/19/2009 YULY TOUCH UP EDGER, JYOTSNA S 709.9 Skin Lesions 12/19/2009 RICO DO, COSME K 250.02 Diabetes Ii Uncontrolled 12/19/2009 RICO DO, COSME K 709.9 Skin Lesions 12/19/2009 RISHABH TOUCH UP EDGER, YARELIS A 250.02 Diabetes Ii Uncontrolled 12/19/2009 RISHABH TOUCH UP EDGER, YARELIS A 709.9 Skin Lesions 12/19/2009 RICO [...] Cellulitis And Abscess Of Buttock 12/22/2009 YULY TOUCH UP EDGER, JYOTSNA S 682.5 Cellulitis And Abscess Of Buttock 12/22/2009 YUYL TOUCH UP EDGER, JYOTSNA S 682.5 Cellulitis And Abscess Of Buttock 12/22/2009 YULY TOUCH UP EDGER, JYOTSNA S 682.5 Cellulitis And Abscess Of Buttock 12/22/2009 YULY TOUCH UP EDGER, JYOTSNA S 682.5 Cellulitis And Abscess Of Buttock 12/22/2009 DOMINIQUE GARCIA APRN 682.5 Cellulitis And Abscess Of Buttock 12/22/2009 YULY TOUCH UP EDGER, JYOTSNA S 682.5 Cellulitis And Abscess Of Buttock 12/22/2009 RICO DOENRIQUEA K 682.5 Cellulitis And Abscess Of Buttock 12/22/2009 YULY TOUCH UP EDGER, JYOTSNA S 682.5 Cellulitis And Abscess Of Buttock 12/22/2009 RISHABH FELDMANN, YARELIS A 682.5 Cellulitis And Abscess Of Buttock 12/22/2009 YULY TOUCH UP EDGER, JYOTSNA S 682.5 Cellulitis And Abscess Of Buttock 12/22/2009 RICO DOENRIQUEA K 682.5 Cellulitis And Abscess Of Buttock 12/22/2009 RISHABH TOUCH UP EDGER YARELIS A 682.5 Cellulitis And Abscess Of [...] APRNNDA S 300.4 Dysthymic Disorder 03/05/2010 YULY TOUCH UP EDGER, JYOTSNA S 401.1 BENIGN ESSENTIAL HYPERTENSION 03/05/2010 YULY FELDMANN, JYOTSNA S 625.6 Stress Incontinence Female 03/05/2010 YULY TOUCH UP EDGER, JYOTSNA S 300.4 Dysthymic Disorder 03/05/2010 YULY TOUCH UP EDGER, JYOTSNA S 401.1 BENIGN ESSENTIAL HYPERTENSION 03/05/2010 YULY FELDMANN, JYOTSNA S 625.6 Stress Incontinence Female 03/05/2010 YULY TOUCH UP EDGER, JYOTSNA S 300.4 Dysthymic Disorder 03/05/2010 YULY [...] S 401.1 BENIGN ESSENTIAL HYPERTENSION 03/05/2010 YULY TOUCH UP EDGER, JYOTSNA S 625.6 Stress Incontinence Female 03/05/2010 YULY AMOR, JYOTSNA S 300.4 Dysthymic Disorder 03/05/2010 YULY TOUCH UP EDGER, JYOTSNA S 401.1 BENIGN ESSENTIAL HYPERTENSION 03/05/2010 YULY FELDMANN, JYOTSNA S 625.6 Stress Incontinence Female 03/05/2010 YULY FELDMANN, JYOTSNA S 300.4 Dysthymic Disorder 03/05/2010 YULY TOUCH UP EDGER, JYOTSNA S 401.1 BENIGN ESSENTIAL HYPERTENSION 03/05/2010 YULY TOUCH UP EDGER, JYOTSNA S 625.6 Stress Incontinence Female 03/05/2010 YULY FELDMANN, JYOTSNA S 300.4 Dysthymic Disorder 03/05/2010 YULY TOUCH UP EDGER, JYOTSNA S 401.1 BENIGN ESSENTIAL HYPERTENSION 03/05/2010 [...] YARELIS A 300.4 Dysthymic Disorder 03/05/2010 RISHABH TOUCH UP EDGER, YARELIS A 401.1 BENIGN ESSENTIAL HYPERTENSION 03/05/2010 RISHABH TOUCH UP EDGER, YARELIS A 625.6 Stress Incontinence Female 03/05/2010 YULY FELDMANN, JYOTSNA S 300.4 Dysthymic Disorder 03/05/2010 YULY FELDMANN, JYOTSNA S 401.1 BENIGN ESSENTIAL HYPERTENSION 03/05/2010 YULYRICARDO FELDMANN, JYOTSNA S 625.6 Stress Incontinence Female 03/05/2010 RICO DO, COSME K 300.4 Dysthymic Disorder 03/05/2010 RICO DO, COSME K 401.1 BENIGN ESSENTIAL HYPERTENSION 03/05/2010 RICO DO, COSME K 625.6 Stress Incontinence Female 03/05/2010 RISHABH TOUCH UP EDGER, YARELIS A 300.4 Dysthymic Disorder 03/05/2010 RISHABH TOUCH UP EDGER, YARELIS A 401.1 BENIGN ESSENTIAL HYPERTENSION 03/05/2010 RISHABH TOUCH UP EDGER, YARELIS A 625.6 Stress Incontinence Female 03/05/2010 [...] 401.1 BENIGN ESSENTIAL HYPERTENSION 03/05/2010 TAN DDS, OJVANA 625.6 Stress Incontinence Female 03/05/2010 TAN DDS, [...] APRN 625.6 Stress Incontinence Female 03/23/2010 YULY TOUCH UP EDGER, JYOTSNA S 729.5 Pain In Limb 03/23/2010 YULY TOUCH UP EDGER, JYOTSNA S 729.5 Pain In Limb 03/23/2010 YULY TOUCH UP EDGER, JYOTSNA S 729.5 Pain In Limb 03/23/2010 729.5 Pain In Limb 03/23/2010 729.5 Pain In Limb 03/23/2010 VERONIKA FELTONSJEREMY J 729.5 Pain In Limb 03/23/2010 VERONIKA FELTONSJEREMY 729.5 Pain In Limb 03/23/2010 RICO DO, COSME K 729.5 Pain In Limb 03/23/2010 YULY TOUCH UP EDGER, JYOTSNA S 729.5 Pain In Limb 03/23/2010 YULY TOUCH UP EDGER, JYOTSNA S 729.5 Pain In Limb 03/23/2010 YULY TOUCH UP EDGER, JYOTSNA S 729.5 Pain In Limb 03/23/2010 YULY TOUCH UP EDGER, JYOTSNA S 729.5 Pain In Limb 03/23/2010 DOMINIQUE GARCIA APRN R 729.5 Pain In Limb 03/23/2010 YULY TOUCH UP EDGER, JYOTSNA S 729.5 Pain In Limb 03/23/2010 RICO DO, COSME K 729.5 Pain In Limb 03/23/2010 YULY TOUCH UP EDGER, JYOTSNA S 729.5 Pain In Limb 03/23/2010 RISHABH TOUCH UP EDGER, YARELIS A 729.5 Pain In Limb 03/23/2010 YULY TOUCH UP EDGER, JYOTSNA S 729.5 Pain In Limb 03/23/2010 [...] APRNA S 729.5 Pain In Limb 03/23/2010 RDAHIKA GARCIA APRN 729.5 Pain In Limb 03/23/2010 [...] DIABETES MELLITUS TYPE 2 04/27/2010 RICO DO OCSME K 307.81 Tension Headache 04/27/2010 YULY AMOR JYOTSNA S 250.00 DIABETES MELLITUS TYPE 2 04/27/2010 YULY AMOR JYOTSNA S 307.81 Tension Headache 04/27/2010 YULY TOUCH UP EDGER, JYOTSNA S 250.00 DIABETES MELLITUS TYPE 2 04/27/2010 YULY TOUCH UP EDGER, JYOTSNA S 307.81 Tension Headache 04/27/2010 YULY TOUCH UP EDGER, JYOTSNA S 250.00 DIABETES MELLITUS TYPE 2 04/27/2010 YULY TOUCH UP EDGER, JYOTSNA S 307.81 Tension Headache 04/27/2010 YULY TOUCH UP EDGER, JYOTSNA S 250.00 DIABETES MELLITUS TYPE 2 04/27/2010 YULY TOUCH UP EDGER, JYOTSNA S 307.81 Tension Headache 04/27/2010 RADHA TOUCH UP EDGER, DOMINIQUE R 250.00 DIABETES MELLITUS TYPE 2 04/27/2010 GARCIA TOUCH UP EDGER, DOMINIQUE R 307.81 Tension Headache 04/27/2010 YULY TOUCH UP EDGER, JYOTSNA S 250.00 DIABETES MELLITUS TYPE 2 04/27/2010 YULY TOUCH UP EDGER, JYOTSNA S 307.81 Tension Headache 04/27/2010 RICO DO, COSME K 250.00 DIABETES MELLITUS TYPE 2 04/27/2010 RICO DO, COSME K 307.81 Tension Headache 04/27/2010 YULY TOUCH UP EDGER, JYOTSNA S 250.00 DIABETES MELLITUS TYPE 2 04/27/2010 YULY TOUCH UP EDGER, JYOTSNA S 307.81 Tension Headache 04/27/2010 RISHABH TOUCH UP EDGER, YARELIS A 250.00 DIABETES MELLITUS TYPE 2 04/27/2010 RISHABH TOUCH UP EDGER, YARELIS A 307.81 Tension Headache 04/27/2010 YULY TOUCH UP EDGER, JYOTSNA S 250.00 DIABETES MELLITUS TYPE 2 04/27/2010 YULY TOUCH UP EDGER, JYOTSNA S 307.81 Tension Headache 04/27/2010 RICO DO, COSME K 250.00 DIABETES MELLITUS TYPE 2 04/27/2010 RICO DO, COSME K 307.81 Tension Headache 04/27/2010 RISHABH TOUCH UP EDGER, YARELIS A 250.00 DIABETES MELLITUS TYPE 2 04/27/2010 RISHABH TOUCH UP EDGER, YARELIS A 307.81 Tension Headache 04/27/2010 RICO DO, COSME K 250.00 DIABETES MELLITUS TYPE 2 04/27/2010 RIOC DO, COSME K 307.81 Tension Headache 04/27/2010 [...] JYOTSNA S 307.81 Tension Headache 04/27/2010 GARCIA TOUCH UP EDGER, RADHIKA D 250.00 DIABETES MELLITUS TYPE 2 04/27/2010 GARCIA TOUCH UP EDGER, RADHIKA D 307.81 Tension Headache 04/27/2010 JUDY DDS, CLARIBEL D 250.00 DIABETES MELLITUS TYPE 2 04/27/2010 JUDY DDS, CLARIBEL D 307.81 Tension Headache 04/27/2010 JOSE TOUCH UP EDGERREJION D 250.00 DIABETES MELLITUS TYPE 2 04/27/2010 [...] K 599.0 Urinary Tract Infection 05/19/2010 YULY TOUCH UP EDGER, JYOTSNA S 599.0 Urinary Tract Infection 05/19/2010 YULY FELDMANN, JYOTSNA S 599.0 Urinary Tract Infection 05/19/2010 YULY TOUCH UP EDGER, JYOTSNA S 599.0 Urinary Tract Infection 05/19/2010 YULY TOUCH UP EDGER, JYOTSNA S 599.0 Urinary Tract Infection 05/19/2010 DOMINIQUE GARCIA APRN 599.0 Urinary Tract Infection 05/19/2010 YULY AMOR, JYOTSNA S 599.0 Urinary Tract Infection 05/19/2010 RICO DO, COSME K 599.0 Urinary Tract Infection 05/19/2010 YULY AMOR, JYOTSNA S 599.0 Urinary Tract Infection 05/19/2010 RISHABH TOUCH UP EDGER, YARELIS A 599.0 Urinary Tract Infection 05/19/2010 YULY AMOR, JYOTSNA S 599.0 Urinary Tract Infection 05/19/2010 RICO DO, COSME K 599.0 Urinary Tract Infection 05/19/2010 RISHABH TOUCH UP EDGER, YARELIS A 599.0 Urinary Tract Infection 05/19/2010 [...] 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 08/20/2010 YULY TOUCH UP EDGER, JYOTSNA S 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 08/20/2010 YULY TOUCH UP EDGER, JYOTSNA S 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 08/20/2010 DOMINIQUE GARCIA APRN 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 08/20/2010 YULY TOUCH UP EDGER, JYOTSNA S 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 08/20/2010 RICO DO COSME K 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 08/20/2010 YULY TOUCH UP EDGER, JYOTSNA S 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 08/20/2010 RISHABH TOUCH UP EDGER, YARELIS A 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 08/20/2010 YULY TOUCH UP EDGER, JYOTSNA S 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 08/20/2010 RICO DO COSME K 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 08/20/2010 RISHABH TOUCH UP EDGER, YARELIS A 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 [...] Of Uncertain Behavior Of Skin 11/17/2010 YULY TOUCH UP EDGER, JYOTSNA S 354.0 Carpal Tunnel Syndrome 11/17/2010 YULY TOUCH UP EDGER, JYOTSNA 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 11/17/2010 YULY TOUCH UP EDGER, JYOTSNA S 354.0 Carpal Tunnel Syndrome 11/17/2010 YULY FELDMANN, JYOTSNA 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 11/17/2010 YULY TOUCH UP EDGER, JYOTSNA S 354.0 Carpal Tunnel Syndrome 11/17/2010 [...] COSME K 354.0 Carpal Tunnel Syndrome 11/17/2010 UYLY TOUCH UP EDGER, JYOTSNA 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 11/17/2010 YULY TOUCH UP EDGER, JYOTSNA S 354.0 Carpal Tunnel Syndrome 11/17/2010 YULY TOUCH UP EDGER, JYOTSNA 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 11/17/2010 YULY TOUCH UP EDGER, JYOTSNA S 354.0 Carpal Tunnel Syndrome 11/17/2010 RICO DO, COSME K 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 11/17/2010 RICO DO, COSME K 354.0 Carpal Tunnel Syndrome 11/17/2010 YULY TOUCH UP EDGER, JYOTSNA 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 11/17/2010 YULY TOUCH UP EDGER, JYOTSNA S 354.0 Carpal Tunnel Syndrome 11/17/2010 RISHABH TOUCH UP EDGER, YARELIS A 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 11/17/2010 RISHABH TOUCH UP EDGER, YARELIS A 354.0 Carpal Tunnel Syndrome 11/17/2010 YULY TOUCH UP EDGER, JYOTSNA 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 11/17/2010 YULY TOUCH UP EDGER, JYOTSNA S 354.0 Carpal Tunnel Syndrome 11/17/2010 RICO DO, COSME K 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 11/17/2010 RICO DO, COSME K 354.0 Carpal Tunnel Syndrome 11/17/2010 RISHABH TOUCH UP EDGER, YARELIS A 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 11/17/2010 RISHABH TOUCH UP EDGER, YARELIS A 354.0 Carpal Tunnel Syndrome 11/17/2010 [...] JOVANA 354.0 Carpal Tunnel Syndrome 11/17/2010 YULY TOUCH UP EDGER, JYOTSNA 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 11/17/2010 YULY TOUCH UP EDGER, JYOTSNA S 354.0 Carpal Tunnel Syndrome 11/17/2010 [...] APRN 354.0 Carpal Tunnel Syndrome 12/15/2010 YULY TOUCH UP EDGER, JYOTSNA S 300.00 ANXIETY STATE UNSPECIFIED 12/15/2010 YULY TOUCH UP EDGER JYOTSNA S 780.57 SLEEP APNEA 12/15/2010 YULY TOUCH UP EDGER, JYOTSNA S 780.79 fatigue 12/15/2010 YULY TOUCH UP EDGER, JYOSTNA S V04.81 Flu Dx (3 Yrs And Above, Im) 12/15/2010 YULY TOUCH UP EDGER, JYOTSNA S 300.00 ANXIETY STATE UNSPECIFIED 12/15/2010 YULY TOUCH UP EDGER, JYOTSNA S 780.57 SLEEP APNEA 12/15/2010 YULY TOUCH UP EDGER, JYOTSNA S 780.79 fatigue 12/15/2010 YULY TOUCH UP EDGER, JYOTSNA S V04.81 Flu Dx (3 Yrs And Above, Im) 12/15/2010 YULY TOUCH UP EDGER, JYOTSNA S 300.00 ANXIETY STATE UNSPECIFIED 12/15/2010 YULY TOUCH UP EDGER, JYOTSNA S 780.57 SLEEP APNEA 12/15/2010 YULY TOUCH UP EDGER, JYOTSNA S 780.79 fatigue 12/15/2010 YULY TOUCH UP EDGER, JYOTSNA S V04.81 Flu Dx (3 Yrs [...] (3 Yrs And Above, Im) 12/15/2010 YULY TOUCH UP EDGER, JYOTSNA S 300.00 ANXIETY STATE UNSPECIFIED 12/15/2010 YULY TOUCH UP EDGER, JYOTSNA S 780.57 SLEEP APNEA 12/15/2010 YULY TOUCH UP EDGER, JYOTSNA S 780.79 fatigue 12/15/2010 YULY TOUCH UP EDGER, JYOTSNA S V04.81 Flu Dx (3 Yrs And Above, Im) 12/15/2010 YULY TOUCH UP EDGER, JYOTSNA S 300.00 ANXIETY STATE UNSPECIFIED 12/15/2010 YULY TOUCH UP EDGER, JYOTSNA S 780.57 SLEEP APNEA 12/15/2010 YULY TOUCH UP EDGER, JYOTSNA S 780.79 fatigue 12/15/2010 YULY TOUCH UP EDGER, JYOTSNA S V04.81 Flu Dx (3 Yrs And Above, Im) 12/15/2010 YULY TOUCH UP EDGER, JYOTSNA S 300.00 ANXIETY STATE UNSPECIFIED 12/15/2010 YULY TOUCH UP EDGER, JYOTSNA S 780.57 SLEEP APNEA 12/15/2010 YULY TOUCH UP EDGER, JYOTSNA S 780.79 fatigue 12/15/2010 YULY TOUCH UP EDGER, JYOTSNA S V04.81 Flu Dx (3 Yrs And Above, Im) 12/15/2010 YULY TOUCH UP EDGER, JYOTSNA S 300.00 ANXIETY STATE UNSPECIFIED 12/15/2010 YULY TOUCH UP EDGER, JYOTSNA S 780.57 SLEEP APNEA 12/15/2010 YULY TOUCH UP EDGER, JYOTSNA S 780.79 fatigue 12/15/2010 YULY TOUCH UP EDGER, JYOTSNA S V04.81 Flu Dx (3 Yrs And Above, Im) 12/15/2010 GARCIA TOUCH UP EDGER, DOMINIQUE R 300.00 ANXIETY STATE UNSPECIFIED 12/15/2010 GARCIA TOUCH UP EDGER, DOMINIQUE R 780.57 SLEEP APNEA 12/15/2010 GARCIA TOUCH UP EDGER, DOMINIQUE R 780.79 fatigue 12/15/2010 GARCIA TOUCH UP EDGER, DOMINIQUE R V04.81 Flu Dx (3 Yrs And Above, Im) 12/15/2010 YULY TOUCH UP EDGER, JYOTSNA S 300.00 ANXIETY STATE UNSPECIFIED 12/15/2010 YULY TOUCH UP EDGER, JYOTSNA S 780.57 SLEEP APNEA 12/15/2010 YULY TOUCH UP EDGER, JYOTSNA S 780.79 fatigue 12/15/2010 YULY TOUCH UP EDGER, JYOTSNA S V04.81 Flu Dx (3 Yrs And Above, Im) 12/15/2010 RICO DO, COSME K 300.00 ANXIETY STATE UNSPECIFIED 12/15/2010 IRCO DO, COSME K 780.57 SLEEP APNEA 12/15/2010 RICO DO, COSME K 780.79 fatigue 12/15/2010 RICO DO, COSME K V04.81 Flu Dx (3 Yrs And Above, Im) 12/15/2010 YULY TOUCH UP EDGER, JYOTSNA S 300.00 ANXIETY STATE UNSPECIFIED 12/15/2010 YULY TOUCH UP EDGER, JYOTSNA S 780.57 SLEEP APNEA 12/15/2010 YULY TOUCH UP EDGER, JYOTSNA S 780.79 FATIGUE 12/15/2010 YULY TOUCH UP EDGER, JYOTSNA S V04.81 Flu Dx (3 Yrs And Above, Im) 12/15/2010 RISHABH TOUCH UP EDGER, YARELIS A 300.00 ANXIETY STATE UNSPECIFIED 12/15/2010 RISHABH TOUCH UP EDGER, YARELIS A 780.57 SLEEP APNEA 12/15/2010 RISHABH TOUCH UP EDGER, YARELIS A 780.79 FATIGUE 12/15/2010 RISHABH TOUCH UP EDGER, YARELIS A V04.81 Flu Dx (3 Yrs And Above, Im) 12/15/2010 YULY TOUCH UP EDGER, JYOTSNA S 300.00 ANXIETY STATE UNSPECIFIED 12/15/2010 YULY TOUCH UP EDGER, JYOTSNA S 780.57 SLEEP APNEA 12/15/2010 YULY TOUCH UP EDGER, JYOTSNA S 780.79 FATIGUE 12/15/2010 YULY TOUCH UP EDGER, JYOTSNA S V04.81 Flu Dx (3 Yrs And Above, Im) 12/15/2010 RICO DO, COSME K 300.00 ANXIETY STATE UNSPECIFIED 12/15/2010 RICO DO, COSME K 780.57 SLEEP APNEA 12/15/2010 RICO DO, COSME K 780.79 FATIGUE 12/15/2010 RICO DO, COSME K V04.81 Flu Dx (3 Yrs And Above, Im) 12/15/2010 RISHABH TOUCH UP EDGER, YARELIS A 300.00 ANXIETY STATE UNSPECIFIED 12/15/2010 RISHABH TOUCH UP EDGER, YARELIS A 780.57 SLEEP APNEA 12/15/2010 RISHABH TOUCH UP EDGER, YARELIS A 780.79 FATIGUE 12/15/2010 RISHABH TOUCH UP EDGER, YARELIS A V04.81 Flu Dx (3 Yrs [...] GARCIA APRN D 780.57 SLEEP APNEA 12/15/2010 RADHIAK GARCIA APRN D 780.79 FATIGUE 12/15/2010 RADHIKA GARCIA APRN D V04.81 Flu Dx (3 Yrs And Above, Im) 12/15/2010 JUDY FELTONSSABASIE D 300.00 ANXIETY STATE UNSPECIFIED 12/15/2010 JUDY FELTONSCLARIBEL D 780.57 SLEEP APNEA 12/15/2010 JUDY DDSCLARIBEL D 780.79 FATIGUE 12/15/2010 JUDY DDSCLARIBEL D V04.81 Flu Dx (3 Yrs And Above, Im) 12/15/2010 RADHIKA GARCIA APRN D 300.00 ANXIETY STATE UNSPECIFIED 12/15/2010 ARDHIKA GARCIA APRN D 780.57 SLEEP APNEA 12/15/2010 [...] SYND 12/25/2010 Ot 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 12/25/2010 Ot 530.81 ESOPHAGEAL REFLUX 12/25/2010 [...] SYND 01/01/2011 Ot 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 01/01/2011 Ot V45.82 PERCUTANEOUS TRANSLUM CORON [...] DIABETES 03/23/2011 Ot 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 03/23/2011 Ot 794.30 ABN CARDIOVASC STUDY NOS 03/23/2011 Ot V45.82 PERCUTANEOUS TRANSLUM CORON ANGIOPLASTY 03/23/2011 Ot V58.63 LONG-TERM( CURRENT)USE OF ANTIPLATELET/AN 03/23/2011 Ot V58.69 OTH MED,LT, CURRENT USE 03/31/2011 YULY TOUCH UP EDGER, JYOTSNA S 786.2 Cough 03/31/2011 YULY TOUCH UP EDGER, JYOTSNA S 786.2 Cough 03/31/2011 YULY TOUCH UP EDGER, JYOTSNA S 786.2 Cough 03/31/2011 786.2 Cough 03/31/2011 786.2 Cough 03/31/2011 JEREMY BANDA DDS 786.2 Cough 03/31/2011 VERONIKA FELTONSJEREMY 786.2 Cough 03/31/2011 ENRIQUE R[place] DOA K 786.2 Cough 03/31/2011 YULY TOUCH UP EDGER, JYOTSNA S 786.2 Cough 03/31/2011 YULY TOUCH UP EDGER, JYOTSNA S 786.2 Cough 03/31/2011 YULY TOUCH UP EDGER, JYOTSNA S 786.2 Cough 03/31/2011 YULY TOUCH UP EDGER, JYOTSNA S 786.2 Cough 03/31/2011 STEVEN GARCIA APRNIA R 786.2 Cough 03/31/2011 YULY FELDMANN, JYOTSNA S 786.2 Cough 03/31/2011 ENRIQUE [place] DOA K 786.2 Cough 03/31/2011 YULY TOUCH UP EDGER, JYOTSNA S 786.2 Cough 03/31/2011 RISHABH TOUCH UP EDGER, YARELIS A 786.2 Cough 03/31/2011 YULY TOUCH UP EDGER, JYOTSNA S 786.2 Cough 03/31/2011 RICO DO COSME K 786.2 Cough 03/31/2011 RISHABH TOUCH UP EDGER, YARELIS A 786.2 Cough 03/31/2011 RICO DO [...] INFARCT 05/11/2011 Ot 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 05/11/2011 Ot 458.9 HYPOTENSION NOS 05/18/2011 [...] APRN 790.6 Abnormal Blood Chemistry 05/18/2011 YULY TOUCH UP EDGER, JYOTSNA S 790.6 Abnormal Blood Chemistry 05/18/2011 [...] NOS 08/18/2011 Ot 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 08/18/2011 Ot 786.50 CHEST PAIN NOS 08/18/2011 Ot 787.1 HEARTBURN 08/18/2011 Ot 789.06 ABDOMINAL PAIN, EPIGASTRIC 08/18/2011 Ot V45.82 PERCUTANEOUS TRANSLUM CORON ANGIOPLASTY 08/26/2011 JYOTSNA EMERY APRN S 386.10 Peripheral Vertigo Unspecified 08/26/2011 JYOTSNA EMERY APRN S 786.50 UNSPECIFIED CHEST PAIN 08/26/2011 JYOTSNA EMERY APRN S 386.10 Peripheral Vertigo Unspecified 08/26/2011 YULY TOUCH UP EDGER, JYOTSNA S 786.50 UNSPECIFIED CHEST PAIN 08/26/2011 YULY FELDMANN, JYOTSNA S 386.10 Peripheral Vertigo Unspecified 08/26/2011 YULY TOUCH UP EDGER, JYOTSNA S 786.50 UNSPECIFIED CHEST PAIN 08/26/2011 [...] S 386.10 Peripheral Vertigo Unspecified 08/26/2011 YULY TOUCH UP EDGER, JYOTSNA S 786.50 UNSPECIFIED CHEST PAIN 08/26/2011 YULY TOUCH UP EDGER, JYOTSNA S 386.10 Peripheral Vertigo Unspecified 08/26/2011 YULY TOUCH UP EDGER, JYOTSNA S 786.50 UNSPECIFIED CHEST PAIN 08/26/2011 YULY TOUCH UP EDGER, JYOTSNA S 386.10 Peripheral Vertigo Unspecified 08/26/2011 YULY TOUCH UP EDGER, JYOTSNA S 786.50 UNSPECIFIED CHEST PAIN 08/26/2011 YULY TOUCH UP EDGER, JYOTSNA S 386.10 Peripheral Vertigo Unspecified 08/26/2011 YULY TOUCH UP EDGER, JYOTSNA S 786.50 UNSPECIFIED CHEST PAIN 08/26/2011 GARCIA TOUCH UP EDGER, DOMINIQUE R 386.10 Peripheral Vertigo Unspecified 08/26/2011 GARCIA TOUCH UP EDGER, DOMINIQUE R 786.50 UNSPECIFIED CHEST PAIN 08/26/2011 YULY TOUCH UP EDGER, JYOTSNA S 386.10 Peripheral Vertigo Unspecified 08/26/2011 YULY TOUCH UP EDGER, JYOTSNA S 786.50 UNSPECIFIED CHEST PAIN 08/26/2011 RICO DO, COSME K 386.10 Peripheral Vertigo Unspecified 08/26/2011 RICO DO, COSME K 786.50 UNSPECIFIED CHEST PAIN 08/26/2011 YULY TOUCH UP EDGER, JYOTSNA S 386.10 Peripheral Vertigo Unspecified 08/26/2011 YULY TOUCH UP EDGER, JYOTSNA S 786.50 UNSPECIFIED CHEST PAIN 08/26/2011 RISHABH TOUCH UP EDGER, YARELIS A 386.10 Peripheral Vertigo Unspecified 08/26/2011 RISHABH TOUCH UP EDGER, YARELIS A 786.50 UNSPECIFIED CHEST PAIN 08/26/2011 YULY TOUCH UP EDGER, JYOTSNA S 386.10 Peripheral Vertigo Unspecified 08/26/2011 YULY TOUCH UP EDGER, JYOTSNA S 786.50 UNSPECIFIED CHEST PAIN 08/26/2011 RICO DO, COSME K 386.10 Peripheral Vertigo Unspecified 08/26/2011 RICO DO, COSME K 786.50 UNSPECIFIED CHEST PAIN 08/26/2011 RISHABH TOUCH UP EDGER, YARELIS A 386.10 Peripheral Vertigo Unspecified 08/26/2011 RISHABH TOUCH UP EDGER, YARELIS A 786.50 UNSPECIFIED CHEST PAIN 08/26/2011 [...] JOVANA 786.50 UNSPECIFIED CHEST PAIN 08/26/2011 YULY TOUCH UP EDGER, JYOTSNA S 386.10 Peripheral Vertigo Unspecified 08/26/2011 YULY TOUCH UP EDGER, JYOTSNA S 786.50 UNSPECIFIED CHEST PAIN 08/26/2011 JOSE AMOR, RADHIKA Jarrett 386.10 Peripheral Vertigo Unspecified 08/26/2011 RADHIKA GARCIA APRN 786.50 UNSPECIFIED CHEST PAIN 08/26/2011 JUDY DDS, CLARIBEL D 386.10 Peripheral Vertigo Unspecified 08/26/2011 JUDY DDSCLARIBEL 786.50 UNSPECIFIED CHEST PAIN 08/26/2011 GARCIA RADHIKA AMOR 386.10 Peripheral Vertigo Unspecified 08/26/2011 RADHIKA GARCIA APRN 786.50 UNSPECIFIED CHEST PAIN 11/01/2011 YULY TOUCH UP EDGER, JYOTSNA S 786.52 Chest Wall Pain 11/01/2011 YULY FELDMANN, JYOTSNA S 787.1 Heartburn 11/01/2011 YULY TOUCH UP EDGER, JYOTSNA S 787.3 Gas/bloating Pain 11/01/2011 YULY TOUCH UP EDGER, JYOTSNA S 789.06 Abdominal Pain Epigastric 11/01/2011 YULY TOUCH UP EDGER, JYOTSNA S 786.52 Chest Wall Pain 11/01/2011 YULY TOUCH UP EDGER, JYOTSNA S 787.1 Heartburn 11/01/2011 YULY TOUCH UP EDGER, JYOTSNA S 787.3 Gas/bloating Pain 11/01/2011 YULY TOUCH UP EDGER, JYOTSNA S 789.06 Abdominal Pain Epigastric 11/01/2011 YULY TOUCH UP EDGER, JYOTSNA S 786.52 Chest Wall Pain 11/01/2011 YULY TOUCH UP EDGER, JYOTSNA S 787.1 Heartburn 11/01/2011 YULY TOUCH UP EDGER, JYOTSNA S 787.3 Gas/bloating Pain 11/01/2011 YULY TOUCH UP EDGER, JYOTSNA S 789.06 Abdominal Pain Epigastric 11/01/2011 [...] K 789.06 Abdominal Pain Epigastric 11/01/2011 YULY TOUCH UP EDGER, JYOTSNA S 786.52 Chest Wall Pain 11/01/2011 YULY TOUCH UP EDGER, JYOTSNA S 787.1 Heartburn 11/01/2011 YULY TOUCH UP EDGER, JYOTSNA S 787.3 Gas/bloating Pain 11/01/2011 YULY TOUCH UP EDGER, JYOTSNA S 789.06 Abdominal Pain Epigastric 11/01/2011 YULY TOUCH UP EDGER, JYOTSNA S 786.52 Chest Wall Pain 11/01/2011 YULY TOUCH UP EDGER, JYOTSNA S 787.1 Heartburn 11/01/2011 YULY TOUCH UP EDGER, JYOTSNA S 787.3 Gas/bloating Pain 11/01/2011 YULY TOUCH UP EDGER, JYOTSNA S 789.06 Abdominal Pain Epigastric 11/01/2011 YULY TOUCH UP EDGER, JYOTSNA S 786.52 Chest Wall Pain 11/01/2011 YULY TOUCH UP EDGER, JYOTSNA S 787.1 Heartburn 11/01/2011 YULY TOUCH UP EDGER, JYOTSNA S 787.3 Gas/bloating Pain 11/01/2011 YULY TOUCH UP EDGER, JYOTSNA S 789.06 Abdominal Pain Epigastric 11/01/2011 YULY TOUCH UP EDGER, JYOTSNA S 786.52 Chest Wall Pain 11/01/2011 YULY TOUCH UP EDGER, JYOTSNA S 787.1 Heartburn 11/01/2011 YULY TOUCH UP EDGER, JYOTSNA S 787.3 Gas/bloating Pain 11/01/2011 YULY TOUCH UP EDGER, JYOTSNA S 789.06 Abdominal Pain Epigastric 11/01/2011 GARCIA TOUCH UP EDGER, DOMINIQUE R 786.52 Chest Wall Pain 11/01/2011 GARCIA TOUCH UP EDGER, DOMINIQUE R 787.1 Heartburn 11/01/2011 GARCIA TOUCH UP EDGER, DOMINIQUE R 787.3 Gas/bloating Pain 11/01/2011 GARCIA TOUCH UP EDGER, DOMINIQUE R 789.06 Abdominal Pain Epigastric 11/01/2011 YULY TOUCH UP EDGER, JYOTSNA S 786.52 Chest Wall Pain 11/01/2011 YULY TOUCH UP EDGER, JYOTSNA S 787.1 Heartburn 11/01/2011 YULY TOUCH UP EDGER, JYOTSNA S 787.3 Gas/bloating Pain 11/01/2011 YULY TOUCH UP EDGER, JYOTSNA S 789.06 Abdominal Pain Epigastric 11/01/2011 RICO DO, COSME K 786.52 Chest Wall Pain 11/01/2011 RICO DO, COSME K 787.1 Heartburn 11/01/2011 RICO DO, COSME K 787.3 Gas/bloating Pain 11/01/2011 RICO DO, COSME K 789.06 Abdominal Pain Epigastric 11/01/2011 YULY TOUCH UP EDGER, JYOTSNA S 786.52 Chest Wall Pain 11/01/2011 YULY TOUCH UP EDGER, JYOTSNA S 787.1 Heartburn 11/01/2011 YULY TOUCH UP EDGER, JYOTSNA S 787.3 Gas/bloating Pain 11/01/2011 YULY TOUCH UP EDGER, JYOTSNA S 789.06 Abdominal Pain Epigastric 11/01/2011 RISHABH TOUCH UP EDGER, YARELIS A 786.52 Chest Wall Pain 11/01/2011 RISHABH TOUCH UP EDGER, YARELIS A 787.1 Heartburn 11/01/2011 RISHABH TOUCH UP EDGER, YARELIS A 787.3 Gas/bloating Pain 11/01/2011 RISHABH TOUCH UP EDGER, YARELIS A 789.06 Abdominal Pain Epigastric 11/01/2011 YULY TOUCH UP EDGER, JYOTSNA S 786.52 Chest Wall Pain 11/01/2011 YULY TOUCH UP EDGER, JYOTSNA S 787.1 Heartburn 11/01/2011 YULY TOUCH UP EDGER, JYOTSNA S 787.3 Gas/bloating Pain 11/01/2011 YULY AMOR, JYOTSNA S 789.06 Abdominal Pain Epigastric 11/01/2011 RICO DO, COSME K 786.52 Chest Wall Pain 11/01/2011 RICO DO, COSME K 787.1 Heartburn 11/01/2011 RICO DO, COSME K 787.3 Gas/bloating Pain 11/01/2011 RICO DO, COSME K 789.06 Abdominal Pain Epigastric 11/01/2011 RISHABH TOUCH UP EDGER, YARELIS A 786.52 Chest Wall Pain 11/01/2011 RISHABH TOUCH UP EDGER, YARELIS A 787.1 Heartburn 11/01/2011 RISHABH TOUCH UP EDGER, YARELIS A 787.3 Gas/bloating Pain 11/01/2011 RISHABH TOUCH UP EDGER, YARELIS A 789.06 Abdominal Pain Epigastric 11/01/2011 RICO DO, COSME K 786.52 Chest Wall Pain 11/01/2011 RICO DO, COSME K 787.1 Heartburn 11/01/2011 RICO DO, COSME K 787.3 Gas/bloating Pain 11/01/2011 RICO DO, COSME K 789.06 Abdominal Pain Epigastric 11/01/2011 TAN DDS, JOVANA 786.52 Chest Wall Pain 11/01/2011 TAN DDS, JOVANA 787.1 Heartburn 11/01/2011 TAN DDS, JOVANA 787.3 Gas/bloating Pain 11/01/2011 TNA DDS, JOVANA 789.06 Abdominal Pain Epigastric 11/01/2011 [...] INFARCT 01/24/2012 Ot 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 01/24/2012 Ot 786.50 CHEST PAIN NOS [...] EMERY APRNA S 110.1 ONYCHOMYCOSIS 05/23/2012 YULY TOUCH UP EDGER, JYOTSNA S 724.5 BACKACHE UNSPECIFIED 05/23/2012 YULY TOUCH UP EDGER, JYOTSNA S 110.1 ONYCHOMYCOSIS 05/23/2012 YULY TOUCH UP EDGER, JYOTSNA S 724.5 BACKACHE UNSPECIFIED 05/23/2012 GARCIA TOUCH UP EDGER, DOMINIQUE R 110.1 ONYCHOMYCOSIS 05/23/2012 GARCIA TOUCH UP EDGER, DOMINIQUE R 724.5 BACKACHE UNSPECIFIED 05/23/2012 YULY TOUCH UP EDGER, JYOTSNA S 110.1 ONYCHOMYCOSIS 05/23/2012 YULY TOUCH UP EDGER, JYOTSNA S 724.5 BACKACHE UNSPECIFIED 05/23/2012 RICO DO, COSME K 110.1 ONYCHOMYCOSIS 05/23/2012 RICO DO, COSME K 724.5 BACKACHE UNSPECIFIED 05/23/2012 YULY TOUCH UP EDGER, JYOTSNA S 110.1 ONYCHOMYCOSIS 05/23/2012 YULY TOUCH UP EDGER, JYOTSNA S 724.5 BACKACHE UNSPECIFIED 05/23/2012 RISHABH TOUCH UP EDGER, YARELIS A 110.1 ONYCHOMYCOSIS 05/23/2012 RISHABH TOUCH UP EDGER, YARELIS A 724.5 BACKACHE UNSPECIFIED 05/23/2012 YULY TOUCH UP EDGER, JYOTSNA S 110.1 ONYCHOMYCOSIS 05/23/2012 YULY TOUCH UP EDGER, JYOTSNA S 724.5 BACKACHE UNSPECIFIED 05/23/2012 RICO DO, COSME K 110.1 ONYCHOMYCOSIS 05/23/2012 RICO DO, COSME K 724.5 BACKACHE UNSPECIFIED 05/23/2012 RISHABH TOUCH UP EDGER, YARELIS A 110.1 ONYCHOMYCOSIS 05/23/2012 RISHABH TOUCH UP EDGER, YARELIS A 724.5 BACKACHE UNSPECIFIED 05/23/2012 RICO DO, COSME K 110.1 ONYCHOMYCOSIS 05/23/2012 RICO DO, COSME K 724.5 BACKACHE UNSPECIFIED 05/23/2012 TAN DDS, JOVANA 110.1 ONYCHOMYCOSIS 05/23/2012 TAN DDS, JOVANA 724.5 BACKACHE UNSPECIFIED 05/23/2012 TAN DDS, JOVANA 110.1 ONYCHOMYCOSIS 05/23/2012 TAN DDS, JOVANA 724.5 BACKACHE UNSPECIFIED 05/23/2012 TAN DDS, JOVANA 110.1 ONYCHOMYCOSIS 05/23/2012 TAN DDS, JOVANA 724.5 BACKACHE UNSPECIFIED 05/23/2012 YULY TOUCH UP EDGER, JYOTSNA S 110.1 ONYCHOMYCOSIS 05/23/2012 YULY TOUCH UP EDGER, JYOTSNA S 724.5 BACKACHE UNSPECIFIED 05/23/2012 GARCIA TOUCH UP EDGER, RADHIKA D 110.1 ONYCHOMYCOSIS 05/23/2012 GARCIA TOUCH UP EDGER, RADHIKA D 724.5 BACKACHE UNSPECIFIED 05/23/2012 JUDY DDS, CLARIBEL D 110.1 ONYCHOMYCOSIS 05/23/2012 JUDY DDS, CLARIBEL D 724.5 BACKACHE UNSPECIFIED 05/23/2012 JOSE TOUCH UP EDGER, RADHIKA D 110.1 ONYCHOMYCOSIS 05/23/2012 JOSE TOUCH UP EDGER, RADHIKA D 724.5 BACKACHE UNSPECIFIED 09/15/2012 DAMARIS LUTHER FACC, JED FACP CCDS Ot 250.00 DIAB RANDALL WO COMPL, TYPE II OR UNSPEC TY 09/15/2012 JED OCAMPO MD, FACC FACP CCDS Ot 272.4 HYPERLIPIDEMIA NEC/NOS 09/15/2012 JED OCAMPO MD, FACC FACP CCDS Ot 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 09/15/2012 JED OCAMPO MD, FACC FACP [...] K V03.82 PPV23 (PNEUMOVAX) DX 01/22/2013 YULY TOUCH UP EDGER, JYOTSNA S 530.81 GERD 01/22/2013 YULY TOUCH UP EDGER, JYOTSNA S 703.0 INGROWING NAIL 01/22/2013 YULY TOUCH UP EDGER, JYOTSNA S V03.82 PPV23 (PNEUMOVAX) DX 01/22/2013 YULY TOUCH UP EDGER, JYOTSNA S 530.81 GERD 01/22/2013 YULY TOUCH UP EDGER, JYOTSNA S 703.0 INGROWING NAIL 01/22/2013 YULY TOUCH UP EDGER, JYOTSNA S V03.82 PPV23 (PNEUMOVAX) DX 01/22/2013 YULY TOUCH UP EDGER, JYOTSNA S 530.81 GERD 01/22/2013 YULY TOUCH UP EDGER, JYOTSNA S 703.0 INGROWING NAIL 01/22/2013 YULY TOUCH UP EDGER, JYOTSNA S V03.82 PPV23 (PNEUMOVAX) DX 01/22/2013 GARCIA TOUCH UP EDGER, DOMINIQUE R 530.81 GERD 01/22/2013 GARCIA TOUCH UP EDGER, DOMINIQUE R 703.0 INGROWING NAIL 01/22/2013 GARCIA TOUCH UP EDGER, DOMINIQUE R V03.82 PPV23 (PNEUMOVAX) DX 01/22/2013 YULY TOUCH UP EDGER, JYOTSNA S 530.81 GERD 01/22/2013 YULY TOUCH UP EDGER, JYOTSNA S 703.0 INGROWING NAIL 01/22/2013 YULY TOUCH UP EDGER, JYOTSNA S V03.82 PPV23 (PNEUMOVAX) DX 01/22/2013 RICO DO, COSME K 530.81 GERD 01/22/2013 RICO DO, COSME K 703.0 INGROWING NAIL 01/22/2013 RICO DO, COSME K V03.82 PPV23 (PNEUMOVAX) DX 01/22/2013 YULY TOUCH UP EDGER, JYOTSNA S 530.81 GERD 01/22/2013 YULY TOUCH UP EDGER, JYOTSNA S 703.0 INGROWING NAIL 01/22/2013 YULY TOUCH UP EDGER, JYOTSNA S V03.82 PPV23 (PNEUMOVAX) DX 01/22/2013 RISHABH TOUCH UP EDGER, YARELIS A 530.81 GERD 01/22/2013 RISHABH TOUCH UP EDGER, YARELIS A 703.0 INGROWING NAIL 01/22/2013 RISHABH TOUCH UP EDGER, YARELIS A V03.82 PPV23 (PNEUMOVAX) DX 01/22/2013 YULY TOUCH UP EDGER, JYOTSNA S 530.81 GERD 01/22/2013 YULY TOUCH UP EDGER, JYOTSNA S 703.0 INGROWING NAIL 01/22/2013 YULY TOUCH UP EDGER, JYOTSNA S V03.82 PPV23 (PNEUMOVAX) DX 01/22/2013 RICO DO, COSME K 530.81 GERD 01/22/2013 RICO DO, COSME K 703.0 INGROWING NAIL 01/22/2013 RICO DO, COSME K V03.82 PPV23 (PNEUMOVAX) DX 01/22/2013 RISHABH TOUCH UP EDGER, YARELIS A 530.81 GERD 01/22/2013 RISHABH TOUCH UP EDGER, YARELIS A 703.0 INGROWING NAIL 01/22/2013 RISHABH TOUCH UP EDGER, YARELIS A V03.82 PPV23 (PNEUMOVAX) DX 01/22/2013 [...] AMOR JYOTSNA S 530.81 GERD 01/22/2013 YULY TOUCH UP EDGER, JYOTSNA S 703.0 INGROWING NAIL 01/22/2013 YULY TOUCH UP EDGER, JYOTSNA S V03.82 PPV23 (PNEUMOVAX) DX 01/22/2013 [...] DO 465.9 UPPER RESPIRATORY INFECTION 04/25/2013 YULY TOUCH UP EDGER, JYOTSNA S 465.9 UPPER RESPIRATORY INFECTION 04/25/2013 RISHABH TOUCH UP EDGER, YARELIS A 465.9 UPPER RESPIRATORY INFECTION 04/25/2013 YULY TOUCH UP EDGER, JYOTSNA S 465.9 UPPER RESPIRATORY INFECTION 04/25/2013 RICO DO, COSME K 465.9 UPPER RESPIRATORY INFECTION 04/25/2013 RISHABH TOUCH UP EDGER, YARELIS A 465.9 UPPER RESPIRATORY INFECTION 04/25/2013 RICO DO, COSME K 465.9 UPPER RESPIRATORY INFECTION 04/25/2013 TAN DDS, JOVANA 465.9 UPPER RESPIRATORY INFECTION 04/25/2013 TAN DDS, JOVANA 465.9 UPPER RESPIRATORY INFECTION 04/25/2013 TAN DDS, JOVANA 465.9 UPPER RESPIRATORY INFECTION 04/25/2013 YULY TOUCH UP EDGER, JYOTSNA S 465.9 UPPER RESPIRATORY INFECTION 04/25/2013 RADHIKA GARCIA APRN D 465.9 UPPER RESPIRATORY INFECTION 04/25/2013 JUDY DDS, CLARIBEL D 465.9 UPPER RESPIRATORY INFECTION 04/25/2013 JOSE TOUCH UP EDGERRADHIKA D 465.9 UPPER RESPIRATORY INFECTION 05/23/2013 YULY FELDMANN, JYOTSNA S 414.00 CAD 05/23/2013 YULY FELDMANN, JYOTSNA S 564.1 IRRITABLE BOWEL SYNDROME 05/23/2013 YULY TOUCH UP EDGER, JYOTSNA S 414.00 CAD 05/23/2013 YULY TOUCH UP EDGER, JYOTSNA S 564.1 IRRITABLE BOWEL SYNDROME 05/23/2013 RADHA FELDMANN DOMINIQUE R 414.00 CAD 05/23/2013 RADHA TOUCH UP EDGER, DOMINIQUE R 564.1 IRRITABLE BOWEL SYNDROME 05/23/2013 YULY TOUCH UP EDGER, JYOTSNA S 414.00 CAD 05/23/2013 YULY TOUCH UP EDGER, JYOTSNA S 564.1 IRRITABLE BOWEL SYNDROME 05/23/2013 RICO DO COSME K 414.00 CAD 05/23/2013 RICO DO, COSME K 564.1 IRRITABLE BOWEL SYNDROME 05/23/2013 YULY TOUCH UP EDGER, JYOTSNA S 414.00 CAD 05/23/2013 YULY FELDMANN, JYOTSNA S 564.1 IRRITABLE BOWEL SYNDROME 05/23/2013 RISHABH TOUCH UP EDGER, YARELIS A 414.00 CAD 05/23/2013 RISHABH TOUCH UP EDGER, YARELIS A 564.1 IRRITABLE BOWEL SYNDROME 05/23/2013 YULY AMOR, JYOTSNA S 414.00 CAD 05/23/2013 YULY AMOR, JYOTSNA S 564.1 IRRITABLE BOWEL SYNDROME 05/23/2013 RICO DO, COSME K 414.00 CAD 05/23/2013 RICO DO, COSME K 564.1 IRRITABLE BOWEL SYNDROME 05/23/2013 RISHABH TOUCH UP EDGER, YARELIS A 414.00 CAD 05/23/2013 RISHABH TOUCH UP EDGER, YARELIS A 564.1 IRRITABLE BOWEL SYNDROME 05/23/2013 [...] COSME K 466.0 BRONCHITIS, ACUTE 06/01/2013 YULY TOUCH UP EDGER, JYOTSNA S 466.0 BRONCHITIS, ACUTE 06/01/2013 RISHABH TOUCH UP EDGER, YARELIS A 466.0 BRONCHITIS, ACUTE 06/01/2013 YULY TOUCH UP EDGER, JYOTSNA S 466.0 BRONCHITIS, ACUTE 06/01/2013 RICO DO, COSME K 466.0 BRONCHITIS, ACUTE 06/01/2013 RISHABH TOUCH UP EDGER, YARELIS A 466.0 BRONCHITIS, ACUTE 06/01/2013 RICO DO, COSME K 466.0 BRONCHITIS, ACUTE 06/01/2013 TAN DDS, JOVANA 466.0 BRONCHITIS, ACUTE 06/01/2013 TAN DDS, JOVANA 466.0 BRONCHITIS, ACUTE 06/01/2013 TAN DDS, JOVANA 466.0 BRONCHITIS, ACUTE 06/01/2013 YULY TOUCH UP EDGER, JYOTSNA S 466.0 BRONCHITIS, ACUTE 06/01/2013 RADHIKA GARCIA APRN 466.0 BRONCHITIS, ACUTE 06/01/2013 JUDY DDS, CLARIBEL D 466.0 BRONCHITIS, ACUTE 06/01/2013 RADHIKA GARCIA APRN 466.0 BRONCHITIS, ACUTE 06/07/2013 YULY TOUCH UP EDGER, JYOTSNA S 786.2 COUGH 06/07/2013 RICO DO, COSME K 786.2 COUGH 06/07/2013 YULY TOUCH UP EDGER, JYOTSNA S 786.2 COUGH 06/07/2013 RISHABH TOUCH UP EDGER, YARELIS A 786.2 COUGH 06/07/2013 YULY TOUCH UP EDGER, JYOTSNA S 786.2 COUGH 06/07/2013 RICO DO, COSME K 786.2 COUGH 06/07/2013 RISHABH TOUCH UP EDGER, YARELIS A 786.2 COUGH 06/07/2013 RICO DO, COSME K 786.2 COUGH 06/07/2013 TAN DDS, JOVANA 786.2 COUGH 06/07/2013 TAN DDS, JOVANA 786.2 COUGH 06/07/2013 TAN DDS, JOVANA 786.2 COUGH 06/07/2013 YULY TOUCH UP EDGER, JYOTSNA S 786.2 COUGH 06/07/2013 RADHIKA GARCIA APRN 786.2 COUGH 06/07/2013 JUDY DDS, CLARIBEL D 786.2 COUGH 06/07/2013 GARCIA TOUCH UP EDGER, RADHIKA D 786.2 COUGH 07/20/2013 RICO DO, COSME K 272.4 HYPERLIPIDEMIA 07/20/2013 RICO DO, COSME K 401.9 HYPERTENSION, UNSPECIFIED ESSENTIAL 07/20/2013 RICO DO, COSME K 785.9 CAROTID BRUIT 07/20/2013 YULY TOUCH UP EDGER, JYOTSNA S 272.4 HYPERLIPIDEMIA 07/20/2013 YULY TOUCH UP EDGER, JYOTSNA S 401.9 HYPERTENSION, UNSPECIFIED ESSENTIAL 07/20/2013 YULY TOUCH UP EDGER, JYOTSNA S 785.9 CAROTID BRUIT 07/20/2013 RISHABH TOUCH UP EDGER, YARELIS A 272.4 HYPERLIPIDEMIA 07/20/2013 RISHABH TOUCH UP EDGER, YARELIS A 401.9 HYPERTENSION, UNSPECIFIED ESSENTIAL 07/20/2013 RISHABH TOUCH UP EDGER, YARELIS A 785.9 CAROTID BRUIT 07/20/2013 YULY TOUCH UP EDGER, JYOTSNA S 272.4 HYPERLIPIDEMIA 07/20/2013 YULY TOUCH UP EDGER, JYOTSNA S 401.9 HYPERTENSION, UNSPECIFIED ESSENTIAL 07/20/2013 YULY TOUCH UP EDGER, JYOTSNA S 785.9 CAROTID BRUIT 07/20/2013 RICO DO, COSME K 272.4 HYPERLIPIDEMIA 07/20/2013 RICO DO, COSME K 401.9 HYPERTENSION, UNSPECIFIED ESSENTIAL 07/20/2013 RICO DO, COSME K 785.9 CAROTID BRUIT 07/20/2013 RISHABH TOUCH UP EDGER, YARELIS A 272.4 HYPERLIPIDEMIA 07/20/2013 RISHABH TOUCH UP EDGER, YARELIS A 401.9 HYPERTENSION, UNSPECIFIED ESSENTIAL 07/20/2013 RISHABH TOUCH UP EDGER, YARELIS A 785.9 CAROTID BRUIT 07/20/2013 RICO [...] CLARIBEL D 401.9 HYPERTENSION, UNSPECIFIED ESSENTIAL 07/20/2013 UJDY DDS, CLARIBEL D 785.9 CAROTID BRUIT 07/20/2013 REJI GARCIA APRNON D 272.4 HYPERLIPIDEMIA 07/20/2013 REJI GARCIA APRNON D 401.9 HYPERTENSION, UNSPECIFIED ESSENTIAL 07/20/2013 REJI GARCIA APRNON D 785.9 CAROTID BRUIT 09/26/2013 YARELIS KEATING APRN V16.0 FAMILY HX COLON CANCER 09/26/2013 YARELIS KEATING APRN V72.31 DENTAL RECEPTIONIST EXAM, ROUTINE 09/26/2013 YARELIS KEATING APRN V76.10 BREAST CANCER SCREENING 09/26/2013 YARELIS KEATING APRN V76.51 COLON CANCER SCREENING 09/26/2013 YARELIS KEATING APRN V82.81 SPECIAL SCREENING FOR OSTEOPOROSIS 09/26/2013 JYOTSNA EMERY APRN S V16.0 FAMILY HX COLON CANCER 09/26/2013 YULY TOUCH UP EDGER, JYOTSNA S V72.31 DENTAL RECEPTIONIST EXAM, ROUTINE 09/26/2013 YULY TJ AMORNDA S V76.10 BREAST CANCER SCREENING 09/26/2013 YULY TJ AMORNDA S V76.51 COLON CANCER SCREENING 09/26/2013 YULY TJ AMORNDA S V82.81 SPECIAL SCREENING FOR OSTEOPOROSIS 09/26/2013 ENRIQUE [place] DOA K V16.0 FAMILY HX COLON CANCER 09/26/2013 ENRIQUE [place] DOA K V72.31 DENTAL RECEPTIONIST EXAM, ROUTINE 09/26/2013 ENRIQUE [place] DOA K V76.10 BREAST CANCER SCREENING 09/26/2013 RICO ENRIQUE SPENCERA K V76.51 COLON CANCER SCREENING 09/26/2013 RICO ENRIQUE SPENCERA K V82.81 SPECIAL SCREENING FOR OSTEOPOROSIS 09/26/2013 RISHABHYARELIS Gomez APRN A V16.0 FAMILY HX COLON CANCER 09/26/2013 RISHABHYARELIS BAUTISTA APRN A V72.31 DENTAL RECEPTIONIST EXAM, ROUTINE 09/26/2013 RISHABHYARELIS BAUTISTA APRN A V76.10 BREAST CANCER SCREENING 09/26/2013 RISHABHYARELIS Gomez APRN A V76.51 COLON CANCER SCREENING 09/26/2013 RISHABHYARELIS Gomez APRN A V82.81 SPECIAL SCREENING FOR OSTEOPOROSIS 09/26/2013 ENRIQUE [place] DOA K V16.0 FAMILY HX COLON CANCER 09/26/2013 ENRIQUE [place] DOA K V72.31 DENTAL RECEPTIONIST EXAM, ROUTINE 09/26/2013 ENRIQUE [place] DOA K V76.10 BREAST CANCER SCREENING 09/26/2013 ENRIQUE [place] DOA K V76.51 COLON CANCER SCREENING 09/26/2013 RICO ENRIQUE SPENCERA K V82.81 SPECIAL SCREENING FOR OSTEOPOROSIS 09/26/2013 TAN DDSJOVANA V16.0 FAMILY HX COLON CANCER 09/26/2013 TAN DDSJOVANA V72.31 DENTAL RECEPTIONIST EXAM, ROUTINE 09/26/2013 TAN DDSJOVANA V76.10 BREAST CANCER SCREENING 09/26/2013 TAN DDS, JOVANA V76.51 COLON CANCER SCREENING 09/26/2013 TNA DDS, JOVANA V82.81 SPECIAL SCREENING FOR OSTEOPOROSIS 09/26/2013 TAN DDS, JOVANA V16.0 FAMILY HX COLON CANCER 09/26/2013 TAN DDS, JOVANA V72.31 DENTAL RECEPTIONIST EXAM, ROUTINE 09/26/2013 TAN DDS, JOVANA V76.10 BREAST CANCER SCREENING 09/26/2013 TAN DDS, JOVANA V76.51 COLON CANCER SCREENING 09/26/2013 TAN DDS, JOVANA V82.81 SPECIAL SCREENING FOR OSTEOPOROSIS 09/26/2013 TAN DDS, JOVANA V16.0 FAMILY HX COLON CANCER 09/26/2013 TAN DDS, JOVANA V72.31 DENTAL RECEPTIONIST EXAM, ROUTINE 09/26/2013 TAN DDS, JOVANA V76.10 BREAST CANCER SCREENING 09/26/2013 TAN DDS, JOVANA V76.51 COLON CANCER SCREENING 09/26/2013 TAN DDS, JOVANA V82.81 SPECIAL SCREENING FOR OSTEOPOROSIS 09/26/2013 RADHA EMERY APRNA S V16.0 FAMILY HX COLON CANCER 09/26/2013 RADHA EMERY APRNA S V72.31 DENTAL RECEPTIONIST EXAM, ROUTINE 09/26/2013 TJ EMERY APRNNDA S V76.10 BREAST CANCER SCREENING 09/26/2013 TJ EMERY APRNNDA S V76.51 COLON CANCER SCREENING 09/26/2013 RADHA EMERY APRNA S V82.81 SPECIAL SCREENING FOR OSTEOPOROSIS 09/26/2013 RADHIKA GARCIA APRN V16.0 FAMILY HX COLON CANCER 09/26/2013 RADHIKA GARCIA APRN V72.31 DENTAL RECEPTIONIST EXAM, ROUTINE 09/26/2013 RADHIKA GARCIA APRN V76.10 BREAST CANCER SCREENING 09/26/2013 RADHIKA GARCIA APRN V76.51 COLON CANCER SCREENING 09/26/2013 RADHIKA GARCIA APRN V82.81 SPECIAL SCREENING FOR OSTEOPOROSIS 09/26/2013 JUDY DDCLARIBEL Sinclair V16.0 FAMILY HX COLON CANCER 09/26/2013 JUDY DDS, CLARIBEL Jarrett V72.31 DENTAL RECEPTIONIST EXAM, ROUTINE 09/26/2013 JUDY FELTONSCLARIBEL V76.10 BREAST CANCER SCREENING 09/26/2013 JUDY DDS, CLARIBEL Jarrett V76.51 COLON CANCER SCREENING 09/26/2013 CLARIBEL KIM DDS V82.81 SPECIAL SCREENING FOR OSTEOPOROSIS 09/26/2013 RADHIKA GARCIA APRN V16.0 FAMILY HX COLON CANCER 09/26/2013 RADHIKA GARCIA APRN V72.31 DENTAL RECEPTIONIST EXAM, ROUTINE 09/26/2013 RADHIKA GARCIA APRN V76.10 BREAST CANCER SCREENING 09/26/2013 RADIHKA GARCIA APRN V76.51 COLON CANCER SCREENING 09/26/2013 RADHIKA GARCIA APRN V82.81 SPECIAL SCREENING FOR OSTEOPOROSIS 10/11/2013 KACIE HARRINGTON MD Ot 250.00 DIAB RANDALL WO COMPL, TYPE II OR UNSPEC TY 10/11/2013 KACIE HARRINGTON MD Ot 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 10/11/2013 KACIE HARRINGTON MD Ot 786.50 [...] V58.69 09/22/2014 Ot V72.84 09/22/2014 DARLINE TRAYLOR ACCIDENT EXAMINER Ot 786.05 09/22/2014 DARLINE TRAYLOR ACCIDENT EXAMINER Ot 786.05 09/22/2014 DAMARIS LUTHER FACGino, JED [...] AQUILINO K Ot 401.9 09/22/2014 NIEVES-ROBB PA, AQUILION K Ot 414.00 09/22/2014 NIEVES-ROBB PA, AQUILINO K Ot 250.00 09/22/2014 NIEVES-ROBB PA, AQUILINO K Ot 272.4 09/22/2014 NIEVES-ROBB PA, AQUILINO K Ot 401.9 09/22/2014 NIEVES-ROBB PA, AQUILINO K Ot 414.00 09/22/2014 NIEVES-ROBB PA, AQUILINO K Ot 785.9 09/22/2014 YARELIS KEATING TOUCH UP EDGER Ot V16.0 09/22/2014 YARELIS KEATING TOUCH UP EDGER Ot V72.31 09/22/2014 SHERON KEATINGIDI Laila TOUCH UP EDGER Ot V76.12 09/22/2014 YARELIS KEATING TOUCH UP EDGER Ot V76.51 09/22/2014 YARELIS KEATING TOUCH UP EDGER Ot V82.81 11/05/2014 Ot 414.00 11/05/2014 Ot 786.50 11/05/2014 Ot 414.01 11/05/2014 Ot 427.9 11/05/2014 Ot 786.50 11/05/2014 Ot 593.9 11/05/2014 Ot 414.01 11/05/2014 Ot V58.69 11/05/2014 Ot V72.84 11/05/2014 DARLINE TRAYLOR ACCIDENT EXAMINER Ot 786.05 11/05/2014 DARLINE TRAYLOR ACCIDENT EXAMINER Ot 786.05 11/05/2014 DAMARIS LUTHER FACC, JED [...] K Ot 785.9 11/05/2014 RISHABH YARELIS A TOUCH UP EDGER Ot V16.0 11/05/2014 RISHABH, YARELIS A TOUCH UP EDGER Ot V72.31 11/05/2014 RISHABH YARELIS A TOUCH UP EDGER Ot V76.12 11/05/2014 RISHABH, YARELIS A TOUCH UP EDGER Ot V76.51 11/05/2014 RISHABH, YARELIS A TOUCH UP EDGER Ot V82.81 11/05/2014 Ot 414.00 11/05/2014 Ot 786.50 11/05/2014 Ot 414.01 11/05/2014 Ot 427.9 11/05/2014 Ot 786.50 11/05/2014 Ot 593.9 11/05/2014 Ot 414.01 11/05/2014 Ot V58.69 11/05/2014 Ot V72.84 11/05/2014 DARLINE TRAYLOR ACCIDENT EXAMINER Ot 786.05 11/05/2014 DARLINE TRAYLOR ACCIDENT EXAMINER Ot 786.05 11/05/2014 DAMARIS LUTHER FACC, ALI [...] PA, AQUILINO K Ot 785.9 11/05/2014 RISHABHYARELIS TOUCH UP EDGER Ot V16.0 11/05/2014 RISHABHSHERONYARELIS A TOUCH UP EDGER Ot V72.31 11/05/2014 RISHABHSHERONYARELIS A TOUCH UP EDGER Ot V76.12 11/05/2014 RISHABH YARELIS Laila TOUCH UP EDGER Ot V76.51 11/05/2014 RISHABH YARELIS Laila TOUCH UP EDGER Ot V82.81 11/06/2014 Ot 414.00 11/06/2014 Ot 786.50 11/06/2014 Ot 414.01 11/06/2014 Ot 427.9 11/06/2014 Ot 786.50 11/06/2014 Ot 593.9 11/06/2014 Ot 414.01 11/06/2014 Ot V58.69 11/06/2014 Ot V72.84 11/06/2014 DARLINE TRAYLOR ACCIDENT EXAMINER Ot 786.05 11/06/2014 DARLINE TRAYLOR ACCIDENT EXAMINER Ot 786.05 11/06/2014 DAMARIS LUTHER FAC, ALI FACP CCDS Ot 414.00 11/06/2014 DAMARIS LUTHER FACC, ALI FACP CCDS Ot 786.50 11/06/2014 DAMARIS LTUHER FACC, ALI FACP CCDS Ot 272.4 11/06/2014 [...] K Ot 785.9 11/06/2014 RISHABH, YARELIS A TOUCH UP EDGER Ot V16.0 11/06/2014 RISHABH, YARELIS A TOUCH UP EDGER Ot V72.31 11/06/2014 RISHABH, YARELIS A TOUCH UP EDGER Ot V76.12 11/06/2014 RISHABH, YARELIS A TOUCH UP EDGER Ot V76.51 11/06/2014 RISHABH, YARELIS A TOUCH UP EDGER Ot V82.81 11/06/2014 NIEVES-ROBB PA, AQUILINO K [...] 03/17/2015 Ot V72.84 03/17/2015 KYMBERLY DARLINE Nadia ACCIDENT EXAMINER Ot 786.05 03/17/2015 DARLINE TRAYLOR ACCIDENT EXAMINER Ot 786.05 03/17/2015 DAMARIS LUTHER FACC, ALI [...] AQUILINO K Ot 785.9 03/17/2015 YARELIS KEATING TOUCH UP EDGER Ot V16.0 03/17/2015 YARELIS KEATING TOUCH UP EDGER Ot V72.31 03/17/2015 YARELIS KEATING TOUCH UP EDGER Ot V76.12 03/17/2015 YARELIS KEATING TOUCH UP EDGER Ot V76.51 03/17/2015 YARELIS KEATING TOUCH UP EDGER Ot V82.81 03/17/2015 DMITRY PA, AQUILINO K [...] V58.69 06/18/2015 Ot V72.84 06/18/2015 DARLINE TRAYLOR ACCIDENT EXAMINER Ot 786.05 06/18/2015 DARLINE TRAYLOR ACCIDENT EXAMINER Ot 786.05 06/18/2015 DAMARIS LUTHER FAC, ALI [...] K Ot 785.9 06/18/2015 YARELIS KEATING A TOUCH UP EDGER Ot V16.0 06/18/2015 RISHABH YARELIS A TOUCH UP EDGER Ot V72.31 06/18/2015 RISHABH YARELIS A TOUCH UP EDGER Ot V76.12 06/18/2015 RISHABH YARELIS A TOUCH UP EDGER Ot V76.51 06/18/2015 RISHABH YARELIS A TOUCH UP EDGER Ot V82.81 06/18/2015 DMITRY PA, AQUILINO K [...] K Ot I25.10 ATHSCL HEART DISEASE OF [place] CORONARY 08/27/2015 NIEVES-AQUILINO LAWTON Ot I25.10 ATHSCL HEART DISEASE OF [place] CORONARY 08/29/2015 AQUILINO MUKHERJEE Ot I25.10 ATHSCL HEART DISEASE OF [place] CORONARY 08/29/2015 AQUILINO MUKHERJEE Ot E78.2 MIXED HYPERLIPIDEMIA 08/29/2015 AQUILINO MUKHERJEE Ot I25.10 ATHSCL HEART DISEASE OF [place] CORONARY 08/29/2015 AQUILINO MUKHERJEE Ot I34.0 NONRHEUMATIC MITRAL (VALVE) INSUFFICIENC 08/29/2015 AQUILINO MUKHERJEE Ot I65.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 09/05/2015 AQUILINO MUKHERJEE Ot I25.10 ATHSCL HEART DISEASE OF [place] CORONARY 09/10/2015 AQUILINO MUKHERJEE Ot E78.2 MIXED HYPERLIPIDEMIA 09/10/2015 AQUILINO MUKHERJEE Ot I25.10 ATHSCL HEART DISEASE OF [place] CORONARY 09/10/2015 AQUILINO MUKHERJEE Ot I34.0 NONRHEUMATIC MITRAL (VALVE) INSUFFICIENC 09/10/2015 AQUILINO MUKHERJEE Ot I65.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 01/13/2016 JYOTSNA EMERY Ot G47.33 OBSTRUCTIVE SLEEP APNEA (ADULT) (PEDIATR 01/13/2016 JYOTSNA EMERY Ot G47.33 OBSTRUCTIVE SLEEP APNEA (ADULT) (PEDIATR 02/09/2016 AQUILINO MUKHERJEE Ot I25.10 ATHSCL HEART DISEASE OF [place] CORONARY 02/12/2016 Ot 414.00 CORON ATHEROSCLER NOS TYPE VESSEL, NATIV 02/12/2016 Ot 786.50 CHEST PAIN NOS 02/12/2016 Ot 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 02/12/2016 Ot 427.9 CARDIAC DYSRHYTHMIA NOS 02/12/2016 Ot 786.50 CHEST PAIN NOS 02/12/2016 Ot 593.9 RENAL URETERAL DIS NOS 02/12/2016 Ot 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 02/12/2016 Ot V58.69 OT MED,LT, CURRENT USE 02/12/2016 Ot V72.84 EXAM PRE- OPERATIVE NOS 02/12/2016 DARLINE TRAYLOR ACCIDENT EXAMINER Ot 786.05 SHORTNESS OF BREATH 02/12/2016 DARLINE TRAYLOR ACCIDENT EXAMINER Ot 786.05 SHORTNESS OF BREATH 02/12/2016 DAMARIS [...] MAMMO-MALIGN NEOPLASM OF [place] 02/12/2016 YARELIS KEATING TOUCH UP EDGER Ot V76.51 SCREEN MAL NEOP-COLON 02/12/2016 YARELIS KEATING TOUCH UP EDGER Ot V82.81 SCREENING FOR OSTEOPOROSIS 02/12/2016 AQUILINO [...] MUKHERJEE Ot I25.10 ATHSCL HEART DISEASE OF [place] CORONARY 02/12/2016 AQUILINO MUKHERJEE Ot E78.2 MIXED HYPERLIPIDEMIA 02/12/2016 AQUILINO MUKHERJEE Ot I25.10 ATHSCL HEART DISEASE OF [place] CORONARY 02/12/2016 AQUILINO MUKHERJEE Ot I34.0 NONRHEUMATIC MITRAL (VALVE) INSUFFICIENC 02/12/2016 AQUILINO MUKHERJEE Ot I65.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 02/12/2016 AQUILINO MUKHERJEE Ot E78.2 MIXED HYPERLIPIDEMIA 02/12/2016 AQUILINO MUKHERJEE Ot I25.10 ATHSCL HEART DISEASE OF [place] CORONARY 02/12/2016 AQUILINO MUKHERJEE Ot I34.0 NONRHEUMATIC MITRAL (VALVE) INSUFFICIENC 02/12/2016 AQUILINO MUKHERJEE Ot I65.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 02/26/2016 AQUILINO MUKHERJEE Ot E78.2 MIXED HYPERLIPIDEMIA 02/26/2016 AQUILINO MUKHERJEE Ot I25.10 ATHSCL HEART DISEASE OF [place] CORONARY 02/26/2016 AQUILINO MUKHERJEE Ot I34.0 NONRHEUMATIC MITRAL (VALVE) INSUFFICIENC 02/26/2016 AQUILINO MUKHERJEE Ot I65.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 03/05/2016 Ot 414.00 CORON ATHEROSCLER NOS TYPE VESSEL, NATIV 03/05/2016 Ot 786.50 CHEST PAIN NOS 03/05/2016 Ot 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 03/05/2016 Ot 427.9 CARDIAC DYSRHYTHMIA NOS 03/05/2016 Ot 786.50 CHEST PAIN NOS 03/05/2016 Ot 593.9 RENAL URETERAL DIS NOS 03/05/2016 Ot 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 03/05/2016 Ot V58.69 OT MED,LT, CURRENT USE 03/05/2016 Ot V72.84 EXAM PRE- OPERATIVE NOS 03/05/2016 DARLINE TRAYLOR ACCIDENT EXAMINER Ot 786.05 SHORTNESS OF BREATH 03/05/2016 DARLINE TRAYLOR ACCIDENT EXAMINER Ot 786.05 SHORTNESS OF BREATH 03/05/2016 DAMARIS [...] V16.0 FAMILY HX-GI MALIGNANCY 03/05/2016 YARELIS KEATING TOUCH UP EDGER Ot V72.31 ROUTINE GYNECOLOGICAL EXAMINATION 03/05/2016 YARELIS KEATING TOUCH UP EDGER Ot V76.12 OTH SCREEN MAMMO-MALIGN NEOPLASM OF [place] 03/05/2016 YARELIS KEATING TOUCH UP EDGER Ot V76.51 SCREEN MAL NEOP-COLON 03/05/2016 YARELIS [...] MUKHERJEE Ot I25.10 ATHSCL HEART DISEASE OF [place] CORONARY 03/05/2016 AQUILINO MUKHERJEE Ot E78.2 MIXED HYPERLIPIDEMIA 03/05/2016 AQUILINO MUKHERJEE Ot I25.10 ATHSCL HEART DISEASE OF [place] CORONARY 03/05/2016 AQUILINO MUKHERJEE Ot I34.0 NONRHEUMATIC MITRAL (VALVE) INSUFFICIENC 03/05/2016 AQUILINO MUKHERJEE Ot I65.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 03/05/2016 JOVANA BANDA MD Ot E11.9 TYPE 2 DIABETES MELLITUS WITHOUT COMPLIC 03/05/2016 JOVANA BANDA MD, Ot M53.3 SACROCOCCYGEAL DISORDERS, NOT ELSEWHERE 03/05/2016 JOVANA BANDA MD Ot Z79.4 VERIFIER OPERATOR (CURRENT) USE OF INSULIN 03/17/2016 JOVANA BANDA MD, Ot E11.9 TYPE 2 DIABETES MELLITUS WITHOUT COMPLIC 03/17/2016 JOVANA BANDA MD, Ot M53.3 SACROCOCCYGEAL DISORDERS, NOT ELSEWHERE 03/17/2016 JOVANA BANDA MD, Ot Z79.4 CORRECTION (CURRENT) USE OF INSULIN 04/21/2016 SHALA SPENCER [...] 04/21/2016 SHALA DO KATHY K Ot Z79.4 CORRECTION (CURRENT) USE OF INSULIN 04/21/2016 SHALA DO KATHY K Ot Z79.84 CORRECTION (CURRENT) USE OF ORAL HYPOGLYC 04/21/2016 SHALA DO KATHY K Ot Z79.899 OTHER CORRECTION (CURRENT) DRUG THERAPY 04/21/2016 SHALAAnup SPENCER KATHY K Ot Z95.5 PRESENCE OF CORONARY ANGIOPLASTY IMPLANT 05/07/2016 NAMITA ANDRADE Ot E11.9 TYPE 2 DIABETES MELLITUS WITHOUT COMPLIC 05/07/2016 NAMITA ANDRADE Ot I10 ESSENTIAL (PRIMARY) HYPERTENSION 05/07/2016 NAMITA ANDRADE Ot I25.10 ATHSCL HEART DISEASE OF [place] CORONARY 05/07/2016 NAMITA ANDRADE Ot I70.0 ATHEROSCLEROSIS OF [place] 05/07/2016 NAMITA ANDRADE Ot K56.41 FECAL IMPACTION 05/07/2016 NAMITA ANDRADE Ot K59.00 CONSTIPATION, UNSPECIFIED 05/07/2016 NAMITA ANDRADE Ot K76.0 FATTY (CHANGE OF) LIVER, NOT ELSEWHERE C 05/07/2016 NAMITA ANDRADE Ot Z79.4 CORRECTION (CURRENT) USE OF INSULIN 05/07/2016 NAMITA ANDRADE Ot Z79.84 VERIFIER OPERATOR (CURRENT) USE OF ORAL HYPOGLYC 05/07/2016 NAMITA ANDRADE Ot Z79.899 OTHER CORRECTION (CURRENT) DRUG THERAPY 05/07/2016 NAMITA ANDRADE Ot Z95.5 PRESENCE OF CORONARY ANGIOPLASTY IMPLANT 05/08/2016 BRIGITTE WOLF APRN Ot E11.9 TYPE 2 DIABETES MELLITUS WITHOUT COMPLIC 05/08/2016 BRIGITTE WOLF APRN Ot I10 ESSENTIAL (PRIMARY) HYPERTENSION 05/08/2016 BRIGITTE WOLF APRN Ot I25.10 ATHSCL HEART DISEASE OF [place] CORONARY 05/08/2016 BRIGITTE WOLF APRN Ot K56.41 FECAL IMPACTION 05/08/2016 BRIGITTE WOLF APRN Ot Z79.4 VERIFIER OPERATOR (CURRENT) USE OF INSULIN 05/08/2016 BRIGITTE WOLF APRN Ot Z79.899 OTHER CORRECTION (CURRENT) DRUG THERAPY 05/10/2016 BRIGITTE WOLF APRN Ot E11.9 TYPE 2 DIABETES MELLITUS WITHOUT COMPLIC 05/10/2016 BRIGITTE WOLF APRN Ot I10 ESSENTIAL (PRIMARY) HYPERTENSION 05/10/2016 BRIGITTE WOLF APRN Ot I25.10 ATHSCL HEART DISEASE OF [place] CORONARY 05/10/2016 BRIGITTE WOLF APRN Ot K56.41 FECAL IMPACTION 05/10/2016 BRIGITTE WOLF APRN Ot Z79.4 VERIFIER OPERATOR (CURRENT) USE OF INSULIN 05/10/2016 BRIGITTE WOLF APRN Ot Z79.899 OTHER CORRECTION (CURRENT) DRUG THERAPY 08/31/2016 Ot 593.9 RENAL URETERAL DIS NOS 08/31/2016 Ot 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 08/31/2016 Ot V58.69 OTH MED,LT, CURRENT USE 08/31/2016 Ot V72.84 EXAM PRE- OPERATIVE NOS 08/31/2016 DARLINE TRAYLOR ACCIDENT EXAMINER Ot 786.05 SHORTNESS OF BREATH 08/31/2016 DARLINE TRAYLOR ACCIDENT EXAMINER Ot 786.05 SHORTNESS OF BREATH 08/31/2016 DAMARIS [...] V72.31 ROUTINE GYNECOLOGICAL EXAMINATION 08/31/2016 YARELIS KEATING TOUCH UP EDGER Ot V76.12 OTH SCREEN MAMMO-MALIGN NEOPLASM OF [place] 08/31/2016 YARELIS KEATING TOUCH UP EDGER Ot V76.51 SCREEN MAL NEOP-COLON 08/31/2016 RISHABHSHERONYARELIS Laila TOUCH UP EDGER Ot V82.81 SCREENING FOR OSTEOPOROSIS 08/31/2016 AQUILINO [...] MUKHERJEE Ot I25.10 ATHSCL HEART DISEASE OF [place] CORONARY 08/31/2016 AQUILINO MUKHERJEE Ot E78.2 MIXED HYPERLIPIDEMIA 08/31/2016 AQUILINO MUKHERJEE Ot I25.10 ATHSCL HEART DISEASE OF [place] CORONARY 08/31/2016 AQUILINO MUKHERJEE Ot I34.0 NONRHEUMATIC MITRAL (VALVE) INSUFFICIENC 08/31/2016 AQUILINO MUKHERJEE Ot I65.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 10/19/2016 AQUILINO MUKHERJEE Ot E78.2 MIXED HYPERLIPIDEMIA 10/19/2016 AQUILINO MUKHERJEE Ot I25.10 ATHSCL HEART DISEASE OF [place] CORONARY 10/19/2016 Ot 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 10/19/2016 Ot V58.69 OTH MED,LT, CURRENT USE 10/19/2016 Ot V72.84 EXAM PRE- OPERATIVE NOS 10/19/2016 DARLINE TRAYLOR ACCIDENT EXAMINER Ot 786.05 SHORTNESS OF BREATH 10/19/2016 DARLINE TRAYLOR ACCIDENT EXAMINER Ot 786.05 SHORTNESS OF BREATH 10/19/2016 DAMARIS [...] V76.51 SCREEN MAL NEOP-COLON 10/19/2016 YARELIS KEATING TOUCH UP EDGER Ot V82.81 SCREENING FOR OSTEOPOROSIS 10/19/2016 AQUILINO [...] MUKHERJEE Ot I25.10 ATHSCL HEART DISEASE OF [place] CORONARY 10/19/2016 AQUILINO MUKHERJEE Ot E78.2 MIXED HYPERLIPIDEMIA 10/19/2016 AQUILINO MUKHERJEE Ot I25.10 ATHSCL HEART DISEASE OF [place] CORONARY 10/19/2016 AQUILINO MUKHERJEE Ot I34.0 NONRHEUMATIC MITRAL (VALVE) INSUFFICIENC 10/19/2016 AQUILINO MUKHERJEE Ot I65.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 10/19/2016 AQUILINO MUKHERJEE Ot E78.2 MIXED HYPERLIPIDEMIA 10/19/2016 AQUILINO MUKHERJEE Ot I25.10 ATHSCL HEART DISEASE OF [place] CORONARY 10/29/2016 Ot 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 10/29/2016 Ot V58.69 OTH MED,LT, CURRENT [...] V16.0 FAMILY HX-GI MALIGNANCY 10/29/2016 YARELIS KEATING TOUCH UP EDGER Ot V72.31 ROUTINE GYNECOLOGICAL EXAMINATION 10/29/2016 YARELIS KEATING APRN Ot V76.12 OTH SCREEN MAMMO-MALIGN NEOPLASM OF [place] 10/29/2016 YARELIS KEATING TOUCH UP EDGER Ot V76.51 SCREEN MAL NEOP-COLON 10/29/2016 YARELIS KEATING TOUCH UP EDGER Ot V82.81 SCREENING FOR OSTEOPOROSIS 10/29/2016 AQUILINO [...] MUKHERJEE Ot I25.10 ATHSCL HEART DISEASE OF [place] CORONARY 10/29/2016 AQUILINO MUKHERJEE Ot E78.2 MIXED HYPERLIPIDEMIA 10/29/2016 AQUILINO MUKHERJEE Ot I25.10 ATHSCL HEART DISEASE OF [place] CORONARY 10/29/2016 AQUILINO MUKHERJEE Ot I34.0 NONRHEUMATIC MITRAL (VALVE) INSUFFICIENC 10/29/2016 AQUILINO MUKHERJEE Ot I65.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 10/29/2016 AQUILINO MUKHERJEE Ot E78.2 MIXED HYPERLIPIDEMIA 10/29/2016 AQUILINO MUKHERJEE Ot I25.10 ATHSCL HEART DISEASE OF [place] CORONARY 11/02/2016 AQUILINO MUKHERJEE Ot E78.2 MIXED HYPERLIPIDEMIA 11/02/2016 AQUILINO MUKHERJEE Ot I25.10 ATHSCL HEART DISEASE OF [place] CORONARY 11/12/2016 Ot 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 11/12/2016 Ot V58.69 OTH MED,LT, CURRENT [...] VESSEL, NATIV 11/12/2016 DAMARIS LUTHER [facility] Ot V58.69 OT MED,LT,CURRENT USE 11/12/2016 [...] MUKHERJEE Ot I25.10 ATHSCL HEART DISEASE OF [place] CORONARY 11/12/2016 AQUILINO MUKHERJEE Ot E78.2 MIXED HYPERLIPIDEMIA 11/12/2016 AQUILINO MUKHERJEE Ot I25.10 ATHSCL HEART DISEASE OF [place] CORONARY 11/12/2016 AQUILINO MUKHERJEE Ot I34.0 NONRHEUMATIC MITRAL (VALVE) INSUFFICIENC 11/12/2016 AQUILINO MUKHERJEE Ot I65.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 11/12/2016 AQUILINO MUKHERJEE Ot E78.2 MIXED HYPERLIPIDEMIA 11/12/2016 AQUILINO MUKHERJEE Ot I25.10 ATHSCL HEART DISEASE OF [place] CORONARY 11/16/2016 RADHIKA GARCIA Ot M19.011 PRIMARY OSTEOARTHRITIS, RIGHT SHOULDER 11/16/2016 RADHIKA GARCIA Ot M25.411 EFFUSION, RIGHT SHOULDER 11/16/2016 RADHIKA GARCIA Ot S46.811A STRAIN OF MUSC/FASC/TEND AT SHLDR/UP ARM 11/16/2016 RADHIKA GARCIA Ot X58.XXXA EXPOSURE TO OTHER SPECIFIED FACTORS, INI 11/16/2016 RADHIKA GARCIA Ot Y99.8 OTHER EXTERNAL CAUSE STATUS 11/16/2016 RADHIKA GARCIA Ot M19.011 PRIMARY OSTEOARTHRITIS, RIGHT SHOULDER 11/16/2016 RADHIKA GARCIA ACCIDENT EXAMINER Ot M25.411 EFFUSION, RIGHT SHOULDER 11/16/2016 RADHIKA GARCIA ACCIDENT EXAMINER Ot S46.811A STRAIN OF MUSC/FASC/TEND AT LDR/UP ARM 11/16/2016 RADHIKA GARCIA ACCIDENT EXAMINER Ot X58.XXXA EXPOSURE TO OTHER SPECIFIED FACTORS, INI 11/16/2016 RADHIKA GARCIA ACCIDENT EXAMINER Ot Y99.8 OTHER EXTERNAL CAUSE STATUS 12/06/2016 RADHIKA GARCIA ACCIDENT EXAMINER Ot M19.011 PRIMARY OSTEOARTHRITIS, RIGHT SHOULDER 12/06/2016 RADHIKA GARCIA ACCIDENT EXAMINER Ot M25.411 EFFUSION, RIGHT SHOULDER 12/06/2016 RADHIKA GARCIA ACCIDENT EXAMINER Ot S46.811A STRAIN OF MUSC/FASC/TEND AT LDR/ ARM 12/06/2016 RADHIKA GARCIA ACCIDENT EXAMINER Ot X58.XXXA EXPOSURE TO OTHER SPECIFIED FACTORS, INI 12/06/2016 RADHIKA GARCIA ACCIDENT EXAMINER Ot Y99.8 OTHER EXTERNAL CAUSE STATUS 12/07/2016 RADHIKA GARCIA ACCIDENT EXAMINER Ot M19.011 PRIMARY OSTEOARTHRITIS, RIGHT SHOULDER 12/07/2016 RADHIKA GARCIA ACCIDENT EXAMINER Ot M25.411 EFFUSION, RIGHT SHOULDER 12/07/2016 RADHIKA GARCIA ACCIDENT EXAMINER Ot S46.811A STRAIN OF MUSC/FASC/TEND AT LDR/ ARM 12/07/2016 RADHIKA GARCIA ACCIDENT EXAMINER Ot X58.XXXA EXPOSURE TO OTHER SPECIFIED FACTORS, INI 12/07/2016 RADHIKA GARCIA ACCIDENT EXAMINER Ot Y99.8 OTHER EXTERNAL CAUSE STATUS 01/05/2017 RADHIKA GARCIA ACCIDENT EXAMINER Ot M19.011 PRIMARY OSTEOARTHRITIS, RIGHT SHOULDER 01/05/2017 RADHIKA GARCIA ACCIDENT EXAMINER Ot M25.411 EFFUSION, RIGHT SHOULDER 01/05/2017 RADHIKA GARCIA ACCIDENT EXAMINER Ot S46.811A STRAIN OF MUSC/FASC/TEND AT LDR/ ARM 01/05/2017 RADHIKA GARCIA ACCIDENT EXAMINER Ot X58.XXXA EXPOSURE TO OTHER SPECIFIED FACTORS, INI 01/05/2017 RADHIKA GARCIA ACCIDENT EXAMINER Ot Y99.8 OTHER EXTERNAL CAUSE STATUS 01/17/2017 RADHIKA GARCIA ACCIDENT EXAMINER Ot M19.011 PRIMARY OSTEOARTHRITIS, RIGHT SHOULDER 01/17/2017 [...] MUKHERJEE Ot I25.10 ATHSCL HEART DISEASE OF [place] CORONARY 05/04/2017 AQUILINO MUKHERJEE Ot I65.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 05/16/2017 AQUILINO MUKHERJEE Ot E11.9 TYPE 2 DIABETES MELLITUS WITHOUT COMPLIC 05/16/2017 AQUILINO MUKHERJEE Ot I10 ESSENTIAL (PRIMARY) HYPERTENSION 05/16/2017 AQUILINO MUKHERJEE Ot I25.10 ATHSCL HEART DISEASE OF [place] CORONARY 05/16/2017 AQUILINO MUKHERJEE Ot I65.23 OCCLUSION [...] MUKHERJEE Ot I25.10 ATHSCL HEART DISEASE OF [place] CORONARY 06/08/2017 AQUILINO MUKHERJEE Ot I31.3 PERICARDIAL [...] MUKHERJEE Ot I25.10 ATHSCL HEART DISEASE OF [place] CORONARY 06/15/2017 ARELI DO RABIA F Ot [...] MUKHERJEE Ot I25.10 ATHSCL HEART DISEASE OF [place] CORONARY 06/17/2017 AUQILINO MUKHERJEE Ot I31.3 PERICARDIAL EFFUSION (NONINFLAMMATORY) 06/17/2017 [...] MUKHERJEE Ot I25.10 ATHSCL HEART DISEASE OF [place] CORONARY 08/01/2017 ARELI DORABIA Ot M47.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, CE 08/01/2017 RABIA SINGLETON DO Ot M48.02 SPINAL STENOSIS, CERVICAL REGION 08/01/2017 RABIA SINGLETON DO Ot M50.10 CERVICAL DISC DISORDER W RADICULOPATHY, 12/04/2017 EDNA LUTHER, DAI Sinclair Ot E11.42 TYPE 2 DIABETES MELLITUS WITH DIABETIC P 12/04/2017 EDNA LUTHER, DAI Sinclair Ot E78.00 PURE HYPERCHOLESTEROLEMIA, UNSPECIFIED 12/04/2017 EDNA LUTHER, DAI Sinclair Ot F32.9 MAJOR DEPRESSIVE DISORDER, SINGLE EPISOD 12/04/2017 EDNA LUTHER, DAI Sinclair Ot F41.9 ANXIETY DISORDER, UNSPECIFIED 12/04/2017 EDNA LUTHER, DAI Sinclair Ot G43.909 MIGRAINE, UNSP, NOT INTRACTABLE, WITHOUT 12/04/2017 EDNA LUTHER, DAI Sinclair Ot G47.30 SLEEP APNEA, UNSPECIFIED 12/04/2017 EDNA LUTHER, DAI Sinclair Ot I10 ESSENTIAL (PRIMARY) HYPERTENSION 12/04/2017 EDNA LUTHER, DAI Sinclair Ot I25.10 ATHSCL HEART DISEASE OF [place] CORONARY 12/04/2017 EDNA LUTHER, DAI Sinclair Ot I25.2 OLD MYOCARDIAL INFARCTION 12/04/2017 EDNA LUTHER, DAI Sinclair Ot J44.9 CHRONIC OBSTRUCTIVE PULMONARY DISEASE, U 12/04/2017 EDNA LUTHER, DAI Sinclair Ot K21.9 GASTRO-ESOPHAGEAL REFLUX DISEASE WITHOUT 12/04/2017 EDNA LUTHER, DAI Sinclair Ot M25.511 PAIN IN RIGHT SHOULDER 12/04/2017 EDNA LUTHER, DAI Sinclair Ot S01.01XA LACERATION WITHOUT FOREIGN BODY OF SCALP 12/04/2017 EDNA LUTHER, DAI Sinclair Ot S09.90XA UNSPECIFIED INJURY OF HEAD, INITIAL ENCO 12/04/2017 EDNA LUTHER, DAI Sinclair Ot W18.30XA FALL ON SAME LEVEL, UNSPECIFIED, INITIAL 12/04/2017 EDNA LUTHER, DAI Sinclair Ot Z79.4 CORRECTION (CURRENT) USE OF INSULIN 12/04/2017 EDNA LUTHER, DAI Sinclair Ot Z80.0 FAMILY HISTORY OF MALIGNANT NEOPLASM OF 12/04/2017 EDNA LUTHER, DAI Sinclair Ot Z82.49 FAMILY HX OF ISCHEM HEART DIS AND OTH DI 12/04/2017 EDNA LUTHER, DAI Sinclair Ot Z87.19 PERSONAL HISTORY OF OTHER DISEASES OF TH 12/04/2017 EDNA LUTHER, DAI Sinclair Ot Z88.5 ALLERGY STATUS TO NARCOTIC AGENT STATUS 12/04/2017 EDNA LUTHER, DAI Sinclair Ot Z88.6 ALLERGY STATUS TO ANALGESIC AGENT STATUS 12/04/2017 EDNA LUTHER, DAI Sinclair Ot Z90.710 ACQUIRED ABSENCE OF BOTH CERVIX AND UTER 12/04/2017 EDNA LUTHER, DAI Sinclair Ot Z90.89 ACQUIRED ABSENCE OF OTHER ORGANS 12/04/2017 EDNA LUTHER, DAI Sinclair Ot Z95.5 PRESENCE OF CORONARY ANGIOPLASTY IMPLANT 12/06/2017 EDNA LUTHER, DAI Sinclair Ot E11.42 [...] Sinclair Ot I25.10 ATHSCL HEART DISEASE OF [place] CORONARY 12/06/2017 EDNA LUTHER, DAI Sinclair Ot I25.2 OLD MYOCARDIAL INFARCTION 12/06/2017 EDNA LUTHER, DAI Sinclair Ot J44.9 CHRONIC OBSTRUCTIVE PULMONARY DISEASE, U 12/06/2017 DAI BISHOP MD Ot K21.9 GASTRO-ESOPHAGEAL REFLUX DISEASE WITHOUT 12/06/2017 DAI BISHOP MD Ot M25.511 PAIN IN RIGHT SHOULDER 12/06/2017 DAI BISHOP MD Ot S01.01XA LACERATION WITHOUT FOREIGN BODY OF SCALP 12/06/2017 DAI BISHOP MD Ot S09.90XA UNSPECIFIED INJURY OF HEAD, INITIAL ENCO 12/06/2017 DAI BISHOP MD Ot W18.30XA FALL ON SAME LEVEL, UNSPECIFIED, INITIAL 12/06/2017 DAI BISHOP MD Ot Z79.4 CORRECTION (CURRENT) USE OF INSULIN 12/06/2017 DAI BISHOP [...] ACQUIRED ABSENCE OF OTHER ORGANS 12/06/2017 DAI BISHOP MD Ot Z95.5 PRESENCE OF CORONARY ANGIOPLASTY IMPLANT 12/14/2017 AQUILINO MUKHERJEE Ot E78.2 MIXED HYPERLIPIDEMIA 12/16/2017 SHALA SPENCER, KATHY K Ot S01.81XD LACERATION W/O FOREIGN BODY OF OTH PART 12/16/2017 SHALA , KATHY K Ot X58.XXXD EXPOSURE TO OTHER SPECIFIED FACTORS, SUB 12/16/2017 AQUILINO MUKHERJEE Ot E78.2 MIXED HYPERLIPIDEMIA 12/23/2017 AQUILINO MUKHERJEE Ot E78.2 MIXED HYPERLIPIDEMIA 03/31/2018 LESLYE LUTHER, IVELISSE Zuniga Ot Z01.818 ENCOUNTER FOR OTHER PREPROCEDURAL EXAMIN Procedures Code Description Performed By Performed On [...] CATHETERIZATION 05/10/2011 88.56 CORONAR ARTERIOGR-2 CATH 05/10/2011 84260 A1C (IN-HOUSE) 02/01/2012 75868 ROUTINE VENIPUNCTURE 02/09/2012 24965 CMP 02/09/2012 86382 LIPID PANEL 02/09/2012 8226313 GFR CALC (RESULT ONLY) 02/09/2012 23786 MICRO ALBUMIN-IN HOUSE 05/23/2012 32982 A1C (IN-HOUSE) 05/23/2012 70687 MICROALBUMIN 05/23/2012 85586 XRAY CERVICAL SPINE, 2 OR 3 VIEWS 05/30/2012 84400 XRAY LUMBAR SPINE 2 OR 3 VIEWS 05/30/2012 55157 NAIL REMOVAL PERMANENT ( PARTIAL OR COMPLETE) 06/09/2012 65510 ROUTINE VENIPUNCTURE 07/19/2012 73748 CMP 07/19/2012 02366 LIPID PANEL 07/19/2012 7802544 GFR CALC (RESULT ONLY) 07/19/2012 24733 MICRO ALBUMIN-IN HOUSE 01/22/2013 57681 A1C (IN-HOUSE) 01/22/2013 63046 MICROALBUMIN 01/23/2013 21369 A1C (IN-HOUSE) 05/23/2013 59331 ROUTINE VENIPUNCTURE 05/28/2013 73921 TSH 05/28/2013 81353 CBC 05/28/2013 01193 CULTURE STOOL 05/28/2013 64492 STOOL FOR O & P 05/28/2013 87530 STOOL FOR POLYS & LEUKOCYTES 05/28/2013 Cardiolog Kacie Harrington 05/28/2013 46698 CBC 05/28/2013 32202 CMP 05/28/2013 36638 LIPID PANEL 05/28/2013 5242678 GFR CALC (RESULT ONLY) 05/28/2013 98045 OXIMETRY 06/01/2013 02659 OXIMETRY 06/07/2013 18806 NUCLEAR STRESS TESTING 07/20/2013 38450 LIPID PANEL 07/20/2013 49070 LIVER PANEL (LFT) 07/20/2013 37762 US CAROTID DOPPLER 07/20/2013 60154 MAMMOGRAM, SCREENING 09/19/2013 52666 A1C (IN-HOUSE) 09/19/2013 06003 MICRO ALBUMIN-IN HOUSE 09/19/2013 60672 HEMOCCULT 10/03/2013 99515 HEMOCCULT 10/03/2013 23002 BONE MINERAL DENSITY, HEEL US (IN HOUSE) 10/10/2013 52728 ROUTINE VENIPUNCTURE 02/05/2014 42090 XRAY HIP RIGHT UNILATERAL MIN 2 VIEWS 02/05/2014 60819 MICRO ALBUMIN-IN HOUSE 02/05/2014 16160 A1C (IN-HOUSE) 02/05/2014 3636928 GFR CALC (RESULT ONLY) 02/05/2014 00895 CMP 02/05/2014 28177 LIPID PANEL 02/05/2014 OrthopRadhika Tim 02/18/2014 05404 A1C (IN-HOUSE) 06/20/2014 Results Test Result Range [...] Africn Am 106 mL/min/1.73 >59 BUN/Creatinine Ratio 11-26 Sodium, Serum 142 mmol/L 134-144 Potassium, [...] FOR INFLUENZA A AND B ANTIGENS BY [facility] PT panel in platelet poor plasma by [...] indirect bilirubin measurement (mass/volume) 0.2 mg/ dL NR Lipid 1996 panel - 05/03/17 11:31 Serum or plasma triglyceride measurement (mass/volume) 368 mg/dL <150 Serum or plasma cholesterol measurement (mass/volume) 231 mg/dL < 200 Serum or plasma cholesterol in HDL measurement (mass/volume) 41 mg/ dL 40-60 Cholesterol in LDL [mass/volume] in serum or plasma by direct assay 119 mg/dL 1-129 Serum or plasma cholesterol in VLDL measurement (mass/volume) 74 mg/ dL 5-40 CMP - 12/14/17 12:11 GLUCOSE 112 mg/dL 65-99 UREA NITROGEN (BUN) 18 mg/dL 7-25 CREATININE 0.91 mg/dL 0.50-0.99 eGFR NON-AFR. TUNISIAN 66 mL/min/1.73m2 > OR=60 eGFR 76 mL/min/1.73m2 > OR=60 BUN/CREATININE RATIO NOT APPLICABLE (calc) 6-22 SODIUM 142 mmol/L 135-146 POTASSIUM 4.5 mmol/L 3.5-5.3 CHLORIDE 102 mmol/L 98-110 CARBON DIOXIDE 27 mmol/L 20-32 CALCIUM 9.4 mg/dL 8.6-10.4 PROTEIN, TOTAL 7.5 g/dL 6.1-8.1 ALBUMIN 4.5 g/dL 3.6-5.1 GLOBULIN 3.0 g/dL (calc) 1.9-3.7 ALBUMIN/GLOBULIN RATIO 1.5 (calc) 1.0-2.5 BILIRUBIN, TOTAL 0.5 mg/dL 0.2-1.2 ALKALINE PHOSPHATASE 69 U/L 33-130 AST 21 U/L 10-35 ALT 21 U/L 6-29 Comprehensive metabolic panel - 12/14/17 13:47 Serum or plasma sodium measurement (moles/volume) 141 mmol/L 135-145 Serum or plasma potassium measurement (moles/volume) 4.3 mmol/L 3.6-5.0 Serum or plasma chloride measurement (moles/volume) 104 mmol/L 98-107 Carbon dioxide 24 mmol/L 21-32 Serum or plasma anion gap determination (moles/volume) 13 mmol/L 5-14 Serum or plasma urea nitrogen measurement (mass/volume) 19 mg/dL 7-18 Serum or plasma creatinine measurement (mass/volume) 1.07 mg/dL 0.60-1.30 Serum or plasma urea nitrogen/creatinine mass ratio 18 NRG Serum or plasma creatinine measurement with calculation of estimated glomerular filtration rate 51 NRG Serum or plasma glucose measurement (mass/volume) 130 mg/dL 70-105 Serum or plasma calcium measurement (mass/volume) 9.7 mg/dL 8.5-10.1 Serum or plasma total bilirubin measurement (mass/volume) 0.6 mg/dL 0.1-1.0 Serum or plasma alkaline phosphatase measurement (enzymatic activity/volume) 65 U/L 40-136 Serum or plasma aspartate aminotransferase measurement (enzymatic activity/ volume) 21 U/L 5-34 Serum or plasma alanine aminotransferase measurement (enzymatic activity/volume ) 27 U/L 0-55 Serum or plasma protein measurement (mass/volume) 8.0 g/dL 6.4-8.2 Serum or plasma albumin measurement (mass/volume) 4.6 g/dL 3.2-4.5 Lipid 1996 panel - 12/14/17 13:47 Serum or plasma triglyceride measurement (mass/volume) 265 mg/dL <150 Serum or plasma cholesterol measurement (mass/volume) 124 mg/dL < 200 Serum or plasma cholesterol in HDL measurement (mass/volume) 33 mg/ dL 40-60 Cholesterol in LDL [mass/volume] in serum or plasma by direct assay 50 mg/dL 1-129 Serum or plasma cholesterol in VLDL measurement (mass/volume) 53 mg/ dL 5-40 CULTURE, ANAEROBIC AND AEROBIC - 02/01/18 16:49 CULTURE, ANAEROBIC BACTERIA W/GRAM STAIN SEE NOTE NRG CULTURE, AEROBIC BACTERIA SEE NOTE NRG Encounters ACCT No. Visit Date/Time Discharge Status Pt. Type Provider Facility Loc./Unit Complaint [id number] 06/20/2014 14:05:00 06/20/2014 23:59:59 CLS Outpatient RADHIKA GARCIA APRN [id number] 04/12/2014 14:06:00 04/12/2014 23:59:59 CLS Outpatient JUDY DDSCLARIBEL [id number] 03/21/2014 13:33:00 03/21/2014 23:59:59 CLS Outpatient RADHIKA GARCIA APRN [id number] 02/05/2014 08:35:00 02/05/2014 23:59:59 CLS Outpatient YULY TOUCH UP EDGER JYOTSNA Sinclair [id number] 01/14/2014 13:47:00 01/14/2014 23:59:59 CLS Outpatient TAN DDSJOVANA [id number] 12/27/2013 09:53:00 12/27/2013 23:59:59 CLS Outpatient TAN DDS, JOVANA [id number] 12/18/2013 12:03:00 12/18/2013 23:59:59 CLS Outpatient TAN DDS, JOVANA [id number] 12/13/2013 18:33:00 12/13/2013 23:59:59 CLS Outpatient COSME RICO DO [id number] 10/10/2013 12:20:00 10/10/2013 23:59:59 CLS Outpatient SHERON KEATING APRNYOVANI Ulloa [id number] 10/03/2013 12:19:00 10/03/2013 23:59:59 CLS Outpatient TRISHA SPENCERCOSME [id number] 09/26/2013 13:24:00 09/26/2013 23:59:59 CLS Outpatient SHERON KEATING APRNYOVANI Ulloa [id number] 09/19/2013 09:02:00 09/19/2013 23:59:59 CLS Outpatient JYOTSNA EMERY APRN [id number] 09/19/2013 09:02:00 09/19/2013 23:59:59 CLS Outpatient YULY TOUCH UP EDGERJYOTSNA Gomez [id number] 07/20/2013 09:59:00 07/20/2013 23:59:59 CLS Outpatient TRISHA SPENCERCOSME [id number] 06/07/2013 12:22:00 06/07/2013 23:59:59 CLS Outpatient YULY TOUCH UP EDGERJYOTSNA Gomez [id number] 06/01/2013 13:30:00 06/01/2013 23:59:59 CLS Outpatient DOMINIQUE GARCIA APRN [id number] 05/28/2013 12:00:00 05/28/2013 23:59:59 CLS Outpatient JYOTSNA EMERY APRN [id number] 05/23/2013 13:14:00 05/23/2013 23:59:59 CLS Outpatient JYOTSNA EMERY APRN [id number] 04/25/2013 14:12:00 04/25/2013 23:59:59 CLS Outpatient JYOTSNA EMERY APRN [id number] 01/22/2013 11:01:00 01/22/2013 23:59:59 CLS Outpatient COSME RICO DO [id number] 12/27/2012 11:54:00 12/27/2012 23:59:59 CLS Outpatient JEREMY BANDA DDS [id number] 12/04/2012 11:58:00 12/04/2012 23:59:59 CLS Outpatient JEREMY BANDA DDS [id number] 06/07/2012 15:12:00 06/07/2012 23:59:59 CLS Outpatient JYOTSNA EMERY APRN [id number] 05/23/2012 13:45:00 05/23/2012 23:59:59 CLS Outpatient JYOTSNA EMERY APRN [id number] 02/09/2012 08:05:00 02/09/2012 23:59:59 CLS Outpatient JYOTSNA EMERY APRN [id number] 02/01/2012 13:00:00 02/01/2012 23:59:59 CLS Outpatient JYOTSNA EMERY APRN [id number] 11/08/2012 13:58:00 Document Registration [id number] 07/19/2012 15:00:00 Document Registration [id number] 03/30/2018 14:25:00 03/30/2018 15:02:00 DIS Outpatient IVELISSE GAVIN MD [facility] PREOP EXC. SEBACEOUS CYST NECK [id number] 12/14/2017 13:37:00 12/14/2017 23:59:59 CLS Outpatient AQUILINO MUKHERJEE [facility] LAB E78.2 [id number] 12/14/2017 12:24:00 12/14/2017 13:35:00 DIS Outpatient KATHY LAST DO [facility] ER STAPLE REMOVAL [id number] 12/04/2017 09:42:00 12/04/2017 11:20:00 DIS Emergency EDNA LUTHER, DAI Sinclair [facility] ER FALL/HEAD LAC [id number] 06/13/2017 07:53:00 06/13/2017 23:59:59 CLS Outpatient AQUILINO MUKHERJEE [facility] CARD I25.10 CAD [id number] 06/07/2017 13:38:00 06/07/2017 23:59:59 CLS Outpatient AQUILINO MUKHERJEE [facility] CARD I25.10 CAD [id number] 06/02/2017 09:18:00 06/02/2017 23:59:59 CLS Outpatient RABIA SINGLETON DO [facility] RAD RIGHT SIDE RADICULOPATHY [id number] 05/03/2017 11:14:00 05/03/2017 23:59:59 CLS Outpatient AQUILINO MUKHERJEE [facility] LAB I25.10, I65.23, E11.9, I10 [id number] 11/12/2016 10:50:00 11/12/2016 23:59:59 CLS Outpatient RADHIKA GARCIA [facility] RAD ROTATOR CUFF SYNDROME M75.101 [id number] 10/15/2016 11:55:00 10/15/2016 23:59:59 CLS Outpatient AQUILINO MUKHERJEE [facility] LAB I25.10 E78.2 [id number] 05/08/2016 13:31:00 05/08/2016 15:56:00 DIS Emergency BRIGITTE WOLF APRN [facility] ER BOWEL IMPACTION [id number] 05/07/2016 16:50:00 05/07/2016 20:47:00 DIS Emergency NAMITA ANDRADE [facility] ER LOWER R QUAD PAIN [id number] 04/21/2016 08:45:00 04/21/2016 23:59:59 CLS Preadmit DEFFENBAGERARD OLMEDO DO [facility] RAD ABD PAIN [id number] 04/20/2016 20:24:00 04/21/2016 00:20:00 DIS Emergency KATHY LAST DO [facility] ER HEADACHE,NAUSEA,VOMITING [id number] 03/05/2016 09:44:00 03/05/2016 11:12:00 DIS Outpatient JOVANA BANDA MD [facility] CARD SACROCOCCYGEAL DISORDER [id number] 01/12/2016 19:55:00 01/13/2016 06:20:00 DIS Outpatient JYOTSNA EMERY [facility] SLEEP SNORING, OBSTRUCTIVE SLEEP APNEA [id number] 08/27/2015 11:24:00 08/27/2015 23:59:59 CLS Outpatient AQUILINO MUKHERJEE [facility] CARD CAD,DANIEL,HLP, MR [id number] 08/26/2015 10:31:00 08/26/2015 23:59:59 CLS Outpatient AQUILINO MUKHERJEE [facility] CARD CAD,DANIEL,HLP, MR [id number] 03/18/2015 09:03:00 03/18/2015 23:59:59 CLS Outpatient IVELISSE GAVIN MD [facility] CARD GASTROPARESIS [id number] 03/17/2015 14:11:00 03/17/2015 17:25:00 DIS Outpatient IVELISSE GAVIN MD [facility] SDC SCREENING; FAMILY HX [id number] 03/12/2015 05:34:00 03/12/2015 23:59:59 CLS Outpatient IVELISSE GAVIN MD [facility] PREOP SCREENING; FAMILY HX [id number] 03/10/2015 08:41:00 03/10/2015 11:40:00 DIS Outpatient IVELISSE GAVIN MD [facility] SDC DYSPHAGIA;BENJIE [id number] 03/05/2015 05:57:00 03/05/2015 23:59:59 CLS Outpatient IVELISSE GAVIN MD [facility] PREOP DYSPHAGIA;BENJIE [id number] 11/05/2014 11:20:00 11/05/2014 23:59:59 CLS Outpatient AQUILINO MUKHERJEE [facility] LAB CAD,CAROTID ARTERY TENOSIS,HTN [id number] 09/22/2014 02:18:00 09/22/2014 04:14:00 DIS Emergency KATHY LAST DO [facility] ER VOMITING,DIARRHEA [id number] 10/11/2013 01:15:00 10/11/2013 20:15:00 DIS Outpatient KACIE HARRINGTON MD [facility] CATH CHEST PAIN [id number] 10/03/2013 11:37:00 10/03/2013 23:59:59 CLS Outpatient YARELIS KEATING APRN [facility] RAD SCREENING [id number] 08/01/2013 08:12:00 08/01/2013 23:59:59 CLS Outpatient AQUILINO MUKHERJEE [facility] CARD CAD,HTN,HLP, CAROTID BRUIT [id number] 07/26/2013 09:37:00 07/26/2013 23:59:59 CLS Outpatient AQUILINO MUKHERJEE [facility] RAD CAROTID BRUIT [id number] 04/19/2013 17:07:00 04/19/2013 18:35:00 DIS Emergency FABY PULIDO MD [facility] ER MULTIPLE COMPLAINTS [id number] 12/13/2012 09:39:00 12/13/2012 23:59:59 CLS Outpatient JED OCAMPO MD, FACC, FACP CCDS [facility] LAB HYPERLIPADEMIA [id number] 12/04/2012 15:59:00 12/04/2012 23:59:59 CLS Outpatient JED OCAMPO MD, FACC FACP CCDS [facility] CARD CAD [id number] 09/15/2012 08:32:00 09/15/2012 21:20:00 DIS Outpatient JED OCAMPO MD, FACC FACP CCDS [facility] CATH CAD, HYPERLIPIDEMIA,SOB,FATIGUE,ABN STRESS TEST [id number] 09/08/2012 07:09:00 09/08/2012 23:59:59 CLS Outpatient DARLINE TRAYLORP [facility] RAD SOB [id number] 09/06/2012 08:12:00 09/06/2012 23:59:59 CLS Outpatient DARLINE TRAYLOR ACCIDENT EXAMINER [facility] RT SOB [id number] 03/31/2018 10:31:00 ACT Outpatient LESLYE LUTHER, IVEILSSE Zuniga [facility] SDC INFECTED SEBACEOUS CYST [id number] 09/22/2014 04:21:00 Document Registration [id number] 09/22/2014 04:21:00 Document Registration [id number] 09/22/2014 04:21:00 Document Registration [id number] 09/22/2014 04:21:00 Document Registration [id number] 09/22/2014 04:21:00 Document Registration [id number] 09/22/2014 04:21:00 Document Registration [id number] 01/24/2012 12:24:00 Document Registration [id number] 12/23/2011 20:11:00 Document Registration [id number] 11/22/2011 07:36:00 Document Registration [id number] 08/17/2011 00:45:00 Document Registration [id number] 05/25/2011 12:27:00 Document Registration [id number] 03/22/2011 06:53:00 Document Registration [id number] 02/12/2011 12:00:00 Document Registration [id number] 01/17/2011 12:05:00 Document Registration [id number] 12/29/2010 15:40:00 Document Registration [id number] 12/23/2010 00:35:00 Document Registration [id number] 11/06/2014 05:02:05 ACT Document Registration [id number] 04/20/2016 10:09:00 Document Registration [id number] 04/30/2016 11:08:00 Document Registration [id number] 03/27/2018 11:40:00 03/27/2018 23:59:59 CLS Outpatient JYOTSNA EMERY APRN [facility] [place] [id number] 02/01/2018 11:40:00 Document Registration [id number] 12/14/2017 12:00:00 Document Registration [id number] 04/20/2016 11:07:00 Document Registration
[2018-03-31] MEDS ORDERED: PHENYLEPHRINE 100 MCG/ML 10 ML (ANESTHESIA) SYR ONE (11:44)
[2018-03-31] MEDS ORDERED: ANCEF 2 GM/50 ML PRE-MIXED IVPB IV ONE (11:45)
[2018-03-31] MEDS ORDERED: ceFAZolin 2 GM IV Premixed 50 ML IV ONE (11:45)
[2018-03-31 11:51] VITALS: BP 122/74
--- NOTE | 2018-03-31 11:51 | Operative Report ---
Operative Report Date of Procedure/Surgery Mar 31, 2018 Surgeon (s) IVELISSE GAVIN MD Research Psychologist (s): N/A Post-Operative Diagnosis same Procedure Performed excision with primary closure Description of Procedure Anesthesia Type: General Estimated blood loss (mL): minimal Specimen(s) collected/removed sebaceous cyst Description of the Procedure Indication for the procedure: This lady presented with a long-standing sebaceous cyst over the left side of her neck with the recent evidence of infection. Following oral antibiotics, she was offered formal excision under general anesthetic. Informed consent was obtained after reviewing the operative details and complications of wound infection and the potential for recurrence of the cyst. Increased risk of bleeding and hematoma formation due to aspirin therapy was also highlighted. Description of the procedure: She was placed supine on the operative table and general anesthesia induced. Ancef was administered intravenously as prophylaxis against wound infection. Her neck was prepared and draped in the usual sterile manner. An elliptical incision about 8 cm in length by 4 cm in width was made and the cyst excised intact. Hemostasis was achieved using cautery and the incision closed using 3- 0 Vicryl for the subcutaneous tissue and 4-0 Vicryl for skin, in a subcuticular fashion. 0.5 percent Marcaine with epinephrine was infiltrated along the incision at the end of the operation. She tolerated the procedure well, was extubated in the operating room and taken to the recovery room in a stable condition. Findings of the Procedure See op report Allergies and Home Medications Allergies Coded Allergies: NSAIDS (Non-Steroidal Anti-Inflamma (Verified Allergy, Unknown, 03/30/18) codeine (Verified Allergy, Unknown, 03/30/18) Home Medications Aspirin 81 Mg Tab.chew, 81 MG PO DAILY, (Reported) Atorvastatin Calcium 40 Mg Tablet, 40 MG PO HS, (Reported) Buspirone HCl 5 Mg Tablet, 10 MG PO BID, (Reported) Buspirone HCl 5 Mg Tablet, 20 MG PO HS, (Reported) Dapagliflozin Propanediol 5 Mg Tablet, 5 MG PO DAILY, (Reported) Diclofenac Sodium 100 Gm Gel..gram., 100 GM TP TID, (Reported) Fluoxetine HCl 20 Mg Capsule, 20 MG PO DAILY, (Reported) Gabapentin 400 Mg Capsule, 800 MG PO TID, (Reported) Insulin Aspart 300 Units/3 Ml Solution, 30 UNITS SQ AC, (Reported) Insulin Determir 1,000 Units/10 Ml Soln, 65 UNITS SQ BID, (Reported) Lipase/Protease/Amylase 1 Each Capsule.dr, 1 EACH PO AC, (Reported) Liraglutide 0.6 Mg/0.1 Ml Pen.injctr, 1.8 MG SQ DAILY, (Reported) Metformin HCl 500 Mg Tablet, 1,000 MG PO BID, (Reported) Metoprolol Tartrate 50 Mg Tablet, 50 MG PO BID, (Reported) Oxybutynin Chloride 5 Mg Tab.er.24, 5 MG PO BID, (Reported) Pantoprazole Sodium 40 Mg Tablet.dr, 40 MG PO DAILY, (Reported) Quinapril HCl 20 Mg Tablet, 20 MG PO DAILY, (Reported) Venlafaxine HCl 150 Mg Cap.er.24h, 150 MG PO DAILY, (Reported) Patient Home Medication List Home Medication List Reviewed: Yes IVELISSE GAVIN MD Mar 31, 2018 11:51
[2018-03-31] MEDS ORDERED: TRAM50TA2 PO (11:54)
--- NOTE | 2018-03-31 11:55 | Discharge Inst-Simple/Standard ---
Discharge Inst-Standard Discharge Medications New, Converted or Re-Newed RX: RX on Chart Patient Instructions/Follow Up Plan of Care/Instructions/FU: dressings off in 48 hours. Steri-Strips to stay. Follow-up in 2 weeks. May shower Activity as Tolerated: Yes Discharge Diet: ADA IVELISSE Unger MD Mar 31, 2018 11:55
[2018-03-31] MEDS ORDERED: MEPERIDINE (DEMEROL) INJ 50 MG/ML IVP ONE (12:15)
[2018-03-31] MEDS ORDERED: morphine INJ 10 MG/ML 1ML (SYR OR VIAL) IVP ONE (12:15)
[2018-03-31] MEDS ORDERED: ONDANSETRON 4 MG/2 ML (SDV) Z0FRAN IVP PRN (12:15)
[2018-03-31 13:00] VITALS: BP 111/72
[2018-03-31 13:30] VITALS: BP 111/67
--- NOTE | 2018-03-31 13:46 | Anesthesia-General Post-Op ---
General Patient Condition Mental Status/LOC: Same as Preop Cardiovascular: Satisfactory Nausea/Vomiting: Absent Respiratory: Satisfactory Pain: Controlled Complications: Absent Post Op Complications Complications None Follow Up Care/Instructions Patient Instructions None needed. Anesthesia/Patient Condition Patient Condition Patient is doing well, no complaints, stable vital signs, no apparent adverse anesthesia problems. No complications reported per nursing. RADHIKA CAR CRNA Mar 31, 2018 13:46
[2018-03-31 14:00] VITALS: BP 110/61
[2018-03-31 14:10] VITALS: BP 110/61
== END 2018-03-31 14:10 | disposition home or self-care (01) ==
LOC: SDC 10:31
PROVIDERS: ATTEND Surgery
DX: L72.0 Epidermal cyst (principal); L02.11 Cutaneous abscess of neck; E11.9 Type 2 diabetes mellitus without complications; I25.10 Atherosclerotic heart disease of native coronary artery without angina pectoris; G47.33 Obstructive sleep apnea (adult) (pediatric); K21.9 Gastro-esophageal reflux disease without esophagitis; Z79.4 Long term (current) use of insulin; Z79.82 Long term (current) use of aspirin; Z79.899 Other long term (current) drug therapy
CPT/HCPCS: 82962; 87081

== ENCOUNTER → 2018-06-21 | Outpatient (CLI) | payer MEDICARE ==
--- NOTE | 2018-06-21 14:30 | Diagnostic Imaging Report ---
PROCEDURE: CT cervical spine without contrast. TECHNIQUE: Multiple contiguous axial images were obtained through the cervical spine without the use of intravenous contrast. Sagittal and coronal reformations were then performed. Auto Exposure Controls were utilized during the CT exam to meet ALARA standards for radiation dose reduction. INDICATION: Neck pain, right arm pain, history of fusion. COMPARISON: Exam compared to 12/04/2017. FINDINGS: C4, C5, and C6 ACDF is redemonstrated. At the C4-C5 level, there is incorporation of the interbody device into the superior greater than inferior endplates. At the C5-C6 level, an interbody device appears incorporating into the adjacent inferior endplate at C5 and shows questionable early incorporation into the superior endplate at C6. There are no abnormal lucencies adjacent to the intact screws. The metallic plate is apposed and abuts the anterior vertebral body cortices. There were no findings felt to suggest evidence for pseudoarthrosis and failure. Chronic mild T1 superior endplate concavity is stable. The cervical body heights are maintained. The alignment across, above, and below the fusion is stable and anatomic and there is no significant spinal canal stenosis. Endplate osteophytes and uncovertebral joint spurring and hypertrophy result in a moderate degree of right-sided C5-C6 foraminal stenosis, unchanged. Left foramen is patent. IMPRESSION: Further incorporation of the interbody fusion devices appears more solid at C4-C5 and at the C5-C6 level but there were no findings suggesting pseudoarthrosis. No hardware loosening or displacement. The alignment is anatomic. There is no substantial canal stenosis. Some chronic right bony foraminal stenosis at the C5-C6 level, stable. Dictated by: Dictated on workstation # [id number]
== END ==
LOC: RAD 12:45
PROVIDERS: ATTEND Orthopaedic Surgery Orthopaedic Trauma
DX: Z47.89 Encounter for other orthopedic aftercare (principal); M48.02 Spinal stenosis, cervical region; Z98.1 Arthrodesis status
CPT/HCPCS: 72125

== ENCOUNTER 2018-08-05 14:42 | Emergency (ER) | payer MEDICARE ==
[~2018-08-05] VITALS: Ht 167.6 cm; Wt 82.6 kg
[2018-08-05] MEDS ORDERED: MECLIZINE 25 MG (ANTIVERT) TAB PO ONE (15:00)
--- NOTE | 2018-08-05 15:02 | ED General ---
General Chief Complaint: Dizziness/Syncope Stated Complaint: DIZZY - SENT FROM Source of Information: Patient Exam Limitations: No Limitations History of Present Illness Date Seen by Provider: August 05, 2018 Time Seen by Provider: 15:00 Initial Comments 67-year-old female presents with dizziness. Patient reports it started about 10 AM this morning. She reports the dizziness is with head movement. It improves when she sits still. She has no hearing loss. No ringing of her years. No nausea or vomiting. No focal weakness. She denies any chest pain, shortness of breath, fever or chills. Allergies and Home Medications Allergies Coded Allergies: NSAIDS (Non-Steroidal Anti-Inflamma (Verified Allergy, Unknown, 03/30/18) codeine (Verified Allergy, Unknown, 03/30/18) Uncoded Allergies: PENICILLIN (Allergy, Unknown, NAUSEA, 08/05/18) Home Medications Aspirin 81 Mg Tab.chew, 81 MG PO DAILY, (Reported) Atorvastatin Calcium 40 Mg Tablet, 40 MG PO HS, (Reported) Buspirone HCl 5 Mg Tablet, 10 MG PO BID, (Reported) Buspirone HCl 5 Mg Tablet, 20 MG PO HS, (Reported) Dapagliflozin Propanediol 5 Mg Tablet, 5 MG PO DAILY, (Reported) Diclofenac Sodium 100 Gm Gel..gram., 100 GM TP TID, (Reported) Fluoxetine HCl 20 Mg Capsule, 20 MG PO DAILY, (Reported) Gabapentin 400 Mg Capsule, 800 MG PO TID, (Reported) Insulin Aspart 300 Units/3 Ml Solution, 30 UNITS SQ AC, (Reported) Insulin Determir 1,000 Units/10 Ml Soln, 65 UNITS SQ BID, (Reported) Lipase/Protease/Amylase 1 Each Capsule.dr, 1 EACH PO AC, (Reported) Liraglutide 0.6 Mg/0.1 Ml Pen.injctr, 1.8 MG SQ DAILY, (Reported) Metformin HCl 500 Mg Tablet, 1,000 MG PO BID, (Reported) Metoprolol Tartrate 50 Mg Tablet, 50 MG PO BID, (Reported) Oxybutynin Chloride 5 Mg Tab.er.24, 5 MG PO BID, (Reported) Pantoprazole Sodium 40 Mg Tablet.dr, 40 MG PO DAILY, (Reported) Quinapril HCl 20 Mg Tablet, 20 MG PO DAILY, (Reported) Tramadol HCl 50 Mg Tablet, 50 MG PO Q12H PRN for PAIN-MILD TO MODERATE Prescribed by: IVELISSE GAVIN on 03/31/18 1154 Venlafaxine HCl 150 Mg Cap.er.24h, 150 MG PO DAILY, (Reported) Patient Home Medication List Home Medication List Reviewed: Yes Review of Systems Review of Systems Constitutional: No chills, No diaphoresis; dizziness; No fever EENTM: No hearing loss, No ear pain, No eye pain Respiratory: No cough Cardiovascular: No chest pain Gastrointestinal: No abdominal pain, No nausea, No vomiting Musculoskeletal: no symptoms reported Skin: no symptoms reported Psychiatric/Neurological: No Symptoms Reported Past Azvfesv-Wahgcp-Blhduf Hx Past Med/Social Hx: Reviewed Nursing Past Med/Soc Hx Patient Social History 2nd Hand Smoke Exposure: No Recent Hopitalizations: No Immunizations Up To Date Date of Pneumonia Vaccine: Dec 19, 2017 Date of Influenza Vaccine: Dec 19, 2017 Seasonal Allergies Seasonal Allergies: No Past Medical History Surgeries: Yes Appendectomy, Cardiac, Coronary Stent, Gallbladder, Hysterectomy, Oophorectomy, Orthopedic Respiratory: Yes (SLEEP APNEA-USES CPAP) Sleep Apnea, COPD Currently Using CPAP: Yes Cardiac: Yes (STENT PLACEMENT X4) Coronary Artery Disease, Heart Attack, High Cholesterol, Hypertension Neurological: Yes Headaches /Migraines, Neuropathy Reproductive Disorders: No ASSIGNMENT EDITOR History: Hysterectomy, Menopausal Genitourinary: No Gastrointestinal: Yes Gastroesophageal Reflux, Diverticulosis Musculoskeletal: Yes ("COMPRESSED DISCS IN BACK" PER PT) Degenerate Disk Disease, Chronic Back Pain Endocrine: Yes Diabetes, Insulin dep HEENT: Yes (GLASSES,DENTURES) Loss of Vision: Denies Hearing Impairment: Denies Cancer: No Psychosocial: Yes Anxiety, Depression Integumentary: No Blood Disorders: No Adverse Reaction/Blood Tranf: No (N/A) Family Medical History Cancer 19 MOTHER Cancer of colon 19 MOTHER Cataract 19 MOTHER Chest pain G8 SISTER Family history: Arthritis 19 FATHER 19 MOTHER G8 SISTER Family history: Cardiovascular disease 19 FATHER 19 MOTHER Family history: Gastrointestinal disease 19 MOTHER Family history: Hypertension 19 MOTHER Family history: Osteoporosis 19 MOTHER Family history: Thyroid disorder G8 SISTER Headache 19 FATHER 19 MOTHER G8 SISTER Hearing loss 19 MOTHER Heart disease 19 FATHER History of - respiratory disease G8 SISTER Hypercholesterolemia 19 FATHER 19 MOTHER Visual impairment 19 MOTHER No Family History of: Abdominal aortic aneurysm Onaway's disease Alcoholism Aphasia Congenital heart disease Congestive heart failure Cystic fibrosis Dementia Dysphagia Family history: Allergy Family history: Alzheimer's disease Family history: Asthma Family history: Breast disease Family history: Coronary thrombosis Family history: Glaucoma Hereditary disease History of - anemia History of - disorder History of drug abuse Human immunodeficiency virus (HIV) seropositivity Infertile Kidney disease Malignant neoplasm of lung Myocardial infarction Parkinson's disease Prostate cancer Psychotic disorder Seizure disorder Stroke Tuberculosis No Pertinent Family Hx Physical Exam Vital Signs Vital Signs - First Documented 08/05/18 14:55 Temp 96.8 Pulse 78 Resp 18 B/P (MAP) 120/64 (82) Capillary Refill : Height, Weight, BMI Height: 5'7.00" Weight: 190lbs. 0.0oz. 86.971866ex; 29.8 BMI Method:Stated General Appearance: No Apparent Distress, WD/WN Eyes: Bilateral Eye Normal Inspection, Bilateral Eye PERRL, Bilateral Eye EOMI HEENT: PERRL/EOMI Neck: Supple Respiratory: Chest Non Tender, Lungs Clear, Normal Breath Sounds Cardiovascular: Regular Rate, Rhythm, No Edema, Normal Peripheral Pulses Gastrointestinal: Non Tender, Soft Extremity: Normal Capillary Refill Neurologic/Psychiatric: Alert, Oriented x3, No Motor/Sensory Deficits, Normal Mood/Affect, public health aide II-XII Norm as Tested Skin: Normal Color, Warm/Dry Progress/Results/Core Measures Suspected Sepsis SIRS Temperature: Pulse: Respiratory Rate: Laboratory Tests 08/05/18 14:59: White Blood Count 7.5 Blood Pressure / Mean: Laboratory Tests 08/05/18 14:59: Creatinine 0.95, Platelet Count 270, Total Bilirubin 0.2 Results/Orders Lab Results Laboratory Tests Test 08/05/18 14:59 08/05/18 15:05 08/05/18 17:00 Range/Units White Blood Count 7.5 4.3-11.0 10^3/uL Red Blood Count 4.08 L 4.35-5.85 10^6/uL Hemoglobin 12.1 11.5-16.0 G/DL Hematocrit 38 35-52 % Mean Corpuscular Volume 94 80-99 FL Mean Corpuscular Hemoglobin 30 25-34 PG Mean Corpuscular Hemoglobin Concent 32 32-36 G/DL Red Cell Distribution Width 12.9 10.0-14.5 % Platelet Count 270 130-400 10^3/uL Mean Platelet Volume 9.5 7.4-10.4 FL Neutrophils (%) (Auto) 60 42-75 % Lymphocytes (%) (Auto) 28 12-44 % Monocytes (%) (Auto) 8 0-12 % Eosinophils (%) (Auto) 3 0-10 % Basophils (%) (Auto) 1 0-10 % Neutrophils # (Auto) 4.5 1.8-7.8 X 10^3 Lymphocytes # (Auto) 2.1 1.0-4.0 X 10^3 Monocytes # (Auto) 0.6 0.0-1.0 X 10^3 Eosinophils # (Auto) 0.2 0.0-0.3 10^3/uL Basophils # (Auto) 0.0 0.0-0.1 10^3/uL Sodium Level 140 135-145 MMOL/L Potassium Level 4.3 3.6-5.0 MMOL/L Chloride Level 101 98-107 MMOL/L Carbon Dioxide Level 28 21-32 MMOL/L Anion Gap 11 5-14 MMOL/L Blood Urea Nitrogen 14 7-18 MG/DL Creatinine 0.95 0.60-1.30 MG/DL Estimat Glomerular Filtration Rate 59 BUN/Creatinine Ratio 15 Glucose Level 230 H 70-105 MG/DL Calcium Level 9.2 8.5-10.1 MG/DL Corrected Calcium 9.0 8.5-10.1 MG/DL Total Bilirubin 0.2 0.1-1.0 MG/DL Aspartate Amino Transf (AST/SGOT) 20 5-34 U/L Alanine Aminotransferase (ALT/SGPT) 23 0-55 U/L Alkaline Phosphatase 68 40-136 U/L Troponin T 13 H 11 H <=10 NG/L Total Protein 7.5 6.4-8.2 GM/DL Albumin 4.3 3.2-4.5 GM/DL Glucometer 208 H 70-110 MG/DL Urine Color YELLOW Urine Clarity CLEAR Urine pH 5.0 5-9 Urine Specific [place] 1.015 L 1.016-1.022 Urine Protein NEGATIVE NEGATIVE Urine Glucose (UA) 3+ H NEGATIVE Urine Ketones NEGATIVE NEGATIVE Urine Nitrite NEGATIVE NEGATIVE Urine Bilirubin NEGATIVE NEGATIVE Urine Urobilinogen 0.2 NORMAL MG/DL Urine Leukocyte Esterase NEGATIVE NEGATIVE Urine RBC (Auto) TRACE H NEGATIVE Urine RBC 0-2 /HPF Urine WBC 5-10 H /HPF Urine Squamous Epithelial Cells 0-2 /HPF Urine Crystals NONE /LPF Urine Bacteria TRACE /HPF Urine Casts NONE /LPF Urine Mucus SMALL H /LPF Urine Culture Indicated NO My Orders Orders - MAYA QUEVEDO L DO Ct Head Wo-R/O Stroke (08/05/18 14:56) Cbc With Automated Diff (08/05/18 14:56) Comprehensive Metabolic Panel (08/05/18 14:56) Ua Culture If Indicated (08/05/18 14:56) Troponin T (08/05/18 14:56) Accucheck Stat ONCE (08/05/18 14:56) Ekg Tracing (08/05/18 14:56) Orthostatic Vital Signs (Adult (08/05/18 14:56) Meclizine Tablet (Antivert Tablet) (08/05/18 15:00) Troponin T (08/05/18 16:31) Medications Given in ED Current Medications Medications Dose Ordered Sig/Hilda Route Start Time Stop Time Status Last Admin Dose Admin Meclizine HCl 25 mg ONCE ONCE PO 08/05/18 15:00 08/05/18 15:01 DC 08/05/18 15:31 25 MG Vital Signs/I&O 08/05/18 08/05/18 08/05/18 08/05/18 14:55 15:13 15:13 15:14 Temp 96.8 Pulse 78 73 79 Resp 18 B/P (MAP) 120/64 (82) 123/63 (83) 101/79 (86) 92/42 (59) Capillary Refill : Progress Note : Progress Note Patient's symptoms completely resolved on the meclizine. Patient had slight elevation of her troponin of 13. We rechecked a 2 hour troponin and she has a second troponin reading of 11 for delta change of 2. This is likely her baseline troponin. Patient did not ever complain of any chest pain. Her symptoms were very consistent with a benign positional vertigo. I did discuss with her the need to follow-up with her primary care physician next week and showed has an appointment on Tuesday. Patient will be discharged home in stable condition. I recommended she use some [id number] Antivert as needed. ECG EKG : EKG Time: 15:04 Rate: 73 Rhythm: Normal Sinus Intervals: Normal ECG Impression: Normal Departure Impression Primary Impression: Vertigo Disposition: HOME, SELF-CARE Condition: Stable Departure-Patient Inst. Referrals: [facility] (PCP) Primary Care Physician JYOTSNA EMERY (Family) Primary Care Physician Patient Instructions: Vertigo (a Type of Dizziness) (DC) Add. Discharge Instructions: Keep already scheduled appointment with her primary care physician for next Tuesday All discharge instructions reviewed with patient and/or family. Voiced understanding. MAYA QUEVEDO DO August 05, 2018 15:02
[2018-08-05 15:06] LABS: BASOPHILS % (AUTO) 1 % (0-10); EOSINOPHILS # (AUTO) 0.2 10^3/uL (0.0-0.3); EOSINOPHILS % (AUTO) 3 % (0-10); HEMATOCRIT 38 % (35-52); HEMOGLOBIN 12.1 G/DL (11.5-16.0); LYMPHOCYTES # (AUTO) 2.1 X 10^3 (1.0-4.0); LYMPHOCYTES % (AUTO) 28 % (12-44); MEAN CORPUSCULAR HEMOGLOBIN 30 PG (25-34); MEAN CORPUSCULAR HGB CONC 32 G/DL (32-36); MEAN CORPUSCULAR VOLUME 94 FL (80-99); MEAN PLATELET VOLUME 9.5 FL (7.4-10.4); MONOCYTES # (AUTO) 0.6 X 10^3 (0.0-1.0); MONOCYTES % (AUTO) 8 % (0-12); NEUTROPHILS # (AUTO) 4.5 X 10^3 (1.8-7.8); NEUTROPHILS % (AUTO) 60 % (42-75); PLATELET COUNT 270 10^3/uL (130-400); RED CELL DISTRIBUTION WIDTH 12.9 % (10.0-14.5); WHITE BLOOD COUNT 7.5 10^3/uL (4.3-11.0)
[2018-08-05 15:13] VITALS: BP_SYST 101; BP_SYST 123; BP_DIAS 63; BP_DIAS 79
[2018-08-05 15:14] VITALS: BP 92/42
[2018-08-05 15:35] LABS: ALBUMIN 4.3 GM/DL (3.2-4.5); BILIRUBIN,TOTAL 0.2 MG/DL (0.1-1.0); CALCIUM 9.2 MG/DL (8.5-10.1); CREATININE SERUM 0.95 MG/DL (0.60-1.30); POTASSIUM 4.3 MMOL/L (3.6-5.0); TOTAL PROTEIN 7.5 GM/DL (6.4-8.2)
--- NOTE | 2018-08-05 16:35 | Diagnostic Imaging Report ---
PROCEDURE: CT head w/o r/o stroke. TECHNIQUE: Multiple contiguous axial images were obtained through the brain without the use of intravenous contrast. Auto Exposure Controls were utilized during the CT exam to meet ALARA standards for radiation dose reduction. INDICATION: Stroke, dizziness. COMPARISON: 12/04/2017. FINDINGS: No intracranial hemorrhage. Intracranial mass, mass effect, midline shift, herniation, hydrocephalus or extra-axial fluid collection. Periventricular and subcortical white matter hypodensities are again identified, most consistent with mild chronic small vessel white matter ischemic disease. No CT evidence of an acute ischemic infarction. The orbits are unremarkable. The paranasal sinuses are clear. The calvarium and extracalvarial soft tissues are unremarkable. IMPRESSION: 1. No acute intracranial abnormality. 2. Mild background chronic small vessel white matter ischemic disease. 3. If there remains concern for underlying occult infarction, further evaluation with MRI of the brain could be obtained. Dictated by: Dictated on workstation # [id number]
[2018-08-05 17:12] LABS: CLARITY,URINE CLEAR; COLOR,URINE YELLOW; GLUCOSE, URINE (UA) 3+ (NEGATIVE); KETONES,URINE NEGATIVE (NEGATIVE); NITRITE,URINE NEGATIVE (NEGATIVE); PROTEIN,URINE NEGATIVE (NEGATIVE)
[2018-08-05 17:13] LABS: BACTERIA,URINE TRACE /HPF; BILIRUBIN,URINE NEGATIVE (NEGATIVE); LEUKOCYTE ESTERASE ,URINE NEGATIVE (NEGATIVE); RBC,URINE 0-2 /HPF; SQUAMOUS EPITHELIAL CELL,UR 0-2 /HPF; UROBILINOGEN,URINE 0.2 MG/DL (NORMAL)
== END 2018-08-05 17:52 | disposition home or self-care (01) ==
LOC: EDUNIT# 14:42 → ER FS 14:43
DX: R42 Dizziness and giddiness (principal); G47.30 Sleep apnea, unspecified; J44.9 Chronic obstructive pulmonary disease, unspecified; I25.10 Atherosclerotic heart disease of native coronary artery without angina pectoris; I25.2 Old myocardial infarction; E78.00 Pure hypercholesterolemia, unspecified; I10 Essential (primary) hypertension; G43.909 Migraine, unspecified, not intractable, without status migrainosus; F41.9 Anxiety disorder, unspecified; F32.9 Major depressive disorder, single episode, unspecified; K21.9 Gastro-esophageal reflux disease without esophagitis; E11.40 Type 2 diabetes mellitus with diabetic neuropathy, unspecified; Z88.6 Allergy status to analgesic agent; Z87.19 Personal history of other diseases of the digestive system; Z80.0 Family history of malignant neoplasm of digestive organs; Z82.49 Family history of ischemic heart disease and other diseases of the circulatory system; Z88.5 Allergy status to narcotic agent; Z88.0 Allergy status to penicillin; Z79.82 Long term (current) use of aspirin; Z79.4 Long term (current) use of insulin; Z95.5 Presence of coronary angioplasty implant and graft; Z90.49 Acquired absence of other specified parts of digestive tract; Z90.710 Acquired absence of both cervix and uterus; Z98.890 Other specified postprocedural states
CPT/HCPCS: 36415; 70450; 80053; 81000; 82962; 84484; 85025

== ENCOUNTER → 2018-08-10 | Outpatient (CLI) | payer MEDICARE ==
--- NOTE | 2018-08-10 18:11 | Diagnostic Imaging Report ---
PROCEDURE: MR imaging cervical spine without contrast. INDICATION: History of previous cervical spine surgery in 2018 with continued neck pain. TECHNIQUE: Multiplanar, multisequence MR imaging of the cervical spine was performed without contrast. CORRELATION STUDY: MRI cervical spine 06/02/2017, CT cervical spine 06/21/2018. FINDINGS: Postoperative change of anterior cervical decompression and fusion with screws, plates and intervertebral disc spacer device at C4, C5 and C6 level are present. There is artifact through the fused segments. The alignment appears to be relatively anatomic. Visualized cervical vertebral body heights are maintained. There is slight loss of height at the superior T2 endplate, nonacute. No definitive concerning geographic lesion. Odontoid intact. Craniocervical junction unremarkable. The cord is of normal caliber and signal intensity. C2-C3 level: Unremarkable. C3-C4 level: Unremarkable. C4-C5 level: Fused. The spinal canal is without significant stenosis. The foramina are limited in visualization but appear to be generally patent. C5-C6 level: Fused. There does appear to be some soft tissue density in the ventral aspect of the spinal canal with slight flattening of the ventral thecal sac. AP dimension of the canal just under 9 mm. Question of some bilateral foraminal narrowing but again the foramina are somewhat limited in evaluation. C6-C7 level: Preservation of disc space height. No significant canal or foraminal narrowing. C7-T1 level: Very mild broad-based disc bulge without significant canal or foraminal stenosis. IMPRESSION: 1. Anterior cervical decompression and fusion C4-C6. Alignment appearing to be anatomic. There does appear to be some degree of mild residual spinal canal narrowing. This is most pronounced at C5-C6 level likely owing to minimal endplate spurring and disc. Assessment of the foramina is limited with component of foraminal narrowing not excluded. Definitive mass effect or distortion of the cord however does not appear to be suggested. 2. Nonfused segments without appreciable canal or foraminal narrowing. Dictated by: Dictated on workstation # [id number]
== END ==
LOC: RAD 14:53
PROVIDERS: ATTEND Orthopaedic Surgery Orthopaedic Trauma
DX: M54.2 Cervicalgia (principal); Z98.1 Arthrodesis status
CPT/HCPCS: 72141

== ENCOUNTER 2018-09-26 11:07 | Outpatient (CLI) | payer MEDICARE, OTHER ==
[~2018-09-26] VITALS: Ht 167.6 cm; Wt 83.5 kg
[2018-09-26 11:19] VITALS: BP 124/73
[2018-09-26] MEDS ORDERED: SEMA1PEN SQ (11:29)
[2018-09-26 11:58] LABS: HEMATOCRIT 39 % (35-52); HEMOGLOBIN 12.4 G/DL (11.5-16.0); MEAN CORPUSCULAR HEMOGLOBIN 29 PG (25-34); MEAN CORPUSCULAR HGB CONC 32 G/DL (32-36); MEAN CORPUSCULAR VOLUME 91 FL (80-99); RED CELL DISTRIBUTION WIDTH 12.8 % (10.0-14.5); WHITE BLOOD COUNT 9.6 10^3/uL (4.3-11.0)
[2018-09-26 11:59] LABS: BASOPHILS % (AUTO) 0 % (0-10); EOSINOPHILS # (AUTO) 0.3 10^3/uL (0.0-0.3); EOSINOPHILS % (AUTO) 3 % (0-10); LYMPHOCYTES # (AUTO) 2.1 X 10^3 (1.0-4.0); LYMPHOCYTES % (AUTO) 22 % (12-44); MEAN PLATELET VOLUME 9.7 FL (7.4-10.4); MONOCYTES # (AUTO) 0.7 X 10^3 (0.0-1.0); MONOCYTES % (AUTO) 7 % (0-12); NEUTROPHILS # (AUTO) 6.6 X 10^3 (1.8-7.8); NEUTROPHILS % (AUTO) 68 % (42-75); PLATELET COUNT 301 10^3/uL (130-400)
[2018-09-26 12:06] LABS: BILIRUBIN,URINE NEGATIVE (NEGATIVE); CLARITY,URINE CLEAR; COLOR,URINE YELLOW; GLUCOSE, URINE (UA) 4+ (NEGATIVE); KETONES,URINE NEGATIVE (NEGATIVE); LEUKOCYTE ESTERASE ,URINE 1+ (NEGATIVE); NITRITE,URINE NEGATIVE (NEGATIVE); PH,URINE 5 (5-9); PROTEIN,URINE 1+ (NEGATIVE); UROBILINOGEN,URINE NORMAL (NORMAL)
[2018-09-26 12:16] LABS: INR 0.9 (0.8-1.4); PROTHROMBIN TIME PATIENT 12.8 SEC (12.2-14.7)
[2018-09-26 12:19] LABS: BUN/CREATININE RATIO 15; CALCIUM 9.6 MG/DL (8.5-10.1); CARBON DIOXIDE 23 MMOL/L (21-32); CHLORIDE 102 MMOL/L (98-107); CREATININE SERUM 0.85 MG/DL (0.60-1.30); GFR ESTIMATED > 60; GLUCOSE 98 MG/DL (70-105); POTASSIUM 4.5 MMOL/L (3.6-5.0); SODIUM 137 MMOL/L (135-145)
[2018-09-26 12:22] LABS: BACTERIA,URINE MODERATE /HPF
--- NOTE | 2018-09-26 13:07 | Diagnostic Imaging Report ---
INDICATION: Preop for cervical spine surgery. TIME OF EXAM: 11:58 a.m. COMPARISON: Comparison is made with prior chest from 04/20/2016. FINDINGS: The heart size is normal. The lungs are clear. No infiltrates are seen. The pulmonary vascularity is normal. No effusion or pneumothorax is identified. Postop changes in lower cervical ACDF are noted. IMPRESSION: No acute cardiopulmonary process is detected. Dictated by: Dictated on workstation # [id number]
[2018-09-26] MEDS ORDERED: GABA800T10 PO (16:10)
[2018-09-26] MEDS ORDERED: BUSP10TA95 PO ×2 (16:13)
== END 2018-09-26 12:00 | disposition home or self-care (01) ==
LOC: PREOP 11:07
PROVIDERS: ATTEND Orthopaedic Surgery Orthopaedic Trauma
DX: Z01.812 Encounter for preprocedural laboratory examination (principal); S12.300A Unspecified displaced fracture of fourth cervical vertebra, initial encounter for closed fracture; S12.500A Unspecified displaced fracture of sixth cervical vertebra, initial encounter for closed fracture
CPT/HCPCS: 36415; 71046; 80048; 81000; 83036; 85025; 85610; 86850; 86900; 86901; 87077; 87081; 87088; 87186

== ENCOUNTER 2018-09-29 06:02 | Inpatient (IN) | payer MEDICARE, OTHER | END 2018-10-01 14:20 | disposition home or self-care (01) | LOC: 4TH 06:02 → SURG 06:03 → 4TH 12:41 ==

== ENCOUNTER 2019-01-13 19:57 | Inpatient (IN) | payer MEDICARE, OTHER ==
[~2019-01-13] VITALS: Ht 170.2 cm; Wt 85.2 kg
[~2019-01-13 19:57] MED LIST changes: +CYCL10TA9 PO; +GABA800T10 PO; +OXYC1TAB87 PO; +SEMA1PEN SQ
[2019-01-13] MEDS ORDERED: LACTATED RINGERS 1,000 ML IV ONE (20:36)
--- NOTE | 2019-01-13 20:41 | ED Abdominal Pain ---
General Chief Complaint: Abdominal/GI Problems Stated Complaint: VOMITING Nursing Triage Note: PT TO ROOM FS04 VIA W/C WITH C/O N/V AND ABD PAIN STARTING AT 0300 TODAY. PT STATES SHE IS UNABLE TO KEEP ANYTHING DOWN. PT STATES NO FEVER AT HOME. Sepsis Screen: No Definite Risk Source of Information: Patient, Spouse Exam Limitations: No Limitations History of Present Illness Date Seen by Provider: Jan 13, 2019 Time Seen by Provider: 20:25 Initial Comments The patient presents to ER by private conveyance with her significant other and chief complaint of waking up about 3:00 this morning with a tight band wrapping around the middle of her abdomen of pain as well as nausea vomiting. She's not had a bowel movement today. She has a history of gastroparesis followed by Dr. Hess, gastroenterology and put on Zenpep for this recently. She has a history of cholecystectomy, appendectomy, hysterectomy but no C-sections. She is not having any painful urination fevers chills cough or shortness of breath. She does have diabetes but says her blood sugars of been running low. She has an implanted a glucometer and nursing reports is around 200 today. She's not been to keep any fluids down today. She says 3 years ago she had a episode just like this that resolved spontaneously so she never had it checked out. Allergies and Home Medications Allergies Coded Allergies: NSAIDS (Non-Steroidal Anti-Inflamma (Verified Allergy, Unknown, 09/29/18) Penicillins (Verified Allergy, Unknown, Nausea, 09/29/18) adhesive tape (Verified Allergy, Unknown, Hives, 09/29/18) codeine (Verified Allergy, Unknown, 09/29/18) Home Medications Atorvastatin Calcium 40 Mg Tablet, 40 MG PO HS, (Reported) Buspirone HCl 10 Mg Tablet, 10 MG PO 0800,1200, (Reported) Buspirone HCl 10 Mg Tablet, 20 MG PO HS, (Reported) Cyclobenzaprine HCl 10 Mg Tablet, 10 MG PO TID PRN for SPASMS Prescribed by: ARIELLA SERRA on 10/01/18 0942 Dapagliflozin Propanediol 5 Mg Tablet, 5 MG PO DAILY, (Reported) Fluoxetine HCl 20 Mg Capsule, 20 MG PO DAILY, (Reported) Gabapentin 800 Mg Tablet, 1,200 MG PO BID, (Reported) take 1 & 1/2 (800mg) tab twice daily Insulin Aspart 300 Units/3 Ml Solution, 35 UNITS SQ AC, (Reported) Insulin Determir 1,000 Units/10 Ml Soln, 65 UNITS SQ BID, (Reported) Lipase/Protease/Amylase 1 Each Capsule.dr, 1 EACH PO AC, (Reported) FOUR TIMES DAILY BEFORE MEALS AND SNACK Metformin HCl 500 Mg Tablet, 1,000 MG PO BID, (Reported) take 2 (500MG) TABS Metoprolol Tartrate 50 Mg Tablet, 50 MG PO BID, (Reported) Oxybutynin Chloride 5 Mg Tab.er.24, 5 MG PO BID, (Reported) Oxycodone HCl/Acetaminophen 1 Each Tablet, 1-2 TAB PO Q4H PRN for PAIN-MODERATE TO SEVERE Prescribed by: ARIELLA SERRA on 10/01/18 0942 Pantoprazole Sodium 40 Mg Tablet.dr, 40 MG PO DAILY, (Reported) Quinapril HCl 20 Mg Tablet, 20 MG PO DAILY, (Reported) Semaglutide 1 Mg/0.75 Ml Pen.injctr, 1 MG SQ WEEK, (Reported) takes on Tuesday Venlafaxine HCl 150 Mg Cap.er.24h, 150 MG PO HS, (Reported) Patient Home Medication List Home Medication List Reviewed: Yes Review of Systems Review of Systems Constitutional: No chills, No diaphoresis EENTM: No Blurred Vision, No Double Vision Respiratory: Denies Cough, Denies Shortness of Air Cardiovascular: Denies Chest Pain, Denies Edema Gastrointestinal: See HPI, Abdominal Pain; Denies Constipated, Denies Diarrhea; Nausea, Poor Fluid Intake, Vomiting Genitourinary: Denies Burning, Denies Discharge Musculoskeletal: No back pain, No joint pain Skin: No change in color, No rash Past Ngzyzly-Goanty-Kvjaiz Hx Patient Social History Alcohol Use: Denies Use Recreational Drug Use: No Smoking Status: Never a Smoker 2nd Hand Smoke Exposure: No Recent Foreign Travel: No Contact w/Someone Who Travel: No Recent Infectious Disease Expo: No Recent Hopitalizations: No Physical Abuse: No Sexual Abuse: No Mistreated: No Fear: No Immunizations Up To Date Date of Pneumonia Vaccine: Dec 19, 2017 Date of Influenza Vaccine: Dec 19, 2017 Seasonal Allergies Seasonal Allergies: No Past Medical History Surgeries: Yes (bilat knee scope, neck sx, allegra cyst removed from neck) Appendectomy, Cardiac, Coronary Stent, Gallbladder, Hysterectomy, Oophorectomy, Orthopedic Respiratory: Yes (SLEEP APNEA-USES CPAP) Sleep Apnea, COPD Currently Using CPAP: Yes Cardiac: Yes (STENT PLACEMENT X4) Coronary Artery Disease, Heart Attack, High Cholesterol, Hypertension Neurological: Yes Headaches /Migraines, Neuropathy 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, 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 Genitourinary: No Gastrointestinal: Yes (diabetic gastroparesis) Gastroesophageal Reflux, Chronic Constipation, Diverticulosis, Chronic Diarrhea Musculoskeletal: Yes ("COMPRESSED DISCS IN BACK" PER PT) Degenerate Disk Disease, Arthritis, Chronic Back Pain Endocrine: Yes Diabetes, Insulin dep HEENT: Yes (GLASSES,DENTURES) Loss of Vision: Denies Hearing Impairment: Denies Cancer: No Psychosocial: Yes Anxiety, Depression Integumentary: No Blood Disorders: No Adverse Reaction/Blood Tranf: No (N/A) Family Medical History Cancer 19 MOTHER Cancer of colon 19 MOTHER Cataract 19 MOTHER Chest pain G8 SISTER Family history: Arthritis 19 FATHER 19 MOTHER G8 SISTER Family history: Cardiovascular disease 19 FATHER 19 MOTHER Family history: Gastrointestinal disease 19 MOTHER Family history: Hypertension 19 MOTHER Family history: Osteoporosis 19 MOTHER Family history: Thyroid disorder G8 SISTER Headache 19 FATHER 19 MOTHER G8 SISTER Hearing loss 19 MOTHER Heart disease 19 FATHER History of - respiratory disease G8 SISTER Hypercholesterolemia 19 FATHER 19 MOTHER Visual impairment 19 MOTHER No Family History of: Abdominal aortic aneurysm Louis's disease Alcoholism Aphasia Congenital heart disease Congestive heart failure Cystic fibrosis Dementia Dysphagia Family history: Allergy Family history: Alzheimer's disease Family history: Asthma Family history: Breast disease Family history: Coronary thrombosis Family history: Glaucoma Hereditary disease History of - anemia History of - disorder History of drug abuse Human immunodeficiency virus (HIV) seropositivity Infertile Kidney disease Malignant neoplasm of lung Myocardial infarction Parkinson's disease Prostate cancer Psychotic disorder Seizure disorder Stroke Tuberculosis No Pertinent Family Hx Physical Exam Vital Signs Vital Signs - First Documented 01/13/19 20:12 Temp 36.6 Pulse 76 Resp 20 B/P (MAP) 125/93 (104) O2 Delivery Room Air Capillary Refill : Less Than 3 Seconds Height/Weight/BMI Height: 5'6.00" Weight: 187lbs. 5.0oz. 84.198169bw; 28.00 BMI Method:Stated General Appearance: WD/WN, mild distress HEENT: PERRL/EOMI; No pharynx normal (oropharynx is dry) Respiratory: lungs clear, normal breath sounds, no respiratory distress, no accessory muscle use Cardiovascular: normal peripheral pulses, regular rate, rhythm Peripheral Pulses: 2+ Radial Pulses (R), 2+ Radial Pulses (L) Gastrointestinal: normal bowel sounds (quiescent), soft, no organomegaly, tenderness (epigastric) Extremities: normal range of motion, normal capillary refill Neurologic/Psychiatric: alert, normal mood/affect, oriented x 3 Skin: normal color, warm/dry Progress/Results/Core Measures Results/Orders Lab Results Laboratory Tests Test 01/13/19 20:26 Range/Units White Blood Count 12.8 H 4.3-11.0 10^3/uL Red Blood Count 4.34 L 4.35-5.85 10^6/uL Hemoglobin 12.7 11.5-16.0 G/DL Hematocrit 39 35-52 % Mean Corpuscular Volume 89 80-99 FL Mean Corpuscular Hemoglobin 29 25-34 PG Mean Corpuscular Hemoglobin Concent 33 32-36 G/DL Red Cell Distribution Width 13.2 10.0-14.5 % Platelet Count 284 130-400 10^3/uL Mean Platelet Volume 9.6 7.4-10.4 FL Neutrophils (%) (Auto) 79 H 42-75 % Lymphocytes (%) (Auto) 16 12-44 % Monocytes (%) (Auto) 5 0-12 % Eosinophils (%) (Auto) 0 0-10 % Basophils (%) (Auto) 0 0-10 % Neutrophils # (Auto) 10.1 H 1.8-7.8 X 10^3 Lymphocytes # (Auto) 2.0 1.0-4.0 X 10^3 Monocytes # (Auto) 0.6 0.0-1.0 X 10^3 Eosinophils # (Auto) 0.0 0.0-0.3 10^3/uL Basophils # (Auto) 0.0 0.0-0.1 10^3/uL Sodium Level 144 135-145 MMOL/L Potassium Level 4.2 3.6-5.0 MMOL/L Chloride Level 103 98-107 MMOL/L Carbon Dioxide Level 20 L 21-32 MMOL/L Anion Gap 21 H 5-14 MMOL/L Blood Urea Nitrogen 14 7-18 MG/DL Creatinine 0.72 0.60-1.30 MG/DL Estimat Glomerular Filtration Rate > 60 BUN/Creatinine Ratio 19 Glucose Level 255 H 70-105 MG/DL Calcium Level 9.7 8.5-10.1 MG/DL Corrected Calcium 8.5-10.1 MG/DL Total Bilirubin 0.4 0.1-1.0 MG/DL Aspartate Amino Transf (AST/SGOT) 19 5-34 U/L Alanine Aminotransferase (ALT/SGPT) 15 0-55 U/L Alkaline Phosphatase 80 40-136 U/L Total Protein 7.7 6.4-8.2 GM/DL Albumin 4.4 3.2-4.5 GM/DL Lipase 45 8-78 U/L My Orders Orders - NICK SUAREZ Ed Iv/Invasive Line Start (01/13/19 20:36) Lactated Ringers (Lr 1000 Ml Iv Solution (01/13/19 20:36) Ondansetron Injection (Zofran Injectio (01/13/19 20:45) Fentanyl Injection (Sublimaze Injection (01/13/19 20:45) Ct Abdomen/Pelvis W (01/13/19 20:36) Cbc With Automated Diff (01/13/19 20:36) Comprehensive Metabolic Panel (01/13/19 20:36) Lipase (01/13/19 20:36) Ua Culture If Indicated (01/13/19 20:36) Iohexol Injection (Omnipaque 350 Mg/Ml 1 (01/13/19 20:45) Received Contrast (Hold Metformin- Contr (01/13/19 20:45) Ns (Ivpb) (Sodium Chloride 0.9% Ivpb Bag (01/13/19 20:45) Pantoprazole Injection (Protonix Injecti (01/13/19 20:45) Medications Given in ED Current Medications Medications Dose Ordered Sig/Hilda Route Start Time Stop Time Status Last Admin Dose Admin Fentanyl Citrate 50 mcg ONCE ONCE IVP 01/13/19 20:45 01/13/19 20:46 DC 01/13/19 20:53 50 MCG Iohexol 100 ml ONCE ONCE IV 01/13/19 20:45 01/13/19 20:46 DC 01/13/19 21:04 100 ML Lactated Ringer's 1,000 ml @ 0 mls/hr Q0M ONCE IV 01/13/19 20:36 01/13/19 20:38 DC 01/13/19 20:52 999 MLS/HR Ondansetron HCl 8 mg ONCE ONCE IVP 01/13/19 20:45 01/13/19 20:46 DC 01/13/19 20:53 8 MG Pantoprazole 40 mg ONCE ONCE IV 01/13/19 20:45 01/13/19 20:46 DC 01/13/19 20:53 40 MG Sodium Chloride 100 ml ONCE ONCE IV 01/13/19 20:45 01/13/19 20:46 DC 01/13/19 21:04 100 ML Vital Signs/I&O 01/13/19 20:12 Temp 36.6 Pulse 76 Resp 20 B/P (MAP) 125/93 (104) O2 Delivery Room Air Blood Pressure Mean: 104 POS Progress Progress Note : Time: 20:43 Progress Note Aseptic vital signs with epigastric pain, intractable nausea vomiting and a history of gastroparesis on pancreatic enzyme replacement therapy. We'll check a lipase labs give her a liter of lactated Ringer's and get a CT of her abdomen and pelvis with IV contrast. If it does not seem to be related to ductal or pancreas then we can consider bowel obstruction/ileus, gastritis, adhesions etc. Reglan may be indicated for severe nausea associated with her history of gastroparesis. Diagnostic Imaging Diagonstic Imaging: CT (with IV contrast) Plain Films/CT/US/NM/MRI: abdomen, pelvis Reviewed: Reviewed by Me Departure Communication (Admissions) Time/Spoke to Admitting Phy: 21:50 Dr Stone agrees to admit. Time/Spoke to Consulting Phy: 21:36 Dr Waldrop: [id number]: Discussed case lab imaging and he agrees to consult on the patient. Impression Primary Impression: Small bowel obstruction Disposition: ADMITTED INPATIENT Condition: Stable Admissions Decision to Admit Reason: Admit from ER (General) Decision to Admit/Date: Jan 13, 2019 Time/Decision to Admit Time: 21:36 Departure-Patient Inst. Referrals: [facility]/ (PCP) Primary Care Physician JYOTSNA MEERY (Family) Primary Care Physician NICK SUAREZ Jan 13, 2019 20:41 POS
[2019-01-13 20:43] LABS: BASOPHILS % (AUTO) 0 % (0-10); EOSINOPHILS % (AUTO) 0 % (0-10); HEMATOCRIT 39 % (35-52); HEMOGLOBIN 12.7 G/DL (11.5-16.0); LYMPHOCYTES % (AUTO) 16 % (12-44); MEAN CORPUSCULAR HEMOGLOBIN 29 PG (25-34); MEAN CORPUSCULAR HGB CONC 33 G/DL (32-36); MEAN CORPUSCULAR VOLUME 89 FL (80-99); MEAN PLATELET VOLUME 9.6 FL (7.4-10.4); MONOCYTES # (AUTO) 0.6 X 10^3 (0.0-1.0); MONOCYTES % (AUTO) 5 % (0-12); NEUTROPHILS # (AUTO) 10.1 X 10^3 (1.8-7.8); NEUTROPHILS % (AUTO) 79 % (42-75); PLATELET COUNT 284 10^3/uL (130-400); RED CELL DISTRIBUTION WIDTH 13.2 % (10.0-14.5); WHITE BLOOD COUNT 12.8 10^3/uL (4.3-11.0)
[2019-01-13] MEDS ORDERED: PANTOPRAZOLE 40 MG (PROTONIX) VIAL IV ONE (20:45)
[2019-01-13] MEDS ORDERED: fentaNYL INJECTION 100 MCG/2 ML AMP IVP ONE ×2 (20:45→22:45)
[2019-01-13] MEDS ORDERED: HOLD METFORMIN - RECEIVED CONTRAST 20 ML VIAL IV SCH (20:45)
[2019-01-13] MEDS ORDERED: IOHEXOL 350 MG/ML 100 ML (OMNIPAQUE 350) VIAL IV ONE (20:45)
[2019-01-13] MEDS ORDERED: ONDANSETRON 4 MG/2 ML (SDV) Z0FRAN IVP ONE (20:45)
[2019-01-13] MEDS ORDERED: NS 100 ML (IVPB) BAG IV ONE (20:45)
[2019-01-13 20:53] LABS: ALANINE AMINOTRANSFERASE 15 U/L (0-55); ALBUMIN 4.4 GM/DL (3.2-4.5); ALKALINE PHOSPHATASE 80 U/L (40-136); BILIRUBIN,TOTAL 0.4 MG/DL (0.1-1.0); BUN/CREATININE RATIO 19; CALCIUM 9.7 MG/DL (8.5-10.1); CARBON DIOXIDE 20 MMOL/L (21-32); CHLORIDE 103 MMOL/L (98-107); CREATININE SERUM 0.72 MG/DL (0.60-1.30); GFR ESTIMATED > 60; GLUCOSE 255 MG/DL (70-105); LIPASE 45 U/L (8-78); POTASSIUM 4.2 MMOL/L (3.6-5.0); SODIUM 144 MMOL/L (135-145); TOTAL PROTEIN 7.7 GM/DL (6.4-8.2)
--- NOTE | 2019-01-13 21:00 | NUR ---
PT RESTING IN BED. PT STATES NAUSEA AND PAIN IS BETTER. PATIENT STATES THERE IS NOTHING SHE NEEDS AT THIS TIME.
--- NOTE | 2019-01-13 21:32 | Diagnostic Imaging Report ---
EXAMINATION: CT abdomen and pelvis with intravenous contrast. TECHNIQUE: Multiple contiguous axial images were obtained through the abdomen and pelvis after the uneventful administration of intravenous contrast. All CT scans use one or more of the following dose optimizing techniques: automated exposure control, MA and/or KvP adjustment based on patient size and exam type or iterative reconstruction. HISTORY: Nausea and vomiting. COMPARISON: 05/07/2016. FINDINGS: Limited views of the lower thorax reveal coronary artery calcifications. The liver is normal without focal lesion. There is no biliary ductal dilation. Gallbladder is surgically absent. Pancreas is normal. Spleen is normal. Adrenal glands are normal. The kidneys are normal. There is no hydronephrosis. Urinary bladder is normal. There is a high-grade small bowel obstruction with a discrete transition point seen in the right lower quadrant (series 2, image 75). There is mesenteric stranding and fluid with fecalization of small bowel contents. No free air is seen. No abdominal or pelvic lymphadenopathy. Aorta is normal in caliber without aneurysm. There are no suspicious osseus lesions. IMPRESSION: High-grade small bowel obstruction with small amount of fluid and stranding in the mesentery. No discrete transition point seen in the right lower quadrant. The presence of fluid in the mesentery is a concerning sign for development of ischemia in the obstructed segments. Dictated by: Dictated on workstation # [id number]
--- NOTE | 2019-01-13 22:00 | NUR ---
DISPATCH CALLED. INFORMED THAT EMS WAS CURRENTLY ON A TRANSFER AND WOULD ARRIVE WHEN THEY GOT BACK TO [facility].
--- NOTE | 2019-01-13 22:11 | NUR ---
PT IN BED TALKING WITH . PT STATES SHE FEELS BETTER AND NEEDS NOTHING AT THIS TIME.
--- NOTE | 2019-01-13 22:38 | NUR ---
PT STATES THAT HER ABD PAIN HAS RETURNED AND IS RATING AT 7/10. PROVIDER NOTIFIED. PT DENIES NAUSEA AND THIS TIME.
--- NOTE | 2019-01-13 22:58 | NUR ---
Note mati in EDM - 01/13/19 at 2310 by FARIDEH PT STATES THAT HER ABD PAIN IS RETURNING AND RATES IT AT 09/20. PROVIDER NOTIFIED. PT DENIES NAUSEA AT THIS TIME.
[2019-01-14] VITALS (15 sets, daily range): BP systolic 112–149; BP diastolic 60–80
[2019-01-14] MEDS ORDERED: PROMETHAZINE INJ 25 MG/ML (PHENERGAN) AMP IV PRN (01:30)
[2019-01-14] MEDS ORDERED: LORazepam INJ 2 MG/ML (ATIVAN) VIAL IV PRN (01:30)
--- NOTE | 2019-01-14 01:30 | NUR ---
ANGEL LUIS MAC admitted to room 422-1, with an admitting diagnosis of SMALL BOWEL OBSTRUCTION, on 01/13/19 from ED via EMS, accompanied by EMS STAFF. ANGEL LUIS MAC introduced to surroundings, call light, bed controls, phone, TV, temperature control, lights, meal times, smoking policy, visitor policy, side rail policy, bathrooms and showers.
[2019-01-14] MEDS: fentaNYL INJECTION 100 MCG/2 ML AMP IV PRN ×6 (01:47→20:26)
[2019-01-14] MEDS: LACTATED RINGERS 1,000 ML IV SCH ×3 (01:47→21:30)
[2019-01-14] MEDS: ONDANSETRON 4 MG/2 ML (SDV) Z0FRAN IV PRN ×2 (04:32→20:25)
[2019-01-14 06:00] LABS: BASOPHILS % (AUTO) 0 % (0-10); EOSINOPHILS # (AUTO) 0.2 10^3/uL (0.0-0.3); EOSINOPHILS % (AUTO) 2 % (0-10); HEMATOCRIT 35 % (35-52); HEMOGLOBIN 11.3 G/DL (11.5-16.0); LYMPHOCYTES % (AUTO) 22 % (12-44); MEAN CORPUSCULAR HEMOGLOBIN 29 PG (25-34); MEAN CORPUSCULAR HGB CONC 32 G/DL (32-36); MEAN CORPUSCULAR VOLUME 91 FL (80-99); MEAN PLATELET VOLUME 10.1 FL (7.4-10.4); MONOCYTES # (AUTO) 0.9 X 10^3 (0.0-1.0); MONOCYTES % (AUTO) 10 % (0-12); NEUTROPHILS # (AUTO) 6.1 X 10^3 (1.8-7.8); NEUTROPHILS % (AUTO) 67 % (42-75); PLATELET COUNT 230 10^3/uL (130-400); RED CELL DISTRIBUTION WIDTH 13.7 % (10.0-14.5); WHITE BLOOD COUNT 9.1 10^3/uL (4.3-11.0)
[2019-01-14 06:23] LABS: ALANINE AMINOTRANSFERASE 16 U/L (0-55); ALBUMIN 3.8 GM/DL (3.2-4.5); ALKALINE PHOSPHATASE 64 U/L (40-136); BILIRUBIN,TOTAL 0.7 MG/DL (0.1-1.0); BUN/CREATININE RATIO 20; CARBON DIOXIDE 23 MMOL/L (21-32); CHLORIDE 106 MMOL/L (98-107); CREATININE SERUM 0.92 MG/DL (0.60-1.30); GFR ESTIMATED > 60; GLUCOSE 177 MG/DL (70-105); POTASSIUM 3.9 MMOL/L (3.6-5.0); SODIUM 142 MMOL/L (135-145); TOTAL PROTEIN 6.7 GM/DL (6.4-8.2)
[2019-01-14] MEDS: inSUlin ASPART (NovoLOG) 1 UNIT/0.01 ML (CHARGE PER UNIT) SC SCH ×4 (06:27→21:00)
--- NOTE | 2019-01-14 11:34 | Consultation - Surgery ---
History of Present Illness History of Present Illness Patient Consulted On(bouchra/time) 01/14/19 11:26 Time Seen by Provider: 10:26 History of Present Illness Surgery asked to consult regarding abdominal pain and PSBO. HPI per ED: The patient presents to ER by private conveyance with her significa nt other and chief complaint of waking up about 3:00 this morning with a tight band wrapping around the middle of her abdomen of pain as well as nausea vomiting. She's not had a bowel movement today. She has a history of gastroparesis followed by Dr. Hess, gastroenterology and put on Zenpep for this recently. She has a history of cholecystectomy, appendectomy, hysterectomy but no C-sections. She is not having any painful urination fevers chills cough or shortness of breath. She does have diabetes but says her blood sugars of been running low. She has an implanted a glucometer and nursing reports is around 200 today. She's not been to keep any fluids down today. She says 3 years ago she had a episode just like this that resolved spontaneously so she never had it checked out. When seen this am pt states the pain is coming back worse; rating it as 10 out of 10. Pain was only relieved for short period by pain meds. She describes a tight band across abdomen; associated with nausea and vomiting. Movement makes pain worse. Allergies and Home Medications Allergies Coded Allergies: NSAIDS (Non-Steroidal Anti-Inflamma (Verified Allergy, Unknown, 09/29/18) Penicillins (Verified Allergy, Unknown, Nausea, 09/29/18) adhesive tape (Verified Allergy, Unknown, Hives, 09/29/18) codeine (Verified Allergy, Unknown, 09/29/18) Home Medications Atorvastatin Calcium 40 Mg Tablet, 40 MG PO HS, (Reported) Buspirone HCl 10 Mg Tablet, 10 MG PO 0800,1200, (Reported) Buspirone HCl 10 Mg Tablet, 20 MG PO HS, (Reported) Cyclobenzaprine HCl 10 Mg Tablet, 10 MG PO TID PRN for SPASMS Prescribed by: ARIELLA SERRA on 10/01/18 0942 Dapagliflozin Propanediol 5 Mg Tablet, 5 MG PO DAILY, (Reported) Fluoxetine HCl 20 Mg Capsule, 20 MG PO DAILY, (Reported) Gabapentin 800 Mg Tablet, 1,200 MG PO BID, (Reported) take 1 & 1/2 (800mg) tab twice daily Insulin Aspart 300 Units/3 Ml Solution, 35 UNITS SQ AC, (Reported) Insulin Determir 1,000 Units/10 Ml Soln, 65 UNITS SQ BID, (Reported) Lipase/Protease/Amylase 1 Each Capsule.dr, 1 EACH PO AC, (Reported) FOUR TIMES DAILY BEFORE MEALS AND SNACK Metformin HCl 500 Mg Tablet, 1,000 MG PO BID, (Reported) take 2 (500MG) TABS Metoprolol Tartrate 50 Mg Tablet, 50 MG PO BID, (Reported) Oxybutynin Chloride 5 Mg Tab.er.24, 5 MG PO BID, (Reported) Oxycodone HCl/Acetaminophen 1 Each Tablet, 1-2 TAB PO Q4H PRN for PAIN-MODERATE TO SEVERE Prescribed by: ARIELLA SERRA on 10/01/18 0942 Pantoprazole Sodium 40 Mg Tablet.dr, 40 MG PO DAILY, (Reported) Quinapril HCl 20 Mg Tablet, 20 MG PO DAILY, (Reported) Semaglutide 1 Mg/0.75 Ml Pen.injctr, 1 MG SQ WEEK, (Reported) takes on Tuesday Venlafaxine HCl 150 Mg Cap.er.24h, 150 MG PO HS, (Reported) Patient Home Medication List Home Medication List Reviewed: Yes Past Aqedykb-Duecpv-Tqqznx Hx Patient Social History Alcohol Use: Denies Use Recreational Drug Use: No Smoking Status: Never a Smoker 2nd Hand Smoke Exposure: No Recent Foreign Travel: No Contact w/Someone Who Travel: No Recent Infectious Disease Expo: No Recent Hopitalizations: No Immunizations Up To Date Date of Pneumonia Vaccine: Dec 14, 2017 Date of Influenza Vaccine: Dec 14, 2018 Seasonal Allergies Seasonal Allergies: No Surgeries History of Surgeries: Yes (bilat knee scope, neck sx, allegra cyst removed from neck) Surgeries: Appendectomy (lap converted to open), Cardiac, Coronary Stent, Gallbladder, Hysterectomy, Oophorectomy, Orthopedic Respiratory History of Respiratory Disorde: Yes (SLEEP APNEA-USES CPAP) Respiratory Disorders: Sleep Apnea, COPD Cardiovascular History of Cardiac Disorders: Yes (STENT PLACEMENT X4) Cardiac Disorders: Coronary Artery Disease, Heart Attack, High Cholesterol, Hypertension Neurological History of Neurological Disord: Yes Neurological Disorders: Headaches /Migraines, Neuropathy Reproductive System : No Hx Reproductive Disorders: No DRY ROASTER History: Hysterectomy, Menopausal Genitourinary History of Genitourinary Disor: No Gastrointestinal History of Gastrointestinal Di: Yes (diabetic gastroparesis) Gastrointestinal Disorders: Gastroesophageal Reflux, Chronic Constipation, Diverticulosis, Chronic Diarrhea Musculoskeletal History of Musculoskeletal Dis: Yes ("COMPRESSED DISCS IN BACK" PER PT) Musculoskeletal Disorders: Degenerate Disk Disease, Arthritis, Chronic Back Pain Endocrine History of Endocrine Disorders: Yes Endocrine Disorders: Diabetes, Insulin dep HEENT History of HEENT Disorders: Yes (GLASSES,DENTURES) Loss of Vision: Denies Hearing Impairment: Denies Cancer History of Cancer: No Psychosocial History of Psychiatric Problem: Yes Behavioral Health Disorders: Anxiety, Depression Integumentary History of Skin or Integumenta: No Blood Transfusions History of Blood Disorders: No Adverse Reaction to a Blood Tr: No (N/A) Family Medical History Significant Family History: Heart Disease, Cancer, Hypertension Family Medial History: Cancer 19 MOTHER Cancer of colon 19 MOTHER Cataract 19 MOTHER Chest pain G8 SISTER Family history: Arthritis 19 FATHER 19 MOTHER G8 SISTER Family history: Cardiovascular disease 19 FATHER 19 MOTHER Family history: Gastrointestinal disease 19 MOTHER Family history: Hypertension 19 MOTHER Family history: Osteoporosis 19 MOTHER Family history: Thyroid disorder G8 SISTER Headache 19 FATHER 19 MOTHER G8 SISTER Hearing loss 19 MOTHER Heart disease 19 FATHER History of - respiratory disease G8 SISTER Hypercholesterolemia 19 FATHER 19 MOTHER Visual impairment 19 MOTHER No Family History of: Abdominal aortic aneurysm Yancey's disease Alcoholism Aphasia Congenital heart disease Congestive heart failure Cystic fibrosis Dementia Dysphagia Family history: Allergy Family history: Alzheimer's disease Family history: Asthma Family history: Breast disease Family history: Coronary thrombosis Family history: Glaucoma Hereditary disease History of - anemia History of - disorder History of drug abuse Human immunodeficiency virus (HIV) seropositivity Infertile Kidney disease Malignant neoplasm of lung Myocardial infarction Parkinson's disease Prostate cancer Psychotic disorder Seizure disorder Stroke Tuberculosis Review of Systems-General Constitutional: diaphoresis, malaise, weakness EENTM: No blurred vision, No double vision, No mouth pain, No mouth swelling, No epistaxis Respiratory: dyspnea on exertion; No hemoptysis, No phlegm, No short of breath Cardiovascular: No chest pain, No edema; Hx of Intervention; No palpitations Gastrointestinal: abdominal pain; No hematemesis; loss of appetite, nausea, vomiting Genitourinary: No dysuria, No frequency, No hematuria : No Musculoskeletal: joint pain, joint swelling, muscle pain, muscle stiffness Skin: No change in color, No change in hair/nails Psychiatric/Neurological: Anxiety, Depressed; Denies Seizure, Denies Tremors Other pt denies any hx of abnormal bleeding or bruising Physical Exam-General Problems Physical Exam Vital Signs Vital Signs - First Documented 01/13/19 01/13/19 20:12 22:15 Temp 36.6 Pulse 76 Resp 20 B/P (MAP) 125/93 (104) Pulse Ox 97 O2 Delivery Room Air Capillary Refill : Less Than 3 Seconds General Appearance: moderate distress, obese Eyes: Bilateral Eye PERRL, Bilateral Eye EOMI HEENT: pharynx normal; No scleral icterus (R), No scleral icterus (L); other (mucous membranes slightly drain) Neck: non-tender, supple Respiratory: chest non-tender, lungs clear, normal breath sounds, no respiratory distress, no accessory muscle use Cardiovascular: regular rate, rhythm, no edema, no murmur Gastrointestinal: no organomegaly, no pulsatile mass, distended, guarding, rebound, tenderness, hernia (small umbilical) Back: no CVA tenderness, no vertebral tenderness Extremities: normal range of motion, non-tender, normal inspection, no pedal edema, no calf tenderness, normal capillary refill Neurologic/Psychiatric: ethylene plant helper II-XII nml as tested, no motor/sensory deficits, alert, normal mood/affect, oriented x 3 Skin: normal color, warm/dry Lymphatic: no adenopathy (neck, axilla or groin) Data Review Labs Laboratory Tests 01/13/19 20:26: White Blood Count 12.8H, Red Blood Count 4.34L, Hemoglobin 12.7, Hematocrit 39, Mean Corpuscular Volume 89, Mean Corpuscular Hemoglobin 29, Mean Corpuscular Hemoglobin Concent 33, Red Cell Distribution Width 13.2, Platelet Count 284, Mean Platelet Volume 9.6, Neutrophils (%) (Auto) 79H, Lymphocytes (%) (Auto) 16, Monocytes (%) (Auto) 5, Eosinophils (%) (Auto) 0, Basophils (%) (Auto) 0, Neutrophils # (Auto) 10.1H, Lymphocytes # (Auto) 2.0, Monocytes # (Auto) 0.6, Eosinophils # (Auto) 0.0, Basophils # (Auto) 0.0, Sodium Level 144, Potassium Level 4.2, Chloride Level 103, Carbon Dioxide Level 20L, Anion Gap 21H, Blood Urea Nitrogen 14, Creatinine 0.72, Estimat Glomerular Filtration Rate > 60, BUN/Creatinine Ratio 19, Glucose Level 255H, Calcium Level 9.7, Corrected Calcium , Total Bilirubin 0.4, Aspartate Amino Transf (AST/SGOT) 19, Alanine Aminotransferase (ALT/SGPT) 15, Alkaline Phosphatase 80, Total Protein 7.7, Albumin 4.4, Lipase 45 01/14/19 05:20: White Blood Count 9.1, Red Blood Count 3.89L, Hemoglobin 11.3L, Hematocrit 35, Mean Corpuscular Volume 91, Mean Corpuscular Hemoglobin 29, Mean Corpuscular Hemoglobin Concent 32, Red Cell Distribution Width 13.7, Platelet Count 230, Mean Platelet Volume 10.1, Neutrophils (%) (Auto) 67, Lymphocytes (%) (Auto) 22, Monocytes (%) (Auto) 10, Eosinophils (%) (Auto) 2, Basophils (%) (Auto) 0, Neutrophils # (Auto) 6.1, Lymphocytes # (Auto) 2.0, Monocytes # (Auto) 0.9, Eosinophils # (Auto) 0.2, Basophils # (Auto) 0.0, Sodium Level 142, Potassium Level 3.9, Chloride Level 106, Carbon Dioxide Level 23, Anion Gap 13, Blood Urea Nitrogen 18, Creatinine 0.92, Estimat Glomerular Filtration Rate > 60, BUN/Creatinine Ratio 20, Glucose Level 177H, Calcium Level 9.0, Corrected Calcium 9.2, Total Bilirubin 0.7, Aspartate Amino Transf (AST/SGOT) 17, Alanine Aminotransferase (ALT/SGPT) 16, Alkaline Phosphatase 64, Total Protein 6.7, Albumin 3.8 Assessment/Plan Assessment/Plan Assessment/Plan PSBO - high grade CAD, HTN, DM Pt is looking worse and I believe she needs to go to the OR for Diagnostic Laparoscopy, possible open, possible lysis of adhesions and possible small bowel resection. I discussed the procedure with pt; risks and complications not limited to pain, bleeding, infection, scar, damage to bowel and need for further procedure. All questions answered to her satisfaction. Pt stated she wants to go to surgery "something's gotta give". We have her on IV fluids, pain control, anti-emetics and will give her IV ABX 1/2 hour prior to surgery. Clinical Quality Measures DVT/VTE Risk/Contraindication: Risk Factor Score Per Nursin RFS Level Per Nursing on Admit: 2=Moderate HUNTER GARCIA DO Jan 14, 2019 11:34 POS
[2019-01-14] MEDS ORDERED: ceFAZolin 2 GM IV Premixed 50 ML IV ONE (11:45)
[2019-01-14] MEDS ORDERED: metroNIDAZOLE 500MG/100ML IVPB 100 ML IV ONE (11:45)
[2019-01-14] MEDS ORDERED: BUP/EPI 0.5% 1:200,000 (SENSORCAINE) 30 ML VIAL ONE (11:50)
--- NOTE | 2019-01-14 12:00 | NUR ---
DOWN TO PREOP
[2019-01-14] MEDS ORDERED: LACTATED RINGERS 1,000 ML IV PRN (12:03)
[2019-01-14] MEDS ORDERED: LIDOCAINE PF 2% 5 ML (XYLOCAINE) VIAL ONE (12:08)
[2019-01-14] MEDS ORDERED: proPOfol 200 MG/20 ML (DIPRIVAN) VIAL IV ONE (12:08)
[2019-01-14] MEDS ORDERED: fentaNYL INJECTION 100 MCG/2 ML AMP ONE (12:11)
[2019-01-14] MEDS ORDERED: MIDAZOLAM 2 MG/2 ML (VERSED) VIAL ONE (12:11)
--- NOTE | 2019-01-14 13:10 | NUR ---
NOTE THAT PT'S IS IN RM 422 -- ARNALDO SALAZAR RN
[2019-01-14] MEDS ORDERED: ESMOLOL 100 MG/10 ML (BREVIBLOC) VIAL ONE (13:12)
[2019-01-14] MEDS ORDERED: ONDANSETRON 4 MG/2 ML (SDV) Z0FRAN ONE (13:12)
[2019-01-14] MEDS ORDERED: ROCURONIUM 10 MG/ML 5 ML SYRINGE IV ONE (13:12)
[2019-01-14] MEDS ORDERED: SEVOFLURANE (ULTANE) 15 ML INHAL SOLN ONE (13:18)
[2019-01-14] MEDS ORDERED: GLYCOPYRROLATE 0.2 MG/ML (ROBINUL) 2 ML VIAL ONE (13:18)
[2019-01-14] MEDS ORDERED: NEOSTIGMINE 3 MG/3 ML VIAL ONE (13:18)
--- NOTE | 2019-01-14 13:20 | Progress Note-Post Operative ---
Post-Operative Progess Note Surgeon (s)/Truck Loader And Unloader (s) Surgeon HUNTER GARCIA DO Truck Loader And Unloader: Elidia Bishop MS III, Franck Neville MS III Pre-Operative Diagnosis PSBO Post-Operative Diagnosis Same secondary to internal hernia caused by adhesion Procedure & Operative Findings Date of Procedure 01/14/19 Procedure Performed/Findings Laparoscopic EUGENIA with release of internal hernia and SBO Anesthesia Type GET Estimated Blood Loss Estimated blood loss (mL): scant Specimens/Packing Specimens Removed none HUNTER GARCIA DO Jan 14, 2019 13:20 POS
[2019-01-14] MEDS ORDERED: PHENYLEPHRINE 100 MCG/ML 10 ML (ANESTHESIA) SYR ONE (13:35)
--- NOTE | 2019-01-14 13:54 | History & Physical-Hospitalist ---
History of Present Illness HPI/Chief Complaint Chief complaint: Small bowel obstruction in need of urgent surgery History of present illness: This is a 68-year-old white female clinic patient of [facility] who presented to the ER with abdominal pain found to have small bowel obstruction confirmed on CT scan. She began having increased pain and vomiting bowel contents so she was taken to urgent surgery. Source: RN/MD Exam Limitations: clinical condition (post op) Date Seen 01/14/19 Time Seen by a Provider: 14:00 Attending Physician Jesi Stone DO [facility] Referring Physician Date of Admission Jan 13, 2019 at 23:35 Home Medications & Allergies Home Medications Reviewed patient Home Medication Reconciliation performed by pharmacy medication reconciliations plastic surgery technician and/or nursing. Patients Allergies have been reviewed. Allergies Allergies Coded Allergies NSAIDS (Non-Steroidal Anti-Inflamma (Verified Allergy, Unknown, 09/29/18) Penicillins (Verified Allergy, Unknown, Nausea, 09/29/18) adhesive tape (Verified Allergy, Unknown, Hives, 09/29/18) codeine (Verified Allergy, Unknown, 09/29/18) Past Sndljek-Oghbfx-Ffrujs Hx Past Med/Social Hx: Reviewed Nursing Past Med/Soc Hx, Reviewed and Corrections made Patient Social History Alcohol Use: Denies Use Recreational Drug Use: No Smoking Status: Never a Smoker 2nd Hand Smoke Exposure: No Recent Foreign Travel: No Contact w/other who traveled: No Recent Hopitalizations: No Recent Infectious Disease Expo: No Immunizations Up To Date Date of Pneumonia Vaccine: Dec 14, 2017 Date of Influenza Vaccine: Dec 14, 2018 Seasonal Allergies Seasonal Allergies: No Past Medical History Surgeries: Appendectomy (lap converted to open), Cardiac, Coronary Stent, Gallbladder, Hysterectomy, Oophorectomy, Orthopedic Currently Using CPAP: Yes Cardiac: Coronary Artery Disease, Heart Attack, High Cholesterol, Hypertension Neurological: Headaches /Migraines, Neuropathy : No Reproductive: No Hysterectomy, Menopausal Gastrointestinal: Gastroesophageal Reflux, Chronic Constipation, Diverticulosis, Chronic Diarrhea Musculoskeletal: Degenerate Disk Disease, Arthritis, Chronic Back Pain Endocrine: Diabetes, Insulin dep Loss of Vision: Denies Hearing Impairment: Denies Psychosocial: Anxiety, Depression History of Blood Disorders: No Adverse Reaction to Blood Downey: No (N/A) Family History Cancer 19 MOTHER Cancer of colon 19 MOTHER Cataract 19 MOTHER Chest pain G8 SISTER Family history: Arthritis 19 FATHER 19 MOTHER G8 SISTER Family history: Cardiovascular disease 19 FATHER 19 MOTHER Family history: Gastrointestinal disease 19 MOTHER Family history: Hypertension 19 MOTHER Family history: Osteoporosis 19 MOTHER Family history: Thyroid disorder G8 SISTER Headache 19 FATHER 19 MOTHER G8 SISTER Hearing loss 19 MOTHER Heart disease 19 FATHER History of - respiratory disease G8 SISTER Hypercholesterolemia 19 FATHER 19 MOTHER Visual impairment 19 MOTHER No Family History of: Abdominal aortic aneurysm Louis's disease Alcoholism Aphasia Congenital heart disease Congestive heart failure Cystic fibrosis Dementia Dysphagia Family history: Allergy Family history: Alzheimer's disease Family history: Asthma Family history: Breast disease Family history: Coronary thrombosis Family history: Glaucoma Hereditary disease History of - anemia History of - disorder History of drug abuse Human immunodeficiency virus (HIV) seropositivity Infertile Kidney disease Malignant neoplasm of lung Myocardial infarction Parkinson's disease Prostate cancer Psychotic disorder Seizure disorder Stroke Tuberculosis Heart Disease, Cancer, Hypertension Review of Systems Constitutional: see HPI Gastrointestinal: abdominal pain Physical Exam Physical Exam Vital Signs Vital Signs - First Documented 01/13/19 01/13/19 20:12 22:15 Temp 36.6 Pulse 76 Resp 20 B/P (MAP) 125/93 (104) Pulse Ox 97 O2 Delivery Room Air Capillary Refill : Less Than 3 Seconds Height, Weight, BMI Height: 5'6.00" Weight: 187lbs. 5.0oz. [id number]; 29.41 BMI Method:Stated General Appearance: Anxious, Moderate Distress Respiratory: Lungs Clear Cardiovascular: Regular Rate, Rhythm Results Results/Procedures Labs Laboratory Tests 01/13/19 20:26 01/14/19 05:20 Patient resulted labs reviewed. Assessment/Plan Admission Diagnosis Assessment: SBO in need of urgent surgery Plan: OR Admission Status: Inpatient Order (span 2 midnights) Reason for Inpatient Admission: SBO going to OR Diagnosis/Problems Diagnosis/Problems (1) Small bowel obstruction Status: Acute Clinical Quality Measures DVT/VTE Risk/Contraindication: Risk Factor Score Per Nursin RFS Level Per Nursing on Admit: 2=Moderate JESI STONE DO Jan 14, 2019 13:54 POS
[2019-01-14] MEDS ORDERED: ONDANSETRON 4 MG/2 ML (SDV) Z0FRAN IVP PRN (14:00)
[2019-01-14] MEDS ORDERED: fentaNYL INJECTION 100 MCG/2 ML AMP IVP ONE (14:00)
--- NOTE | 2019-01-14 14:35 | NUR ---
BACK TO ROOM PER ZINC PLATER -- REPORT FROM ZINC PLATER -- HAS 3 PUNCTURE SITES THAT ARE GLUED AND ICE PACK TO SITE -- PT DENIES ANY PAIN AND NO NAUSEA
--- NOTE | 2019-01-14 17:45 | OPERATIVE REPORT ---
DATE OF SERVICE: PREOPERATIVE DIAGNOSIS: High-grade partial small-bowel obstruction. POSTOPERATIVE DIAGNOSIS: High-grade partial small-bowel obstruction secondary to internal hernia caused by adhesions. PROCEDURE: Laparoscopic lysis of adhesions with release of internal hernia and release of small-bowel obstruction. SURGEON: Sukhjinder Waldrop DO FIRST ASSISTANTS: 1. Tri Bishop, MS3. 2. , MS3. ANESTHESIA: General endotracheal tube. SPECIMENS: None. BLOOD LOSS: Scant. FLUIDS: Per anesthesia. POSTOPERATIVE CONDITION: Stable. INDICATION FOR PROCEDURE: The patient is a 68-year-old female, who came in with severe abdominal pain, had partial small-bowel obstruction, read by Radiology on a CAT scan. FINDINGS: The patient had an adhesion that had caused an internal hernia causing a high-grade partial small-bowel obstruction. Picture was taken. PROCEDURE NOTE: After informed consent was obtained, the patient was brought to the operating room, placed on the table in supine position. She was sterilely prepped and draped in normal fashion. Ioban placed. I started by infiltrating the supraumbilical area with local lidocaine and then made an incision with #11 blade, carried down through the skin into subcutaneous tissue, then deepened down through subcutaneous tissue with Bovie electrocautery down to the fascia. Fascia was then incised with Bovie electrocautery, bluntly entered the abdomen, swept a finger around, placed limited trocar port under direct visualization. Created pneumoperitoneum, then placed another port in the midline down below using local lidocaine, 11 blade for stab incision and VersaStep system, all done under direct visualization. The patient had some adhesions of omentum in the midline. This was carefully taken down with blunt dissection as well as Bovie electrocautery, could see dilated small bowel and then could see pass this decompressed small bowel and then in the right lower quadrant, found a knuckle of small bowel that was stuck through an internal hernia caused by an adhesion. Placed a second port and then another 5 mm in the left lower quadrant with local lidocaine, 11 blade for stab incision and VersaStep system, all done under direct visualization. I was then able to grasp the small bowel and then carefully with scissors lysed this adhesion. This then released the portion of small bowel. There was some mild edema and petechiae on the small intestine, but the small intestine looked viable. Continued to lyse some adhesions, so we could free this area up and then ran the small bowel from the terminal ileum through the area of the adhesions and to the area that had previously been resected, started to get some release of this obstruction and the fluid started moving through, looked good. After we had freed everything up and we looked around, no other obvious pathology. The patient had been slightly Trendelenburg and rotated left. She was then placed supine. Placed the omentum back down into the pelvis to cover this area and at this point, removed all ports under direct visualization, allowed the pneumoperitoneum to escape, closed supraumbilical incision, closing the fascia with 0 Vicryl [id number] suture, then closed the two small 5 mm incisions with single interrupted 4-0 undyed Monocryl subcuticular stitch, closed supraumbilical incision with 3 interrupted 4-0 undyed Monocryl subcuticular stitches. Area was cleaned and dried and Dermabond and Band-Aids placed. The patient tolerated the procedure. Sponge, instrument and needle counts were correct at the end of the case. Job ID: [id number] DocumentID: [id number] Dictated Date: 01/14/2019 13:20:45 Mmi Teacher Date: 01/14/2019 17:45:03 Dictated By: SUKHJINDER WALDROP DO
[2019-01-15] VITALS (7 sets, daily range): BP systolic 118–158; BP diastolic 62–90
[2019-01-15] MEDS: LACTATED RINGERS 1,000 ML IV SCH ×3 (03:00→22:46)
[2019-01-15] MEDS: fentaNYL INJECTION 100 MCG/2 ML AMP IV PRN ×2 (03:25→11:08)
[2019-01-15 06:10] LABS: BASOPHILS % (AUTO) 0 % (0-10); EOSINOPHILS # (AUTO) 0.2 10^3/uL (0.0-0.3); EOSINOPHILS % (AUTO) 3 % (0-10); HEMATOCRIT 32 % (35-52); HEMOGLOBIN 9.9 G/DL (11.5-16.0); LYMPHOCYTES # (AUTO) 1.3 X 10^3 (1.0-4.0); LYMPHOCYTES % (AUTO) 21 % (12-44); MEAN CORPUSCULAR HEMOGLOBIN 29 PG (25-34); MEAN CORPUSCULAR HGB CONC 31 G/DL (32-36); MEAN CORPUSCULAR VOLUME 93 FL (80-99); MEAN PLATELET VOLUME 10.2 FL (7.4-10.4); MONOCYTES # (AUTO) 0.7 X 10^3 (0.0-1.0); MONOCYTES % (AUTO) 11 % (0-12); NEUTROPHILS # (AUTO) 4.3 X 10^3 (1.8-7.8); NEUTROPHILS % (AUTO) 66 % (42-75); PLATELET COUNT 187 10^3/uL (130-400); RED CELL DISTRIBUTION WIDTH 13.7 % (10.0-14.5); WHITE BLOOD COUNT 6.5 10^3/uL (4.3-11.0)
[2019-01-15] MEDS: inSUlin ASPART (NovoLOG) 1 UNIT/0.01 ML (CHARGE PER UNIT) SC SCH ×4 (06:13→21:49)
[2019-01-15 06:18] LABS: ALANINE AMINOTRANSFERASE 12 U/L (0-55); ALBUMIN 3.2 GM/DL (3.2-4.5); ALKALINE PHOSPHATASE 52 U/L (40-136); BILIRUBIN,TOTAL 0.4 MG/DL (0.1-1.0); BUN/CREATININE RATIO 14; CALCIUM 8.2 MG/DL (8.5-10.1); CARBON DIOXIDE 26 MMOL/L (21-32); CHLORIDE 107 MMOL/L (98-107); CREATININE SERUM 0.71 MG/DL (0.60-1.30); GFR ESTIMATED > 60; GLUCOSE 76 MG/DL (70-105); POTASSIUM 3.7 MMOL/L (3.6-5.0); SODIUM 143 MMOL/L (135-145); TOTAL PROTEIN 5.7 GM/DL (6.4-8.2)
--- NOTE | 2019-01-15 07:37 | Progress Note - Surgery ---
BEBO MALDONADO,MED STUDENT 01/15/19 0736: Subjective Date Seen by a Provider: Jan 15, 2019 Time Seen by a Provider: 07:15 Subjective/Events-last exam Patient reports improved abdominal pain today. She is passing flatus and reports that appetite has returned. Denies nausea or vomiting. No bowel movement yet. Objective Exam Vital Signs Date Time Temp Pulse Resp B/P (MAP) Pulse Ox O2 Delivery O2 Flow Rate FiO2 01/15/19 04:05 37.2 105 18 118/70 (86) 91 Nasal Cannula 2.00 01/15/19 00:03 37.0 94 17 130/74 (92) 97 Nasal Cannula 2.00 01/14/19 20:00 99 Nasal Cannula 2.00 01/14/19 20:00 36.8 99 16 115/71 (86) 99 Nasal Cannula 2.00 01/14/19 16:45 95 Room Air 01/14/19 16:00 36.7 102 18 114/72 (86) 96 Nasal Cannula 2.00 01/14/19 15:20 Nasal Cannula 2.00 01/14/19 14:42 36.7 100 18 123/74 (90) 93 Nasal Cannula 2.00 01/14/19 14:35 36.4 18 126/74 (91) 96 Nasal Cannula 2 01/14/19 14:35 Nasal Cannula 2 01/14/19 14:30 18 124/72 (89) 96 Nasal Cannula 2 01/14/19 14:26 Nasal Cannula 2 01/14/19 14:20 18 121/67 (85) 94 Room Air 01/14/19 14:15 OxyMask 3 01/14/19 14:10 OxyMask 6 01/14/19 14:10 18 112/60 (77) 99 OxyMask 6 01/14/19 14:00 20 125/67 (86) 100 OxyMask 6 01/14/19 13:55 OxyMask 6 01/14/19 13:50 20 116/70 (85) 100 OxyMask 6 01/14/19 13:42 OxyMask 6 01/14/19 13:42 36.7 22 120/60 (80) 97 OxyMask 6 01/14/19 12:00 36.7 01/14/19 11:47 36.3 01/14/19 11:12 36.3 90 18 138/75 (96) 93 Room Air 01/14/19 08:49 36.8 01/14/19 08:00 95 Room Air 01/14/19 07:37 36.8 96 18 128/76 (93) 95 Room Air I & O 01/15/19 07:00 Intake Total 2150 ml Output Total 1145 ml Balance 1005 ml Capillary Refill : Less Than 3 SecondsLess Than 3 Seconds General Appearance: No Apparent Distress, WD/WN Neck: Normal Inspection, Supple Respiratory: Lungs Clear, Normal Breath Sounds, No Accessory Muscle Use, No Respiratory Distress Cardiovascular: Regular Rate, Rhythm, No Murmur Peripheral Pulses: 2+ Radial Pulses (R), 2+ Radial Pulses (L) Gastrointestinal: soft, no organomegaly, no pulsatile mass, tenderness (incisional tenderness) Extremity: Non Tender, No Pedal Edema Neurologic/Psychiatric: Alert, Normal Mood/Affect Skin: Normal Color, Warm/Dry Results Lab Laboratory Tests 01/14/19 11:11: Glucometer 166H 01/14/19 13:52: Glucometer 176H 01/14/19 16:22: Glucometer 135H 01/14/19 20:58: Glucometer 87 01/15/19 05:30: White Blood Count 6.5, Red Blood Count 3.38L, Hemoglobin 9.9L, Hematocrit 32L, Mean Corpuscular Volume 93, Mean Corpuscular Hemoglobin 29, Mean Corpuscular Hemoglobin Concent 31L, Red Cell Distribution Width 13.7, Platelet Count 187, Mean Platelet Volume 10.2, Neutrophils (%) (Auto) 66, Lymphocytes (%) (Auto) 21, Monocytes (%) (Auto) 11, Eosinophils (%) (Auto) 3, Basophils (%) (Auto) 0, Neutrophils # (Auto) 4.3, Lymphocytes # (Auto) 1.3, Monocytes # (Auto) 0.7, Eosinophils # (Auto) 0.2, Basophils # (Auto) 0.0, Sodium Level 143, Potassium Level 3.7, Chloride Level 107, Carbon Dioxide Level 26, Anion Gap 10, Blood Urea Nitrogen 10, Creatinine 0.71, Estimat Glomerular Filtration Rate > 60, BUN/Creatinine Ratio 14, Glucose Level 76, Calcium Level 8.2L, Corrected Calcium 8.8, Total Bilirubin 0.4, Aspartate Amino Transf (AST/SGOT) 16, Alanine Aminotransferase (ALT/SGPT) 12, Alkaline Phosphatase 52, Total Protein 5.7L, Albumin 3.2 01/15/19 05:58: Glucometer 70 Assessment/Plan Assessment/Plan Assessment/Plan Small bowel obstruction s/p lysis of adhesions with resolution of obstruction CAD, HTN, DM Patient is feeling better and is passing flatus Consider advancing to clear liquid diet Encouraged ambulation and IS Clinical Quality Measures DVT/VTE Risk/Contraindication: Risk Factor Score Per Nursin RFS Level Per Nursing on Admit: 2=Moderate SUKHJINDER WALDROP DO 01/15/19 1335: Subjective Time Seen by a Provider: 13:22 Subjective/Events-last exam Pt seen and examined, states she feels 100% better. Doesn't really like the food here. Assessment/Plan Assessment/Plan Assessment/Plan Pt told to ambulate and use IS, increasesed diet, will switch to PO pain meds and try and get her home tomorrow am. Supervisory-Addendum Brief Verification & Attestation Participated in pt care: history, MDM, physical Personally performed: exam, history, MDM Care discussed with: Medical Student Procedures: n/a Verification and Attestation of Medical Student E/M Service A medical student performed and documented this service in my presence. I reviewed and verified all information documented by the medical student and made modifications to such information, when appropriate. I personally performed the physical exam and medical decision making. Sukhjinder Waldrop, Jan 15, 2019,13:35 BEBO MALDONADO,MED STUDENT Jan 15, 2019 07:36 SUKHJINDER COBOS DO Jan 15, 2019 13:35 POS
--- NOTE | 2019-01-15 08:01 | Anesthesia-General Post-Op ---
General Patient Condition Mental Status/LOC: Same as Preop Cardiovascular: Satisfactory Nausea/Vomiting: Absent Respiratory: Satisfactory Pain: Controlled Complications: Absent Post Op Complications Complications None Follow Up Care/Instructions Patient Instructions None needed. Anesthesia/Patient Condition Patient Condition Patient is doing well, no complaints, stable vital signs, no apparent adverse anesthesia problems. No complications reported per nursing. RADHIKA CAR CRNA Jan 15, 2019 08:00 POS
[2019-01-15] MEDS ORDERED: DICL1KIT14 TP (10:36)
[2019-01-15] MEDS ORDERED: ASPI-983 PO (10:46)
[2019-01-15] MEDS ORDERED: DAPA10TA PO (10:54)
[2019-01-15] MEDS: ONDANSETRON 4 MG/2 ML (SDV) Z0FRAN IV PRN (11:08)
--- NOTE | 2019-01-15 11:23 | Progress Note - Hospitalist ---
GRAY CUMMINS [facility] 01/15/19 1123: Subjective HPI/CC On Admission Date Seen by Provider: Jan 15, 2019 Time Seen by Provider: 07:41 Chief complaint: Small bowel obstruction in need of urgent surgery History of present illness: This is a 68-year-old white female clinic patient of [facility] who presented to the ER with abdominal pain found to have small bowel obstruction confirmed on CT scan. She began having increased pain and vomiting bowel contents so she was taken to urgent surgery. Subjective/Events-last exam * Pt reports feeling pretty good today * She does report having abdominal pain related to akil operation * She states that the pain she had prior to admission is completely gone * She does report having gas, but denies any BM yet * She has been able to urinate normally * She does report having a headache that she attributes to caffeine withdrawal * She reported needing less pain medication last night Review of Systems General: No Chills HEENT: Head Aches; No Visual Changes Pulmonary: No Dyspnea, No Cough Cardiovascular: No: Chest Pain, Palpitations Gastrointestinal: Abdominal Pain; No: Nausea, Vomiting Focused Exam Respiratory: Chest Non Tender, Lungs Clear, Normal Breath Sounds, No Accessory Muscle Use, No Respiratory Distress Cardiovascular: Regular Rate, Rhythm, No Edema, No Gallop, No JVD, No Murmur, Normal Peripheral Pulses Peripheral Pulses: 2+ Dorsalis Pedis (R), 2+ Left Dors-Pedis (L), 2+ Radial Pulses (R), 2+ Radial Pulses (L) Objective Exam Vital Signs Vital Signs Date Time Temp Pulse Resp B/P (MAP) Pulse Ox O2 Delivery O2 Flow Rate FiO2 01/15/19 08:00 37.4 98 18 127/73 (91) 94 Nasal Cannula 2.00 Capillary Refill : Less Than 3 SecondsLess Than 3 Seconds General Appearance: WD/WN, Mild Distress Respiratory: Chest Non Tender, Lungs Clear, Normal Breath Sounds, No Accessory Muscle Use, No Respiratory Distress Cardiovascular: Regular Rate, Rhythm, No Edema, No Gallop, No JVD, No Murmur, Normal Peripheral Pulses Extremity: No Calf Tenderness, No Pedal Edema Neurologic/Psychiatric: Alert, Oriented x3, No Motor/Sensory Deficits, Normal Mood/Affect Skin: Normal Color, Warm/Dry Results/Procedures Lab Laboratory Tests 01/15/19 05:30 Patient resulted labs reviewed. Assessment/Plan Assessment and Plan Assess & Plan/Chief Complaint Assessment: Post-op for bowel obstruction performed urgently 01/14 Pain related to surgical procedure Diabetes Sleep apnea HTN, CAD Plan: Monitor pt for bowel function return Manage pain Clear liquid diet as tolerated Manage diabetes with insulin Manage HTN Clinical Quality Measures DVT/VTE Risk/Contraindication: Risk Factor Score Per Nursin RFS Level Per Nursing on Admit: 2=Moderate JESI ALLISON DO 01/15/192102: Subjective Subjective/Events-last exam Blood sugar was low today so long acting insulin was held PT and OT will be initiated Sore in her incision line but otherwise she is doing very well Passing gas but no BM Clear liquids will be tolerated Nausea limits the advancing of clear liquids Review of Systems Gastrointestinal: Abdominal Pain Objective Exam General Appearance: No Apparent Distress, WD/WN, Chronically ill Respiratory: Lungs Clear Cardiovascular: Regular Rate, Rhythm Neurologic/Psychiatric: Alert, Oriented x3, No Motor/Sensory Deficits, Normal Mood/Affect Assessment/Plan Assessment and Plan Assess & Plan/Chief Complaint Pain control Ambulate CLD Diagnosis/Problems Diagnosis/Problems (1) Small bowel obstruction Status: Acute Supervisory-Addendum Brief Verification & Attestation Participated in pt care: history, MDM, physical Personally performed: exam, history, MDM, supervision of care Care discussed with: Medical Student Procedures: n/a Results interpretation: Verified all documentation Verification and Attestation of Medical Student E/M Service A medical student performed and documented this service in my presence. I reviewed and verified all information documented by the medical student and made modifications to such information, when appropriate. I personally performed the physical exam and medical decision making. Jesi Allison, Jan 15, 2019,21:02 GRAY CUMMINS Jan 15, 2019 11:23 JESI MCCOY DO Jan 15, 2019 21:03 POS
--- NOTE | 2019-01-15 15:16 | NUR ---
SPOKE WITH PT (SHE HAD A LIST) WENT THRU EXT MED HISTORY, AND CALLED [facility] TO COMPLETE [facility] MED REC. PT WAS ABLE TO GO OVER ALL HER MEDS WITH ME AND IT APPEARED EVERYTHING WAS CORRECT AND UP TO DATE. I AM WAITING TO HEAR BACK FROM [facility] ( [facility] WITH [facility]) TO CHECK HER LEVEMIR AND NOVOLOG TO SEE IF SHE HAS RECEIVED FROM THE REPOSITORY. I WILL TRY AND CALL BACK TOMORROW AND UPDATE MED REC AND NOTES IF NEEDED. Addendum: 01/16/19 at 1023 by YULI MARTELL [facility] GOT A HOLD OF A [facility] NURSE ABOUT THE INSULIN, THEY WENT BACK OVER A YEAR AND DID NOT SEE WHERE SHE HAD GOTTEN LEVEMIR OR NOVOLOG THRU THE REPOSITORY. THE LAST DATE [facility] HAD FOR THEM WAS ON 06-02-2018 AND SHE RECEIVED A 90 DAY SUPPLY.
[2019-01-15] MEDS: HYDROcodone/APAP 5 MG/325 MG (LORTAB) TAB PO PRN (20:16)
[2019-01-16 00:10] VITALS: BP 128/73
[2019-01-16] MEDS: HYDROcodone/APAP 5 MG/325 MG (LORTAB) TAB PO PRN ×2 (00:27→05:05)
[2019-01-16 04:15] VITALS: BP 138/76
[2019-01-16 06:20] LABS: BASOPHILS % (AUTO) 1 % (0-10); EOSINOPHILS # (AUTO) 0.3 10^3/uL (0.0-0.3); EOSINOPHILS % (AUTO) 5 % (0-10); HEMATOCRIT 33 % (35-52); HEMOGLOBIN 10.4 G/DL (11.5-16.0); LYMPHOCYTES # (AUTO) 1.3 X 10^3 (1.0-4.0); LYMPHOCYTES % (AUTO) 25 % (12-44); MEAN CORPUSCULAR HEMOGLOBIN 29 PG (25-34); MEAN CORPUSCULAR HGB CONC 31 G/DL (32-36); MEAN CORPUSCULAR VOLUME 93 FL (80-99); MEAN PLATELET VOLUME 9.8 FL (7.4-10.4); MONOCYTES # (AUTO) 0.6 X 10^3 (0.0-1.0); MONOCYTES % (AUTO) 12 % (0-12); NEUTROPHILS # (AUTO) 3.1 X 10^3 (1.8-7.8); NEUTROPHILS % (AUTO) 58 % (42-75); PLATELET COUNT 199 10^3/uL (130-400); RED CELL DISTRIBUTION WIDTH 13.5 % (10.0-14.5); WHITE BLOOD COUNT 5.3 10^3/uL (4.3-11.0)
[2019-01-16 06:38] LABS: ALANINE AMINOTRANSFERASE 14 U/L (0-55); ALBUMIN 3.3 GM/DL (3.2-4.5); ALKALINE PHOSPHATASE 55 U/L (40-136); BILIRUBIN,TOTAL 0.4 MG/DL (0.1-1.0); BUN/CREATININE RATIO 8; CALCIUM 8.3 MG/DL (8.5-10.1); CARBON DIOXIDE 25 MMOL/L (21-32); CHLORIDE 107 MMOL/L (98-107); CREATININE SERUM 0.73 MG/DL (0.60-1.30); GFR ESTIMATED > 60; GLUCOSE 125 MG/DL (70-105); POTASSIUM 3.6 MMOL/L (3.6-5.0); SODIUM 141 MMOL/L (135-145); TOTAL PROTEIN 5.8 GM/DL (6.4-8.2)
[2019-01-16] MEDS: inSUlin ASPART (NovoLOG) 1 UNIT/0.01 ML (CHARGE PER UNIT) SC SCH ×2 (06:47→11:25)
[2019-01-16 08:00] VITALS: BP 145/70
--- NOTE | 2019-01-16 08:42 | Progress Note - Surgery ---
PARAS GANDARA MED STUDENT 01/16/19 0842: Subjective Date Seen by a Provider: Jan 16, 2019 Time Seen by a Provider: 08:00 Subjective/Events-last exam Patient reports feeling much better today, was eating breakfast in her chair when I saw her. Only complaint is of sharp pain in her most superior incision site, exacerbated by exertion. It is mild pain, does not distress her or inhibit her from moving. Denies having any more lower abdominal pain, nausea, or vomiting. She feels ready to go home. Review of Systems General: No Chills; Appetite (increased from before) HEENT: No Head Aches, No Sinus Congestion, No Sore Throat Pulmonary: No Dyspnea, No Cough Cardiovascular: No: Chest Pain, Palpitations, Edema Gastrointestinal: Constipation (no BM since surgery, but increased flatus); No: Nausea, Vomiting Genitourinary: No Dysuria, No Frequency, No Hematuria Neurological: No: Weakness, Numbness Objective Exam Vital Signs Date Time Temp Pulse Resp B/P (MAP) Pulse Ox O2 Delivery O2 Flow Rate FiO2 01/16/19 04:15 36.8 84 18 138/76 (96) 92 Room Air 01/16/19 00:10 36.6 80 17 128/73 (91) 96 Room Air 01/15/19 20:00 Room Air 01/15/19 19:32 37.0 93 18 153/70 (97) 94 Room Air 01/15/19 15:53 37.0 98 20 142/62 (88) 93 Room Air 01/15/19 12:00 37.2 94 18 158/90 (112) 92 Nasal Cannula 2.00 01/15/19 09:00 37.2 94 18 158/90 (112) 92 Nasal Cannula 2.00 I & O 01/16/19 07:00 Intake Total 1270 ml Output Total 2200 ml Balance -930 ml Capillary Refill : Less Than 3 SecondsLess Than 3 Seconds General Appearance: No Apparent Distress, WD/WN Neck: Normal Inspection, Supple Respiratory: Lungs Clear, Normal Breath Sounds, No Accessory Muscle Use, No Respiratory Distress Cardiovascular: Regular Rate, Rhythm, No Edema, No Murmur, Normal Peripheral Pulses Peripheral Pulses: 2+ Dorsalis Pedis (R), 2+ Left Dors-Pedis (L), 2+ Radial Pulses (R), 2+ Radial Pulses (L) Gastrointestinal: soft, no organomegaly, no pulsatile mass, tenderness (tenderness in most superior incision) Extremity: Normal Capillary Refill, No Calf Tenderness, No Pedal Edema Neurologic/Psychiatric: Alert, Oriented x3, No Motor/Sensory Deficits, Normal Mood/Affect Skin: Normal Color, Warm/Dry Results Lab Laboratory Tests 01/15/19 08:59: Glucometer 85 01/15/19 11:43: Glucometer 114H 01/16/19 05:48: White Blood Count 5.3, Red Blood Count 3.58L, Hemoglobin 10.4L, Hematocrit 33L, Mean Corpuscular Volume 93, Mean Corpuscular Hemoglobin 29, Mean Corpuscular Hemoglobin Concent 31L, Red Cell Distribution Width 13.5, Platelet Count 199, Mean Platelet Volume 9.8, Neutrophils (%) (Auto) 58, Lymphocytes (%) (Auto) 25, Monocytes (%) (Auto) 12, Eosinophils (%) (Auto) 5, Basophils (%) (Auto) 1, Neutrophils # (Auto) 3.1, Lymphocytes # (Auto) 1.3, Monocytes # (Auto) 0.6, Eosinophils # (Auto) 0.3, Basophils # (Auto) 0.0, Sodium Level 141, Potassium Level 3.6, Chloride Level 107, Carbon Dioxide Level 25, Anion Gap 9, Blood Urea Nitrogen 6L, Creatinine 0.73, Estimat Glomerular Filtration Rate > 60, BUN/Creatinine Ratio 8, Glucose Level 125H, Calcium Level 8.3L, Corrected Calcium 8.9, Total Bilirubin 0.4, Aspartate Amino Transf (AST/SGOT) 17, Alanine Aminotransferase (ALT/SGPT) 14, Alkaline Phosphatase 55, Total Protein 5.8L, Albumin 3.3 Microbiology 01/14/19 MRSA Screen - Final, Complete MRSA not isolated Assessment/Plan Assessment/Plan Assessment/Plan Small bowel obstruction s/p lysis of adhesions with resolution of obstruction Plan for discharge today. Continue with pain management and medications for chronic conditions. Clinical Quality Measures DVT/VTE Risk/Contraindication: Risk Factor Score Per Nursin RFS Level Per Nursing on Admit: 2=Moderate SUKHJINDER GARCIA DO 01/16/19 1017: Subjective Time Seen by a Provider: 09:16 Subjective/Events-last exam Pt seen and examined, she is ready to go home Assessment/Plan Assessment/Plan Assessment/Plan D/C IV, D/C home Supervisory-Addendum Brief Verification & Attestation Participated in pt care: history, MDM, physical Personally performed: exam, history, MDM Care discussed with: Medical Student Procedures: n/a Verification and Attestation of Medical Student E/M Service A medical student performed and documented this service in my presence. I r eviewed and verified all information documented by the medical student and made modifications to such information, when appropriate. I personally performed the physical exam and medical decision making. Sukhjinder Garcia, Jan 16, 2019,10:17 PARAS GANDARA MED STUDENT Jan 16, 2019 08:42 SUKHJINDER COBOS DO Jan 16, 2019 10:17 POS
--- NOTE | 2019-01-16 10:16 | Discharge Inst-Surgical ---
Discharge Inst-Surgical Depart Medication/Instructions New, Converted or Re-Newed RX: Other (Pt should take Ibuproren or Tylenol at home for pain) Patient Instructions Follow up Appt: Make appointment for 1 week. [phone] Instructions: No lifting greater than 20 pounds. No strenuous activity. May shower in 24 hours, no tub bath or soaking. Use incentive spirometer at home as directed. No Smoking Skin/Wound Care: May remove bandages in am. You need to leave the Dermabond on incision it will fall off on it's own. Symptoms to Report: Appetite Changes, Extremity Discoloration, Numbness/Tingling, Swelling Increa sed, Bleeding Excessive, Eyesight Changes, Pain Increased, Urine Color Change, Constipation(Persistent), Fever over 101 degree F, Pain/Pressure in chest, Urinating Difficulty, Cough Up/Vomit Blood, Heart Beat Irreg/Pounding, Pain/Pressure in jaw, Cramps in feet or legs, Lightheadedness, Pain/Pressure in shoulder, Diarrhea(Persistent), Memory Changes Suddenly, Questions/Concerns, We ight gain consecutive days, Dizziness/Fainting, Nausea/Vomiting, Shortness of Breath, Weight gain over 2 pounds If questions or concerns contact your physician Or seek help at emergency department. Activity Activity as Tolerated: Yes Activity Instructions: Avoid Stress to Incision Driving Instructions: No Driving/Refer to Dr. Grady Discharge Diet: No Restrictions Diet After 24 Hours: Clear Liquid if Nauseous If Any Problems/Questions/Issu: Contact Your Physician, Go to Emergency Room Skin/Wound Care Infection Signs and Symptoms: Increased Redness, Foul Odor of Wound, Increased Drainage, Skin Itchy or Has a Rash, Increased Swelling, Temperature Above 101 F Bathing Instructions: Shower Stitches/Sea/Dermabond Dis: Dermabond HUNTER GARCIA DO Jan 16, 2019 10:16 POS
--- NOTE | 2019-01-16 10:52 | Discharge Summary ---
[facility] 01/16/19 1052: Diagnosis/Chief Complaint Date of Admission Jan 13, 2019 at 23:35 Date of Discharge Admission Diagnosis Assessment: SBO in need of urgent surgery Plan: OR Primary Care Tita Olivia Discharge Diagnosis (1) Small bowel obstruction Status: Acute Discharge Summary Discharge Physical Exam Allergies: Coded Allergies: NSAIDS (Non-Steroidal Anti-Inflamma (Verified Allergy, Unknown, 09/29/18) Penicillins (Verified Allergy, Unknown, Nausea, 09/29/18) adhesive tape (Verified Allergy, Unknown, Hives, 09/29/18) codeine (Verified Allergy, Unknown, 09/29/18) Vitals & I&Os Vital Signs Date Time Temp Pulse Resp B/P (MAP) Pulse Ox O2 Delivery O2 Flow Rate FiO2 01/16/19 09:00 Room Air 01/16/19 08:00 36.6 85 18 145/70 (95) 95 01/15/19 12:00 2.00 General Appearance: No Apparent Distress, WD/WN Respiratory: Chest Non Tender, Lungs Clear, Normal Breath Sounds, No Accessory Muscle Use, No Respiratory Distress Cardiovascular: Regular Rate, Rhythm, No Edema, No Gallop, No JVD, No Murmur, Normal Peripheral Pulses Gastrointestinal: Normal Bowel Sounds, Soft, Tenderness (Mild tenderness around surgical sites) Extremity: Normal Inspection, Normal Range of Motion, Non Tender, No Calf Tenderness, No Pedal Edema Skin: Normal Color, Warm/Dry Neurologic/Psychiatric: Alert, Oriented x3, No Motor/Sensory Deficits, Normal Mood/Affect Hospital Course Pt was admitted from the ER and taken urgently to the operating room for a small bowel obstruction. After the operation she had some abdominal tenderness around the surgical incision sites, but was able to walk around unassisted the next day. She was able to eat clear liquid diets the next day, and was cleared for regular diet the second day post op. She was discharged to home after being cleared by general surgery. Labs (last 24 hrs) Laboratory Tests 01/15/19 11:43: Glucometer 114H 01/16/19 05:48: White Blood Count 5.3, Red Blood Count 3.58L, Hemoglobin 10.4L, Hematocrit 33L, Mean Corpuscular Volume 93, Mean Corpuscular Hemoglobin 29, Mean Corpuscular Hemoglobin Concent 31L, Red Cell Distribution Width 13.5, Platelet Count 199, Mean Platelet Volume 9.8, Neutrophils (%) (Auto) 58, Lymphocytes (%) (Auto) 25, Monocytes (%) (Auto) 12, Eosinophils (%) (Auto) 5, Basophils (%) (Auto) 1, Neutrophils # (Auto) 3.1, Lymphocytes # (Auto) 1.3, Monocytes # (Auto) 0.6, Eosinophils # (Auto) 0.3, Basophils # (Auto) 0.0, Sodium Level 141, Potassium Level 3.6, Chloride Level 107, Carbon Dioxide Level 25, Anion Gap 9, Blood Urea Nitrogen 6L, Creatinine 0.73, Estimat Glomerular Filtration Rate > 60, BUN/Creatinine Ratio 8, Glucose Level 125H, Calcium Level 8.3L, Corrected Calcium 8.9, Total Bilirubin 0.4, Aspartate Amino Transf (AST/SGOT) 17, Alanine Aminotransferase (ALT/SGPT) 14, Alkaline Phosphatase 55, Total Protein 5.8L, Albumin 3.3 Microbiology 01/14/19 MRSA Screen - Final, Complete MRSA not isolated Patient resulted labs reviewed. Pending Labs Laboratory Tests 01/16/19 05:48: White Blood Count 5.3, Red Blood Count 3.58, Hemoglobin 10.4, Hematocrit 33, Mean Corpuscular Volume 93, Mean Corpuscular Hemoglobin 29, Mean Corpuscular Hemoglobin Concent 31, Red Cell Distribution Width 13.5, Platelet Count 199, Mean Platelet Volume 9.8, Neutrophils (%) (Auto) 58, Lymphocytes (%) (Auto) 25, Monocytes (%) (Auto) 12, Eosinophils (%) (Auto) 5, Basophils (%) (Auto) 1, Neutrophils # (Auto) 3.1, Lymphocytes # (Auto) 1.3, Monocytes # (Auto) 0.6, Eosinophils # (Auto) 0.3, Basophils # (Auto) 0.0, Sodium Level 141, Potassium Level 3.6, Chloride Level 107, Carbon Dioxide Level 25, Anion Gap 9, Blood Urea Nitrogen 6, Creatinine 0.73, Estimat Glomerular Filtration Rate > 60, BUN/Creatinine Ratio 8, Glucose Level 125, Calcium Level 8.3, Corrected Calcium 8.9, Total Bilirubin 0.4, Aspartate Amino Transf (AST/SGOT) 17, Alanine Aminotransferase (ALT/SGPT) 14, Alkaline Phosphatase 55, Total Protein 5.8, Albumin 3.3 Discharge Home Medications: Active Scripts Active Reported Farxiga (Dapagliflozin Propanediol) 10 Mg Tablet 10 Mg PO DAILY Aspirin EC (Aspirin) 81 Mg Tablet.dr 81 Mg PO DAILY Diclo Gel (Diclofenac Sodium) 1 Each Kit 1 Each TP TID PRN Buspirone HCl 10 Mg Tablet 20 Mg PO BID TAKES 2 (10MG) TAB TWICE DAILY Gabapentin 800 Mg Tablet 1,200 Mg PO BID take 1 & 1/2 (800mg) tab twice daily Ozempic (Semaglutide) 1 Mg/0.75 Ml Pen.injctr 1 Mg SQ WEEK takes on Tuesday Dr 20,000 Units Capsule (Lipase/Protease/Amylase) 1 Each Capsule.dr 1 Each PO AC FOUR TIMES DAILY BEFORE MEALS AND SNACK Prozac (Fluoxetine HCl) 20 Mg Capsule 20 Mg PO DAILY Quinapril HCl 20 Mg Tablet 20 Mg PO DAILY Novolog Flexpen (Insulin Aspart) 300 Units/3 Ml Solution 35 Units SQ AC Oxybutynin Chloride ER (Oxybutynin Chloride) 5 Mg Tab.er.24 5 Mg PO BID Metformin HCl 500 Mg Tablet 1,000 Mg PO BID take 2 (500MG) TABS Metoprolol Tartrate 50 Mg Tablet 50 Mg PO BID Pantoprazole Sodium 40 Mg Tablet.dr 40 Mg PO DAILY Levemir (Insulin Determir) 1,000 Units/10 Ml Soln 65 Units SQ BID Lipitor (Atorvastatin Calcium) 40 Mg Tablet 40 Mg PO HS Effexor Xr (Venlafaxine HCl) 150 Mg Cap.er.24h 150 Mg PO HS Instructions to patient/family Please see electronic discharge instructions given to patient. Clinical Quality Measures DVT/VTE Risk/Contraindication: Risk Factor Score Per Nursin RFS Level Per Nursing on Admit: 2=Moderate JESI ALLISON DO 01/16/19 2020: Diagnosis/Chief Complaint Discharge Diagnosis (1) Small bowel obstruction Status: Acute Discharge Summary Discharge Physical Exam Allergies: Coded Allergies: NSAIDS (Non-Steroidal Anti-Inflamma (Verified Allergy, Unknown, 09/29/18) Penicillins (Verified Allergy, Unknown, Nausea, 09/29/18) adhesive tape (Verified Allergy, Unknown, Hives, 09/29/18) codeine (Verified Allergy, Unknown, 09/29/18) General Appearance: No Apparent Distress, WD/WN Respiratory: Lungs Clear Cardiovascular: Regular Rate, Rhythm Neurologic/Psychiatric: Alert, Oriented x3, No Motor/Sensory Deficits, Normal Mood/Affect Hospital Course Was the Problem List Reviewed?: Yes Hospital course: Pt had an uncomplicated hospital course. She was deemed in need of urgent surgery for small bowel obstruction and that was urgently managed by Dr. Waldrop in an uncomplicated surgery. She regained bowel function, pain was well controlled, and Pt was deemed stable for discharge. Discussion & Recommendations Discharge Planning: <30 minutes discharge planning Supervisory-Addendum Brief Verification & Attestation Participated in pt care: history, MDM, physical Personally performed: exam, history, MDM, supervision of care Care discussed with: Medical Student Procedures: n/a Results interpretation: Verified all documentation Verification and Attestation of Medical Student E/M Service A medical student performed and documented this service in my presence. I reviewed and verified all information documented by the medical student and made modifications to such information, when appropriate. I personally performed the physical exam and medical decision making. Jesi Allison, Jan 16, 2019,20:21 [facility] Jan 16, 2019 10:52 JESI MCCOY DO Jan 16, 2019 20:20 POS
[2019-01-16 12:00] VITALS: BP 156/72
[2019-01-16] MEDS: LACTATED RINGERS 1,000 ML IV SCH (13:32)
--- NOTE | 2019-01-16 16:16 | NUR ---
RD ASSESSMENT PMHx: CAD; CT; hypercholesterolemia; HTN; GERD; DM; chronic constipation; chronic diarrhea; diverticulosis PT INTERACTION: Pt was awake and pleasant during nutrition assessment. Pt states current appetite is "getting better," as it had been poor since 01/13. Pt states following a ADA diet at home, and currently has no issues with chewing/swallowing at this time. Note pt currently wears dentures. Pt states some recent issues with n/v, but these have subsided since her surgery. Pt states no issues with c/d since her surgery. Note no BM has been recorded and pt not currently on bowel regimen per chart review. Pt states no recent wt changes. Note unable to determine recent wt hx, per chart review. ABNORMAL NUTRITION-RELATED LAB VALUES: BUN 6 (L); Ca 8.3 (L); Pro 5.6 (L); glu 125 (L) Est. kcal needs: 7642-4318 kcal (20-25 kcal/kg) Est. Pro needs: 85-102 g Pro (1.0-1.2 g Pro/kg) PES STATEMENT: Inadequate oral intake (NI-2.1) related to nausea | vomiting | loss of appetite as evidenced by pt interview | <25% meals x1d INTERVENTION: Continue with current diet order of CHO 60g/m 0snack diet. Encouraged pt to eat when able. MONITOR/EVALUATE: PO Intake; Plan of Care; Hydration Status; Weight Status; Lab Values Yvonne Abel, MS, RD, LD Ext. 133
== END 2019-01-16 16:00 | disposition home or self-care (01) | DRG 336 ==
LOC: EDUNIT# 19:57 → ER FS 19:58 → 4TH 23:35
PROVIDERS: ADMIT Internal Medicine; ATTEND Internal Medicine
PROC: 8E0W4CZ Robotic Assisted Procedure of Trunk Region, Percutaneous Endoscopic Approach (ICD-10-PCS; principal; 2019-01-14 12:24)
PROC: 0DN84ZZ Release Small Intestine, Percutaneous Endoscopic Approach (ICD-10-PCS; principal; 2019-01-14 12:24)
PROC: 0DNU3ZZ Release Omentum, Percutaneous Approach (ICD-10-PCS; principal; 2019-01-14 12:24)
DX: K46.0 Unspecified abdominal hernia with obstruction, without gangrene (principal); K56.51 Intestinal adhesions [bands], with partial obstruction; I10 Essential (primary) hypertension; G47.30 Sleep apnea, unspecified; I25.10 Atherosclerotic heart disease of native coronary artery without angina pectoris; E78.00 Pure hypercholesterolemia, unspecified; E11.40 Type 2 diabetes mellitus with diabetic neuropathy, unspecified; K21.9 Gastro-esophageal reflux disease without esophagitis; M54.9 Dorsalgia, unspecified; G89.29 Other chronic pain; M19.90 Unspecified osteoarthritis, unspecified site; F41.9 Anxiety disorder, unspecified; F32.9 Major depressive disorder, single episode, unspecified; E66.9 Obesity, unspecified; Z79.4 Long term (current) use of insulin; Z90.49 Acquired absence of other specified parts of digestive tract; Z90.710 Acquired absence of both cervix and uterus; I25.2 Old myocardial infarction; Z68.28 Body mass index [BMI] 28.0-28.9, adult; G43.909 Migraine, unspecified, not intractable, without status migrainosus
CPT/HCPCS: 36415; 74177; 80053; 82962; 83690; 85025; 87081

== ENCOUNTER → 2019-01-23 | Outpatient (CLI) | payer MEDICARE ==
[~2019-01-23] MED LIST changes: +ASPI-983 PO; +DAPA10TA PO; +DICL1KIT14 TP
[2019-01-23 10:48] LABS: ALANINE AMINOTRANSFERASE 25 U/L (0-55); ALBUMIN 3.9 GM/DL (3.2-4.5); ALKALINE PHOSPHATASE 68 U/L (40-136); BILIRUBIN,TOTAL 0.3 MG/DL (0.1-1.0); BUN/CREATININE RATIO 9; CALCIUM 8.4 MG/DL (8.5-10.1); CARBON DIOXIDE 24 MMOL/L (21-32); CHLORIDE 106 MMOL/L (98-107); CHOLESTEROL 119 MG/DL (< 200); CREATININE SERUM 0.78 MG/DL (0.60-1.30); GFR ESTIMATED > 60; GLUCOSE 82 MG/DL (70-105); HDL CHOLESTEROL 38 MG/DL (40-60); POTASSIUM 4.1 MMOL/L (3.6-5.0); SODIUM 139 MMOL/L (135-145); TRIGLYCERIDES 161 MG/DL (<150); VLDL CHOLESTEROL 32 MG/DL (5-40)
== END ==
LOC: LAB 09:53
PROVIDERS: ATTEND Physician Assistant
DX: I25.10 Atherosclerotic heart disease of native coronary artery without angina pectoris (principal); I10 Essential (primary) hypertension; E78.5 Hyperlipidemia, unspecified
CPT/HCPCS: 36415; 80053; 80061

== ENCOUNTER → 2019-11-23 | Outpatient (CLI) | payer MEDICARE ==
[~2019-11-23] MED LIST changes: +ASPI-1238 PO; -ASPI-983 PO; +OXYB-52 PO; -OXYB5TAB PO; +OXYB5TAB13 PO; +TRM50T PO
--- NOTE | 2019-11-23 17:52 | Diagnostic Imaging Report ---
EXAMINATION: Magnetic resonance imaging of the right shoulder without contrast. DATE: November 23, 2019. COMPARISON: Right shoulder radiographs December 04, 2017. MRI right shoulder November 12, 2016. HISTORY: 69-year-old female, right shoulder pain. TECHNIQUE: Magnetic Resonance Imaging sequences were performed of the shoulder without contrast. FINDINGS: ROTATOR CUFF, LIGAMENTS, TENDONS, AND MUSCLES: The supraspinatus, infraspinatus, teres minor, and subscapularis tendons and muscles are intact. There is normal rotator cuff muscle bulk and signal. LONG HEAD OF BICEPS: The biceps labral attachment and long head of the biceps tendon is intact. The long head of the biceps tendon is normally positioned within the bicipital groove. GLENOHUMERAL JOINT: The humeral head is well positioned relative to the glenoid. The labrum is grossly intact. There is no identified paralabral cyst. There is mild glenohumeral cartilage thinning. There is an osteophyte extending off the inferior aspect of the humeral head. There is no large glenohumeral joint effusion. ACROMIOCLAVICULAR JOINT: There is widening of the acromioclavicular joint. The coracoclavicular and coracoacromial ligaments are intact. There are mild acromioclavicular degenerative related findings without undersurface osteophyte. BONE: There is no os acromiale. There is no Hill-Sachs deformity. There is no acute fracture, bone contusion or evidence of osteonecrosis. BURSAE AND SOFT TISSUES: The bursae and soft tissue surrounding the shoulder are unremarkable. IMPRESSION: 1. Intact rotator cuff and proximal long head of biceps tendon. 2. Widening of the right acromioclavicular joint which may be post procedural related or secondary to prior acromioclavicular separation injury. The coracoclavicular and coracoacromial ligaments are intact. 3. Mild acromioclavicular degenerative changes without undersurface osteophyte. 4. Mild glenohumeral osteoarthritis. 5. No acute fracture, bone contusion or evidence of osteonecrosis. Dictated by: Dictated on workstation # [id number]
== END ==
LOC: RAD 13:58
PROVIDERS: ATTEND Orthopaedic Surgery
DX: M19.011 Primary osteoarthritis, right shoulder (principal)
CPT/HCPCS: 73221

== ENCOUNTER → 2019-12-14 | Outpatient (CLI) | payer MEDICARE ==
[~2019-12-14] MED LIST changes: -PANT40TA3 PO; +PANT40TA52 PO
== END ==
LOC: LAB FS 11:21
PROVIDERS: ATTEND Orthopaedic Surgery
DX: Z01.812 Encounter for preprocedural laboratory examination (principal); Z20.828 Contact with and (suspected) exposure to other viral communicable diseases
CPT/HCPCS: 87635

== ENCOUNTER → 2020-09-08 | Outpatient (CLI) | payer MEDICARE ==
[~2020-09-08] MED LIST changes: +DICL100G13 TP; -DICL100G31 TP
== END ==
LOC: CARD 11:17
PROVIDERS: ATTEND Internal Medicine Cardiovascular Disease
DX: I10 Essential (primary) hypertension (principal); I25.10 Atherosclerotic heart disease of native coronary artery without angina pectoris
CPT/HCPCS: 93306

== ENCOUNTER → 2020-10-20 | Outpatient (CLI) | payer MEDICARE ==
[~2020-10-20] MED LIST changes: +REGADENOSON 0.4 MG/5 ML SYR (LEXISCAN) IV ONE
[2020-10-20] MEDS: CATHETER FLUSH 10 ML SYR IV PRN ×2 (08:25→09:43)
[2020-10-20 09:40] VITALS: BP 154/93
--- NOTE | 2020-10-20 12:33 | Cardiology Stress Test Report ---
Stress Test Report Date of Procedure/Referring: Date of Procedure: Oct 20, 2020 PCP Kacie Harrington MD Admitting Physician Center/[facility] Indications: CP Baseline Heart Rate: 94 Baseline Blood Pressure: Blood Pressure Systolic: 154 Blood Pressure Diastolic: 93 Baseline Vitals Vital Signs Date Time Temp Pulse Resp B/P (MAP) Pulse Ox O2 Delivery O2 Flow Rate FiO2 10/20/20 09:40 96 16 154/93 (113) 93 Room Air Baseline EKG: Baseline EKG: NSR Summary After explaining the procedure to the patient, she signed a consent and then brought to the stress nuclear laboratory. Patient received 0.4 mg Lexiscan for stress test, ECG, heart rate and blood pressure were monitored continuously. Resting and stress dose of radio tracer were injected, imaging was acquired and reviewed in short axis, horizontal long axis and vertical long axis views. TID: 1.02 SSS: 6 SDS: 4 EF: 55 1. Patient tolerated Lexiscan well 2. No EKG changes with Lexiscan injection 3. Breast attenuation with mild decreased uptake at the basal to mid anterior septum with mild reversibility most probably due to breast attenuation, no significant ischemia was noted 4. Normal left ventricular size, EF 55% KACIE HARRINGTON MD Oct 20, 2020 12:33
== END ==
LOC: CARD 08:30
PROVIDERS: ATTEND Internal Medicine Cardiovascular Disease
DX: I25.10 Atherosclerotic heart disease of native coronary artery without angina pectoris (principal); I10 Essential (primary) hypertension
CPT/HCPCS: 78452; 93017; A9502

== ENCOUNTER 2021-04-01 08:54 | Day surgery (SDC) | payer MEDICARE ==
[2021-04-01] VITALS (8 sets, daily range): BP systolic 108–176; BP diastolic 64–116
[~2021-04-01] VITALS: Ht 167.6 cm; Wt 89.5 kg
[~2021-04-01 08:54] MED LIST changes: +CYCL10TA25 PO; -CYCL10TA9 PO; +NS IV 1000 ML 1,000 ML IV SCH; -REGADENOSON 0.4 MG/5 ML SYR (LEXISCAN) IV ONE
[2021-04-01] MEDS ORDERED: NS IV 1000 ML 1,000 ML ONE (09:05)
[2021-04-01] MEDS ORDERED: LIDOCAINE 1% INJ 20 ML VIAL ONE (09:05)
[2021-04-01] MEDS ORDERED: HEParin (CATH LAB) 2,000 ML IV ONE (09:05)
[2021-04-01] MEDS ORDERED: NS IV 1000 ML 1,000 ML IV SCH ×2 (09:15→12:00)
[2021-04-01 09:43] LABS: PROTHROMBIN TIME PATIENT 13.3 SEC (12.2-14.7)
--- NOTE | 2021-04-01 09:43 | Diagnostic Imaging Report ---
INDICATION: Preop for heart catheterization. TIME OF EXAM: 9:23 AM. COMPARISON: Correlation is made with the prior chest from 10/11/2013. FINDINGS: The heart size is normal and the lungs are clear. The pulmonary vascularity is normal. There is no effusion or pneumothorax. Postop changes to the right shoulder as well as the cervical spine. IMPRESSION: No acute cardiopulmonary process is detected. Dictated by: Dictated on workstation # [id number]
[2021-04-01 09:51] LABS: ALBUMIN 4.1 GM/DL (3.2-4.5); BILIRUBIN,TOTAL 0.3 MG/DL (0.1-1.0); CALCIUM 9.2 MG/DL (8.5-10.1); CREATININE SERUM 0.98 MG/DL (0.60-1.30); POTASSIUM 4.1 MMOL/L (3.6-5.0); TOTAL PROTEIN 7.8 GM/DL (6.4-8.2)
[2021-04-01] MEDS ORDERED: NITRO DRIP 25000 MCG/D5W 250 ML IV ONE (11:14)
[2021-04-01] MEDS ORDERED: HEParin 1000 UNIT/ML (10ML VIAL) FOR BOLUS ONE (11:14)
[2021-04-01] MEDS ORDERED: VERAPAMIL 5 MG/2 ML (CALAN) VIAL IV ONE (11:14)
[2021-04-01] MEDS ORDERED: fentaNYL INJ 100 MCG/2 ML AMP ONE (11:14)
[2021-04-01] MEDS ORDERED: MIDAZOLAM 5 MG/5 ML (VERSED) VIAL ONE (11:14)
[2021-04-01 11:38] LABS: HEMATOCRIT 36 % (35-52); HEMOGLOBIN 10.6 g/dL (11.5-16.0); MEAN CORPUSCULAR HEMOGLOBIN 27 pg (25-34); MEAN CORPUSCULAR HGB CONC 30 g/dL (32-36); MEAN CORPUSCULAR VOLUME 89 fL (80-99); MEAN PLATELET VOLUME 9.8 fL (9.0-12.2); PLATELET COUNT 314 10^3/uL (130-400); WHITE BLOOD COUNT 6.3 10^3/uL (4.3-11.0)
--- NOTE | 2021-04-01 12:02 | Conscious Sedation/ASA ---
Conscious Sedation Pre-Proced Time 11:00 ASA Score 3 For ASA 3 and 4: Consider anesthesia and medical clearance. Also, for patients with a history of failed moderate sedation consider anesthesia. Airway Lungs Heart ASA score ASA 1: a normal healthy patient ASA 2: a patient with a mild systemic disease (mid diabetes, controlled hypertension, obesity x ASA 3: a patient with a severe systemic disease that limits activity (angina, COPD, prior Myocardial infarction) ASA 4: a patient with an incapacitating disease that is a constant threat to life (CHF, renal failure) ASA 5: a moribund patient not expected to survive 24 hrs. (ruptured aneurysm) ASA 6: a declared brain- patient whose organs are being harvested. For emergent operations, add the letter E after the classification Mallampati Classification Grade 3 Sedation Plan Analgesia, Amnesia, Plan communicated to team members, Discussed options with patient/fam, Discussed risks with patient/fam The patient is an appropriate candidate to undergo the planned procedure, sedation, and anesthesia. The patient immediately re-assessed prior to indication. KACIE MCCAULEY MD Apr 01, 2021 12:02
--- NOTE | 2021-04-01 12:05 | Cardiac Cath Report ---
Cardiac Cath Report Physician (s)/Pulmonologist Intensivist (s) Physician KACIE MCCAULEY MD Pre-Procedure Diagnosis Pre-Procedure Diagnosis: Coronary artery disease Post-Procedure Note Procedure Start Date: Apr 01, 2021 Name of Procedure: Left heart catheterization FFR to LAD Findings/Procedure Note PROCEDURE NOTE: 70-year-old lady with history of coronary artery disease multiple intervention in the past, had an abnormal stress test, scheduled for cardiac catheterization possible PTCA. After explaining the procedure to the patient, all pros and cons were explained, all questions were answered. The patient signed the consent and then she was placed on the cardiac catheterization laboratory. Groin was prepped SL fashion local anesthesia was used. Sheath placed in the right radial artery, [place] catheter was advanced to the left ventricular cavity, pressure was measured, pullback LV to aorta was done, engaged the right and left coronary system, angiogram was done. Patient had multiple stents in the proximal and mid LAD, there is an area of moderate stenosis, I decided to evaluate FFR, I exchanged the catheter and used EBU 3.5 guide and advanced PressureWire through the LAD, FFR at baseline was 0.95. Did not do adenosine challenge At the end of the procedure the sheath was removed. Vascular band was used FINDINGS: Hemodynamics LV 147/17, end-diastolic pressure of 17 Aorta 138/85 mean of 106 ANATOMY: Left Main is free of obstructive disease Left Anterior Descending has multiple stents at the proximal and mid LAD, there is an area within the middle of the stent that has moderate stenosis, FFR was 0.95. Left Circumflex is moderate in size with patent stents, mild disease distally nonobstructive disease Right Coronary Artery has mild disease nonobstructive disease LV Gram was not done, pressure was measured CONCLUSION: 1. Patent stent in the proximal and mid LAD with moderate in-stent restenosis, FFR was 0.95. 2. Patent stent in the mid circumflex artery with mild disease distally 3. Mild disease in the right coronary artery nonobstructive disease 4. Normal left ventricular end-diastolic pressure DISCUSSION AND RECOMMENDATION: Medical therapy is recommended no intervention is needed Anesthesia Type: Conscious Sedation Estimated blood loss (mL): 15 ml Contrast Amount: 76 ml Total Radiation Dose: 631 mGy Post-Procedure Diagnosis Post-operative diagnosis: Chest pain Coronary artery disease Hypertension Hyperlipidemia KACIE MCCAULEY MD Apr 01, 2021 12:05
[2021-04-01] MEDS ORDERED: METF-397 PO (12:07)
[2021-04-01] MEDS ORDERED: EZET10TA17 PO (12:07)
--- NOTE | 2021-04-01 12:07 | Discharge Inst-Post CATH ---
Discharge Inst-CATH/EP Problems Reviewed?: Yes Post Cardiac Cath/EP D/C Inst Follow Up/Plan Hold metformin for [address] Harrington's office in 2 to 4 weeks <b>CARDIAC CATH/EP PROCEDURE DISCHARGE INSTRUCTIONS</b> ACTIVITY * Go Home directly and rest. * Limit activity of the leg (or wrist if it was used) for 7 days including aerobics, swimming, jogging, bicycling, etc. * Restrict stair-climbing for 7 days if possible, if not, climb up with your non-cath leg, then bring together on the same step. * Avoid lifting, pushing, pulling or excessive movement of the affected extremity for 7 days. * Customary sexual activity may be resumed after 2 days-use caution not to use a position that strains or causes pain to the affected extremity. * No driving for 24 hours. * NO SMOKING. * Avoid straining for bowel movements for 7 days. * Gentle walking on level ground is allowed. * Returning to work will depend on the type of procedure and the results. Your doctor will discuss this with you. CALL YOUR DOCTOR FOR ANY OF THE FOLLOWING: *If bleeding from the puncture site occurs- Apply gentle pressure to site with clean cloth and call your doctor or EMS. * If a knot or lump forms under the skin, increases in size, or causes pain. * If bruising appears to be worsening or moving further down your leg instead of disappearing. * Temperature above 101 F. CARE OF YOUR GROIN INCISION; * Bruising or purple discoloration of the skin near the puncture site is common. * You may shower only, no bathtub bathing for 5 days. Be careful to avoid slipping as your leg may feel stiff. * If a closure device was used on your femoral artery, please see the attached guide regarding care of the device and your leg. * Leave dressing on FOR 24 hours. CARE OF YOUR WRIST INCISION; * Bruising or purple discoloration of the skin near the puncture site is common. * You may shower. * DO NOT submerge wrist. * Leave dressing on FOR 24 hours. KACIE HARRINGTON MD Apr 01, 2021 12:07
== END 2021-04-01 14:27 | disposition home or self-care (01) ==
LOC: CATH 08:54 → SDC 12:17 → CATH 14:27
PROVIDERS: ATTEND Internal Medicine Cardiovascular Disease
DX: I25.10 Atherosclerotic heart disease of native coronary artery without angina pectoris (principal); I10 Essential (primary) hypertension; E78.5 Hyperlipidemia, unspecified
CPT/HCPCS: 71045; 80053; 80061; 85027; 85610; 85730; 87081; 93458; 93571; C1769; C1887; C1894; 36415

== ENCOUNTER → 2021-12-28 | Outpatient (CLI) | payer MEDICARE ==
[~2021-12-28] MED LIST changes: +EZET10TA17 PO; -NS IV 1000 ML 1,000 ML IV SCH; -QUIN20TA16 PO; +QUIN20TA36 PO; -VENL150C PO; +VENL150C3 PO
[2021-12-28 14:05] LABS: BASOPHILS % (AUTO) 1 % (0-10); EOSINOPHILS # (AUTO) 0.4 10^3/uL (0.0-0.3); EOSINOPHILS % (AUTO) 6 % (0-10); HEMATOCRIT 34 % (35-52); HEMOGLOBIN 10.3 g/dL (11.5-16.0); LYMPHOCYTES % (AUTO) 27 % (12-44); MEAN CORPUSCULAR HEMOGLOBIN 26 pg (25-34); MEAN CORPUSCULAR HGB CONC 31 g/dL (32-36); MEAN CORPUSCULAR VOLUME 85 fL (80-99); MEAN PLATELET VOLUME 9.9 fL (9.0-12.2); MONOCYTES # (AUTO) 0.5 10^3/uL (0.0-1.0); MONOCYTES % (AUTO) 6 % (0-12); NEUTROPHILS # (AUTO) 4.5 10^3/uL (1.8-7.8); NEUTROPHILS % (AUTO) 61 % (42-75); PLATELET COUNT 255 10^3/uL (130-400); WHITE BLOOD COUNT 7.5 10^3/uL (4.3-11.0)
[2021-12-28 14:40] LABS: CREATININE SERUM 0.91 MG/DL (0.60-1.30); POTASSIUM 4.6 MMOL/L (3.6-5.0)
[2021-12-28 14:41] LABS: ALBUMIN 4.1 GM/DL (3.2-4.5); BILIRUBIN,TOTAL 0.2 MG/DL (0.1-1.0); TOTAL PROTEIN 7.5 GM/DL (6.4-8.2)
--- NOTE | 2021-12-28 16:43 | Diagnostic Imaging Report ---
Indication: Fall on right knee pain. Time of Exam: 2:10 PM 3 views of the right knee were obtained. There is medial and patellofemoral compartmental degenerative change with joint space narrowing and marginal spurring. No fracture or dislocation is identified. There is a very small joint effusion. Femoral-popliteal vascular calcifications are noted. IMPRESSION: Degenerative changes and small effusion. No acute bony abnormality is detected. Dictated by: Dictated on workstation # [id number]
== END ==
LOC: LAB FS 13:42
PROVIDERS: ATTEND Nurse Practitioner Family
DX: M25.561 Pain in right knee (principal); R42 Dizziness and giddiness; R55 Syncope and collapse; W19.XXXA Unspecified fall, initial encounter
CPT/HCPCS: 36415; 73562; 80053; 85025

== ENCOUNTER 2022-03-15 12:36 | Emergency (ER) | payer MEDICARE ==
[2022-03-15] MEDS ORDERED: NS IV 1000 ML 1,000 ML ONE (12:59)
[2022-03-15] MEDS ORDERED: NS IV 1000 ML 1,000 ML IV SCH (13:00)
--- NOTE | 2022-03-15 13:03 | Diagnostic Imaging Report ---
INDICATION: Chest pain. COMPARISON: 04/20/2016. FINDINGS: The lungs are clear. No failure, effusion, or pneumothorax. IMPRESSION: No acute appearing abnormality. Dictated by: Dictated on workstation # [id number]
[2022-03-15 13:06] LABS: BASOPHILS % (AUTO) 0 % (0-10); EOSINOPHILS # (AUTO) 0.1 10^3/uL (0.0-0.3); EOSINOPHILS % (AUTO) 2 % (0-10); HEMATOCRIT 38 % (35-52); HEMOGLOBIN 12.6 g/dL (11.5-16.0); LYMPHOCYTES # (AUTO) 1.4 10^3/uL (1.0-4.0); LYMPHOCYTES % (AUTO) 21 % (12-44); MEAN CORPUSCULAR HEMOGLOBIN 28 pg (25-34); MEAN CORPUSCULAR HGB CONC 33 g/dL (32-36); MEAN CORPUSCULAR VOLUME 85 fL (80-99); MEAN PLATELET VOLUME 10.5 fL (9.0-12.2); MONOCYTES # (AUTO) 0.4 10^3/uL (0.0-1.0); MONOCYTES % (AUTO) 6 % (0-12); NEUTROPHILS # (AUTO) 4.8 10^3/uL (1.8-7.8); NEUTROPHILS % (AUTO) 70 % (42-75); PLATELET COUNT 235 10^3/uL (130-400); WHITE BLOOD COUNT 6.8 10^3/uL (4.3-11.0)
[2022-03-15 13:18] LABS: BILIRUBIN,URINE NEGATIVE (NEGATIVE); CLARITY,URINE CLEAR; COLOR,URINE YELLOW; GLUCOSE, URINE (UA) 3+ (NEGATIVE); KETONES,URINE TRACE (NEGATIVE); LEUKOCYTE ESTERASE ,URINE NEGATIVE (NEGATIVE); NITRITE,URINE POSITIVE (NEGATIVE); PROTEIN,URINE NEGATIVE (NEGATIVE)
[2022-03-15 13:29] LABS: BACTERIA,URINE LARGE /HPF
[2022-03-15 13:30] LABS: YEAST,URINE FEW /HPF
[2022-03-15 13:34] LABS: ALANINE AMINOTRANSFERASE 38 U/L (0-55); ALBUMIN 3.9 GM/DL (3.2-4.5); ALKALINE PHOSPHATASE 100 U/L (40-136); BILIRUBIN,TOTAL 0.4 MG/DL (0.1-1.0); BUN/CREATININE RATIO 9; CALCIUM 9.2 MG/DL (8.5-10.1); CARBON DIOXIDE 25 MMOL/L (21-32); CHLORIDE 95 MMOL/L (98-107); CREATININE SERUM 0.85 MG/DL (0.60-1.30); GFR ESTIMATED 74; POTASSIUM 3.9 MMOL/L (3.6-5.0); SODIUM 133 MMOL/L (135-145); TOTAL PROTEIN 7.1 GM/DL (6.4-8.2)
[2022-03-15 13:36] LABS: GLUCOSE 579 MG/DL (70-105)
[2022-03-15] MEDS ORDERED: inSUlin (REGULAR) HUMAN 1 UNIT/0.01 ML (CHARGE PER UNIT) SC ONE (14:00)
--- NOTE | 2022-03-15 14:07 | ED General ---
General Chief Complaint: Glucose Problems Stated Complaint: ELEV GLUC; DEHYDRATION; COVID+ Nursing Triage Note: PT REPORT SHE MIS BEEN ILL FOR ABOUT 2 WEEKS. SHE HAS NOT TAKEN INSULIN FOR 2 WEEKS BECAUSE SHE WAS NOT EATING ALTHOUGH HER GLUCOSE MONITOR WAS READING HIGH. SHE WENT TO [facility] TODAY AND WAS TESTED FOR COVID AND SHE WAS POSITIVE. SHE RECEIVED A LITER OF NS AT [facility] BUT HER GLUCOSE WAS STILL READING HIGH. Source of Information: Patient History of Present Illness Date Seen by Provider: Mar 15, 2022 Time Seen by Provider: 12:30 Initial Comments Patient is a 71-year-old female with history of type 2 diabetes gastroparesis who presents with generalized fatigue and 20 pound weight loss after not eating for the past 3 weeks or taking her medications. Patient states her CGM has read high the entire time. Patient went to the clinic today tested positive for COVID was given a liter of fluid and referred to the ED for additional evaluation. Patient denies dizziness, lightheadedness chest pain palpitations, sore throat nausea vomiting and abdominal pain. She ports occasional dry cough for the past few days. She states she has had no appetite and as such has not taken her medications. She reports poorly dyspnea with frequent urination. No other acute symptoms or complaints. Timing/Duration: Other Modifying Factors: improves with Other Associated Systoms: Other Allergies and Home Medications Allergies Coded Allergies: NSAIDS (Non-Steroidal Anti-Inflamma (Verified Allergy, Unknown, 09/29/18) Penicillins (Verified Allergy, Unknown, Nausea, 09/29/18) adhesive tape (Verified Allergy, Unknown, Hives, 09/29/18) codeine (Verified Allergy, Unknown, 09/29/18) Patient Home Medication List Home Medication List Reviewed: Yes Aspirin (Aspirin EC) 81 Mg Tablet.dr, 81 MG PO DAILY, (Reported) Entered as Reported by: YULI MARTELL on 01/15/19 1046 Atorvastatin Calcium (Lipitor) 40 Mg Tablet, 40 MG PO HS, (Reported) Entered as Reported by: ENRICO BRISCOE on 03/05/15 1545 Buspirone HCl (Buspirone HCl) 10 Mg Tablet, 20 MG PO BID, (Reported) Entered as Reported by: YULI MARTELL on 09/26/18 1613 Dapagliflozin Propanediol (Farxiga) 10 Mg Tablet, 10 MG PO DAILY, (Reported) Entered as Reported by: YULI MARTELL on 01/15/19 1054 Diclofenac Sodium (Diclo Gel) 1 Each Kit, 1 EACH TP TID PRN for PAIN- BREAKTHROUGH, (Reported) Entered as Reported by: YULI MARTELL on 01/15/19 1036 Ezetimibe (Zetia) 10 Mg Tablet, 10 MG PO DAILY Prescribed by: KACIE MCCAULEY on 04/01/21 1207 Fluoxetine HCl (Prozac) 20 Mg Capsule, 20 MG PO DAILY, (Reported) Entered as Reported by: ENRICO BRISCOE on 03/30/18 1439 Gabapentin (Gabapentin) 800 Mg Tablet, 1,200 MG PO BID, (Reported) Entered as Reported by: YULI MARTELL on 09/26/18 1610 Insulin Aspart (Novolog Flexpen) 300 Units/3 Ml Solution, 35 UNITS SQ AC, (Reported) Entered as Reported by: ENRICO BRISCOE on 03/30/18 1439 Insulin Determir (Levemir) 1,000 Units/10 Ml Soln, 65 UNITS SQ BID, (Reported) Entered as Reported by: ENRICO BRISCOE on 03/30/18 1439 Lipase/Protease/Amylase (Zenpep Dr 20,000 Units Capsule) 1 Each Capsule.dr, 1 EACH PO AC, (Reported) Entered as Reported by: ENRICO BRISCOE on 03/30/18 1439 Metformin HCl (Metformin HCl) 500 Mg Tablet, 1,000 MG PO BID Prescribed by: KACIE MCCAULEY on 04/01/21 1207 Metoprolol Tartrate (Metoprolol Tartrate) 50 Mg Tablet, 50 MG PO BID, (Reported) Entered as Reported by: ENRICO BRISCOE on 03/30/18 1439 Oxybutynin Chloride (Oxybutynin Chloride ER) 5 Mg Tab.er.24, 5 MG PO BID, (Reported) Entered as Reported by: ENRICO BRISCOE on 03/30/18 1439 Pantoprazole Sodium (Pantoprazole Sodium) 40 Mg Tablet.dr, 40 MG PO DAILY, (Reported) Entered as Reported by: ENRICO BRISCOE on 03/30/18 1439 Quinapril HCl (Quinapril HCl) 20 Mg Tablet, 20 MG PO DAILY, (Reported) Entered as Reported by: ENRICO BRISCOE on 03/30/18 1439 Semaglutide (Ozempic) 1 Mg/0.75 Ml Pen.injctr, 1 MG SQ WEEK, (Reported) Entered as Reported by: KEO KILLIAN on 09/26/18 1129 Venlafaxine HCl (Effexor Xr) 150 Mg Cap.er.24h, 150 MG PO HS, (Reported) Entered as Reported by: ENRICO BRISCOE on 03/05/15 1545 Review of Systems Review of Systems Constitutional: see HPI EENTM: see HPI Respiratory: see HPI Cardiovascular: see HPI Gastrointestinal: see HPI Genitourinary: see HPI Musculoskeletal: see HPI Skin: see HPI Psychiatric/Neurological: See HPI Hematologic/Lymphatic: See HPI Immunological/Allergic: see HPI All Other Systems Reviewed Negative Unless Noted: No Past Csbdusi-Ionene-Mvageb Hx Patient Social History Tobacco Use?: Yes Tobacco type used: Cigarettes Smoking Status: Former Smoker Use of E-Cig and/or Vaping dev: No Substance use?: No Alcohol Use?: No Pt feels they are or have been: No Immunizations Up To Date First/Initial COVID19 Vaccinat: 2020 Second COVID19 Vaccination Semaj: 2020 Third COVID19 Vaccination Date: 2021 COVID19 Vaccine Herbologist: ROBB Seasonal Allergies Seasonal Allergies: No Past Medical History Surgery/Hospitalization HX: DIABETES Surgeries: Yes (bilat knee scope, neck sx, allegra cyst removed from neck) Appendectomy, Cardiac, Coronary Stent, Gallbladder, Hysterectomy, Oophorectomy, Orthopedic Respiratory: Yes (SLEEP APNEA-USES CPAP) Sleep Apnea, COPD Currently Using CPAP: Yes Cardiac: Yes (STENT PLACEMENT X4) Coronary Artery Disease, Heart Attack, High Cholesterol, Hypertension Neurological: Yes Headaches /Migraines, Neuropathy Reproductive Disorders: No 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, Menopausal Genitourinary: No Gastrointestinal: Yes (diabetic gastroparesis) Gastroesophageal Reflux, Chronic Constipation, Diverticulosis, Chronic Diarrhea Musculoskeletal: Yes ("COMPRESSED DISCS IN BACK" PER PT) Degenerate Disk Disease, Arthritis, Chronic Back Pain Endocrine: Yes Diabetes, Insulin dep HEENT: Yes (GLASSES,DENTURES) Loss of Vision: Denies Hearing Impairment: Denies Cancer: No Psychosocial: Yes Anxiety, Depression Integumentary: No Blood Disorders: No Adverse Reaction/Blood Tranf: No (N/A) Family Medical History Cancer 19 MOTHER Cancer of colon 19 MOTHER Cataract 19 MOTHER Chest pain G8 SISTER Family history: Arthritis 19 FATHER 19 MOTHER G8 SISTER Family history: Cardiovascular disease 19 FATHER 19 MOTHER Family history: Gastrointestinal disease 19 MOTHER Family history: Hypertension 19 MOTHER Family history: Osteoporosis 19 MOTHER Family history: Thyroid disorder G8 SISTER Headache 19 FATHER 19 MOTHER G8 SISTER Hearing loss 19 MOTHER Heart disease 19 FATHER History of - respiratory disease G8 SISTER Hypercholesterolemia 19 FATHER 19 MOTHER Visual impairment 19 MOTHER No Family History of: Abdominal aortic aneurysm [place]'s disease Alcoholism Aphasia Congenital heart disease Congestive heart failure Cystic fibrosis Dementia Dysphagia Family history: Allergy Family history: Alzheimer's disease Family history: Asthma Family history: Breast disease Family history: Coronary thrombosis Family history: Glaucoma Hereditary disease History of - anemia History of - disorder History of drug abuse Human immunodeficiency virus (HIV) seropositivity Infertile Kidney disease Malignant neoplasm of lung Myocardial infarction Parkinson's disease Prostate cancer Psychotic disorder Seizure disorder Stroke Tuberculosis Heart Disease, Cancer, Hypertension Physical Exam Vital Signs Vital Signs - First Documented 03/15/22 12:51 Temp 36.2 Pulse 87 Resp 14 B/P (MAP) 141/89 (106) Pulse Ox 97 O2 Delivery Room Air Capillary Refill : Less Than 3 Seconds Height, Weight, BMI Height: 5'6.00" Weight: 187lbs. 5.0oz. [id number]; 31.86 BMI Method:Stated General Appearance: No Apparent Distress, WD/WN, Anxious Eyes: Bilateral Eye EOMI HEENT: PERRL/EOMI, Normal ENT Inspection, Pharynx Normal, Moist Mucous Membra yosi Neck: Full Range of Motion, Normal Inspection Cardiovascular: Regular Rate, Rhythm, No Edema Gastrointestinal: Non Tender, Soft Neurologic/Psychiatric: Alert, Oriented x3, No Motor/Sensory Deficits Focused Exam Sepsis Stage: Ruled Out Progress/Results/Core Measures Suspected Sepsis SIRS Temperature: Pulse: 87 Respiratory Rate: 14 Laboratory Tests 03/15/22 12:48: White Blood Count 6.8 Blood Pressure 141 /89 Mean: 106 Laboratory Tests 03/15/22 12:48: Creatinine 0.85, Platelet Count 235, Total Bilirubin 0.4 Results/Orders Lab Results Laboratory Tests Test 03/15/22 12:48 03/15/22 13:10 Range/Units White Blood Count 6.8 4.3-11.0 10^3/uL Red Blood Count 4.48 3.80-5.11 10^6/uL Hemoglobin 12.6 11.5-16.0 g/dL Hematocrit 38 35-52 % Mean Corpuscular Volume 85 80-99 fL Mean Corpuscular Hemoglobin 28 25-34 pg Mean Corpuscular Hemoglobin Concent 33 32-36 g/dL Red Cell Distribution Width 15.1 H 10.0-14.5 % Platelet Count 235 130-400 10^3/uL Mean Platelet Volume 10.5 9.0-12.2 fL Immature Granulocyte % (Auto) 0 % Neutrophils (%) (Auto) 70 42-75 % Lymphocytes (%) (Auto) 21 12-44 % Monocytes (%) (Auto) 6 0-12 % Eosinophils (%) (Auto) 2 0-10 % Basophils (%) (Auto) 0 0-10 % Neutrophils # (Auto) 4.8 1.8-7.8 10^3/uL Lymphocytes # (Auto) 1.4 1.0-4.0 10^3/uL Monocytes # (Auto) 0.4 0.0-1.0 10^3/uL Eosinophils # (Auto) 0.1 0.0-0.3 10^3/uL Basophils # (Auto) 0.0 0.0-0.1 10^3/uL Immature Granulocyte # (Auto) 0.0 0.0-0.1 10^3/uL Sodium Level 133 L 135-145 MMOL/L Potassium Level 3.9 3.6-5.0 MMOL/L Chloride Level 95 L 98-107 MMOL/L Carbon Dioxide Level 25 21-32 MMOL/L Anion Gap 13 5-14 MMOL/L Blood Urea Nitrogen 8 7-18 MG/DL Creatinine 0.85 0.60-1.30 MG/DL Estimat Glomerular Filtration Rate 74 BUN/Creatinine Ratio 9 Glucose Level 579 *H 70-105 MG/DL Calcium Level 9.2 8.5-10.1 MG/DL Corrected Calcium 9.3 8.5-10.1 MG/DL Total Bilirubin 0.4 0.1-1.0 MG/DL Aspartate Amino Transf (AST/SGOT) 41 H 5-34 U/L Alanine Aminotransferase (ALT/SGPT) 38 0-55 U/L Alkaline Phosphatase 100 40-136 U/L Troponin I < 0.30 <0.30 NG/ML Total Protein 7.1 6.4-8.2 GM/DL Albumin 3.9 3.2-4.5 GM/DL Urine Color YELLOW Urine Clarity CLEAR Urine pH 5.0 5-9 Urine Specific [place] <=1.005 1.016-1.022 Urine Protein NEGATIVE NEGATIVE Urine Glucose (UA) 3+ H NEGATIVE Urine Ketones TRACE H NEGATIVE Urine Nitrite POSITIVE H NEGATIVE Urine Bilirubin NEGATIVE NEGATIVE Urine Urobilinogen 0.2 < = 1.0 MG/DL Urine Leukocyte Esterase NEGATIVE NEGATIVE Urine RBC (Auto) NEGATIVE NEGATIVE Urine RBC NONE /HPF Urine WBC 2-5 /HPF Urine Squamous Epithelial Cells 2-5 /HPF Urine Crystals NONE /LPF Urine Bacteria LARGE H /HPF Urine Casts NONE /LPF Urine Mucus NEGATIVE /LPF Urine Yeast FEW H /HPF Urine Culture Indicated YES My Orders Orders - EVE COOK DO Cbc With Automated Diff (03/15/22 12:50) Comprehensive Metabolic Panel (03/15/22 12:50) Ua Culture If Indicated (03/15/22 12:50) Troponin I Fs (03/15/22 12:50) Ekg Tracing (03/15/22 12:50) Ns Iv 1000 Ml (Sodium Chloride 0.9%) (03/15/22 13:00) Chest 1 View Ap/Pa Only (03/15/22 12:50) Ns Iv 1000 Ml (Sodium Chloride 0.9%) (03/15/22 12:59) Urine Culture (03/15/22 13:10) Insulin (Regular) Human (Novolin R (Per (03/15/22 14:00) Vital Signs/I&O 03/15/22 12:51 Temp 36.2 Pulse 87 Resp 14 B/P (MAP) 141/89 (106) Pulse Ox 97 O2 Delivery Room Air Capillary Refill : Less Than 3 Seconds Blood Pressure Mean: 106 Point of Care Testing Finger Stick Blood Glucose: 531 Blood Glucose Action Taken: NONE Departure Communication (Admissions) Chest x-ray: No acute cardiopulmonary disease. Normal sinus rhythm short MD interval, no acute ST-T wave changes. Patient with cough and COVID-positive in the clinic with decreased appetite coinciding with medication noncompliance hyperglycemia for the past 3 weeks. No respiratory compromise. Chest x-ray is clear. GI symptoms are likely related to combination of hyperglycemia, gastroparesis and known reaction of new medication Ozempic. No abdominal pain or tenderness. Total of 3 L of fluid were given today, 1 L in the clinic and 2 in the emergency department. Patient's blood sugar was addressed and improved prior to departure. Patient does not require hospital admission or advanced imaging. Recommendations are that the patient resumes her home medications and withhold further Ozempic shots until her appetite improves and she can compliant with the rest of her therapy. Recommendations are PCP follow-up next 1 to 2 days. Return precautions reviewed. Patient verbalizes understanding and agreement discharge instructions prior to departure. Impression Primary Impression: Fatigue Additional Impressions: Hyperglycemia Gastroparesis Noncompliance w/medication treatment due to intermit use of medication Disposition: HOME, SELF-CARE Condition: Stable Departure-Patient Inst. Decision time for Depature: 14:08 Referrals: ALEAH SELBY APRN (PCP) Primary Care Physician [facility] (Family) Primary Care Physician Patient Instructions: High Blood Sugar, Adult ED Add. Discharge Instructions: You were evaluated in the emergency department for generalized weakness and fatigue for the past 3 weeks along with cough. Lab work was obtained shows mild dehydration with blood sugar in the 500 range. IV fluids and insulin were administered. Please hold Ozempic and resume all other medications as your symptoms will continue to worsen until your blood sugars are under control at home. Please follow-up with your PCP in 3 to 5 days for reevaluation. In the meantime if you develop new or concerning symptoms, return to the emergency department. All discharge instructions reviewed with patient and/or family. Voiced understa nding. EVE COOK DO Mar 15, 2022 14:07
[2022-03-15 14:41] VITALS: BP 133/65
== END 2022-03-15 14:41 | disposition home or self-care (01) ==
LOC: EDUNIT# 12:36 → ER FS 12:37
DX: U07.1 COVID-19 (principal); E11.65 Type 2 diabetes mellitus with hyperglycemia; E11.43 Type 2 diabetes mellitus with diabetic autonomic (poly)neuropathy; K31.84 Gastroparesis; T38.3X6A Underdosing of insulin and oral hypoglycemic [antidiabetic] drugs, initial encounter; G47.30 Sleep apnea, unspecified; F17.210 Nicotine dependence, cigarettes, uncomplicated; Z91.14 Patient's other noncompliance with medication regimen; Z99.89 Dependence on other enabling machines and devices; Z79.4 Long term (current) use of insulin
CPT/HCPCS: 36415; 71045; 80053; 81000; 84484; 85025; 87077; 87088; 87186; 93005

== ENCOUNTER 2023-01-19 13:06 | Emergency (ER) | payer MEDICARE ==
[~2023-01-19] VITALS: Ht 170 cm; Wt 90.0 kg
[~2023-01-19 13:06] MED LIST changes: -DICL100G13 TP; +DICL100G60 TP; -EZET10TA17 PO; +EZET10TA83 PO; -GABA-490 PO; +GABA-491 PO; -OXYB5TAB13 PO; +OXYB5TAB14 PO
[2023-01-19 13:34] LABS: BILIRUBIN,URINE NEGATIVE (NEGATIVE); CLARITY,URINE CLEAR; COLOR,URINE YELLOW; GLUCOSE, URINE (UA) 3+ (NEGATIVE); KETONES,URINE NEGATIVE (NEGATIVE); LEUKOCYTE ESTERASE ,URINE TRACE (NEGATIVE); NITRITE,URINE POSITIVE (NEGATIVE); PH,URINE 5.5 (5-9); PROTEIN,URINE NEGATIVE (NEGATIVE)
[2023-01-19 13:39] LABS: BACTERIA,URINE LARGE /HPF; SQUAMOUS EPITHELIAL CELL,UR 0-2 /HPF
[2023-01-19] MEDS ORDERED: cefTRIAXone 1,000 MG VIAL IV/IM IM STA (13:49)
[2023-01-19] MEDS ORDERED: LIDOCAINE 1% INJ 20 ML VIAL INJ ONE (14:00)
--- NOTE | 2023-01-19 14:04 | ED Fall/Injury ---
General Chief Complaint: Trauma-Non Activation Stated Complaint: FALL Nursing Triage Note: ASSISTED TO ER VIA WC FROM CAR. 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 PT STATES SHE FACE PLANTED. DENIES TRIPPING ET STATES SHE JUST WENT DOWN. STATES SHE HAS BEEN FALLIN FREQUENLTY. DENIES LOC. COMPLAINS OF BILAT KNEE , BILAT HAND, HEAD, AND NECK PAIN. Source: patient, spouse History of Present Illness Date Seen by Provider: Jan 19, 2023 Time Seen by Provider: 13:24 Initial Comments 72-year-old female presenting with complaints of having a fall at home. She had fell forward and landed on her knees and hands. She complained of bilateral knee pain as well as abrasions to her elbows. She was complaining of headache and neck pain as well. She denied any new numbness or weakness in her arms or legs. She has been falling every 1 to 2 weeks. She did not lose consciousness today. She had fallen a week ago and hit her head in the bathtub but did not lose consciousness then either. She was brought in today since she has been having repeated falls as well as having worse pain with her knees and head since the fall. Occurred: just prior to arrival Severity: moderate Injuries/Pain Location: head, neck, lower extremity (Bilateral knee pain) Context: unknown Loss of Consciousness: no loss of consciousness Modifying Factors: Worse With Movement Associated Symptoms (Fall): No Abdominal Pain, No Chest Pain, No Confusion, No Dizziness; Headache; No Lightheadedness, No Muscle Spasms, No Nausea/Vomiting; Neck Pain; No Ringing in Ears, No Seizures, No Shortness of Air, No Slurred Speech; Trouble Walking; No Vision Changes Allergies and Home Medications Allergies Coded Allergies: NSAIDS (Non-Steroidal Anti-Inflamma (Verified Allergy, Unknown, 09/29/18) Penicillins (Verified Allergy, Unknown, Nausea, 09/29/18) adhesive tape (Verified Allergy, Unknown, Hives, 09/29/18) codeine (Verified Allergy, Unknown, 09/29/18) Patient Home Medication List Home Medication List Reviewed: Yes Aspirin (Aspirin EC) 81 Mg Tablet.dr, 81 MG PO DAILY, (Reported) Entered as Reported by: YULI MARTELL on 01/15/19 1046 Atorvastatin Calcium (Lipitor) 40 Mg Tablet, 40 MG PO HS, (Reported) Entered as Reported by: ENRICO BRISCOE on 03/05/15 1545 Buspirone HCl (Buspirone HCl) 10 Mg Tablet, 20 MG PO BID, (Reported) Entered as Reported by: YULI MARTELL on 09/26/18 1613 Dapagliflozin Propanediol (Farxiga) 10 Mg Tablet, 10 MG PO DAILY, (Reported) Entered as Reported by: YULI MARTELL on 01/15/19 1054 Diclofenac Sodium (Diclo Gel) 1 Each Kit, 1 EACH TP TID PRN for PAIN- BREAKTHROUGH, (Reported) Entered as Reported by: YULI MARTELL on 01/15/19 1036 Ezetimibe (Zetia) 10 Mg Tablet, 10 MG PO DAILY Prescribed by: KACIE MCCAULEY on 04/01/21 1207 Fluoxetine HCl (Prozac) 20 Mg Capsule, 20 MG PO DAILY, (Reported) Entered as Reported by: ENRICO BRISCOE on 03/30/18 1439 Gabapentin (Gabapentin) 800 Mg Tablet, 1,200 MG PO BID, (Reported) Entered as Reported by: YULI MARTELL on 09/26/18 1610 Insulin Aspart (Novolog Flexpen) 300 Units/3 Ml Solution, 35 UNITS SQ AC, (Reported) Entered as Reported by: ENRICO BRISCOE on 03/30/18 1439 Insulin Determir (Levemir) 1,000 Units/10 Ml Soln, 65 UNITS SQ BID, (Reported) Entered as Reported by: ENRICO BRISCOE on 03/30/18 1439 Lipase/Protease/Amylase (Zenpep Dr 20,000 Units Capsule) 1 Each Capsule.dr, 1 EACH PO AC, (Reported) Entered as Reported by: ENRICO BRISCOE on 03/30/18 1439 Metformin HCl (Metformin HCl) 500 Mg Tablet, 1,000 MG PO BID Prescribed by: KACIE MCCAULEY on 04/01/21 1207 Metoprolol Tartrate (Metoprolol Tartrate) 50 Mg Tablet, 50 MG PO BID, (Reported) Entered as Reported by: ENRICO BRISCOE on 03/30/18 1439 Nitrofurantoin Monohyd/M-Cryst (Macrobid 100 mg Capsule) 100 Mg Capsule, 1 TAB PO BID Prescribed by: ABDELRAHMAN PURI on 01/19/23 1452 Oxybutynin Chloride (Oxybutynin Chloride ER) 5 Mg Tab.er.24, 5 MG PO BID, (Reported) Entered as Reported by: ENRICO BRISCOE on 03/30/18 1439 Pantoprazole Sodium (Pantoprazole Sodium) 40 Mg Tablet.dr, 40 MG PO DAILY, (Reported) Entered as Reported by: ENRICO BRISCOE on 03/30/18 1439 Quinapril HCl (Quinapril HCl) 20 Mg Tablet, 20 MG PO DAILY, (Reported) Entered as Reported by: ENRICO BRISCOE on 03/30/18 1439 Semaglutide (Ozempic) 1 Mg/0.75 Ml Pen.injctr, 1 MG SQ WEEK, (Reported) Entered as Reported by: KEO KILLIAN on 09/26/18 1129 Venlafaxine HCl (Effexor Xr) 150 Mg Cap.er.24h, 150 MG PO HS, (Reported) Entered as Reported by: ENRICO BRISCOE on 03/05/15 1545 Review of Systems Review of Systems Constitutional: No chills, No fever Eyes: No Symptoms Reported Ears, Nose, Mouth, Throat: no symptoms reported Respiratory: no symptoms reported Cardiovascular: no symptoms reported Gastrointestinal: no symptoms reported Genitourinary: frequency Musculoskeletal: see HPI Skin: other (Facial abrasions to bilateral knees and elbows) Psychiatric/Neurological: Headache Past Rqjtgyf-[id number]-Plbpph Hx Patient Social History Tobacco Use?: Yes Smoking Status: Former Smoker Substance use?: No Alcohol Use?: No Immunizations Up To Date First/Initial COVID19 Vaccinat: 2020 Second COVID19 Vaccination Semaj: 2020 Third COVID19 Vaccination Date: 2021 Seasonal Allergies Seasonal Allergies: No Past Medical History Surgery/Hospitalization HX: DIABETES Surgeries: Yes (bilat knee scope, neck sx, allegra cyst removed from neck) Appendectomy, Cardiac, Coronary Stent, Gallbladder, Hysterectomy, Oophorectomy, Orthopedic Respiratory: Yes (SLEEP APNEA-USES CPAP) Sleep Apnea, COPD Currently Using CPAP: Yes Cardiac: Yes (STENT PLACEMENT X4) Coronary Artery Disease, Heart Attack, High Cholesterol, Hypertension Neurological: Yes Headaches /Migraines, Neuropathy 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, Menopausal Genitourinary: No Gastrointestinal: Yes (diabetic gastroparesis) Gastroesophageal Reflux, Chronic Constipation, Diverticulosis, Chronic Diarrhea Musculoskeletal: Yes ("COMPRESSED DISCS IN BACK" PER PT) Degenerate Disk Disease, Arthritis, Chronic Back Pain Endocrine: Yes Diabetes, Insulin dep HEENT: Yes (GLASSES,DENTURES) Loss of Vision: Denies Hearing Impairment: Denies Cancer: No Psychosocial: Yes Anxiety, Depression Integumentary: No Blood Disorders: No Adverse Reaction/Blood Tranf: No (N/A) Family Medical History Cancer 19 MOTHER Cancer of colon 19 MOTHER Cataract 19 MOTHER Chest pain G8 SISTER Family history: Arthritis 19 FATHER 19 MOTHER G8 SISTER Family history: Cardiovascular disease 19 FATHER 19 MOTHER Family history: Gastrointestinal disease 19 MOTHER Family history: Hypertension 19 MOTHER Family history: Osteoporosis 19 MOTHER Family history: Thyroid disorder G8 SISTER Headache 19 FATHER 19 MOTHER G8 SISTER Hearing loss 19 MOTHER Heart disease 19 FATHER History of - respiratory disease G8 SISTER Hypercholesterolemia 19 FATHER 19 MOTHER Visual impairment 19 MOTHER No Family History of: Abdominal aortic aneurysm Strawberry's disease Alcoholism Aphasia Congenital heart disease Congestive heart failure Cystic fibrosis Dementia Dysphagia Family history: Allergy Family history: Alzheimer's disease Family history: Asthma Family history: Breast disease Family history: Coronary thrombosis Family history: Glaucoma Hereditary disease History of - anemia History of - disorder History of drug abuse Human immunodeficiency virus (HIV) seropositivity Infertile Kidney disease Malignant neoplasm of lung Myocardial infarction Parkinson's disease Prostate cancer Psychotic disorder Seizure disorder Stroke Tuberculosis Heart Disease, Cancer, Hypertension Physical Exam Vital Signs Vital Signs - First Documented 01/19/23 13:10 Temp 36.5 Pulse 90 Resp 16 B/P (MAP) 103/50 (67) Pulse Ox 97 O2 Delivery Room Air Capillary Refill : Less Than 3 Seconds Height, Weight, BMI Height: 5'6.00" Weight: 187lbs. 5.0oz. 84.075915za; 31.00 BMI Method:Stated General Appearance: WD/WN, no apparent distress, obese HEENT: PERRL/EOMI, normal ENT inspection, TMs normal, pharynx normal Neck: full range of motion, tender lateral (Right lateral neck muscles are tender and having muscle spasms); No tender midline Cardiovascular: normal peripheral pulses, regular rate, rhythm Respiratory: chest non-tender, lungs clear, normal breath sounds, no respiratory distress, no accessory muscle use Gastrointestinal: normal bowel sounds, non tender, soft, no pulsatile mass Extremities: normal range of motion, normal capillary refill, other (Tender to palpation bilateral knees with superficial abrasions.) 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, alert, normal mood/affect, oriented x 3 Skin: warm/dry [place] Coma Score Best Eye Response: (4) Open Spontaneously Best Verbal Response: (5) Oriented Best Motor Response: (6) Obeys Commands Liz Total: 15 Progress/Results/Core Measures Results/Orders Lab Results Laboratory Tests Test 01/19/23 13:20 01/19/23 13:23 01/19/23 16:10 Range/Units Urine Color YELLOW Urine Clarity CLEAR Urine pH 5.5 5-9 Urine Specific [place] 1.020 1.016-1.022 Urine Protein NEGATIVE NEGATIVE Urine Glucose (UA) 3+ H NEGATIVE Urine Ketones NEGATIVE NEGATIVE Urine Nitrite POSITIVE H NEGATIVE Urine Bilirubin NEGATIVE NEGATIVE Urine Urobilinogen 0.2 < = 1.0 MG/DL Urine Leukocyte Esterase TRACE H NEGATIVE Urine RBC (Auto) NEGATIVE NEGATIVE Urine RBC NONE /HPF Urine WBC 10-25 H /HPF Urine Squamous Epithelial Cells 0-2 /HPF Urine Crystals NONE /LPF Urine Bacteria LARGE H /HPF Urine Casts NONE /LPF Urine Mucus NEGATIVE /LPF Urine Culture Indicated YES Glucometer 139 H 70-110 MG/DL White Blood Count 11.8 H 4.3-11.0 10^3/uL Red Blood Count 3.82 3.80-5.11 10^6/uL Hemoglobin 11.4 L 11.5-16.0 g/dL Hematocrit 37 35-52 % Mean Corpuscular Volume 96 80-99 fL Mean Corpuscular Hemoglobin 30 25-34 pg Mean Corpuscular Hemoglobin Concent 31 L 32-36 g/dL Red Cell Distribution Width 13.2 10.0-14.5 % Platelet Count 237 130-400 10^3/uL Mean Platelet Volume 9.2 9.0-12.2 fL Immature Granulocyte % (Auto) 0 % Neutrophils (%) (Auto) 77 H 42-75 % Lymphocytes (%) (Auto) 15 12-44 % Monocytes (%) (Auto) 5 0-12 % Eosinophils (%) (Auto) 1 0-10 % Basophils (%) (Auto) 1 0-10 % Neutrophils # (Auto) 9.1 H 1.8-7.8 10^3/uL Lymphocytes # (Auto) 1.8 1.0-4.0 10^3/uL Monocytes # (Auto) 0.6 0.0-1.0 10^3/uL Eosinophils # (Auto) 0.2 0.0-0.3 10^3/uL Basophils # (Auto) 0.1 0.0-0.1 10^3/uL Immature Granulocyte # (Auto) 0.1 0.0-0.1 10^3/uL Sodium Level 140 135-145 MMOL/L Potassium Level 4.6 3.6-5.0 MMOL/L Chloride Level 100 98-107 MMOL/L Carbon Dioxide Level 27 21-32 MMOL/L Anion Gap 13 5-14 MMOL/L Blood Urea Nitrogen 19 H 7-18 MG/DL Creatinine 1.14 0.60-1.30 MG/DL Estimat Glomerular Filtration Rate 51 BUN/Creatinine Ratio 17 Glucose Level 105 70-105 MG/DL Lactic Acid Level 2.35 *H 0.50-2.00 MMOL/L Calcium Level 9.6 8.5-10.1 MG/DL Corrected Calcium 9.5 8.5-10.1 MG/DL Total Bilirubin 0.2 0.1-1.0 MG/DL Aspartate Amino Transf (AST/SGOT) 24 5-34 U/L Alanine Aminotransferase (ALT/SGPT) 23 0-55 U/L Alkaline Phosphatase 58 40-136 U/L C-Reactive Protein < 0.30 <0.50 MG/DL Total Protein 7.6 6.4-8.2 GM/DL Albumin 4.1 3.2-4.5 GM/DL Micro Results Microbiology 01/19/23 Urine Culture - Preliminary, Resulted My Orders Orders - ABDELRAHMAN PURI MD Ua Culture If Indicated (01/19/23 13:28) Urine Culture (01/19/23 13:20) Ceftriaxone Iv/Im (Ceftriaxone Iv/Im) (01/19/23 13:49) Lidocaine 1% Inj 20 Ml (Xylocaine 1% Inj (01/19/23 14:00) Knee 3 View Bilateral (01/19/23 13:49) Ct Head/Cervical Spine Wo (01/19/23 13:49) Cbc And Automated Diff (01/19/23 16:04) Comprehensive Metabolic Panel (01/19/23 16:04) Blood Culture (01/19/23 16:04) Ed Iv/Invasive Line Start (01/19/23 16:04) Crp Fs (01/19/23 16:04) Lactic Acid Analyzer (01/19/23 16:04) Ns Iv 1000 Ml (Ns Iv 1000 Ml) (01/19/23 16:04) Medications Given in ED Current Medications Medications Dose Ordered Sig/Hilda Route Start Time Stop Time Status Last Admin Dose Admin Lidocaine HCl 2.1 ml ONCE ONCE INJ 01/19/23 14:00 01/19/23 14:01 DC 01/19/23 14:25 2.1 ML Vital Signs/I&O 01/19/23 01/19/23 01/19/23 13:10 16:26 17:03 Temp 36.5 Pulse 90 83 82 83 88 Resp 16 16 B/P (MAP) 103/50 (67) 101/50 (67) 102/51 98/62 (74) 90/50 (63) Pulse Ox 97 95 O2 Delivery Room Air Room Air Blood Pressure Mean: 67 FSBG Bedside Testing Finger Stick Blood Glucose: 139 Progress Progress Note #1: Progress Note Differential diagnosis includes UTI, dehydration, intracranial hemorrhage, skull fracture, electrolyte imbalance. Obtain urinalysis and order CT scan of the head and cervical spine as well as bilateral knee x-rays. Urinalysis did not show signs of UTI so will administer Rocephin 1 g IM. Progress Note #2: Progress Note CT scan of the head and cervical spine as well as bilateral knee x-rays did not show any acute intracranial hemorrhage or fractures and no knee fractures. Counseled on follow-up and return precautions. We will continue Macrobid as oral antibiotic until culture results are back. As patient was waiting for discharge she was sleeping in the room on her side. Her blood pressure was low at 90 systolic. Patient denied having any dizziness or lightheadedness. Orthostatic vital signs were obtained and did not show any tilt. However since you did have a UTI and is hypotensive so there is concern for sepsis will obtain peripheral IV access and check complete blood count, comprehensive metabolic profile, blood cultures, lactic Acid. Administer normal saline 1 L IV fluid bolus for hydration. Progress Note #3: Progress Note With IV fluids patient's blood pressure did come up to 117/58. Her labs did show mild elevation of her white blood cell count and her lactic acid was slightly elevated to 2.3. I felt that this was more hydration related rather than sepsis as she was having improvement in her blood pressure with the liter of fluids and never did have a tilt or other symptoms with her low blood pressures here in the ED. Patient was anxious to go home and was agreeable to continuing the antibiotics. Encouraged to push fluids and hydration and move slowly to change positions. Counseled to consider using a walker or something to help stabilize her when she gets up and moves as well. Patient stated that she felt like a walker would trip her and cause her to fall more likely. She states she does have a cane if she needs it. Diagnostic Imaging Diagonstic Imaging: CT Plain Films/CT/US/NM/MRI: c-spine, head Comments [facility], [place] NAME: ANGEL LUIS MAC [facility] REC#: [id number] PT STATUS: REG ER : 1950 PHYSICIAN: ABDELRAHMAN PURI MD ADMIT DATE: 01/19/23/ER FS Signed Date of Exam:01/19/23 CT HEAD/CERVICAL SPINE WO PROCEDURE: CT head and CT cervical spine without contrast. TECHNIQUE: Multiple contiguous axial images were obtained through the brain and cervical spine without the use of intravenous contrast. Sagittal and coronal reformations through the cervical spine were then performed. Auto Exposure Controls were utilized during the CT exam to meet ALARA standards for radiation dose reduction. INDICATION: Trauma. Headache. Right-sided neck pain. Fall today. COMPARISON: CT head without contrast 08/05/2018. CT cervical spine 06/21/2018. FINDINGS: CT HEAD: Mild to moderate generalized volume loss and leukoaraiosis. No intracranial hemorrhage, mass effect, hydrocephalus or extra-axial fluid collections. No CT evidence of a territorial infarction. Osseous structures are intact. Paranasal sinuses and mastoids are clear. CT CERVICAL SPINE: Normal alignment. Vertebral body heights are preserved. No fractures. 360 degrees fusion with interbody grafting at C4-C6. No evidence of hardware failure. No CT evidence of high-grade spinal canal stenosis. No acute findings in the visualized paravertebral soft tissues. Lung apices are clear. Moderate atherosclerotic calcifications in the carotid bifurcations. IMPRESSION: No acute intracranial or cervical spine CT findings. Chronic findings as above. Dictated by: Dictated on workstation # [id number] Dict: 01/19/23 1458 Trans: 01/19/231651 CV [id number] Interpreted by: MARS LAWSON MD Electronically signed by: MARS LAWSON MD 01/19/231651 Reviewed: Reviewed by Me Diagonstic Imaging: Xray Plain Films/CT/US/NM/MRI: knee (bilateral) Comments [facility] [place] NAME: ANGEL LUIS MAC [facility] REC#: [id number] PT STATUS: REG ER : 1950 PHYSICIAN: ABDELRAHMAN PURI MD ADMIT DATE: 01/19/23/ER FS Signed Date of Exam:01/19/23 KNEE 3 VIEW BILATERAL KNEE 3 VIEW BILATERAL INDICATION: Bilateral knee pain COMPARISON: None available. TECHNIQUE: 3 views of each knee for total 6 views FINDINGS: Tricompartment osteoarthritis is present on both sides. No fracture or concerning focal osseous lesion on either side. Small bilateral knee joint effusions. No mineralized joint bodies. Extensive atherosclerotic calcifications are noted. IMPRESSION: 1. No acute osseous abnormality about either knee. 2. 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 Dictated by: Dictated on workstation # [id number] Dict: 01/19/23 151 Trans: 01/19/23 151 [facility] [id number] Interpreted by: JOSH SU MD Electronically signed by: JOSH SU MD 01/19/231510 Reviewed: Reviewed by Me Focused Exam Lactate Level 01/19/23 16:10: Lactic Acid Level 2.35*H Lactic Acid Level Laboratory Tests Test 01/19/23 16:10 Lactic Acid Level 2.35 MMOL/L (0.50-2.00) *H Departure Impression Primary Impression: Acute cystitis without hematuria Additional Impressions: Frequent falls Acute cervical myofascial strain Qualified Codes: S16.1XXA - Strain of muscle, fascia and tendon at neck level, initial encounter Bilateral knee pain Qualified Codes: M25.561 - Pain in right knee; M25.562 - Pain in left knee Contusion of left knee, initial encounter Contusion of right knee, initial encounter Disposition: 01 HOME, SELF-CARE Condition: Stable Departure-Patient Inst. Decision time for Depature: 15:38 Referrals: [facility] (PCP/Family) Primary Care Physician Patient Instructions: Knee Pain ED, Minor Contusion ED, Muscle Strain ED, Preventing Falls ED, Urinary Tract Infection, Adult ED, Using Cold for Pain Add. Discharge Instructions: Alternate ice and heat to help with areas of contusion and pain. Take the full course of antibiotics to treat for the UTI. Make sure you are drinking plenty of fluids and staying well-hydrated. Check back with your primary care provider about the frequent falls and urine infection. All discharge instructions reviewed with patient and/or family. Voiced understanding. Scripts Nitrofurantoin Monohyd/M-Cryst (Macrobid 100 mg Capsule) 100 Mg Capsule 1 TAB PO BID for UTI for 5 Days, #10 CAP 0 Refills Prov: ABDELRAHMAN PURI MD 01/19/23 ABDELRAHMAN PURI MD Jan 19, 2023 14:04
[2023-01-19] MEDS ORDERED: NITR-65 PO (14:52)
--- NOTE | 2023-01-19 15:06 | Diagnostic Imaging Report ---
PROCEDURE: CT head and CT cervical spine without contrast. TECHNIQUE: Multiple contiguous axial images were obtained through the brain and cervical spine without the use of intravenous contrast. Sagittal and coronal reformations through the cervical spine were then performed. Auto Exposure Controls were utilized during the CT exam to meet ALARA standards for radiation dose reduction. INDICATION: Trauma. Headache. Right-sided neck pain. Fall today. COMPARISON: CT head without contrast 08/05/2018. CT cervical spine 06/21/2018. FINDINGS: CT HEAD: Mild to moderate generalized volume loss and leukoaraiosis. No intracranial hemorrhage, mass effect, hydrocephalus or extra-axial fluid collections. No CT evidence of a territorial infarction. Osseous structures are intact. Paranasal sinuses and mastoids are clear. CT CERVICAL SPINE: Normal alignment. Vertebral body heights are preserved. No fractures. 360 degrees fusion with interbody grafting at C4-C6. No evidence of hardware failure. No CT evidence of high-grade spinal canal stenosis. No acute findings in the visualized paravertebral soft tissues. Lung apices are clear. Moderate atherosclerotic calcifications in the carotid bifurcations. IMPRESSION: No acute intracranial or cervical spine CT findings. Chronic findings as above. Dictated by: Dictated on workstation # [id number]
--- NOTE | 2023-01-19 15:13 | Diagnostic Imaging Report ---
KNEE 3 VIEW BILATERAL INDICATION: Bilateral knee pain COMPARISON: None available. TECHNIQUE: 3 views of each knee for total 6 views FINDINGS: Tricompartment osteoarthritis is present on both sides. No fracture or concerning focal osseous lesion on either side. Small bilateral knee joint effusions. No mineralized joint bodies. Extensive atherosclerotic calcifications are noted. IMPRESSION: 1. No acute osseous abnormality about either knee. 2. 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 Dictated by: Dictated on workstation # [id number]
[2023-01-19] MEDS ORDERED: NS IV 1000 ML 1,000 ML IV STA (16:04)
[2023-01-19 16:20] LABS: BASOPHILS # (AUTO) 0.1 10^3/uL (0.0-0.1); BASOPHILS % (AUTO) 1 % (0-10); EOSINOPHILS # (AUTO) 0.2 10^3/uL (0.0-0.3); EOSINOPHILS % (AUTO) 1 % (0-10); HEMATOCRIT 37 % (35-52); HEMOGLOBIN 11.4 g/dL (11.5-16.0); LYMPHOCYTES # (AUTO) 1.8 10^3/uL (1.0-4.0); LYMPHOCYTES % (AUTO) 15 % (12-44); MEAN CORPUSCULAR HEMOGLOBIN 30 pg (25-34); MEAN CORPUSCULAR HGB CONC 31 g/dL (32-36); MEAN CORPUSCULAR VOLUME 96 fL (80-99); MEAN PLATELET VOLUME 9.2 fL (9.0-12.2); MONOCYTES # (AUTO) 0.6 10^3/uL (0.0-1.0); MONOCYTES % (AUTO) 5 % (0-12); NEUTROPHILS # (AUTO) 9.1 10^3/uL (1.8-7.8); NEUTROPHILS % (AUTO) 77 % (42-75); PLATELET COUNT 237 10^3/uL (130-400); WHITE BLOOD COUNT 11.8 10^3/uL (4.3-11.0)
[2023-01-19 16:26] VITALS: BP_SYST 101; BP_SYST 90; BP_SYST 98; BP_DIAS 50; BP_DIAS 62
[2023-01-19 16:38] LABS: BILIRUBIN,TOTAL 0.2 MG/DL (0.1-1.0); CALCIUM 9.6 MG/DL (8.5-10.1); CARBON DIOXIDE 27 MMOL/L (21-32); CHLORIDE 100 MMOL/L (98-107); POTASSIUM 4.6 MMOL/L (3.6-5.0); SODIUM 140 MMOL/L (135-145); TOTAL PROTEIN 7.6 GM/DL (6.4-8.2)
[2023-01-19 16:46] LABS: ALANINE AMINOTRANSFERASE 23 U/L (0-55); ALBUMIN 4.1 GM/DL (3.2-4.5); ALKALINE PHOSPHATASE 58 U/L (40-136); BUN/CREATININE RATIO 17; CREATININE SERUM 1.14 MG/DL (0.60-1.30); GFR ESTIMATED 51; GLUCOSE 105 MG/DL (70-105)
[2023-01-19 17:03] VITALS: BP 102/51
== END 2023-01-19 17:03 | disposition home or self-care (01) ==
LOC: EDUNIT# 13:06 → ER FS 13:07
DX: S16.1XXA Strain of muscle, fascia and tendon at neck level, initial encounter (principal); S80.02XA Contusion of left knee, initial encounter; S80.01XA Contusion of right knee, initial encounter; N30.00 Acute cystitis without hematuria; G47.30 Sleep apnea, unspecified; E11.40 Type 2 diabetes mellitus with diabetic neuropathy, unspecified; Z99.89 Dependence on other enabling machines and devices; Z87.891 Personal history of nicotine dependence; Z79.4 Long term (current) use of insulin; W18.2XXA Fall in (into) shower or empty bathtub, initial encounter; W22.8XXA Striking against or struck by other objects, initial encounter; Y92.009 Unspecified place in unspecified non-institutional (private) residence as the place of occurrence of the external cause
CPT/HCPCS: 36415; 70450; 72125; 80053; 81000; 82947; 83605; 85025; 86141; 87040; 87077; 87088; 87186; 96360; 96372